=== PATIENT | female | born 1950 | race Caucasian/White ===

== ENCOUNTER 2019-10-22 07:23 | Outpatient (CLI) | payer MEDICARE, SELFPAY ==
--- NOTE | ~2019-10-22 | CT_ITS ---
EXAMINATION: CT brain wo con DATE: 10/22/2019 07:43 INDICATION: Memory loss. Frequent falls. TECHNIQUE: Computed tomography (CT) of the head was performed without intravenous contrast. The mA wa s adjusted according to patient size. Iterative reconstruction technique was employed. Exam dose: 60 5.33 mGy-cm total exam DLP. COMPARISON: None FINDINGS: No intracranial mass lesion or hemorrhage or cerebrovascular accident. No midline shift or mass effect. Normal ventricular size. No subdural or epidural hematoma. Bilateral internal carotid ar eduard calcifications. No subdural or epidural hematoma. No fracture or bone destruction of the cranial vault.. IMPRESSION: No acute intracranial finding or skull fracture Reviewed, dictated and finalized at [facility]. Reviewed, dictated and finalized at location A.
== END 2019-10-22 07:24 | disposition home or self-care (01) ==
LOC: ANHIMG 07:27
PROVIDERS: PCP Internal Medicine; Visit Provider Internal Medicine
DX: R41.3 Other amnesia (principal)
CPT/HCPCS: 70450

== ENCOUNTER 2019-11-04 07:48 | Outpatient (CLI) | payer MEDICARE, SELFPAY ==
--- NOTE | ~2019-11-04 | MM_ITS ---
EXAMINATION: MM screening denzel BI w norbert HISTORY: Screening mammogram TECHNIQUE: Craniocaudal and mediolateral oblique 3-D tomosynthesis images were obtained and synthetic 2-D images were generated. CAD analysis was submitted and interpreted. COMPARISON: 11/15/2016, 11/08/2014, 11/05/2013 bilateral digital screening mammogram examinations BREAST PARENCHYMAL COMPOSITION: There are scattered areas of fibroglandular density. FINDINGS: There is no evidence of suspicious mass, calcification, or architectural distortion to sugg est malignancy in either breast. There has been no suspicious interval change. IMPRESSION: 1. No mammographic evidence of malignancy. 2. Recommend routine screening mammography in one year. BI-RADS Category 1: Negative Reviewed, dictated and finalized at location A.
--- NOTE | ~2019-11-04 | DEXA_ITS ---
Bone Density Report Name: Winifred Rodriguez Age: 69 Sex: Female Ethnicity: White Date of : 1950 Indication: postmenopausal; parental hip fracture; height loss; prior fracture; asthma or emphysema; Referring Provider: Rodo, Eldon [place] Study: Bone densitometry was performed. Exam Date: November 04, 2019 Accession number: [id number] Bone Density: Region BMD T-score Z-score Classification AP Spine (L1, L2) 1.156 1.6 3.4 Normal Femoral Neck (Left) 0.751 -0.9 0.7 Normal Total Hip (Left) 0.939 0.0 1.3 Normal Total Hip Bilateral Avg 0.903 -0.3 1.0 Normal Femoral Neck (Right) 0.689 -1.4 0.2 Osteopenia Total Hip (Right) 0.865 -0.6 0.7 Normal World Health Organization criteria for BMD impression classify patients as: Normal (T-score at or above -1.0), Osteopenia (T-score between -1.0 and -2.5), or Osteoporosis (T-score at or below -2.5). 10-year Fracture Risk: FRAX not reported because: Prior hip or vertebral fracture Previous Exams: Region Exam Age BMD T-score BMD Change BMD Change Date g/cm2 vs Baseline vs Previous AP Spine(L1, L2) 11/04/2019 69 1.156 1.6 0.198(20.6%)# 0.198(20.6%)# 01/01/2012 61 0.959 -0.2 Total Hip(Left) 11/04/2019 69 0.939 0.0 -0.014(-1.4%)# -0.014(-1.4%)# 01/01/2012 61 0.952 0.1 Total Hip(Right) 11/04/2019 69 0.865 -0.6 -0.149(-14.7%) -0.149(-14.7%) 01/01/2012 61 1.014 0.6 *Denotes significance at 95% confidence level, LSC for AP Spine = 0.022 g/cm2, LSC for Total Hip = 0.027 g/cm2 Clinical Information Provided by Patient: Have had a previous hip or vertebral fracture Has had a low trauma fracture Parent has had a hip fracture Has used the following medications: Vitamin D, Calcium Has the following medical conditions: Asthma or Emphysema Patient maximum height was 67 Menopause Age: 52 Drinks caffeinated beverages Onset of menses at age 14 Number of children 0 Impression: The patient has low bone mass, based on the Right Femoral Neck T-score. The patient has risk factors, including: parental hip fracture, previous fracture. No significant bone loss was observed. Discussion: INCREASED RISK OF FRACTURE DUE TO HISTORY OF FRACTURE. The patient's previous fracture puts the patient at high risk of a future fracture. In untreated patients, the risk of osteoporotic fracture increases approximately two-fold for each 1.0 SD decrease in T-score. Low bone density is not the only risk factor for fracture; also co
== END 2019-11-04 07:49 | disposition home or self-care (01) ==
PROVIDERS: PCP Internal Medicine; Visit Provider Internal Medicine
DX: Z12.31 Encounter for screening mammogram for malignant neoplasm of breast (principal); Z78.0 Asymptomatic menopausal state; M85.851 Other specified disorders of bone density and structure, right thigh
CPT/HCPCS: 77063; 77067; 77080

== ENCOUNTER 2019-11-12 11:10 | Outpatient (CLI) | payer MEDICARE, SELFPAY ==
--- NOTE | ~2019-11-12 | MR_ITS ---
EXAMINATION: MR shoulder LT wo con DATE: 11/12/2019 12:01 INDICATION: Anterior left shoulder pain and limited range of motion. TECHNIQUE: Magnetic resonance imaging (MRI) of the left shoulder was performed without intravenous co ntrast. Sequences included axial PD-weighted FS FSE, coronal oblique PD-weighted FS FSE, coronal obli que T2-weighted FS FSE, sagittal PD-weighted FS FSE, and sagittal T1-weighted SE. COMPARISON: None. FINDINGS: Coracoacromial arch: The acromion undersurface is curved in morphology (type II). The coracoacromial ligament is normal. M oderate acromioclavicular osteoarthritis with subarticular cystic change at both sides of the joint s pace. There are also small inferiorly directed osteophytes at the lateral head of the right clavicle which indents the cephalad contour of the distal supraspinatus muscle. Rotator cuff: Moderate supraspinatus tendinopathy. There is attenuation of the tendon between 2 and 5 cm from the s uperior facet footplate with likely retracted medial tear margin identified approximately 2 cm medial to the level of the acromioclavicular joint consistent with a partial-thickness intrasubstance tear. There is a small amount of fluid and edema in the cephalad aspect of the supraspinatus muscle belly. Mild subscapularis and infraspinatus tendinopathy without discrete tear. The teres minor tendon is n ormal. No asymmetric rotator cuff muscle atrophy. Biceps tendon, glenoid labrum and glenohumeral cartilage: Long head of the biceps tendon is normal. Focal degenerative tearing at the 10:30-11:00 position of t he posterior superior glenoid labrum. Chondral ulceration without degenerative subarticular changes a t the apex of the right humeral head. Cartilage at the glenohumeral joint is otherwise unremarkable. Fluid: Physiologic amount of fluid in the glenohumeral joint and biceps tendon sheath. No loose osteochondra l bodies. Small amount of fluid in the subacromial/subdeltoid bursa consistent with mild bursitis. Bones: Normal marrow signal. No fracture or pathologic marrow replacing process. IMPRESSION: 1. 100 supraspinatus tendinopathy with partial-thickness intrasubstance tear occurring approximately 2 cm from the superior facet footplate. 2. Mild infraspinatus and subscapularis tendinopathy without discrete tear. 3. Mild glenohumeral osteoarthritis with regions of moderate grade chondral malacia at the apex of th e humeral head. 4. Degenerative tearing along a small region of the posterior superior glenoid labrum. 5. Moderate ac romioclavicular osteoarthritis. 6. Mild subacromial/subdeltoid bursitis. Reviewed, dictated and finalized at location A. IMPRESSION: 1. 100 supraspinatus tendinopathy with partial-thickness intrasubstance tear oc curring approximately 2 cm from the superior facet footplate. 2. Mild infraspinatus and subscapularis tendinopathy without discrete tear. 3. Mild glenohumeral osteoarthritis with regions of moderate grade chondral mal acia at the apex of the humeral head. 4. Degenerative tearing along a small region of the posterior superior glenoid labrum. 5. Moderate acromioclavicular osteoarthritis. 6. Mild subacromial/subdeltoid bursitis.
== END 2019-11-12 11:11 | disposition home or self-care (01) ==
PROVIDERS: PCP Internal Medicine; Visit Provider Nurse Practitioner Family
DX: M25.512 Pain in left shoulder (principal); S46.012A Strain of muscle(s) and tendon(s) of the rotator cuff of left shoulder, initial encounter; M65.812 Other synovitis and tenosynovitis, left shoulder; M19.012 Primary osteoarthritis, left shoulder; S43.432A Superior glenoid labrum lesion of left shoulder, initial encounter; M75.52 Bursitis of left shoulder
CPT/HCPCS: 73221

== ENCOUNTER → 2021-04-28 00:34 | Outpatient (CLI) | payer MEDICARE, SELFPAY ==
[2021-04-30 19:56] LABS: SARS-CoV-2 RNA PCR Negative
== END ==
PROVIDERS: PCP Internal Medicine
DX: J01.80 Other acute sinusitis (principal); Z20.822 Contact with and (suspected) exposure to COVID-19
CPT/HCPCS: C9803; U0003; U0005

== ENCOUNTER 2021-06-28 09:29 | Outpatient (CLI) | payer MEDICARE, SELFPAY ==
--- NOTE | ~2021-06-28 | XR_ITS ---
XR lumbar spine 6V w bending DATE: 06/28/2021 09:55 INDICATION: Sciatica TECHNIQUE: AP, lateral, coned lateral lumbosacral and bilateral oblique views. Flexion and extension lateral upright views. COMPARISON: None FINDINGS: Status post posterior surgical spinal fusion with pedicle screws and rods at L4-L5. There is osteopenia. There is severe degenerative disc disease at T12-L1 and moderately severe degenerative disc disease a t L1-2 and L2-3, mild degenerative disease at L4-5 and severe degenerative disc disease at L5-S1. There is grade 1 anterolisthesis at L4-5 and L5-S1. No significant instability on flexion or extensio n is evident. The sacroiliac joints are intact. Status post cholecystectomy. IMPRESSION: Status post posterior spinal fusion at L4-5 Multilevel prominent degenerative disc disease Grade 1 anterolisthesis at L4-5 and L5-S1 Osteopenia. Reviewed, dictated and finalized at location B. [employer]
== END 2021-06-28 09:30 | disposition home or self-care (01) ==
PROVIDERS: PCP Internal Medicine
DX: M53.86 Other specified dorsopathies, lumbar region (principal); M85.88 Other specified disorders of bone density and structure, other site; Z98.1 Arthrodesis status; M51.36 Other intervertebral disc degeneration, lumbar region
CPT/HCPCS: 72114

== ENCOUNTER 2022-03-10 16:57 | Emergency (ER) | payer MEDICARE, SELFPAY ==
[2022-03-10 17:07] VITALS: BP 145/100; PULSE 88; RESP 18; TEMP 37.3; O2SAT 100
--- NOTE | 2022-03-10 17:34 | ED.URI ---
HPI - URI/Sore Throat General Chief Complaint: Upper Respiratory Infection Stated Complaint: SOB, Wheezing, Cough Time Seen by Provider: 03/10/22 17:15 Source: patient Mode of arrival: ambulatory Limitations: no limitations History of Present Illness HPI Narrative: Ms. Rodriguez is a 71-year-old female patient presenting to the clinic today with complaints of shortness of breath, cough, wheezing x2 days. She reports that her symptoms started on Friday but she did not call her PCP as her symptoms got worse on Friday. States that every year she gets this then easily give her prednisone, albuterol, and a Z-Ollie. She denies any fever or chills currently. She does have a very wet congested cough MD elicited complaint: sore throat and nasal congestion Related Data Home Medications Medication Instructions Recorded Confirmed atorvastatin 20 mg tablet 05/27/19 05/08/21 duloxetine 60 mg capsule,delayed mg PO 05/27/19 05/08/21 release levothyroxine 150 mcg tablet 05/27/19 05/08/21 omeprazole 20 mg capsule,delayed 05/27/19 05/08/21 release pregabalin 50 mg capsule (Lyrica) 05/27/19 05/08/21 albuterol sulfate 90 mcg/actuation 1 puff inhalation Q4H PRN 10/08/19 05/08/21 aerosol inhaler (Ventolin HFA) ascorbate calcium (vitamin C) 500 500 mg PO BID 10/08/19 05/08/21 mg tablet mecobalamin (vitamin B12) 1,000 1,500 mcg PO DAILY 10/08/19 05/08/21 mcg chewable tablet celecoxib 200 mg capsule mg PO 11/05/19 05/08/21 cholecalciferol (vitamin D3) 25 20 mcg PO DAILY 11/05/19 05/08/21 mcg (1,000 unit) tablet diazepam 5 mg tablet (Valium) 10 mg PO ONCE PRN 11/05/19 05/08/21 multivitamin (Daily Multi-Vitamin 2 tablet PO DAILY 11/05/19 05/08/21 tablet) dulaglutide 0.75 mg/0.5 mL 0.75 mg subcut WEEKLY 05/08/21 05/08/21 [facility] ezetimibe 10 mg-rosuvastatin 10 mg 1 tablet PO DAILY 05/08/21 05/08/21 tablet Allergies Allergy/AdvReac Type Severity Reaction Status Date / Time clindamycin Allergy Unknown n/a Verified 03/10/22 17:28 codeine Allergy Unknown n/a Verified 03/10/22 17: Review of Systems Review of Systems: Pertinent positives per HPI. Patient denies any fever, chills, rash, headache, visual changes, dizziness, runny nose, sore throat, shortness of breath, chest pain, palpitations, nausea, vomiting, diarrhea, constipation, abdominal pain, or any urinary issues. [facility] Past Medical History Medical History Acute pain of both knees Acute pain of right shoulder Adhesive capsulitis of right shoulder Allergic rhinitis, unspecified Arthritis Body mass index (bmi) 36.0-36.9, adult (06/18/17) Body mass index (BMI) 45.0-49.9, adult (03/18/16) Complete tear of right rotator cuff Depression DJD of AC (acromioclavicular) joint Fibromyalgia muscle pain Gastroesophageal reflux disease Hypothyroidism MURIEL (obstructive sleep apnea) Osteoporosis Other chronic pain Pain in left knee Pes anserine bursitis Primary osteoarthritis of left knee Primary osteoarthritis of right knee Restless leg syndrome Rotator cuff tear Rotator cuff tendinitis Surgical History Surgical History History of cholecystectomy History of spinal fusion Presence of left artificial knee joint Presence of right artificial knee joint Family History Family History Mother Carcinoma of colon, Onset Age: 86 Father , COPD,Congestive heart failure COPD (chronic obstructive pulmonary disease) Congestive heart failure (CHF) Arthritis Other Cerebrovascular accident Family history of alcoholism Social History Social History Smoking status: Never smoker Second hand tobacco smoke exposure: Yes Alcohol intake: current Comments At the time o
== END 2022-03-10 17:40 | disposition home or self-care (01) ==
PROVIDERS: Emergency Provider Nurse Practitioner Family; PCP Internal Medicine
DX: J40 Bronchitis, not specified as acute or chronic (principal); M79.7 Fibromyalgia; K21.9 Gastro-esophageal reflux disease without esophagitis; E03.9 Hypothyroidism, unspecified; M17.0 Bilateral primary osteoarthritis of knee; G25.81 Restless legs syndrome; G47.33 Obstructive sleep apnea (adult) (pediatric); Z96.653 Presence of artificial knee joint, bilateral
CPT/HCPCS: 99213; G0463

== ENCOUNTER 2022-08-13 10:26 | Emergency (ER) | payer MEDICARE, SELFPAY ==
--- NOTE | 2022-08-13 10:29 | ED.URI ---
HPI - URI/Sore Throat General Chief Complaint: Ear Stated Complaint: ear pain Time Seen by Provider: 08/13/22 10:37 Source: patient, RN notes reviewed and old records reviewed Mode of arrival: ambulatory Limitations: no limitations History of Present Illness HPI Narrative: 72-year-old female presents to the [facility] with complaints of a right ear pain. Patient states that she was cleaning her ear out with a Q-tip on Friday, tripped and the Q-tip when in further. States she has been having pain and thick drainage from the right ear since. Onset (ago): day(s) (2) Related Data Home Medications Medication Instructions Recorded Confirmed atorvastatin 20 mg tablet 05/27/19 05/08/21 duloxetine 60 mg capsule,delayed mg PO 05/27/19 05/08/21 release levothyroxine 150 mcg tablet 05/27/19 05/08/21 omeprazole 20 mg capsule,delayed 05/27/19 05/08/21 release pregabalin 50 mg capsule (Lyrica) 05/27/19 05/08/21 albuterol sulfate 90 mcg/actuation 1 puff inhalation Q4H PRN 10/08/19 05/08/21 aerosol inhaler (Ventolin HFA) ascorbate calcium (vitamin C) 500 500 mg PO BID 10/08/19 05/08/21 mg tablet mecobalamin (vitamin B12) 1,000 1,500 mcg PO DAILY 10/08/19 05/08/21 mcg chewable tablet celecoxib 200 mg capsule mg PO 11/05/19 05/08/21 cholecalciferol (vitamin D3) 25 20 mcg PO DAILY 11/05/19 05/08/21 mcg (1,000 unit) tablet diazepam 5 mg tablet (Valium) 10 mg PO ONCE PRN 11/05/19 05/08/21 multivitamin (Daily Multi-Vitamin 2 tablet PO DAILY 11/05/19 05/08/21 tablet) ezetimibe 10 mg-rosuvastatin 10 mg 1 tablet PO DAILY 05/08/21 05/08/21 tablet Allergies Allergy/AdvReac Type Severity Reaction Status Date / Time clindamycin Allergy Unknown n/a Verified 03/10/22 17:28 codeine Allergy Unknown n/a Verified 03/10/22 17:28 nickel Allergy Unknown Verified 08/13/22 10:38 Review of Systems Review of Systems: All systems reviewed & are unremarkable except as noted in HPI and below Constitutional: Constitutional: Reports no additional constitutional complaints Eyes: Eyes: Reports no additional eye complaints ENT: Reports as per HPI and Reports otalgia (Right ear) Cardiovascular: Cardiovascular: Reports no additional cardiovascular complaints, Denies chest pain and Denies dyspnea Respiratory: Respiratory: Reports no additional respiratory complaints, Denies chest congestion, Denies cough and Denies dyspnea Gastrointestinal: Gastrointestinal: Reports no additional gastrointestinal complaints, Denies abdominal pain, Denies nausea and Denies vomiting Musculoskeletal: Musculoskeletal: Reports no additional musculoskeletal complaints Integumentary/Breasts: Skin/Breast: Reports system reviewed and no additional complaints, except as docu Neurologic: Reports system reviewed and no additional complaints, except as documented Psychiatric: Psychiatric: Reports no additional psychiatric complaints Allergic/Immunologic: Allergic/Immunologic: Reports no additional allergic/immunologic complaints PMFSH Past Medical History Medical History Acute pain of both knees Acute pain of right shoulder Adhesive capsulitis of right shoulder Allergic rhinitis, unspecified Arthritis Body mass index (bmi) 36.0-36.9, adult (06/18/17) Body mass index (BMI) 45.0-49.9, adult (03/18/16) Complete tear of right rotator cuff Depression DJD of AC (acromioclavicular) joint Fibromyalgia muscle pain Gastroesophageal reflux disease Hypothyroidism MURIEL (obstructive sleep apnea) Osteoporosis Other chronic pain Pain in left knee Pes anserine bursitis Primary osteoarthritis of left knee Primary osteoarthritis of right knee Restless leg syndrome Rotator cuff tear Rotator cuff tendinitis Surgical History Surgical History History of cholecystectomy History of spinal fusion Presence of left artificial knee joint Presence of right artificia
[2022-08-13 10:35] VITALS: BP 142/70; PULSE 80; RESP 16; TEMP 37; O2SAT 99
== END 2022-08-13 10:56 | disposition home or self-care (01) ==
PROVIDERS: Emergency Provider Nurse Practitioner; PCP Internal Medicine
DX: S09.21XA Traumatic rupture of right ear drum, initial encounter (principal); W22.8XXA Striking against or struck by other objects, initial encounter; H61.22 Impacted cerumen, left ear; M79.7 Fibromyalgia; K21.9 Gastro-esophageal reflux disease without esophagitis; E03.9 Hypothyroidism, unspecified; M81.0 Age-related osteoporosis without current pathological fracture; M17.0 Bilateral primary osteoarthritis of knee; G25.81 Restless legs syndrome; Z96.653 Presence of artificial knee joint, bilateral
CPT/HCPCS: 99213; G0463

== ENCOUNTER 2022-11-18 07:39 | Outpatient (CLI) | payer MEDICARE, SELFPAY ==
--- NOTE | ~2022-11-18 | MM_ITS ---
EXAMINATION: MM screening denzel BI w norbert HISTORY: Screening mammogram TECHNIQUE: Craniocaudal and mediolateral oblique 3-D tomosynthesis images were obtained and synthetic 2-D images were generated. CAD analysis was submitted and interpreted. COMPARISON: 11/04/2019, 11/15/2016, 11/08/2014 bilateral screening mammogram examinations BREAST PARENCHYMAL COMPOSITION: There are scattered areas of fibroglandular density. FINDINGS: Minimal calcification including arterial. There is no evidence of suspicious mass, calcific ation, or architectural distortion to suggest malignancy in either breast. There has been no suspicio us interval change. IMPRESSION: 1. No mammographic evidence of malignancy. 2. Recommend routine screening mammography in one year. BI-RADS Category 2: Benign finding(s). Reviewed, dictated and finalized at location C.
== END 2022-11-18 07:40 | disposition home or self-care (01) ==
LOC: ANHIMG 07:43
PROVIDERS: PCP Internal Medicine; Visit Provider Internal Medicine
DX: Z12.31 Encounter for screening mammogram for malignant neoplasm of breast (principal)
CPT/HCPCS: 77063; 77067

== ENCOUNTER 2024-02-11 08:21 | Emergency (ER) | payer MEDICARE, SELFPAY ==
[2024-02-11 08:31] VITALS: BP 96/81; PULSE 82; RESP 20; TEMP 36.5; O2SAT 98
--- NOTE | 2024-02-11 08:31 | ED.SKABFB ---
HPI - Skin/Abscess/Foreign Bdy General Chief complaint: Skin/Abscess/Foreign Body Stated complaint: Rash Time Seen by Provider: 02/11/24 08:32 Source: patient Mode of arrival: ambulatory Limitations: no limitations History of Present Illness HPI narrative: Patient is a 73-year-old female who presents with red raw rash under stomach fold on right side. Patient has been on Mounjaro and lost over 10 lb. Patient has used [id number] ointment with no relief. Reports it is very tender to touch. Related Data Home Medications Medication Instructions Recorded Confirmed atorvastatin 20 mg tablet 20 mg PO DAILY 05/27/19 02/11/24 duloxetine 60 mg capsule,delayed 60 mg PO DAILY 05/27/19 02/11/24 release levothyroxine 150 mcg tablet 150 mcg PO DAILY 05/27/19 02/11/24 omeprazole 20 mg capsule,delayed 20 mg PO DAILY 05/27/19 02/11/24 release pregabalin 50 mg capsule (Lyrica) 50 mg PO DAILY 05/27/19 02/11/24 ascorbate calcium (vitamin C) 500 500 mg PO BID 10/08/19 02/11/24 mg tablet mecobalamin (vitamin B12) 1,000 1,500 mcg PO DAILY 10/08/19 02/11/24 mcg chewable tablet celecoxib 200 mg capsule 200 mg PO DAILY 11/05/19 02/11/24 cholecalciferol (vitamin D3) 25 20 mcg PO DAILY 11/05/19 02/11/24 mcg (1,000 unit) tablet diazepam 5 mg tablet (Valium) 10 mg PO ONCE PRN Anxiety 11/05/19 02/11/24 multivitamin (Daily Multi-Vitamin 2 tablet PO DAILY 11/05/19 02/11/24 tablet) ezetimibe 10 mg-rosuvastatin 10 mg 1 tablet PO DAILY 05/08/21 02/11/24 tablet bupropion HCl 150 mg tablet,12 hr 150 mg PO BID 02/11/24 02/11/24 sustained-release metoprolol succinate 25 mg 25 mg PO DAILY 02/11/24 02/11/24 tablet,extended release 24 hr tirzepatide 2.5 mg/0.5 mL 2.5 mg subcut WEEKLY 02/11/24 02/11/24 subcutaneous pen injector (Mounjaro) Allergies Allergy/AdvReac Type Severity Reaction Status Date / Time clindamycin Allergy Unknown n/a Verified 02/11/24 08:24 codeine Allergy Unknown n/a Verified 02/11/24 08:24 nickel Allergy Unknown Verified 02/11/24 08:24 Review of Systems Review of Systems: All systems reviewed & are unremarkable except as noted in HPI and below Constitutional: Constitutional: Denies body ache(s), Denies chills, Denies fatigue, Denies fever(s), Denies headache(s), Denies malaise and Denies weakness Eyes: Eyes: Denies blurry vision, Denies irritation and Denies loss of vision ENT: Denies otalgia, Denies headache(s), Denies nasal discharge, Denies sinus pain and Denies sore throat Cardiovascular: Cardiovascular: Denies chest pain, Denies irregular heart rhythm and Denies dyspnea Respiratory: Respiratory: Denies dyspnea Gastrointestinal: Gastrointestinal: Denies abdominal pain, Denies melena, Denies hematochezia, Denies diarrhea, Denies nausea and Denies vomiting Musculoskeletal: Musculoskeletal: Denies back pain, Denies myalgias and Denies arthralgias Integumentary/Breasts: Skin/Breast: Denies pruritus, Reports erythema, Reports rash, Reports skin pain and Reports skin ulcer Neurologic: Denies headache(s), Denies loss of vision and Denies weakness Psychiatric: Psychiatric: Reports no additional psychiatric complaints Endocrine: Endocrine: Denies fatigue PMFSH Past Medical History Medical History Acute pain of both knees Acute pain of right shoulder Adhesive capsulitis of right shoulder Allergic rhinitis, unspecified Arthritis Body mass index (bmi) 36.0-36.9, adult (06/18/17) Body mass index (BMI) 45.0-49.9, adult (03/18/16) Complete tear of right rotator cuff Depression DJD of AC (acromioclavicular) joint Fibromyalgia muscle pain Gastroesophageal reflux disease Hypothyroidism MURIEL (obstructive sleep apnea) Osteoporosis Other chronic pain Pain in left knee Pes anserine bursitis Primary osteoarthritis of left knee Primary osteoarthritis of right knee Restless leg syndrome Rotator cuff tear Rotator cuff tendinitis Surgical Histor
== END 2024-02-11 08:55 | disposition home or self-care (01) ==
PROVIDERS: Emergency Provider Nurse Practitioner Family; PCP Internal Medicine
DX: B37.2 Candidiasis of skin and nail (principal); M79.7 Fibromyalgia; K21.9 Gastro-esophageal reflux disease without esophagitis; E03.9 Hypothyroidism, unspecified; M81.0 Age-related osteoporosis without current pathological fracture; M17.0 Bilateral primary osteoarthritis of knee
CPT/HCPCS: 99213; G0463

== ENCOUNTER 2024-05-15 09:50 | Emergency (ER) | payer MEDICARE, SELFPAY ==
--- NOTE | ~2024-05-15 | CT_ITS ---
EXAMINATION: CT brain wo con DATE: 05/15/2024 11:46 INDICATION: Closed head injury TECHNIQUE: Computed tomography (CT) of the head was performed without intravenous contrast. The mA wa s adjusted according to patient size. Iterative reconstruction technique was employed. Exam dose: 68 1.00 mGy-cm total exam DLP. COMPARISON: 10/22/2019 CT brain FINDINGS: No intracranial mass lesion or hemorrhage or cerebrovascular accident, midline shift or mas s effect. Bilateral carotid siphon internal carotid artery calcification. There is nonspecific diminished atten uation in the cerebral white matter, likely due to chronic small vessel ischemic changes. No subdural or epidural hematoma is detected. No fracture or apparent destruction of the cranial vault. The paranasal sinuses and mastoid air cells are normally developed and aerated IMPRESSION: Cerebral atherosclerosis and chronic small vessel ischemic changes or white matter No skull fracture or acute intracranial finding Reviewed, dictated and finalized at [facility]. Reviewed, dictated and finalized at [facility]. CONSULTANT
[2024-05-15 09:58] VITALS: BP 136/78; PULSE 86; RESP 20; TEMP 36.6; O2SAT 100
--- NOTE | 2024-05-15 11:29 | ED.HEATRA ---
HPI - Head Injury General Chief complaint: Head Injury Stated complaint: fall, head injury Time Seen by Provider: 05/15/24 11:24 History of Present Illness HPI Narrative: 73-year-old female presenting to the emergency room with a closed head injury. She slipped and fell on wet tile in her kitchen. She fell backwards on to the tile and sustained a laceration to her posterior occipital scalp. She does not lose consciousness, denies taking any blood thinner medications. Denies any headache or vision changes. No nausea, vomiting, altered mental status. She was otherwise in her normal state of health. She states it was a purely mechanical fall and she remember the events leading up to, during and after the fall. Patient is up-to-date on tetanus as far she knows, did have some bleeding on scene that is well controlled with direct pressure. Related Data Home Medications ?Medication ?Instructions ?Recorded ?Confirmed ?Last Taken ?Type atorvastatin 20 mg tablet 20 mg PO DAILY 05/27/19 02/11/24 Unknown History duloxetine 60 mg capsule,delayed 60 mg PO DAILY 05/27/19 02/11/24 Unknown History release levothyroxine 150 mcg tablet 150 mcg PO DAILY 05/27/19 02/11/24 Unknown History omeprazole 20 mg capsule,delayed 20 mg PO DAILY 05/27/19 02/11/24 Unknown History release pregabalin 50 mg capsule (Lyrica) 50 mg PO DAILY 05/27/19 02/11/24 Unknown History ascorbate calcium (vitamin C) 500 500 mg PO BID 10/08/19 02/11/24 Unknown History mg tablet mecobalamin (vitamin B12) 1,000 1,500 mcg PO DAILY 10/08/19 02/11/24 Unknown History mcg chewable tablet celecoxib 200 mg capsule 200 mg PO DAILY 11/05/19 02/11/24 Unknown History cholecalciferol (vitamin D3) 25 20 mcg PO DAILY 11/05/19 02/11/24 Unknown History mcg (1,000 unit) tablet diazepam 5 mg tablet (Valium) 10 mg PO ONCE PRN Anxiety 11/05/19 02/11/24 Unknown History multivitamin (Daily Multi-Vitamin 2 tablet PO DAILY 11/05/19 02/11/24 Unknown History tablet) ezetimibe 10 mg-rosuvastatin 10 mg 1 tablet PO DAILY 05/08/21 02/11/24 Unknown History tablet bupropion HCl 150 mg tablet,12 hr 150 mg PO BID 02/11/24 02/11/24 Unknown History sustained-release metoprolol succinate 25 mg 25 mg PO DAILY 02/11/24 02/11/24 Unknown History tablet,extended release 24 hr tirzepatide 2.5 mg/0.5 mL 2.5 mg subcut WEEKLY 02/11/24 02/11/24 Unknown History subcutaneous pen injector (Mounjaro) Allergies Allergy/AdvReac Type Severity Reaction Status Date / Time clindamycin Allergy Unknown n/a Verified 05/15/24 11:46 codeine Allergy Unknown n/a Verified 05/15/24 11:46 nickel Allergy Unknown Verified 05/15/24 11:46 Review of Systems Review of Systems: As reviewed above in [facility] Past Medical History Medical History Rotator cuff tendinitis Arthritis Osteoporosis Depression Hypothyroidism Rotator cuff tear Acute pain of both knees Acute pain of right shoulder Adhesive capsulitis of right shoulder Allergic rhinitis, unspecified Body mass index (bmi) 36.0-36.9, adult (06/18/17) Body mass index (BMI) 45.0-49.9, adult (03/18/16) Complete tear of right rotator cuff DJD of AC (acromioclavicular) joint Fibromyalgia muscle pain Gastroesophageal reflux disease MURIEL (obstructive sleep apnea) Other chronic pain Pain in left knee Pes anserine bursitis Primary osteoarthritis of left knee Primary osteoarthritis of right knee Restless leg syndrome Surgical History Surgical History History of spinal fusion History of cholecystectomy Presence of left artificial knee joint Presence of right artificial knee joint Family History Family History Mother Carcinoma of colon, Onset Age: 86 Father , COPD,Congestive heart failure COPD (chronic obstructive pulmonary disease) Congestive heart failure (CHF) Arthritis Other Cerebrovascular accident Family history of alcoholism Social History Social History Smoking status: Never smoker Second hand tobacco smoke exposure: Yes Alcohol intake: current Exam Narrative: GENERAL: [Well-appearing, well-nourished, and in no acute distress.] HEAD: Normocephalic, posterior occipital scalp does have a 2.5 cm linear laceration that goes to the skull, no active bleeding or depressed skull fracture, no significant tenderness with palpation. EYES: [PERRLA and EOMI.] ENT: Nares clear, no rhinorrhea or epistaxis. Mucous membranes moist. NECK: Supple. CHEST: [Clear to auscultation. No respiratory distress.] HEART: [Regular rate and rhythm]. No murmur heard. [Normal peripheral pulses.] ABDOMEN: [Soft, nondistended], [nontender], [No rigidity or guarding] EXTREMITIES: Normal range of motion. [No edema.] SKIN: Warm, dry, no rash. NEURO: [No focal deficits]. Alert and oriented [x3.] PSYCH: [Normal mood and affect.] Course Vital Signs Vital signs: Vital Signs Temperature 36.6 C 05/15/24 09:58 Pulse Rate 86 05/15/24 09:58 Respiratory Rate 20 05/15/24 09:58 Blood Pressure 136/78 05/15/24 09:58 Pulse Oximetry 100 05/15/24 09:58 Oxygen Delivery Room Air 05/15/24 09:58 Temperature 36.7 C 05/15/24 13:10 Pulse Rate 72 05/15/24 13:10 Respiratory Rate 17 05/15/24 13:10 Blood Pressure 136/87 05/15/24 13:10 Pulse Oximetry 98 05/15/24 13:10 Oxygen Delivery Room Air 05/15/24 09:58 Procedures Laceration Laceration 1: Date: 05/15/24 Time: 11:55 Site: scalp Size (cm): 2.5 Description: linear Depth: involves muscle layer Local Anesthetic: other anesthetic (Topical let gel) Amount of anesthesia used (mL): 3 Pre-repair: wound explored and irrigated extensively ====== Skin Level ====== Skin layer closed with: sophie Number of sutures: 9 ====== Subcutaneous Layer ====== ====== Muscle Layer ====== ====== Tendon Layer ====== Dressing: Pressure dressing MDM - Head Injury MDM Narrative Medical decision making narrative: 73-year-old female presenting for evaluation after closed head injury. She fell on slippery wet tile landing backwards onto her scalp. She has stated a 2.5 cm scalp laceration that requires repair with sophie. Scalp laceration goes go to the skull but there is no evidence of any depressed skull fracture any tenderness with palpation. No active bleeding. She did not lose consciousness, not any blood thinner medications. Given her age and elevated risk factors with the mechanism she does meet Alder head CT criteria at this time. CT head without contrast was ordered to assess for any kind intracranial process or skull fracture. Less likely given patient's well appearance and clinical exam. She has no focal deficits. Normal mentation normal vital signs. Let gel was applied to her posterior occipital scalp in her laceration was closed primarily with sophie prior to discharge home after negative imaging. Patient was provided return precautions and instructions on follow-up for staple removal and care. CT scan was independently reviewed and also interpreted by Radiology. No acute intracranial findings, no skull fracture. Chronic small-vessel disease. Patient's wound was repaired with hemostasis via sophie. She is stable and comfortable with discharge at this time. Given return precautions and instructions for follow-up for wound care. Differential Diagnosis Differential diagnosis: Likely concussion without loss of consciousness, epidural hematoma, closed head injury, subarachnoid hematoma, postconcussion syndrome, subdural hematoma and other Medical Records Attestation: I reviewed the patient's medical records. Imaging Data Attestation: I personally reviewed and interpreted this imaging study as follows: My impression: Impressions Head CT 05/15/24 11:48 IMPRESSION: Cerebral atherosclerosis and chronic small vessel ischemic changes or white matter No skull fracture or acute intracranial finding Discharge Plan Discharge Clinical Impression: CHI (closed head injury), Laceration of occipital region of scalp Patient Disposition: Home, Self-Care Condition: Stable Instructions: Head Injury (ED), Staple Care (ED), Head Laceration (ED) Additional Instructions: Follow-up in 10 days for suture removal. Return with any new or worsening concerns at any time. Apply direct pressure if there is any oozing or bleeding from the area, watch for any signs of infection. Follow-up with your regular primary care provider, return here, urgent care or your PCP for suture removal and wound check. Patient Language: Maltese Prescriptions: No Action atorvastatin 20 mg tablet 20 mg PO DAILY levothyroxine 150 mcg tablet 150 mcg PO DAILY omeprazole 20 mg capsule,delayed release(DR/EC) 20 mg PO DAILY duloxetine 60 mg capsule,delayed release(DR/EC) 60 mg PO DAILY pregabalin [Lyrica] 50 mg capsule 50 mg PO DAILY celecoxib 200 mg capsule 200 mg PO DAILY Patient Comments: Not taking as of provided medication list 11/04/19 Rx Instructions: Not taking as of provided medication list 11/04/19 bupropion HCl 150 mg tablet sustained-release 12 hr 150 mg PO BID metoprolol succinate 25 mg tablet extended release 24 hr 25 mg PO DAILY Mounjaro 2.5 mg/0.5 mL Pen Injector 2.5 mg SUBCUT WEEKLY Rx Instructions: for 4 weeks clotrimazole 1 % cream 1 applic topical BID 14 Days Qty: 30 0RF fluconazole 150 mg tablet 150 mg PO ONCE Qty: 2 0RF Rx Instructions: Take one today and one in a week mecobalamin (vitamin B12) 1,000 mcg tablet,chewable 1,500 mcg PO DAILY ascorbate calcium (vitamin C) 500 mg tablet 500 mg PO BID multivitamin [Daily Multi-Vitamin] Tablet 2 tablet PO DAILY cholecalciferol (vitamin D3) 25 mcg (1,000 unit) tablet 20 mcg PO DAILY ezetimibe-rosuvastatin 10-10 mg tablet 1 tablet PO DAILY diazepam [Valium] 5 mg tablet 10 mg PO ONCE PRN (Reason: Anxiety) Rx Instructions: Take 1 tab PO 1 hour before the procedure if no effect take the 2nd tab 30-45 mins after the first pill taken. ropinirole 2 mg tablet 2 mg PO QHS 90 Days Qty: 90 3RF Rx Instructions: Take 1 tablet by mouth with the 0.5mg tab 1-2 hours before bed. ropinirole 0.5 mg tablet See Rx Instructions .ROUTE .COMPLEX Qty: 90 3RF Dose Instruction: TAKE 1 TABLET BY MOUTH DAILY 1 TO 2 HOURS BEFORE BEDTIME WITH THE 2MG TABLET FOR A TOTAL DAILY DOSE OF 2.5MG Rx Instructions: TAKE 1 TABLET BY MOUTH DAILY 1 TO 2 HOURS BEFORE BEDTIME WITH THE 2MG TABLET FOR A TOTAL DAILY DOSE OF 2.5MG Follow-up/Referrals: Rodo,Eldon Canchola MD [Primary Care Provider] -
[2024-05-15] MEDS: LIDOCAINE, EPINEPHRINE, TETRACAINE VISCOUS SOLN 3 ML TOPICAL (11:51)
[2024-05-15 13:10] VITALS: BP 136/87; PULSE 72; RESP 17; TEMP 36.7; O2SAT 98
--- OUTSIDE RECORDS SUMMARY | 2024-05-22 16:58 | XMS_ITS | Encounter Summary ---
Author Organization [facility] Address [address] [place] [address] Care Team Providers Care Crm Coordinator Name Role Phone Eldon Koehler MD Primary Care Provider [phone] Encounter Details Date Type Department Care Team (Late st Contact Info) Description 11/18/2023 Orders Only [facility] Primary Care [place] [id number] [facility] [address] [place] [address] Provider, Abstract NO ADDRESS ON FILE Social History Tobacco Use Types Packs/Day Years Used Date Smoking Tobacco: Never Smokeless Tobacco: Never Alcohol Use Standard Drinks/Week Comments Never 0 (1 standard drink = 0.6 oz pur e alcohol) Social Connections Answer Date Recorded In a typical week, how many times do you talk on the phone with family, friends, or neighbors? More than three times a week 04/30/2019 How often do you get togethe r with friends or relatives? More than three times a week 04/30/2019 How often do you attend [facility] or amish services? More than 4 times per year 04/30/2019 Do you belong to any clubs o r organizations such as presybeterian groups, unions, fraternal or athletic groups, or school groups? No 04/30/2019 How often do you attend meet ings of the clubs or organizations you belong to? Never 04/30/2019 Are you , , di vorced, , never , or living with a partner? 04/30/2019 Financial Resource Strain Answer Date R ecorded How hard is it for you to pa y for the very basics like food, housing, medical care, and heating? Not hard at all 08/08/2021 Food Insecurity Answer Date Recorded In the past 12 months, have you worried that your food would run out before you had money to buy more? Never true 08/08/2021 In the past 12 months, did y ou run out of food and didn't have money to buy more? Never true 08/08/2021 Transportation Needs Answer Date Record ed In the past 12 months, has l ack of transportation kept you from medical appointments or from getting medications? No 08/08/2021 Lack of Transportation (Non-Medical) Not on file 08/08/2021 Sex and Gender Information Value Date Recorded Sex Assigned at Not on file Gender Identity Not on file Sexual Orientation Not on file documented as of this encounter Plan of Treatment Upcoming Encounters Date Type Department Care Team (Late st Contact Info) Description 07/27/2024 9:40 AM CDT Office Visit [facility] Primary Care [facility] [address] [place] [address] [address] [place] [address] Eldon Koehler MD [address] [facility] [address] [place] [address] documented as of this encounter Procedures Procedure Name Priority Date/Time Associated Diagnosis Comments EYE EXAM Routine 11/10/2023 3:13 PM CDT documented in this encounter Results * EYE EXAM (11/10/2023 3:13 PM CDT) Abstract Provider OPHTH OTHER [facility] INTERNAL MED [facility] CLIA# [id number] [address] [place] [address] [address] [place] [address] documented in this encounter Visit Diagnoses Not on filedocumented in this encounter Care Teams Crm Coordinator Relationship Specialty Start Date End Date Eldon Koehler MD PCP - General 10/06/07 documented as of this encounter
--- OUTSIDE RECORDS SUMMARY | 2024-05-22 16:58 | XMS_ITS | Encounter Summary ---
Author Organization [facility] Address [address] [place] [address] Care Team Providers Care Special Events Driver Name Role Phone Eldon Koehler MD Primary Care Provider [phone] Reason for Visit * Reason Onset Date Comments Medication Refill 12/24/2022 Encounter Details Date Type Department Care Team (Late st Contact Info) Description 12/24/2022 Refill [facility] Internal Medicine [address] [id number] Adriana Rubio, ANP [address] [facility] [address] [place] [id number] Fibromyalgia Social History Tobacco Use Types Packs/Day Years [...] week 04/30/2019 How often do you attend chur ch or anabaptist services? More than 4 times per year 04/30/2019 Do you belong to any clubs o r organizations such as yazidi groups, unions, fraternal or athletic groups, or [...] on file documented as of this encounter Miscellaneous Notes * Telephone Encounter - Stefanie Roca NP - 12/24/2022 3:17 PM CDT Requesting refill. pregabalin (LYRICA) 50 mg Capsule TAKE 1 CAPSULE BY MOUTH EVERY 12 HOURS Dispense: 180 Capsule, Refills: 3 ordered 02/07/2022 -- Eldon Koehler MD Last OV 07/09/2022 documented in this encounter Plan of Treatment Upcoming Encounters Date Type Department Care Team (Late st Contact Info) Description 07/27/2024 9:40 AM CDT Office Visit [facility] Primary Care [place] [place] [address] Eldon Koehler MD [address] [place] [address] [address] [place] [phone] documented as of this encounter Visit Diagnoses Diagnosis Fibromyalgia Mylagia and myositis, unspecified documented in this encounter Care Teams Special Events Driver Relationship Specialty Start Date End Date Eldon Koehler MD PCP - General 10/06/07 documented as of this encounter
--- OUTSIDE RECORDS SUMMARY | 2024-05-22 16:58 | XMS_ITS | Encounter Summary ---
Author Organization [facility] Address [address] [place] [address] Care Team Providers Care Warpman Name Role Phone Eldon Koehler MD Primary Care Provider [phone] Reason for Visit * Reason Comments Med Refill Encounter Details Date Type Department Care Team (Late st Contact Info) Description 12/04/2023 Refill [facility] Primary Care [facility] [address] [facility] [address] [place] [address] Stefanie Roca, JOSEPH [address] [place] [address] Other hyperlipidemia Social History Tobacco Use Types Packs/Day Years Used Date Smoking Tobacco: Never Passive Smoke Exposure: Never Smokeless Tobacco: Never Alcohol Use Standard [...] often do you attend chur ch or sikhism services? More than 4 times per year 04/30/2019 Do you belong to any clubs o r organizations such as judaism groups, unions, fraternal or athletic groups, or [...] Description 07/27/2024 9:40 AM CDT Office Visit [facility] Primary Care [address] [address] Eldon Koehler MD [address] [place] [address] documented as of this encounter Visit Diagnoses Diagnosis Other hyperlipidemia documented in this encounter Care Teams Warpman Relationship Specialty Start Date End Date Eldon Koehler MD PCP - General 10/06/07 documented as of this encounter
--- OUTSIDE RECORDS SUMMARY | 2024-05-22 16:58 | XMS_ITS | Encounter Summary ---
Author Organization [facility] Address [address] [place] [address] Care Team Providers Care Shipper Name Role Phone Eldon Koehler MD Primary Care Provider [phone] Encounter Details Date Type Department Care Team (Late st Contact Info) Description 01/30/2023 External Device Data STL ABSTRACTION Provider, Abstract NO ADDRESS ON FILE Social [...] 04/30/2019 How often do you attend chur or uatsdin services? More than 4 times per year 04/30/2019 Do you belong to any clubs o r organizations such as uatsdin groups, unions, fraternal or athletic groups, or [...] Description 07/27/2024 9:40 AM CDT Office Visit [facility] Primary Care [place] [place] [address] Eldon Koehler MD [address] [place] [address] [place] [address] documented as of this encounter Visit Diagnoses Not on filedocumented in this encounter Care Teams Shipper Relationship Specialty Start Date End Date Eldon Koehler MD PCP - General 10/06/07 documented as of this encounter
--- OUTSIDE RECORDS SUMMARY | 2024-05-22 16:58 | XMS_ITS | Encounter Summary ---
Author Organization [facility] Address [address] [place] [address] Care Team Providers Care Metal Melter Name Role Phone Eldon Koehler MD Primary Care Provider [phone] Encounter Details Date Type Department Care Team (Late st Contact Info) Description 01/07/2024 External Device Data STL ABSTRACTION Provider, Abstract [...] often do you attend chur ch or adventism services? More than 4 times per year 04/30/2019 Do you belong to any clubs o r organizations such as hindu groups, unions, fraternal or athletic groups, or [...] Description 07/27/2024 9:40 AM CDT Office Visit [facility] Care [place] [address] [place] [address] Eldon Koehler MD [address] [place] [address] [place] [address] documented as of this encounter Visit Diagnoses Not on filedocumented in this encounter Care Teams Metal Melter Relationship Specialty Start Date End Date Eldon Koehler MD PCP - General 10/06/07 documented as of this encounter
--- OUTSIDE RECORDS SUMMARY | 2024-05-22 16:58 | XMS_ITS | Encounter Summary ---
Author Organization [facility] Address [address] [place] [address] Care Team Providers Care Crown Buffer Name Role Phone Eldon Koehler MD Primary Care Provider [phone] Reason for Visit * Reason Comments Results Medication Review Encounter Details Date Type Department Care Team (Late st Contact Info) Description 01/01/2022 11:20 AM CDT Office Visit [facility] Primary Care [address] [place] [address] Eldon Koehler MD [address] [place] [address] [address] [place] [address] Need for influenza vaccination (Primary Dx); Type 2 diabetes mellitus without complication, 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 More than 4 times per year 04/30/2019 Do you belong to any clubs o r organizations such as yarsanism groups, unions, fraternal or athletic groups, or [...] on file Sexual Orientation Not on file COVID-19 Exposure Response Date Recorded In the last 10 days, have yo u been in contact with someone who was confirmed or suspected to have Coronavirus/COVID-19? No / Unsure 01/01/2022 11:08 AM CDT documented as of this encounter Last Filed Vital Signs Vital Sign Reading Time Taken Comments Blood Pressure 130/84 01/01/2022 11:30 AM CDT Pulse 82 01/01/2022 11:30 AM CDT Temperature - - Respiratory Rate - - Oxygen Saturation 97% 01/01/2022 11:30 AM CDT Inhaled Oxygen Concentration - - Weight 117.5 kg (259 lb) 01/01/2022 11:30 AM CDT Height 167.6 cm (5' 6 ) 01/01/2022 11:30 AM CDT Body Mass Index 41.8 01/01/2022 11:30 AM CDT documented in this encounter Progress Notes * Eldon Koehler MD - 01/01/2022 12:00 PM CDT Hpi Flare fibromyalgia djd pain Wt gain Not using cpap regularly Bp ok Chol ok Med reviewed Recent lab reviewed Patient Active Problem List Diagnosis Code Hyperlipemia E78.5 Recurrent major depressive disorder, in partial remission F33.41 Osteoarthritis M19.90 Hypothyroidism E03.9 Headache(784.0) R51 Backache, unspecified M54.9 Asthma J45.909 Sleep apnea G47.30 Impaired fasting glucose R73.01 Restless leg syndrome G25.81 GERD (gastroesophageal reflux disease) K21.9 Fibromyalgia M79.7 Hyperhidrosis R61 Meralgia paresthetica G57.10 Obesity (BMI 35.0-39.9 without comorbidity) E66.9 Prediabetes R73.03 exam BP 130/84 Pulse 82 Ht 5' 6 (1.676 m) Wt 117.5 kg (259 lb) SpO2 97% BMI 41.80 kg/m?? General appearance: over wt nad Head: Normocephalic, without obvious abnormality, atraumatic Eyes: conjunctivae/corneas clear. PERRLA, EOM's intact. Lids appear normal. Ears: normal TM's (shiny without retraction) and external ear canals AU. No apparent lesions or masses. Hearing grossly normal. Nose: mask Throat: mask Neck: supple, symmetrical, trachea midline, no lymphadenopathy, and thyroid: not enlarged, symmetric, no tenderness/mass/nodules. Lungs: breath sounds equal, clear to auscultation bilaterally, no retractions, no stridor, normal respiratory effort Heart: regular rate and rhythm Abdomen: soft, non-tender. Bowel sounds normal. No masses, no organomegaly. Active bowel sounds. Skin: Skin color, texture, turgor normal. Lymphatics: No focal or generalized lymphadenopathy. Neck Ext no edema Diabetic foot exam: Visual: no ulceration and no callous formation Sensory:normal monofilament testing Pulses: normal bilaterally Mood stable ASSESSMENT: Encounter Diagnoses Name Primary? Type 2 diabetes mellitus without complication, unspecified whether intermediate insulin use Vitamin B12 deficiency (non anemic) Other hyperlipidemia Recurrent major depressive disorder, in partial remission Mild intermittent asthma without complication Other specified hypothyroidism Need for influenza vaccination Yes Other sleep apnea Dm add carmelo for now sample given , cost issue Trulcity Depn cont med Sleep apnea cpap adviseed Add b12 daily Asthma flu vac Thyroid stable Fibro , djd, steroid x 1 Consider inc lyrica Gerd stable cont med PLAN: Orders Placed This Encounter Influenza Vaccine High Dose quadrivalent 65 yr up PF IM CBC WITHOUT DIFFERENTIAL (Favorites) COMPREHENSIVE METABOLIC PANEL (Favorites) LIPID PANEL (Favorites) TSH (Favorites) VITAMIN B12 LEVEL (Chemistry) MICROALBUMIN/CREATININE RATIO, RANDOM UR (Favorites) [place] ADMIN INFLUENZA VIRUS VAC DISCONTD: predniSONE (DELTASONE) 10 mg tablet predniSONE (DELTASONE) 10 mg tablet documented in this encounter Plan of Treatment Upcoming Encounters Date Type Department Care Team (Late st Contact Info) Description 07/27/2024 9:40 AM CDT Office Visit [facility] Care [address] [place] [address] Eldon Koehler MD [address] [place] [address] documented as of this encounter Procedures Procedure Name Priority Date/Time Associated Diagnosis Comments MICROALBUMIN/CREATINI NE RATIO, RANDOM UR Routine 07/02/2022 8:21 AM FIBER MACHINE TENDER CBC WITHOUT DIFFERENTIAL Routine 07/02/2022 8:21 AM FIBER MACHINE TENDER Vitamin B12 deficiency (non anemic) TSH Routine 07/02/2022 8:21 AM FIBER MACHINE TENDER Other hyperlipidemia VITAMIN B12 LEVEL Routine 07/02/2022 8:2 1 AM FIBER MACHINE TENDER Vitamin B12 deficiency (non anemic) LIPID PANEL Routine 07/02/2022 8:21 AM FIBER MACHINE TENDER Other hyperlipidemia COMPREHENSIVE METABOLIC PANEL Routine 07/02/2022 8:21 AM FIBER MACHINE TENDER Other hyperlipidemia documented in this encounter Results * MICROALBUMIN/CREATININE RATIO, RANDOM UR (07/02/2022 8:21 AM FIBER MACHINE TENDER) Creatinine, Urine 207 20 - 275 mg/dL [facility] MICROALBUMIN, URINE 1.3 See Note: mg/dL [facility] Comment: Reference Range: Reference Range Not established MICROALBUMIN/CREAT RATIO, UR 6 <30 mcg/mg creat [facility] Comment: The ADA defines abnormalities in albumin excretion as follows: Albuminuria Category ?Result (mcg/mg creatinine) Normal to Mildly increased ?? <30 Moderately increased ? 30-299 Severely increased ? > OR = 300 The ADA recommends that at least two of three specimens collected within a 3-6 month period be abnormal before considering a patient to be within a diagnostic category. FASTING:YES FASTING: YES Test Performed at: [facility] ??[phone] Marty Duckworth MD 07/02/2022 8:21 AM FIBER MACHINE TENDER 07/02/2022 8:21 AM FIBER MACHINE TENDER Eldon Koehler MD URINE ORDERABLES Performing Organization Address City/[facility]/ZIP Co de Phone Number [facility] [phone] [address] * (ABNORMAL) VITAMIN B12 LEVEL (07/02/2022 8:21 AM FIBER MACHINE TENDER) VITAMIN B12 1795(H) 200 - 1100 pg/mL [facility] Comment: FASTING:YES FASTING: YES Test Performed at: [facility] ??[phone] Marty Duckworth MD Blood 07/02/2022 8:21 AM FIBER MACHINE TENDER 07/02/2022 8:21 AM FIBER MACHINE TENDER Eldon Koehler MD CHEMISTRY ORDERABLES Performing Organization Address City/[facility]/ZIP Co de Phone Number [facility] [phone] [address] * TSH (07/02/2022 8:21 AM FIBER MACHINE TENDER) TSH 2.22 0.40 - 4.50 mIU/L [facility] Comment: FASTING:YES FASTING: YES Test Performed at: [facility] [address] [place] ??[address] Marty Duckworth MD Blood 07/02/2022 8:21 AM FIBER MACHINE TENDER 07/02/2022 8:21 AM FIBER MACHINE TENDER Eldon Koehler MD CHEMISTRY ORDERABLES [facility] [phone] [facility] [address] [place] [address] * LIPID PANEL (07/02/2022 8:21 AM FIBER MACHINE TENDER) CHOLESTEROL 157 <200 mg/dL [facility] HDL 56 > OR = 50 mg/dL [facility] TRIGLYCERIDE 110 <150 mg/dL [facility] LDL CALCULATED 80 mg/dL (calc) [facility] Comment: Reference range: <100 Desirable range <100 mg/dL for primary prevention; ?? <70 mg/dL for patients with CHD or diabetic patients with > or = 2 CHD risk factors. LDL-C is now calculated using the Christopher-Марина calculation, which is a validated novel method providing better accuracy than the Friedewald equation in the estimation of LDL-C. Christopher SS et al. ERLIN. 2013;310(19): 3993-1687 (http://education.Scoop.it.AMW Foundation/faq/UMF211) CHOL/HDL RATIO 2.8 <5.0 (calc) [facility] TOTAL NON-HDL CHOL(LDL+VLDL) 101 <130 mg/dL (calc) [facility] Comment: For patients with diabetes plus 1 major ASCVD risk factor, treating to a non-HDL-C goal of <100 mg/dL (LDL-C of <70 mg/dL) is considered a therapeutic option. FASTING:YES FASTING: YES Test Performed at: [facility] [address] [place] ??[address] Marty Duckworth MD Blood 07/02/2022 8:21 AM FIBER MACHINE TENDER 07/02/2022 8:21 AM FIBER MACHINE TENDER Eldon Koehler MD CHEMISTRY ORDERABLES [facility] [phone] [email or web address] [address] [place] [address] * COMPREHENSIVE METABOLIC PANEL (07/02/2022 8:21 AM FIBER MACHINE TENDER) GLUCOSE 95 65 - 99 mg/dL [facility] Comment: ? Fasting reference interval BUN 13 7 - 25 mg/dL [facility] CREATININE 0.83 0.50 - 1.05 mg/dL [facility] GFR 76 > OR = 60 mL/min/1. 73m2 [facility] Comment: The eGFR is based on the CKD-EPI 2020 equation. To calculate the new eGFR from a previous Creatinine or Cystatin C result, go to https://www.kidney.org/professionals/ kdoqi/gfr%5Fcalculator BUN/CREAT RATIO NOT APPLICABLE 6 - (calc) [facility] SODIUM 141 135 - 146 mmol/L [facility] POTASSIUM 4.3 3.5 - 5.3 mmol/L [facility] CHLORIDE 106 98 - 110 mmol/L [facility] CO2 30 20 - 32 mmol/L [facility] CALCIUM 9.0 8.6 - 10.4 mg/dL [facility] TOTAL PROTEIN 6.5 6.1 - 8.1 g/dL [facility] ALBUMIN 3.9 3.6 - 5.1 g/dL [facility] GLOBULIN 2.6 1.9 - 3.7 g/dL (calc) [facility] ALBUMIN/GLOBULI N RATIO 1.5 1.0 - 2.5 (calc) [facility] BILIRUBIN TOTAL 0.7 0.2 - 1.2 mg/dL [facility] ALKALINE PHOSPHATASE 135 37 - 153 U/L [facility] AST 20 10 - 35 U/L [facility] ALT 17 6 - 29 U/L [facility] Comment: FASTING:YES FASTING: YES Test Performed at: [facility] ??[phone] Marty Duckworth MD Blood 07/02/2022 8:21 AM FIBER MACHINE TENDER 07/02/2022 8:21 AM FIBER MACHINE TENDER Eldon Koehler MD CHEMISTRY ORDERABLES [facility] [phone] [facility] [address] * (ABNORMAL) CBC WITHOUT DIFFERENTIAL (07/02/2022 8:21 AM FIBER MACHINE TENDER) WBC 7.2 3.8 - 10.8 Thousand/u L [facility] RBC 4.41 3.80 - 5.10 Million/uL [facility] HEMOGLOBIN 12.1 11.7 - 15.5 g/dL [facility] HEMATOCRIT 38.9 35.0 - 45.0 % [facility] MCV 88.2 80.0 - 100.0 fL [facility] MCH 27.4 27.0 - 33.0 pg [facility] MCHC 31.1(L) 32.0 - 36.0 g/dL [facility] RDW 12.9 11.0 - 15.0 % [facility] PLATELETS 329 140 - 400 Thousand/u L [facility] MPV 10.6 7.5 - 12.5 fL [facility] Comment: FASTING:YES FASTING: YES Test Performed at: [facility] ??[phone] Marty Duckworth MD Blood 07/02/2022 8:21 AM FIBER MACHINE TENDER 07/02/2022 8:21 AM FIBER MACHINE TENDER Eldon Koehler MD HEMATOLOGY ORDERABLE S [facility] [phone] [facility] [address] [place] [address] documented in this encounter Visit Diagnoses Diagnosis Need for influenza vaccination- Primary Need for prophylactic vaccination and inoculation against influenza Type 2 diabetes mellitus without complication, 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 Vitamin B12 deficiency (non anemic) Other B-complex deficiencies Other hyperlipidemia Recurrent major depressive disorder, in partial remission Mild intermittent asthma without complication Unspecified asthma Other specified hypothyroidism Other sleep apnea Gastroesophageal reflux disease without esophagitis Esophageal reflux documented in this encounter Additional Health Concerns Assessment Noted Time PHQ-9 Depression Total Score: 2 08/09/19 22 10:17 AM CDT documented as of this encounter Care Teams Crown Buffer Relationship Specialty Start Date End Date Eldon Koehler MD PCP - General 10/06/07 documented as of this encounter
--- OUTSIDE RECORDS SUMMARY | 2024-05-22 16:58 | XMS_ITS | Encounter Summary ---
Author Organization [facility] Address [address] [place] [address] Care Team Providers Care Gear Lapper Name Role Phone Eldon Koehler MD Primary Care Provider [phone] Reason for Referral * Medication Prior Authorization - Authorized Specialty Diagnoses / Procedures Referred By Contac t Referred To Contact Eldon Koehler MD [address] [place] [address] Referral ID Status Reason Start Date Expiration Date V isits Requested Visits Authorized [id number] Authorized 03/08/2024 05/11/2024 1 1 Reason for Visit * Reason Comments Medication Refill Encounter Details Date Type Department Care Team (Late st Contact Info) Description 02/20/2024 Refill [facility] Primary Care [address] [place] [address] Eldon Koehler MD [address] [place] [address] [address] [place] [address] Social History Tobacco Use Types Packs/Day Years [...] How often do you attend chur or cheondoism services? More than 4 times per year 04/30/2019 Do you belong to any clubs o r organizations such as orthodoxy groups, unions, fraternal or athletic groups, or [...] encounter Miscellaneous Notes * Telephone Encounter - Maria E Prince - 02/20/2024 2:12 PM CDT Copied from [facility] #[id number]. Topic: Medication Request >> Feb 20, 2024 2:10 PM Maria E Dietrich wrote: Medication Refill Request from: Patient/Caregiver Did the patient/caregiver contact their pharmacy for refill prior to calling? Yes Medication (Ask patient/caregiver to spell if possible): DispRefillsStartEnd tirzepatide (Mounjaro) 2.5 mg/0.5 mL Pen Injector0.5 mL01- Sig: Lot: [id number] ex: 01/30/2025 qty: 1 Class: Sample Preferred Pharmacy: [id number] - [facility] [address] [facility] [address] Hours: Not open 24 hours Patient/Caregiver Callback Number: [phone] (mobile) Call Notes: refill, [facility] is currently out of prescription documented in this encounter Plan of Treatment Upcoming Encounters Date Type Department Care Team (Late st Contact Info) Description 07/27/2024 9:40 AM CDT Office Visit [facility] Primary Care [address] [place] [address] Eldon Koehler MD [address] [place] [address] documented as of this encounter Visit Diagnoses Not on filedocumented in this encounter Care Teams Gear Lapper Relationship Specialty Start Date End Date Eldon Koehler MD PCP - General 10/06/07 documented as of this encounter
--- OUTSIDE RECORDS SUMMARY | 2024-05-22 16:58 | XMS_ITS | Encounter Summary ---
Author Organization [facility] Address [address] [place] [address] Care Team Providers Care Shoe Caser Name Role Phone Eldon Koehler MD Primary Care Provider [phone] Encounter Details Date Type Department Care Team (Late st Contact Info) Description 01/06/2024 External Device Data STL ABSTRACTION Provider, Abstract [...] often do you attend chur ch or denominational services? More than 4 times per year 04/30/2019 Do you belong to any clubs o r organizations such as temple groups, unions, fraternal or athletic groups, or [...] Description 07/27/2024 9:40 AM CDT Office Visit [facility] Care [address] [place] [address] Eldon Koehler MD [address] [place] [address] [place] [address] documented as of this encounter Visit Diagnoses Not on filedocumented in this encounter Care Teams Shoe Caser Relationship Specialty Start Date End Date Eldon Koehler MD PCP - General 10/06/07 documented as of this encounter
--- OUTSIDE RECORDS SUMMARY | 2024-05-22 16:58 | XMS_ITS | Encounter Summary ---
Author Organization [facility] Address [address] [place] [address] Care Team Providers Care Merchandise Flow Associate Name Role Phone Eldon Koehler MD Primary Care Provider Encounter Details Date Type Department Care Team (Late st Contact Info) Description 08/12/2023 External Device Data STL ABSTRACTION Provider, Abstract [...] often do you attend chur ch or yarsanism services? More than 4 times per year 04/30/2019 Do you belong to any clubs o r organizations such as adventist groups, unions, fraternal or athletic groups, or [...] Description 07/27/2024 9:40 AM CDT Office Visit [facility] Primary Care [address] [place] [address] Eldon Koehler MD [address] [place] [address] [place] [address] documented as of this encounter Visit Diagnoses Not on filedocumented in this encounter Care Teams Merchandise Flow Associate Relationship Specialty Start Date End Date Eldon Koehler MD PCP - General 10/06/07 documented as of this encounter
--- OUTSIDE RECORDS SUMMARY | 2024-05-22 16:58 | XMS_ITS | Encounter Summary ---
Author Organization [facility] Address [address] [place] [address] Care Team Providers Care Physiotherapy Practice Manager Name Role Phone Eldon Koehler MD Primary Care Provider [phone] Encounter Details Date Type Department Care Team (Late st Contact Info) Description 06/07/2023 External Device Data STL ABSTRACTION Provider, Abstract [...] How often do you attend chur or anglican services? More than 4 times per year 04/30/2019 Do you belong to any clubs o r organizations such as zoroastrian groups, unions, fraternal or athletic groups, or [...] Description 07/27/2024 9:40 AM CDT Office Visit [facility] Primary Care [address] [place] [address] Eldon Koehler MD [address] [place] [address] [place] [address] documented as of this encounter Visit Diagnoses Not on filedocumented in this encounter Care Teams Physiotherapy Practice Manager Relationship Specialty Start Date End Date Eldon Koehler MD PCP - General 10/06/07 documented as of this encounter
--- OUTSIDE RECORDS SUMMARY | 2024-05-22 16:58 | XMS_ITS | Encounter Summary ---
Author Organization [facility] Address [address] [place] [address] Care Team Providers Care Hims Manager Name Role Phone Eldon Koehler MD Primary Care Provider [phone] Reason for Referral * Eval and Treat (Routine) - Open Specialty Diagnoses / Procedures Referred By Carmen villalobos Referred To Contact Dermatology Diagnoses Rash Procedures MA OFFICE/OUTPATIENT ESTABLISHED MOD MDM 30 MIN MA OFFICE/OUTPATIENT NEW MODERATE MDM 45 MINUTES Eldon Koehler MD [address] [place] [address] Referral ID Status Reason Start Date Expiration Date Visits Re quested Visits Authorized [id number] Open 03/01/2024 03/01/2025 1 1 Reason for Visit * Reason Comments Ed Follow-up Gave medication for yeast infection and spreading Encounter Details Date Type Department Care Team (Late st Contact Info) Description 03/01/2024 3:40 PM CDT Office Visit [facility] Primary Care [address] [place] [address] Eldon Koehler MD [address] [place] [address] [address] [place] [address] Screening mammogram, encounter for (Primary Dx); Rash; Type 2 diabetes mellitus without complication, without long-term current use of insulin; Recurrent major depressive disorder, in partial remission Social History Tobacco Use Types Packs/Day Years Used Date Smoking Tobacco: Never Passive Smoke Exposure: Never Smokeless Tobacco: Never Tobacco Cessation:Counseling Given: No Alcohol Use Standard Drinks/Week Comments Never 0 [...] often do you attend chur ch or uatsdin services? More than 4 times per year 04/30/2019 Do you belong to any clubs o r organizations such as yazidism groups, unions, fraternal or athletic groups, or [...] on file documented as of this encounter Last Filed Vital Signs Vital Sign Reading Time Taken Comments Blood Pressure 126/78 03/01/2024 3:29 PM CDT Pulse 94 03/01/2024 3:29 PM CDT Temperature - - Respiratory Rate - - Oxygen Saturation 95% 03/01/2024 3:29 PM CDT Inhaled Oxygen Concentration - - Weight 106.1 kg (233 lb 12.8 oz) 03/01/2024 3:29 PM CDT Height 170.2 cm (5' 7 ) 03/01/2024 3:29 PM CDT Body Mass Index 36.62 03/01/2024 3:29 PM CDT documented in this encounter Progress Notes * Eldon Koehler MD - 03/01/2024 4:01 PM CDT Hpi High stress Inc rash breasts Pannus Noted when lost wt Antifungal not helping Very itchy Patient Active Problem List Diagnosis Code Hyperlipemia E78.5 Recurrent major depressive disorder, in partial remission F33.41 Osteoarthritis M19.90 Hypothyroidism E03.9 Headache(784.0) R51 Backache, unspecified M54.9 Asthma J45.909 Sleep apnea G47.30 Impaired fasting glucose R73.01 Restless leg syndrome G25.81 GERD (gastroesophageal reflux disease) K21.9 Fibromyalgia M79.7 Hyperhidrosis R61 Meralgia paresthetica G57.10 Obesity (BMI 35.0-39.9 without comorbidity) E66.9 Prediabetes R73.03 Frail elderly R54 Type 2 diabetes mellitus without complication E11.9 Exam BP 126/78 Pulse 94 Ht 5' 7 (1.702 m) Wt 106.1 kg (233 lb 12.8 oz) SpO2 95% BMI 36.62 kg/m?? General appearance: lost wt, pt upset Head: Normocephalic, without obvious abnormality, atraumatic Lungs: breath sounds equal, clear to auscultation bilaterally, no retractions, no stridor, normal respiratory effort Heart: regular rate and rhythm Abdomen: soft, non-tender. Bowel sounds normal. Skin eczematous rash under breasts, pannus Lymphatics: No focal or generalized lymphadenopathy. Neck Ext no edema Mood stable ASSESSMENT: Encounter Diagnoses Name Primary? Screening mammogram, encounter for Yes Rash Type 2 diabetes mellitus without complication, without long-term current use of insulin Recurrent major depressive disorder, in partial remission Rash not responding to clotrimazole Hx eczema?? Medrol x 1 lotrisone Refer derm Dm stable Recheck lab Shanika reviewed Memory issues worse with inc stress Neuro consult pend Depression continue med reviewed Mammo pend rash PLAN: Orders Placed This Encounter Generic Referral to Dermatology methylPREDNISolone (MEDROL DOSPACK) 4 mg Tablets, Dose Pack clotrimazole-betamethasone (LOTRISONE) 1-0.05 % Cream ketoconazole (NIZORAL) 2 % Shampoo documented in this encounter Plan of Treatment Upcoming Encounters Date Type Department Care Team (Late st Contact Info) Description 07/27/2024 9:40 AM CDT Office Visit [facility] [address] [place] [address] Eldon Koehler MD [address] [place] [address] [address] [place] [address] Scheduled Referrals Name Type Priority Associated Diagnoses Order Schedule AMB REFERRAL TO DERMATOLOGY Outpatient Referral Routine Rash Ordered: 03/01/2024 documented as of this encounter Visit Diagnoses Diagnosis Screening mammogram, encounter for- Primary Rash Rash and other nonspecific skin eruption Type 2 diabetes mellitus without complication, without long-term current use of insulin Recurrent major depressive disorder, in partial remission documented in this encounter Care Teams Hims Manager Relationship Specialty Start Date End Date Eldon Koehler MD PCP - General 10/06/07 documented as of this encounter
--- OUTSIDE RECORDS SUMMARY | 2024-05-22 16:58 | XMS_ITS | Encounter Summary ---
Author Organization [facility] Address [address] [place] [address] Care Team Providers Care Web Analyst Name Role Phone Eldon Koehler MD Primary Care Provider [phone] Encounter Details Date Type Department Care Team (Late st Contact Info) Description 07/04/2023 Orders Only [facility] Primary Care [address] [place] [address] Eldon Koehler MD [address] [facility] [address] [place] [address] Other specified hypothyroidism (Primary Dx) Social History Tobacco Use Types Packs/Day Years [...] often do you attend chur ch or hindu services? More than 4 times per year 04/30/2019 Do you belong to any clubs o r organizations such as caodaism groups, unions, fraternal or athletic groups, or [...] on file documented as of this encounter Progress Notes * Eldon Koehler MD - 07/04/2023 7:04 AM CST Spoke with pt Restart thyroid med Recheck lab in 1 mo L ANALYST documented in this encounter Plan of Treatment Upcoming Encounters Date Type Department Care Team (Late st Contact Info) Description 07/27/2024 9:40 AM CDT Office Visit [facility] Primary Care [address] [place] [address] Eldon Koehler MD [address] [place] [address] [address] [place] [id number] documented as of this encounter Visit Diagnoses Diagnosis Other specified hypothyroidism- Primary documented in this encounter Care Teams Web Analyst Relationship Specialty Start Date End Date Eldon Koehler MD PCP - General 10/06/07 documented as of this encounter
--- OUTSIDE RECORDS SUMMARY | 2024-05-22 16:58 | XMS_ITS | Encounter Summary ---
Author Organization [facility] Address [address] [place] [address] Care Team Providers Care Research Associate Molecular Biology Name Role Phone Eldon Koehler MD Primary Care Provider Encounter Details Date Type Department Care Team (Late st Contact Info) Description 10/08/2022 Abstract [facility] Primary Care [address] [place] [address] Eldon Koehler MD [address] [facility] [address] [place] [address] Social History Tobacco Use Types [...] often do you attend chur ch or anglican services? More than 4 times per year 04/30/2019 Do you belong to any clubs o r organizations such as cheondoism groups, unions, fraternal or athletic groups, or [...] suspected to have Coronavirus/COVID-19? No / Unsure 09/09/2022 10:42 AM CDT documented as of this encounter Plan of Treatment Upcoming Encounters Date Type Department Care Team (Late st Contact Info) Description 07/27/2024 9:40 AM CDT Office Visit [facility] Primary Care [address] [place] [address] Eldon Koehler MD [address] [place] [address] [place] [address] documented as of this encounter Visit Diagnoses Not on filedocumented in this encounter Care Teams Research Associate Molecular Biology Relationship Specialty Start Date End Date Eldon Koehler MD PCP - General 10/06/07 documented as of this encounter
--- OUTSIDE RECORDS SUMMARY | 2024-05-22 16:58 | XMS_ITS | Encounter Summary ---
Author Organization [facility] Address [address] [place] [address] Care Team Providers Care Streetcar Operator Name Role Phone Eldon Koehler MD Primary Care Provider [phone] Reason for Visit * Reason Onset Date Comments red flag-dizziness/ear drum ruptured 08/13/2022 Encounter Details Date Type Department Care Team (Late st Contact Info) Description 08/13/2022 Telephone [facility] Primary Care [address] [place] [address] Eldon Koehler MD [address] [place] [address] [address] [place] [address] red flag-dizziness/ear drum ruptured Social History Tobacco Use Types Packs/Day Years [...] week 04/30/2019 How often do you attend [facility] or jehovah's witness services? More than 4 times per year 04/30/2019 Do you belong to any clubs o r organizations such as scientology groups, unions, fraternal or athletic groups, or [...] encounter Miscellaneous Notes * Telephone Encounter - Martha Plata - 08/13/2022 9:42 AM CDT Spoke to patient. Patient scheduled for an appt today. * Telephone Encounter - Susana Tang - 08/13/2022 9:34 AM CDT DIZZINESS How long has patient had symptoms? 08.11 Dizziness is best described as: Lightheaded: Yes {RED FLAG Follow RED FLAG protocol use The caller has been advised they will be transferred to a clinical coworker as they have presented information that may require further consultation or possible emergency action. Call back number: Telephone Information: OR The room spinning (aka vertigo): No OR Generalized off balance: Yes What caused the dizziness? not doing anything Any new medications since symptoms started (what)? No Appointment scheduled regarding this concern. 08/13/2022 Eldon Koehler MD Caller also advised to call back: in 48 hours if they have not received contact at any time if the condition worsens or they develop new symptoms they are concerned about. EAR PAIN OR CLOGGING Complains of ear pain and clogging: right When did symptoms develop? 04.02 Status of symptoms? worsened Ear drainage? Yes Fever? no fever Nasal drainage? No Color? N/A Recent swimming or hot tub? No Has the patient stuck anything in their ear or used Q-tips regularly? Yes-QTips Olax-iwe-Pldyl remedies tried: N/A Appointment scheduled regarding this concern. 08/13/2022 Eldon Koehler MD Patient says that on Friday she was walking and using a Q-tip at the same time when she had trippedand the Q-tip went in a bit too far and it ruptured her ear drum. She says that she has water drainage as well coming out her right ear. Caller also advised to call back: in 48 hours if they have not received contact at any time if the condition worsens or they develop new symptoms they are concerned about. Agent notified patient/caller of the call back advice. documented in this encounter Plan of Treatment Upcoming Encounters Date Type Department Care Team (Late st Contact Info) Description 07/27/2024 9:40 AM CDT Office Visit [facility] Primary Care [address] [address] Eldon Koehler MD [address] [place] [address] documented as of this encounter Visit Diagnoses Not on filedocumented in this encounter Care Teams Streetcar Operator Relationship Specialty Start Date End Date Eldon Koehler MD PCP - General 10/06/07 documented as of this encounter
--- OUTSIDE RECORDS SUMMARY | 2024-05-22 16:58 | XMS_ITS | Encounter Summary ---
Author Organization [facility] Address [address] [place] [address] Care Team Providers Care Flower Picker Name Role Phone Eldon Koehler MD Primary Care Provider [phone] Encounter Details Date Type Department Care Team (Late st Contact Info) Description 10/28/2023 External Device Data STL ABSTRACTION Provider, Abstract [...] How often do you attend chur or shinto services? More than 4 times per year 04/30/2019 Do you belong to any clubs o r organizations such as confucianist groups, unions, fraternal or athletic groups, or [...] Description 07/27/2024 9:40 AM CDT Office Visit [facility] Primary Care [address] [place] [address] Eldon Koehler MD [address] [place] [address] [place] [address] documented as of this encounter Visit Diagnoses Not on filedocumented in this encounter Care Teams Flower Picker Relationship Specialty Start Date End Date Eldon Koehler MD PCP - General 10/06/07 documented as of this encounter
--- OUTSIDE RECORDS SUMMARY | 2024-05-22 16:58 | XMS_ITS | Encounter Summary ---
Author Organization [facility] Address [address] [place] [address] Care Team Providers Care Medical Representative Name Role Phone Eldon Koehler MD Primary Care Provider [phone] Encounter Details Date Type Department Care Team (Late st Contact Info) Description 07/15/2023 External Device Data STL ABSTRACTION Provider, Abstract [...] often do you attend chur ch or hoahaoism services? More than 4 times per year [...] Description 07/27/2024 9:40 AM CDT Office Visit [facility] Primary Care [address] [place] [address] Eldon Koehler MD [address] [place] [address] [place] [address] documented as of this encounter Visit Diagnoses Not on filedocumented in this encounter Care Teams Medical Representative Relationship Specialty Start Date End Date Eldon Koehler MD PCP - General 10/06/07 documented as of this encounter
--- OUTSIDE RECORDS SUMMARY | 2024-05-22 16:58 | XMS_ITS | Encounter Summary ---
Author Organization [facility] [place] [facility] Address [address] [place] [address] Care Team Providers Care Dietetic Technician Registered Name Role Phone Eldon Koehler MD Primary Care Provider [phone] Encounter Details Date Type Department Care Team (Late st Contact Info) Description 03/26/2023 External Device Data STL ABSTRACTION Provider, Abstract [...] How often do you attend chur or religion services? More than 4 times per year 04/30/2019 Do you belong to any clubs o r organizations such as mandaen groups, unions, fraternal or athletic groups, or [...] Description 07/27/2024 9:40 AM CDT Office Visit [facility] Primary Care [address] [place] [address] Eldon Koehler MD [address] [place] [address] [place] [address] documented as of this encounter Visit Diagnoses Not on filedocumented in this encounter Care Teams Dietetic Technician Registered Relationship Specialty Start Date End Date Eldon Koehler MD PCP - General 10/06/07 documented as of this encounter
--- OUTSIDE RECORDS SUMMARY | 2024-05-22 16:58 | XMS_ITS | Encounter Summary ---
Author Organization [facility] Address [address] [place] [address] Care Team Providers Care Penology Teacher Name Role Phone Eldon Koehler MD Primary Care Provider [phone] Encounter Details Date Type Department Care Team (Late st Contact Info) Description 04/23/2023 External Device Data STL ABSTRACTION Provider, Abstract [...] How often do you attend chur or mandaeism services? More than 4 times per year [...] Description 07/27/2024 9:40 AM CDT Office Visit [facility] Primary Care [address] [place] [address] Eldon Koehler MD [address] [place] [address] [place] [address] documented as of this encounter Visit Diagnoses Not on filedocumented in this encounter Care Teams Penology Teacher Relationship Specialty Start Date End Date Eldon Koehler MD PCP - General 10/06/07 documented as of this encounter
--- OUTSIDE RECORDS SUMMARY | 2024-05-22 16:58 | XMS_ITS | Encounter Summary ---
Author Organization [facility] Address [address] [place] [address] Care Team Providers Care Last Greaser Name Role Phone Eldon Koehler MD Primary Care Provider Reason for Visit * Reason Comments Question Encounter Details Date Type Department Care Team (Late st Contact Info) Description 01/23/[address] [facility] Primary Care [address] [place] [address] Eldon Koehler MD [address] [facility] [address] [place] [address] Question Social History Tobacco Use Types Packs/Day Years [...] often do you attend chur ch or muslim services? More than 4 times per year 04/30/2019 Do you belong to any clubs o r organizations such as evangelical groups, unions, fraternal or athletic groups, or [...] encounter Miscellaneous Notes * Telephone Encounter - Nelia Flores - 01/23/2024 2:09 PM CDT Spoke with pt informed she did get the flu shot * Telephone Encounter - Marlyn Monterroso - 01/23/2024 12:42 PM CDT Copied from [facility] #[id number]. Topic: Patient or Caregiver Communication Request >> Jan 23, 2024 12:38 PM Marlyn Dietrich wrote: Patient or Caregiver requesting advice Caller: Winifred Rodriguez Patient/Caregiver Callback Number: Telephone Information: Call Notes: The patient says that she got an injection while in the office and she is wanting to know which ones she received. She said that her health maintenance is a bit confusing and she doesn't know which injections she got at the appointment and which ones she is still needing. Please call back and advise. documented in this encounter Plan of Treatment Upcoming Encounters Date Type Department Care Team (Late st Contact Info) Description 07/27/2024 9:40 AM CDT Office Visit [facility] Primary Care [address] [place] [address] Eldon Koehler MD [address] [place] [address] [address] [place] [address] documented as of this encounter Visit Diagnoses Not on filedocumented in this encounter Care Teams Last Greaser Relationship Specialty Start Date End Date Eldon Koehler MD PCP - General 10/06/07 documented as of this encounter
--- OUTSIDE RECORDS SUMMARY | 2024-05-22 16:58 | XMS_ITS | Encounter Summary ---
Author Organization [facility] Address [address] [place] [address] Care Team Providers Care Rehabilitation Manager Name Role Phone Eldon Koehler MD Primary Care Provider [phone] Reason for Visit * Reason Onset Date Comments Medication Refill 12/24/2022 Encounter Details Date Type Department Care Team (Late st Contact Info) Description 12/24/2022 Refill [facility] Internal Medicine [address] [address] Eldon Koehler MD [address] [place] [address] Fibromyalgia; Other hyperlipidemia Social History Tobacco Use Types [...] often do you attend chur ch or jew services? More than 4 times per year 04/30/2019 Do you belong to any clubs o r organizations such as worship groups, unions, fraternal or athletic groups, or [...] [facility] Primary Care [address] [address] Eldon Koehler MD [address] [place] [address] documented as of this encounter Visit Diagnoses Diagnosis Fibromyalgia Mylagia and myositis, unspecified Other hyperlipidemia documented in this encounter Care Teams Rehabilitation Manager Relationship Specialty Start Date End Date Eldon Koehler MD PCP - General 10/06/07 documented as of this encounter
--- OUTSIDE RECORDS SUMMARY | 2024-05-22 16:58 | XMS_ITS | Encounter Summary ---
Author Organization [facility] Address [address] [place] [address] Care Team Providers Care Operations Logistics Analyst Name Role Phone Eldon Koehler MD Primary Care Provider [phone] Encounter Details Date Type Department Care Team (Late st Contact Info) Description 09/30/2023 External Device Data STL ABSTRACTION Provider, Abstract [...] How often do you attend chur or hindu services? More than 4 times per year 04/30/2019 Do you belong to any clubs o r organizations such as hoahaoism groups, unions, fraternal or athletic groups, or [...] Description 07/27/2024 9:40 AM CDT Office Visit [facility] Primary Care [address] [place] [address] Eldon Koehler MD [address] [place] [address] [place] [address] documented as of this encounter Visit Diagnoses Not on filedocumented in this encounter Care Teams Operations Logistics Analyst Relationship Specialty Start Date End Date Eldon Koehler MD PCP - General 10/06/07 documented as of this encounter
--- OUTSIDE RECORDS SUMMARY | 2024-05-22 16:58 | XMS_ITS | Encounter Summary ---
Author Organization [facility] Address [address] [place]: [place] [address] Care Team Providers Care Central Supply Tech Name Role Phone Eldon Koehler MD Primary Care Provider [phone] Encounter Details Date Type Department Care Team (Late st Contact Info) Description 08/12/2022 External Device Data Initial Department [address] [place] [address] [address] [place]: [place] [address] [facility], Social History Tobacco Use Types Packs/Day Years [...] often do you attend chur ch or sikh services? More than 4 times per year 04/30/2019 Do you belong to any clubs o r organizations such as denominational groups, unions, fraternal or athletic groups, or [...] AM CDT Office Visit [facility] [address] [place] [address] Eldon Koehler MD [address] [place] [address] [address] [place] [address] documented as of this encounter Visit Diagnoses Not on filedocumented in this encounter Care Teams Central Supply Tech Relationship Specialty Start Date End Date Eldon Koehler MD PCP - General 10/06/07 documented as of this encounter
--- OUTSIDE RECORDS SUMMARY | 2024-05-22 16:58 | XMS_ITS | Encounter Summary ---
Author Organization [facility] Address [address] [place] [address] Care Team Providers Care Support Architect Name Role Phone Eldon Koehler MD Primary Care Provider [phone] Encounter Details Date Type Department Care Team (Late st Contact Info) Description 03/04/2023 External Device Data STL ABSTRACTION Provider, Abstract [...] How often do you attend chur or protestant services? More than 4 times per year [...] Visit [facility] Primary Care [address] [place] [address] Eldon Koehler MD [address] [place] [address] [place] [address] documented as of this encounter Visit Diagnoses Not on filedocumented in this encounter Care Teams Support Architect Relationship Specialty Start Date End Date Eldon Koehler MD PCP - General 10/06/07 documented as of this encounter
--- OUTSIDE RECORDS SUMMARY | 2024-05-22 16:58 | XMS_ITS | Encounter Summary ---
Author Organization [facility] Address [address] [place] [address] Care Team Providers Care Bulb Brander Name Role Phone Eldon Koehler MD Primary Care Provider Reason for Visit * Reason Onset Date Comments SAMPLES 02/02/2024 Encounter Details Date Type Department Care Team (Late st Contact Info) Description 02/02/2024 Refill [facility] Primary Care [address] [place] [address] Eldon Koehler MD [address] [place] [address] [address] [place] [address] Social History Tobacco Use Types [...] often do you attend chur ch or congregation services? More than 4 times per year 04/30/2019 Do you belong to any clubs o r organizations such as advent groups, unions, fraternal or athletic groups, or [...] Description 07/27/2024 9:40 AM CDT Office Visit [facility] Primary Care [address] [address] Eldon Koehler MD [address] [place] [address] documented as of this encounter Visit Diagnoses Not on filedocumented in this encounter Care Teams Bulb Brander Relationship Specialty Start Date End Date Eldon Koehler MD PCP - General 10/06/07 documented as of this encounter
--- OUTSIDE RECORDS SUMMARY | 2024-05-22 16:58 | XMS_ITS | Encounter Summary ---
Author Organization [facility] Address [address] [place] [address] Care Team Providers Care Account Manager B2B Name Role Phone Eldon Koehler MD Primary Care Provider [phone] Reason for Referral * Physical Therapy (Routine) - Closed Specialty Diagnoses / Procedures Referred By Contac t Referred To Contact Physical Therapy Diagnoses Lumbar radiculopathy Eldon Koehler MD [address] [place] [address] [address] [place] [address] [facility] Physical Therapy [address], [address] [address] Referral ID Status Reason Start Date Expiration Date Visits Re quested Visits Authorized [id number] Closed 01/14/2023 01/14/2024 6 6 Reason for Visit * Reason Comments Back Pain Encounter Details Date Type Department Care Team (Latest Contact Info) Description 01/14/2023 2:00 PM CDT Office Visit [facility] Primary [facility] [address] [place] [address] Eldon Koehler MD [address] [place] [address] [address] [place] [address] Lumbar radiculopathy (Primary Dx); Fibromyalgia; Prediabetes; Other hyperlipidemia; Other specified hypothyroidism; Recurrent major depressive disorder, in partial remission; Restless leg syndrome; Mild intermittent asthma without complication; Frail elderly Social History Tobacco Use Types Packs/Day Years Used Date Smoking Tobacco: Never Smokeless Tobacco: Never Tobacco Cessation:Counseling Given: [...] How often do you attend chur or muslim services? More than 4 times per year 04/30/2019 Do you belong to any clubs o r organizations such as voodoo groups, unions, fraternal or athletic groups, or [...] Sign Reading Time Taken Comments Blood Pressure 128/80 01/14/2023 2:32 PM CDT Pulse 84 01/14/2023 2:32 PM CDT Temperature 36.6 ??C (97.8 ??F) 01/14/2023 2:32 PM CD T Respiratory Rate 17 01/14/2023 2:32 PM CDT Oxygen Saturation 97% 01/14/2023 2:32 PM CDT Inhaled Oxygen Concentration - - Weight 121.9 kg (268 lb 12.8 oz) 01/14/2023 2:32 PM CDT Height 167.6 cm (5' 6 ) 01/14/2023 2:32 PM CDT Body Mass Index 43.39 01/14/2023 2:32 PM CDT documented in this encounter Progress Notes * Eldon Koehler MD - 01/14/2023 3:00 PM CDT Answers submitted by the patient for this visit: Back Pain Questionnaire (Submitted on 01/14/2023) Chief Complaint: Back pain Pain location: sacro-iliac, gluteal region Pain quality: aching, shooting, stabbing Radiates to: R thigh, R knee How bad is the pain?: severe Pain is: the same all the time Onset quality: sudden Episode duration: 10 Days Timing: constant Relieved by: being still, lying down Worsened by: coughing, movement, sneezing, bowel movement abdominal pain: No Abdominal swelling: No bladder incontinence: No bowel incontinence: No chest pain: No dysuria: No fever: No headaches: No leg pain: Yes numbness: No paresthesias: No pelvic pain: Yes perianal numbness: No tingling: Yes weakness: Yes weight loss: No Fibromyalgia same Inc back pain to right leg Mostly thigh but occ all way down leg Known lumbar radiculopathy Wt gain Stress eating Med reveiwed Lab pend Patient Active Problem List Diagnosis Code Hyperlipemia E78.5 Recurrent major depressive disorder, in partial remission F33.41 Osteoarthritis M19.90 Hypothyroidism E03.9 Headache(784.0) R51 Backache, unspecified M54.9 Asthma J45.909 Sleep apnea G47.30 Impaired fasting glucose R73.01 Restless leg syndrome G25.81 GERD (gastroesophageal reflux disease) K21.9 Fibromyalgia M79.7 Hyperhidrosis R61 Meralgia paresthetica G57.10 Obesity (BMI 35.0-39.9 without comorbidity) E66.9 Prediabetes R73.03 Frail elderly R54 BP 128/80 Pulse 84 Temp 97.8 ??F (36.6 ??C) (Temporal) Resp 17 Ht 5' 6 (1.676 m) Wt 121.9 kg (268 lb 12.8 oz) SpO2 97% BMI 43.39 kg/m?? General appearance: over wt nad Head: Normocephalic, without obvious abnormality, atraumatic Eyes: conjunctivae/corneas clear. PERRLA, EOM's intact. Lids appear normal. Ears: normal TM's (shiny without retraction) and external ear canals AU. No apparent lesions or masses. Hearing grossly normal. Neck: supple, symmetrical, trachea midline, no lymphadenopathy, and thyroid: not enlarged, symmetric, no tenderness/mass/nodules. Lungs: breath sounds equal, clear to auscultation bilaterally, no retractions, no stridor, normal respiratory effort Heart: regular rate and rhythm Abdomen: soft, non-tender. Bowel sounds chalino Skin: Skin color, texture, turgor normal. Lymphatics: No focal or generalized lymphadenopathy. Neck Ext no edema Ls tender Some weakness flex right leg at hip Gait slow Mood stable ASSESSMENT: Encounter Diagnoses Name Primary? Fibromyalgia Lumbar radiculopathy Yes Prediabetes Other hyperlipidemia Other specified hypothyroidism Recurrent major depressive disorder, in partial remission Restless leg syndrome Mild intermittent asthma without complication Frail elderly Fibromyalgia inc lyrica for back pain Lumbar radiculopathy PT Med May need mri surgical consult Predm recheck lab Rx Ozempic Chol recheck lab cont med Dpen cont med ongoing stress issues Rls cont med Asthma has inh Frailty reviewed inc pain Monitor PLAN: Orders Placed This Encounter Generic Referral to Physical Therapy pregabalin (LYRICA) 50 mg Capsule methylPREDNISolone (MEDROL DOSPACK) 4 mg Tablets, Dose Pack semaglutide (Ozempic) 0.25 mg or 0.5 mg (2 mg/3 mL) Pen Injector HYDROcodone-acetaminophen (NORCO) 5-325 mg tablet respiratory syncytial virus recombinant,adjuvanted vaccine (Arexvy, PF,) 120 mcg/0.5 mL Suspension for Reconstitution documented in this encounter Plan of Treatment Upcoming Encounters Date Type Department Care Team (Late st Contact Info) Description 07/27/2024 9:40 AM CDT Office Visit [facility] Primary [facility] [address] [place] [address] Eldon Koehler MD [address] [place] [address] [address] [place] [phone] Scheduled Referrals Name Type Priority Associated Diagnoses Orde r Schedule AMB REFERRAL TO PHYSICAL THERAPY Outpatient Referral Routine Lumbar radiculopathy Ordered: 01/14/2023 documented as of this encounter Visit Diagnoses Diagnosis Lumbar radiculopathy- Primary Thoracic or lumbosacral neuritis or radiculitis, unspecified Fibromyalgia Mylagia and myositis, unspecified Prediabetes Other abnormal glucose Other hyperlipidemia Other specified hypothyroidism Recurrent major depressive disorder, in partial remission Restless leg syndrome Restless legs syndrome (RLS) Mild intermittent asthma without complication Unspecified asthma Frail elderly Senility without mention of psychosis documented in this encounter Care Teams Account Manager B2B Relationship Specialty Start Date End Date Eldon Koehler MD PCP - General 10/06/07 documented as of this encounter
--- OUTSIDE RECORDS SUMMARY | 2024-05-22 16:58 | XMS_ITS | Encounter Summary ---
Author Organization [facility] Address [address] [place] [address] Care Team Providers Care Home Improvement Installer Name Role Phone Eldon Koehler MD Primary Care Provider [phone] Encounter Details Date Type Department Care Team (Late st Contact Info) Description 04/15/2023 External Device Data STL ABSTRACTION Provider, Abstract [...] How often do you attend chur or sabianist services? More than 4 times per year 04/30/2019 Do you belong to any clubs o r organizations such as islam groups, unions, fraternal or athletic groups, or [...] Description 07/27/2024 9:40 AM CDT Office Visit [facility] Primary [facility] [address] [place] [address] Eldon Koehler MD [address] [place] [address] [place] [address] documented as of this encounter Visit Diagnoses Not on filedocumented in this encounter Care Teams Home Improvement Installer Relationship Specialty Start Date End Date Eldon Koehler MD PCP - General 10/06/07 documented as of this encounter
--- OUTSIDE RECORDS SUMMARY | 2024-05-22 16:58 | XMS_ITS | Encounter Summary ---
Author Organization [facility] Address [address] [place] [address] Care Team Providers Care Ski Patrol Name Role Phone Eldon Koehler MD Primary Care Provider [phone] Encounter Details Date Type Department Care Team (Late st Contact Info) Description 09/26/2022 Abstract [facility] Primary Care [address] [place] [address] Eldon Koehler MD [address] [facility] [address] [place] [address] Social History Tobacco Use Types [...] often do you attend chur ch or synagogue services? More than 4 times per year 04/30/2019 Do you belong to any clubs o r organizations such as congregation groups, unions, fraternal or athletic groups, or [...] AM CDT Office Visit [facility] Primary [facility] [address] [place] [address] Eldon Koehler MD [address] [place] [address] [place] [phone] documented as of this encounter Visit Diagnoses Not on filedocumented in this encounter Care Teams Ski Patrol Relationship Specialty Start Date End Date Eldon Koehler MD PCP - General 10/06/07 documented as of this encounter
--- OUTSIDE RECORDS SUMMARY | 2024-05-22 16:58 | XMS_ITS | Encounter Summary ---
Author Organization [facility] Address [address] [place] [address] Care Team Providers Care Take Out Waitress Name Role Phone Eldon Koehler MD Primary Care Provider Reason for Referral * Medication Prior Authorization - Authorized Specialty Diagnoses / Procedures Referred By Contdorian t Referred To Contact Diagnoses Other sleep apnea Eldon Koehler MD [address] [place] [phone] Referral ID Status Reason Start Date Expiration Date V isits Requested Visits Authorized [id number] Authorized 07/21/2023 01/21/2024 1 1 H OPERATOR Reason for Visit * Reason Comments Follow Up 6MO Encounter Details Date Type Department Care Team (Latest Contact Info) Description 07/15/2023 11:20 AM BATCH OPERATOR Office Visit [facility] Primary Care [address] [place] [address] Eldon Koehler MD [address] [place] [address] [address] [place] [address] Other hyperlipidemia (Primary Dx); Other sleep apnea; Other specified hypothyroidism; Vitamin B12 deficiency (non anemic); Myalgia; Type 2 diabetes mellitus without complication, without long-term current use of insulin; Recurrent major depressive disorder, in partial remission; Gout, unspecified cause, unspecified chronicity, unspecified site; Restless leg syndrome Social History Tobacco Use Types Packs/Day Years [...] How often do you attend chur or denominational services? More than 4 times per year 04/30/2019 Do you belong to any clubs o r organizations such as mormon groups, unions, fraternal or athletic groups, or [...] Sign Reading Time Taken Comments Blood Pressure 128/78 07/15/2023 11:19 AM BATCH OPERATOR Pulse 77 07/15/2023 11:19 AM BATCH OPERATOR Temperature - - Respiratory Rate - - Oxygen Saturation 99% 07/15/2023 11:19 AM BATCH OPERATOR Inhaled Oxygen Concentration - - Weight - - Height 167.6 cm (5' 6 ) 07/15/2023 11:19 AM BATCH OPERATOR Body Mass Index - - documented in this encounter Progress Notes * Eldon Koehler MD - 07/15/2023 11:19 AM CST HPI Fatigue-did not fill provigil Was off thyroid Inc chol was off med Inc crp since covid Med reviewed Recent lab reviewed reviewed Bp -stress driving here better now Patient Active Problem List Diagnosis Code Hyperlipemia [...] Type 2 diabetes mellitus without complication E11.9 BP 128/78 Pulse 77 Ht 5' 6 (1.676 m) SpO2 99% BMI 43.39 kg/m?? General appearance: over wt [...] Mood stable ASSESSMENT: Encounter Diagnoses Name Primary? Other sleep apnea Other hyperlipidemia Yes Other specified hypothyroidism Vitamin B12 deficiency (non anemic) Myalgia Type 2 diabetes mellitus without complication, without long-term current use of insulin Recurrent major depressive disorder, in partial remission Gout, unspecified cause, unspecified chronicity, unspecified site Restless leg syndrome Sleep apnea, try provigil reassess Chol restart med check lab Thyroid recheck lab on med Continue b12 supplet Myalgia recheck crp may need rheum consult Rls refill med reviewed Gout stabl rechedk lab Depression cont med reviewed FALL RISK She has had two or more falls in the past year. Depression Screen Positive: PHQ-2 score >= 3 or PHQ-9 score >= 9 PHQ-2 Total: 0 (07/15/2023 11:19 AM) DEPRESSION PLAN OF CARE Her depression screen was positive. Her antidepressant medication was reviewed Health Maintenance Topic Date Due DIABETES ANNUAL RETINAL EXAM Never done DTAP/TDAP/TD VACCINES (2 - Td or Tdap) 03/13/2020 Traditional Medicare (ACO) Annual Wellness Visit 08/09/2022 INFLUENZA VACCINE (1) 12/10/2022 DIABETES ANNUAL FOOT EXAM 01/01/2023 COVID-19 Vaccine ( season) 2023 DIABETES MICROALBUMIN ANNUAL SCREEN 07/02/2023 BREAST CANCER SCREENING 11/19/2023 DIABETES HBA1C Q 6 MONTHS 01/01/2024 LDL CHOLESTEROL ANNUAL 07/03/2024 DIABETES: A1C (Auto Order) 07/03/2024 Colorectal Cancer Screening 08/08/2025 OSTEOPOROSIS SCREENING Completed PNEUMOCOCCAL VACCINE 65+ YEARS Completed ZOSTER VACCINE Completed Tdap Rsv vaccine PLAN: Orders Placed This Encounter CBC WITH DIFFERENTIAL COMPREHENSIVE METABOLIC PANEL LIPID PANEL TSH T4 FREE (Chemistry) VITAMIN B12 LEVEL (Chemistry) C-REACTIVE PROTEIN (Chemistry) URIC ACID (Chemistry) modafiniL (PROVIGIL) 100 mg Tablet rOPINIRole (REQUIP) 3 mg Tablet respiratory syncytial virus recombinant,adjuvanted vaccine (Arexvy, PF,) 120 mcg/0.5 mL Suspension for Reconstitution H OPERATOR documented in this encounter Plan of Treatment Upcoming Encounters Date Type Department Care Team (Late st Contact Info) Description 07/27/2024 9:40 AM CDT Office Visit [facility] Primary Care [address] [place] [address] Eldon Koehler MD [address] [place] [address] [address] [place] [address] Scheduled Orders Name Type Priority Associated Diagnoses Orde r Schedule C-REACTIVE PROTEIN Lab Routine Myalgia Expected: 10/06/2023 (Approximate), Expires: 07/14/2024 URIC ACID Lab Routine Gout, unspecified cause, unspecified chronicity, unspecified site Expected: 10/06/2023 (Approximate), Expires: 07/14/2024 documented as of this encounter Visit Diagnoses Diagnosis Other hyperlipidemia- Primary Other sleep apnea Other specified hypothyroidism Vitamin B12 deficiency (non anemic) Other B-complex deficiencies Myalgia Mylagia and myositis, unspecified Type 2 diabetes mellitus without complication, without long-term current use of insulin Recurrent major depressive disorder, in partial remission Gout, unspecified cause, unspecified chronicity, unspecified site Restless leg syndrome Restless legs syndrome (RLS) documented in this encounter Care Teams Take Out Waitress Relationship Specialty Start Date End Date Eldon Koehler MD PCP - General 10/06/07 documented as of this encounter
--- OUTSIDE RECORDS SUMMARY | 2024-05-22 16:58 | XMS_ITS | Encounter Summary ---
Author Organization [facility] Address [address] [place] [address] Care Team Providers Care Import Manager Name Role Phone Eldon Koehler MD Primary Care Provider [phone] Reason for Visit * Reason Comments Med Refill Encounter Details Date Type Department Care Team (Late st Contact Info) Description 12/23/2023 Refill [facility] Primary Care [facility] [address] [facility] [address] [place] [address] Stefanie Roca, JOSEPH [address] [place] [address] Other specified hypothyroidism; Recurrent major depressive disorder, in partial remission; Fibromyalgia Social History Tobacco Use Types Packs/Day [...] any clubs o r organizations such as pentecostal groups, unions, fraternal or athletic groups, or [...] Description 07/27/2024 9:40 AM CDT Office Visit [facility] Primary [facility] [address] [place] [address] Eldon Koehler MD [address] [place] [address] [address] [place] [id number] documented as of this encounter Visit Diagnoses Diagnosis Other specified hypothyroidism Recurrent major depressive disorder, in partial remission Fibromyalgia Mylagia and myositis, unspecified documented in this encounter Care Teams Import Manager Relationship Specialty Start Date End Date Eldon Koehler MD PCP - General 10/06/07 documented as of this encounter
--- OUTSIDE RECORDS SUMMARY | 2024-05-22 16:58 | XMS_ITS | Encounter Summary ---
Author Organization [facility] Address [address] [place] [address] Care Team Providers Care Membership Counselor Name Role Phone Eldon Koehler MD Primary Care Provider [phone] Reason for Visit * Reason Comments Diabetes Encounter Details Date Type Department Care Team (Latest Contact Info) Description 07/02/2023 12:00 PM LADLE WATCHER Video Visit [facility] [address] [place] [address] Eldon Koehler MD [address] [place] [address] [address] [place] [address] Other hyperlipidemia (Primary Dx); Vitamin B12 deficiency (non anemic); Myalgia; Other specified hypothyroidism; Gout, unspecified cause, unspecified chronicity, unspecified site; Other sleep apnea; Recurrent major depressive disorder, in partial remission; Morbid obesity with body mass index of 40.0-49.9; Type 2 diabetes mellitus without complication, 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 More than 4 times per year [...] Progress Notes * Eldon Koehler MD - 07/02/2023 12:07 PM CST Patient's identity confirmed yes Patient gave verbal consent to have these services billed to their insurance and expressed understanding that co-insurance and deductible may apply: yes This encounter was completed via two-way synchronous audio and video communication. Hpi Since covid inc fatigue Worsening fibromyalgia sx DM lab pend Sleep apnea on cpap Med reviewed Recent lab reviewed Patient Active [...] Type 2 diabetes mellitus without complication E11.9 .There were no vitals taken for this visit. General appearance: over wt nad Head: Normocephalic, without obvious abnormality Eyes: conjunctivae/corneas clear. Lids appear normal. Ears: Hearing grossly normal. Nose: Nares normal. Septum midline. Throat: Lipnormal. Neck: no visible nodules on video Lungs: does not appear short of breath Heart: no neck vein prominence noted no cyanosis noted Abdomen: NA Skin: Skin color, texture face ok Mood stable ASSESSMENT: Encounter Diagnoses Name Primary? Other hyperlipidemia Yes Vitamin B12 deficiency (non anemic) Myalgia Other specified hypothyroidism Gout, unspecified cause, unspecified chronicity, unspecified site Other sleep apnea Recurrent major depressive disorder, in partial remission Morbid obesity with body mass index of 40.0-49.9 Type 2 diabetes mellitus without complication, unspecified whether usp insulin use Myalgia inc since covid fibromyalgia vs other Check lab Chol cont med check lab Recheck b12 Vitd Gout check uric acid Depression has been stable cont med Obesity reassess end above Dm check lab Check urine Sleep apnea continue cpap add provigil Frailty no recent falls Check lab Monitor Health Maintenance Topic Date Due DIABETES ANNUAL RETINAL EXAM Never done DTAP/TDAP/TD VACCINES (2 - Td or Tdap) 03/13/2020 Traditional Medicare (ACO) Annual Wellness Visit 08/09/2022 INFLUENZA VACCINE (1) 12/10/2022 DIABETES ANNUAL FOOT EXAM 01/01/2023 DIABETES HBA1C Q 6 MONTHS 01/06/2023 COVID-19 Vaccine ( season) 2023 LDL CHOLESTEROL ANNUAL 07/02/2023 DIABETES MICROALBUMIN ANNUAL SCREEN 07/02/2023 DIABETES: A1C (Auto Order) 07/09/2023 BREAST CANCER SCREENING 11/19/2023 Colorectal Cancer Screening 08/08/2025 OSTEOPOROSIS SCREENING Completed PNEUMOCOCCAL VACCINE 65+ YEARS Completed ZOSTER VACCINE Completed PLAN: Orders Placed This Encounter CBC WITH DIFFERENTIAL COMPREHENSIVE METABOLIC PANEL LIPID PANEL TSH HEMOGLOBIN A1C VITAMIN B12 LEVEL VITAMIN D 25 HYDROXY URIC ACID (Chemistry) C-REACTIVE PROTEIN (Chemistry) MICROALBUMIN/CREATININE RATIO, RANDOM UR (Favorites) URINALYSIS WITH REFLEX CULTURE modafiniL (PROVIGIL) 100 mg Tablet E WATCHER documented in this encounter Plan of Treatment Upcoming Encounters Date Type Department Care Team (Late st Contact Info) Description 07/27/2024 9:40 AM CDT Office Visit [facility] [address] [place] [address] [address] [place] [address] Eldon Koehler MD [address] [facility] [address] [place] [address] Scheduled Orders Name Type Priority Associated Diagnoses Orde r Schedule MICROALBUMIN/CREATININE RATIO, RANDOM UR Lab Routine Type 2 diabetes mellitus without complication, 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 Expected: 07/02/2023, Expires: 07/01/2024 URINALYSIS WITH REFLEX CULTURE Lab Routine Myalgia Expected: 07/02/2023, Expires: 07/02/2024 documented as of this encounter Procedures Procedure Name Priority Date/Time Associated Diagnosis Comments CBC WITH DIFFERENTIAL Routine 07/03/2023 9:11 AM LADLE WATCHER Vitamin B12 deficiency (non anemic) VITAMIN D 25 HYDROXY Routine 07/03/2023 9:11 AM LADLE WATCHER Myalgia C-REACTIVE PROTEIN Routine 07/03/2023 9: 11 AM LADLE WATCHER Myalgia URIC ACID Routine 07/03/2023 9:11 AM LADLE WATCHER Gout, unspecified cause, unspecified chronicity, unspecified site TSH Routine 07/03/2023 9:11 AM LADLE WATCHER Other hyperlipidemia HEMOGLOBIN A1C Routine 07/03/2023 9:11 AM LADLE WATCHER Type 2 diabetes mellitus without complication, 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 VITAMIN B12 LEVEL Routine 07/03/2023 9:1 1 AM LADLE WATCHER Vitamin B12 deficiency (non anemic) LIPID PANEL Routine 07/03/2023 9:11 AM LADLE WATCHER Other hyperlipidemia COMPREHENSIVE METABOLIC PANEL Routine 07/03/2023 9:11 AM LADLE WATCHER Other hyperlipidemia documented in this encounter Results * (ABNORMAL) C-REACTIVE PROTEIN (07/03/2023 9:11 AM LADLE WATCHER) Pathologist [facility] CRP 25.0(H) <8.0 mg/L [facility] Comment: FASTING:YES FASTING: YES Test Performed at: [facility] ??[phone] Marty Duckworth MD Blood 07/03/2023 9:11 AM LADLE WATCHER 07/03/2023 9:12 AM LADLE WATCHER Eldon Koehler MD CHEMISTRY ORDERABLES Performing Organization Address City/[facility]/ZIP Co de Phone Number [facility] [phone] [facility] [address] * URIC ACID (07/03/2023 9:11 AM LADLE WATCHER) [facility] URIC ACID 6.2 2.5 - 7.0 mg/dL [facility] Comment: Therapeutic target for gout patients: <6.0 mg/dL ?? Test Performed at: [facility] ??[phone] Marty Duckworth MD Blood 07/03/2023 9:11 AM LADLE WATCHER 07/03/2023 9:12 AM LADLE WATCHER Eldon Koehler MD CHEMISTRY ORDERABLES Performing Organization Address City/[facility]/ZIP Co de Phone Number [facility] [phone] [facility] [address] * VITAMIN D 25 HYDROXY (07/03/2023 9:11 AM LADLE WATCHER) VITAMIN D, 25 OH, TOTAL 38 30 - 100 ng/mL [facility] Comment: Vitamin D Status ? 25-OH Vitamin D: Deficiency: ?<20 ng/mL Insufficiency: ? 20 - 29 ng/mL Optimal: ? > or = 30 ng/mL For 25-OH Vitamin D testing on patients on D2-supplementation and patients for whom quantitation of D2 and D3 fractions is required, the [facility]TM) 25-OH VIT D, (D2,D3), LC/MS/MS is recommended: order code [id number] (patients >2yrs). See Note 1 Note 1 For additional information, please refer to http://education.[employer]/faq/NXX597 (This link is being provided for informational/ educational purposes only.) FASTING:YES FASTING: YES Test Performed at: [facility] [address] [place] [address] ??[phone] Marty Duckworth MD Blood 07/03/2023 9:11 AM LADLE WATCHER 07/03/2023 9:12 AM LADLE WATCHER Eldon Koehler MD CHEMISTRY ORDERABLES [facility] [phone] [facility] [address] [place] [phone] * VITAMIN B12 LEVEL (07/03/2023 9:11 AM LADLE WATCHER) VITAMIN B12 611 200 - 1100 pg/mL [facility] Comment: FASTING:YES FASTING: YES Test Performed at: [facility] [address] [place], [place] ??[phone] Marty Duckworth MD Blood 07/03/2023 9:11 AM LADLE WATCHER 07/03/2023 9:12 AM LADLE WATCHER Eldon Koehler MD CHEMISTRY ORDERABLES Performing Organization Address City/[facility] de Phone Number [facility] [phone] [facility] [address] [place] [address] * (ABNORMAL) HEMOGLOBIN A1C (07/03/2023 9:11 AM LADLE WATCHER) HEMOGLOBIN A1C 5.7(H) <5.7 % of total Hgb [facility] Comment: For someone without known diabetes, a hemoglobin A1c value between 5.7% and 6.4% is consistent with prediabetes and should be confirmed with a follow-up test. For someone with known diabetes, a value <7% indicates that their diabetes is well controlled. A1c targets should be individualized based on duration of diabetes, age, comorbid conditions, and other considerations. This assay result is consistent with an increased risk of diabetes. Currently, no consensus exists regarding use of hemoglobin A1c for diagnosis of diabetes for children. ESTIMATED AVERAGE GLUCOSE (MG/DL) 117 mg/dL [facility] ESTIMATED AVERAGE GLUCOSE (MMOL/L) 6.5 mmol/L [facility] Comment: ?? This test was performed on the [employer] c8000 platform. Please be advised that [facility] will move hemoglobin A1c testing to the [employer]ad platform soon. In general, direct comparison of the results from different platforms is not recommended. FASTING:YES FASTING: YES Test Performed at: [facility] [address] [place] ??[phone] [facility] Blood 07/03/2023 9:11 AM LADLE WATCHER 07/03/2023 9:12 AM LADLE WATCHER Eldon Koehler MD CHEMISTRY ORDERABLES Performing Organization Address City/[facility]/ZIP Code Phone Number [facility] [phone] [place] [address] [place] [address] * (ABNORMAL) TSH (07/03/2023 9:11 AM LADLE WATCHER) Pathologist [facility] TSH 8.52(H) 0.40 - 4.50 mIU/L [facility] Comment: Test Performed at: [facility] [place] [id number] [place], [place] ??[phone] Marty Duckworth MD Blood 07/03/2023 9:11 AM LADLE WATCHER 07/03/2023 9:12 AM LADLE WATCHER Eldon Koehler MD CHEMISTRY ORDERABLES [facility] [phone] [address] * (ABNORMAL) LIPID PANEL (07/03/2023 9:11 AM LADLE WATCHER) CHOLESTEROL 212(H) <200 mg/dL [facility] HDL 48(L) > OR = 50 mg/dL [facility] TRIGLYCERIDE 160(H) <150 mg/dL [facility] LDL CALCULATED 134(H) mg/dL (calc) [facility] Comment: Reference range: <100 Desirable range <100 mg/dL for primary prevention; ?? <70 mg/dL for patients with CHD or diabetic patients with > or = 2 CHD risk factors. LDL-C is now calculated using the Christopher-Parish calculation, which is a validated novel method providing better accuracy than the Friedewald equation in the estimation of LDL-C. Christopher KAISER et al. ERLIN. 2013;310(19): 7825-5214 (http://education.iYogi.TuCloset.com/faq/QWU908) CHOL/HDL RATIO 4.4 <5.0 (calc) [facility] TOTAL NON-HDL CHOL(LDL+VLDL) 164(H) <130 mg/dL (calc) [facility] Comment: For patients with diabetes plus 1 major ASCVD risk factor, treating to a non-HDL-C goal of <100 mg/dL (LDL-C of <70 mg/dL) is considered a therapeutic option. Test Performed at: [facility] ??[phone] Marty Duckworth MD Blood 07/03/2023 9:11 AM LADLE WATCHER 07/03/2023 9:12 AM LADLE WATCHER Eldon Koehler MD CHEMISTRY ORDERABLES [facility] [phone] [facility] [address] [place] [address] * (ABNORMAL) COMPREHENSIVE METABOLIC PANEL (07/03/2023 9:11 AM LADLE WATCHER) GLUCOSE 101(H) 65 - 99 mg/dL [facility] Comment: ? Fasting reference interval For someone without known diabetes, a glucose value between 100 and 125 mg/dL is consistent with prediabetes and should be confirmed with a follow-up test. BUN 12 7 - 25 mg/dL [facility] CREATININE 1.01(H) 0.60 - 1.00 mg/dL [facility] GFR 60 > OR = 60 mL/min/1.7 3m2 [facility] BUN/CREAT RATIO 12 6 - 22 (calc) [facility] SODIUM 140 135 - 146 mmol/L [facility] POTASSIUM 4.3 3.5 - 5.3 mmol/L [facility] CHLORIDE 102 98 - 110 mmol/L [facility] CO2 29 20 - 32 mmol/L [facility] CALCIUM 9.1 8.6 - 10.4 mg/dL [facility] TOTAL PROTEIN 6.9 6.1 - 8.1 g/dL [facility] ALBUMIN 4.2 3.6 - 5.1 g/dL [facility] GLOBULIN 2.7 1.9 - 3.7 g/dL (calc) [facility] ALBUMIN/GLOBULIN RATIO 1.6 1.0 - 2.5 (calc) [facility] BILIRUBIN TOTAL 0.7 0.2 - 1.2 mg/dL [facility] ALKALINE PHOSPHATASE 126 37 - 153 U/L [facility] AST 18 10 - 35 U/L [facility] ALT 15 6 - 29 U/L [facility] Comment: FASTING:YES FASTING: YES Test Performed at: [facility] [address] [place], [place] ??[phone] Marty Duckworth MD Blood 07/03/2023 9:11 AM LADLE WATCHER 07/03/2023 9:12 AM LADLE WATCHER Eldon Koehler MD CHEMISTRY ORDERABLES [facility] [phone] [facility] [address] [place] [address] * (ABNORMAL) CBC WITH DIFFERENTIAL (07/03/2023 9:11 AM LADLE WATCHER) WBC 8.3 3.8 - 10.8 Thousand/u L [facility] RBC 4.82 3.80 - 5.10 Million/uL [facility] HEMOGLOBIN 13.3 11.7 - 15.5 g/dL [facility] HEMATOCRIT 42.7 35.0 - 45.0 % [facility] MCV 88.6 80.0 - 100.0 fL [facility] MCH 27.6 27.0 - 33.0 pg [facility] MCHC 31.1(L) 32.0 - 36.0 g/dL [facility] RDW 13.0 11.0 - 15.0 % [facility] PLATELETS 342 140 - 400 Thousand/u L [facility] MPV 11.6 7.5 - 12.5 fL [facility] NEUTROPHIL ABSOLUTE 5,727 1,500 - 7,800 cells/uL [facility] LYMPHOCYTE ABSOLUTE 1,710 850 - 3,900 cells/uL [facility] MONOCYTE ABSOLUTE 656 200 - 950 cells/uL [facility] EOSINOPHIL ABSOLUTE 141 15 - 500 cells/uL [facility] BASOPHILS ABSOLUTE 66 0 - 200 cells/uL [facility] NEUTROPHIL 69 % [facility] LYMPHOCYTES 20.6 % [facility] MONOCYTE 7.9 % [facility] EOSINOPHILS 1.7 % [facility] BASOPHILS 0.8 % [facility] Comment: FASTING:YES FASTING: YES Test Performed at: [facility] [address] [place], [place] ??[phone] Marty Duckworth MD Blood 07/03/2023 9:11 AM LADLE WATCHER 07/03/2023 9:12 AM LADLE WATCHER Eldon Koehler MD HEMATOLOGY ORDERABLE S [facility] [phone] [facility] [address] [place] [address] documented in this encounter Visit Diagnoses Diagnosis Other hyperlipidemia- Primary Vitamin B12 deficiency (non anemic) Other B-complex deficiencies Myalgia Mylagia and myositis, unspecified Other specified hypothyroidism Gout, unspecified cause, unspecified chronicity, unspecified site Other sleep apnea Recurrent major depressive disorder, in partial remission Morbid obesity with body mass index of 40.0-49.9 Type 2 diabetes mellitus without complication, unspecified whether usp insulin use Frail elderly Senility without mention of psychosis documented in this encounter Care Teams Membership Counselor Relationship Specialty Start Date End Date Eldon Koehler MD PCP - General 10/06/07 documented as of this encounter
--- OUTSIDE RECORDS SUMMARY | 2024-05-22 16:58 | XMS_ITS | Encounter Summary ---
Author Organization [facility] Address [address] [place] [address] Care Team Providers Care Protein Chemist Name Role Phone Eldon Koehler MD Primary Care Provider [phone] Reason for Visit * Reason Onset Date Comments Medication Refill 02/16/2024 Encounter Details Date Type Department Care Team (Late st Contact Info) Description 02/16/[address] [facility] Primary Care [address] [place] [address] Eldon Koehler MD [address] [place] [address] [address] [place] [address] Social History Tobacco Use Types [...] often do you attend chur ch or druze services? More than 4 times per year 04/30/2019 Do you belong to any clubs o r organizations such as congregational groups, unions, fraternal or athletic groups, or [...] as of this encounter Miscellaneous Notes * Addendum Note - Awa Ledesma - 02/17/2024 4:08 PM CDTAddended by: AWA LEDSEMA on: 02/17/2024 04:08 PM Modules accepted: Orders * Telephone Encounter - Adriana Max LPN - 02/16/2024 11:18 AM CDT Recent Visits Date Type Provider Dept 01/21/24 Office Visit Eldon Koehler MD [facility] 12/01/23 Office Visit Eldon Koehler MD [facility] 07/15/23 Office Visit Eldon Koehler MD [facility] 07/02/23 Video Visit Eldon Koehler MD [facility] 01/14/23 Office Visit Eldon Koehler MD [facility] Showing recent visits within past 540 days with a meds authorizing provider and meeting all other requirements Future Appointments No visits were found meeting these conditions. Showing future appointments within next 150 days with a meds authorizing provider and meeting all other requirements documented in this encounter Plan of Treatment Upcoming Encounters Date Type Department Care Team (Late st Contact Info) Description 07/27/2024 9:40 AM CDT Office Visit [facility] Primary Care [address] [place] [address] Eldon Koehler MD [address] [place] [address] [address] [place] [address] documented as of this encounter Visit Diagnoses Not on filedocumented in this encounter Care Teams Protein Chemist Relationship Specialty Start Date End Date Eldon Koehler MD PCP - General 10/06/07 documented as of this encounter
--- OUTSIDE RECORDS SUMMARY | 2024-05-22 16:58 | XMS_ITS | Encounter Summary ---
Author Organization [facility] Address [address] [place] [address] Care Team Providers Care Punch Press Feeder Name Role Phone Eldon Koehler MD Primary Care Provider [phone] Encounter Details Date Type Department Care Team (Late st Contact Info) Description 06/05/2023 External Device Data STL ABSTRACTION Provider, Abstract [...] any clubs o r organizations such as synagogue groups, unions, fraternal or athletic groups, or [...] Description 07/27/2024 9:40 AM CDT Office Visit [facility] Primary Care [place] [address] [place] [address] Eldon Koehler MD [address] [place] [address] [place] [address] documented as of this encounter Visit Diagnoses Not on filedocumented in this encounter Care Teams Punch Press Feeder Relationship Specialty Start Date End Date Eldon Koehler MD PCP - General 10/06/07 documented as of this encounter
--- OUTSIDE RECORDS SUMMARY | 2024-05-22 16:58 | XMS_ITS | Encounter Summary ---
Author Organization [facility] Address [address] [place] [address] Care Team Providers Care Electric Motor Winder Name Role Phone Eldon Koehler MD Primary Care Provider [phone] Reason for Visit * Reason Comments Thyroid Disorder (office visit) Encounter Details Date Type Department Care Team (Late st Contact Info) Description 07/09/2022 11:40 AM VAULT ATTENDANT Office Visit [facility] Primary Care [address] [place] [address] Eldon Koehler MD [address] [place] [address] [address] [place] [address] Screening mammogram, encounter for (Primary Dx); Recurrent major depressive disorder, in partial remission; Morbid obesity with body mass index of 40.0-49.9; Type 2 diabetes mellitus without complication, unspecified whether longitudinal float operator insulin use; Mild intermittent asthma without complication; Other specified hypothyroidism; Other sleep apnea; Other hyperlipidemia; Foot pain, left; Vitamin B12 deficiency (non anemic); Gastroesophageal reflux disease without esophagitis Social History Tobacco Use Types Packs/Day Years Used Date Smoking Tobacco: Never Smokeless Tobacco: Never Tobacco Cessation:Counseling Given: Not Answered Alcohol Use Standard Drinks/Week Comments Never 0 [...] How often do you attend chur or worship services? More than 4 times per year 04/30/2019 Do you belong to any clubs o r organizations such as jain groups, unions, fraternal or athletic groups, or [...] suspected to have Coronavirus/COVID-19? No / Unsure 07/09/2022 11:21 AM VAULT ATTENDANT documented as of this encounter Last Filed Vital Signs Vital Sign Reading Time Taken Comments Blood Pressure 118/80 07/09/2022 11:28 AM VAULT ATTENDANT Pulse 88 07/09/2022 11:28 AM VAULT ATTENDANT Temperature 36.5 ??C (97.7 ??F) 07/09/2022 11:[address] Respiratory Rate - - Oxygen Saturation 96% 07/09/2022 11:28 AM VAULT ATTENDANT Inhaled Oxygen Concentration - - Weight 118.4 kg (261 lb) 07/09/2022 11:28 AM VAULT ATTENDANT Height 167.6 cm (5' 6 ) 07/09/2022 11:28 AM VAULT ATTENDANT Body Mass Index 42.13 07/09/2022 11:28 AM VAULT ATTENDANT documented in this encounter Progress Notes * Eldon Koehler MD - 07/09/2022 11:33 AM CST Hpi Djd same Occ falls Dm stable Bp ok On chol med Trying with cpap Med reviewed Recent lab reviewed Patient [...] without comorbidity) E66.9 Prediabetes R73.03 exam BP 118/80 Pulse 88 Temp 97.7 ??F (36.5 ??C) Ht 5' 6 (1.676 m) Wt 118.4 kg (261 lb) SpO2 96% BMI 42.13 kg/m?? General appearance: over wt nad Head: [...] Name Primary? Screening mammogram, encounter for Yes Recurrent major depressive disorder, in partial remission Morbid obesity with body mass index of 40.0-49.9 Type 2 diabetes mellitus without complication, unspecified whether mcfp insulin use Mild intermittent asthma without complication Other specified hypothyroidism Other sleep apnea Other hyperlipidemia Foot pain, left Vitamin B12 deficiency (non anemic) Gastroesophageal reflux disease without esophagitis Dm continue med stable Depression stable cont med stress reviewed Obesity continue work diet and ex Asthma stable Thyroid stable contmed Sleep apnea continue cpap benefits fromuse Chol cont med Stable Foot pain --check uric acid some mtp tenderness Recheck b12 Gerd cont med stable Normal BMI Range: 18 & older: > or = 18.5 and < 25 Body mass index is 42.13 kg/m??. Abnormal high BMI: Patient counseled on lifestyle modifications including weight loss and daily exercise. FALL RISK She has had two or more falls in the past year. Positive: PHQ-2 score >= 3 or PHQ-9 score >= 9 PHQ-2 Total: 0 (07/09/2022 1:00 PM) PHQ-9 Total: 5 (08/08/2021 10:17 AM) DEPRESSION PLAN OF CARE Her depression screen was negative. Health Maintenance Topic Date Due DIABETES ANNUAL RETINAL EXAM Never done DTAP/TDAP/TD VACCINES (2 - Td or Tdap) 03/13/2020 BREAST CANCER SCREENING 11/03/2020 COVID-19 Vaccine (4 - Booster for Pfizer series) 06/01/2021 Annual Wellness Visit-Medicare 08/09/2022 DIABETES HBA1C Q 6 MONTHS 01/06/2023 LDL CHOLESTEROL ANNUAL 07/02/2023 DIABETES MICROALBUMIN ANNUAL SCREEN 07/02/2023 DIABETES ANNUAL FOOT EXAM 07/09/2023 DIABETES: A1C (Auto Order) 07/09/2023 Colorectal Cancer Screening 08/08/2025 OSTEOPOROSIS SCREENING Completed PNEUMOCOCCAL VACCINE 65+ YEARS Completed ZOSTER VACCINE Completed INFLUENZA VACCINE Completed Eye exam pend PLAN: Orders Placed This Encounter MAMMO SCRN BILAT 3D ARMANDO W OR WO CAD CBC WITH DIFFERENTIAL (Favorites) COMPREHENSIVE METABOLIC PANEL (Favorites) HEMOGLOBIN A1C (Favorites) LIPID PANEL (Favorites) TSH (Favorites) URIC ACID (Chemistry) VITAMIN B12 LEVEL (Chemistry) POC HEMOGLOBIN A1C T ATTENDANT documented in this encounter Plan of Treatment Upcoming Encounters Date Type Department Care Team (Late st Contact Info) Description 07/27/2024 9:40 AM CDT Office Visit [facility] [place] [address] [facility] [address] [place] [id number] Eldon Koehler MD [address] [place] [address] [address] [place] [id number] documented as of this encounter Procedures Procedure Name Priority Date/Time Associated Diagnosis Comments POC HEMOGLOBIN A1C Routine 07/09/2022 12 :06 PM VAULT ATTENDANT Type 2 diabetes mellitus without complication, unspecified whether mcfp insulin use documented in this encounter Results * (ABNORMAL) POC HEMOGLOBIN A1C (07/09/2022 12:06 PM VAULT ATTENDANT) HGB A1C POC 5.8(A) 4.0 - 5.6 % [facility] Blood, whole 07/09/2022 12:0 6 PM VAULT ATTENDANT Eldon Koehler MD POINT OF CARE TESTIN G [facility] CLIA# [id number] [address] [place], [place] [address] [place] [address] documented in this encounter Visit Diagnoses Diagnosis Screening mammogram, encounter for- Primary Recurrent major depressive disorder, in partial remission Morbid obesity with body mass index of 40.0-49.9 Type 2 diabetes mellitus without complication, unspecified whether longitudinal float operator insulin use Mild intermittent asthma without complication Unspecified asthma Other specified hypothyroidism Other sleep apnea Other hyperlipidemia Foot pain, left Pain in limb Vitamin B12 deficiency (non anemic) Other B-complex deficiencies Gastroesophageal reflux disease without esophagitis Esophageal reflux documented in this encounter Care Teams Electric Motor Winder Relationship Specialty Start Date End Date Eldon Koehler MD PCP - General 10/06/07 documented as of this encounter
--- OUTSIDE RECORDS SUMMARY | 2024-05-22 16:58 | XMS_ITS | Encounter Summary ---
Author Organization [facility] Address [address] [place] [address] Care Team Providers Care Track Repair Supervisor Name Role Phone Eldon Koehler MD Primary Care Provider [phone] Reason for Visit * Reason Comments Med Refill Encounter Details Date Type Department Care Team (Late st Contact Info) Description 07/12/2023 Refill [facility] Internal Medicine [address] [address] Eldon Koehler MD [address] [place] [address] Fibromyalgia Social History Tobacco Use Types Packs/Day [...] often do you attend chur ch or pentecostalism services? More than 4 times per year 04/30/2019 Do you belong to any clubs o r organizations such as lutheran groups, unions, fraternal or athletic groups, or [...] 07/27/2024 9:40 AM CDT Office Visit [facility] Primary Care [address] [address] Eldon Koehler MD [address] [place] [address] documented as of this encounter Visit Diagnoses Diagnosis Fibromyalgia Mylagia and myositis, unspecified documented in this encounter Care Teams Track Repair Supervisor Relationship Specialty Start Date End Date Eldon Koehler MD PCP - General 10/06/07 documented as of this encounter
--- OUTSIDE RECORDS SUMMARY | 2024-05-22 16:58 | XMS_ITS | Encounter Summary ---
Author Organization [facility] Address [address] [place] [address] Care Team Providers Care Ultrasound Technologist Name Role Phone Eldon Koehler MD Primary Care Provider [phone] Reason for Visit * Eval and Treat (Routine) - Closed Specialty Diagnoses / Procedures Referred By Carmen t Referred To Contact Audiology Diagnoses Ruptured eardrum audio + car packer/ ruptured eardrum Procedures AUDIOGRAM Metal Stamping Machine Operator, Wilfrid Farooq MD [address] [place] [address] [facility] Audiology Hearing Aid - Oniel Flores [address] [place] [address] Referral ID Status Reason Start Date Expiration Date Visits Re quested Visits Authorized [id number] Closed 09/09/2022 10/10/2023 12 12 Encounter Details Date Type Department Care Team (Latest Contact Info) Description 09/09/2022 3:30 PM CDT Procedure visit [facility] - Oniel Flores [facility] [address] [place] [address] Impacted cerumen of left ear (Primary Dx) Social History Tobacco Use Types [...] often do you attend chur ch or religion services? More than 4 times per year 04/30/2019 Do you belong to any clubs o r organizations such as mandaeism groups, unions, fraternal or athletic groups, or [...] AM CDT documented as of this encounter Progress Notes * Orlando Coates AU.Oseas - 09/09/2022 3:30 PM CDT Images from the original note were not included. Report of Audiologic Evaluation Patient Name: Winifred Rodriguez Date of : 1950 Test Date: 09/09/2022 Test Location: [facility] Audiology - Oniel Davidson [facility] Referring Physician: Wilfrid Maxwell M.D. History: The patient presented for an audiologic evaluation prior to a Dr. Maxwell appointment on 09/25/2022. The patient reported that she ruptured her eardrum two weeks ago as she tripped when using a q-tip. She stated that she was told her left ear canal is impacted. The patient mentioned that she has somedifficulty hearing and that she has had tinnitus in the right ear since the eardrum was ruptured. She denied any dizziness, history of noise exposure, and family history of hearing loss. Otoscopy: prior to being examined by Dr. Maxwell RIGHT: clear ear canal and apparently intact tympanic membrane (eardrum) LEFT: occluding cerumen (ear wax) which prevented complete visualization of the tympanic membrane (eardrum) Tympanogram: prior to being examined by Dr. Maxwell RIGHT: Hypomobile (low static admittance) otherwise within normal limits (normal ear canal volume and peak middle ear pressure) LEFT: Hypomobile (low static admittance) otherwise within normal limits (normal ear canal volume and peak middle ear pressure) Testing was discontinued and Dr. Maxwell agreed to examine the patient. The patient did not return for an audiologic evaluation after she was examined by Dr. Maxwell. Recommendations: -Follow-up with Dr. Maxwell as needed -Cerumen removal -Audiogram once ears are medically cleared -Hearing protection in noise Tierra Uriostegui, [facility]-A Clinical Donor Support Technician [facility] Department of Audiology Diagnosis: Impacted cerumen of the left ear H61.22 Procedure: Tympanometry (CPT 98286) documented in this encounter Plan of Treatment Upcoming Encounters Date Type Department Care Team (Late st Contact Info) Description 07/27/2024 9:40 AM CDT Office Visit [facility] Primary Care [address] [place] [address] Eldon Koehler MD [address] [place] [address] [address] [place] [address] documented as of this encounter Visit Diagnoses Diagnosis Impacted cerumen of left ear- Primary Impacted cerumen documented in this encounter Care Teams Ultrasound Technologist Relationship Specialty Start Date End Date Eldon Koehler MD PCP - General 10/06/07 documented as of this encounter
--- OUTSIDE RECORDS SUMMARY | 2024-05-22 16:58 | XMS_ITS | Encounter Summary ---
Author Organization [facility] Address [address] [place] [address] Care Team Providers Care Burrer Hand Name Role Phone Eldon Koehler MD Primary Care Provider [phone] Encounter Details Date Type Department Care Team (Late st Contact Info) Description 12/03/2022 Orders Only [facility] Primary Care [address] [place] [address] [place] [address] Eldon Koehler MD [address] [facility] [address] [place] [address] Visit for screening mammogram Social History Tobacco Use Types Packs/Day Years [...] any clubs o r organizations such as oriental orthodox groups, unions, fraternal or athletic groups, or [...] 9:40 AM CDT Office Visit [facility] [place] [address] Eldon Koehler MD [address] [place] [address] [address] documented as of this encounter Procedures Procedure Name Priority Date/Time Associated Diagnosis Comments MAMMO SCREEN BILAT W OR WO CAD Routine 11/18/2022 Visit for screening mammogram documented in this encounter Results * MAMMO SCREEN BILAT W OR WO CAD (11/18/2022) Anatomical Region Laterality Modality Breast Bilateral Other Eldon Koehler MD MAMMO ORDERABLES documented in this encounter Visit Diagnoses Diagnosis Visit for screening mammogram Other screening mammogram documented in this encounter Care Teams Burrer Hand Relationship Specialty Start Date End Date Eldon Koehler MD PCP - General 10/06/07 documented as of this encounter
--- OUTSIDE RECORDS SUMMARY | 2024-05-22 16:58 | XMS_ITS | Encounter Summary ---
Author Organization [facility] Address [address] [place]: Epic Prelude ADT [place] [address] Care Team Providers Care Material Checker Name Role Phone Eldon Koehler MD Primary Care Provider Encounter Details Date Type Department Care Team (Latest Contact Info) Description 01/01/2022 Travel Social History Tobacco Use Types Packs/Day Years [...] week 04/30/2019 How often do you attend [facility] or jehovah's witness services? More than 4 [...] AM CDT Office Visit [facility] Primary Care [place] [address] [place] [address] Eldon Koehler MD [address] [place] [address] [address] documented as of this encounter Visit Diagnoses Not on filedocumented in this encounter Additional Health Concerns Assessment Noted Time PHQ-9 Depression Total Score: 2 08/09/19 22 10:17 AM CDT documented as of this encounter Care Teams Material Checker Relationship Specialty Start Date End Date Eldon Koehler MD PCP - General 10/06/07 documented as of this encounter
--- OUTSIDE RECORDS SUMMARY | 2024-05-22 16:58 | XMS_ITS | Encounter Summary ---
Author Organization [facility] Address [address] [place] [address] Care Team Providers Care Intern Architect Name Role Phone Eldon Koehler MD Primary Care Provider [phone] Encounter Details Date Type Department Care Team (Late st Contact Info) Description 06/04/2023 External Device Data STL ABSTRACTION Provider, Abstract [...] How often do you attend chur or adventist services? More than 4 times per year 04/30/2019 Do you belong to any clubs o r organizations such as zoroastrianism groups, unions, fraternal or athletic groups, or [...] Description 07/27/2024 9:40 AM CDT Office Visit [facility] Primary Care [place] [address] [place] [address] Eldon Koehler MD [address] [place] [address] [place] [address] documented as of this encounter Visit Diagnoses Not on filedocumented in this encounter Care Teams Intern Architect Relationship Specialty Start Date End Date Eldon Koehler MD PCP - General 10/06/07 documented as of this encounter
--- OUTSIDE RECORDS SUMMARY | 2024-05-22 16:58 | XMS_ITS | Encounter Summary ---
Author Organization [facility] Address [address] [place] [address] Care Team Providers Care Fruit And Vegetable Parer Name Role Phone Eldon Koehler MD Primary Care Provider [phone] Reason for Visit * Reason Comments Med Refill Encounter Details Date Type Department Care Team (Late st Contact Info) Description 08/01/2022 Refill [facility] Internal Medicine [address] [phone] Adriana Rubio, ANP [address] [facility] [address] [place] [address] Social History Tobacco Use Types Packs/Day Years [...] any clubs o r organizations such as jew groups, unions, fraternal or athletic groups, or [...] Coronavirus/COVID-19? No / Unsure 07/09/2022 11:21 AM CARDIAC SURGEON documented as of this encounter Plan of Treatment Upcoming Encounters Date Type Department Care Team (Late st Contact Info) Description 07/27/2024 9:40 AM CDT Office Visit [facility] Primary Care [place] [address] [place] [address] Eldon Koehler MD [address] [place] [address] [address] [place] [address] documented as of this encounter Visit Diagnoses Not on filedocumented in this encounter Care Teams Fruit And Vegetable Parer Relationship Specialty Start Date End Date Eldon Koehler MD PCP - General 10/06/07 documented as of this encounter
--- OUTSIDE RECORDS SUMMARY | 2024-05-22 16:58 | XMS_ITS | Clinical Summary ---
Author Organization [facility] Address [address] [place] [address] Care Team Providers Care Clinical Radiologist Name Role Phone Eldon Koehler MD Primary Care Provider [phone] Allergies Active Allergy Reactions Criticality Noted Date Comments Clindamycin Rash,Itching Medium 09/03/2010 Codeine Nausea and Vomiting Low 08/29/2008 Nickel Hives High Nsaids (Non-Steroidal Anti-Inflammatory Drug) Other (See Comments) Low 02/05/2017 S/P SLEEVE GASTRECTOMY Medications Medication Sig Dispensed Refills Start Date End Date Status OTHER mvi gummies for women over 50 Calcium with D3 gummies B12 gummies 1500mcg Active rOPINIRole (REQUIP) 0.5 mg tablet Take 1 Tablet (0.5 mg) by mouth late in the day. 90 Tablet 3 03/29/2021 Active Additional Information Patient not taking.Reported on 01/21/2024 albuterol sulfate HFA 90 mcg/actuation aerosol inhaler Take 2 Puffs by inhalation 4 times daily as needed for Shortness of Breath. 8.5 Gram 2 08/02/2022 Active rOPINIRole (REQUIP) 2 mg Tablet Take 1 Tablet (2 mg) by mouth daily at bedtime. 90 Tablet 3 12/24/2022 Active Additional Information Patient not taking.Reported on 01/21/2024 busPIRone (BUSPAR) 10 mg tabletIndications:R ecurrent major depressive disorder, in partial remission Take 1 Tablet (10 mg) by mouth 3 times daily. 180 Tablet 3 12/24/2022 Active HYDROcodone-acetami nophen (NORCO) 5-325 mg tabletIndications:L umbar radiculopathy Take 1 Tablet by mouth every 4 hours as needed for Pain, Moderate. Max Daily Amount: 6 Tablets 42 Tablet 01/14/2023 Active LORazepam (ATIVAN) 0.5 mg tabletIndications:C laustrophobia Take 1 Tablet (0.5 mg) by mouth see administration instructions. 1 tab before mri take another if still anxious 1 Tablet 02/13/2023 Active benzonatate (TESSALON) 200 mg capsule Take 1 Capsule (200 mg) by mouth 3 times daily as needed for Cough. 30 Capsule 2 06/20/2023 Active Additional Information Patient not taking.Reported on 07/15/2023 methylPREDNISolone (MEDROL DOSPACK) 4 mg Tablets, Dose Pack As directed 21 Tablet 07/04/2023 Active Additional Information Patient not taking.Reported on 07/15/2023 pregabalin (LYRICA) 50 mg CapsuleIndications: Fibromyalgia take 1 capsule by mouth every 12 hours 180 Capsule 3 07/14/2023 Active modafiniL (PROVIGIL) 100 mg TabletIndications:O ther sleep apnea Take 1 Tablet (100 mg) by mouth daily. 30 Tablet 3 07/15/2023 Active rOPINIRole (REQUIP) 3 mg Tablet Take 1 Tablet (3 mg) by mouth daily at bedtime. 100 Tablet 3 09/04/2023 Active ezetimibe (ZETIA) 10 mg tabletIndications:O ther hyperlipidemia take 1 tablet by mouth daily 90 Tablet 3 12/05/2023 Active atorvastatin (LIPITOR) 20 mg tabletIndications:O ther hyperlipidemia TAKE 1 TABLET BY MOUTH LATE IN THE DAY 90 Tablet 3 12/23/2023 Active omeprazole (PriLOSEC) 20 mg Capsule, Delayed Release(E.C.)Indica tions:Gastroesophag eal reflux disease without esophagitis take 1 capsule by mouth daily 90 Capsule 3 12/23/2023 Active DULoxetine (CYMBALTA) 60 mg Capsule, Delayed Release(E.C.)Indica tions:Recurrent major depressive disorder, in partial remission take 1 capsule by mouth daily 90 Capsule 3 12/23/2023 Active metoprolol succinate (TOPROL XL) 25 mg Extended Release 24 hour tablet take 1 tablet by mouth daily 90 Tablet 3 12/23/2023 Active levothyroxine 150 mcg tabletIndications:O ther specified hypothyroidism take 1 tablet by mouth daily 90 Tablet 3 12/23/2023 Active buPROPion HCL (WELLBUTRIN SR) 150 mg Sustained Release 12 hour tabletIndications:R ecurrent major depressive disorder, in partial remission take 1 tablet by mouth daily 90 Tablet 3 12/23/2023 Active celecoxib (CeleBREX) 200 mg capsuleIndications: Fibromyalgia TAKE 1 CAPSULE BY MOUTH TWICE DAILY 180 Capsule 3 12/23/2023 Active clotrimazole (LOTRIMIN) 1 % Cream Apply to affected area 2 times daily. 85 Gram 3 02/16/2024 Active tirzepatide (Mounjaro) 2.5 mg/0.5 mL Pen Injector Lot: [id number] ex: 01/30/2025 qty: 1 0.5 mL 02/17/2024 Active tirzepatide (Mounjaro) 2.5 mg/0.5 mL Pen Injector Inject 2.5 mg by subcutaneous injection every 7 days. 6 mL 2 02/20/2024 Active methylPREDNISolone (MEDROL DOSPACK) 4 mg Tablets, Dose Pack As directed 21 Tablet 03/01/2024 Active clotrimazole-betame thasone (LOTRISONE) 1-0.05 % Cream Apply to affected area 2 times daily. 45 Gram 2 03/01/2024 Active ketoconazole (NIZORAL) 2 % Shampoo Use daily 120 mL 1 03/01/2024 Active Active Problems Patient Care Coordination No te Formatting of this note migh t be different from the original. Charisse- dermatology [id number] 01/21/24 Problem Noted Date Diagnosed Date Type 2 diabetes mellitus without complication Frail elderly 01/14/2023 Prediabetes 12/24/2019 Obesity (BMI 35.0-39.9 without comorbidity) 05/2017 Meralgia paresthetica 05/23/2015 Hyperhidrosis 05/31/2014 Overview (05/31/2014): Scalp- robinul injections per derm Fibromyalgia 04/19/2014 GERD (gastroesophageal reflux disease) 4 Restless leg syndrome 10/04/2007 Impaired fasting glucose 08/03/2007 Asthma 06/05/2007 Sleep apnea 06/05/2007 Backache, unspecified 03/02/2007 Headache(784.0) 12/17/2006 Hypothyroidism 04/19/2005 Osteoarthritis 10/19/2004 Recurrent major depressive disorder, in partial remission 06/08/2003 Hyperlipemia 06/07/2003 Resolved Problems Problem Noted Date Diagnosed Date Resolved Date Morbid obesity due to excess calories 01/21/2017 06/12/2017 Diarrhea 03/02/2007 10/04/2007 Breast screening, unspecified 10/03/2005 10/04/2007 Cervicalgia 08/26/2005 10/04/2007 Acute pharyngitis 07/20/2004 10/04/2007 Acute bronchitis 03/14/2004 10/04/2007 Encounters Date Type Department Care Team Description 03/01/2024 3:40 PM CDT Office Visit [address] [place] [address] Eldon Koehler MD Screening mammogram, encounter for (Primary Dx); Rash; Type 2 diabetes mellitus without complication, without long-term current use of insulin; Recurrent major depressive disorder, in partial remission 02/20/[address] [place] [id number] Eldon Koehler MD from Last 3 Months Immunizations Name Administration Dates Next Due (ADACEL/BOOSTRIX)(10 YR UP) TDAP VACCINE, 0.5ML, IM 03/13/2010 (PFIZER)(12 YR UP) COVID-19 VACCINE - EMERGENCY USE AUTHORIZATION, MRNA, [id number](PF) 30 MCG/0.3 ML IM SUSP 04/06/2021,07/29/2020,07/07/2020 (PNEUMOVAX 23)(50 YRS UP) PN EUMOCOCCAL POLYSACCHARIDE (PPV23) 0.5 ML, IM 08/08/2021 (PREVNAR 13)(6 WKS UP) PNEUM OCOCCAL CONJUGATE (PCV13) 0.5 ML, IM 04/13/2018,03/19/2017 (SHINGRIX)(50 YRS UP) ZOSTER VACCINE RECOMBINANT, 0.5 ML, IM 05/08/2018,10/24/2017 (SPIKEVAX) (12 YRS UP PRIMAR Y SERIES) COVID-19 VACCINE - [id number]-[id number](PF) 100 MCG/0.5 ML IM SUSP 02/15/2024 (TDVAX)(7 YRS UP) TETANUS AN D DIPHTHERIA TOXOIDS, ADSORBED (2 LF OF TETANUS TOXOID AND 2 LF OF DIPHTHERIA TOXOID), 0.5ML (PF), IM 10/30/1999 INFLUENZA VACCINE HIGH DOSE QUADRIVALENT 65 YR UP PF IM 01/21/2024,01/01/2022,04/10/2021,02/14 INFLUENZA VACCINE HIGH DOSE TRIVALENT SPLIT VIRUS, (65 YR UP), 0.5ML (PF), IM 01/21/2024 Influenza Seasonal Unspecifi ed Formulation IM 02/10/2020,03/01/2016,02/19/2014,03/24,02/15/2012,03/11/2011,03/07/2010 Influenza Vaccine High Dose 65+ Yrs IM 9 Influenza Vaccine Quad Split 18 Yrs+ Im 04/13/2018 Pneumococcal conjugate, unsp ecified formulation 05/12/2010 Family History Medical History Relation Name Comments Kidney Disease Brother 1 HIERO Healthy Brother 2 SHEREEN Healthy Brother 3 BEENA Stroke Father Stroke Maternal Grandfather Colon Cancer Mother Stroke Paternal Grandfather Relation Name Status Comments Brother 1 HIERO Alive Brother 2 SHEREEN Alive Brother 3 BEENA Alive Father Maternal Grandfather Maternal Grandmother Mother Paternal Grandfather Paternal Grandmother Social History Tobacco Use Types Packs/Day Years [...] How often do you attend chur or orthodoxy services? More than 4 times per year 04/30/2019 Do you belong to any clubs o r organizations such as jainism groups, unions, fraternal or athletic groups, or [...] on file Sexual Orientation Not on file Last Filed Vital Signs Vital Sign Reading Time Taken Comments Blood Pressure 126/78 03/01/2024 3:29 PM CDT Pulse 94 03/01/2024 3:29 PM CDT Temperature 36.6 ??C (97.8 ??F) 01/14/2023 2:32 PM CD T Respiratory Rate 17 01/14/2023 2:32 PM CDT Oxygen Saturation 95% 03/01/2024 3:29 PM CDT Inhaled Oxygen Concentration - - Weight 106.1 kg (233 lb 12.8 oz) 03/01/2024 3:29 PM CDT Height 170.2 cm (5' 7 ) 03/01/2024 3:29 PM CDT Body Mass Index 36.62 03/01/2024 3:29 PM CDT Plan of Treatment Upcoming Encounters Date Type Department Care Team (Late st Contact Info) Description 07/27/2024 9:40 AM CDT Office Visit [facility] [address] [place] [address] Eldon Koehler MD [address] [address] Health Maintenance Due Date Last Done Comments FIT-DNA Q 3 years 1997 FIT/FOBT Q 1 year 1997 Flex Sig/CT Colonography Q 5 years 1997 RSV VACCINE (60+ or ) (1 - Risk 60-74 years 1-dose series) 2012 DTAP/TDAP/TD VACCINES (2 - T d or Tdap) 03/13/2020 03/13/2010, 10/30/1999 DIABETES MICROALBUMIN ANNUAL SCREEN 07/02/2023 07/02/2022 BREAST CANCER SCREENING 11/19/2023 11/19/19, 11/04/2019, 11/15/2016, Additional history exists DIABETES HBA1C Q 6 MONTHS 01/01/20242023, 07/03/2023, 07/09/2022, Additional history exists COVID-19 Vaccine (2023- 5 season) 2024 02/15/2024, 04/06/2021, 07/29/2020, Additional history exists DIABETES: A1C (Auto Order) 07/03/202407/03, 07/03/2023, 07/09/2022, Additional history exists LDL CHOLESTEROL ANNUAL 07/03/2024 , 07/02/2022, 08/01/2021, Additional history exists DIABETES ANNUAL RETINAL EXAM 12/04/2024, 11/20/2023, 11/10/2023 (Previously completed) DIABETES ANNUAL FOOT EXAM 01/20/20252023, 01/01/2022, 12/05/2020 Traditional Medicare (ACO) A nnual Wellness Visit 01/21/2025 01/21/2024, 08/08/2021, 08/01/2020, Additional history exists COLORECTAL SCREENING 08/08/2025 08/08/2020, 08/08/2020, 03/15/2015, Additional history exists Colorectal Cancer Screening 08/08/2025 ZOSTER VACCINE Completed 05/08/2018, 10/24/2017 OSTEOPOROSIS SCREENING Completed 11/04/2019, 2019 PNEUMOCOCCAL VACCINE 65+ YEARS Completed 0 08/08/2021, 04/13/2018, 03/19/2017, Additional history exists INFLUENZA VACCINE Completed 01/21/2024, , 01/01/2022, Additional history exists Procedures Procedure Name Priority Date/Time Associated Diagnosis Comments LIPID PANEL Routine 07/03/2023 9:11 AM MICROSOFT ACCESS DEVELOPER Other hyperlipidemia HEMOGLOBIN A1C Routine 07/03/2023 9:11 AM MICROSOFT ACCESS DEVELOPER Type 2 diabetes mellitus without complication, unspecified whether vermin exterminator insulin use MAMMO SCREEN BILAT W OR WO CAD Routine 11/18/2022 Visit for screening mammogram MICROALBUMIN/CREATI NINE RATIO, RANDOM UR Routine 07/02/2022 8:21 AM MICROSOFT ACCESS DEVELOPER COLONOSCOPY REPORT 08/08/2020 12 :38 PM CDT XR DEXA BONE DENSITY 2 SITES Routine 11/04/2019 from Last 3 Months or Most Recently Relevant to Health Maintenance Results * (ABNORMAL) HEMOGLOBIN A1C (07/03/2023 9:11 AM MICROSOFT ACCESS DEVELOPER) HEMOGLOBIN A1C 5.7(H) <5.7 % of total Hgb [facility] Comment: For someone without known diabetes, [...] children. ESTIMATED AVERAGE GLUCOSE (MG/DL) 117 mg/dL Lana Bueno ESTIMATED AVERAGE GLUCOSE (MMOL/L) 6.5 mmol/L Lana Bueno Comment: ?? This test was performed on the [employer] c8000 platform. Please be advised that [employer] will move hemoglobin A1c testing to the Eyad platform soon. In general, direct comparison of the results from different platforms is not recommended. FASTING:YES FASTING: YES Test Performed at: [facility] [address] [place] ??[phone] Marty Duckworth Blood 07/03/2023 9:11 AM MICROSOFT ACCESS DEVELOPER 07/03/2023 9:12 AM MICROSOFT ACCESS DEVELOPER Eldon Koehler MD CHEMISTRY ORDERABLES [facility] [phone] [place] [address] [place] [address] * (ABNORMAL) LIPID PANEL (07/03/2023 9:11 AM MICROSOFT ACCESS DEVELOPER) CHOLESTEROL 212(H) <200 mg/dL [facility] HDL 48(L) > OR = 50 mg/dL [facility] TRIGLYCERIDE 160(H) <150 mg/dL [facility] LDL CALCULATED 134(H) mg/dL (calc) [facility] Comment: Reference range: <100 Desirable range <100 mg/dL for primary prevention; ?? <70 mg/dL for patients with CHD or diabetic patients with > or = 2 CHD risk factors. LDL-C is now calculated using the Christopher-Parish calculation, which is a validated novel method providing better accuracy than the Friedewald equation in the estimation of LDL-C. Christopher SS et al. ERLIN. 2013;310(19): 3089-6001 (http://education.Bookitit.AdNectar/faq/LZK205) CHOL/HDL RATIO 4.4 <5.0 (calc) [facility] TOTAL NON-HDL CHOL(LDL+VLDL) 164(H) <130 mg/dL (calc) [facility] Comment: For patients with diabetes plus 1 major ASCVD risk factor, treating to a non-HDL-C goal of <100 mg/dL (LDL-C of <70 mg/dL) is considered a therapeutic option. Test Performed at: [facility] [id number] ??[phone] Marty Duckworth MD Blood 07/03/2023 9:11 AM MICROSOFT ACCESS DEVELOPER 07/03/2023 9:12 AM MICROSOFT ACCESS DEVELOPER Eldon Koehler MD CHEMISTRY ORDERABLES [facility] [phone] [facility] [[email or web address]] [facility] [place] [address] [facility] [place] [address] * MAMMO SCREEN BILAT W OR WO CAD (11/18/2022) Anatomical Region Laterality Modality Breast Bilateral Other Eldon Koehler MD MAMMO ORDERABLES * MICROALBUMIN/CREATININE RATIO, RANDOM UR (07/02/2022 8:21 AM MICROSOFT ACCESS DEVELOPER) Creatinine, Urine 207 20 - 275 mg/dL [...] category. FASTING:YES FASTING: YES Test Performed at: [facility] [id number] [place] [address] ??[phone] Marty Duckworth MD 07/02/2022 8:21 AM MICROSOFT ACCESS DEVELOPER 07/02/2022 8:21 AM MICROSOFT ACCESS DEVELOPER Eldon Koehler MD URINE ORDERABLES Performing Organization Address City/[facility]/ZIP Co de Phone Number [facility] [phone] [facility] [address] [facility] [place] [address] * COLONOSCOPY REPORT (08/08/2020 12:38 PM CDT) Narrative Procedure Note Osei Sutton MD - 08/08/2020 12:38 PM CDT [facility] Endoscopy Patient Name: Winifred Rodriguez Procedure Date: 08/08/2020 Date of : 1950 Admit Type: Outpatient Attending MD: Osei Sutton MD Procedure: Colonoscopy Indications: Colon cancer screening in patient at increased risk: Colorectal cancer in mother, Surveillance: Personal history of adenomatous polyps on last colonoscopy 5 years ago Providers: Osei Sutton MD Referring MD: Eldon Koehler MD Medicines: General Anesthesia Complications: No immediate complications. Estimated blood loss: None. Procedure: Informed consent was obtained for the procedure, including moderate sedation after risks were discussed. Based on the pre-procedure assessment, including review of the patient's medical history, medications, allergies, and review of systems, the patient was deemed to be an appropriate candidate for sedation. A timeout was performed. Continuous ECG monitoring, pulse oximetry, blood pressure monitoring, and direct observation were performed. The Colonoscope was introduced through the anus and advanced to the terminal ileum. The colonoscopy was performed without difficulty. The patient tolerated the procedure well. The quality of the bowel preparation was good. Estimated Blood Loss: Estimated blood loss: none. Findings: Multiple small-mouthed diverticula were found in the sigmoid colon and descending colon. Internal hemorrhoids were found during retroflexion. The hemorrhoids were small. The exam was otherwise without abnormality. Impression: - Diverticulosis in the sigmoid colon and in the descending colon. - Internal hemorrhoids. - The examination was otherwise normal. - No specimens collected. Recommendation: - Repeat colonoscopy in 5 years for surveillance. Osei Sutton MD 08/08/2020 12:37:58 PM This report has been signed electronically. Number of Addenda: [address]; [place] [address] Osei Sutton MD GI PROCEDURE ORDERAB LES * XR DEXA BONE DENSITY 2 SITES (11/04/2019) Anatomical Region Laterality Modality Other Abstract Provider DIAGNOSTIC IMAGING O RDERABLES from Last 3 Months or Most Recently Relevant to Health Maintenance Advance Directives For more information, please contact: [phone] * Full Code (Latest Code Status on File) Date Activated Date Inactivated Comments 08/08/2020 11:40 AM 08/08/2020 3:10 PM * Full Code Date Activated Date Inactivated Comments 01/21/2017 12:09 PM 01/22/2017 6:40 PM * Full Code Date Activated Date Inactivated Comments 01/21/2017 8:55 AM 01/21/2017 12:09 PM * Full Code Date Activated Date Inactivated Comments 01/21/2017 6:58 AM 01/21/2017 8:55 AM * Full Code Date Activated Date Inactivated Comments 03/15/2015 10:22 AM 03/15/2015 4:14 PM Care Teams Clinical Radiologist Relationship Specialty Start Date End Date Eldon Koehler MD PCP - General 10/06/07
--- OUTSIDE RECORDS SUMMARY | 2024-05-22 16:58 | XMS_ITS | Encounter Summary ---
Author Organization [facility] Address [address] [place] [address] Care Team Providers Care Facilities Engineer Name Role Phone Eldon Koehler MD Primary Care Provider Reason for Visit * Reason Comments Consult Recent falls and mem ory loss * Eval and Treat (Routine) - Closed Specialty Diagnoses / Procedures Referred By Carmen villalobos Referred To Contact Neurology Diagnoses Leg weakness, bilateral Eldon Koehler MD [address] [place] [address] [place] [address] [facility] Neurology [facility] [id number] [place] [address] Referral ID Status Reason Start Date Expiration Date Visits Re quested Visits Authorized [id number] Closed 08/08/2021 08/08/2022 1 1 Encounter Details Date Type Department Care Team (Late st Contact Info) Description 01/11/2022 2:00 PM CDT Office Visit [facility] - [facility] [place] [id number] [facility] [address] [place] [address] Severiano Trejo MD [address] [facility] [address] [place] [address] Mild cognitive impairment (Primary Dx); History of falling; Fibromyalgia; MURIEL on CPAP; RLS (restless legs syndrome) Social History Tobacco Use Types Packs/Day Years [...] How often do you attend chur or buddhist services? More than 4 times per year 04/30/2019 Do you belong to any clubs o r organizations such as rastafari groups, unions, fraternal or athletic groups, or [...] suspected to have Coronavirus/COVID-19? No / Unsure 01/11/2022 1:47 PM CDT documented as of this encounter Last Filed Vital Signs Vital Sign Reading Time Taken Comments Blood Pressure 120/80 01/11/2022 1:52 PM CDT Pulse 79 01/11/2022 1:52 PM CDT Temperature - - Respiratory Rate 18 01/11/2022 1:52 PM CDT Oxygen Saturation 98% 01/11/2022 1:52 PM CDT Inhaled Oxygen Concentration - - Weight 117 kg (258 lb) 01/11/2022 1:52 PM CDT Height 167.6 cm (5' 6 ) 01/11/2022 1:52 PM CDT Body Mass Index 41.64 01/11/2022 1:52 PM CDT documented in this encounter Progress Notes * Severiano Trejo MD - 01/11/2022 2:25 PM CDT Images from the original note were not included. NEUROLOGY NOTE - INITIAL OFFICE VISIT travel counselor: Eldon Koehler MD CC: Chief Complaint Patient presents with Consult Recent falls and memory loss HISTORY OF PRESENT ILLNESS: Winifred Rodriguez is a 71 y.o. y.o. right handed female, who was referred to my office for consultation regarding Chief Complaint Patient presents with Consult Recent falls and memory loss She reports history of fibromyalgia. She was given steroid by Dr. Koehler. She will walk and will suddenly fall at times. She forgets everything she reports. She has a chaotic household. She adopted a daughter when she was 7 and now she is grown up with 3 children that live with them. 2 of the children have autism. Dr. Koehler has worried it is related to the stressors. She has to bead picker 4 year old and she forgot to go get her and pick her up. She sometimes might notrealize it is a Friday with an early dismissal and will be late. She can frequent dental appointments. She can have trouble with driving not knowing where she is at. She only drives where she is comfortable. Never gotten lost. She has navigation that helps her get home. She has trouble remembering theword navigation. She is not sleeping much at night. She can do stuff at night when it is quiet. She has really bad restless leg syndrome. Ropinirole helps with that. Ropinirole 2.5mg at bedtime. She has been on this for 10 years. Lyrica 50mg at bedtime. She does not feel rested in morning when she gets up. MURIEL on CPAP machine at night. Mood feels fine. She can have anxiety with the children. Buspirone is a new medication. She has not tried it yet. She is on wellbutrin 150mg daily. Duloxetine 60mg daily. B12 level was low. B12 will raise it up. She had bariatric surgery and lost 90lbs, but has gained a lot of it back. She has pain in the legs and they give out on her. She has had always some trouble with balance. No numbness in feet. She walks dogs 4 times a day for 20 minutes each. Neurology timeline: Previous history of present illness, review of systems, medications, labs, studies, notes, orders and consults have been reviewed today. PAST MEDICAL HISTORY: Past Medical History: Diagnosis Date Arthropathy, unspecified, site unspecified Asthma allergy induced Cataract Chronic fatigue syndrome Fibromyalgia GERD (gastroesophageal reflux disease) Hypothyroidism Injury of back Obstructive sleep apnea uses cpap Obstructive sleep apnea (adult) (pediatric) cpap at night Post-operative nausea and vomiting Psychiatric disorder depression Right rotator cuff tear Unspecified disorder of lipoid metabolism Unspecified essential hypertension PAST SURGICAL HISTORY: Past Surgical History: Procedure Laterality Date HX BACK SURGERY 1990, 2010 Spinal fusion L5-S1, Spinal fusion L4-L5 HX CATARACT REMOVAL Bilateral 08/2017 HX CHOLECYSTECTOMY 1997 HX COLONOSCOPY HX DIAGNOSTIC LAPAROSCOPY HX KNEE REPLACEMENT Bilateral 2014, 2015 HX ROTATOR CUFF REPAIR Right 06/12/2016 HX SKIN BIOPSY PA COLONOSCOPY FLX DX W/COLLJ SPEC WHEN PFRMD N/A 03/15/2015 COLONOSCOPY performed by Osei Sutton MD at [facility] PA COLONOSCOPY FLX DX W/COLLJ SPEC WHEN PFRMD N/A 08/08/2020 COLONOSCOPY performed by Osei Sutton MD at [facility] PA ESOPHAGOGASTRODUODENOSCOPY TRANSORAL DIAGNOSTIC N/A 01/21/2017 ESOPHAGOGASTRODUODENOSCOPY performed by Elizabeth Mcbride MD at [facility] OR PA LAP, ORLY RESTRICT PROC, LONGITUDINAL GASTRECTOMY N/A 01/21/2017 GASTRECTOMY LONGITUDINAL LAPAROSCOPIC performed by Elizabeth Mcbride MD at [facility] OR REVIEW OF SYSTEMS: A 12 system review consisted of constitutional, HENT, eyes, cardiovascular, respiratory, gastrointestinal, genitourinary, skin, hematological, musculoskeletal, neurological, and psychiatric. REVIEW OF SYSTEMS: General: [x] Fatigue [] Weight loss [x] Weight gain [] Fever [] Fainting/loss of consciousness [] History of head trauma HENT: [x] Neck pain [x] Neck stiffness [] Hearing loss [] Ringing in ears [] Sinus pressure [] Drooling [] Trouble swallowing [x] Change in sense of smell [] Change in sense of taste [] [place] pain/jaw pain Eyes: [] Eye pain [] Sensitivity to bright light [] Visual disturbances [] Blurred vision [] Double vision [] Dry eyes [] Loss of vision Cardiovascular: [] Chest pain [] Leg swelling [] Palpitations Respiratory: [] Cough [] Shortness of breath [] Hoarse voice [] Temporary cessation of breathing (apnea) Gastrointestinal: [] Constipation [] Diarrhea [] Nausea [] Vomiting Genitourinary: [] Frequent urinary tract infections [] Bladder does not empty [] Frequent urination [] Urinary urgency Skin: [] Color change/rash Hematology: [] Easy bruising Musculoskeletal: [x] Joint pain [x] Back pain [x] Muscle pain [x] Muscle cramps [x] Muscle weakness Neurological: [] Vertigo/spinning sensation [] Equilibrium problems [] Lightheadedness [] Numbness [] Tingling [] Seizures [] Difficulty speaking [] Tremors [] Involuntary movements [x] Falling [x] Loss of memory/forgetfulness [] Headaches Psychiatric: [x] Depression [] Anxiety [] Suicidal ideations [] Mood change [] Hallucinations [] Change in concentration [] Change in behavior [] Agitation [] Sleep disturbance ALLERGIES: Allergies Allergen Reactions Nickel Hives Clindamycin Rash and Itching Codeine Nausea and Vomiting Nsaids (Non-Steroidal Anti-Inflammatory Drug) Other (See Comments) S/P SLEEVE GASTRECTOMY MEDICATIONS: Current Outpatient Medications on File Prior to Visit Medication Sig Dispense Refill predniSONE (DELTASONE) 10 mg tablet 4 x 2 days, 3 x 2 days, 2 x 2 days, 1 x 2 days 20 Tablet 0 tirzepatide (Mounjaro) 2.5 mg/0.5 mL Pen Injector Lot: [id number] ex: 02/12/23 qty: 2 BOXES 0.5 mL 0 metoprolol succinate (TOPROL XL) 25 mg Extended Release 24 hour tablet Take 1 Tablet (25 mg) by mouth daily. 90 Tablet 3 buPROPion HCL (WELLBUTRIN SR) 150 mg Sustained Release 12 hour tablet Take 1 Tablet (150 mg) by mouth daily. 90 Tablet 3 pregabalin (LYRICA) 50 mg Capsule Take 1 Capsule (50 mg) by mouth every 12 hours. 180 Capsule 3 DULoxetine (Cymbalta) 60 mg Capsule, Delayed Release(E.C.) Take 1 Capsule (60 mg) by mouth daily. 90 Capsule 3 atorvastatin (LIPITOR) 20 mg tablet TAKE 1 TABLET BY MOUTH LATE IN THE DAY 90 Tablet 3 omeprazole (PriLOSEC) 20 mg Capsule, Delayed Release(E.C.) One daily 90 Capsule 3 levothyroxine 150 mcg tablet TAKE 1 TABLET BY MOUTH DAILY 90 Tablet 3 celecoxib (CeleBREX) 200 mg capsule TAKE 1 CAPSULE BY MOUTH TWO TIMES DAILY 180 Capsule 3 rOPINIRole (REQUIP) 0.5 mg tablet Take 1 Tablet (0.5 mg) by mouth late in the day. 90 Tablet 3 rOPINIRole (REQUIP) 2 mg Tablet Take 1 Tablet (2 mg) by mouth daily at bedtime. 90 Tablet 3 OTHER mvi gummies for women over 50 Calcium with D3 gummies B12 gummies 1500mcg No current facility-administered medications on file prior to visit. All medications were reviewed. PFSH: Reviewed and documented in appropriate sections of [facility] GENERAL EXAMINATION: Vitals: 01/11/22 1352 BP: 120/80 Pulse: 79 Resp: 18 SpO2: 98% BP Location: Left arm (01/11/22 1352) Patient Position (BP): Sitting (01/11/22 1352) BP Location: Left arm (01/11/22 1352) Patient Position (BP): Sitting (01/11/22 1352) Physical Exam Vitals reviewed. Constitutional: Appearance: Normal appearance. HENT: Head: Normocephalic. Mouth/Throat: Mouth: Mucous membranes are moist. Eyes: Extraocular Movements: Extraocular movements intact. Cardiovascular: Rate and Rhythm: Normal rate. Pulmonary: Effort: Pulmonary effort is normal. Abdominal: General: Abdomen is flat. Musculoskeletal: Cervical back: Normal range of motion. Neurological: Mental Status: She is alert and oriented to person, place, and time. Cranial Nerves: Cranial nerves 2-12 are intact. Motor: Motor strength is normal. Coordination: Bhkpjs-Ehxo-Eearpw Test, Heel to Sandoval Test and Romberg Test normal. Gait: Tandem walk abnormal. Psychiatric: Speech: Speech normal. NEUROLOGICAL EXAMINATION: Neurologic Exam Mental Status Oriented to person, place, and time. Speech: speech is normal Level of consciousness: alert Cranial Nerves Cranial nerves II through XII intact. Motor Exam Muscle bulk: normal Overall muscle tone: normal Right arm tone: normal Left arm tone: normal Right arm pronator drift: absent Left arm pronator drift: absent Right leg tone: normal Left leg tone: normal Strength Strength 5/5 throughout. Sensory Exam Light touch normal. Vibration normal. Gait, Coordination, and Reflexes Gait Gait: (slight step variability) Coordination Romberg: negative Finger to nose coordination: normal Heel to sandoval coordination: normal Tandem walking coordination: abnormal Tremor Resting tremor: absent Intention tremor: absent Action tremor: absent Reflexes Reflexes 2+ except as noted. MoCA 01/11/2022 PERTINENT LABORATORY FINDINGS AND STUDIES: (Primary & other provider notes reviewed - see above) I personally reviewed MRI and/or CT images. Results for orders placed in visit on 11/15/19 MRI SHOULDER WO CONTRAST BI Lab Results Component Value Date/Time [id number] 353 12/27/2021 08:04 AM Lab Results Component Value Date/Time ALT 17 12/27/2021 08:04 AM AST 20 12/27/2021 08:04 AM ALKPHOS 153 12/27/2021 08:04 AM Lab Results Component Value Date/Time HGBA1C 5.7 (H) 12/27/2021 08:04 AM ASSESSMENT AND MEDICAL DECISION MAKING: ICD-10-CM ICD-9-CM 1. Mild cognitive impairment G31.84 331.83 2. History of falling Z91.81 V15.88 3. Fibromyalgia M79.7 729.1 4. MURIEL on CPAP G47.33 327.23 Z99.89 V46.8 5. RLS (restless legs syndrome) G25.81 333.94 We discussed the diagnostic possibilities, and I recommended the following treatment plan: Assessment: Memory difficulties and falls have been slowly progressing. She has memory difficulties of forgetting to bead picker grand child or not feeling she knows where she is with driving at times. She has a lotof stress with her daughter and her 3 children living with her. Two of the children have autism andshe helps take care of them. She has to pick them up from things and does other things for them. She is not sleeping well at night and stays up late as that is her time to be quiet in the house. She has RLS controlled and MURIEL on CPAP that is doing alright, but still wakes up not feeling rested every day. Falls she reports of legs giving out on her. She has chronic pain in knees. She also has fibro myalgia. She worries about these symptoms being a sign of something more. Exam is normal besides some trouble tandem walking and MoCA slightly abnormal at 25/30. This is consistent with mild cognitive impairment. The memory difficulties could be related to her anxiety and sleep difficulties and would want to address them first before we could tell if there is a neurodegenerative process going on.If it is a neurodegenerative memory disorder it is very mild at this time and would not need any medication. The falls could be related to pain in the legs with them giving out. She does not have weakness, numbness or other clear cause for the falls on exam. Discussed strategies to help with anxiety and sleep. Plan: -Discussed working on improving sleep and anxiety as these can make someone appear to have more memory trouble then they have. -Discussed staying well organized can help with the stressors and memory. -Recommend a regular exercise regimen of starting off with at least 30 minutes of exercise 3 days aweek and build up to 5 days a week of 30 minutes of exercise. At least 10 of those 30 minutes should be moderately intense with increasing heart rate, rate of breathing, and sweating. Not one type ofexercise has been shown to be superior and would recommend a well rounded routine of activities youenjoy. Exercise has been shown to have disease modifying benefits in neurodegenerative conditions. -Encourage regular socialization with friends and family as this has been shown to be beneficial for memory and cognition. -Large calendar, frequent reminders, and placing objects in same location can all be helpful for memory difficulties. -Follow up in 6 months with communication in the interim via telephone or Applicasat message. TOBACCO COUNSELING She is not a tobacco user. Please refer to the AVS (after visit summary) provided to the patient under patient instructions for discharge instruction documentation. AVS printed, explained and given to patient or family. All ofpatient's or family's questions and answered. Verbalized understanding. On the day of the visit, I spent 60 (1 hr) minutes providing care to this patient including Preparing to see the patient, Obtaining and/or reviewing separately obtained history, Performing a medically appropriate examination and/or evaluation, Counseling and educating the patient/family/caregiver, and Documenting clinical information in the medical record. Thank you for allowing me to participate in care of this patient, and feel free to call my office should you have any further questions. Car Trjeo MD Neurology/Movement Disorder [facility] Neurology [address] [place] [address] documented in this encounter Miscellaneous Notes * Patient Instructions - Severiano Trejo MD - 01/11/2022 3:06 PM CDT -Discussed working on improving sleep and anxiety as these can make someone appear to have more memory trouble then they have. -Discussed staying well organized can help with the stressors and memory. -Recommend a regular exercise regimen of starting off with at least 30 minutes of exercise 3 days aweek and build up to 5 days a week of 30 minutes of exercise. At least 10 of those 30 minutes should be moderately intense with increasing heart rate, rate of breathing, and sweating. Not one type ofexercise has been shown to be superior and would recommend a well rounded routine of activities youenjoy. Exercise has been shown to have disease modifying benefits in neurodegenerative conditions. -Encourage regular socialization with friends and family as this has been shown to be beneficial for memory and cognition. -Large calendar, frequent reminders, and placing objects in same location can all be helpful for memory difficulties. documented in this encounter Plan of Treatment Upcoming Encounters Date Type Department Care Team (Late st Contact Info) Description 07/27/2024 9:40 AM CDT Office Visit [facility] Primary Care [address] [place] [address] Eldon Koehler MD [address] [place] [address] [address] [place] [address] Scheduled Referrals Name Type Priority Associated Diagnoses Orde r Schedule AMB REFERRAL TO NEUROLOGY Outpatient Referral Routine Leg weakness, bilateral Ordered: 08/08/2021 documented as of this encounter Visit Diagnoses Diagnosis Mild cognitive impairment- Primary Mild cognitive impairment, so stated History of falling Personal history of fall Fibromyalgia Mylagia and myositis, unspecified MURIEL on CPAP Obstructive sleep apnea (adult) (pediatric) RLS (restless legs syndrome) Restless legs syndrome (RLS) documented in this encounter Additional Health Concerns Assessment Noted Time PHQ-9 Depression Total Score: 2 08/09/19 22 10:17 AM CDT documented as of this encounter Care Teams Facilities Engineer Relationship Specialty Start Date End Date Eldon Koehler MD PCP - General 10/06/07 documented as of this encounter
--- OUTSIDE RECORDS SUMMARY | 2024-05-22 16:58 | XMS_ITS | Encounter Summary ---
Author Organization [facility] Address [address] [place] [address] Care Team Providers Care Tire Assembler Name Role Phone Eldon Koehler MD Primary Care Provider [phone] Encounter Details Date Type Department Care Team [...] How often do you attend chur or alevism services? More than 4 times per year [...] Description 07/27/2024 9:40 AM CDT Office Visit [facility] Primary Care [address] [place] [address] Eldon Koehler MD [address] [place] [address] [place] [address] documented as of this encounter Visit Diagnoses Not on filedocumented in this encounter Care Teams Tire Assembler Relationship Specialty Start Date End Date Eldon Koehler MD PCP - General 10/06/07 documented as of this encounter
--- OUTSIDE RECORDS SUMMARY | 2024-05-22 16:58 | XMS_ITS | Encounter Summary ---
Author Organization [facility] Address [address] [place] [address] Care Team Providers Care Industrial Safety And Health Technician Name Role Phone Eldon Koehler MD Primary Care Provider [phone] Encounter Details Date Type Department Care Team (Late st Contact Info) Description 11/11/2023 External Device Data STL ABSTRACTION Provider, Abstract [...] How often do you attend chur or jew services? More than 4 times [...] Description 07/27/2024 9:40 AM CDT Office Visit [facility] Primary Care [address] [place] [address] Eldon Koehler MD [address] [place] [address] [place] [address] documented as of this encounter Visit Diagnoses Not on filedocumented in this encounter Care Teams Industrial Safety And Health Technician Relationship Specialty Start Date End Date Eldon Koehler MD PCP - General 10/06/07 documented as of this encounter
--- OUTSIDE RECORDS SUMMARY | 2024-05-22 16:58 | XMS_ITS | Encounter Summary ---
Author Organization [facility] Address [address] [place] [address] Care Team Providers Care Fixed Income Director Name Role Phone Eldon Koehler MD Primary Care Provider [phone] Reason for Visit * Reason Comments Med Refill Encounter Details Date Type Department Care Team (Late st Contact Info) Description 12/22/2023 Refill [facility] Primary Care [facility] [address] [facility] [address] [place] [address] Stefanie Roca, JOSEPH [address] [place] [address] Other hyperlipidemia; Gastroesophageal reflux disease without esophagitis; Recurrent major depressive disorder, in partial remission [...] How often do you attend chur or restoration services? More than 4 times per year 04/30/2019 Do you belong to any clubs o r organizations such as latter day groups, unions, fraternal or athletic groups, or [...] [facility] Primary Care [address] [place] [address] Eldon Koehler MD [address] [place] [address] [place] [address] documented as of this encounter Visit Diagnoses Diagnosis Other hyperlipidemia Gastroesophageal reflux disease without esophagitis Esophageal reflux Recurrent major depressive disorder, in partial remission documented in this encounter Care Teams Fixed Income Director Relationship Specialty Start Date End Date Eldon Koehler MD PCP - General 10/06/07 documented as of this encounter
--- OUTSIDE RECORDS SUMMARY | 2024-05-22 16:58 | XMS_ITS | Encounter Summary ---
Author Organization [facility] Address [address] [place] [address] Care Team Providers Care Paper Sorter Name Role Phone Eldon Koehler MD Primary Care Provider [phone] Reason for Visit * Reason Onset Date Comments Chest Congestion 08/02/2022 Encounter Details Date Type Department Care Team (Late st Contact Info) Description 08/02/2022 Telephone [facility] Primary Care [address] [place] [address] Eldon Koehler MD [address] [place] [address] [address] [place] [address] Chest Congestion Social History Tobacco Use Types Packs/Day Years [...] often do you attend chur ch or christianity services? More than 4 times per year 04/30/2019 Do you belong to any clubs o r organizations such as gnosticism groups, unions, fraternal or athletic groups, or [...] Coronavirus/COVID-19? No / Unsure 07/09/2022 11:21 AM DIRECTOR OF EDUCATION documented as of this encounter Miscellaneous Notes * Telephone Encounter - Eldon Koehler MD - 08/02/2022 1:51 PM CDT Med sent make appt if not improved * Telephone Encounter - Frances Araujo - 08/02/2022 12:41 PM CDT Upper Respiratory Symptoms (Congestion / Cough) Any of the following symptoms: Difficulty breathing? No Shortness of breath? No Wheezing? Yes The caller has been advised they will be transferred to a clinical coworker as they have presented information that may require further consultation or possible emergency action. Call back number: [phone] (home) Fever? no fever Date of onset of symptoms? 07/29/2022 Status of symptoms? worsened Nasal drainage? Yes Color? white Coughing? Yes Do you produce phlegm / sputum? Yes Color? clear If fever, what was the value? No Sore throat? No Have you taken a COVID test? No Remedies or OTC medications tried? nothing Patient doesn't want to come into the office. She needs her inhaler and would like a Zpac. She states its Bronchitis. Please advise. Caller also advised to call back: in 48 hours if they have not received contact at any time if the condition worsens or they develop new symptoms they are concerned about. Agent notified patient/caller of the call back advice. Medication Request albuterol sulfate 90 mcg/Actuation inhaler Refill Preferred Pharmacy: [id number] [place] [id number] [facility] [address] Date of last encounter: 07/09/2022 Next Appointment: Visit date not found Patient Contact Information: Home Phone Work Phone documented in this encounter Plan of Treatment Upcoming Encounters Date Type Department Care Team (Late st Contact Info) Description 07/27/2024 9:40 AM CDT Office Visit [facility] Primary Care [address] [address] Eldon Koehler MD [address] [place] [address] documented as of this encounter Visit Diagnoses Not on filedocumented in this encounter Care Teams Paper Sorter Relationship Specialty Start Date End Date Eldon Koehler MD PCP - General 10/06/07 documented as of this encounter
--- OUTSIDE RECORDS SUMMARY | 2024-05-22 16:58 | XMS_ITS | Encounter Summary ---
Author Organization [facility] Address [address] [place]: Epic Prelude [place]T [place] [address] Care Team Providers Care Brazing Machine Operator Helper Name Role Phone Eldon Koehler MD Primary Care Provider [phone] Encounter Details Date Type Department Care Team (Latest Contact Info) Description 07/09/2022 Travel Social History Tobacco Use Types Packs/Day [...] week 04/30/2019 How often do you attend [facility] or yazidi services? More than 4 times per year 04/30/2019 Do you belong to any clubs o r organizations such as mormonism groups, unions, fraternal or athletic groups, or [...] Coronavirus/COVID-19? No / Unsure 07/09/2022 11:21 AM CUSTOMER SERVICE ASSISTANT documented as of this encounter Plan of Treatment Upcoming Encounters Date Type Department Care Team (Late st Contact Info) Description 07/27/2024 9:40 AM CDT Office Visit [facility] Primary Care [address] [place] [id number] Eldon Koehler MD [address] [place] [address] [address] [place] [address] documented as of this encounter Visit Diagnoses Not on filedocumented in this encounter Care Teams Brazing Machine Operator Helper Relationship Specialty Start Date End Date Eldon Koehler MD PCP - General 10/06/07 documented as of this encounter
--- OUTSIDE RECORDS SUMMARY | 2024-05-22 16:58 | XMS_ITS | Encounter Summary ---
Author Organization [facility] Address [address] [place] [address] Care Team Providers Care Tv Technician Name Role Phone Eldon Koehler MD Primary Care Provider [phone] Encounter Details Date Type Department Care Team (Late st Contact Info) Description 07/08/2023 External Device Data STL ABSTRACTION Provider, Abstract [...] any clubs o r organizations such as yarsani groups, unions, fraternal or athletic groups, or [...] Office Visit [facility] Primary Care [address] [place] [address] Eldon Koehler MD [address] [place] [address] [place] [address] documented as of this encounter Visit Diagnoses Not on filedocumented in this encounter Care Teams Tv Technician Relationship Specialty Start Date End Date Eldon Koehler MD PCP - General 10/06/07 documented as of this encounter
--- OUTSIDE RECORDS SUMMARY | 2024-05-22 16:58 | XMS_ITS | Encounter Summary ---
Author Organization [facility] Address [address] [place] [address] Care Team Providers Care Radioactivity Technician Name Role Phone Eldon Koehler MD Primary Care Provider [phone] Reason for Visit * Reason Onset Date Comments SAMPLES 07/08/2023 Encounter Details Date Type Department Care Team (Late st Contact Info) Description 07/08/2023 Refill [facility] Primary Care [address] [place] [address] Eldon oKehler MD [address] [place] [address] [address] [place] [address] Social History Tobacco Use Types [...] Description 07/27/2024 9:40 AM CDT Office Visit [facility] Primary Care [address] [place] [address] Eldon Koehler MD [address] [place] [address] documented as of this encounter Visit Diagnoses Not on filedocumented in this encounter Care Teams Radioactivity Technician Relationship Specialty Start Date End Date Eldon Koehler MD PCP - General 10/06/07 documented as of this encounter
--- OUTSIDE RECORDS SUMMARY | 2024-05-22 16:58 | XMS_ITS | Encounter Summary ---
Author Organization [facility] Address [address] [place] [address] Care Team Providers Care Hris Specialist Name Role Phone Eldon Koehler MD Primary Care Provider [phone] Reason for Visit * Reason Onset Date Comments Results 07/04/2023 Encounter Details Date Type Department Care Team (Late st Contact Info) Description 07/04/2023 Telephone [facility] Primary Care [address] [place] [address] Eldon Koehler MD [address] [place] [address] [address] [place] [address] Results Social History Tobacco Use Types Packs/Day Years [...] often do you attend chur ch or temple services? More than 4 times per year 04/30/2019 Do you belong to any clubs o r organizations such as druze groups, unions, fraternal or athletic groups, or [...] Telephone Encounter - Eldon Koehler MD - 07/04/2023 3:12 PM CST Reviewed with pt inc crp Try medrol see if helps--? PMR? Back on thyroid Trying to get provigil H FOOD MANAGER documented in this encounter Plan of Treatment Upcoming Encounters Date Type Department Care Team (Late st Contact Info) Description 07/27/2024 9:40 AM CDT Office Visit [facility] Primary Care [address] [place] [address] Eldon Koehler MD [address] [place] [address] [place] [address] [place] [id number] documented as of this encounter Visit Diagnoses Diagnosis Other sleep apnea documented in this encounter Care Teams Hris Specialist Relationship Specialty Start Date End Date Eldon Koehler MD PCP - General 10/06/07 documented as of this encounter
--- OUTSIDE RECORDS SUMMARY | 2024-05-22 16:58 | XMS_ITS | Encounter Summary ---
Author Organization [facility] Address [address] [place] [address] Care Team Providers Care Hired Worker Name Role Phone Eldon Koehler MD Primary Care Provider [phone] Encounter Details Date Type Department Care Team (Late st Contact Info) Description 07/04/2023 External Device Data STL ABSTRACTION Provider, Abstract [...] How often do you attend chur or nondenominational services? More than 4 times per year [...] [facility] Primary Care [address] [place] [address] Eldon Koehler MD [address] [place] [address] [place] [address] documented as of this encounter Visit Diagnoses Not on filedocumented in this encounter Care Teams Hired Worker Relationship Specialty Start Date End Date Eldon Koehler MD PCP - General 10/06/07 documented as of this encounter
--- OUTSIDE RECORDS SUMMARY | 2024-05-22 16:58 | XMS_ITS | Encounter Summary ---
Author Organization [facility] Address [address] [place] [address] Care Team Providers Care Television Anchor Name Role Phone Eldon Koehler MD Primary Care Provider [phone] Reason for Referral * Eval and Treat (Routine) - Open Specialty Diagnoses / Procedures Referred By Carmen t Referred To Contact Neurology Diagnoses Memory loss Procedures SC OFFICE/OUTPATIENT ESTABLISHED MOD MDM 30 MIN SC OFFICE/OUTPATIENT NEW MODERATE MDM 45 MINUTES Eldon Koehler MD [address] [place] [phone] Referral ID Status Reason Start Date Expiration Date Visits Re quested Visits Authorized [id number] Open 01/21/2024 01/20/2025 1 1 * Radiology Services (Routine) - Open Specialty Diagnoses / Procedures Referred By Contac t Referred To Contact Radiology Diagnoses Osteopenia of multiple sites Procedures XR DEXA BONE DENSITY AXIAL 1 OR MORE SITES Eldon Koehler MD [address] [place] [phone] Referral ID Status Reason Start Date Expiration Date Visits Re quested Visits Authorized [id number] Open 01/21/2024 02/20/2025 1 1 * Radiology Services (Routine) - Authorized Specialty Diagnoses / Procedures Referred By Carmen villalobos Referred To Contact Radiology Diagnoses Screening mammogram, encounter for Procedures MAMMO 3D ARMANDO SCREEN BILAT W OR WO CAD CHG SCREENING MAMMOGRAPHY BI 2-VIEW BREAST INC CAD CHG SCREENING DIGITAL BREAST TOMOSYNTHESIS BI Eldon Koehler MD [address] [place] [phone] Referral ID Status Reason Start Date Expiration Date V isits Requested Visits Authorized [id number] Authorized 01/21/2024 02/20/2025 1 1 Reason for Visit * Reason Comments Yearly Medicare Exam Encounter Details Date Type Department Care Team (Late st Contact Info) Description 01/21/2024 9:40 AM CDT Office Visit [facility] Primary Care [address] [address] Eldon Koehler MD [address] [place] [phone] Screening mammogram, encounter for (Primary Dx); Type 2 diabetes mellitus without complication, without long-term current use of insulin; Morbid obesity with body mass index of 40.0-49.9; Recurrent major depressive disorder, in partial remission; Other hyperlipidemia; Vitamin B12 deficiency (non anemic); Other specified hypothyroidism; Osteopenia of multiple sites; Memory loss; Other asthma Social History Tobacco Use Types Packs/Day Years [...] week 04/30/2019 How often do you attend up health system or congregational services? More than 4 times per year [...] Sign Reading Time Taken Comments Blood Pressure 118/84 01/21/2024 9:19 AM CDT Pulse 74 01/21/2024 9:19 AM CDT Temperature - - Respiratory Rate - - Oxygen Saturation 98% 01/21/2024 9:19 AM CDT Inhaled Oxygen Concentration - - Weight 113.9 kg (251 lb) 01/21/2024 9:19 AM CDT Height 170.2 cm (5' 7 ) 01/21/2024 9:19 AM CDT Body Mass Index 39.31 01/21/2024 9:19 AM CDT documented in this encounter Progress Notes * Eldon Koehler MD - 01/21/2024 9:30 AM CDT Hpi Back better Bp ok Wt issues Med reviewed Lab pend Hm reviewed Memory issues pt feels worse High stress In home Patient Active Problem List Diagnosis Code Hyperlipemia [...] diabetes mellitus without complication E11.9 Exam BP 118/84 Pulse 74 Ht 5' 7 (1.702 m) Wt 113.9 kg (251 lb) SpO2 98% BMI 39.31 kg/m?? General appearance: over wt nad Head: Normocephalic, without obvious abnormality, atraumatic Eyes: conjunctivae/corneas clear. PERRLA, EOM's intact. Lids appear normal. Ears: normal TM's (shiny without retraction) and external ear canals AU. No apparent lesions or masses. Hearing grossly normal. Nose: Nares normal. Septum midline. Mucosa normal. No drainage or sinus tenderness. Throat: Lips, mucosa, palate, oropharynx, and tongue normal. Teeth and gums normal. Oral mucosa unremarkable with non-inflamed posterior pharynx. Neck: supple, symmetrical, trachea midline, no lymphadenopathy, and thyroid: not enlarged, symmetric, no tenderness/mass/nodules. Lungs: breath sounds equal, clear to auscultation bilaterally, no retractions, no stridor, normal respiratory effort Heart: regular rate and rhythm Abdomen: soft, non-tender. Bowel sounds normal. Skin: Skin color, texture, turgor normal. No rashes or lesions noted on arms, chest, or abdomen. Lymphatics: No focal or generalized lymphadenopathy. Neck Ext no edema Diabetic foot exam: Visual: no ulceration and no callous formation Sensory:normal monofilament testing Pulses: normal bilaterally Mood stable ASSESSMENT: Encounter Diagnoses Name Primary? Screening mammogram, encounter for Yes Type 2 diabetes mellitus without complication, without long-term current use of insulin Morbid obesity with body mass index of 40.0-49.9 Recurrent major depressive disorder, in partial remission Other hyperlipidemia Vitamin B12 deficiency (non anemic) Other specified hypothyroidism Osteopenia of multiple sites Memory loss Other asthma Obesity Normal BMI Range: 18 & older: > or = 18.5 and < 25 Body mass index is 39.31 kg/m??. Abnormal high BMI: Patient counseled on lifestyle modifications including weight loss and daily exercise. Dm pt wants try Mounjaro sample given Depression cont med stable Memory issues refer neuro Thyroid check lab Asthma stable recent Has inh Flu vac Covid booster Health Maintenance Topic Date Due DTAP/TDAP/TD VACCINES (2 - Td or Tdap) 03/13/2020 DIABETES ANNUAL FOOT EXAM 01/01/2023 DIABETES MICROALBUMIN ANNUAL SCREEN 07/02/2023 BREAST CANCER SCREENING 11/19/2023 COVID-19 Vaccine (2022- season) 2024 DIABETES HBA1C Q 6 MONTHS 01/01/2024 LDL CHOLESTEROL ANNUAL 07/03/2024 DIABETES: A1C (Auto Order) 07/03/2024 DIABETES ANNUAL RETINAL EXAM 11/09/2024 Traditional Medicare (ACO) Annual Wellness Visit 01/21/2025 Colorectal Cancer Screening 08/08/2025 OSTEOPOROSIS SCREENING Completed PNEUMOCOCCAL VACCINE 65+ YEARS Completed ZOSTER VACCINE Completed INFLUENZA VACCINE Completed Cataract recent Mammo pend Bone dens PLAN: Orders Placed This Encounter MAMMO 3D ARMANDO SCREEN BILAT W OR WO CAD XR DEXA BONE DENSITY AXIAL 1 OR MORE SITES INFLUENZA VACCINE HIGH DOSE TRIVALENT SPLIT VIRUS, (65 YR UP), 0.5ML (PF), IM CBC WITH DIFFERENTIAL COMPREHENSIVE METABOLIC PANEL HEMOGLOBIN A1C LIPID PANEL TSH T4 FREE (Chemistry) VITAMIN B12 LEVEL (Chemistry) MICROALBUMIN/CREATININE RATIO, RANDOM UR (Favorites) Generic Referral to Neurology respiratory syncytial virus recombinant,adjuvanted vaccine (Arexvy, PF,) 120 mcg/0.5 mL Suspension for Reconstitution tirzepatide (Mounjaro) 2.5 mg/0.5 mL Pen Injector Winifred Piper is a 73 y.o. female here today for her Medicare Annual Wellness Visit. Also due for Chronic Conditions Coordination. MEDICARE WELLNESS VISIT HEALTH RISK ASSESSMENT Completed by and reviewed with patient/caregiver. See Annual Wellness Visit HRA Flowsheet In general, how would you rate your health?: Good (01/21/24899) Are you basically satisfied with your life? : Yes (01/21/24899) MEDICAL RECORD REVIEWED AND UPDATED, INCLUDING: Demographics Current providers and suppliers: Patient Care Team: Eldon Koehler MD as PCP - General Elizabeth Mcbride MD as Consulting Physician (Surgery) Past Medical and Surgical History Family History Social History Allergies CURRENT MEDICATIONS REVIEWED AND RECONCILED atorvastatin TAKE 1 TABLET BY MOUTH LATE IN THE DAY omeprazole take 1 capsule by mouth daily DULoxetine take 1 capsule by mouth daily metoprolol succinate take 1 tablet by mouth daily levothyroxine take 1 tablet by mouth daily buPROPion HCL take 1 tablet by mouth daily celecoxib TAKE 1 CAPSULE BY MOUTH TWICE DAILY ezetimibe take 1 tablet by mouth daily rOPINIRole Take 1 Tablet (3 mg) by mouth daily at bedtime. modafiniL Take 1 Tablet (100 mg) by mouth daily. pregabalin take 1 capsule by mouth every 12 hours LORazepam Take 1 Tablet (0.5 mg) by mouth see administration instructions. 1 tab before mri take another if still anxious HYDROcodone-acetaminophen Take 1 Tablet by mouth every 4 hours as needed for Pain, Moderate. Max Daily Amount: 6 Tablets busPIRone Take 1 Tablet (10 mg) by mouth 3 times daily. albuterol sulfate Take 2 Puffs by inhalation 4 times daily as needed for Shortness of Breath. OTHER mvi gummies for women over 50 Calcium with D3 gummies B12 gummies 1500mcg methylPREDNISolone As directed (Patient not taking: Reported on 07/15/2023) benzonatate Take 1 Capsule (200 mg) by mouth 3 times daily as needed for Cough. (Patient not taking: Reported on 07/15/2023) rOPINIRole Take 1 Tablet (2 mg) by mouth daily at bedtime. (Patient not taking: Reported on 01/21/2024) rOPINIRole Take 1 Tablet (0.5 mg) by mouth late in the day. (Patient not taking: Reported on 01/21/2024) In general, how often do you forget or decide not to take one or more of your medications?: Never (01/21/24899) EXAMINATION(MA may complete) BP 118/84 Pulse 74 Ht 5' 7 (1.702 m) Wt 113.9 kg (251 lb) SpO2 98% BMI 39.31 kg/m?? Visual Acuity: Hearing: Have you been told by others you turn up your TV volume too high or that you have problems hearing?: No (01/21/24899) FUNCTIONAL ABILITY, FRAILTY Have you fallen one or more times in the past year?: No (01/21/24899) (QM) Patient denies needing help with any ADL's. Do you currently use any medical equipment, such as a cane, walker, wheelchair, or oxygen tank?: Yes (01/21/24899) What medical referral coordinator do you use?: CPAP (01/21/24899) SAFETY AND PHYSICAL ACTIVITY Do you fasten your seat belt when you are in the car?: Yes (01/21/24899) Do you feel safe at home?: Yes (01/21/24899) How many days a week do you do at least 10 - 15 minutes of some type of exercise or physical activity?: 0 - 1 day - education automatically filed to AVS (01/21/24899) RISK ASSESSMENT (QM) Depression Screen Positive: PHQ-2 score >= 3 or PHQ-9 score >= 9 PHQ-2 Total: 0 (01/21/2024 9:00 AM) PHQ-9 Total: 0 (01/21/2024 9:00 AM) DEPRESSION PLAN OF CARE Her depression screen was negative. How often do you feel angry? : Never (01/21/24899) How often do you feel lonely?: Never (01/21/24899) Any changes or new problems with your mental or emotional health, such as stress or anxiety?: No (01/21/24899) TOBACCO COUNSELING (QM) reports that she has never smoked. She has never been exposed to tobacco smoke. She has never used smokeless tobacco. She is not a tobacco/nicotine user. Opioid Use Current Opioids:HYDROcodone-acetaminophen (NORCO) 5-325 mg tablet [[id number]] off med During the past 4 weeks, would you say you have had...: Moderate pain (01/21/24899) Current treatment plan is:partially effective Information regarding non-opioid treatment options provided. Cognitive Impairment Cognitive ability observed and assessed throughout the exam. Structured assessment: Mini-Mental Status Exam: TOTAL SCORE: 28 (01/21/24899) PREVENTIVE CARE GUIDELINES Written Screening Schedule for the next 5-10 years developed and provided to patient. Preventive Care Recommendations for AVERAGE Risk Adult Females > 65yo Measure USPSTF Recommendation Breast cancer screening (mammogram) Every 1 to 2 years for women >40 Osteoporosis Screening (bone density) Women >65 Colon Cancer Screening Colonoscopy every 10 yrs or Fecal Occult Blood testing yearly ages 45-75 Lung Cancer Screening Annual low-dose CT, adults 50 - 80* w/ >20 pack-year smoking hx who currently smoke or have quit w/in 15 yrs (*Medicare will not cover for >77 yo) Lipid Screening Identification of dyslipidemia and calculation of 10-year CVD event risk requires universal lipid screening in adults ages 40 - 75 Pre-diabetes/Diabetes Screening Adults 35-70 who are overweight or obese Hepatitis C Screening Adults 18-79 Immunizations Influenza: yearly Pneumococcal: PCV (+/- PPSV23 depending on PCV type) Tetanus: all adults every 10 yrs Zoster(Shingles):>50yo, series of 2 ADVANCE CARE PLANNING (optional) Do you have an Advance Directive (Living Will)?: Yes (01/21/24899) Primary Emergency Contact: MARIANNE PIPER, Relation: Spouse Secondary Emergency Contact: JOHNSON PIPER, Relation: Daughter Is the person(s) listed above who you would want to be your trusted decision maker? Yes RISK FACTORS AND CONDITIONS FOR WHICH INTERVENTIONS ARE RECOMMENDED AND/OR UNDERWAY Are you currently on any kind of special diet? : No (01/21/24899) Do you have problems with your teeth or dentures?: No (01/21/24899) During the past 4 weeks, would you say you have had...: Moderate pain (01/21/24899) Do you have any concerns about your sexual health?: No (01/21/24899) Physical inactivity/deconditioning EDUCATION/COUNSELING/REFERRAL(S) Exercise program , Nutrition counseling , and Weight management Orders Placed This Encounter MAMMO 3D ARMANDO SCREEN BILAT W OR WO CAD XR DEXA BONE DENSITY AXIAL 1 OR MORE SITES INFLUENZA VACCINE HIGH DOSE TRIVALENT SPLIT VIRUS, (65 YR UP), 0.5ML (PF), IM CBC WITH DIFFERENTIAL COMPREHENSIVE METABOLIC PANEL HEMOGLOBIN A1C LIPID PANEL TSH T4 FREE (Chemistry) VITAMIN B12 LEVEL (Chemistry) MICROALBUMIN/CREATININE RATIO, RANDOM UR (Favorites) Generic Referral to Neurology respiratory syncytial virus recombinant,adjuvanted vaccine (Arexvy, PF,) 120 mcg/0.5 mL Suspension for Reconstitution tirzepatide (Mounjaro) 2.5 mg/0.5 mL Pen Injector Ms. Piper voiced understanding and agreement with the treatment plan. All questions were answered. Rwlqw-Orlgb-Gdnwyyg provided to patient. ACUTE AND/OR CHRONIC ISSUES REQUIRING EVALUATION AND MANAGEMENT OUTSIDE THE WELLNESS VISIT (Provider only) As above documented in this encounter Plan of Treatment Upcoming Encounters Date Type Department Care Team (Late st Contact Info) Description 07/27/2024 9:40 AM CDT Office Visit [facility] Care [facility] [address] [place] [address] [address] [place] [address] Eldon Koehler MD [address] [facility] [address] [place] [address] Scheduled Orders Name Type Priority Associated Diagnoses Orde r Schedule MAMMO 3D ARMANDO SCREEN BILAT W OR WO CAD Imaging Routine Screening mammogram, encounter for 1 Occurrences starting 01/21/2024 until 07/20/2025 CBC WITH DIFFERENTIAL Lab Routine Vitamin B12 deficiency (non anemic) Expected: 01/21/2024 (Approximate), Expires: 01/20/2025 COMPREHENSIVE METABOLIC PANEL Lab Routine Other hyperlipidemia Expected: 01/21/2024 (Approximate), Expires: 01/20/2025 HEMOGLOBIN A1C Lab Routine Type 2 diabetes mellitus without complication, without long-term current use of insulin Expected: 01/21/2024 (Approximate), Expires: 01/20/2025 LIPID PANEL Lab Routine Other hyperlipidemia Expected: 01/21/2024 (Approximate), Expires: 01/20/2025 TSH Lab Routine Other hyperlipidemia Expected: 01/21/2024 (Approximate), Expires: 01/20/2025 T4 FREE Lab Routine Other specified hypothyroidism Expected: 01/21/2024 (Approximate), Expires: 01/20/2025 VITAMIN B12 LEVEL Lab Routine Vitamin B12 deficiency (non anemic) Expected: 01/21/2024 (Approximate), Expires: 01/20/2025 XR DEXA BONE DENSITY AXIAL 1 OR MORE SITES Imaging Routine Osteopenia of multiple sites Expected: 01/21/2024, Expires: 01/20/2025 MICROALBUMIN/CREATININE RATIO, RANDOM UR Lab Routine Type 2 diabetes mellitus without complication, without long-term current use of insulin Expected: 01/21/2024, Expires: 01/20/2025 Scheduled Referrals Name Type Priority Associated Diagnoses Orde r Schedule AMB REFERRAL TO NEUROLOGY Outpatient Referral Routine Memory loss Ordered: 01/21/2024 documented as of this encounter Visit Diagnoses Diagnosis Screening mammogram, encounter for- Primary Type 2 diabetes mellitus without complication, without long-term current use of insulin Morbid obesity with body mass index of 40.0-49.9 Recurrent major depressive disorder, in partial remission Other hyperlipidemia Vitamin B12 deficiency (non anemic) Other B-complex deficiencies Other specified hypothyroidism Osteopenia of multiple sites Memory loss Other asthma documented in this encounter Care Teams Television Anchor Relationship Specialty Start Date End Date Eldon Koehler MD PCP - General 10/06/07 documented as of this encounter
--- OUTSIDE RECORDS SUMMARY | 2024-05-22 16:58 | XMS_ITS | Encounter Summary ---
Author Organization [facility] Address [address] [place] [address] Care Team Providers Care It Technical Support Specialist Name Role Phone Eldon Koehler MD Primary Care Provider [phone] Encounter Details Date Type Department Care Team (Late st Contact Info) Description 06/06/2023 External Device Data STL ABSTRACTION Provider, Abstract [...] How often do you attend chur or mu-ism services? More than 4 times per year 04/30/2019 Do you belong to any clubs o r organizations such as taoist groups, unions, fraternal or athletic groups, or [...] [facility] Primary Care [id number] [place] [address] Eldon Koehler MD [address] [place] [address] [place] [address] documented as of this encounter Visit Diagnoses Not on filedocumented in this encounter Care Teams It Technical Support Specialist Relationship Specialty Start Date End Date Eldon Koehler MD PCP - General 10/06/07 documented as of this encounter
--- OUTSIDE RECORDS SUMMARY | 2024-05-22 16:58 | XMS_ITS | Encounter Summary ---
Author Organization [facility] Address [address] [place] [address] Care Team Providers Care Director Talent Management Name Role Phone Eldon Koehler MD Primary Care Provider [phone] Reason for Visit * Reason Comments Preop Exam Encounter Details Date Type Department Care Team (Latest Contact Info) Description 12/01/2023 10:20 AM CDT Office Visit [facility] Primary Care [address] [place] [address] Eldon Koehler MD [address] [place] [address] [address] [place] [address] Other hyperlipidemia (Primary Dx); Type 2 diabetes mellitus without complication, without long-term current use of insulin; Morbid obesity with body mass index of 40.0-49.9 Social History Tobacco Use Types Packs/Day Years [...] How often do you attend chur or judaism services? More than 4 times per year 04/30/2019 Do you belong to any clubs o r organizations such as buddhist groups, unions, fraternal or athletic groups, or [...] Reading Time Taken Comments Blood Pressure 130/84 12/01/2023 10:23 AM CDT Pulse 85 12/01/2023 10:23 AM CDT Temperature - - Respiratory Rate - - Oxygen Saturation 95% 12/01/2023 10:23 AM CDT Inhaled Oxygen Concentration - - Weight 115.7 kg (255 lb) 12/01/2023 10:23 AM CDT Height 167.6 cm (5' 6 ) 12/01/2023 10:23 AM CDT Body Mass Index 41.16 12/01/2023 10:23 AM CDT documented in this encounter Progress Notes * Eldon Koehler MD - 12/01/2023 1:19 PM CDT Hpi Bp stable No cardiac sx For eye surgery Med reviewed Last lab reviewed Patient Active Problem List Diagnosis [...] diabetes mellitus without complication E11.9 Exam BP 130/84 Pulse 85 Ht 5' 6 (1.676 m) Wt 115.7 kg (255 lb) SpO2 95% BMI 41.16 kg/m?? General appearance: over wt nad Head: Normocephalic, without obvious abnormality, atraumatic Lungs: breath sounds equal, clear to auscultation bilaterally, no retractions, no stridor, normal respiratory effort Heart: regular rate and rhythm Skin: Skin color, texture, turgor normal. Lymphatics: No focal or generalized lymphadenopathy. Neck Ext no edema Mood stable ASSESSMENT: Encounter Diagnoses Name Primary? Other hyperlipidemia Yes Type 2 diabetes mellitus without complication, without long-term current use of insulin Morbid obesity with body mass index of 40.0-49.9 EKG stable Repeat lab pend Obesity pt working on losing wt Dm recheck lab no sx current PLAN: Orders Placed This Encounter EKG 12-LEAD documented in this encounter Plan of Treatment Upcoming Encounters Date Type Department Care Team (Late st Contact Info) Description 07/27/2024 9:40 AM CDT Office Visit [facility] Primary Care [address] [phone] Eldon Koehler MD [address] [place] [address] [place] [phone] documented as of this encounter Procedures Procedure Name Priority Date/Time Associated Diagnosis Comments EKG 12-LEAD Routine 12/01/2023 1:22 PM CDT Other hyperlipidemia Type 2 diabetes mellitus without complication, without long-term current use of insulin documented in this encounter Results * EKG 12-LEAD (12/01/2023 1:22 PM CDT) Impressions [facility] - 12/01/2023 1:22 PM CDT Sr no ischemic changes Eldon Koehler MD ECG ORDERABLES [facility] CLIA# [id number] [address] [address] documented in this encounter Visit Diagnoses Diagnosis Other hyperlipidemia- Primary Type 2 diabetes mellitus without complication, without long-term current use of insulin Morbid obesity with body mass index of 40.0-49.9 documented in this encounter Care Teams Director Talent Management Relationship Specialty Start Date End Date Eldon Koehler MD PCP - General 10/06/07 documented as of this encounter
--- OUTSIDE RECORDS SUMMARY | 2024-05-22 16:58 | XMS_ITS | Encounter Summary ---
Author Organization [facility] Address [address] [place] [address] Care Team Providers Care Medical Detail Representative Name Role Phone Eldon Koehler MD Primary Care Provider [phone] Reason for Visit * Reason Comments Med Refill Encounter Details Date Type Department Care Team (Late st Contact Info) Description 02/06/2022 Refill [facility] Internal Medicine [address] [address] Eldon Koehler MD [address] [place] [address] Fibromyalgia Social History Tobacco Use Types [...] often do you attend chur ch or gnosticism services? More than 4 times per year 04/30/2019 Do you belong to any clubs o r organizations such as religious groups, unions, fraternal or athletic groups, or [...] PM CDT documented as of this encounter Plan of Treatment Upcoming Encounters Date Type Department Care Team (Late st Contact Info) Description 07/27/2024 9:40 AM CDT Office Visit [facility] Care [address] [place] [address] Eldon Koehler MD [address] [place] [address] [address] [place] [phone] documented as of this encounter Visit Diagnoses Diagnosis Fibromyalgia Mylagia and myositis, unspecified documented in this encounter Additional Health Concerns Assessment Noted Time PHQ-9 Depression Total Score: 2 08/09/19 22 10:17 AM CDT documented as of this encounter Care Teams Medical Detail Representative Relationship Specialty Start Date End Date Eldon Koehler MD PCP - General 10/06/07 documented as of this encounter
--- OUTSIDE RECORDS SUMMARY | 2024-05-22 16:58 | XMS_ITS | Encounter Summary ---
Author Organization [facility] Address [address] [place] [address] Care Team Providers Care Operations Administrative Assistant Name Role Phone Eldon Koehler MD Primary Care Provider [phone] Encounter Details Date Type Department Care Team [...] [facility] Care [address] [place] [address] Eldon Koehler MD [address] [place] [address] [place] [address] documented as of this encounter Visit Diagnoses Not on filedocumented in this encounter Care Teams Operations Administrative Assistant Relationship Specialty Start Date End Date Eldon Koehler MD PCP - General 10/06/07 documented as of this encounter
--- OUTSIDE RECORDS SUMMARY | 2024-05-22 16:58 | XMS_ITS | Encounter Summary ---
Author Organization [facility] Address [address] [place] [address] Care Team Providers Care Oracle Iam Consultant Name Role Phone Eldon Koehler MD Primary Care Provider Reason for Referral * MRI (Routine) - Closed Specialty Diagnoses / Procedures Referred By Contac t Referred To Contact Radiology Diagnoses Weakness of lower extremity, unspecified laterality Procedures MRI LUMBAR WO CONTRAST Eldon Koehler MD [address] [place] [address] [facility] [address] [address] [place] [address] Referral ID Status Reason Start Date Expiration Date Visits Re quested Visits Authorized [id number] Closed 01/30/2023 05/11/2023 1 1 Reason for Visit * MRI (Routine) - Closed Specialty Diagnoses / Procedures Referred By Contac t Referred To Contact Radiology Diagnoses Weakness of lower extremity, unspecified laterality Procedures MRI LUMBAR WO CONTRAST Eldon Koehler MD [address] [place] [address] [address] [place] [address] [facility] [address] [facility] [address] [place] [address] Referral ID Status Reason Start Date Expiration Date Visits Re quested Visits Authorized [id number] Closed 01/30/2023 05/11/2023 1 1 Encounter Details Date Type Department Care Team (Latest Contact Info) Description 02/17/2023 12:40 PM CDT - 02/17/2023 11:59 PM CDT Hospital Encounter [facility] [address] [facility] [address] [place] [address] Eldon Koehler MD [address] [facility] [address] [place] [address] Discharge Disposition: Home or Self Care Social History Tobacco Use Types Packs/Day Years [...] How often do you attend chur or voodoo services? More than 4 times per year 04/30/2019 Do you belong to any clubs o r organizations such as tenriism groups, unions, fraternal or athletic groups, or [...] on file documented as of this encounter Medications at Time of Discharge Medication Sig Dispensed Refills Start Date End Date LORazepam (ATIVAN) 0.5 mg tabletIndications:Cla ustrophobia Take 1 Tablet (0.5 mg) by mouth see administration instructions. 1 tab before mri take another if still anxious 1 Tablet 02/13/2023 HYDROcodone-acetamino phen (NORCO) 5-325 mg tabletIndications:Lum bar radiculopathy Take 1 Tablet by mouth every 4 hours as needed for Pain, Moderate. Max Daily Amount: 6 Tablets 42 Tablet 01/14/2023 rOPINIRole (REQUIP) 2 mg Tablet Take 1 Tablet (2 mg) by mouth daily at bedtime. 90 Tablet 3 12/24/2022 busPIRone (BUSPAR) 10 mg tabletIndications:Rec urrent major depressive disorder, in partial remission Take 1 Tablet (10 mg) by mouth 3 times daily. 180 Tablet 3 12/24/2022 albuterol sulfate HFA 90 mcg/actuation aerosol inhaler Take 2 Puffs by inhalation 4 times daily as needed for Shortness of Breath. 8.5 Gram 2 08/02/2022 rOPINIRole (REQUIP) 0.5 mg tablet Take 1 Tablet (0.5 mg) by mouth late in the day. 90 Tablet 3 03/29/2021 OTHER mvi gummies for women over 50 Calcium with D3 gummies B12 gummies 1500mcg semaglutide (Ozempic) 0.25 mg or 0.5 mg (2 mg/3 mL) Pen Injector Lot: [id number] ex: 07/06/2024 qty: 1 3 mL 01/14/2023 07/15/2023 pregabalin (LYRICA) 50 mg CapsuleIndications:Fi bromyalgia Take 1 Capsule (50 mg) by mouth every 8 hours. 270 Capsule 3 01/14/2023 07/14/2023 methylPREDNISolone (MEDROL DOSPACK) 4 mg Tablets, Dose Pack As directed 21 Tablet 01/14/2023 07/04/2023 semaglutide (Ozempic) 0.25 mg or 0.5 mg (2 mg/3 mL) Pen Injector Inject 0.25 mg by subcutaneous injection every 7 days. 3 mL 01/14/2023 07/15/2023 atorvastatin (LIPITOR) 20 mg tabletIndications:Oth er hyperlipidemia TAKE 1 TABLET BY MOUTH LATE IN THE DAY 90 Tablet 3 12/24/2022 12/23/2023 buPROPion HCL (WELLBUTRIN SR) 150 mg Sustained Release 12 hour tabletIndications:Rec urrent major depressive disorder, in partial remission Take 1 Tablet (150 mg) by mouth daily. 90 Tablet 3 12/24/2022 12/23/2023 celecoxib (CeleBREX) 200 mg capsuleIndications:Fi bromyalgia TAKE 1 CAPSULE BY MOUTH TWO TIMES DAILY 180 Capsule 3 12/24/2022 12/23/2023 DULoxetine (Cymbalta) 60 mg Capsule, Delayed Release(E.C.)Indicati ons:Recurrent major depressive disorder, in partial remission Take 1 Capsule (60 mg) by mouth daily. 90 Capsule 3 12/24/2022 12/23/2023 ezetimibe (Zetia) 10 mg tabletIndications:Oth er hyperlipidemia Take 1 Tablet (10 mg) by mouth daily. 90 Tablet 3 12/24/2022 12/05/2023 metoprolol succinate (TOPROL XL) 25 mg Extended Release 24 hour tablet Take 1 Tablet (25 mg) by mouth daily. 90 Tablet 3 12/24/2022 12/23/2023 levothyroxine 150 mcg tabletIndications:Oth er specified hypothyroidism TAKE 1 TABLET BY MOUTH DAILY 90 Tablet 3 12/24/2022 12/23/2023 omeprazole (PriLOSEC) 20 mg Capsule, Delayed Release(E.C.)Indicati ons:Gastroesophageal reflux disease without esophagitis One daily 90 Capsule 3 12/24/2022 12/23/2023 predniSONE (DELTASONE) 10 mg tablet 4 x 2 days, 3 x 2 days, 2 x 2 days, 1 x 2 days 20 Tablet 01/01/2022 07/04/2023 tirzepatide (Mounjaro) 2.5 mg/0.5 mL Pen Injector Lot: [id number] ex: 02/12/23 qty: 2 BOXES 0.5 mL 01/01/2022 07/15/2023 documented as of this encounter Plan of Treatment Upcoming Encounters Date Type Department Care Team (Late st Contact Info) Description 07/27/2024 9:40 AM CDT Office Visit [facility] Primary Care [address] [place] [address] Eldon Koehler MD [address] [facility] [address] [place] [address] documented as of this encounter Procedures Procedure Name Priority Date/Time Associated Diagnosis Comments MRI LUMBAR WO CONTRAST Routine 02/17/2023 1:36 PM CDT Weakness of lower extremity, unspecified laterality documented in this encounter Results * MRI LUMBAR WO CONTRAST (02/17/2023 1:36 PM CDT) Anatomical Region Laterality Modality Spine Magnetic Resonan ce 02/17/2023 1:40 PM CDT Impressions 02/17/2023 1:47 PM CDT IMPRESSION: 1. Postsurgical changes of L3-L4 posterior instrumented fusion with combined posterior decompression and interbody fusion. 2. Mild multilevel lumbar spondylosis without significant narrowing of the spinal canal. Multilevel neural foraminal stenosis as detailed above. DICTATION LOCATION: Location 1 - [facility] Narrative 02/17/2023 1:47 PM CDT EXAMINATION: MRI LUMBAR WO CONTRAST HISTORY: leg weakness. ?? Weakness of lower extremity, unspecified laterality ?? TECHNIQUE: MRI of the lumbar spine was performed without contrast according to standard protocol. FINDINGS: No prior study is available for comparison at the time of this dictation. There are postsurgical changes of L3-L4 posterior instrumented fusion with combined posterior decompression and interbody fusion. Grade 1 anterolisthesis of L5 on S1. There is minimal retrolisthesis of T12 on L1. Vertebral bodies are normal in height without evidence of compression fractures. Heterogeneous marrow signal without suspicious marrow replacing signal abnormality. The conus medullaris terminates at the level of T12-L1 and the distal spinal cord signal intensity is normal. There is no abdominal aortic aneurysm. There is disc height loss at multiple levels. No soft tissue abnormality is identified. L1-L2: There is mild disc bulge. There is no central canal stenosis. There is mild bilateral facet osteoarthritis. There is moderate bilateral neural foraminal stenosis. L2-L3: There is mild disc bulge. There is no central canal stenosis. The facets are obscured. There is moderate bilateral neural foraminal stenosis. L3-L4: A discectomy is present. There is no central canal stenosis. The facets are obscured. The neural foramina are obscured. L4-L5: There is no disc bulge. There is no central canal stenosis. There is moderate bilateral facet osteoarthritis. There is mild bilateral neural foraminal stenosis. L5-S1: There is diffuse disc bulge. There is no central canal stenosis. The facet joints are fused. There is mild bilateral neural foraminal stenosis. Procedure Note Salomón Stevens MD - 02/17/2023 EXAMINATION: MRI LUMBAR WO CONTRAST HISTORY: leg weakness. Weakness of lower extremity, unspecified laterality TECHNIQUE: MRI of the lumbar spine was performed without contrast according to standard protocol. FINDINGS: No prior study is available for comparison at the time of this dictation. There are postsurgical changes of L3-L4 posterior instrumented fusion with combined posterior decompression and interbody fusion. Grade 1 anterolisthesis of L5 on S1. There is minimal retrolisthesis of T12 on L1. Vertebral bodies are normal in height without evidence of compression fractures. Heterogeneous marrow signal without suspicious marrow replacing signal abnormality. The conus medullaris terminates at the level of T12-L1 and the distal spinal cord signal intensity is normal. There is no abdominal aortic aneurysm. There is disc height loss at multiple levels. No soft tissue abnormality is identified. L1-L2: There is mild disc bulge. There is no central canal stenosis. There is mild bilateral facet osteoarthritis. There is moderate bilateral neural foraminal stenosis. L2-L3: There is mild disc bulge. There is no central canal stenosis. The facets are obscured. There is moderate bilateral neural foraminal stenosis. L3-L4: A discectomy is present. There is no central canal stenosis. The facets are obscured. The neural foramina are obscured. L4-L5: There is no disc bulge. There is no central canal stenosis. There is moderate bilateral facet osteoarthritis. There is mild bilateral neural foraminal stenosis. L5-S1: There is diffuse disc bulge. There is no central canal stenosis. The facet joints are fused. There is mild bilateral neural foraminal stenosis. IMPRESSION: 1. Postsurgical changes of L3-L4 posterior instrumented fusion with combined posterior decompression and interbody fusion. 2. Mild multilevel lumbar spondylosis without significant narrowing of the spinal canal. Multilevel neural foraminal stenosis as detailed above. DICTATION LOCATION: Location 1 - [facility] Eldon Koehler MD MR ORDERABLES documented in this encounter Visit Diagnoses Diagnosis Weakness of lower extremity, unspecified laterality documented in this encounter Care Teams Oracle Iam Consultant Relationship Specialty Start Date End Date Eldon Koehler MD PCP - General 10/06/07 documented as of this encounter
--- OUTSIDE RECORDS SUMMARY | 2024-05-22 16:58 | XMS_ITS | Encounter Summary ---
Author Organization [facility] Address [address] [place] [address] Care Team Providers Care Air Carrier Operations Inspector Name Role Phone Eldon Koehler MD Primary Care Provider [phone] Reason for Visit * Reason Onset Date Comments Results 02/17/2023 Encounter Details Date Type Department Care Team (Late st Contact Info) Description 02/17/2023 Telephone [facility] Primary Care [address] [place] [address] Eldon Koehler MD [address] [place] [address] [address] [place] [address] Results Social History Tobacco Use [...] often do you attend chur ch or gnosticist services? More than 4 times per year [...] Telephone Encounter - Eldon Koehler MD - 02/17/2023 4:46 PM CDT Spoke with pt has appt with spine surgeon documented in this encounter Plan of Treatment Upcoming Encounters Date Type Department Care Team (Late st Contact Info) Description 07/27/2024 9:40 AM CDT Office Visit [facility] Primary Care [address] [place] [address] Eldon Koehler MD [address] [place] [address] [address] [place] [id number] documented as of this encounter Visit Diagnoses Not on filedocumented in this encounter Care Teams Air Carrier Operations Inspector Relationship Specialty Start Date End Date Eldon Koehler MD PCP - General 10/06/07 documented as of this encounter
--- OUTSIDE RECORDS SUMMARY | 2024-05-22 16:58 | XMS_ITS | Encounter Summary ---
Author Organization [facility] Address [address] [place] [address] Care Team Providers Care Aeronautical Products Sales Engineer Name Role Phone Eldon Koehler MD Primary Care Provider [phone] Reason for Visit * Reason Onset Date Comments SAMPLES 01/01/2022 Encounter Details Date Type Department Care Team (Late st Contact Info) Description 01/01/2022 Refill [facility] Primary Care [address] [place] [address] Eldon Koehler MD [address] [place] [address] [address] [place] [address] Social History Tobacco Use Types [...] often do you attend chur ch or orthodox services? More than 4 times per year [...] Visit [facility] Care [address] [place] [place] [address] Eldon Koehler MD [address] [place] [address] [address] documented as of this encounter Visit Diagnoses Not on filedocumented in this encounter Additional Health Concerns Assessment Noted Time PHQ-9 Depression Total Score: 2 08/09/19 22 10:17 AM CDT documented as of this encounter Care Teams Aeronautical Products Sales Engineer Relationship Specialty Start Date End Date Eldon Koehler MD PCP - General 10/06/07 documented as of this encounter
--- OUTSIDE RECORDS SUMMARY | 2024-05-22 16:58 | XMS_ITS | Encounter Summary ---
Author Organization [facility] Address [address] [place]: Epic Prelude [place] [address] Care Team Providers Care Dirt Bike Mechanic Name Role Phone Eldon Koehler MD Primary Care Provider [phone] Encounter Details Date Type Department Care Team (Latest Contact Info) Description 01/11/2022 Travel Social History Tobacco Use Types Packs/Day [...] 04/30/2019 How often do you attend [facility] or zoroastrianism services? More than 4 times per year 04/30/2019 Do you belong to any clubs o r organizations such as orthodox groups, unions, fraternal or athletic groups, [...] Description 07/27/2024 9:40 AM CDT Office Visit [facility] Primary Care [address] [place] [address] Eldon Koehler MD [address] [place] [address] [address] [place] [address] documented as of this encounter Visit Diagnoses Not on filedocumented in this encounter Additional Health Concerns Assessment Noted Time PHQ-9 Depression Total Score: 2 08/09/19 22 10:17 AM CDT documented as of this encounter Care Teams Dirt Bike Mechanic Relationship Specialty Start Date End Date Eldon Koehler MD PCP - General 10/06/07 documented as of this encounter
--- OUTSIDE RECORDS SUMMARY | 2024-05-22 16:58 | XMS_ITS | Encounter Summary ---
Author Organization [facility] Address [address] [place] [address] Care Team Providers Care Advertising Rep Name Role Phone Eldon Koehler MD Primary Care Provider [phone] Reason for Visit * Reason Comments Establish Care Ruptured TM Encounter Details Date Type Department Care Team (Latest Contact Info) Description 09/09/2022 3:45 PM CDT Office Visit [facility] EAR, NOSE AND THROAT [facility] [address] [facility] [address] [place] [address] Wilfrid Maxwell MD [address] [place] [address]. [facility] [address] [place] [address] Mixed conductive and sensorineural hearing loss of both ears (Primary Dx); Otitis media with effusion, right; Bilateral impacted cerumen Social History Tobacco Use Types Packs/Day Years [...] often do you attend chur ch or shinto services? More than 4 times [...] as of this encounter Progress Notes * Wilfrid Maxwell MD - 09/09/2022 3:58 PM CDT Subjective: Reason for Visit: Establish Care (Ruptured TM) HPI: Winifred Rodriguez is a 72 y.o. female presents with Establish Care (Ruptured TM) . Pt notes use of qtips and had pain when qtip apparently punctured TM on right. Pos right otalgia without drainage or pain or vertigo. Pos hearing loss on left. Cerumen noted on prior exams. Outside records reviewed: Eldon Koehler MD Review of Systems Review of Systems Constitutional: Negative for fever. HENT: Positive for ear pain, hearing loss and tinnitus. Negative for congestion, ear discharge, sinus pressure and sinus pain. Respiratory: Negative for cough. Neurological: Negative for dizziness and headaches. All other systems reviewed and are negative. Past Medical History: Diagnosis Date Arthritis 20 years ago Arthropathy, unspecified, site unspecified Asthma allergy induced Cataract Chronic fatigue syndrome Depression 30 years ago Fibromyalgia GERD (gastroesophageal reflux disease) Hypothyroidism Injury of back Obstructive sleep apnea uses cpap Obstructive sleep apnea (adult) (pediatric) cpap at night Post-operative nausea and vomiting Psychiatric disorder depression Right rotator cuff tear Unspecified disorder of lipoid metabolism Unspecified essential hypertension Current Outpatient Medications on File Prior to Visit Medication Sig Dispense Refill albuterol sulfate HFA 90 mcg/actuation aerosol inhaler Take 2 Puffs by inhalation 4 times daily as needed for Shortness of Breath. 8.5 Gram 2 buPROPion HCL (WELLBUTRIN SR) 150 mg Sustained Release 12 hour tablet TAKE 1 TABLET BY MOUTH DAILY 90 Tablet 3 DULoxetine (Cymbalta) 60 mg Capsule, Delayed Release(E.C.) Take 1 Capsule (60 mg) by mouth daily. 90 Capsule 3 atorvastatin (LIPITOR) 20 mg tablet TAKE 1 TABLET BY MOUTH LATE IN THE DAY 90 Tablet 3 omeprazole (PriLOSEC) 20 mg Capsule, Delayed Release(E.C.) One daily 90 Capsule 3 metoprolol succinate (TOPROL XL) 25 mg Extended Release 24 hour tablet Take 1 Tablet (25 mg) by mouth daily. 90 Tablet 3 celecoxib (CeleBREX) 200 mg capsule TAKE 1 CAPSULE BY MOUTH TWO TIMES DAILY 180 Capsule 3 ezetimibe (Zetia) 10 mg tablet Take 1 Tablet (10 mg) by mouth daily. 90 Tablet 3 levothyroxine 150 mcg tablet TAKE 1 TABLET BY MOUTH DAILY 90 Tablet 3 pregabalin (LYRICA) 50 mg Capsule TAKE 1 CAPSULE BY MOUTH EVERY 12 HOURS 180 Capsule 3 predniSONE (DELTASONE) 10 mg tablet 4 x 2 days, 3 x 2 days, 2 x 2 days, 1 x 2 days (Patient not taking: Reported on 07/09/2022) 20 Tablet 0 tirzepatide (Mounjaro) 2.5 mg/0.5 mL Pen Injector Lot: [id number] ex: 02/12/23 qty: 2 BOXES (Patient not taking: Reported on 07/09/2022) 0.5 mL 0 rOPINIRole (REQUIP) 0.5 mg tablet Take 1 Tablet (0.5 mg) by mouth late in the day. 90 Tablet 3 rOPINIRole (REQUIP) 2 mg Tablet Take 1 Tablet (2 mg) by mouth daily at bedtime. 90 Tablet 3 OTHER mvi gummies for women over 50 Calcium with D3 gummies B12 gummies 1500mcg No current facility-administered medications on file prior to visit. Allergies Allergen Reactions Nickel Hives Clindamycin Rash and Itching Codeine Nausea and Vomiting Nsaids (Non-Steroidal Anti-Inflammatory Drug) Other (See Comments) S/P SLEEVE GASTRECTOMY Social History Tobacco Use Smoking status: Never Smokeless tobacco: Never Vaping Use Vaping Use: Never used Substance Use Topics Alcohol use: Never Drug use: No TOBACCO COUNSELING She is not a tobacco user. Objective: There were no vitals taken for this visit. General: Alert and oriented; no apparent distress. Cranial Nerve Exam: CN III- XII grossly intact. HEENT: Eyes: PERRLA; EOMI. Ears: Right: EAC cerumen and erythema; TM normal and ME effusion, serous Left: EAC cerumen and erythema; TM normal and ME normal [place] Exam: [place]gu[place]: midline Rinne: BC greater than AC Nose: Mucosa swollen. Respiration: Unlabored breathing. Neck: Trachea midline. No masses. Imaging reviewed: N/A Labs reviewed: Lab Results Component Value Date/Time TSH 2.22 07/02/2022 08:21 AM Lab Results Component Value Date/Time CA 9.0 07/02/2022 08:21 AM Procedure: The patients bilateral ear showed obstructive cerumen and under under binocular microscopy. At high magnification, the impacted cerumen was removed from the aural cavity using curettes, picks aligator forceps and suction clearing the ear canal and offering adequate visualization of the tympanic membrane. The patient tolerated the procedure well. Assessment: ICD-10-CM ICD-9-CM 1. Mixed conductive and sensorineural hearing loss of both ears H90.6 389.22 2. Otitis media with effusion, right H65.91 381.4 3. Bilateral impacted cerumen H61.23 380.4 REMOVE IMPACTED EAR WAX Plan: Cortisporin drops bid for one week to both ears Postpone audiogram due to fluid on right No apparent TM rupture F/u 2 mo with audio Avoid FB in ears. Orders Placed This Encounter REMOVE IMPACTED EAR WAX documented in this encounter Procedure Notes * Wilfrid Maxwell MD - 09/09/2022 4:26 PM CDTAssociated Order(s): REMOVE IMPACTED EAR WAX Procedure(s): CT REMOVAL IMPACTED CERUMEN INSTRUMENTATION UNILAT Pre-Procedure Diagnose(s): Bilateral impacted cerumen The patients bilateral ear showed obstructive cerumen and under under binocular microscopy. At highmagnification, the impacted cerumen was removed from the aural cavity using curettes, picks aligator forceps and suction clearing the ear canal and offering adequate visualization of the tympanic membrane. The patient tolerated the procedure well. documented in this encounter Plan of Treatment Upcoming Encounters Date Type Department Care Team (Late st Contact Info) Description 07/27/2024 9:40 AM CDT Office Visit [facility] Primary Care [address] [place] [address] Eldon Koehler MD [address] [place] [address] [address] documented as of this encounter Procedures Procedure Name Priority Date/Time Associated Diagnosis Comments CT REMOVAL IMPACTED CERUMEN INSTRUMENTATION UNILAT Routine 09/09/2022 4:26 PM CDT Bilateral impacted cerumen documented in this encounter Results * CT REMOVAL IMPACTED CERUMEN INSTRUMENTATION UNILAT (09/09/2022 4:26 PM CDT) Narrative Wilfrid Maxwell MD - 09/09/2022 4:26 PM CDT Wilfrid Maxwell MD ? 09/09/2022 ??4:30 PM The patients bilateral ear showed obstructive cerumen and under under binocular microscopy. ??At high magnification, the impacted cerumen was removed from the aural cavity using curettes, picks aligator forceps and suction clearing the ear canal and offering adequate visualization of the tympanic membrane. ??The patient tolerated the procedure well. Wilfrid Maxwell MD PROCEDURE/MINOR SURG ICAL ORDERABLES documented in this encounter Visit Diagnoses Diagnosis Mixed conductive and sensorineural hearing loss of both ears- Primary Mixed hearing loss, bilateral Otitis media with effusion, right Bilateral impacted cerumen Impacted cerumen documented in this encounter Care Teams Advertising Rep Relationship Specialty Start Date End Date Eldon Koehler MD PCP - General 10/06/07 documented as of this encounter
--- OUTSIDE RECORDS SUMMARY | 2024-05-22 16:58 | XMS_ITS | Encounter Summary ---
Author Organization [facility] Address [address] [address] [place]: Epic Prelude [place] [address] Care Team Providers Care Choir Member Name Role Phone Eldon Koehler MD Primary Care Provider [phone] Encounter Details Date Type Department Care Team (Latest Contact Info) Description 09/09/2022 Travel Social History Tobacco Use Types Packs/Day [...] week 04/30/2019 How often do you attend [facility] or temple services? More than 4 times [...] Visit [facility] Primary Care [address] [place] [address] Eldon Koehler MD [address] [place] [address] [address] [place] [address] documented as of this encounter Visit Diagnoses Not on filedocumented in this encounter Care Teams Choir Member Relationship Specialty Start Date End Date Eldon Koehler MD PCP - General 10/06/07 documented as of this encounter
--- OUTSIDE RECORDS SUMMARY | 2024-05-22 16:59 | XMS_ITS | Encounter Summary ---
Author Organization [facility] Address [address] [place] [address] Care Team Providers Care Retirement Consultant Name Role Phone Eldon Koehler MD Primary Care Provider [phone] Reason for Visit * Reason Onset Date Comments Medication Refill 06/04/2021 Encounter Details Date Type Department Care Team (Late st Contact Info) Description 06/04/2021 Refill [facility] Internal Medicine [address] [address] Eldon Koehler MD [address] [place] [address] Social History Tobacco Use Types Packs/Day [...] often do you attend chur ch or confucianism services? More than 4 times per year 04/30/2019 Do you belong to any clubs o r organizations such as catholic groups, unions, fraternal or athletic groups, or [...] care, and heating? Not hard at all 07/31/2020 Food Insecurity Answer Date Recorded In the past 12 months, have you worried that your food would run out before you had money to buy more? Never true 07/31/2020 In the past 12 months, did y ou run out of food and didn't have money to buy more? Never true 07/31/2020 Transportation Needs Answer Date Record ed In the past 12 months, has l ack of transportation kept you from medical appointments or from getting medications? No 07/31/2020 Lack of Transportation (Non-Medical) Not on file 07/31/2020 Sex and Gender Information Value Date Recorded Sex Assigned at Not on file Gender Identity Not on file Sexual Orientation Not on file documented as of this encounter Plan of Treatment Upcoming Encounters Date Type Department Care Team (Late st Contact Info) Description 07/27/2024 9:40 AM CDT Office Visit [facility] Primary Care [place] [id number] Eldon Koehler MD [address] [place], [place] [id number] documented as of this encounter Visit Diagnoses Not on filedocumented in this encounter Additional Health Concerns Assessment Noted Time PHQ-9 Depression Total Score: 2 08/01/19 21 9:15 PM CDT documented as of this encounter Care Teams Retirement Consultant Relationship Specialty Start Date End Date Eldon Koehler MD PCP - General 10/06/07 documented as of this encounter
--- OUTSIDE RECORDS SUMMARY | 2024-05-22 16:59 | XMS_ITS | Encounter Summary ---
Author Organization [facility] Address [address] [place]: Epic Prelude [place] [address] Care Team Providers Care Reduction Furnace Operator Helper Name Role Phone Eldon Koehler MD Primary Care Provider [phone] Encounter Details Date Type Department Care Team (Latest Contact Info) Description 06/12/2021 Travel Social History Tobacco Use Types Packs/Day [...] How often do you attend chur or pentecostal services? More than 4 times per year 04/30/2019 Do you belong to any clubs o r organizations such as methodist groups, unions, fraternal or athletic groups, or [...] Exposure Response Date Recorded In the last month, have you been in contact with someone who was confirmed or suspected to have Coronavirus / COVID-19? No / Unsure 06/12/2021 1:57 PM CALENDER WIND UP HELPER documented as of this encounter Plan of Treatment Upcoming Encounters Date Type Department Care Team (Late st Contact Info) Description 07/27/2024 9:40 AM CDT Office Visit [facility] Primary Care [place] [address] [place] [address] Eldon Koehler MD [address] [place] [address] [address] documented as of this encounter Visit Diagnoses Not on filedocumented in this encounter Additional Health Concerns Assessment Noted Time PHQ-9 Depression Total Score: 2 08/01/19 21 9:15 PM CDT documented as of this encounter Care Teams Reduction Furnace Operator Helper Relationship Specialty Start Date End Date Eldon Koehler MD PCP - General 10/06/07 documented as of this encounter
--- OUTSIDE RECORDS SUMMARY | 2024-05-22 16:59 | XMS_ITS | Encounter Summary ---
Author Organization [facility] Address [address] [place] [address] Care Team Providers Care Music Historian Name Role Phone Eldon Koehler MD Primary Care Provider [phone] Reason for Visit * Reason Onset Date Comments Needs Orders Written 06/28/2021 Encounter Details Date Type Department Care Team (Late st Contact Info) Description 06/28/2021 Telephone [facility] Primary Care [address] [place] [address] Eldon Koehler MD [address] [place] [address] [address] [place] [address] Needs Orders Written Social History Tobacco Use Types Packs/Day Years [...] often do you attend chur ch or latter day services? More than 4 times per year [...] COVID-19? No / Unsure 06/12/2021 1:57 PM COMMERCIAL INSTRUCTOR SUPERVISOR documented as of this encounter Miscellaneous Notes * Telephone Encounter - Jacklyn Allison - 06/28/2021 9:49 AM CST Order faxed to [facility] ERCIAL INSTRUCTOR SUPERVISOR * Telephone Encounter - Jacklyn Allison - 06/28/2021 9:05 AM CST Pt requests that we fax the order for the xray over to [facility]. ERCIAL INSTRUCTOR SUPERVISOR documented in this encounter Plan of Treatment Upcoming Encounters Date Type Department Care Team (Late st Contact Info) Description 07/27/2024 9:40 AM CDT Office Visit [facility] Primary Care [place] [address] [place] [address] Eldon Koehler MD [address] [place] [phone] documented as of this encounter Visit Diagnoses Not on filedocumented in this encounter Additional Health Concerns Assessment Noted Time PHQ-9 Depression Total Score: 2 08/01/19 21 9:15 PM CDT documented as of this encounter Care Teams Music Historian Relationship Specialty Start Date End Date Eldon Koehler MD PCP - General 10/06/07 documented as of this encounter
--- OUTSIDE RECORDS SUMMARY | 2024-05-22 16:59 | XMS_ITS | Encounter Summary ---
Author Organization [facility] Address [address] [place] [address] Care Team Providers Care Fabric Separator Operator Name Role Phone Eldon Koehler MD Primary Care Provider [phone] Reason for Visit * Reason Comments Medication Refill Encounter Details Date Type Department Care Team (Late st Contact Info) Description 02/25/2021 Refill [facility] Internal Medicine [address] [address] Eldon Koehler MD [address] [place] [address] Social History Tobacco Use Types Packs/Day [...] often do you attend chur ch or adventist services? More than 4 times [...] have Coronavirus / COVID-19? No / Unsure 02/26/2021 11:52 AM CDT documented as of this encounter Miscellaneous Notes * Telephone Encounter - Pearl Black - 02/26/2021 3:17 PM CDT Pt already picked up medication * Telephone Encounter - Pearl Black - 02/26/2021 12:03 PM CDT Kendy 12/05/20 NOV 02/27/21 documented in this encounter Plan of Treatment Upcoming Encounters Date Type Department Care Team (Late st Contact Info) Description 07/27/2024 9:40 AM CDT Office Visit [facility] Primary Care [address] [place] [address] Eldon Koehler MD [address] [place] [address] [place] [address] [place] [address] documented as of this encounter Visit Diagnoses Not on filedocumented in this encounter Additional Health Concerns Assessment Noted Time PHQ-9 Depression Total Score: 2 08/01/19 21 9:15 PM CDT documented as of this encounter Care Teams Fabric Separator Operator Relationship Specialty Start Date End Date Eldon Koehler MD PCP - General 10/06/07 documented as of this encounter
--- OUTSIDE RECORDS SUMMARY | 2024-05-22 16:59 | XMS_ITS | Encounter Summary ---
Author Organization [facility] Address [address] [place]: Epic Prelude [place] [address] Care Team Providers Care Clinical Education Coordinator Name Role Phone Eldon Koehler MD Primary Care Provider [phone] Encounter Details Date Type Department Care Team (Latest Contact Info) Description 04/27/2021 Travel Social History Tobacco Use Types Packs/Day [...] do you attend [facility] or religion services? More than 4 times [...] have Coronavirus / COVID-19? No / Unsure 04/27/2021 10:43 AM SOUND RECORDING TECHNICIAN documented as of this encounter Plan of Treatment Upcoming Encounters Date Type Department Care Team (Late st Contact Info) Description 07/27/2024 9:40 AM CDT Office Visit [facility] Primary Care [place] [address] [place] [address] Eldon Koehler MD [address] [place] [address] [address] documented as of this encounter Visit Diagnoses Not on filedocumented in this encounter Additional Health Concerns Infection Onset Date Last Indicated Resolved Time R/O COVID-19 04/27/2021 05/02/2021 05/04/2021 1:16 AM SOUND RECORDING TECHNICIAN Assessment Noted Time PHQ-9 Depression Total Score: 2 08/01/19 9:15 PM CDT documented as of this encounter Care Teams Clinical Education Coordinator Relationship Specialty Start Date End Date Eldon Koehler MD PCP - General 10/06/07 documented as of this encounter
--- OUTSIDE RECORDS SUMMARY | 2024-05-22 16:59 | XMS_ITS | Encounter Summary ---
Author Organization [facility] Address [address] [place] [address] Care Team Providers Care Chemical Operations And Training Name Role Phone Eldon Koehler MD Primary Care Provider [phone] Reason for Visit * Reason Comments Knee Pain Encounter Details Date Type Department Care Team (Late st Contact Info) Description 09/13/2021 11:30 AM CDT Office Visit [facility] Primary Care [address] [place] [address] Eldon Koehler MD [address] [place] [address] [address] [place] [address] UTI symptoms (Primary Dx); Myalgia; Type 2 diabetes mellitus without complication, unspecified whether longterm insulin use; Vitamin B12 deficiency (non anemic); Leg weakness, bilateral; Lumbar radiculopathy; Mild intermittent asthma without complication Social History Tobacco Use Types Packs/Day Years [...] you attend [facility] or yarsani services? More than 4 times per year 04/30/2019 Do you belong to any clubs o r organizations such as scientologist groups, unions, fraternal or athletic groups, or [...] suspected to have Coronavirus/COVID-19? No / Unsure 09/13/2021 11:13 AM CDT documented as of this encounter Last Filed Vital Signs Vital Sign Reading Time Taken Comments Blood Pressure 110/62 09/13/2021 11:19 AM CDT Pulse 85 09/13/2021 11:19 AM CDT Temperature 36.5 ??C (97.7 ??F) 09/13/2021 11:19 AM C DT Respiratory Rate - - Oxygen Saturation 99% 09/13/2021 11:19 AM CDT Inhaled Oxygen Concentration - - Weight 113.4 kg (250 lb) 09/13/2021 11:19 AM CDT Height 167.6 cm (5' 6 ) 09/13/2021 11:19 AM CDT Body Mass Index 40.35 09/13/2021 11:19 AM CDT documented in this encounter Progress Notes * Eldon Koehler MD - 09/13/2021 4:06 PM CDT hpi Cold x 1 d, qu chills Then wokeup bilat knee pain, leg weakness With dental abscess recent No gu sx noted? abd pain No gi sx noted No resp sx noted Patient Active Problem List Diagnosis Code ??? Hyperlipemia E78.5 ??? Recurrent major depressive disorder, in partial remission F33.41 ??? Osteoarthritis M19.90 ??? Hypothyroidism E03.9 ??? Headache(784.0) R51 ??? Backache, unspecified M54.9 ??? Asthma J45.909 ??? Sleep apnea G47.30 ??? Impaired fasting glucose R73.01 ??? Restless leg syndrome G25.81 ??? GERD (gastroesophageal reflux disease) K21.9 ??? Fibromyalgia M79.7 ??? Hyperhidrosis R61 ??? Meralgia paresthetica G57.10 ??? Obesity (BMI 35.0-39.9 without comorbidity) E66.9 ??? Prediabetes R73.03 exam BP 110/62 Pulse 85 Temp 97.7 ??F (36.5 ??C) Ht 5' 6 (1.676 m) Wt 113.4 kg (250 lb) SpO2 99% BMI 40.35 kg/m?? General appearance: over wt nad Head: Normocephalic, without obvious abnormality, atraumatic Eyes: conjunctivae/corneas clear. PERRLA, EOM's intact. Lids appear normal. Ears: normal TM's (shiny without retraction) and external ear canals AU. No apparent lesions or masses. Hearing grossly normal. Nose: mask Throat:mask Neck: supple, symmetrical, trachea midline, no lymphadenopathy, and thyroid: not enlarged, symmetric, no tenderness/mass/nodules. Lungs: breath sounds equal, clear to auscultation bilaterally, no retractions, no stridor, normal respiratory effort Heart: regular rate and rhythm, S1, S2 normal, no murmur, click, rub, gallop, or abnormal sounds. Abdomen: soft, non-tender. Bowel sounds normal. No masses, no organomegaly. Active bowel sounds. Skin: Skin color, texture, turgor normal. No rashes or lesions noted on arms, chest, or abdomen. Lymphatics: No focal or generalized lymphadenopathy. Neck Ext no edema Knees--s/p bilat tkr slight swelling bilat diffic strength get out of chair Mood stable ASSESSMENT: Encounter Diagnoses Name Primary? UTI symptoms Yes ??? Myalgia ??? Type 2 diabetes mellitus without complication, unspecified whether longterm insulin use ??? Vitamin B12 deficiency (non anemic) ??? Leg weakness, bilateral ??? Lumbar radiculopathy ??? Mild intermittent asthma without complication Myalgia leg weakness With dental abscess--rx abx Reassess sx ? Uti, send for cx May need loot at djd spine issues May need see ortho s/p tkr Asthma has been stable montior for inc sx covid test , flu test neg in office Dm diet reviewed recheck lab PLAN: Orders Placed This Encounter ??? URINE CULTURE (Urine) ??? POC INFLUENZA A/B AND COVID-19 ANTIGENS ??? POC URINALYSIS DIPSTICK AUTOMATED (Point of Care) ??? amoxicillin-clavulanate (AUGMENTIN) 875-125 mg tablet documented in this encounter Plan of Treatment Upcoming Encounters Date Type Department Care Team (Late st Contact Info) Description 07/27/2024 9:40 AM CDT Office Visit [facility] Care [place] [address] [place] [address] Eldon Koehler MD [address] [place] [address] [address] [place] [address] documented as of this encounter Procedures Procedure Name Priority Date/Time Associated Diagnosis Comments POC URINALYSIS DIPSTICK AUTOMATED Routine 09/13/2021 12:44 PM CDT UTI symptoms Myalgia POC INFLUENZA A/B AND COVID-19 ANTIGENS Routine 09/13/2021 12:41 PM CDT Myalgia documented in this encounter Results * (ABNORMAL) POC URINALYSIS DIPSTICK AUTOMATED (09/13/2021 12:44 PM CDT) COLOR UA POC Brown(A) Pale to Dark Yellow [facility] CLARITY UA POC Clear Clear [facility] GLUCOSE UA POC Negative Negative, Normal [facility] BILIRUBIN UA POC 4+(A) Negative [facility] KETONES UA POC 3+(A) Negative [facility] SPECIFIC GRAVITY UA POC 1.005 1.000 - 1.030 [facility] BLOOD UA POC Negative Negative [facility] PH UA POC 6.0 5.0 - 8.0 [facility] PROTEIN UA POC Trace(A) Negative [facility] UROBILINOGEN UA POC Normal <2.0 mg/dL [facility] NITRITE UA POC Negative Negative [facility] LEUKOCYTE ESTERASE UA POC Negative Negative [facility] KIT LOT NUMBER POC [id number] [facility] KIT EXP DATE POC 03/11/2022 [facility] Urine 09/13/2021 12:4 4 PM CDT Eldon Koehler MD POINT OF CARE TESTNEGIN Thomas [facility] CLIA# [id number] [address] * POC INFLUENZA A/B AND COVID-19 ANTIGENS (09/13/2021 12:41 PM CDT) INFLUENZA A AG POC Not Detected Not Detected [facility] INFLUENZA B AG POC Not Detected Not Detected [facility] COVID-19 ANTIGEN POC Presumptively Negative Presumptively Negative [facility] Upper Respiratory 09/13/2021 12:41 PM CDT Eldon Koehler MD POINT OF CARE TESTNEGIN Thomas [facility] CLIA# [id number] [place] [address] documented in this encounter Visit Diagnoses Diagnosis UTI symptoms- Primary Myalgia Mylagia and myositis, unspecified Type 2 diabetes mellitus without complication, unspecified whether longterm insulin use Vitamin B12 deficiency (non anemic) Other B-complex deficiencies Leg weakness, bilateral Other musculoskeletal symptoms referable to limbs Lumbar radiculopathy Thoracic or lumbosacral neuritis or radiculitis, unspecified Mild intermittent asthma without complication Unspecified asthma documented in this encounter Additional Health Concerns Assessment Noted Time PHQ-9 Depression Total Score: 2 08/09/19 22 10:17 AM CDT documented as of this encounter Care Teams Chemical Operations And Training Relationship Specialty Start Date End Date Eldon Koehler MD PCP - General 10/06/07 documented as of this encounter
--- OUTSIDE RECORDS SUMMARY | 2024-05-22 16:59 | XMS_ITS | Encounter Summary ---
Author Organization [facility] Address [address] [place] [address] Care Team Providers Care Knife Finisher Name Role Phone Eldon Koehler MD Primary Care Provider [phone] Reason for Visit * Reason Onset Date Comments Cough 02/26/2021 Encounter Details Date Type Department Care Team (Late st Contact Info) Description 02/26/2021 Telephone [facility] Internal Medicine [address] [address] Eldon Koehler MD [address] [place] [address] Cough Social History Tobacco Use Types Packs/Day Years [...] often do you attend chur ch or taoism services? More than 4 times per year 04/30/2019 Do you belong to any clubs o r organizations such as jewish groups, unions, fraternal or athletic groups, or [...] Telephone Encounter - Eldon Koehler MD - 02/26/2021 12:30 PM CDT sent * Telephone Encounter - Vianey Nobles - 02/26/2021 11:55 AM CDT Patient called w/ sx's of Cough, productive of yellowish white phlegm which started Friday. Also has wheezing and SOB. Had fever yesterday, afebrile today. Loss of smell, but that is normal for her No H/A No Exposure to COVID, of which she is aware, in past 14 days No Travel in past month. No COVID testing in past 14 days. Pt is requesting a Z Pack (states Dr. Koehler Rx's that for her every year) Scheduled for a Video Visit w. SUBSTATION MECHANIC tomorrow 02/27/21 Advised UC today if sx's worsen. documented in this encounter Plan of Treatment Upcoming Encounters Date Type Department Care Team (Late st Contact Info) Description 07/27/2024 9:40 AM CDT Office Visit [facility] Primary Care [address] [place] [address] Eldon Koehler MD [address] [place] [address] [place] [address] [place] [address] documented as of this encounter Visit Diagnoses Not on filedocumented in this encounter Additional Health Concerns Assessment Noted Time PHQ-9 Depression Total Score: 2 08/01/19 21 9:15 PM CDT documented as of this encounter Care Teams Knife Finisher Relationship Specialty Start Date End Date Eldon Koehler MD PCP - General 10/06/07 documented as of this encounter
--- OUTSIDE RECORDS SUMMARY | 2024-05-22 16:59 | XMS_ITS | Encounter Summary ---
Author Organization [facility] Address [address] [place]: Epic Prelude [place] [address] Care Team Providers Care Financial Sales Representative Name Role Phone Eldon Koehler MD Primary Care Provider [phone] Encounter Details Date Type Department Care Team (Latest Contact Info) Description 09/13/2021 Travel Social History Tobacco Use Types Packs/Day [...] week 04/30/2019 How often do you attend [facility] or sabianist services? More than 4 times [...] Description 07/27/2024 9:40 AM CDT Office Visit [facility] Primary Care [place] [address] [place] [address] Eldon Koehler MD [address] [place] [address] [place] [address] [place] [address] documented as of this encounter Visit Diagnoses Not on filedocumented in this encounter Additional Health Concerns Assessment Noted Time PHQ-9 Depression Total Score: 2 08/09/19 22 10:17 AM CDT documented as of this encounter Care Teams Financial Sales Representative Relationship Specialty Start Date End Date Eldon Koehler MD PCP - General 10/06/07 documented as of this encounter
--- OUTSIDE RECORDS SUMMARY | 2024-05-22 16:59 | XMS_ITS | Encounter Summary ---
Author Organization [facility] Address [address] [place] [address] Care Team Providers Care Labeling Machine Operator Name Role Phone Eldon Koehler MD Primary Care Provider [phone] Reason for Visit * Reason Onset Date Comments Results 07/02/2021 Encounter Details Date Type Department Care Team (Late st Contact Info) Description 07/02/2021 Telephone [facility] Primary Care [address] [place] [address] Lacy Vasquez, ANP [address] [place] [address] [address] [place] [address] Results Social History Tobacco Use [...] * Telephone Encounter - Pearl Black - 07/02/2021 12:16 PM CST Spoke with pt. She said she read to sleep in recliner and no bending over and she said she has had no pain. She is scheduled for PT on and she will go 2 days a week. She said no to chiropractor R FIELD SERVICE TECHNICIAN * Telephone Encounter - Lacy Vasquez, KATIE - 07/02/2021 12:05 PM CST Xray shows stable post op changes, but significant degenerative disc disease of surrounding discs. How is she doing after the weekend? Would she want to try pt/chiropractor or look into an MRI if symptoms have worsened? R FIELD SERVICE TECHNICIAN documented in this encounter Plan of Treatment Upcoming Encounters Date Type Department Care Team (Late st Contact Info) Description 07/27/2024 9:40 AM CDT Office Visit [facility] Primary Care [facility] [address] [place] [address] [address] [place] [address] Eldon Koehler MD [address] [facility] [address] [place] [address] documented as of this encounter Visit Diagnoses Not on filedocumented in this encounter Additional Health Concerns Assessment Noted Time PHQ-9 Depression Total Score: 2 08/01/19 21 9:15 PM CDT documented as of this encounter Care Teams Labeling Machine Operator Relationship Specialty Start Date End Date Eldon Koehler MD PCP - General 10/06/07 documented as of this encounter
--- OUTSIDE RECORDS SUMMARY | 2024-05-22 16:59 | XMS_ITS | Encounter Summary ---
Author Organization [facility] Address [address] [place]: Epic Prelude [place] [address] Care Team Providers Care Insurance Checker Name Role Phone Eldon Koehler MD Primary Care Provider [phone] Encounter Details Date Type Department Care Team (Latest Contact Info) Description 08/08/2021 Travel Social History Tobacco Use Types Packs/Day [...] week 04/30/2019 How often do you attend [facility] or episcopal services? More than 4 times per year 04/30/2019 Do you belong to any clubs o r organizations such as sabianist groups, unions, fraternal or athletic groups, or [...] or suspected to have Coronavirus / COVID-19? Unable to assess 08/08/2021 8:07 AM CDT documented as of this encounter Plan of Treatment Upcoming Encounters Date Type Department Care Team (Late st Contact Info) Description 07/27/2024 9:40 AM CDT Office Visit [facility] Primary Care [address] [place] [address] Eldon Koehler MD [address] [place] [address] [address] [address] [place] [address] documented as of this encounter Visit Diagnoses Not on filedocumented in this encounter Additional Health Concerns Assessment Noted Time PHQ-9 Depression Total Score: 2 08/09/19 22 10:17 AM CDT documented as of this encounter Care Teams Insurance Checker Relationship Specialty Start Date End Date Eldon Koehler MD PCP - General 10/06/07 documented as of this encounter
--- OUTSIDE RECORDS SUMMARY | 2024-05-22 16:59 | XMS_ITS | Encounter Summary ---
Author Organization [facility] Address [address] [place] [address] Care Team Providers Care Supervisor [employer] Name Role Phone Eldon Koehler MD Primary Care Provider [phone] Reason for Visit * Reason Onset Date Comments SAMPLES 12/05/2020 Encounter Details Date Type Department Care Team (Late st Contact Info) Description 12/05/2020 Refill [facility] ([facility] Internal Medicine [address] [phone] Eldon Koehler MD [address] [place] [phone] Social History Tobacco Use Types Packs/Day [...] often do you attend chur ch or alevism services? More than 4 times [...] 07/27/2024 9:40 AM CDT Office Visit [facility] ([facility] Primary Care [address] [phone] Eldon Koehler MD [address] [place] [address] [place] [address] documented as of this encounter Visit Diagnoses Not on filedocumented in this encounter Additional Health Concerns Assessment Noted Time PHQ-9 Depression Total Score: 2 08/01/19 21 9:15 PM CDT documented as of this encounter Care Teams Supervisor [employer] Relationship Specialty Start Date End Date Eldon Koehler MD PCP - General 10/06/07 documented as of this encounter
--- OUTSIDE RECORDS SUMMARY | 2024-05-22 16:59 | XMS_ITS | Encounter Summary ---
Author Organization [facility] Address [address] [place] [address] Care Team Providers Care Collar Starcher Name Role Phone Eldon Koehler MD Primary Care Provider Encounter Details Date Type Department Care Team (Late st Contact Info) Description 05/02/2021 Orders Only [facility] Internal Medicine [address] [phone] Brianne Self Other acute sinusitis, recurrence not specified Social History Tobacco Use Types Packs/Day Years [...] often do you attend chur ch or mandaen services? More than 4 times per year 04/30/2019 Do you belong to any clubs o r organizations such as bahai groups, unions, fraternal or athletic groups, or [...] COVID-19? No / Unsure 04/27/2021 10:43 AM VENDING SERVICE TECHNICIAN documented as of this encounter Plan of Treatment Upcoming Encounters Date Type Department Care Team (Late st Contact Info) Description 07/27/2024 9:40 AM CDT Office Visit [facility] Primary Care [place] [phone] Eldon Koehler MD [address] [place], [place] [id number] documented as of this encounter Procedures Procedure Name Priority Date/Time Associated Diagnosis Comments 2019 NOVEL CORONAVIRUS (COVI D-19) PCR DETECTION Routine 04/28/2021 documented in this encounter Results * 2019 NOVEL CORONAVIRUS (COVID-19) PCR DETECTION (04/28/2021) Upper Respiratory Abstract Provider MICROBIOLOGY - GENER AL ORDERABLES EXTERNAL LAB documented in this encounter Visit Diagnoses Diagnosis Other acute sinusitis, recurrence not specified documented in this encounter Additional Health Concerns Infection Onset Date Last Indicated Resolved Time R/O COVID-19 04/27/2021 05/02/2021 05/04/2021 1:16 AM VENDING SERVICE TECHNICIAN Assessment Noted Time PHQ-9 Depression Total Score: 2 08/01/19 21 9:15 PM CDT documented as of this encounter Care Teams Collar Starcher Relationship Specialty Start Date End Date Eldon Koehler MD PCP - General 10/06/07 documented as of this encounter
--- OUTSIDE RECORDS SUMMARY | 2024-05-22 16:59 | XMS_ITS | Encounter Summary ---
Author Organization [facility] Address [address] [place] [address] Care Team Providers Care Experience Specialist Name Role Phone Eldon Koehler MD Primary Care Provider Reason for Referral * Radiology Services (Routine) - Closed Specialty Diagnoses / Procedures Referred By Carmen villalobos Referred To Contact Diagnoses Visit for screening mammogram Procedures MAMMO SCREEN BILAT W OR WO CAD Eldon Koehler MD [address] [facility] [address] [place] [address] Referral ID Status Reason Start Date Expiration Date Visits Re quested Visits Authorized [id number] Closed 08/08/2021 09/08/2022 1 1 * Eval and Treat (Routine) - Closed Specialty Diagnoses / Procedures Referred By Carmen villalobos Referred To Contact Neurology Diagnoses Leg weakness, bilateral Eldon Koehler MD [address] [facility] [address] [place] [address] [facility] [phone] [facility] [address] [place] [address] Referral ID Status Reason Start Date Expiration Date Visits Re quested Visits Authorized [id number] Closed 08/08/2021 08/08/2022 1 1 Reason for Visit * Reason Comments Annual Wellness Visit (Medicare) Thyroid Disorder (office visit) Encounter Details Date Type Department Care Team (Latest Contact Info) Description 08/08/2021 10:15 AM CDT Office Visit [facility] [address] [place] [address] Eldon Koehler MD [address] [facility] [address] [place] [address] Other hyperlipidemia (Primary Dx); Recurrent major depressive disorder, in partial remission; Other specified hypothyroidism; Mild intermittent asthma without complication; Leg weakness, bilateral; Lumbar radiculopathy; Type 2 diabetes mellitus without complication, unspecified whether long term care pharmacist insulin use; Vitamin B12 deficiency (non anemic); Myalgia; Visit for screening mammogram; Morbid obesity with body mass index of 40.0-49.9; Need for vaccination for Strep pneumoniae Social History Tobacco Use Types Packs/Day Years [...] How often do you attend chur or pentecostalism services? More than 4 times [...] Reading Time Taken Comments Blood Pressure 120/80 08/08/2021 10:08 AM CDT Pulse 112 08/08/2021 10:08 AM CDT Temperature 36.4 ??C (97.6 ??F) 08/08/2021 10:08 AM C DT Respiratory Rate - - Oxygen Saturation 97% 08/08/2021 10:08 AM CDT Inhaled Oxygen Concentration - - Weight 117.9 kg (260 lb) 08/08/2021 10:08 AM CDT Height 167.6 cm (5' 6 ) 08/08/2021 10:08 AM CDT Body Mass Index 41.97 08/08/2021 10:08 AM CDT documented in this encounter Progress Notes * Eldon Koehler MD - 08/08/2021 10:25 AM CDT Subjective: Winifred Piper is a 71 y.o. female. hpi Frequent falls Leg weakness djd issues reviewed No injury On cpap Anxiety , ok depn ok Wt up Chol on med Med reviewed Recent lab reviewed Patient Active Problem List Diagnosis Date Noted ??? Prediabetes 12/24/2019 ??? Obesity (BMI 35.0-39.9 without comorbidity) 06/12/2017 ??? Meralgia paresthetica 05/23/2015 ??? 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 Fibromyalgia 04/19/2014 ??? GERD (gastroesophageal reflux disease) 09/16/2013 ??? Restless leg syndrome 10/04/2007 ??? Impaired fasting glucose 08/03/2007 ??? Asthma 06/05/2007 ??? Sleep apnea 06/05/2007 ??? Backache, unspecified 03/02/2007 ??? Headache(784.0) 12/17/2006 ??? Hypothyroidism 04/19/2005 ??? Osteoarthritis 10/19/2004 ??? Recurrent major depressive disorder, in partial remission 06/08/2003 ??? Hyperlipemia 06/07/2003 Current Outpatient Medications on File Prior to Visit Medication Sig Dispense Refill ??? tiZANidine (ZANAFLEX) 2 mg Tablet Take 1 Tablet (2 mg) by mouth every 8 hours as needed for Spasm. 30 Tablet 1 ??? predniSONE (DELTASONE) 10 mg tablet 4 x 2 days, 3 x 2 days, 2 x 2 days, 1 x 2 days 20 Tablet 0 ??? dulaglutide (TRULICITY) 0.75 mg/0.5 mL injection Inject 0.5 mL (0.75 mg) by subcutaneous injection every 7 days. 6 mL 3 ??? rOPINIRole (REQUIP) 2 mg Tablet Take 1 Tablet (2 mg) by mouth see administration instructions. Takes 2.5 mg hs-has 0.5 mg tabs 90 Tablet 3 ??? ezetimibe (Zetia) 10 mg tablet Take 1 Tablet (10 mg) by mouth daily. 90 Tablet 3 ??? dulaglutide (Trulicity) 0.75 mg/0.5 mL injection Lot: [id number] Ex: 11/01 Qty: 2 2 Each 0 ??? metoprolol succinate (TOPROL XL) 25 mg Extended Release 24 hour tablet Take 1 Tablet (25 mg) bymouth daily. 90 Tablet 3 ??? buPROPion HCL (WELLBUTRIN SR) 150 mg Sustained Release 12 hour tablet Take 1 Tablet (150 mg) bymouth daily. 90 Tablet 3 ??? pregabalin (LYRICA) 50 mg Capsule Take 1 Capsule (50 mg) by mouth every 12 hours. 180 Capsule 3 ??? DULoxetine (Cymbalta) 60 mg Capsule, Delayed Release(E.C.) Take 1 Capsule (60 mg) by mouth daily. 90 Capsule 3 ??? atorvastatin (LIPITOR) 20 mg tablet TAKE 1 TABLET BY MOUTH LATE IN THE DAY 90 Tablet 3 ??? omeprazole (PriLOSEC) 20 mg Capsule, Delayed Release(E.C.) One daily 90 Capsule 3 ??? levothyroxine 150 mcg tablet TAKE 1 TABLET BY MOUTH DAILY 90 Tablet 3 ??? celecoxib (CeleBREX) 200 mg capsule TAKE 1 CAPSULE BY MOUTH TWO TIMES DAILY 180 Capsule 3 ??? rOPINIRole (REQUIP) 0.5 mg tablet Take 1 Tablet (0.5 mg) by mouth late in the day. 90 Tablet 3 ??? benzonatate (TESSALON) 200 mg capsule Take 1 Capsule (200 mg) by mouth 3 times daily as needed for Cough. 30 Capsule 0 ??? fluticasone furoate-vilanteroL (Breo Ellipta) 200-25 mcg/dose Disk with Device Take 1 Puff by inhalation daily. 1 Each 11 ??? albuterol sulfate 90 mcg/Actuation inhaler Take 2 Puffs by inhalation 4 times daily as needed for Shortness of Breath. 8.5 Gram 2 ??? rOPINIRole (REQUIP) 2 mg Tablet Take 1 Tablet (2 mg) by mouth daily at bedtime. 90 Tablet 3 ??? OTHER mvi gummies for women over 50 Calcium with D3 gummies B12 gummies 1500mcg ??? cyclobenzaprine (FLEXERIL) 10 mg tablet Take 1 Tablet (10 mg) by mouth daily at bedtime. 30 Tablet 1 No current facility-administered medications on file prior to visit. Allergies Allergen Reactions ??? Nickel Hives ??? Clindamycin Rash and Itching ??? Codeine Nausea and Vomiting ??? Nsaids (Non-Steroidal Anti-Inflammatory Drug) Other (See Comments) S/P SLEEVE GASTRECTOMY Past Medical History: Diagnosis Date ??? Arthropathy, unspecified, site unspecified ??? Asthma allergy induced ??? Cataract ??? Chronic fatigue syndrome ??? Fibromyalgia ??? GERD (gastroesophageal reflux disease) ??? Hypothyroidism ??? Injury of back ??? Obstructive sleep apnea uses cpap ??? Obstructive sleep apnea (adult) (pediatric) cpap at night ??? Post-operative nausea and vomiting ??? Psychiatric disorder depression ??? Right rotator cuff tear ??? Unspecified disorder of lipoid metabolism ??? Unspecified essential hypertension Past Surgical History: Procedure Laterality Date ??? HX BACK SURGERY 1990, 2010 Spinal fusion L5-S1, Spinal fusion L4-L5 ??? HX CATARACT REMOVAL Bilateral 08/2017 ??? HX CHOLECYSTECTOMY 1998 ??? HX COLONOSCOPY ??? HX DIAGNOSTIC LAPAROSCOPY ??? HX KNEE REPLACEMENT Bilateral 2014, 2015 ??? HX ROTATOR CUFF REPAIR Right 06/12/2016 ??? HX SKIN BIOPSY ??? DC COLONOSCOPY FLX DX W/COLLJ SPEC WHEN PFRMD N/A 03/15/2015 COLONOSCOPY performed by Osei Sutton MD at [facility] ??? DC COLONOSCOPY FLX DX W/COLLJ SPEC WHEN PFRMD N/A 08/08/2020 COLONOSCOPY performed by Osei Sutton MD at [facility] ??? DC ESOPHAGOGASTRODUODENOSCOPY TRANSORAL DIAGNOSTIC N/A 01/21/2017 ESOPHAGOGASTRODUODENOSCOPY performed by Elizabeth Mcbride MD at [facility] OR ??? DC LAP, ORLY RESTRICT PROC, LONGITUDINAL GASTRECTOMY N/A 01/21/2017 GASTRECTOMY LONGITUDINAL LAPAROSCOPIC performed by Elizabeth Mcbride MD at [facility] OR Family History Problem Relation Name Age of Onset ??? Colon Cancer Mother ??? Stroke Father ??? Stroke Maternal Grandfather ??? Stroke Paternal Grandfather ??? Kidney Disease Brother HIERO ??? Healthy Brother SHEREEN ??? Healthy Brother BEENA Social History Tobacco Use ??? Smoking status: Never Smoker ??? Smokeless tobacco: Never Used Substance Use Topics ??? Alcohol use: Never Exam/Objective: BP 120/80 Pulse (!) 112 Temp 97.6 ??F (36.4 ??C) (Temporal) Ht 5' 6 (1.676 m) Wt 117.9 kg (260 lb) SpO2 97% BMI 41.97 kg/m?? General appearance: over wt nad Head: [...] lymphadenopathy. Neck Ext no edema Mood stable Assessment and Plan: ASSESSMENT: ICD-10-CM ICD-9-CM 1. Other hyperlipidemia E78.49 272.4 COMPREHENSIVE METABOLIC PANEL TSH CK 2. Recurrent major depressive disorder, in partial remission F33.41 296.35 3. Other specified hypothyroidism E03.8 244.8 4. Mild intermittent asthma without complication J45.20 493.90 CBC WITH DIFFERENTIAL 5. Leg weakness, bilateral R29.898 729.89 AMB REFERRAL TO NEUROLOGY 6. Lumbar radiculopathy M54.16 724.4 7. Type 2 diabetes mellitus without complication, unspecified whether long term care pharmacist insulin use E11.9 250.00 HEMOGLOBIN A1C MICROALBUMIN/CREATININE RATIO, RANDOM UR 8. Vitamin B12 deficiency (non anemic) E53.8 266.2 VITAMIN B12 LEVEL 9. Myalgia M79.10 729.1 VITAMIN D 25 HYDROXY 10. Visit for screening mammogram Z12. V76.12 MAMMO SCREEN BILAT W OR WO CAD 11. Morbid obesity with body mass index of 40.0-49.9 E66.01 278.01 12. Need for vaccination for Strep pneumoniae Z23 V03.82 PNEUMOCOCCAL POLYSACCHARIDE VACC 23 VALENT Chol con tmed Depression contniue med Thyroid stable Asthma monitor for flare up Obesity wt loss reviewed Thyroid cont med Health Maintenance Topic Date Due ??? DIABETES ANNUAL RETINAL EXAM Never done ??? DIABETES MICROALBUMIN ANNUAL SCREEN Never done ??? PNEUMOCOCCAL VACCINE 65+ YEARS (1 of 1 - PPSV23) 04/13/2019 ??? BREAST CANCER SCREENING 11/03/2020 ??? DIABETES ANNUAL FOOT EXAM 12/05/2021 ??? DIABETES HBA1C Q 6 MONTHS 02/01/2022 ??? LDL CHOLESTEROL ANNUAL 08/01/2022 ??? Annual Wellness Visit-Medicare 08/09/2022 ??? Colorectal Cancer Screening 08/08/2025 ??? OSTEOPOROSIS SCREENING Completed ??? ZOSTER VACCINE Completed ??? INFLUENZA VACCINE Completed ??? COVID-19 Vaccine Completed Eye exma pend 4th covid vaccine disucssed PLAN: Orders Placed This Encounter ??? MAMMO SCREEN BILAT W OR WO CAD ??? PNEUMOCOCCAL 23 VALENT VACCINE (ADULT) ??? CBC WITH DIFFERENTIAL ??? COMPREHENSIVE METABOLIC PANEL ??? HEMOGLOBIN A1C ??? TSH ??? VITAMIN B12 LEVEL ??? VITAMIN D 25 HYDROXY ??? MICROALBUMIN/CREATININE RATIO, RANDOM UR ??? CK (Chemistry) ??? *[facility] - [facility] [address] Appropriate medications prescribed Appropriate patient instructions provided Follow-up as I have indicated. Medications and options explained to include common side effects. Understanding of medications, course, diagnosis, and expectations were expressed by patient/guardian. MEDICARE WELLNESS VISIT Winifred Piper is a 71 y.o. female here today for her Annual Wellness Visit (Medicare) and Thyroid Disorder (office visit) HEALTH RISK ASSESSMENT Completed by and reviewed with patient/caregiver. See Annual Wellness Visit HRA Flowsheet MEDICAL RECORD REVIEWED AND UPDATED, INCLUDING: Current providers and suppliers: Patient Care Team: Eldon Koehler MD as PCP - General Elizabeth Mcbride MD as Consulting Physician (Surgery) Past Medical and Surgical History Family History Current medications and allergies In general, how often do you forget or decide not to take one or more of your medications?: Sometimes (08/08/211016) Social History How hard is it for you to pay for the very basics like food, housing, medical care, and heating?: Not hard at all (08/08/211016) In the past 12 months, have you worried that your food would run out before you had money to buy more?: Never true (08/08/211016) In the past 12 months, did you run out of food and didn't have money to buy more?: Never true (08/08/211016) In the past 12 months, has lack of transportation kept you from medical appointments or from getting medications?: No (08/08/211016) EXAMINATION(MA may complete) BP 120/80 Pulse (!) 112 Temp 97.6 ??F (36.4 ??C) (Temporal) Ht 5' 6 (1.676 m) Wt 117.9 kg (260 lb) SpO2 97% BMI 41.97 kg/m?? Visual Acuity: Hearing: Have you been told by others you turn up your TV volume too high or that you have problems hearing?: No (08/08/211016) FUNCTIONAL ABILITY AND SAFETY (MA may complete) Have you fallen one or more times in the past year?: No (08/08/211016) Are you worried that you might fall due to balance problems? no Do you have leaking of urine?: No (08/08/211016) Does patient need help with (ADL's): Dressing: No (08/08/211016) Bathing: No (08/08/211016) Walking: No (08/08/211016) Shopping: No (08/08/211016) Housekeeping: Yes (08/08/211016) Managing your medication: No (08/08/211016) Managing my finances: No (08/08/211016) Do you currently use any medical equipment, such as a cane, walker, wheelchair, or oxygen tank?: No(08/08/211016) Do you fasten your seat belt when you are in the car?: Yes (08/08/211016) Do you have family and/or friends that provide you with support or care when needed?: Yes () Who gives you the most support?: Spouse (08/08/211016) Do you feel safe at home?: Yes (08/08/211016) RISK ASSESSMENT (MA or Provider can complete) (QM) Positive: PHQ-2 score >= 3 or PHQ-9 score >= 9 PHQ-2 Total: 2 (08/08/2021 10:17 AM) PHQ-9 Total: 5 (08/08/2021 10:17 AM) DEPRESSION PLAN OF CARE Her depression screen was negative. Do you feel stressed, tense, restless, nervous, anxious, or unable to sleep at night because your mind is troubled?: Not at all (08/08/211016) TOBACCO COUNSELING (QM) reports that she has never smoked. She has never used smokeless tobacco. She is not a tobacco user. In a typical week, how many days do you engage in moderate to strenuous exercise such as walking fast, running, jogging, dancing, swimming, biking, or other activities that cause a light or heavy sweat?: 0 days (08/08/21 1017) Patient encouraged to maintain their current level of physical activity. Opioid Use Current Opioids: none on current medication list Cognitive Impairment The patient does not report concerns regarding cognitive or behavioral issues. Cognitive ability observed and assessed throughout the exam. Structured assessment: Mini-Mental Status Exam: TOTAL SCORE: 30 (08/08/21 1000) PREVENTIVE CARE GUIDELINES (MA or Provider can complete) Written Screening Schedule for the next 5-10 years developed and provided to patient. Preventive Care Recommendations for AVERAGE Risk Adult Females Measure USPSTF Recommendation Breast cancer screening (mammogram) Every 1 to 2 years for women >40 Cervical cancer screening (pap test) Women who have not had a hysterectomy. Every 3 years for ages 21-29. Every 3-5 years for ages 30-65 Osteoporosis Screening (bone density) Women >65 Colon Cancer Screening Colonoscopy every 10 yrs or FIT yearly; ages 45-75 Lung Cancer Screening Annual low-dose CT, adults 50 - 80* w/ >20 pack-year smoking hx who currently smoke or have quit w/in 15 yrs (*Some insurances may not cover <55 yo, >77 yo or <30 pk yrs) Lipid Screening Identification of dyslipidemia and calculation of 10-year CVD event risk requires universal lipid screening in adults ages 40 - 75 Diabetic screening Adults 40-70 who are overweight or obese Hepatitis C Screening Adults 18-79 No results found for: HEPCAB Immunizations Influenza: yearly Pneumococcal: PPSV23 x 1 after age 65; +/- PCV13 Tetanus: all adults every 10 yrs Zoster(Shingles):>50yo, series of 2 ADVANCE DIRECTIVE/MEDICAL DECISION MAKER (MA or Provider) Do you have an Advance Directive (Living Will)?: Yes (08/08/21 1017) MEDICAL DECISION MAKER Primary Emergency Contact: MARIANNE PIPER, Relation: Spouse Secondary Emergency Contact: JOHNSON PIPER, Relation: Daughter Is the person(s) listed above who you would want to be your Medical Decision Maker? Yes Have you discussed your healthcare wishes with them? Yes. RISK FACTORS AND CONDITIONS FOR WHICH INTERVENTIONS ARE RECOMMENDED AND/OR UNDERWAY (Provider only) Are you currently on any kind of special diet? : No (08/08/21 1017) During the past 4 weeks, would you say you have had...: Moderate pain (08/08/21 1017) Fall risk EDUCATION/COUNSELING/REFERRAL(S) (Provider only) Exercise program and Fall prevention Orders Placed This Encounter ??? MAMMO SCREEN BILAT W OR WO CAD ??? PNEUMOCOCCAL 23 VALENT VACCINE (ADULT) ??? CBC WITH DIFFERENTIAL ??? COMPREHENSIVE METABOLIC PANEL ??? HEMOGLOBIN A1C ??? TSH ??? VITAMIN B12 LEVEL ??? VITAMIN D 25 HYDROXY ??? MICROALBUMIN/CREATININE RATIO, RANDOM UR ??? CK (Chemistry) ??? *[facility] - [facility] [address] Ms. Piper voiced understanding and agreement with the treatment plan. All questions were answered. Upnjo-Dnzfx-Jktjzju provided to patient. ACUTE AND/OR CHRONIC ISSUES REQUIRING EVALUATION AND MANAGEMENT OUTSIDE THE WELLNESS VISIT (Provider only) Yes: Per E&M documentation: documented in this encounter Plan of Treatment Upcoming Encounters Date Type Department Care Team (Late st Contact Info) Description 07/27/2024 9:40 AM CDT Office Visit [facility] [place] [address] Eldon Koehler MD [address] [place], [place] [id number] Scheduled Referrals Name Type Priority Associated Diagnoses Orde r Schedule AMB REFERRAL TO NEUROLOGY Outpatient Referral Routine Leg weakness, bilateral Ordered: 08/08/2021 documented as of this encounter Procedures Procedure Name Priority Date/Time Associated Diagnosis Comments CBC WITH DIFFERENTIAL Routine 12/27/2021 8:04 AM CDT Mild intermittent asthma without complication VITAMIN D 25 HYDROXY Routine 12/27/2021 8:04 AM CDT Myalgia TSH Routine 12/27/2021 8:04 AM CDT Other hyperlipidemia HEMOGLOBIN A1C Routine 12/27/2021 8:04 AM CDT Type 2 diabetes mellitus without complication, unspecified whether long term care pharmacist insulin use VITAMIN B12 LEVEL Routine 12/27/2021 8:0 4 AM CDT Vitamin B12 deficiency (non anemic) CK Routine 12/27/2021 8:04 AM CDT COMPREHENSIVE METABOLIC PANEL Routine 12/27/2021 8:04 AM CDT Other hyperlipidemia documented in this encounter Results * MAMMO SCREEN BILAT W OR WO CAD (11/18/2022) Anatomical Region Laterality Modality Breast Bilateral Other Eldon Koehler MD MAMMO ORDERABLES * CK (12/27/2021 8:04 AM CDT) CK 42 29 - 143 U/L [facility] Comment: [facility]formed [facility] [address] [place] [address] ??[phone] Brent Lieberman D.O., MPH 12/27/2021 8:04 AM CDT 12/27/2021 8:05 AM CDT Eldon Koehler MD CHEMISTRY ORDERABLES Performing Organization Address City/State/[facility] Co de Phone Number [facility] [phone] [facility] [address] [place] [phone] * VITAMIN D 25 HYDROXY (12/27/2021 8:04 AM CDT) VITAMIN D, 25 OH, TOTAL 44 30 - 100 ng/mL [facility] Comment: Vitamin D Status ? 25-OH Vitamin D: Deficiency: ?<20 ng/mL Insufficiency: ? 20 - 29 ng/mL Optimal: ? > or = 30 ng/mL For 25-OH Vitamin D testing on patients on D2-supplementation and patients for whom quantitation of D2 and D3 fractions is required, the QuestAssureD(TM) 25-OH VIT D, (D2,D3), LC/MS/MS is recommended: order code 19853 (patients >2yrs). See Note 1 Note 1 For additional information, please refer to http://education.Eveo/faq/VAY371 (This link is being provided for informational/ educational purposes only.) Test Performed at: [facility] ??[phone] Brent Lieberman D.O., MPH Blood 12/27/2021 8:04 AM CDT 12/27/2021 8:05 AM CDT Eldon Koehler MD CHEMISTRY ORDERABLES Performing Organization Address [facility] de Phone Number [facility] [phone] [facility] [employer] [address] * VITAMIN B12 LEVEL (12/27/2021 8:04 AM CDT) [facility] VITAMIN B12 353 200 - 1100 pg/mL [facility] Comment: Please Note: Although the reference range for vitamin B12 is 200-1100 pg/mL, it has been reported that between 5 and 10% of patients with values between 200 and 400 pg/mL may experience neuropsychiatric and hematologic abnormalities due to occult B12 deficiency; less than 1% of patients with values above 400 pg/mL will have symptoms. Test Performed at: [facility] [address] [place] [address] ??[phone] Brent Lieberman D.O., MPH Blood 12/27/2021 8:04 AM CDT 12/27/2021 8:05 AM CDT Eldon Koehler MD CHEMISTRY ORDERABLES [facility] [phone] [facility] [address] [place] [address] * TSH (12/27/2021 8:04 AM CDT) Pathologist [facility] TSH 2.44 0.40 - 4.50 mIU/L [facility] Comment: Test Performed at: [facility] ??[phone] Brent Lieberman D.O., MPH Blood 12/27/2021 8:04 AM CDT 12/27/2021 8:05 AM CDT Eldon Koehler MD CHEMISTRY ORDERABLES [facility] [phone] [address] * (ABNORMAL) HEMOGLOBIN A1C (12/27/2021 8:04 AM CDT) [facility] HEMOGLOBIN A1C 5.7(H) <5.7 % of total Hgb [facility] Comment: For someone without known diabetes, [...] [facility]eno ESTIMATED AVERAGE GLUCOSE (MMOL/L) 6.5 mmol/L [facility] Comment: FASTING:YES PATIENT UNABLE TO VOID; ADVISED TO RETURN FOR COLLECTION. FASTING: YES Test Performed at: [facility] [address] [place] ??[phone] Marty Moore Blood 12/27/2021 8:04 AM CDT 12/27/2021 8:05 AM CDT Eldon Koehler MD CHEMISTRY ORDERABLES [facility] [phone] [facility] [address] [place] [address] * COMPREHENSIVE METABOLIC PANEL (12/27/2021 8:04 AM CDT) GLUCOSE 97 65 - 99 mg/dL [facility] Comment: ? Fasting reference interval BUN 19 7 - 25 mg/dL [facility] CREATININE 0.97 0.50 - 1.05 mg/dL [facility] GFR 63 > OR = 60 mL/min/1. 73m2 [facility] Comment: The eGFR is based on the CKD-EPI 2020 equation. To calculate the new eGFR from a previous Creatinine or Cystatin C result, go to https://www.kidney.org/professionals/ kdoqi/gfr%5Fcalculator BUN/CREAT RATIO NOT APPLICABLE 6 - 22 (calc) [facility] SODIUM 143 135 - 146 mmol/L [facility] POTASSIUM 4.6 3.5 - 5.3 mmol/L [facility] CHLORIDE 105 98 - 110 mmol/L [facility] CO2 30 20 - 32 mmol/L [facility] CALCIUM 9.2 8.6 - 10.4 mg/dL [facility] TOTAL PROTEIN 6.8 6.1 - 8.1 g/dL [facility] ALBUMIN 4.2 3.6 - 5.1 g/dL [facility] GLOBULIN 2.6 1.9 - 3.7 g/dL (calc) [facility] ALBUMIN/GLOBULI N RATIO 1.6 1.0 - 2.5 (calc) [facility] BILIRUBIN TOTAL 0.9 0.2 - 1.2 mg/dL [facility] ALKALINE PHOSPHATASE 153 37 - 153 U/L [facility] AST 20 10 - 35 U/L [facility] ALT 17 6 - 29 U/L [facility] Comment: Test Performed at: [facility] [address] [place] ??[phone] Brent Lieberman D.O., MPH Blood 12/27/2021 8:04 AM CDT 12/27/2021 8:05 AM CDT Eldon Koehler MD CHEMISTRY ORDERABLES [facility] [phone] [facility] [address] [place] [address] * (ABNORMAL) CBC WITH DIFFERENTIAL (12/27/2021 8:04 AM CDT) WBC 8.1 3.8 - 10.8 Thousand/u L [facility] RBC 4.70 3.80 - 5.10 Million/uL [facility] HEMOGLOBIN 13.0 11.7 - 15.5 g/dL [facility] HEMATOCRIT 41.1 35.0 - 45.0 % [facility] MCV 87.4 80.0 - 100.0 fL [facility] MCH 27.7 27.0 - 33.0 pg [facility] MCHC 31.6(L) 32.0 - 36.0 g/dL [facility] RDW 13.3 11.0 - 15.0 % [facility] PLATELETS 309 140 - 400 Thousand/u L [facility] MPV 11.0 7.5 - 12.5 fL [facility] NEUTROPHIL ABSOLUTE 4,973 1,500 - 7,800 cells/uL [facility] LYMPHOCYTE ABSOLUTE 2,041 850 - 3,900 cells/uL [facility] MONOCYTE ABSOLUTE 672 200 - 950 cells/uL [facility] EOSINOPHIL ABSOLUTE 332 15 - 500 cells/uL [facility] BASOPHILS ABSOLUTE 81 0 - 200 cells/uL [facility] NEUTROPHIL 61.4 % [facility] LYMPHOCYTES 25.2 % [facility] MONOCYTE 8.3 % [facility] EOSINOPHILS 4.1 % [facility] BASOPHILS 1.0 % [facility] Comment: Test Performed at: [facility] [address] [place], [place] ??[address] Brent Lieberman D.O., MPH Blood 12/27/2021 8:04 AM CDT 12/27/2021 8:05 AM CDT Eldon Koehler MD HEMATOLOGY ORDERABLE S [facility] [phone] [facility] [address] [place] [address] documented in this encounter Visit Diagnoses Diagnosis Other hyperlipidemia- Primary Recurrent major depressive disorder, in partial remission Other specified hypothyroidism Mild intermittent asthma without complication Unspecified asthma Leg weakness, bilateral Other musculoskeletal symptoms referable to limbs Lumbar radiculopathy Thoracic or lumbosacral neuritis or radiculitis, unspecified Type 2 diabetes mellitus without complication, unspecified whether long-term insulin use Vitamin B12 deficiency (non anemic) Other B-complex deficiencies Myalgia Mylagia and myositis, unspecified Visit for screening mammogram Other screening mammogram Morbid obesity with body mass index of 40.0-49.9 Need for vaccination for Strep pneumoniae Need for prophylactic vaccination against streptococcus pneumoniae (pneumococcus) documented in this encounter Additional Health Concerns Assessment Noted Time PHQ-9 Depression Total Score: 2 08/09/19 22 10:17 AM CDT documented as of this encounter Care Teams Experience Specialist Relationship Specialty Start Date End Date Eldon Koehler MD PCP - General 10/06/07 documented as of this encounter
--- OUTSIDE RECORDS SUMMARY | 2024-05-22 16:59 | XMS_ITS | Encounter Summary ---
Author Organization [facility] [employer] Address [address] [place] [address] Care Team Providers Care Aerospace Products Sales Engineer Name Role Phone Eldon Koehler MD Primary Care Provider [phone] Reason for Visit * Reason Onset Date Comments Interventional Imaging 12/17/2021 Encounter Details Date Type Department Care Team (Late st Contact Info) Description 12/17/2021 Telephone [facility] [address] [place] [address] Summary-[facility]ul[facility] Barbosa [facility] Social History Tobacco Use Types Packs/Day Years [...] often do you attend chur ch or methodist services? More than 4 times per year [...] encounter Miscellaneous Notes * Telephone Encounter - Summary-Yulia Barbosa RN - 12/17/2021 11:10 AM CDT [facility] Interaction Note: Service Line: [facility] Chief Complaint: [facility]/ General Survey/ New Health Concerns Assessment: Attempted to contact patient. No answer. Message and return phone number left for patient if/when patient chooses to return call. Visit was completed by: Phone documented in this encounter Plan of Treatment Upcoming Encounters Date Type Department Care Team (Late st Contact Info) Description 07/27/2024 9:40 AM CDT Office Visit [facility] Primary Care [address] [place] [phone] Eldon Koehler MD [address] [place] [address] [place] [address] documented as of this encounter Visit Diagnoses Not on filedocumented in this encounter Additional Health Concerns Assessment Noted Time PHQ-9 Depression Total Score: 2 08/09/19 22 10:17 AM CDT documented as of this encounter Care Teams Aerospace Products Sales Engineer Relationship Specialty Start Date End Date Eldon Koehler MD PCP - General 10/06/07 documented as of this encounter
--- OUTSIDE RECORDS SUMMARY | 2024-05-22 16:59 | XMS_ITS | Encounter Summary ---
Author Organization [facility] Address [address] [place] [address] Care Team Providers Care Adjuster Piano Action Name Role Phone Eldon Koehler MD Primary Care Provider [phone] Encounter Details Date Type Department Care Team (Late st Contact Info) Description 02/20/2021 Abstract [facility] [place] [facility] Internal Medicine [address] [address] Eldon Koehler MD [address] [place] [address] Social History Tobacco Use Types Packs/Day [...] often do you attend chur ch or scientologist services? More than 4 times per year 04/30/2019 Do you belong to any clubs o r organizations such as muslim groups, unions, fraternal or athletic groups, or [...] Description 07/27/2024 9:40 AM CDT Office Visit [facility] [address] [place] [address] Eldon Koehler MD [address] [place] [address] [address] documented as of this encounter Visit Diagnoses Not on filedocumented in this encounter Additional Health Concerns Assessment Noted Time PHQ-9 Depression Total Score: 2 08/01/19 21 9:15 PM CDT documented as of this encounter Care Teams Adjuster Piano Action Relationship Specialty Start Date End Date Eldon Koehler MD PCP - General 10/06/07 documented as of this encounter
--- OUTSIDE RECORDS SUMMARY | 2024-05-22 16:59 | XMS_ITS | Encounter Summary ---
Author Organization [facility] Address [address] [place] [address] Care Team Providers Care Hand Embroiderer Name Role Phone Eldon Koehler MD Primary Care Provider [phone] Reason for Visit * Reason Comments Medication Refill Encounter Details Date Type Department Care Team (Late st Contact Info) Description 03/02/2021 Refill [facility] Internal Medicine [address] [address] Adriana Rubio, ANP [address] [address] Social History Tobacco Use Types Packs/Day [...] encounter Miscellaneous Notes * Telephone Encounter - Dinora Liang - 03/02/2021 10:06 AM CDT EMILY 02/27/21 NOV 04/10/21 documented in this encounter Plan of Treatment Upcoming Encounters Date Type Department Care Team (Late st Contact Info) Description 07/27/2024 9:40 AM CDT Office Visit [facility] Primary Care [address] [place] [address] Eldon Koehler MD [address] [place] [address] [address] [place] [address] documented as of this encounter Visit Diagnoses Not on filedocumented in this encounter Additional Health Concerns Assessment Noted Time PHQ-9 Depression Total Score: 2 08/01/19 21 9:15 PM CDT documented as of this encounter Care Teams Hand Embroiderer Relationship Specialty Start Date End Date Eldon Koehler MD PCP - General 10/06/07 documented as of this encounter
--- OUTSIDE RECORDS SUMMARY | 2024-05-22 16:59 | XMS_ITS | Encounter Summary ---
Author Organization [facility] Address [address] [place] [address] Care Team Providers Care Professor Of Psychology Name Role Phone Eldon Koehler MD Primary Care Provider [phone] Reason for Visit * Reason Onset Date Comments SAMPLES 04/10/2021 Encounter Details Date Type Department Care Team (Late st Contact Info) Description 04/10/2021 Refill [facility] Internal Medicine [address] [address] Eldon Koehler MD [address] [place] [address] Social History Tobacco Use Types Packs/Day [...] have Coronavirus / COVID-19? No / Unsure 04/10/2021 9:45 AM DIPPER AND DRIER documented as of this encounter Plan of Treatment Upcoming Encounters Date Type Department Care Team (Late st Contact Info) Description 07/27/2024 9:40 AM CDT Office Visit [facility] [address] [place] [address] Eldon Koehler MD [address] [place] [address] [address] documented as of this encounter Visit Diagnoses Not on filedocumented in this encounter Additional Health Concerns Assessment Noted Time PHQ-9 Depression Total Score: 2 08/01/19 21 9:15 PM CDT documented as of this encounter Care Teams Professor Of Psychology Relationship Specialty Start Date End Date Eldon Koehler MD PCP - General 10/06/07 documented as of this encounter
--- OUTSIDE RECORDS SUMMARY | 2024-05-22 16:59 | XMS_ITS | Encounter Summary ---
Author Organization [facility] [employer] Address [address] [place] [address] Care Team Providers Care General Accounting Manager Name Role Phone Eldon Koehler MD Primary Care Provider [phone] Reason for Visit * Reason Onset Date Comments [facility] 06/11/2021 Encounter Details Date Type Department Care Team (Late st Contact Info) Description 06/11/2021 Telephone [facility] [address] [place] [id number] Goldy Walker, RN [facility] Social History Tobacco Use Types Packs/Day Years [...] often do you attend chur ch or scientology services? More than 4 times per year [...] encounter Miscellaneous Notes * Telephone Encounter - Margarita Carr - 06/12/2021 1:03 PM CST APPT MADE CIATE DEAN * Telephone Encounter - Margarita Carr - 06/12/2021 11:07 AM CST She is wanting to know if she is needing a video appt or muscle relaxtant for her pain CIATE DEAN * Telephone Encounter - Goldy Walker RN - 06/11/2021 1:15 PM CST vAcute Interaction Note: Service Line: [employer] Called patient regarding Care[facility] survey response. Patient enrolled in General Medical program. Patient reported reported new health concern. Woke up Friday morning with sciatica . Patient reports change to baseline. 2 days ago woke up with Left buttocks pain that does not radiate. Reports pain is worse today. Difficulty sitting. Rates pain as 6/10. Reports last time she had any issues with sciatica was about 15 years ago. These symptoms are similar to her past episode. Reports a little bit of weakness in left leg and says she better be careful to make sure she doesn't fall. Left foot does not drag when she walks. Denies numbness in groin/rectal area. No change in toilet habits. Pain decreased when she is able to lay flat and not move. Putting weight more on left side makes itworse. Has been using heat (minimal relief) , Voltaren (no relief), has taken some Ibuprofen with minimal relief. Advised to call back for any new or worse symptoms. Visit was completed by: Phone Goldy Walker RN, 06/11/2021 1:28 PM CIATE DEAN documented in this encounter Plan of Treatment Upcoming Encounters Date Type Department Care Team (Late st Contact Info) Description 07/27/2024 9:40 AM CDT Office Visit [facility] [place] [address] Eldon Koehler MD [address] [place] [address] documented as of this encounter Visit Diagnoses Not on filedocumented in this encounter Additional Health Concerns Assessment Noted Time PHQ-9 Depression Total Score: 2 08/01/19 21 9:15 PM CDT documented as of this encounter Care Teams General Accounting Manager Relationship Specialty Start Date End Date Eldon Koehler MD PCP - General 10/06/07 documented as of this encounter
--- OUTSIDE RECORDS SUMMARY | 2024-05-22 16:59 | XMS_ITS | Encounter Summary ---
Author Organization [facility] Address [address] [place] [address] Care Team Providers Care Chute Builder Name Role Phone Eldon Koehler MD Primary Care Provider [phone] Reason for Visit * Reason Comments Upper Respiratory Symptoms Encounter Details Date Type Department Care Team (Late st Contact Info) Description 04/27/2021 10:45 AM RENEWABLE ENERGY PROJECT MANAGER Video Visit [facility] Internal Medicine [address] [address] Eldon Koehler MD [address] [place] [address] Other acute sinusitis, recurrence not specified (Primary Dx); Acute bronchitis, unspecified organism; Other asthma Social History Tobacco Use Types [...] How often do you attend chur or evangelical services? More than 4 times per year [...] COVID-19? No / Unsure 04/27/2021 10:43 AM RENEWABLE ENERGY PROJECT MANAGER documented as of this encounter Last Filed Vital Signs Vital Sign Reading Time Taken Comments Blood Pressure - - Pulse - - Temperature - - Respiratory Rate - - Oxygen Saturation - - Inhaled Oxygen Concentration - - Weight 123.8 kg (273 lb) 04/27/2021 10:45 AM RENEWABLE ENERGY PROJECT MANAGER Height 167.6 cm (5' 6 ) 04/27/2021 10:45 AM RENEWABLE ENERGY PROJECT MANAGER Body Mass Index 44.06 04/27/2021 10:45 AM RENEWABLE ENERGY PROJECT MANAGER documented in this encounter Progress Notes * Eldon Koehler MD - 04/27/2021 10:53 AM CST This encounter was completed via two-way synchronous audio and video communication. Patient expressed understanding that using technology outside of [facility] has higher potential tointroduce privacy risks: Not Applicable Patient's identity confirmed yes Patient gave verbal consent to have these services billed to their insurance and expressed understanding that co-insurance and deductible may apply: yes hpi 2d cough kendrick sinus 4 yr old with uri Med reviewed Has inh Patient Active Problem List Diagnosis Code ??? [...] 35.0-39.9 without comorbidity) E66.9 ??? Prediabetes R73.03 Ht 5' 6 (1.676 m) Wt 123.8 kg (273 lb) BMI 44.06 kg/m?? General appearance: over wt nad Head: Normocephalic, without obvious abnormality Eyes: conjunctivae/corneas clear. Lids appear normal. Ears: Hearing grossly normal. Nose: Nares normal. Septum midline. Throat: Lipsnormal. Neck: no visible nodules on video Lungs: does not appear short of breath Heart: no neck vein prominence noted no cyanosis noted Abdomen: NA Mood stable ASSESSMENT: Encounter Diagnoses Name Primary? Other acute sinusitis, recurrence not specified Yes ??? Acute bronchitis, unspecified organism ??? Other asthma Sinus bronchitis rx zpak Asthma has inh Advise covid testing today discussed consider antibody infusion if pos PLAN: Orders Placed This Encounter ??? azithromycin (Zithromax Z-Ollie) 250 mg tablet WABLE ENERGY PROJECT MANAGER documented in this encounter Plan of Treatment Upcoming Encounters Date Type Department Care Team (Late st Contact Info) Description 07/27/2024 9:40 AM CDT Office Visit [facility] Primary Care [address] [place] [address] Eldon Koehler MD [address] [phone] documented as of this encounter Visit Diagnoses Diagnosis Other acute sinusitis, recurrence not specified- Primary Acute bronchitis, unspecified organism Other asthma documented in this encounter Additional Health Concerns Assessment Noted Time PHQ-9 Depression Total Score: 2 08/01/19 21 9:15 PM CDT documented as of this encounter Care Teams Chute Builder Relationship Specialty Start Date End Date Eldon Koehler MD PCP - General 10/06/07 documented as of this encounter
--- OUTSIDE RECORDS SUMMARY | 2024-05-22 16:59 | XMS_ITS | Encounter Summary ---
Author Organization [facility] Address [address] [place] [address] Care Team Providers Care Senior Hydrogeologist Name Role Phone Eldon Koehler MD Primary Care Provider [phone] Reason for Visit * Reason Comments Back Pain Encounter Details Date Type Department Care Team (Late st Contact Info) Description 06/12/2021 2:00 PM LABORATORY SECRETARY Video Visit [facility] Internal Medicine [address] [address] Lacy Vasquez, ANP [address] [place] [address] Acute bilateral low back pain without sciatica (Primary Dx) Social History Tobacco Use Types [...] often do you attend chur ch or mormon services? More than 4 times per year [...] COVID-19? No / Unsure 06/12/2021 1:57 PM LABORATORY SECRETARY documented as of this encounter Last Filed Vital Signs Vital Sign Reading Time Taken Comments Blood Pressure - - Pulse - - Temperature - - Respiratory Rate - - Oxygen Saturation - - Inhaled Oxygen Concentration - - Weight 104.8 kg (231 lb) 06/12/2021 2:00 PM LABORATORY SECRETARY Height 167.6 cm (5' 6 ) 06/12/2021 2:00 PM LABORATORY SECRETARY Body Mass Index 37.28 06/12/2021 2:00 PM LABORATORY SECRETARY documented in this encounter Progress Notes * Lacy Vasquez, ANP - 06/12/2021 2:18 PM CST HISTORY OF PRESENT ILLNESS Winifred Rodriguez, a 70 y.o. female presents with a Chief Complaint of Back Pain Subjective HPI Chief Complaint Patient presents with ??? Back Pain This encounter was completed via two-way synchronous audio and video communication. Patient expressed understanding that using technology outside of [facility] has higher potential tointroduce privacy risks: Yes Patient's identity confirmed yes Patient gave verbal consent to have these services billed to their insurance and expressed understanding that co-insurance and deductible may apply: yes Acute flare of chronic back pain Started Saturday 06/10 after sleeping wrong on the couch Severe low back pain, midline No radiating symptoms Worse with standing and especially sitting Better with laying flat Failed Topical analgesic, old rx of gabapentin, heat/ice Her most recent labs were reviewed. Diet and exercise were reviewed as noted under Social History. Current medications and allergies were updated. 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 Hyperlipemia 06/07/2003 Family History Problem Relation Name Age of Onset ??? Colon Cancer Mother ??? Stroke Father ??? Stroke Maternal Grandfather ??? Stroke Paternal Grandfather ??? Kidney Disease Brother HIERO ??? Healthy Brother SHEREEN ??? Healthy Brother BEENA Social History Other Topics Concern ??? Service No ??? Blood Transfusions Yes Comment: OWN BLOOD ??? Caffeine Concern Yes Comment: NO CAFFIENE ??? Occupational Exposure No ??? Hobby Hazards No ??? Sleep Concern Yes Comment: PAIN CHRONIC ??? Stress Concern Yes Comment: FAMILY STRESS ??? Weight Concern No ??? Special Diet Yes Comment: BY PASS SX DIET ??? Back Care Yes Comment: CHRONIC ??? Exercise Yes Comment: DAILY ??? Bike Helmet No ??? Seat Belt Yes ??? Self-Exams Yes Social History Substance and Sexual Activity Alcohol Use Never Social History Tobacco Use Smoking Status Never Smoker Smokeless Tobacco Never Used Social History Social History Narrative ADULT ADOPTED DAUGHTER AND HER 3 CHILDREN LIVE WITH HER & . REVIEW OF SYSTEMS Review of Systems Constitutional: Negative for fatigue and fever. HENT: Negative. Eyes: Negative. Respiratory: Negative for cough, shortness of breath and wheezing. Cardiovascular: Negative. Negative for chest pain, palpitations and leg swelling. Gastrointestinal: Negative. Endocrine: Negative. Musculoskeletal: Positive for back pain. Negative for myalgias. Skin: Negative. Allergic/Immunologic: Negative. Neurological: Negative. Negative for dizziness and headaches. Hematological: Negative. Psychiatric/Behavioral: Negative. Negative for self-injury and suicidal ideas. Objective PHYSICAL EXAM Ht 5' 6 (1.676 m) Wt 104.8 kg (231 lb) BMI 37.28 kg/m?? Physical Exam Vitals reviewed. Constitutional: General: She is not in acute distress. Appearance: Normal appearance. She is not ill-appearing, toxic-appearing or diaphoretic. HENT: Head: Normocephalic and atraumatic. Eyes: Conjunctiva/sclera: Conjunctivae normal. Pulmonary: Effort: Pulmonary effort is normal. No respiratory distress. Breath sounds: No stridor. Musculoskeletal: Cervical back: Normal range of motion. Lumbar back: Decreased range of motion. Skin: Coloration: Skin is not jaundiced or pale. Neurological: General: No focal deficit present. Mental Status: She is alert and oriented to person, place, and time. Psychiatric: Mood and Affect: Mood normal. Behavior: Behavior normal. Thought Content: Thought content normal. Judgment: Judgment normal. Procedures Assessment ASSESSMENT and PLAN: ICD-10-CM ICD-9-CM 1. Acute bilateral low back pain without sciatica M54.50 724.2 338.19 pred taper zanaflex. Discussed red flags any pelvic anesthesia, bladder/ bowel incontinence, fever, weight loss, worsening pain, weakness, recommend immediate re evaluation in the ED. Activity restrictions discussed. Avoid lifting >15lbs for the next week. Pt given information on new medications including side effects and proper administration. Verbalized understanding. Informed to call with any concerns. Pt instructed to follow-up as needed and/or if symptoms fail to improve or worsen. The patient indicates understanding of these issues and agrees with the plan. Future Appointments Date Time Provider Department Center 08/08/2021 10:15 AM Eldon Koehler MD [facility] RATORY SECRETARY documented in this encounter Plan of Treatment Upcoming Encounters Date Type Department Care Team (Late st Contact Info) Description 07/27/2024 9:40 AM CDT Office Visit [facility] Primary Care [facility] [address] [place] [address] [address] [place] [address] Eldon Koehler MD [address] [place] [address] [address] [place] [address] documented as of this encounter Visit Diagnoses Diagnosis Acute bilateral low back pain without sciatica- Primary documented in this encounter Additional Health Concerns Assessment Noted Time PHQ-9 Depression Total Score: 2 08/01/19 21 9:15 PM CDT documented as of this encounter Care Teams Senior Hydrogeologist Relationship Specialty Start Date End Date Eldon Koehler MD PCP - General 10/06/07 documented as of this encounter
--- OUTSIDE RECORDS SUMMARY | 2024-05-22 16:59 | XMS_ITS | Encounter Summary ---
Author Organization [facility] Address [address] [place] [address] Care Team Providers Care Sizing Machine Tender Name Role Phone Eldon Koehler MD Primary Care Provider [phone] Reason for Visit * Reason Onset Date Comments Medication Refill 10/10/2020 Encounter Details Date Type Department Care Team (Late st Contact Info) Description 10/10/2020 Refill [facility] Internal Medicine [address] [address] Eldon Koehler MD [address] [place] [address] Social History Tobacco Use Types Packs/Day [...] often do you attend chur ch or protestant services? More than 4 times per year 04/30/2019 Do you belong to any clubs o r organizations such as yazdanism groups, unions, fraternal or athletic groups, or [...] encounter Miscellaneous Notes * Telephone Encounter - Dian Arreaga - 10/10/2020 2:41 PM CDT EMILY 08/01/2020 NOV 12/05/2020 documented in this encounter Plan of Treatment Upcoming Encounters Date Type Department Care Team (Late st Contact Info) Description 07/27/2024 9:40 AM CDT Office Visit [facility] Primary Care [address] [place] [address] Eldon Koehler MD [address] [place] [address] [address] [place] [address] documented as of this encounter Visit Diagnoses Not on filedocumented in this encounter Additional Health Concerns Assessment Noted Time PHQ-9 Depression Total Score: 2 08/01/19 9:15 PM CDT documented as of this encounter Care Teams Sizing Machine Tender Relationship Specialty Start Date End Date Eldon Koehler MD PCP - General 10/06/07 documented as of this encounter
--- OUTSIDE RECORDS SUMMARY | 2024-05-22 16:59 | XMS_ITS | Encounter Summary ---
Author Organization [facility] Address [address] [place] [address] Care Team Providers Care Weaving Teacher Name Role Phone Eldon Koehler MD Primary Care Provider [phone] Reason for Visit * Reason Comments Cough STARTED FRIDAY Wheezing Encounter Details Date Type Department Care Team (Late st Contact Info) Description 02/27/2021 9:40 AM CDT Video Visit [facility] Internal Medicine [address] [address] Lacy Vasquez, ANP [address] [place] [address] Wheezing (Primary Dx); COPD with exacerbation; Cough Social History Tobacco Use Types Packs/Day [...] any clubs o r organizations such as gnosticist groups, unions, fraternal or athletic groups, or [...] Sign Reading Time Taken Comments Blood Pressure 146/87 02/27/2021 9:22 AM CDT Pulse - - Temperature - - Respiratory Rate - - Oxygen Saturation - - Inhaled Oxygen Concentration - - Weight - - Height - - Body Mass Index - - documented in this encounter Progress Notes * Lacy Vasquez, ANP - 02/27/2021 9:55 AM CDT HISTORY OF PRESENT ILLNESS Winifred Fredy Rodriguez, a 70 y.o. female presents with a Chief Complaint of Cough (STARTED FRIDAY) and Wheezing Subjective HPI Chief Complaint Patient presents with ??? Cough STARTED FRIDAY ??? Wheezing This encounter was completed via two-way synchronous audio and video communication. Patient expressed understanding that using technology outside of [facility] has higher potential tointroduce privacy risks: Yes Patient's identity confirmed yes Patient gave verbal consent to have these services billed to their insurance and expressed understanding that co-insurance and deductible may apply: yes Cough started 4 days ago Significant production yellow- green/hooper Wheezing with chest tightness- worse than ever she states Out of albuterol and breo No fever/chills No otc treatments zpak sent yesterday by PCP- taken 1 dose No upper respiratory symptoms Daughter ill with similar symptoms Pt is pfizer vaccinated - no booster yet Her most recent labs were reviewed. Diet [...] REVIEW OF SYSTEMS Review of Systems Constitutional: Positive for fatigue. Negative for fever. HENT: Negative. Eyes: Negative. Respiratory: Positive for cough, chest tightness and wheezing. Negative for shortness of breath. Cardiovascular: Negative. Negative for chest pain, palpitations and leg swelling. Gastrointestinal: Negative. Endocrine: Negative. Musculoskeletal: Negative. Negative for back pain and myalgias. Skin: Negative. Allergic/Immunologic: Negative. Neurological: Negative. Negative for dizziness and headaches. Hematological: Negative. Psychiatric/Behavioral: Negative. Negative for self-injury and suicidal ideas. Objective PHYSICAL EXAM BP (!) 146/87 Physical Exam Vitals reviewed. Constitutional: General: She is not in acute distress. Appearance: Normal appearance. She is not ill-appearing, toxic-appearing or diaphoretic. HENT: Head: Normocephalic and atraumatic. Eyes: Conjunctiva/sclera: Conjunctivae normal. Pulmonary: Effort: Pulmonary effort is normal. No respiratory distress. Breath sounds: No stridor. Musculoskeletal: Cervical back: Normal range of motion. Skin: Coloration: Skin is not jaundiced or pale. Neurological: General: No focal deficit present. Mental Status: She is alert and oriented to person, place, and time. Psychiatric: Mood and Affect: Mood normal. Behavior: Behavior normal. Thought Content: Thought content normal. Judgment: Judgment normal. Procedures Assessment ASSESSMENT and PLAN: ICD-10-CM ICD-9-CM 1. Wheezing R06.2 786.07 2. COPD with exacerbation J44.1 491.21 3. Cough R05.9 786.2 Treat as asthma/copd exacebation PCP sent zpak yesterday- finish pred taper Tessalon tid prn Refill albuterol, breo CXR next week if not improving ED if worsens Discussed covid testing warranted, given Delta variant dominance and increasing positivity rate among fully vaccinated. Recommended PCR testing through [facility]/ or local urgent care. Pt given information on new medications including side effects and proper administration. Verbalized understanding. Informed to call with any concerns. Pt instructed to follow-up as needed and/or if symptoms fail to improve or worsen. The patient indicates understanding of these issues and agrees with the plan. Future Appointments Date Time Provider Department Center 04/10/2021 9:45 AM Eldon Koehler MD [facility] documented in this encounter Plan of Treatment Upcoming Encounters Date Type Department Care Team (Late st Contact Info) Description 07/27/2024 9:40 AM CDT Office Visit [facility] Care [address] [place] [address] Eldon Koehler MD [address] [place] [address] [address] [place] [address] documented as of this encounter Visit Diagnoses Diagnosis Wheezing- Primary COPD with exacerbation Obstructive chronic bronchitis with exacerbation Cough documented in this encounter Additional Health Concerns Assessment Noted Time PHQ-9 Depression Total Score: 2 08/01/19 21 9:15 PM CDT documented as of this encounter Care Teams Weaving Teacher Relationship Specialty Start Date End Date Eldon Koehler MD PCP - General 10/06/07 documented as of this encounter
--- OUTSIDE RECORDS SUMMARY | 2024-05-22 16:59 | XMS_ITS | Encounter Summary ---
Author Organization [facility] Address [address] [place] [address] Care Team Providers Care Roping Machine Tender Name Role Phone Eldon Koehler MD Primary Care Provider [phone] Encounter Details Date Type Department Care Team (Late st Contact Info) Description 01/22/2021 Abstract [facility] Internal Medicine [address] [address] Eldon Koehler MD [address] [place] [address] Social History Tobacco Use Types Packs/Day [...] often do you attend chur ch or oriental orthodox services? More than 4 times per [...] 07/27/2024 9:40 AM CDT Office Visit [facility] Care [address] [place] [address] Eldon Koehler MD [address] [place] [address] [address] documented as of this encounter Visit Diagnoses Not on filedocumented in this encounter Additional Health Concerns Assessment Noted Time PHQ-9 Depression Total Score: 2 08/01/19 21 9:15 PM CDT documented as of this encounter Care Teams Roping Machine Tender Relationship Specialty Start Date End Date Eldon Koehler MD PCP - General 10/06/07 documented as of this encounter
--- OUTSIDE RECORDS SUMMARY | 2024-05-22 16:59 | XMS_ITS | Encounter Summary ---
Author Organization [facility] Address [address] [place] [address] Care Team Providers Care Membership Director Name Role Phone Eldon Koehler MD Primary Care Provider [phone] Reason for Visit * Reason Onset Date Comments care connect 11/30/2020 Encounter Details Date Type Department Care Team (Late st Contact Info) Description 11/30/2020 Telephone [facility] [address] [place] [address] Payam Haider, RN care connect Social History Tobacco Use Types Packs/Day Years [...] encounter Miscellaneous Notes * Telephone Encounter - Payam Haider RN - 11/30/2020 11:04 PM CDT Called patient regarding CareConnect survey response. Patient enrolled in General Medical program. Patient reported feeling worse. Patient reports change to baseline Patient talks in clear and complete sentences NAD A/O x 3 Cough: Patient Has history of COPD or Asthma. Patient c/o cough which started 5 day(s) ago. Cough is productive. Sputum is yellow, green, thick. Complains of new/worsening SOB. Denies wheezing. Was wheezing yesterday,not today Denies fever. Denies recent weight gain, swelling, or other signs of overload. Denies known sick contacts. Patient has tried: has not tried any OTC medications to help with symptoms Has been using prescribed albuterol every 3 hours with little relief PLAN: Discussed with JOSEPH Arenas In basket message sent to [facility]ip[facility] GRAC[facility] FRONT OFF[facility] [[phone] Advised patient if she needs to be seen tonight to go to the emergency room- Advised to call PCP in am to talk with PCP Discussed red flags with patient Patient agrees with plan Verbal understanding stated by patient Payam Haider RN documented in this encounter Plan of Treatment Upcoming Encounters Date Type Department Care Team (Late st Contact Info) Description 07/27/2024 9:40 AM CDT Office Visit [facility] Primary Care [address] [place] [address] Eldon Koehler MD [address] [place] [address] [address] [place] [address] documented as of this encounter Visit Diagnoses Not on filedocumented in this encounter Additional Health Concerns Assessment Noted Time PHQ-9 Depression Total Score: 2 08/01/19 21 9:15 PM CDT documented as of this encounter Care Teams Membership Director Relationship Specialty Start Date End Date Eldon Koehler MD PCP - General 10/06/07 documented as of this encounter
--- OUTSIDE RECORDS SUMMARY | 2024-05-22 16:59 | XMS_ITS | Encounter Summary ---
Author Organization [facility] Address [address] [place] [address] Care Team Providers Care Salt Washer Harvesting Station Name Role Phone Eldon Koehler MD Primary Care Provider [phone] Reason for Visit * Reason Onset Date Comments Needs Orders Written 04/27/2021 Encounter Details Date Type Department Care Team (Late st Contact Info) Description 04/27/[address] [facility] Internal Medicine [address] [address] Eldon Koehler MD [address] [place] [address] Needs Orders Written Social History Tobacco [...] any clubs o r organizations such as adventism groups, unions, fraternal or athletic groups, or [...] COVID-19? No / Unsure 04/27/2021 10:43 AM MOLD DESIGN ENGINEER documented as of this encounter Miscellaneous Notes * Telephone Encounter - Margarita Carr - 04/27/2021 12:36 PM CST Need order faxed to get covid test done DESIGN ENGINEER documented in this encounter Plan of Treatment Upcoming Encounters Date Type Department Care Team (Late st Contact Info) Description 07/27/2024 9:40 AM CDT Office Visit [facility] Primary Care [address] [place] [address] Eldon Koehler MD [address] [facility] [address] [place] [address] Scheduled Orders Name Type Priority Associated Diagnoses Orde r Schedule 2019 NOVEL CORONAVIRUS (COVID-19) PCR DETECTION Lab Routine Other acute sinusitis, recurrence not specified Expected: 04/27/2021, Expires: 04/27/2022 documented as of this encounter Visit Diagnoses Diagnosis Other acute sinusitis, recurrence not specified- Primary documented in this encounter Additional Health Concerns Infection Onset Date Last Indicated Resolved Time R/O COVID-19 04/27/2021 05/02/2021 05/04/2021 1:16 AM MOLD DESIGN ENGINEER Assessment Noted Time PHQ-9 Depression Total Score: 2 08/01/19 21 9:15 PM CDT documented as of this encounter Care Teams Salt Washer Harvesting Station Relationship Specialty Start Date End Date Eldon Koehler MD PCP - General 10/06/07 documented as of this encounter
--- OUTSIDE RECORDS SUMMARY | 2024-05-22 16:59 | XMS_ITS | Encounter Summary ---
Author Organization [facility] Address [address] [place] [address] Care Team Providers Care Aircraft Air Conditioning Mechanic Name Role Phone Eldon Koehler MD Primary Care Provider [phone] Encounter Details Date Type Department Care Team (Late st Contact Info) Description 09/19/2020 Abstract [facility] Internal Medicine [address] [address] Eldon Koehler MD [address] [place] [address] Social History Tobacco Use Types Packs/Day [...] often do you attend chur ch or baptism services? More than 4 times per year [...] 9:40 AM CDT Office Visit [facility] [address] [place] [address] Eldon Koehler MD [address] [place] [address] [address] documented as of this encounter Visit Diagnoses Not on filedocumented in this encounter Additional Health Concerns Assessment Noted Time PHQ-9 Depression Total Score: 2 08/01/19 21 9:15 PM CDT documented as of this encounter Care Teams Aircraft Air Conditioning Mechanic Relationship Specialty Start Date End Date Eldon Koehler MD PCP - General 10/06/07 documented as of this encounter
--- OUTSIDE RECORDS SUMMARY | 2024-05-22 16:59 | XMS_ITS | Encounter Summary ---
Author Organization [facility] Address [address] [place] [address] Care Team Providers Care Rn Hedis Name Role Phone Eldon Koehler MD Primary Care Provider [phone] Encounter Details Date Type Department Care Team (Late st Contact Info) Description 06/28/2021 Orders Only [facility] Primary Care [address] [facility] [address] [place] [address] Brianne Self Sciatica associated with disorder of lumbar spine Social History Tobacco Use Types Packs/Day Years [...] often do you attend chur ch or moravian services? More than 4 times per year 04/30/2019 Do you belong to any clubs o r organizations such as mosque groups, unions, fraternal or athletic groups, or [...] COVID-19? No / Unsure 06/12/2021 1:57 PM VP ANCILLARY documented as of this encounter Plan of Treatment Upcoming Encounters Date Type Department Care Team (Late st Contact Info) Description 07/27/2024 9:40 AM CDT Office Visit [facility] Primary Care [address] [address] Eldon Koehler MD [address] [place] [address] documented as of this encounter Procedures Procedure Name Priority Date/Time Associated Diagnosis Comments XR LUMBAR SPINE W BENDING 6+VW Routine 06/28/2021 Sciatica associated with disorder of lumbar spine documented in this encounter Results * XR LUMBAR SPINE W BENDING 6+VW (06/28/2021) Anatomical Region Laterality Modality Spine Other Lacy Vasquez ANP DIAGNOSTIC IMAGING O RDERABLES documented in this encounter Visit Diagnoses Diagnosis Sciatica associated with disorder of lumbar spine documented in this encounter Additional Health Concerns Assessment Noted Time PHQ-9 Depression Total Score: 2 08/01/19 21 9:15 PM CDT documented as of this encounter Care Teams Rn Hedis Relationship Specialty Start Date End Date Eldon Koehler MD PCP - General 10/06/07 documented as of this encounter
--- OUTSIDE RECORDS SUMMARY | 2024-05-22 16:59 | XMS_ITS | Encounter Summary ---
Author Organization [facility] Address [address] [place] [address] Care Team Providers Care Career Development Specialist Name Role Phone Eldon Koehler MD Primary Care Provider [phone] Reason for Visit * Reason Onset Date Comments Medication Refill 03/29/2021 Encounter Details Date Type Department Care Team (Late st Contact Info) Description 03/29/2021 Refill [facility] Internal Medicine [address] [phone] Eldon Koehler MD [address] [place] [address] Fibromyalgia; Other hyperlipidemia Social History Tobacco [...] often do you attend chur ch or spiritism services? More than 4 times per year 04/30/2019 Do you belong to any clubs o r organizations such as protestant groups, unions, fraternal or athletic groups, or [...] encounter Miscellaneous Notes * Telephone Encounter - Melisa Cah - 03/29/2021 2:31 PM CST EMILY: 02/27/21 NOV: 04/10/21 SING SUPERVISOR documented in this encounter Plan of Treatment Upcoming Encounters Date Type Department Care Team (Late st Contact Info) Description 07/27/2024 9:40 AM CDT Office Visit [facility] Primary Care [address] [place] [address] Eldon Koehler MD [address] [place] [address] [address] [place] [address] documented as of this encounter Visit Diagnoses Diagnosis Fibromyalgia Mylagia and myositis, unspecified Other hyperlipidemia documented in this encounter Additional Health Concerns Assessment Noted Time PHQ-9 Depression Total Score: 2 08/01/19 9:15 PM CDT documented as of this encounter Care Teams Career Development Specialist Relationship Specialty Start Date End Date Eldon Koehler MD PCP - General 10/06/07 documented as of this encounter
--- OUTSIDE RECORDS SUMMARY | 2024-05-22 16:59 | XMS_ITS | Encounter Summary ---
Author Organization [facility] Address 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 More than 4 times per year 04/30/2019 Do you belong to any clubs o r organizations such as pentecostalism groups, unions, fraternal or athletic groups, or [...] COVID-19? 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 documented as of this encounter Last Filed Vital Signs Vital Sign Reading Time Taken Comments Blood Pressure 120/80 04/10/2021 10:01 AM CAR SALTER Pulse 98 04/10/2021 10:01 AM CAR SALTER Temperature 37.1 ??C (98.7 ??F) 04/10/2021 10:[address] Respiratory Rate - - Oxygen Saturation 97% 04/10/2021 10:01 AM CAR SALTER Inhaled Oxygen Concentration - - Weight 123.8 kg (273 lb) 04/10/2021 10:01 AM CAR SALTER Height 167.6 cm (5' 6 ) 04/10/2021 10:01 AM CAR SALTER Body Mass Index 44.06 04/10/2021 10:01 AM CAR SALTER documented in this encounter Progress Notes * Eldon Koehler MD - 04/10/2021 10:07 AM CST Subjective: Winifred Rodriguez is a 70 y.o. female. hpi Anxiety same On cpap Wt issues ongoing Chol on med Med reviewed Recent lab [...] to Visit Medication Sig Dispense Refill ??? metoprolol succinate (TOPROL XL) 25 mg [...] needed for Cough. 30 Capsule 0 ??? predniSONE (DELTASONE) 10 mg tablet 4 x 2 days, 3 x 2 days, 2 x 2 days, 1 x 2 days 20 Tablet 0 ??? fluticasone furoate-vilanteroL (Breo Ellipta) 200-25 mcg/dose Disk with Device Take 1 Puff by inhalation daily. 1 Each 11 ??? albuterol sulfate 90 mcg/Actuation inhaler Take 2 Puffs by inhalation 4 times daily as needed for Shortness of Breath. 8.5 Gram 2 ??? rOPINIRole (REQUIP) 2 mg Tablet Take 1 Tablet (2 mg) by mouth daily at bedtime. 90 Tablet 3 ??? [DISCONTINUED] rOPINIRole (REQUIP) 2 mg Tablet TAKE 1 TABLET BY MOUTH DAILY AT BEDTIME 90 Tablet 3 ??? OTHER mvi gummies [...] CATARACT REMOVAL Bilateral 08/2017 ??? HX CHOLECYSTECTOMY 1997 ??? HX COLONOSCOPY ??? HX DIAGNOSTIC LAPAROSCOPY ??? HX KNEE REPLACEMENT Bilateral 2014, 2016 ??? HX ROTATOR CUFF REPAIR Right 06/12/2016 ??? HX SKIN BIOPSY ??? MD COLONOSCOPY FLX DX W/COLLJ SPEC WHEN PFRMD N/A 03/15/2015 COLONOSCOPY performed by Osei Sutton MD at [facility] ??? MD COLONOSCOPY FLX DX W/COLLJ SPEC WHEN PFRMD N/A 08/08/2020 COLONOSCOPY performed by Osei Sutton MD at [facility] ??? MD ESOPHAGOGASTRODUODENOSCOPY TRANSORAL DIAGNOSTIC N/A 01/21/2017 ESOPHAGOGASTRODUODENOSCOPY performed by Elizabeth Mcbride MD at [facility] OR ??? MD LAP, ORLY RESTRICT PROC, LONGITUDINAL GASTRECTOMY N/A 01/21/2017 GASTRECTOMY LONGITUDINAL LAPAROSCOPIC performed by Elizabeth Mcbride MD at [facility] OR Family History Problem Relation Name Age of Onset ??? Colon Cancer Mother ??? Stroke Father ??? Stroke Maternal Grandfather ??? Stroke Paternal Grandfather ??? Kidney Disease Brother HIERO ??? Healthy Brother SHEREEN ??? Healthy Brother BEENA Social History Tobacco Use ??? Smoking status: Never Smoker ??? Smokeless tobacco: Never Used Substance Use Topics ??? Alcohol use: Never Exam/Objective: BP 120/80 Pulse 98 Temp 98.7 ??F (37.1 ??C) (Oral) Ht 5' 6 (1.676 m) Wt 123.8 kg (273 lb) SpO2 97% BMI 44.06 kg/m?? General appearance: over wt nad Head: Normocephalic, without obvious abnormality, atraumatic Eyes: conjunctivae/corneas clear. PERRLA, EOM's intact. Lids appear normal. Ears: normal TM's (shiny without retraction) and external ear canals AU. No apparent lesions or masses. Hearing grossly normal. Nose:mask. Throat: mask Neck: supple, symmetrical, trachea midline, no lymphadenopathy, and thyroid: not enlarged, symmetric, no tenderness/mass/nodules. Lungs: breath sounds equal, clear to auscultation bilaterally, no retractions, no stridor, normal respiratory effort Heart: regular rate and rhythm, S1, S2 normal Abdomen: soft, non-tender. Bowel sounds normal. No masses, no organomegaly. Active bowel sounds. Skin: Skin color, texture, turgor normal. Lymphatics: No focal or generalized lymphadenopathy. Neck Ext no edema Mood stable Assessment and Plan: ASSESSMENT: ICD-10-CM ICD-9-CM 1. Prediabetes R73.03 790.29 HEMOGLOBIN A1C 2. Recurrent major depressive disorder, in partial remission F33.41 296.35 3. Other specified hypothyroidism E03.8 244.8 4. Other specified anxiety disorders F41.8 300.09 5. Vitamin D deficiency E55.9 268.9 VITAMIN D 25 HYDROXY 6. Vitamin B12 deficiency (non anemic) E53.8 266.2 CBC WITH DIFFERENTIAL VITAMIN B12 LEVEL 7. Other hyperlipidemia E78.49 272.4 COMPREHENSIVE METABOLIC PANEL LIPID PANEL TSH 8. RLS (restless legs syndrome) G25.81 333.94 9. Osteoarthritis of lumbar spine, unspecified spinal osteoarthritis complication status M47.816 721.3 predm add Trulicity depn cont med Thyroid cont med Anxiety cont med rls cont med reviewed djd monitor Chol add zetia TOBACCO COUNSELING She is not a tobacco user. Health Maintenance Topic Date Due ??? BREAST CANCER SCREENING 11/03/2020 ??? PNEUMOCOCCAL VACCINE 65+ YEARS (1 of 1 - PPSV23) 04/13/2023 ??? Colorectal Cancer Screening 08/08/2025 ??? OSTEOPOROSIS SCREENING Completed ??? ZOSTER VACCINE Completed ??? INFLUENZA VACCINE Completed ??? COVID-19 Vaccine Completed Due mammo Flu vac PLAN: Orders Placed This Encounter ??? INFLUENZA VACCINE HIGH DOSE QUAD 65+ PF IM ??? CBC WITH DIFFERENTIAL ??? COMPREHENSIVE METABOLIC PANEL ??? HEMOGLOBIN A1C ??? LIPID PANEL ??? TSH ??? VITAMIN D 25 HYDROXY (Chemistry) ??? VITAMIN B12 LEVEL (Chemistry) ??? rOPINIRole (REQUIP) 2 mg Tablet ??? ezetimibe (Zetia) 10 mg tablet ??? dulaglutide (TRULICITY) 0.75 mg/0.5 mL injection Appropriate medications prescribed Appropriate patient instructions provided Follow-up as I have indicated. Medications and options explained to include common side effects. Understanding of medications, course, diagnosis, and expectations were expressed by patient/guardian. SALTER documented in this encounter Plan of Treatment Upcoming Encounters Date Type Department Care Team (Late st Contact Info) Description 07/27/2024 9:40 AM CDT Office Visit [facility] Primary Care [facility] [address] [place] [address] [address] [place] [address] Eldon Koehler MD [address] [facility] [address] [place] [address] documented as of this encounter Procedures Procedure Name Priority Date/Time Associated Diagnosis Comments CBC WITH DIFFERENTIAL Routine 08/01/2021 8:19 AM CDT Vitamin B12 deficiency (non anemic) VITAMIN D 25 HYDROXY Routine 08/01/2021 8:19 AM CDT Vitamin D deficiency TSH Routine 08/01/2021 8:19 AM CDT Other hyperlipidemia HEMOGLOBIN A1C Routine 08/01/2021 8:19 AM CDT Prediabetes VITAMIN B12 LEVEL Routine 08/01/2021 8:1 9 AM CDT Vitamin B12 deficiency (non anemic) LIPID PANEL Routine 08/01/2021 8:19 AM CDT Other hyperlipidemia COMPREHENSIVE METABOLIC PANEL Routine 08/01/2021 8:19 AM CDT Other hyperlipidemia documented in this encounter Results * VITAMIN B12 LEVEL (08/01/2021 8:19 AM CDT) VITAMIN B12 383 200 - 1100 pg/mL [facility] Comment: Please Note: Although the reference range for vitamin B12 is 200-1100 pg/mL, it has been reported that between 5 and 10% of patients with values between 200 and 400 pg/mL may experience neuropsychiatric and hematologic abnormalities due to occult B12 deficiency; less than 1% of patients with values above 400 pg/mL will have symptoms. Test Performed at: [facility] [address] [place], [place] ??[phone] Brent Lieberman D.O., MPH Blood 08/01/2021 8:19 AM CDT 08/01/2021 8:22 AM CDT Eldon Koehler MD CHEMISTRY ORDERABLES Performing Organization Address [facility] Co de Phone Number [facility] [address] [place] [address] * VITAMIN D 25 HYDROXY (08/01/2021 8:19 AM CDT) VITAMIN D, 25 OH, TOTAL 47 30 - 100 ng/mL [facility] Comment: Vitamin D Status ? 25-OH Vitamin D: Deficiency: ?<20 ng/mL Insufficiency: ? 20 - 29 ng/mL Optimal: ? > or = 30 ng/mL For 25-OH Vitamin D testing on patients on D2-supplementation and patients for whom quantitation of D2 and D3 fractions is required, the QuestAssureD(TM) 25-OH VIT D, (D2,D3), LC/MS/MS is recommended: order code 25456 (patients >2yrs). See Note 1 Note 1 For additional information, please refer to http://education.WorldStores.Join The Players/faq/KSO172 (This link is being provided for informational/ educational purposes only.) Test Performed at: [facility] [address] [place] ??[address] Brent Lieberman D.O., MPH Blood 08/01/2021 8:19 AM CDT 08/01/2021 8:22 AM CDT Eldon Koehler MD CHEMISTRY ORDERABLES Performing Organization Address City/State/[facility] Co de Phone Number [facility] [address] [place] [address] * TSH (08/01/2021 8:19 AM CDT) [facility] TSH 2.07 0.40 - 4.50 mIU/L [facility] Comment: Test Performed at: [facility] [address] [place], [place] ??[phone] Brent Lieberman D.O., MPH Blood 08/01/2021 8:19 AM CDT 08/01/2021 8:22 AM CDT Eldon Koehler MD CHEMISTRY ORDERABLES Performing Organization Address [facility] Co de Phone Number [facility] [address] [place] [address] * (ABNORMAL) LIPID PANEL (08/01/2021 8:19 AM CDT) [facility] CHOLESTEROL 133 <200 mg/dL [facility] HDL 48(L) > OR = 50 mg/dL [facility] TRIGLYCERIDE 111 <150 mg/dL [facility] LDL CALCULATED 66 mg/dL (calc) [facility] Comment: Reference range: <100 Desirable range <100 mg/dL for primary prevention; ?? <70 mg/dL for patients with CHD or diabetic patients with > or = 2 CHD risk factors. LDL-C is now calculated using the Christopher-Марина calculation, which is a validated novel method providing better accuracy than the Friedewald equation in the estimation of LDL-C. Christopher KAISER et al. ERLIN. 2013;310(19): 8109-4412 (http://education.WorldStores.Join The Players/faq/MOK661) CHOL/HDL RATIO 2.8 <5.0 (calc) [facility] TOTAL NON-HDL CHOL(LDL+VLDL) 85 <130 mg/dL (calc) [facility] Comment: For patients with diabetes plus 1 major ASCVD risk factor, treating to a non-HDL-C goal of <100 mg/dL (LDL-C of <70 mg/dL) is considered a therapeutic option. Test Performed at: [place] ??[address] Brent Lieberman D.O., MPH Blood 08/01/2021 8:19 AM CDT 08/01/2021 8:22 AM CDT Eldon Koehler MD CHEMISTRY ORDERABLES Performing Organization Address [facility] de Phone Number [facility] [address] [place] [address] * (ABNORMAL) HEMOGLOBIN A1C (08/01/2021 8:19 AM CDT) HEMOGLOBIN A1C 5.7(H) <5.7 % of total Hgb [facility] Comment: For someone without known diabetes, a [...] A1c for diagnosis of diabetes for children. FASTING:YES FASTING: YES Test Performed at: [facility] [address] [place] ??[phone] [facility] Blood 08/01/2021 8:19 AM CDT 08/01/2021 8:22 AM CDT Eldon Koehler MD CHEMISTRY ORDERABLES Performing Organization Address [facility] de Phone Number [facility] [address] [place] [address] * (ABNORMAL) COMPREHENSIVE METABOLIC PANEL (08/01/2021 8:19 AM CDT) GLUCOSE 102(H) 65 - 99 mg/dL [facility] Comment: ? Fasting reference interval For someone without known diabetes, a glucose value between 100 and 125 mg/dL is consistent with prediabetes and should be confirmed with a follow-up test. BUN 17 7 - 25 mg/dL [facility] CREATININE 1.07(H) 0.50 - 0.99 mg/dL [facility] Comment: For patients >49 years of age, the reference limit for Creatinine is approximately 13% higher for people identified as -[place]. GFR 53(L) > OR = 60 mL/min/1. 73m2 [facility] GFR, 61 > OR = 60 mL/min/1. 73m2 [facility] BUN/CREAT RATIO 16 6 - 22 (calc) [facility] SODIUM 141 135 - 146 mmol/L [facility] POTASSIUM 4.1 3.5 - 5.3 mmol/L [facility] CHLORIDE 104 98 - 110 mmol/L [facility] CO2 27 20 - 32 mmol/L [facility] CALCIUM 9.2 8.6 - 10.4 mg/dL [facility] TOTAL PROTEIN 6.7 6.1 - 8.1 g/dL [facility] ALBUMIN 4.1 3.6 - 5.1 g/dL [facility] GLOBULIN 2.6 1.9 - 3.7 g/dL (calc) [facility] ALBUMIN/GLOBULIN RATIO 1.6 1.0 - 2.5 (calc) [facility] BILIRUBIN TOTAL 0.7 0.2 - 1.2 mg/dL [facility] ALKALINE PHOSPHATASE 143 37 - 153 U/L [facility] AST 24 10 - 35 U/L [facility] ALT 26 6 - 29 U/L [facility] Comment: Test Performed at: [facility] ??[phone] Brent Lieberman D.O., MPH Blood 08/01/2021 8:19 AM CDT 08/01/2021 8:22 AM CDT Eldon Koehler MD CHEMISTRY ORDERABLES [facility] [address] [place] [address] * (ABNORMAL) CBC WITH DIFFERENTIAL (08/01/2021 8:19 AM CDT) WBC 9.5 3.8 - 10.8 Thousand/u L [facility] RBC 4.59 3.80 - 5.10 Million/uL [facility] HEMOGLOBIN 12.8 11.7 - 15.5 g/dL [facility] HEMATOCRIT 40.5 35.0 - 45.0 % [facility] MCV 88.2 80.0 - 100.0 fL [facility] MCH 27.9 27.0 - 33.0 pg [facility] MCHC 31.6(L) 32.0 - 36.0 g/dL [facility] RDW 13.1 11.0 - 15.0 % [facility] PLATELETS 332 140 - 400 Thousand/u L [facility] MPV 11.3 7.5 - 12.5 fL [facility] NEUTROPHIL ABSOLUTE 6,679 1,500 - 7,800 cells/uL [facility] LYMPHOCYTE ABSOLUTE 1,767 850 - 3,900 cells/uL [facility] MONOCYTE ABSOLUTE 732 200 - 950 cells/uL [facility] EOSINOPHIL ABSOLUTE 276 15 - 500 cells/uL [facility] BASOPHILS ABSOLUTE 48 0 - 200 cells/uL [facility] NEUTROPHIL 70.3 % [facility] LYMPHOCYTES 18.6 % [facility] MONOCYTE 7.7 % [facility] EOSINOPHILS 2.9 % [facility] BASOPHILS 0.5 % [facility] Comment: Test Performed at: [facility] ??[phone] Brent Lieberman D.O., MPH Blood 08/01/2021 8:19 AM CDT 08/01/2021 8:22 AM CDT Eldon Koehler MD HEMATOLOGY ORDERABLE S [facility] [address] [place] [address] documented in this encounter Visit Diagnoses Diagnosis Prediabetes- Primary Other abnormal glucose Recurrent major depressive disorder, in partial remission Other specified hypothyroidism Other specified anxiety disorders Vitamin D deficiency Unspecified vitamin D deficiency Vitamin B12 deficiency (non anemic) Other B-complex deficiencies Other hyperlipidemia RLS (restless legs syndrome) Restless legs syndrome (RLS) Osteoarthritis of lumbar spine, unspecified spinal osteoarthritis complication status documented in this encounter Additional Health Concerns Assessment Noted Time PHQ-9 Depression Total Score: 2 08/01/19 21 9:15 PM CDT documented as of this encounter Care Teams Rn Urgent Care Relationship Specialty Start Date End Date Eldon Koehler MD PCP - General 10/06/07 documented as of this encounter
--- OUTSIDE RECORDS SUMMARY | 2024-05-22 16:59 | XMS_ITS | Encounter Summary ---
Author Organization [facility] Address [address] [place] [address] Care Team Providers Care Cotton Picker Operator Name Role Phone Eldon Koehler MD Primary Care Provider [phone] Reason for Visit * Reason Comments Cough Encounter Details Date Type Department Care Team (Late st Contact Info) Description 12/05/2020 10:30 AM CDT Office Visit [facility] Internal Medicine [address] [address] Eldon Koehler MD [address] [place] [address] Mild intermittent asthma without complication (Primary Dx); Fibromyalgia; Other specified hypothyroidism; Recurrent major depressive disorder, in partial remission; Prediabetes; Other specified anxiety disorders; Other hyperlipidemia; Acute bronchitis due to other specified organisms Social History Tobacco Use Types Packs/Day Years [...] week 04/30/2019 How often do you attend [facility] or uatsdin services? More than 4 times per year 04/30/2019 Do you belong to any clubs o r organizations such as buddhism groups, unions, fraternal or athletic groups, or [...] Sign Reading Time Taken Comments Blood Pressure 132/78 12/05/2020 10:32 AM CDT Pulse - - Temperature 37.2 ??C (98.9 ??F) 12/05/2020 10:32 AM C DT Respiratory Rate - - Oxygen Saturation - - Inhaled Oxygen Concentration - - Weight 122.5 kg (270 lb) 12/05/2020 10:32 AM CDT Height 167.6 cm (5' 6 ) 12/05/2020 10:32 AM CDT Body Mass Index 43.58 12/05/2020 10:32 AM CDT documented in this encounter Progress Notes * Eldon Koehler MD - 12/05/2020 10:48 AM CDT Subjective: Winifred Rodriguez is a 70 y.o. female. hpi Cough x 1 week similar to previous Anxiety up and down Wt down slight On cpap Med reviewed Lab reviewed Ongoing stress Patient Active Problem List Diagnosis Date Noted [...] to Visit Medication Sig Dispense Refill ??? buPROPion HCL (WELLBUTRIN SR) 150 mg Sustained Release 12 hour tablet Take 1 Tablet (150 mg) bymouth daily. 90 Tablet 3 ??? OTHER mvi gummies for women over 50 Calcium with D3 gummies B12 gummies 1500mcg ??? rOPINIRole (REQUIP) 0.5 mg tablet Take 0.5 mg by mouth late in the day. ??? pregabalin (LYRICA) 50 mg Capsule Take 1 Capsule (50 mg) by mouth every 12 hours. 180 Capsule 2 ??? DULoxetine (Cymbalta) 60 mg Capsule, Delayed Release(E.C.) Take 1 Capsule (60 mg) by mouth daily. 90 Capsule 3 ??? cyclobenzaprine (FLEXERIL) 10 mg tablet Take 1 Tablet (10 mg) by mouth daily at bedtime. 30 Tablet 1 ??? metoprolol succinate (Toprol XL) 25 mg Extended Release 24 hour tablet Take 1 Tablet (25 mg) bymouth daily. 90 Tablet 3 ??? atorvastatin (LIPITOR) 20 mg tablet TAKE 1 TABLET BY MOUTH LATE IN THE DAY 90 Tablet 3 ??? omeprazole (PriLOSEC) 20 mg Capsule, Delayed Release(E.C.) TAKE 1 CAPSULE BY MOUTH DAILY 90 Capsule 3 ??? LEVOTHYROXINE 150 mcg tablet TAKE 1 TABLET BY MOUTH DAILY 90 Tablet 3 ??? rOPINIRole (REQUIP) 2 mg Tablet TAKE 1 TABLET BY MOUTH DAILY AT BEDTIME 90 Tablet 3 ??? celecoxib (CeleBREX) 200 mg capsule TAKE 1 CAPSULE BY MOUTH TWO TIMES DAILY 180 Capsule 3 ??? [DISCONTINUED] azithromycin (Zithromax Z-Ollie) 250 mg tablet Take 2 tablets by mouth the first day and 1 tablet days 2-5. 6 Tablet 0 ??? albuterol HFA 90 mcg inhaler Take 2 Puffs by inhalation 4 times daily as needed for Shortness of Breath. 8.5 Gram 2 No current facility-administered medications on file prior [...] Right 06/12/2016 ??? HX SKIN BIOPSY ??? FL COLONOSCOPY FLX DX W/COLLJ SPEC WHEN PFRMD N/A 03/15/2015 COLONOSCOPY performed by Osei Sutton MD at [facility] ??? FL COLONOSCOPY FLX DX W/COLLJ SPEC WHEN PFRMD N/A 08/08/2020 COLONOSCOPY performed by Osie Sutton MD at [facility] ??? FL ESOPHAGOGASTRODUODENOSCOPY TRANSORAL DIAGNOSTIC N/A 01/21/2017 ESOPHAGOGASTRODUODENOSCOPY performed by Elizabeth Mcbride MD at [facility] OR ??? FL LAP, ORLY RESTRICT PROC, LONGITUDINAL GASTRECTOMY N/A 01/21/2017 GASTRECTOMY LONGITUDINAL LAPAROSCOPIC performed by Elizabeth Mcbride MD at [facility] OR Family History Problem Relation Name Age of Onset ??? Colon Cancer Mother ??? Stroke Father ??? Stroke Maternal Grandfather ??? Stroke Paternal Grandfather ??? Kidney Disease Brother HIERO ??? Healthy Brother SHEREEN ??? Healthy Brother BEENA Social History Tobacco Use ??? Smoking status: Never Smoker ??? Smokeless tobacco: Never Used Substance Use Topics ??? Alcohol use: Never Exam/Objective: BP 132/78 Temp 98.9 ??F (37.2 ??C) (Oral) Ht 5' 6 (1.676 m) Wt 122.5 kg (270 lb) BMI 43.58kg/m?? General appearance: over wt nad Head: Normocephalic, without obvious abnormality, atraumatic Eyes: conjunctivae/corneas clear. PERRLA, EOM's intact. Lids appear normal. Ears: normal TM's (shiny without retraction) and external ear canals AU. No apparent lesions or masses. Hearing grossly normal. Nose: mask Throatmask Neck: supple, symmetrical, trachea midline, no lymphadenopathy, [...] or generalized lymphadenopathy. Neck Ext no edema ,Diabetic foot exam: Visual: no ulceration and no callous formation Sensory:slight dec sensation ends feet Pulses: normal bilaterally Mood stable Assessment and Plan: ASSESSMENT: ICD-10-CM ICD-9-CM 1. Mild intermittent asthma without complication J45.20 493.90 CBC WITH DIFFERENTIAL 2. Fibromyalgia M79.7 729.1 3. Other specified hypothyroidism E03.8 244.8 4. Recurrent major depressive disorder, in partial remission F33.41 296.35 5. Prediabetes R73.03 790.29 HEMOGLOBIN A1C 6. Other specified anxiety disorders F41.8 300.09 7. Other hyperlipidemia E78.49 272.4 COMPREHENSIVE METABOLIC PANEL LIPID PANEL TSH 8. Acute bronchitis due to other specified organisms J20.8 466.0 Asthma Has albuterol discussed add other rx bronchitis Advise covid test Fibro cont med Thyroid cont med dpen cont med, ongoing stress issues predm diet advised Anxiety reviewed Col cont med Fall Risk She has had two or more falls in the past year. Tobacco Intervention She is not a tobacco user. Depression Screen Positive: PHQ-2 score >= 3 or PHQ-9 score >= 9 PHQ-2 Total: 2 (07/31/2020 9:15 PM) PHQ-9 Total: 7 (07/31/2020 9:15 PM) DEPRESSION PLAN OF CARE Her antidepressant medication was reviewed Blood Pressure BP Readings from Last 3 Encounters: 12/05/20 132/78 08/08/20 102/74 08/01/20 138/80 Normal BMI Range: 18 & older: > or = 18.5 and < 25 Body mass index is 43.58 kg/m??. Abnormal high BMI: Patient counseled on lifestyle modifications including weight loss and daily exercise. . Health Maintenance Topic Date Due ??? PNEUMOCOCCAL VACCINE 65+ YEARS (1 of 2 - PPSV23) 06/08/2018 ??? BREAST CANCER SCREENING 11/03/2020 ??? INFLUENZA VACCINE (1) 12/10/2020 ??? Annual Wellness Visit-Medicare 08/02/2021 ??? Colorectal Cancer Screening 08/08/2025 ??? OSTEOPOROSIS SCREENING Completed ??? ZOSTER VACCINE Completed ??? COVID-19 Vaccine Completed Due mammo tdap advised PLAN: Orders Placed This Encounter ??? CBC WITH DIFFERENTIAL ??? COMPREHENSIVE METABOLIC PANEL ??? HEMOGLOBIN A1C ??? LIPID PANEL ??? TSH ??? azithromycin (Zithromax Z-Ollie) 250 mg tablet Appropriate medications prescribed Appropriate patient instructions provided Follow-up as I have indicated. Medications and options explained to include common side effects. Understanding of medications, course, diagnosis, and expectations were expressed by patient/guardian. documented in this encounter Plan of Treatment Upcoming Encounters Date Type Department Care Team (Late st Contact Info) Description 07/27/2024 9:40 AM CDT Office Visit [facility] Primary Care [facility] [address] [place] [address] [address] [place] [phone] Eldon Koehler MD [address] [facility] [address] [place] [address] documented as of this encounter Procedures Procedure Name Priority Date/Time Associated Diagnosis Comments CBC WITH DIFFERENTIAL Routine 04/03/2021 7:54 AM DIRECTOR OF CARDIOLOGY SERVICE LINE Mild intermittent asthma without complication TSH Routine 04/03/2021 7:54 AM DIRECTOR OF CARDIOLOGY SERVICE LINE Other hyperlipidemia HEMOGLOBIN A1C Routine 04/03/2021 7:54 AM DIRECTOR OF CARDIOLOGY SERVICE LINE Prediabetes LIPID PANEL Routine 04/03/2021 7:54 AM DIRECTOR OF CARDIOLOGY SERVICE LINE Other hyperlipidemia COMPREHENSIVE METABOLIC PANEL Routine 04/03/2021 7:54 AM DIRECTOR OF CARDIOLOGY SERVICE LINE Other hyperlipidemia documented in this encounter Results * TSH (04/03/2021 7:54 AM DIRECTOR OF CARDIOLOGY SERVICE LINE) Pathologist [facility] TSH 1.20 0.40 - 4.50 mIU/L [facility] Comment: Test Performed at: [facility] ??[phone] Brent Lieberman D.O., MPH Blood 04/03/2021 7:54 AM DIRECTOR OF CARDIOLOGY SERVICE LINE 04/03/2021 7:57 AM DIRECTOR OF CARDIOLOGY SERVICE LINE Eldon Koehler MD CHEMISTRY ORDERABLES [facility] [address] [place] [address] * (ABNORMAL) LIPID PANEL (04/03/2021 7:54 AM DIRECTOR OF CARDIOLOGY SERVICE LINE) Pathologist [facility] CHOLESTEROL 180 <200 mg/dL [facility] HDL 59 > OR = 50 mg/dL [facility] TRIGLYCERIDE 102 <150 mg/dL [facility] LDL CALCULATED 101(H) mg/dL (calc) [facility] Comment: Reference range: <100 Desirable range <100 mg/dL for primary prevention; ?? <70 mg/dL for patients with CHD or diabetic patients with > or = 2 CHD risk factors. LDL-C is now calculated using the Bruce calculation, which is a validated novel method providing better accuracy than the Friedewald equation in the estimation of LDL-C. Christopher SS et al. ERLIN. 2013;310(19): 9457-7185 (http://education.WORKING OUT WORKS/faq/LDV316) CHOL/HDL RATIO 3.1 <5.0 (calc) [facility] TOTAL NON-HDL CHOL(LDL+VLDL) 121 <130 mg/dL (calc) [facility] Comment: For patients with diabetes plus 1 major ASCVD risk factor, treating to a non-HDL-C goal of <100 mg/dL (LDL-C of <70 mg/dL) is considered a therapeutic option. Test Performed at: [facility] [address] [place] ??[phone] Brent Lieberman D.O., MPH Blood 04/03/2021 7:54 AM DIRECTOR OF CARDIOLOGY SERVICE LINE 04/03/2021 7:57 AM DIRECTOR OF CARDIOLOGY SERVICE LINE Eldon Koehler MD CHEMISTRY ORDERABLES [facility] [address] [place] [address] * (ABNORMAL) HEMOGLOBIN A1C (04/03/2021 7:54 AM DIRECTOR OF CARDIOLOGY SERVICE LINE) HEMOGLOBIN A1C 5.9(H) <5.7 % of total Hgb [facility] Comment: FASTING:YES FASTING: YES Test Performed at: [facility] [address] [place] ??[phone] Leidy-Sayra Thi Vo Blood 04/03/2021 7:54 AM DIRECTOR OF CARDIOLOGY SERVICE LINE 04/03/2021 7:57 AM DIRECTOR OF CARDIOLOGY SERVICE LINE Eldon Koehler MD CHEMISTRY ORDERABLES Performing Organization Address City/[facility]/ZIP Co de Phone Number [facility] [address] [place] [address] * COMPREHENSIVE METABOLIC PANEL (04/03/2021 7:54 AM DIRECTOR OF CARDIOLOGY SERVICE LINE) GLUCOSE 93 65 - 99 mg/dL [facility] Comment: ? Fasting reference interval BUN 15 7 - 25 mg/dL [facility] CREATININE 0.82 0.50 - 0.99 mg/dL [facility] Comment: For patients >49 years of age, the reference limit for Creatinine is approximately 13% higher for people identified as -Norwegian. GFR 74 > OR = 60 mL/min/1 .73m2 [facility] GFR, 85 > OR = 60 mL/min/1 .73m2 [facility] BUN/CREAT RATIO NOT APPLICABLE 6 - 22 (calc) [facility] SODIUM 142 135 - 146 mmol/L [facility] POTASSIUM 4.2 3.5 - 5.3 mmol/L [facility] CHLORIDE 105 98 - 110 mmol/L [facility] CO2 30 20 - 32 mmol/L [facility] CALCIUM 9.0 8.6 - 10.4 mg/dL [facility] TOTAL PROTEIN 6.4 6.1 - 8.1 g/dL [facility] ALBUMIN 3.8 3.6 - 5.1 g/dL [facility] GLOBULIN 2.6 1.9 - 3.7 g/dL (calc) [facility] ALBUMIN/GLOBULIN RATIO 1.5 1.0 - 2.5 (calc) [facility] BILIRUBIN TOTAL 0.6 0.2 - 1.2 mg/dL [facility] ALKALINE PHOSPHATASE 142 37 - 153 U/L [facility] AST 15 10 - 35 U/L [facility] ALT 14 6 - 29 U/L [facility] Comment: Test Performed at: [facility] [place] ??[phone] Brent Lieberman D.O., MPH Blood 04/03/2021 7:54 AM DIRECTOR OF CARDIOLOGY SERVICE LINE 04/03/2021 7:57 AM DIRECTOR OF CARDIOLOGY SERVICE LINE Eldon Koehler MD CHEMISTRY ORDERABLES Performing Organization Address [facility] Co de Phone Number [facility] [address] [place] [address] * (ABNORMAL) CBC WITH DIFFERENTIAL (04/03/2021 7:54 AM DIRECTOR OF CARDIOLOGY SERVICE LINE) WBC 7.6 3.8 - 10.8 Thousand/u L [facility] RBC 4.40 3.80 - 5.10 Million/uL [facility] HEMOGLOBIN 12.1 11.7 - 15.5 g/dL [facility] HEMATOCRIT 38.7 35.0 - 45.0 % [facility] MCV 88.0 80.0 - 100.0 fL [facility] MCH 27.5 27.0 - 33.0 pg [facility] MCHC 31.3(L) 32.0 - 36.0 g/dL [facility] RDW 13.4 11.0 - 15.0 % [facility] PLATELETS 336 140 - 400 Thousand/u L [facility] MPV 11.1 7.5 - 12.5 fL [facility] NEUTROPHIL ABSOLUTE 4,568 1,500 - 7,800 cells/uL [facility] LYMPHOCYTE ABSOLUTE 2,014 850 - 3,900 cells/uL [facility] MONOCYTE ABSOLUTE 661 200 - 950 cells/uL [facility] EOSINOPHIL ABSOLUTE 281 15 - 500 cells/uL [facility] BASOPHILS ABSOLUTE 76 0 - 200 cells/uL [facility] NEUTROPHIL 60.1 % [facility] LYMPHOCYTES 26.5 % [facility] MONOCYTE 8.7 % [facility] EOSINOPHILS 3.7 % [facility] BASOPHILS 1.0 % [facility] Comment: Test Performed at: [facility] ??[phone] Brent Lieberman D.O., MPH Blood 04/03/2021 7:54 AM DIRECTOR OF CARDIOLOGY SERVICE LINE 04/03/2021 7:57 AM DIRECTOR OF CARDIOLOGY SERVICE LINE Eldon Koehler MD HEMATOLOGY ORDERABLE S [facility] [address] [place] [address] documented in this encounter Visit Diagnoses Diagnosis Mild intermittent asthma without complication- Primary Unspecified asthma Fibromyalgia Mylagia and myositis, unspecified Other specified hypothyroidism Recurrent major depressive disorder, in partial remission Prediabetes Other abnormal glucose Other specified anxiety disorders Other hyperlipidemia Acute bronchitis due to other specified organisms documented in this encounter Additional Health Concerns Assessment Noted Time PHQ-9 Depression Total Score: 2 08/01/19 21 9:15 PM CDT documented as of this encounter Care Teams Cotton Picker Operator Relationship Specialty Start Date End Date Eldon Koehler MD PCP - General 10/06/07 documented as of this encounter
--- OUTSIDE RECORDS SUMMARY | 2024-05-22 16:59 | XMS_ITS | Encounter Summary ---
Author Organization [employer] Address [address] [place] [address] Care Team Providers Care Retail Marketing Specialist Name Role Phone Eldon Koehler MD Primary Care Provider [phone] Reason for Visit * Reason Onset Date Comments Care Connect 10/03/2020 Encounter Details Date Type Department Care Team (Late st Contact Info) Description 10/03/2020 [facility] [address] [address] Batsheva Chang, RN Care Connect Social History Tobacco Use Types Packs/Day Years [...] any clubs o r organizations such as shinto groups, unions, fraternal or athletic groups, or [...] encounter Miscellaneous Notes * Telephone Encounter - Batsheva Chang RN - 10/03/2020 9:17 AM CDT [employer] Interaction Note: Service Line: [employer] Called patient regarding CareConnect survey response. Patient enrolled in General Medical program. Patient reported reported new health concern. Patient denies change to baseline. Patient states she fell going up the steps. This occurred on Friday. She fell against the wall, hitting her head. She states she has an egg on the side of her head and broke her glasses. She felt out of it but denies a LOC. Denies feeling dizzy or light headed before falling. She states her PCPis aware of her falls, her PCP did a CT of her head last year. She takes a baby aspirin daily. No pain to arms, legs. No nausea or vomiting. She denies any visual changes, headache or unilateral weakness. She went to bed after the fall on Friday and has been fine since. Patient is speaking in clearand complete sentences. Breathing is even and unlabored. No distress noted. Alert and oriented. Last CP was 10/2119. Patient reports this was ordered due to falls that were occurring. She states she falls about once a month, she has had 2 falls this month. She also reports having tremors in her hands off an on for several months. Offered to make her a PCP appt, she declines and states she will call and discuss the tremors she is having and her recent falls. Discussed plan of care with WOOL BRUSHER: Leyla Offered a second time to make a PCP appt, patient politely declines and states she would rather call as she has to make appointments around her daughters schedule. Plan: Call your PCP's office today to schedule an appointment. Advised patient to call for new or worsening symptoms. Patient is agreeable and verbalizes an understanding. Will route this note to PCP. Visit was completed by: Phone documented in this encounter Plan of Treatment Upcoming Encounters Date Type Department Care Team (Late st Contact Info) Description 07/27/2024 9:40 AM CDT Office Visit [facility] Primary Care [place] [address] [place] [phone] Eldon Koehler MD [address] [place] [phone] documented as of this encounter Visit Diagnoses Not on filedocumented in this encounter Additional Health Concerns Assessment Noted Time PHQ-9 Depression Total Score: 2 08/01/19 21 9:15 PM CDT documented as of this encounter Care Teams Retail Marketing Specialist Relationship Specialty Start Date End Date Eldon Koehler MD PCP - General 10/06/07 documented as of this encounter
--- OUTSIDE RECORDS SUMMARY | 2024-05-22 16:59 | XMS_ITS | Encounter Summary ---
Author Organization [facility] Address [address] [place] [address] Care Team Providers Care Pattern Hand Name Role Phone Eldon Koehler MD Primary Care Provider [phone] Encounter Details Date Type Department Care Team (Late st Contact Info) Description 01/31/[address] [facility] Internal Medicine [address] [address] Eldon Koehler MD [address] [place] [address] Social History Tobacco Use Types Packs/Day [...] any clubs o r organizations such as rastafarian groups, unions, fraternal or athletic groups, or [...] 9:40 AM CDT Office Visit [facility] Care [place] [address] [place] [address] Eldon Koehler MD [address] [place] [address] [address] documented as of this encounter Visit Diagnoses Not on filedocumented in this encounter Additional Health Concerns Assessment Noted Time PHQ-9 Depression Total Score: 2 08/01/19 21 9:15 PM CDT documented as of this encounter Care Teams Pattern Hand Relationship Specialty Start Date End Date Eldon Koehler MD PCP - General 10/06/07 documented as of this encounter
--- OUTSIDE RECORDS SUMMARY | 2024-05-22 16:59 | XMS_ITS | Encounter Summary ---
Author Organization [facility] Address [address] [place] [address] Care Team Providers Care Product Tester Fiberglass Name Role Phone Eldon Koehler MD Primary Care Provider [phone] Reason for Visit * Reason Onset Date Comments Results 05/02/2021 Encounter Details Date Type Department Care Team (Late st Contact Info) Description 05/02/2021 Telephone [facility] Internal Medicine [address] [address] Adriana Rubio, ANP [address] [address] Results Social History Tobacco Use Types Packs/Day [...] often do you attend chur ch or zoroastrian services? More than 4 times per year [...] COVID-19? No / Unsure 04/27/2021 10:43 AM ROBOTICS ENGINEER documented as of this encounter Miscellaneous Notes * Telephone Encounter - Pearl Black - 05/02/2021 12:27 PM CST Pt informed TICS ENGINEER * Telephone Encounter - Adriana Rubio ANP - 05/02/2021 12:12 PM ROBOTICS ENGINEER covid test received- negative. Proceed with treatment per Dr. Koehler. F/u if not improving. TICS ENGINEER documented in this encounter Plan of Treatment Upcoming Encounters Date Type Department Care Team (Late st Contact Info) Description 07/27/2024 9:40 AM CDT Office Visit [facility] [address] [place] [address] Eldon Koehler MD [address] [place] [address] [place] [phone] documented as of this encounter Visit Diagnoses Not on filedocumented in this encounter Additional Health Concerns Infection Onset Date Last Indicated Resolved Time R/O COVID-19 04/27/2021 05/02/2021 05/04/2021 1:16 AM ROBOTICS ENGINEER Assessment Noted Time PHQ-9 Depression Total Score: 2 08/01/19 21 9:15 PM CDT documented as of this encounter Care Teams Product Tester Fiberglass Relationship Specialty Start Date End Date Eldon Koehler MD PCP - General 10/06/07 documented as of this encounter
--- OUTSIDE RECORDS SUMMARY | 2024-05-22 16:59 | XMS_ITS | Encounter Summary ---
Author Organization [facility] Address [address] [place]: Epic Prelude ADT [place] [address] Care Team Providers Care Coding Technician Name Role Phone Eldon Koehler MD Primary Care Provider [phone] Encounter Details Date Type Department Care Team (Latest Contact Info) Description 04/10/2021 Travel Social History Tobacco Use Types Packs/Day [...] week 04/30/2019 How often do you attend [facility] or moravian services? More than 4 times [...] COVID-19? No / Unsure 04/10/2021 9:45 AM PRACTICE PROFESSIONAL documented as of this encounter Plan of Treatment Upcoming Encounters Date Type Department Care Team (Late st Contact Info) Description 07/27/2024 9:40 AM CDT Office Visit [facility] Primary Care [address] [place] [address] Eldon Koehler MD [address] [place] [address] [address] documented as of this encounter Visit Diagnoses Not on filedocumented in this encounter Additional Health Concerns Assessment Noted Time PHQ-9 Depression Total Score: 2 08/01/19 21 9:15 PM CDT documented as of this encounter Care Teams Coding Technician Relationship Specialty Start Date End Date Eldon Koehler MD PCP - General 10/06/07 documented as of this encounter
--- OUTSIDE RECORDS SUMMARY | 2024-05-22 16:59 | XMS_ITS | Encounter Summary ---
Author Organization [facility] Address [address] [place]: Epic Prelude ADT [place] [address] Care Team Providers Care Gun Fertilizer Name Role Phone Eldon Koehler MD Primary Care Provider [phone] Encounter Details Date Type Department Care Team (Latest Contact Info) Description 02/26/2021 Travel Social History Tobacco Use Types Packs/Day [...] week 04/30/2019 How often do you attend [facility] or muslim services? More than 4 times [...] AM CDT Office Visit [facility]3] Primary Care [address] [place] [address] Eldon Koehler MD [address] [place] [address] [address] documented as of this encounter Visit Diagnoses Not on filedocumented in this encounter Additional Health Concerns Assessment Noted Time PHQ-9 Depression Total Score: 2 08/01/19 21 9:15 PM CDT documented as of this encounter Care Teams Gun Fertilizer Relationship Specialty Start Date End Date Eldon Koehler MD PCP - General 10/06/07 documented as of this encounter
--- OUTSIDE RECORDS SUMMARY | 2024-05-22 17:00 | XMS_ITS | Encounter Summary ---
Author Organization [facility] Address [address] [place]: Epic Prelude ADT [place] [address] Care Team Providers Care Civil Estimator Name Role Phone Eldon Koehler MD Primary Care Provider [phone] Encounter Details Date Type Department Care Team (Latest Contact Info) Description 08/04/2020 Travel Social History Tobacco Use Types Packs/Day [...] week 04/30/2019 How often do you attend [facility] or christian services? More than 4 times per year 04/30/2019 Do you belong to any clubs o r organizations such as episcopal groups, unions, fraternal or athletic groups, or [...] have Coronavirus / COVID-19? Unable to assess 08/04/2020 8:22 AM CDT documented as of this encounter Plan of Treatment Upcoming Encounters Date Type Department Care Team (Late st Contact Info) Description 07/27/2024 9:40 AM CDT Office Visit [facility] Primary Care [address] [place] [address] Eldon Koehler MD [address] [place] [address] [place] [address] [place] [address] documented as of this encounter Visit Diagnoses Not on filedocumented in this encounter Additional Health Concerns Assessment Noted Time PHQ-9 Depression Total Score: 2 08/01/19 21 9:15 PM CDT documented as of this encounter Care Teams Civil Estimator Relationship Specialty Start Date End Date Eldon Koehler MD PCP - General 10/06/07 documented as of this encounter
--- OUTSIDE RECORDS SUMMARY | 2024-05-22 17:00 | XMS_ITS | Encounter Summary ---
Author Organization [facility] Address [address] [place]: Epic Prelude [place]T [place] [address] Care Team Providers Care Materials Assistant Name Role Phone Eldon Koehler MD Primary Care Provider [phone] Encounter Details Date Type Department Care Team (Latest Contact Info) Description 07/31/2020 Travel Social History Tobacco Use Types Packs/Day [...] week 04/30/2019 How often do you attend [facility] or anabaptism services? More than 4 times per year 04/30/2019 Do you belong to any clubs o r organizations such as holiness groups, unions, fraternal or athletic groups, or [...] have Coronavirus / COVID-19? No / Unsure 07/31/2020 12:01 PM CDT documented as of this encounter Plan of Treatment Upcoming Encounters Date Type Department Care Team (Late st Contact Info) Description 07/27/2024 9:40 AM CDT Office Visit [facility] Primary Care [address] [place] [address] Eldon Koehler MD [address] [place] [address] [address] documented as of this encounter Visit Diagnoses Not on filedocumented in this encounter Additional Health Concerns Assessment Noted Time PHQ-9 Depression Total Score: 2 08/01/19 21 9:15 PM CDT documented as of this encounter Care Teams Materials Assistant Relationship Specialty Start Date End Date Eldon Koehler MD PCP - General 10/06/07 documented as of this encounter
--- OUTSIDE RECORDS SUMMARY | 2024-05-22 17:00 | XMS_ITS | Encounter Summary ---
Author Organization [facility] Address [address] [place] [address] Care Team Providers Care Environmental Services Tech Name Role Phone Eldon Koehlre MD Primary Care Provider Reason for Visit * Reason Comments Medication Refill Encounter Details Date Type Department Care Team (Late st Contact Info) Description 02/05/2019 Refill [facility] Internal Medicine [address] [address] Eldon Koehler MD [address] [place] [address] Social History Tobacco Use Types Packs/Day Years Used Date Smoking Tobacco: Never Smokeless Tobacco: Never Alcohol Use Standard Drinks/Week Comments Yes 0 (1 standard drink = 0.6 oz pur e alcohol) rare Sex and Gender Information Value Date Recorded Sex Assigned at Not on file Gender Identity Not on file Sexual Orientation Not on file documented as of this encounter Miscellaneous Notes * Telephone Encounter - Lilliam Huitron - 02/08/2019 7:54 AM CDT EMILY 05/15/18 NOV NONE documented in this encounter Plan of Treatment Upcoming Encounters Date Type Department Care Team (Late st Contact Info) Description 07/27/2024 9:40 AM CDT Office Visit [facility] Primary Care [address] [place] [address] Eldon Koehler MD [address] [facility] [address] [place] [address] documented as of this encounter Visit Diagnoses Not on filedocumented in this encounter Care Teams Environmental Services Tech Relationship Specialty Start Date End Date Eldon Koehler MD PCP - General 10/06/07 documented as of this encounter
--- OUTSIDE RECORDS SUMMARY | 2024-05-22 17:00 | XMS_ITS | Encounter Summary ---
Author Organization [facility] Address [address] [place]: Epic Prelude [place]T [place] [address] Care Team Providers Care Shingle Inspector Name Role Phone Eldon Koehler MD Primary Care Provider [phone] Encounter Details Date Type Department Care Team (Latest Contact Info) Description 04/03/2020 Travel Social History Tobacco Use Types Packs/Day [...] any clubs o r organizations such as confucianism groups, unions, fraternal or athletic groups, or [...] care, and heating? Not hard at all 04/30/2019 Food Insecurity Answer Date Recorded Within the past 12 months, y ou worried that your food would run out before you got the money to buy more. Never true 04/30/20 19 Ran Out of Food in the Last Year Not on file 04/30/2019 Transportation Needs Answer Date Record ed In the past 12 months, has l ack of transportation kept you from medical appointments or from getting medications? No 04/12 In the past 12 months, has l ack of transportation kept you from meetings, work, or from getting things needed for daily living? No 04/30/2019 Sex and Gender Information Value Date Recorded Sex Assigned at Not on file Gender Identity Not on file Sexual Orientation Not on file COVID-19 Exposure Response Date Recorded In the last month, have you been in contact with someone who was confirmed or suspected to have Coronavirus / COVID-19? No / Unsure 04/03/2020 3:08 PM PREP MANAGER documented as of this encounter Plan of Treatment Upcoming Encounters Date Type Department Care Team (Late st Contact Info) Description 07/27/2024 9:40 AM CDT Office Visit [facility] Primary Care [address] [place] [address] Eldon Koehler MD [address] [place] [address] [address] [place] [address] documented as of this encounter Visit Diagnoses Not on filedocumented in this encounter Care Teams Shingle Inspector Relationship Specialty Start Date End Date Eldon Koehler MD PCP - General 10/06/07 documented as of this encounter
--- OUTSIDE RECORDS SUMMARY | 2024-05-22 17:00 | XMS_ITS | Encounter Summary ---
Author Organization [facility] Address [address] [place] [address] Care Team Providers Care Wood Veneer Taper Name Role Phone Eldon Koehler MD Primary Care Provider [phone] Reason for Visit * Reason Comments Medication Refill Encounter Details Date Type Department Care Team (Late st Contact Info) Description 03/09/2020 Refill [facility] Internal Medicine [address] [address] Adriana Rubio, ANP [address] [address] Other hyperlipidemia Social History Tobacco Use Types [...] often do you attend [facility] or presybeterian services? More than 4 times per year [...] * Telephone Encounter - Pearl Black - 03/09/2020 7:37 AM CDT Kendy 12/24/19 NOV 03/29/20 documented in this encounter Plan of Treatment Upcoming Encounters Date Type Department Care Team (Late st Contact Info) Description 07/27/2024 9:40 AM CDT Office Visit [facility] Primary Care [address] [place] [address] [place] [address] Eldon Koehler MD [address] [place] [address] [place] [address] [place] [address] documented as of this encounter Visit Diagnoses Diagnosis Other hyperlipidemia documented in this encounter Care Teams Wood Veneer Taper Relationship Specialty Start Date End Date Eldon Koehler MD PCP - General 10/06/07 documented as of this encounter
--- OUTSIDE RECORDS SUMMARY | 2024-05-22 17:00 | XMS_ITS | Encounter Summary ---
Author Organization [facility] Address [address] [place] [address] Care Team Providers Care Wagon Driller Name Role Phone Eldon Koehler MD Primary Care Provider [phone] Reason for Visit * Reason Onset Date Comments Medication Refill 10/01/2019 Encounter Details Date Type Department Care Team (Late st Contact Info) Description 10/01/2019 Refill [facility] Internal Medicine [address] [address] Eldon Koehler MD [address] [place] [address] Social History Tobacco Use Types Packs/Day [...] * Telephone Encounter - Martha Plata - 10/01/2019 3:48 PM CDT Spoke to patient. Scheduled appt * Telephone Encounter - Eldon Koehler MD - 10/01/2019 3:20 PM CDT Med filled needs to sched video visit next week overdue fu * Telephone Encounter - Martha Plata - 10/01/2019 3:03 PM CDT Patient fell, bruised knee and ankle. Patient c/o muscle pain in back. Patient requesting refill of muscle relaxer. EMILY 04-30-2019 NOV none documented in this encounter Plan of Treatment Upcoming Encounters Date Type Department Care Team (Late st Contact Info) Description 07/27/2024 9:40 AM CDT Office Visit [facility] Primary Care [address] [place] [address] Eldon Koehler MD [address] [place] [address] [address] [place] [address] documented as of this encounter Visit Diagnoses Not on filedocumented in this encounter Care Teams Wagon Driller Relationship Specialty Start Date End Date Eldon Koehler MD PCP - General 10/06/07 documented as of this encounter
--- OUTSIDE RECORDS SUMMARY | 2024-05-22 17:00 | XMS_ITS | Encounter Summary ---
Author Organization [facility] Address [address] [place] [address] Care Team Providers Care Franchise Manager Name Role Phone Eldon Koehler MD Primary Care Provider [phone] Reason for Visit * Reason Comments Medication Refill Encounter Details Date Type Department Care Team (Late st Contact Info) Description 12/26/2019 Refill [facility] Internal Medicine [address] [address] Adriana Rubio, ANP [address] [address] Social History Tobacco Use Types [...] have Coronavirus / COVID-19? No / Unsure 12/24/2019 9:29 AM CDT documented as of this encounter Miscellaneous Notes * Telephone Encounter - Pearl Black - 12/27/2019 7:17 AM CDT EMILY 12/24/19 NOV 03/29/20 documented in this encounter Plan of Treatment Upcoming Encounters Date Type Department Care Team (Late st Contact Info) Description 07/27/2024 9:40 AM CDT Office Visit [facility] Primary Care [address] [place] [address] Eldon Koehler MD [address] [place] [address] [address] [place] [address] documented as of this encounter Visit Diagnoses Not on filedocumented in this encounter Care Teams Franchise Manager Relationship Specialty Start Date End Date Eldon Koehler MD PCP - General 10/06/07 documented as of this encounter
--- OUTSIDE RECORDS SUMMARY | 2024-05-22 17:00 | XMS_ITS | Encounter Summary ---
Author Organization [facility] Address [address] [place] [address] Care Team Providers Care Brew House Supervisor Name Role Phone Eldon Koehler MD Primary Care Provider [phone] Reason for Referral * Eval and Treat (Routine) - Closed Specialty Diagnoses / Procedures Referred By Carmen villalobos Referred To Contact Diagnoses Chronic right shoulder pain Eldon Koehler MD [address] [place] [phone] Referral ID Status Reason Start Date Expiration Date Visits Re quested Visits Authorized [id number] Closed 08/01/2020 08/01/2021 1 1 Reason for Visit * Reason Comments Annual Wellness Visit (Medicare) Encounter Details Date Type Department Care Team (Late st Contact Info) Description 08/01/2020 10:30 AM CDT Office Visit [facility] Internal Medicine [address] [phone] Eldon Koehler MD [address] [place] [phone] Mild intermittent asthma without complication (Primary Dx); Fibromyalgia; Other specified hypothyroidism; Recurrent major depressive disorder, in partial remission; Prediabetes; Other specified anxiety disorders; Chronic right shoulder pain; Other hyperlipidemia; Vitamin B12 deficiency (non anemic); Vitamin D deficiency; Morbid obesity with body mass index of [...] How often do you attend chur or confucianist services? More than 4 times per year [...] Sign Reading Time Taken Comments Blood Pressure 138/80 08/01/2020 10:28 AM CDT Pulse 91 08/01/2020 10:28 AM CDT Temperature 36.5 ??C (97.7 ??F) 08/01/2020 10:28 AM C DT Respiratory Rate - - Oxygen Saturation 97% 08/01/2020 10:28 AM CDT Inhaled Oxygen Concentration - - Weight 125.6 kg (277 lb) 08/01/2020 10:28 AM CDT Height 167.6 cm (5' 6 ) 08/01/2020 10:28 AM CDT Body Mass Index 44.71 08/01/2020 10:28 AM CDT documented in this encounter Progress Notes * Eldon Koehler MD - 08/01/2020 10:41 AM CDT Subjective: Winifred Rodriguez is a 70 y.o. female. hpi Ongoing stress buspar better Wt up On cpap Med reviewed Recent lab reviewed Sugar, chol ok Patient Active Problem List Diagnosis Date Noted [...] to Visit Medication Sig Dispense Refill ??? rOPINIRole (REQUIP) 0.5 mg tablet Take [...] TWO TIMES DAILY 180 Capsule 3 ??? OTHER mvi gummies for women over 50 Calcium with D3 gummies B12 gummies 1500mcg ??? rOPINIRole (REQUIP) 2 mg Tablet TAKE 1 TABLET BY MOUTH DAILY AT BEDTIME 90 Tablet 3 ??? albuterol HFA 90 mcg inhaler Take 2 Puffs by inhalation 4 times daily as needed for Shortness of Breath. 8.5 Gram 2 No current facility-administered medications on file prior to visit. Allergies Allergen Reactions ??? Clindamycin Rash and Itching ??? Nickel Hives ??? Codeine Nausea and Vomiting ??? Nsaids [...] ??? HX COLONOSCOPY ??? HX DIAGNOSTIC LAPAROSCOPY s ??? HX KNEE REPLACEMENT Bilateral 2014, 2015 ??? HX ROTATOR CUFF REPAIR Right 06/12/2016 ??? HX SKIN BIOPSY ??? AZ COLONOSCOPY FLX DX W/COLLJ SPEC WHEN PFRMD N/A 03/15/2015 COLONOSCOPY performed by Osei Sutton MD at [facility] ??? AZ ESOPHAGOGASTRODUODENOSCOPY TRANSORAL DIAGNOSTIC N/A 01/21/2017 ESOPHAGOGASTRODUODENOSCOPY performed by Elizabeth Mcbride MD at [facility] OR ??? AZ LAP, ORLY RESTRICT PROC, LONGITUDINAL GASTRECTOMY N/A 01/21/2017 GASTRECTOMY LONGITUDINAL LAPAROSCOPIC performed by Elizabeth Mcbride MD at [facility] OR Family History Problem Relation Name Age of Onset ??? Colon Cancer Mother ??? Stroke Father ??? Stroke Maternal Grandfather ??? Stroke Paternal Grandfather ??? Kidney Disease Brother HIERO ??? Healthy Brother SHEREEN ??? Healthy Brother BEENA Social History Tobacco Use ??? Smoking status: Never Smoker ??? Smokeless tobacco: Never Used Substance Use Topics ??? Alcohol use: Never Exam/Objective: BP 138/80 Pulse 91 Temp 97.7 ??F (36.5 ??C) (Oral) Ht 5' 6 (1.676 m) Wt 125.6 kg (277 lb) SpO2 97% BMI 44.71 kg/m?? General appearance: over wt nad Head: Normocephalic, without obvious abnormality, atraumatic Eyes: conjunctivae/corneas clear. PERRLA, EOM's intact. Lids appear normal. Ears: normal TM's (shiny without retraction) and external ear canals AU. No apparent lesions or masses. Hearing grossly normal. Nosemask. Throat:mask Neck: supple, symmetrical, trachea midline, no [...] or generalized lymphadenopathy. Neck Ext no edema Dec rom right shoulder Mood stable Assessment and Plan: ASSESSMENT: ICD-10-CM ICD-9-CM 1. Mild intermittent asthma without complication J45.20 493.90 CBC WITH DIFFERENTIAL CBC WITH DIFFERENTIAL 2. Fibromyalgia M79.7 729.1 3. Other specified hypothyroidism E03.8 244.8 TSH TSH 4. Recurrent major depressive disorder, in partial remission F33.41 296.35 5. Prediabetes R73.03 790.29 HEMOGLOBIN A1C HEMOGLOBIN A1C 6. Other specified anxiety disorders F41.8 300.09 7. Chronic right shoulder pain M25.511 719.41 AMB REFERRAL TO ORTHOPEDIC SURGERY G89.29 338.29 8. Other hyperlipidemia E78.49 272.4 CHOLESTEROL TOTAL COMPREHENSIVE METABOLIC PANEL CHOLESTEROL TOTAL COMPREHENSIVE METABOLIC PANEL 9. Vitamin B12 deficiency (non anemic) E53.8 266.2 CBC WITH DIFFERENTIAL VITAMIN B12 LEVEL CBC WITH DIFFERENTIAL VITAMIN B12 LEVEL 10. Vitamin D deficiency E55.9 268.9 VITAMIN D 25 HYDROXY VITAMIN D 25 HYDROXY Asthma monitor has inh Recheck vit d, b12 Anxiety cont med depn add wellbutrin Chol cont med better Gluc diet reviewed Thyroid cont med gerd stable Obesity add wellbutrin as above Shoulder Had surgery yrs ago refer Health Maintenance Topic Date Due ??? PNEUMOCOCCAL VACCINE 65+ YEARS (1 of 2 - PPSV23) 06/08/2018 ??? BREAST CANCER SCREENING 11/03/2020 ??? Annual Wellness Visit-Medicare 08/02/2021 ??? Colorectal Cancer Screening 03/15/2025 ??? OSTEOPOROSIS SCREENING Completed ??? ZOSTER VACCINE Completed ??? INFLUENZA VACCINE Completed ??? COVID-19 Vaccine Completed tdap advised PLAN: Orders Placed This Encounter ??? CBC WITH DIFFERENTIAL ??? CHOLESTEROL TOTAL ??? COMPREHENSIVE METABOLIC PANEL ??? HEMOGLOBIN A1C ??? TSH ??? VITAMIN B12 LEVEL ??? VITAMIN D 25 HYDROXY ??? Generic Referral to Orthopedic Surgery Appropriate medications prescribed Appropriate patient instructions provided Follow-up as I have indicated. Medications and options explained to include common side effects. Understanding of medications, course, diagnosis, and expectations were expressed by patient/guardian. MEDICARE WELLNESS VISIT Winifred Batistahayleybelinda is a 70 y.o. female here today for her Annual Wellness Visit (Medicare) HEALTH RISK ASSESSMENT Completed by and reviewed with patient/caregiver. See Annual Wellness Visit HRA Flowsheet In general, how would you rate your health?: Good (07/31/202114) MEDICAL RECORD REVIEWED AND UPDATED, INCLUDING: Current providers and suppliers: Patient Care Team: Eldon Koehler MD as PCP - General Elizabeth Mcbride MD as Consulting Physician (Surgery) Past Medical and Surgical History Family History Current medications and allergies In general, how often do you forget or decide not to take one or more of your medications?: Seldom (07/31/202114) Social History How hard is it for you to pay for the very basics like food, housing, medical care, and heating?: Not hard at all (07/31/202114) In the past 12 months, have you worried that your food would run out before you had money to buy more?: Never true (07/31/202114) In the past 12 months, did you run out of food and didn't have money to buy more?: Never true (07/31/202114) In the past 12 months, has lack of transportation kept you from medical appointments or from getting medications?: No (07/31/202114) EXAMINATION(MA may complete) BP 138/80 Pulse 91 Temp 97.7 ??F (36.5 ??C) (Oral) Ht 5' 6 (1.676 m) Wt 125.6 kg (277 lb) SpO2 97% BMI 44.71 kg/m?? Visual Acuity: Hearing: Have you been told by others you turn up your TV volume too high or that you have problems hearing?: No (07/31/202114) FUNCTIONAL ABILITY AND SAFETY (MA may complete) Have you fallen one or more times in the past year?: Yes (07/31/202114) Does patient need help with (ADL's): Dressing: No (07/31/202114) Bathing: No (07/31/202114) Walking: No (07/31/202114) Shopping: No (07/31/202114) Housekeeping: No (07/31/202114) Managing your medication: No (07/31/202114) Managing my finances: No (07/31/202114) Do you currently use any medical equipment, such as a cane, walker, wheelchair, or oxygen tank?: No(07/31/202114) Do you fasten your seat belt when you are in the car?: Yes (07/31/202114) Do you have family and/or friends that provide you with support or care when needed?: Yes () Who gives you the most support?: Spouse (07/31/202114) Do you feel safe at home?: Yes (07/31/202114) RISK ASSESSMENT (MA or Provider can complete) (QM) Positive: PHQ-2 score >= 3 or PHQ-9 score >= 9 PHQ-2 Total: 2 (07/31/2020 9:15 PM) PHQ-9 Total: 7 (07/31/2020 9:15 PM) DEPRESSION PLAN OF CARE Her antidepressant medication was reviewed TOBACCO COUNSELING (QM) reports that she has never smoked. She has never used smokeless tobacco. She is not a tobacco user. Opioid Use Current Opioids: none on current medication list Cognitive Impairment The patient does report concerns regarding cognitive or behavioral issues. Cognitive ability observed and assessed throughout the exam. Structured assessment: Mini-Mental Status Exam: TOTAL SCORE: 30 (08/01/20 1000) PREVENTIVE CARE GUIDELINES (MA or Provider [...] or Fecal Occult Blood testing yearly ages 50-75 Lung Cancer Screening Annual low-dose CT, adults 55 - 80* w/ >30 pack-year smoking hx who currently smoke or have quit w/in 15 yrs (*Medicare will not cover for >77 yo) Lipid Screening Identification of dyslipidemia and calculation of 10-year CVD event risk requires universal lipid screening in adults ages 40 - 75 Diabetic screening Adults 40-70 who are overweight or obese Hepatitis C Screening Adults 18-79 (updated July 2019) No results found for: HEPCAB Immunizations Influenza: yearly Pneumococcal: PPSV23 x 1 after age 65; +/- PCV13 Tetanus: all adults every 10 yrs Zoster(Shingles):>50yo, series of 2 ADVANCE CARE PLANNING (Provider only) Do you have an Advance Directive (Living Will)?: Yes (07/31/202114) She has an advanced directive, but a copy has not been provided. Asked to bring a copy for review and scanning into the medical record. RISK FACTORS AND CONDITIONS FOR WHICH INTERVENTIONS ARE RECOMMENDED AND/OR UNDERWAY (Provider only) Are you currently on any kind of special diet? : No (07/31/202114) In a typical week, how many days do you engage in moderate to strenuous exercise such as walking fast, running, jogging, dancing, swimming, biking, or other activities that cause a light or heavy sweat?: 0 days (07/31/202114) During the past 4 weeks, would you say you have had...: Moderate pain (07/31/202114) Uncontrolled pain EDUCATION/COUNSELING/REFERRAL(S) (Provider only) Exercise program and Nutrition counseling Orders Placed This Encounter ??? CBC WITH DIFFERENTIAL ??? CHOLESTEROL TOTAL ??? COMPREHENSIVE METABOLIC PANEL ??? HEMOGLOBIN A1C ??? TSH ??? VITAMIN B12 LEVEL ??? VITAMIN D 25 HYDROXY ??? Generic Referral to Orthopedic Surgery Ms. Rodriguez voiced understanding and agreement with the treatment plan. All questions were answered. [id number] provided to patient. ACUTE AND/OR CHRONIC ISSUES REQUIRING EVALUATION AND MANAGEMENT OUTSIDE THE WELLNESS VISIT (Provider only) Yes: Per E&M documentation: documented in this encounter Plan of Treatment Upcoming Encounters Date Type Department Care Team (Late st Contact Info) Description 07/27/2024 9:40 AM CDT Office Visit [facility] Primary Care [address] [place] [address] Eldon Koehler MD [address] [place] [address] [address] [place] [address] Scheduled Referrals Name Type Priority Associated Diagnoses Order Schedule AMB REFERRAL TO ORTHOPEDIC SURGERY Outpatient Referral Routine Chronic right shoulder pain Ordered: 08/01/2020 documented as of this encounter Procedures Procedure Name Priority Date/Time Associated Diagnosis Comments CBC WITH DIFFERENTIAL Routine 11/29/2020 8:23 AM CDT Mild intermittent asthma without complication Vitamin B12 deficiency (non anemic) VITAMIN D 25 HYDROXY Routine 11/29/2020 8:23 AM CDT Vitamin D deficiency TSH Routine 11/29/2020 8:23 AM CDT Other specified hypothyroidism HEMOGLOBIN A1C Routine 11/29/2020 8:23 AM CDT Prediabetes VITAMIN B12 LEVEL Routine 11/29/2020 8:2 3 AM CDT Vitamin B12 deficiency (non anemic) CHOLESTEROL TOTAL Routine 11/29/2020 8:2 3 AM CDT Other hyperlipidemia COMPREHENSIVE METABOLIC PANEL Routine 11/29/2020 8:23 AM CDT Other hyperlipidemia documented in this encounter Results * VITAMIN D 25 HYDROXY (11/29/2020 8:23 AM CDT) VITAMIN D, 25 OH, TOTAL 38 30 - 100 ng/mL [facility] Comment: Vitamin D Status ? 25-OH Vitamin D: Deficiency: ?<20 ng/mL Insufficiency: ? 20 - 29 ng/mL Optimal: ? > or = 30 ng/mL For 25-OH Vitamin D testing on patients on D2-supplementation and patients for whom quantitation of D2 and D3 fractions is required, the [facility]() 25-OH VIT D, (D2,D3), LC/MS/MS is recommended: order code 17935 (patients >2yrs). See Note 1 Note 1 For additional information, please refer to http://education.[employer]/faq/YQX605 (This link is being provided for informational/ educational purposes only.) Test Performed at: [facility] ??[phone] Brent Lieberman D.O., MPH Blood 11/29/2020 8:23 AM CDT 11/29/2020 8:25 AM CDT Eldon Koehler MD CHEMISTRY ORDERABLES Performing Organization Address City/[facility] Co de Phone Number [facility] [address] [place] [address] * VITAMIN B12 LEVEL (11/29/2020 8:23 AM CDT) Pathologist [facility] VITAMIN B12 678 200 - 1100 pg/mL [facility] Comment: FASTING:YES FASTING: YES Test Performed at: [facility] ??[phone] Brent Lieberman D.O., MPH Blood 11/29/2020 8:23 AM CDT 11/29/2020 8:25 AM CDT Eldon Koehler MD CHEMISTRY ORDERABLES Performing Organization Address [facility] de Phone Number [facility] [address] [place] [address] * TSH (11/29/2020 8:23 AM CDT) Pathologist [facility] TSH 0.48 0.40 - 4.50 mIU/L [facility] Comment: Test Performed at: [facility] ??[phone] Brent Lieberman D.O., MPH Blood 11/29/2020 8:23 AM CDT 11/29/2020 8:25 AM CDT Eldon Koehler MD CHEMISTRY ORDERABLES Performing Organization Address City/[facility] Co de Phone Number [facility] [address] [place] [address] * (ABNORMAL) HEMOGLOBIN A1C (11/29/2020 8:23 AM CDT) HEMOGLOBIN A1C 5.9(H) <5.7 % of total Hgb [facility] Comment: Test Performed at: [facility] [address] [place] ??[phone] Leidy-Sayra Thi Vo Blood 11/29/2020 8:23 AM CDT 11/29/2020 8:25 AM CDT Eldon Koehler MD CHEMISTRY ORDERABLES [facility] [address] [place] [address] * (ABNORMAL) COMPREHENSIVE METABOLIC PANEL (11/29/2020 8:23 AM CDT) GLUCOSE 103(H) 65 - 99 mg/dL [facility] Comment: ? Fasting reference interval For someone without known diabetes, a glucose value between 100 and 125 mg/dL is consistent with prediabetes and should be confirmed with a follow-up test. BUN 15 7 - 25 mg/dL [facility] CREATININE 0.85 0.50 - 0.99 mg/dL [facility] Comment: For patients >49 years of age, the reference limit for Creatinine is approximately 13% higher for people identified as -Icelandic. GFR 70 > OR = 60 mL/min/1 .73m2 [facility] GFR, 82 > OR = 60 mL/min/1 .73m2 [facility] BUN/CREAT RATIO NOT APPLICABLE 6 - 22 (calc) [facility] SODIUM 141 135 - 146 mmol/L [facility] POTASSIUM 4.3 3.5 - 5.3 mmol/L [facility] CHLORIDE 105 98 - 110 mmol/L [facility] CO2 29 20 - 32 mmol/L [facility] CALCIUM 9.0 8.6 - 10.4 mg/dL [facility] TOTAL PROTEIN 6.5 6.1 - 8.1 g/dL [facility] ALBUMIN 3.7 3.6 - 5.1 g/dL [facility] GLOBULIN 2.8 1.9 - 3.7 g/dL (calc) [facility] ALBUMIN/GLOBULIN RATIO 1.3 1.0 - 2.5 (calc) [facility] BILIRUBIN TOTAL 0.6 0.2 - 1.2 mg/dL [facility] ALKALINE PHOSPHATASE 173(H) 37 - 153 U/L [facility] AST 13 10 - 35 U/L [facility] ALT 13 6 - 29 U/L [facility] Comment: Test Performed at: [facility] [employer] ??[phone] Brent Lieberman D.O., MPH Blood 11/29/2020 8:23 AM CDT 11/29/2020 8:25 AM CDT Eldon Koehler MD CHEMISTRY ORDERABLES Performing Organization Address City/[facility]/ZIP Co de Phone Number [facility] [address] [place] [address] * CHOLESTEROL TOTAL (11/29/2020 8:23 AM CDT) CHOLESTEROL 166 <200 mg/dL [facility] Comment: Test Performed at: [address] ??[phone] Brent Lieberman D.O., MPH Blood 11/29/2020 8:23 AM CDT 11/29/2020 8:25 AM CDT Eldon Koehler MD CHEMISTRY ORDERABLES Performing Organization Address [facility]/ZIP Co de Phone Number [facility] [address] [place] [address] * (ABNORMAL) CBC WITH DIFFERENTIAL (11/29/2020 8:23 AM CDT) WBC 7.7 3.8 - 10.8 Thousand/u L [facility] RBC 4.23 3.80 - 5.10 Million/uL [facility] HEMOGLOBIN 11.5(L) 11.7 - 15.5 g/dL [facility] HEMATOCRIT 37.0 35.0 - 45.0 % [facility] MCV 87.5 80.0 - 100.0 fL [facility] MCH 27.2 27.0 - 33.0 pg [facility] MCHC 31.1(L) 32.0 - 36.0 g/dL [facility] RDW 13.3 11.0 - 15.0 % [facility] PLATELETS 355 140 - 400 Thousand/u L [facility] MPV 11.2 7.5 - 12.5 fL [facility] NEUTROPHIL ABSOLUTE 4,505 1,500 - 7,800 cells/uL [facility] LYMPHOCYTE ABSOLUTE 2,064 850 - 3,900 cells/uL [facility] MONOCYTE ABSOLUTE 616 200 - 950 cells/uL [facility] EOSINOPHIL ABSOLUTE 439 15 - 500 cells/uL [facility] BASOPHILS ABSOLUTE 77 0 - 200 cells/uL [facility] NEUTROPHIL 58.5 % [facility] LYMPHOCYTES 26.8 % [facility] MONOCYTE 8.0 % [facility] EOSINOPHILS 5.7 % [facility] BASOPHILS 1.0 % [facility] Comment: Test Performed at: [facility] ??[phone] Brent Lieberman D.O., MPH Blood 11/29/2020 8:23 AM CDT 11/29/2020 8:25 AM CDT Eldon Koehler MD HEMATOLOGY ORDERABLE S [facility] [address] [place] [address] documented in this encounter Visit Diagnoses Diagnosis Mild intermittent asthma without complication- Primary Unspecified asthma Fibromyalgia Mylagia and myositis, unspecified Other specified hypothyroidism Recurrent major depressive disorder, in partial remission Prediabetes Other abnormal glucose Other specified anxiety disorders Chronic right shoulder pain Pain in joint, shoulder region Other hyperlipidemia Vitamin B12 deficiency (non anemic) Other B-complex deficiencies Vitamin D deficiency Unspecified vitamin D deficiency Morbid obesity with body mass index of 40.0-49.9 documented in this encounter Additional Health Concerns Assessment Noted Time PHQ-9 Depression Total Score: 2 08/01/19 21 9:15 PM CDT documented as of this encounter Care Teams Brew House Supervisor Relationship Specialty Start Date End Date Eldon Koehler MD PCP - General 10/06/07 documented as of this encounter
--- OUTSIDE RECORDS SUMMARY | 2024-05-22 17:00 | XMS_ITS | Encounter Summary ---
Author Organization [facility] Address [address] [place] [address] Care Team Providers Care Lap Maker Name Role Phone Eldon Koehler MD Primary Care Provider [phone] Reason for Visit * Reason Onset Date Comments Medication Refill 08/27/2019 Encounter Details Date Type Department Care Team (Late st Contact Info) Description 08/27/2019 Refill [facility] Internal Medicine [address] [address] Delmis Akhtar, [facility] [address] [address] Social History Tobacco Use Types Packs/Day Years [...] often do you attend chur ch or mormonism services? More than 4 times per year 04/30/2019 Do you belong to any clubs o r organizations such as faith groups, unions, fraternal or athletic groups, or [...] [facility] Primary Care [address] [address] Eldon Koehler MD [address] [place] [address] [place] [address] documented as of this encounter Visit Diagnoses Not on filedocumented in this encounter Care Teams Lap Maker Relationship Specialty Start Date End Date Eldon Koehler MD PCP - General 10/06/07 documented as of this encounter
--- OUTSIDE RECORDS SUMMARY | 2024-05-22 17:00 | XMS_ITS | Encounter Summary ---
Author Organization [facility] Address [address] [place] [address] Care Team Providers Care Terminal Manager Name Role Phone Eldon Koehler MD Primary Care Provider [phone] Reason for Visit * Reason Comments Medication Refill Encounter Details Date Type Department Care Team (Late st Contact Info) Description 12/17/2018 Refill [facility] Internal Medicine [address] [phone] Radha Roca FNP NO ADDRESS ON FILE Other hyperlipidemia Social History Tobacco Use Types [...] * Telephone Encounter - Pearl Black - 12/18/2018 6:50 AM CDT EMILY 05/15/18 No future visit documented in this encounter Plan of Treatment Upcoming Encounters Date Type Department Care Team (Late st Contact Info) Description 07/27/2024 9:40 AM CDT Office Visit [facility] Primary Care [address] [place] [phone] Eldon Koehler MD [address] [place] [phone] documented as of this encounter Visit Diagnoses Diagnosis Other hyperlipidemia documented in this encounter Care Teams Terminal Manager Relationship Specialty Start Date End Date Eldon Koehler MD PCP - General 10/06/07 documented as of this encounter
--- OUTSIDE RECORDS SUMMARY | 2024-05-22 17:00 | XMS_ITS | Encounter Summary ---
Author Organization [facility] Address [address] [place] [address] Care Team Providers Care Body Liner Name Role Phone Eldon Koehler MD Primary Care Provider [phone] Encounter Details Date Type Department Care Team (Late st Contact Info) Description 10/22/2019 Orders Only [facility] Internal Medicine [address] [address] Eldon Koehler MD [address] [place] [address] Memory loss Social History Tobacco Use Types Packs/Day Years [...] often do you attend chur ch or rastafarian services? More than 4 times per year [...] have Coronavirus / COVID-19? No / Unsure 10/07/2019 8:51 AM CDT documented as of this encounter Plan of Treatment Upcoming Encounters Date Type Department Care Team (Late st Contact Info) Description 07/27/2024 9:40 AM CDT Office Visit [facility] Care [address] [place] [address] Eldon Koehler MD [address] [place] [address] [place] [address] documented as of this encounter Procedures Procedure Name Priority Date/Time Associated Diagnosis Comments CT HEAD WO CONTRAST Routine 10/22/2019 Memory loss documented in this encounter Results * CT HEAD WO CONTRAST (10/22/2019) Anatomical Region Laterality Modality Head Other Eldon Koehler MD CT ORDERABLES documented in this encounter Visit Diagnoses Diagnosis Memory loss documented in this encounter Care Teams Body Liner Relationship Specialty Start Date End Date Eldon Koehler MD PCP - General 10/06/07 documented as of this encounter
--- OUTSIDE RECORDS SUMMARY | 2024-05-22 17:00 | XMS_ITS | Encounter Summary ---
Author Organization [facility] Address [address] [place]: Epic Prelude [place] [address] Care Team Providers Care Senior Systems Engineer Name Role Phone Eldon Koehler MD Primary Care Provider [phone] Encounter Details Date Type Department Care Team (Latest Contact Info) Description 08/16/2020 Travel Social History Tobacco Use Types Packs/Day [...] 04/30/2019 How often do you attend [facility] or hoahaoism services? More than 4 times [...] have Coronavirus / COVID-19? No / Unsure 08/16/2020 8:33 AM CDT documented as of this encounter Plan of Treatment Upcoming Encounters Date Type Department Care Team (Late st Contact Info) Description 07/27/2024 9:40 AM CDT Office Visit [facility] Primary Care [address] [place] [address] Eldon Koehler MD [address] [place] [address] [address] [place] [address] documented as of this encounter Visit Diagnoses Not on filedocumented in this encounter Additional Health Concerns Assessment Noted Time PHQ-9 Depression Total Score: 2 08/01/19 21 9:15 PM CDT documented as of this encounter Care Teams Senior Systems Engineer Relationship Specialty Start Date End Date Eldon Koehler MD PCP - General 10/06/07 documented as of this encounter
--- OUTSIDE RECORDS SUMMARY | 2024-05-22 17:00 | XMS_ITS | Encounter Summary ---
Author Organization [facility] Address [address] [place]: [place] [address] Care Team Providers Care Interlocking Installer Name Role Phone Eldon Koehler MD Primary Care Provider [phone] Encounter Details Date Type Department Care Team (Late st Contact Info) Description 12/29/2019 External Device Data Initial Department [address] [place] [address] Dr [place]: [place] [address] [facility], Social History Tobacco Use Types Packs/Day [...] How often do you attend chur or episcopalian services? More than 4 times per year [...] 07/27/2024 9:40 AM CDT Office Visit [facility] Primary Care [address] [place] [address] Eldon Koehler MD [address] [place] [address] [address] [place] [address] documented as of this encounter Visit Diagnoses Not on filedocumented in this encounter Care Teams Interlocking Installer Relationship Specialty Start Date End Date Eldon Koehler MD PCP - General 10/06/07 documented as of this encounter
--- OUTSIDE RECORDS SUMMARY | 2024-05-22 17:00 | XMS_ITS | Encounter Summary ---
Author Organization [facility] Address [address] [place] [address] Care Team Providers Care Property Management Supervisor Name Role Phone Eldon Koehler MD Primary Care Provider [phone] Reason for Referral * Eval and Treat (Routine) - Closed Specialty Diagnoses / Procedures Referred By Contdorian t Referred To Contact Primary Care Diagnoses Obesity (BMI 35.0-39.9 without comorbidity) Elizabeth Mcbride MD [address] [facility] [address] [place] [address] [facility] [address] [address] Referral ID Status Reason Start Date Expiration Date Visits Requested Visits Authorized [id number] Closed Performing Department To Schedule (STL) 04/09/2018 04/09/2019 1 1 TY SITTER Reason for Visit * Reason Comments Obesity Patient s/p laparosc opic sleeve gastrectomy 01/21/2017. Last Rx of Phentermine prescribed 11/28/2017. Encounter Details Date Type Department Care Team (Latest Contact Info) Description 04/09/2018 10:45 AM SAFETY SITTER Office Visit [facility] [address] [place] [address] Elizabeth Mcbride MD [address] [place] [address] [place] [address] Obesity (BMI 35.0-39.9 without comorbidity) (Primary Dx); Impaired fasting glucose; Folic acid deficiency (non anemic); S/P bariatric surgery; Intestinal malabsorption following gastrectomy Social History Tobacco Use Types Packs/Day Years [...] Sign Reading Time Taken Comments Blood Pressure 120/70 04/09/2018 10:48 AM SAFETY SITTER Pulse 101 04/09/2018 10:59 AM SAFETY SITTER Temperature - - Respiratory Rate - - Oxygen Saturation 98% 04/09/2018 10:48 AM SAFETY SITTER Inhaled Oxygen Concentration - - Weight 99 kg (218 lb 3.2 oz) 04/09/2018 10:48 AM SAFETY SITTER Height 166.4 cm (5' 5.5 ) 04/09/2018 10:48 AM CS T Body Mass Index 35.76 04/09/2018 10:48 AM SAFETY SITTER documented in this encounter Progress Notes * Elizabeth Mcbride MD - 04/09/2018 11:00 AM CST Images from the original note were not included. Chief Complaint Patient presents with ??? Obesity Patient s/p laparoscopic sleeve gastrectomy 01/21/2017. Last Rx of Phentermine prescribed 11/28/2017. Winifred Rodriguez is a 67 y.o. female s/p laparoscopic sleeve gastrectomy 01/21/2017. Follow up on Phentermine prescribed 10/16/2017. Last Rx of Phentermine prescribed 11/28/2017. ?? Patient denies any nausea or vomiting. Denies GERD. Denies any difficulty swallowing. Bowel movements normal. Patient drinking at least 48 oz of fluid daily. Denies dizziness or lightheadedness. Denies dry mouth. Signs and symptoms of dehydration reviewed with patient. Patient to call office with any symptoms of dizziness, lightheadedness, dry mouth, fatigue, or concentrated urine. Unsure of daily caloric intake. Patient is occasionally drinking protein shakes daily. Patients activity regimen is going to the [facility] 3 days a week which she just started this week. 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 Review of Systems Constitutional: Positive for weight loss. Negative for fever. Cardiovascular: Negative for leg swelling. Gastrointestinal: Negative for abdominal pain, constipation, diarrhea, heartburn, nausea and vomiting. BP 120/70 Pulse (!) 101 Ht 5' 5.5 (1.664 m) Wt 99 kg (218 lb 3.2 oz) SpO2 98% BMI 35.76 kg/m?? Physical Exam Constitutional: She is oriented to person, place, and time. No distress. HENT: Head: Normocephalic and atraumatic. Eyes: Pupils are equal, round, and reactive to light. EOM are normal. Neck: Normal range of motion. Neck supple. Cardiovascular: tachy Pulmonary/Chest: No respiratory distress. Abdominal: Soft. She exhibits no distension. There is no tenderness. Incisions closed. No errythema Neurological: She is alert and oriented to person, place, and time. Skin: Skin is warm and dry. She is not diaphoretic. Psychiatric: She has a normal mood and affect. Her behavior is normal. ASSESSMENT: Encounter Diagnoses Name Primary? Impaired fasting glucose Yes ??? Obesity (BMI 35.0-39.9 without comorbidity) Still severe but improved. Discussed risks of phentermine which she would like to continue. discussed not taking with any steroids or new meds (she needs to dw any prescriber) Needs to see dietitian and keep a food log journal. Needs to exercise ??? Folic acid deficiency (non anemic) not taking replacement. Labs ordered but not done ??? Vitamin B1 deficiency not taking replacement. Labs ordered but not done ??? S/P bariatric surgery ?? Intestinal malabsorption following sleeve gastrectomy She is taking vitamins MVI, chewable. Not Calcium - she bout it yesterday ?? MURIEL She stopped bc she could no longer tolerate it ?? GERD-no sx ?? Hyperlipidemia- on lipitor ?? HTN- no meds ?? DM- denies a1c is below 5.4 ?? b12 def- not taking replacement. Labs ordered but not done Vit d def - not taking replacement. Labs ordered but not done ASSESSMENT: Encounter Diagnoses Name Primary? Obesity (BMI 35.0-39.9 without comorbidity) Yes ??? Impaired fasting glucose ??? Folic acid deficiency (non anemic) ??? S/P bariatric surgery ??? Intestinal malabsorption following gastrectomy \ PLAN: Orders Placed This Encounter ??? *[facility] Amor Campbell Patient counseled on behaviors necessary for weight loss., Discussed in detail the post operative diet progression, fluid requirements., Patient understands the postoperative vitamin requirements: multivitamins, calcium (1500mg daily), and any other vitamins levels found to be low in the periop period or previously., Discussed appropriate eating habits, fluid requirements and food choices, Reminded patient that surgery is not magic, it is hard work and behavior changes to be successful., advancing diet every 2 weeks until reaching stage 4., Discussed exercise and activity expectations, 51614 steps a day, exercise after 6 weeks post op is unrestricted, Goal is 150 minutes a week., Patient reminded that surgery is not a magic fix for weight loss, Patient should see the dietitian, Encouragedto attend support groups., See a counselor and PCP if mental health issues arise., take 1500 calcium citrate a day., Take MVI daily., take B1 100mg daily., take crushed pills or liquid medicationsuntil one month post op. After may resume regular formulations, Patient advised to see PCP about medication changes. and fup in 12 months. Will not continue phentermine- BP is elevated Patient to call with question or problems (including abdominal or back pain, nausea or vomiting, fever or chills during the post operative period, unexpected heartburn or regurgitation, inability to tolerate solid protein foods after fully advancing diet, or having food stuck or spitting up more than once a week. TY SITTER * Anabella Solorzano RN - 04/09/2018 10:47 AM CST Patient s/p laparoscopic sleeve gastrectomy 01/21/2017. Last Rx of Phentermine prescribed 11/28/2017. Patient denies any nausea or vomiting. Denies GERD. Denies any difficulty swallowing. Bowel movements normal. Patient drinking at least 48 oz of fluid daily. Denies dizziness or lightheadedness. Denies dry mouth. Signs and symptoms of dehydration reviewed with patient. Patient to call office with any symptoms of dizziness, lightheadedness, dry mouth, fatigue, or concentrated urine. Unsure of daily caloric intake. Patient is occasionally drinking protein shakes daily. Patients activity regimen is going to the [employer] 3 days a week which she just started this week. TY SITTER documented in this encounter Plan of Treatment Upcoming Encounters Date Type Department Care Team (Late st Contact Info) Description 07/27/2024 9:40 AM CDT Office Visit [facility] Primary Care [address] [place] [address] Eldon Koehler MD [address] [place] [address] [place] [address] Scheduled Referrals Name Type Priority Associated Diagnoses Order Schedule AMB REFERRAL TO WEIGHT MANAGEMENT PROGRAM Outpatient Referral Routine Obesity (BMI 35.0-39.9 without comorbidity) Ordered: 04/09/2018 documented as of this encounter Visit Diagnoses Diagnosis Obesity (BMI 35.0-39.9 without comorbidity)- Primary Obesity, unspecified Impaired fasting glucose Folic acid deficiency (non anemic) Other B-complex deficiencies S/P bariatric surgery Bariatric surgery status Intestinal malabsorption following gastrectomy documented in this encounter Care Teams Property Management Supervisor Relationship Specialty Start Date End Date Eldon Koehler MD PCP - General 10/06/07 documented as of this encounter
--- OUTSIDE RECORDS SUMMARY | 2024-05-22 17:00 | XMS_ITS | Encounter Summary ---
Author Organization [facility] Address [address] [place]: Epic Prelude [place]T [place] [address] Care Team Providers Care Underwriting Intern Name Role Phone Eldon Koehler MD Primary Care Provider [phone] Encounter Details Date Type Department Care Team (Latest Contact Info) Description 04/25/2020 Travel Social History Tobacco Use Types Packs/Day [...] How often do you attend chur or bahai services? More than 4 times per year [...] have Coronavirus / COVID-19? No / Unsure 04/25/2020 8:28 AM VIDEO ENGINEER documented as of this encounter Plan of Treatment Upcoming Encounters Date Type Department Care Team (Late st Contact Info) Description 07/27/2024 9:40 AM CDT Office Visit [facility] Primary [facility] [address] [place] [address] Eldon Koehler MD [address] [place] [address] [address] [place] [address] documented as of this encounter Visit Diagnoses Not on filedocumented in this encounter Additional Health Concerns Infection Onset Date Last Indicated Resolved Time R/O COVID-19 04/24/2020 04/25/2020 04/27/2020 7:01 AM VIDEO ENGINEER documented as of this encounter Care Teams Underwriting Intern Relationship Specialty Start Date End Date Eldon Koehler MD PCP - General 10/06/07 documented as of this encounter
--- OUTSIDE RECORDS SUMMARY | 2024-05-22 17:00 | XMS_ITS | Encounter Summary ---
Author Organization [facility] Address [address] [place] [address] Care Team Providers Care Chipping Machine Operator Name Role Phone Eldon Koehler MD Primary Care Provider [phone] Reason for Visit * Reason Comments Medication Refill Encounter Details Date Type Department Care Team (Late st Contact Info) Description 01/20/2020 Refill [facility] Internal Medicine [address] [address] Adriana Rubio, ANP [address] [address] Social History Tobacco Use Types [...] often do you attend chur ch or hinduism services? More than 4 times per year [...] * Telephone Encounter - Pearl Black - 01/21/2020 6:53 AM CDT EMILY 12/24/19 NOV 03/29/20 documented in this encounter Plan of Treatment Upcoming Encounters Date Type Department Care Team (Late st Contact Info) Description 07/27/2024 9:40 AM CDT Office Visit [facility] Primary Care [address] [place] [address] Eldon Koehler MD [address] [place] [address] [address] [place] [address] documented as of this encounter Visit Diagnoses Not on filedocumented in this encounter Care Teams Chipping Machine Operator Relationship Specialty Start Date End Date Eldon Koehler MD PCP - General 10/06/07 documented as of this encounter
--- OUTSIDE RECORDS SUMMARY | 2024-05-22 17:00 | XMS_ITS | Encounter Summary ---
Author Organization [facility] Address [address] [place] [address] Care Team Providers Care Log Deckman Name Role Phone Eldon Koehler MD Primary Care Provider [phone] Reason for Visit * Reason Onset Date Comments Cold exposure 05/08/2018 Encounter Details Date Type Department Care Team (Late st Contact Info) Description 05/08/[address] [facility] Internal Medicine [address] [address] Eldon Koehler MD [address] [place] [address] Cold exposure Social History Tobacco Use Types Packs/Day Years [...] * Telephone Encounter - Margarita Carr - 05/08/2018 2:05 PM CST I forgot to ask for the albuterol. OGRAPHIC PRINTING PRESS OPERATOR * Telephone Encounter - Eldon Koehler MD - 05/08/2018 1:17 PM CST sent OGRAPHIC PRINTING PRESS OPERATOR * Telephone Encounter - Lilly Margarita - 05/08/2018 11:29 AM CST Patient called with c/o having drainage, bad cough, wheezing and she was told to call if this happens. She is known for getting bronchitis she is needing a zpak OGRAPHIC PRINTING PRESS OPERATOR documented in this encounter Plan of Treatment Upcoming Encounters Date Type Department Care Team (Late st Contact Info) Description 07/27/2024 9:40 AM CDT Office Visit [facility] Primary Care [address] [place] [address] Eldon Koehler MD [address] [place] [address] [address] documented as of this encounter Visit Diagnoses Diagnosis RTI (respiratory tract infection) Other diseases of respiratory system, not elsewhere classified documented in this encounter Care Teams Log Deckman Relationship Specialty Start Date End Date Eldon Koehler MD PCP - General 10/06/07 documented as of this encounter
--- OUTSIDE RECORDS SUMMARY | 2024-05-22 17:00 | XMS_ITS | Encounter Summary ---
Author Organization [facility] Address [address] [place] [address] Care Team Providers Care Rn Clinical Research Name Role Phone Eldon Koehler MD Primary Care Provider [phone] Reason for Visit * Reason Comments Medication Refill Encounter Details Date Type Department Care Team (Late st Contact Info) Description 08/03/2018 Refill [facility] Internal Medicine [address] [address] Eldon Koehler MD [address] [place] [address] Social History Tobacco Use Types Packs/Day [...] * Telephone Encounter - Pearl Black - 08/04/2018 7:16 AM CDT EMILY 05/15/18 NOV 09/11/18 documented in this encounter Plan of Treatment Upcoming Encounters Date Type Department Care Team (Late st Contact Info) Description 07/27/2024 9:40 AM CDT Office Visit [facility] Primary Care [address] [place] [address] Eldon Koehler MD [address] [facility] [address] [place] [address] documented as of this encounter Visit Diagnoses Not on filedocumented in this encounter Care Teams Rn Clinical Research Relationship Specialty Start Date End Date Eldon Koehler MD PCP - General 10/06/07 documented as of this encounter
--- OUTSIDE RECORDS SUMMARY | 2024-05-22 17:00 | XMS_ITS | Encounter Summary ---
Author Organization [facility] Address [address] [place] [address] Care Team Providers Care Platform Material Handler Manager Name Role Phone Eldon Koehler MD Primary Care Provider [phone] Reason for Visit * Reason Comments Hypothyroid Hyperlipidemia Encounter Details Date Type Department Care Team (Latest Contact Info) Description 05/15/2018 10:30 AM FABRICATOR ASSEMBLER METAL PRODUCTS Office Visit [facility] Internal Medicine [address] [address] Eldon Koehler MD [address] [place] [phone] Other hyperlipidemia (Primary Dx); Other specified hypothyroidism; Recurrent major depressive disorder, in partial remission; Other osteoarthritis involving multiple joints; Fibromyalgia; S/P bariatric surgery Social History Tobacco Use Types Packs/Day Years [...] Sign Reading Time Taken Comments Blood Pressure 130/70 05/15/2018 10:31 AM FABRICATOR ASSEMBLER [employer]ODUCTS Pulse 84 05/15/2018 10:31 AM FABRICATOR ASSEMBLER [employer] Temperature 36.9 ??C (98.4 ??F) 05/15/2018 10:[address] Respiratory Rate - - Oxygen Saturation 97% 05/15/2018 10:31 AM FABRICATOR ASSEMBLER [employer]ODUCTS Inhaled Oxygen Concentration - - Weight 101.2 kg (223 lb) 05/15/2018 10:31 AM FABRICATOR ASSEMBLER [employer]ODU[employer] Height 166.4 cm (5' 5.5 ) 05/15/2018 10:31 AM CS T Body Mass Index 36.54 05/15/2018 10:31 AM FABRICATOR ASSEMBLER [employer]ODU[employer] documented in this encounter Progress Notes * Eldon Koehler MD - 05/15/2018 4:33 PM CST Subjective: Winifred Rodriguez is a 67 y.o. female. Wt plateau Stress eating Bronchitis issues Still coughing Had z robby On cpap Fibromyalgia , with leg pain Chol doing well with Med Med reviewed Recent lab reviewed Patient Active Problem List Diagnosis Date Noted ??? Obesity (BMI 35.0-39.9 without comorbidity) 06/12/2017 [...] remission 06/08/2003 ??? Hyperlipemia 06/07/2003 Current Outpatient Prescriptions on File Prior to Visit Medication Sig Dispense Refill ??? albuterol HFA 90 mcg inhaler Take 2 Puffs by inhalation 4 times daily as needed for Shortness of Breath. 8.5 Gram 2 ??? atorvastatin (LIPITOR) 20 mg tablet Take 1 Tablet (20 mg) by mouth late in the day. 90 Tablet 3 ??? rOPINIRole (REQUIP) 2 mg Tablet TAKE 1 TABLET BY MOUTH DAILY AT BEDTIME 90 Tablet 3 ??? omeprazole (PriLOSEC) 20 mg Capsule, Delayed Release(E.C.) Take 1 capsule by mouth daily. 90 Capsule 3 ??? LYRICA 50 mg Capsule TAKE 1 CAPSULE BY MOUTH TWICE DAILY 180 Capsule 2 ??? levothyroxine 150 mcg tablet Take 1 Tablet (150 mcg) by mouth daily. 90 Tablet 3 ??? DULoxetine (CYMBALTA) 60 mg Capsule, Delayed Release(E.C.) Take 1 Capsule (60 mg) by mouth daily. 90 Capsule 2 ??? celecoxib (CeleBREX) 200 mg capsule Take 1 Capsule (200 mg) by mouth 2 times daily. 180 Capsule3 ??? montelukast (SINGULAIR) 10 mg tablet Take 1 Tab by mouth daily. (Patient taking differently: Take 10 mg by mouth 1 time daily as needed . ) 90 Tab 3 No current facility-administered medications on file prior [...] Injury of back ??? Obstructive sleep apnea (adult) (pediatric) cpap [...] ??? HX COLONOSCOPY ??? HX DIAGNOSTIC LAPAROSCOPY 1979's ??? HX KNEE REPLACEMENT Bilateral 2014, 2016 ??? HX ROTATOR CUFF REPAIR Right 06/12/2016 ??? HX SKIN BIOPSY ??? GA COLONOSCOPY FLX DX W/COLLJ SPEC WHEN PFRMD N/A 03/15/2015 COLONOSCOPY performed by Osei Sutton MD at [facility] ??? GA ESOPHAGOGASTRODUODENOSCOPY TRANSORAL DIAGNOSTIC N/A 01/21/2017 ESOPHAGOGASTRODUODENOSCOPY performed by Elizabeth Mcbride MD at [facility] OR ??? GA LAP, ORLY RESTRICT PROC, LONGITUDINAL GASTRECTOMY N/A 01/21/2017 GASTRECTOMY LONGITUDINAL LAPAROSCOPIC performed by Elizabeth Mcbride MD at [facility] OR Family History Problem Relation Age of Onset ??? Colon Cancer Mother ??? Stroke Father ??? Stroke Maternal Grandfather ??? Stroke Paternal Grandfather ??? Kidney Disease Brother ??? Healthy Brother ??? Healthy Brother Social History Substance Use Topics ??? Smoking status: Never Smoker ??? Smokeless tobacco: Never Used ??? Alcohol use Yes Comment: rare Review of Systems: During the review of systems, the following significant history is obtained from the patient: Review of Systems - General ROS wt plateau recent Psychological ROS: positive for - anxiety--family stress ongoing Endocrine ROS: negative for polyuria/polydipsia Respiratory ROS: negative for cough, shortness of breath, or wheezing Cardiovascular ROS: negative for chest pain or dyspnea on exertion Gastrointestinal ROS: negative for reflux, abdominal pain, change in bowel habits, or black or bloody stools Musculoskeletal ROS: positive for - joint pain Neurological ROS: negative for TIA or stroke symptoms Dermatological ROS: negative for skin rashes Exam/Objective: BP 130/70 Pulse 84 Temp 98.4 ??F (36.9 ??C) (Oral) Ht 5' 5.5 (1.664 m) Wt 101.2 kg (223 lb) SpO2 97% ? No BMI 36.54 kg/m?? General appearance: over wt nad Head: Normocephalic, without obvious abnormality, atraumatic Eyes: conjunctivae/corneas clear. PERRLA, EOM's intact. Lids appear normal. Ears: af level tms. No apparent lesions or masses. Hearing grossly normal. Nose: Nares normal. Septum midline. Mucosa normal. No drainage s. Throat: Lips, mucosa, palate, oropharynx, and tongue normal. . Oral mucosa unremarkable with non-inflamed posterior pharynx. [...] or generalized lymphadenopathy. Neck Ext no edema Tender areas le Mood stable Assessment and Plan: ASSESSMENT: ICD-10-CM ICD-9-CM 1. Other hyperlipidemia E78.49 272.4 COMPREHENSIVE METABOLIC PANEL CK CHOLESTEROL TOTAL COMPREHENSIVE METABOLIC PANEL CK CHOLESTEROL TOTAL 2. Other specified hypothyroidism E03.8 244.8 TSH TSH 3. Recurrent major depressive disorder, in partial remission F33.41 296.35 4. Other osteoarthritis involving multiple joints M15.8 715.89 5. Fibromyalgia M79.7 729.1 CBC WITH DIFFERENTIAL CBC WITH DIFFERENTIAL 6. S/P bariatric surgery Z98.84 V45.86 VITAMIN D 25 HYDROXY VITAMIN B12 LEVEL VITAMIN B6 LEVEL VITAMIN D 25 HYDROXY VITAMIN B12 LEVEL VITAMIN B6 LEVEL Try massage rx Discussed Thyroid cont med Chol con tmed bronchitius add trelegy sample Cont vit b12, d sleepapnea cont cpap Cont rls med dpen add wellbutrin Normal BMI Range: 18 & older: > or = 18.5 and < 25 Body mass index is 36.54 kg/m??. Abnormal high BMI: Patient counseled on lifestyle modifications including weight loss and daily exercise. Due mammo , bone dens pt to arrange PLAN: Orders Placed This Encounter ??? CBC WITH DIFFERENTIAL (Favorites) ??? COMPREHENSIVE METABOLIC PANEL (Favorites) ??? TSH (Favorites) ??? VITAMIN D 25 HYDROXY ??? VITAMIN B12 LEVEL (Chemistry) ??? CK (Chemistry) ??? CHOLESTEROL TOTAL ??? VITAMIN B6 LEVEL (Chemistry) ??? buPROPion HCl (WELLBUTRIN SR) 150 mg Sustained Release 12 hour tablet ??? qtltdfouzrq-aviubodfceeh-qaxmndquqd (TRELEGY ELLIPTA) 100-62.5-25 mcg Disk with Device Appropriate medications prescribed Appropriate patient instructions provided Follow-up as I have indicated. Medications and options explained to include common side effects. Understanding of medications, course, diagnosis, and expectations were expressed by patient/guardian. ICATOR ASSEMBLER MET[employer]ODUCTS documented in this encounter Plan of Treatment Upcoming Encounters Date Type Department Care Team (Late st Contact Info) Description 07/27/2024 9:40 AM CDT Office Visit [facility] Primary Care [facility] [address] [place] [address] [address] [place] [address] Eldon Koehler MD [address] [facility] [address] [place] [phone] documented as of this encounter Procedures Procedure Name Priority Date/Time Associated Diagnosis Comments CBC WITH DIFFERENTIAL Routine 04/07/2019 3:17 AM FABRICATOR ASSEMBLER [employer] Fibromyalgia VITAMIN D 25 HYDROXY Routine 04/07/2019 3:17 AM FABRICATOR ASSEMBLER [employer] S/P bariatric surgery TSH Routine 04/07/2019 3:17 AM FABRICATOR ASSEMBLER [employer] Other specified hypothyroidism VITAMIN B6 LEVEL Routine 04/07/2019 3:17 AM FABRICATOR ASSEMBLER [employer] S/P bariatric surgery VITAMIN B12 LEVEL Routine 04/07/2019 3:1 7 AM FABRICATOR ASSEMBLER METAL PRODUCTS S/P bariatric surgery CK Routine 04/07/2019 3:17 AM FABRICATOR ASSEMBLER [employer]ODU[employer] Other hyperlipidemia CHOLESTEROL TOTAL Routine 04/07/2019 3:1 7 AM FABRICATOR ASSEMBLER [employer]ODU[employer] Other hyperlipidemia COMPREHENSIVE METABOLIC PANEL Routine 04/07/2019 3:17 AM FABRICATOR ASSEMBLER [employer]ODU[employer] Other hyperlipidemia documented in this encounter Results * VITAMIN B6 LEVEL (04/07/2019 3:17 AM FABRICATOR ASSEMBLER [employer]) VITAMIN B6 12.1 2.1 - 21.7 ng/mL [facility] Comment: Vitamin supplementation within 24 hours prior to blood draw may affect the accuracy of results. This test was developed and its analytical performance characteristics have been determined by [facility]. It has not been cleared or approved by the FDA. This assay has been validated pursuant to the CLIA regulations and is used for clinical purposes. Test Performed at: [facility] [address] [place], [place] ??[phone] Alistair Mae M.D., Ph.D Blood 04/07/2019 3:17 AM FABRICATOR ASSEMBLER [employer]ODU[employer] Eldon Koehler MD CHEMISTRY ORDERABLES Performing Organization Address [facility] Co de Phone Number [facility] [address] [place] [address] * CHOLESTEROL TOTAL (04/07/2019 3:17 AM FABRICATOR ASSEMBLER MET[employer]ODUCTS) CHOLESTEROL 186 <200 mg/dL [facility] [employer] [facility] Comment: Test Performed at: [facility] [address] [place] ??[phone] Brent Lieberman D.O., MPH Blood 04/07/2019 3:17 AM FABRICATOR ASSEMBLER [employer]ODUCTS Eldon Koehler MD CHEMISTRY ORDERABLES Performing Organization Address [facility] de Phone Number [facility] [address] [place] [address] * CK (04/07/2019 3:17 AM FABRICATOR ASSEMBLER MET[employer]ODUCTS) CK 43 29 - 143 U/L [facility] Comment: Test Performed at: [facility] ??[phone] Brent Lieberman D.O., MPH Blood 04/07/2019 3:17 AM FABRICATOR ASSEMBLER MET[employer] PRODUCTS Eldon Koehler MD CHEMISTRY ORDERABLES Performing Organization Address [facility] Co de Phone Number [facility] [address] [place] [address] * VITAMIN B12 LEVEL (04/07/2019 3:17 AM FABRICATOR ASSEMBLER [employer]ODU[employer]) VITAMIN B12 502 200 - 1100 pg/mL [facility] Comment: Test Performed at: [facility] [id number] [place] ??[phone] Brent Lieberman D.O., MPH Blood 04/07/2019 3:17 AM FABRICATOR ASSEMBLER METAL PRODUCTS Eldon Koehler MD CHEMISTRY ORDERABLES Performing Organization Address [facility] de Phone Number [facility] [address] [place] [address] * VITAMIN D 25 HYDROXY (04/07/2019 3:17 AM FABRICATOR ASSEMBLER MET[employer]ODUCTS) Pathologist [facility] VITAMIN D, 25 OH, TOTAL 37 30 - 100 ng/mL [facility] Comment: Vitamin D Status ? 25-OH Vitamin D: Deficiency: ?<20 ng/mL Insufficiency: ? 20 - 29 ng/mL Optimal: ? > or = 30 ng/mL For 25-OH Vitamin D testing on patients on D2-supplementation and patients for whom quantitation of D2 and D3 fractions is required, the QuestAssureD(TM) 25-OH VIT D, (D2,D3), LC/MS/MS is recommended: order code 45017 (patients >2yrs). For more information on this test, go to: http://education.Hycrete/faq/BUG580 (This link is being provided for informational/educational purposes only.) Test Performed at: [facility] [address] [place] ??[phone] Brent Lieberman D.O., MPH Blood 04/07/2019 3:17 AM FABRICATOR ASSEMBLER MET[employer] PRODUCTS Eldon Koehler MD CHEMISTRY ORDERABLES Performing Organization Address [facility] Co de Phone Number [facility] [address] [place] [address] * TSH (04/07/2019 3:17 AM FABRICATOR ASSEMBLER METAL PRODUCTS) [facility] TSH 1.06 0.40 - 4.50 mIU/L [facility] Comment: Test Performed at: [facility] [address] [place] ??[phone] Brent Lieberman D.O., MPH Blood 04/07/2019 3:17 AM FABRICATOR ASSEMBLER MET[employer] PRODUCTS Eldon Koehler MD CHEMISTRY ORDERABLES [facility] [address] [place] [address] * COMPREHENSIVE METABOLIC PANEL (04/07/2019 3:17 AM FABRICATOR ASSEMBLER MET[employer]ODUCTS) GLUCOSE 92 65 - 99 mg/dL [facility] [employer] [facility] Comment:Fasting reference in terval BUN 14 7 - 25 mg/dL [facility] [employer] . [facility] CREATININE 0.82 0.50 - 0.99 mg/dL [facility] Comment: For patients >49 years of age, the reference limit for Creatinine is approximately 13% higher for people identified as -Vincentian. GFR 75 > OR = 60 mL/min/1 .73m2 [facility] GFR, 86 > OR = 60 mL/min/1 .73m2 [facility] [employer] . [facility] BUN/CREAT RATIO NOT APPLICABLE 6 - 22 (calc) [facility] SODIUM 141 135 - 146 mmol/L [facility] . [facility] POTASSIUM 4.2 3.5 - 5.3 mmol/L [facility] CHLORIDE 106 98 - 110 mmol/L [facility] . [facility] CO2 31 20 - 32 mmol/L [facility] CALCIUM 9.0 8.6 - 10.4 mg/dL [facility] . [facility] TOTAL PROTEIN 6.7 6.1 - 8.1 g/dL [facility] . [facility] ALBUMIN 3.9 3.6 - 5.1 g/dL [facility] [employer] . [facility] GLOBULIN 2.8 1.9 - 3.7 g/dL (calc) [facility] . [facility] ALBUMIN/GLOBULIN RATIO 1.4 1.0 - 2.5 (calc) [facility] . [facility] BILIRUBIN TOTAL 0.7 0.2 - 1.2 mg/dL [facility] . [facility] ALKALINE PHOSPHATASE 128 33 - 130 U/L [facility] [employer] [facility] AST 18 10 - 35 U/L [facility] [employer] . [facility] ALT 17 6 - 29 U/L [facility] . [facility] Comment: Test Performed at: [facility] [address] [place] ??[phone] Brent Lieberman D.O., MPH Blood 04/07/2019 3:17 AM FABRICATOR ASSEMBLER [employer]ODUCTS Eldon Koehler MD CHEMISTRY ORDERABLES [facility] [address] [place] [address] * (ABNORMAL) CBC WITH DIFFERENTIAL (04/07/2019 3:17 AM FABRICATOR ASSEMBLER [employer]ODU[employer]) WBC 7.0 3.8 - 10.8 Thousand/ uL [facility] RBC 4.47 3.80 - 5.10 Million/u L [facility] HEMOGLOBIN 12.7 11.7 - 15.5 g/dL [facility] HEMATOCRIT 39.8 35.0 - 45.0 % [facility] MCV 89.0 80.0 - 100.[address] [facility] MCH 28.4 27.0 - 33.0 pg [facility] MCHC 31.9(L) 32.0 - 36.0 g/dL [facility] RDW 12.8 11.0 - 15.0 % [facility] PLATELETS 315 140 - 400 Thousand/ uL [facility] MPV 10.9 7.5 - 12.[address] [facility] NEUTROPHIL ABSOLUTE 4,186 1,500 - 7,800 cells/uL [facility] LYMPHOCYTE ABSOLUTE 1,918 850 - 3,900 cells/uL [facility] MONOCYTE ABSOLUTE 525 200 - 950 cells/uL [facility] EOSINOPHIL ABSOLUTE 294 15 - 500 cells/uL [facility] BASOPHILS ABSOLUTE 77 0 - 200 cells/uL [facility] NEUTROPHIL 59.8 % [facility] LYMPHOCYTES 27.4 % [facility] MONOCYTE 7.5 % [facility] EOSINOPHILS 4.2 % [facility] BASOPHILS 1.1 % [facility] Comment: Test Performed at: [facility] ??[phone] Brent Lieberman D.O., MPH Blood 04/07/2019 3:17 AM FABRICATOR ASSEM[employer] Eldon Koehler MD HEMATOLOGY ORDERABLE S [facility] [address] [address] documented in this encounter Visit Diagnoses Diagnosis Other hyperlipidemia- Primary Other specified hypothyroidism Recurrent major depressive disorder, in partial remission Other osteoarthritis involving multiple joints Fibromyalgia Mylagia and myositis, unspecified S/P bariatric surgery Bariatric surgery status documented in this encounter Care Teams Platform Material Handler Manager Relationship Specialty Start Date End Date Eldon Koehler MD PCP - General 10/06/07 documented as of this encounter
--- OUTSIDE RECORDS SUMMARY | 2024-05-22 17:00 | XMS_ITS | Encounter Summary ---
Author Organization [facility] Address [address] [place] [address] Care Team Providers Care Temperature Logging Operator Name Role Phone Eldon Koehler MD Primary Care Provider [phone] Reason for Visit * Reason Comments Medication Refill Encounter Details Date Type Department Care Team (Late st Contact Info) Description 01/13/2018 Refill [facility] Internal Medicine [address] [phone] Delmis Akhtar, [address] [address] Other hyperlipidemia Social History Tobacco Use Types [...] * Telephone Encounter - Pearl Black - 01/14/2018 9:23 AM CDT EMILY 01/13/18 NOV 05/15/18 documented in this encounter Plan of Treatment Upcoming Encounters Date Type Department Care Team (Late st Contact Info) Description 07/27/2024 9:40 AM CDT Office Visit [facility] Primary Care [address] [place] [address] [place] [address] Eldon Koehler MD [address] [facility] [address] [place] [address] documented as of this encounter Visit Diagnoses Diagnosis Other hyperlipidemia documented in this encounter Care Teams Temperature Logging Operator Relationship Specialty Start Date End Date Eldon Koehler MD PCP - General 10/06/07 documented as of this encounter
--- OUTSIDE RECORDS SUMMARY | 2024-05-22 17:00 | XMS_ITS | Encounter Summary ---
Author Organization [facility] Address [address] [place]: Epic Prelude ADT [place] [address] Care Team Providers Care Patient Care Associate Name Role Phone Eldon Koehler MD Primary Care Provider [phone] Encounter Details Date Type Department Care Team (Latest Contact Info) Description 08/08/2020 Travel Social History Tobacco Use Types Packs/Day [...] week 04/30/2019 [facility] More than 4 times [...] or suspected to have Coronavirus / COVID-19? Yes 08/08/2020 10:57 AM CDT documented as of this encounter Plan of Treatment Upcoming Encounters Date Type Department Care Team (Late st Contact Info) Description 07/27/2024 9:40 AM CDT Office Visit [facility] Primary Care [address] [place] [address] Eldon Koehler MD [address] [place] [address] [place] [address] [place] [address] documented as of this encounter Visit Diagnoses Not on filedocumented in this encounter Additional Health Concerns Assessment Noted Time PHQ-9 Depression Total Score: 2 08/01/19 21 9:15 PM CDT documented as of this encounter Care Teams Patient Care Associate Relationship Specialty Start Date End Date Eldon Koehler MD PCP - General 10/06/07 documented as of this encounter
--- OUTSIDE RECORDS SUMMARY | 2024-05-22 17:00 | XMS_ITS | Encounter Summary ---
Author Organization [facility] Address [address] [place] [address] Care Team Providers Care [employer] Lieutenant Name Role Phone Eldon Koehler MD Primary Care Provider [phone] Encounter Details Date Type Department Care Team (Late st Contact Info) Description 11/15/2019 Orders Only [facility] Internal Medicine [address] [phone] Provider, Abstract NO ADDRESS ON FILE Social [...] often do you attend chur ch or islam services? More than 4 times per year 04/30/2019 Do you belong to any clubs o r organizations such as episcopalian groups, unions, fraternal or athletic groups, or [...] CDT Office Visit [facility] Primary Care [address] [place] [address] Eldon Koehler MD [address] [place] [address] [address] [place] [address] documented as of this encounter Procedures Procedure Name Priority Date/Time Associated Diagnosis Comments MRI SHOULDER WO CONTRAST BI Routine 11/12/2019 documented in this encounter Results * MRI SHOULDER WO CONTRAST BI (11/12/2019) Anatomical Region Laterality Modality Upper Extremity Other Abstract Provider MR ORDERABLES documented in this encounter Visit Diagnoses Not on filedocumented in this encounter Care Teams [employer] Lieutenant Relationship Specialty Start Date End Date Eldon Koehelr MD PCP - General 10/06/07 documented as of this encounter
--- OUTSIDE RECORDS SUMMARY | 2024-05-22 17:00 | XMS_ITS | Encounter Summary ---
Author Organization [facility] Address [address] [place] [address] Care Team Providers Care Scaler Name Role Phone Eldon Koehler MD Primary Care Provider [phone] Reason for Visit * Reason Onset Date Comments Medication Refill 08/04/2018 Encounter Details Date Type Department Care Team (Late st Contact Info) Description 08/04/2018 Refill [facility] Internal Medicine [address] [phone] Eldon Koehler MD [address] [place] [address] Social History Tobacco Use Types Packs/Day [...] encounter Miscellaneous Notes * Telephone Encounter - Renea Ledesma - 08/04/2018 9:55 AM CDT EMILY: 05/15/18 NOV: 09/11/18 LAST REFILL: 07/27/18 documented in this encounter Plan of Treatment Upcoming Encounters Date Type Department Care Team (Late st Contact Info) Description 07/27/2024 9:40 AM CDT Office Visit [facility] Primary Care [address] [place] [address] Eldon Koehler MD [address] [place] [address] [address] [place] [address] documented as of this encounter Visit Diagnoses Not on filedocumented in this encounter Care Teams Scaler Relationship Specialty Start Date End Date Eldon Koehler MD PCP - General 10/06/07 documented as of this encounter
--- OUTSIDE RECORDS SUMMARY | 2024-05-22 17:00 | XMS_ITS | Encounter Summary ---
Author Organization [facility] Address [address] [place] [address] Care Team Providers Care Motorsports Technician Name Role Phone Eldon Koehler MD Primary Care Provider [phone] Reason for Visit * Auth/Cert Specialty Diagnoses / Procedures Referred By Carmen villalobos Referred To Contact Perioperative Diagnoses Screening for colon cancer Family history of colon cancer Hx of colonic polyp Procedures COLONOSCOPY [facility] [address] [place] [address] Referral ID Status Reason Start Date Expiration Date Visits Re quested Visits Authorized [id number] 1 1 Encounter Details Date Type Department Care Team (Late st Contact Info) Description 08/08/2020 12:00 PM CDT - 08/08/2020 12:30 PM CDT Surgery [facility] [address] [place] [address] Osei Sutton MD [address] [facility] [id number] [place] [address] COLONOSCOPY Surgery Details Date/Time Status Location OR Service Patient Class Case Class Case Type Trauma Case? 08/08/2020 12:00 PM Posted [facility] GI 04 Gastroenterology Outpatient Elective No Panel 1 Procedure LRB Anes Op Region Wound Class Comments COLONOSCOPY N/A General Anus Surgeon Surgeon Role Service Panel Osei Sutton MD Primary Gastroenterology 1 Case Notes COVID scheduled by 08/04/20 Annemarie Gonzalez documented in this encounter Social History Tobacco Use Types Packs/Day Years [...] Sign Reading Time Taken Comments Blood Pressure 146/68 08/08/2020 11:46 AM CDT Pulse 93 08/08/2020 11:46 AM CDT Temperature 36.4 ??C (97.6 ??F) 08/08/2020 1 1:37 AM CDT Respiratory Rate 18 08/08/2020 11:4 6 AM CDT Oxygen Saturation 98% 08/08/2020 11: 46 AM CDT Inhaled Oxygen Concentration - - Weight 121.8 kg (268 lb 9.6 oz) 021 11:37 AM CDT Height 167.6 cm (5' 6 ) 08/08/2020 11:3 7 AM CDT Body Mass Index 43.35 08/08/2020 11:37 AM CDT documented in this encounter Discharge Instructions * Discharge Instructions* Osei Sutton MD - 08/08/2020 12:38 PM CDT Instructions after Colonoscopy After a colonoscopy it is normal to experience some minor ???gas pains?? because of the air that was introduced to your colon during the procedure. Tylenol will help to relieve any discomfort. You may not have a bowel movement for 1-3 days because of the colonoscopy prep. This is normal. DO NOT drink alcohol until tomorrow. DO NOT drive, operate machinery, make critical decisions until tomorrow. Limit activities that require coordination or balance for 24 hours. Resume your previous diet unless otherwise instructed. Resume your previous medications unless otherwise instructed. Notify your physician if you develop any of the following: ??? Severe pain ??? Fever of 101 degrees F ??? Large amount of bleeding, passing large blood clots, or black tarry stools ??? Redness or soreness at the IV site If tissue samples were taken during the procedure, you will notified by phone or mail with the results. If you have not been notified within two weeks, please call the office. Office Phone: [facility] [phone] Exchange: documented in this encounter Medications at Time of Discharge Medication Sig Dispensed Refills Start Date End Date OTHER mvi gummies for women over 50 Calcium with D3 gummies B12 gummies 1500mcg buPROPion HCL (WELLBUTRIN SR) 150 mg Sustained Release 12 hour tablet Take 1 Tablet (150 mg) by mouth daily. 90 Tablet 3 08/01/2020 10/10/2020 rOPINIRole (REQUIP) 0.5 mg tablet Take 0.5 mg by mouth late in the day. 01/01/2021 pregabalin (LYRICA) 50 mg CapsuleIndications:Fibr omyalgia Take 1 Capsule (50 mg) by mouth every 12 hours. 180 Capsule 2 07/04/2020 03/29/2021 DULoxetine (Cymbalta) 60 mg Capsule, Delayed Release(E.C.) Take 1 Capsule (60 mg) by mouth daily. 90 Capsule 3 07/04/2020 03/29/2021 azithromycin (Zithromax Z-Ollie) 250 mg tablet Take 2 tablets by mouth the first day and 1 tablet days 2-5. 6 Tablet 04/24/2020 12/05/2020 metoprolol succinate (Toprol XL) 25 mg Extended Release 24 hour tablet Take 1 Tablet (25 mg) by mouth daily. 90 Tablet 3 03/10/2020 03/02/2021 atorvastatin (LIPITOR) 20 mg tabletIndications:Other hyperlipidemia TAKE 1 TABLET BY MOUTH LATE IN THE DAY 90 Tablet 3 03/09/2020 03/29/2021 omeprazole (PriLOSEC) 20 mg Capsule, Delayed Release(E.C.) TAKE 1 CAPSULE BY MOUTH DAILY 90 Capsule 3 01/21/2020 03/29/2021 LEVOTHYROXINE 150 mcg tablet TAKE 1 TABLET BY MOUTH DAILY 90 Tablet 3 01/21/2020 03/29/2021 rOPINIRole (REQUIP) 2 mg Tablet TAKE 1 TABLET BY MOUTH DAILY AT BEDTIME 90 Tablet 3 12/27/2019 01/01/2021 celecoxib (CeleBREX) 200 mg capsule TAKE 1 CAPSULE BY MOUTH TWO TIMES DAILY 180 Capsule 3 08/30/2019 03/29/2021 albuterol HFA 90 mcg inhaler Take 2 Puffs by inhalation 4 times daily as needed for Shortness of Breath. 8.5 Gram 2 05/08/2018 02/27/2021 documented as of this encounter H&P Notes * Osei Sutton MD - 08/08/2020 12:18 PM CDT GI H&P PRE PROCEDURE EVALUATION - Colonoscopy DATE: 08/08/2020 HPI: This is a 70 y.o. female patient scheduled for Colonoscopy for family history of colon cancer,personal history of adenomatous polyps. 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 Hyperlipemia 06/07/2003 Past Medical History: Diagnosis Date ??? Arthropathy, [...] 1979's ??? HX KNEE REPLACEMENT Bilateral 2014, 2015 ??? HX ROTATOR CUFF REPAIR Right 06/12/2016 ??? HX SKIN BIOPSY ??? NV COLONOSCOPY FLX DX W/COLLJ SPEC WHEN PFRMD N/A 03/15/2015 COLONOSCOPY performed by Osei Sutton MD at [facility] GI LAB ??? NV ESOPHAGOGASTRODUODENOSCOPY TRANSORAL DIAGNOSTIC N/A 01/21/2017 ESOPHAGOGASTRODUODENOSCOPY performed by Elizabeth Mcbride MD at [facility] OR ??? NV LAP, ORLY RESTRICT PROC, LONGITUDINAL GASTRECTOMY N/A 01/21/2017 GASTRECTOMY LONGITUDINAL LAPAROSCOPIC performed by Elizabeth Mcbride MD at [facility] OR Medications Prior to Admission Medication Sig Dispense Refill Last Dose ??? buPROPion HCL (WELLBUTRIN SR) 150 mg Sustained Release 12 hour tablet Take 1 Tablet (150 mg) bymouth daily. 90 Tablet 3 Past Week at Unknown time ??? OTHER mvi gummies for women over 50 Calcium with D3 gummies B12 gummies 1500mcg Past Week at Unknown time ??? rOPINIRole (REQUIP) 0.5 mg tablet Take 0.5 mg by mouth late in the day. Past Week at Unknown time ??? pregabalin (LYRICA) 50 mg Capsule Take 1 Capsule (50 mg) by mouth every 12 hours. 180 Capsule 2Past Week at Unknown time ??? DULoxetine (Cymbalta) 60 mg Capsule, Delayed Release(E.C.) Take 1 Capsule (60 mg) by mouth daily. 90 Capsule 3 Past Week at Unknown time ??? cyclobenzaprine (FLEXERIL) 10 mg tablet Take 1 Tablet (10 mg) by mouth daily at bedtime. 30 Tablet 1 Past Week at Unknown time ??? metoprolol succinate (Toprol XL) 25 mg Extended Release 24 hour tablet Take 1 Tablet (25 mg) bymouth daily. 90 Tablet 3 Past Week at Unknown time ??? atorvastatin (LIPITOR) 20 mg tablet TAKE 1 TABLET BY MOUTH LATE IN THE DAY 90 Tablet 3 Past Week at Unknown time ??? omeprazole (PriLOSEC) 20 mg Capsule, Delayed Release(E.C.) TAKE 1 CAPSULE BY MOUTH DAILY 90 Capsule 3 Past Week at Unknown time ??? LEVOTHYROXINE 150 mcg tablet TAKE 1 TABLET BY MOUTH DAILY 90 Tablet 3 Past Week at Unknown time ??? rOPINIRole (REQUIP) 2 mg Tablet TAKE 1 TABLET BY MOUTH DAILY AT BEDTIME 90 Tablet 3 Past Week at Unknown time ??? celecoxib (CeleBREX) 200 mg capsule TAKE 1 CAPSULE BY MOUTH TWO TIMES DAILY 180 Capsule 3 Past Week at Unknown time ??? albuterol HFA 90 mcg inhaler Take 2 Puffs by inhalation 4 times daily as needed for Shortness of Breath. 8.5 Gram 2 > Month at Unknown time Allergies Allergen Reactions ??? Nickel Hives ??? Clindamycin Rash and Itching ??? Codeine Nausea and Vomiting ??? Nsaids (Non-Steroidal Anti-Inflammatory Drug) Other (See Comments) S/P SLEEVE GASTRECTOMY Social History Tobacco Use ??? Smoking status: Never Smoker ??? Smokeless tobacco: Never Used Substance Use Topics ??? Alcohol use: Never Family History Problem Relation Name Age of Onset ??? Colon Cancer Mother ??? Stroke Father ??? Stroke Maternal Grandfather ??? Stroke Paternal Grandfather ??? Kidney Disease Brother HIERO ??? Healthy Brother SHEREEN ??? Healthy Brother BEENA Head: Normal Lungs: Clear to auscultation bilaterally Airway: No apparent abnormalities Heart: Regular rate and rhythm Abdomen: soft, nontender, nondistended, normal bowel sounds Neurologic: alert and oriented x 3 ASA Classification: per anesthesiologist Informed Consent: The patient was informed of the indications for the procedure, the risks/benefits and the alternatives, and agreed to proceed. In particular, the patient was informed of the risk of perforation/(1:1000), medication side effect, infection, a missed lesion, or incomplete examination. In the case of dilatation, the patient was informed of the risk of perforation (1 to 5%). There was nothing onhistory or physical examination precluding the procedure. IMPRESSION & PLAN: Indications for procedure as noted in HPI. Will proceed with the above mentioned procedure(s) as scheduled. Osei Sutton MD documented in this encounter Procedure Notes * Osei Sutton MD - 08/08/2020 12:38 PM CDTAssociated Order(s): COLONOSCOPY REPORT [facility] Patient Name: Winifred Rodriguez Procedure Date: [...] electronically. Number of Addenda: 0 [phone] [facility]; [place] [address] * Bridgett Cain RN - 2020 1:49 PM CDT [facility] Nurse Assessment Patient: Winifred Rodriguez : 1950 Endoscopist: Surgeon(s): Osei Sutton MD Upcoming Procedure: Procedure to be Performed: Procedure(s): COLONOSCOPY Procedure Date/Time: 08/08/2020 at 1200 Diagnosis/Indication for procedure: Pre-Op Diagnosis Codes: * Screening for colon cancer [Z12.11] * Family history of colon cancer [Z80.0] * Hx of colonic polyp [Z86.010] Location: [facility] Referring Physician: Kazdan,Eldon M Patient's BMI: Body mass index is 43.58 kg/m??. Is patient a candidate for offsite location? no Medications Type of prep given: CSP Anticoagulants: no none Relevant prior procedure/pathology: Procedure: colonoscopy Physician: Herman Date: 03/2015 Location: Last Pathology: FINAL DIAGNOSIS LARGE INTESTINE, ASCENDING COLON POLYP, BIOPSY: - TUBULAR ADENOMA. Past Surgical History: Past Surgical History: Procedure Laterality Date ??? HX BACK SURGERY 1990, 2010 Spinal fusion L5-S1, Spinal fusion L4-L5 ??? HX CATARACT REMOVAL Bilateral 08/2017 ??? HX CHOLECYSTECTOMY 1997 ??? HX COLONOSCOPY ??? HX DIAGNOSTIC LAPAROSCOPY ??? HX KNEE REPLACEMENT Bilateral 2014, 2015 ??? HX ROTATOR CUFF REPAIR Right 06/12/2016 ??? HX SKIN BIOPSY ??? NV COLONOSCOPY FLX DX W/COLLJ SPEC WHEN PFRMD N/A 03/15/2015 COLONOSCOPY performed by Osei Sutton MD at [facility] GI LAB ??? NV ESOPHAGOGASTRODUODENOSCOPY TRANSORAL DIAGNOSTIC N/A 01/21/2017 ESOPHAGOGASTRODUODENOSCOPY performed by Elizabeth Mcbride MD at [facility] OR ??? NV LAP, ORLY RESTRICT PROC, LONGITUDINAL GASTRECTOMY N/A 01/21/2017 GASTRECTOMY LONGITUDINAL LAPAROSCOPIC performed by Elizabeth Mcbride MD at [facility] OR Past Medical History: Past Medical History: Diagnosis Date ??? Arthropathy, [...] of lipoid metabolism ??? Unspecified essential hypertension No current facility-administered medications on file prior to encounter. Current Outpatient Medications on File Prior to Encounter Medication Sig Dispense Refill ??? OTHER mvi gummies for women over [...] TWO TIMES DAILY 180 Capsule 3 ??? albuterol HFA 90 mcg inhaler Take 2 Puffs by inhalation 4 times daily as needed for Shortness of Breath. 8.5 Gram 2 documented in this encounter OR Notes * Brenda-OP - Bridgett Cain RN - 2020 1:47 PM CDT ?Routine Pre-Anesthesia Protocol for GI Lab Procedures [facility] Approved by: [facility] - Medical Executive Committee Approval Date: 11/03/2019 ORDERS ARE ENTERED ???PER PROTOCOL?? Enter the protocol in the patient???s electronic health record using [employer]-V[employer]: .anestprotocolgilab NURSING ORDERS: Monitoring: o Obtain and record vital signs o Continuous vital signs (Non-invasive blood pressure, pulse oximetry and cardiac monitoring) for all inpatients and all patients currently taking beta-blockers o Place #20 gauge IV in non-dominant, non-operative or not otherwise excluded upper extremity o Contact responsible anesthesiologist if recommending use of a #22 gauge IV o See medication section for local Anesthetic to use to initiate IV LABORATORY ORDERS: Screening Protocol: o Urine bHCG (serum if necessary) Female of menses, or age > 12 y/o Point of Care Testing: FOR PATIENTS WITH A HISTORY OF DIABETES, RECEIVING INSULIN, OR EXHIBITING SIGNS AND SYMPTOMS OF HYPOGLYCEMIA. o POC glucose on initial assessment o POC glucose every 4 hours if NPO o POC glucose within 30 minutes of discharge or transfer to another unit (the time based intra-procedure POC check may be deferred during short procedures at the discretion of the provider) o POC for any patient exhibiting signs and symptoms of hypoglycemia o If POC Glucose results are critical, do not delay treatment. If appropriate, may confirm POC with: Nursing Only [id number] (this lab can be obtained at no cost to the patient when confirming a criticalhigh or critical low POC glucose MEDICATION ORDERS: o Local Anesthetic to use to initiate IV line: Lidocaine 2% 0.3mL intradermal ONE TIME to numb areaof IV catheter insertion PRN. IV Fluid - Adult patients (age 18 years or greater): o Lactated ringer???s solution to infuse at 125mL/hr, may discontinue upon discharge from procedurearea o Patient specific modification as indicated: ; If patient is found to have a serum creatinine >2 or history of renal failure, RN may change fluid to NS at 10ml/hr Contact provider to consider dextrose containing fluids for: o NPO patients who have received PO or injectable antihyperglycemic agents and glucose is less anbn343 mg/dl o NPO patients who have NOT received PO or injectable antiHYPERglycemic agents and POC glucose is less than 70 mg/dL. o When receiving report on an inpatient, confirm if patient is receiving dextrose containing fluidsto prevent hypoglycemia. Communicate with the anesthesiologist and request glucose containing fluids be continued or added to intraoperative Fluids. o Any time a patient???s enteral or parenteral nutrition is interrupted for longer than four hours and POC glucose or serum glucose is less than 100 mg/dL contact provider for dextrose containing fluids o Notify provider for any POC glucose or serum glucose less than 70 mg/dL. RESCUE MEDICATION ORDERS - entered by the Pharmacist political science professor RESCUE ORDERS - entered by the Pharmacist or the flaker tender Orders Patient has IV access and UNCONCIOUS, UNWILLING to swallow or NPO Glucose Level Treatment 40-69 mg/dL Dextrose 50% IV, give 12.5 grams (25 ml), IV push ONE TIME Less than 40 mg/dL Dextrose 50% IV, give 25 grams (50 ml), IV push ONE TIME Patient has no IV access, patient UNCONCIOUS, unable to swallow or NPO Glucose Level Treatment Less than 70 mg/dL Administer IM GLUCAGON 1 mg one time. After administration of glucagon is complete insert peripheral IV and notify physician. Patient is CONCIOUS and able to swallow and no longer NPO Glucose Level Treatment 40-69 mg/dL Give 15 gram food choice such as: Regular soda (6 oz), Apple juice (4 oz), or 1/2 cup regular jello Less Than 40 mg/dL Give 30 gram food choice such as: Regular soda (12 oz), Apple juice (8 oz), or 1cup regular jello Nursing Communication for Subsequent Care: ??? Check POC glucose 15 minutes after rescue. ??? Recheck and retreat every 15 minutes until blood glucose is greater than or equal to 70 mg/dL. ??? Once POC glucose result is 70 mg/dL or greater: o Check POC glucose every 30 minutes for 3 occurrences o Resume previous POC Glucose check orders. After Hypoglycemic Symptoms Subside, Give a Snack or Ask Provider for Dextrose Containing Fluids SNACK CHOICES: 1 carb and 1 fat servin saltine crackers and 2 teaspoons peanut butter; or 1 slice of bread and 2 teaspoons peanut butter; or 1 oz cheese and 6 saltine crackers; or 1 cup 2% milk and 6 saltine crackers. documented in this encounter Plan of Treatment Upcoming Encounters Date Type Department Care Team (Late st Contact Info) Description 07/27/2024 9:40 AM CDT Office Visit [facility] [id number] [place] [address] Eldon Koehler MD [address] [place] [address] [address] [place] [address] documented as of this encounter Procedures Procedure Name Priority Date/Time Associated Diagnosis Comments COLONOSCOPY REPORT 08/08/2020 12 :38 PM CDT COLONOSCOPY 08/08/2020 12:00 PM CDT Screening for colon cancer Family history of colon cancer Hx of colonic polyp Case Notes COVID scheduled by 08/04/20 Annemarie Gonzalez documented in this encounter Results * COLONOSCOPY REPORT (08/08/2020 12:38 PM CDT) Narrative Procedure Note Osei Sutton MD - 08/08/2020 12:38 PM CDT [facility] Patient Name: Winifred Rodriguez Procedure Date: [...] of Addenda: [address]; [place] [address] Osei Sutton MD GI PROCEDURE ORDERAB LES * 2019 NOVEL CORONAVIRUS (COVID-19) PCR DETECTION (08/04/2020 8:36 AM CDT) COVID-19 PCR NOT DETECTED Not Detected 08/06/19 12:10 PM CDT [facility] PERFORMING LAB [facility] 08/05/2020 12:10 PM CDT [facility] [employer] [facility] Upper Respiratory ENTIRE NASOPHARYNX / Unknown Collection / Unknown 08/04/2020 8:36 AM CDT 08/04/2020 11:01 AM CDT Narrative [facility] - 08/05/2020 12:10 PM CDT This test has been authorized by the FDA under an Emergency Use Authorization for use by authorized laboratories.?? This test has been validated in accordance with the FDA's guidance regarding Coronavirus Disease-2019 testing.?? Optimum specimen types and timing for peak viral levels during infection have not been determined.?? A negative RT-PCR result does not rule out infection with the 2019-Novel Coronavirus. Osei Sutton MD MICROBIOLOGY - [facility] AL ORDERABLES [facility]# [id number] [address] [place] [id number] documented in this encounter Visit Diagnoses Diagnosis Preop testing- Primary Preoperative examination, unspecified Screening for colon cancer Special screening for malignant neoplasms, colon Family history of colon cancer Family history of malignant neoplasm of gastrointestinal tract Hx of colonic polyp Personal history of colonic polyps documented in this encounter Administered Medications Inactive Administered Medications - up to 3 most recent administrations Medication Order MAR Action Action Date Dose Rate Site lactated ringers infusion IV, at 125 mL/hr, PRE-PROCEDURE CONTINUOUS, Starting on Fri08/08/20 at 1145, Until Fri08/08/20 at 1510, Routine, Pre-Procedure Restarted 08/08/2020 12:37 PM CDT New Bag 08/08/2020 11:51 AM CDT 125 mL/hr documented in this encounter Active and Recently Administered Medications Times are shown in CDT. Continuous Medication Order 08/06/2020 08/07/2020 08/08/2020 lactated ringers infusion IV, at 125 mL/hr, PRE-PROCEDURE CONTINUOUS, Starting on Fri08/08/20 at 1145, Until Fri08/08/20 at 1510, Routine, Pre-Procedure 1151 (New Bag - Prov ider: Eliza Menjivar RN)1236 (Paused - Provider: Faby Brock CRNA - Comment: Switch to gravity)1237 (Restarted - Provider: Faby Brock CRNA)1250 (Stopped - Provider: Uzma Coello RN) documented in this encounter Additional Health Concerns Assessment Noted Time PHQ-9 Depression Total Score: 2 08/01/19 21 9:15 PM CDT documented as of this encounter Care Teams Motorsports Technician Relationship Specialty Start Date End Date Eldon Koehler MD PCP - General 10/06/07 documented as of this encounter
--- OUTSIDE RECORDS SUMMARY | 2024-05-22 17:00 | XMS_ITS | Encounter Summary ---
Author Organization [facility] Address [address] [place] [address] Care Team Providers Care Shot Bagger Name Role Phone Eldon Koehler MD Primary Care Provider [phone] Reason for Visit * Reason Onset Date Comments other 06/08/2019 bariatric fu (yr 2) Encounter Details Date Type Department Care Team ([facility] st Contact Info) Description 06/08/2019 Telephone [facility] - [address] [place] [address] Elizabeth Mcbride MD [address] [place] [address] [address] [place] [address] other (bariatric fu (yr2)) Social History Tobacco Use Types Packs/Day Years [...] encounter Miscellaneous Notes * Telephone Encounter - [address] - 06/08/2019 12:29 PM CST LMOVM of patient preferred phone number requesting that the patient return my call. The patient is due for a 2 year follow up appointment with Dr. Gomez. Follow up letter was also mailed to the patient today. [address] Bariatric Clinical Reviewer R ASSEMBLER documented in this encounter Plan of Treatment Upcoming Encounters Date Type Department Care Team (Late st Contact Info) Description 07/27/2024 9:40 AM CDT Office Visit [facility] Primary Care [id number] [place] [address] Eldon Koehler MD [address] [place] [address] [address] [place] [address] documented as of this encounter Visit Diagnoses Not on filedocumented in this encounter Care Teams Shot Bagger Relationship Specialty Start Date End Date Eldon Koehler MD PCP - General 10/06/07 documented as of this encounter
--- OUTSIDE RECORDS SUMMARY | 2024-05-22 17:00 | XMS_ITS | Encounter Summary ---
Author Organization [facility] Address [address] [place] [address] Care Team Providers Care Supervisor Decorating Name Role Phone Eldon Koehler MD Primary Care Provider [phone] Reason for Visit * Reason Comments Cholesterol Problem Thyroid Disorder (office visit) Encounter Details Date Type Department Care Team (Latest Contact Info) Description 10/07/2019 9:15 AM CDT Video Visit [facility] Internal Medicine [address] [address] Eldon Koehler MD [address] [place] [phone] Fibromyalgia (Primary Dx); Recurrent major depressive disorder, in partial remission; Other specified hypothyroidism; Other hyperlipidemia; S/P bariatric surgery; Prediabetes; Memory loss; Other osteoarthritis involving multiple joints; Vitamin B12 deficiency (non anemic) Social History Tobacco Use Types Packs/Day Years [...] week 04/30/2019 How often do you attend [facility] or mandaen services? More than 4 times [...] Sign Reading Time Taken Comments Blood Pressure 128/79 10/07/2019 8:52 AM CDT Pulse 84 10/07/2019 8:52 AM CDT Temperature 36.6 ??C (97.9 ??F) 10/07/2019 8:52 AM CD T Respiratory Rate 16 10/07/2019 8:52 AM CDT Oxygen Saturation - - Inhaled Oxygen Concentration - - Weight 112.5 kg (248 lb) 10/07/2019 8:52 AM CDT Height 167.6 cm (5' 6 ) 10/07/2019 8:52 AM CDT Body Mass Index 40.03 10/07/2019 8:52 AM CDT documented in this encounter Progress Notes * Eldon Koehler MD - 10/07/2019 9:13 AM CDT This encounter was completed via two-way synchronous audio and video communication. Patient expressed understanding that using technology outside of [facility] has higher potential tointroduce privacy risks: Not Applicable Patient's identity confirmed yes Patient gave verbal consent to have these services billed to their insurance and expressed understanding that co-insurance and deductible may apply: yes Patient Active Problem List Diagnosis Code ??? [...] ??? Obesity (BMI 35.0-39.9 without comorbidity) E66.9 BP 128/79 Pulse 84 Temp 97.9 ??F (36.6 ??C) (Oral) Resp 16 Ht 5' 6 (1.676 m) Wt 112.5 kg(248 lb) BMI 40.03 kg/m?? General appearance: over wt nad Head: Normocephalic, without obvious abnormality Eyes: conjunctivae/corneas clear. Lids appear normal. Ears: Hearing grossly normal. Nose: Nares normal. Septum midline. Throat: Lips, normal. Neck: no visible nodules on video Lungs: does not appear short of breath Heart: no neck vein prominence noted no cyanosis noted Abdomen: NA Skin: Skin color, texture face Lymphatics: no adenopathy noted neck Mood stable ASSESSMENT: Encounter Diagnoses Name Primary? Recurrent major depressive disorder, in partial remission ??? Fibromyalgia Yes ??? Other specified hypothyroidism ??? Other hyperlipidemia ??? S/P bariatric surgery ??? Prediabetes ??? Memory loss ??? Other osteoarthritis involving multiple joints ??? Vitamin B12 deficiency (non anemic) memory issues ct head ordered occ falls reviewed depn ok with med continue predm stable Chol better Low b12 add otc, monitor Thyroid cont med .Normal BMI Range: 18 & older: > or = 18.5 and < 25 Body mass index is 40.03 kg/m??. Abnormal high BMI: Patient counseled on lifestyle modifications including weight loss and daily exercise. DEPRESSION PLAN OF CARE Her antidepressant medication was reviewed Health Maintenance Topic Date Due ??? OSTEOPOROSIS SCREENING 2017 ??? BREAST CANCER SCREENING 11/15/2017 ??? PNEUMOCOCCAL VACCINE 65+ YEARS (2 of 2 - PPSV23) 04/13/2019 ??? Colorectal Cancer Screening 03/15/2025 ??? INFLUENZA VACCINE Completed ??? ZOSTER VACCINE Completed mammo Bone dens ordered Social distancing reviewed PLAN: Orders Placed This Encounter ??? CBC WITH DIFFERENTIAL ??? COMPREHENSIVE METABOLIC PANEL ??? HEMOGLOBIN A1C ??? LIPID PANEL ??? TSH ??? VITAMIN B12 LEVEL documented in this encounter Plan of Treatment Upcoming Encounters Date Type Department Care Team (Late st Contact Info) Description 07/27/2024 9:40 AM CDT Office Visit [facility] Primary Care [address] [address] Eldon Koehler MD [address] [place] [phone] Scheduled Orders Name Type Priority Associated Diagnoses Orde r Schedule CBC WITH DIFFERENTIAL Lab Routine Fibromyalgia Expected: 02/07/2020, Expires: 10/06/2020 COMPREHENSIVE METABOLIC PANEL Lab Routine Other hyperlipidemia Expected: 02/07/2020, Expires: 10/06/2020 HEMOGLOBIN A1C Lab Routine Prediabetes Expected: 02/07/2020, Expires: 10/06/2020 LIPID PANEL Lab Routine Other hyperlipidemia Expected: 02/07/2020, Expires: 10/06/2020 TSH Lab Routine Other hyperlipidemia Expected: 02/07/2020, Expires: 10/06/2020 VITAMIN B12 LEVEL Lab Routine Vitamin B12 deficiency (non anemic) Expected: 02/07/2020, Expires: 10/06/2020 documented as of this encounter Procedures Procedure Name Priority Date/Time Associated Diagnosis Comments MAMMO SCREENING BILAT Routine 11/04/2019 XR DEXA BONE DENSITY 2 SITES Routine 11/04/2019 documented in this encounter Results * XR DEXA BONE DENSITY 2 SITES (11/04/2019) Anatomical Region Laterality Modality Other Abstract Provider DIAGNOSTIC IMAGING O RDERABLES * MAMMO SCREENING BILAT (11/04/2019) Anatomical Region Laterality Modality Breast Bilateral Other Abstract Provider MAMMO ORDERABLES documented in this encounter Visit Diagnoses Diagnosis Fibromyalgia- Primary Mylagia and myositis, unspecified Recurrent major depressive disorder, in partial remission Other specified hypothyroidism Other hyperlipidemia S/P bariatric surgery Bariatric surgery status Prediabetes Other abnormal glucose Memory loss Other osteoarthritis involving multiple joints Vitamin B12 deficiency (non anemic) Other B-complex deficiencies documented in this encounter Care Teams Supervisor Decorating Relationship Specialty Start Date End Date Eldon Koehler MD PCP - General 10/06/07 documented as of this encounter
--- OUTSIDE RECORDS SUMMARY | 2024-05-22 17:00 | XMS_ITS | Encounter Summary ---
Author Organization [facility] Address [address] [place] [address] Care Team Providers Care Retirement Plan Counselor Name Role Phone Eldon Koehler MD Primary Care Provider [phone] Reason for Visit * Reason Comments Elevated Blood Pressure Encounter Details Date Type Department Care Team (Latest Contact Info) Description 12/24/2019 9:45 AM CDT Office Visit [facility] Internal Medicine [address] [address] Eldon Koehler MD [address] [place] [phone] Other hyperlipidemia (Primary Dx); Prediabetes; Recurrent major depressive disorder, in partial remission; Fibromyalgia; S/P bariatric surgery; Vitamin B12 deficiency (non anemic); Vitamin D deficiency Social History Tobacco Use Types Packs/Day Years [...] often do you attend [facility] or episcopal services? More than 4 times [...] Sign Reading Time Taken Comments Blood Pressure 126/72 12/24/2019 9:37 AM CDT Pulse 90 12/24/2019 9:37 AM CDT Temperature 36.7 ??C (98 ??F) 12/24/2019 9:37 AM CDT Respiratory Rate - - Oxygen Saturation 96% 12/24/2019 9:37 AM CDT Inhaled Oxygen Concentration - - Weight 121.1 kg (267 lb) 12/24/2019 9:37 AM CDT Height 166.4 cm (5' 5.5 ) 12/24/2019 9:37 AM CDT Body Mass Index 43.76 12/24/2019 9:37 AM CDT documented in this encounter Progress Notes * Eldon Koehler MD - 12/24/2019 9:59 AM CDT Subjective: Winifred Rodriguez is a 69 y.o. female. hpi Stress issues home bp high at home Multiple readings Wt up Memory same Vertigo issues noted worse with anxiety Head ct ok revewed Rotator cuff tear shoulder seeing ortho On cpap Med reviewed Recent lab reviewed Patient [...] to Visit Medication Sig Dispense Refill ??? pregabalin (LYRICA) 50 mg Capsule Take 1 Capsule (50 mg) by mouth every 12 hours. 180 Capsule 2 ??? cyclobenzaprine (Flexeril) 10 mg tablet Take 1 Tablet (10 mg) by mouth daily at bedtime. 30 Tablet 1 ??? celecoxib (CeleBREX) 200 mg capsule TAKE 1 CAPSULE BY MOUTH TWO TIMES DAILY 180 Capsule 3 ??? DULoxetine (Cymbalta) 60 mg Capsule, Delayed Release(E.C.) Take 1 Capsule (60 mg) by mouth daily. 90 Capsule 3 ??? atorvastatin (LIPITOR) 20 mg tablet TAKE 1 TABLET BY MOUTH LATE IN THE DAY 90 Tablet 3 ??? omeprazole (PriLOSEC) 20 mg Capsule, Delayed Release(E.C.) TAKE 1 CAPSULE BY MOUTH DAILY 90 Capsule 3 ??? levothyroxine 150 mcg tablet Take 1 Tablet (150 mcg) by mouth daily. 90 Tablet 3 ??? eisolwvpcvf-tjozdwguuqzv-mozoroecme (TRELEGY ELLIPTA) 100-62.5-25 mcg Disk with Device Take 1 Puff by inhalation daily. 3 Each 3 ??? albuterol HFA 90 mcg inhaler Take 2 Puffs by inhalation 4 times daily as needed for Shortness of Breath. 8.5 Gram 2 ??? montelukast (SINGULAIR) 10 mg tablet Take 1 Tab by mouth daily. (Patient taking differently: Take 10 mg by mouth 1 time daily as needed . ) 90 Tab 3 ??? [DISCONTINUED] celecoxib (CeleBREX) 200 mg capsule Take 1 Capsule (200 mg) by mouth 2 times daily. 180 Capsule 3 ??? traZODone (DESYREL) 50 mg tablet Take 1 Tablet (50 mg) by mouth daily at bedtime. 30 Tablet 3 ??? rOPINIRole (REQUIP) 2 mg Tablet TAKE 1 TABLET BY MOUTH DAILY AT BEDTIME 90 Tablet 3 No current facility-administered medications on file [...] Right 06/12/2016 ??? HX SKIN BIOPSY ??? PA COLONOSCOPY FLX DX W/COLLJ SPEC WHEN PFRMD N/A 03/15/2015 COLONOSCOPY performed by Osei Sutton MD at [facility] ??? PA ESOPHAGOGASTRODUODENOSCOPY TRANSORAL DIAGNOSTIC N/A 01/21/2017 ESOPHAGOGASTRODUODENOSCOPY performed by Elizabeth Mcbride MD at [facility] ??? PA LAP, ORLY RESTRICT PROC, LONGITUDINAL GASTRECTOMY N/A 01/21/2017 GASTRECTOMY LONGITUDINAL LAPAROSCOPIC performed by Elizabeth Mcbride MD at [facility] Family History Problem Relation Name Age of Onset ??? Colon Cancer Mother ??? Stroke Father ??? Stroke Maternal Grandfather ??? Stroke Paternal Grandfather ??? Kidney Disease Brother HIERO ??? Healthy Brother SHEREEN ??? Healthy Brother BEENA Social History Tobacco Use ??? Smoking status: Never Smoker ??? Smokeless tobacco: Never Used Substance Use Topics ??? Alcohol use: Never Frequency: Never Binge frequency: Never Review of Systems: During the review of systems, the following significant history is obtained from the patient: Review of Systems - General ROS wt up Psychological ROS: positive for - anxiety--family stress [...] ROS: negative for skin rashes Exam/Objective: BP 126/72 Pulse 90 Temp 98 ??F (36.7 ??C) Ht 5' 5.5 (1.664 m) Wt 121.1 kg (267 lb) SpO2 96% BMI 43.76 kg/m?? General appearance: over wt nad Head: Normocephalic, without obvious abnormality, atraumatic Eyes: conjunctivae/corneas clear. PERRLA, EOM's intact. Lids appear normal. Ears: normal TM's (shiny without retraction) and external ear canals AU. No apparent lesions or masses. Hearing grossly normal. Nose: Nares normal. Septum midline. Mucosa normal. No drainage . Throat: Lips, mucosa, palate, oropharynx, and tongue normal.. Oral mucosa unremarkable with non-inflamed posterior pharynx. [...] ICD-10-CM ICD-9-CM 1. Other hyperlipidemia E78.49 272.4 LIPID PANEL TSH LIPID PANEL TSH 2. Prediabetes R73.03 790.29 COMPREHENSIVE METABOLIC PANEL HEMOGLOBIN A1C COMPREHENSIVE METABOLIC PANEL HEMOGLOBIN A1C 3. Recurrent major depressive disorder, in partial remission F33.41 296.35 4. Fibromyalgia M79.7 729.1 5. S/P bariatric surgery Z98.84 V45.86 6. Vitamin B12 deficiency (non anemic) E53.8 266.2 CBC WITH DIFFERENTIAL VITAMIN B12 LEVEL CBC WITH DIFFERENTIAL VITAMIN B12 LEVEL 7. Vitamin D deficiency E55.9 268.9 Vertigo monitor bp high at home add low dose toprol Anxiety add buspar reviewed Stress reviewed depn reviewed Fibromyalgia still with pain predm diet advised Chol con tmed Normal BMI Range: 18 & older: > or = 18.5 and < 25 Body mass index is 43.76 kg/m??. Abnormal high BMI: Patient counseled on lifestyle modifications including weight loss and daily exercise. Health Maintenance Topic Date Due ??? PNEUMOCOCCAL VACCINE 65+ YEARS (2 of 2 - PPSV23) 04/13/2019 ??? INFLUENZA VACCINE (1) 01/11/2020 ??? BREAST CANCER SCREENING 11/03/2020 ??? Colorectal Cancer Screening 03/15/2025 ??? OSTEOPOROSIS SCREENING Completed ??? ZOSTER VACCINE Completed Flu vac advised PLAN: Orders Placed This Encounter ??? CBC WITH DIFFERENTIAL ??? COMPREHENSIVE METABOLIC PANEL ??? HEMOGLOBIN A1C ??? LIPID PANEL ??? TSH ??? VITAMIN B12 LEVEL ??? metoprolol succinate (Toprol XL) 25 mg Extended Release 24 hour tablet ??? busPIRone (BUSPAR) 10 mg tablet Appropriate medications prescribed Appropriate patient [...] Office Visit [facility] Primary Care [facility] [address] [place] [address] [address] [place] [address] Eldon Keohler MD [address] [facility] [address] [place] [address] documented as of this encounter Procedures Procedure Name Priority Date/Time Associated Diagnosis Comments CBC WITH DIFFERENTIAL Routine 07/27/2020 7:59 AM CDT Vitamin B12 deficiency (non anemic) TSH Routine 07/27/2020 7:59 AM CDT Other hyperlipidemia HEMOGLOBIN A1C Routine 07/27/2020 7:59 AM CDT Prediabetes VITAMIN B12 LEVEL Routine 07/27/2020 7:5 9 AM CDT Vitamin B12 deficiency (non anemic) LIPID PANEL Routine 07/27/2020 7:59 AM CDT Other hyperlipidemia COMPREHENSIVE METABOLIC PANEL Routine 07/27/2020 7:59 AM CDT Prediabetes documented in this encounter Results * VITAMIN B12 LEVEL (07/27/2020 7:59 AM CDT) VITAMIN B12 662 200 - 1100 pg/mL [facility] Comment: FASTING:YES FASTING: YES Test Performed at: [facility] [address] [place] ??[address] Brent Lieberman D.O., MPH Blood 07/27/2020 7:59 AM CDT Eldon Koehler MD CHEMISTRY ORDERABLES Performing Organization Address City/[facility]/ZIP Co de Phone Number [facility] [address] [place] [address] * TSH (07/27/2020 7:59 AM CDT) Pathologist [facility] TSH 1.44 0.40 - 4.50 mIU/L [facility] Comment: Test Performed at: [facility] [address] [place] ??[address] Brent Lieberman D.O., MPH Blood 07/27/2020 7:59 AM CDT Eldon Koehler MD CHEMISTRY ORDERABLES Performing Organization Address [facility] Co de Phone Number [facility] [address] [place] [address] * LIPID PANEL (07/27/2020 7:59 AM CDT) Pathologist [facility] CHOLESTEROL 171 <200 mg/dL [facility] HDL 57 > OR = 50 mg/dL [facility] TRIGLYCERIDE 82 <150 mg/dL [facility] LDL CALCULATED 97 mg/dL (calc) [facility] Comment: Reference range: <100 Desirable range <100 mg/dL for primary prevention; ?? <70 mg/dL for patients with CHD or diabetic patients with > or = 2 CHD risk factors. LDL-C is now calculated using the Christopher-Марина calculation, which is a validated novel method providing better accuracy than the Friedewald equation in the estimation of LDL-C. Christopher KAISER et al. ERLIN. 2013;310(19): 2472-6846 (http://education.famPlus.[employer]/faq/CKS973) CHOL/HDL RATIO 3.0 <5.0 (calc) [facility] TOTAL NON-HDL CHOL(LDL+VLDL) 114 <130 mg/dL (calc) [facility] Comment: For patients with diabetes plus 1 major ASCVD risk factor, treating to a non-HDL-C goal of <100 mg/dL (LDL-C of <70 mg/dL) is considered a therapeutic option. Test Performed at: [facility] [address] [place] ??[phone] Brent Lieberman D.O., MPH Blood 07/27/2020 7:59 AM CDT Eldon Koehler MD CHEMISTRY ORDERABLES Performing Organization Address [facility] de Phone Number [facility] [address] [place] [address] * (ABNORMAL) HEMOGLOBIN A1C (07/27/2020 7:59 AM CDT) HEMOGLOBIN A1C 5.8(H) <5.7 % of total Hgb [facility] Comment: For someone without known diabetes, a [...] A1c for diagnosis of diabetes for children. Test Performed at: [facility] [address] [place] ??[phone] Brent Lieberman D.O., MPH Blood 07/27/2020 7:59 AM CDT Eldon Koehler MD CHEMISTRY ORDERABLES Performing Organization Address [facility] de Phone Number [facility] [address] [place] [address] * (ABNORMAL) COMPREHENSIVE METABOLIC PANEL (07/27/2020 7:59 AM CDT) GLUCOSE 117(H) 65 - 99 mg/dL [facility] Comment: ? Fasting reference interval For someone without known diabetes, a glucose value between 100 and 125 mg/dL is consistent with prediabetes and should be confirmed with a follow-up test. BUN 18 7 - 25 mg/dL [facility] CREATININE 0.82 0.50 - 0.99 mg/dL [facility] Comment: For patients >49 years of age, the reference limit for Creatinine is approximately 13% higher for people identified as -Angolan. GFR 74 > OR = 60 mL/min/1 .73m2 [facility] GFR, 85 > OR = 60 mL/min/1 .73m2 [facility] BUN/CREAT RATIO NOT APPLICABLE 6 - 22 (calc) [facility] SODIUM 140 135 - 146 mmol/L [facility] POTASSIUM 4.4 3.5 - 5.3 mmol/L [facility] CHLORIDE 104 98 - 110 mmol/L [facility] CO2 29 20 - 32 mmol/L [facility] CALCIUM 8.9 8.6 - 10.4 mg/dL [facility] TOTAL PROTEIN 6.7 6.1 - 8.1 g/dL [facility] ALBUMIN 4.0 3.6 - 5.1 g/dL [facility] GLOBULIN 2.7 1.9 - 3.7 g/dL (calc) [facility] ALBUMIN/GLOBULIN RATIO 1.5 1.0 - 2.5 (calc) [facility] BILIRUBIN TOTAL 0.6 0.2 - 1.2 mg/dL [facility] ALKALINE PHOSPHATASE 145 37 - 153 U/L [facility] AST 19 10 - 35 U/L [facility] ALT 15 6 - 29 U/L [facility] Comment: Test Performed at: [facility] ??[phone] Brent Lieberman D.O., MPH Blood 07/27/2020 7:59 AM CDT Eldon Koehler MD CHEMISTRY ORDERABLES [facility] [address] [place] [address] * CBC WITH DIFFERENTIAL (07/27/2020 7:59 AM CDT) WBC 8.1 3.8 - 10.8 Thousand/u L [facility] RBC 4.81 3.80 - 5.10 Million/uL [facility] HEMOGLOBIN 13.3 11.7 - 15.5 g/dL [facility] HEMATOCRIT 41.3 35.0 - 45.0 % [facility] MCV 85.9 80.0 - 100.0 fL [facility] MCH 27.7 27.0 - 33.0 pg [facility] MCHC 32.2 32.0 - 36.0 g/dL [facility] RDW 13.6 11.0 - 15.0 % [facility] PLATELETS 308 140 - 400 Thousand/u L [facility] MPV 11.3 7.5 - 12.5 fL [facility] NEUTROPHIL ABSOLUTE 4,763 1,500 - 7,800 cells/uL [facility] LYMPHOCYTE ABSOLUTE 2,106 850 - 3,900 cells/uL [facility] MONOCYTE ABSOLUTE 664 200 - 950 cells/uL [facility] EOSINOPHIL ABSOLUTE 478 15 - 500 cells/uL [facility] BASOPHILS ABSOLUTE 89 0 - 200 cells/uL [facility] NEUTROPHIL 58.8 % [facility] LYMPHOCYTES 26.0 % [facility] MONOCYTE 8.2 % [facility] EOSINOPHILS 5.9 % [facility] BASOPHILS 1.1 % [facility] Comment: Test Performed at: [facility] ??[address] Brent Lieberman D.O., MPH Blood 07/27/2020 7:59 AM CDT Eldon Koehler MD HEMATOLOGY ORDERABLE S [facility] [address] [place] [address] documented in this encounter Visit Diagnoses Diagnosis Other hyperlipidemia- Primary Prediabetes Other abnormal glucose Recurrent major depressive disorder, in partial remission Fibromyalgia Mylagia and myositis, unspecified S/P bariatric surgery Bariatric surgery status Vitamin B12 deficiency (non anemic) Other B-complex deficiencies Vitamin D deficiency Unspecified vitamin D deficiency documented in this encounter Care Teams Retirement Plan Counselor Relationship Specialty Start Date End Date Eldon Koehler MD PCP - General 10/06/07 documented as of this encounter
--- OUTSIDE RECORDS SUMMARY | 2024-05-22 17:00 | XMS_ITS | Encounter Summary ---
Author Organization [facility] Address [address] [place] [address] Care Team Providers Care Wic Site Coordinator Name Role Phone Eldon Koehler MD Primary Care Provider [phone] Reason for Visit * Reason Comments Medication Refill Encounter Details Date Type Department Care Team (Late st Contact Info) Description 12/17/2018 Refill [facility] Internal Medicine [address] [phone] Lacy Vasquez, [facility] [address] [place] [address] [address] [place] [address] Social History Tobacco Use Types [...] Description 07/27/2024 9:40 AM CDT Office Visit [facility] Primary [address] [place] [address] Eldon Koehler MD [address] [place] [address] [address] [place] [phone] documented as of this encounter Visit Diagnoses Not on filedocumented in this encounter Care Teams Wic Site Coordinator Relationship Specialty Start Date End Date Eldon Koehler MD PCP - General 10/06/07 documented as of this encounter
--- OUTSIDE RECORDS SUMMARY | 2024-05-22 17:00 | XMS_ITS | Encounter Summary ---
Author Organization [facility] Address [address] [place]: Epic Prelude [place]T [place] [address] Care Team Providers Care Gyn Name Role Phone Eldon Koehler MD Primary Care Provider [phone] Encounter Details Date Type Department Care Team (Latest Contact Info) Description 07/28/2020 Travel Social History Tobacco Use Types Packs/Day [...] How often do you attend [facility] or mandaeism services? More than 4 times [...] have Coronavirus / COVID-19? Unable to assess 07/28/2020 6:56 AM CDT documented as of this encounter Plan of Treatment Upcoming Encounters Date Type Department Care Team (Late st Contact Info) Description 07/27/2024 9:40 AM CDT Office Visit [facility] Primary Care [address] [place] [address] Eldon Koehler MD [address] [place] [address] [address] [place] [address] documented as of this encounter Visit Diagnoses Not on filedocumented in this encounter Care Teams Gyn Relationship Specialty Start Date End Date Eldon Koehler MD PCP - General 10/06/07 documented as of this encounter
--- OUTSIDE RECORDS SUMMARY | 2024-05-22 17:00 | XMS_ITS | Encounter Summary ---
Author Organization [facility] Address [address] [place] [address] Care Team Providers Care Personal Banking Assistant Name Role Phone Eldon Koehler MD Primary Care Provider [phone] Reason for Visit * Reason Comments Medication Refill Encounter Details Date Type Department Care Team (Late Contact Info) Description 09/15/2018 Refill [facility] Internal Medicine [address] [phone] Lacy Vasquez, [address] [place] [address] Social History Tobacco Use Types [...] * Telephone Encounter - Pearl Black - 09/15/2018 1:18 PM CDT EMILY 05/15/18 No future visit documented in this encounter Plan of Treatment Upcoming Encounters Date Type Department Care Team (Late Contact Info) Description 07/27/2024 9:40 AM CDT Office Visit [facility] Primary Care [address] [place] [phone] Eldon Koehler MD [address] [place] [address] [place] [phone] documented as of this encounter Visit Diagnoses Not on filedocumented in this encounter Care Teams Personal Banking Assistant Relationship Specialty Start Date End Date Eldon Koehler MD PCP - General 10/06/07 documented as of this encounter
--- OUTSIDE RECORDS SUMMARY | 2024-05-22 17:00 | XMS_ITS | Encounter Summary ---
Author Organization [facility] Address [address] [place] [address] Care Team Providers Care Sheeter Waxer Operator Name Role Phone Eldon Koehler MD Primary Care Provider [phone] Reason for Visit * Auth/Cert Specialty Diagnoses / Procedures Referred By Carmen villalobos Referred To Contact Perioperative Diagnoses Screening for colon cancer Family history of colon cancer Hx of colonic polyp Procedures COLONOSCOPY [facility] Gi Lab [address] [place] [address] Referral ID Status Reason Start Date Expiration Date Visits Re quested Visits Authorized [id number] 1 1 Encounter Details Date Type Department Care Team (Latest Contact Info) Description 08/08/2020 11:01 AM CDT - 08/08/2020 1:07 PM T Hospital Encounter [facility] GI Lab [address] [place] [address] Osei Sutton MD [address] [facility] [id number] [place] [address] Screening for colon cancer Discharge Disposition: Home or Self Care Social [...] How often do you attend chur or jewish services? More than 4 times per year [...] Sign Reading Time Taken Comments Blood Pressure 102/74 08/08/2020 12:52 PM CDT Pulse 95 08/08/2020 12:52 PM CDT Temperature 36.8 ??C (98.2 ??F) 08/08/2020 1 2:42 PM CDT Respiratory Rate 18 08/08/2020 12:5 2 PM CDT Oxygen Saturation 98% 08/08/2020 12: 52 PM CDT Inhaled Oxygen Concentration - - [...] weeks, please call the office. Office Phone: [facility] [phone] Exchange: documented in this encounter Medications at [...] Right 06/12/2016 ??? HX SKIN BIOPSY ??? AL COLONOSCOPY FLX DX W/COLLJ SPEC WHEN PFRMD N/A 03/15/2015 COLONOSCOPY performed by Osei Sutton MD at [facility] GI LAB ??? AL ESOPHAGOGASTRODUODENOSCOPY TRANSORAL DIAGNOSTIC N/A 01/21/2017 ESOPHAGOGASTRODUODENOSCOPY performed by Elizabeth Mcbride MD at [facility] OR ??? AL LAP, ORLY RESTRICT PROC, LONGITUDINAL GASTRECTOMY N/A 01/21/2017 GASTRECTOMY LONGITUDINAL LAPAROSCOPIC performed by Elizabeth Mcbride MD at [facility] OR Medications Prior to Admission Medication Sig [...] 08/08/2020 12:38 PM CDTAssociated Order(s): COLONOSCOPY REPORT [facility] Patient Name: Winifred Rodriguez Procedure Date: [...] signed electronically. Number of Addenda: 0 [address] [facility]; [place] [address] * rBidgett Cain RN - 2020 1:49 PM CDT Diane GI Nurse Assessment Patient: Winifred Rodriguez : 1950 Endoscopist: Surgeon(s): Osei Sutton MD Upcoming Procedure: Procedure to be Performed: Procedure(s): COLONOSCOPY Procedure Date/Time: 08/08/2020 at 1200 Diagnosis/Indication for procedure: Pre-Op Diagnosis Codes: * Screening for colon cancer [Z12.11] * Family history of colon cancer [Z80.0] * Hx of colonic polyp [Z86.010] Location: [facility] GI LAB Referring Physician: Eldon Koehler Patient's BMI: Body mass index is 43.58 [...] Right 06/12/2016 ??? HX SKIN BIOPSY ??? AL COLONOSCOPY FLX DX W/COLLJ SPEC WHEN PFRMD N/A 03/15/2015 COLONOSCOPY performed by Osei Sutton MD at [facility] GI LAB ??? AL ESOPHAGOGASTRODUODENOSCOPY TRANSORAL DIAGNOSTIC N/A 01/21/2017 ESOPHAGOGASTRODUODENOSCOPY performed by Elizabeth Mcbride MD at [facility] OR ??? AL LAP, ORLY RESTRICT PROC, LONGITUDINAL GASTRECTOMY N/A 01/21/2017 GASTRECTOMY LONGITUDINAL LAPAROSCOPIC performed by Elizabeth Mcbride MD at [facility] OR Past Medical History: Past Medical History: [...] ?Routine Pre-Anesthesia Protocol for GI Lab Procedures [facility] Approved by: [facility] - Medical Executive Committee Approval Date: 11/03/2019 ORDERS ARE ENTERED ???PER PROTOCOL?? Enter the protocol in the patient???s electronic health record using [employer]: .anestprotocolgilab NURSING ORDERS: Monitoring: o Obtain and [...] appropriate, may confirm POC with: Nursing Only [id number] (this lab can be obtained at no [...] injectable antihyperglycemic agents and glucose is less [id number] mg/dl o NPO patients who have NOT [...] MEDICATION ORDERS - entered by the Pharmacist mechanical inspector RESCUE ORDERS - entered by the Pharmacist or the dining host Orders Patient has IV access and UNCONCIOUS, [...] Description 07/27/2024 9:40 AM CDT Office Visit [facility] Primary Care [address] [address] Eldon Koehler MD [address] [place] [address] documented as of this encounter Procedures [...] Sutton MD - 08/08/2020 12:38 PM CDT [facility] Patient Name: Winifred Rodriguez Procedure Date: [...] of Addenda: [address]; [place] [address] Osei Sutton MD GI PROCEDURE ORDERAB LES * 2019 NOVEL CORONAVIRUS (COVID-19) PCR DETECTION (08/04/2020 8:36 AM CDT) COVID-19 PCR NOT DETECTED Not Detected 08/06/19 12:10 PM CDT [facility] PERFORMING LAB [facility] 08/05/2020 12:10 PM CDT [facility] Upper Respiratory ENTIRE NASOPHARYNX / Unknown Collection / Unknown 08/04/2020 8:36 AM CDT 08/04/2020 11:01 AM CDT [facility] - 08/05/2020 12:10 PM CDT This test [...] 2019-Novel Coronavirus. Osei Sutton MD MICROBIOLOGY - [facility] AL ORDERABLES [facility]# [id number] [address] [place], [place] [id number] documented in this encounter Visit Diagnoses Diagnosis Preop testing- Primary Preoperative examination, unspecified documented in this encounter Administered Medications Inactive [...] 1151 (New Bag - Prov ider: Eliza Menjivar, BENEDICT)1236 (Paused - Provider: Faby Brock CRNA - Comment: Switch to gravity)1237 (Restarted - Provider: Faby Brock CRNA)1250 (Stopped - Provider: Uzma Coello, BENEDICT) documented in this encounter Additional Health Concerns Assessment Noted Time PHQ-9 Depression Total Score: 2 08/01/19 21 9:15 PM CDT documented as of this encounter Care Teams Sheeter Waxer Operator Relationship Specialty Start Date End Date Eldon Koehler MD PCP - General 10/06/07 documented as of this encounter
--- OUTSIDE RECORDS SUMMARY | 2024-05-22 17:00 | XMS_ITS | Encounter Summary ---
Author Organization [facility] Address [address] [place]: Epic Prelude ADT [place] [address] Care Team Providers Care Snowboarding Instructor Name Role Phone Eldon Koehler MD Primary Care Provider [phone] Encounter Details Date Type Department Care Team (Latest Contact Info) Description 10/07/2019 Travel Social History Tobacco Use Types Packs/Day [...] How often do you attend chur or jain services? More than 4 times [...] 07/27/2024 9:40 AM CDT Office Visit [facility] Primary Care [address] [place] [address] Eldon Koehler MD [address] [place] [address] [address] [place] [address] documented as of this encounter Visit Diagnoses Not on filedocumented in this encounter Care Teams Snowboarding Instructor Relationship Specialty Start Date End Date Eldon Koehler MD PCP - General 10/06/07 documented as of this encounter
--- OUTSIDE RECORDS SUMMARY | 2024-05-22 17:00 | XMS_ITS | Encounter Summary ---
Author Organization [facility] Address [address] [place] [address] Care Team Providers Care Magazine Filler Name Role Phone Eldon Koehler MD Primary Care Provider [phone] Reason for Visit * Reason Comments Medication Refill Encounter Details Date Type Department Care Team (Late st Contact Info) Description 10/03/2019 Refill [facility] Internal Medicine [address] [address] Eldon Koehler MD [address] [place] [address] Fibromyalgia Social History Tobacco Use Types [...] often do you attend chur ch or christian services? More than 4 times [...] * Telephone Encounter - Pearl Black - 10/05/2019 9:04 AM CDT EMILY 04/30/19 NOV 10/07/19 Last fill 03/30/19 documented in this encounter Plan of Treatment Upcoming Encounters Date Type Department Care Team (Late st Contact Info) Description 07/27/2024 9:40 AM CDT Office Visit [facility] Primary Care [address] [place] [address] Eldon Koehler MD [address] [place] [address] documented as of this encounter Visit Diagnoses Diagnosis Fibromyalgia Mylagia and myositis, unspecified documented in this encounter Care Teams Magazine Filler Relationship Specialty Start Date End Date Eldon Koehler MD PCP - General 10/06/07 documented as of this encounter
--- OUTSIDE RECORDS SUMMARY | 2024-05-22 17:00 | XMS_ITS | Encounter Summary ---
Author Organization [facility] Address [address] [place]: Epic Prelude ADT [place] [address] Care Team Providers Care Collection Teller Name Role Phone Eldon Koehler MD Primary Care Provider [phone] Encounter Details Date Type Department Care Team (Latest Contact Info) Description 04/24/2020 Travel Social History Tobacco Use Types Packs/Day [...] have Coronavirus / COVID-19? No / Unsure 04/24/2020 10:29 AM DEPILATORY PAINTER documented as of this encounter Plan of Treatment Upcoming Encounters Date Type Department Care Team (Late st Contact Info) Description 07/27/2024 9:40 AM CDT Office Visit [facility] Primary Care [address] [place] [address] Eldon Koehler MD [address] [place] [address] [address] documented as of this encounter Visit Diagnoses Not on filedocumented in this encounter Additional Health Concerns Infection Onset Date Last Indicated Resolved Time R/O COVID-19 04/24/2020 04/25/2020 04/27/2020 7:01 AM DEPILATORY PAINTER documented as of this encounter Care Teams Collection Teller Relationship Specialty Start Date End Date Eldon Koehler MD PCP - General 10/06/07 documented as of this encounter
--- OUTSIDE RECORDS SUMMARY | 2024-05-22 17:00 | XMS_ITS | Encounter Summary ---
Author Organization [facility] Address [address] [place] [address] Care Team Providers Care Fence Post Driver Name Role Phone Eldon Koehler MD Primary Care Provider Reason for Referral * Eval and Treat (Routine) - Closed Specialty Diagnoses / Procedures Referred By Contdorian t Referred To Contact Diagnoses Asthma, unspecified asthma severity, unspecified whether complicated, unspecified whether persistent Bogdan Angulo MD [address] [place] [address] Referral ID Status Reason Start Date Expiration Date V isits Requested Visits Authorized [id number] Closed CRS To Schedule (STL) 08/19/2019 08/18/2020 1 1 Encounter Details Date Type Department Care Team (Late st Contact Info) Description 08/19/2019 Orders Only [facility] Nurse organizational development consultant [address] [place] [address] Bogdan Angulo MD [address] [place] [address] Asthma, unspecified asthma severity, unspecified whether complicated, unspecified whether persistent (Primary Dx) Social History Tobacco Use Types [...] often do you attend chur ch or latter-day services? More than 4 times per year [...] [facility] Primary Care [address] [place] [address] Eldon Koehler MD [address] [place] [address] [address] [place] [address] Scheduled Referrals Name Type Priority Associated Diagnoses Orde r Schedule AMB REFERRAL EPHARMIX REFERRAL Outpatient Referral Routine Asthma, unspecified asthma severity, unspecified whether complicated, unspecified whether persistent Ordered: 08/19/2019 documented as of this encounter Visit Diagnoses Diagnosis Asthma, unspecified asthma severity, unspecified whether complicated, unspecified whether persistent- Primary documented in this encounter Care Teams Fence Post Driver Relationship Specialty Start Date End Date Eldon Koehler MD PCP - General 10/06/07 documented as of this encounter
--- OUTSIDE RECORDS SUMMARY | 2024-05-22 17:00 | XMS_ITS | Encounter Summary ---
Author Organization [facility] Address [address] [place] [address] Care Team Providers Care Tinning Machine Set Up Operator Name Role Phone Eldon Koehler MD Primary Care Provider [phone] Reason for Visit * Reason Onset Date Comments Medication Refill 07/04/2020 Encounter Details Date Type Department Care Team (Late st Contact Info) Description 07/04/2020 Refill [facility] Internal Medicine [address] [address] Eldon Koehler MD [address] [place] [address] Fibromyalgia Social History Tobacco Use Types [...] [facility] Primary Care [address] [place] [address] [address] Eldon Koehler MD [address] [place] [address] documented as of this encounter Visit Diagnoses Diagnosis Fibromyalgia Mylagia and myositis, unspecified documented in this encounter Care Teams Tinning Machine Set Up Operator Relationship Specialty Start Date End Date Eldon Koehler MD PCP - General 10/06/07 documented as of this encounter
--- OUTSIDE RECORDS SUMMARY | 2024-05-22 17:00 | XMS_ITS | Encounter Summary ---
Author Organization [facility] Address [address] [place] [address] Care Team Providers Care Backwinder Name Role Phone Eldon Koehler MD Primary Care Provider [phone] Reason for Visit * Auth/Cert Specialty Diagnoses / Procedures Referred By Carmen t Referred To Contact Perioperative Diagnoses Screening for colon cancer Family history of colon cancer Hx of colonic polyp Procedures COLONOSCOPY [facility] Gi Lab [address] [place] [address] Referral ID Status Reason Start Date Expiration Date Visits Re quested Visits Authorized [id number] 1 1 Encounter Details Date Type Department Care Team (Late st Contact Info) Description 08/08/2020 12:15 PM CDT Anesthesia Event [facility] GI Lab S [facility] [address] [place] [address] Ivania Davis MD [address] [place] [address] Anesthesia Record Procedure Summary Procedure Name Responsible Anesthesiologist Anesthesia Start Time Anesthesia Stop Time COLONOSCOPY (Anus) Ivania Davis MD 08/08/20 12 15 08/08/20 1242 Events Date Time Event Comment 08/08/2020 1203 AN Equip Check Anesthesia eq uipment and materials checked in accordance with local policy. 1205 1215 An Start 1217 An Start Data 1217 Pre-Induction Immediate pre- induction anesthetic assessment performed. Vital signs as noted on graphic. 1217 In Room This event disp lays the In Room time documented in the Surgical Log. Deleting this event will not remove it from the log but will remove it from the Grid and Graph timeline. 1220 An Induction 1221 Anesthesia Ready 1222 Procedure Start This event d isplays the Procedure Start time documented in the Surgical Log. Deleting this event will not remove it from the log but will remove it from the Grid and Graph timeline. 1235 Procedure Stop This event di splays the Procedure Stop time documented in the Surgical Log. Deleting this event will not remove it from the log but will remove it from the Grid and Graph timeline. 1237 an stop data 1237 Out of Room This event disp lays the Out of Room time documented in the Surgical Log. Deleting this event will not remove it from the log but will remove it from the Grid and Graph timeline. 1242 An Stop 1242 Hand-off to Receiving Clinic stephany Post-Anesthetic transfer of care report elements to appropriate post-anesthesia recovery environment completed in accordance with procedure. 1242 Quick Note Transport from OR to recovery area or ICU, continuously present and monitoring ([id number]) Meds Name Total lidocaine (XYLOCAINE) 2% injection 60 mg propofol (DIPRIVAN) 10??mg/mL injection 350 mg lactated ringers infusion 400 mL * Agents Name O2 Inspired O2 N2O Inspired N2O * Blood No blood administrations on file. Lines, Drains, and Airways Type Details Placement Removal Peripheral IV Orientation: Anterio r, Right; Location: Hand; Gauge: 20 gauge; Needle Length: 1 in length; Insertion Attempts: 1 08/08/20 1150 by Eliza Menjivar RN 08/08/20 1250 by Uzma Coello, BENEDICT Supraglottic Airway Type: nasal cannula; Confirmation: end tidal CO2, satisfactory chest rise 08/08/20 1203 by Faby Brock, CYBER FORENSIC SPECIALIST 08/08/20 1250 by Uzma Coello RN documented in this encounter Social History Tobacco [...] How often do you attend chur or yarsani services? More than 4 times per year 04/30/2019 Do you belong to any clubs o r organizations such as nondenominational groups, unions, fraternal or athletic groups, or [...] AM CDT documented as of this encounter OR Notes * Anesthesia Postprocedure Evaluation - Faby Brock, [place] - 08/08/2020 12:50 PM CDT Post Anesthesia Evaluation Vitals: Vitals Value Taken Time BP 123/79 08/08/20 1247 Temp 36.8 ??C 08/08/20 1242 Resp 18 08/08/20 1247 SpO2 99 % 08/08/20 1247 Pulse 98 08/08/20 1247 Heart Rate Pain Rating: Pain Rating: Rest: 7 (08/08/20 1146) Anesthesia Post Evaluation Patient location during evaluation: PACU Patient participation: patient was able to participate in the post op evaluation Level of consciousness: 0 = alert, responsive, answers simple questions appropriately, able to perform simple tasks Pain management: adequate Airway patency: patent Nausea or Vomiting: none Anesthetic complications: no Cardiovascular status: regular rate and rhythm Respiratory status: no respiratory symptoms Hydration status: well hydrated Faby Brock CRNA * Anesthesia Handoff - Faby Brock CRNA - 08/08/2020 12:40 PM CDT Post-Anesthetic transfer of care report elements to appropriate post-anesthesia recovery environment completed in accordance with procedure. I completed my handoff to the receiving nurse during which we: 1. Identified the patient 2. Identified the responsible provider 3. Reviewed the pertinent medical history 4. Discussed the surgical course 5. Reviewed intra-op anesthesia management and issues during anesthesia 6. Set expectations for post-procedure period 7. Orders as necessary and appropriate for continuation of care are present in Epic. 8. Allowed opportunity for questions and acknowledgement of understanding. Vital Signs: See anesthesia flowsheet for VS 12:42 PM Faby Brock CRNA * Anesthesia Preprocedure Evaluation - Ivania Davis MD - 08/08/2020 11:38 AM CDT Anesthesia Evaluation Patient summary reviewed and Nursing notes reviewed Airway Dental - normal exam Pulmonary - normal exam breath sounds clear to auscultation (+) asthma (allergy-induced), sleep apnea on CPAP, Cardiovascular - normal exam Exercise tolerance: good (+) hypertension well controlled, ECG reviewed Rhythm: regular Rate: normal ROS comment: EKG: NSR LAD Possible LAE Cardiac Echo (2016): Left ventricle: The cavity size was normal. Wall thickness was increased in a pattern of mild LVH. Global systolic function was normal. Diastolic function assessment consistent with abnormal left ventricular relaxation (grade 1 diastolic dysfunction). Ejection fraction: 60% (MOD, 2- plane). Left atrium: The atrium was normal in size. Right ventricle: The cavity size was normal. Systolic function was normal. Neuro/Psych (+) headaches, psychiatric history (depression, Fibromyalgia, chronic fatigue syndrome) GI/Hepatic/Renal (+) GERD well controlled, bowel prep (NPO >2hrs for clear liquids, >8hrs for solids) Comments: S/p sleeve gastrectomy Endo/Other (+) diabetes mellitus (PreDM), hypothyroidism (on thyroid replacement), arthritis (shoulder pain) Abdominal (+) obese, Anesthesia History History of PONV. Anesthesia Plan ASA Final: 2 MAC (COVID negative 08/05/20) N/A induction Mask airway maintenance Anesthetic plan and risks discussed with Patient. Plan discussed with Nurse Machine Printer Hose and Anesthesiologist Road Service Locksmith. Smoking Compliance Patient did not smoke on day of surgery documented in this encounter Plan of Treatment Upcoming Encounters Date Type Department Care Team (Late st Contact Info) Description 07/27/2024 9:40 AM CDT Office Visit [facility] [address] [place] [phone] Eldon Koehler MD [address] [place] [address] [address] [place] [address] documented as of this encounter Visit Diagnoses Not on filedocumented in this encounter Administered Medications Inactive Administered Medications - up to 3 most recent administrations Medication Order MAR Action Action Date Dose Rate Site lactated ringers infusion IV, at 125 mL/hr, PRE-PROCEDURE CONTINUOUS, Starting on Fri08/08/20 at 1145, Until Fri08/08/20 at 1510, Routine, Pre-Procedure Restarted 08/08/2020 12:37 PM CDT New Bag 08/08/2020 11:51 AM CDT 125 mL/hr lidocaine 2 % (XYLOCAINE) injection IV, INTRA-PROCEDURE PRN, Starting on Fri08/08/20 at 1220, Until Fri08/08/20 at 1242, Routine, Anesthesia Intra-op Given 08/08/2020 12:20 PM CDT 60 mg propofoL (DIPRIVAN) injection IV, INTRA-PROCEDURE PRN, Starting on Fri08/08/20 at 1220, Until 08/08/20 at 1242, Anesthesia Intra-op Given 08/08/2020 12:33 PM CDT 50 mg Given 08/08/2020 12:32 PM CDT 50 mg Given 08/08/2020 12:28 PM CDT 50 mg documented in this encounter Additional Health Concerns Assessment Noted Time PHQ-9 Depression Total Score: 2 08/01/19 21 9:15 PM CDT documented as of this encounter Care Teams Backwinder Relationship Specialty Start Date End Date Eldon Koehler MD PCP - General 10/06/07 documented as of this encounter
--- OUTSIDE RECORDS SUMMARY | 2024-05-22 17:00 | XMS_ITS | Encounter Summary ---
Author Organization [facility] Address [address] [place] [address] Care Team Providers Care Health Safety Instructor Name Role Phone Eldon Koehler MD Primary Care Provider Reason for Referral * Eval and Treat (Routine) - Closed Specialty Diagnoses / Procedures Referred By Carmen villalobos Referred To Contact Gastroenterology Diagnoses Screening for colon cancer Family history of malignant neoplasm of digestive organs Personal history of colon polyps Procedures *COLON Eldon Koehler MD [address] [place] [phone] sOei Sutton MD [address] [facility] [place] [address] Referral ID Status Reason Start Date Expiration Date V isits Requested Visits Authorized [id number] Closed CRS to Schedule 04/03/2020 04/03/2021 4 4 CORE OPERATOR Reason for Visit * Reason Comments Cholesterol Problem Thyroid Disorder (office visit) Asthma Encounter Details Date Type Department Care Team (Late st Contact Info) Description 04/03/2020 3:15 PM SEED CORE OPERATOR Office Visit [facility] Internal Medicine [address] [address] Eldon Koehler MD [address] [place] [address] [address] [place] [address] Screening for colon cancer (Primary Dx); Gastroesophageal reflux disease without esophagitis; Mild intermittent asthma without complication; Fibromyalgia; Prediabetes; Recurrent major depressive disorder, in partial remission; Other specified hypothyroidism; Vertigo; Other specified anxiety disorders; Morbid obesity with body mass index of [...] COVID-19? No / Unsure 04/03/2020 3:08 PM SEED CORE OPERATOR documented as of this encounter Last Filed Vital Signs Vital Sign Reading Time Taken Comments Blood Pressure 130/80 04/03/2020 3:19 PM SEED CORE OPERATOR Pulse 86 04/03/2020 3:19 PM SEED CORE OPERATOR Temperature 36.9 ??C (98.4 ??F) 04/03/2020 3:19 PM CS T Respiratory Rate - - Oxygen Saturation 98% 04/03/2020 3:19 PM SEED CORE OPERATOR Inhaled Oxygen Concentration - - Weight 123.8 kg (273 lb) 04/03/2020 3:19 PM SEED CORE OPERATOR Height 167.6 cm (5' 6 ) 04/03/2020 3:19 PM SEED CORE OPERATOR Body Mass Index 44.06 04/03/2020 3:19 PM SEED CORE OPERATOR documented in this encounter Progress Notes * Eldon Koehler MD - 04/03/2020 3:25 PM CST Subjective: Winifred Rodriguez is a 69 y.o. female. hpi Ongoing stress at home Qu vertigo worse with buspar Lab pend Wt up Off diet due stress On cpap bp ok Med reviewed Patient Active Problem List Diagnosis Date [...] Medication Sig Dispense Refill ??? metoprolol succinate (Toprol XL) 25 mg [...] BY MOUTH DAILY 90 Tablet 3 ??? pregabalin (LYRICA) 50 mg Capsule Take 1 Capsule (50 mg) by mouth every 12 hours. 180 Capsule 2 ??? celecoxib (CeleBREX) 200 mg capsule TAKE 1 CAPSULE BY MOUTH TWO TIMES DAILY 180 Capsule 3 ??? DULoxetine (Cymbalta) 60 mg Capsule, Delayed Release(E.C.) Take 1 Capsule (60 mg) by mouth daily. 90 Capsule 3 ??? [DISCONTINUED] busPIRone (BUSPAR) 10 mg tablet Take 1 Tablet (10 mg) by mouth 3 times daily. 180 Tablet 3 ??? rOPINIRole (REQUIP) 2 mg Tablet TAKE 1 TABLET BY MOUTH DAILY AT BEDTIME 90 Tablet 3 ??? cyclobenzaprine (Flexeril) 10 mg tablet Take 1 Tablet (10 mg) by mouth daily at bedtime. 30 Tablet 1 ??? traZODone (DESYREL) 50 mg tablet Take 1 Tablet (50 mg) by mouth daily at bedtime. 30 Tablet 3 ??? fqxisdgtgek-eezismgvjwga-xpepzgbmzm (TRELEGY ELLIPTA) 100-62.5-25 mcg Disk with Device [...] Right 06/12/2016 ??? HX SKIN BIOPSY ??? [place] COLONOSCOPY FLX DX W/COLLJ SPEC WHEN PFRMD N/A 03/15/2015 COLONOSCOPY performed by Osei Sutton MD at [facility] ??? MN ESOPHAGOGASTRODUODENOSCOPY TRANSORAL DIAGNOSTIC N/A 01/21/2017 ESOPHAGOGASTRODUODENOSCOPY performed by Elizabeth Mcbride MD at [facility] OR ??? MN LAP, ORLY RESTRICT PROC, LONGITUDINAL GASTRECTOMY N/A 01/21/2017 GASTRECTOMY LONGITUDINAL LAPAROSCOPIC performed by Elizabeth Mcbride MD at [facility] OR Family History Problem Relation Name [...] ROS: positive for - joint pain Neurological ROS:vertigo present Dermatological ROS: sun damage, skin lesions Exam/Objective: BP 130/80 Pulse 86 Temp 98.4 ??F (36.9 ??C) (Oral) Ht 5' 6 (1.676 m) Wt 123.8 kg (273 lb) SpO2 98% BMI 44.06 kg/m?? General appearance: over wt [...] regular rate and rhythm, S1, S2 normal no jvd Abdomen: soft, non-tender. Bowel sounds normal. No masses, no organomegaly. Active bowel sounds. Skin: Skin color, texture, turgor normal.deepali k right arm Lymphatics: No focal or generalized lymphadenopathy. Neck Ext no edema Mood stable Assessment and Plan: ASSESSMENT: ICD-10-CM ICD-9-CM 1. Screening for colon cancer Z12.11 V76.51 AMB REFERRAL TO GASTROENTEROLOGY 2. Gastroesophageal reflux disease without esophagitis K21.9 530.81 3. Mild intermittent asthma without complication J45.20 493.90 4. Fibromyalgia M79.7 729.1 5. Prediabetes R73.03 790.29 6. Recurrent major depressive disorder, in partial remission F33.41 296.35 7. Other specified hypothyroidism E03.8 244.8 8. Vertigo R42 780.4 9. Other specified anxiety disorders F41.8 300.09 10. Morbid obesity with body mass index of 40.0-49.9 E66.01 278.01 Vertigo monitor-dc buspar reassess Anxiety monitor continue cymbalta Asthma had flu vac, pnvx covid precuations reviewed depnok Thyroid check lab gerd stable monitor Skin lesion benign monitor for other skin lesions changes Normal BMI Range: 18 & older: > or = 18.5 and < 25 Body mass index is 44.06 kg/m??. Abnormal high BMI: Patient counseled on lifestyle modifications including weight loss and daily exercise. Gaining wt back In counseling bp cont med djd spine monitor wt gain issues reviewed Health Maintenance Topic Date Due ??? PNEUMOCOCCAL VACCINE 65+ YEARS (2 of 2 - PPSV23) 04/13/2019 ??? Annual Wellness Visit-Medicare 05/01/2020 ??? BREAST CANCER SCREENING 11/03/2020 ??? Colorectal Cancer Screening 03/15/2025 ??? OSTEOPOROSIS SCREENING Completed ??? ZOSTER VACCINE Completed ??? INFLUENZA VACCINE Completed Due tdap PLAN: Orders Placed This Encounter ??? *[facility] [place] A Appropriate medications prescribed Appropriate patient instructions provided Follow-up as I have indicated. Medications and options explained to include common side effects. Understanding of medications, course, diagnosis, and expectations were expressed by patient/guardian. CORE OPERATOR documented in this encounter Plan of Treatment Upcoming Encounters Date Type Department Care Team (Late st Contact Info) Description 07/27/2024 9:40 AM CDT Office Visit [facility] Primary Care [address] [address] Eldon Koehler MD [address] [place] [address] Scheduled Referrals Name Type Priority Associated Diagnoses Order Schedule AMB REFERRAL TO GASTROENTEROLOGY Outpatient Referral Routine Screening for colon cancer Ordered: 04/03/2020 documented as of this encounter Visit Diagnoses Diagnosis Screening for colon cancer- Primary Special screening for malignant neoplasms, colon Gastroesophageal reflux disease without esophagitis Esophageal reflux Mild intermittent asthma without complication Unspecified asthma Fibromyalgia Mylagia and myositis, unspecified Prediabetes Other abnormal glucose Recurrent major depressive disorder, in partial remission Other specified hypothyroidism Vertigo Dizziness and giddiness Other specified anxiety disorders Morbid obesity with body mass index of 40.0-49.9 documented in this encounter Care Teams Health Safety Instructor Relationship Specialty Start Date End Date Eldon Koehler MD PCP - General 10/06/07 documented as of this encounter
--- OUTSIDE RECORDS SUMMARY | 2024-05-22 17:00 | XMS_ITS | Encounter Summary ---
Author Organization [facility] Address [address] [place] [address] Care Team Providers Care Hardwood Floor Refinisher Name Role Phone Eldon Koehler MD Primary Care Provider [phone] Reason for Visit * Reason Onset Date Comments Medication Refill 06/30/2018 Encounter Details Date Type Department Care Team (Late st Contact Info) Description 06/30/2018 Refill [facility] Internal Medicine [address] [phone] Eldon Koehler MD [address] [place] [address] Fibromyalgia Social History Tobacco Use Types [...] encounter Miscellaneous Notes * Telephone Encounter - Lindsay Christian - 06/30/2018 1:44 PM CST Barbara- 05/15/18 Nov- 09/11/18 LDF- 10/15/17 please add diagnosis code to sig EOPTIC PROJECTION TOPOGRAPHER documented in this encounter Plan of Treatment Upcoming Encounters Date Type Department Care Team (Late st Contact Info) Description 07/27/2024 9:40 AM CDT Office Visit [facility] Primary Care [address] [place] [address] Eldon Koehler MD [address] [place] [address] [address] [place] [address] documented as of this encounter Visit Diagnoses Diagnosis Fibromyalgia Mylagia and myositis, unspecified documented in this encounter Care Teams Hardwood Floor Refinisher Relationship Specialty Start Date End Date Eldon Koehler MD PCP - General 10/06/07 documented as of this encounter
--- OUTSIDE RECORDS SUMMARY | 2024-05-22 17:00 | XMS_ITS | Encounter Summary ---
Author Organization [facility] Address [address] [place]: Epic Prelude [place] [address] Care Team Providers Care Union Laborer Name Role Phone Eldon Koehler MD Primary Care Provider [phone] Encounter Details Date Type Department Care Team (Latest Contact Info) Description 12/14/2019 Travel Social History Tobacco Use Types Packs/Day [...] How often do you attend chur or restorationist services? More than 4 times per year [...] have Coronavirus / COVID-19? No / Unsure 12/14/2019 3:12 PM CDT documented as of this encounter Plan of Treatment Upcoming Encounters Date Type Department Care Team (Late st Contact Info) Description 07/27/2024 9:40 AM CDT Office Visit [facility] Primary Care [address] [place] [address] Eldon Koehler MD [address] [place] [address] [address] [place] [address] documented as of this encounter Visit Diagnoses Not on filedocumented in this encounter Care Teams Union Laborer Relationship Specialty Start Date End Date Eldon Koehler MD PCP - General 10/06/07 documented as of this encounter
--- OUTSIDE RECORDS SUMMARY | 2024-05-22 17:00 | XMS_ITS | Encounter Summary ---
Author Organization [facility] Address [address] [place]: [place] [address] Care Team Providers Care Softwood Faller Name Role Phone Eldon Koehler MD Primary Care Provider [phone] Encounter Details Date Type Department Care Team (Late st Contact Info) Description 12/27/2019 External Device Data Initial Department [address] [place] [address] Dr [place]: [place] [address] [facility], Social History Tobacco Use Types Packs/Day [...] How often do you attend chur or tenriism services? More than 4 times per year [...] Description 07/27/2024 9:40 AM CDT Office Visit [facility] Primary Care [address] [place] [address] Eldon Koehler MD [address] [place] [address] [address] [place] [address] documented as of this encounter Visit Diagnoses Not on filedocumented in this encounter Care Teams Softwood Faller Relationship Specialty Start Date End Date Eldon Koehler MD PCP - General 10/06/07 documented as of this encounter
--- OUTSIDE RECORDS SUMMARY | 2024-05-22 17:00 | XMS_ITS | Encounter Summary ---
Author Organization [facility] Address [address] [place] [address] Care Team Providers Care Harnessmaker Apprentice Name Role Phone Eldon Koehler MD Primary Care Provider [phone] Reason for Visit * Reason Comments Medication Refill Encounter Details Date Type Department Care Team (Late st Contact Info) Description 08/27/2019 Refill [facility] Internal Medicine [address] [phone] Delmis Akhtar, [facility] [address] [address] Social History Tobacco Use Types [...] * Telephone Encounter - Pearl Black - 08/30/2019 8:49 AM CDT EMILY 04/30/19 NOV 09/03/19 documented in this encounter Plan of Treatment Upcoming Encounters Date Type Department Care Team (Late st Contact Info) Description 07/27/2024 9:40 AM CDT Office Visit [facility] Primary Care [address] [place] [address] Eldon Koehler MD [address] [place] [address] [address] [place] [phone] documented as of this encounter Visit Diagnoses Not on filedocumented in this encounter Care Teams Harnessmaker Apprentice Relationship Specialty Start Date End Date Eldon Koehler MD PCP - General 10/06/07 documented as of this encounter
--- OUTSIDE RECORDS SUMMARY | 2024-05-22 17:00 | XMS_ITS | Encounter Summary ---
Author Organization [facility] Address [address] [place] [address] Care Team Providers Care C Software Developer Name Role Phone Eldon Koehler MD Primary Care Provider [phone] Reason for Visit * Reason Comments BRONCHITIS Encounter Details Date Type Department Care Team (Late st Contact Info) Description 04/24/2020 3:30 PM MILL OPERATOR HEAD Video Visit [facility] Internal Medicine [address] [address] Eldon Koehler MD [address] [place] [phone] Acute bronchitis due to other specified organisms (Primary Dx); Mild intermittent asthma without complication Social History [...] 04/30/2019 How often do you attend [facility] or taoist services? More than 4 times per year 04/30/2019 Do you belong to any clubs o r organizations such as anabaptism groups, unions, fraternal or athletic groups, or [...] COVID-19? No / Unsure 04/24/2020 10:29 AM MILL OPERATOR HEAD documented as of this encounter Last Filed Vital Signs Vital Sign Reading Time Taken Comments Blood Pressure - - Pulse - - Temperature - - Respiratory Rate - - Oxygen Saturation - - Inhaled Oxygen Concentration - - Weight 123.8 kg (273 lb) 04/24/2020 3:06 PM MILL OPERATOR HEAD Height 167.6 cm (5' 6 ) 04/24/2020 3:06 PM MILL OPERATOR HEAD Body Mass Index 44.06 04/24/2020 3:06 PM MILL OPERATOR HEAD documented in this encounter Progress Notes * Eldon Koehler MD - 04/24/2020 3:16 PM CST This encounter was completed via two-way synchronous audio and video communication. Patient expressed understanding that using technology outside of [facility] has higher potential tointroduce privacy risks: Not Applicable Patient's identity confirmed yes Patient gave verbal consent to have these services billed to their insurance and expressed understanding that co-insurance and deductible may apply: yes Pt with cough , chest congestion x 1 d Gland swelling Fatigue Patient Active Problem List Diagnosis Code ??? [...] normal. Nose: Nares normal. Septum midline. Throat: Lips normal. Neck: no visible nodules on video Lungs: does not appear short of breath Heart: no neck vein prominence noted no cyanosis noted Abdomen: NA Skin: Skin color, texture face only Lymphatics: no adenopathy noted neck Ext no edema Mood stable ASSESSMENT: Encounter Diagnoses Name Primary? Acute bronchitis due to other specified organisms Yes ??? Mild intermittent asthma without complication Start z ollie Quarantine pend results covid test Asthma has inh, monitor for inc sx, may need steroid discussed PLAN: Orders Placed This Encounter ??? 2019 NOVEL CORONAVIRUS (COVID-19) PCR DETECTION ??? azithromycin (Zithromax Z-Ollie) 250 mg tablet OPERATOR HEAD documented in this encounter Plan of Treatment Upcoming Encounters Date Type Department Care Team (Late st Contact Info) Description 07/27/2024 9:40 AM CDT Office Visit [facility] Primary Care [address] [place] [address] Eldon Koehler MD [address] [place] [phone] documented as of this encounter Results * 2019 NOVEL CORONAVIRUS (COVID-19) PCR DETECTION (04/25/2020 9:04 AM MILL OPERATOR HEAD) COVID-19 PCR NOT DETECTED NOT DETECTED 04/27/2020 6:46 AM MILL OPERATOR HEAD [facility] Comment: A Not Detected (negative) test result for this test means that SARS- CoV-2 RNA was not present in the specimen above the limit of detection. A negative result does not rule out the possibility of COVID-19 and should not be used as the sole basis for treatment or patient management decisions. ??If COVID-19 is still suspected, based on exposure history together with other clinical findings, re-testing should be considered in consultation with public health authorities. Laboratory test results should always be considered in the context of clinical observations and epidemiological data in making a final diagnosis and patient management decisions. Please review the Fact Sheets and FDA authorized labeling available for health care providers and patients using the following websites: https://www.[employer].LEPOW/home/Covid-19/HCP/NAAT/fact-sheet2 https://www.[employer].LEPOW/home/Covid-19/Patients/NAAT/ fact-sheet2 This test has been authorized by the FDA under an Emergency Use Authorization (EUA) for use by authorized laboratories. Due to the current public health emergency, [facility] is receiving a high volume of samples from a wide variety of swabs and media for COVID-19 testing. In order to serve patients during this public health crisis, samples from appropriate clinical sources are being tested. Negative test results derived from specimens received in non-commercially manufactured viral collection and transport media, or in media and sample collection kits not yet authorized by FDA for COVID-19 testing should be cautiously evaluated and the patient potentially subjected to extra precautions such as additional clinical monitoring, including collection of an additional specimen. Methodology: ??Nucleic Acid Amplification Test (NAAT) includes RT-PCR or TMA ?? Additional information about COVID-19 can be found at the [employer] [facility] [employer] website: www.[employer].LEPOW/Covid19. Upper Respiratory (Other, specify) Collection / Unknown 04/25/2020 9:04 AM MILL OPERATOR HEAD 04/25/2020 10:59 AM MILL OPERATOR HEAD Narrative [facility] - 04/27/2020 6:46 AM MILL OPERATOR HEAD Performing Organization Information: ?Site ID: [id number] ?Name: [facility] ?Address: [address] [place], [place] [address] [address] ?Director: Brent Lieberman D.O., MPH Eldon Koehler MD MICROBIOLOGY - GENER AL ORDERABLES [facility] [phone] documented in this encounter Visit Diagnoses Diagnosis Acute bronchitis due to other specified organisms- Primary Mild intermittent asthma without complication Unspecified asthma documented in this encounter Additional Health Concerns Infection Onset Date Last Indicated Resolved Time R/O COVID-19 04/24/2020 04/25/2020 04/27/2020 7:01 AM MILL OPERATOR HEAD documented as of this encounter Care Teams C Software Developer Relationship Specialty Start Date End Date Eldon Koehler MD PCP - General 10/06/07 documented as of this encounter
--- OUTSIDE RECORDS SUMMARY | 2024-05-22 17:00 | XMS_ITS | Encounter Summary ---
Author Organization [facility] Address [address] [place] [address] Care Team Providers Care Fisheries Technical Officer Name Role Phone Eldon Koehler MD Primary Care Provider [phone] Reason for Visit * Reason Onset Date Comments Medication Refill 03/10/2020 Encounter Details Date Type Department Care Team (Late st Contact Info) Description 03/10/2020 Refill [facility] Internal Medicine [address] [address] Eldon Koehler MD [address] [place] [address] Social History Tobacco Use Types Packs/Day [...] often do you attend chur ch or judaism services? More than 4 times [...] * Telephone Encounter - Dian Arreaga - 03/10/2020 9:57 AM CDT EMILY 12/24/2019 NOV 03/29/2020 documented in this encounter Plan of Treatment Upcoming Encounters Date Type Department Care Team (Late st Contact Info) Description 07/27/2024 9:40 AM CDT Office Visit [facility] Primary Care [address] [place] [address] Eldon Koehler MD [address] [facility] [address] [place] [address] documented as of this encounter Visit Diagnoses Not on filedocumented in this encounter Care Teams Fisheries Technical Officer Relationship Specialty Start Date End Date Eldon Koehler MD PCP - General 10/06/07 documented as of this encounter
--- OUTSIDE RECORDS SUMMARY | 2024-05-22 17:00 | XMS_ITS | Encounter Summary ---
Author Organization [facility] Address [address] [place]: Epic Prelude [place] [address] Care Team Providers Care Engineering Geologist Name Role Phone Eldon Koehler MD Primary Care Provider [phone] Encounter Details Date Type Department Care Team (Latest Contact Info) Description 12/24/2019 Travel Social History Tobacco Use Types Packs/Day [...] Office Visit [facility] Primary Care [address] [place] [address] Eldon Koehler MD [address] [place] [address] [address] [place] [address] documented as of this encounter Visit Diagnoses Not on filedocumented in this encounter Care Teams Engineering Geologist Relationship Specialty Start Date End Date Eldon Koehler MD PCP - General 10/06/07 documented as of this encounter
--- OUTSIDE RECORDS SUMMARY | 2024-05-22 17:00 | XMS_ITS | Encounter Summary ---
Author Organization [facility] Address [address] [address] [place]: Epic Prelude ADT [place] [address] Care Team Providers Care Early Intervention School Psychologist Name Role Phone Eldon Koehler MD Primary Care Provider [phone] Encounter Details Date Type Department Care Team (Latest Contact Info) Description 2020 Travel Social History Tobacco Use Types Packs/Day [...] have Coronavirus / COVID-19? No / Unsure 2020 1:35 PM CDT documented as of this encounter Plan of Treatment Upcoming Encounters Date Type Department Care Team (Late st Contact Info) Description 07/27/2024 9:40 AM CDT Office Visit [facility] Primary Care [address] [place] [address] Eldon Koehler MD [address] [place] [address] [address] [place] [address] documented as of this encounter Visit Diagnoses Not on filedocumented in this encounter Care Teams Early Intervention School Psychologist Relationship Specialty Start Date End Date Eldon Koehler MD PCP - General 10/06/07 documented as of this encounter
--- OUTSIDE RECORDS SUMMARY | 2024-05-22 17:00 | XMS_ITS | Encounter Summary ---
Author Organization [facility] Address [address] [place] [address] Care Team Providers Care Bulk System Operator Name Role Phone Eldon Koehler MD Primary Care Provider [phone] Reason for Visit * Reason Onset Date Comments FLU EXPOSURE 04/05/2019 Encounter Details Date Type Department Care Team (Late st Contact Info) Description 04/05/2019 Telephone [facility] Internal Medicine [address] [address] Eldon Koehler MD [address] [place] [phone] FLU EXPOSURE Social History Tobacco Use Types Packs/Day Years [...] * Telephone Encounter - Margarita Carr - 04/06/2019 8:26 AM CST Patient informed YSTEMS ENGINEER * Telephone Encounter - Eldon Koehler MD - 04/05/2019 3:58 PM CST Ok, tamiflu Do not wait for us to get flu vaccine YSTEMS ENGINEER * Telephone Encounter - CarrDarina - 04/05/2019 3:29 PM CST Patient called about grand kids having the FLU B. She is wanting to know if you can prescribe maybesome Tamaflu for her. She also has an appt on 04/30 for her annual visit and will get the FLU VACCINE then. YSTEMS ENGINEER documented in this encounter Plan of Treatment Upcoming Encounters Date Type Department Care Team (Late st Contact Info) Description 07/27/2024 9:40 AM CDT Office Visit [facility] Primary Care [address] [phone] Eldon Koehler MD [address] [place] [phone] documented as of this encounter Visit Diagnoses Not on filedocumented in this encounter Care Teams Bulk System Operator Relationship Specialty Start Date End Date Eldon Koehler MD PCP - General 10/06/07 documented as of this encounter
--- OUTSIDE RECORDS SUMMARY | 2024-05-22 17:00 | XMS_ITS | Encounter Summary ---
Author Organization [facility] Address [address] [place] [address] Care Team Providers Care Hospital Chief Financial Officer Name Role Phone Eldon Koehler MD Primary Care Provider [phone] Reason for Visit * Reason Comments Medication Refill Encounter Details Date Type Department Care Team (Late st Contact Info) Description 12/17/2018 Refill [facility] Internal Medicine [address] [phone] Eldon Koehler MD [address] [place] [phone] Social History Tobacco Use Types Packs/Day [...] Telephone Encounter - Pearl Black - 12/18/2018 6:49 AM CDT Kendy 05/15/18 No future visit documented in this encounter Plan of Treatment Upcoming Encounters Date Type Department Care Team (Late st Contact Info) Description 07/27/2024 9:40 AM CDT Office Visit [facility] Primary Care [address] [place] [address] Eldon Koehler MD [address] [place] [address] [address] [place] [address] documented as of this encounter Visit Diagnoses Not on filedocumented in this encounter Care Teams Hospital Chief Financial Officer Relationship Specialty Start Date End Date Eldon Koehler MD PCP - General 10/06/07 documented as of this encounter
--- OUTSIDE RECORDS SUMMARY | 2024-05-22 17:00 | XMS_ITS | Encounter Summary ---
Author Organization [facility] Address [address] [place] [address] Care Team Providers Care Executive Cyber Leader Name Role Phone Eldon Koehler MD Primary Care Provider [phone] Reason for Visit * Reason Comments Medication Refill Encounter Details Date Type Department Care Team (Late st Contact Info) Description 03/29/2019 Refill [facility] Internal Medicine [address] [address] Eldon Koehler MD [address] [place] [phone] Fibromyalgia Social History Tobacco Use Types [...] * Telephone Encounter - Pearl Black - 03/30/2019 9:00 AM CST Left message that medication was sent to pharmacy and to call back and schedule an appt GER COMPLIANCE * Telephone Encounter - Eldon Koehler MD - 03/30/2019 6:52 AM CST Notify pt not seen since last May, appt GER COMPLIANCE * Telephone Encounter - WaynePearl goode - 03/30/2019 6:47 AM CST EMILY 05/15/18 No future visit Last fill 06/30/18 GER COMPLIANCE documented in this encounter Plan of Treatment Upcoming Encounters Date Type Department Care Team (Late st Contact Info) Description 07/27/2024 9:40 AM CDT Office Visit [facility] Primary Care [address] [address] Eldon Koehler MD [address] [place] [phone] documented as of this encounter Visit Diagnoses Diagnosis Fibromyalgia Mylagia and myositis, unspecified documented in this encounter Care Teams Executive Cyber Leader Relationship Specialty Start Date End Date Eldon Koehler MD PCP - General 10/06/07 documented as of this encounter
--- OUTSIDE RECORDS SUMMARY | 2024-05-22 17:00 | XMS_ITS | Encounter Summary ---
Author Organization [facility] Address [address] [place] [address] Care Team Providers Care Quick Service Technician Name Role Phone Eldon Koehler MD Primary Care Provider [phone] Reason for Visit * Reason Comments Medication Refill Encounter Details Date Type Department Care Team (Late st Contact Info) Description 01/20/2020 Refill [facility] Internal Medicine [address] [phone] Delmis Akhtar, [facility] [address] [place] [phone] Social History Tobacco Use Types Packs/Day [...] often do you attend chur ch or mosque services? More than 4 times per year [...] Description 07/27/2024 9:40 AM CDT Office Visit [facility] Primary Care [id number] [place] [address] Eldon Koehler MD [address] [place] [address] [place] [address] [place] [address] documented as of this encounter Visit Diagnoses Not on filedocumented in this encounter Care Teams Quick Service Technician Relationship Specialty Start Date End Date Eldon Koehler MD PCP - General 10/06/07 documented as of this encounter
--- OUTSIDE RECORDS SUMMARY | 2024-05-22 17:00 | XMS_ITS | Encounter Summary ---
Author Organization [facility] Address [address] [place] [address] Care Team Providers Care Material Loader Name Role Phone Eldon Koehler MD Primary Care Provider [phone] Reason for Visit * Reason Onset Date Comments Medication Refill 05/15/2018 Encounter Details Date Type Department Care Team (Late st Contact Info) Description 05/15/2018 Refill [facility] Internal Medicine [address] [phone] Eldon Koehler MD [address] [place] [address] [address] [place] [phone] Social History Tobacco Use Types [...] Description 07/27/2024 9:40 AM CDT Office Visit [facility] Primary Care [address] [place] [address] Eldon Koehler MD [address] [place] [address] [address] [place] [phone] documented as of this encounter Visit Diagnoses Not on filedocumented in this encounter Care Teams Material Loader Relationship Specialty Start Date End Date Eldon Koehler MD PCP - General 10/06/07 documented as of this encounter
--- OUTSIDE RECORDS SUMMARY | 2024-05-22 17:00 | XMS_ITS | Encounter Summary ---
Author Organization [facility] Address [address] [place] [address] Care Team Providers Care Autoglazier Name Role Phone Eldon Koehler MD Primary Care Provider Reason for Referral * CT Scan (Routine) - Closed Specialty Diagnoses / Procedures Referred By Contdorian t Referred To Contact Diagnoses Memory loss Procedures CT HEAD WO CONTRAST Eldon Koehler MD [address] [facility] [address] [place] [address] [place] [phone] Referral ID Status Reason Start Date Expiration Date V isits Requested Visits Authorized [id number] Closed STL CTS 10/18/2019 11/16/2019 1 1 TRICAL SIGN WIRER HELPER Reason for Visit * Reason Comments Annual Wellness Visit (Medicare) Cholesterol Problem Thyroid Disorder (office visit) Encounter Details Date Type Department Care Team (Late st Contact Info) Description 04/30/2019 2:00 PM ELECTRICAL SIGN WIRER HELPER Office Visit [facility] Internal Medicine [address] [address] Eldon Koehler MD [address] [facility] [address] [place] [address] Memory loss (Primary Dx); Fibromyalgia; Other specified hypothyroidism; S/P bariatric surgery; Prediabetes; Other hyperlipidemia; Visit for screening mammogram; Medicare annual wellness visit, subsequent Social History Tobacco Use Types Packs/Day Years [...] Reading Time Taken Comments Blood Pressure 130/70 04/30/2019 2:01 PM ELECTRICAL SIGN WIRER HELPER Pulse - - Temperature - - Respiratory Rate - - Oxygen Saturation - - Inhaled Oxygen Concentration - - Weight 109.3 kg (241 lb) 04/30/2019 2:01 PM ELECTRICAL SIGN WIRER HELPER Height 166.4 cm (5' 5.5 ) 04/30/2019 2:01 PM ELECTRICAL SIGN WIRER HELPER Body Mass Index 39.49 04/30/2019 2:01 PM ELECTRICAL SIGN WIRER HELPER documented in this encounter Progress Notes * Rowan Epps, RN - 04/30/2019 2:59 PM CST MEDICARE WELLNESS VISIT Winifred Rodriguez is a 68 y.o. female here today for her Annual Wellness Visit (Medicare); Cholesterol Problem; and Thyroid Disorder (office visit) . PATIENT VOICED CONCERNS REGARDING STRESS IN HER LIFE DEALING WITH 3 GRANDCHILDREN AND ADULT DAUGHTER.VOIVED DURING WELLNESS VISIT WITH RN. HEALTH RISK ASSESSMENT She has completed her Health Risk Assessment. I have reviewed this with the patient. See scanned copy in chart. Areas of self-identified risk are addressed below. In general, the patient feels they are in fair physical health. MEDICAL RECORD UPDATE Past Medical History: Diagnosis Date ??? Arthropathy, [...] COLONOSCOPY performed by Osei Sutton MD at [facility] ??? [place] ESOPHAGOGASTRODUODENOSCOPY TRANSORAL DIAGNOSTIC N/A 01/21/2017 ESOPHAGOGASTRODUODENOSCOPY performed by Elizabeth Mcbride MD at [facility] OR ??? [place] LAP, ORLY RESTRICT PROC, LONGITUDINAL GASTRECTOMY N/A 01/21/2017 GASTRECTOMY LONGITUDINAL LAPAROSCOPIC performed by Elizabeth Mcbride MD at [facility] OR Family History Problem Relation Name Age of Onset ??? Colon Cancer Mother ??? Stroke Father ??? Stroke Maternal Grandfather ??? Stroke Paternal Grandfather ??? Kidney Disease Brother HIERO ??? Healthy Brother SHEREEN ??? Healthy Brother BEENA Current medications and allergies were reviewed and updated in computerized patient record. [facility] - [place], [place] - [address] [place] [address] [facility] #[id number] - [facility] [address] [facility] [address] [facility] - [place], [place] - [address] Care Providers: Patient Care Team: Eldon Koehler MD as PCP - General Elizabeth Mcbride MD as Consulting Physician (Surgery) [facility] dermatology [id number] 01/29/16 ANNUAL MEDICARE GLOBAL ACCOUNT DIRECTOR 04/30/2019 DEMENTIA SCREENING The patient does not report concerns regarding cognitive or behavioral issues. Cognitive ability was also observed and assessed throughout the exam and a MMS was completed. Mini-Mental Status Exam TOTAL SCORE: 30 (04/30/191499) DEPRESSION SCREENING (QM) PHQ-2 & PHQ-9 Little interest or pleasure in doing things:: Not at all (04/30/191499) Feeling down, depressed, or hopeless:: Not at all (04/30/191499) PHQ-2 Total: 0 (04/30/191499) Trouble falling or staying asleep, or sleeping too much:: Nearly every day (04/30/191499) Feeling tired or having little energy:: More than half the days (04/30/191499) Poor appetite or overeating:: Not at all (04/30/191499) Feeling bad about yourself-or that you are a failure or have let yourself or your family down:: Notat all (04/30/191499) Trouble concentrating on things, such as reading the newspaper or watching television:: Nearly every day (04/30/191499) Moving or speaking so slowly that other people could have noticed. Or the opposite-being so fidgetyor restless that you have been moving around a lot more than usual:: Not at all (04/30/19 1500) Thoughts that you would be better off , or of hurting yourself in some way:: Not at all (04/30/191499) PHQ-9 Total: 8 (04/30/191499) If you checked off any problems, how difficult have these problems made it for you to do your work,take care of things at home, or get along with other people?: Somewhat difficult (04/30/191499) Positive: PHQ-2 score >= 3 or PHQ-9 score >= 9 PHQ-2 Total: 0 (04/30/2019 3:00 PM) PHQ-9 Total: 8 (04/30/2019 3:00 PM) DEPRESSION PLAN OF CARE Her antidepressant medication was reviewed Denies harm to self. EXAMINATION BP 130/70 Ht 5' 5.5 (1.664 m) Wt 109.3 kg (241 lb) BMI 39.49 kg/m?? Blood Pressure BP Readings from Last 3 Encounters: 04/30/19 130/70 05/15/18 130/70 04/09/18 120/70 BMI POC Body mass index is 39.49 kg/m??. Normal BMI range: 18 & older: > or = 18.5 and < 25 Abnormal high BMI: Patient counseled on lifestyle modifications including weight loss and daily exercise. Visual Acuity report no vision problesm Nursing Visual Acuity Documentation: glasses Hearing screen Degree of hearing loss: no hearing problems FUNCTIONAL ABILITY AND SAFETY Pain Assessment Are you having pain right now? Yes Rate your pain on a scale of 1 - 10: 5, 8 Location of pain: fibromyalgia Frequency of pain? intermittent Character of pain? aching, burning, dull, sharp, stabbing, throbbing and rx, hot bath, ex Abuse screen/ and home safety evaluation Negative Fall Risk(QM) She has had only one fall without injury in the past year. Social Support/[place]: Patient resides with spouse in independent living. Activities of Daily Living: Requires assistance with no ADLs Adult Nutritional Screen Overweight/obesity and gain 20 lbs. States she had gastric by pass surgery 18 months ago. Has gain 20 lbs. Continues to continue her dietarily restrictions & takes vitamins. Tobacco Use(QM) reports that she has never smoked. She has never used smokeless tobacco. She is not a tobacco user. Alcohol Use reports no history of alcohol use. Opioid Use Current Opioids: none on current medication list Exercise/Other Exercise: intermittently Walking END OF LIFE PLANNING Patient's End of life planning was discussed and questions answered. She has an advanced directive, but a copy has not been provided. Asked to bring a copy for review and scanning into the medical record. Preventative Care Guidelines Written Screening Schedule for the next 5-10 years developed and provided to patient. Preventive Care Recommendations for AVERAGE Risk Adult Females Recommended Measure Frequency Strength Annual Exam / Wellness Yearly Mammography All females age 50 to 74 every 2 years B Cervical Cancer Screening All females (who have not had a hysterectomy) every 3 years age 21-65 A Osteoporosis Screening First time screening at age 65, follow-up intervals are not clearly established at this time B Lipid Screening All females >35 with additional cardiovascular risk factors / frequency suggested as every 5 years A Colon Cancer Screening Colonoscopy every 10 years or Fecal Occult Blood testing yearly A Immunizations Influenza yearly Pneumococcal once after 65 Zostavax once after age 60 Diabetic screening Screening recommended for adults with BP 135/80 Frequently is indeterminate B Blood Pressure screening Yearly A Health Maintenance Due Topic Date Due ??? OSTEOPOROSIS SCREENING 2017 ??? BREAST CANCER SCREENING 11/15/2017 ??? PNEUMOCOCCAL VACCINE 65+ YEARS (2 of 2 - PPSV23) 04/13/2019 Orders / Referrals / Counseling and follow-up Based upon these findings and review of any previous Wellness Visit recommendations the following treatment plan was recommended and discussed with the patient. Patient encouraged to schedule a follow up visit regarding ct scan results, lina, lab results, med effects. stress f/u. Orders Placed This Encounter ??? CT HEAD WO CONTRAST ??? MAMMO SCREEN BILAT W OR WO CAD ??? INFLUENZA VACCINE HIGH DOSE 65+ YRS IM (ADULT) ??? CBC WITH DIFFERENTIAL (Favorites) ??? COMPREHENSIVE METABOLIC PANEL (Favorites) ??? HEMOGLOBIN A1C (Favorites) ??? LIPID PANEL (Favorites) ??? TSH (Favorites) ??? VITAMIN B12 LEVEL ??? [place] PPPS, SUBSEQ VISIT ??? [place] PPPS, SUBSEQ VISIT ??? traZODone (DESYREL) 50 mg tablet ??? azithromycin (Zithromax Z-Miri) 250 mg tablet Education and counseling provided: Age appropriate based on today's review and evaluation End-of-Life planning (with patient's consent) Pneumococcal vaccine Influenza vaccine Screening mammography Cardiovascular screening blood test Bone mass measurement (DEXA) Screening for glaucoma Diabetes screening test shingles vaccine discussed Ms. Rodriguez voiced understanding and agreement with the treatment plan. She understands the importance of taking her medications and keeping follow-up appointments. All questions were answered. Nxjvp-Afsxa-Ibnytgp will be provided to patient upon check-out. Eldon Koehler MD, the patient's primary care physician, has reviewed and approved the Depression and BMI follow-up plan(s) of care. TRICAL SIGN WIRER HELPER * Eldon Koehler MD - 04/30/2019 2:05 PM CST Subjective: Winifred Rodriguez is a 68 y.o. female. hpi Overdue fu Wt up [place] wellbutrin made worse--off of it Sleep issues Stress issues reviewed home situation Ongoing memory issues Mild uri sx Fibromyalgia same Chol up Med reviewed Recent lab reviewed Still on cpap Patient Active Problem List Diagnosis Date Noted [...] by mouth every 12 hours. 180 Capsule 0 ??? rOPINIRole (REQUIP) 2 mg Tablet TAKE 1 TABLET BY MOUTH DAILY AT BEDTIME 90 Tablet 3 ??? atorvastatin (LIPITOR) 20 mg tablet TAKE 1 TABLET BY MOUTH LATE IN THE DAY 90 Tablet 3 ??? omeprazole (PriLOSEC) 20 mg Capsule, Delayed Release(E.C.) TAKE 1 CAPSULE BY MOUTH DAILY 90 Capsule 3 ??? levothyroxine 150 mcg tablet Take 1 Tablet (150 mcg) by mouth daily. 90 Tablet 3 ??? celecoxib (CeleBREX) 200 mg capsule Take 1 Capsule (200 mg) by mouth 2 times daily. 180 Capsule3 ??? [DISCONTINUED] oseltamivir (TAMIFLU) 75 mg capsule Take 1 Capsule (75 mg) by mouth 2 times daily. 10 Capsule 0 ??? [DISCONTINUED] buPROPion HCl (WELLBUTRIN SR) 150 mg Sustained Release 12 hour tablet TAKE 1 TABLET(150 MG) BY MOUTH DAILY 90 Tablet 1 ??? [DISCONTINUED] DULoxetine (CYMBALTA) 60 mg Capsule, Delayed Release(E.C.) Take 1 Capsule (60 mg) by mouth daily. 90 Capsule 2 ??? dewkbscktmz-wzahsqyzehjj-yttlwghrlk (TRELEGY ELLIPTA) 100-62.5-25 mcg Disk with Device Take 1 Puff by inhalation daily. 3 Each 3 ??? albuterol HFA 90 mcg inhaler Take 2 Puffs by inhalation 4 times daily as needed for Shortness of Breath. 8.5 Gram 2 ??? [DISCONTINUED] azithromycin (ZITHROMAX Z-MIRI) 250 mg tablet Take 2 tablets by mouth the first day and 1 tablet days 2-5.. 1 Package 0 ??? montelukast (SINGULAIR) 10 mg tablet Take [...] COLONOSCOPY performed by Osei Sutton MD at [facility] ??? [place] ESOPHAGOGASTRODUODENOSCOPY TRANSORAL DIAGNOSTIC N/A 01/21/2017 ESOPHAGOGASTRODUODENOSCOPY performed by Elizabeth Mcbride MD at [facility] OR ??? [place] LAP, ORLY RESTRICT PROC, LONGITUDINAL GASTRECTOMY N/A 01/21/2017 GASTRECTOMY LONGITUDINAL LAPAROSCOPIC performed by Elizabeth Mcbride MD at [facility] OR Family History Problem Relation Name Age of Onset ??? Colon Cancer Mother ??? Stroke Father ??? Stroke Maternal Grandfather ??? Stroke Paternal Grandfather ??? Kidney Disease Brother HIERO ??? Healthy Brother SHEREEN ??? Healthy Brother BEENA Social History Tobacco Use ??? Smoking status: Never Smoker ??? Smokeless tobacco: Never Used Substance Use Topics ??? Alcohol use: Yes Comment: rare Review of Systems: During [...] negative for skin rashes Exam/Objective: BP 130/70 Ht 5' 5.5 (1.664 m) Wt 109.3 kg (241 lb) BMI 39.49 kg/m?? General appearance: over wt nad Head: [...] Assessment and Plan: ASSESSMENT: ICD-10-CM ICD-9-CM 1. Memory loss R41.[address] HEAD WO CONTRAST 2. Fibromyalgia M79.7 729.1 CBC WITH DIFFERENTIAL CBC WITH DIFFERENTIAL 3. Other specified hypothyroidism E03.8 244.8 4. S/P bariatric surgery Z98.84 V45.86 VITAMIN B12 LEVEL VITAMIN B12 LEVEL 5. Prediabetes R73.03 790.29 HEMOGLOBIN A1C HEMOGLOBIN A1C 6. Other hyperlipidemia E78.49 272.4 COMPREHENSIVE METABOLIC PANEL LIPID PANEL TSH COMPREHENSIVE METABOLIC PANEL LIPID PANEL TSH 7. Visit for screening mammogram Z12.31 V76.12 MAMMO SCREEN BILAT W OR WO CAD Sinus hold abx if worsens rx Chol cont med diet advised Normal BMI Range: 18 & older: > or = 18.5 and < 25 Body mass index is 39.49 kg/m??. Abnormal high BMI: Patient counseled on lifestyle modifications including weight loss and daily exercise. Due mammo Memory reviewed check head ct--could not do mri Insomnia--add trazadone Anxiety cont med Fibro cont cymbalta Thyroid cont med Bone dens pend PLAN: Orders Placed This Encounter ??? CT HEAD WO CONTRAST ??? MAMMO SCREEN BILAT W OR WO CAD ??? CBC WITH DIFFERENTIAL (Favorites) ??? COMPREHENSIVE METABOLIC PANEL (Favorites) ??? HEMOGLOBIN A1C (Favorites) ??? LIPID PANEL (Favorites) ??? TSH (Favorites) ??? VITAMIN B12 LEVEL ??? traZODone (DESYREL) 50 mg tablet ??? azithromycin (Zithromax Z-Miri) 250 mg tablet Appropriate medications prescribed Appropriate patient instructions provided Follow-up as I have indicated. Medications and options explained to include common side effects. Understanding of medications, course, diagnosis, and expectations were expressed by patient/guardian. TRICAL SIGN WIRER HELPER documented in this encounter Plan of Treatment Upcoming Encounters Date Type Department Care Team (Late st Contact Info) Description 07/27/2024 9:40 AM CDT Office Visit [facility] Primary [facility] [id number] [place] [address] Eldon Koehler MD [address] [place] [phone] documented as of this encounter Procedures Procedure Name Priority Date/Time Associated Diagnosis Comments CBC WITH DIFFERENTIAL Routine 10/05/2019 2:27 AM CDT Fibromyalgia TSH Routine 10/05/2019 2:27 AM CDT Other hyperlipidemia HEMOGLOBIN A1C Routine 10/05/2019 2:27 AM CDT Prediabetes VITAMIN B12 LEVEL Routine 10/05/2019 2:2 7 AM CDT S/P bariatric surgery LIPID PANEL Routine 10/05/2019 2:27 AM CDT Other hyperlipidemia COMPREHENSIVE METABOLIC PANEL Routine 10/05/2019 2:27 AM CDT Other hyperlipidemia documented in this encounter Results * CT HEAD WO CONTRAST (10/22/2019) Anatomical Region Laterality Modality Head Other Eldon Koehler MD CT ORDERABLES * VITAMIN B12 LEVEL (10/05/2019 2:27 AM CDT) Pathologist [facility] VITAMIN B12 396 200 - 1100 pg/mL [facility] Comment: Please Note: Although the reference range for vitamin B12 is 200-1100 pg/mL, it has been reported that between 5 and 10% of patients with values between 200 and 400 pg/mL may experience neuropsychiatric and hematologic abnormalities due to occult B12 deficiency; less than 1% of patients with values above 400 pg/mL will have symptoms. FASTING:YES FASTING: YES Test Performed at: [facility] ??[phone] Brent Lieberman D.O., MPH Blood 10/05/2019 2:27 AM CDT Eldon Koehler MD CHEMISTRY ORDERABLES Performing Organization Address [facility] Co de Phone Number [facility] [address] [place] [address] * TSH (10/05/2019 2:27 AM CDT) [facility] TSH 0.78 0.40 - 4.50 mIU/L [facility] Comment: Test Performed at: [facility] ??[phone] Brent Lieberman D.O., MPH Blood 10/05/2019 2:27 AM CDT Eldon Koehler MD CHEMISTRY ORDERABLES Performing Organization Address [facility]/ZIP Co de Phone Number [facility] [address] [place] [address] * (ABNORMAL) LIPID PANEL (10/05/2019 2:27 AM CDT) [facility] CHOLESTEROL 178 <200 mg/dL [facility] HDL 59 > OR = 50 mg/dL [facility] TRIGLYCERIDE 91 <150 mg/dL [facility] LDL CALCULATED 100(H) mg/dL (calc) [facility] Comment: Reference range: <100 Desirable range <100 mg/dL for primary prevention; ?? <70 mg/dL for patients with CHD or diabetic patients with > or = 2 CHD risk factors. LDL-C is now calculated using the Bruce calculation, which is a validated novel method providing better accuracy than the Friedewald equation in the estimation of LDL-C. Christopher KAISER et al. ERLIN. 2013;310(19): 7894-1208 (http://education.[employer]/faq/FKT287) CHOL/HDL RATIO 3.0 <5.0 (calc) [facility] TOTAL NON-HDL CHOL(LDL+VLDL) 119 <130 mg/dL (calc) [facility] Comment: For patients with diabetes plus 1 major ASCVD risk factor, treating to a non-HDL-C goal of <100 mg/dL (LDL-C of <70 mg/dL) is considered a therapeutic option. Test Performed at: [facility] [id number] [place] [address] ??[phone] Brent Lieberman D.O., MPH Blood 10/05/2019 2:27 AM CDT Eldon Koehler MD CHEMISTRY ORDERABLES [facility] [address] [place] [address] * (ABNORMAL) HEMOGLOBIN A1C (10/05/2019 2:27 AM CDT) HEMOGLOBIN A1C 5.7(H) <5.7 % of total Hgb [facility] Comment: For someone without known diabetes, [...] of diabetes for children. Test Performed at: [facility] [address] [place] ??[phone] Brent Lieberman D.O., MPH Blood 10/05/2019 2:27 AM CDT Eldon Koehler MD CHEMISTRY ORDERABLES [facility] [address] [place] [address] * (ABNORMAL) COMPREHENSIVE METABOLIC PANEL (10/05/2019 2:27 AM CDT) GLUCOSE 104(H) 65 - 99 mg/dL [facility] Comment: ? Fasting reference interval For someone without known diabetes, a glucose value between 100 and 125 mg/dL is consistent with prediabetes and should be confirmed with a follow-up test. BUN 19 7 - 25 mg/dL [facility] CREATININE 0.78 0.50 - 0.99 mg/dL [facility] Comment: For patients >49 years of age, the reference limit for Creatinine is approximately 13% higher for people identified as -Nigerian. GFR 79 > OR = 60 mL/min/[address] [facility] GFR, 91 > OR = 60 mL/min/1 .73m2 [facility] BUN/CREAT RATIO NOT APPLICABLE 6 - 22 (calc) [facility] SODIUM 139 135 - 146 mmol/L [facility] . [facility] POTASSIUM 4.3 3.5 - 5.3 mmol/L [facility] . [facility] CHLORIDE 103 98 - 110 mmol/L [facility] . [facility] CO2 28 20 - 32 mmol/L [facility] . [facility] CALCIUM 9.0 8.6 - 10.4 mg/dL [facility] . [facility] TOTAL PROTEIN 6.7 6.1 - 8.1 g/dL [facility] . [facility] ALBUMIN 3.9 3.6 - 5.1 g/dL [facility] . [facility] GLOBULIN 2.8 1.9 - 3.7 g/dL (calc) [facility] ALBUMIN/GLOBULIN RATIO 1.4 1.0 - 2.5 (calc) [facility] BILIRUBIN TOTAL 0.6 0.2 - 1.2 mg/dL [facility] ALKALINE PHOSPHATASE 141 37 - 153 U/L [facility] AST 17 10 - 35 U/L [facility] ALT 13 6 - 29 U/L [facility] Comment: Test Performed at: [facility] [address] [place], [place] ??[phone] Brent Lieberman D.O., MPH Blood 10/05/2019 2:27 AM CDT Eldon Koehler MD CHEMISTRY ORDERABLES [facility] [address] [place] [address] * CBC WITH DIFFERENTIAL (10/05/2019 2:27 AM CDT) WBC 7.7 3.8 - 10.8 Thousand/u L [facility] [place] RBC 4.50 3.80 - 5.10 Million/uL [facility] [place] HEMOGLOBIN 12.9 11.7 - 15.5 g/dL [facility] [place] HEMATOCRIT 39.9 35.0 - 45.0 % [facility] [place] MCV 88.7 80.0 - 100.0 fL [facility] [place] MCH 28.7 27.0 - 33.0 pg [facility] [place] MCHC 32.3 32.0 - 36.0 g/dL [facility] [place] RDW 13.1 11.0 - 15.0 % [facility] [place] PLATELETS 310 140 - 400 Thousand/u L [facility] [place] MPV 11.0 7.5 - 12.5 fL [facility] [place] NEUTROPHIL ABSOLUTE 4,543 1,500 - 7,800 cells/uL [facility] [place] LYMPHOCYTE ABSOLUTE 2,272 850 - 3,900 cells/uL [facility] MONOCYTE ABSOLUTE 562 200 - 950 cells/uL [facility] [place] EOSINOPHIL ABSOLUTE 262 15 - 500 cells/uL [facility] [place] BASOPHILS ABSOLUTE 62 0 - 200 cells/uL [facility] [place] NEUTROPHIL 59 % [facility] LYMPHOCYTES 29.5 % [facility] MONOCYTE 7.3 % [facility] EOSINOPHILS 3.4 % [facility] BASOPHILS 0.8 % [facility] Comment: Test Performed at: [facility] ??[phone] Brent Lieberman D.O., MPH Blood 10/05/2019 2:27 AM CDT Eldon Koehler MD HEMATOLOGY ORDERABLE S [facility] [address] [place] [phone] documented in this encounter Visit Diagnoses Diagnosis Memory loss- Primary Fibromyalgia Mylagia and myositis, unspecified Other specified hypothyroidism S/P bariatric surgery Bariatric surgery status Prediabetes Other abnormal glucose Other hyperlipidemia Visit for screening mammogram Other screening mammogram Medicare annual wellness visit, subsequent Routine general medical examination at a health care facility documented in this encounter Care Teams Autoglazier Relationship Specialty Start Date End Date Eldon Koehler MD PCP - General 10/06/07 documented as of this encounter
--- OUTSIDE RECORDS SUMMARY | 2024-05-22 17:00 | XMS_ITS | Encounter Summary ---
Author Organization [facility] Address [address] [place] [address] Care Team Providers Care Nurse Informaticist Name Role Phone Eldon Koehler MD Primary Care Provider [phone] Reason for Visit * Reason Onset Date Comments Medication Refill 07/04/2020 Encounter Details Date Type Department Care Team (Late st Contact Info) Description 07/04/2020 Refill [facility] Internal Medicine [address] [address] Lacy Vasquez, [address] [address] Social History Tobacco Use Types Packs/Day [...] * Telephone Encounter - Pearl Black - 07/04/2020 2:35 PM CST EMILY 04/14/20 NOV 08/01/20 OL SERGEANT documented in this encounter Plan of Treatment Upcoming Encounters Date Type Department Care Team (Late st Contact Info) Description 07/27/2024 9:40 AM CDT Office Visit [facility] Primary Care [address] [place] [address] Eldon Koehler MD 7 [facility] [address] [place] [address] documented as of this encounter Visit Diagnoses Not on filedocumented in this encounter Care Teams Nurse Informaticist Relationship Specialty Start Date End Date Eldon Koehler MD PCP - General 10/06/07 documented as of this encounter
--- OUTSIDE RECORDS SUMMARY | 2024-05-22 17:00 | XMS_ITS | Encounter Summary ---
Author Organization [facility] Address [address] [place] [address] Care Team Providers Care Worksite Wellness Practitioner Name Role Phone Eldon Koehler MD Primary Care Provider Encounter Details Date Type Department Care Team (Latest Contact Info) Description 01/13/2018 2:36 PM CDT - 01/13/2018 11:59 PM CDT Hospital Encounter [facility] [address] [place] [address] Eldon Koehler MD [address] [place] [address] Discharge Disposition: Home or Self Care [...] Sig Dispensed Refills Start Date End Date atorvastatin (LIPITOR) 20 mg tabletIndications:Other hyperlipidemia Take 1 Tablet (20 mg) by mouth late in the day. 90 Tablet 3 01/14/2018 12/17/2018 rOPINIRole (REQUIP) 2 mg Tablet TAKE 1 TABLET BY MOUTH DAILY AT BEDTIME 90 Tablet 3 12/03/2017 12/17/2018 omeprazole (PriLOSEC) 20 mg Capsule, Delayed Release(E.C.) Take 1 capsule by mouth daily. 90 Capsule 3 10/28/2017 12/17/2018 LYRICA 50 mg CapsuleIndications:Fibr omyalgia TAKE 1 CAPSULE BY MOUTH TWICE DAILY 180 Capsule 2 10/15/2017 06/30/2018 levothyroxine 150 mcg tablet Take 1 Tablet (150 mcg) by mouth daily. 90 Tablet 3 10/15/2017 09/15/2018 DULoxetine (CYMBALTA) 60 mg Capsule, Delayed Release(E.C.) Take 1 Capsule (60 mg) by mouth daily. 90 Capsule 2 08/04/2017 08/04/2018 celecoxib (CeleBREX) 200 mg capsule Take 1 Capsule (200 mg) by mouth 2 times daily. 180 Capsule 3 06/13/2017 06/30/2018 albuterol HFA 90 mcg inhalerIndications:RTI (respiratory tract infection) Take 2 Puffs by inhalation 4 times daily as needed for Shortness of Breath. 8.5 Gram 5 04/11/2015 05/08/2018 documented as of this encounter Plan of Treatment Upcoming Encounters Date Type Department Care Team (Late st Contact Info) Description 07/27/2024 9:40 AM CDT Office Visit [facility] Primary Care [address] [place] [address] Eldon Koehler MD [address] [place] [address] documented as of this encounter Procedures Procedure Name Priority Date/Time Associated Diagnosis Comments EYE CULTURE WITH GRAM STAIN Routine 01/13/2018 11:40 AM CDT Acute bacterial conjunctivitis of left eye documented in this encounter Results * EYE CULTURE WITH GRAM STAIN (01/13/2018 11:40 AM CDT) CULTURE 1+ or few Normal skin miller 01/15/2018 12:23 PM T [facility] GRAM STAIN No organisms observed 01/15/2018 12:23 PM CDT [facility] GRAM STAIN 1+ (Rare or Occasional) WBC 01/15/2018 12:23 PM T [facility] Eye (Conjunctiva, left) Collection / Unknown 01/13/2018 11:40 AM CDT 01/13/2018 3:53 PM CDT Eldon Koehler MD MICROBIOLOGY - GENER AL ORDERABLES [facility]# [id number] [address] [place] [address] documented in this encounter Visit Diagnoses Diagnosis Acute bacterial conjunctivitis of left eye documented in this encounter Care Teams Worksite Wellness Practitioner Relationship Specialty Start Date End Date Eldon Koehler MD PCP - General 10/06/07 documented as of this encounter
--- OUTSIDE RECORDS SUMMARY | 2024-05-22 17:00 | XMS_ITS | Encounter Summary ---
Author Organization [facility] Address [address] [place]: [place] [address] Care Team Providers Care Loan Specialist Name Role Phone Eldon Koehler MD Primary Care Provider [phone] Encounter Details Date Type Department Care Team (Late st Contact Info) Description 08/16/2020 External Device Data Initial Department [address] [place] [address] Dr [address]: [place] [address] [facility], Social History Tobacco Use Types Packs/Day [...] often do you attend chur ch or evangelical services? More than 4 times [...] Description 07/27/2024 9:40 AM CDT Office Visit [facility] Primary Care [address] [place] [address] Eldon Koehler MD [address] [place] [address] [address] [place] [address] documented as of this encounter Visit Diagnoses Not on filedocumented in this encounter Additional Health Concerns Assessment Noted Time PHQ-9 Depression Total Score: 2 08/01/19 21 9:15 PM CDT documented as of this encounter Care Teams Loan Specialist Relationship Specialty Start Date End Date Eldon Koehler MD PCP - General 10/06/07 documented as of this encounter
--- OUTSIDE RECORDS SUMMARY | 2024-05-22 17:00 | XMS_ITS | Encounter Summary ---
Author Organization [facility] Address [address] [place]: Epic Prelude [place] [address] Care Team Providers Care Javascript Web Developer Name Role Phone Eldon Koehler MD Primary Care Provider [phone] Encounter Details Date Type Department Care Team (Latest Contact Info) Description 03/27/2020 Travel Social History Tobacco Use Types Packs/Day [...] How often do you attend chur or scientologist services? More than 4 times [...] have Coronavirus / COVID-19? 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 documented as of this encounter Plan of Treatment Upcoming Encounters Date Type Department Care Team (Late st Contact Info) Description 07/27/2024 9:40 AM CDT Office Visit [facility] Primary Care [address] [place] [address] Eldon Koehler MD [address] [place] [address] [address] [place] [address] documented as of this encounter Visit Diagnoses Not on filedocumented in this encounter Care Teams Javascript Web Developer Relationship Specialty Start Date End Date Eldon Koehler MD PCP - General 10/06/07 documented as of this encounter
--- OUTSIDE RECORDS SUMMARY | 2024-05-22 17:01 | XMS_ITS | Encounter Summary ---
Author Organization [facility] Address [address] [place] [address] Care Team Providers Care Rivet Sorter Name Role Phone Eldon Koehler MD Primary Care Provider [phone] Reason for Referral * Outpatient Services (Routine) - Closed Specialty Diagnoses / Procedures Referred By Contac t Referred To Contact Physical Therapy Diagnoses Morbid obesity due to excess calories Body mass index 40.0-44.9, adult Diastolic dysfunction Other hyperlipidemia Impaired fasting glucose Gastroesophageal reflux disease without esophagitis Chronic low back pain with sciatica, sciatica laterality unspecified, unspecified back pain laterality Fibromyalgia Acquired hypothyroidism Recurrent major depression in partial remission Restless legs Procedures PT EVAL AND TREAT Elizabeth Mcbride MD [address] [facility] [address] [place] [address] [address] Referral ID Status Reason Start Date Expiration Date V isits Requested Visits Authorized [id number] Closed STL CTS 09/02/2016 05/11/2017 2 2 Reason for Visit * Outpatient Services (Routine) - Closed Specialty Diagnoses / Procedures Referred By Contac t Referred To Contact Physical Therapy Diagnoses Morbid obesity due to excess calories Body mass index 40.0-44.9, adult Diastolic dysfunction Other hyperlipidemia Impaired fasting glucose Gastroesophageal reflux disease without esophagitis Chronic low back pain with sciatica, sciatica laterality unspecified, unspecified back pain laterality Fibromyalgia Acquired hypothyroidism Recurrent major depression in partial remission Restless legs Procedures PT EVAL AND TREAT Elizabeth Mcbride MD [address] [facility] [address] [place] [address] [facility] [place] [address] [address] Referral ID Status Reason Start Date Expiration Date V isits Requested Visits Authorized [id number] Closed STL CTS 09/02/2016 05/11/2017 2 2 Encounter Details Date Type Department Care Team (Late st Contact Info) Description 09/20/2016 10:30 AM CDT - 09/20/2016 11:59 PM CDT Hospital Encounter [facility] [place] [address] [address] Elizabeth Mcbride MD [address] [address] Freda Wolfe, Physical Therapist Discharge Disposition: Home or Self Care Social [...] Sig Dispensed Refills Start Date End Date levothyroxine 150 mcg tablet Take 1 Tablet (150 mcg) by mouth daily. 90 Tablet 3 08/15/2016 10/15/2017 atorvastatin (LIPITOR) 20 mg tablet Take 1 tablet by mouth daily late in the day 90 Tablet 1 06/27/2016 09/24/2016 omeprazole (PriLOSEC) 20 mg Capsule, Delayed Release(E.C.) Take 1 capsule by mouth daily 90 Capsule 1 06/27/2016 09/24/2016 rOPINIRole (REQUIP) 2 mg Tablet Take 1 tablet by mouth daily at bedtime 90 Tablet 1 06/27/2016 11/15/2016 celecoxib (CeleBREX) 200 mg capsule Take 1 capsule by mouth two times daily 180 Capsule 1 06/27/2016 11/15/2016 pregabalin (LYRICA) 50 mg CapsuleIndications:Fi bromyalgia Take 1 Capsule (50 mg) by mouth 2 times daily. 180 Capsule 0 03/15/2016 09/24/2016 DULoxetine (CYMBALTA) 60 mg Capsule, Delayed Release(E.C.) Take 1 Capsule (60 mg) by mouth daily. 90 Capsule 1 11/16/2015 09/24/2016 albuterol HFA 90 mcg inhalerIndications:RT I (respiratory tract infection) Take 2 Puffs by inhalation 4 times daily as needed for Shortness of Breath. 8.5 Gram 5 04/11/2015 05/08/2018 azithromycin (ZITHROMAX) 250 mg tabletIndications:RTI (respiratory tract infection) Take 2 tabs the first day and 1 tab days 2-5 1 Package 0 01/21/2014 03/07/2017 documented as of this encounter Miscellaneous Notes * Therapy Evaluation - Freda Wolfe, Physical Therapist - 09/20/2016 8:58 AM CDT Images from the original note were not included. Bariatric Surgery Preoperative Exercise Consult Patient: Winifred Rodriguez Date: 09/20/2016 Date of : 1950 Referring Provider: Elizabeth Mcbride, * Diagnosis: Morbid obesity Reason for Therapy: Morbid obesity Precautions: None per prescription Fall Risk: no Next MD Appointment: TBD Script Visits: 05/12 Time In: 10:31 Time Out: 11:30 Total Timed Treatment: 29 minutes Total Treatment Time: 59 minutes SUBJECTIVE Patient is a 66 y.o. right hand dominant female. Pt reports she has not started a routine but states she is trying to be more active (takes her grandchildren to the park 2x/week). States she is goingto join the [employer], plans to use the pool. Pt has a h/o R RTC tear/repair, h/o OA, h/o TKR, h/o spinal fusion. She is planning on the gastric sleeve procedure. Patient Weight Goal Post Surgery: 180 lbs Fall Risk History: Has the patient experienced two or more falls in the past year or any fall with injury in the past year? no Does the patient feel unsteady walking in the home or community? no Barriers to Communication: no Physical Limitations: h/o R RTC tear/repair, h/o OA, h/o TKR, h/o spinal fusion Current Exercise: plans on joining the [facility] Medical History: Medical history documented in EMR was reviewed with patient and patient reported it is accurate as follows: Past Medical History: Diagnosis Date ??? Arthropathy, unspecified, site unspecified ??? Asthma allergy induced ??? Chronic fatigue syndrome ??? Fibromyalgia ??? GERD (gastroesophageal reflux disease) ??? Hypothyroidism ??? Injury of back ??? Obstructive sleep apnea (adult) (pediatric) cpap at night ??? Psychiatric disorder depression ??? Unspecified disorder of lipoid metabolism ??? Unspecified essential hypertension Surgical History: Surgical history documented in EMR was reviewed with patient and patient reported it is accurate asfollows: Past Surgical History: Procedure Laterality Date ??? HX BACK SURGERY 1990, 2010 Spinal fusion L5-S1, Spinal fusion L4-L5 ??? HX CHOLECYSTECTOMY 1998 ??? HX COLONOSCOPY ??? HX DIAGNOSTIC LAPAROSCOPY ??? HX KNEE REPLACEMENT Bilateral 2014, 2016 ??? HX ROTATOR CUFF REPAIR Right 2017 ??? HX SKIN BIOPSY ??? UT COLONOSCOPY FLX DX W/COLLJ SPEC WHEN PFRMD N/A 03/15/2015 COLONOSCOPY performed by Osei Sutton MD at [facility] Allergy: Allergies documented in EMR were reviewed with patient and patient reported it is accurate as follows: Allergies Allergen Reactions ??? Clindamycin Rash and Itching ??? Codeine Nausea and Vomiting Medications: Current medications documented in EMR were reviewed with patient and patient reported it is accurate as follows: Current Outpatient Prescriptions on File Prior to Encounter Medication Sig Dispense Refill ??? levothyroxine 150 mcg tablet Take 1 Tablet (150 mcg) by mouth daily. 90 Tablet 3 ??? atorvastatin (LIPITOR) 20 mg tablet Take 1 tablet by mouth daily late in the day 90 Tablet 1 ??? omeprazole (PriLOSEC) 20 mg Capsule, Delayed Release(E.C.) Take 1 capsule by mouth daily 90 Capsule 1 ??? rOPINIRole (REQUIP) 2 mg Tablet Take 1 tablet by mouth daily at bedtime 90 Tablet 1 ??? celecoxib (CeleBREX) 200 mg capsule Take 1 capsule by mouth two times daily 180 Capsule 1 ??? pregabalin (LYRICA) 50 mg Capsule Take 1 Capsule (50 mg) by mouth 2 times daily. (Patient taking differently: Take 50 mg by mouth daily . ) 180 Capsule 0 ??? DULoxetine (CYMBALTA) 60 mg Capsule, Delayed Release(E.C.) Take 1 Capsule (60 mg) by mouth daily. 90 Capsule 1 ??? albuterol HFA 90 mcg inhaler Take 2 Puffs by inhalation 4 times daily as needed for Shortness of Breath. 8.5 Gram 5 ??? montelukast (SINGULAIR) 10 mg tablet Take 1 Tab by mouth daily. (Patient taking differently: Take 10 mg by mouth 1 time daily as needed . ) 90 Tab 3 ??? cyanocobalamin (VITAMIN B-12) 1,000 mcg Oral Tab Take 1,000 mcg by mouth daily. ??? Cholecalciferol, Vitamin D3, (VITAMIN D) 1,000 unit Oral Tab Take 2,000 Units by mouth daily . No current facility-administered medications on file prior to encounter. Pain Level: 3-8/10 knees & R shoulder OBJECTIVE Resting Heart Rate: 86 bpm Resting Blood Pressure: 130/90 mmHG Resting SpO2: 96% Initial weight: 300 lbs. Initial BMI: 49.29 kg/m2 Posture: WNL Gait: WFL Manual Muscle Testing: did not test R UE due to she has a possible RTC & is currently being treated for this. L UE & B LE WNL Range of Motion: Did not test R UE. L UE & B LE WFL Six Minute Walk: Minutes SpO2 % Heart Rate Dyspnea Scale * O2 liters/min Comments 1 minute 95 40 1 2 minute 98 86 2 3 minute 97 72 2 4 minute 96 52 2 5 minute 97 71 2 6 minute 98 71 2 Post 5 min. break 96 88 0 Summary - Total distance walked: 0.11 miles; Pace: 1.5 mph; Number of Rest Breaks: 0 * Modified Mindy Dyspnea Scale 0 Nothing at all 5 Severe 0.5 Very, very slight (just noticeable) 6 1 Very slight 7 Very Severe 2 Slight 8 3 Moderate 9 Very, Very Severe 4 Somewhat Severe 10 Maximal ASSESSMENT Pt vickie the therapy consult well. Pt presents with morbid obesity, decreased exercise/activite tolerance, & decreased exercise/activity endurance. Pt was educated on exercise, the benefits, equipment, cardio vs strength training, how to begin/advance/maintain a routine, & how exercise helps with the surgery & weight loss. Pt acknowledged her understanding of the education. Pt appears mo tivated. PT feels the pt is ready for the surgery if cleared by all other disciplines. Clinical Presentation: Stable and/or uncomplicated Evaluation Complexity: Low Complexity Based on patient's self reporting, therapist's objective findings and professional determinations Therapy plan of care will address the following: Current Impairment: 14.5% based on the clinical findings from [place]. G-codes and severity modifiers: ?? G8978 - Mobility current status: Mobility: Walking and moving around functional limitation, current status, at therapy outset and at reporting intervals CI: At least 1% but less than 20% impaired,limited or restricted ?? G8979 - Mobility goal status: Mobility: Walking and moving around functional limitation, projected goal status, at therapy outset and at reporting intervals, and at discharge or to end reporting CI: At least 1% but less than 20% impaired, limited or restricted ?? G8980 - Mobility discharge status: Mobility: Walking and moving around functional limitation, discharge status, at discharge from therapy or to end reporting CI: At least 1% but less than 20% impaired, limited or restricted Exercise Goals: 1. Pt to acknowledge their understanding of the education. Met PLAN Pt has met their therapy consult goal & is considered discharged at this time. Thank you for this referral. RENE Fatima License #: [id number] [facility] [address] [place] [address], [place] [place] [address] documented in this encounter Plan of Treatment Upcoming Encounters Date Type Department Care Team (Late st Contact Info) Description 07/27/2024 9:40 AM CDT Office Visit [facility] Care [address] [place] [address] Eldon Koehler MD [address] [place] [address] [address] [place] [address] Scheduled Orders Name Type Priority Associated Diagnoses Orde r Schedule PT EVAL AND TREAT PT Routine Morbid obesity due to excess calories Body mass index 40.0-44.9, adult Diastolic dysfunction Other hyperlipidemia Impaired fasting glucose Gastroesophageal reflux disease without esophagitis Chronic low back pain with sciatica, sciatica laterality unspecified, unspecified back pain laterality Fibromyalgia Acquired hypothyroidism Recurrent major depression in partial remission Restless legs Added to HDF configuration to grandchildren will have ORD item [id number] populate with time. for 1 Occurrences starting 09/20/2016 until 09/20/2016 documented as of this encounter Visit Diagnoses Diagnosis Morbid obesity due to excess calories Body mass index 40.0-44.9, adult Body Mass Index 40.0-44.9, adult Diastolic dysfunction Heart disease, unspecified Other hyperlipidemia Impaired fasting glucose Gastroesophageal reflux disease without esophagitis Esophageal reflux Chronic low back pain with sciatica, sciatica laterality unspecified, unspecified back pain laterality Fibromyalgia Mylagia and myositis, unspecified Acquired hypothyroidism Unspecified hypothyroidism Recurrent major depression in partial remission Major depressive disorder, recurrent episode, in partial or unspecified remission Restless legs Restless legs syndrome (RLS) documented in this encounter Care Teams Rivet Sorter Relationship Specialty Start Date End Date lEdon Koehler MD PCP - General 10/06/07 documented as of this encounter
--- OUTSIDE RECORDS SUMMARY | 2024-05-22 17:01 | XMS_ITS | Encounter Summary ---
Author Organization [facility] Address [address] [place] [address] Care Team Providers Care Psych Coordinator Name Role Phone Eldon Koehler MD Primary Care Provider [phone] Reason for Referral * Eval and Treat (Routine) - Closed Specialty Diagnoses / Procedures Referred By Contac t Referred To Contact Cardiovascular Disease / Cardiology Diagnoses Morbid obesity, unspecified obesity type Elizabeth Mcbride MD [address] [facility] [address] [place] [address] Rupert Nguyen MD NO ADDRESS ON FILE Referral ID Status Reason Start Date Expiration Date V isits Requested Visits Authorized [id number] Closed CRS To Schedule (STL) 11/25/2016 11/25/2017 1 1 Encounter Details Date Type Department Care Team (Late st Contact Info) Description 11/25/2016 Orders Only [facility] - [place] [id number] [facility] [address] [place] [address] Eveline Orellana, RN Morbid obesity, unspecified obesity type (Primary Dx) Social History Tobacco Use Types [...] Visit [facility] Primary Care [facility] [address] [place] [address] [address] [place] [address] Eldon Koehler MD [address] [facility] [address] [place] [address] Scheduled Referrals Name Type Priority Associated Diagnoses Orde r Schedule AMB REFERRAL TO CARDIOLOGY Outpatient Referral Routine Morbid obesity, unspecified obesity type Ordered: 11/25/2016 documented as of this encounter Results * VITAMIN B1 LEVEL (12/26/2016 12:24 PM CDT) Pathologist [facility] VITAMIN B1 118 70 - 180 nmol/L 12/28/2016 2:30 PM CDT [facility] Comment: ADDITIONAL INFORMATION This test was developed and its performance characteristics determined by [facility] in a manner consistent with CLIA requirements. This test has not been cleared or approved by the U.S. Food and Drug Administration. Test Performed by: [address] [address] Blood Venipuncture / Unknown 12/26/2016 12:24 PM CDT 12/26/2016 12:36 PM CDT Elizabeth Gomez MD CHEMISTRY [place] [facility] * FOLATE, SERUM (12/26/2016 12:24 PM CDT) Pathologist [facility] FOLATE, SERUM 19.2 >4.5 ng/mL 12/26/2016 1:55 PM CDT [facility] Blood Venipuncture / Unknown 12/26/2016 12:24 PM CDT 12/26/2016 12:36 PM CDT Elizabeth Gomez MD CHEMISTRY [place] Performing Organization Address [facility] Co de Phone Number [facility]# [id number] [address] [place] [address] documented in this encounter Visit Diagnoses Diagnosis Morbid obesity, unspecified obesity type- Primary documented in this encounter Care Teams Psych Coordinator Relationship Specialty Start Date End Date Eldon Koehler MD PCP - General 10/06/07 documented as of this encounter
--- OUTSIDE RECORDS SUMMARY | 2024-05-22 17:01 | XMS_ITS | Encounter Summary ---
Author Organization [facility] Address [address] [place] [address] Care Team Providers Care Scanner Operator Name Role Phone Eldon Koehler MD Primary Care Provider [phone] Reason for Visit * Auth/Cert Specialty Diagnoses / Procedures Referred By Carmen villalobos Referred To Contact General Surgery Diagnoses Adult BMI 45.0-49.9 kg/sq m Adult BMI 45.0-49.9 kg/sq m [Z68.42] Procedures MN LAP, ORLY RESTRICT PROC, LONGITUDINAL GASTRECTOMY GASTRECTOMY LONGITUDINAL LAPAROSCOPIC Wash Operating Room [address] [place] [id number] Referral ID Status Reason Start Date Expiration Date Visits Re quested Visits Authorized [id number] 1 1 Encounter Details Date Type Department Care Team (Latest Contact Info) Description 01/21/2017 6:47 AM CDT - 01/22/2017 4:17 PM CDT Hospital Encounter [facility] [address] [place] [id number] Elizabeth Mcbride MD [address] [place] [address] [place] [phone] Morbid obesity due to excess calories Discharge Disposition: Home or Self Care Social [...] Sign Reading Time Taken Comments Blood Pressure 127/85 01/22/2017 3:41 PM CDT Pulse 81 01/22/2017 3:41 PM CDT Temperature 37.1 ??C (98.7 ??F) 01/22/2017 12:41 PM C DT Respiratory Rate 18 01/22/2017 12:41 PM CDT Oxygen Saturation 96% 01/22/2017 12:41 PM CDT Inhaled Oxygen Concentration - - Weight 133.8 kg (295 lb) 01/21/2017 7:08 AM CDT Height 167.6 cm (5' 6 ) 01/21/2017 7:08 AM CDT Body Mass Index 47.61 01/21/2017 7:08 AM CDT documented in this encounter Discharge Summaries * Elizabeth Mcbride MD - 01/22/2017 6:03 AM CDT Images from the original note were not included. [place], [place] Discharge Summary Patient: Winifred Piper / 66 y.o. / female : 1950 CSN: [id number] Admission date: 01/21/2017 Discharge date: Principal Diagnosis: Morbid obesity Secondary Diagnosis: Active Hospital Problems Diagnosis ??? Morbid obesity due to excess calories ??? Hyperhidrosis ??? Fibromyalgia ??? GERD (gastroesophageal reflux disease) ??? Restless leg syndrome ??? Impaired fasting glucose ??? Asthma ??? Sleep apnea ??? Hypothyroidism ??? Osteoarthritis ??? Recurrent major depressive disorder, in partial remission ??? Hyperlipemia Resolved Hospital Problems Diagnosis Date Resolved No resolved problems to display. Past Medical History: Diagnosis Date ??? Arthropathy, [...] of lipoid metabolism ??? Unspecified essential hypertension Procedures Performed while in the Hospital: laparoscopic sleeve gastrectomy with EGD Attending Physician: Elizabeth Mcbride MD Consultations: none Presenting History: Please see H&P for details. Winifred Piper is a 66 y.o. female who presented with morbid obesity and underwent a sleeve gastrectomy. Hospital Course: Please see daily progress notes for details. The patient was admitted to the hospital and taken to the OR. The patient was felt to be stable for discharge and will be discharged once she tolerating adiet and was ambulating Disposition: The patient will be discharged to Home. The patient will return for a follow-up visit in the officein 2 weeks. Medications at Discharge: Medication List CONTINUE taking these medications albuterol sulfate 90 mcg/Actuation inhaler Take 2 Puffs by inhalation 4 times daily as needed for Shortness of Breath. Signed by: Delmis Vazquez Quantity: 8.5 Gram Refills: 5 atorvastatin 20 mg tablet Commonly known as: LIPITOR Take 1 tablet by mouth daily late in the day. Signed by: Delmis Vazquez Quantity: 90 Tablet Refills: 3 celecoxib 200 mg capsule Commonly known as: CeleBREX Take 1 Capsule (200 mg) by mouth 2 times daily. Signed by: Eldon Koehler Quantity: 180 Capsule Refills: 3 DULoxetine 60 mg Capsule, Delayed Release(E.C.) Commonly known as: CYMBALTA Take 1 Capsule (60 mg) by mouth daily. Signed by: Eldon Koehler Quantity: 90 Capsule Refills: 3 famotidine 40 mg/5 mL suspension Commonly known as: PEPCID Take 5 mL (40 mg) by mouth daily. Signed by: Elizabeth Mcbride Quantity: 150 mL Refills: 0 * HYDROcodone-acetaminophen 5-325 mg tablet Commonly known as: NORCO Take 1 Tablet by mouth every 4 hours as needed for Pain, Moderate. Signed by: Eldon Koehler Quantity: 90 Tablet Refills: 0 * HYDROcodone-acetaminophen 7.5-325 mg/15 mL Solution Commonly known as: HYCET Take 15 mL by mouth every 6 hours as needed for Pain. Max Daily Amount: 60 mL Signed by: Elizabeth Mcbride Quantity: 300 mL Refills: 0 levothyroxine 150 mcg tablet Commonly known as: SYNTHROID Take 1 Tablet (150 mcg) by mouth daily. Signed by: Delmis Vazquez Quantity: 90 Tablet Refills: 3 montelukast 10 mg tablet Commonly known as: SINGULAIR Take 1 Tab by mouth daily. Signed by: Eldon Koehler Quantity: 90 Tab Refills: 3 omeprazole 20 mg Capsule, Delayed Release(E.C.) Commonly known as: PriLOSEC Take 1 capsule by mouth daily. Signed by: Eldon Koehler Quantity: 90 Capsule Refills: 3 ondansetron 4 mg Tablet, Rapid Dissolve Commonly known as: ZOFRAN ODT Place 1 Tablet (4 mg) under tongue every 8 hours as needed for Nausea/Emesis. Signed by: Elizabeth Mcbride Quantity: 10 Tablet Refills: 0 pregabalin 50 mg Capsule Commonly known as: LYRICA Take 1 Capsule (50 mg) by mouth 2 times daily. Signed by: Eldon Koehler Quantity: 180 Capsule Refills: 1 rOPINIRole 2 mg Tablet Commonly known as: REQUIP Take 1 Tablet (2 mg) by mouth daily at bedtime. Signed by: Eldon Koehler Quantity: 90 Tablet Refills: 3 scopolamine 1.5 mg (1 mg over 3 days) patch Commonly known as: TRANSDERM-SCOP Apply 1.5 mg to skin as directed Q72H. Refills: 0 VITAMIN B-12 1,000 mcg Tablet Take 1,000 mcg by mouth daily. Refills: 0 Generic drug: cyanocobalamin VITAMIN D3 1,000 unit Take 2,000 Units by mouth daily . Refills: 0 Generic drug: cholecalciferol (vitamin D3) * Notice: !!Potential duplicate medications found. Review medication list carefully. See patient dc instructions documented in this encounter Discharge Instructions * Discharge Instructions* Breanna Goodwin RN - 01/22/2017 3:04 PM CDT [place], [place] Bariatric Surgery- Discharge Instructions Follow ALL of these instructions. Failure to follow these instructions will lead to problems! In the two weeks before surgery, you should do the followin. Get your preop labs drawn at least two weeks before surgery 2. Call Pre-Admission for screening [phone] 3. Please discuss with your PCP or pharmacist about crushing or liquid forms of all your pills for at least the first month. Dr. Hicks will likely savanna continue all medications on your discharge instructions. It is also your responsibility to contact your PCP or prescribing physician about which medications need to be changed / stopped / or dosages decreased. Likely you will need less blood pressure and diabetes medications as soon as you start the preop liquid diet and almost always after surgery. 4. If you are on diabetes or high blood pressure medications, please schedule an appointment with your primary care doctor in next 1-2 weeks. Watch your blood pressures and blood sugars closely, as you may need to see your primary doctor sooner. Often times, you will need to decrease your medications even before you have surgery. If you are on Metformin (glucophage), you need to stop it two days before surgery. 5. If you are on any hormone treatment (such as testosterone, control or hormone replacement therapy), you should not take it the month before or after surgery as it increases your risk of blood clots. 6. We typically order these medications at your preop visit: Scopolamine patch (place it behind your ear the day before surgery to help with nausea. It can cause your eyes to dilate so wash your hands. If it falls off, please just report it to the anesthesiologist and they may replace it in the preop are) The following medications will be sent to the [facility] unless you inform the office on the day your surgery is booked that you would prefer another pharmacy. Please call [phone] set up payment for post op meds to be delivered to you before you are discharged from the hospital: A. pepcid in liquid form (you need to take this DAILY for 30 days after surgery. If you are alreadyon an antacid, please ask which you should take): B. Zofran that you will place under your tongue for nausea after surgery (if you need it): C. Hydrocodone/ acetaminophen elixer for pain. Narcotics can be addictive. As you are probably aware, diversion (or using them by someone else or for something else than the intended purpose) is a major contributor to drug addiction. This medication was prescribed for YOU to be taken by only YOU for only THIS SITUATION (for your postoperative pain.) . Once your pain from this episode is done, It is your responsibility to dispose of these medications. You can call your local police department orpharmacy for suggestions on how to dispose safely of these medications. 7. If you take fish oil or other herbs/ minerals, STOP the week before surgery. If you are supposedto be on aspirin, please limit it to a baby aspirin. If you take NSAIDS (motrin, ibuprofen, etc), STOP atleast 9 days before surgery. This CANNOT be restarted after surgery as they often cause ulcers. 8. If you have been diagnosed with sleep apnea, bring your CPAP to the hospital for surgery. 9. If your health status changes in any way prior to surgery, please call the office to report it. For example, if you were to get a cold or urinary tract infection, please call. 10. If you do not gave a bowel movement in 1-2 days after your surgery, take Milk of Magnesia per directions on box/ bottle. It may take several hours to work. If the constipation continues, you may use a Fleets enema, which can also be purchased at a drug store. 11. If you need a lesser pain medicine than the hydrocodone elixer, you may take childrens chewabletylenol (acetominophen) or elixer (an extra strength Tylenol is 650mg, so take the equivalent amount) 12. Please call the office to make an appointment 2 weeks after surgery. [phone] The goal of the 2-week pre-surgery liquid diet is to decrease the size of the liver before surgery.This is also the same diet that you will need to do when you go home from the hospital. This makes it easier to do the operation because the liver can block access to the stomach. If the liver is toolarge the surgery may be postponed and the full liquid diet attempted again. Your compliance with this diet is important to make your surgery as safe and successful as possible! All meals are liquidsonly. Calorie intake is approximately 700-800 calories. Daily Goals: -60-80 grams of protein, or as instructed by your dietitian -48-64 ounces (6-8 cups) or more of water Examples of liquids you may have: -Protein shakes -Sugar-free gelatin -Sugar-free pudding -Skim milk -Broth or bouillon -Strained cream soups -Sugar-free popsicles - Low fat, sugar free yogurt (artificially sweetened) If you have questions- please call the dietitian who you saw during your consultation. Hospital Course When you arrive to the hospital or get in the OR, if there are indications that you did not follow the 2 week diet, surgery may be cancelled. It may require that you see the dietitian and have another mental health evaluation to determine why you cannot follow instructions. As soon as possible after surgery, you should be up walking around. Please plan to walk within fivehours of your operating room time. Your point of contact while in the hospital is the floor nurse. Please direct questions to him or her. They will contact Dr. Hicks as necessary. If you are having a sleeve , you will be hospitalized for atleast one night. If a gastric bypass, typically two nights. The night of surgery, you will likely be started on a liquid diet, being NPO (nothing by mouth) after midnight On the first morning after surgery, if all your labs look okay and you are doing well, you will be restarted on a liquid diet. If you tolerate that well, you will be discharged the next morning. If you have diabetes, while in the hospital, you will be given insulin if your sugars are high. Other medications (such as blood pressure meds or mental health meds), will often NOT be restarted during your hospitalization. If you have a lap band, you will likely go home from the recovery area once you drink some liquids and walk. After surgery instructions- ACTIVITY: No strenuous activity such as sports or athletic working out for six (6) weeks. But start walking right away! Do not lift more than fifteen (15) pounds for 6 weeks. Avoid excessive stooping, bending, or pulling for two (2) weeks after surgery. You may resume sexual content once you feel up for it Climbing stairs is allowed. Walking is encouraged and necessary to prevent blood clots. Ambulate daily, this will help decrease the postoperative discomfort from the intra-abdominal gas. Begin personalized exercise program; increase frequency and duration. No driving for 48 hours or while on any pain medications. No smoking! No NSAIDs! No steroids (for example prednisone by mouth / by inhalation / or injection) for 4 weeks before and4 weeks after surgery. No MRIs for atleast 6 weeks after surgery May take a shower or sponge bath, no soaking in a tub, pool or hot tub. WOUND CARE: May wash incision daily with soap water using a fresh washcloth each time. Showering is allowed 2 days postoperatively. Report ANY redness, drainage, or warmth at the incision site to the surgeon???s office. Report any fever greater than 101 degrees F. DIET: Follow diet as instructed in manual. Bariatric full liquid diet (stage 1) until seen back in office, at which time we will advance your diet. The longer you do a liquid type diet, the more weight youwill likely lose! Goals: 64 ounces of water; 70 grams of protein daily. Do not use straws. No carbonated beverages. MEDICATIONS: Please discuss with your PCP or pharmacist about crushing or liquid forms of all your pills for at least the first month. If you are on diabetes or high blood pressure medications, please schedule anappointment with your primary care doctor in the next 1-2 weeks. Watch your blood pressures and blood sugars closely, as you may need to see your primary doctor sooner. Do not drive while taking pain medication. You may use Milk of Mag for constipation. Please purchase some at the drug store. WHEN TO CALL DR. HICKS - If fever > 101.5 F OR shaking chills. - If your incisions become more reddened, separates, or begins to drain brown or green. It is common for the incision where the drain was to leak a small amount for a few days. - Persistent nausea & vomiting that last more than 2-3 hours and unable to keep liquids down. - Bleeding around incision. ( a small amount of thin blood tinged fluid is to be expected). - Urine color becomes dark as tea colored (should be clear to light yellow). - Shortness of breath, leg(s) painful when walking or standing, leg(s) swelling or discolored. - Severe constipation. - New onset of pain or pain not relieved by medications. DO NOT SMOKE AND AVOID SECOND-HAND SMOKE. Tobacco smoke can delay the healing process by decreasingthe oxygen supply to your wound, & may increase your risk of infection. Smoking irritates the breathing passages and increases the risk of pneumonia, bronchitis, asthma and risk of blood clots. Remember you have agreed to not smoke before or EVER after surgery. FOLLOW-UP: - Dr Hicks in approximately 2 weeks after surgery. Call [phone] to schedule day and time of the appointment. - If you have any questions or think anything is wrong, please do not hesitate to call our office. Elizabeth Hicks MD, FACS [facility], [facility] [place], [place] [phone] * Attachments The following attachments cannot be sent through Care Everywhere. * ACETAMINOPHEN AND HYDROCODONE (NAURUAN) * ONDANSETRON (ORAL) (NAURUAN) * SLEEVE GASTRECTOMY: POST-OP (NAURUAN) * FAMOTIDINE (NAURUAN) documented in this encounter Medications at Time of Discharge Medication Sig Dispensed Refills Start Date End Date famotidine (PEPCID) 40 mg/5 mL suspension Take 5 mL (40 mg) by mouth daily. 150 mL 12/26/2016 02/21/2017 HYDROcodone-acetaminoph en (HYCET) 7.5-325 mg/15 mL Solution Take 15 mL by mouth every 6 hours as needed for Pain. Max Daily Amount: 60 mL 300 mL 12/26/2016 01/27/2017 atorvastatin (LIPITOR) 20 mg tabletIndications:Other hyperlipidemia Take 1 tablet by mouth daily late in the day. 90 Tablet 3 12/19/2016 01/13/2018 rOPINIRole (REQUIP) 2 mg Tablet Take 1 Tablet (2 mg) by mouth daily at bedtime. 90 Tablet 3 11/15/2016 12/03/2017 pregabalin (LYRICA) 50 mg CapsuleIndications:Fibr omyalgia Take 1 Capsule (50 mg) by mouth 2 times daily. 180 Capsule 1 09/25/2016 10/15/2017 DULoxetine (CYMBALTA) 60 mg Capsule, Delayed Release(E.C.) Take 1 Capsule (60 mg) by mouth daily. 90 Capsule 3 09/24/2016 08/04/2017 levothyroxine 150 mcg tablet Take 1 Tablet (150 mcg) by mouth daily. 90 Tablet 3 08/15/2016 10/15/2017 albuterol HFA 90 mcg inhalerIndications:RTI (respiratory tract infection) Take 2 Puffs by inhalation 4 times daily as needed for Shortness of Breath. 8.5 Gram 5 04/11/2015 05/08/2018 azithromycin (ZITHROMAX) 250 mg tabletIndications:RTI (respiratory tract infection) Take 2 tabs the first day and 1 tab days 2-5 1 Package 0 01/21/2014 03/07/2017 documented as of this encounter Progress Notes * Nenita Mittalksenia Voss, RT - 01/22/2017 8:49 AM CDT IMAGING SERVICES - RADIOLOGY MEDICATION PROTOCOL [facility] ORDERS ARE ENTERED ???PER PROTOCOL?? Enter there protocol in the patient's electronic health record using BioSET: PlayDo Communication Orders: o For ordered imaging procedures requiring intravenous access : ??? Initiate a peripheral IV, if not already in place, and discontinue IV prior to discharge (if outpatient). ??? Enter order if needed: Insert Peripheral IV o If required to complete procedure, information technology technician or nurse may place indwelling julien catheter. Medication Orders: o Sodium chloride 0.9% (normal saline) flush 10 ml every PRN for saline lock or medication administration DIAGNOSTIC RADIOLOGY CONTRAST PROTOCOLS ADULTS: PROCEDURE DOSAGE ARTHROGRAMS (shoulder, wrist, hip, knee, TMJ) ISOVUE 300 (30mL) and Multihance (0.15mL),Radiologistto administer up to 30mL, intraarticularly, one time. Multihance ONLY used if MRI ordered. BARIUM ENEMA AIR CONTRAST Liquid Polibar Plus, radiologist to administer up to 1900mL rectally, onetime BARIUM ENEMA Liquid Polibar Plus, Radiologist to administer 500ml Polibar + 1500ml water, rectally,one time BARIUM ENEMA WATER SOLUABLE ISOVUE 250, 800mL + CYSTOGRAPHIN 30%, 900mL, radiologist to administer up to 1700 mL of combined fluids, rectally, one time. Radiologist may repeat if needed to complete procedure. CYSTOGRAM CYSTOGRAFIN 30%, Radiologist to administer up to 300mL, instill into the bladder, one time. ESOPHAGUS BARIUM SWALLOW Radiologist to request one or more of the following products: E-Z-HD Barium Sulfate for Suspension 340g, orally, one time. E-Z-PAQUE Barium Sulfate for Suspension 176g, orally, one time. EZ Gas crystals, one packet, orally, one time only. ESOPHAGUS BARIUM SWALLOW WATER SOLUABLE OMNIPAQUE 350, radiologist to administer up to 200mL, orally, one time MODIFIED BARIUM SWALLOW May use one or more of the following products, administered by Speech Language Pathologist: Barium tablet 13mm, up to one tablet, orally, one time. Varibar thin 40% up 180ml to orally, one time. May mix with food or liquid to achieve desired viscosity. Barium Sulfate 60% (E-Z-PASTE), up to 60mL, orally, one time. May mix with food or liquid to achieve desired viscosity. HYSTEROSALPINGOGRAM ISOVUE 300, provider to administer up to 30ml, vaginal, one time only INTRAVENOUS PYELOGRAM ISOVUE 370, administer up [id number], intravenous, one time only. Volume of contrast injected determined by radiologist. MYELOGRAMS: CERVICAL ISOVUE-M 300, radiologist to administer up to 15mL, intrathecal, one time only THORACIC ISOVUE-M 200, radiologist to administer up to 20mL, intrathecal, one time only LUMBAR ISOVUE-M 200, radiologist to administer up to 20mL, intrathecal, one time only SMALL BOWEL SERIES E-Z-PAQUE Barium Sulfate for Suspension, 176g, up to 480ml orally, one time only SMALL BOWEL SERIES WATER SOLUABLE OMNIPAQUE 350, 200ml, orally, one time only RETROGRADE URETHROGRAM Cystografin 30%, up to 300ml, instill into the bladder, one time only UPPER GI Radiologist to request one or more of the following products: E-Z-HD Barium Sulfate for Suspension 340g, orally, one time only. E-Z-PAQUE Barium Sulfate for Suspension 176g, orally, one time only. UPPER GI WATER SOLUABLE OMNIPAQUE 350, up to 200mL, orally, one time only UPPER GI AIR CONTRAST Radiologist to request one or more of the following products: E-Z-HD Barium Sulfate for Suspension 340g, orally, one time only. E-Z-PAQUE Barium Sulfate for Suspension 176g, orally, one time. EZ Gas crystals, one packet, orally, one time only. URETHROCYSTOGRAM VOIDING Cystografin 30%, up to 300ml, instill into the bladder, one time only PORT CONTRAST INJECTION WITH FLUORO Isovue 300, radiologist to administer up to 50ml, intravenous, one time only PEDIATRICS: For all procedures with an oral route, preferred route is oral; nasoenteric route may also be used.If needed,radiologist may place a nasoenteric tube to facilitate contrast administration. PROCEDURE DOSAGE UPPER GI- Under Age 5 Liquid E-Z-Paque (Thin Barium), up to 240mL orally, one time only. UPPER GI- Above Age 5 Radiologist to request one or more of the following products: EZ HD (Thick Barium), up to 340mL orally, one time only Liquid E-Z Paque (Thin Barium), up to 240mL orally, one time only EZ Gas Packet, 4g (one packet) orally,one time only. SMALL BOWEL SERIES- Under Age 5 Liquid E-Z Paque (Thin Barium), up to 240mL orally, one time only SMALL BOWEL SERIES- Above Age 5 Radiologist to request one or more of the following products: Liquid E-Z Paque (Thin Barium), up to 480mL orally, one time only. Omnipaque 350, up to 200mL orally, one time only ESOPHAGUS BARIUM SWALLOW- Under Age 5 Liquid E-Z Paque (Thin Barium), up to 240mL orally, one time only ESOPHAGUS BARIUM SWALLOW- Above Age 5 Radiologist to request one or more of the following products: EZ HD (Thick Barium), up to 340mL orally, one time only Liquid E-Z Paque (Thin Barium), up to 240mL orally, one time only. EZ Gas Packet, 4g (1 packet) orally, one time only INTRAVENOUS PYELOGRAM ISOVUE 370, administer up to 85mL, intravenous, one time only. Volume of contrast injected determined by radiologist. URETHROCYSTOGRAM VOIDING CystoConray II, up to 250mL, instill into the bladder, one time only BARIUM ENEMA Liquid Polibar, radiologist to administer up to 1900mL rectally, one time only. BARIUM ENEMA WATER SOLUABLE ISOVUE 250, 800mL + CYSTOGRAPHIN 30%, 900mL, radiologist to administer up to 1700 mL of combined fluids, rectally, one time. Radiologist may repeat if needed to complete procedure. BARIUM ENEMA AIR CONTRAST Liquid Polibar, radiologist to administer up to 1900mL rectally, one time Initiating Department(s): Imaging Services Reviewed:02/2015, 02/2016, 08/2016 Revised: 08/2016 Approved by: Medical Executive Committee and Pharmacy [employer]__Date: _04/22/14, 03/03/15, 03/08/16, 09/2016 * Elizabeth Mcbride MD - 01/22/2017 6:02 AM CDT 01/22/2017 Progress Note, [place], [place] Subjective: Post Op Day #1 from lap sleeve gastrectomy. Patient with some nauesa yesterday but now resolved and has ambulated Physical Exam: BP 104/52 (BP Location: Left arm, Patient Position (BP): Supine) Pulse 96 Temp 99.2 ??F (37.3 ??C) (Oral) Resp 16 Ht 5' 6 (1.676 m) Wt 133.8 kg (295 lb) SpO2 94% BMI 47.61 kg/m2 General appearance: alert, in no distress Lungs: clear to auscultation bilaterally, normal respiratory effort Heart: normal rate and regular rhythm Abdomen: Soft, non-tender. Bowel sounds normal. No masses, no organomegaly. Extremities: extremities normal, atraumatic, no cyanosis or edema, moves all extremities equally, no edema, redness or tenderness in the calves or thighs, normal strength, normal tone Neurologic: Grossly normal Lab Results Component Value Date/Time WBC 12.3 (H) 01/22/2017 04:06 AM HEMOGLOBIN 11.8 01/22/2017 04:06 AM HEMATOCRIT 36.8 01/22/2017 04:06 AM PLATELETS 244 01/22/2017 04:06 AM MCV 86.4 01/22/2017 04:06 AM Lab Results Component Value Date/Time SODIUM 138 01/22/2017 04:06 AM POTASSIUM 4.3 01/22/2017 04:06 AM CHLORIDE 101 01/22/2017 04:06 AM CO2 25 01/22/2017 04:06 AM CALCIUM 8.6 01/22/2017 04:06 AM BUN 11 01/22/2017 04:06 AM CREATININE 0.71 01/22/2017 04:06 AM GLUCOSE 157 (H) 01/22/2017 04:06 AM ANION GAP 12 01/22/2017 04:06 AM BUN/CREAT RATIO NOT APPLICABLE 11/05/2016 03:05 AM Drain amylase- normal lab and serosangenous output . Impression: 1. Sp sleeve gastrectomy Active Hospital Problems Diagnosis ??? Morbid obesity due to excess calories ??? Hyperhidrosis ??? Fibromyalgia ??? GERD (gastroesophageal reflux disease) ??? Restless leg syndrome ??? Impaired fasting glucose ??? Asthma ??? Sleep apnea ??? Hypothyroidism ??? Osteoarthritis ??? Recurrent major depressive disorder, in partial remission ??? Hyperlipemia Resolved Hospital Problems Diagnosis Date Resolved No resolved problems to display. Plan: 1. Doing well 2. Advance diet to stage 1 once upper GI is okay 3. Probably home later today or tomorrow Elizabeth Hicks MD FACS documented in this encounter H&P Notes * Elizabeth Mcbride MD - 01/21/2017 7:53 AM CDT Images from the original note were not included. Patient seen and examined today. I have reviewed the last H&P and examined the patient and there are no changes. Reviewed procedure and risks with patient and family / friends in room. Answered all questions. She wishes to proceed with surgery. Progress Notes Encounter Date: 12/26/2016 Elizabeth Mcbride MD Surgery Expand All Collapse All []Hide copied text CHIEF COMPLAINT: I would like to schedule surgery. Chief Complaint Patient presents with ??? Obesity ? Here for pre op for laparoscopic sleeve gastrectomy. ? HISTORY OF PRESENT ILLNESS for each visit Winifred Piper is a 66 y.o. female who has completed the preoperative bariatric surgery process. ? Here for pre op for laparoscopic sleeve gastrectomy. ? Pre/post op meds discussed with patient. ??Patient advised to filler picker Transderm Patch and apply 24 hours before surgery and remove 72 hours after surgery. ??Explained post op meds Hydrocodone Elixer and Zofran ODT to use on PRN basis. ??Liquid Famotidine (Pepcid) must be taken??daily for 30 days. ??Patient encouraged to contact PCP to check on routine daily medications since meds will need to be crushed or in liquid form for 4 weeks after surgery. Patient aware to avoid any steroid medications 1 month before surgery and 1 month after surgery. ?Also discussed with patient no NSAIDS after surgery ever. ??No out of town travel for 4-6 weeks after surgery. ?Discussed in length the importance of hydration after surgery. ??Patient encouraged to sip on fluids throughout the day. ??Signs and symptoms of dehydration reviewed with patient. ??Patient to call office with any symptoms of dizziness, lightheadedness, dry mouth, fatigue, or concentrated urine. ??Patient verbally understood all pre/post op meds. ? obesity -Quality- Obesity is intrusive to life activities. Improved. She has lost 13 pounds since last visit. She tore her rotator cuff. She is trying to be more active with her grandkids. Diet: Yogurt, granola, fruit lunch. Cheese. Dinner Veggies and fruits ? From last visit: ?? Here to discuss surgical weight loss options. Patient states that she has battled her weight her entire life. States that even as a child she was always the big kid . States that as she has matured she continued to gain weight. Has two adopted children (adopted as older children) that have caused her a lot of stress. She states that with this high stress lifestyle she has been eating more as sheis a stress eater. States that she has a lot of difficulty with exercising due to her previous backinjuries. Patient is on disability for fibromyalgia.. Support people include: spouse, 29yo daughterand her 2 young kids (4 and 22 months) son w schizoaffective disorder but he has tried to kill them- has been in shelter 3- he is not in the picture . 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 Pt sees a therapist - daughter has PTSD/ bipolar/ abused as child- they adopted when she was 9 years old.spouse is here with patient today. He is a product marketing programs manager for [employer]. Pt thinks support people will be supportive of decision to have bariatric surgery. The severity of the obesity makes it difficult to ambulate and exercise. The obesity is considered morbid in severity. Patient first recalls being obese at an early age, and has continued since then. It is associated with the other health problems listed below. Weight gain is being identified as due to: Poor choices, Large quantities, Eating larger meals daily when she feels that cannot really control the intake. The patient has attempted to modify it by activity including no regular exercise, walk the dog- 2-3 times but a very short period. Previous diet medications include: She does not think she ever took phenfen Previous attempts at diet include: Weight watchers, Slim Fast, Cabbage soup diet and [place]. She lost the most weight on weigh down workshop 50 lbs, but then regained it. She does not have a history of eating disorders. These previous attempts are also listed on page 9 and 10 of packet. ? Pulmonary and PreviousSleep evaluation: The patient has a diagnosis of sleep apnea., She has been tested. and on a CPAP, setting 12 The patient has not had a DVT or PE in the past and knows of no family history of such. After knee surgery, she was checked for a DVT Impressions No evidence of deep or superficial vein thrombosis involving the left lower extremity 2016 ?? Blood Pressure and previous Cardiac Evaluation: The patient Does not have a diagnosis of hypertension, Does have elevated blood pressure but is not on medications. BP: 110/60 (12/26/16 1109) BP is > or = 120/80 either value, with no h/o HTN. Pt has been inst. to f/u with primary care provider for BP recheck. Previous EKG results, if available: Results for orders placed or performed in visit on 11/28/16 EKG 12-LEAD ?? Narrative ?? Rupert Nguyen MD 11/28/2016 3:47 PM NSR LAD Possible LAE ? The patient Does have a diagnosis of hyperlipidemia and takes lipitor ? Lab Results Component Value Date/Time ?? CHOLTOT 158 11/05/2016 03:05 AM ?? HDL 47 05/23/2015 12:01 PM ?? LDLCALC 100 (H) 05/23/2015 12:01 PM ?? TRIGLYCERIDE 190 (H) 05/23/2015 12:01 PM ? Does not have a diagnosis of Diabetes Lab Results Component Value Date/Time ?? HGBA1C 5.9 (H) 11/05/2016 03:05 AM ?? Lab Results Component Value Date/Time ?? GLUCOSE 107 (H) 11/05/2016 03:05 AM ? GI issues: Does have a diagnosis of GERD and takes omeprazole ?? Other medical issues found on chart review: : ?? Steroid use once a year for asthma ?? hypothyroid ?? b12 def- takes replacement ?? Vit d def - take replacement ?? preop chart review by bariatric nurse coordinator- Eveline Rebollar RN Also reviewed by myself [facility] Winifred Piper is a 66 y.o. female who is coming in for pre op visit for bariatric surgery and has completed program requirements. Initial consultation visit weight: Vitals Weight Height BMI 09/02/2016 300 lbs 13 oz 66 in 49.28 ?? Last documented weight: Vitals Weight Height BMI 11/28/2016 286 lbs 65 in 47.59 ? Surgery: Laparoscopic Vertical Sleeve Gastrectomy (CPT 91360), EGD (CPT 18077) Insurance: Medicare A&B/AARP Approved: N/A Requirements Completed: Psych Consult/Cleared Yes-09/25/16 Dr. Adam Dietary Consult Yes-09/26/16 Iliana Melo Physical Therapy Consult Yes-09/20/16 Freda Wolfe 2nd Dietary Visit Yes-11/28/16 Iliana Melo Referral Yes-Dr. Koehler PCP Clearance Yes-11/26/16 Dr. Koehler-Pt seen recently she is medically stable for bariatric surgery Labs ?? Results for WINIFRED PIPER ( ) as of 12/23/2016 07:26 ?? Ref. Range 11/05/2016 03:05 WBC Latest Ref Range: 3.8 - 10.8 Thousand/uL 8.3 RBC Latest Ref Range: 3.80 - 5.10 Million/uL 4.86 HEMOGLOBIN Latest Ref Range: 11.7 - 15.5 g/dL 13.3 HEMATOCRIT Latest Ref Range: 35.0 - 45.0 % 41.7 MCV Latest Ref Range: 80.0 - 100.0 fL 85.8 MCH Latest Ref Range: 27.0 - 33.0 pg 27.4 MCHC Latest Ref Range: 32.0 - 36.0 g/dL 31.9 (L) PLATELETS Latest Ref Range: 140 - 400 Thousand/uL 320 MPV Latest Ref Range: 7.5 - 12.5 fL 11.0 RDW Latest Ref Range: 11.0 - 15.0 % 13.6 NEUTROPHIL Latest Units: % 66.2 LYMPHOCYTES Latest Units: % 21.9 MONOCYTE Latest Units: % 7.0 EOSINOPHILS Latest Units: % 3.9 BASOPHILS Latest Units: % 1.0 NEUTROPHIL ABSOLUTE Latest Ref Range: 1500 - 7800 cells/uL 5495 LYMPHOCYTE ABSOLUTE Latest Ref Range: 850 - 3900 cells/uL 1818 MONOCYTE ABSOLUTE Latest Ref Range: 200 - 950 cells/uL 581 EOSINOPHIL ABSOLUTE Latest Ref Range: 15 - 500 cells/uL 324 BASOPHILS ABSOLUTE Latest Ref Range: 0 - 200 cells/uL 83 SODIUM Latest Ref Range: 135 - 146 mmol/L 142 POTASSIUM Latest Ref Range: 3.5 - 5.3 mmol/L 4.5 CHLORIDE Latest Ref Range: 98 - 110 mmol/L 106 CO2 Latest Ref Range: 20 - 31 mmol/L 29 CALCIUM Latest Ref Range: 8.6 - 10.4 mg/dL 9.1 BUN Latest Ref Range: 7 - 25 mg/dL 14 CREATININE Latest Ref Range: 0.50 - 0.99 mg/dL 0.70 BUN/CREAT RATIO Latest Ref Range: 6 - 22 (calc) NOT APPLICABLE GFR Latest Ref Range: > OR = 60 mL/min/1.73m2 92 GFR, Latest Ref Range: > OR = 60 mL/min/1.73m2 106 GLUCOSE Latest Ref Range: 65 - 99 mg/dL 107 (H) TOTAL PROTEIN Latest Ref Range: 6.1 - 8.1 g/dL 6.6 ALBUMIN Latest Ref Range: 3.6 - 5.1 g/dL 4.0 BILIRUBIN TOTAL Latest Ref Range: 0.2 - 1.2 mg/dL 0.6 ALKALINE PHOSPHATASE Latest Ref Range: 33 - 130 U/L 166 (H) AST Latest Ref Range: 10 - 35 U/L 14 ALT Latest Ref Range: 6 - 29 U/L 15 GLOBULIN Latest Ref Range: 1.9 - 3.7 g/dL (calc) 2.6 ALBUMIN/GLOBULIN RATIO Latest Ref Range: 1.0 - 2.5 (calc) 1.5 ?? Results for WINIFRED PIPER ( ) as of 12/23/2016 07:26 ?? Ref. Range 05/23/2015 12:01 VITAMIN B12 Latest Ref Range: 211 - 946 pg/mL >1800 (H) CHOLESTEROL Latest Ref Range: <200 mg/dL 185 HDL Latest Ref Range: 40 - 59 mg/dL 47 LDL CALCULATED Latest Ref Range: <100 mg/dL 100 (H) NON-HDL CHOLESTEROL Latest Ref Range: <130 mg/dL 138 (H) TRIGLYCERIDE Latest Ref Range: <150 mg/dL 190 (H) VITAMIN D TOTAL (25OH) Latest Units: ng/ml 40 Results for WINIFRED PIPER ( ) as of 12/23/2016 07:26 ?? Ref. Range 11/05/2016 03:05 TSH Latest Ref Range: 0.40 - 4.50 mIU/L 0.74 Results for WINIFRED PIPER ( ) as of 12/23/2016 07:26 ?? Ref. Range 12/09/2016 09:29 IRON Latest Ref Range: 45 - 160 mcg/dL 63 FOLATE, SERUM Latest Units: ng/mL 18.5 VITAMIN B1 Latest Ref Range: 8 - 30 nmol/L 23 ?? A1C Lab Results Component Value Date/Time ?? HGBA1C 5.9 (H) 11/05/2016 03:05 AM EKG Results for orders placed or performed in visit on 11/28/16 EKG 12-LEAD ?? Narrative ?? Rupert Nguyen MD 11/28/2016 3:47 PM NSR LAD Possible LAE ?? Sleep Study 2009 CPAP/Settings 12 Cardiac Clearance Yes-11/28/16 Dr. Rupert Nguyen- 1. Preop cardiovascular exam Z01.810 V72.81 EKG 12-LEAD ??There is no evidence of significant cardiac disease that would preclude this operation or put herin high cardiac risk category. May proceed with surgery if so desired. Echo 08/16/2015-SUMMARY: ? - Left ventricle: The cavity size was normal. Wall thickness ?was increased in a pattern of mild LVH. Global systolic ?function was normal. Diastolic function assessment ?consistent with abnormal left ventricular relaxation ?(grade 1 diastolic dysfunction). Ejection fraction: 60% ?(MOD, 2-plane). - Left atrium: The atrium was normal in size. - Right ventricle: The cavity size was normal. Systolic ?function was normal. Other Clearance Yes-Scarlet Mcgovern REHANGER, scanned Consents Sent to Patient Spouse Consent: Need Pre Op labs Need ODILIA Procedure Education Done Other Required testing ?? Comments ? Past Medical Hx: Past??Medical??History Past Medical History: Diagnosis Date ??? Arthropathy, unspecified, site unspecified ? Asthma ? allergy induced ??? Chronic fatigue syndrome ? Fibromyalgia ? GERD (gastroesophageal reflux disease) ? Hypothyroidism ? Injury of back ? Obstructive sleep apnea (adult) (pediatric) ? cpap at night ??? Psychiatric disorder ? depression ??? Right rotator cuff tear ? Unspecified disorder of lipoid metabolism ? Unspecified essential hypertension ? Past Surgical Hx: Past??Surgical??History Past Surgical History: Procedure Laterality Date ??? HX BACK SURGERY ?? 1990, 2010 ?? Spinal fusion L5-S1, Spinal fusion L4-L5 ??? HX CHOLECYSTECTOMY ?? 1998 ??? HX COLONOSCOPY ? HX DIAGNOSTIC LAPAROSCOPY ?? 1979's ??? HX KNEE REPLACEMENT Bilateral 2014, 2016 ??? HX ROTATOR CUFF REPAIR Right 06/12/2016 ??? HX SKIN BIOPSY ? [place] COLONOSCOPY FLX DX W/COLLJ SPEC WHEN PFRMD N/A 03/15/2015 ?? COLONOSCOPY performed by Osei Sutton MD at [facility] ?? Medications: Current Outpatient Prescriptions on File Prior to Visit Medication Sig Dispense Refill ??? atorvastatin (LIPITOR) 20 mg tablet Take 1 tablet by mouth daily late in the day. 90 Tablet 3 ??? celecoxib (CeleBREX) 200 mg capsule Take 1 Capsule (200 mg) by mouth 2 times daily. 180 Capsule3 ??? rOPINIRole (REQUIP) 2 mg Tablet Take 1 Tablet (2 mg) by mouth daily at bedtime. 90 Tablet 3 ??? HYDROcodone-acetaminophen (NORCO) 5-325 mg tablet Take 1 Tablet by mouth every 4 hours as needed for Pain, Moderate. 90 Tablet 0 ??? pregabalin (LYRICA) 50 mg Capsule Take 1 Capsule (50 mg) by mouth 2 times daily. 180 Capsule 1 ??? DULoxetine (CYMBALTA) 60 mg Capsule, Delayed Release(E.C.) Take 1 Capsule (60 mg) by mouth daily. 90 Capsule 3 ??? omeprazole (PriLOSEC) 20 mg Capsule, Delayed Release(E.C.) Take 1 capsule by mouth daily. 90 Capsule 3 ??? levothyroxine 150 mcg tablet Take 1 Tablet (150 mcg) by mouth daily. 90 Tablet 3 ??? albuterol HFA 90 [...] Tab Take 1,000 mcg by mouth daily. ? Cholecalciferol, Vitamin D3, (VITAMIN D) 1,000 unit Oral Tab Take 2,000 Units by mouth daily . ? No current facility-administered medications on file prior to visit. ?? Allergies: Allergies Allergen Reactions ??? Clindamycin Rash and Itching ??? Codeine Nausea and Vomiting ?? Family Hx: Family??History Family History Problem Relation Age of Onset ??? Colon Cancer Mother ? Stroke Father ? Stroke Maternal Grandfather ? Stroke Paternal Grandfather ? Kidney Disease Brother ? Healthy Brother ? Healthy Brother ? Social Hx: Social??History Social History ?? Social History ??? Marital status: ? Spouse name: N/A ??? Number of children: N/A ??? Years of education: N/A ?? Occupational History ??? Not on file. ?? Social History Main Topics ??? Smoking status: Never Smoker ??? Smokeless tobacco: Never Used ??? Alcohol use Yes ? Comment: rare ??? Drug use: No ??? Sexual activity: Not on file ?? Other Topics Concern ??? Not on file ?? Social History Narrative ?? Review of Systems Constitutional: Positive for malaise/fatigue. Negative for chills, diaphoresis, fever and weight loss. HENT: Negative. Negative for congestion, ear discharge, ear pain, hearing loss, nosebleeds, sore throat and tinnitus. Eyes: Negative. Negative for blurred vision, double vision, photophobia, pain, discharge and redness. Respiratory: Negative for cough, hemoptysis, sputum production, shortness of breath, wheezing and stridor. Asthma Cardiovascular: Negative. Negative for chest pain, palpitations, orthopnea, claudication, leg swelling and PND. Gastrointestinal: Positive for heartburn. Negative for abdominal pain, blood in stool, constipation, diarrhea, melena, nausea and vomiting. Genitourinary: Negative. Negative for dysuria, flank pain, frequency, hematuria and urgency. Musculoskeletal: Positive for back pain, joint pain and myalgias. Negative for falls and neck pain. Fibromyalgia Skin: Negative. Negative for itching and rash. Neurological: Negative for dizziness, tingling, tremors, sensory change, speech change, focal weakness, seizures, loss of consciousness, weakness and headaches. Endo/Heme/Allergies: Negative. Negative for environmental allergies and polydipsia. Does not bruise/bleed easily. Psychiatric/Behavioral: Negative for depression, hallucinations, memory loss, substance abuse and suicidal ideas. The patient is not nervous/anxious and does not have insomnia. All other systems reviewed and are negative. ?? BP 110/60 Pulse 96 Ht 5' 5.5 (1.664 m) Wt 130.4 kg (287 lb 6.4 oz) SpO2 97% BMI 47.1 kg/m2 Physical Exam Constitutional: She is oriented to person, place, and time. She appears well- developed and well-nourished. obese HENT: Head: Normocephalic. Eyes: EOM are normal. Pupils are equal, round, and reactive to light. Neck: Normal range of motion. Neck supple. Cardiovascular: Normal rate and regular rhythm. Pulmonary/Chest: Effort normal and breath sounds normal. Abdominal: Soft. There is no tenderness. Musculoskeletal: Normal range of motion. Neurological: She is alert and oriented to person, place, and time. Skin: Skin is warm and dry. Psychiatric: She has a normal mood and affect. Her behavior is normal. Judgment and thought contentnormal. Nursing note and vitals reviewed. ?? ASSESSMENT: Encounter Diagnoses Name Primary? Morbid obesity due to excess calories Yes ??? BMI 45.0-49.9, adult ? Gastroesophageal reflux disease, esophagitis presence not specified ? Other hyperlipidemia ? Impaired fasting glucose ? PLAN: Orders Placed This Encounter ??? COMPREHENSIVE METABOLIC PANEL ??? CBC WITH DIFFERENTIAL ??? scopolamine (TRANSDERM-SCOP) 1.5 mg (1 mg over 3 days) patch ??? ondansetron (ZOFRAN ODT) 4 mg Tablet, Rapid Dissolve ??? famotidine (PEPCID) 40 mg/5 mL suspension ??? HYDROcodone-acetaminophen (HYCET) 7.5-325 mg/15 mL Solution ?? sleeve gastrectomy is scheduled ?? Consents (pt and spouse) given to patient, must be returned signed prior to surgery. Risks, benefits and expected outcomes were addressed. Questions answered. Drawings of the procedure were made. Elevated risks in this patient particularly were discussed. Pt has MURIEL, this increases the risks of surgery and also the need for ICU admission.. ?? preop labs and antibiotics ordered ?? I reviewed preop workup including testing and consultations, as listed above. ?? Education given on 2 week diet with final / 2nd dietitian visit if not completed ?? Pt to notify me if there are any changes in health or ability to comply with behavior modification in the meantime ?? No steroids by any method for 4 weeks before and atleast 4 weeks after surgery. ?? No MRIs for 6 weeks after surgery ?? pt is to bring the CPAP / Bipap to hospital with them for use, if prescribed. Also discussed is the necessity of ambulating the evening after surgery and often post op to help prevent blood clots. ?? Management of medications include: Scopolamine patch ordered, postop antacids and narcotics script sent to [facility] pharmacy for delivery when patient is leaving the hospital. She will use the prilosec and hold famotidine ?? Pt needs to contact PCP or prescribing physician about medication changes both before and after surgery. Also pt needs to confirm which meds can be crushed and which need to be replaced. - ?? No NSAIDs lifelong- she will be calling her PCP about the Celebrex ?? vitamin replacement discussed. Postoperative multivitamins and calcium advised to start one weekafter surgery. ?? She has lost weight since initial consultation. We discussed that weight loss after surgery is dependent on how dedicated she is to the behavior modifications. Bariatric surgery is not magic . ?? Support group times and locations were shared with the patient- encouraged to attend ?? Postoperative weight loss expectations were discussed with the patient. She should feel comfortable with these expected weight losses before having surgery. These numbers are also very much affected by the patient following diet and exercise as well as her motivation. No guarantees can be made for weight loss or that one would not have complications from the surgery. It takes 1-5 years to losethe maximal amount of weight. consultation weight/ BMI 09/02/2016 Estimated body mass index is 49.29 kg/(m^2) as calculated from the following: Height as of this encounter: 5' 5.5 (1.664 m). Weight as of this encounter: 136.4 kg (300 lb 12.8 oz). preop visit weight/ BMI Estimated body mass index is 47.1 kg/(m^2) as calculated from the following: Height as of this encounter: 5' 5.5 (1.664 m). Weight as of this encounter: 130.4 kg (287 lb 6.4 oz). procedure which patient has decided on sleeve gastrectomy. ?? Crane body weight (IBW) 130 Excess Body Weight (EBW) 170 Reasonable post op weight goal -85= 215 ? Using the Obesity Surgery Mortality Score (Ceci et al in 2007 in Annals of Surgery) and the patients other known health issues, This patient's risk of mortality is increased because: being overage 45, BMI of 50 or greater and Has Hypertension. Certainly ANY surgery in an obese individual (and the health problems known and unknown), carries higher than average risks. ?? Her mortality risks are calculated as 1.5%. These risks were discussed with the patient. She hasalso been advised to discuss this extensively with family so they can make an informed decision. ? Pt needs to make sure this is a good time and that she has care set up for her daughter and 2 grandkids- she confirms that she has set up care Steroids- has not been on for a year ?? Bariatric lab and test review - I have personally reviewed these results cbc Lab Results Component Value Date/Time ?? WBC 8.3 11/05/2016 03:05 AM ?? HGB 13.3 11/05/2016 03:05 AM ?? HCT 41.7 11/05/2016 03:05 AM ?? PLT 320 11/05/2016 03:05 AM ?? MCV 85.8 11/05/2016 03:05 AM ?? bmp Lab Results Component Value Date/Time ?? NA 142 11/05/2016 03:05 AM ?? K 4.5 11/05/2016 03:05 AM ?? CL 106 11/05/2016 03:05 AM ?? CO2 29 11/05/2016 03:05 AM ?? CA 9.1 11/05/2016 03:05 AM ?? BUN 14 11/05/2016 03:05 AM ?? CREAT 0.70 11/05/2016 03:05 AM ?? GLUCOSE 107 (H) 11/05/2016 03:05 AM ?? ANIONGAP 12 08/14/2015 03:10 PM ?? BCRATIO NOT APPLICABLE 11/05/2016 03:05 AM ?? lfts Lab Results Component Value Date/Time ?? ALT 15 11/05/2016 03:05 AM ?? AST 14 11/05/2016 03:05 AM ?? ALKPHOS 166 (H) 11/05/2016 03:05 AM Lab Results Component Value Date/Time ?? BILITOTAL 0.6 11/05/2016 03:05 AM HgbA1c Lab Results Component Value Date/Time ?? HGBA1C 5.9 (H) 11/05/2016 03:05 AM ?? Iron studies Lab Results Component Value Date/Time ?? IRON 63 12/09/2016 09:29 AM ?? FERRITIN 159 06/30/2008 08:00 AM lipids Lab Results Component Value Date/Time ?? CHOLTOT 158 11/05/2016 03:05 AM ?? HDL 47 05/23/2015 12:01 PM ?? LDLCALC 100 (H) 05/23/2015 12:01 PM ?? TRIGLYCERIDE 190 (H) 05/23/2015 12:01 PM ?? tsh Lab Results Component Value Date/Time ?? TSH 0.74 11/05/2016 03:05 AM Vit b1 Lab Results Component Value Date/Time ?? VITAMINB1 23 12/09/2016 09:29 AM Vit b12 Lab Results Component Value Date/Time ?? [id number] 1445 (H) 05/22/2016 07:45 AM Vit d Lab Results Component Value Date/Time ?? [id number] <4 07/12/2011 07:48 AM ?? [id number] 51 07/12/2011 07:48 AM ?? [id number] 37 05/22/2016 07:45 AM ?? VITAMINDTO 40 05/23/2015 12:01 PM ?? Surgical Risk discussion done at every visit The patient asked questions and these were answered. I also judy a picture of the procedures for the patient. risks of each of the weight loss procedure were discussed (which include but are not limited to thefollowing): infection, bleeding, scarring, pain, need for further procedures, stricture and stenosis, anastamotic or staple leak (can be up to 4% for both gastric bypass and sleeve gastrectomy), gastric perforation, heart (Heart Attack) and lung problems (prolonged intubation and ventilation), problems with anesthesia, blood clots, malabsorption (every postoperative patient will need to take vitamins life long), not losing or gaining back weight or losing too much, nausea, vomiting, diarrhea, constipation, dumping syndrome, dehydration, injury to other organs and spleen, Band erosion and migration (slippage), (risks depend on the patients compounding problems). Bleeding, Renal Failure, Prolonged Hospital Stay, Bowel Obstruction, Deep Vein Thrombosis (DVT)/Pulmonary Embolism, Allergic reactions, headaches, itching, medication side-effects, heartburn/reflux, bruising, gout, injury to the other organs or vessels, gas bloating, minor wound drainage, wound opening, scar formation, str reji, urinary tract infection, urinary retention, pressure sores, injury to spleen or surrounding structures, and pneumonia. Ulcer, Fatigue, Osteoporosis, Iron Deficiency Anemia, Vitamin Deficiencies,Bowel Habits (constipation, diarrhea, excessive flatus, Food intolerances), should be avoided for atleast 18 months, Gallbladder Problems, Psychiatric Complications, Temporary Hair Loss, Autonomic Dysfunction (causing dizziness when standing), hypoglycemia . Additionally the option of medical management or even prescription drugs were discussed. If a conversion to an open procedure is required, more likely are wound infection, which may cause significant scarring and healing problems, prolonged wound care, and discomfort. Incisional hernias occur in approximately one-third of patients after an open Weight loss surgery. Hernias will often require an operation to repair. There is a higher chance of certain complications including lung infections, pressure ulcers and blood clots after an open operation. There would also likely be more discomfort and a longer hospital stay. Overall mortality rate 0.2-3 for any procedure. This is dependent on the patients risks factors prior to surgery. If found to have sleep apnea, She is to bring the CPAP / Bipap to hospital with them for use, Also discussed is the necessity of ambulating the evening after surgery and often post op to help prevent blood clots. Also stressed is the importance of the preoperative and post operative diet. If there are any health changes in the meantime, she is to notify me. Additionally, patient should not gain weight prior to surgery. ?? >40 minutes with 50% of the visit spent counseling and/or coordinating the patient care- billed by time ? Time was spent reviewing EMR, assessing and interpretating data, examining the patient, developing and implementing a care plan and discussing the evaluation and treatment of The primary encounter diagnosis was Morbid obesity due to excess calories. Diagnoses of BMI 45.0-49.9, adult, Gastroesophageal reflux disease, esophagitis presence not specified, Other hyperlipidemia, and Impaired fasting glucose were also pertinent to this visit. and related issues with the patient. The patient received after visit instructions. ?? Signed: ?? Elizabeth Hicks M.D., FACS, SULTANA, Diplomat of the Board of Obesity General Surgeon, [facility] Computing Architect of Bariatric Surgery, [address], [address], [place] [address], [address] [address] [address] Office: [phone] 12/26/2016, 11:27 AM documented in this encounter Consult Notes * Beth Weller, KAREEN - 01/22/2017 11:08 AM CDTAssociated Order(s): IP CONSULT TO NUTRITION SERVICES Winifred Daniel Hanyastrid is a 66 y.o. female s/p lap sleeve gastrectomy Diet prior to admission: 2 week pre-op full liquid Current diet order: NPO Swallowing/Chewing Problems: none Food allergies: none Pertinent Past Medical History: Morbid Obesity, depression, GERD, Hypothyroidism, MURIEL, osteoporosis Pertinent Surgical History: cholecystectomy Pertinent Medications: levothyroxine, cyanocobalamin, cholecalciferol (vitamin d3), ondansetron, famotidine Facility-Administered Medications: potassium cl 20 meq in dextrose 5% - nacl 0.45% 1000 ml, ondansetron, famotidine pf, Pertinent Labs: Recent Labs 01/22/17 0406 GLUCOSE 157* BUN 11 CREAT 0.71 NA 138 K 4.3 CL 101 CO2 25 Recent Labs 01/22/17 0406 ALBUMIN 3.5 Recent Labs 01/22/17 0406 ALKPHOS 110* ALT 28 AST 25 AMYLASE 36 Lab Results Component Value Date/Time HEMOGLOBIN A1C 5.9 (H) 11/05/2016 03:05 AM Lab Results Component Value Date/Time CHOLTOT 158 11/05/2016 03:05 AM HDL 47 05/23/2015 12:01 PM LDLCALC 100 (H) 05/23/2015 12:01 PM TRIGLYCERIDE 190 (H) 05/23/2015 12:01 PM Abdomen: Last Bowel Movement (mm/dd/yyyy): 01/20/17 (01/21/17 07) Skin: No skin breakdown per chart review Height: 5' 6 (167.6 cm) (01/21/17 0708) Weight: 133.8 kg (295 lb) (01/21/17 0708) IBW: 130 lb (59 kg) %IBW: 227 EBW: 165 lb Reasonable Post-op Goal Weight: 205 lb (50% EBW lost) Wt Readings from Last 6 Encounters: 01/21/17 133.8 kg (295 lb) 12/26/16 130.4 kg (287 lb 6.4 oz) 11/28/16 129.7 kg (286 lb) 11/28/16 130.8 kg (288 lb 6 oz) 11/13/16 133.4 kg (294 lb) 09/26/16 134 kg (295 lb 6 oz) Body mass index is 47.61 kg/(m^2). Fluid Balance: + 3 L net Assessment: Chart reviewed secondary to consult for nutrition assessment. Pt POD #1 lap sleeve gastrectomy. Reviewed phases of the diet post op. Discussed foods allowed, food to avoid and portion sizes at each phase. Stressed the importance of adhering to guidelines post-op and potential risks if nonadherent. Pt understands they do not advanced to puree stage (Phase 2) until surgeon approval at 2-week post-op follow up visit. Importance of fluid intake discussed with patient. Needs to get 48-64 oz fluids a day, will need to sip all day, do not drink past level of fullness. Symptoms of dehydration discussed. Reviewed daily protein requirements. Pt has selected and purchased a stock of Premier protein providing 30 grams/serving. Pt has also purchased supply of chewable MVI and Ca+D and understands importance of daily supplementation. Answered all questions accordingly. Provided portionedplate, high protein/low carb full liquid recipes and sample menus. Encouraged pt to follow up with RD post-op with any dietary questions. Contact info provided. Pt also understands to call office for any post op medical concerns. Patient aware meds need to be crushed, liquid and has addressed this, encouraged to see PCP within two weeks to evaluate meds. 's card with office number provided. Intervention/Plans: Advance diet as appropriate Wt loss 60-80 grams protein/day 48-64 oz fluid/day Daily MVI BM WNL Nutrition goal: Weight loss 2/2 decreased intake, adequate protein and fluid intake, labs WNL, BM WNL RD will follow to assist in nutrition interventions. Steff Weller RD,LD documented in this encounter OR Notes * Brenda-OP - Steff Mas RN - 01/21/2017 11:15 AM CDT Waiting to give report * Brenda-OP - Steff Mas RN - 01/21/2017 11:12 AM CDT Reacting well, care plan goals met, transfer to 6th floor with permission of anesthesia. * Brenda-OP - Steff Mas RN - 01/21/2017 10:50 AM CDT Pt c/o feels like a tight band across my chest , notified anesthesia, anesthesia at bedside, received no orders. * Brenda-OP - Steff Mas RN - 01/21/2017 10:45 AM CDT Pt required extended PACU stay due to nausea and pain. * Brenda-OP - Steff Mas RN - 01/21/2017 10:45 AM CDT 1. POTENTIAL FOR PAIN RELATED TO SURGICAL/PROCEDURAL INTERVENTION Interventions: Assess level of pain/comfort utilizing verbal/non-verbal pain scales; assess cultural or synagogue indicators attached to pain; administer pain medications as prescribed; utilize non-pharmacologic pain control and comfort measures. Expected Outcome: Patient demonstrates and reports adequate pain control. Outcome Met: Yes 2. POTENTIAL FOR ALTERATION IN THERMOREGULATORY, CIRCULATORY, RESPIRATORY, FLUID & ELECTROLYTE STATUS Interventions: Perform on-going physical assessment; maintenance of airway or mechanical ventilation; monitor level of consciousness; initiate safety measures; observe patient's respiratory status and oxygen saturation; obtain measurements of ongoing hemodynamic parameters, cardiac rhythm, and temperature; monitor intake and output; inspect wound dressings and/or drain output; perform prescribed therapeutic regimens, treatments, and tests; document and/or communicate care given. Expected Outcome: Patient will maintain functional status compatible with preoperative status. Outcome Met: Yes * Operative Report - Elizabeth Mcbride MD - 01/21/2017 10:00 AM CDT Operative Report : [place], [place] Patient: Winifred Piper / 66 y.o. / female : 1950 Date: 01/21/2017 CSN: [id number] Preoperative Diagnosis: obesity Postoperative Diagnosis: Same Procedure Performed: 1. Laparoscopic sleeve gastrectomy 2. esophagogastroduodenoscopy Surgeon: Elizabeth Hicks MD FACS Assisting Surgeon: Mark Jane MD, FACS Surgical Staff: [employer] Football Coach: Adri Roman RN Scrub: Aruna Blanton Assistant: Kirsty Salvador RN Anesthesia: General Estimated Blood Loss: nil Complications: None Findings: none unexpected Description of Technique: The patient signed an extensive consent and was brought to the operating room where she was laid supine on the operating room table and placed under general endotracheal anesthesia by Anesthesiology.She was identified as a correct patient, preoperative heparin was given, SCDs were placed, and preoperative antibiotics were given. An EGD scope was passed to the pylorus and then placed along the lesser curvature. The scope was retroflexed. No obvious abnormalities were seen to the pylorus. The abdomen was prepped and draped in normal sterile fashion. The umbilical stalk was uplifted 15 cm belowthe epigastrium. I placed a 5-mm Optiview trocar under direct visualization and once we are in the abdomen, insufflation commenced. A camera was placed in this trocar and then we looked to the left of the abdomen where we placed two additional 5-mm trocars at the left and right mid clavicular line,and then a 15-mm trocar versaport at the midclavicular line on the right. We began by inspecting the abdomen. Visual inspection showed there was no obvious injury upon entering the abdomen. We first looked at the angle of Hiss. There did not seem to be a hiatal hernia. We then marked a spot about 6cm along the greater curve at the level of the incisura and started taking down the vascular supply with the ultrasonic scapel. This was done to the level of the spleen. The posterior attachments were taken down as well so the fundus was mobile. We fired a 45 howell MAURICIO starting at the incisura savanna to start dividing the stomach. We followed the line of the EGD with a little space. Any areas of minute bleeding were controlled with cautery and medium - large 10mm clips.Several more fires were taken to just distal of the angle of hiss and the stomach was completely free. It was removed. The staple line was inspected again from bleeding and clips were placed along it. There was hemostasis. A leak test was performed with the EGD. A 10 fluted SHARONDA drain was placed under the staple line. All the trocars were removed under direct visualization. All the incisions were closed with 4-0 Biosyn suture. Local anesthetic was injected. The patient tolerated the procedure well. She was awoken and taken to the recovery room in good condition. The assistance of a highly qualified data control assistant is a necessary part of the gastric sleeve procedure. A laparoscopic sleeve gastrectomy is an advanced laparoscopic procedure which requires two surgeons. The assistant professor of radiology surgeon assists in holding tissue for optimum visualization, they are also needed to perform a leak test with the EGD scope in addition to many other roles as necessary during the procedure. Without a board certified orthotist, the procedure would take longer and wouldrequire the patient to undergo additional, unnecessary time under anesthesia which could present additional health risks to the patient. * Brenda-OP - Steff Mas RN - 01/21/2017 9:37 AM CDT Pt admitted to recovery following laparoscopic sleeve gastrectomy with general anesthesia, dressing/incision dry and intact, drain in place with small amount of drainage, VSS, pt resting quietly, will continue to monitor. * Brenda-OP - Zofia Turcios RN - 01/21/2017 6:58 AM CDT 1. POTENTIAL FOR ANXIETY RELATED TO SURGICAL INTERVENTION: Interventions: Convey caring/supportive attitude; offer emotional support as needed; provide comfort measures (warm blanket, pillow, quiet environment); allow patient opportunity to verbalize concerns/fears/questions; explore coping behaviors; allow age-specific/special needs family support Expected Outcome: Patient will demonstrate decreased anxiety or adaptive coping strategies Outcome Met: Yes 2. KNOWLEDGE DEFICIT RELATED TO PROCEDURE/ENVIRONMENT: Interventions: Assess learning needs and willingness to learn; give clear, concise explanations of the environment and sequence of events surrounding the periop experience; address patient/family questions and concerns; provide teaching as indicaitated , provide teaching related to postoperative pain assessment utilizing pain scales. Expected Outcome: Patient verbalizes or demonstrates awareness/understanding of surgery and perioperative experience. Outcome Met: Yes 3. Chronic Disease State: Dyspnea Assessment: Patient exhibits dyspnea at rest or with moderate exertion? No documented in this encounter Miscellaneous Notes * Care Plan - Breanna Goodwin RN - 01/22/2017 4:17 PM CDT Discharge teaching complete. Patient and verbalized understanding. SHARONDA and IV removed. Patient wheeled to front door via wheel chair with prescriptions in hand. * Care Plan - Kaylee Spain RN - 01/22/2017 10:00 AM CDT DM Education Problem: Nutrition / Endocrine Goal: Prevent/manage hypo/hyperglycemia with suggested BG goal of 70-180. Outcome: Progressing See glucose/endocrine accordion for details. Aware of admission through daily DM medication and BG/A1c reports. Chart reviewed for glycemic control and patient discussed in multidisciplinary rounds. Winifred Piper is a 66 y.o. female patient of Eldon Koehler MD who was admitted on 01/21/2017 6:47 AM withMorbid obesity due to excess calories. Patient has No history of DM that is typically treated w/ nothing at home per HELP AID medication list and verified by patient. Most recent A1c: Lab Results Component Value Date/Time HGBA1C 5.9 (H) 11/05/2016 03:05 AM HGBA1C 6.0 05/23/2015 12:01 PM HGBA1C 6.5 (H) 01/24/2015 07:59 AM LDLCALC 100 (H) 05/23/2015 12:01 PM CREAT 0.71 01/22/2017 04:06 AM IP glycemic plan of care: ?? POC glucose fingersticks: q6h ?? Humalog per low dose correction scale for POC glucose >140 on q6h accuchecks ?? Diet: DIET BARIATRIC Clear Liquid ?? Hypoglycemia protocol in place: no ?? Steroids: yes, Dexamethasone at 0829 on 01/21/17 BG/treatment review (see Glucose Accordion for details): ?? Random initial POC glucose on admission 01/21/2017: 91 at 0730 ?? Subsequent glucose checks on date of admission: 117, 154, 182, & 156. ?? Total Insulin dose administered on date of admission: 3 units of Humalog ?? Today's current total amount of insulin administered: 0 ?? 01/22/17 BG's: 157 (serum) & 139 Suggestions: Continue current plan of care at this time IP glycemic plan of care: Explained IP glycemic plan of care; voices understanding and agrees to plan. Diabetes nurse available to follow as needed. * Care Plan - Iliana Jaffe LCSW - 01/22/2017 6:42 AM CDT INTERDIS PW: BARIATRIC SURGERY - POST-OP Pathway Day of Surgery ??? Discharge Planning: Discharge needs identified and patient verbalizes understanding of medications and follow-up. Met Discharge Planning ??? Identify discharge needs upon admission and through discharge Progressing Clinical documentation reviewed. Comprehensive Discharge Planning Risk Assessment was completed. Total Score of 9 or below does not identify immediate needs for discharge. Age Score: 4 Disability Score: 0 Prior Living Status Score: 0 Mobility Limitation Score: 0 TOTAL SCORE: [address] consult if needs for discharge are identified. Care Management will continue to follow for discharge planning. * Care Plan - Ghada Baird RN - 01/22/2017 1:39 AM CDT INTERDIS PW: BARIATRIC SURGERY - POST-OP Pathway Day of Surgery ??? Fluid Management: (Maintain Hydration) Patient verbalizes understanding of the importance of hydration. Urine output equal to or greater than 30 mL/Hour. Met ??? Activity/Rehab: Patient will be able to perform ADLs and ambulate day of surgery with minimal assistance. Encourage ambulation within two hours after recovery from anesthesia. Met ??? Hemodynamics: Patient able to maintain SBP greater than 90 and less than 150 mmHg, HR greater than 50 and less than 100/min, Respirations greater than 10/min and less than 29/min, O2 sat greater than or equal to 92%. Met ??? Pain Management: Patient verbalizes pain reduction and determines acceptable level/goal (0-10) that will allow for maximal function with ADLs. Met ??? Surgical Site: (Impaired Skin Integrity) Patient is free of signs of infection, (fever, redness, swelling, drainage) Wound and drain assessment (target </= 30 mL/day). Met ??? Nutrition: Patient verbalizes understanding of dietary restriction and modification. Patient verbalizes none or decreased nausea and vomiting. Met ??? Respiratory: Patient verbalizes understanding of and compliance with O2 devices. Met ??? Neurovascular: (DVT/VTE Prevention) Free of signs and symptoms of DVT/ VTE. Ambulation day of surgery. Encourage ambulation within two hours after recovery from anesthesia. Met ??? Discharge Planning: Discharge needs identified and patient verbalizes understanding of medications and follow-up. Met INTERDIS PW: SKIN/PRESSURE INJURY PREVENTION Pathway Day 1 ??? Skin Integrity/Integumentary: Interventions initiated to maintain intact skin. Patient maintains intact skin with Aquilino Score maintained or improved. Met ??? Nutrition Management: Patient/health care delegate understands importance of adequate protein and fluid intake. Met ? ? Bladder & Bowel Movement: Moisture management for incontinence initiated and maintained or patient is continent of urine/stool. Met ??? Activity/Rehab: Patient/health care delegate understands repositioning/offloading techniques orpatient moves independently. Met [place] Pathway: Adult and Obstetrics Day 1 ??? Patient, family, or healthcare designee is participating in individual care plan process Met ??? Patient, family, or healthcare designee understands side effects of medications Met Discharge Planning ??? Identify discharge needs upon admission and through discharge Progressing Gastrointestinal ??? Achieve optimal gastrointestinal function by discharge or maintain baseline function Progressing Infection Risk/Actual ??? Infection Risk/Actual: Infection prevention, control, or resolution by discharge Progressing Pain, Potential/Actual ??? Verbalizes/displays acceptable comfort level or baseline comfort level Progressing Safety/Fall ??? Safety/Fall: Absence of fall, injury, harm during hospitalization Progressing Skin ??? Maintain skin integrity and/or promote wound healing by discharge Progressing documented in this encounter Plan of Treatment Upcoming Encounters Date Type Department Care Team (Late st Contact Info) Description 07/27/2024 9:40 AM CDT Office Visit [facility] [address] [place] [address] [address] [place] [address] Eldon Koehler MD [address] [facility] [address] [place] [address] documented as of this encounter Procedures Procedure Name Priority Date/Time Associated Diagnosis Comments POC GLUCOSE Routine 01/22/2017 11:38 AM CDT XR UPR GI WATER MADI CONTRAST Routine 8:59 AM CDT POC GLUCOSE Routine 01/22/2017 5:37 AM CDT CBC WITH DIFFERENTIAL Routine 01/22/2017 4:06 AM CDT AMYLASE Routine 01/22/2017 4:06 AM CDT COMPREHENSIVE METABOLIC PANEL Routine 4:06 AM CDT AMYLASE, BODY FLUID Routine 01/22/2017 4:01 AM CDT POC GLUCOSE Routine 01/21/2017 11:42 PM CDT POC GLUCOSE Routine 01/21/2017 4:13 PM CDT POC GLUCOSE Routine 01/21/2017 1:51 PM CDT POC GLUCOSE Routine 01/21/2017 9:48 AM CDT PATHOLOGY Pathology 01/21/2017 9:08 AM CDT Adult BMI 45.0-49.9 kg/sq m ESOPHAGOGASTRODUODENOSCOPY 01/21 7:40 AM CDT Adult BMI 45.0-49.9 kg/sq m Case Notes [id number] MEDICARE A & B, AARP SUPPLEMENT GASTRECTOMY LONGITUDINAL LAPAROSCOPIC 01/21/2017 7:40 AM CDT Adult BMI 45.0-49.9 kg/sq m Case Notes [id number] MEDICARE A & B, AARP SUPPLEMENT POC GLUCOSE Routine 01/21/2017 7:30 AM CDT documented in this encounter Results * (ABNORMAL) POC GLUCOSE (01/22/2017 11:38 AM CDT) GLUCOSE POC 153(H) 79 - 99 mg/dL 01/22/2017 12:[address] [facility] [employer] [facility] PIT INSPECTOR NAME POC Lilliam Nuñez 01/22/2017 12:[address] [facility] [employer] [facility] Whole blood specimen (specimen) 01/22/2017 11:38 AM CDT 01/22/2017 12:00 PM CDT Elizabeth Hicks MD POINT OF CARE TE [facility]ING [facility] [employer] [facility] CLIA# [id number] [address] [place] [address] * XR UPR GI WATER MADI CONTRAST (01/22/2017 8:59 AM CDT) Anatomical Region Laterality Modality Abdomen Computed Radiogr aphy 01/22/2017 8:59 AM CDT Impressions 01/23/2017 8:02 AM CDT IMPRESSION: 1. ??Postoperative gastric sleeve procedure. No peritoneal contrast extravasation. 2. ??Gastroesophageal reflux. DICTATION LOCATION: Location 2 - [facility] Narrative 01/23/2017 8:02 AM CDT XR UPR GI WATER MADI CONTRAST DATE: 01/22/2017 8:59 AM HISTORY: ??Adult BMI 45.0-49.9 kg/sq m. COMPARISON: None. FINDINGS: Single-contrast water-soluble upper GI examination was performed. The patient is status post gastric sleeve procedure. Preliminary abdominal radiograph shows postsurgical changes in the upper abdomen related to gastric sleeve and cholecystectomy. There is stabilization of the lower lumbar spine. The single-contrast water-soluble upper GI examination shows postsurgical changes related to gastric sleeve. There is no peritoneal contrast extravasation. There is evidence of gastroesophageal reflux. FLUOROSCOPY TIME: 0.5 minutes Procedure Note Oniel Kumari MD - 01/23/2017 XR UPR GI WATER MADI CONTRAST DATE: 01/22/2017 8:59 AM HISTORY: Adult BMI 45.0-49.9 kg/sq m. COMPARISON: None. FINDINGS: Single-contrast water-soluble upper GI examination was performed. The patient is status post gastric sleeve procedure. Preliminary abdominal radiograph shows postsurgical changes in the upper abdomen related to gastric sleeve and cholecystectomy. There is stabilization of the lower lumbar spine. The single-contrast water-soluble upper GI examination shows postsurgical changes related to gastric sleeve. There is no peritoneal contrast extravasation. There is evidence of gastroesophageal reflux. FLUOROSCOPY TIME: 0.5 minutes IMPRESSION IMPRESSION: 1. Postoperative gastric sleeve procedure. No peritoneal contrast extravasation. 2. Gastroesophageal reflux. DICTATION LOCATION: Location 2 - [facility] Elizabeth Hicks MD DIAGNOSTIC IMAGI NG ORDERABLES * (ABNORMAL) POC GLUCOSE (01/22/2017 5:37 AM CDT) [facility] GLUCOSE POC 139(H) 79 - 99 mg/dL 01/22/2017 5:[address] [facility] [employer] [facility] PIT INSPECTOR NAME POC Janet Morocho 01/22/2017 5:[address] [facility] [employer] [facility] Whole blood specimen (specimen) 01/22/2017 5:37 AM CDT 01/22/2017 5:40 AM CDT Elizabeth Hicks MD POINT OF CARE TE [facility] [employer] [facility] CLIA# [id number] [address] [place] [address] * (ABNORMAL) COMPREHENSIVE METABOLIC PANEL (01/22/2017 4:06 AM CDT) [facility] SODIUM 138 136 - 145 mmol/L 01/22/2017 4:[address] [facility] [employer] [facility] POTASSIUM 4.3 3.5 - 4.9 mmol/L 01/22/2017 4:[address] [facility] [employer] [facility] CHLORIDE 101 96 - 108 mmol/L 01/22/2017 4:34 AM [facility] [employer] [facility] CO2 25 22 - 30 mmol/L 01/22/2017 4:34 AM [facility] [employer] [facility] CALCIUM 8.6 8.6 - 10.2 mg/dL 01/22/2017 4:34 AM [facility] [employer] [facility] BUN 11 6 - 20 mg/dL 01/22/2017 4:34 AM [facility] [employer] [facility] CREATININE 0.71 0.51 - 0.95 mg/dL 01/22/2017 4:34 AM [facility] [employer] [facility] GLUCOSE 157(H) 79 - 99 mg/dL 01/22/2017 4:34 AM [facility] [employer] [facility] TOTAL PROTEIN 6.3 6.0 - 8.3 g/dL 01/22/2017 4:34 AM [facility] [employer] [facility] ALBUMIN 3.5 3.4 - 4.8 g/dL 01/22/2017 4:34 AM [facility] [employer] [facility] BILIRUBIN TOTAL 0.5 0.2 - 1.0 mg/dL 01/22/2017 4:34 AM [facility] [employer] [facility] ALKALINE PHOSPHATASE 110(H) 35 - 104 U/L 01/22/2017 4:34 AM [facility] [employer] [facility] AST 25 12 - 32 U/L 01/22/2017 4:34 AM [facility] [employer] [facility] ALT 28 <31 U/L 01/22/2017 4:34 AM [facility] [employer] [facility] GFR >60 >=60 mL/min/1.7 3 sq meter 01/22/2017 4:34 AM [employer] Comment: eGFR has not been validated for use in the elderly (> 70 years of age), women, patients with serious co-morbid conditions, or persons with extremes of body size or muscle mass and should also be interpreted with caution in patients with acute kidney failure, dialysis dependent patients, patients reporting exceptional dietary intake (e.g. vegetarian diet, high protein diets, creatine supplementation), and patients with severe liver disease. Based on National Kidney Disease Education Program If patient is , please refer to the GFR result. GFR, >60 >=60 mL/min/1.7 3 sq meter 01/22/2017 4:34 AM CDT [facility] [place] ANION GAP 12 8 - 16 mmol/L 01/22/2017 4:34 AM CDT [facility] [place] Blood Venipuncture / Unknown 01/22/2017 4:06 AM CDT 01/22/2017 4:10 AM CDT Elizabeth Hicks MD CHEMISTRY ORDERA BLES [employer] [facility] CLIA# [id number] [address] [place] [address] * (ABNORMAL) CBC WITH DIFFERENTIAL (01/22/2017 4:06 AM CDT) WBC 12.3(H) 4.0 - 9.8 K/uL 01/22/2017 4:18 AM CDT [facility] [employer] [facility] RBC 4.26 3.90 - 4.90 M/uL 01/22/2017 4:18 AM CDT [facility] [place] HEMOGLOBIN 11.8 11.8 - 14.8 g/dL 01/22/2017 4:18 AM CDT [facility] [place] HEMATOCRIT 36.8 35.5 - 44.0 % 01/22/2017 4:18 AM CDT [facility] [place] MCV 86.4 82.0 - 99.0 fL 01/22/2017 4:18 AM CDT [facility] [place] MCH 27.7 27.2 - 32.6 pg 01/22/2017 4:18 AM CDT [facility] [place] MCHC 32.1 31.5 - 35.5 g/dL 01/22/2017 4:18 AM CDT [facility] [place] RDW 15.1(H) 11.5 - 14.5 % 01/22/2017 4:18 AM CDT [facility] [place] RDW-STDEV 47.8 37.1 - 48.7 fL 01/22/2017 4:18 AM CDT [facility] [place] PLATELETS 244 140 - 350 K/uL 01/22/2017 4:18 AM CDT [facility] [place] MPV 11.0 9.3 - 12.4 fL 01/22/2017 4:18 AM CDT [facility] NEUTROPHILS 76 % 01/22/2017 4:[address] [facility] [employer] [facility] LYMPHOCYTES 15 % 01/22/2017 4:[address] [facility] [employer] [facility] MONOCYTES 9 % 01/22/2017 4:[address] [facility] [employer] [facility] EOSINOPHILS 0 % 01/22/2017 4:[address] [facility] [employer] [facility] BASOPHILS 0 % 01/22/2017 4:[address] [facility] [employer] [facility] IMMATURE GRANULOCYTES 0 % 01/22/2017 4:[address] [facility] [employer] [facility] NEUTROPHIL ABSOLUTE 9.30(H) 1.90 - 7.00 K/uL 01/22/2017 4:[address] [facility] [employer] [facility] LYMPHOCYTE ABSOLUTE 1.80 0.70 - 4.50 K/uL 01/22/2017 4:[address] [facility] [employer] [facility] MONOCYTE ABSOLUTE 1.12 0.10 - 1.30 K/uL 01/22/2017 4:[address] [facility] [employer] [facility] EOSINOPHIL ABSOLUTE 0.00 0.00 - 0.70 K/uL 01/22/2017 4:[address] [facility] [employer] [facility] BASOPHILS ABSOLUTE 0.02 0.00 - 0.20 K/uL 01/22/2017 4:[address] [facility] [employer] [facility] IMMATURE GRANULOCYTES ABSOLUTE 0.04(H) 0.00 - 0.03 K/uL 01/22/2017 4:[address] [facility] [employer] [facility] Blood Venipuncture / Unknown 01/22/2017 4:06 AM CDT 01/22/2017 4:[address] [facility] [employer] [facility] [place] - 01/22/2017 4:18 AM CDT Please Note: effective 10/31/16 some reference ranges have been revised. Elizabeth Hicks MD HEMATOLOGY ORDER [facility] [employer] [facility] CLIA# [id number] [address] [place] [address] * AMYLASE (01/22/2017 4:06 AM CDT) AMYLASE 36 28 - 100 U/L 01/22/2017 4:34 AM CDT [facility] Blood Venipuncture / Unknown 01/22/2017 4:06 AM CDT 01/22/2017 4:10 AM CDT Elizabeth Hicks MD CHEMISTRY ORDERA BLES Performing Organization Address [facility]/ZIP Co de Phone Number [facility] CLIA# [id number] [address] [place] [address] * AMYLASE, BODY FLUID (01/22/2017 4:01 AM CDT) AMYLASE, FLD 30 U/L 01/22/2017 4:38 AM CDT [facility] Comment:Amylase Fluid:Normal : < = Serum Amylase Body fluid (Other, specify) Collection / Unknown 01/22/2017 4:01 AM CDT 01/22/2017 4:10 AM CDT Elizabeth Hicks MD BODY FLUIDS AND STOOLS Performing Organization Address [facility] Co de Phone Number [facility] CLIA# [id number] [address] [place] [address] * (ABNORMAL) POC GLUCOSE (01/21/2017 11:42 PM CDT) GLUCOSE POC 156(H) 79 - 99 mg/dL 01/21/2017 11:50 PM CDT [facility] PIT INSPECTOR NAME POC Ghada Baird 01/21/2017 11:50 PM CDT [facility] Whole blood specimen (specimen) 01/21/2017 11:42 PM CDT 01/21/2017 11:50 PM CDT Elizabeth Hicks MD POINT OF CARE TE STING Performing Organization Address [facility]/ZIP Co de Phone Number [facility] CLIA# [id number] [address] [place] [address] * (ABNORMAL) POC GLUCOSE (01/21/2017 4:13 PM CDT) GLUCOSE POC 182(H) 79 - 99 mg/dL 01/21/2017 4:[address] [facility] [employer] [facility] PIT INSPECTOR NAME POC Aniya Miguel 01/21/2017 4:40 PM [facility]T [facility] Whole blood specimen (specimen) 01/21/2017 4:13 PM CDT 01/21/2017 4:40 PM CDT Elizabeth Hicks MD POINT OF CARE TE STING Performing Organization Address City/[facility]/ZIP Co de Phone Number [facility] CLIA# [id number] [address] [place] [address] * (ABNORMAL) POC GLUCOSE (01/21/2017 1:51 PM CDT) GLUCOSE POC 154(H) 79 - 99 mg/dL 01/21/2017 2:[address] [facility] [employer] [facility] PIT INSPECTOR NAME POC Aniya Miguel 01/21/2017 2:[address] [facility] [employer] [facility] Whole blood specimen (specimen) 01/21/2017 1:51 PM CDT 01/21/2017 2:01 PM CDT Elizabeth Hicks MD POINT OF CARE TE STING Performing Organization Address [facility]/ZIP Co de Phone Number [facility] [employer] [facility] CLIA# [id number] [address] [place] [address] * (ABNORMAL) POC GLUCOSE (01/21/2017 9:48 AM CDT) GLUCOSE POC 117(H) 79 - 99 mg/dL 01/21/2017 9:50 AM CDT [facility] PIT INSPECTOR NAME POC ChaceSteff 01/21/2017 9:50 AM CDT [facility] Whole blood specimen (specimen) 01/21/2017 9:48 AM CDT 01/21/2017 9:50 AM CDT Elizabeth Hicks MD POINT OF CARE TE STING [facility] CLIA# [id number] [address] [place] [address] * PATHOLOGY (01/21/2017 9:08 AM CDT) CASE REPORT Surgical Pathology Report ? Case: [id number] ? Authorizing Provider: ??Elizabeth Mcbride MD ??Collected: ? 01/21/2017 09:08 AM ? Ordering Location: ? [facility] ??Received: ?01/21/2017 11:58 AM ? Operating Room ? Pathologist: ? Sarkis Lemons MD ? Specimen: ?Stomach, portion of stomach, miesba ? 01/22/2017 3:52 PM CDT [facility] FINAL DIAGNOSIS Stomach, sleeve gastrectomy: - Fundic gland polyps. - Hyperplastic polyp. - Clinical history of obesity. 01/22/2017 3:52 PM CDT [facility] ATIVE PROCEDURE Laparoscopic sleeve gastrectomy, possible open, EGD. 01/22/2017 3:52 PM [facility] CLINICAL DIAGNOSIS Adult body mass index 45.0-49.9 (Z68.42). 01/22/2017 3:52 PM [facility] GROSS DESCRIPTION Received in one container labeled Miguel Angel Piper, portion of stomach is a 23.0 x 4.0 x 2.5-cm wedge of stomach with minimal attached adipose tissue. A 23.0-cm long, linear staple line is present along one edge. The serosa is red-howell and smooth. The lumen contains minimal dark red-brown, mucoid fluid. The mucosa is red-howell. It demonstrates normal rugal folds. At least nine red-howell, polypoid areas are identified and range from 0.1 x 0.2 cm to 0.7 x 0.4 cm. These come to within 1.3 cm from the stapled margin. [employer] sections are submitted as follows: A1-tangential section from stapled margin; A2-polypoid areas on mucosal surface (nine); A3-additional sections of mucosa and stomach wall. BRENNAN/odell 01/22/2017 3:52 PM [facility] MICROSCOPIC DESCRIPTION Sections show multiple fundic gland polyps and a hyperplastic polyp. There is relatively scant inflammation. Helicobacter organisms are not identified. There is no goblet cell metaplasia or evidence of malignancy. 01/22/2017 3:52 PM [facility] COMMENT Special stain and/or immunohistochemical results are interpreted with controls that demonstrate appropriate staining reactions. Note on use of immunocytochemistry reagents: This test was developed and its performance characteristic determined by [facility], Department of Laboratory Medicine. It has not been cleared or approved by the U.S. Food and Drug Administration. The FDA has determined that such clearance or approval is not necessary. The test is used for clinical purpose. It should not be regarded as investigational or for research. This laboratory is certified to perform high complexity testing. Case types starting with WS, WF, WB and WH are performed by [address], [address]. All other case types are performed by [address] [facility], [address]. 01/22/2017 3:52 PM CDT [email or web address] [facility] Tissue ENTIRE STOMACH / Unknown 01/21/2017 9:08 AM CDT 01/21/2017 11:58 AM CDT Elizabeth Hicks MD PATHOLOGY/CYTOLO GY ORDERABLES [facility] [employer] [facility] CLIA# [id number] [address] [place] [address] * POC GLUCOSE (01/21/2017 7:30 AM CDT) GLUCOSE POC 91 79 - 99 mg/dL 01/21/2017 7:41 AM CDT [email or web address] [facility] PIT INSPECTOR NAME POC SHANNA ROSS 01/21/2017 7:41 AM CDT [email or web address] [facility] Whole blood specimen (specimen) 01/21/2017 7:30 AM CDT 01/21/2017 7:41 AM CDT Elizabeth Hicks MD POINT OF CARE TE STING [facility] [employer] [facility] CLIA# [id number] [address] [place] [address] documented in this encounter Visit Diagnoses Diagnosis Morbid obesity due to excess calories- Primary Adult BMI 45.0-49.9 kg/sq m Body Mass Index 45.0-49.9, adult Hyperlipemia Other and unspecified hyperlipidemia Recurrent major depressive disorder, in partial remission Osteoarthritis Osteoarthrosis, unspecified whether generalized or localized, unspecified site Hypothyroidism Unspecified hypothyroidism Asthma Unspecified asthma Sleep apnea Unspecified sleep apnea Impaired fasting glucose Restless leg syndrome Restless legs syndrome (RLS) GERD (gastroesophageal reflux disease) Esophageal reflux Fibromyalgia Mylagia and myositis, unspecified Hyperhidrosis Primary focal hyperhidrosis documented in this encounter Administered Medications Inactive Administered Medications - up to 3 most recent administrations Medication Order MAR Action Action Date Dose Rate Site cefOXitin (MEFOXIN) infusion 2,000 mg 2,000 mg, IV, PRE-PROCEDURE ONCE, 1 dose, Starting on Fri01/21/17 at 0658, Until Fri01/21/17 at 0835, Routine, Pre-op, Antibiotic Indication: Surgical prophylaxis New Bag 01/21/2017 8:05 AM CDT 2,000 mg enoxaparin (LOVENOX) injection 40 mg 40 mg, subCUT, TWO TIMES DAILY, First dose on Fri01/21/17 at 2200, Until Discontinued, Routine, Post-op - Floor Given 01/22/2017 7:48 AM CDT 40 mg Abdomen, Left Lower Quadrant Given 01/21/2017 10:08 PM CDT 40 mg A bdomen, Left Lower Quadrant famotidine PF (PEPCID) 20 mg/2 mL injection 20 mg 20 mg, IV, TWO TIMES DAILY, First dose on Fri01/21/17 at 1215, Until Discontinued, Routine, Post-op - Floor Given 01/22/2017 7:44 AM CDT 20 mg Given 01/21/2017 7:55 PM CDT 20 mg Given 01/21/2017 12:58 PM CDT 20 mg heparin injection 5,000 Units 5,000 Units, subCUT, INTRA-PROCEDURE ONCE, 1 dose, Starting on Fri01/21/17 at 0703, Until Fri01/21/17 at 0831, Routine, Pre-op Given 01/21/2017 8:31 AM CDT 5,000 Units Abdomen, Left Lower Quadrant HYDROcodone-acetaminophe n (HYCET) 7.5-325 mg/15 mL oral solution 15 mL 15 mL (7.5 mg), Oral, EVERY 4 HOURS PRN, Starting on Fri01/21/17 at 1209, Until Fri01/22/17 at 1835, Pain (See admin instructions), Routine, Post-op - Floor Given 01/22/2017 11:48 AM CDT 7.5 mL HYDROmorphone (DILAUDID) 1 mg/mL injection 0.3 mg 0.3 mg, IV, POST-PROCEDURE Q 5 MINUTES PRN, Starting on Fri01/21/17 at 0855, Until Fri01/21/17 at 1159, Pain, Mild, For pain scale 1-3, Routine, PACU Given 01/21/2017 10:41 AM CDT 0.3 mg Given 01/21/2017 10:31 AM CDT 0.3 mg Given 01/21/2017 10:20 AM CDT 0.3 mg HYDROmorphone (DILAUDID) 1 mg/mL injection 0.3 mg 0.3 mg, IV, EVERY 4 HOURS PRN, Starting on Fri01/21/17 at 1209, Until Fri01/22/17 at 1835, Pain (See admin instructions), Routine, Post-op - Floor Given 01/21/2017 4:37 PM CDT 0.3 mg insulin lispro (HumaLOG) 100 units/mL variable dose injection subCUT, EVERY 6 HOURS, First dose on Fri01/21/17 at 1800, Until Discontinued, Routine Given 01/22/2017 11:44 AM CDT 1 Units Abdomen, Left Lower Quadrant Given 01/21/2017 11:44 PM CDT 1 Units A rm, Left Upper Given 01/21/2017 4:17 PM CDT 2 Units Ar m, Right iohexol (OMNIPAQUE) 350 mg/mL oral solution 50 mL 50 mL, Oral, PRE-PROCEDURE ONCE, 1 dose, Starting on Fri01/22/17 at 0844, Until Fri01/22/17 at 0850, Routine Given 01/22/2017 8:50 AM CDT 50 mL Lactated Ringers bolus solution 1,000 mL 1,000 mL, IV, ONE TIME ONLY, 1 dose, On Fri01/21/17 at 0715, at 2,000 mL/hr, Administer over 30 Minutes, Routine New Bag 01/21/2017 7:34 AM CDT 1,000 mL 2000 mL/hr lidocaine PF 1 % (XYLOCAINE MPF) injection 0.1 mL 0.1 mL, Infiltration, PRE-PROCEDURE ONCE PRN, 1 dose, Starting on Fri01/21/17 at 0658, Until Fri01/21/17 at 0734, Other (See Comment), with IV start, Routine, Pre-op Given 01/21/2017 7:34 AM CDT 0.1 mL meclizine (BONINE) chewable tablet 25 mg 25 mg, Oral, PRE-PROCEDURE ONCE, 1 dose, Starting on Fri01/21/17 at 0802, Until Fri01/21/17 at 0806, Routine Given 01/21/2017 8:06 AM CDT 25 mg metoclopramide HCl (REGLAN) oral solution 10 mg 10 mg, Oral, EVERY 6 HOURS PRN, Starting on Fri01/21/17 at 1219, Until Fri01/22/17 at 1835, Nausea/Emesis, Routine Given 01/21/2017 8:10 PM CDT 10 mg ondansetron (ZOFRAN) 4 mg/2 mL injection 4 mg 4 mg, IV, POST-PROCEDURE ONCE PRN, 1 dose, Starting on Fri01/21/17 at 0855, Until Fri01/21/17 at 1019, Nausea/Emesis, Routine, PACU Given 01/21/2017 10:19 AM CDT 4 mg ondansetron (ZOFRAN) 4 mg/2 mL injection 4 mg 4 mg, IV, EVERY 6 HOURS PRN, Starting on Fri01/21/17 at 1209, Until Fri01/22/17 at 1835, Nausea/Emesis, Routine, Post-op - Floor Given 01/22/2017 9:00 AM CDT 4 mg Given 01/22/2017 3:00 AM CDT 4 mg Given 01/21/2017 10:12 PM CDT 4 mg potassium Cl 20 mEq in dextrose 5% - NaCl 0.45% 1000 mL infusion IV, at 125 mL/hr, CONTINUOUS, Starting on Fri01/21/17 at 1215, Until Fri01/22/17 at 1835, Routine, Post-op - Floor New Bag 01/22/2017 4:45 AM CDT 125 mL/hr New Bag 01/21/2017 10:08 PM CDT 125 mL/hr New Bag 01/21/2017 12:58 PM CDT 125 mL/hr prochlorperazine (COMPAZINE) injection 5 mg 5 mg, IV, POST-PROCEDURE ONCE, 1 dose, Starting on Fri01/21/17 at 1053, Until Fri01/21/17 at 1102, Routine, PACU Given 01/21/2017 11:02 AM CDT 5 mg rOPINIRole (REQUIP) tablet 2 mg 2 mg, Oral, DAILY AT BEDTIME, First dose on Fri01/21/17 at 2015, Until Discontinued, Routine Given 01/21/2017 8:09 PM CDT 2 mg sodium chloride 0.9 % flush injection 5 mL 5 mL, IV, SEE ADMIN INSTRUCTIONS, Starting on Fri01/21/17 at 1218, Until Fri01/22/17 at 1835, Routine Given 01/21/2017 7:56 PM CDT 5 mL SODIUM CHLORIDE 0.9 % INTRAVENOUS SOLUTION (CABINET OVERRIDE) 1 dose, Starting on Fri01/21/17 at 0718, Until Fri01/21/17 at 0730, Cody MCNALLY: cabinet override Started by Another Clinician 01/21/2017 7:30 AM CDT sodium chloride 0.9% vial - DILUENT 10 mL, See Admin Instructions, SEE ADMIN INSTRUCTIONS, Starting on Fri01/21/17 at 1218, Until Fri01/22/17 at 1835, Routine documented in this encounter Active and Recently Administered Medications Times are shown in CDT. Scheduled Medication Order 01/20/2017 01/21/2017 01/22/2017 cefOXitin (MEFOXIN) infusion 2,000 mg (COMPLETED) 2,000 mg, IV, PRE-PROCEDURE ONCE, 1 dose, Starting on Fri01/21/17 at 0658, Until Fri01/21/17 at 0835, Routine, Pre-op, Antibiotic Indication: Surgical prophylaxis 0805 (New Bag - Provider: Adri Roman RN)0835 (Stopped - Provider: Amairani Tejeda, BENEDICT) enoxaparin (LOVENOX) injection 40 mg 40 mg, subCUT, TWO TIMES DAILY, First dose on Fri01/21/17 at 2200, Until Discontinued, Routine, Post-op - Floor 2208 (Given - Provider: Ghada Baird RN) 0748 (Given - Provider: Breanna Goodwin, BENEDICT)0900 (Canceled Entry - Provider: Breanna Goodwin RN) famotidine PF (PEPCID) 20 mg/2 mL injection 20 mg 20 mg, IV, TWO TIMES DAILY, First dose on Fri01/21/17 at 1215, Until Discontinued, Routine, Post-op - Floor 1258 (Given - Provider: Mansi Vieira RN)1955 (Given - Provider: Ghada Baird, BENEDICT)2100 (Canceled Entry - Provider: Ghada Baird, BENEDICT) 0744 (Given - Provider: Breanna Goodwin, BENEDICT)0900 (Canceled Entry - Provider: Breanna Goodwin RN) heparin injection 5,000 Units (COMPLETED) 5,000 Units, subCUT, INTRA-PROCEDURE ONCE, 1 dose, Starting on Fri01/21/17 at 0703, Until Fri01/21/17 at 0831, Routine, Pre-op 0831 (Given - Provider: Adri Roman, BENEDICT) insulin lispro (HumaLOG) 100 units/mL variable dose injection subCUT, EVERY 6 HOURS, First dose on Fri01/21/17 at 1800, Until Discontinued, Routine 1617 (Given - Provider: Aniya Miguel RN - Comment: bs was 182)1800 (Canceled Entry - Provider: Mansi Vieira, BENEDICT)2344 (Given - Provider: Ghada Baird, BENEDICT) 0600 (Not Given - Provider: Ghada Baird RN - Reason: Patient condition)1144 (Given - Provider: Tonya Hood RN - Comment: BG 153) iohexol (OMNIPAQUE) 350 mg/mL oral solution 50 mL (COMPLETED) 50 mL, Oral, PRE-PROCEDURE ONCE, 1 dose, Starting on Fri01/22/17 at 0844, Until Fri01/22/17 at 0850, Routine 0850 (Given - Provid er: Maile Mittal, RT) Lactated Ringers bolus solution 1,000 mL (COMPLETED) 1,000 mL, IV, ONE TIME ONLY, 1 dose, On Fri01/21/17 at 0715, at 2,000 mL/hr, Administer over 30 Minutes, Routine 0734 (New Bag - Provider: Shanna Ross, BENEDICT)0804 (Stopped - Provider: Mansi Vieira, BENEDICT) meclizine (BONINE) chewable tablet 25 mg (COMPLETED) 25 mg, Oral, PRE-PROCEDURE ONCE, 1 dose, Starting on Fri01/21/17 at 0802, Until Fri01/21/17 at 0806, Routine 0806 (Given - Provider: Shanna Ross, BENEDICT) naloxone (NARCAN) 0.4 mg/mL injection 0.1 mg 0.1 mg, IV, SEE ADMIN INSTRUCTIONS, Starting on Fri01/21/17 at 1209, Until Fri01/22/17 at 1835, Routine, Post-op - Floor prochlorperazine (COMPAZINE) injection 5 mg (COMPLETED) 5 mg, IV, POST-PROCEDURE ONCE, 1 dose, Starting on Fri01/21/17 at 1053, Until Fri01/21/17 at 1102, Routine, PACU 1102 (Given - Provider: Steff Mas RN) rOPINIRole (REQUIP) tablet 2 mg 2 mg, Oral, DAILY AT BEDTIME, First dose on Fri01/21/17 at 2015, Until Discontinued, Routine 2008 (Given - Provider: Ghada Baird RN) sodium chloride 0.9 % flush injection 5 mL 5 mL, IV, SEE ADMIN INSTRUCTIONS, Starting on Fri01/21/17 at 1218, Until Fri01/22/17 at 1835, Routine 195 (Given - Provider: Ghada Baird RN) sodium chloride 0.9% vial - DILUENT 10 mL, See Admin Instructions, SEE ADMIN INSTRUCTIONS, Starting on Fri01/21/17 at 1218, Until Fri01/22/17 at 1835, Routine Continuous Medication Order 01/20/2017 01/21/2017 01/22/2017 lactated Ringers solution (CANCELED) IV, at 125 mL/hr, PRE-PROCEDURE CONTINUOUS, Starting on Fri01/21/17 at 0700, Until Fri01/21/17 at 1159, Routine, Give on liter bolus of LR on arrival to preop, Pre-op 0813 (New Bag - Provider: Melisa Chen CRNA - Comment: LR initiated by ASC)0814 (Fluid Volume - Provider: Melisa Chen CRNA)0924 (Fluid Volume - Provider: Melisa Chen CRNA)0925 (New Bag - Provider: Melisa Chen CRNA)1252 (Stopped - Provider: Mansi Vieira RN) potassium Cl 20 mEq in dextrose 5% - NaCl 0.45% 1000 mL infusion IV, at 125 mL/hr, CONTINUOUS, Starting on Fri01/21/17 at 1215, Until Fri01/22/17 at 1835, Routine, Post-op - Floor 1258 (New Bag - Provider: Mansi Vieira, BENEDICT)2208 (New Bag - Provider: Ghada Baird RN) 0445 (New Bag - Provider: Ghada Baird RN)1405 (Stopped - Provider: Breanna Goodwin RN) PRN Medication Order 01/20/2017 01/21/2017 01/22/2017 bupivacaine-EPINEPHrine (PF) (SENSORCAINE MPF WITH EPI) 0.5 %-1:200,000 injection (CANCELED) INTRA-PROCEDURE PRN, Starting on Fri01/21/17 at 0907, Until Fri01/21/17 at 0936, Routine, Intra-op 0907 (Given - Provider: Elizabeth Hicks MD) diphenhydrAMINE (BENADRYL) 12.5 mg/5 mL elixir 25 mg 25 mg, Oral, EVERY 6 HOURS PRN, Starting on Fri01/21/17 at 1209, Until Fri01/22/17 at 1835, Itching, Routine, Post-op - Floor HYDROcodone-acetaminophen (HYCET) 7.5-325 mg/15 mL oral solution 15 mL 15 mL (7.5 mg), Oral, EVERY 4 HOURS PRN, Starting on Fri01/21/17 at 1209, Until Fri01/22/17 at 1835, Pain (See admin instructions), Routine, Post-op - Floor 1148 (Given - Provid er: Tonya Hood RN) HYDROcodone-acetaminophen (HYCET) 7.5-325 mg/15 mL oral solution 15 mL 15 mL (7.5 mg), Oral, EVERY 4 HOURS PRN, Starting on Fri01/21/17 at 1209, Until Fri01/22/17 at 1835, Pain (See admin instructions), Routine, Post-op - Floor HYDROmorphone (DILAUDID) 1 mg/mL injection 0.3 mg (CANCELED) 0.3 mg, IV, POST-PROCEDURE Q 5 MINUTES PRN, Starting on Fri01/21/17 at 0855, Until Fri01/21/17 at 1159, Pain, Mild, For pain scale 1-3, Routine, PACU 1020 (Given - Provider: Steff Mas RN)1031 (Given - Provider: Steff Mas RN)1041 (Given - Provider: Steff Mas RN) HYDROmorphone (DILAUDID) 1 mg/mL injection 0.3 mg 0.3 mg, IV, EVERY 4 HOURS PRN, Starting on Fri01/21/17 at 1209, Until Fri01/22/17 at 1835, Pain (See admin instructions), Routine, Post-op - Floor 1637 (Given - Provider: Mansi Vieira, BENEDICT) HYDROmorphone (DILAUDID) 1 mg/mL injection 0.3 mg 0.3 mg, IV, EVERY 4 HOURS PRN, Starting on Fri01/21/17 at 1209, Until Fri01/22/17 at 1835, Pain (See admin instructions), Routine, Post-op - Floor HYDROmorphone (DILAUDID) 1 mg/mL injection 0.6 mg 0.6 mg, IV, EVERY 30 MINUTES PRN, Starting on Fri01/21/17 at 1209, Until Fri01/22/17 at 1835, Pain (See admin instructions), Routine, Post-op - Floor lidocaine PF 1 % (XYLOCAINE MPF) injection 0.1 mL (COMPLETED) 0.1 mL, Infiltration, PRE-PROCEDURE ONCE PRN, 1 dose, Starting on Fri01/21/17 at 0658, Until Fri01/21/17 at 0734, Other (See Comment), with IV start, Routine, Pre-op 0734 (Given - Provider: Shanna Ross RN) metoclopramide HCl (REGLAN) oral solution 10 mg 10 mg, Oral, EVERY 6 HOURS PRN, Starting on Fri01/21/17 at 1219, Until Fri01/22/17 at 1835, Nausea/Emesis, Routine 2009 (Given - Provider: Ghada Baird, BENEDICT) ondansetron (ZOFRAN ODT) tablet 4 mg 4 mg, Oral, EVERY 6 HOURS PRN, Starting on Fri01/21/17 at 1209, Until Fri01/22/17 at 1835, Nausea/Emesis, Routine, Post-op - Floor ondansetron (ZOFRAN) 4 mg/2 mL injection 4 mg (COMPLETED) 4 mg, IV, POST-PROCEDURE ONCE PRN, 1 dose, Starting on Fri01/21/17 at 0855, Until Fri01/21/17 at 1019, Nausea/Emesis, Routine, PACU 1019 (Given - Provider: Steff Mas, BENEDICT) ondansetron (ZOFRAN) 4 mg/2 mL injection 4 mg 4 mg, IV, EVERY 6 HOURS PRN, Starting on Fri01/21/17 at 1209, Until Fri01/22/17 at 1835, Nausea/Emesis, Routine, Post-op - Floor 1636 (Given - Provider: Mansi Vieira, BNEEDICT)2212 (Given - Provider: Ghada Baird, BENEDICT) 0300 (Given - Provider: Ghada Baird RN)0900 (Given - Provider: Breanna Goodwin RN) sodium chloride 0.9 % irrigation solution (CANCELED) INTRA-PROCEDURE PRN, Starting on Fri01/21/17 at 0907, Until Fri01/21/17 at 0936, Routine, Intra-op 0907 (Given - Provider: Elizabeth Hicks MD - Comment: avail for irrigation) No Frequency Medication Order 01/20/2017 01/21/2017 01/22/2017 SODIUM CHLORIDE 0.9 % INTRAVENOUS SOLUTION (CABINET OVERRIDE) (COMPLETED) 1 dose, Starting on Fri01/21/17 at 0718, Until Fri01/21/17 at 0730, Cody BLACKICELL: cabinet override 0730 (Started by Another Clinician - Provider: Mansi Vieira RN) documented in this encounter Care Teams Scanner Operator Relationship Specialty Start Date End Date Eldon Koehler MD PCP - General 10/06/07 documented as of this encounter
--- OUTSIDE RECORDS SUMMARY | 2024-05-22 17:01 | XMS_ITS | Encounter Summary ---
Author Organization [facility] Address [address] [place] [address] Care Team Providers Care Welding Equipment Sales Representative Name Role Phone Eldon Koehler MD Primary Care Provider [phone] Encounter Details Date Type Department Care Team (Late st Contact Info) Description 12/23/2016 Chart Note [facility] - [address] [address] Eveline Orellana, RN Social History Tobacco Use Types Packs/Day Years Used Date Smoking Tobacco: Never Smokeless Tobacco: Never Alcohol Use Standard Drinks/Week Comments Yes 0 (1 standard drink = 0.6 oz pur e alcohol) rare Sex and Gender Information Value Date Recorded Sex Assigned at Not on file Gender Identity Not on file Sexual Orientation Not on file documented as of this encounter Progress Notes * Eveline Rebollar RN - 12/23/2016 7:21 AM CDT [facility] Winifred Piper is a 66 y.o. female who is coming in for pre op visit for bariatric surgery and has completed program requirements. Initial consultation visit weight: Vitals Weight Height BMI 09/02/2016 300 lbs 13 oz 66 in 49.28 Last documented weight: Vitals Weight Height BMI 11/28/2016 286 lbs 65 in 47.59 Surgery: Laparoscopic Vertical Sleeve Gastrectomy (CPT 07172), EGD (CPT 74074) Insurance: Medicare A&B/AARP Approved: N/A Requirements Completed: Psych Consult/Cleared Yes-09/25/16 Dr. Adam Dietary Consult Yes-09/26/16 Iliana Melo Physical Therapy Consult Yes-09/20/16 Freda Wolfe 2nd Dietary Visit Yes-11/28/16 Iliana Melo Referral Yes-Dr. Koehler PCP Clearance Yes-11/26/16 Dr. Koehler-Pt seen recently she is medically stable for bariatric surgery Labs Results for WINIFRED PIPER ( ) as of 12/23/2016 07:26 Ref. Range 11/05/2016 03:05 WBC Latest Ref [...] Ref Range: 1.0 - 2.5 (calc) 1.5 Results for WINIFRED PIPER ( ) as of 12/23/2016 07:26 Ref. Range 05/23/2015 12:01 VITAMIN B12 Latest [...] PIPER ( ) as of 12/23/2016 07:26 Ref. Range 11/05/2016 03:05 TSH Latest Ref Range: 0.40 - 4.50 mIU/L 0.74 Results for WINIFRED PIPER ( ) as of 12/23/2016 07:26 Ref. Range 12/09/2016 09:29 IRON Latest Ref Range: 45 - 160 mcg/dL 63 FOLATE, SERUM Latest Units: ng/mL 18.5 VITAMIN B1 Latest Ref Range: 8 - 30 nmol/L 23 A1C Lab Results Component Value Date/Time HGBA1C 5.9 (H) 11/05/2016 03:05 AM EKG Results for orders placed or performed in visit on 11/28/16 EKG 12-LEAD Narrative Rupert Nguyen MD 11/28/2016 3:47 PM NSR LAD Possible LAE Sleep Study 2009 CPAP/Settings 12 Cardiac Clearance Yes-11/28/16 Dr. Rupert Nguyen- 1. Preop cardiovascular exam Z01.810 V72.81 EKG 12-LEAD There is no evidence of significant cardiac disease that would preclude this operation or put her in high cardiac risk category. May proceed with surgery if so desired. Echo 08/16/2015-SUMMARY: ?? - Left ventricle: The cavity size was normal. Wall thickness was increased in a pattern of mild LVH. Global systolic function was normal. Diastolic function assessment consistent with abnormal left ventricular relaxation (grade 1 diastolic dysfunction). Ejection fraction: 60% (MOD, 2-plane). - Left atrium: The atrium was normal in size. - Right ventricle: The cavity size was normal. Systolic function was normal. Other Clearance Yes-Leilani Shaniqua WRAPPER SORTER, scanned Consents Sent to Patient Spouse Consent: Need Pre Op labs Need ODILIA Procedure Education Done Other Required testing Comments documented in this encounter Plan of Treatment Upcoming Encounters Date Type Department Care Team (Late st Contact Info) Description 07/27/2024 9:40 AM CDT Office Visit [facility] [address] [place] [address] Eldon Koehler MD [address] [place] [address] [address] [place] [phone] documented as of this encounter Visit Diagnoses Not on filedocumented in this encounter Care Teams Welding Equipment Sales Representative Relationship Specialty Start Date End Date Eldon Koehler MD PCP - General 10/06/07 documented as of this encounter
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
--- OUTSIDE RECORDS SUMMARY | 2024-05-22 17:01 | XMS_ITS | Encounter Summary ---
Author Organization [facility] Address [address] [place] [address] Care Team Providers Care Ecmo Specialist Name Role Phone Eldon Koehler MD Primary Care Provider Encounter Details Date Type Department Care Team (Late st Contact Info) Description 11/15/[address] [facility] Internal Medicine [address] [address] Eldon Koehler MD [address] [place] [address] [address] [place] [address] Social History Tobacco Use Types [...] Progress Notes * Eldon Koehler MD - 11/15/2016 4:46 PM CDT Spoke with pt Wait on shingles vaccine until baby 3 yr documented in this encounter Plan of Treatment Upcoming Encounters Date Type Department Care Team (Late st Contact Info) Description 07/27/2024 9:40 AM CDT Office Visit [facility] Primary [address] [place] [address] Eldon Koehler MD [address] [place] [address] [address] [place] [id number] documented as of this encounter Visit Diagnoses Not on filedocumented in this encounter Care Teams Ecmo Specialist Relationship Specialty Start Date End Date Eldon Koehler MD PCP - General 10/06/07 documented as of this encounter
--- OUTSIDE RECORDS SUMMARY | 2024-05-22 17:01 | XMS_ITS | Encounter Summary ---
Author Organization [facility] Address [address] [place] [address] Care Team Providers Care Hr Leader Name Role Phone Eldon Koehler MD Primary Care Provider [phone] Reason for Visit * Reason Comments [place] [facility] Sore Throat not feeling well x4d ays, coughing a little bit of phlegm Encounter Details Date Type Department Care Team (Latest Contact Info) Description 11/20/2017 3:00 PM CDT Office Visit [facility] ([facility]) Internal Medicine [address] [phone] Lacy Vasquez, ANP [address] [place] [id number] Acute bacterial conjunctivitis of left eye (Primary Dx); Upper respiratory tract infection, unspecified type; Sensation of swollen throat Social History Tobacco Use Types Packs/Day Years [...] Sign Reading Time Taken Comments Blood Pressure 124/80 11/20/2017 3:05 PM CDT Pulse 92 11/20/2017 3:05 PM CDT Temperature 37 ??C (98.6 ??F) 11/20/2017 3:05 PM CDT Respiratory Rate - - Oxygen Saturation - - Inhaled Oxygen Concentration - - Weight 99.8 kg (220 lb) 11/20/2017 3:05 PM CDT Height 166.4 cm (5' 5.5 ) 11/20/2017 3:05 PM CDT Body Mass Index 36.05 11/20/2017 3:05 PM CDT documented in this encounter Progress Notes * Lacy Vasquez, ANP - 11/20/2017 4:49 PM CDT HISTORY OF PRESENT ILLNESS Winifred Rordiguez, a 67 y.o. female presents with a Chief Complaint of [place] [facility] and Sore Throat (notfeeling well x4days, coughing a little bit of phlegm) Subjective HPI Chief Complaint Patient presents with ??? [place] [facility] ??? Sore Throat not feeling well x4days, coughing a little bit of phlegm symptoms x 4-5 days [place] left eye- watery discharge Cough, severe sore throat and feels like she cannot swallow at times No fever/chills No sick contacts Ears feel full Her most recent labs were reviewed. Diet [...] ??? Hyperlipemia 06/07/2003 Family History Problem Relation Age of Onset ??? Colon Cancer Mother ??? Stroke Father ??? Stroke Maternal Grandfather ??? Stroke Paternal Grandfather ??? Kidney Disease Brother ??? Healthy Brother ??? Healthy Brother Social History Other Topics Concern ??? Not on file History Alcohol Use ??? Yes Comment: rare History Smoking Status ??? Never Smoker Smokeless Tobacco ??? Never Used Social History Narrative None on file REVIEW OF SYSTEMS Review of Systems Constitutional: Positive for fatigue. Negative for fever. HENT: Positive for congestion, ear pain, sore throat and trouble swallowing. Eyes: Positive for discharge, redness and itching. Negative for pain and visual disturbance. Respiratory: Positive for cough. Negative for shortness of breath and wheezing. Cardiovascular: Negative. Negative for chest pain, palpitations and leg swelling. Gastrointestinal: Negative. Endocrine: Negative. Musculoskeletal: Negative. Negative for back pain and myalgias. Skin: Negative. Allergic/Immunologic: Negative. Neurological: Negative. Negative for dizziness and headaches. Hematological: Negative. Psychiatric/Behavioral: Negative. Objective PHYSICAL EXAM BP 124/80 Pulse 92 Temp 98.6 ??F (37 ??C) Ht 5' 5.5 (1.664 m) Wt 99.8 kg (220 lb) BMI 36.05 kg/m?? Physical Exam Constitutional: She is oriented to person, place, and time. She appears well- developed and well-nourished. No distress. HENT: Head: Normocephalic and atraumatic. Right Ear: Tympanic membrane is erythematous and retracted. Left Ear: Tympanic membrane is bulging. Nose: Right sinus exhibits maxillary sinus tenderness. Left sinus exhibits maxillary sinus tenderness. Mouth/Throat: Uvula is midline. Mucous membranes are dry. No uvula swelling. Posterior oropharyngeal edema and posterior oropharyngeal erythema present. Tonsils are 2+ on the right. Tonsils are 3+ onthe left. No tonsillar exudate. Eyes: Right eye exhibits no discharge. Left eye exhibits no discharge. Left conjunctiva is injected. Left conjunctiva has no hemorrhage. Neck: Normal range of motion. Neck supple. Cardiovascular: Normal rate, regular rhythm and normal heart sounds. Pulmonary/Chest: Effort normal and breath sounds normal. Neurological: She is alert and oriented to person, place, and time. Skin: Skin is warm and dry. Capillary refill takes less than 2 seconds. She is not diaphoretic. Psychiatric: She has a normal mood and affect. Vitals reviewed. Procedures Assessment ASSESSMENT and PLAN: ASSESSMENT: Encounter Diagnoses Name Primary? Acute bacterial conjunctivitis of left eye Yes ??? Upper respiratory tract infection, unspecified type ??? Sensation of swollen throat PLAN: omnicef x 10days ( pt prefers liquid) Medrol dose pack for cough/swelling- take w/food, hold celebrex Gentamicin gtts, warm compresses tid Rest/fluids Pt given information on new medications including side effects and proper administration. Verbalized understanding. Informed to call with any concerns. Pt instructed to follow-up as needed and/or if symptoms fail to improve or worsen. The patient indicates understanding of these issues and agrees with the plan. Future Appointments Date Time Provider Department Center 11/28/2017 7:45 AM Elizabeth Mcbride MD [facility] MOB Orders Placed This Encounter ??? cefdinir (OMNICEF) 250 mg/5 mL suspension ??? methylPREDNISolone (MEDROL DOSPACK) 4 mg Tablets, Dose Pack ??? gentamicin (GARAMYCIN) 0.3 % solution documented in this encounter Plan of Treatment Upcoming Encounters Date Type Department Care Team (Late st Contact Info) Description 07/27/2024 9:40 AM CDT Office Visit [facility] ([facility] Primary Care [id number] [place] [address] Eldon Koehler MD [address] [place] [phone] documented as of this encounter Visit Diagnoses Diagnosis Acute bacterial conjunctivitis of left eye- Primary Upper respiratory tract infection, unspecified type Sensation of swollen throat Other symptoms involving head and neck documented in this encounter Care Teams Hr Leader Relationship Specialty Start Date End Date Eldon Koehler MD PCP - General 10/06/07 documented as of this encounter
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
--- OUTSIDE RECORDS SUMMARY | 2024-05-22 17:01 | XMS_ITS | Encounter Summary ---
Author Organization [facility] Address [address] [place] [address] Care Team Providers Care Production Control Specialist Name Role Phone Eldon Koehler MD Primary Care Provider [phone] Reason for Visit * Reason Comments Follow Up Patient s/p laparosc opic sleeve gastrectomy 01/21/2017. Encounter Details Date Type Department Care Team (Late st Contact Info) Description 03/13/2017 9:45 AM CDT Office Visit [facility] [address] [place] [address] Elizabeth Mcbride MD [address] [place] [address] Surgery follow-up (Primary Dx) Social History Tobacco Use Types [...] Reading Time Taken Comments Blood Pressure 130/80 03/13/2017 9:41 AM CDT Pulse 87 03/13/2017 9:41 AM CDT Temperature - - Respiratory Rate - - Oxygen Saturation 97% 03/13/2017 9:41 AM CDT Inhaled Oxygen Concentration - - Weight 110.3 kg (243 lb 3.2 oz) 03/13/2017 9:41 AM CDT Height 166.4 cm (5' 5.5 ) 03/13/2017 9:41 AM CDT Body Mass Index 39.86 03/13/2017 9:41 AM CDT documented in this encounter Progress Notes * Elizabeth Mcbride MD - 03/13/2017 10:23 AM CDT Images from the original note were not included. Chief Complaint Patient presents with ??? Follow Up Patient s/p laparoscopic sleeve gastrectomy 01/21/2017. Winifred Rodriguez is a 66 y.o. female s/p laparoscopic sleeve gastrectomy 01/21/2017. ?? Patient has had mild nausea, no vomiting. Denies GERD. Denies any difficulty swallowing. Bowel movements every 3 days-hard stools at times. Patient drinking at least 32 oz of fluid daily. Patient trying to increase fluids. Originally had an intolerance to plain water . Denies dizziness or lightheadedness. Denies dry mouth. Signs and symptoms of dehydration reviewed with patient. Patient to call office with any symptoms of dizziness, lightheadedness, dry mouth, fatigue, or concentrated urine. Daily caloric intake is about 600 calories. Patient is not drinking protein shakes daily. Patient states she is getting about 60 grams of protein daily. Patients activity regimen is walking, but has had increased back pain. she only took zofran 2x She did have an episode where she did not want even water but this has resolved. She forgets to eat and drink . She has been having some constipation ?? Patient has recently finished medication for respiratory infection and pink eye. ?? Patient had lab work completed yesterday by PCP. Patient stopped Vitamin D and Vitamin B12 about 1 month ago. Sp bariatric surgery [place] body weight (IBW) 130 Excess Body Weight (EBW) 170 Reasonable post op weight goal -85= 215 date Weight weight lost % EBW Highest preop weight 300 preop visit 287 Date of Surgery 01.21.2017 laparoscopic sleeve gastrectomy 02/05/2017 First post op visit 116.9 kg (257 lb 12.8 oz) (02/05/17 0841) 03/13/2017 243 57 ?? Intestinal malabsorption following sleeve gastrectomy She is taking vitamins MVI, chewable. Not Calcium - she bout it yesterday ?? MURIEL still using cpap ?? GERD-no sx ?? Hyperlipidemia- on lipitor ?? HTN- no meds ?? DM- denies But her a1c is below 5.4 ?? b12 def- takes replacement Lab yesterday improved ?? Vit d def - take replacement Lab yesterday improved Review of Systems Constitutional: Positive for weight loss. Negative for fever. Cardiovascular: Negative for leg swelling. Gastrointestinal: Negative for abdominal pain, constipation, diarrhea, heartburn, nausea and vomiting. BP 130/80 Pulse 87 Ht 5' 5.5 (1.664 m) Wt 110.3 kg (243 lb 3.2 oz) SpO2 97% BMI 39.86 kg/m?? Physical Exam Constitutional: No distress. Pulmonary/Chest: No respiratory distress. Abdominal: She exhibits no distension. There is no tenderness. Incisions closed. No errythema Skin: She is not diaphoretic. Psychiatric: She has a normal mood and affect. Her behavior is normal. ASSESSMENT: Encounter Diagnosis Name Primary? Surgery follow-up Yes PLAN: No orders of the defined types were placed in this encounter. Patient counseled on behaviors necessary for weight [...] stage 4., Discussed exercise and activity expectations, 63917 steps a day, exercise after 6 weeks post op is unrestricted, Goal is 150 minutes a week., Patient reminded that surgery is not a magic fix for weight loss, Patient should see the dietitian at about 6 weeks post op, Encouraged to attend support groups., See a counselor and dw PCP if mental health issues arise., take 1500 calcium citrate a day., Take MVI daily., take crushed pills or liquid medicatio ns until one month post op. After may resume regular formulations, Patient advised to see PCP aboutmedication changes., First 9 months after surgery is the best time to make headway on weight loss. and fup in 8 weeks. Patient to call with question or problems (including abdominal or back pain, nausea or vomiting, fever or chills during the post operative period, unexpected heartburn or regurgitation, inability to tolerate solid protein foods after fully advancing diet, or having food stuck or spitting up more than once a week. * Anabella Solorzano - 03/13/2017 9:41 AM CDT Patient s/p laparoscopic sleeve gastrectomy 01/21/2017. Patient has had mild nausea, no vomiting. Denies GERD. Denies any difficulty swallowing. Bowel movements every 3 days-hard stools at times. Patient drinking at least 32 oz of fluid daily. Patient trying to increase fluids. Originally had an intolerance to plain water . Denies dizziness or lightheadedness. Denies dry mouth. Signs and symptoms of dehydration reviewed with patient. Patient to call office with any symptoms of dizziness, lightheadedness, dry mouth, fatigue, or concentrated urine. Daily caloric intake is about 600 calories. Patient is not drinking protein shakes daily. Patient states she is getting about 60 grams of protein daily. Patients activity regimen is walking, but has had increased back pain. Patient has recently finished medication for respiratory infection and pink eye. Patient had lab work completed yesterday by PCP. Patient stopped Vitamin D and Vitamin B12 about 1 month ago. documented in this encounter Plan of Treatment Upcoming Encounters Date Type Department Care Team (Late st Contact Info) Description 07/27/2024 9:40 AM CDT Office Visit [facility] [id number] [place] [address] Eldon Koehler MD [address] [place] [address] [place] [id number] documented as of this encounter Visit Diagnoses Diagnosis Surgery follow-up- Primary Follow-up examination, following unspecified surgery documented in this encounter Care Teams Production Control Specialist Relationship Specialty Start Date End Date Eldon Koehler MD PCP - General 10/06/07 documented as of this encounter
--- OUTSIDE RECORDS SUMMARY | 2024-05-22 17:01 | XMS_ITS | Encounter Summary ---
Author Organization [facility] Address [address] [place] [address] Care Team Providers Care Contract Officer Name Role Phone Eldon Koehler MD Primary Care Provider [phone] Reason for Visit * Reason Comments [facility] eye Encounter Details Date Type Department Care Team (Latest Contact Info) Description 01/13/2018 11:15 AM CDT Office Visit [facility] Internal Medicine [address] [address] Eldon Koehler MD [address] [place] [phone] Other specified hypothyroidism (Primary Dx); Osteoarthritis of multiple joints, unspecified osteoarthritis type; Impaired fasting glucose; Fibromyalgia; Recurrent major depressive disorder, in partial remission; S/P bariatric surgery; Other hyperlipidemia; Acute bacterial conjunctivitis of left eye; Restless leg syndrome Social History Tobacco Use [...] Reading Time Taken Comments Blood Pressure 120/80 01/13/2018 11:24 AM CDT Pulse - - Temperature 36.7 ??C (98.1 ??F) 01/13/2018 11:24 AM C DT Respiratory Rate - - Oxygen Saturation - - Inhaled Oxygen Concentration - - Weight 98 kg (216 lb) 01/13/2018 11:24 AM CDT Height 166.4 cm (5' 5.5 ) 01/13/2018 11:24 AM CD T Body Mass Index 35.4 01/13/2018 11:24 AM CDT documented in this encounter Progress Notes * Eldon Koehler MD - 01/13/2018 11:40 AM CDT Subjective: Winifred Rodriguez is a 67 y.o. female. Daughter with pink eye Now she has itching red left eye With some crusting am Lost 90 lb Still has sleep apnea--seeing sleep dr lft lab pend Fibromyalgia tolerable djd reviewed, better with wt loss Med reviewed High stress home life reviewed Patient Active Problem List Diagnosis Date [...] Medication Sig Dispense Refill ??? rOPINIRole (REQUIP) 2 mg Tablet TAKE [...] mouth 2 times daily. 180 Capsule3 ??? omeprazole (PriLOSEC) 20 mg Capsule, Delayed Release(E.C.) Take 20 mg by mouth daily . ??? atorvastatin (LIPITOR) 20 mg tablet Take 1 tablet by mouth daily late in the day. 90 Tablet 3 ??? HYDROcodone-acetaminophen (NORCO) 5-325 mg tablet Take 1 Tablet by mouth every 4 hours as needed for Pain, Moderate. 90 Tablet 0 ??? albuterol HFA 90 mcg [...] Right 06/12/2016 ??? HX SKIN BIOPSY ??? IA COLONOSCOPY FLX DX W/COLLJ SPEC WHEN PFRMD N/A 03/15/2015 COLONOSCOPY performed by Osei Sutton MD at [facility] GI LAB ??? IA ESOPHAGOGASTRODUODENOSCOPY TRANSORAL DIAGNOSTIC N/A 01/21/2017 ESOPHAGOGASTRODUODENOSCOPY performed by Elizabeth Mcbride MD at [facility] OR ??? IA LAP, ORLY RESTRICT PROC, LONGITUDINAL GASTRECTOMY N/A 01/21/2017 GASTRECTOMY LONGITUDINAL LAPAROSCOPIC performed by Elizabeth Mcbride MD at [facility] OR Family History Problem Relation Age of [...] Psychological ROS: positive for - anxiety--family stress Endocrine ROS: negative for polyuria/polydipsia Respiratory ROS: [...] negative for skin rashes or unusual skin lesions--with hair loss Exam/Objective: BP 120/80 Temp 98.1 ??F (36.7 ??C) (Oral) Ht 5' 5.5 (1.664 m) Wt 98 kg (216 lb) BMI 35.40 kg/m?? General appearance: over wt nad Head: Normocephalic, without obvious abnormality, atraumatic Eyes: left conj redness present, swab for cx taken. Lid ok Ears: normal TM's (shiny without retraction) and external ear canals AU. No apparent lesions or masses. Hearing grossly normal. Nose: Nares normal. Septum midline. Mucosa normal. Throat: Lips, mucosa, palate, oropharynx, and tongue [...] and Plan: ASSESSMENT: ICD-10-CM ICD-9-CM 1. Other specified hypothyroidism E03.8 244.8 2. Osteoarthritis of multiple joints, unspecified osteoarthritis type M15.9 715.89 3. Impaired fasting glucose R73.01 790.21 HEMOGLOBIN A1C HEMOGLOBIN A1C 4. Fibromyalgia M79.7 729.1 CBC WITH DIFFERENTIAL CBC WITH DIFFERENTIAL 5. Recurrent major depressive disorder, in partial remission F33.41 296.35 6. S/P bariatric surgery Z98.84 V45.86 VITAMIN B1 LEVEL VITAMIN B12 LEVEL VITAMIN D 25 HYDROXY VITAMIN B12 LEVEL VITAMIN D 25 HYDROXY 7. Other hyperlipidemia E78.4 272.4 COMPREHENSIVE METABOLIC PANEL LIPID PANEL TSH COMPREHENSIVE METABOLIC PANEL LIPID PANEL TSH 8. Acute bacterial conjunctivitis of left eye H10.32 372.03 EYE CULTURE WITH GRAM STAIN 9. Restless leg syndrome G25.81 333.94 Check lab rx eye await cx Thyroid check lab Chol cont med check lab Vitamin def ccheck lab Sleep apnea reviewed, being fitted for new Cpap beneftis from use depn cont med, inc stress reviewed rls cont med shingrix second immun pend Health Maintenance Topic Date Due ??? OSTEOPOROSIS SCREENING 2017 ??? BREAST CANCER SCREENING 11/15/2017 ??? INFLUENZA VACCINE 01/10/2018 ??? PNEUMOCOCCAL VACCINE 65+ LOW/MEDIUM RISK (2 of 2 - PPSV23) 03/19/2018 ??? COLORECTAL SCREENING 03/15/2025 Due mammo PLAN: Orders Placed This Encounter ??? EYE CULTURE WITH GRAM STAIN ??? VITAMIN B1 LEVEL ??? CBC WITH DIFFERENTIAL (Favorites) ??? COMPREHENSIVE METABOLIC PANEL (Favorites) ??? HEMOGLOBIN A1C (Favorites) ??? LIPID PANEL (Favorites) ??? TSH (Favorites) ??? VITAMIN B12 LEVEL (Chemistry) ??? VITAMIN D 25 HYDROXY (Chemistry) ??? tobramycin (TOBREX) 0.3 % solution Appropriate medications prescribed Appropriate patient instructions provided Follow-up as I have indicated. Medications and options explained to include common side effects. Understanding of medications, course, diagnosis, and expectations were expressed by patient/guardian. documented in this encounter Plan of Treatment Upcoming Encounters Date Type Department Care Team (Late st Contact Info) Description 07/27/2024 9:40 AM CDT Office Visit [facility] Primary Care [address] [place] [address] Eldon Koehler MD [address] [place] [address] [address] [place] [address] documented as of this encounter Procedures Procedure Name Priority Date/Time Associated Diagnosis Comments CBC WITH DIFFERENTIAL Routine 05/13/2018 3:10 AM DIRECTOR OF RESEARCH Fibromyalgia VITAMIN D 25 HYDROXY Routine 05/13/2018 3:10 AM DIRECTOR OF RESEARCH S/P bariatric surgery TSH Routine 05/13/2018 3:10 AM DIRECTOR OF RESEARCH Other hyperlipidemia VITAMIN B1 LEVEL Routine 05/13/2018 3:10 AM DIRECTOR OF RESEARCH S/P bariatric surgery HEMOGLOBIN A1C Routine 05/13/2018 3:10 AM DIRECTOR OF RESEARCH Impaired fasting glucose VITAMIN B12 LEVEL Routine 05/13/2018 3:1 0 AM DIRECTOR OF RESEARCH S/P bariatric surgery LIPID PANEL Routine 05/13/2018 3:10 AM DIRECTOR OF RESEARCH Other hyperlipidemia COMPREHENSIVE METABOLIC PANEL Routine 05/13/2018 3:10 AM DIRECTOR OF RESEARCH Other hyperlipidemia documented in this encounter Results * VITAMIN D 25 HYDROXY (05/13/2018 3:10 AM DIRECTOR OF RESEARCH) VITAMIN D, 25 OH, TOTAL 41 30 - 100 ng/mL [facility] [employer] [employer] [facility] Comment: Vitamin D Status ? 25-OH Vitamin D: Deficiency: ?<20 ng/mL Insufficiency: ? 20 - 29 ng/mL Optimal: ? > or = 30 ng/mL For 25-OH Vitamin D testing on patients on D2-supplementation and patients for whom quantitation of D2 and D3 fractions is required, the QuestAssureD(TM) 25-OH VIT D, (D2,D3), LC/MS/MS is recommended: order code 50401 (patients >2yrs). For more information on this test, go to: http://education.riskmethods/faq/SIB621 (This link is being provided for informational/educational purposes only.) Test Performed at: [facility] [address] [place], [place] ??[address] Brent Lieberman D.O., MPH Blood 05/13/2018 3:10 AM DIRECTOR OF RESEARCH Eldon Koehler MD CHEMISTRY ORDERABLES Performing Organization Address [facility] Co de Phone Number [facility] [address] [place] [address] * VITAMIN B12 LEVEL (05/13/2018 3:10 AM DIRECTOR OF RESEARCH) VITAMIN B12 615 200 - 1100 pg/mL [facility] Comment: Test Performed at: [facility] [address] [place], [place] ??[phone] Brent Lieberman D.O., MPH Blood 05/13/2018 3:10 AM DIRECTOR OF RESEARCH Eldon Koehler MD CHEMISTRY ORDERABLES Performing Organization Address [facility] Co de Phone Number [facility] [address] [place] [address] * TSH (05/13/2018 3:10 AM DIRECTOR OF RESEARCH) Pathologist [facility] TSH 0.60 0.40 - 4.50 mIU/L [facility] Comment: Test Performed at: [address] ??[phone] Brent Lieberman D.O., MPH Blood 05/13/2018 3:10 AM DIRECTOR OF RESEARCH Eldon Koehler MD CHEMISTRY ORDERABLES [facility] [address] [place] [address] * LIPID PANEL (05/13/2018 3:10 AM DIRECTOR OF RESEARCH) [facility] CHOLESTEROL 164 <200 mg/dL [facility] HDL 53 >50 mg/dL [facility] TRIGLYCERIDE 77 <150 mg/dL [facility] LDL CALCULATED 94 mg/dL (calc) [facility] Comment: Reference range: <100 Desirable range <100 mg/dL for primary prevention; ?? <70 mg/dL for patients with CHD or diabetic patients with > or = 2 CHD risk factors. LDL-C is now calculated using the Christopher-Parish calculation, which is a validated novel method providing better accuracy than the Friedewald equation in the estimation of LDL-C. Christopher SS et al. ERLIN. 2013;310(19): 1124-0702 (http://education.WiFast.Nativeflow/faq/OUD850) CHOL/HDL RATIO 3.1 <5.0 (calc) [facility] TOTAL NON-HDL CHOL(LDL+VLDL) 111 <130 mg/dL (calc) [facility] Comment: For patients with diabetes plus 1 major ASCVD risk factor, treating to a non-HDL-C goal of <100 mg/dL (LDL-C of <70 mg/dL) is considered a therapeutic option. Test Performed at: [facility] ??[phone] Brent Lieberman D.O., MPH Blood 05/13/2018 3:10 AM DIRECTOR OF RESEARCH Eldon Koehler MD CHEMISTRY ORDERABLES Performing Organization Address [facility] de Phone Number [facility] [address] [place] [address] * HEMOGLOBIN A1C (05/13/2018 3:10 AM DIRECTOR OF RESEARCH) Pathologist [facility] HEMOGLOBIN A1C 5.6 <5.7 % of total Hgb [facility] Comment: For the purpose of screening for the presence of diabetes: <5.7% ? Consistent with the absence of diabetes 5.7-6.4% ?Consistent with increased risk for diabetes ?(prediabetes) > or =6.5% ??Consistent with diabetes This assay result is consistent with a decreased risk of diabetes. Currently, no consensus exists regarding use of hemoglobin A1c for diagnosis of diabetes in children. According to [place] Diabetes Association (ADA) guidelines, hemoglobin A1c <7.0% represents optimal control in non- diabetic patients. Different metrics may apply to specific patient populations. Standards of Medical Care in Diabetes(ADA). Test Performed at: [facility] [address] [place] ??[phone] Brent Lieberman D.O., MPH Blood 05/13/2018 3:10 AM DIRECTOR OF RESEARCH Eldon Koehler MD CHEMISTRY ORDERABLES Performing Organization Address [facility] de Phone Number [facility] [address] [place] [address] * COMPREHENSIVE METABOLIC PANEL (05/13/2018 3:10 AM DIRECTOR OF RESEARCH) Pathologist [facility] GLUCOSE 86 65 - 99 mg/dL [facility] Comment:Fasting reference in terval BUN 13 7 - 25 mg/dL [facility] CREATININE 0.74 0.50 - 0.99 mg/dL [facility] Comment: For patients >49 years of age, the reference limit for Creatinine is approximately 13% higher for people identified as -[place]. GFR 85 > OR = 60 mL/min/1 .73m2 [facility] GFR, 99 > OR = 60 mL/min/1 .73m2 [facility] BUN/CREAT RATIO NOT APPLICABLE 6 - 22 (calc) [facility] . [facility] SODIUM 142 135 - 146 mmol/L [facility] . [facility] POTASSIUM 4.3 3.5 - 5.3 mmol/L [facility] . [facility] CHLORIDE 104 98 - 110 mmol/L [facility] . [facility] CO2 31 20 - 32 mmol/L [facility] . [facility] CALCIUM 8.9 8.6 - 10.4 mg/dL [facility] . [facility] TOTAL PROTEIN 6.3 6.1 - 8.1 g/dL [facility] . [facility] ALBUMIN 3.7 3.6 - 5.1 g/dL [facility] . [facility] GLOBULIN 2.6 1.9 - 3.7 g/dL (calc) [facility] . [facility] ALBUMIN/GLOBULIN RATIO 1.4 1.0 - 2.5 (calc) [facility] BILIRUBIN TOTAL 0.5 0.2 - 1.2 mg/dL [facility] ALKALINE PHOSPHATASE 126 33 - 130 U/L [facility] AST 21 10 - 35 U/L [facility] . [facility] ALT 15 6 - 29 U/L [facility] Comment: Test Performed at: [facility] [address] [place] [address] ??[phone] Brent Lieberman D.O., MPH Blood 05/13/2018 3:10 AM DIRECTOR OF RESEARCH Eldon Koehler MD CHEMISTRY ORDERABLES [facility] [address] [place] [address] * CBC WITH DIFFERENTIAL (05/13/2018 3:10 AM DIRECTOR OF RESEARCH) WBC 6.1 3.8 - 10.8 Thousand/u L [facility] RBC 4.43 3.80 - 5.10 Million/uL [facility] . [facility] HEMOGLOBIN 12.6 11.7 - 15.5 g/dL [facility] . [facility] HEMATOCRIT 38.9 35.0 - 45.0 % [facility] . [facility] MCV 87.8 80.0 - 100.0 fL [facility] . [facility] MCH 28.4 27.0 - 33.0 pg [facility] . [facility] MCHC 32.4 32.0 - 36.0 g/dL [facility] . [facility] RDW 12.5 11.0 - 15.0 % [facility] . [facility] PLATELETS 291 140 - 400 Thousand/u L [facility] . [facility] MPV 11.1 7.5 - 12.5 fL [facility] NEUTROPHIL ABSOLUTE 3,312 1,500 - 7,800 cells/uL [facility] . [facility] LYMPHOCYTE ABSOLUTE 1,964 850 - 3,900 cells/uL [facility] . [facility] MONOCYTE ABSOLUTE 470 200 - 950 cells/uL [facility] . [facility] EOSINOPHIL ABSOLUTE 287 15 - 500 cells/uL [facility] . [facility] BASOPHILS ABSOLUTE 67 0 - 200 cells/uL [facility] . [facility] NEUTROPHIL 54.3 % [facility] . [facility] LYMPHOCYTES 32.2 % [facility] . [facility] MONOCYTE 7.7 % [facility] . [facility] EOSINOPHILS 4.7 % [facility] . [facility] BASOPHILS 1.1 % [facility] Comment: Test Performed at: [facility] [address] [place] ??[phone] Brent Lieberman D.O., MPH Blood 05/13/2018 3:10 AM DIRECTOR OF RESEARCH Eldon Koehler MD HEMATOLOGY ORDERABLE S [facility] [address] [place] [address] * VITAMIN B1 LEVEL (05/13/2018 3:10 AM DIRECTOR OF RESEARCH) VITAMIN B1 11 8 - 30 nmol/L [facility] Comment: Vitamin supplementation within 24 hours prior to blood draw may affect the accuracy of results. This test was developed and its analytical performance characteristics have been determined by [facility]. It has not been cleared or approved by FDA. This assay has been validated pursuant to the CLIA regulations and is used for clinical purposes. FASTING:YES FASTING: YES Test Performed at: [facility] [address] [place], [place] ??[phone] Alistair Mae M.D., Ph.D Blood 05/13/2018 3:10 AM DIRECTOR OF RESEARCH Eldon Koehler MD CHEMISTRY ORDERABLES [facility] [address] [place] [address] * EYE CULTURE WITH GRAM STAIN (01/13/2018 11:40 AM CDT) CULTURE 1+ or few Normal skin miller 01/15/2018 12:23 PM CDT [facility] GRAM STAIN No organisms observed 01/15/2018 12:23 PM CDT [facility] GRAM STAIN 1+ (Rare or Occasional) WBC 01/15/2018 12:23 PM CDT [facility] Eye (Conjunctiva, left) Collection / Unknown 01/13/2018 11:40 AM CDT 01/13/2018 3:53 PM CDT Eldon Koehler MD MICROBIOLOGY - GENER AL ORDERABLES [facility] [facility]# [id number] [address] [place], [place] [address] [address] documented in this encounter Visit Diagnoses Diagnosis Other specified hypothyroidism- Primary Osteoarthritis of multiple joints, unspecified osteoarthritis type Impaired fasting glucose Fibromyalgia Mylagia and myositis, unspecified Recurrent major depressive disorder, in partial remission S/P bariatric surgery Bariatric surgery status Other hyperlipidemia Acute bacterial conjunctivitis of left eye Restless leg syndrome Restless legs syndrome (RLS) documented in this encounter Care Teams Contract Officer Relationship Specialty Start Date End Date Eldon Koehler MD PCP - General 10/06/07 documented as of this encounter
--- OUTSIDE RECORDS SUMMARY | 2024-05-22 17:01 | XMS_ITS | Encounter Summary ---
Author Organization [facility] Address [address] [place] [address] Care Team Providers Care Mountain Bike Guide Name Role Phone Eldon Koehler MD Primary Care Provider Encounter Details Date Type Department Care Team (Late st Contact Info) Description 10/09/2016 Abstract [facility] Surgical Specialists - [address] [phone] Elizabeth Mcbride MD [address] [place] [phone] Social History Tobacco Use Types Packs/Day Years [...] Description 07/27/2024 9:40 AM CDT Office Visit [facility] Primary Care [address] [place] [address] Eldon Koehler MD 7 [facility] [address] [place] [address] documented as of this encounter Visit Diagnoses Not on filedocumented in this encounter Care Teams Mountain Bike Guide Relationship Specialty Start Date End Date Eldon Koehler MD PCP - General 10/06/07 documented as of this encounter
--- OUTSIDE RECORDS SUMMARY | 2024-05-22 17:01 | XMS_ITS | Encounter Summary ---
Author Organization [facility] Address [address] [place] [address] Care Team Providers Care Bander And Cellophaner Helper Machine Name Role Phone Eldon Koehler MD Primary Care Provider [phone] Reason for Visit * Reason Onset Date Comments Medication Refill 09/24/2016 Encounter Details Date Type Department Care Team (Late st Contact Info) Description 09/24/2016 Refill [facility] Internal Medicine [address] [address] Eldon Koehler MD [address] [place] [address] Fibromyalgia Social History Tobacco Use Types [...] encounter Miscellaneous Notes * Telephone Encounter - Mitra Ward - 09/26/2016 1:50 PM CDT Script faxed to [facility] * Telephone Encounter - Mitra Ward - 09/25/2016 1:43 PM CDT Could not find script for Scott to reprint. * Telephone Encounter - Mitra Ward - 09/24/2016 4:44 PM CDT Lf 03/15/16 Next ov 11/14/16 Lyrica script will need to be manually faxed. documented in this encounter Plan of Treatment Upcoming Encounters Date Type Department Care Team (Late st Contact Info) Description 07/27/2024 9:40 AM CDT Office Visit [facility] Primary Care [address] [phone] Eldon Koehler MD [address] [place] [phone] documented as of this encounter Visit Diagnoses Diagnosis Fibromyalgia Mylagia and myositis, unspecified documented in this encounter Care Teams Bander And Cellophaner Helper Machine Relationship Specialty Start Date End Date Eldon Koehler MD PCP - General 10/06/07 documented as of this encounter
--- OUTSIDE RECORDS SUMMARY | 2024-05-22 17:01 | XMS_ITS | Encounter Summary ---
Author Organization [facility] Address [address] [place] [address] Care Team Providers Care Food Technology Teacher Name Role Phone Eldon Koehler MD Primary Care Provider [phone] Encounter Details Date Type Department Care Team (Late Contact Info) Description 10/09/2016 Orders Only [facility] Surgical Specialists - [address] [phone] Stefanie Mccrary RN Morbid obesity, unspecified obesity type (Primary [...] Description 07/27/2024 9:40 AM CDT Office Visit [facility] Primary Care [address] [place] [address] Eldon Koehler MD [address] [place] [address] [address] [place] [address] documented as of this encounter Procedures Procedure Name Priority Date/Time Associated Diagnosis Comments EDUCATION SLEEVE GASTRECTOMY- ODILIA Routine 10/09/2016 9:46 AM CDT Morbid obesity, unspecified obesity type documented in this encounter Results * EDUCATION SLEEVE GASTRECTOMY- ODILIA (10/09/2016 9:46 AM CDT) Education Name SLEEVE GASTRECTOMY ODILIA EDUCATION INTERFACE Education URL [email or web address] ODILIA EDUCATION INTERFACE EDUCATION ACCESS CODE [id number] [facility] EDUCATION INTERFACE EDUCATION ISSUE DATE October 09, 2016 ODILIA EDUCATION INTERFACE EDUCATION START DATE Oct 10, 2016 [facility]ILIA EDUCATION INTERFACE EDUCATION COMPLETED DATE Dec 26, 2016 [facility]ILIA EDUCATION INTERFACE EDUCATION EXPIRATION DATE Nov 08, 2016 ODILIA EDUCATION INTERFACE EDUCATION MESSAGE EVENT Completed ODILIA EDUCATION INTERFACE 10/09/2016 9:46 AM CDT Elizabeth Gomez MD EXTERNAL EDUCATI ON ORDERABLES ODILIA EDUCATION INTERFACE documented in this encounter Visit Diagnoses Diagnosis Morbid obesity, unspecified obesity type- Primary documented in this encounter Care Teams Food Technology Teacher Relationship Specialty Start Date End Date Eldon Koehler MD PCP - General 10/06/07 documented as of this encounter
--- OUTSIDE RECORDS SUMMARY | 2024-05-22 17:01 | XMS_ITS | Encounter Summary ---
Author Organization [facility] Address [address] [place] [address] Care Team Providers Care Spray Machine Tender Name Role Phone Eldon Koehler MD Primary Care Provider [phone] Encounter Details Date Type Department Care Team (Latest Contact Info) Description 11/28/2016 10:00 AM CDT - 11/28/2016 11:59 PM T Hospital Encounter [facility] Services Amor [place] [address] [address] [phone] Elizabeth Mcbride MD [address] [place] [address] Iliana Melo, RD Discharge Disposition: Home or Self Care Social [...] - Inhaled Oxygen Concentration - - Weight 130.8 kg (288 lb 6 oz) 11/28/2016 11:00 A M CDT Height 166.4 cm (5' 5.5 ) 11/28/2016 11:00 AM CD T Body Mass Index 47.26 11/28/2016 11:00 AM CDT documented in this encounter Medications at Time of Discharge Medication Sig Dispensed Refills Start Date End Date celecoxib (CeleBREX) 200 mg capsule Take 1 Capsule (200 mg) by mouth 2 times daily. 180 Capsule 3 11/15/2016 01/22/2017 rOPINIRole (REQUIP) 2 mg Tablet Take 1 Tablet (2 mg) by mouth daily at bedtime. 90 Tablet 3 11/15/2016 12/03/2017 pregabalin (LYRICA) 50 mg CapsuleIndications:Fi bromyalgia Take 1 Capsule (50 mg) by mouth 2 times daily. 180 Capsule 1 09/25/2016 10/15/2017 DULoxetine (CYMBALTA) 60 mg Capsule, Delayed Release(E.C.) Take 1 Capsule (60 mg) by mouth daily. 90 Capsule 3 09/24/2016 08/04/2017 atorvastatin (LIPITOR) 20 mg tablet Take 1 tablet by mouth daily late in the day. 90 Tablet 3 09/24/2016 12/19/2016 omeprazole (PriLOSEC) 20 mg Capsule, Delayed Release(E.C.) Take 1 capsule by mouth daily. 90 Capsule 3 09/24/2016 01/22/2017 levothyroxine 150 mcg tablet Take 1 Tablet (150 mcg) by mouth daily. 90 Tablet 3 08/15/2016 10/15/2017 albuterol HFA 90 mcg inhalerIndications:RT I (respiratory tract infection) Take 2 Puffs by inhalation 4 times daily as needed for Shortness of Breath. 8.5 Gram 5 04/11/2015 05/08/2018 azithromycin (ZITHROMAX) 250 mg tabletIndications:RTI (respiratory tract infection) Take 2 tabs the first day and 1 tab days 2-5 1 Package 0 01/21/2014 03/07/2017 documented as of this encounter Progress Notes * Iliana Melo, RD - 11/28/2016 11:01 AM CDT NUTRITION CONSULTATION (FOLLOW-UP) [facility] Winifred Rodriguez is a 66 y.o. female who is seeking bariatric surgery/procedures at this time. Thisis her 2nd meeting of two. She has lost 9 lbs since our last visit. Diagnosis: E66.01, V85.41, E78.4, R73.01 Height: 5' 5.5 (166.4 cm) (11/28/16 1100) Weight: 130.8 kg (288 lb 6 oz) (11/28/16 1100) Body mass index is 47.26 kg/(m^2). Past weights: 295 lb 6 oz (09/26/2016) Lab Results Component Value Date/Time NA 142 11/05/2016 03:05 AM K 4.5 11/05/2016 03:05 AM CL 106 11/05/2016 03:05 AM CO2 29 11/05/2016 03:05 AM CA 9.1 11/05/2016 03:05 AM BUN 14 11/05/2016 03:05 AM CREAT 0.70 11/05/2016 03:05 AM GLUCOSE 107 (H) 11/05/2016 03:05 AM ANIONGAP 12 08/14/2015 03:10 PM BCRATIO NOT APPLICABLE 11/05/2016 03:05 AM Lab Results Component Value Date/Time CHOLTOT 158 11/05/2016 03:05 AM HDL 47 05/23/2015 12:01 PM LDLCALC 100 (H) 05/23/2015 12:01 PM TRIGLYCERIDE 190 (H) 05/23/2015 12:01 PM Lab Results Component Value Date/Time HGBA1C 5.9 (H) 11/05/2016 03:05 AM Diet: Usually eats 3 meals and 2 snacks a day. Back on diet plan for the past 2 weeks. Has been keeping food log and maintaining calorie limit of 1200 and meeting protein goal of 60-80 gm per day. Has increased intake of fruit and vegetables. Using smaller plate and working on chewing foods well. States she has slowed down time it takes to eat a meal. She has found a chewable vitamin to use after surgery. Exercise and Activity Types and frequency: swims/exercise in pool 3-4 x week, stationary bike 30 min on days she does notswim Cannot use her fit bit due to allergic reaction to band. Knees feel better when she spends time in pool. Shoulder tear limits strokes she can do in pool. Assessment/Plan Winifred is doing will with making changes she will need to follow after surgery. Discussed nutritionalexpectations post bariatric surgery. Stressed the importance of healthy diet and benefits of physical activity. Encouraged healthy lifestyle and eating behaviors. Discussed patient's present dietary habits and set goals to aid in pre and post surgery weight loss. -Verbalizes understanding of dietary changes post procedure: yes -Verbalizes understanding of dietary changes: yes -Verbalizes willingness to participate in physical activity: yes -Motivation for change: high -RD's prediction for client success and compliance: very good Reviewed nutrition Expectations from Complete Nutrition Guide for Bariatric Surgery 1=no progress, 2=started working on goal, 3=making good progress, 4=met goal Exercise 1) exercise = 4 Food 1) eat a healthy breakfast = 4 2) eat all foods groups: fruits, vegetables, whole grains, lean protien, and low-fat dairy = 4 3) limit or eliminate simple sugars and high fat foods = 3 4) eat 3-4 meals a day = 4 5) drink 48-64oz of sugar-free, alcohol free, decaffeinated, and carbonated fluids = 4 6) eliminate caffeine = 3 7) practice taking very small bites/sips of foods and beverages = 3 8) chew food thoroughly = 3 9) take at least 20-30 minutes to eat a meal = 3 10) stop eating when satisfied = 3 11) always eat protein first = 3 12) do not drink 10-15 mins before or 30-60 mins after eating = 3 13) read food labels = 4 Food log 1) keep food log = 4 Other 1) try protein powders and/or supplements = 4 2) use support system = 4 Pt Specific Goals 1) keep food log to track calorie and protein intake 2) Exercise daily - swim or use stationary bike 3)Eat protein food first 4) use small plate 5) follow full liquid diet 2 weeks prior to surgery Time spent with pt: 35 min Follow up appointment: pt will make appt. 6-8 weeks after surgery Thank you for allowing me to participate in care of this patient! documented in this encounter Plan of Treatment Upcoming Encounters Date Type Department Care Team (Late st Contact Info) Description 07/27/2024 9:40 AM CDT Office Visit [facility] Primary Care [address] [place] [address] Eldon Koehler MD [address] [place] [address] [address] [place] [address] documented as of this encounter Visit Diagnoses Not on filedocumented in this encounter Care Teams Spray Machine Tender Relationship Specialty Start Date End Date Eldon Koehler MD PCP - General 10/06/07 documented as of this encounter
--- OUTSIDE RECORDS SUMMARY | 2024-05-22 17:01 | XMS_ITS | Encounter Summary ---
Author Organization [facility] Address [address] [place] [address] Care Team Providers Care Multimedia Educational Specialist Name Role Phone Eldon Koehler MD Primary Care Provider Reason for Visit * Reason Onset Date Comments Erroneous encounter-disregard 01/13/2018 Encounter Details Date Type Department Care Team (Late st Contact Info) Description 01/13/2018 Telephone [facility] Internal Medicine [address] [address] Eldon Koehler MD [address] [place] [address] [address] [place] [address] Erroneous encounter-disregard Social History Tobacco Use Types Packs/Day Years [...] CDT Office Visit [facility] Primary Care [address] [place] [address] Eldon Koehler MD [address] [place] [address] [address] [place] [address] documented as of this encounter Visit Diagnoses Not on filedocumented in this encounter Care Teams Multimedia Educational Specialist Relationship Specialty Start Date End Date Eldon Koehler MD PCP - General 10/06/07 documented as of this encounter
--- OUTSIDE RECORDS SUMMARY | 2024-05-22 17:01 | XMS_ITS | Encounter Summary ---
Author Organization [facility] Address [address] [place] [address] Care Team Providers Care Medical Radiation Therapist Name Role Phone Eldon Koehler MD Primary Care Provider [phone] Reason for Visit * Reason Onset Date Comments Medication Review 10/25/2016 Encounter Details Date Type Department Care Team (Late st Contact Info) Description 10/25/2016 Telephone [facility] Internal Medicine [address] [address] Eldon Koehler MD [address] [place] [phone] Medication Review Social History Tobacco Use Types Packs/Day Years [...] encounter Miscellaneous Notes * Telephone Encounter - Glendy Ross - 10/25/2016 12:38 PM CDT Phoned in * Telephone Encounter - Eldon Koehler MD - 10/25/2016 12:22 PM CDT Make sure lorazepam called to pharmacy See email documented in this encounter Plan of Treatment Upcoming Encounters Date Type Department Care Team (Late st Contact Info) Description 07/27/2024 9:40 AM CDT Office Visit [facility] [address] [place] [address] Eldon Koehler MD [address] [place] [address] [address] [place] [address] documented as of this encounter Visit Diagnoses Not on filedocumented in this encounter Care Teams Medical Radiation Therapist Relationship Specialty Start Date End Date Eldon Koehler MD PCP - General 10/06/07 documented as of this encounter
--- OUTSIDE RECORDS SUMMARY | 2024-05-22 17:01 | XMS_ITS | Encounter Summary ---
Author Organization [facility] Address [address] [place] [address] Care Team Providers Care Sponge Diver Name Role Phone Eldon Koehler MD Primary Care Provider [phone] Reason for Visit * Reason Onset Date Comments Reschedule appointment 02/04/2017 Encounter Details Date Type Department Care Team ([facility] st Contact Info) Description 02/04/2017 Telephone [facility] Surgical Specialists - [address] [phone] Elizabeth Mcbride MD [address] [place] [address] Reschedule appointment Social History Tobacco Use Types Packs/Day Years [...] encounter Miscellaneous Notes * Telephone Encounter - Anabella Solorzano - 02/04/2017 11:29 AM CDT Spoke to patient. Advised patient to start slowly with Stage 2 diet. Patient to call plush weaver withany questions regarding pureed foods. Patient agreed. Also, patient states her is doing well so far and she plans on keeping her follow up appointment with Dr. Gomez tomorrow. * Telephone Encounter - Elizabeth Mcbride MD - 02/04/2017 11:17 AM CDT Yes, she can advance to stage 2. 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 Patient was scheduled for follow up appointment today. Patient contacted the office stating she cannot keep her appointment today because of a family emergency. They are taking her to the ER for a possible TIA. Reassured patient that she needs to be with her right now and we will reschedule her for tomorrow morning. Patient isto call the office if unable to keep that appointment. Upon questioning, patient states she is doing well. States she has had issues with nausea when consuming anything with artificial sweetener . Patient states she is concerned that she is not consuming enough calories. States she is getting fluids in without difficulty. Urine concentrated at times. Patient wanting to know if she can try scrambled eggs today to get more protein. Explained to the patient that Dr. Gomez will be in the office this afternoon and I will call her back. Patient verbally understood. documented in this encounter Plan of Treatment Upcoming Encounters Date Type Department Care Team (Late st Contact Info) Description 07/27/2024 9:40 AM CDT Office Visit [facility] Primary Care [address] [place] [address] Eldon Koehler MD [address] [place] [address] [address] [place] [address] documented as of this encounter Visit Diagnoses Not on filedocumented in this encounter Care Teams Sponge Diver Relationship Specialty Start Date End Date Eldon Koehler MD PCP - General 10/06/07 documented as of this encounter
--- OUTSIDE RECORDS SUMMARY | 2024-05-22 17:01 | XMS_ITS | Encounter Summary ---
Author Organization [facility] Address [address] [place] [address] Care Team Providers Care Certified Phlebotomy Technician Name Role Phone Eldon Koehler MD Primary Care Provider [phone] Reason for Visit * Reason Onset Date Comments Holding on Bariatric Surgery 10/15/2016 Encounter Details Date Type Department Care Team (Late st Contact Info) Description 10/15/2016 Telephone [facility] - [place] [address] [facility] [address] [place] [address] tSefanie Mccrary, BENEDICT Holding on Bariatric Surgery Social History Tobacco Use Types Packs/Day Years [...] Miscellaneous Notes * Telephone Encounter - Stefanie Mccrary RN - 10/15/2016 8:26 AM CDT Received email from patient: Fern: I have decided to forego the bariatric sleeve surgery for a year. There are too many things up in the air and I could not do justice to the program at this time. Thank all of you so much for explaining everything to my and I and the great videos. I will be in touch after my latest grandbaby is born. Thanks again, Winifred Rodriguez I replied and wished her the best. She has completed the program. She will let us know when she wishes to restart. Remaining orders cancelled. documented in this encounter Plan of Treatment Upcoming Encounters Date Type Department Care Team (Late st Contact Info) Description 07/27/2024 9:40 AM CDT Office Visit [facility] Primary Care [address] [place] [address] Eldon Koehler MD [address] [place] [phone] documented as of this encounter Visit Diagnoses Not on filedocumented in this encounter Care Teams Certified Phlebotomy Technician Relationship Specialty Start Date End Date Eldon Koehler MD PCP - General 10/06/07 documented as of this encounter
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
--- OUTSIDE RECORDS SUMMARY | 2024-05-22 17:01 | XMS_ITS | Encounter Summary ---
Author Organization [facility] Address [address] [place] [address] Care Team Providers Care Application Programmer Analyst Name Role Phone Eldon Koehler MD Primary Care Provider [phone] Reason for Referral * Eval and Treat (Routine) - Closed Specialty Diagnoses / Procedures Referred By Contac t Referred To Contact Nutrition Diagnoses Impaired fasting glucose Obesity (BMI 35.0-39.9 without comorbidity) Elizabeth Mcbride MD [address] [place] [address] [address] [place] [address] Beth Weller, RD [address] [place] [address] [address] [place] [address] Referral ID Status Reason Start Date Expiration Date Visits Requested Visits Authorized [id number] Closed Performing Department To Schedule (STL) 11/28/2017 11/29/2018 2 2 Reason for Visit * Reason Comments Obesity Patient s/p laparosc opic sleeve gastrectomy 01/21/2017. Follow up on Phentermine prescribed 10/16/2017. Encounter Details Date Type Department Care Team (Late st Contact Info) Description 11/28/2017 7:45 AM CDT Office Visit [facility] - [place] [address] [facility] [address] [place] [address] Elizabeth Mcbride MD [address] [place] [address] Impaired fasting glucose (Primary Dx); Obesity (BMI 35.0-39.9 without comorbidity); Folic acid deficiency (non anemic); Vitamin B1 deficiency; S/P bariatric surgery Social History Tobacco Use [...] Sign Reading Time Taken Comments Blood Pressure 115/81 11/28/2017 8:22 AM CDT Pulse 85 11/28/2017 8:22 AM CDT Temperature - - Respiratory Rate - - Oxygen Saturation 97% 11/28/2017 8:22 AM CDT Inhaled Oxygen Concentration - - Weight 98.6 kg (217 lb 6.4 oz) 11/28/2017 8:22 A M CDT Height 166.4 cm (5' 5.5 ) 11/28/2017 8:22 AM CDT Body Mass Index 35.63 11/28/2017 8:22 AM CDT documented in this encounter Progress Notes * Anabella Solorzano - 11/28/2017 8:21 AM CDT Patient s/p laparoscopic sleeve gastrectomy 01/21/2017. Follow up on Phentermine prescribed 10/16/2017. Controlling appetite: YES Tachycardia/Chest Pain/Shortness of Breath: NO Constipation: NO Dry Mouth: YES Patient drinking 48oz fluids daily. Urine clear and yellow: YES Dizziness/Lightheadedness: NO Patient was diagnosed with conjunctivitis and URI on 11/20/2017. Patient was placed on Omnicef and Medrol Dose pack. Patient states the first 2 days of taking the Medrol Dose pack, she developed nausea and vomiting. Patient also had manic symptoms and insomnia. Patient was taking Medrol Dose Pack in addition to Phentermine. Patient states she has taken Prednisone before without any side effects. Patient states all symptoms resolved after completing the Medrol Dose Pack. * Elizabeth Mcbride MD - 11/26/2017 5:02 PM CDT Images from the original note were not included. Chief Complaint Patient presents with ??? Obesity Patient s/p laparoscopic sleeve gastrectomy 01/21/2017. Follow up on Phentermine prescribed 10/16/2017. iWnifred Rodriguez is a 67 y.o. female s/p laparoscopic sleeve gastrectomy 01/21/2017. Follow up on Phentermine prescribed 10/16/2017. ?? Controlling appetite: YES Tachycardia/Chest Pain/Shortness of Breath: NO Constipation: NO Dry Mouth: YES Patient drinking 48oz fluids daily. Urine clear and yellow: YES Dizziness/Lightheadedness: NO ?? Patient was diagnosed with conjunctivitis and URI on 11/20/2017. Patient was placed on Omnicef and Medrol Dose pack. Patient states the first 2 days of taking the Medrol Dose pack, she developed nausea and vomiting. Patient also had manic symptoms and insomnia. Patient was taking Medrol Dose Pack in addition to Phentermine. Patient states she has taken Prednisone before without any side effects.Patient states all symptoms resolved after completing the Medrol Dose Pack. Sp bariatric surgery [place] body weight (IBW) 130 Excess Body Weight (EBW) 170 Reasonable post op weight goal -85= 215 date Weight weight lost % EBW Highest preop weight 300 preop visit 287 Date of Surgery 01.21.2017 laparoscopic sleeve gastrectomy 02/05/2017 First post op visit 116.9 kg (257 lb 12.8 oz) (02/05/17 0841) 03/13/2017 243 57 05/15/2017 227 73 10/16/2017 224 76 Started phentermine 11/28/2017 217 83 ?? Intestinal malabsorption following sleeve gastrectomy She is taking vitamins MVI, chewable. Not Calcium - she bout it yesterday ?? MURIEL She stopped bc she could no longer tolerate it ?? GERD-no sx ?? Hyperlipidemia- on lipitor ?? HTN- no meds ?? DM- denies a1c is below 5.4 ?? b12 def- not taking replacement. Labs ordered but not done ?? Vit d def - not taking replacement. Labs ordered but not done Review of Systems Constitutional: Positive for weight loss. Negative for fever. Cardiovascular: Negative for leg swelling. Gastrointestinal: Negative for abdominal pain, constipation, diarrhea, heartburn, nausea and vomiting. BP 115/81 Pulse 85 Ht 5' 5.5 (1.664 m) Wt 98.6 kg (217 lb 6.4 oz) SpO2 97% BMI 35.63 kg/m?? Physical Exam Constitutional: No distress. Pulmonary/Chest: [...] but not done ??? S/P bariatric surgery PLAN: Orders Placed This Encounter ??? AMB REFERRAL TO [employer] [facility] ??? phentermine (ADIPEX P) 37.5 mg tablet Patient counseled on behaviors necessary for weight [...] stage 4., Discussed exercise and activity expectations, 75650 steps a day, exercise after 6 weeks post op is unrestricted, Goal is 150 minutes a week., Patient reminded that surgery is not a magic fix for weight loss, Patient should see the dietitian, Encouragedto attend support groups., See a counselor and dw PCP if mental health issues arise., take 1500 calcium citrate a day., Take MVI daily., take crushed pills or liquid medications until one month post op. After may resume regular formulations, Patient advised to see PCP about medication changes., First 9 months after surgery is the best time to make headway on weight loss. and fup in 4 months. Discussed risks and benefits of continued phentermine. Will give 2 more months but pt is to watcherher bp at home. This is a complex medication which require monitoring Patient to call with question or problems (including abdominal or back pain, nausea or vomiting, fever or chills during the post operative period, unexpected heartburn or regurgitation, inability to tolerate solid protein foods after fully advancing diet, or having food stuck or spitting up more than once a week. documented in this encounter Plan of Treatment Upcoming Encounters Date Type Department Care Team (Late st Contact Info) Description 07/27/2024 9:40 AM CDT Office Visit [facility] [place] [address] Eldon Koehler MD [address] [place], [place] [id number] Scheduled Referrals Name Type Priority Associated Diagnoses Orde r Schedule AMB REFERRAL TO [employer] [facility] Outpatient Referral Routine Impaired fasting glucose Obesity (BMI 35.0-39.9 without comorbidity) Ordered: 11/28/2017 documented as of this encounter Visit Diagnoses Diagnosis Impaired fasting glucose- Primary Obesity (BMI 35.0-39.9 without comorbidity) Obesity, unspecified Folic acid deficiency (non anemic) Other B-complex deficiencies Vitamin B1 deficiency Other and unspecified manifestations of thiamine deficiency S/P bariatric surgery Bariatric surgery status documented in this encounter Care Teams Application Programmer Analyst Relationship Specialty Start Date End Date Eldon Koehler MD PCP - General 10/06/07 documented as of this encounter
--- OUTSIDE RECORDS SUMMARY | 2024-05-22 17:01 | XMS_ITS | Encounter Summary ---
Author Organization [facility] Address [address] [place] [address] Care Team Providers Care Supervisor Pleating Name Role Phone Eldon Koehler MD Primary Care Provider [phone] Reason for Visit * Reason Onset Date Comments No Show 08/15/2017 pt did not show for appt Encounter Details Date Type Department Care Team ([facility] st Contact Info) Description 08/15/2017 Telephone [facility] Surgical Specialists - [address] [address] Elizabeth Mcbride MD [address] [place] [address] No Show (pt did not show for appt) Social History Tobacco Use Types Packs/Day Years [...] encounter Miscellaneous Notes * Telephone Encounter - Chi Roca - 08/15/2017 9:34 AM CDT Patient had not shown for appointment this morning. Called patient who stated she did not realize she had an appointment today. Patient states she will call back to reschedule. documented in this encounter Plan of Treatment Upcoming Encounters Date Type Department Care Team (Late st Contact Info) Description 07/27/2024 9:40 AM CDT Office Visit [facility] Primary Care [address] [place] [address] Eldon Koehler MD [address] [place] [address] [address] [place] [address] documented as of this encounter Visit Diagnoses Not on filedocumented in this encounter Care Teams Supervisor Pleating Relationship Specialty Start Date End Date Eldon Koehler MD PCP - General 10/06/07 documented as of this encounter
--- OUTSIDE RECORDS SUMMARY | 2024-05-22 17:01 | XMS_ITS | Encounter Summary ---
Author Organization [facility] Address [address] [place] [address] Care Team Providers Care Residential Program Manager Name Role Phone Eldon Koehler MD Primary Care Provider [phone] Reason for Visit * Reason Onset Date Comments Hospital Follow Up 01/23/2017 Encounter Details Date Type Department Care Team ([facility] st Contact Info) Description 01/23/2017 Patient Outreach [facility] Surgical Specialists - [address] [phone] Elizabeth Mcbride MD [address] [place] [address] Hospital Follow Up Social History Tobacco Use Types Packs/Day Years [...] * Telephone Encounter - Anabella Solorzano - 01/23/2017 3:58 PM CDT Patient s/p laparoscopic sleeve gastrectomy on 01/21/2017. Patient contacted to check on post op status. Incision sites healing: YES Fever: NO Taking Hycet: YES-LAST NIGHT Nausea: NO. Taking Zofran: NO Shortness of breath/chest pain/tachycardia: NO Tolerating fluids: YES. Will work up to 48-64oz daily. Dry Mouth: NO Urine clear and yellow: SLIGHTLY CONCENTRATED-ADVISED TO KEEP WITH THINNER LIQUIDS. Dizziness/Lightheadedness: NO Signs and symptoms of dehydration reviewed with patient. Patient to call office with any symptoms of dizziness, lightheadedness, dry mouth, fatigue, or concentrated urine. Protein shakes: NO-WILL TRY THIS WEEKEND. Will work up to 60-80 grams daily. Bowel movement: NO. If no bowel movement in 3 days, take Milk of Mag. Taking Famotidine: NO-WILL START TONIGHT. Take daily for 30 days. Call with any symptoms of GERD. Follow up appointment scheduled for 02/04/2017. Reminded patient to stay on FULL liquid diet until seen by Dr. Gomez. Continue crushing medications for 4 weeks post op. documented in this encounter Plan of Treatment Upcoming Encounters Date Type Department Care Team (Late st Contact Info) Description 07/27/2024 9:40 AM CDT Office Visit [facility] [place] [address] [place] [address] Eldon Koehler MD [address] [place] [address] documented as of this encounter Visit Diagnoses Not on filedocumented in this encounter Care Teams Residential Program Manager Relationship Specialty Start Date End Date Eldon Koehler MD PCP - General 10/06/07 documented as of this encounter
--- OUTSIDE RECORDS SUMMARY | 2024-05-22 17:01 | XMS_ITS | Encounter Summary ---
Author Organization [facility] Address [address] [place] [address] Care Team Providers Care Chemistry Physics Teacher Name Role Phone Eldon Koehler MD Primary Care Provider [phone] Reason for Visit * Reason Onset Date Comments Medication Refill 12/18/2016 Encounter Details Date Type Department Care Team (Late st Contact Info) Description 12/19/2016 Refill [facility] Internal Medicine [address] [address] Delmis Akhtar, HOG SCALDER[address] [address] Other hyperlipidemia (Primary Dx) Social History Tobacco Use Types [...] encounter Miscellaneous Notes * Telephone Encounter - Delmis Vazquez FNP - 12/19/2016 7:59 AM CDTFrom: Winifred Rodriguez To: Eldon Koehler MD Sent: 12/18/2016 6:58 PM CDT Subject: Medication Renewal Request Original authorizing provider: MD Winifred Wilkes would like a refill of the following medications: atorvastatin (LIPITOR) 20 mg tablet [Eldon Koehler MD] Preferred pharmacy: [facility] - [address] Delivery method: Pickup Preferred pick-up date and time: 12/25/2016 12:30 PM Comment: documented in this encounter Plan of Treatment Upcoming Encounters Date Type Department Care Team (Late st Contact Info) Description 07/27/2024 9:40 AM CDT Office Visit [facility] Primary Care [place] [address] [place] [address] Eldon Koehler MD [address] [place] [address] [address] [place] [address] documented as of this encounter Visit Diagnoses Diagnosis Other hyperlipidemia- Primary documented in this encounter Care Teams Chemistry Physics Teacher Relationship Specialty Start Date End Date Eldon Koehler MD PCP - General 10/06/07 documented as of this encounter
--- OUTSIDE RECORDS SUMMARY | 2024-05-22 17:01 | XMS_ITS | Encounter Summary ---
Author Organization [facility] Address [address] [place] [address] Care Team Providers Care Fire Prevention Bureau Captain Name Role Phone Eldon Koehler MD Primary Care Provider Encounter Details Date Type Department Care Team (Late st Contact Info) Description 09/27/2016 Abstract [facility] Surgical Specialists - [address] [phone] Stefanie Mccrary RN Social History Tobacco Use Types Packs/Day [...] Visit [facility] Primary Care [place] [address] [place] [address] Eldon Koehler MD [address] [place] [address] [address] [place] [address] documented as of this encounter Visit Diagnoses Not on filedocumented in this encounter Care Teams Fire Prevention Bureau Captain Relationship Specialty Start Date End Date Eldon Koehler MD PCP - General 10/06/07 documented as of this encounter
--- OUTSIDE RECORDS SUMMARY | 2024-05-22 17:01 | XMS_ITS | Encounter Summary ---
Author Organization [facility] Address [address] [place] [address] Care Team Providers Care Conditioning Coach Name Role Phone Eldon Koehler MD Primary Care Provider Reason for Visit * Reason Comments Medication Refill Encounter Details Date Type Department Care Team (Late st Contact Info) Description 12/03/2017 Refill [facility] Internal Medicine [address] [phone] Eldno Koehler MD [address] [place] [phone] Social History Tobacco Use Types Packs/Day [...] * Telephone Encounter - Pearl Black - 12/03/2017 7:36 AM CDT EMILY 11/20/17 No future visit documented in this encounter Plan of Treatment Upcoming Encounters Date Type Department Care Team (Late st Contact Info) Description 07/27/2024 9:40 AM CDT Office Visit [facility] Primary Care [address] [place] [address] Eldon Koehler MD [address] [place] [address] [address] [place] [address] documented as of this encounter Visit Diagnoses Not on filedocumented in this encounter Care Teams Conditioning Coach Relationship Specialty Start Date End Date Eldon Koehler MD PCP - General 10/06/07 documented as of this encounter
--- OUTSIDE RECORDS SUMMARY | 2024-05-22 17:01 | XMS_ITS | Encounter Summary ---
Author Organization [facility] Address [address] [place] [address] Care Team Providers Care It Applications Manager Name Role Phone Eldon Koehler MD Primary Care Provider [phone] Reason for Visit * Reason Onset Date Comments Wants Appointment 11/20/2017 Encounter Details Date Type Department Care Team (Late st Contact Info) Description 11/20/2017 Telephone [facility] Internal Medicine [address] [address] Eldon Koehler MD [address] [place] [address] Wants Appointment Social History Tobacco Use Types Packs/Day Years [...] * Telephone Encounter - Mitra Ward - 11/20/2017 11:39 AM CDT Pt called back and was told she can come in at 3p to see Lacy. * Telephone Encounter - Lacy Vasquez ANP - 11/20/2017 10:45 AM CDT I can work in this afternoon if she wishes. * Telephone Encounter - Martha Plata - 11/20/2017 10:13 AM CDT Patient c/o waking up with pink eye, sore throat, and slight cough. 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 Can you work her in at that time or call something in? documented in this encounter Plan of Treatment Upcoming Encounters Date Type Department Care Team (Late st Contact Info) Description 07/27/2024 9:40 AM CDT Office Visit [facility] Care [place] [address] [place] [address] Eldon Koehler MD [address] [place] [address] documented as of this encounter Visit Diagnoses Not on filedocumented in this encounter Care Teams It Applications Manager Relationship Specialty Start Date End Date Eldon Koehler MD PCP - General 10/06/07 documented as of this encounter
--- OUTSIDE RECORDS SUMMARY | 2024-05-22 17:01 | XMS_ITS | Encounter Summary ---
Author Organization [facility] Address [address] [place] [address] Care Team Providers Care Microsoft Exchange Administrator Name Role Phone Eldon Koehler MD Primary Care Provider Reason for Visit * Reason Comments Medication Refill Encounter Details Date Type Department Care Team (Late st Contact Info) Description 10/28/2017 Refill [facility] Internal Medicine [address] [phone] Eldon Koehler MD [address] [place] [address] Social History Tobacco Use Types Packs/Day [...] * Telephone Encounter - Pearl Black - 10/28/2017 6:47 AM CDT EMILY 06/12/17 No future visit documented in this encounter Plan of Treatment Upcoming Encounters Date Type Department Care Team (Late st Contact Info) Description 07/27/2024 9:40 AM CDT Office Visit [facility] Primary Care [address] [place] [address] Eldon Koehler MD [address] [place] [address] [address] [place] [address] documented as of this encounter Visit Diagnoses Not on filedocumented in this encounter Care Teams Microsoft Exchange Administrator Relationship Specialty Start Date End Date Eldon Koehler MD PCP - General 10/06/07 documented as of this encounter
--- OUTSIDE RECORDS SUMMARY | 2024-05-22 17:01 | XMS_ITS | Encounter Summary ---
Author Organization [facility] Address [address] [place] [address] Care Team Providers Care Flagger Name Role Phone Eldon Koehler MD Primary Care Provider [phone] Encounter Details Date Type Department Care Team (Late st Contact Info) Description 01/08/2017 Orders Only [facility] Internal Medicine [address] [address] Eldon Koehler MD [address] [place] [address] [address] [place] [address] Social History Tobacco Use Types [...] Progress Notes * Eldon Koehler MD - 01/08/2017 5:41 PM CDT email documented in this encounter Plan of Treatment Upcoming Encounters Date Type Department Care Team (Late st Contact Info) Description 07/27/2024 9:40 AM CDT Office Visit [facility] Primary Care [address] [place] [address] Eldon Koehler MD [address] [place] [address] [place] [address] documented as of this encounter Visit Diagnoses Not on filedocumented in this encounter Care Teams Flagger Relationship Specialty Start Date End Date Eldon Koehler MD PCP - General 10/06/07 documented as of this encounter
--- OUTSIDE RECORDS SUMMARY | 2024-05-22 17:01 | XMS_ITS | Encounter Summary ---
Author Organization [facility] Address [address] [place] [address] Care Team Providers Care Academic Manager Name Role Phone Eldon Koehler MD Primary Care Provider [phone] Reason for Visit * Reason Onset Date Comments other 11/22/2016 Encounter Details Date Type Department Care Team (Late Contact Info) Description 11/22/2016 Telephone [facility] Surgical Specialists - [place] [address] [place] [address] Eveline Orellana RN other Social History Tobacco Use Types Packs/Day Years [...] encounter Miscellaneous Notes * Telephone Encounter - Eveline Rebollar RN - 11/22/2016 3:25 PM CDT LMOVM for patient. She is wanting to restart the bariatric surgery process. I will wait to hear from her and go over with her the remaning steps to complete and place the needed orders for her. Eveline Rebollar RN Metal Miner documented in this encounter Plan of Treatment Upcoming Encounters Date Type Department Care Team (Late Contact Info) Description 07/27/2024 9:40 AM CDT Office Visit [facility] Primary Care [address] [place] [address] Eldon Koehler MD [address] [place] [address] [address] [place] [address] documented as of this encounter Visit Diagnoses Not on filedocumented in this encounter Care Teams Academic Manager Relationship Specialty Start Date End Date Eldon Koehler MD PCP - General 10/06/07 documented as of this encounter
--- OUTSIDE RECORDS SUMMARY | 2024-05-22 17:01 | XMS_ITS | Encounter Summary ---
Author Organization [facility] Address [address] [place] [address] Care Team Providers Care Supervisor Lead Refinery Name Role Phone Eldon Koehler MD Primary Care Provider [phone] Reason for Referral * Eval and Treat (Routine) - Closed Specialty Diagnoses / Procedures Referred By Contac t Referred To Contact Diagnoses Impaired fasting glucose Other hyperlipidemia Postoperative follow-up Elizabeth Mcbride MD [address] [place] [address] [address] [place] [address] Referral ID Status Reason Start Date Expiration Date V isits Requested Visits Authorized [id number] Closed CRS To Schedule (STL) 05/15/2017 05/16/2018 3 3 COORDINATOR Reason for Visit * Reason Comments Obesity S/P laparoscopic sle emily gastrectomy on 01/21/2017. Encounter Details Date Type Department Care Team (Late st Contact Info) Description 05/15/2017 9:00 AM COPY COORDINATOR Office Visit [facility] - [address] [place] [address] Elizabeth Mcbride MD [address] [place] [address] [address] [place] [address] Impaired fasting glucose (Primary Dx); Other hyperlipidemia; Postoperative follow-up Social History Tobacco Use Types Packs/Day Years [...] Reading Time Taken Comments Blood Pressure 124/80 05/15/2017 9:11 AM COPY COORDINATOR Pulse - - Temperature - - Respiratory Rate - - Oxygen Saturation - - Inhaled Oxygen Concentration - - Weight 103 kg (227 lb) 05/15/2017 9:00 AM COPY COORDINATOR Height 166.4 cm (5' 5.5 ) 05/15/2017 9:00 AM COPY COORDINATOR Body Mass Index 37.2 05/15/2017 9:00 AM COPY COORDINATOR documented in this encounter Progress Notes * Elizabeth Mcbride MD - 05/15/2017 9:33 AM CST Images from the original note were not included. Chief Complaint Patient presents with ??? Obesity S/P laparoscopic sleeve gastrectomy on 01/21/2017. Winifred Rodriguez is a 66 y.o. female s/p laparoscopic sleeve gastrectomy 01/21/2017. ?? S/P laparoscopic sleeve gastrectomy on 01/21/2017. Patient denies any nausea or vomiting. Denies GERD. Denies any difficulty swallowing. Bowel movements every three days since surgery. Patient realizes that this is her new normal . Patient drinking at least 24 oz of fluid daily encouraged to increase to 64 ounces. Denies dizziness or lightheadedness. Denies dry mouth. Signs and symptoms of dehydration reviewed with patient. Patient to call office with any symptoms of dizziness, lightheadedness,dry mouth, fatigue, or concentrated urine. Daily caloric intake is about 1000 calories. Patient is drinking 0 protein shakes daily, states that she just cant tolerate the taste anymore. Patients activity regimen is occasionally swimming, walks occasionally. Exercises 3 x weekly. Patient is very pleased with her progress this far. I have so much more energy Patient had lab work completed yesterday by PCP. Patient stopped Vitamin D and Vitamin B12 about 1 month ago. Sp bariatric surgery Kendall body weight (IBW) 130 Excess Body Weight (EBW) 170 Reasonable post op weight goal -85= 215 date Weight weight lost % EBW Highest preop weight 300 preop visit 287 Date of Surgery 01.21.2017 laparoscopic sleeve gastrectomy 02/05/2017 First post op visit 116.9 kg (257 lb 12.8 oz) (02/05/17 0841) 03/13/2017 243 57 05/15/2017 227 73 ?? Intestinal malabsorption following sleeve gastrectomy She is taking vitamins MVI, chewable. Not Calcium - she bout it yesterday ?? MURIEL still using cpap She says she still snores. She discussed w sleep doc ?? GERD-no sx ?? Hyperlipidemia- on lipitor [...] constipation, diarrhea, heartburn, nausea and vomiting. BP 124/80 Ht 5' 5.5 (1.664 m) Wt 103 kg (227 lb) BMI 37.20 kg/m?? Physical Exam Constitutional: No distress. Pulmonary/Chest: No respiratory distress. Abdominal: She exhibits no distension. There is no tenderness. Incisions closed. No errythema Skin: She is not diaphoretic. Psychiatric: She has a normal mood and affect. Her behavior is normal. ASSESSMENT: Encounter Diagnoses Name Primary? Impaired fasting glucose Yes ??? Other hyperlipidemia ??? Postoperative follow-up PLAN: Orders Placed This Encounter ??? AMB REFERRAL TO SUPERVISOR MONE[facility] ROOM Patient counseled on behaviors necessary for weight [...] stage 4., Discussed exercise and activity expectations, 60908 steps a day, exercise after 6 weeks [...] headway on weight loss. and fup in 3 months. Patient to call with question or problems (including abdominal or back pain, nausea or vomiting, fever or chills during the post operative period, unexpected heartburn or regurgitation, inability to tolerate solid protein foods after fully advancing diet, or having food stuck or spitting up more than once a week. COORDINATOR * Yulia Conrad RN - 05/15/2017 9:00 AM CST S/P laparoscopic sleeve gastrectomy on 01/21/2017. Patient denies any nausea or vomiting. Denies GERD. Denies any difficulty swallowing. Bowel movements every three days since surgery. Patient realizes that this is her new normal . Patient drinking at least 24 oz of fluid daily encouraged to increase to 64 ounces. Denies dizziness or lightheadedness. Denies dry mouth. Signs and symptoms of dehydration reviewed with patient. Patient to call office with any symptoms of dizziness, lightheadedness,dry mouth, fatigue, or concentrated urine. Daily caloric intake is about 1000 calories. Patient is drinking 0 protein shakes daily, states that she just cant tolerate the taste anymore. Patients activity regimen is occasionally swimming, walks occasionally. Exercises 3 x weekly. Patient is very pleased with her progress this far. COORDINATOR documented in this encounter Plan of Treatment Upcoming Encounters Date Type Department Care Team (Late st Contact Info) Description 07/27/2024 9:40 AM CDT Office Visit [facility] Primary Care [address] [address] Elodn Koehler MD [address] [place] [address] [place] [phone] Scheduled Referrals Name Type Priority Associated Diagnoses Orde r Schedule AMB REFERRAL TO [facility]PER[facility]OR [facility] RO[facility] Outpatient Referral Routine Impaired fasting glucose Other hyperlipidemia Postoperative follow-up Ordered: 05/15/2017 documented as of this encounter Visit Diagnoses Diagnosis Impaired fasting glucose- Primary Other hyperlipidemia Postoperative follow-up Follow-up examination, following unspecified surgery documented in this encounter Care Teams Supervisor Lead Refinery Relationship Specialty Start Date End Date Eldon Koehler MD PCP - General 10/06/07 documented as of this encounter
--- OUTSIDE RECORDS SUMMARY | 2024-05-22 17:01 | XMS_ITS | Encounter Summary ---
Author Organization [facility] Address [address] [place] [address] Care Team Providers Care Sap Bods Developer Name Role Phone Eldon Koehler MD Primary Care Provider [phone] Reason for Visit * Reason Onset Date Comments other 11/29/2016 Encounter Details Date Type Department Care Team (Late st Contact Info) Description 11/29/2016 Telephone [facility] - [place] [id number] [place] [address] Eveline Orellana, RN other Social History Tobacco Use Types [...] Telephone Encounter - Eveline Rebollar RN - 11/29/2016 8:43 AM CDT Spoke with Winifred regarding establishing with a counselor before bariatric surgery. She has a lot going on in her life and it is high stress. She agrees with that and tells me that she is actually already established with Scarlet ALCARAZ and sees her about every other week, for 4 years. I asked her to have Scarlet Delgado fax me her notes when she sees her again so I can put them in her chart. She will do that, and keep me updated. She tells me she is doing very well and is getting all of her appointments completed. She will call with any questions or concerns. Eveline Rebollar exhibits curatorAccess Service Representative documented in this encounter Plan of Treatment Upcoming Encounters Date Type Department Care Team (Late st Contact Info) Description 07/27/2024 9:40 AM CDT Office Visit [facility] Primary Care [address] [place] [address] Eldon Koehler MD [address] [place] [address] [address] [place] [address] documented as of this encounter Visit Diagnoses Not on filedocumented in this encounter Care Teams Sap Bods Developer Relationship Specialty Start Date End Date Eldon Koehler MD PCP - General 10/06/07 documented as of this encounter
--- OUTSIDE RECORDS SUMMARY | 2024-05-22 17:01 | XMS_ITS | Encounter Summary ---
Author Organization [facility] Address [address] [place] [address] Care Team Providers Care Sprinkler Tender Name Role Phone Eldon Koehler MD Primary Care Provider [phone] Reason for Visit * Reason Comments Surgical Clearance Cataract 06/19/17 Encounter Details Date Type Department Care Team (Late st Contact Info) Description 06/12/2017 11:00 AM SEED CLEANER Office Visit [facility] Internal Medicine [address] [address] Eldon Koehler MD [address] [place] [address] Recurrent major depressive disorder, in partial remission (Primary Dx); Other specified hypothyroidism; Chronic pain of right knee; Hair loss; Other sleep apnea; Fibromyalgia; Obesity (BMI 35.0-39.9 without comorbidity) Social History Tobacco Use Types Packs/Day Years [...] Reading Time Taken Comments Blood Pressure 120/80 06/12/2017 11:12 AM SEED CLEANER Pulse - - Temperature - - Respiratory Rate - - Oxygen Saturation - - Inhaled Oxygen Concentration - - Weight 101.2 kg (223 lb) 06/12/2017 11:12 AM SEED CLEANER Height 166.4 cm (5' 5.5 ) 06/12/2017 11:12 AM CS T Body Mass Index 36.54 06/12/2017 11:12 AM SEED CLEANER documented in this encounter Progress Notes * Eldon Koehler MD - 06/12/2017 11:42 AM CST Subjective: Winifred Rodriguez is a 66 y.o. female. Lost 77 lb Sleep apnea-- off cpap Stress ongoing lft lab pend Fibromyalgia--worse Stress ongoing Knee swells S.p tkr Med reviewed No cardiac sx, for cataract surgery Patient Active Problem List Diagnosis Date Noted ??? Meralgia paresthetica 05/23/2015 ??? Hyperhidrosis 05/31/2014 [...] to Visit Medication Sig Dispense Refill ??? omeprazole (PriLOSEC) 20 mg Capsule, Delayed Release(E.C.) daily. ??? atorvastatin (LIPITOR) 20 mg tablet Take [...] by mouth daily . ) 180 Capsule 1 ??? DULoxetine (CYMBALTA) 60 [...] Right 06/12/2016 ??? HX SKIN BIOPSY ??? [place] COLONOSCOPY FLX DX W/COLLJ SPEC WHEN PFRMD N/A 03/15/2015 COLONOSCOPY performed by Osei Sutton MD at [facility] ??? NH ESOPHAGOGASTRODUODENOSCOPY TRANSORAL DIAGNOSTIC N/A 01/21/2017 ESOPHAGOGASTRODUODENOSCOPY performed by Elizabeth Mcbride MD at [facility] OR ??? [place] LAP, ORLY RESTRICT PROC, LONGITUDINAL GASTRECTOMY N/A 01/21/2017 GASTRECTOMY LONGITUDINAL LAPAROSCOPIC performed by Elizabeth Mcbride MD at [facility] OR Family History Problem Relation Age [...] the patient: Review of Systems - General ROS: LARGE WT LOSS from surgery Psychological ROS: positive for - anxiety--family stress [...] skin lesions--with hair loss Exam/Objective: BP 120/80 Ht 5' 5.5 (1.664 m) Wt 101.2 kg (223 lb) BMI 36.54 kg/m?? General appearance: over wt [...] or generalized lymphadenopathy. Neck Ext no edema Right knee pain rom Mood stable Assessment and Plan: ASSESSMENT: ICD-10-CM ICD-9-CM 1. Recurrent major depressive disorder, in partial remission F33.41 296.35 2. Other specified hypothyroidism E03.8 244.8 3. Chronic pain of right knee M25.561 719.46 URIC ACID G89.29 338.29 URIC ACID 4. Hair loss L65.9 704.00 5. Other sleep apnea G47.39 327.29 6. Fibromyalgia M79.7 729.1 Knee pian fu ortho lilibeth, check uric acid Cont diet Thyroid adjust med Hair loss ok, bioitin rogaine BMI PLAN OF CARE Normal BMI ranges: 18-64 yrs: > or = 18.5 and < 25 65 yrs and older: > or = 23 and < 30 Body mass index is 36.54 kg/m??. Abnormal high BMI: patient counseled on lifestyle modifications including weight loss and daily exercise. Weight management options discussed. Gluc stable recheck lab rls still feels need med cholcont med await lab lft better, await lab Cont b12, vit d reviewed lab Ok cataract Obesity cont wt loss PLAN: Orders Placed This Encounter ??? URIC ACID (Chemistry) Appropriate medications prescribed Appropriate patient instructions provided Follow-up as I have indicated. Medications and options explained to include common side effects. Understanding of medications, course, diagnosis, and expectations were expressed by patient/guardian. CLEANER documented in this encounter Plan of Treatment Upcoming Encounters Date Type Department Care Team (Late st Contact Info) Description 07/27/2024 9:40 AM CDT Office Visit [facility] Primary Care [place] [address] [place] [address] Eldon Koehler MD [address] [place] [address] [address] [place] [phone] Scheduled Orders Name Type Priority Associated Diagnoses Orde r Schedule URIC ACID Lab Routine Chronic pain of right knee Expected: 06/12/2017, Expires: 06/12/2018 documented as of this encounter Visit Diagnoses Diagnosis Recurrent major depressive disorder, in partial remission- Primary Other specified hypothyroidism Chronic pain of right knee Hair loss Alopecia, unspecified Other sleep apnea Fibromyalgia Mylagia and myositis, unspecified Obesity (BMI 35.0-39.9 without comorbidity) Obesity, unspecified documented in this encounter Care Teams Sprinkler Tender Relationship Specialty Start Date End Date Eldon Koehler MD PCP - General 10/06/07 documented as of this encounter
--- OUTSIDE RECORDS SUMMARY | 2024-05-22 17:01 | XMS_ITS | Encounter Summary ---
Author Organization [facility] Address [address] [place] [address] Care Team Providers Care Group Exercise Class Instructor Name Role Phone Eldon Koehler MD Primary Care Provider Reason for Visit * Reason Onset Date Comments diet questions 01/28/2017 Encounter Details Date Type Department Care Team (Late st Contact Info) Description 01/28/2017 Telephone [facility] [address] [address] Beth Weller, RD [address] [place] [phone] diet questions Social History Tobacco Use Types Packs/Day Years [...] encounter Miscellaneous Notes * Telephone Encounter - Beth Weller, RD - 01/28/2017 9:31 AM CDT Pt 1 week s/p lap sleeve gastrectomy. Called to discuss her current intake. States she becomes ill when she consumes artificial sweeteners and afraid she is not consuming enough nutrition. Upon discussion, pt denies vomiting, nausea or pain with sweeteners and more so describes gagging on foodsthat contain the artifical sweeteners (puddings, popsicies, zero-calorie beverages). Per recall, ptstates she is consuming around 4 oz of water every other hour and at least 2 protein shakes/day. She is also consuming very thin cream of wheat and fortifying soups with unflavored protein powder. Assured pt she is likely meeting her fluid and protein needs at this point. Encouraged her to focusingon consuming at least 48-64 oz fluid and 60-80 grams protein each day. Reminded her to not advance until she sees Dr. Gomez for follow up. Pt expressed gratitude at the end of phone call. documented in this encounter Plan of Treatment Upcoming Encounters Date Type Department Care Team (Late st Contact Info) Description 07/27/2024 9:40 AM CDT Office Visit [facility] Primary Care [place] [address] [place] [phone] Eldon Koehler MD [address] [place] [address] documented as of this encounter Visit Diagnoses Not on filedocumented in this encounter Care Teams Group Exercise Class Instructor Relationship Specialty Start Date End Date Eldon Koehler MD PCP - General 10/06/07 documented as of this encounter
--- OUTSIDE RECORDS SUMMARY | 2024-05-22 17:01 | XMS_ITS | Encounter Summary ---
Author Organization [facility] Address [address] [place] [address] Care Team Providers Care Online Communications Specialist Name Role Phone Eldon Koehler MD Primary Care Provider [phone] Reason for Visit * Reason Comments Medication Refill Encounter Details Date Type Department Care Team (Late Contact Info) Description 10/15/2017 Refill [facility] Internal Medicine [address] [phone] Delmis Akhtar, [address] [address] Social History Tobacco Use Types [...] * Telephone Encounter - Pearl Black - 10/15/2017 9:34 AM CDT EMILY 06/12/17 No future visit documented in this encounter Plan of Treatment Upcoming Encounters Date Type Department Care Team (Late st Contact Info) Description 07/27/2024 9:40 AM CDT Office Visit [facility] Primary Care [address] [place] [phone] Eldon Koehler MD [address] [place] [address] [address] [place] [phone] documented as of this encounter Visit Diagnoses Not on filedocumented in this encounter Care Teams Online Communications Specialist Relationship Specialty Start Date End Date Eldon Koehler MD PCP - General 10/06/07 documented as of this encounter
--- OUTSIDE RECORDS SUMMARY | 2024-05-22 17:01 | XMS_ITS | Encounter Summary ---
Author Organization [facility] Address [address] [place] [address] Care Team Providers Care Warehouse Driver Name Role Phone Eldon Koehler MD Primary Care Provider Encounter Details Date Type Department Care Team (Late st Contact Info) Description 10/20/2017 Abstract [facility] Internal Medicine [address] [phone] Eldon Koehler MD [address] [place] [address] [address] [place] [address] Social History Tobacco Use Types [...] Office Visit [facility] Primary Care [address] [place] [address] Eldon Koehler MD [address] [place] [address] [address] [place] [address] documented as of this encounter Visit Diagnoses Not on filedocumented in this encounter Care Teams Warehouse Driver Relationship Specialty Start Date End Date Eldon Koehler MD PCP - General 10/06/07 documented as of this encounter
--- OUTSIDE RECORDS SUMMARY | 2024-05-22 17:01 | XMS_ITS | Encounter Summary ---
Author Organization [facility] Address [address] [place] [address] Care Team Providers Care Communications Technologist Name Role Phone Eldon Koehler MD Primary Care Provider [phone] Reason for Visit * Auth/Cert Specialty Diagnoses / Procedures Referred By Carmen t Referred To Contact General Surgery Diagnoses Adult BMI 45.0-49.9 kg/sq m Adult BMI 45.0-49.9 kg/sq m [Z68.42] Procedures MA LAP, ORLY RESTRICT PROC, LONGITUDINAL GASTRECTOMY GASTRECTOMY LONGITUDINAL LAPAROSCOPIC [facility] Operating Room [address] [place] [address] Referral ID Status Reason Start Date Expiration Date Visits Re quested Visits Authorized [id number] 1 1 Encounter Details Date Type Department Care Team (Late st Contact Info) Description 01/21/2017 8:15 AM CDT Anesthesia Event [facility] Operating Room [address] [place] [address] Daniel Villela MD NO ADDRESS ON FILE Melisa Chen CRNA NO ADDRESS ON FILE Anesthesia Record Procedure Summary Procedure Name Responsible Anesthesiologist Anesthesia Start Time Anesthesia Stop Time GASTRECTOMY LONGITUDINAL LAPAROSCOPIC (Abdomen) Daniel Villela MD 01/21/17 0815 01/21/17 0944 Events Date Time Event Comment 01/21/2017 0755 0815 AN Equip Check Anesthesia eq uipment and materials checked in accordance with local policy. 0815 An Start 0815 An Start Data 0823 Pre-Induction Immediate pre- induction anesthetic assessment performed. Vital signs as noted on graphic. 0824 An Induction 0826 An Intubation 0840 Anesthesia Ready 0932 An Extubation Emergence unev entful Awake, spontaneous respirations. Adequate muscle strength demonstrated Adequate tidal volume. Orapharynx suctioned. Extubated with positive pressure ventilation. 0933 an stop data 0944 An Stop Meds Name Total fentaNYL (SUBLIMAZE) PF 50??mcg/mL injec tion 150 mcg lidocaine PF (XYLOCAINE MPF) 2% injectio n 5 mL propofol (DIPRIVAN) 10??mg/mL injection 200 mg rocuronium (ZEMURON) 10mg/mL injection 6 0 mg dexamethasone (DECADRON) 4 mg/mL injecti on 8 mg ondansetron (ZOFRAN) 4??mg/2 mL injectio n 4 mg glycopyrrolate (ROBINUL) 0.2 mg/mL injec tion 0.8 mg neostigmine (BLOXIVERZ) 1 mg/mL injectio n 4 mg HYDROmorphone (DILAUDID) 1 mg/mL injecti on 0.5 mg lactated Ringers solution 1,000 mL * Agents Name Air Sevoflurane % Sevoflurane O2 Inspired O2 N2O Inspired N2O O2 * Blood No blood administrations on file. Lines, Drains, and Airways Type Details Placement Removal Peripheral IV Pre-Hospital Start: No; Orientation: Right; Location: Wrist; Device: Angiocath; Gauge: 20 gauge; Insertion Attempts: 1; Patient Tolerance: tolerated well; Pain Prevention: intradermal injection 01/21/17 0733 by Lyla Ross RN 08/08/20 1150 by Eliza Menjivar, BENEDICT Endotracheal Airway Type: ETT; Cuff Pres sure: cuff inflated, minimal occluding volume; Size: 7; Site: mouth; Attempts: 2; FOV: III (+posterior aryepiglottic folds); cm: 21; Device: Curved Blade, Bougie; Blade: 3; Secured: secured with tape; Cricoid: Yes; Verification: Auscultated bilateral breath sounds, Equal chest movement, Continuous waveform capnography 01/21/17 0826 by Melisa Chen CRNA 01/21/17 0932 by Melisa Chen CRNA Adult Incision 01/21/17; 0844; surg ical incision; abdomen; 01/23/17; 0430 01/21/17 0844 by Adri Roman RN 01/23/17 0430 by PROVIDER, DISCHARGE PATIENT Drain Present on Admission : No; Tube Number: #1; Orientation: Right:; Location: abdomen; Type: [place] 01/21/17 0923 by Adri Roman RN 08/08/20 1150 by Eliza Menjivar RN documented in this encounter Social History [...] on file documented as of this encounter OR Notes * Anesthesia Postprocedure Evaluation - Daniel Villela MD - 01/21/2017 1:26 PM CDT Post Anesthesia Evaluation Vitals: BP (!) 152/74 Pulse (!) 101 Temp 36.4 ??C (Axillary) Resp 12 Ht 5' 6 (1.676 m) Wt 133.8 kg (295 lb) SpO2 92% BMI 47.61 kg/m2 Pain Rating: Pain Rating: Rest: 4 (01/21/17 1114) Pain Rating: Activity: 6 (01/21/17 1041) Nausea/Vomiting: no nausea and no vomiting Post-Op hydration: well hydrated Respiratory function: no respiratory symptoms Airway patency: normal Cardiovascular function: Normal - Regular rate and rhythm Mental status, LOC: 0=alert; keenly responsive Patient participated in evaluation: yes Unanticipated Events: no Daniel Villela MD * Anesthesia Handoff - Melisa Chen CRNA - 01/21/2017 9:43 AM CDT Post-Anesthetic transfer of care report elements [...] 6. Set expectations for post-procedure period 7. Allowed opportunity for questions and acknowledgement of understanding. Vital Signs: BP: 164/68 (01/21/2017 9:40 AM) Pulse: 108 (01/21/2017 9:40 AM) Temp: 36.1 ??C (01/21/2017 9:40 AM) Resp: 14 (01/21/2017 9:40 AM) SpO2: 100 % (01/21/2017 9:40 AM) 9:44 AM Melisa Chen CRNA * Anesthesia Preprocedure Evaluation - Daniel Villela MD - 01/21/2017 7:52 AM CDT Anesthesia Evaluation Patient summary reviewed and Nursing notes reviewed Airway Mallampati: II TM distance: >3 FB Neck ROM: full Dental - normal exam Pulmonary - normal exam (+) asthma, sleep apnea on CPAP, Cardiovascular - normal exam (+) hypertension well controlled, ECG reviewed ROS comment: EKG: NSR LAD Possible LAE [...] normal. Systolic function was normal. Neuro/Psych (+) neuromuscular disease (meralgia parathetica), headaches, psychiatric history (depression) GI/Hepatic/Renal (+) GERD well controlled, Endo/Other (+) hypothyroidism, arthritis (shoulder pain) Abdominal (+) obese, Anesthesia History History of PONV. Anesthesia Plan ASA 2 General Intravenous induction Oral ETT airway maintenance NPO status > 8 hours Anesthetic plan and risks discussed with Patient and Spouse. Use of blood products: consented to blood products. Plan discussed with Nurse Mobile Ui Developer and Surgeon. Post-op Pain Control Plan to use IV or IM medication and Per surgeon for post-op pain control. Plan for postoperative opioid use documented in this encounter Plan of Treatment Upcoming Encounters Date Type Department Care Team (Late st Contact Info) Description 07/27/2024 9:40 AM CDT Office Visit [facility] Care [facility] [address] [facility] [address] [place] [address] Eldon Koehler MD [address] [facility] [address] [place] [address] documented as of this encounter Visit Diagnoses Not on filedocumented in this encounter Administered Medications Inactive Administered Medications - up to 3 most recent administrations Medication Order MAR Action Action Date Dose Rate Site dexamethasone (DECADRON) injection INTRA-PROCEDURE PRN, Starting on Fri01/21/17 at 0829, Until Fri01/21/17 at 0944, Routine, Anesthesia Intra-op Given 01/21/2017 8:29 AM CDT 8 mg fentaNYL PF (SUBLIMAZE) 50 mcg/mL injection INTRA-PROCEDURE PRN, Starting on Fri01/21/17 at 0817, Until Fri01/21/17 at 0944, Pain (See admin instructions), Routine, Anesthesia Intra-op Given 01/21/2017 8:43 AM CDT 50 mcg Given 01/21/2017 8:17 AM CDT 100 mcg glycopyrrolate (ROBINUL) injection INTRA-PROCEDURE PRN, Starting on Fri01/21/17 at 0922, Until Fri01/21/17 at 0944, Routine, Anesthesia Intra-op Given 01/21/2017 9:22 AM CDT 0.8 mg HYDROmorphone (DILAUDID) injection INTRA-PROCEDURE PRN, Starting on Fri01/21/17 at 0856, Until Fri01/21/17 at 0944, Routine, Anesthesia Intra-op Given 01/21/2017 8:56 AM CDT 0.5 mg lactated Ringers solution IV, at 125 mL/hr, PRE-PROCEDURE CONTINUOUS, Starting on Fri01/21/17 at 0700, Until Fri01/21/17 at 1159, Routine, Give on liter bolus of LR on arrival to preop, Pre-op New Bag 01/21/2017 9:25 AM CDT New Bag 01/21/2017 8:13 AM CDT lidocaine PF 2 % (XYLOCAINE MPF) injection INTRA-PROCEDURE PRN, Starting on Fri01/21/17 at 0824, Until Fri01/21/17 at 0944, Other (See Comment), Routine, Anesthesia Intra-op Given 01/21/2017 8:24 AM CDT 5 mL neostigmine (BLOXIVERZ) 1 mg/mL injection INTRA-PROCEDURE PRN, Starting on Fri01/21/17 at 0922, Until Fri01/21/17 at 0944, Routine, Anesthesia Intra-op Given 01/21/2017 9:22 AM CDT 4 mg ondansetron (ZOFRAN) 4 mg/2 mL injection INTRA-PROCEDURE PRN, Starting on Fri01/21/17 at 0922, Until Fri01/21/17 at 0944, Nausea/Emesis, Routine, Anesthesia Intra-op Given 01/21/2017 9:22 AM CDT 4 mg propofol (DIPRIVAN) injection INTRA-PROCEDURE PRN, Starting on Fri01/21/17 at 0824, Until Fri01/21/17 at 0944, Anesthesia Intra-op Given 01/21/2017 8:24 AM CDT 200 mg rocuronium (ZEMURON) injection INTRA-PROCEDURE PRN, Starting on Fri01/21/17 at 0824, Until Fri01/21/17 at 0944, Routine, Anesthesia Intra-op Given 01/21/2017 8:50 AM CDT 10 mg Given 01/21/2017 8:24 AM CDT 50 mg documented in this encounter Care Teams Communications Technologist Relationship Specialty Start Date End Date Eldon Koehler MD PCP - General 10/06/07 documented as of this encounter
--- OUTSIDE RECORDS SUMMARY | 2024-05-22 17:01 | XMS_ITS | Encounter Summary ---
Author Organization [facility] Address [address] [place] [address] Care Team Providers Care Chief Marketing Officer Name Role Phone Eldon Koehler MD Primary Care Provider [phone] Reason for Visit * Reason Onset Date Comments Canceled Order 11/13/2017 cancel appt Encounter Details Date Type Department Care Team (Late st Contact Info) Description 11/13/2017 Telephone [facility] Surgical Specialists - [address] [facility] [address] [place] [address] Elizabeth Mcbride MD [address] [place] [address] [address] [place] [address] Canceled Order (cancel appt) Social History Tobacco Use Types Packs/Day [...] * Telephone Encounter - Chi Roca - 11/13/2017 9:13 AM CDT Patient had chosen option to cancel appointment today via televox system. Called patient to offer to reschedule. No answer. Left message for patient to call office. documented in this encounter Plan of Treatment Upcoming Encounters Date Type Department Care Team (Late st Contact Info) Description 07/27/2024 9:40 AM CDT Office Visit [facility] Primary Care [address] [place] [address] Eldon Koehler MD [address] [place] [address] [address] [place] [address] documented as of this encounter Visit Diagnoses Not on filedocumented in this encounter Care Teams Chief Marketing Officer Relationship Specialty Start Date End Date Eldon Koehler MD PCP - General 10/06/07 documented as of this encounter
--- OUTSIDE RECORDS SUMMARY | 2024-05-22 17:01 | XMS_ITS | Encounter Summary ---
Author Organization [facility] Address [address] [place] [address] Care Team Providers Care Construction Trades Contractor Name Role Phone Eldon Koehler MD Primary Care Provider [phone] Encounter Details Date Type Department Care Team (Late st Contact Info) Description 05/07/2017 Orders Only [facility] Internal Medicine [address] [address] Provider, Abstract NO ADDRESS ON FILE Social [...] Visit [facility] Primary Care [address] [place] [address] Eldon Koehler MD [address] [place] [address] [address] [place] [address] documented as of this encounter Procedures Procedure Name Priority Date/Time Associated Diagnosis Comments EYE EXAM Routine 05/02/2017 documented in this encounter Results * (ABNORMAL) EYE EXAM (05/02/2017) Abstract Provider OPHTH OTHER EXTERNAL LAB documented in this encounter Visit Diagnoses Not on filedocumented in this encounter Care Teams Construction Trades Contractor Relationship Specialty Start Date End Date Eldon Koehler MD PCP - General 10/06/07 documented as of this encounter
--- OUTSIDE RECORDS SUMMARY | 2024-05-22 17:01 | XMS_ITS | Encounter Summary ---
Author Organization [email or web address] Address [address] [place] [address] Care Team Providers Care Heel Padder Name Role Phone Eldon Koehler MD Primary Care Provider [phone] Reason for Visit * Eval and Treat (Routine) - Closed Specialty Diagnoses / Procedures Referred By Contac t Referred To Contact Diagnoses Morbid obesity due to excess calories Body mass index 40.0-44.9, adult Diastolic dysfunction Other hyperlipidemia Impaired fasting glucose Gastroesophageal reflux disease without esophagitis Chronic low back pain with sciatica, sciatica laterality unspecified, unspecified back pain laterality Fibromyalgia Acquired hypothyroidism Recurrent major depression in partial remission Restless legs Elizabeth Mcbride MD [address] [address] Iliana Melo, RD [address] [place] [address] Referral ID Status Reason Start Date Expiration Date V isits Requested Visits Authorized [id number] Closed CRS To Schedule (STL) 09/02/2016 09/03/2017 2 2 Encounter Details Date Type Department Care Team (Latest Contact Info) Description 09/26/2016 9:30 AM CDT - 09/26/2016 11:59 PM CDT Hospital Encounter [facility] [place] [address] [facility] [address] [place] [address] Elizabeth Mcbride MD [address] [place] [address] Discharge Disposition: Home or Self Care [...] - Inhaled Oxygen Concentration - - Weight 134 kg (295 lb 6 oz) 09/26/2016 2:43 PM C DT Height 166.4 cm (5' 5.5 ) 09/26/2016 2:43 PM CDT Body Mass Index 48.41 09/26/2016 2:43 PM CDT documented in this encounter Medications at Time of Discharge Medication Sig Dispensed Refills Start Date End Date pregabalin (LYRICA) 50 mg CapsuleIndications:Fi bromyalgia Take [...] mouth daily. 90 Tablet 3 08/15/2016 10/15/2017 rOPINIRole (REQUIP) 2 mg Tablet Take 1 tablet by mouth daily at bedtime 90 Tablet 1 06/27/2016 11/15/2016 celecoxib (CeleBREX) 200 mg capsule Take 1 capsule by mouth two times daily 180 Capsule 1 06/27/2016 11/15/2016 albuterol HFA 90 mcg inhalerIndications:RT I (respiratory [...] Progress Notes * Iliana Melo, RD - 09/26/2016 2:43 PM CDT NUTRITION CONSULTATION (INITIAL) [facility] Winifred Rodriguez is a 66 y.o. female who met with me after a referral from the bariatric surgeon. Pt is seeking sleeve bariatric surgery/procedure at this time. This is the first of 2 visits Height: 5' 5.5 (166.4 cm) (09/26/16 1443) Weight: 134 kg (295 lb 6 oz) (09/26/16 1443) Body mass index is 48.41 kg/(m^2). Lowest adult weight/age: 135 lb/25 yo Highest weight/age: 316 lb/ 54 yo Post procedure weight goals: 180 lb Diagnosis: E66.01, V85.41, E78.4, R73.01 Past Medical History: Diagnosis Date ??? Arthropathy, [...] Right 2017 ??? HX SKIN BIOPSY ??? [place] COLONOSCOPY FLX DX W/COLLJ SPEC WHEN PFRMD N/A 03/15/2015 COLONOSCOPY performed by Osei Sutton MD at [facility] GI LAB Pertinent Medications: has a current medication list which includes the following prescription(s): pregabalin, duloxetine, atorvastatin, omeprazole, levothyroxine, ropinirole, celecoxib, albuterol sulfate, montelukast, cyanocobalamin, and cholecalciferol (vitamin d3). Lab Results Component Value Date/Time NA 143 05/22/2016 07:45 AM K 4.2 05/22/2016 07:45 AM CL 104 05/22/2016 07:45 AM CO2 32 (H) 05/22/2016 07:45 AM CA 9.5 05/22/2016 07:45 AM BUN 11 05/22/2016 07:45 AM CREAT 0.74 05/22/2016 07:45 AM GLUCOSE 97 05/22/2016 07:45 AM ANIONGAP 12 08/14/2015 03:10 PM BCRATIO NOT APPLICABLE 05/22/2016 07:45 AM Lab Results Component Value Date/Time CHOLTOT 185 05/23/2015 12:01 PM HDL 47 05/23/2015 12:01 PM LDLCALC 100 (H) 05/23/2015 12:01 PM TRIGLYCERIDE 190 (H) 05/23/2015 12:01 PM Lab Results Component Value Date/Time HGBA1C 6.0 05/23/2015 12:01 PM Diet: Usually eats 3 meals and 2 snacks a day. She states she has tried weight watchers and would loose weight but would burn out and stop. She lives with , daughter, and 2 grandchildren. She statesshe will eat chocolate as comfort food. She also states she is a picky eater and is limited on vegetables she will eat. She does like Premier protein shakes and KIND bars. In the past she lost 49 lb by eating 1/2 of her normal portions. She moved and stress of move disrupted her eating habits and she gained it back. She feels she will be able to stay on track after surgery by working through process of changing eating habits prior to surgery. Intake: Fruits and vegetables low Dairy products low Protein moderate Carbohydrate high Fat and calories high Portions sizes moderate Sweetened beverages -type/amount no -0oz/day gave up in July Dining out -restaurants 2 times/week at [employer], [employer], sub type - [employer] 24-hour recall Breakfast: yogurt/granola Snack: protein shake Lunch: cheese and crackers, apple Snack: popcorn or protein shake or protein bar Dinner: meat, starch, salad, water Snack: none Binge or Other Disordered Eating Disordered eating: no Mental health issues: no Frequent cravings: no Emotional eating: no Environmental Issues Affecting Weight Occupation-related eating issues: no Travel: no Household issues (familly/obligations/schedule):stress - daughter in college, grandchildren don't listen to direction Shopping/cooking/etc: no Meals eaten away from home (frequency/location): due to grandchildren, rarely eat away from home - bring in food 2 x week - pizza night on Fridays Exercise and Activity Types and frequency: limited - did get fitbit to track steps and is up to 6000 from 3000 Lifestyle activity: sedentary Limitations to activity: knees - have been replaced but still cause problems; torn rotator cuff - had surgery, fell and will need more surgery Support Structure (support persons and where they can assist) and daughter - they are both willing to make changes to help her with food choices Assessment\Plan -Has realistic expectations for weight loss: yes -Verbalizes understanding of dietary changes post procedure: yes -Verbalizes understanding of dietary changes: yes -Verbalizes willingness to participate in physical activity: yes as much as she can physically -Motivation for change: high -RD's prediction for client success and compliance: good if she continues to be able to focus of what she needs - needs to keep food log Winifred has many things going on a home that can cause a distraction. She is motivated to stay focus in order to have a better lifestyle. Stressed the importance of food log to help her see what she is doing, what 1200 calories looks like, and to meet protein needs of 60-80 gm per day. She drinks HINTwater - at least 3-4 16 oz bottles per day. Discussed nutritional expectations pre and post bariatric surgery. Stressed the importance of healthy diet and benefits of physical activity. Encouraged healthy lifestyle and eating behaviors. Discussed patient's present dietary habits and set goals to aid in pre and post surgery weight loss. Reviewed nutrition Expectations from Complete Nutrition Guide for Bariatric Surgery Exercise 1) exercise Food 1) eat a healthy breakfast 2) eat all foods groups: fruits, vegetables, whole grains, lean protien, and low-fat dairy 3) limit or eliminate simple sugars and high fat foods 4) eat 3-4 meals a day 5) drink 48-64oz of sugar-free, alcohol free, decaffeinated, and carbonated fluids. 6) eliminate caffeine - drinks 1 c. Coffee 2 x week 7) practice taking very small bites/sips of foods and beverages 8) chew food thoroughly 9) take at least 20-30 minutes to eat a meal 10) stop eating when satisfied 11) always eat protein first 12) do not drink 10-15 mins before or 30-60 mins after eating 13) read food labels Food log 1) keep food log Other 1) try protein powders and/or supplements - has completed and has ones she likes 2) use support system Pt Specific Goals 1) Keep food log 2) Practice sipping drinks and chewing foods to applesauce texture 3) Use smaller plate 4) practice not drinking with meals 5) increase fruit and vegetable intake 6) get chewable multivitamin 7) avoid carbonated drinks 8)Exercise - count steps and use stationary bike Materials given: Reviewed Complete Nutrition Guide for Bariatric Surgery, readiness checklist Time spent with pt: 60 min Follow up appointment: October 24 Thank you for allowing me to participate in care of this patient! documented in this encounter Plan of Treatment Upcoming Encounters Date Type Department Care Team (Late st Contact Info) Description 07/27/2024 9:40 AM CDT Office Visit [facility] Primary Care [address] Eldon Koehler MD [address] [place], [place] [phone] Scheduled Referrals Name Type Priority Associated Diagnoses Orde r Schedule AMB REFERRAL TO NUTRITION Outpatient Referral Routine Morbid obesity due to excess calories Body mass index 40.0-44.9, adult Diastolic dysfunction Other hyperlipidemia Impaired fasting glucose Gastroesophageal reflux disease without esophagitis Chronic low back pain with sciatica, sciatica laterality unspecified, unspecified back pain laterality Fibromyalgia Acquired hypothyroidism Recurrent major depression in partial remission Restless legs Ordered: 09/02/2016 documented as of this encounter Visit Diagnoses Not on filedocumented in this encounter Care Teams Heel Padder Relationship Specialty Start Date End Date Eldon Koehler MD PCP - General 10/06/07 documented as of this encounter
--- OUTSIDE RECORDS SUMMARY | 2024-05-22 17:01 | XMS_ITS | Encounter Summary ---
Author Organization [facility] Address [address] [place] [address] Care Team Providers Care Vp Integrity Name Role Phone Eldon Koehler MD Primary Care Provider [phone] Reason for Visit * Reason Onset Date Comments Prior Authorization needed for Famotidine Suspen nancie 01/20/2017 Encounter Details Date Type Department Care Team (Late st Contact Info) Description 01/20/2017 Telephone [facility] Surgical Specialists - [address] [address] Elizabeth Mcbride MD [address] [place] [address] Prior Authorization needed for Famotidine Suspension Social History Tobacco Use Types Packs/Day Years [...] * Telephone Encounter - Anabella Solorzano - 01/22/2017 8:51 AM CDT Received fax stating Famotidine approved. Pharmacy notified. * Telephone Encounter - Anabella Solorzano - 01/21/2017 2:56 PM CDT Contacted [facility] to check on status of prior authorization. Spoke with Marivel. Additional clinical information given. Per Marivel, will send again for review. * Telephone Encounter - Anabella Solorzano - 01/21/2017 8:58 AM CDT Received a fax form requesting more clinical information. Form completed and faxed. * Telephone Encounter - Anabella Solorzano - 01/20/2017 11:08 AM CDT Patient scheduled for laparoscopic sleeve gastrectomy 01/21/2017. Received fax from [facility] stating Famotidine requires prior authorization. Contacted Rx [facility] . . Spoke with Jeny. Clinical information given over the phone. Per Jeny, will go to clinical review with reference number of [id number]. States the office will receive a fax with decision. documented in this encounter Plan of Treatment Upcoming Encounters Date Type Department Care Team (Late st Contact Info) Description 07/27/2024 9:40 AM CDT Office Visit [facility] Primary Care [address] [place] [address] Eldon Koehler MD [address] [place] [address] [address] [address] [place] [address] documented as of this encounter Visit Diagnoses Not on filedocumented in this encounter Care Teams Vp Integrity Relationship Specialty Start Date End Date Eldon Koehler MD PCP - General 10/06/07 documented as of this encounter
--- OUTSIDE RECORDS SUMMARY | 2024-05-22 17:01 | XMS_ITS | Encounter Summary ---
Author Organization [facility] Address [address] [place] [address] Care Team Providers Care Weblogic Developer Name Role Phone Eldon Koehler MD Primary Care Provider [phone] Reason for Visit * Reason Comments Upper Respiratory Symptoms [place] Eye Sore Throat Encounter Details Date Type Department Care Team (Late st Contact Info) Description 03/07/2017 1:30 PM CDT Office Visit [facility] Internal Medicine [address] [address] Eldon Koehler MD [address] [place] [address] Other acute recurrent sinusitis (Primary Dx); Other conjunctivitis, unspecified laterality Social History Tobacco Use Types Packs/Day Years [...] Reading Time Taken Comments Blood Pressure 130/80 03/07/2017 1:22 PM CDT Pulse - - Temperature 36.8 ??C (98.2 ??F) 03/07/2017 1:22 PM CD T Respiratory Rate - - Oxygen Saturation - - Inhaled Oxygen Concentration - - Weight 111.1 kg (245 lb) 03/07/2017 1:22 PM CDT Height 166.4 cm (5' 5.5 ) 03/07/2017 1:22 PM CDT Body Mass Index 40.15 03/07/2017 1:22 PM CDT documented in this encounter Progress Notes * Eldon Koehler MD - 03/07/2017 1:31 PM CDT [place] eye Sinus kendrick cough prod this week No fever Med reviewed Still losing wt BP 130/80 Temp 98.2 ??F (36.8 ??C) (Oral) Ht 5' 5.5 (1.664 m) Wt 111.1 kg (245 lb) BMI 40.15 kg/m?? General appearance: over wt nad Head: Normocephalic, without obvious abnormality, atraumatic Eyes: conjunctivae/corneas clear Af level tms. Throat: Lips, mucosa, palate, oropharynx with erythema no exudate Neck: supple, symmetrical, trachea midline, no lymphadenopathy, [...] ASSESSMENT: Encounter Diagnoses Name Primary? Other acute recurrent sinusitis Yes ??? Other conjunctivitis, unspecified laterality Restart inhaler PLAN: Orders Placed This Encounter ??? azithromycin (ZITHROMAX) 250 mg tablet documented in this encounter Plan of Treatment Upcoming Encounters Date Type Department Care Team (Late st Contact Info) Description 07/27/2024 9:40 AM CDT Office Visit [facility] [address] [place] [address] Eldon Koehler MD [address] [place] [address] documented as of this encounter Visit Diagnoses Diagnosis Other acute recurrent sinusitis- Primary Other conjunctivitis, unspecified laterality documented in this encounter Care Teams Weblogic Developer Relationship Specialty Start Date End Date Eldon Koehler MD PCP - General 10/06/07 documented as of this encounter
--- OUTSIDE RECORDS SUMMARY | 2024-05-22 17:01 | XMS_ITS | Encounter Summary ---
Author Organization [facility] Address [address] [place] [address] Care Team Providers Care Principal Network Architect Name Role Phone Eldon Koehler MD Primary Care Provider [phone] Encounter Details Date Type Department Care Team (Late st Contact Info) Description 05/01/2017 Orders Only [facility] Internal Medicine [address] [address] Provider, Abstract NO ADDRESS ON [...] [facility] [address] [place] [address] Eldon Koehler MD [address] [place] [address] [address] [place] [address] documented as of this encounter Procedures Procedure Name Priority Date/Time Associated Diagnosis Comments US ABDOMEN LIMITED Routine 05/01/2017 documented in this encounter Results * US ABDOMEN LIMITED (05/01/2017) Anatomical Region Laterality Modality Abdomen Other Abstract Provider US ORDERABLES documented in this encounter Visit Diagnoses Not on filedocumented in this encounter Care Teams Principal Network Architect Relationship Specialty Start Date End Date Eldon Koehler MD PCP - General 10/06/07 documented as of this encounter
--- OUTSIDE RECORDS SUMMARY | 2024-05-22 17:01 | XMS_ITS | Encounter Summary ---
Author Organization [facility] Address [address] [place] [address] Care Team Providers Care Supply Specialist Name Role Phone Eldon Koehler MD Primary Care Provider [phone] Reason for Visit * Reason Onset Date Comments post-op diet coaching 12/03/2017 Encounter Details Date Type Department Care Team (Late st Contact Info) Description 12/03/[address] [address] Beth Weller, RD [address] [place] [phone] post-op diet coaching Social History Tobacco Use Types Packs/Day Years [...] Telephone Encounter - Beth Weller, RD - 12/03/2017 9:37 AM CDT Called pt to check in. Pt s/p sleeve gastrectomy 01/21/17. Per discussion, sounds as if patient has had a very successful wt loss journey thus far. She has lost 80 lb, is more active and seems to be adhering to nutrition guideline quite well. She reports she was started on phentermine 2 months ago which helped her break a wt stall and has continued to lose wt. She has not been keep a food record because of time. She is caring her her 3 grand children (holding the 6 month old while on the phone) Mon- while her daughter attends nursing school. States she is over whelmed with life but seems to still make her health a priority. Praised pt for this. States she continues to see her therapist as well. Reviewed bariatric diet guidelines and encouraged pt to keep a food journal to help stay on track. Suggested various mobile apps for convenience as pt uses her phone and tablet throughout the day. Currently, the pt does not have much time to exercise. She does have a plan when the 2 oldest kids go back to school. Plans to walk in the morning while pushing youngest in the stroller. Praised pt for plan and highly encouraged to implement into lifestyle. Discussed importance of exercise and it's role in wt loss and wt loss maintenance. Overall, pt is very happy with her progress and expressed sheis grateful she can now care for her grand kids as she wouldn't have been able to do this a year ago. Goals: 1) Document intake using mobile bao, aim for 1408-0211 calories/day 2) Continue to eat protien-rich foods aiming for goal of 70-80 grams/day 3) Incorporate exercise (walking) into daily routine 4) Continue to take all necessary vit/min rec post-WLS Encouraged pt to call with dietary questions without hesitation. ----- Message from Elizabeth Gomez MD sent at 11/28/2017 8:42 AM CDT ----- Regarding: needs a phone call She would like a phone call for diet guidance Thanks! documented in this encounter Plan of Treatment Upcoming Encounters Date Type Department Care Team (Late st Contact Info) Description 07/27/2024 9:40 AM CDT Office Visit [facility] Primary Care [address] [place] [address] Eldon Koehler MD [address] [place] [address] [place] [address] [place] [address] documented as of this encounter Visit Diagnoses Not on filedocumented in this encounter Care Teams Supply Specialist Relationship Specialty Start Date End Date Eldon Koehler MD PCP - General 10/06/07 documented as of this encounter
--- OUTSIDE RECORDS SUMMARY | 2024-05-22 17:01 | XMS_ITS | Encounter Summary ---
Author Organization [facility] Address [address] [place] [address] Care Team Providers Care Precision Assembly Inspector Name Role Phone Eldon Koehler MD Primary Care Provider Reason for Visit * Reason Onset Date Comments other 12/02/2016 Encounter Details Date Type Department Care Team (Late st Contact Info) Description 12/02/2016 Telephone [facility] - [place] [address] [facility] [address] [place] [address] Eveline Orellana RN other Social History [...] Telephone Encounter - Eveline Rebollar RN - 12/02/2016 12:16 PM CDT Returned phone call to patient. She is requesting that her lab orders be faxed to [facility] in [place], [place]. I have done this for her. She spoke to her therapist and she is currently composing a clearance letter for her and will be faxing it to me, Winifred has provided her with our fax number. She will get her lab work done. She will call with any other questions or concerns. Eveline Rebollar RN Media Librarian documented in this encounter Plan of Treatment Upcoming Encounters Date Type Department Care Team (Late st Contact Info) Description 07/27/2024 9:40 AM CDT Office Visit [facility] Primary Care [address] [place] [address] Eldon Koehler MD [address] [place] [address] [address] [place] [address] documented as of this encounter Visit Diagnoses Not on filedocumented in this encounter Care Teams Precision Assembly Inspector Relationship Specialty Start Date End Date Eldon Koehler MD PCP - General 10/06/07 documented as of this encounter
--- OUTSIDE RECORDS SUMMARY | 2024-05-22 17:01 | XMS_ITS | Encounter Summary ---
Author Organization [facility] Address [address] [place] [address] Care Team Providers Care Signalling And Communications Engineer Name Role Phone Eldon Koehler MD Primary Care Provider [phone] Reason for Visit * Reason Onset Date Comments pre-op call 01/16/2017 Encounter Details Date Type Department Care Team (Late st Contact Info) Description 01/16/[address] [address] Beth Weller, RD [address] [place] [address] pre-op call Social History Tobacco Use Types Packs/Day Years [...] Notes * Telephone Encounter - Beth Weller, KAREEN - 01/16/2017 2:39 PM CDT Called pt to provide encouragement and review nutrition expectations pre-and post-surgery. Sleeve gastrectomy scheduled on 01/21/17. Pt currently consumin Premier shakes, light kenyan yogurt, SF pudding, water, and cream soups daily . Reviewed fluid and protein recommendations. She states she is getting about 48 oz daily but notices her skin stand up when she pinches it on the back of her hand. Discussed she may need to increase fluid intake to at least 64 oz daily. Reviewed phases of the diet post-op and discussed foods allowed/not allowed at each stage. Pt understands to not advance from full-liquid stage until Dr. Gomez's approval. Stressed the importance of adhering to nutrition guidelines and discussed potential risks if pt is non-adherent. Answered all questions accordingly. Ptseems very motivated at this time. Encouraged pt to call without hesitation. documented in this encounter Plan of Treatment Upcoming Encounters Date Type Department Care Team (Late st Contact Info) Description 07/27/2024 9:40 AM CDT Office Visit [facility] [place] [address] Eldon Koehler MD [address] [place], [place] [phone] documented as of this encounter Visit Diagnoses Not on filedocumented in this encounter Care Teams Signalling And Communications Engineer Relationship Specialty Start Date End Date Eldon Koehler MD PCP - General 10/06/07 documented as of this encounter
--- OUTSIDE RECORDS SUMMARY | 2024-05-22 17:01 | XMS_ITS | Encounter Summary ---
Author Organization [facility] Address [address] [place] [address] Care Team Providers Care Marketing Content Manager Name Role Phone Eldon Koehler MD Primary Care Provider [phone] Reason for Visit * Reason Comments Follow Up surgical clearence * Eval and Treat (Routine) - Closed Specialty Diagnoses / Procedures Referred By Carmen t Referred To Contact Cardiovascular Disease / Cardiology Diagnoses Morbid obesity, unspecified obesity type Elizabeth Mcbride MD [address] [facility] [address] [place] [address] Rupert Nguyen MD NO ADDRESS ON FILE Referral ID Status Reason Start Date Expiration Date V isits Requested Visits Authorized [id number] Closed CRS To Schedule (STL) 11/25/2016 11/25/2017 1 1 Encounter Details Date Type Department Care Team (Latest Contact Info) Description 11/28/2016 2:00 PM CDT Office Visit [facility] [address] [facility] [address] [place] [address] Rupert Nguyen MD NO ADDRESS ON FILE Preop cardiovascular exam (Primary Dx) Social History Tobacco Use Types [...] Sign Reading Time Taken Comments Blood Pressure 126/66 11/28/2016 2:07 PM CDT Pulse 99 11/28/2016 2:07 PM CDT Temperature - - Respiratory Rate - - Oxygen Saturation 96% 11/28/2016 2:07 PM CDT Inhaled Oxygen Concentration - - Weight 129.7 kg (286 lb) 11/28/2016 2:07 PM CDT Height 165.1 cm (5' 5 ) 11/28/2016 2:07 PM CDT Body Mass Index 47.59 11/28/2016 2:07 PM CDT documented in this encounter Progress Notes * Rupert Nguyen MD - 11/28/2016 2:24 PM CDT HISTORY OF PRESENT ILLNESS Winifred Daniel Hanyastrid, a 66 y.o. female presents with a Chief Complaint of Follow Up (surgical clearence) Subjective HPI She is going to have a bariatric sleeve surgery. Dr Gomez estimated a potential risk of mortality of 1.5 % She has no chest pain, dyspnea, pedal edema, pnd, orthopnea. She can walk up 2 flights of stairs without stopping. She had a screening of her carotid last July and was told she was clean No one in her family has had heart problems. Patient Active Problem List Diagnosis Date Noted ??? Meralgia paresthetica 05/23/2015 Priority: Low ??? 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 Fibromyalgia 04/19/2014 Priority: Low ??? GERD (gastroesophageal reflux disease) 09/16/2013 Priority: Low ??? Restless leg syndrome 10/04/2007 Priority: Low ??? Impaired fasting glucose 08/03/2007 Priority: Low ??? Unspecified asthma 06/05/2007 Priority: Low ??? Unspecified sleep apnea 06/05/2007 Priority: Low ??? Backache, unspecified 03/02/2007 Priority: Low ??? Headache 12/17/2006 Priority: Low ??? Hypothyroidism 04/19/2005 Priority: Low ??? Osteoarthritis 10/19/2004 Priority: Low ??? Recurrent major depressive disorder, in partial remission 06/08/2003 Priority: Low ??? Hyperlipemia 06/07/2003 Priority: Low Current Outpatient Prescriptions on File Prior to Visit Medication Sig Dispense Refill ??? celecoxib (CeleBREX) 200 mg capsule Take [...] s ??? HX KNEE REPLACEMENT Bilateral 2014, 2016 ??? HX ROTATOR CUFF REPAIR Right 2017 ??? HX SKIN BIOPSY ??? TN COLONOSCOPY FLX DX W/COLLJ SPEC WHEN PFRMD N/A 03/15/2015 COLONOSCOPY performed by Osei Sutton MD at [facility] Family History Problem Relation Age of Onset ??? Colon Cancer Mother ??? Stroke Father ??? Stroke Maternal Grandfather ??? Stroke Paternal Grandfather ??? Kidney Disease Brother ??? Healthy Brother ??? Healthy Brother Social History Substance Use Topics ??? Smoking status: Never Smoker ??? Smokeless tobacco: Never Used ??? Alcohol use Yes Comment: rare REVIEW OF SYSTEMS Review of Systems Constitutional: Negative for unexpected weight change. HENT: Negative for tinnitus. Eyes: Positive for visual disturbance. Respiratory: Positive for shortness of breath. Negative for chest tightness. Cardiovascular: Negative for chest pain, palpitations and leg swelling. Gastrointestinal: Negative for diarrhea, nausea and vomiting. Endocrine: Negative for polydipsia, polyphagia and polyuria. Genitourinary: Negative for dysuria and hematuria. Musculoskeletal: Positive for back pain. Skin: Negative for rash and wound. Allergic/Immunologic: Negative for immunocompromised state. Neurological: Negative for dizziness and syncope. Hematological: Does not bruise/bleed easily. Objective PHYSICAL EXAM BP 126/66 Pulse 99 Ht 5' 5 (1.651 m) Wt 129.7 kg (286 lb) SpO2 96% BMI 47.59 kg/m2 Physical Exam Constitutional: She appears well-developed and well-nourished. Eyes: No scleral icterus. Neck: Trachea normal. Neck supple. No hepatojugular reflux and no JVD present. Carotid bruit is notpresent. Cardiovascular: Normal rate, regular rhythm, S1 normal, S2 normal and normal heart sounds. Exam reveals no S3, no S4 and no friction rub. No murmur heard. Pulses: Carotid pulses are 3+ on the right side, and 3+ on the left side. Dorsalis pedis pulses are 3+ on the right side, and 3+ on the left side. Pulmonary/Chest: Effort normal and breath sounds normal. Abdominal: Soft. Normal appearance and bowel sounds are normal. She exhibits no abdominal bruit. There is no splenomegaly or hepatomegaly. There is no tenderness. Musculoskeletal: Right lower leg: She exhibits no edema. Left lower leg: She exhibits no edema. Neurological: She is alert. Psychiatric: She has a normal mood and affect. EKG NSR LAD Possible LAE Assessment ASSESSMENT and PLAN: ICD-10-CM ICD-9-CM 1. Preop cardiovascular exam Z01.810 V72.81 EKG 12-LEAD There is no evidence of significant cardiac disease that would preclude this operation or put her in high cardiac risk category. May proceed with surgery if so desired. * Adri Roca - 11/28/2016 2:09 PM CDT New pt Surgical clearance documented in this encounter Procedure Notes * Rupert Nguyen MD - 11/28/2016 3:46 PM CDTAssociated Order(s): EKG 12-LEAD Procedure(s): TN ECG ROUTINE ECG W/LEAST 12 LDS W/I&R Pre-Procedure Diagnose(s): Preop cardiovascular exam NSR LAD Possible LAE documented in this encounter Plan of Treatment Upcoming Encounters Date Type Department Care Team (Late st Contact Info) Description 07/27/2024 9:40 AM CDT Office Visit [facility] Care [place] [address] [place] [address] Eldon Koehler MD [address] [place] [address] [address] [place] [address] documented as of this encounter Procedures Procedure Name Priority Date/Time Associated Diagnosis Comments TN ECG ROUTINE ECG W/LEAST 12 LDS W/I&R Routine 11/28/2016 3:47 PM CDT Preop cardiovascular exam documented in this encounter Results * TN ECG ROUTINE ECG W/LEAST 12 LDS W/I&R (11/28/2016 3:47 PM CDT) Narrative [facility] - 11/28/2016 3:47 PM CDT Rupert Nguyen MD ? 11/28/2016 ??3:47 PM NSR LAD Possible LAE Rupert Nguyen MD ECG ORDERABLES [facility] CLIA #[id number] [address] [address] documented in this encounter Visit Diagnoses Diagnosis Preop cardiovascular exam- Primary Pre-operative cardiovascular examination documented in this encounter Care Teams Marketing Content Manager Relationship Specialty Start Date End Date Eldon Koehler MD PCP - General 10/06/07 documented as of this encounter
--- OUTSIDE RECORDS SUMMARY | 2024-05-22 17:01 | XMS_ITS | Encounter Summary ---
Author Organization [facility] Address [address] [place] [address] Care Team Providers Care Button Tufter Name Role Phone Eldon Koehler MD Primary Care Provider [phone] Reason for Visit * Reason Onset Date Comments other 11/25/2016 Encounter Details Date Type Department Care Team (Late st Contact Info) Description 11/25/2016 Telephone [facility] - [place] [address] [facility] [address] [place] [address] Eveline Orellana, RN other Social History [...] encounter Miscellaneous Notes * Addendum Note - Elizabeth Mcbride MD - 11/26/2016 1:10 PM CDTAddended by: ELIZABETH HICKS on: 11/26/2016 01:10 PM Modules accepted: Orders * Telephone Encounter - Elizabeth Mcbride MD - 11/26/2016 1:08 PM CDT Iron ordered. Since timing may have been off (thus her previously withdrawing from the program), I do think the patient should establish w a counselor to give necessary support with the necessary changes * Telephone Encounter - Eveline Rebollar, RN - 11/25/2016 3:14 PM CDT Spoke with patient. She tells me that she wishes to continue with the Bariatric surgery process. I will place the orders that had previously been cancelled. She will need to see Cardiology for evaluation, EKG, Medical clearance from Dr. Koehler, one more appointment with Iliana Melo RD, and labwork. I placed the orders still needed and she will let me know if she needs anything or has questions. Eveline Rebollar RN Placement Specialist documented in this encounter Plan of Treatment Upcoming Encounters Date Type Department Care Team (Late st Contact Info) Description 07/27/2024 9:40 AM CDT Office Visit [facility] Primary Care [address] [place] [address] Eldon Koehler MD [address] [place] [address] [address] [place] [address] documented as of this encounter Results * IRON LEVEL (12/26/2016 12:24 PM CDT) IRON 62 37 - 145 ug/dL 12/26/2016 2:14 PM CDT [facility] Blood Venipuncture / Unknown 12/26/2016 12:24 PM CDT 12/26/2016 12:36 PM CDT Elizabeth Hicks MD CHEMISTRY ORDERA BLES [facility] CLIA# [id number] [address] [place] [address] documented in this encounter Visit Diagnoses Diagnosis Increased BMI- Primary Other symptoms concerning nutrition, metabolism, and development documented in this encounter Care Teams Button Tufter Relationship Specialty Start Date End Date Eldon Koehler MD PCP - General 10/06/07 documented as of this encounter
--- OUTSIDE RECORDS SUMMARY | 2024-05-22 17:01 | XMS_ITS | Encounter Summary ---
Author Organization [facility] Address [address] [place] [address] Care Team Providers Care Casting Associate Name Role Phone Eldon Koehler MD Primary Care Provider [phone] Reason for Visit * Reason Onset Date Comments bariatric surgical ins requirements 09/04/2016 Encounter Details Date Type Department Care Team (Late Contact Info) Description 09/04/2016 Telephone [facility] - [address] [address] Stefanie Mccrary RN bariatric surgical ins requirements Social History Tobacco Use Types Packs/Day Years [...] Telephone Encounter - Stefanie Mccrary RN - 09/04/2016 2:33 PM CDT Called patient to inform what guidelines for [employer] insurance for bariatric surgery. Her insurance follows [facility] medical policy and a 6 month supervised diet is required. Patient understands. documented in this encounter Plan of Treatment Upcoming Encounters Date Type Department Care Team (Late Contact Info) Description 07/27/2024 9:40 AM CDT Office Visit [facility] Primary [facility] [address] [place] [phone] Eldon Koehler MD [address] [place] [address] [place] [phone] documented as of this encounter Visit Diagnoses Not on filedocumented in this encounter Care Teams Casting Associate Relationship Specialty Start Date End Date Eldon Koehler MD PCP - General 10/06/07 documented as of this encounter
--- OUTSIDE RECORDS SUMMARY | 2024-05-22 17:01 | XMS_ITS | Encounter Summary ---
Author Organization [facility] Address [address] [place] [address] Care Team Providers Care Home Care Giver Name Role Phone Eldon Koehler MD Primary Care Provider [phone] Reason for Visit * Reason Onset Date Comments Results 12/12/2016 Encounter Details Date Type Department Care Team (Late Contact Info) Description 12/12/2016 Patient Outreach [facility] - [address] [facility] [address] [place] [address] Elizabeth Mcbride MD [address] [place] [address] [address] [place] [address] Results Social History Tobacco Use Types Packs/Day [...] * Telephone Encounter - Anabella Solorzano - 12/12/2016 1:22 PM CDT Results reviewed per Bariatric Protocol via Dr. Gomez. Lab results normal. Patient notified via [employer]. documented in this encounter Plan of Treatment Upcoming Encounters Date Type Department Care Team (Late st Contact Info) Description 07/27/2024 9:40 AM CDT Office Visit [facility] Primary Care [address] [place] [address] Eldon Koehler MD [address] [place] [address] [address] [place] [address] documented as of this encounter Visit Diagnoses Not on filedocumented in this encounter Care Teams Home Care Giver Relationship Specialty Start Date End Date Eldon Koehler MD PCP - General 10/06/07 documented as of this encounter
--- OUTSIDE RECORDS SUMMARY | 2024-05-22 17:01 | XMS_ITS | Encounter Summary ---
Author Organization [facility] Address [address] [place] [address] Care Team Providers Care Vibratory Pile Driver Name Role Phone Eldon Koehler MD Primary Care Provider [phone] Reason for Visit * Reason Comments Thyroid Disorder (office visit) Osteoarthritis Medication Refill no refill Encounter Details Date Type Department Care Team (Late st Contact Info) Description 03/19/2017 9:30 AM CONTROLLER OPERATIONS AND HR MANAGER Office Visit [facility] Internal Medicine [address] [phone] Eldon Koehler MD [address] [place] [id number] Recurrent major depressive disorder, in partial remission (Primary Dx); Morbid obesity due to excess calories; Other specified hypothyroidism; Fibromyalgia; Abnormal LFTs (liver function tests); Vitamin D deficiency; Vitamin B12 deficiency (non anemic); Other hyperlipidemia; Need for vaccination for Strep pneumoniae Social [...] Reading Time Taken Comments Blood Pressure 130/80 03/19/2017 9:18 AM CONTROLLER OPERATIONS AND HR MANAGER Pulse - - Temperature - - Respiratory Rate - - Oxygen Saturation - - Inhaled Oxygen Concentration - - Weight 110.7 kg (244 lb) 03/19/2017 9:18 AM CONTROLLER OPERATIONS AND HR MANAGER Height 166.4 cm (5' 5.5 ) 03/19/2017 9:18 AM CONTROLLER OPERATIONS AND HR MANAGER Body Mass Index 39.99 03/19/2017 9:18 AM CONTROLLER OPERATIONS AND HR MANAGER documented in this encounter Progress Notes * Eldon Koehler MD - 03/19/2017 9:51 AM CST Subjective: Winifred Rodriguez is a 66 y.o. female. Stress ongoing Inc lft--cause? Left groin pain --strained Fibromyalgia reviewed Gluc stable Chol stable On cpap Med reviewed Recent lab reviewed Patient Active Problem List Diagnosis Date Noted ??? Morbid obesity due to excess calories 01/21/2017 ??? Meralgia paresthetica 05/23/2015 ??? Hyperhidrosis 05/31/2014 [...] by mouth daily. 90 Tablet 3 ??? montelukast (SINGULAIR) 10 mg tablet Take 1 Tab by mouth daily. (Patient taking differently: Take 10 mg by mouth 1 time daily as needed . ) 90 Tab 3 ??? ondansetron (ZOFRAN ODT) 4 mg Tablet, Rapid Dissolve Place 1 Tablet (4 mg) under tongue every 8hours as needed for Nausea/Emesis. 10 Tablet 0 ??? albuterol HFA 90 mcg inhaler Take 2 Puffs by inhalation 4 times daily as needed for Shortness of Breath. 8.5 Gram 5 No current facility-administered medications on file prior [...] Right 06/12/2016 ??? HX SKIN BIOPSY ??? RI COLONOSCOPY FLX DX W/COLLJ SPEC WHEN PFRMD N/A 03/15/2015 COLONOSCOPY performed by Osei Sutton MD at [facility] GI [facility] ??? RI ESOPHAGOGASTRODUODENOSCOPY TRANSORAL DIAGNOSTIC N/A 01/21/2017 ESOPHAGOGASTRODUODENOSCOPY performed by Elizabeth Mcbride MD at [facility] OR ??? RI LAP, ORLY RESTRICT PROC, LONGITUDINAL GASTRECTOMY N/A 01/21/2017 GASTRECTOMY LONGITUDINAL LAPAROSCOPIC performed by Elizabeth Mcbride MD at [facility] OR Family History Problem Relation Age of [...] patient: Review of Systems - General ROS:wt slow loss post surgery Psychological ROS: positive for - anxiety Endocrine [...] rashes or unusual skin lesions Exam/Objective: BP 130/80 Ht 5' 5.5 (1.664 m) Wt 110.7 kg (244 lb) BMI 39.99 kg/m?? General appearance: over wt nad Head: [...] rub, gallop, or abnormal sounds. Abdomen: soft, left groin tender, no hernia. Bowel sounds normal. No masses, no organomegaly. Active bowel sounds. Skin: Skin color, texture, turgor normal. No rashes or lesions noted on arms, chest, or abdomen. Lymphatics: No focal or generalized lymphadenopathy. Neck Ext no edema Mood stable Assessment and Plan: ASSESSMENT: ICD-10-CM ICD-9-CM 1. Recurrent major depressive disorder, in partial remission F33.41 296.35 2. Morbid obesity due to excess calories E66.01 278.01 3. Other specified hypothyroidism E03.8 244.8 4. Fibromyalgia M79.7 729.1 5. Abnormal LFTs (liver function tests) R79.89 790.6 US LIVER 6. Vitamin D deficiency E55.9 268.9 VITAMIN D 25 HYDROXY VITAMIN D 25 HYDROXY 7. Vitamin B12 deficiency (non anemic) E53.8 266.2 CBC WITHOUT DIFFERENTIAL VITAMIN B12 LEVEL CBC WITHOUT DIFFERENTIAL VITAMIN B12 LEVEL 8. Other hyperlipidemia E78.4 272.4 COMPREHENSIVE METABOLIC PANEL TSH LIPID PANEL COMPREHENSIVE METABOLIC PANEL TSH LIPID PANEL 9. Need for vaccination for Strep pneumoniae Z23 V03.82 PNEUMOCOCCAL 13-VALENT CONJUGATE VACCINE Ok celebrex--discussed PT BMI PLAN OF CARE Normal BMI ranges: 18-64 yrs: > or = 18.5 and < 25 65 yrs and older: > or = 23 and < 30 Body mass index is 39.99 kg/m??. Abnormal high BMI: patient counseled on lifestyle modifications including weight loss and daily exercise. Weight management options discussed. Gluc stable recheck lab rls stable Chol cont med Inc lft--cause? Check us Cont b12, vitd 2 x per week Cont cpap rls cont med PLAN: Orders Placed This Encounter ??? US LIVER ??? PNEUMOCOCCAL 13-VALENT (ADULT) ??? CBC WITHOUT DIFFERENTIAL (Favorites) ??? COMPREHENSIVE METABOLIC PANEL (Favorites) ??? TSH (Favorites) ??? LIPID PANEL (Favorites) ??? VITAMIN D 25 HYDROXY (Chemistry) ??? VITAMIN B12 LEVEL (Chemistry) Appropriate medications prescribed Appropriate patient instructions provided Follow-up as I have indicated. Medications and options explained to include common side effects. Understanding of medications, course, diagnosis, and expectations were expressed by patient/guardian. ROLLER OPERATIONS AND HR MANAGER documented in this encounter Plan of Treatment Upcoming Encounters Date Type Department Care Team (Late st Contact Info) Description 07/27/2024 9:40 AM CDT Office Visit [facility] Primary Care [facility] [address] [place] [address] [address] [place] [phone] Eldon Koehler MD [address] [facility] [address] [place] [address] Scheduled Orders Name Type Priority Associated Diagnoses Orde r Schedule CBC WITHOUT DIFFERENTIAL Lab Routine Vitamin B12 deficiency (non anemic) Expected: 06/19/2017, Expires: 03/19/2018 documented as of this encounter Procedures Procedure Name Priority Date/Time Associated Diagnosis Comments TEST AUTHORIZATION Routine 06/12/2017 2: 18 AM CONTROLLER OPERATIONS AND HR MANAGER CBC WITH DIFFERENTIAL Routine 06/12/2017 2:18 AM CONTROLLER OPERATIONS AND HR MANAGER VITAMIN D 25 HYDROXY Routine 06/12/2017 2:18 AM CONTROLLER OPERATIONS AND HR MANAGER Vitamin D deficiency URIC ACID Routine 06/12/2017 2:18 AM CONTROLLER OPERATIONS AND HR MANAGER TSH Routine 06/12/2017 2:18 AM CONTROLLER OPERATIONS AND HR MANAGER Other hyperlipidemia VITAMIN B12 LEVEL Routine 06/12/2017 2:1 8 AM CONTROLLER OPERATIONS AND HR MANAGER Vitamin B12 deficiency (non anemic) LIPID PANEL Routine 06/12/2017 2:18 AM CONTROLLER OPERATIONS AND HR MANAGER Other hyperlipidemia COMPREHENSIVE METABOLIC PANEL Routine 06/12/2017 2:18 AM CONTROLLER OPERATIONS AND HR MANAGER Other hyperlipidemia documented in this encounter Results * TEST AUTHORIZATION (06/12/2017 2:18 AM CONTROLLER OPERATIONS AND HR MANAGER) TEST INFORMATION URIC ACID [facility] TEST INFORMATION TC[address] [facility] CLIENT CONTACT DEVANTE Etienne/STU [facility] Comment: The laboratory testing on this patient was verbally requested or confirmed by the ordering physician or his or her authorized plastic products sales representative after contact with an employee of [employer] [facility]. Federal regulations require that we maintain on file written authorization for all laboratory testing. ??Accordingly we are asking that the ordering physician or his or her authorized plastic products sales representative sign a copy of this report and promptly return it to the client services vice president. Signature: SEE NOTE [facility] Comment: Fax number: [phone] FASTING:YES FASTING: YES Test Performed at: [facility] ??[phone] Brent Lieberman D.O., MPH 06/12/2017 2:18 AM CONTROLLER OPERATIONS AND HR MANAGER Eldon Koehler MD CHEMISTRY ORDERABLES Performing Organization Address City/[facility]/ZIP Co de Phone Number [employer] [facility] [address] [place] [address] * URIC ACID (06/12/2017 2:18 AM CONTROLLER OPERATIONS AND HR MANAGER) Pathologist [facility] URIC ACID 4.9 2.5 - 7.0 mg/dL [facility] Comment: Therapeutic target for gout patients: <6.0 mg/dL Test Performed at: [facility] ??[phone] Brent Lieberman D.O., MPH 06/12/2017 2:18 AM CONTROLLER OPERATIONS AND HR MANAGER Eldon Koehler MD CHEMISTRY ORDERABLES Performing Organization Address [facility]/ZIP Co de Phone Number [facility] [address] [place] [address] * CBC WITH DIFFERENTIAL (06/12/2017 2:18 AM CONTROLLER OPERATIONS AND HR MANAGER) WBC 8.3 3.8 - 10.8 Thousand/u L [facility] RBC 4.70 3.80 - 5.10 Million/uL [facility] SportID [facility] HEMOGLOBIN 13.5 11.7 - 15.5 g/dL [facility] HEMATOCRIT 41.3 35.0 - 45.0 % [facility] MCV 87.9 80.0 - 100.0 fL [facility] MCH 28.7 27.0 - 33.0 pg [facility] MCHC 32.7 32.0 - 36.0 g/dL [facility] RDW 12.9 11.0 - 15.0 % [facility] PLATELETS 282 140 - 400 Thousand/u L [facility] MPV 12.0 7.5 - 12.5 fL [facility] Comment: Test Performed at: [facility] ??[phone] Brent Lieberman D.O., MPH 06/12/2017 2:18 AM CONTROLLER OPERATIONS AND HR MANAGER Eldon Koehler MD HEMATOLOGY ORDERABLE S Performing Organization Address [facility] Co de Phone Number [facility] [address] [place] [address] * VITAMIN B12 LEVEL (06/12/2017 2:18 AM CONTROLLER OPERATIONS AND HR MANAGER) VITAMIN B12 623 200 - 1100 pg/mL [facility] Comment: Test Performed at: [facility] ??[phone] Brent Lieberman D.O., MPH Blood 06/12/2017 2:18 AM CONTROLLER OPERATIONS AND HR MANAGER Eldon Koehler MD CHEMISTRY ORDERABLES Performing Organization Address [facility] Co de Phone Number [facility] [address] [place] [address] * VITAMIN D 25 HYDROXY (06/12/2017 2:18 AM CONTROLLER OPERATIONS AND HR MANAGER) VITAMIN D, 25 OH, TOTAL 54 30 - 100 ng/mL [facility] Comment: Vitamin D Status ? 25-OH Vitamin D: Deficiency: ?<20 ng/mL Insufficiency: ? 20 - 29 ng/mL Optimal: ? > or = 30 ng/mL For 25-OH Vitamin D testing on patients on D2-supplementation and patients for whom quantitation of D2 and D3 fractions is required, the QuestAssureD(TM) 25-OH VIT D, (D2,D3), LC/MS/MS is recommended: order code 91002 (patients >2yrs). For more information on this test, go to: http://education.[employer]/faq/UHO510 (This link is being provided for informational/educational purposes only.) Test Performed at: [facility] [address] [place], [place] ??[phone] Brent Lieberman D.O., MPH Blood 06/12/2017 2:18 AM CONTROLLER OPERATIONS AND HR MANAGER Eldon Koehler MD CHEMISTRY ORDERABLES [facility] [address] [place] [address] * (ABNORMAL) LIPID PANEL (06/12/2017 2:18 AM CONTROLLER OPERATIONS AND HR MANAGER) CHOLESTEROL 171 <200 mg/dL [facility] HDL 46(L) >50 mg/dL [facility] TRIGLYCERIDE 132 <150 mg/dL [facility] LDL CALCULATED 102(H) mg/dL (calc) [facility] Comment: Reference range: <100 Desirable range <100 mg/dL for patients with CHD or diabetes and <70 mg/dL for diabetic patients with known heart disease. LDL-C is now calculated using the Christopher-Марина calculation, which is a validated novel method providing better accuracy than the Friedewald equation in the estimation of LDL-C. Christopher SS et al. ERLIN. 2013;310(19): 4005-6784 (http://education.[employer]/faq/BSI229) CHOL/HDL RATIO 3.7 <5.0 (calc) [facility] TOTAL NON-HDL CHOL(LDL+VLDL) 125 <130 mg/dL (calc) [facility] Comment: For patients with diabetes plus 1 major ASCVD risk factor, treating to a non-HDL-C goal of <100 mg/dL (LDL-C of <70 mg/dL) is considered a therapeutic option. Test Performed at: [facility] [address] [place] [address] ??[phone] Brent Lieberman D.O., MPH Blood 06/12/2017 2:18 AM CONTROLLER OPERATIONS AND HR MANAGER Eldon Koehler MD CHEMISTRY ORDERABLES Performing Organization Address [facility] Co de Phone Number [employer] [facility] [address] [place] [address] * (ABNORMAL) TSH (06/12/2017 2:18 AM CONTROLLER OPERATIONS AND HR MANAGER) TSH 0.39(L) 0.40 - 4.50 mIU/L [facility] SportID [facility] Comment: Test Performed at: [employer] [address] [place] [address] ??[phone] Brent Lieberman D.O., MPH Blood 06/12/2017 2:18 AM CONTROLLER OPERATIONS AND HR MANAGER Eldon Koehler MD CHEMISTRY ORDERABLES Performing Organization Address [facility] Co de Phone Number [employer] [facility] [address] [place] [address] * (ABNORMAL) COMPREHENSIVE METABOLIC PANEL (06/12/2017 2:18 AM CONTROLLER OPERATIONS AND HR MANAGER) GLUCOSE 91 65 - 99 mg/dL [employer] [facility] Comment:Fasting reference in terval BUN 15 7 - 25 mg/dL [employer] [facility] CREATININE 0.67 0.50 - 0.99 mg/dL [employer] [facility] Comment: For patients >49 years of age, the reference limit for Creatinine is approximately 13% higher for people identified as -Somali. GFR 93 > OR = 60 mL/min/1 .73m2 [employer] [facility] GFR, 108 > OR = 60 mL/min/1 .73m2 [employer] . [facility] BUN/CREAT RATIO NOT APPLICABLE 6 - 22 (calc) [employer] . [facility] SODIUM 142 135 - 146 mmol/L [employer] . [facility] POTASSIUM 4.3 3.5 - 5.3 mmol/L [facility] . [facility] CHLORIDE 105 98 - 110 mmol/L [facility] . [facility] CO2 30 20 - 31 mmol/L [facility] . [facility] CALCIUM 9.6 8.6 - 10.4 mg/dL [facility] TOTAL PROTEIN 7.0 6.1 - 8.1 g/dL [facility] . [facility] ALBUMIN 4.2 3.6 - 5.1 g/dL [facility] . [facility] GLOBULIN 2.8 1.9 - 3.7 g/dL (calc) [facility] ALBUMIN/GLOBULIN RATIO 1.5 1.0 - 2.5 (calc) [facility] . [facility] BILIRUBIN TOTAL 0.7 0.2 - 1.2 mg/dL [facility] . [facility] ALKALINE PHOSPHATASE 140(H) 33 - 130 U/L [facility] AST 19 10 - 35 U/L [facility] ALT 17 6 - 29 U/L [employer] . [facility] Comment: Test Performed at: [facility] ??[phone] Brent Lieberman D.O., MPH Blood 06/12/2017 2:18 AM CONTROLLER OPERATIONS AND HR MANAGER Eldon Koehler MD CHEMISTRY ORDERABLES [employer] [facility] [address] [place] [address] documented in this encounter Visit Diagnoses Diagnosis Recurrent major depressive disorder, in partial remission- Primary Morbid obesity due to excess calories Other specified hypothyroidism Fibromyalgia Mylagia and myositis, unspecified Abnormal LFTs (liver function tests) Other abnormal blood chemistry Vitamin D deficiency Unspecified vitamin D deficiency Vitamin B12 deficiency (non anemic) Other B-complex deficiencies Other hyperlipidemia Need for vaccination for Strep pneumoniae Need for prophylactic vaccination against streptococcus pneumoniae (pneumococcus) documented in this encounter Care Teams Vibratory Pile Driver Relationship Specialty Start Date End Date Eldon Koehler MD PCP - General 10/06/07 documented as of this encounter
--- OUTSIDE RECORDS SUMMARY | 2024-05-22 17:01 | XMS_ITS | Encounter Summary ---
Author Organization Address [address] [place] [address] Care Team Providers Care Sales Mgr Name Role Phone Eldon Koehler MD Primary Care Provider [phone] Reason for Visit * Reason Comments Obesity Patient s/p laparosc opic sleeve gastrectomy 01/21/2017. Encounter Details Date Type Department Care Team (Latest Contact Info) Description 10/16/2017 10:45 AM CDT Office Visit [facility] - [address] [place] [address] Elizabeth Mcbride MD [address] [place] [address] [place] [address] Intestinal malabsorption following gastrectomy (Primary Dx); Severe obesity (BMI 35.0-39.9) with comorbidity; Other sleep apnea; S/P bariatric surgery Social History Tobacco Use [...] Reading Time Taken Comments Blood Pressure 130/80 10/16/2017 10:52 AM CDT Pulse 92 10/16/2017 10:52 AM CDT Temperature - - Respiratory Rate - - Oxygen Saturation 97% 10/16/2017 10:52 AM CDT Inhaled Oxygen Concentration - - Weight 102 kg (224 lb 12.8 oz) 10/16/2017 10:52 AM CDT Height 166.4 cm (5' 5.5 ) 10/16/2017 10:52 AM CD T Body Mass Index 36.84 10/16/2017 10:52 AM CDT documented in this encounter Progress Notes * Elizabeth Mcbride MD - 10/16/2017 11:13 AM CDT Images from the original note were not included. Chief Complaint Patient presents with ??? Obesity Patient s/p laparoscopic sleeve gastrectomy 01/21/2017. Winifred Rodriguez is a 67 y.o. female s/p laparoscopic sleeve gastrectomy 01/21/2017. ?? Patient denies any recent nausea or vomiting. Patient had 2 episodes of vomiting after eating steak. Denies GERD-Takes Prilosec. Denies any difficulty swallowing. Bowel movements normal. Patient drinking at least 36-42 oz of fluid daily. Denies dizziness or lightheadedness. Patient has occasional dry mouth, but states it always has been that way. Signs and symptoms of dehydration reviewed with patient. Patient to call office with any symptoms of dizziness, lightheadedness, dry mouth, fatigue, or concentrated urine. Unsure of daily caloric intake.. Patient is drinking occasional protein shakesdaily. Patients activity regimen is taking care of grandchildren at this time. Any exercise causes body to swell. Fibromyalgia is acting up. She is no longer taking hydrocodone Steak caused her to vomit x 2 Sp bariatric surgery [place] body weight (IBW) 130 Excess Body Weight (EBW) 170 Reasonable post op weight goal -85= 215 date Weight weight lost % EBW Highest preop weight 300 preop visit 287 Date of Surgery 01.21.2017 laparoscopic sleeve gastrectomy 02/05/2017 First post op visit 116.9 kg (257 lb 12.8 oz) (02/05/17 0841) 03/13/2017 243 57 05/15/2017 227 73 10/16/2017 224 76 ?? Intestinal malabsorption following sleeve gastrectomy She [...] heartburn, nausea and vomiting. BP 130/80 Pulse 92 Ht 5' 5.5 (1.664 m) Wt 102 kg (224 lb 12.8 oz) SpO2 97% BMI 36.84 kg/m?? Physical Exam Constitutional: No distress. Pulmonary/Chest: No respiratory distress. Abdominal: She exhibits no distension. There is no tenderness. Incisions closed. No errythema Skin: She is not diaphoretic. Psychiatric: She has a normal mood and affect. Her behavior is normal. ASSESSMENT: Encounter Diagnoses Name Primary? Intestinal malabsorption following gastrectomy Unknown Could be severe. some recent labs reviewed. Repeat labs ordered ??? Severe obesity (BMI 35.0-39.9) with comorbidity Improved but still severe. Start phentermine which is a medication which requires monitoring Discussed risks of interreactions. Patient plans to do the 2 day reset diet (we discussed the protein shakes for 2 days with an evening meal on the 2nd day of shredded chicken, Phentermine was prescribed today. An extensive consent was reviewed with the patient and signed. Phentermine is not without risk. In particular, risks of cardiac issues. She understands that She is to take her blood pressure weekly and if elevated, patient needs to notify me and stop the medication. Pt to also take pulse weekly and notify me of increased levels , She understands that She is to take a test monthly or anytime she may feel that she is , she stop the medication., The medication may not be covered by insurance, so patientmay have to pay out of pocket., Phentermine is typically only for a short course while the patient is actively demonstrating weight loss as well as demonstrating diet and exercise behavior changes. It is a reset medication. It is not magic and results are not guaranteed, At any time the patient demonstrates any of the adverse effects of the medication, she is to stop it immediately and notify me., we discussed that there can be a cross reactivity with some medications, causing serotonin syndrome. This could be seizures and heart issues.Concurrent use of amphetamines with agents that affect serotonin may increase the risk of serotonin syndrome. We discussed the symptoms of serotonin syndrome which may include tremor, agitation, diaphoresis, hyperreflexia, clonus, tachycardia, hyperthermia, and muscle rigidity. The patient feels that the benefit of the medication is higher than the riskof taking it. If she notices any symptoms, stop immediately., A one month prescription was given with the instruction that she will need to return monthly for refills, for the first 3 months., fup in1 month. If you decide to not take the medication, please cancel appt by calling and reschedule in 3 months for a fup, patient is planning to stop the medications that can have a cross reactivity. Donot start phentermine for 2 weeks after those have stopped. If those other meds are not stopped, donot start phentermine., Increase exercise and start using a diet journal. and Complex decision making for a medication requiring intensive monitoring for toxicity ??? Other sleep apnea Staple. Needs fup He self stopped ??? S/P bariatric surgery PLAN: Orders Placed This Encounter ??? VITAMIN B1 LEVEL ??? FOLATE, SERUM ??? phentermine (ADIPEX P) 37.5 mg tablet [...] stage 4., Discussed exercise and activity expectations, 91705 steps a day, exercise after 6 weeks [...] spitting up more than once a week. Discussed with patient. She is agreable to accept this risk Drug-Drug: phentermine and DULoxetine Concurrent use of amphetamines with agents that affect serotonin may increase the risk of serotoninsyndrome. Symptoms of serotonin syndrome may include tremor, agitation, diaphoresis, hyperreflexia,clonus, tachycardia, hyperthermia, and muscle rigidity.(8) Concurrent use of amphetamines or phentermine and a SNRI may increase the risk for high blood pressure or make hypertension more difficult to control. SSRIs and SNRIs linked to this monograph are: citalopram, desvenlafaxine, duloxetine, escitalopram, fluoxetine, fluvoxamine, levomilnacipran, milnacipran, paroxetine, sertraline, venlafaxine, vilazodone and vortioxetine. * Anabella Solorzano - 10/16/2017 10:51 AM CDT Patient s/p laparoscopic sleeve gastrectomy 01/21/2017. Patient denies any recent nausea or vomiting. Patient had 2 episodes of vomiting after eating steak. Denies GERD-Takes Prilosec. Denies any difficulty swallowing. Bowel movements normal. Patient drinking at least 36-42 oz of fluid daily. Denies dizziness or lightheadedness. Patient has occasional dry mouth, but states it always has been that way. Signs and symptoms of dehydration reviewed with patient. Patient to call office with any symptoms of dizziness, lightheadedness, dry mouth, fatigue, or concentrated urine. Unsure of daily caloric intake.. Patient is drinking occasional protein shakesdaily. Patients activity regimen is taking care of grandchildren at this time. documented in this encounter Plan of Treatment Upcoming Encounters Date Type Department Care Team (Late st Contact Info) Description 07/27/2024 9:40 AM CDT Office Visit [facility] [address] [place] [address] Eldon Koehler MD [address] [place] [address] [address] [place] [address] documented as of this encounter Visit Diagnoses Diagnosis Intestinal malabsorption following gastrectomy- Primary Severe obesity (BMI 35.0-39.9) with comorbidity Other sleep apnea S/P bariatric surgery Bariatric surgery status documented in this encounter Care Teams Sales Mgr Relationship Specialty Start Date End Date Eldon Koehler MD PCP - General 10/06/07 documented as of this encounter
--- OUTSIDE RECORDS SUMMARY | 2024-05-22 17:01 | XMS_ITS | Encounter Summary ---
Author Organization [facility] Address [address] [place] [address] Care Team Providers Care Technical Project Manager Name Role Phone Eldon Koehler MD Primary Care Provider Encounter Details Date Type Department Care Team (Latest Contact Info) Description 12/26/2016 12:19 PM CDT - 12/26/2016 11:59 PM T Hospital Encounter [facility] [address] [facility], [place] [address] Elizabeth Mcbride MD [address] [place] [address] Discharge Disposition: Home or Self Care Social [...] the day. 90 Tablet 3 12/19/2016 01/13/2018 celecoxib (CeleBREX) 200 mg capsule Take 1 [...] mouth daily. 90 Capsule 3 09/24/2016 08/04/2017 omeprazole (PriLOSEC) 20 mg Capsule, Delayed Release(E.C.) [...] 01/21/2014 03/07/2017 documented as of this encounter Plan of Treatment Upcoming Encounters Date Type Department Care Team (Late st Contact Info) Description 07/27/2024 9:40 AM CDT Office Visit [facility] Primary Care [address] [place] [address] Eldon Koehler MD [address] [place] [address] [address] [place] [address] documented as of this encounter Procedures Procedure Name Priority Date/Time Associated Diagnosis Comments DIFFERENTIAL, MANUAL Routine 12/26/2016 12:24 PM CDT Morbid obesity due to excess calories FOLATE, SERUM Routine 12/26/2016 12:24 PM CDT Morbid obesity, unspecified obesity type CBC WITH DIFFERENTIAL Routine 12/26/2016 12:24 PM CDT Morbid obesity due to excess calories BMI 45.0-49.9, adult VITAMIN B1 LEVEL Routine 12/26/2016 12:2 4 PM CDT Morbid obesity, unspecified obesity type IRON LEVEL Routine 12/26/2016 12:24 PM CDT Increased BMI COMPREHENSIVE METABOLIC PANEL Routine 12/26/2016 12:24 PM CDT Morbid obesity due to excess calories BMI 45.0-49.9, adult documented in this encounter Results * (ABNORMAL) MANUAL DIFFERENTIAL (12/26/2016 12:24 PM CDT) SEGMENTED NEUTROPHILS 52 % 12/26/2016 2:33 PM CDT [facility] LYMPHOCYTES RELATIVE 32 % 12/26/2016 2:33 PM CDT [facility] ATYPICAL LYMPHOCYTES RELATIVE 7(H) 0 - 5 % 12/26/2016 2:33 PM CDT [facility] - . [facility] MONOCYTES RELATIVE 6 % 12/26/2016 2:33 PM CDT [facility] BASOPHILS RELATIVE 3 % 12/26/2016 2:33 PM CDT [facility] NEUTROPHILS ABSOLUTE COUNT 3.74 1.90 - 7.00 K/uL 12/26/2016 2:33 PM CDT [facility] LYMPHOCYTES ABSOLUTE 2.30 0.70 - 4.50 K/uL 12/26/2016 2:33 PM CDT [facility] ATYPICAL LYMPHS ABSOLUTE 0.50 K/uL 12/26/2016 2:33 PM CDT [facility] MONOCYTES ABSOLUTE 0.43 0.10 - 1.30 K/uL 12/26/2016 2:33 PM CDT [facility] BASOPHILS ABSOLUTE 0.22(H) 0.00 - 0.20 K/uL 12/26/2016 2:33 PM CDT [facility] TOTAL CELLS COUNTED IN DIFF 100 12/26/2016 2:33 PM CDT [facility] PLATELET EST. Consistent with Count 12/26/2016 2:33 PM CDT [facility] ANISOCYTOSIS 1+ /hpf 12/26/2016 2:33 PM CDT [facility] POIKILOCYTES 1+ /hpf 12/26/2016 2:33 PM CDT [facility] POLYCHROMASIA 1+ /hpf 12/26/2016 2:33 PM CDT [facility] HYPOCHROMIA 1+ /hpf 12/26/2016 2:33 PM CDT [facility] OVALOCYTES 1+ /hpf 12/26/2016 2:33 PM CDT [facility] SMUDGE CELLS Present /100 12/26/2016 2:33 PM CDT [facility] Blood Venipuncture / Unknown 12/26/2016 12:24 PM CDT 12/26/2016 12:36 PM CDT Narrative [facility] - 12/26/2016 2:33 PM CDT Manual differential performed on albumin slide. External Provider [facility] HEMATOLOGY ORDER JONATHON COM [facility] CLIA# [id number] [address] [place], [place] [address] [place] [address] * (ABNORMAL) CBC WITH DIFFERENTIAL (12/26/2016 12:24 PM CDT) WBC 7.2 4.0 - 9.8 K/uL 12/26/2016 12:53 PM CDT [facility] RBC 4.83 3.90 - 4.90 M/uL 12/26/2016 12:53 PM CDT [facility] HEMOGLOBIN 13.0 11.8 - 14.8 g/dL 12/26/2016 12:53 PM CDT [facility] HEMATOCRIT 41.7 35.5 - 44.0 % 12/26/2016 12:53 PM CDT [facility] MCV 86.3 82.0 - 99.0 fL 12/26/2016 12:53 PM CDT [facility] MCH 26.9(L) 27.2 - 32.6 pg 12/26/2016 12:53 PM CDT [facility] MCHC 31.2(L) 31.5 - 35.5 g/dL 12/26/2016 12:53 PM CDT [facility] RDW 15.0(H) 11.5 - 14.5 % 12/26/2016 12:53 PM CDT [facility] RDW-STDEV 47.8 37.1 - 48.7 fL 12/26/2016 12:53 PM CDT [facility] PLATELETS 229 140 - 350 K/uL 12/26/2016 12:53 PM CDT [facility] MPV 11.3 9.3 - 12.4 fL 12/26/2016 12:53 PM CDT [facility] Blood Venipuncture / Unknown 12/26/2016 12:24 PM CDT 12/26/2016 12:36 PM CDT Elizabeth Gomez MD HEMATOLOGY ORDER JONATHON [facility] CLIA# [id number] [address] [facility] [address] * (ABNORMAL) COMPREHENSIVE METABOLIC PANEL (12/26/2016 12:24 PM CDT) SODIUM 141 136 - 145 mmol/L 12/26/2016 2:14 PM CDT [facility] POTASSIUM 4.0 3.5 - 5.0 mmol/L 12/26/2016 2:14 PM CDT [facility] CHLORIDE 101 98 - 107 mmol/L 12/26/2016 2:14 PM CDT [facility] CO2 23 22 - 29 mmol/L 12/26/2016 2:14 PM [facility] CALCIUM 9.2 8.6 - 10.2 mg/dL 12/26/2016 2:14 PM [facility] BUN 11 8 - 23 mg/dL 12/26/2016 2:14 PM [facility] CREATININE 0.86 0.51 - 0.95 mg/dL 12/26/2016 2:14 PM [facility] GLUCOSE 98 74 - 99 mg/dL 12/26/2016 2:14 PM [facility] TOTAL PROTEIN 7.4 6.7 - 8.6 g/dL 12/26/2016 2:14 PM [facility] ALBUMIN 4.1 3.5 - 5.2 g/dL 12/26/2016 2:14 PM [facility] BILIRUBIN TOTAL 0.7 0.2 - 1.1 mg/dL 12/26/2016 2:14 PM [facility] ALKALINE PHOSPHATASE 197(H) 35 - 104 U/L 12/26/2016 2:14 PM [facility] AST 48(H) <33 U/L 12/26/2016 2:14 PM [facility] ALT 74(H) <34 U/L 12/26/2016 2:14 PM [facility] GFR >60 >=60 mL/min/1.7 3 sq meter 12/26/2016 2:14 PM [facility] Comment: eGFR has not been validated for [...] mL/min/1.7 3 sq meter 12/26/2016 2:14 PM CDT [facility] ANION GAP 17(H) 8 - 16 mmol/L 12/26/2016 2:14 PM CDT [facility] Blood Venipuncture / Unknown 12/26/2016 12:24 PM CDT 12/26/2016 12:36 PM CDT Narrative [facility] - 12/26/2016 2:14 PM CDT Samples containing indocyanine green cause interferences on Total and/or Direct Bilirubin and must not be measured. Elizabeth Gomez MD CHEMISTRY ORDERA BLES Performing Organization Address City[facility]/ZIP Co de Phone Number [facility] CLIA# [id number] [address] [place] [address] * IRON LEVEL (12/26/2016 12:24 PM CDT) IRON 62 37 - 145 ug/dL 12/26/2016 2:14 PM CDT [facility] Blood Venipuncture / Unknown 12/26/2016 12:24 PM CDT 12/26/2016 12:36 PM CDT Elizabeth Gomez MD CHEMISTRY ORDERA BLEZulema Performing Organization Address [facility]/ZIP Co de Phone Number [facility] CLIA# [id number] [address] [place] [address] * VITAMIN B1 LEVEL (12/26/2016 12:24 PM CDT) VITAMIN B1 118 70 - 180 nmol/L 12/28/2016 2:30 PM CDT [facility] Comment: ADDITIONAL INFORMATION This test was developed and its performance characteristics determined by [facility] in a manner consistent with CLIA requirements. This test has not been cleared or approved by the U.S. Food and Drug Administration. Test Performed by: [facility] - [address] [address] Blood Venipuncture / Unknown 12/26/2016 12:24 PM CDT 12/26/2016 12:36 PM CDT Elizabeth Gomez MD CHEMISTRY ORDERA BLES [facility] * FOLATE, SERUM (12/26/2016 12:24 PM CDT) [facility] FOLATE, SERUM 19.2 >4.5 ng/mL 12/26/2016 1:55 PM CDT [facility] Blood Venipuncture / Unknown 12/26/2016 12:24 PM CDT 12/26/2016 12:36 PM CDT Elizabeth Gomez MD CHEMISTRY ORDERA BLES [facility] CLIA# [id number] [address] [place] [address] documented in this encounter Visit Diagnoses Diagnosis Morbid obesity, unspecified obesity type Increased BMI Other symptoms concerning nutrition, metabolism, and development Morbid obesity due to excess calories BMI 45.0-49.9, adult Body Mass Index 45.0-49.9, adult documented in this encounter Care Teams Technical Project Manager Relationship Specialty Start Date End Date Eldon Koehler MD PCP - General 10/06/07 documented as of this encounter
--- OUTSIDE RECORDS SUMMARY | 2024-05-22 17:01 | XMS_ITS | Encounter Summary ---
Author Organization [facility] Address [address] [place] [address] Care Team Providers Care Joiner Name Role Phone Eldon Koehler MD Primary Care Provider [phone] Reason for Visit * Reason Comments Medication Refill Encounter Details Date Type Department Care Team (Late st Contact Info) Description 10/15/2017 Refill [facility] Internal Medicine [address] [address] Eldon Koehler MD [address] [place] [address] Fibromyalgia Social History Tobacco Use Types [...] encounter Miscellaneous Notes * Telephone Encounter - Deena Carey RN - 10/15/2017 9:18 AM CDT EMILY: 06/12/17 NOV: none Last fill: 09/25/17 documented in this encounter Plan of Treatment Upcoming Encounters Date Type Department Care Team (Late st Contact Info) Description 07/27/2024 9:40 AM CDT Office Visit [facility] Primary [facility] [address] [place] [address] Eldon Koehler MD [address] [place] [address] [address] [place] [address] documented as of this encounter Visit Diagnoses Diagnosis Fibromyalgia Mylagia and myositis, unspecified documented in this encounter Care Teams Joiner Relationship Specialty Start Date End Date Eldon Koehler MD PCP - General 10/06/07 documented as of this encounter
--- OUTSIDE RECORDS SUMMARY | 2024-05-22 17:01 | XMS_ITS | Encounter Summary ---
Author Organization [facility] Address [address] [place] [address] Care Team Providers Care Help Desk Support Name Role Phone Eldon Koehler MD Primary Care Provider [phone] Encounter Details Date Type Department Care Team (Late st Contact Info) Description 12/26/2016 Abstract [facility] - [address] [place] [address] Elizabeth Mcbride MD [address] [place] [address] [address] [place] [address] Social History Tobacco Use Types Packs/Day [...] [facility] [address] [facility] [facility] [address] [place] [address] Eldon Koehler MD [address] [facility] [address] [place] [address] documented as of this encounter Visit Diagnoses Not on filedocumented in this encounter Care Teams Help Desk Support Relationship Specialty Start Date End Date Eldon Koehler MD PCP - General 10/06/07 documented as of this encounter
--- OUTSIDE RECORDS SUMMARY | 2024-05-22 17:01 | XMS_ITS | Encounter Summary ---
Author Organization [facility] Address [address] [place] [address] Care Team Providers Care Websphere Architect Name Role Phone Eldon Koehler MD Primary Care Provider [phone] Reason for Visit * Reason Comments Medication Refill Encounter Details Date Type Department Care Team (Late st Contact Info) Description 08/04/2017 Refill [facility] Internal Medicine [address] [address] Eldon Koehler MD [address] [place] [address] Social History Tobacco Use Types Packs/Day [...] * Telephone Encounter - Pearl Black - 08/04/2017 2:50 PM CDT EMILY 06/12/17 NOV 10/10/17 documented in this encounter Plan of Treatment Upcoming Encounters Date Type Department Care Team (Late st Contact Info) Description 07/27/2024 9:40 AM CDT Office Visit [facility] Primary Care [address] [place] [address] Eldon Koehler MD [address] [facility] [address] [place] [address] documented as of this encounter Visit Diagnoses Not on filedocumented in this encounter Care Teams Websphere Architect Relationship Specialty Start Date End Date Eldon Koehler MD PCP - General 10/06/07 documented as of this encounter
--- OUTSIDE RECORDS SUMMARY | 2024-05-22 17:01 | XMS_ITS | Encounter Summary ---
Author Organization [facility] Address [address] [place] [address] Care Team Providers Care Soil Conservation Teacher Name Role Phone Eldon Koehler MD Primary Care Provider [phone] Reason for Visit * Reason Comments Follow Up Patient s/p lapaorsc opic sleeve gastrectomy 01/21/2017. Encounter Details Date Type Department Care Team ([facility] st Contact Info) Description 02/05/2017 8:45 AM CDT Office Visit [facility] - [address] [phone] Elizabeth Mcbride MD [address] [place] [phone] Surgery follow-up (Primary Dx) Social History [...] Sign Reading Time Taken Comments Blood Pressure 137/82 02/05/2017 8:41 AM CDT Pulse 82 02/05/2017 8:41 AM CDT Temperature - - Respiratory Rate - - Oxygen Saturation 97% 02/05/2017 8:41 AM CDT Inhaled Oxygen Concentration - - Weight 116.9 kg (257 lb 12.8 oz) 02/05/2017 8:41 AM CDT Height 166.4 cm (5' 5.5 ) 02/05/2017 8:41 AM CDT Body Mass Index 42.25 02/05/2017 8:41 AM CDT documented in this encounter Progress Notes * Elizabeth Mcbride MD - 02/05/2017 9:03 AM CDT Images from the original note were not included. Chief Complaint Patient presents with ??? Follow Up Patient s/p lapaorscopic sleeve gastrectomy 01/21/2017. Winifred Rodriguez is a 66 y.o. female who underwent a sleeve gastrectrectomy. Patient s/p lapaorscopic sleeve gastrectomy 01/21/2017. ?? Incision sites healing well. Patient had occasional nausea after eating artificial sweetener. TakesZofran PRN. States this has improved since starting pureed diet yesterday. Denies any difficulty swallowing. Denies GERD. Last bowel movement was about 1 week ago. Tried Milk of Mag. Patient is passing gas REMINDED PATIENT TO FINISH FAMOTIDINE TO COMPLETE 30 DAY POST OP TREATMENT. Patient currentlyon pureed diet. Patient drinking at least 24-32oz fluid daily. Mild dizziness/lightheadedness. Denies dry mouth. Urine clear and yellow. Signs and symptoms of dehydration reviewed with patient. Patient to call office with any symptoms of dizziness, lightheadedness, dry mouth, fatigue, or concentrated urine. Patient is drinking 1 protein shake daily. REMINDED PATIENT TO CONTINUE CRUSHING MEDICATIONS UNTIL PATIENT IS 4 WEEKS POST OP. REMINDED PATIENT NSAIDS ARE TO BE AVOIDED/ADDED TO ALLERGY LIST. Sp bariatric surgery [place] body weight (IBW) 130 Excess Body Weight (EBW) 170 Reasonable post op weight goal -85= 215 date Weight weight lost % EBW Highest preop weight 300 preop visit 287 Date of Surgery 01.21.2017 laparoscopic sleeve gastrectomy 02/05/2017 First post op visit 116.9 kg (257 lb 12.8 oz) (02/05/17 0841) ?? Intestinal malabsorption following sleeve gastrectomy She is taking vitamins MVI, chewable ?? MURIEL still using cpap ?? GERD-no sx ?? Hyperlipidemia- on lipitor ?? HTN- no meds ?? DM- denies ?? b12 def- takes replacement ?? Vit d def - take replacement Review of Systems Constitutional: Positive for weight loss. Negative for fever. Cardiovascular: Negative for leg swelling. Gastrointestinal: Negative for abdominal pain, constipation, diarrhea, heartburn, nausea and vomiting. BP 137/82 Pulse 82 Ht 5' 5.5 (1.664 m) Wt 116.9 kg (257 lb 12.8 oz) SpO2 97% BMI 42.25 kg/m2 Physical Exam Constitutional: No distress. Pulmonary/Chest: No respiratory distress. Abdominal: She exhibits no distension. There is no tenderness. Incisions closed. No errythema Skin: She is not diaphoretic. Psychiatric: She has a normal mood and affect. Her behavior is normal. Results for orders placed or performed during the hospital encounter of 01/21/17 PATHOLOGY Result Value Ref Range CASE REPORT Surgical Pathology Report Case: [id number] Authorizing Provider: Elizabeth Mcbride MD Collected: 01/21/2017 09:08 AM Ordering Location: [facility] Received: 01/21/2017 11:58 AM Operating Room Pathologist: Sarkis Lemons MD Specimen: Stomach, portion of stomach, wyes FINAL DIAGNOSIS Stomach, sleeve gastrectomy: - Fundic gland polyps. - Hyperplastic polyp. - Clinical history of obesity. OPERATIVE PROCEDURE Laparoscopic sleeve gastrectomy, possible open, EGD. CLINICAL DIAGNOSIS Adult body mass index 45.0-49.9 (Z68.42). GROSS DESCRIPTION Received in one container labeled Miguel Angel Rodriguez, portion of stomach is a 23.0 x 4.0 x 2.5-cm wedge of stomach with minimal attached adipose tissue. A 23.0-cm long, linear staple line is present along one edge. The serosa is red- howell and smooth. The lumen contains minimal dark red-brown, mucoid fluid. The mucosa is red-howell. It demonstrates normal rugal folds. At least nine red-howell, polypoid areas are identified and range from 0.1 x 0.2 cm to 0.7 x 0.4 cm. These come to within 1.3 cm from thestapled margin. Program Coordinator [employer] sections are submitted as follows: A1-tangential section from stapled margin; A2-polypoid areas on mucosal surface (nine); A3-additional sections of mucosa and stomach w all. MC/cgk MICROSCOPIC DESCRIPTION Sections show multiple fundic gland polyps and a hyperplastic polyp. There is relatively scant inflammation. Helicobacter organisms are not identified. There is no goblet cell metaplasia or evidence of malignancy. COMMENT Special stain and/or immunohistochemical results are interpreted with controls that demonstrate appropriate staining reactions. Note on use of immunocytochemistry reagents: This test was developed and its performance characteristic determined by [facility], Department of Laboratory Medicine. It has not been cleared or approved by the U.S. Food and Drug Administration. The FDA has determined that such clearance or approval is not necessary. The test is used for clinical purpose. Itshould not be regarded as investigational or for research. This laboratory is certified to perform high complexity testing. Case types starting with WS, WF, WB and WH are performed by [address], [address]. All other case types are performed by [address] [facility], [address]. ASSESSMENT: Encounter Diagnosis Name Primary? Surgery follow-up [...] stage 4., Discussed exercise and activity expectations, 85033 steps a day, exercise after 6 weeks [...] on weight loss. and fup in 4 weeks. Patient to call with question or problems (including abdominal or back pain, nausea or vomiting, fever or chills during the post operative period, unexpected heartburn or regurgitation, inability to tolerate solid protein foods after fully advancing diet, or having food stuck or spitting up more than once a week. * Anabella Solorzano - 02/05/2017 8:41 AM CDT Patient s/p lapaorscopic sleeve gastrectomy 01/21/2017. Incision sites healing well. Patient had occasional nausea after eating artificial sweetener. TakesZofran PRN. States this has improved since starting pureed diet yesterday. Denies any difficulty swallowing. Denies GERD. Last bowel movement was about 1 week ago. Tried Milk of Mag. Patient is passing gas REMINDED PATIENT TO FINISH FAMOTIDINE TO COMPLETE 30 DAY POST OP TREATMENT. Patient currentlyon pureed diet. Patient drinking at least 24-32oz fluid daily. Mild dizziness/lightheadedness. Denies dry mouth. Urine clear and yellow. Signs and symptoms of dehydration reviewed with patient. Patient to call office with any symptoms of dizziness, lightheadedness, dry mouth, fatigue, or concentrated urine. Patient is drinking 1 protein shake daily. REMINDED PATIENT TO CONTINUE CRUSHING MEDICATIONS UNTIL PATIENT IS 4 WEEKS POST OP. REMINDED PATIENT NSAIDS ARE TO BE AVOIDED/ADDED TO ALLERGY LIST. documented in this encounter Plan of Treatment Upcoming Encounters Date Type Department Care Team (Late st Contact Info) Description 07/27/2024 9:40 AM CDT Office Visit [facility] [address] [phone] Eldon Koehler MD [address] [place] [phone] documented as of this encounter Visit Diagnoses Diagnosis Surgery follow-up- Primary Follow-up examination, following unspecified surgery documented in this encounter Care Teams Soil Conservation Teacher Relationship Specialty Start Date End Date Eldon Koehler MD PCP - General 10/06/07 documented as of this encounter
--- OUTSIDE RECORDS SUMMARY | 2024-05-22 17:01 | XMS_ITS | Encounter Summary ---
Author Organization [facility] Address [address] [place] [address] Care Team Providers Care Certified Medical Technician Name Role Phone Eldon Koehler MD Primary Care Provider Encounter Details Date Type Department Care Team (Late st Contact Info) Description 12/26/2016 Orders Only [facility] Admitting [address] [place] [address] Hossein Singh MD [address] [place] [address] Social History Tobacco Use Types Packs/Day Years [...] Visit [facility] [id number] [place] [address] Eldon Koehler MD [address] [facility] [address] [place] [address] documented as of this encounter Visit Diagnoses Not on filedocumented in this encounter Care Teams Certified Medical Technician Relationship Specialty Start Date End Date Eldon Koehler MD PCP - General 10/06/07 documented as of this encounter
--- OUTSIDE RECORDS SUMMARY | 2024-05-22 17:02 | XMS_ITS | Encounter Summary ---
Author Organization [facility] Address [address] [place] [address] Care Team Providers Care Chronic Manager Name Role Phone Eldon Koehler MD Primary Care Provider [phone] Reason for Referral * Eval and Treat (Routine) - Closed Specialty Diagnoses / Procedures Referred By Contac t Referred To Contact Diagnoses Diastolic dysfunction Morbid obesity due to excess calories Body mass index 40.0-44.9, adult Other hyperlipidemia Impaired fasting glucose Gastroesophageal reflux disease without esophagitis Chronic low back pain with sciatica, sciatica laterality unspecified, unspecified back pain laterality Fibromyalgia Acquired hypothyroidism Recurrent major depression in partial remission Restless legs Elizabeth Mcbride MD [address] [address] Bunny Snyder MD [address] [address] Referral ID Status Reason Start Date Expiration Date V isits Requested Visits Authorized [id number] Closed CRS To Schedule (STL) 09/02/2016 09/02/2017 1 1 * Outpatient Services (Routine) - Closed Specialty [...] AND TREAT Elizabeth Mcbride MD [address] [address] [facility] [address] [place] [address] Referral ID Status Reason Start Date Expiration Date V isits Requested Visits Authorized [id number] Closed STL CTS 09/02/2016 05/11/2017 2 2 * Eval and Treat (Routine) - Closed [...] Restless legs Elizabeth Mcbride MD [address] [address] Iliana Melo, RD [address] [place] [address] Referral ID Status Reason Start Date Expiration Date V isits Requested Visits Authorized [id number] Closed CRS To Schedule (STL) 09/02/2016 09/03/2017 2 2 * Eval and Treat (Routine) - Closed [...] Restless legs Elizabeth Mcbride MD [address] [facility] [address] [place] [address] Not Found, Stl NO ADDRESS ON FILE Referral ID Status Reason Start Date Expiration Date Visits Requested Visits Authorized [id number] Closed Ordering Department To Schedule 09/02/2016 09/03/2017 1 1 Reason for Visit * Reason Comments Obesity Here to discuss surg ical weight loss options. * Eval and Treat (Routine) - Closed Specialty Diagnoses / Procedures Referred By Contac t Referred To Contact Surgery / General Surgery Diagnoses Morbid obesity, unspecified obesity type Eldon Koehler MD [address] [place] [address] Elizabeth Mcbride MD [address] [place] [phone] Referral ID Status Reason Start Date Expiration Date Visits Requested Visits Authorized [id number] Closed Performing Department To Schedule (STL) 06/10/2016 06/11/2017 6 6 Encounter Details Date Type Department Care Team (Late st Contact Info) Description 09/02/2016 1:30 PM CDT Office Visit [facility] - [address] [address] Elizabeth Mcbride MD [address] [place] [address] Morbid obesity due to excess calories (Primary Dx); Body mass index 40.0-44.9, adult; Obstructive sleep apnea of adult; Diastolic dysfunction; Osteoarthrosis multiple sites, not specified as generalized; Other hyperlipidemia; Impaired fasting glucose; Gastroesophageal reflux disease without esophagitis; Chronic low back pain with sciatica, sciatica laterality unspecified, unspecified back pain laterality; Fibromyalgia; Acquired hypothyroidism; Recurrent major depression in partial remission; Restless legs; Other symptoms and signs concerning food and fluid intake Social History Tobacco Use Types Packs/Day Years [...] Sign Reading Time Taken Comments Blood Pressure 133/94 09/02/2016 1:47 PM CDT Pulse 107 09/02/2016 1:39 PM CDT Temperature - - Respiratory Rate - - Oxygen Saturation 98% 09/02/2016 1:39 PM CDT Inhaled Oxygen Concentration - - Weight 136.4 kg (300 lb 12.8 oz) 09/02/2016 1:39 PM CDT Height 166.4 cm (5' 5.5 ) 09/02/2016 1:39 PM CDT Body Mass Index 49.29 09/02/2016 1:39 PM CDT documented in this encounter Progress Notes * Elizabeth Mcbride MD - 09/02/2016 2:17 PM CDT CHIEF COMPLAINT: I would like to learn about weight loss surgery Chief Complaint Patient presents with ??? Obesity Here to discuss surgical weight loss options. HISTORY OF PRESENT ILLNESS for each visit Winifred Rodriguez is a 66 y.o. female who is interested in learning about possible surgical options to help with her obesity including gastric bypass, sleeve gastrectomy, and gastric banding. Here to discuss surgical weight loss options. Patient states that she is most interested in the formal Mendy-en-Y bypass. Patient states that she has battled her [...] lifestyle she has been eating more as she is a stress eater. States that she has a lot of difficulty with exercising due to her previous back injuries. ?? obesity -Quality- Obesity is intrusive to life activities. Patient is on disability for fibromyalgia.. Support people include: spouse, 29yo daughter and her 2 young kids (4 and 22 months) son w schizoaffective disorder but he has tried to kill them- has been in [facility]- he is not in the picture . Pt is primary direct care provider for all of these. Pt sees a therapist - daughter has PTSD/ bipolar/ abused as child- they adopted when she was 9 years old. spouse is here with patient today. He is a production roustabout for insurance company. Pt thinks support people [...] larger meals daily when she feels that cannotreally control the intake. The patient has attempted to modify it by activity including no regular exercise, walk the dog- 2-3 times but a very short period. Previous diet medications include: She does not think she ever took phenfen Previous attempts at diet include: Weight watchers, Slim Fast, Cabbage soup diet and [place]. She lost the most weight on weigh down workshop 50 lbs, but then regained it. She does not have a history of eating disorders. These previous attempts are also listed on page 9 and 10 of packet. An overview review (not exhaustive) of the available medical record was done ?? Pulmonary and PreviousSleep evaluation: The patient [...] pressure but is not on medications. BP: (!) 133/94 (09/02/16 1347) BP is > or = 120/80 either value, with no h/o HTN. Pt has been inst. to f/u with primary care provider for BP recheck. Previous EKG results, if available: Results for orders placed or performed in visit on 10/25/14 EKG 12-LEAD Narrative Eldon Koehler MD 10/25/2014 12:56 PM EKG SR no ischemic changes ?? The patient Does have a diagnosis of hyperlipidemia and takes lipitor Lab Results Component Value Date/Time CHOLTOT 185 05/23/2015 12:01 PM HDL 47 05/23/2015 12:01 PM LDLCALC 100 (H) 05/23/2015 12:01 PM TRIGLYCERIDE 190 (H) 05/23/2015 12:01 PM ?? Does not have a diagnosis of Diabetes Lab Results Component Value Date/Time HGBA1C 6.0 05/23/2015 12:01 PM Lab Results Component Value Date/Time GLUCOSE 97 05/22/2016 07:45 AM ?? GI issues: Does have a diagnosis of GERD and takes omeprazole ?? Other medical issues found on chart review: : ?? Steroid use once a year for asthma ?? hypothyroid ?? b12 def- takes replacement ?? Vit d def - take replacement Past Medical Hx: Past Medical History: Diagnosis [...] 1979' ??? HX KNEE REPLACEMENT Bilateral 2014, 2015 ??? HX ROTATOR CUFF REPAIR Right 2017 ??? HX SKIN BIOPSY ??? SD COLONOSCOPY FLX DX W/COLLJ SPEC WHEN PFRMD N/A 03/15/2015 COLONOSCOPY performed by Osei Sutton MD at [facility] Medications: Current Outpatient Prescriptions on File Prior to Visit Medication Sig Dispense Refill ??? levothyroxine 150 [...] vision, photophobia, pain, discharge and redness. Respiratory: Positive for cough. Negative for hemoptysis, sputum production, shortness of breath, wheezing and stridor. Asthma Cardiovascular: Negative. Negative for chest pain, palpitations, orthopnea, claudication, leg swelling and PND. Gastrointestinal: Positive for heartburn. Negative for abdominal pain, blood in stool, constipation, diarrhea, melena, nausea and vomiting. Genitourinary: Negative. Negative for dysuria, flank pain, frequency, hematuria and urgency. Musculoskeletal: Positive for back pain, joint pain, myalgias and neck pain. Negative for falls. Fibromyalgia Skin: Negative. Negative for itching and rash. Neurological: Positive for weakness. Negative for dizziness, tingling, tremors, sensory change, speech change, focal weakness, seizures, loss of consciousness and headaches. Endo/Heme/Allergies: Negative. Negative for environmental allergies and polydipsia. Does not bruise/bleed easily. Psychiatric/Behavioral: Positive for depression. Negative for hallucinations, memory loss, substance abuse and suicidal ideas. The patient is not nervous/anxious and does not have insomnia. All other systems reviewed and are negative. BP (!) 133/94 Pulse (!) 107 Ht 5' 5.5 (1.664 m) Wt (!) 136.4 kg (300 lb 12.8 oz) SpO2 98% BMI 49.29 kg/m2 Physical Exam Constitutional: She is oriented [...] obesity due to excess calories Yes ??? Body mass index 40.0-44.9, adult ??? Obstructive sleep apnea of adult ??? Diastolic dysfunction ??? Osteoarthrosis multiple sites, not specified as generalized ??? Other hyperlipidemia ??? Impaired fasting glucose ??? Gastroesophageal reflux disease without esophagitis ??? Chronic low back pain with sciatica, sciatica laterality unspecified, unspecified back pain laterality ??? Fibromyalgia ??? Acquired hypothyroidism ??? Recurrent major depression in partial remission ??? Restless legs ??? Other symptoms and signs concerning food and fluid intake PLAN: Orders Placed This Encounter ??? FOLATE, SERUM ??? VITAMIN B1 LEVEL ??? IRON LEVEL ??? AMB REFERRAL TO BEHAVIORAL HEALTH ??? AMB REFERRAL TO NUTRITION ??? Generic Referral to Cardiology ??? PT EVAL AND TREAT ??? EKG ?? Exercise- Start slowly- if desired, work with the physical therapist to set up an exercise plan.Start with10 minutes a day of exercise three days a week. The goal by the time of surgery, is to work towards 30 minutes a day, 5 days a week. ?? Diet plan- Work with dietitian. Patient has been advised that keeping a diet journal is really important both before and after surgery to maximize weight loss. A notebook journal ([place] [employer] Exercise Journal) was offered to the patient with instructions to log food choices, caloriesand exerciseand bring to every appointment. [facility] Nutrition Guide for Bariatric Surgery was also provided ?? Behavioral modification- A mental health evaluation will be requested. The patient should consider counseling to assist with these lifestyle changes. Patient should demonstrate that they are in the process of making the necessary changes ?? Further preoperative tasks that need to be accomplished by the patient:Labs, evaluations are ordered. Consultations with dietitian, physical therapy (if not currently active) ?? Surgical options were discussed, risks of this particular patient were addressed. All questions were answered. Pt encouraged to bring support person throughout this process, especially spouse, if . ?? The patient did attend a seminar or watched seminar/ [employer] online. The patient received a copy ofhandouts ([facility] publications: Your Weight Matters magazine; Understanding Obesity; Understanding Excess Weight and its Role in Type 2 Diabetes; Understanding Your Weight Loss Options, as well as, Welcome to [facility], Frequently Asked Questions About Weight Loss Surgery, Getting Started with [facility] were provided). Questions were answered. Patient will meet with bariatric nurse coordinator today. ?? New Patient Packet Completed and I reviewed it- it will be scanned into Home-Account ?? Insurance verification- patient has been informed of the specifics of her insurance by the bariatric nurse coordinator. It is stressed that our program have no control over any of the insurance policies, plans or approvals. Pamphlet [facility] working with your insurance provider was provided. ?? Support group times and locations were [...] lb 12.8 oz). preop visit weight/ BMI procedure which patient has decided on probably sleeve gastrectomy. [place] body weight (IBW) 130 Excess Body Weight [...] so they can make an informed decision. Patient will need cardiac optimization., only patient and family can know if weight loss surgery renetta reasonable option., NSAIDS will need to be stopped prior to bariatric surgery and ideally not started again after due to risks of ulcers. and we will request an okay to proceed from the patient's current mental health provider Pt needs to make sure this is a good time and that she has care set up for her daughter and 2 grandkids Steroids- please refrain for month before surgery and 2 months after Patient is to stay in contact with our program manager nurses. We will schedule a further evaluation appointment when patient has completed the process, and then workup will be reviewed to decideif patient is truly a candidate for bariatric surgery. Bariatric lab and test review - I have personally reviewed these results cbc Lab Results Component Value Date/Time WBC 9.6 05/22/2016 07:45 AM HGB 12.6 05/22/2016 07:45 AM HCT 39.0 05/22/2016 07:45 AM PLT 344 05/22/2016 07:45 AM MCV 85.1 05/22/2016 07:45 AM bmp Lab Results Component Value Date/Time NA 143 05/22/2016 07:45 AM K 4.2 05/22/2016 07:45 AM CL 104 05/22/2016 07:45 AM CO2 32 (H) 05/22/2016 07:45 AM CA 9.5 05/22/2016 07:45 AM BUN 11 05/22/2016 07:45 AM CREAT 0.74 05/22/2016 07:45 AM GLUCOSE 97 05/22/2016 07:45 AM ANIONGAP 12 08/14/2015 03:10 PM BCRATIO NOT APPLICABLE 05/22/2016 07:45 AM lfts Lab Results Component Value Date/Time ALT 16 05/22/2016 07:45 AM AST 14 05/22/2016 07:45 AM ALKPHOS 157 (H) 05/22/2016 07:45 AM Lab Results Component Value Date/Time BILITOTAL 0.6 05/22/2016 07:45 AM HgbA1c Lab Results Component Value Date/Time HGBA1C 6.0 05/23/2015 12:01 PM Iron studies Lab Results Component Value Date/Time FERRITIN 159 06/30/2008 08:00 AM lipids Lab Results Component Value Date/Time CHOLTOT 185 05/23/2015 12:01 PM HDL 47 05/23/2015 12:01 PM LDLCALC 100 (H) 05/23/2015 12:01 PM TRIGLYCERIDE 190 (H) 05/23/2015 12:01 PM tsh Lab Results Component Value Date/Time TSH 2.00 05/22/2016 07:45 AM Vit b1 No results found for: VITAMINB1 Vit b12 Lab Results Component Value Date/Time WZQRJEON00 1445 (H) 05/22/2016 07:45 AM Vit d Lab Results Component Value Date/Time BPWC20WWD6 <4 07/12/2011 07:48 AM LPRW90GEY7 51 07/12/2011 07:48 AM AAXV07ZECY 37 05/22/2016 07:45 AM VITAMINDTO 40 05/23/2015 [...] should not gain weight prior to surgery. Signed: Elizabeth Gomez M.D., FACS, [facility], Diplomat of the Board of Obesity General Surgeon, [facility] [employer] Economist of Bariatric Surgery, [address], [address], [place] [address], [address] [address] [address], [facility] Office: [phone] 09/02/2016, 2:17 PM * Yulia Conrad, BENEDICT - 09/02/2016 1:29 PM CDT Here to discuss surgical weight loss options. Patient states that she is most interested in the formal Mendy-en-Y bypass. Patient states that she has battled her [...] lifestyle she has been eating more as she is a stress eater. States that she has a lot of difficulty with exercising due to her previous back injuries. documented in this encounter Miscellaneous Notes * Patient Instructions - Stefanie Mccrary RN - 09/02/2016 1:56 PM CDT Patient viewed [employer] Education Bariatric Surgery Informed Decision Making on line. Patient handout getting there from here discussed and given to patient. Discussed the patients insurance requirements and that of our program. The multidisciplinary team contact numbers and address given to patient.Program Dietary Guide book and food journal given to patient. Time given for patient questions. Patient needs to do: ?? 1 Psych evaluation/clearance ?? 1 PT exercise evaluation ?? 2 Dietary visits 1 consult and 1 pre op visit ?? Labs ?? EKG ?? Medical Clearance from PCP ?? Cardiac clearance ?? Pre op visit with Dr. Gomez once approved by insurance ?? [id number] calorie diet/70-80 grams protein per day ?? 30 minute exercise 3 times a week documented in this encounter Plan of Treatment Upcoming Encounters Date Type Department Care Team (Late st Contact Info) Description 07/27/2024 9:40 AM CDT Office Visit [facility] [address] [place] [address] Eldon Koehler MD [address] [place] [address] [address] [place] [address] Scheduled Orders Name Type Priority [...] major depression in partial remission Restless legs 1 Occurrences starting 09/02/2016 until 09/02/2017 Scheduled Referrals Name Type Priority Associated Diagnoses Orde r Schedule AMB REFERRAL TO BEHAVIORAL HEALTH Outpatient Referral Routine Morbid obesity due to excess calories Body mass index 40.0-44.9, adult Diastolic dysfunction Other hyperlipidemia Impaired fasting glucose Gastroesophageal reflux disease without esophagitis Chronic low back pain with sciatica, sciatica laterality unspecified, unspecified back pain laterality Fibromyalgia Acquired hypothyroidism Recurrent major depression in partial remission Restless legs Ordered: 09/02/2016 AMB REFERRAL TO NUTRITION Outpatient Referral Routine Morbid obesity due to excess calories Body mass index 40.0-44.9, adult Diastolic dysfunction Other hyperlipidemia Impaired fasting glucose Gastroesophageal reflux disease without esophagitis Chronic low back pain with sciatica, sciatica laterality unspecified, unspecified back pain laterality Fibromyalgia Acquired hypothyroidism Recurrent major depression in partial remission Restless legs Ordered: 09/02/2016 AMB REFERRAL TO CARDIOLOGY Outpatient Referral Routine Diastolic dysfunction Morbid obesity due to excess calories Body mass index 40.0-44.9, adult Other hyperlipidemia Impaired fasting glucose Gastroesophageal reflux disease without esophagitis Chronic low back pain with sciatica, sciatica laterality unspecified, unspecified back pain laterality Fibromyalgia Acquired hypothyroidism Recurrent major depression in partial remission Restless legs Ordered: 09/02/2016 documented as of this encounter Visit Diagnoses Diagnosis Morbid obesity due to excess calories- Primary Body mass index 40.0-44.9, adult Body Mass Index 40.0-44.9, adult Obstructive sleep apnea of adult Obstructive sleep apnea (adult) (pediatric) Diastolic dysfunction Heart disease, unspecified Osteoarthrosis multiple sites, not specified as generalized Osteoarthrosis involving, or with mention of more than one site, but not specified as generalized, site unspecified Other hyperlipidemia Impaired fasting glucose Gastroesophageal reflux disease without esophagitis Esophageal reflux Chronic low back pain with sciatica, sciatica laterality unspecified, unspecified back pain laterality Fibromyalgia Mylagia and myositis, unspecified Acquired hypothyroidism Unspecified hypothyroidism Recurrent major depression in partial remission Major depressive disorder, recurrent episode, in partial or unspecified remission Restless legs Restless legs syndrome (RLS) Other symptoms and signs concerning food and fluid intake documented in this encounter Care Teams Chronic Manager Relationship Specialty Start Date End Date Eldon Koehler MD PCP - General 10/06/07 documented as of this encounter
--- OUTSIDE RECORDS SUMMARY | 2024-05-22 17:02 | XMS_ITS | Encounter Summary ---
Author Organization [facility] Address [address] [place] [address] Care Team Providers Care Reconnaissance Man Name Role Phone Eldon Koehler MD Primary Care Provider [phone] Reason for Visit * Reason Onset Date Comments Medication Refill 07/06/2015 Encounter Details Date Type Department Care Team (Late st Contact Info) Description 07/06/2015 Refill [facility] Internal Medicine [address] [address] Eldon Koehler MD [address] [place] [address] Chronic back pain (Primary Dx) Social History Tobacco Use Types Packs/Day Years Used Date Smoking Tobacco: Never Smokeless Tobacco: Never Alcohol Use Standard Drinks/Week Comments No 0 (1 standard drink = 0.6 oz pur e alcohol) Sex and Gender Information Value Date Recorded Sex Assigned at Not on file Gender Identity Not on file Sexual Orientation Not on file documented as of this encounter Miscellaneous Notes * Telephone Encounter - Glendy Ross - 07/06/2015 9:54 AM CST Spoke with pt aware rx ready in drawer ER APPRENTICE ARC * Telephone Encounter - Glendy Ross - 07/06/2015 9:00 AM CST EMILY 05/23/2015, NOV 08/29/2015 ER APPRENTICE ARC * Telephone Encounter - Glendy Ross - 07/06/2015 9:00 AM CSTFrom: Winifred Rodriguez To: Eldon Koehler MD Sent: 07/06/2015 7:14 AM WELDER APPRENTICE ARC Subject: Medication Renewal Request Original authorizing provider: MD Winifred Wilkes would like a refill of the following medications: HYDROcodone-acetaminophen (NORCO) 5-325 mg tablet [Eldon Koehler MD] Preferred pharmacy: Other - Can pickling drum operator around 11 am today () Comment: ER APPRENTICE ARC documented in this encounter Plan of Treatment Upcoming Encounters Date Type Department Care Team (Late st Contact Info) Description 07/27/2024 9:40 AM CDT Office Visit [facility] Primary Care [address] [place] [address] Eldon Koehler MD [address] [place] [address] [address] [place] [address] documented as of this encounter Visit Diagnoses Diagnosis Chronic back pain- Primary Backache, unspecified documented in this encounter Care Teams Reconnaissance Man Relationship Specialty Start Date End Date Eldon Koehler MD PCP - General 10/06/07 documented as of this encounter
--- OUTSIDE RECORDS SUMMARY | 2024-05-22 17:02 | XMS_ITS | Encounter Summary ---
Author Organization [facility] Address [address] [place] [address] Care Team Providers Care Sound Engineering Technician Name Role Phone Eldon Koehler MD Primary Care Provider [phone] Reason for Visit * Reason Onset Date Comments Medication Refill 03/15/2016 Encounter Details Date Type Department Care Team (Late st Contact Info) Description 03/15/2016 Refill [facility] Internal Medicine [address] [address] Eldon Koehler MD [address] [place] [address] Other specified hypothyroidism (Primary Dx) Social [...] * Telephone Encounter - Mitra Ward - 03/15/2016 1:48 PM CDT Next ov 04/01/16 documented in this encounter Plan of Treatment Upcoming Encounters Date Type Department Care Team (Late st Contact Info) Description 07/27/2024 9:40 AM CDT Office Visit [facility] Primary Care [address] [place] [address] Eldon Koehler MD [address] [place] [address] [address] [place] [address] documented as of this encounter Visit Diagnoses Diagnosis Other specified hypothyroidism- Primary documented in this encounter Care Teams Sound Engineering Technician Relationship Specialty Start Date End Date Eldon Koehler MD PCP - General 10/06/07 documented as of this encounter
--- OUTSIDE RECORDS SUMMARY | 2024-05-22 17:02 | XMS_ITS | Encounter Summary ---
Author Organization [facility] Address [address] [place] [address] Care Team Providers Care Approver Name Role Phone Eldon Koehler MD Primary Care Provider Reason for Referral * Outpatient Services (Routine) - Closed Specialty Diagnoses / Procedures Referred By Contac t Referred To Contact Radiology Diagnoses Generalized edema Procedures ECHO Eldon Caballero MD [address] [place] [phone] [facility] [address] [phone] Referral ID Status Reason Start Date Expiration Date V isits Requested Visits Authorized [id number] Closed [facility] 08/14/2015 09/13/2016 1 1 Reason for Visit * Outpatient Services (Routine) - Closed Specialty Diagnoses / Procedures Referred By Contac t Referred To Contact Radiology Diagnoses Generalized edema Procedures ECHO Eldon Caballero MD [address] [place] [phone] [facility] [address] [place] [address] [place] [phone] Referral ID Status Reason Start Date Expiration Date V isits Requested Visits Authorized [id number] Closed [facility] CTS 08/14/2015 09/13/2016 1 1 Encounter Details Date Type Department Care Team (Latest Contact Info) Description 08/16/2015 8:00 AM CDT - 08/16/2015 11:59 PM CDT Hospital Encounter [facility] Diagnostic Cardiology Services [facility] [address] [facility] [address] [place] [address] Eldon Koehler MD [address] [facility] [address] [place] [address] Discharge Disposition: Home or Self [...] Sig Dispensed Refills Start Date End Date HYDROcodone-acetaminoph en (NORCO) 5-325 mg tabletIndications:Chron ic back pain Take 1 Tablet by mouth every 4 hours as needed for Pain, Moderate. 90 Tablet 0 08/16/2015 11/16/2015 levothyroxine 150 mcg tabletIndications:Other specified hypothyroidism Take 1 Tablet (150 mcg) by mouth daily. 90 Tablet 1 08/16/2015 03/15/2016 tobramycin (TOBREX) 0.3 % solution Administer 1 Drop in both eyes every 4 hours. 5 mL 0 07/14/2015 04/03/2016 DULoxetine (CYMBALTA) 60 mg Capsule, Delayed Release(E.C.) Take 1 Capsule (60 mg) by mouth daily. 90 Capsule 2 06/12/2015 11/16/2015 capsaicin (ZOSTRIX HP) 0.075 % Cream Apply to affected area 4 times daily. 56.6 Gram 3 05/23/2015 04/03/2016 HYDROcodone-acetaminoph en (NORCO) 5-325 mg tablet Take 1 Tablet by mouth every 4 hours as needed for Pain, Moderate. Max Daily Amount: 6 Tablet 90 Tablet 0 05/16/2015 04/03/2016 albuterol HFA 90 mcg inhalerIndications:RTI (respiratory tract infection) Take 2 Puffs by inhalation 4 times daily as needed for Shortness of Breath. 8.5 Gram 5 04/11/2015 05/08/2018 albuterol HFA 90 mcg inhalerIndications:RTI (respiratory tract infection) Take 2 Puffs by inhalation 4 times daily as needed for Shortness of Breath. 8.5 Gram 4 04/11/2015 04/03/2016 celecoxib (CELEBREX) 200 mg capsule Take 1 Capsule (200 mg) by mouth 2 times daily. 180 Capsule 3 02/17/2015 11/16/2015 omeprazole (PRILOSEC) 20 mg Capsule, Delayed Release(E.C.)Indication s:Gastroesophageal reflux disease without esophagitis Take 1 Capsule (20 mg) by mouth daily. 90 Capsule 3 02/07/2015 11/16/2015 atorvastatin (LIPITOR) 20 mg tabletIndications:Other and unspecified hyperlipidemia Take 1 Tablet (20 mg) by mouth Daily LATE. 90 Tablet 3 12/30/2014 11/16/2015 pregabalin (LYRICA) 50 mg CapsuleIndications:Depr essive disorder, not elsewhere classified Take 1 Capsule (50 mg) by mouth 2 times daily. 180 Capsule 3 12/30/2014 11/16/2015 rOPINIRole (REQUIP) 2 mg Tablet Take 1 Tab (2 mg) by mouth daily at bedtime. 90 Tab 3 10/25/2014 08/26/2015 azithromycin (ZITHROMAX) 250 mg tabletIndications:RTI (respiratory tract infection) Take 2 tabs the first day and 1 tab days 2-5 1 Package 0 01/21/2014 03/07/2017 documented as of this encounter Plan of Treatment Upcoming Encounters Date Type Department Care Team (Late st Contact Info) Description 07/27/2024 9:40 AM CDT Office Visit [facility] Care [address] [place] [address] Eldon Koehler MD [address] [place] [address] [address] [place] [address] documented as of this encounter Procedures Procedure Name Priority Date/Time Associated Diagnosis Comments ECHO COMPLETE Routine 08/16/2015 8:46 AM CDT Generalized edema documented in this encounter Results * ECHO COMPLETE (08/16/2015 8:46 AM CDT) EJECTION FRACTION INTERFACE SYSTEM 08/16/2015 8:19 AM CDT Narrative INTERFACE SYSTEM - 08/16/2015 5:41 [place] [address] [email or web address] Transthoracic Echocardiography Patient: ? Winifred Rodriguez MRN: ? [id number] Study ID: ?[id number] Gender: ?F : ? 1950 Age: ? 65 Race: ?CAU Height ? 167.6cm Study Date: ?08/16/2015 Weight: ?139.3kg Access. #: ? [id number] BP: ?120 / 70 *Referring Physician:* Eldon Koehler *Ordering Physician:* ??Eldon Koehler Rn Lpn Lvn: ? LETICIA Indications: Edema. STUDY CONCLUSIONS: SUMMARY: - Left ventricle: The cavity size was normal. Wall thickness ??was increased in a pattern of mild LVH. Global systolic ??function was normal. Diastolic function assessment ??consistent with abnormal left ventricular relaxation ??(grade 1 diastolic dysfunction). Ejection fraction: 60% ??(MOD, 2-plane). - Left atrium: The atrium was normal in size. - Right ventricle: The cavity size was normal. Systolic ??function was normal. Cardiac Anatomy: LEFT VENTRICLE: ??The cavity size was normal. Wall thickness was increased in a pattern of mild LVH. Global systolic function was normal. Diastolic function assessment consistent with abnormal left ventricular relaxation (grade 1 diastolic dysfunction). AORTIC VALVE: ?? Structurally normal valve. Trileaflet. Doppler: ?? No significant regurgitation. ?VTI ratio of LVOT to aortic valve: 0.85. Valve area: 2.68cm\S\2(VTI). Indexed valve area: 1.02cm\S\2/m\S\2 (VTI). ?Mean gradient: 5mm Hg (S). Peak gradient: 11mm Hg (S). AORTA: ??Aortic root: The aortic root was normal in size. MITRAL VALVE: ?? Structurally normal valve. ?Doppler: ?? No significant regurgitation. ?Mean gradient: 2mm Hg (D). Peak gradient: 3mm Hg (D). LEFT ATRIUM: ??The atrium was normal in size. RIGHT VENTRICLE: ??The cavity size was normal. Systolic function was normal. PULMONIC VALVE: ?? Structurally normal valve. ?Doppler: No significant regurgitation. TRICUSPID VALVE: ?? Structurally normal valve. ?Doppler: No significant regurgitation. PULMONARY ARTERY: ?? Systolic pressure could not be estimated. RIGHT ATRIUM: ??The atrium was normal in size. PERICARDIUM: ??There was no pericardial effusion. 2D measurements ?Normal Left ventricle LV internal dimension, ED, chordal ? 47.2 mm ? 43-52 level, PLAX LV internal dimension, ES, chordal ? 31.6 mm ? 23-38 level, PLAX Fractional shortening, chordal level, ?33 % ?>29 PLAX LV posterior wall thickness, ED ?12.4 mm ? ------- IVS/LVPW ratio, ED ? 1.02 ?<1.3 Volume, ED, MOD, 2-plane ? 80 ml ? 55-101 Volume, ES, MOD, 2-plane ? 32 ml ? ------- Ejection fraction, MOD, 2-plane ?60 % ?------- Volume index, ED, MOD, 2-plane ? 30 ml/m\S\2 ?? ------- Volume index, ES, MOD, 2-plane ? 12 ml/m\S\2 ?? ------- Ventricular septum Septal thickness, ED ? 12.6 mm ? ------- LVOT Anterior-posterior diameter ? 2 mm ? ------- Area ? 3.14 cm\S\2 ? ------- Aorta Root diameter, ED ?31 mm ? ------- Left atrium Anterior-posterior dimension ? 34 mm ? ------- Anterior-posterior dimension index ? 1.29 cm/m\S\2 ?? <2.2 Doppler measurements ? Normal LVOT VTI, S ? 22.3 cm ? ------- Aortic valve Peak velocity, S ?164 cm/s ? ------- VTI, S ? 26.1 cm ? ------- Mean gradient, S ?5 mm Hg ?------- Peak gradient, S ? 11 mm Hg ?------- VTI ratio, LVOT/AV ? 0.85 ?------- Valve area, VTI ?2.68 cm\S\2 ? ------- Valve area index, VTI ?1.02 cm\S\2/m\S\2 ------- Mitral valve Peak E-wave velocity ? 87.9 cm/s ? ------- Peak A-wave velocity ? 93.8 cm/s ? ------- Deceleration time ? 203 ms ? 150-230 Mean gradient, D ?2 mm Hg ?------- Peak gradient, D ?3 mm Hg ?------- Peak E/A ratio ? 0.94 ?------- Pulmonic valve Peak velocity, S ?127 cm/s ? ------- Legend: Mean values are shown as u=mean value. Asterisk (*) toussaint values outside specified normal range. Procedure data: Procedure information: ??Transthoracic echocardiography. Scanning was performed from the parasternal, apical, and subcostal acoustic windows. ?Transthoracic echocardiography. ??Complete 2D, complete spectral Doppler, and color Doppler. ??Birthdate: ??Patient birthdate: 1950. ??Age: ??Patient is 65yr old. ??Sex: ??Gender: female. Height: ??Height: 167.6cm. Height: 66in. ??Weight: ??Weight: 139.3kg. Weight: 306.4lb. ??Body mass index: ??BMI: 49.6kg/m\S\2. ??Body surface area: ?BSA: 2.63m\S\2. ??Blood pressure: ? 120/70. ??Study date: ??Study date: August 16, 2015. ?Prepared and Electronically Authenticated Daniel Morrison MD [id number] Procedure Note Daniel Morrison MD - 08/16/[address] [place] [address] [email or web address] Transthoracic Echocardiography Patient: Winifred Rodriguez Study ID: [id number] Gender: F : 1950 Age: 65 Race: CAU Height 167.6cm Study Date: 08/16/2015 Weight: 139.3kg Access. #: [id number] BP: 120 / 70 *Referring Physician:* Eldon Koehler *Ordering Physician:* Eldon Koehler Rn Lpn Lvn: LETICIA Indications: Edema. STUDY CONCLUSIONS: SUMMARY: - Left ventricle: The cavity size was normal. Wall thickness was increased in a pattern of mild LVH. Global systolic function was normal. Diastolic function assessment consistent with abnormal left ventricular relaxation (grade 1 diastolic dysfunction). Ejection fraction: 60% (MOD, 2-plane). - Left atrium: The atrium was normal in size. - Right ventricle: The cavity size was normal. Systolic function was normal. Cardiac Anatomy: LEFT VENTRICLE: The cavity size was normal. Wall thickness was increased in a pattern of mild LVH. Global systolic function was normal. Diastolic function assessment consistent with abnormal left ventricular relaxation (grade 1 diastolic dysfunction). AORTIC VALVE: Structurally normal valve. Trileaflet. Doppler: No significant regurgitation. VTI ratio of LVOT to aortic valve: 0.85. Valve area: 2.68cm\S\2(VTI). Indexed valve area: 1.02cm\S\2/m\S\2 (VTI). Mean gradient: 5mm Hg (S). Peak gradient: 11mm Hg (S). AORTA: Aortic root: The aortic root was normal in size. MITRAL VALVE: Structurally normal valve. Doppler: No significant regurgitation. Mean gradient: 2mm Hg (D). Peak gradient: 3mm Hg (D). LEFT ATRIUM: The atrium was normal in size. RIGHT VENTRICLE: The cavity size was normal. Systolic function was normal. PULMONIC VALVE: Structurally normal valve. Doppler: No significant regurgitation. TRICUSPID VALVE: Structurally normal valve. Doppler: No significant regurgitation. PULMONARY ARTERY: Systolic pressure could not be estimated. RIGHT ATRIUM: The atrium was normal in size. PERICARDIUM: There was no pericardial effusion. 2D measurements Normal Left ventricle LV internal dimension, ED, chordal 47.2 mm 43-52 level, PLAX LV internal dimension, ES, chordal 31.6 mm 23-38 level, PLAX Fractional shortening, chordal level, 33 % >29 PLAX LV posterior wall thickness, ED 12.4 mm ------- IVS/LVPW ratio, ED 1.02 <1.3 Volume, ED, MOD, 2-plane 80 ml 55-101 Volume, ES, MOD, 2-plane 32 ml ------- Ejection fraction, MOD, 2-plane 60 % ------- Volume index, ED, MOD, 2-plane 30 ml/m\S\2 ------- Volume index, ES, MOD, 2-plane 12 ml/m\S\2 ------- Ventricular septum Septal thickness, ED 12.6 mm ------- LVOT Anterior-posterior diameter 2 mm ------- Area 3.14 cm\S\2 ------- Aorta Root diameter, ED 31 mm ------- Left atrium Anterior-posterior dimension 34 mm ------- Anterior-posterior dimension index 1.29 cm/m\S\2 <2.2 Doppler measurements Normal LVOT VTI, S 22.3 cm ------- Aortic valve Peak velocity, S 164 cm/s ------- VTI, S 26.1 cm ------- Mean gradient, S 5 mm Hg ------- Peak gradient, S 11 mm Hg ------- VTI ratio, LVOT/AV 0.85 ------- Valve area, VTI 2.68 cm\S\2 ------- Valve area index, VTI 1.02 cm\S\2/m\S\2 ------- Mitral valve Peak E-wave velocity 87.9 cm/s ------- Peak A-wave velocity 93.8 cm/s ------- Deceleration time 203 ms 150-230 Mean gradient, D 2 mm Hg ------- Peak gradient, D 3 mm Hg ------- Peak E/A ratio 0.94 ------- Pulmonic valve Peak velocity, S 127 cm/s ------- Legend: Mean values are shown as u=mean value. Asterisk (*) toussaint values outside specified normal range. Procedure data: Procedure information: Transthoracic echocardiography. Scanning was performed from the parasternal, apical, and subcostal acoustic windows. Transthoracic echocardiography. Complete 2D, complete spectral Doppler, and color Doppler. Birthdate: Patient birthdate: 1950. Age: Patient is 65yr old. Sex: Gender: female. Height: Height: 167.6cm. Height: 66in. Weight: Weight: 139.3kg. Weight: 306.4lb. Body mass index: BMI: 49.6kg/m\S\2. Body surface area: BSA: 2.63m\S\2. Blood pressure: 120/70. Study date: Study date: August 16, 2015. Prepared and Electronically Authenticated Daniel Morrison MD [id number] Eldon Koehler MD US ORDERABLES INTERFACE SYSTEM Refer to clinic/hospital department documented in this encounter Visit Diagnoses Diagnosis Generalized edema Edema documented in this encounter Care Teams Approver Relationship Specialty Start Date End Date Eldon Koehler MD PCP - General 5/27/08 documented as of this encounter
--- OUTSIDE RECORDS SUMMARY | 2024-05-22 17:02 | XMS_ITS | Encounter Summary ---
Author Organization [facility] Address [address] [place] [address] Care Team Providers Care Compounder Name Role Phone Eldon Koehler MD Primary Care Provider [phone] Reason for Visit * Reason Onset Date Comments Results 08/15/2015 Encounter Details Date Type Department Care Team (Late st Contact Info) Description 08/15/2015 Telephone [facility] Internal Medicine [address] [address] Eldon Koehler MD [address] [place] [address] Results Social History Tobacco Use Types [...] encounter Miscellaneous Notes * Telephone Encounter - Kailey Thapa - 08/15/2015 4:54 PM CDT Spoke with pt about results. * Telephone Encounter - Eldon Koehler MD - 08/15/2015 4:47 PM CDT Leg ultrasound, negative for clot, good news documented in this encounter Plan of Treatment Upcoming Encounters Date Type Department Care Team (Late st Contact Info) Description 07/27/2024 9:40 AM CDT Office Visit [facility] Care [address] [place] [address] Eldon Koehler MD [address] [place] [address] [address] [place] [address] documented as of this encounter Visit Diagnoses Not on filedocumented in this encounter Care Teams Compounder Relationship Specialty Start Date End Date Eldon Koehler MD PCP - General 10/06/07 documented as of this encounter
--- OUTSIDE RECORDS SUMMARY | 2024-05-22 17:02 | XMS_ITS | Encounter Summary ---
Author Organization [facility] Address [address] [place] [address] Care Team Providers Care Petroleum Inspector Name Role Phone Eldon Koehler MD Primary Care Provider [phone] Reason for Visit * Reason Onset Date Comments Medication Refill 11/16/2015 Encounter Details Date Type Department Care Team (Late st Contact Info) Description 11/16/2015 Refill [facility] Internal Medicine [address] [address] Eldon Koehler MD [address] [place] [address] Chronic back pain, unspecified back pain laterality, unspecified location (Primary Dx); Fibromyalgia Social History Tobacco Use Types Packs/Day [...] * Telephone Encounter - Mitra Ward - 11/16/2015 12:18 PM CDT Scripts in drawer. Spoke to pt. * Telephone Encounter - Glendy oRss - 11/16/2015 10:38 AM CDT NO FOV-EMILY 08/14/2015 documented in this encounter Plan of Treatment Upcoming Encounters Date Type Department Care Team (Late st Contact Info) Description 07/27/2024 9:40 AM CDT Office Visit [facility] Primary Care [address] [place] [address] Eldon Koehler MD [address] [place] [address] [address] [place] [address] documented as of this encounter Visit Diagnoses Diagnosis Chronic back pain, unspecified back pain laterality, unspecified location- Primary Fibromyalgia Mylagia and myositis, unspecified documented in this encounter Care Teams Petroleum Inspector Relationship Specialty Start Date End Date Eldon Koehler MD PCP - General 10/06/07 documented as of this encounter
--- OUTSIDE RECORDS SUMMARY | 2024-05-22 17:02 | XMS_ITS | Encounter Summary ---
Author Organization [facility] Address [address] [place] [address] Care Team Providers Care Funeral Driver Name Role Phone Eldon Koehler MD Primary Care Provider [phone] Encounter Details Date Type Department Care Team (Latest Contact Info) Description 08/14/2015 3:10 PM CDT - 08/14/2015 11:59 PM T Hospital Encounter [facility] Laboratory Services [address] [address] Eldon Koehler MD [address] [place] [phone] Discharge Disposition: Home or Self Care [...] Sig Dispensed Refills Start Date End Date doxycycline hyclate (VIBRAMYCIN) 100 mg tablet Take 1 Tablet (100 mg) by mouth 2 times daily. 20 Tablet 0 08/14/2015 08/16/2015 tobramycin (TOBREX) 0.3 % solution Administer 1 Drop in both eyes every 4 hours. 5 mL 0 07/14/2015 04/03/2016 HYDROcodone-acetaminoph en (NORCO) 5-325 mg tabletIndications:Chron ic back pain Take 1 Tablet by mouth every 4 hours as needed for Pain, Moderate. 90 Tablet 0 07/06/2015 08/16/2015 levothyroxine 150 mcg tabletIndications:Other specified hypothyroidism Take 1 Tablet (150 mcg) by mouth daily. 90 Tablet 0 06/16/2015 08/16/2015 DULoxetine (CYMBALTA) 60 mg Capsule, Delayed Release(E.C.) [...] Office Visit [facility] Primary Care [facility] [address] [facility] [address] [place] [address] Eldon Koehler MD [address] [facility] [address] [place] [address] documented as of this encounter Procedures Procedure Name Priority Date/Time Associated Diagnosis Comments CBC WITH DIFFERENTIAL Routine 08/14/2015 3:10 PM CDT Generalized edema Hidradenitis TSH Routine 08/14/2015 3:10 PM CDT Generalized edema COMPREHENSIVE METABOLIC PANEL Routine 08/14/2015 3:10 PM CDT Generalized edema documented in this encounter Results * TSH (08/14/2015 3:10 PM CDT) TSH 3.06 0.27 - 4.20 uIU/mL 08/14/2015 9:57 PM CDT [facility] Blood Venipuncture - L ab Collect / Unknown 08/14/2015 3:10 PM CDT 08/14/2015 3:10 PM CDT Eldon Koehler MD CHEMISTRY ORDERABLES [facility] CLIA# [id number] [address] [place] [address] * (ABNORMAL) COMPREHENSIVE METABOLIC PANEL (08/14/2015 3:10 PM CDT) SODIUM 139 136 - 145 mmol/L 08/14/2015 9:56 PM [facility] [employer] LABORATORY SERVICES [facility] POTASSIUM 4.3 3.5 - 5.0 mmol/L 08/14/2015 9:56 PM [facility] [employer] [facility] - [facility] CHLORIDE 99 98 - 107 mmol/L 08/14/2015 9:56 PM [facility] [employer] [facility] CO2 28 22 - 29 mmol/L 08/14/2015 9:56 PM [facility] [employer] [facility] CALCIUM 9.4 8.6 - 10.2 mg/dL 08/14/2015 9:56 PM [facility] [employer] [facility] BUN 10 8 - 23 mg/dL 08/14/2015 9:56 PM [facility] [employer] [facility] CREATININE 0.78 0.51 - 0.95 mg/dL 08/14/2015 9:56 PM [facility] [employer] [facility] GLUCOSE 176(H) 79 - 99 mg/dL 08/14/2015 9:56 PM [facility] [employer] [facility] TOTAL PROTEIN 7.5 6.7 - 8.6 g/dL 08/14/2015 9:56 PM [facility] [employer] [facility] ALBUMIN 4.1 3.5 - 5.2 g/dL 08/14/2015 9:56 PM [facility] [employer] [facility] BILIRUBIN TOTAL 0.3 0.2 - 1.1 mg/dL 08/14/2015 9:56 PM [facility] [employer] [facility] ALKALINE PHOSPHATASE 180(H) 35 - 104 U/L 08/14/2015 9:56 PM [facility] [employer] [facility] [place] AST 18 <33 U/L 08/14/2015 9:56 PM [employer] [facility]ORY [facility] - [facility] Comment:Grossly lipemic. ALT 22 <34 U/L 08/14/2015 9:56 PM [facility] [employer] LABORATORY SERVICES [facility] Comment:Grossly lipemic. GFR >60 >=60 mL/min/1.7 3 sq meter 08/14/2015 9:56 PM [facility] [employer] LABORATORY SERVICES [facility] Comment: eGFR has not been validated for [...] GFR, >60 >=60 mL/min/1.7 3 sq meter 08/14/2015 9:56 PM CDT [employer] LABORATORY SERVICES - [facility] ANION GAP 12 8 - 16 mmol/L 08/14/2015 9:56 PM CDT [employer] [facility]ATORY SERVICES - [facility] Blood Venipuncture - L ab Collect / Unknown 08/14/2015 3:10 PM CDT 08/14/2015 3:10 PM CDT Eldon Koehler MD CHEMISTRY ORDERABLES [facility]ORATORY SERVICES - [facility]# [id number] [address] [place] [id number] * (ABNORMAL) CBC WITH DIFFERENTIAL (08/14/2015 3:10 PM CDT) WBC 10.7(H) 4.0 - 9.8 K/uL 08/14/2015 9:49 PM CDT [employer] [facility]AT[facility] - [facility] RBC 4.76 3.90 - 4.90 M/uL 08/14/2015 9:49 PM CDT [employer] [facility] - [facility] HEMOGLOBIN 12.8 11.8 - 14.8 g/dL 08/14/2015 9:49 PM CDT [facility] LABORATORY SERVICES - [facility] HEMATOCRIT 42.0 35.5 - 44.0 % 08/14/2015 9:49 PM CDT [employer] [facility]ATORY SERVICES - [facility] MCV 88.2 82.0 - 99.0 fL 08/14/2015 9:49 PM CDT [facility]ORATORY SERVICES - [facility] MCH 26.9(L) 27.2 - 32.6 pg 08/14/2015 9:49 PM CDT [employer] [facility]ATORY SERVICES - [facility] MCHC 30.5(L) 31.5 - 35.5 g/dL 08/14/2015 9:49 PM CDT [employer] [facility] RDW 14.9(H) 11.5 - 14.5 % 08/14/2015 9:49 PM CDT [employer] [facility] - [facility] RDW-STDEV 49.7(H) 37.1 - 48.7 fL 08/14/2015 9:49 PM CDT [employer] [facility] - [facility] PLATELETS 347 140 - 350 K/uL 08/14/2015 9:49 PM CDT [employer] [facility] MPV 11.9 9.3 - 12.4 fL 08/14/2015 9:49 PM CDT [employer] [facility] NEUTROPHILS 65 45 - 70 % 08/14/2015 9:49 PM CDT [employer] [facility] LYMPHOCYTES 24 16 - 45 % 08/14/2015 9:49 PM CDT [employer] [facility] MONOCYTES 6 3 - 13 % 08/14/2015 9:49 PM CDT [employer] [facility] EOSINOPHILS 4 <=7 % 08/14/2015 9:49 PM CDT [employer] [facility] BASOPHILS 1 <=3 % 08/14/2015 9:49 PM CDT [employer] [facility] NEUTROPHIL ABSOLUTE 7.03(H) 1.90 - 7.00 K/uL 08/14/2015 9:49 PM CDT [employer] [facility] LYMPHOCYTE ABSOLUTE 2.53 0.70 - 4.50 K/uL 08/14/2015 9:49 PM CDT [employer] [facility] MONOCYTE ABSOLUTE 0.69 0.10 - 1.30 K/uL 08/14/2015 9:49 PM CDT [employer] [facility] EOSINOPHIL ABSOLUTE 0.38 <0.70 K/uL 08/14/2015 9:49 PM CDT [employer] [facility] BASOPHILS ABSOLUTE 0.07 <=0.20 K/uL 08/14/2015 9:49 PM CDT [employer] [facility] IMMATURE GRANULOCYTES 0 <=0 % 08/14/2015 9:49 PM CDT [employer] [facility] SERVICES - . [facility] IMMATURE GRANULOCYTES ABSOLUTE 0.04(H) 0.00 - 0.03 K/uL 08/14/2015 9:49 PM CDT [facility] Blood Venipuncture - L ab Collect / Unknown 08/14/2015 3:10 PM CDT 08/14/2015 3:10 PM CDT Eldon Koehler MD HEMATOLOGY ORDERABLE S [facility]ATORY [facility] CLIA# [id number] [address] [facility] [place] [address] documented in this encounter Visit Diagnoses Diagnosis Generalized edema Edema Hidradenitis documented in this encounter Care Teams Funeral Driver Relationship Specialty Start Date End Date Eldon Koehler MD PCP - General 10/06/07 documented as of this encounter
--- OUTSIDE RECORDS SUMMARY | 2024-05-22 17:02 | XMS_ITS | Encounter Summary ---
Author Organization [facility] Address [address] [place] [address] Care Team Providers Care Genetic Counselor Name Role Phone Eldon Koehler MD Primary Care Provider [phone] Reason for Referral * Outpatient Services (Urgent) - Closed Specialty Diagnoses / Procedures Referred By Contac t Referred To Contact Radiology Diagnoses Generalized edema Calf pain, left Procedures US VENOUS DOPPLER LEG LEFT Eldon Koehler MD [address] [place] [phone] [facility] Di[facility] Vasc [facility] [address] Referral ID Status Reason Start Date Expiration Date V isits Requested Visits Authorized [id number] Closed STL CTS 08/14/2015 09/13/2016 1 1 * Outpatient Services (Routine) - Closed Specialty Diagnoses / Procedures Referred By Contac t Referred To Contact Radiology Diagnoses Generalized edema Procedures ECHO COMPLETE Eldon Koehler MD [address] [place] [address] [address] [place] [address] [address] [place] [address] Referral ID Status Reason Start Date Expiration Date V isits Requested Visits Authorized [id number] Closed STL CTS 08/14/2015 09/13/2016 1 1 Reason for Visit * Reason Comments Other lump under rt armpit Thyroid Disorder (office visit) Medication Refill Encounter Details Date Type Department Care Team (Latest Contact Info) Description 08/14/2015 2:30 PM CDT Office Visit [facility] Internal Medicine [address] [address] Eldon Koehler MD [address] [place] [phone] Generalized edema (Primary Dx); Calf pain, left; Hypothyroidism, unspecified hypothyroidism type; Hidradenitis Social History Tobacco Use Types Packs/Day Years [...] Reading Time Taken Comments Blood Pressure 130/80 08/14/2015 2:38 PM CDT Pulse - - Temperature 36.8 ??C (98.3 ??F) 08/14/2015 2:38 PM CD T Respiratory Rate - - Oxygen Saturation - - Inhaled Oxygen Concentration - - Weight 139.3 kg (307 lb) 08/14/2015 2:38 PM CDT Height 167.6 cm (5' 6 ) 08/14/2015 2:38 PM CDT Body Mass Index 49.55 08/14/2015 2:38 PM CDT documented in this encounter Progress Notes * Eldon Koehler MD - 08/14/2015 5:49 PM CDT Winifred Batistahayleybelinda, a 65 y.o. female. Had tkr Ongoing lle swelling Some on right as well Retaining fluid Lump right axilla past few days Med reviewed Lab reviewd Pain issues reviewed Patient Active Problem List Diagnosis Code ??? Hyperlipemia E78.5 ??? DEPRESSIVE DISORDER NEC F32.9 ??? OSTEOARTHROS NOS-UNSPEC M19.90 ??? Hypothyroidism E03.9 ??? Headache R51 ??? Unspecified Backache M54.9 ??? Unspecified Asthma J45.909 ??? Unspecified Sleep Apnea G47.30 ??? Impaired Fasting Glucose R73.01 ??? Restless Leg Syndrome G25.81 ??? GERD (gastroesophageal reflux disease) K21.9 ??? Fibromyalgia M79.7 ??? 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 Meralgia paresthetica G57.10 History Social History ??? Marital Status: Spouse Name: N/A ??? Number of Children: N/A ??? Years of Education: N/A Occupational History ??? Not on file. Social History Main Topics ??? Smoking status: Never Smoker ??? Smokeless tobacco: Never Used ??? Alcohol Use: No ??? Drug Use: No ??? Sexual Activity: Not on file Other Topics Concern ??? Not on file Social History Narrative REVIEW OF SYSTEMS Review of Systems Constitutional: fatigue ok HENT: Negative for congestion and sore throat. Respiratory: Negative for cough, sputum production, shortness of breath and wheezing. Cardiovascular: Negative for chest pain, palpitations, orthopnea and leg swelling. Gastrointestinal: Negative for abdominal pain, diarrhea, constipation and blood in stool. Genitourinary: Negative for dysuria. Normal Exam for Routine Visits: \Blood pressure 130/80, temperature 98.3 ??F (36.8 ??C), temperature source Oral, height 5' 6 (1.676 m), weight 139.254 kg (307 lb). General appearanceobese nadHead: Normocephalic, without obvious abnormality, atraumatic Eyes: conjunctivae/corneas clear. PERRLA, EOM's intact. Fundi benign. Lids appear normal. Ears: normal TM's (shiny [...] sounds. Skin: Skin color, texture, turgor normal. Right axillae hidradenitis, no ln Lymphatics: No focal or generalized lymphadenopathy. neck Ext 1+ edema right 2+ left Mood stable Encounter Diagnoses Name Primary? Generalized edema Yes ??? Calf pain, left ??? Hypothyroidism, unspecified hypothyroidism type ??? Hidradenitis Check thyroid Check doppler Lasix prn rx hidradenitis Risk of side effects of antibiotics reviewed, call if diarrhea rash, facial swelling or other. Out of sun on med advised Med reviewed bmi reviewed, wt loss advised PLAN: Orders Placed This Encounter ??? US VENOUS DOPPLER LEG LEFT ??? CBC WITH DIFFERENTIAL (Favorites) ??? COMPREHENSIVE METABOLIC PANEL (Favorites) ??? TSH (Favorites) ??? ECHO COMPLETE: Cardiac Study Only; Chest Pain, Dyspnea, Palpitations, CVA, Syncope, Murmur, Pericardial effusion ??? doxycycline hyclate (VIBRAMYCIN) 100 mg tablet ??? furosemide (LASIX) 20 mg tablet documented in this encounter Plan of Treatment Upcoming Encounters Date Type Department Care Team (Late st Contact Info) Description 07/27/2024 9:40 AM CDT Office Visit [facility] Primary Care [address] [place] [address] Eldon Koehler MD [address] [place] [address] [place] [address] documented as of this encounter Results * ECHO COMPLETE (08/16/2015 8:46 AM CDT) EJECTION FRACTION INTERFACE SYSTEM 08/16/2015 8:19 AM CDT Narrative INTERFACE SYSTEM - 08/16/2015 5:41 PM CDT [address] [address] [email or web address] Echocardiography Patient: ? Winifred Rodriguez MRN: ? [id number] Study ID: ?[id number] Gender: ?F : ? 1950 Age: ? 65 Race: ?CAU Height ? 167.6cm Study Date: ?08/16/2015 Weight: ?139.3kg Access. #: ? [id number] BP: ?120 / 70 *Referring Physician:* Eldon Koehler *Ordering Physician:* ??Eldon Koehler Dough Cutter: ? LETICIA Indications: Edema. STUDY CONCLUSIONS: SUMMARY: [...] ?Prepared and Electronically Authenticated Daniel Morrison MD [id number] Procedure Note Daniel Morirson MD - 08/16/2015 [place] [address] [email or web address] Transthoracic Echocardiography Patient: Winifred Rodriguez Study ID: [id number] Gender: F : 1950 Age: 65 Race: CAU Height 167.6cm Study Date: 08/16/2015 Weight: 139.3kg Access. #: [id number] BP: 120 / 70 *Referring Physician:* Eldon Koehler *Ordering Physician:* Eldon Koehler Dough Cutter: LETICIA Indications: Edema. STUDY CONCLUSIONS: SUMMARY: - [...] Prepared and Electronically Authenticated Daniel Morrison MD [id number] Eldon Koehler MD US ORDERABLES INTERFACE SYSTEM Refer to clinic/hospital department * US VENOUS DOPPLER LEG LEFT (08/15/2015 8:02 AM CDT) Anatomical Region Laterality Modality Lower Extremity Ultrasound 08/15/2015 7:53 AM CDT Narrative 08/15/2015 2:31 PM CDT [address] [address] [email or web address] Venous Exam Limited Lower Extremity Duplex Patient: ? Winifred Rodirguez MRN: ? [id number] Study ID: ?[id number] Gender: ?F : ? 1950 Age: ? 65 Race: ?[facility] Height Study Date: ?08/15/2015 Weight: Access. #: ? [id number] *Referring Physician:* Eldon Koehler *Ordering Physician:* ??Eldon Koehler *Dough Cutter:* History: ?? Left lower extremity pain. ??Swelling of the left lower extremity. No previous DVT. ??PMH: ??No prior study is available for comparison. ??Risk factors: ??Obese. Study data: ?? Study status: ??Routine. ?Left lower extremity venous duplex evaluation. ? Doppler flow study including spectral analysis, color and hooper scale imaging. Birthdate: ??Patient birthdate: 1950. ??Age: ??Patient is 65yr old. ??Sex: ??Gender: female. ??Study date: ??Study date: 15-Aug-2015. ??Location: ??Vascular laboratory. ??Patient status: ??Outpatient. Impressions No evidence of deep or superficial vein thrombosis involving the left lower extremity Tables: Venous flow: - Left common femoral - Patent Phasic; spontaneous; normal ??augmentation; compressible; no reflux - Left femoral - Patent Phasic; spontaneous; normal ??augmentation; compressible; no reflux - Left profunda femoral - Patent Phasic; spontaneous; normal ??augmentation; compressible - Left popliteal - Patent Phasic; spontaneous; normal ??augmentation; compressible; no reflux - Left posterior tibial - Patent Compressible - Left peroneal - Patent Compressible - Right common femoral - Patent Phasic; spontaneous; normal ??augmentation; compressible; no reflux Prepared and Electronically Authenticated Joaquin Lucio [id number] Procedure Note Joaquin Lucio MD - 08/15/[address] [address] [email or web address]/[email or web address] Venous Exam Limited Lower Extremity Duplex Patient: Winifred Rodriguez Study ID: [id number] Gender: F : 1950 Age: 65 Race: CAU Height Study Date: 08/15/2015 Weight: Access. #: [id number] *Referring Physician:Eldon WallaceOrdering Physician:Eldon WallaceDough Cutter:* History: Left lower extremity pain. Swelling of the left lower extremity. No previous DVT. PMH: No prior study is available for comparison. Risk factors: Obese. Study data: Study status: Routine. Left lower extremity venous duplex evaluation. Doppler flow study including spectral analysis, color and hooper scale imaging. Birthdate: Patient birthdate: 1950. Age: Patient is 65yr old. Sex: Gender: female. Study date: Study date: 15-Aug-2015. Location: Vascular laboratory. Patient status: Outpatient. Impressions No evidence of deep or superficial vein thrombosis involving the left lower extremity Tables: Venous flow: - Left common femoral - Patent Phasic; spontaneous; normal augmentation; compressible; no reflux - Left femoral - Patent Phasic; spontaneous; normal augmentation; compressible; no reflux - Left profunda femoral - Patent Phasic; spontaneous; normal augmentation; compressible - Left popliteal - Patent Phasic; spontaneous; normal augmentation; compressible; no reflux - Left posterior tibial - Patent Compressible - Left peroneal - Patent Compressible - Right common femoral - Patent Phasic; spontaneous; normal augmentation; compressible; no reflux Prepared and Electronically Authenticated Joaquin Lucio [id number] Eldon Koehler MD US ORDERABLES * TSH (08/14/2015 3:10 PM CDT) TSH 3.06 0.27 - 4.20 uIU/mL 08/14/2015 9:57 PM CDT [facility] Blood Venipuncture - L ab Collect / Unknown 08/14/2015 3:10 PM CDT 08/14/2015 3:10 PM CDT Eldon Koehler MD CHEMISTRY ORDERABLES [facility]# [id number] [address] [place] [address] [place], [place] [id number] * (ABNORMAL) COMPREHENSIVE METABOLIC PANEL (08/14/2015 3:10 PM CDT) SODIUM 139 136 - 145 mmol/L 08/14/2015 9:56 PM CDT [facility] POTASSIUM 4.3 3.5 - 5.0 mmol/L 08/14/2015 9:[address] CHLORIDE 99 98 - 107 mmol/L 08/14/2015 9:56 PM [facility] CO2 28 22 - 29 mmol/L 08/14/2015 9:56 PM [facility] CALCIUM 9.4 8.6 - 10.2 mg/dL 08/14/2015 9:56 PM [facility] BUN 10 8 - 23 mg/dL 08/14/2015 9:56 PM [facility] CREATININE 0.78 0.51 - 0.95 mg/dL 08/14/2015 9:56 PM [facility] GLUCOSE 176(H) 79 - 99 mg/dL 08/14/2015 9:56 PM [facility] TOTAL PROTEIN 7.5 6.7 - 8.6 g/dL 08/14/2015 9:56 PM [facility] ALBUMIN 4.1 3.5 - 5.2 g/dL 08/14/2015 9:56 PM [facility] BILIRUBIN TOTAL 0.3 0.2 - 1.1 mg/dL 08/14/2015 9:56 PM [facility] ALKALINE PHOSPHATASE 180(H) 35 - 104 U/L 08/14/2015 9:56 PM [facility] - . [facility] AST 18 <33 U/L 08/14/2015 9:56 PM [facility] Comment:Grossly lipemic. ALT 22 <34 U/L 08/14/2015 9:56 PM [facility] Comment:Grossly lipemic. GFR >60 >=60 mL/min/1.7 3 sq meter 08/14/2015 9:56 PM [facility] Comment: eGFR has not been validated [...] 3 sq meter 08/14/2015 9:56 PM CDT [facility] ANION GAP 12 8 - 16 mmol/L 08/14/2015 9:56 PM CDT [facility] Blood Venipuncture - L ab Collect / Unknown 08/14/2015 3:10 PM CDT 08/14/2015 3:10 PM CDT Eldon Koehler MD CHEMISTRY ORDERABLES [facility] CLIA# [id number] [facility] [place] [address] * (ABNORMAL) CBC WITH DIFFERENTIAL (08/14/2015 3:10 PM CDT) WBC 10.7(H) 4.0 - 9.8 K/uL 08/14/2015 9:49 PM CDT [facility] RBC 4.76 3.90 - 4.90 M/uL 08/14/2015 9:49 PM CDT [facility] HEMOGLOBIN 12.8 11.8 - 14.8 g/dL 08/14/2015 9:49 PM CDT [facility] HEMATOCRIT 42.0 35.5 - 44.0 % 08/14/2015 9:49 PM CDT [facility] MCV 88.2 82.0 - 99.0 fL 08/14/2015 9:49 PM CDT [facility] MCH 26.9(L) 27.2 - 32.6 pg 08/14/2015 9:49 PM CDT [facility] MCHC 30.5(L) 31.5 - 35.5 g/dL 08/14/2015 9:49 PM CDT [facility] RDW 14.9(H) 11.5 - 14.5 % 08/14/2015 9:49 PM CDT [facility] RDW-STDEV 49.7(H) 37.1 - 48.7 fL 08/14/2015 9:49 PM CDT [facility] PLATELETS 347 140 - 350 K/uL 08/14/2015 9:49 PM CDT [facility] MPV 11.9 9.3 - 12.4 fL 08/14/2015 9:49 PM CDT [facility] NEUTROPHILS 65 45 - 70 % 08/14/2015 9:49 PM CDT [facility] LYMPHOCYTES 24 16 - 45 % 08/14/2015 9:49 PM CDT [facility] MONOCYTES 6 3 - 13 % 08/14/2015 9:49 PM CDT [facility] EOSINOPHILS 4 <=7 % 08/14/2015 9:49 PM CDT [facility] BASOPHILS 1 <=3 % 08/14/2015 9:49 PM CDT [facility] [place] NEUTROPHIL ABSOLUTE 7.03(H) 1.90 - 7.00 K/uL 08/14/2015 9:49 PM CDT [facility] [place] LYMPHOCYTE ABSOLUTE 2.53 0.70 - 4.50 K/uL 08/14/2015 9:49 PM CDT [facility] MONOCYTE ABSOLUTE 0.69 0.10 - 1.30 K/uL 08/14/2015 9:49 PM CDT [facility] EOSINOPHIL ABSOLUTE 0.38 <0.70 K/uL 08/14/2015 9:49 PM CDT [facility] [place] BASOPHILS ABSOLUTE 0.07 <=0.20 K/uL 08/14/2015 9:49 PM CDT [facility] IMMATURE GRANULOCYTES 0 <=0 % 08/14/2015 9:49 PM CDT [facility] - . [facility] IMMATURE GRANULOCYTES ABSOLUTE 0.04(H) 0.00 - 0.03 K/uL 08/14/2015 9:49 PM CDT [facility] Blood Venipuncture - L ab Collect / Unknown 08/14/2015 3:10 PM CDT 08/14/2015 3:10 PM CDT Eldon Koehler MD HEMATOLOGY ORDERABLE S Performing Organization Address City/[facility] Co de Phone Number [facility]# [id number] [address] [place] [address] documented in this encounter Visit Diagnoses Diagnosis Generalized edema- Primary Edema Calf pain, left Hypothyroidism, unspecified hypothyroidism type Hidradenitis Generalized edema Edema Calf pain, left Generalized edema Edema documented in this encounter Care Teams Genetic Counselor Relationship Specialty Start Date End Date Eldon Koehler MD PCP - General 10/06/07 documented as of this encounter
--- OUTSIDE RECORDS SUMMARY | 2024-05-22 17:02 | XMS_ITS | Encounter Summary ---
Author Organization [facility] Address [address] [place] [address] Care Team Providers Care Community Music Therapist Name Role Phone Eldon Koehler MD Primary Care Provider Encounter Details Date Type Department Care Team (Late st Contact Info) Description 02/27/2016 Abstract [facility] Internal Medicine [address] [phone] Eldon Koehler MD [address] [place] [address] [address] [place] [address] Social History Tobacco Use Types [...] Office Visit [facility] Primary Care [address] [place] [address] Eldon Koehler MD [address] [place] [address] [address] [place] [address] documented as of this encounter Visit Diagnoses Not on filedocumented in this encounter Care Teams Community Music Therapist Relationship Specialty Start Date End Date Eldon Koehler MD PCP - General 10/06/07 documented as of this encounter
--- OUTSIDE RECORDS SUMMARY | 2024-05-22 17:02 | XMS_ITS | Encounter Summary ---
Author Organization [facility] Address [address] [place] [address] Care Team Providers Care Plate Worker Name Role Phone Eldon Koehler MD Primary Care Provider Reason for Referral * Eval and Treat (Routine) - Closed Specialty Diagnoses / Procedures Referred By Carmen t Referred To Contact Nutrition Diagnoses Morbid obesity, unspecified obesity type Eldon Koehler MD [address] [place] [address] [facility] Nutrition Services [address] [place] [address] Referral ID Status Reason Start Date Expiration Date V isits Requested Visits Authorized [id number] Closed CRS To Schedule (STL) 08/12/2016 08/13/2017 1 1 * Eval and Treat (Routine) - Closed Specialty Diagnoses / Procedures Referred By Contdorian t Referred To Contact Bariatrics / General Surgery Diagnoses Morbid obesity, unspecified obesity type Eldon Koehler MD [address] [address] [facility] Surgical Spec [place] [address] [facility] [address] [place] [address] Referral ID Status Reason Start Date Expiration Date V isits Requested Visits Authorized [id number] Closed CRS To Schedule (STL) 08/12/2016 08/12/2017 1 1 Reason for Visit * Reason Comments Question about wt lose surger y Encounter Details Date Type Department Care Team (Latest Contact Info) Description 08/12/2016 11:30 AM CDT Office Visit [facility] Internal Medicine [address] [address] Eldon Koehler MD [address] [place] [address] Morbid obesity, unspecified obesity type (Primary Dx); Impaired fasting glucose; Fibromyalgia; Other osteoarthritis involving multiple joints; Other specified hypothyroidism; Restless leg syndrome; Other hyperlipidemia Social History Tobacco Use Types [...] Reading Time Taken Comments Blood Pressure 138/80 08/12/2016 11:41 AM CDT Pulse - - Temperature - - Respiratory Rate - - Oxygen Saturation - - Inhaled Oxygen Concentration - - Weight 135.6 kg (299 lb) 08/12/2016 11:41 AM CDT Height 167.6 cm (5' 6 ) 08/12/2016 11:41 AM CDT Body Mass Index 48.26 08/12/2016 11:41 AM CDT documented in this encounter Progress Notes * Eldon Koehler MD - 08/12/2016 11:57 AM CDT Subjective: Winifred Rodriguez is a 66 y.o. female. Pt wt issues reviewed Gained again Sleep apnea , benefits from cpap but driving her a bit nuts to wear it Pain issues ongoing Knee pain Gluc issues reviwed Chol on med depn on med Med reviewed Last lab reviewed Recent dental issues, dry socket Patient Active Problem List Diagnosis Date Noted [...] two times daily 180 Capsule 1 ??? levothyroxine 150 mcg tablet Take 1 Tablet (150 mcg) by mouth daily. 90 Tablet 1 ??? pregabalin (LYRICA) 50 mg Capsule Take 1 Capsule (50 mg) by mouth 2 times daily. 180 Capsule 0 ??? DULoxetine (CYMBALTA) 60 mg Capsule, Delayed Release(E.C.) Take 1 Capsule (60 mg) by mouth daily. 90 Capsule 1 ??? albuterol HFA 90 mcg inhaler Take 2 Puffs by inhalation 4 times daily as needed for Shortness of Breath. 8.5 Gram 5 ??? montelukast (SINGULAIR) 10 mg tablet Take 1 Tab by mouth daily. 90 Tab 3 ??? cyanocobalamin (VITAMIN B-12) 1,000 mcg Oral Tab Take 1,000 mcg by mouth daily. ??? Cholecalciferol, Vitamin D3, (VITAMIN D) 1,000 unit Oral Tab Take by mouth daily. ??? [DISCONTINUED] HYDROcodone-acetaminophen (NORCO) 5-325 mg tablet Take 1 Tablet by mouth every 4hours as needed for Pain, Moderate. 90 Tablet 0 ??? LORazepam (ATIVAN) 0.5 mg tablet Take 1 Tablet (0.5 mg) by mouth see administration instructions 1 tab before mri take another if still anxious. 2 Tablet 0 ??? furosemide (LASIX) 20 mg tablet Take 1 Tablet (20 mg) by mouth daily. 30 Tablet 3 No current facility-administered medications on file prior to visit. Allergies Allergen Reactions ??? Clindamycin Rash and Itching ??? Codeine Nausea and Vomiting Past Medical History: Diagnosis Date ??? Arthropathy, unspecified, site unspecified ??? Asthma ??? GERD (gastroesophageal reflux disease) ??? Hypothyroidism ??? Injury of back ??? Obstructive sleep apnea (adult) (pediatric) cpap at night ??? Unspecified disorder of lipoid metabolism ??? Unspecified essential hypertension Past Surgical History: Procedure Laterality Date ??? HX BACK SURGERY ??? HX CHOLECYSTECTOMY ??? HX COLONOSCOPY ??? HX SKIN BIOPSY ??? OK COLONOSCOPY FLX DX W/COLLJ SPEC WHEN PFRMD N/A 03/15/2015 COLONOSCOPY performed by Osei Sutton MD at [facility] GI LAB Family History Problem Relation Age of Onset ??? Colon Cancer Mother Social History Substance Use Topics ??? Smoking status: Never Smoker ??? Smokeless tobacco: Never Used ??? Alcohol use No Review of Systems: During the review of systems, the following significant history is obtained from the patient: Review of Systems - General ROS: positive for - weight gain Psychological ROS: positive for - anxiety Endocrine [...] skin rashes or unusual skin lesions Exam/Objective: Visit Vitals ??? BP 138/80 (BP Location: Right arm, Patient Position (BP): Sitting, BP Cuff Size: Large Adult) ??? Ht 5' 6 (1.676 m) ??? Wt 135.6 kg (299 lb) ??? BMI 48.26 kg/m2 General appearance: over wt nad Head: [...] Assessment and Plan: ASSESSMENT: ICD-10-CM ICD-9-CM 1. Morbid obesity, unspecified obesity type E66.01 278.01 AMB REFERRAL TO BARIATRIC SURGERY AMB REFERRAL TO CLINICAL NURSING MANAGER CANCELED: AMB REFERRAL TO CLINICAL NURSING MANAGER 2. Impaired fasting glucose R73.01 790.21 HEMOGLOBIN A1C HEMOGLOBIN A1C 3. Fibromyalgia M79.7 729.1 CBC WITH DIFFERENTIAL CBC WITH DIFFERENTIAL 4. Other osteoarthritis involving multiple joints M15.8 715.89 5. Other specified hypothyroidism E03.8 244.8 6. Restless leg syndrome G25.81 333.94 7. Other hyperlipidemia E78.4 272.4 COMPREHENSIVE METABOLIC PANEL TSH CHOLESTEROL TOTAL COMPREHENSIVE METABOLIC PANEL TSH CHOLESTEROL TOTAL BMI PLAN OF CARE Normal BMI ranges: 18-64 yrs: > or = 18.5 and < 25 65 yrs and older: > or = 23 and < 30 Body mass index is 48.26 kg/(m^2). Abnormal high BMI: patient counseled on lifestyle modifications including weight loss and daily exercise. Weight management options discussed. Discussed surgery again Gluc rechekc lab rls cont med Chronic pain --pt off med Pain med issues reviewed Cont statin no effect on myalgias Recheck lab Gluc issues reviewed Myalgia advise fu rheum has referral sleepapnea cont cpap PLAN: Orders Placed This Encounter ??? CBC WITH DIFFERENTIAL (Favorites) ??? COMPREHENSIVE METABOLIC PANEL (Favorites) ??? HEMOGLOBIN A1C (Favorites) ??? TSH (Favorites) ??? CHOLESTEROL TOTAL ??? Generic Referral to Bariatric Surgery ??? Generic Referral to Tool Die Maker Appropriate medications prescribed Appropriate patient instructions provided Follow-up as I have indicated. Medications and options explained to include common side effects. Understanding of medications, course, diagnosis, and expectations were expressed by patient/guardian. documented in this encounter Plan of Treatment Upcoming Encounters Date Type Department Care Team (Late st Contact Info) Description 07/27/2024 9:40 AM CDT Office Visit [facility] Primary Care [address] [place] [address] Eldon Koehler MD [address] [place] [address] [address] [place] [address] Scheduled Referrals Name Type Priority Associated Diagnoses Orde r Schedule AMB REFERRAL TO BARIATRIC SURGERY Outpatient Referral Routine Morbid obesity, unspecified obesity type Ordered: 08/12/2016 AMB REFERRAL TO CLINICAL NURSING MANAGER Outpatient Referral Routine Morbid obesity, unspecified obesity type Ordered: 08/12/2016 documented as of this encounter Procedures Procedure Name Priority Date/Time Associated Diagnosis Comments CBC WITH DIFFERENTIAL Routine 11/05/2016 3:05 AM CDT Fibromyalgia TSH Routine 11/05/2016 3:05 AM CDT Other hyperlipidemia HEMOGLOBIN A1C Routine 11/05/2016 3:05 AM CDT Impaired fasting glucose CHOLESTEROL TOTAL Routine 11/05/2016 3:0 5 AM CDT Other hyperlipidemia COMPREHENSIVE METABOLIC PANEL Routine 11/05/2016 3:05 AM CDT Other hyperlipidemia documented in this encounter Results * CHOLESTEROL TOTAL (11/05/2016 3:05 AM CDT) Pathologist [facility] CHOLESTEROL 158 125 - 200 mg/dL [facility] [employer] [facility] Comment: Test Performed at: [employer] [facility] ??[address] MARY ANN JACOBO DO,MPH Blood 11/05/2016 3:05 AM CDT Eldon Koehler MD CHEMISTRY ORDERABLES Performing Organization Address City/[facility] Co de Phone Number [facility] [address] [place] [address] * TSH (11/05/2016 3:05 AM CDT) Pathologist [facility] TSH 0.74 0.40 - 4.50 mIU/L [facility] [employer] [facility] Comment: Test Performed at: [employer] [facility] ??[phone] MARY ANN JACOBO DO,MPH Blood 11/05/2016 3:05 AM CDT Eldon Koehler MD CHEMISTRY ORDERABLES Performing Organization Address [facility] Co de Phone Number [employer] [facility] [address] [place] [address] * (ABNORMAL) HEMOGLOBIN A1C (11/05/2016 3:05 AM CDT) [facility] HEMOGLOBIN A1C 5.9(H) <5.7 % of total Hgb [facility] Comment: For someone without known diabetes, [...] of diabetes for children. Test Performed at: [employer] [address] [place], [place] ??[address] MARY ANN JACOBO DO,MPH Blood 11/05/2016 3:05 AM CDT Eldon Koehler MD CHEMISTRY ORDERABLES [employer] [facility] [address] [place] [address] * (ABNORMAL) COMPREHENSIVE METABOLIC PANEL (11/05/2016 3:05 AM CDT) GLUCOSE 107(H) 65 - 99 mg/dL [facility] [employer] [facility] Comment: ? Fasting reference interval For someone without known diabetes, a glucose value between 100 and 125 mg/dL is consistent with prediabetes and should be confirmed with a follow-up test. BUN 14 7 - 25 mg/dL [facility] [employer] [facility] CREATININE 0.70 0.50 - 0.99 mg/dL [facility] [employer] [facility] Comment: For patients >49 years of age, the reference limit for Creatinine is approximately 13% higher for people identified as -[place]. GFR 92 > OR = 60 mL/min/1 .73m2 [facility] [employer] [facility] GFR, 106 > OR = 60 mL/min/1 .73m2 [facility] [employer] . [facility] BUN/CREAT RATIO NOT APPLICABLE 6 - 22 (calc) [facility] [employer] . [facility] SODIUM 142 135 - 146 mmol/L [facility] [employer] . [facility] POTASSIUM 4.5 3.5 - 5.3 mmol/L [facility] [employer] . [facility] CHLORIDE 106 98 - 110 mmol/L [facility] [employer] . [facility] CO2 29 20 - 31 mmol/L [facility] [employer] . [facility] CALCIUM 9.1 8.6 - 10.4 mg/dL [facility] [employer] [facility] TOTAL PROTEIN 6.6 6.1 - 8.1 g/dL [facility] [employer] . [facility] ALBUMIN 4.0 3.6 - 5.1 g/dL [facility] [employer] . [facility] GLOBULIN 2.6 1.9 - 3.7 g/dL (calc) [facility] DIAGNOSTICS . [facility] ALBUMIN/GLOBULIN RATIO 1.5 1.0 - 2.5 (calc) [facility] [employer] . [facility] BILIRUBIN TOTAL 0.6 0.2 - 1.2 mg/dL [facility] DIAGNOSTICS [facility] ALKALINE PHOSPHATASE 166(H) 33 - 130 U/L [facility] AST 14 10 - 35 U/L [facility] ALT 15 6 - 29 U/L [facility] Comment: Test Performed at: [employer] [address] [place], [place] ??[address] MARY ANN JACOBO DO,MPH Blood 11/05/2016 3:05 AM CDT Eldon Koehler MD CHEMISTRY ORDERABLES [facility] [address] [place] [address] * (ABNORMAL) CBC WITH DIFFERENTIAL (11/05/2016 3:05 AM CDT) WBC 8.3 3.8 - 10.8 Thousand/ uL [facility] RBC 4.86 3.80 - 5.10 Million/u L [facility] HEMOGLOBIN 13.3 11.7 - 15.5 g/dL [facility] HEMATOCRIT 41.7 35.0 - 45.0 % [facility] MCV 85.8 80.0 - 100.[address] [facility] MCH 27.4 27.0 - 33.[address] [facility] MCHC 31.9(L) 32.0 - 36.0 g/dL [facility] RDW 13.6 11.0 - 15.0 % [facility] PLATELETS 320 140 - 400 Thousand/ uL [facility] MPV 11.0 7.5 - 12.[address] [facility] NEUTROPHIL ABSOLUTE 5,495 1,500 - 7,800 cells/uL [facility] LYMPHOCYTE ABSOLUTE 1,818 850 - 3,900 cells/uL [facility] MONOCYTE ABSOLUTE 581 200 - 950 cells/uL [facility] EOSINOPHIL ABSOLUTE 324 15 - 500 cells/uL [facility] BASOPHILS ABSOLUTE 83 0 - 200 cells/uL [facility] NEUTROPHIL 66.2 % [facility] LYMPHOCYTES 21.9 % [facility] MONOCYTE 7.0 % [facility] EOSINOPHILS 3.9 % [facility] BASOPHILS 1.0 % [facility] Comment: Test Performed at: [employer] [id number] [place], [place] ??[address] MARY ANN JACOBO DO,MPH Blood 11/05/2016 3:05 AM CDT Eldon Koehler MD HEMATOLOGY ORDERABLE S [employer] [address] [address] documented in this encounter Visit Diagnoses Diagnosis Morbid obesity, unspecified obesity type- Primary Impaired fasting glucose Fibromyalgia Mylagia and myositis, unspecified Other osteoarthritis involving multiple joints Other specified hypothyroidism Restless leg syndrome Restless legs syndrome (RLS) Other hyperlipidemia documented in this encounter Care Teams Plate Worker Relationship Specialty Start Date End Date Eldon Koehler MD PCP - General 10/06/07 documented as of this encounter
--- OUTSIDE RECORDS SUMMARY | 2024-05-22 17:02 | XMS_ITS | Encounter Summary ---
Author Organization [facility] Address [address] [place] [address] Care Team Providers Care Cytology Technologist Name Role Phone Eldon Koehler MD Primary Care Provider [phone] Encounter Details Date Type Department Care Team (Late st Contact Info) Description 04/26/2016 Orders Only [facility] Internal Medicine [address] [address] Eldon Koehler MD [address] [place] [address] [address] [place] [address] Disorder of right rotator cuff Social History Tobacco Use Types Packs/Day Years [...] Office Visit [facility] Primary Care [address] [place] [address] Eldon Koehler MD [address] [place] [address] [address] [place] [address] documented as of this encounter Procedures Procedure Name Priority Date/Time Associated Diagnosis Comments MRI SHOULDER WO CONTRAST RIGHT Routine 04/23/2016 Disorder of right rotator cuff documented in this encounter Results * MRI SHOULDER WO CONTRAST RIGHT (04/23/2016) Anatomical Region Laterality Modality Upper Extremity Other Eldon Koehler MD MR ORDERABLES documented in this encounter Visit Diagnoses Diagnosis Disorder of right rotator cuff Disorders of bursae and tendons in shoulder region, unspecified documented in this encounter Care Teams Cytology Technologist Relationship Specialty Start Date End Date Eldon Koehler MD PCP - General 10/06/07 documented as of this encounter
--- OUTSIDE RECORDS SUMMARY | 2024-05-22 17:02 | XMS_ITS | Encounter Summary ---
Author Organization [facility] Address [address] [place] [address] Care Team Providers Care Real Property Evaluator Name Role Phone Eldon Koehler MD Primary Care Provider [phone] Reason for Referral * Outpatient Services (Routine) - Closed Specialty Diagnoses / Procedures Referred By Carmen t Referred To Contact Diagnoses Disorder of right rotator cuff Procedures MRI SHOULDER WO CONTRAST RIGHT Eldon Koehler MD [address] [place] [address] [address] [place] [address] [address] Referral ID Status Reason Start Date Expiration Date V isits Requested Visits Authorized [id number] Closed STL CTS 12/27/2015 01/26/2017 1 1 Reason for Visit * Reason Comments Shoulder Pain rt Encounter Details Date Type Department Care Team (Late st Contact Info) Description 12/27/2015 3:45 PM CDT Office Visit [facility] Internal Medicine [address] [address] Eldon Koehler MD [address] [place] [address] [address] [place] [address] Disorder of right rotator cuff (Primary Dx); Other hyperlipidemia; Fibromyalgia; Abnormal glucose; Chronic back pain, unspecified back pain laterality, unspecified location Social History Tobacco Use Types Packs/Day Years [...] Reading Time Taken Comments Blood Pressure 130/80 12/27/2015 3:59 PM CDT Pulse - - Temperature - - Respiratory Rate - - Oxygen Saturation - - Inhaled Oxygen Concentration - - Weight 135.6 kg (299 lb) 12/27/2015 3:59 PM CDT Height 167.6 cm (5' 6 ) 12/27/2015 3:59 PM CDT Body Mass Index 48.26 12/27/2015 3:59 PM CDT documented in this encounter Progress Notes * Eldon Koehler MD - 12/27/2015 5:37 PM CDT pickedup grocery tear in right shoulder 10/10 pain cannot move arm Previous us with tear seen at [facility] u revied Med reviewed The patient appears alert, well appearing, and in no distress.- ENT exam normal, no neck nodes or sinus tenderness., Chest:clear to auscultation, no wheezes, rales or rhonchi, symmetric air entry. Heart sounds are rrr Abdomen soft, nontender, no masses or organomegaly. Shoulder cannot move severe pain ASSESSMENT: Encounter Diagnoses Name Primary? Disorder of right rotator cuff Yes ??? Other hyperlipidemia ??? Fibromyalgia ??? Abnormal glucose ??? Chronic back pain, unspecified back pain laterality, unspecified location Recheck lab reviewed Mri Fu ortho suspect full tear Caution pain med reviewed Short fu PLAN: Orders Placed This Encounter ??? MRI SHOULDER WO CONTRAST RIGHT ??? CBC WITH DIFFERENTIAL (Favorites) ??? COMPREHENSIVE METABOLIC PANEL (Favorites) ??? HEMOGLOBIN A1C (Favorites) ??? LIPID PANEL (Favorites) ??? TSH (Favorites) ??? VITAMIN B12 LEVEL (Chemistry) ??? VITAMIN D 25 HYDROXY (Chemistry) ??? LORazepam (ATIVAN) 0.5 mg tablet ??? HYDROcodone-acetaminophen (NORCO) 5-325 mg tablet documented in this encounter Plan of Treatment Upcoming Encounters Date Type Department Care Team (Late st Contact Info) Description 07/27/2024 9:40 AM CDT Office Visit [facility] Primary Care [address] [place] [address] Eldon Koehler MD [address] [place] [address] [place] [address] [place] [address] Scheduled Orders Name Type Priority Associated Diagnoses Orde r Schedule CBC WITH DIFFERENTIAL Lab Routine Fibromyalgia Expected: 12/27/2015, Expires: 12/26/2016 COMPREHENSIVE METABOLIC PANEL Lab Routine Other hyperlipidemia Expected: 12/27/2015, Expires: 12/26/2016 HEMOGLOBIN A1C Lab Routine Abnormal glucose Expected: 12/27/2015, Expires: 12/26/2016 LIPID PANEL Lab Routine Other hyperlipidemia Expected: 12/27/2015, Expires: 12/26/2016 TSH Lab Routine Other hyperlipidemia Expected: 12/27/2015, Expires: 12/26/2016 VITAMIN B12 LEVEL Lab Routine Fibromyalgia Expected: 12/27/2015, Expires: 12/26/2016 VITAMIN D 25 HYDROXY Lab Routine Fibromyalgia Expected: 12/27/2015, Expires: 12/26/2016 documented as of this encounter Results * MRI SHOULDER WO CONTRAST RIGHT (04/23/2016) Anatomical Region Laterality Modality Upper Extremity Other Eldon Koehler MD MR ORDERABLES documented in this encounter Visit Diagnoses Diagnosis Disorder of right rotator cuff- Primary Disorders of bursae and tendons in shoulder region, unspecified Other hyperlipidemia Fibromyalgia Mylagia and myositis, unspecified Abnormal glucose Other abnormal glucose Chronic back pain, unspecified back pain laterality, unspecified location documented in this encounter Care Teams Real Property Evaluator Relationship Specialty Start Date End Date Eldon Koehler MD PCP - General 10/06/07 documented as of this encounter
--- OUTSIDE RECORDS SUMMARY | 2024-05-22 17:02 | XMS_ITS | Encounter Summary ---
Author Organization [facility] Address [address] [place] [address] Care Team Providers Care Aoc Director Intelligence Officer Name Role Phone Eldon Koehler MD Primary Care Provider [phone] Reason for Visit * Reason Comments Cholesterol Problem Thyroid Disorder (office visit) Depression Annual Wellness Visit (Medicare) Upper Respiratory Symptoms coughing Encounter Details Date Type Department Care Team (Latest Contact Info) Description 01/29/2016 10:15 AM CDT Office Visit [facility] Internal Medicine [address] [address] Eldon Koehler MD [address] [place] [address] Impaired fasting glucose (Primary Dx); Fibromyalgia; Primary osteoarthritis of knee, unspecified laterality; Visit for screening mammogram; Menopause; Other hyperlipidemia Social History Tobacco Use Types [...] Reading Time Taken Comments Blood Pressure 130/80 01/29/2016 10:24 AM CDT Pulse - - Temperature 36.8 ??C (98.2 ??F) 01/29/2016 10:24 AM C DT Respiratory Rate - - Oxygen Saturation - - Inhaled Oxygen Concentration - - Weight 133.4 kg (294 lb) 01/29/2016 10:24 AM CDT Height 167.6 cm (5' 6 ) 01/29/2016 10:24 AM CDT Body Mass Index 47.45 01/29/2016 10:24 AM CDT documented in this encounter Progress Notes * Eldon Koehler MD - 01/29/2016 10:35 AM CDT Winifred Rodriguez, a 65 y.o. female. Chest congestion , wheeze , cough Had previous n, v, diarrhea ? Aspiration Over a week ago [facility] chest kendrick since Reviewed knees, had left tkr Needs right tkr Normal Exam for Routine Visits: \Blood pressure 130/80, temperature 98.2 ??F (36.8 ??C), temperature source Oral, height 5' 6 (1.676 m), weight 133.358 kg (294 lb). General appearanceobese nadHead: Normocephalic, without obvious [...] Lymphatics: No focal or generalized lymphadenopathy. neck Mood stable Encounter Diagnoses Name Primary? Impaired fasting glucose Yes ??? Fibromyalgia ??? Primary osteoarthritis of knee, unspecified laterality ??? Visit for screening mammogram ??? Menopause ??? Other hyperlipidemia Check thyroid Risk of side effects of antibiotics reviewed, call if diarrhea rash, facial swelling or other. stiloto given q estuardo 40 given Med reviewed PLAN: Orders Placed This Encounter ??? MAMMO DIGITAL SCREEN BILAT ??? XR DEXA BONE DENSITY AXIAL 1 OR MORE SITES ??? CBC WITH DIFFERENTIAL (Favorites) ??? COMPREHENSIVE METABOLIC PANEL (Favorites) ??? LIPID PANEL (Favorites) ??? TSH (Favorites) ??? VITAMIN D 25 HYDROXY (Chemistry) ??? VITAMIN B12 LEVEL (Chemistry) ??? HEMOGLOBIN A1C (Favorites) ??? amoxicillin-clavulanate (AUGMENTIN) 875-125 mg tablet ??? oseltamivir (TAMIFLU) 75 mg capsule MEDICARE WELLNESS VISIT Winifred Rodriguez is a 65 y.o. female here today for her Cholesterol Problem; Thyroid Disorder (office visit); Depression; Annual Wellness Visit (Medicare); and Upper Respiratory Symptoms . HEALTH RISK ASSESSMENT She has completed her Health Risk Assessment. I have reviewed this with the patient. See scanned copy in chart. Areas of self-identified risk are addressed below. In general, the patient feels they are in fair physical health. MEDICAL RECORD UPDATE Past Medical History Diagnosis Date ??? Arthropathy, unspecified, site unspecified ??? Unspecified disorder of lipoid metabolism ??? Unspecified essential hypertension ??? Asthma ??? Injury of back ??? GERD (gastroesophageal reflux disease) ??? Hypothyroidism ??? Obstructive sleep apnea (adult) (pediatric) cpap at night Past Surgical History Procedure Laterality Date ??? Hx cholecystectomy ??? Hx back surgery ??? Hx skin biopsy ??? Hx colonoscopy ??? Pr colonoscopy flx dx w/collj spec when pfrmd N/A 03/15/2015 COLONOSCOPY performed by Osei Sutton MD at [facility] Family History Problem Relation Age of Onset ??? Colon Cancer Mother Current medications and allergies were reviewed and updated in computerized patient record. [facility] [address] - [place] - [address] AT [address] [facility] - [facility] [place] - [address] [place] [address] [facility] - [place], [place] - [address] [facility] Providers: Patient Care Team: Eldon Koehler MD as PCP - [facility]- dermatology Prev 10/25/14 DEMENTIA SCREENING The patient does not report concerns regarding cognitive or behavioral issues. Cognitive ability was also observed and assessed throughout the exam and a MMS was felt to be indicated. Mini-Mental Status Exam TOTAL SCORE: 30 (01/29/16 1000) DEPRESSION SCREENING (QM) PHQ2: Positive: PHQ-2 score > 2 or PHQ-9 score > 9 PHQ-2 Total: 0 (01/29/16 1000) PHQ-9 Total: 6 (01/29/16 1000) Her antidepressant medication was reviewed. EXAMINATION BP 130/80 mmHg Temp(Src) 98.2 ??F (36.8 ??C) (Oral) Ht 5' 6 (1.676 m) Wt 133.358 kg (294 lb) BMI 47.48 kg/m2 Blood Pressure POC BP Readings from Last 3 Encounters: 01/29/16 130/80 12/27/15 130/80 08/14/15 130/80 Pre-hypertensive BP reading systolic between 120 to 139 or diastolic between 80 to 89 and no diagnosis of hypertension. Patient instructed to recheck blood pressure within one year; discussed lifestyle changes including weight loss, reducing sodium intake, and increasing physical activity for bloodpressure control. BMI POC Body mass index is 47.48 kg/(m^2). Normal BMI ranges: 18-64 yrs: 18.5 to 25 65 yrs and older: 23 to 30 Abnormal high BMI: patient counseled on lifestyle modifications including weight loss and daily exercise. Weight management options discussed. Visual Acuity Sees eye md Hearing screen Degree of hearing loss: normal FUNCTIONAL ABILITY AND SAFETY Pain Assessment Are you having pain right now? Yes Abuse screen/ and home safety evaluation Negative Fall Risk(QM) She has had no falls in the past year. Social Support/[place]: Patient resides with relative in independent living. Activities of Daily Living: Requires assistance with no ADLs Adult Nutritional Screen Overweight/obesity Tobacco Use(QM) reports that she has never smoked. She has never used smokeless tobacco. She is not a tobacco user. Alcohol Use reports that she does not drink alcohol. Drug Use reports that she does not use illicit drugs. Exercise/Other Exercise: rarely END OF LIFE PLANNING Patient's End of life planning was discussed and questions answered. She has an advanced directive, but a copy has not been provided. Asked to bring a copy for review and scanning into the medical record. Current documents reviewed / provided as applicable. I have no objection to the patient's stated End of Life planning. PREVENTIVE CARE GUIDELINES Written Screening Schedule for [...] Health Maintenance Due Topic Date Due ??? CERVICAL CANCER SCREENING 10/19/2015 ??? BREAST CANCER SCREENING 11/09/2015 ??? INFLUENZA VACCINE 11/10/2015 ORDERS / REFERALS / COUNSELING AND FOLLOW-UP Based upon these findings and review of any previous Wellness Visit recommendations the following treatment plan was recommended and discussed with the patient. Orders Placed This Encounter ??? MAMMO DIGITAL SCREEN BILAT ??? XR DEXA BONE DENSITY AXIAL 1 OR MORE SITES ??? CBC WITH DIFFERENTIAL (Favorites) ??? COMPREHENSIVE METABOLIC PANEL (Favorites) ??? LIPID PANEL (Favorites) ??? TSH (Favorites) ??? VITAMIN D 25 HYDROXY (Chemistry) ??? VITAMIN B12 LEVEL (Chemistry) ??? HEMOGLOBIN A1C (Favorites) ??? amoxicillin-clavulanate (AUGMENTIN) 875-125 mg tablet ??? oseltamivir (TAMIFLU) 75 mg capsule Education and counseling provided: Age appropriate based on today's review and evaluation Pneumococcal vaccine Influenza vaccine Screening mammography Colorectal cancer screening tests Screening for glaucoma Medical nutrition therapy for individuals with diabetes or renal disease zostavax advised Ms. Rodriguez voiced understanding and agreement with the treatment plan. She understands the importance of taking her medications and keeping follow-up appointments. All questions were answered. Viawj-Xnqgp-Wzbgdve will be provided to patient upon check-out. ACUTE AND/OR CHRONIC ISSUES REQUIRING EVALUATION AND MANAGEMENT OUTSIDE THE WELLNESS VISIT Yes: Per E&M documentation: documented in this encounter Plan of Treatment Upcoming Encounters Date Type Department Care Team (Late st Contact Info) Description 07/27/2024 9:40 AM CDT Office Visit [facility] Primary Care [facility] [address] [place] [address] [address] [place] [address] Eldon Koehler MD [address] [facility] [address] [place] [address] Scheduled Orders Name Type Priority Associated Diagnoses Orde r Schedule CBC WITH DIFFERENTIAL Lab Routine Fibromyalgia Expected: 01/29/2016, Expires: 01/28/2017 COMPREHENSIVE METABOLIC PANEL Lab Routine Other hyperlipidemia Expected: 01/29/2016, Expires: 01/28/2017 LIPID PANEL Lab Routine Other hyperlipidemia Expected: 01/29/2016, Expires: 01/28/2017 TSH Lab Routine Other hyperlipidemia Expected: 01/29/2016, Expires: 01/28/2017 VITAMIN D 25 HYDROXY Lab Routine Fibromyalgia Expected: 01/29/2016, Expires: 01/28/2017 VITAMIN B12 LEVEL Lab Routine Fibromyalgia Expected: 01/29/2016, Expires: 01/28/2017 HEMOGLOBIN A1C Lab Routine Impaired fasting glucose Expected: 01/29/2016, Expires: 01/28/2017 documented as of this encounter Visit Diagnoses Diagnosis Impaired fasting glucose- Primary Fibromyalgia Mylagia and myositis, unspecified Primary osteoarthritis of knee, unspecified laterality Visit for screening mammogram Other screening mammogram Menopause Symptomatic menopausal or female climacteric states Other hyperlipidemia documented in this encounter Care Teams Aoc Director Intelligence Officer Relationship Specialty Start Date End Date Eldon Koehler MD PCP - General 10/06/07 documented as of this encounter
--- OUTSIDE RECORDS SUMMARY | 2024-05-22 17:02 | XMS_ITS | Encounter Summary ---
Author Organization [facility] Address [address] [place] [address] Care Team Providers Care Ice Cream Freezer Helper Name Role Phone Eldon Keohler MD Primary Care Provider [phone] Reason for Visit * Reason Onset Date Comments Medication Refill 11/16/2015 Encounter Details Date Type Department Care Team (Late st Contact Info) Description 11/16/2015 Refill [facility] Internal Medicine [address] [address] Eldon Koehler MD [address] [place] [address] Gastroesophageal reflux disease without esophagitis (Primary Dx); Hyperlipidemia, unspecified hyperlipidemia type Social History Tobacco Use Types Packs/Day Years [...] * Telephone Encounter - Glendy Ross - 11/16/2015 10:41 AM CDT NO FUTURE EMILY 08/16/2015 documented in this encounter Plan of Treatment Upcoming Encounters Date Type Department Care Team (Late st Contact Info) Description 07/27/2024 9:40 AM CDT Office Visit [facility] Primary Care [address] [place] [address] Eldon Koehler MD [address] [place] [address] [address] [place] [address] documented as of this encounter Visit Diagnoses Diagnosis Gastroesophageal reflux disease without esophagitis- Primary Esophageal reflux Hyperlipidemia, unspecified hyperlipidemia type documented in this encounter Care Teams Ice Cream Freezer Helper Relationship Specialty Start Date End Date Eldon Koehler MD PCP - General 10/06/07 documented as of this encounter
--- OUTSIDE RECORDS SUMMARY | 2024-05-22 17:02 | XMS_ITS | Encounter Summary ---
Author Organization [facility] Address [address] [place] [address] Care Team Providers Care Mine Motor Operator Name Role Phone Eldon Koehler MD Primary Care Provider [phone] Reason for Visit * Reason Onset Date Comments Results 08/16/2015 Encounter Details Date Type Department Care Team (Late st Contact Info) Description 08/16/2015 Telephone [facility] Internal Medicine [address] [address] Eldon Koehler MD [address] [place] [address] Results Social History Tobacco Use Types [...] encounter Miscellaneous Notes * Telephone Encounter - Jerica Lay - 08/17/2015 8:38 AM CDT Spoke with pt about test results. * Telephone Encounter - Eldon Koehler MD - 08/16/2015 5:43 PM CDT Heart ultrasound is ok There are some changes from weight etc but overall ok documented in this encounter Plan of Treatment Upcoming Encounters Date Type Department Care Team (Late st Contact Info) Description 07/27/2024 9:40 AM CDT Office Visit [facility] Care [address] [place] [address] Eldon Koehler MD [address] [place] [address] [address] [place] [address] documented as of this encounter Visit Diagnoses Not on filedocumented in this encounter Care Teams Mine Motor Operator Relationship Specialty Start Date End Date Eldon Koehler MD PCP - General 10/06/07 documented as of this encounter
--- OUTSIDE RECORDS SUMMARY | 2024-05-22 17:02 | XMS_ITS | Encounter Summary ---
Author Organization [facility] Address [address] [place] [address] Care Team Providers Care Preventive Medicine Physician Name Role Phone Eldon Koehler MD Primary Care Provider [phone] Reason for Visit * Reason Onset Date Comments Results 04/26/2016 Encounter Details Date Type Department Care Team (Late st Contact Info) Description 04/26/2016 Telephone [facility] Internal Medicine [address] [address] Eldon Koehler MD [address] [place] [address] Results Social History Tobacco Use Types [...] Telephone Encounter - Eldon Koehler MD - 04/26/2016 3:39 PM CST Mri reviewed She is sseeing ortho STIGATION MANAGER documented in this encounter Plan of Treatment Upcoming Encounters Date Type Department Care Team (Late st Contact Info) Description 07/27/2024 9:40 AM CDT Office Visit [facility] Primary Care [address] [place] [address] Eldon Koehler MD [address] [place] [address] [address] [place] [address] documented as of this encounter Visit Diagnoses Not on filedocumented in this encounter Care Teams Preventive Medicine Physician Relationship Specialty Start Date End Date Eldon Koehler MD PCP - General 10/06/07 documented as of this encounter
--- OUTSIDE RECORDS SUMMARY | 2024-05-22 17:02 | XMS_ITS | Encounter Summary ---
Author Organization [facility] Address [address] [place] [address] Care Team Providers Care Maintenance Custodian Name Role Phone Eldon Koehler MD Primary Care Provider [phone] Reason for Visit * Reason Onset Date Comments Medication Refill 03/15/2016 Encounter Details Date Type Department Care Team (Late st Contact Info) Description 03/15/2016 Refill [facility] Internal Medicine [address] [address] Eldon Koehler MD [address] [place] [address] Fibromyalgia (Primary Dx) Social History Tobacco Use Types [...] * Telephone Encounter - Mitra Ward - 03/19/2016 2:06 PM CST Faxed script to [facility] ORM ROOM ATTENDANT * Telephone Encounter - Mitra Ward - 03/15/2016 1:56 PM CDT Lf 11/16/15 Next ov 04/01/16 Will need to manually fax to Mail order pharmacy. documented in this encounter Plan of Treatment Upcoming Encounters Date Type Department Care Team (Late st Contact Info) Description 07/27/2024 9:40 AM CDT Office Visit [facility] Primary Care [address] [place] [address] Eldon Koehler MD [address] [place] [address] [address] [place] [address] documented as of this encounter Visit Diagnoses Diagnosis Fibromyalgia- Primary Mylagia and myositis, unspecified documented in this encounter Care Teams Maintenance Custodian Relationship Specialty Start Date End Date Eldon Koehler MD PCP - General 10/06/07 documented as of this encounter
--- OUTSIDE RECORDS SUMMARY | 2024-05-22 17:02 | XMS_ITS | Encounter Summary ---
Author Organization [facility] Address [address] [place] [address] Care Team Providers Care Cribber Name Role Phone Eldon Koehler MD Primary Care Provider Reason for Referral * Outpatient Services (Urgent) - Closed Specialty Diagnoses / Procedures Referred By Contac t Referred To Contact Radiology Diagnoses Generalized edema Calf pain, left Procedures US VENOUS DOPPLER LEG LEFT Eldon Koehler MD [address] [place] [address] [address] [place] [address] [address] [facility] [address] [place] [address] Referral ID Status Reason Start Date Expiration Date V isits Requested Visits Authorized [id number] Closed [facility] CTS 08/14/2015 09/13/2016 1 1 Reason for Visit * Outpatient Services (Urgent) - Closed Specialty Diagnoses / Procedures Referred By Contac t Referred To Contact Radiology Diagnoses Generalized edema Calf pain, left Procedures US VENOUS DOPPLER LEG LEFT Eldon Koehler MD [address] [facility] [address] [place] [address] [address] [place] [address] Referral ID Status Reason Start Date Expiration Date V isits Requested Visits Authorized [id number] Closed [facility] CTS 08/14/2015 09/13/2016 1 1 Encounter Details Date Type Department Care Team (Latest Contact Info) Description 08/15/2015 7:39 AM CDT - 08/15/2015 11:59 PM CDT Hospital Encounter [facility] [address] [facility] [address] [place] [address] Eldon Koehler MD [address] [facility] [address] [place] [address] Discharge Disposition: Home or Self [...] Visit [facility] Primary Care [address] [place] [phone] Eldon oKehler MD [address] [place] [address] [address] [place] [phone] documented as of this encounter Procedures Procedure Name Priority Date/Time Associated Diagnosis Comments US VENOUS DOPPLER LEG LEFT Stat 08/15/2015 8:02 AM CDT Generalized edema Calf pain, left documented in this encounter Results * US VENOUS DOPPLER LEG LEFT (08/15/2015 8:02 AM CDT) Anatomical Region Laterality Modality Lower Extremity Ultrasound 08/15/2015 7:53 AM CDT Narrative 08/15/2015 2:31 PM CDT [address] [address] [email or web address] ([email or web address] Venous Exam Limited Lower Extremity Duplex Patient: ? Winifred Rodriguez MRN: ? [id number] Study ID: ?[id number] Gender: ?F : ? 1950 Age: ? 65 Race: ?CAU Height Study Date: ?08/15/2015 Weight: Access. #: ? [id number] *Referring Physician:* Eldon Koehler *Ordering Physician:* ??Eldon Koehler *Editor Producer:* History: ?? Left lower extremity pain. ??Swelling [...] reflux Prepared and Electronically Authenticated Joaquin Lucio [id number] Procedure Note Joaquin Lucio MD - 08/15/2015 [place] [address] [email or web address] ([email or web address] Venous Exam Limited Lower Extremity Duplex Patient: Winifred Rodriguez Study ID: [id number] Gender: F : 1950 Age: 65 Race: [facility] Height Study Date: 08/15/2015 Weight: Access. #: [id number] *Referring Physician:* Eldon Koehler *Ordering Physician:* Eldon Koehler *Editor Producer:* History: Left lower extremity pain. Swelling of [...] compressible; no reflux Prepared and Electronically Authenticated LucioJoaquin muñiz [id number] Eldon Koehler MD ORDERABLES documented in this encounter Visit Diagnoses Diagnosis Generalized edema Edema Calf pain, left documented in this encounter Care Teams Cribber Relationship Specialty Start Date End Date Eldon Koehler MD PCP - General 10/06/07 documented as of this encounter
--- OUTSIDE RECORDS SUMMARY | 2024-05-22 17:02 | XMS_ITS | Encounter Summary ---
Author Organization [facility] Address [address] [place] [address] Care Team Providers Care Assistant Spa Director Name Role Phone Eldon Koehler MD Primary Care Provider Encounter Details Date Type Department Care Team (Late st Contact Info) Description 08/28/2016 Abstract [facility] - [address] [phone] Stefanie Mccrary RN Social History Tobacco Use [...] Visit [facility] Primary Care [address] [place] [address] Eldon Koehler MD [address] [place] [address] [address] [place] [address] documented as of this encounter Visit Diagnoses Not on filedocumented in this encounter Care Teams Assistant Spa Director Relationship Specialty Start Date End Date Eldon Koehler MD PCP - General 10/06/07 documented as of this encounter
--- OUTSIDE RECORDS SUMMARY | 2024-05-22 17:02 | XMS_ITS | Encounter Summary ---
Author Organization [facility] Address [address] [place] [address] Care Team Providers Care Obgyn Nurse Name Role Phone Eldon Koehler MD Primary Care Provider [phone] Reason for Visit * Reason Comments Medication Refill Encounter Details Date Type Department Care Team (Late st Contact Info) Description 08/26/2015 Refill [facility] Internal Medicine [address] [phone] Eldon Koehler MD [address] [place] [address] Social History Tobacco Use Types Packs/Day [...] encounter Miscellaneous Notes * Telephone Encounter - Jacqueline Akhtar - 08/26/2015 12:35 PM CDT Next ov 08/29/15 documented in this encounter Plan of Treatment Upcoming Encounters Date Type Department Care Team (Late st Contact Info) Description 07/27/2024 9:40 AM CDT Office Visit [facility] Primary Care [address] [place] [address] Eldon Koehler MD [address] [place] [address] [address] [place] [address] documented as of this encounter Visit Diagnoses Not on filedocumented in this encounter Care Teams Obgyn Nurse Relationship Specialty Start Date End Date Eldon Koehler MD PCP - General 10/06/07 documented as of this encounter
--- OUTSIDE RECORDS SUMMARY | 2024-05-22 17:02 | XMS_ITS | Encounter Summary ---
Author Organization [facility] Address [address] [place] [address] Care Team Providers Care Pan Reclaim Processor Name Role Phone Eldon Koehler MD Primary Care Provider [phone] Reason for Visit * Reason Comments Medication Refill Encounter Details Date Type Department Care Team (Late st Contact Info) Description 06/26/2016 Refill [facility] Internal Medicine [address] [phone] Delmis Akhtar, [address] [address] Social History Tobacco Use Types [...] * Telephone Encounter - Glendy Ross - 06/27/2016 9:36 AM CST NOV 10/10/2016, EMILY 06/10/2016 LE HOME INSTALLER documented in this encounter Plan of Treatment Upcoming Encounters Date Type Department Care Team (Late st Contact Info) Description 07/27/2024 9:40 AM CDT Office Visit [facility] Primary Care [address] [place] [phone] Eldon Koehler MD [address] [place] [address] [address] [place] [address] documented as of this encounter Visit Diagnoses Not on filedocumented in this encounter Care Teams Pan Reclaim Processor Relationship Specialty Start Date End Date Eldon Koehler MD PCP - General 10/06/07 documented as of this encounter
--- OUTSIDE RECORDS SUMMARY | 2024-05-22 17:02 | XMS_ITS | Encounter Summary ---
Author Organization [facility] Address [address] [place] [address] Care Team Providers Care Hoop Riveting Machine Operator Helper Name Role Phone Eldon Koehler MD Primary Care Provider [phone] Reason for Visit * Reason Onset Date Comments [facility] 01/18/2016 Encounter Details Date Type Department Care Team (Late st Contact Info) Description 01/18/2016 Telephone [facility] Internal Medicine [address] [address] Eldon Koehler MD [address] [place] [address] [facility] Social History Tobacco Use Types Packs/Day Years [...] * Telephone Encounter - Jacqueline Akhtar - 01/18/2016 1:04 PM CDT Spoke with spouse * Telephone Encounter - Eldon Koehler MD - 01/18/2016 12:50 PM CDT Med sent see if not improved * Telephone Encounter - GiovanaVijiia - 01/18/2016 9:33 AM CDT Pt c/o pink eye in her left eye Red Crusted over Sx for 24 hrs Would like abx sent to the pharmacy documented in this encounter Plan of Treatment Upcoming Encounters Date Type Department Care Team (Late st Contact Info) Description 07/27/2024 9:40 AM CDT Office Visit [facility] Primary Care [address] [place] [address] Eldon Koehler MD [address] [place] [address] [address] [place] [phone] documented as of this encounter Visit Diagnoses Not on filedocumented in this encounter Care Teams Hoop Riveting Machine Operator Helper Relationship Specialty Start Date End Date Eldon Koehler MD PCP - General 10/06/07 documented as of this encounter
--- OUTSIDE RECORDS SUMMARY | 2024-05-22 17:02 | XMS_ITS | Encounter Summary ---
Author Organization [facility] Address [address] [place] [address] Care Team Providers Care Precision Instrument And Tool Maker Name Role Phone Eldon Koehler MD Primary Care Provider Encounter Details Date Type Department Care Team (Late st Contact Info) Description 03/04/2016 Orders Only [facility] Internal Medicine [address] [address] Provider, Abstract NO ADDRESS ON [...] Office Visit [facility] Primary Care [address] [place] [address] Eldon Koehler MD [address] [place] [address] [address] [place] [address] documented as of this encounter Procedures Procedure Name Priority Date/Time Associated Diagnosis Comments XR KNEE 1 OR 2 VW RIGHT Routine 02/28/2016 documented in this encounter Results * XR KNEE 1 OR 2 VW RIGHT (02/28/2016) Anatomical Region Laterality Modality Lower Extremity Other Abstract Provider DIAGNOSTIC IMAGING O RDERABLES documented in this encounter Visit Diagnoses Not on filedocumented in this encounter Care Teams Precision Instrument And Tool Maker Relationship Specialty Start Date End Date Eldon Koehler MD PCP - General 10/06/07 documented as of this encounter
--- OUTSIDE RECORDS SUMMARY | 2024-05-22 17:02 | XMS_ITS | Encounter Summary ---
Author Organization [facility] Address [address] [place] [address] Care Team Providers Care Folder Seamer Name Role Phone Eldon Koehler MD Primary Care Provider [phone] Reason for Visit * Reason Onset Date Comments Sore Throat 07/14/2015 Encounter Details Date Type Department Care Team (Late st Contact Info) Description 07/14/2015 Telephone [facility] Internal Medicine [address] [address] Eldon Koehler MD [address] [place] [address] Sore Throat Social History Tobacco Use Types Packs/Day Years [...] * Telephone Encounter - Mitra Ward - 07/14/2015 12:40 PM CST Eyes itchy & a little red around her eyes. Grandkids have pink eye, as well as her daughter & . Requesting medication for pink eye. YTICAL CONSULTANT * Telephone Encounter - Eldon Koehler MD - 07/14/2015 12:27 PM CST Med sent , appt if not improved YTICAL CONSULTANT * Telephone Encounter - Mitra Ward - 07/14/2015 11:37 AM CST Pt said they just found out that 4 members of family have strep throat & ? 3 have pink eye. She has had a sore throat x 2 days. Eyes hurt, but don't look red. I recommended an appt. Said she's at the [employer] right now & could leave & be here in about 20 min or so. 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 Do you want to send in med or have her come in now & just put her on schedule around 12 or so? YTICAL CONSULTANT documented in this encounter Plan of Treatment Upcoming Encounters Date Type Department Care Team (Late st Contact Info) Description 07/27/2024 9:40 AM CDT Office Visit [facility]3] Primary Care [address] [place] [address] Eldon Koehler MD [address] [place] [address] [address] [place] [phone] documented as of this encounter Visit Diagnoses Not on filedocumented in this encounter Care Teams Folder Seamer Relationship Specialty Start Date End Date Eldon Koehler MD PCP - General 10/06/07 documented as of this encounter
--- OUTSIDE RECORDS SUMMARY | 2024-05-22 17:02 | XMS_ITS | Encounter Summary ---
Author Organization [facility] Address [address] [place] [address] Care Team Providers Care Isolation Washer Name Role Phone Eldon Koehler MD Primary Care Provider [phone] Reason for Visit * Reason Comments Medication Refill Encounter Details Date Type Department Care Team (Late st Contact Info) Description 11/28/2015 Refill [facility] Internal Medicine [address] [phone] Rad Prado MD [address] [place] [phone] Social History Tobacco Use Types Packs/Day Years [...] * Telephone Encounter - Glendy Ross - 11/28/2015 6:07 PM CDT EMILY 08/14/15,NO FUTURE documented in this encounter Plan of Treatment Upcoming Encounters Date Type Department Care Team (Late st Contact Info) Description 07/27/2024 9:40 AM CDT Office Visit [facility] Primary Care [address] [place] [address] Eldon Koehler MD [address] [place] [address] [address] [place] [address] documented as of this encounter Visit Diagnoses Not on filedocumented in this encounter Care Teams Isolation Washer Relationship Specialty Start Date End Date Eldon Koehler MD PCP - General 10/06/07 documented as of this encounter
--- OUTSIDE RECORDS SUMMARY | 2024-05-22 17:02 | XMS_ITS | Encounter Summary ---
Author Organization [facility] Address [address] [place] [address] Care Team Providers Care Senior Front End Web Developer Name Role Phone Eldon Koehler MD Primary Care Provider [phone] Encounter Details Date Type Department Care Team (Late Contact Info) Description 08/19/2016 Orders Only [facility] - [address] [phone] Stefanie Mccrary RN Morbid obesity, unspecified obesity [...] 07/27/2024 9:40 AM CDT Office Visit [facility] Primary Care [address] [place] [address] Eldon Koehler MD [address] [place] [address] [address] [place] [address] documented as of this encounter Procedures Procedure Name Priority Date/Time Associated Diagnosis Comments EDUCATION BARIATRIC INFORMED DECISION MAKING Routine 08/19/2016 12:18 PM CDT Morbid obesity, unspecified obesity type documented in this encounter Results * EDUCATION BARIATRIC INFORMED DECISION MAKING - ODILIA (08/19/2016 12:18 PM CDT) Education Name BARIATRIC INFORMED DECISION MAKING ODILIA EDUCATION INTERFACE Education URL [email or web address] ODILIA EDUCATION INTERFACE EDUCATION ACCESS CODE [id number] ODILIA EDUCATION INTERFACE EDUCATION ISSUE DATE Aug 19, 2016 ODILIA EDUCATION INTERFACE EDUCATION START DATE Aug 19, 2016 ODILIA EDUCATION INTERFACE EDUCATION COMPLETED DATE Aug 19, 2016 ODILIA EDUCATION INTERFACE EDUCATION EXPIRATION DATE September 18, 2016 ODILIA EDUCATION INTERFACE EDUCATION MESSAGE EVENT Completed ODILIA EDUCATION INTERFACE 08/19/2016 12:1 8 PM CDT Elizabeth Gomez MD EXTERNAL EDUCATI ON ORDERABLES ODILIA EDUCATION INTERFACE documented in this encounter Visit Diagnoses Diagnosis Morbid obesity, unspecified obesity type- Primary documented in this encounter Care Teams Senior Front End Web Developer Relationship Specialty Start Date End Date Eldon Koehler MD PCP - General 10/06/07 documented as of this encounter
--- OUTSIDE RECORDS SUMMARY | 2024-05-22 17:02 | XMS_ITS | Encounter Summary ---
Author Organization [facility] Address [address] [place] [address] Care Team Providers Care Engineering Project Manager Name Role Phone Eldon Koehler MD Primary Care Provider [phone] Encounter Details Date Type Department Care Team (Late st Contact Info) Description 03/22/2016 Orders Only [facility] Internal Medicine [address] [address] Provider, Abstract NO ADDRESS ON [...] 9:40 AM CDT Office Visit [facility] Primary Care [address] [place] [address] Eldon Koehler MD [address] [place] [address] [address] [place] [address] documented as of this encounter Procedures Procedure Name Priority Date/Time Associated Diagnosis Comments XR KNEE 4+ VW RIGHT Routine 03/16/2016 documented in this encounter Results * XR KNEE 4+ VW RIGHT (03/16/2016) Anatomical Region Laterality Modality Lower Extremity Other Abstract Provider DIAGNOSTIC IMAGING O RDERABLES documented in this encounter Visit Diagnoses Not on filedocumented in this encounter Care Teams Engineering Project Manager Relationship Specialty Start Date End Date Eldon Koehler MD PCP - General 10/06/07 documented as of this encounter
--- OUTSIDE RECORDS SUMMARY | 2024-05-22 17:02 | XMS_ITS | Encounter Summary ---
Author Organization [facility] Address [address] [place] [address] Care Team Providers Care Corporate Director Of Human Resources Name Role Phone Eldon Koehler MD Primary Care Provider [phone] Reason for Visit * Reason Comments Medication Refill Encounter Details Date Type Department Care Team (Late st Contact Info) Description 08/14/2016 Refill [facility] Internal Medicine [address] [phone] Delmis Akhtar, [facility] [address] [address] Social History Tobacco Use Types [...] * Telephone Encounter - Jacqueline Akhtar - 08/15/2016 7:58 AM CDT Next ov 11/14/16 documented in this encounter Plan of Treatment Upcoming Encounters Date Type Department Care Team (Late st Contact Info) Description 07/27/2024 9:40 AM CDT Office Visit [facility] Primary Care [address] [place] [address] Eldon Koehler MD [address] [place] [address] [address] [place] [phone] documented as of this encounter Visit Diagnoses Not on filedocumented in this encounter Care Teams Corporate Director Of Human Resources Relationship Specialty Start Date End Date Eldon Koehler MD PCP - General 10/06/07 documented as of this encounter
--- OUTSIDE RECORDS SUMMARY | 2024-05-22 17:02 | XMS_ITS | Encounter Summary ---
Author Organization [facility] Address [address] [place] [address] Care Team Providers Care Valve Repairer Name Role Phone Eldon Koehler MD Primary Care Provider Reason for Referral * Eval and Treat (Routine) - Closed Specialty Diagnoses / Procedures Referred By Carmen villalobos Referred To Contact Surgery / General Surgery Diagnoses Morbid obesity, unspecified obesity type Eldon Koehler MD [address] [place] [phone] Elizabeth Mcbride MD [address] [place] [address] Referral ID Status Reason Start Date Expiration Date Visits Requested Visits Authorized [id number] Closed Performing Department To Schedule (STL) 06/10/2016 06/11/2017 6 6 TRONIC INSTALLER * Eval and Treat (Routine) - Closed Specialty Diagnoses / Procedures Referred By Contdorian t Referred To Contact Rheumatology Diagnoses Fibromyalgia Eldon Koehler MD [address] [place] [address] [facility] [address] [place] [address] Referral ID Status Reason Start Date Expiration Date V isits Requested Visits Authorized [id number] Closed CRS To Schedule (STL) 06/10/2016 06/10/2017 1 1 TRONIC INSTALLER Reason for Visit * Reason Comments Cholesterol Problem Thyroid Disorder (office visit) Encounter Details Date Type Department Care Team (Latest Contact Info) Description 06/10/2016 3:00 PM ELECTRONIC INSTALLER Office Visit [facility] Internal Medicine [address] [address] Eldon Koehler MD [address] [place] [address] Other hyperlipidemia (Primary Dx); Recurrent major depressive disorder, in partial remission; Fibromyalgia; Morbid obesity, unspecified obesity type; Impaired fasting glucose Social History Tobacco Use [...] Reading Time Taken Comments Blood Pressure 128/80 06/10/2016 3:01 PM ELECTRONIC INSTALLER Pulse - - Temperature - - Respiratory Rate - - Oxygen Saturation - - Inhaled Oxygen Concentration - - Weight 134.3 kg (296 lb) 06/10/2016 3:01 PM ELECTRONIC INSTALLER Height 167.6 cm (5' 6 ) 06/10/2016 3:01 PM ELECTRONIC INSTALLER Body Mass Index 47.78 06/10/2016 3:01 PM ELECTRONIC INSTALLER documented in this encounter Progress Notes * Eldon Koehler MD - 06/10/2016 3:19 PM CST Subjective: Winifred Rodriguez is a 65 y.o. female. Still with pain Swelling better Myalgias le Med reviewed Obesity reviewed, diffic losing wt Gluc issues reviewed Med reviewed depn ok on med Patient Active Problem List Diagnosis Date Noted ??? Meralgia paresthetica 05/23/2015 ??? 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 Fibromyalgia 04/19/2014 ??? GERD (gastroesophageal reflux disease) 09/16/2013 ??? Restless leg syndrome 10/04/2007 ??? Impaired fasting glucose 08/03/2007 ??? Unspecified asthma(493.90) 06/05/2007 ??? Unspecified sleep apnea 06/05/2007 ??? Backache, unspecified 03/02/2007 ??? Headache(784.0) 12/17/2006 ??? Hypothyroidism 04/19/2005 ??? Osteoarthritis 10/19/2004 ??? Recurrent major depressive disorder, in partial remission 06/08/2003 ??? Hyperlipemia 06/07/2003 Current Outpatient Prescriptions on File Prior to Visit Medication Sig Dispense Refill ??? LORazepam (ATIVAN) 0.5 mg tablet Take 1 Tablet (0.5 mg) by mouth see administration instructions 1 tab before mri take another if still anxious. 2 Tablet 0 ??? levothyroxine 150 mcg tablet Take 1 Tablet (150 mcg) by mouth daily. 90 Tablet 1 ??? pregabalin (LYRICA) 50 mg Capsule Take 1 Capsule (50 mg) by mouth 2 times daily. 180 Capsule 0 ??? omeprazole (PRILOSEC) 20 mg Capsule, Delayed Release(E.C.) Take 1 Capsule (20 mg) by mouth daily. 90 Capsule 1 ??? atorvastatin (LIPITOR) 20 mg tablet Take 1 Tablet (20 mg) by mouth Daily LATE. 90 Tablet 1 ??? celecoxib (CELEBREX) 200 mg capsule Take 1 Capsule (200 mg) by mouth 2 times daily. 180 Capsule1 ??? DULoxetine (CYMBALTA) 60 mg Capsule, Delayed Release(E.C.) Take 1 Capsule (60 mg) by mouth daily. 90 Capsule 1 ??? rOPINIRole (REQUIP) 2 mg Tablet Take 1 Tablet (2 mg) by mouth daily at bedtime. 90 Tablet 1 ??? furosemide (LASIX) 20 mg tablet Take 1 Tablet (20 mg) by mouth daily. 30 Tablet 3 ??? albuterol HFA 90 mcg [...] unit Oral Tab Take by mouth daily. No current facility-administered medications on file prior to visit. Allergies Allergen Reactions ??? Clindamycin Rash and Itching ??? Codeine Nausea and Vomiting Past Medical History Diagnosis Date ??? Arthropathy, unspecified, site unspecified ??? Asthma ??? GERD (gastroesophageal reflux disease) ??? Hypothyroidism ??? Injury of back ??? Obstructive sleep apnea (adult) (pediatric) cpap at night ??? Unspecified disorder of lipoid metabolism ??? Unspecified essential hypertension Past Surgical History Procedure Laterality Date ??? Hx cholecystectomy ??? Hx back surgery ??? Hx skin biopsy ??? Hx colonoscopy ??? Pr colonoscopy flx dx w/collj spec when pfrmd N/A 03/15/2015 COLONOSCOPY performed by Osei Sutton MD at [facility] Family History Problem Relation Age of Onset ??? Colon Cancer Mother Social History Substance Use Topics ??? Smoking status: Never Smoker ??? Smokeless tobacco: Never Used ??? Alcohol use No Review of Systems: During the review of systems, the following significant history is obtained from the patient: Review of Systems - General ROS: negative for weight changes, fever positive for - fatigue Psychological ROS: positive for - anxiety Endocrine ROS: negative for polyuria/polydipsia or new changes in weight Cardiovascular ROS: negative for chest pain or dyspnea on exertion Gastrointestinal ROS: negative for reflux, abdominal pain, change in bowel habits, or black or bloody stools Musculoskeletal ROS: positive for - joint pain, joint stiffness, joint swelling and muscle pain Neurological ROS: negative for TIA or stroke symptoms Dermatological ROS: negative for skin rashes or unusual skin lesions Exam/Objective: Visit Vitals ??? BP 128/80 (BP Location: Left arm, Patient Position (BP): Sitting, BP Cuff Size: Large Adult) ??? Ht 5' 6 (1.676 m) ??? Wt 134.3 kg (296 lb) ??? BMI 47.78 kg/m2 General appearance: over wt nad Head: [...] generalized lymphadenopathy. Neck Ext no edema Tender pts ue and le Mood stable Assessment and Plan: ASSESSMENT: ICD-10-CM ICD-9-CM 1. Other hyperlipidemia E78.4 272.4 COMPREHENSIVE METABOLIC PANEL TSH CHOLESTEROL TOTAL COMPREHENSIVE METABOLIC PANEL TSH CHOLESTEROL TOTAL 2. Recurrent major depressive disorder, in partial remission F33.41 296.35 3. Fibromyalgia M79.7 729.1 AMB REFERRAL TO RHEUMATOLOGY CBC WITH DIFFERENTIAL CBC WITH DIFFERENTIAL 4. Morbid obesity, unspecified obesity type E66.01 278.01 AMB REFERRAL TO BARIATRIC SURGERY 5. Impaired fasting glucose R73.01 790.21 HEMOGLOBIN A1C HEMOGLOBIN A1C Pain med issues reviewed Cont statin no effect on myalgias Recheck lab Gluc issues reviewed BMI PLAN OF CARE Normal BMI ranges: 18-64 yrs: > or = 18.5 and < 25 65 yrs and older: > or = 23 and < 30 Body mass index is 47.78 kg/(m^2). Abnormal high BMI: patient counseled on lifestyle modifications including weight loss and daily exercise. Weight management options discussed. Refer surgical consult Myalgia , inc crp refer rheum PLAN: Orders Placed This Encounter ??? CBC WITH DIFFERENTIAL (Favorites) ??? COMPREHENSIVE METABOLIC PANEL (Favorites) ??? HEMOGLOBIN A1C (Favorites) ??? TSH (Favorites) ??? CHOLESTEROL TOTAL ??? [facility] ??? *Elizabeth Gomez MD (Bariatric Surgery) ??? HYDROcodone-acetaminophen (NORCO) 5-325 mg tablet Appropriate medications prescribed Appropriate patient instructions provided Follow-up as I have indicated. Medications and options explained to include common side effects. Understanding of medications, course, diagnosis, and expectations were expressed by patient/guardian. TRONIC INSTALLER documented in this encounter Plan of Treatment Upcoming Encounters Date Type Department Care Team (Late st Contact Info) Description 07/27/2024 9:40 AM CDT Office Visit [facility] Primary Care [address] [place] [address] Eldon Koehler MD [address] [place] [address] [address] [place] [address] Scheduled Orders Name Type Priority Associated Diagnoses Orde r Schedule CBC WITH DIFFERENTIAL Lab Routine Fibromyalgia Expected: 10/06/2016, Expires: 06/10/2017 COMPREHENSIVE METABOLIC PANEL Lab Routine Other hyperlipidemia Expected: 10/06/2016, Expires: 06/10/2017 HEMOGLOBIN A1C Lab Routine Impaired fasting glucose Expected: 10/06/2016, Expires: 06/10/2017 TSH Lab Routine Other hyperlipidemia Expected: 10/06/2016, Expires: 06/10/2017 CHOLESTEROL TOTAL Lab Routine Other hyperlipidemia Expected: 10/06/2016, Expires: 06/10/2017 Scheduled Referrals Name Type Priority Associated Diagnoses Orde r Schedule AMB REFERRAL TO RHEUMATOLOGY Outpatient Referral Routine Fibromyalgia Ordered: 06/10/2016 AMB REFERRAL TO BARIATRIC SURGERY Outpatient Referral Routine Morbid obesity, unspecified obesity type Ordered: 06/10/2016 documented as of this encounter Visit Diagnoses Diagnosis Other hyperlipidemia- Primary Recurrent major depressive disorder, in partial remission Fibromyalgia Mylagia and myositis, unspecified Morbid obesity, unspecified obesity type Impaired fasting glucose documented in this encounter Care Teams Valve Repairer Relationship Specialty Start Date End Date Eldon Koehler MD PCP - General 10/06/07 documented as of this encounter
--- OUTSIDE RECORDS SUMMARY | 2024-05-22 17:02 | XMS_ITS | Encounter Summary ---
Author Organization [facility] Address [address] [place] [address] Care Team Providers Care Outbound Sales Professional Name Role Phone Eldon Koehler MD Primary Care Provider [phone] Encounter Details Date Type Department Care Team (Late st Contact Info) Description 08/21/2016 Abstract [facility] - [address] [phone] Elizabeth Mcbride MD [address] [place] [address] [address] [place] [address] Social History Tobacco Use Types [...] Visit [facility] Primary Care [facility] [address] [place] [address] [address] [place] [address] Eldon Koehler MD [address] [facility] [address] [place] [address] documented as of this encounter Visit Diagnoses Not on filedocumented in this encounter Care Teams Outbound Sales Professional Relationship Specialty Start Date End Date Eldon Koehler MD PCP - General 10/06/07 documented as of this encounter
--- OUTSIDE RECORDS SUMMARY | 2024-05-22 17:02 | XMS_ITS | Encounter Summary ---
Author Organization [facility] Address [address] [place] [address] Care Team Providers Care Vehicle Painter Name Role Phone Eldon Koehler MD Primary Care Provider Encounter Details Date Type Department Care Team (Late st Contact Info) Description 04/10/2016 Abstract [facility] Internal Medicine [address] [phone] Eldon Koehler MD [address] [place] [address] [address] [place] [address] Social History Tobacco Use Types [...] Description 07/27/2024 9:40 AM CDT Office Visit [facility] Primary Care [address] [place] [address] Eldon Koehler MD [address] [place] [address] [address] [place] [address] documented as of this encounter Visit Diagnoses Not on filedocumented in this encounter Care Teams Vehicle Painter Relationship Specialty Start Date End Date Eldon Koehler MD PCP - General 10/06/07 documented as of this encounter
--- OUTSIDE RECORDS SUMMARY | 2024-05-22 17:02 | XMS_ITS | Encounter Summary ---
Author Organization [facility] Address [address] [place] [address] Care Team Providers Care Computer Terminal Operator Name Role Phone Eldon Koehler MD Primary Care Provider [phone] Reason for Visit * Reason Comments Thyroid Disorder (office visit) 2 month f/u Cholesterol Problem Encounter Details Date Type Department Care Team (Latest Contact Info) Description 04/03/2016 12:15 PM TANK REFINISHER Office Visit [facility] Internal Medicine [address] [address] Eldon Koehler MD [address] [place] [address] Other hyperlipidemia (Primary Dx); Fibromyalgia; Vitamin D deficiency; Osteoarthritis of multiple joints, unspecified osteoarthritis type Social History Tobacco Use Types Packs/Day [...] Sign Reading Time Taken Comments Blood Pressure 122/74 04/03/2016 12:02 PM TANK REFINISHER Pulse - - Temperature - - Respiratory Rate - - Oxygen Saturation - - Inhaled Oxygen Concentration - - Weight 134.3 kg (296 lb) 04/03/2016 12:02 PM TANK REFINISHER Height 167.6 cm (5' 6 ) 04/03/2016 12:02 PM TANK REFINISHER Body Mass Index 47.78 04/03/2016 12:02 PM TANK REFINISHER documented in this encounter Progress Notes * Eldon Koehler MD - 04/03/2016 12:15 PM CST Subjective: Winifred Rodriguez is a 65 y.o. female. tkr reviewed Swelling le Had v doppler neg, in lymphedema rx now sevee myalgias thighs post op On percocet On lyrica, cymbalta, celebrex Pain severe Has had in past Gluc slight high post op Asthma ok gerd ok depn ok Med reviewed Recent lab reviewed Patient [...] ??? Hypothyroidism 04/19/2005 ??? Osteoarthritis 10/19/2004 ??? Depressive disorder, not elsewhere classified 06/08/2003 ??? Hyperlipemia 06/07/2003 Current Outpatient Prescriptions [...] daily at bedtime. 90 Tablet 1 ??? scopolamine (TRANSDERM-SCOP) 1.5 mg (1 mg over 3 days) patch Apply 1 Patch (1.5 mg) to skin as directed see administration instructions Every 72 hrs. 2 Patch 1 ??? albuterol HFA 90 mcg inhaler [...] Oral Tab Take by mouth daily. ??? furosemide (LASIX) 20 mg tablet Take 1 Tablet (20 mg) by mouth daily. 30 Tablet 3 ??? [DISCONTINUED] HYDROcodone-acetaminophen (NORCO) 5-325 mg tablet Take 1 Tablet by mouth every 4hours as needed for Pain, Moderate. Max Daily Amount: 6 Tablet 90 Tablet 0 No current facility-administered medications on file prior [...] COL[facility] Family History Problem Relation Age of Onset ??? Colon Cancer Mother Social History Substance Use Topics ??? Smoking status: Never Smoker ??? Smokeless tobacco: Never Used ??? Alcohol use No Review of Systems: During the review of systems, the following significant history is obtained from the patient: Constitutional: denies fevers, chills, sweats, fatigue, malaise, anorexia, weight loss Eye: denies visual disturbance, discharge, pain Ear, Nose, Mouth, Throat: denies hearing loss, ear issues, nasal congestion, neck mass, oral issues, hoarse voice Respiratory: denies cough, dyspnea, stridor, wheeze Cardiovascular: denies chest pain, exertional chest pressure/discomfort, fatigue, nausea, syncope, shortness of breath Gastrointestinal: denies abdominal pain, change in bowel habits, constipation, diarrhea, dsyphagia,reflux symptoms, vomiting Genitourinary: denies dysuria, frequency, incontinence, urgency Exam/Objective: exam: \Blood pressure 122/74, height 5' 6 (1.676 m), weight 134.3 kg (296 lb). General appearance: obest nad Head: Normocephalic, without obvious abnormality, atraumatic [...] or abdomen. Lymphatics: No focal or generalized lymphadenopathy.neck Ext edema rle Tenderness upper thighs bilat Pulses ok Gait ok, slow out of chair Mood stable Assessment and Plan: ASSESSMENT: ICD-10-CM ICD-9-CM 1. Other hyperlipidemia E78.4 272.4 COMPREHENSIVE METABOLIC PANEL COMPREHENSIVE METABOLIC PANEL 2. Fibromyalgia M79.7 729.1 CBC WITH DIFFERENTIAL SEDIMENTATION RATE C-REACTIVE PROTEIN TSH SARIKA SCREEN W/REFLEX CYCLIC CITRULLINATED PEPTIDE AB IGG VITAMIN B12 LEVEL CBC WITH DIFFERENTIAL SEDIMENTATION RATE C-REACTIVE PROTEIN TSH SARIKA SCREEN W/REFLEX CYCLIC CITRULLINATED PEPTIDE AB IGG VITAMIN B12 LEVEL 3. Vitamin D deficiency E55.9 268.9 VITAMIN D 25 HYDROXY VITAMIN D 25 HYDROXY 4. Osteoarthritis of multiple joints, unspecified osteoarthritis type M15.9 715.89 diffic issues dangers opioids reviewed Hold statin x 2 weeks reassess Check vit levels R/o pmr or other may need see rheum Dm --diet advised Obesity-BMI PLAN OF CARE Normal BMI ranges: 18-64 yrs: > or = 18.5 and < 25 65 yrs and older: > or = 23 and < 30 Body mass index is 47.78 kg/(m^2). Abnormal high BMI: patient counseled on lifestyle modifications including weight loss and daily exercise. Weight management options discussed. rls cont med Check vit d chtck thyroid may contribute to above PLAN: Orders Placed This Encounter ??? CBC WITH DIFFERENTIAL (Favorites) ??? COMPREHENSIVE METABOLIC PANEL (Favorites) ??? VITAMIN D 25 HYDROXY ??? SEDIMENTATION RATE (Heme/coag/blood bank) ??? C-REACTIVE PROTEIN (Chemistry) ??? TSH (Favorites) ??? SARIKA SCREEN W/REFLEX (Immunology/serology) ??? CYCLIC CITRULLINATED PEPTIDE AB IGG (Immunology/serology) ??? VITAMIN B12 LEVEL (Chemistry) Appropriate medications prescribed Appropriate patient instructions provided Follow-up as I have indicated. Medications and options explained to include common side effects. Understanding of medications, course, diagnosis, and expectations were expressed by patient/guardian. REFINISHER documented in this encounter Plan of Treatment Upcoming Encounters Date Type Department Care Team (Late st Contact Info) Description 07/27/2024 9:40 AM CDT Office Visit [facility] Primary Care [address] [place] [phone] Eldon Koehler MD [address] [place] [address] [address] [place] [address] documented as of this encounter Procedures Procedure Name Priority Date/Time Associated Diagnosis Comments CYCLIC CITRULLINATED PEPTIDE AB IGG Routine 05/22/2016 7:45 AM TANK REFINISHER Fibromyalgia CBC WITH DIFFERENTIAL Routine 05/22/2016 7:45 AM TANK REFINISHER Fibromyalgia VITAMIN D 25 HYDROXY Routine 05/22/2016 7:45 AM TANK REFINISHER Vitamin D deficiency SEDIMENTATION RATE Routine 05/22/2016 7: 45 AM TANK REFINISHER Fibromyalgia C-REACTIVE PROTEIN Routine 05/22/2016 7: 45 AM TANK REFINISHER Fibromyalgia SARIKA SCREEN W/REFLEX Routine 05/22/2016 7 :45 AM TANK REFINISHER Fibromyalgia TSH Routine 05/22/2016 7:45 AM TANK REFINISHER Fibromyalgia VITAMIN B12 LEVEL Routine 05/22/2016 7:4 5 AM TANK REFINISHER Fibromyalgia COMPREHENSIVE METABOLIC PANEL Routine 05/22/2016 7:45 AM TANK REFINISHER Other hyperlipidemia documented in this encounter Results * (ABNORMAL) VITAMIN B12 LEVEL (05/22/2016 7:45 AM TANK REFINISHER) Pathologist [facility] VITAMIN B12 1445(H) 200 - 1100 pg/mL [facility] Comment: Test Performed at: [facility] [address] ??[address] MARY ANN JACOBO DO,MPH Blood 05/22/2016 7:45 AM TANK REFINISHER Eldon Koehler MD CHEMISTRY ORDERABLES [facility] [address] [address] * CYCLIC CITRULLINATED PEPTIDE AB IGG (05/22/2016 7:45 AM TANK REFINISHER) Pathologist [facility] CYCLIC CITRULLINATED PEPTIDE AB IGG <16 UNITS [facility] Comment: Reference Range Negative: ?<20 Weak Positive: ? 20-39 Moderate Positive: ?? 40-59 Strong Positive: ? >59 Test Performed at: [facility] [address] [place] ??[address] MARY ANN JACOBO DO,MPH Blood 05/22/2016 7:45 AM TANK REFINISHER Eldon Koehler MD CHEMISTRY ORDERABLES Performing Organization Address [facility] de Phone Number [facility] [address] [place] [address] * SARIKA SCREEN W/REFLEX (05/22/2016 7:45 AM TANK REFINISHER) Pathologist [facility] SARIKA SCREEN NEGATIVE NEGATIVE [facility] Comment: SARIKA IFA is a first line screen for detecting the presence of up to approximately 150 autoantibodies in various autoimmune diseases. A negative SARIKA IFA result suggests SARIKA-associated autoimmune diseases are not present at this time. Visit Physician FAQs for interpretation of all antibodies in the [place], prevalence, and association with diseases at http://education.Extend Labs/ faq/NXT346 Test Performed at: [facility] [address] [place], [place] ??[address] MARY ANN JACOBO DO,MPH Blood 05/22/2016 7:45 AM TANK REFINISHER Eldon Koehler MD CHEMISTRY ORDERABLES Performing Organization Address [facility] de Phone Number [facility] [address] [place] [address] * TSH (05/22/2016 7:45 AM TANK REFINISHER) Pathologist [facility] TSH 2.00 0.40 - 4.50 mIU/L [facility] Comment: Test Performed at: [facility] [address] [place] ??[phone] MARY ANN JACOBO DO,MPH Blood 05/22/2016 7:45 AM TANK REFINISHER Eldon Koehler MD CHEMISTRY ORDERABLES Performing Organization Address [facility] de Phone Number [facility] [address] [place] [address] * (ABNORMAL) C-REACTIVE PROTEIN (05/22/2016 7:45 AM TANK REFINISHER) [facility] CRP 1.34(H) <0.80 mg/dL [facility] Comment: Please be advised that patients taking Carboxypenicillins may exhibit falsely decreased C-Reactive Protein levels due to an analytical interference in this assay. Test Performed at: [facility] [address] ??[phone] MARY ANN JACOBO DO,MPH Blood 05/22/2016 7:45 AM TANK REFINISHER Eldon Koehler MD CHEMISTRY ORDERABLES Performing Organization Address [facility] de Phone Number [facility] [address] [place] [address] * SEDIMENTATION RATE (05/22/2016 7:45 AM TANK REFINISHER) [facility] ESR (SEDIMENTATION RATE) 24 < OR = 30 mm/h [facility] Comment: Test Performed at: [facility] [id number] [place] [address] ??[phone] TITO RYAN MD Blood 05/22/2016 7:45 AM TANK REFINISHER Eldon Koehler MD HEMATOLOGY ORDERABLE S Performing Organization Address [facility] de Phone Number [facility] [address] [place] [address] * VITAMIN D 25 HYDROXY (05/22/2016 7:45 AM TANK REFINISHER) [facility] VITAMIN D, 25 OH, TOTAL 37 30 - 100 ng/mL [facility] Comment: Vitamin D Status ? 25-OH Vitamin D: Deficiency: ?<20 ng/mL Insufficiency: ? 20 - 29 ng/mL Optimal: ? > or = 30 ng/mL For 25-OH Vitamin D testing on patients on D2-supplementation and patients for whom quantitation of D2 and D3 fractions is required, the QuestAssureD(TM) 25-OH VIT D, (D2,D3), LC/MS/MS is recommended: order code 75947 (patients >2yrs). For more information on this test, go to: http://education.Hojoki/faq/FUB081 (This link is being provided for informational/educational purposes only.) REPORT COMMENT: FASTING:YES Test Performed at: [facility] [address] [place], [place] ??[address] MARY ANN JACOBO DO,MPH Blood 05/22/2016 7:45 AM TANK REFINISHER Eldon Koehler MD CHEMISTRY ORDERABLES [facility] [address] [place] [address] * (ABNORMAL) COMPREHENSIVE METABOLIC PANEL (05/22/2016 7:45 AM TANK REFINISHER) GLUCOSE 97 65 - 99 mg/dL [facility] Comment:Fasting reference in terval BUN 11 7 - 25 mg/dL [facility] CREATININE 0.74 0.50 - 0.99 mg/dL [facility] Comment: For patients >49 years of age, the reference limit for Creatinine is approximately 13% higher for people identified as -Citizen Of [place]. GFR 86 > OR = 60 mL/min/1 .73m2 [facility] GFR, 100 > OR = 60 mL/min/1 .73m2 [facility] [place] BUN/CREAT RATIO NOT APPLICABLE 6 - 22 (calc) [facility] SODIUM 143 135 - 146 mmol/L [facility] POTASSIUM 4.2 3.5 - 5.3 mmol/L [facility] CHLORIDE 104 98 - 110 mmol/L [facility] CO2 32(H) 20 - 31 mmol/L [facility] CALCIUM 9.5 8.6 - 10.4 mg/dL [facility] [place] TOTAL PROTEIN 6.7 6.1 - 8.1 g/dL [facility] ALBUMIN 4.0 3.6 - 5.1 g/dL [facility] GLOBULIN 2.7 1.9 - 3.7 g/dL (calc) [facility] ALBUMIN/GLOBULIN RATIO 1.5 1.0 - 2.5 (calc) [facility] BILIRUBIN TOTAL 0.6 0.2 - 1.2 mg/dL [facility] ALKALINE PHOSPHATASE 157(H) 33 - 130 U/L [facility] AST 14 10 - 35 U/L [facility] ALT 16 6 - 29 U/L [facility] Comment: Test Performed at: [facility] [address] [place], [place] ??[phone] MARY ANN JACOBO DO,MPH Blood 05/22/2016 7:45 AM TANK REFINISHER Eldon Koehler MD CHEMISTRY ORDERABLES [facility] [address] [place] [address] * (ABNORMAL) CBC WITH DIFFERENTIAL (05/22/2016 7:45 AM TANK REFINISHER) WBC 9.6 3.8 - 10.8 Thousand/ uL [facility] . [place] RBC 4.58 3.80 - 5.10 Million/u L [facility] [place] HEMOGLOBIN 12.6 11.7 - 15.5 g/dL [facility] . [place] HEMATOCRIT 39.0 35.0 - 45.0 % [facility] . [place] MCV 85.1 80.0 - 100.0 fL [facility] . [place] MCH 27.6 27.0 - 33.[address] [facility] MCHC 32.4 32.0 - 36.0 g/dL [facility] . [place] RDW 15.8(H) 11.0 - 15.0 % [facility] PLATELETS 344 140 - 400 Thousand/ uL [facility] . [place] MPV 9.4 7.5 - 11.5 fL [facility] . [place] NEUTROPHIL ABSOLUTE 6,576 1,500 - 7,800 cells/uL [facility] LYMPHOCYTE ABSOLUTE 2,074 850 - 3,900 cells/uL [facility] MONOCYTE ABSOLUTE 528 200 - 950 cells/uL [facility] EOSINOPHIL ABSOLUTE 355 15 - 500 cells/uL [facility] BASOPHILS ABSOLUTE 67 0 - 200 cells/uL [facility] NEUTROPHIL 68.5 % [facility] LYMPHOCYTES 21.6 % [facility] MONOCYTE 5.5 % [facility] EOSINOPHILS 3.7 % [facility] BASOPHILS 0.7 % [facility] Comment: Test Performed at: [facility] [address] [place], [place] ??[phone] TITO RYAN MD Blood 05/22/2016 7:45 AM TANK REFINISHER Eldon Koehler MD HEMATOLOGY ORDERABLE S [facility] [place] [address] documented in this encounter Visit Diagnoses Diagnosis Other hyperlipidemia- Primary Fibromyalgia Mylagia and myositis, unspecified Vitamin D deficiency Unspecified vitamin D deficiency Osteoarthritis of multiple joints, unspecified osteoarthritis type documented in this encounter Care Teams Computer Terminal Operator Relationship Specialty Start Date End Date Eldon Koehler MD PCP - General 10/06/07 documented as of this encounter
--- OUTSIDE RECORDS SUMMARY | 2024-05-22 17:02 | XMS_ITS | Encounter Summary ---
Author Organization [facility] Address [address] [place] [address] Care Team Providers Care Dry End Operator Name Role Phone Eldon Koehler MD Primary Care Provider [phone] Encounter Details Date Type Department Care Team (Late st Contact Info) Description 01/19/2016 Abstract [facility] Internal Medicine [address] [phone] Eldon Koehler MD [address] [place] [address] [address] [place] [address] Social History Tobacco Use Types [...] Office Visit [facility] Primary Care [address] [place] [address] Eldon Koehler MD [address] [place] [address] [address] [place] [address] documented as of this encounter Visit Diagnoses Not on filedocumented in this encounter Care Teams Dry End Operator Relationship Specialty Start Date End Date Eldon Koehler MD PCP - General 10/06/07 documented as of this encounter
--- OUTSIDE RECORDS SUMMARY | 2024-05-22 17:03 | XMS_ITS | Encounter Summary ---
Author Organization [facility] Address [address] [place] [address] Care Team Providers Care Learning And Development Intern Name Role Phone Eldon Koehler MD Primary Care Provider [phone] Reason for Visit * Reason Onset Date Comments Medication Refill 07/26/2013 Encounter Details Date Type Department Care Team (Late st Contact Info) Description 07/26/2013 Refill [facility] Internal Medicine [address] [address] Eldon Koehler MD [address] [place] [address] HYPERLIPIDEMIA NEC/NOS (Primary Dx); Restless leg syndrome Social History Tobacco Use [...] Miscellaneous Notes * Telephone Encounter - Jacqueline Andrade - 07/26/2013 2:46 PM CDT NEXT OV 08/18/13 documented in this encounter Plan of Treatment Upcoming Encounters Date Type Department Care Team (Late st Contact Info) Description 07/27/2024 9:40 AM CDT Office Visit [facility] Primary Care [address] [place] [address] Eldon Koehler MD [address] [place] [address] [address] [place] [address] documented as of this encounter Visit Diagnoses Diagnosis HYPERLIPIDEMIA NEC/NOS- Primary Other and unspecified hyperlipidemia Restless leg syndrome Restless legs syndrome (RLS) documented in this encounter Care Teams Learning And Development Intern Relationship Specialty Start Date End Date Eldon Koehler MD PCP - General 10/06/07 documented as of this encounter
--- OUTSIDE RECORDS SUMMARY | 2024-05-22 17:03 | XMS_ITS | Encounter Summary ---
Author Organization [facility] Address [address] [place] [address] Care Team Providers Care Supplier Development Manager Name Role Phone Eldon Koehler MD Primary Care Provider Reason for Visit * Reason Comments Cough wheezing, fever, sta rted Friday. Granddaughter and daughter have RSV Encounter Details Date Type Department Care Team (Late st Contact Info) Description 07/06/2014 2:00 PM GLUING MACHINE FEEDER Office Visit [facility] Internal Medicine [address] [address] Eldon Koehler MD [address] [place] [phone] OM (otitis media), bilateral (Primary Dx); Acute bronchitis Social History Tobacco Use Types Packs/Day Years [...] Sign Reading Time Taken Comments Blood Pressure 116/80 07/06/2014 1:45 PM GLUING MACHINE FEEDER Pulse 106 07/06/2014 1:45 PM GLUING MACHINE FEEDER Temperature - - Respiratory Rate - - Oxygen Saturation 97% 07/06/2014 1:45 PM GLUING MACHINE FEEDER Inhaled Oxygen Concentration - - Weight 137 kg (302 lb) 07/06/2014 1:45 PM GLUING MACHINE FEEDER Height 167.6 cm (5' 6 ) 07/06/2014 1:45 PM GLUING MACHINE FEEDER Body Mass Index 48.74 07/06/2014 1:45 PM GLUING MACHINE FEEDER documented in this encounter Progress Notes * Eldon Koehler MD - 07/06/2014 5:53 PM CST Cough kendrick wheeze Sinus ear pain No fever Sx worse x several days The patient appears alert, well appearing, and in no distress.- bilateral TM fluid noted and pharynx erythematous without exudate., Chest:wheezing noted bilat. Heart sounds are rrr No edema. Abdomen soft, nontender, no masses or organomegaly. ASSESSMENT: Encounter Diagnoses Name Primary? OM (otitis media), bilateral Yes ??? Acute bronchitis Anoro given Risk of levaquin including tendon rupture or severe skin reaction, stop medicine and call if diarrhea, rash, facial swelling or other. PLAN: Orders Placed This Encounter ??? levofloxacin (LEVAQUIN) 500 mg tablet ??? methylPREDNISolone (MEDROL DOSPACK) 4 mg Tablets, Dose Pack NG MACHINE FEEDER documented in this encounter Plan of Treatment Upcoming Encounters Date Type Department Care Team (Late st Contact Info) Description 07/27/2024 9:40 AM CDT Office Visit [facility] [address] [place] [address] Eldon Koehler MD [address] [place] [address] [address] [place] [phone] documented as of this encounter Visit Diagnoses Diagnosis OM (otitis media), bilateral- Primary Acute bronchitis documented in this encounter Care Teams Supplier Development Manager Relationship Specialty Start Date End Date Eldon Koehler MD PCP - General 10/06/07 documented as of this encounter
--- OUTSIDE RECORDS SUMMARY | 2024-05-22 17:03 | XMS_ITS | Encounter Summary ---
Author Organization [facility] Address [address] [place] [address] Care Team Providers Care Medical Terminologist Name Role Phone Eldon Koehler MD Primary Care Provider [phone] Reason for Visit * Reason Comments Hyperlipidemia Encounter Details Date Type Department Care Team (Latest Contact Info) Description 10/13/2013 2:00 PM CDT Office Visit [facility] Internal Medicine [address] [address] Eldon Koehler MD [address] [place] [address] HYPOTHYROIDISM NOS (Primary Dx); HYPERLIPIDEMIA NEC/NOS; DEPRESSIVE DISORDER NEC; GERD (gastroesophageal reflux disease); Otitis externa, bilateral; B12 deficiency; Abnormal glucose; Other screening mammogram; Routine general medical examination at a health care facility; Restless leg syndrome Social History Tobacco Use [...] Reading Time Taken Comments Blood Pressure 120/80 10/13/2013 1:56 PM CDT Pulse - - Temperature - - Respiratory Rate - - Oxygen Saturation - - Inhaled Oxygen Concentration - - Weight 132.5 kg (292 lb) 10/13/2013 1:56 PM CDT Height 167.6 cm (5' 6 ) 10/13/2013 1:56 PM CDT Body Mass Index 47.13 10/13/2013 1:56 PM CDT documented in this encounter Progress Notes * Eldon Koehler MD - 10/13/2013 2:14 PM CDT HISTORY OF PRESENT ILLNESS Winifred Rodriguez, a 63 y.o. female. HPI Lab pend Mental status doing better vickie meds Ears better Lost wt On wt watchers depn ok Patient Active Problem List Diagnosis Code ??? HYPERLIPIDEMIA NEC/NOS 272.4 ??? DEPRESSIVE DISORDER NEC 311 ??? OSTEOARTHROS NOS-UNSPEC 715.90 ??? HYPOTHYROIDISM NOS 244.9 ??? Headache 784.0 ??? Unspecified Backache 724.5 ??? Unspecified Asthma 493.90 ??? Unspecified Sleep Apnea 780.57 ??? Impaired Fasting Glucose 790.21 ??? Restless Leg Syndrome 333.94 ??? GERD (gastroesophageal reflux disease) 530.81 History Social History ??? Marital Status: Spouse Name: N/A Number of Children: N/A ??? Years of Education: N/A Occupational History ??? Not on file. Social History Main Topics ??? Smoking status: Never Smoker ??? Smokeless tobacco: Never Used ??? Alcohol Use: No ??? Drug Use: No ??? Sexually Active: Not on file Other Topics Concern ??? Not on file Social History Narrative ??? No narrative on file REVIEW OF SYSTEMS Review of Systems Constitutional: severe fatigue HENT: Negative for congestion and sore throat. Respiratory: Negative for cough, sputum production, shortness of breath and wheezing. Cardiovascular: Negative for chest pain, palpitations, orthopnea and leg swelling. Gastrointestinal: Negative for abdominal pain, diarrhea, constipation and blood in stool. Genitourinary: Negative for dysuria. Normal Exam for Routine Visits: \Blood pressure 120/80, height 5' 6 (1.676 m), weight 292 lb (132.45 kg). General appearanceobese nadHead: Normocephalic, without obvious abnormality, [...] sounds. Skin: Skin color, texture, turgor normal. Shingles right outer thigh Lymphatics: No focal or generalized lymphadenopathy. neck Mood stable Encounter Diagnoses Name Primary? HYPOTHYROIDISM NOS Yes ??? HYPERLIPIDEMIA NEC/NOS ??? DEPRESSIVE DISORDER NEC ??? GERD (gastroesophageal reflux disease) ??? Otitis externa, bilateral ??? B12 deficiency ??? Abnormal glucose ??? Other screening mammogram ??? Routine general medical examination at a health care facility ??? Restless leg syndrome The nature of cardiac risk has been fully discussed with this patient. I have made her aware of herLDL target goal given her cardiovascular risk analysis. I have discussed the appropriate diet. The need for lifelong compliance in order to reduce risk is stressed. A regular exercise program is recommended to help achieve and maintain normal body weight, fitness and improve lipid balance. A written copy of a low fat, low cholesterol diet has been given to the patient. Med reviewed bmi reviewed, wt loss advised Health Maintenance Topic Date Due ??? Cervical Cancer Screening 09/10/2007 ??? Breast Cancer Screening 10/30/2010 ??? Influenza Vaccine 01/10/2014 ??? Colorectal Screening 12/29/2019 . PLAN: Orders Placed This Encounter ??? MAMMO DIGITAL SCREEN BILAT: Routine annual mammogram, should not be ordered if patient had mastectomy (order unilateral by side) ??? CBC WITH DIFFERENTIAL ??? COMPREHENSIVE METABOLIC PANEL ??? HEMOGLOBIN A1C ??? LIPID PANEL ??? TSH ??? VITAMIN B12 LEVEL ??? CK ??? montelukast (SINGULAIR) 10 mg tablet ??? rOPINIRole (REQUIP) 0.5 mg tablet ??? atorvastatin (LIPITOR) 20 mg tablet ??? levothyroxine (SYNTHROID) 137 mcg Oral tablet ??? pregabalin (LYRICA) 50 mg Capsule ??? celecoxib (CELEBREX) 200 mg capsule ??? DULoxetine (CYMBALTA) 60 mg Capsule, Delayed Release(E.C.) ??? HYDROcodone-acetaminophen (NORCO) 5-325 mg tablet documented in this encounter Plan of Treatment Upcoming Encounters Date Type Department Care Team (Late st Contact Info) Description 07/27/2024 9:40 AM CDT Office Visit [facility] Primary Care [address] [place] [address] Eldon Koehler MD [address] [place] [address] [address] [place] [address] documented as of this encounter Procedures Procedure Name Priority Date/Time Associated Diagnosis Comments CBC WITH DIFFERENTIAL Routine 11/11/2013 7:40 AM CDT TSH Routine 11/11/2013 7:40 AM CDT HEMOGLOBIN A1C Routine 11/11/2013 7:40 AM CDT VITAMIN B12 LEVEL Routine 11/11/2013 7:4 0 AM CDT CK Routine 11/11/2013 7:40 AM CDT LIPID PANEL Routine 11/11/2013 7:40 AM CDT COMPREHENSIVE METABOLIC PANEL Routine 11/11/2013 7:40 AM CDT documented in this encounter Results * (ABNORMAL) VITAMIN B12 LEVEL (11/11/2013 7:40 AM CDT) VITAMIN B12 1,316(H) 211 - 946 pg/mL [facility] 11/11/2013 7:40 AM CDT 11/11/2013 2:45 PM CDT Narrative [facility] - 11/12/2013 7:22 AM CDT Performed at: ??01 - [address] ??[id number] Last Cleaner: Minh Solis MD, Phone: ??[phone] Eldon Koehler MD CHEMISTRY ORDERABLES Performing Organization Address [facility] Co de Phone Number [facility] * CK (11/11/2013 7:40 AM CDT) Pathologist [facility] CK 51 24 - 173 U/L [facility] 11/11/2013 7:40 AM CDT 11/11/2013 2:45 PM CDT Narrative [facility] - 11/12/2013 7:22 AM CDT Performed at: ??01 - [address] ??[id number] Last Cleaner: Minh Solis MD, Phone: ??[phone] Eldon Koehler MD CHEMISTRY ORDERABLES [facility] * (ABNORMAL) HEMOGLOBIN A1C (11/11/2013 7:40 AM CDT) HEMOGLOBIN A1C 6.1(H) 4.8 - 5.6 % [facility] Comment: ? Increased risk for diabetes: 5.7 - 6.4 ? Diabetes: >6.4 ? Glycemic control for adults with diabetes: <7.0 11/11/2013 7:40 AM CDT 11/11/2013 2:45 PM CDT Narrative [facility] - 11/12/2013 7:22 AM CDT Performed at: ??01 - [facility] ??[id number] Last Cleaner: Minh Solis MD, Phone: ??[phone] Eldon Koehler MD CHEMISTRY ORDERABLES Performing Organization Address [facility] Co de Phone Number [facility] * TSH (11/11/2013 7:40 AM CDT) Pathologist [facility] TSH 1.490 0.450 - 4.500 uIU/mL [facility] 11/11/2013 7:40 AM CDT 11/11/2013 2:45 PM CDT Narrative [facility] - 11/12/2013 7:22 AM CDT Performed at: ??01 - [facility] ??[id number] Last Cleaner: Minh Solis MD, Phone: ??[phone] Eldon Koehler MD CHEMISTRY ORDERABLES Performing Organization Address [facility]/ZIP Co de Phone Number [facility] * CBC WITH DIFFERENTIAL (11/11/2013 7:40 AM CDT) Pathologist [facility] WBC 8.6 3.4 - 10.8 x10E3/uL [facility] RBC 4.69 3.77 - 5.28 x10E6/uL [facility] HEMOGLOBIN 13.2 11.1 - 15.9 g/dL [facility] HEMATOCRIT 41.0 34.0 - 46.6 % [facility] MCV 87 79 - 97 fL [facility] MCH 28.1 26.6 - 33.0 pg [facility] MCHC 32.2 31.5 - 35.7 g/dL [facility] RDW 14.8 12.3 - 15.4 % [facility] PLATELETS 304 150 - 379 x10E3/uL [facility] NEUTROPHIL 70 40 - 74 % [facility] LYMPHOCYTES 21 14 - 46 % [facility] MONOCYTE 5 4 - 12 % [facility] EOSINOPHILS 4 0 - 5 % [facility] BASOPHILS 0 0 - 3 % [facility] NEUTROPHIL ABSOLUTE 6.1 1.4 - 7.0 x10E3/uL [facility] LYMPHOCYTE ABSOLUTE 1.8 0.7 - 3.1 x10E3/uL [facility] MONOCYTE ABSOLUTE 0.4 0.1 - 0.9 x10E3/uL [facility] EOSINOPHIL ABSOLUTE 0.3 0.0 - 0.4 x10E3/uL [facility] BASOPHILS ABSOLUTE 0.0 0.0 - 0.2 x10E3/uL [facility] IMMATURE GRANULOCYTES 0 0 - 2 % [facility] IMMATURE GRANULOCYTES ABSOLUTE 0.0 0.0 - 0.1 x10E3/uL [facility] Comment: A hand-written panel/profile was received from your office. In accordance with the [facility] Ambiguous Test Code Policy dated November 2002, we have assigned CBC with Differential/Platelet, Test Code #[id number] to this request. If this is not the testing you wished to receive on this specimen, please contact the [facility] Client Inquiry/ Technical Services Department to clarify the test order. We appreciate your business. 11/11/2013 7:40 AM CDT 11/11/2013 2:45 PM CDT Narrative [facility] - 11/12/2013 7:22 AM CDT Performed at: ??01 - [address] ??[id number] Last Cleaner: Minh Solis MD, Phone: ??[phone] Eldon Koehler MD HEMATOLOGY ORDERABLE S [facility] * LIPID PANEL (11/11/2013 7:40 AM CDT) CHOLESTEROL 157 100 - 199 mg/dL [facility] TRIGLYCERIDE 130 0 - 149 mg/dL [facility] HDL 46 >39 mg/dL [facility] Comment: According to ATP-III Guidelines, HDL-C >59 mg/dL is considered a negative risk factor for CHD. VLDL CHOLESTEROL, CALCULATED 26 5 - 40 mg/dL [facility] LDL CALCULATED 85 0 - 99 mg/dL [facility] 11/11/2013 7:40 AM CDT 11/11/2013 2:45 PM CDT Narrative [facility] - 11/12/2013 7:22 AM CDT Performed at: ??01 - [facility] ??[id number] Last Cleaner: Minh Solis MD, Phone: ??[phone] Eldon Koehler MD CHEMISTRY ORDERABLES [facility] * (ABNORMAL) COMPREHENSIVE METABOLIC PANEL (11/11/2013 7:40 AM CDT) GLUCOSE 106(H) 65 - 99 mg/dL [facility] BUN 13 8 - 27 mg/dL [facility] CREATININE 0.87 0.57 - 1.00 mg/dL [facility] GFR 72 >59 mL/min/1.7 3 [facility] GFR, 83 >59 mL/min/1.7 3 [facility] BUN/CREAT RATIO 15 11 - 26 [facility] SODIUM 142 134 - 144 mmol/L [facility] POTASSIUM 4.3 3.5 - 5.2 mmol/L [facility] CHLORIDE 102 97 - 108 mmol/L [facility] CO2 27 18 - 29 mmol/L [facility] CALCIUM 9.2 8.6 - 10.2 mg/dL [facility] TOTAL PROTEIN 6.5 6.0 - 8.5 g/dL [facility] ALBUMIN 4.2 3.6 - 4.8 g/dL [facility] GLOBULIN 2.3 1.5 - 4.5 g/dL [facility] ALBUMIN/GLOBULIN RATIO 1.8 1.1 - 2.5 [facility] BILIRUBIN TOTAL 0.6 0.0 - 1.2 mg/dL [facility] ALKALINE PHOSPHATASE 160(H) 39 - 117 IU/L [facility] AST 17 0 - 40 IU/L [facility] ALT 21 0 - 32 IU/L [facility] 11/11/2013 7:40 AM CDT 11/11/2013 2:45 PM CDT Narrative [facility] - 11/12/2013 7:22 AM CDT Performed at: ??01 - [facility] [address] ??[id number] Last Cleaner: Minh Solis MD, Phone: ??[phone] Eldon Koehler MD CHEMISTRY ORDERABLES [facility] documented in this encounter Visit Diagnoses Diagnosis HYPOTHYROIDISM NOS- Primary Unspecified hypothyroidism HYPERLIPIDEMIA NEC/NOS Other and unspecified hyperlipidemia DEPRESSIVE DISORDER NEC Depressive disorder, not elsewhere classified GERD (gastroesophageal reflux disease) Esophageal reflux Otitis externa, bilateral B12 deficiency Other B-complex deficiencies Abnormal glucose Other abnormal glucose Other screening mammogram Routine general medical examination at a health care facility Restless leg syndrome Restless legs syndrome (RLS) documented in this encounter Care Teams Medical Terminologist Relationship Specialty Start Date End Date Eldon Koehler MD PCP - General 10/06/07 documented as of this encounter
--- OUTSIDE RECORDS SUMMARY | 2024-05-22 17:03 | XMS_ITS | Encounter Summary ---
Author Organization [facility] Address [address] [place] [address] Care Team Providers Care Postal Service Sectional Center Manager Name Role Phone Eldon Koehler MD Primary Care Provider [phone] Reason for Visit * Reason Comments Follow Up 3 mo f/u hyperhidros is Encounter Details Date Type Department Care Team (Latest Contact Info) Description 06/28/2014 10:00 AM CAKE WASHER Office Visit [facility] DERMATOLOGY [address] [place] [address] Oniel Mcqueen, IZZY [address] [place] [address] Hyperhidrosis (Primary Dx) Social History Tobacco Use Types [...] Sign Reading Time Taken Comments Blood Pressure 144/88 06/28/2014 10:05 AM CAKE WASHER Pulse - - Temperature - - Respiratory Rate - - Oxygen Saturation - - Inhaled Oxygen Concentration - - Weight 136.1 kg (300 lb) 06/28/2014 10:05 AM CAKE WASHER Height 167.6 cm (5' 6 ) 06/28/2014 10:05 AM CAKE WASHER Body Mass Index 48.42 06/28/2014 10:05 AM CAKE WASHER documented in this encounter Progress Notes * Oniel Mcqueen PA - 06/28/2014 10:07 AM CST Dermatology Outpatient Followup Note Oniel Mcqueen PA-C 06/28/2014 10:07 AM Patient Name: Winifred Rodriguez 1950 Primary Care Physician: Eldon Koehler MD Date of Service: 06/28/2014 Chief Complaint Patient presents with ??? Follow Up 3 mo f/u hyperhidrosis HPI: Patient is 63 y.o. female who presents for followup hyperhidrosis of scalp. Pt states since taking Robinul 1 mg qd, her sweating has significantly improved. She still has perspiration of scalp, but no longer drips down face. Pt now able to occ wear make-up. Pt denies any side effects from the Robinul. Data: Allergies Allergen Reactions ??? Clindamycin Rash and Itching ??? Codeine Nausea and Vomiting Current Medications: Current Outpatient Prescriptions Medication Sig Dispense Refill ??? glycopyrrolate (ROBINUL) 1 mg tablet Take 1 Tab by mouth daily. 30 Tab 2 ??? montelukast (SINGULAIR) 10 mg tablet Take 1 Tab by mouth daily. 90 Tab 3 ??? DULoxetine (CYMBALTA) 60 mg Capsule, Delayed Release(E.C.) Take 1 Cap by mouth daily. 90 Cap 3 ??? pregabalin (LYRICA) 50 mg Capsule Take 1 Cap by mouth 2 times daily. 180 Cap 3 ??? levothyroxine (SYNTHROID) 150 mcg Oral tablet Take 1 Tab by mouth daily cook morning. 90 Tab 3 ??? HYDROcodone-acetaminophen (NORCO) 5-325 mg tablet Take 1 Tab by mouth every 4 hours as needed for Pain, Moderate. 90 Tab 0 ??? rOPINIRole (REQUIP) 1 mg tablet Take 1.5 Tabs by mouth daily at bedtime. 90 Tab 3 ??? albuterol 90 mcg/Actuation HFA inhaler Take 2 Puffs by inhalation 4 times daily as needed for Shortness of Breath. 8.5 Gram 5 ??? atorvastatin (LIPITOR) 20 mg tablet Take 1 Tab by mouth Daily LATE. 90 Tab 3 ??? celecoxib (CELEBREX) 200 mg capsule Take 1 Cap by mouth 2 times daily. 180 Cap 3 ??? omeprazole (PRILOSEC) 20 mg Capsule, Delayed Release(E.C.) Take 1 Cap by mouth daily. 90 Cap 3 ??? cyanocobalamin (VITAMIN B-12) 1,000 mcg Oral Tab Take 1,000 mcg by mouth daily. ??? Cholecalciferol, Vitamin D3, (VITAMIN D) 1,000 unit Oral Tab Take by mouth daily. No current facility-administered medications for this visit. Review of Systems: General ROS: negative for weight changes, fever Dermatological ROS: negative for skin rashes or unusual skin lesions Psychological ROS: negative for anxiety or depressive symptoms Problem List Patient Active Problem List Diagnosis Date Noted ??? 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 Fibromyalgia 04/19/2014 ??? GERD (gastroesophageal reflux disease) 09/16/2013 ??? Restless Leg Syndrome 10/04/2007 ??? Impaired Fasting Glucose 08/03/2007 ??? Unspecified Asthma 06/05/2007 ??? Unspecified Sleep Apnea 06/05/2007 ??? Unspecified Backache 03/02/2007 ??? Headache 12/17/2006 ??? HYPOTHYROIDISM NOS 04/19/2005 ??? OSTEOARTHROS NOS-UNSPEC 10/19/2004 ??? DEPRESSIVE DISORDER NEC 06/08/2003 ??? HYPERLIPIDEMIA NEC/NOS 06/07/2003 Physical Examination: BP 144/88 Ht 5' 6 (1.676 m) Wt 300 lb (136.079 kg) BMI 48.44 kg/m2 General Appearance: Loya skin type II, Well-appearing, not in apparent distress Mood Pleasant, alert and oriented Scalp: Within normal limits Face: Within normal limits Neck: Within normal limits Assessment and Plan: 1. Hyperhidrosis: Improved but pt still symptomatic Will increase Robinul to 2 mg qd RTC 1month Oniel Meyer PA-C Dermatology [facility] (tel) (fax) WASHER documented in this encounter Plan of Treatment Upcoming Encounters Date Type Department Care Team (Late st Contact Info) Description 07/27/2024 9:40 AM CDT Office Visit [facility] Primary Care [address] [place] [address] Eldon Koehler MD [address] [place] [address] [address] [place] [address] documented as of this encounter Visit Diagnoses Diagnosis Hyperhidrosis- Primary Primary focal hyperhidrosis documented in this encounter Care Teams Postal Service Sectional Center Manager Relationship Specialty Start Date End Date Eldon Koehler MD PCP - General 10/06/07 documented as of this encounter
--- OUTSIDE RECORDS SUMMARY | 2024-05-22 17:03 | XMS_ITS | Encounter Summary ---
Author Organization [facility] Address [address] [place] [address] Care Team Providers Care Estate Planning Counselor Name Role Phone Eldon Koehler MD Primary Care Provider [phone] Reason for Visit * Reason Comments Hyperlipidemia Encounter Details Date Type Department Care Team (Late st Contact Info) Description 03/24/2013 1:00 PM ELECTRICAL LINE MECHANIC Office Visit [facility] Internal Medicine [address] [address] Eldon Koehler MD [address] [place] [address] Impaired fasting glucose (Primary Dx); Restless leg syndrome; Unspecified asthma; HYPOTHYROIDISM NOS; Fibromyalgia; Hyperlipidemia Social History Tobacco Use Types Packs/Day Years [...] Sign Reading Time Taken Comments Blood Pressure 120/90 03/24/2013 12:44 PM ELECTRICAL LINE MECHANIC Pulse - - Temperature - - Respiratory Rate - - Oxygen Saturation - - Inhaled Oxygen Concentration - - Weight 137.9 kg (304 lb) 03/24/2013 12:44 PM ELECTRICAL LINE MECHANIC Height 167.6 cm (5' 6 ) 03/24/2013 12:44 PM ELECTRICAL LINE MECHANIC Body Mass Index 49.07 03/24/2013 12:44 PM ELECTRICAL LINE MECHANIC documented in this encounter Progress Notes * Eldon Koehler MD - 03/24/2013 5:28 PM CST HISTORY OF PRESENT ILLNESS Winifred Rodriguez, a 62 y.o. female. HPI vickie thyroid lab Reviewed Inc chol Ache same Anxiety worse, quit job Stress with daughter at home Patient Active Problem List Diagnosis Code ??? HYPERLIPIDEMIA NEC/NOS 272.4 ??? DEPRESSIVE DISORDER NEC 311 ??? OSTEOARTHROS NOS-UNSPEC 715.90 ??? HYPOTHYROIDISM NOS 244.9 ??? Headache 784.0 ??? Unspecified Backache 724.5 ??? Unspecified Asthma 493.90 ??? Unspecified Sleep Apnea 780.57 ??? Impaired Fasting Glucose 790.21 ??? Restless Leg Syndrome 333.94 History Social History ??? Marital Status: Spouse [...] SYSTEMS Review of Systems Constitutional: Negative for fever, chills and weight loss. HENT: Negative for congestion and sore throat. Respiratory: Negative for cough, sputum production, shortness of breath and wheezing. Cardiovascular: Negative for chest pain, palpitations, orthopnea and leg swelling. Gastrointestinal: Negative for abdominal pain, diarrhea, constipation and blood in stool. Genitourinary: Negative for dysuria. Musculoskeletal: Still with leg pain. Skin: Negative for rash and itching. Neurological: Negative for dizziness, focal weakness, seizures and headaches. Psychiatric/Behavioral: Negative for depression. The patient with stress issues work and home Normal Exam for Routine Visits: \Blood pressure 120/90, height 5' 6 (1.676 m), weight 304 lb (137.893 kg). General appearance: healthy appearing, active, alert, cooperative, no distress, social, normally nourished, and in no acute distress Head: Normocephalic, without obvious abnormality, atraumatic Eyes: [...] Lymphatics: No focal or generalized lymphadenopathy. neck Neurological exam reveals alert, oriented, normal speech, no focal findings or movement disorder noted, neck supple without rigidity, cranial nerves II through XII intact, , motor and sensory grosslynormal Encounter Diagnoses Name Primary? Impaired fasting glucose Yes ??? Restless leg syndrome ??? Unspecified asthma ??? HYPOTHYROIDISM NOS ??? Fibromyalgia ??? Hyperlipidemia The nature of cardiac risk has been [...] diet has been given to the patient. klonopin only if needed Flu vac today Med reviewed bmi reviewed, wt loss advised . PLAN: Orders Placed This Encounter ??? CBC WITH DIFFERENTIAL ??? CK ??? COMPREHENSIVE METABOLIC PANEL ??? LIPID PANEL ??? TSH ??? VITAMIN D 25 HYDROXY ??? VITAMIN B12 LEVEL ??? HEMOGLOBIN A1C ??? rOPINIRole (REQUIP) 0.5 mg tablet ??? DISCONTD: clonazePAM (KLONOPIN) 0.5 mg Tablet ??? clonazePAM (KLONOPIN) 0.5 mg Tablet TRICAL LINE MECHANIC documented in this encounter Plan of Treatment Upcoming Encounters Date Type Department Care Team (Late st Contact Info) Description 07/27/2024 9:40 AM CDT Office Visit [facility] Primary Care [facility] [address] [place] [address] [address] [place] [address] Eldon Koehler MD [address] [facility] [address] [place] [address] documented as of this encounter Visit Diagnoses Diagnosis Impaired fasting glucose- Primary Restless leg syndrome Restless legs syndrome (RLS) Unspecified asthma(493.90) Unspecified asthma HYPOTHYROIDISM NOS Unspecified hypothyroidism Fibromyalgia Mylagia and myositis, unspecified Hyperlipidemia Other and unspecified hyperlipidemia documented in this encounter Care Teams Estate Planning Counselor Relationship Specialty Start Date End Date Eldon Koehler MD PCP - General 10/06/07 documented as of this encounter
--- OUTSIDE RECORDS SUMMARY | 2024-05-22 17:03 | XMS_ITS | Encounter Summary ---
Author Organization [facility] Address [address] [place] [address] Care Team Providers Care Travel Writer Name Role Phone Eldon Koehler MD Primary Care Provider Encounter Details Date Type Department Care Team (Late st Contact Info) Description 12/31/2012 Orders Only [facility] Internal Medicine [address] [address] Eldon Koehler MD [address] [place] [address] [address] [place] [address] Hyperlipidemia Social History Tobacco Use Types Packs/Day [...] Office Visit [facility] Primary [facility] [address] [place] [address] [address] [place] [address] Eldon Koehler MD [address] [place] [address] [address] [place] [address] documented as of this encounter Procedures Procedure Name Priority Date/Time Associated Diagnosis Comments TSH Routine 12/16/2012 2:53 PM CDT Hyperlipidemia documented in this encounter Results * TSH (12/16/2012 2:53 PM CDT) TSH 4.01 0.45 - 4.50 uIU/mL EXTERNAL LAB Blood specimen (specimen) 12/16/2012 2:53 PM CDT Eldon Koehler MD CHEMISTRY ORDERABLES EXTERNAL LAB documented in this encounter Visit Diagnoses Diagnosis Hyperlipidemia Other and unspecified hyperlipidemia documented in this encounter Care Teams Travel Writer Relationship Specialty Start Date End Date Eldon Koehler MD PCP - General 10/06/07 documented as of this encounter
--- OUTSIDE RECORDS SUMMARY | 2024-05-22 17:03 | XMS_ITS | Encounter Summary ---
Author Organization [facility] Address [address] [place] [address] Care Team Providers Care Hydro Electric Station Operator Name Role Phone Eldon Koehler MD Primary Care Provider [phone] Reason for Visit * Reason Onset Date Comments Case Management 04/17/2015 IP [facility] [place] Encounter Details Date Type Department Care Team (Late Contact Info) Description 04/17/2015 Telephone [facility] Care Management - [address], [place] [address] Lindsey Benitez RNtactical/mobile watch officer ([facility] [place] ) Social History Tobacco Use Types Packs/Day Years [...] encounter Miscellaneous Notes * Telephone Encounter - Lindsey Benitez RN - 04/17/2015 11:39 AM CST Patient is s/p left total knee replacement. She was hospitalized at [facility]. Home health is currently present. Stated this pain is worse than the spinal fusion I had but I will be fine. Explained purpose of call. Agreed to follow up contact in one week. Lindsey Benitez RN, BSN, [facility] Castings Trimmer/[facility] Care Management Tele no: [phone] CLOSURE [place] documented in this encounter Plan of Treatment Upcoming Encounters Date Type Department Care Team (Late st Contact Info) Description 07/27/2024 9:40 AM CDT Office Visit [facility] Primary Care [address] [place] [address] Eldon Koehler MD [address] [place] [address] [address] [place] [address] documented as of this encounter Visit Diagnoses Not on filedocumented in this encounter Care Teams Hydro Electric Station Operator Relationship Specialty Start Date End Date Eldon Koehler MD PCP - General 10/06/07 documented as of this encounter
--- OUTSIDE RECORDS SUMMARY | 2024-05-22 17:03 | XMS_ITS | Encounter Summary ---
Author Organization [facility] Address [address] [place] [address] Care Team Providers Care Wool Supplier Name Role Phone Eldon Koehler MD Primary Care Provider [phone] Reason for Referral * Eval and Treat (2-4 Days) - Closed Specialty Diagnoses / Procedures Referred By Carmen t Referred To Contact Otolaryngology Diagnoses Ear pain, bilateral Eldon Koehler MD [address] [place] [phone] Daniel Vidales MD NO ADDRESS ON FILE Referral ID Status Reason Start Date Expiration Date V isits Requested Visits Authorized [id number] Closed CRS To Schedule (STL) 09/29/2013 04/01/2014 1 1 Reason for Visit * Reason Onset Date Comments Referral 09/22/2013 Encounter Details Date Type Department Care Team (Late st Contact Info) Description 09/22/[address] [facility] Internal Medicine [address] [address] Eldon Koehler MD [address] [place] [address] Referral Social History Tobacco Use Types Packs/Day Years [...] encounter Miscellaneous Notes * Telephone Encounter - Sofi Raman - 09/23/2013 10:08 AM CDT SENT TO CRS * Telephone Encounter - Blancalenny Sofi - 09/22/2013 4:41 PM CDT Pt is requesting the name of ENT that you would recommend for dx: ear pain documented in this encounter Plan of Treatment Upcoming Encounters Date Type Department Care Team (Late st Contact Info) Description 07/27/2024 9:40 AM CDT Office Visit [facility] Primary Care [address] [place] [address] Eldon Koehler MD [address] [place] [address] [address] Scheduled Referrals Name Type Priority Associated Diagnoses Orde r Schedule AMB REFERRAL TO ENT Outpatient Referral Routine Ear pain, bilateral Ordered: 09/22/2013 documented as of this encounter Visit Diagnoses Diagnosis Ear pain, bilateral- Primary documented in this encounter Care Teams Wool Supplier Relationship Specialty Start Date End Date Eldon Koehler MD PCP - General 10/06/07 documented as of this encounter
--- OUTSIDE RECORDS SUMMARY | 2024-05-22 17:03 | XMS_ITS | Encounter Summary ---
Author Organization [facility] Address [address] [place] [address] Care Team Providers Care Spinning And Winding Supervisor Name Role Phone Eldon Koehler MD Primary Care Provider [phone] Reason for Visit * Reason Onset Date Comments Medication Refill 02/26/2013 Encounter Details Date Type Department Care Team (Late st Contact Info) Description 02/26/2013 Refill [facility] Internal Medicine [address] [phone] Eldon Koehler MD [address] [place] [address] Social History Tobacco Use Types Packs/Day [...] encounter Miscellaneous Notes * Telephone Encounter - David Pope - 02/26/2013 3:17 PM CDT Next appt 03/24/13. documented in this encounter Plan of Treatment Upcoming Encounters Date Type Department Care Team (Late st Contact Info) Description 07/27/2024 9:40 AM CDT Office Visit [facility] Primary Care [address] [place] [address] Eldon Koehler MD [address] [place] [address] [address] [place] [address] documented as of this encounter Visit Diagnoses Not on filedocumented in this encounter Care Teams Spinning And Winding Supervisor Relationship Specialty Start Date End Date Eldon Koehler MD PCP - General 10/06/07 documented as of this encounter
--- OUTSIDE RECORDS SUMMARY | 2024-05-22 17:03 | XMS_ITS | Encounter Summary ---
Author Organization [facility] Address [address] [place] [address] Dr. Castorena: [place] [address] Care Team Providers Care Hemming And Tacking Machine Operator Name Role Phone Eldon Koehler MD Primary Care Provider [phone] Encounter Details Date Type Department Care Team (Late st Contact Info) Description 10/19/2014 Office Visit Initial Department [address] [place] [address] Dr WILKINSONN: [place] [address] Provider, Historical Social History Tobacco Use Types Packs/Day Years [...] [facility] Primary Care [address] [address] Eldon Koehler MD [address] [place] [address] [place] [address] documented as of this encounter Procedures Procedure Name Priority Date/Time Associated Diagnosis Comments CBC WITH DIFFERENTIAL Routine 10/19/2014 8:07 AM CDT VITAMIN D 25 HYDROXY Routine 10/19/2014 8:07 AM CDT SEDIMENTATION RATE Routine 10/19/2014 8: 07 AM CDT TSH Routine 10/19/2014 8:07 AM CDT HEMOGLOBIN A1C Routine 10/19/2014 8:07 AM CDT CK Routine 10/19/2014 8:07 AM CDT LIPID PANEL Routine 10/19/2014 8:07 AM CDT COMPREHENSIVE METABOLIC PANEL Routine 10/19/2014 8:07 AM CDT documented in this encounter Results * (ABNORMAL) HEMOGLOBIN A1C (10/19/2014 8:07 AM CDT) HEMOGLOBIN A1C 6.5(H) <5.7 % of total Hgb [facility] Comment: According to ADA guidelines, hemoglobin A1c <7.0% represents optimal control in non- diabetic patients. Different metrics may apply to specific patient populations. Standards of Medical Care in Diabetes-2013. Diabetes Care. 2013;36:s11-s66 For the purpose of screening for the presence of diabetes <5.7% ? Consistent with the absence of diabetes 5.7-6.4% ?Consistent with increased risk for diabetes ?(prediabetes) >or=6.5% ?Consistent with diabetes This assay result is consistent with diabetes mellitus. Currently, no consensus exists for use of hemoglobin A1c for diagnosis of diabetes for children. REPORT COMMENT: FASTING:YES Test Performed at: [facility] [address] [place], [place] ??[address] MARY ANN JACOBO DO,MPH 10/19/2014 8:07 AM CDT Eldon Koehler MD CHEMISTRY ORDERABLES [facility] [address] [place] [address] * VITAMIN D 25 HYDROXY (10/19/2014 8:07 AM CDT) VITAMIN D, 25 OH, TOTAL 36 30 - 100 ng/mL [facility] Comment: Vitamin D Status ? 25-OH Vitamin D: Deficiency: ?<20 ng/mL Insufficiency: ? 20 - 29 ng/mL Optimal: ? > or = 30 ng/mL For 25-OH Vitamin D testing on patients on D2-supplementation and patients for whom quantitation of D2 and D3 fractions is required, the QuestAssureD(TM) 25-OH VIT D, (D2,D3), LC/MS/MS is recommended: order code 44048 (patients >2yrs). For more information on this test, go to: http://education.[employer]/faq/ZRZ693 Test Performed at: [facility] [address] [place] [address] ??[phone] MARY ANN JACOBO DO,MPH 10/19/2014 8:07 AM CDT Eldon Koehler MD CHEMISTRY ORDERABLES Performing Organization Address [facility] Co de Phone Number [facility] [address] [place] [address] * CK (10/19/2014 8:07 AM CDT) Pathologist [facility] CK 40 29 - 143 U/L [employer] [facility] Comment: REPORT COMMENT: FASTING:YES Test Performed at: [facility] [address] [place], [place] ??[address] MARY ANN JACOBO DO,MPH 10/19/2014 8:07 AM CDT Eldon Koehler MD CHEMISTRY ORDERABLES Performing Organization Address [facility] Co de Phone Number [facility] [address] [place] [address] * (ABNORMAL) COMPREHENSIVE METABOLIC PANEL (10/19/2014 8:07 AM CDT) GLUCOSE 113(H) 65 - 99 mg/dL [facility] Comment:Fasting reference in terval BUN 14 7 - 25 mg/dL [facility] CREATININE 0.87 0.50 - 0.99 mg/dL [facility] Comment: For patients >49 years of age, the reference limit for Creatinine is approximately 13% higher for people identified as -Cuban. GFR 71 > OR = 60 mL/min/1 .73m2 [facility] GFR, 83 > OR = 60 mL/min/1 .73m2 [facility] BUN/CREAT RATIO NOT APPLICABLE 6 - 22 (calc) [facility] SODIUM 140 135 - 146 mmol/L [facility] . [facility] POTASSIUM 4.5 3.5 - 5.3 mmol/L [facility] . [facility] CHLORIDE 104 98 - 110 mmol/L [facility] . [facility] CO2 26 19 - 30 mmol/L [facility] [employer] [facility] . [facility] CALCIUM 9.3 8.6 - 10.4 mg/dL [facility] TOTAL PROTEIN 6.7 6.1 - 8.1 g/dL [facility] ALBUMIN 4.0 3.6 - 5.1 g/dL [facility] GLOBULIN 2.7 1.9 - 3.7 g/dL (calc) [facility] . [facility] ALBUMIN/GLOBULIN RATIO 1.5 1.0 - 2.5 (calc) [facility] BILIRUBIN TOTAL 0.6 0.2 - 1.2 mg/dL [facility] ALKALINE PHOSPHATASE 149(H) 33 - 130 U/L [facility] AST 21 10 - 35 U/L [facility] . [facility] ALT 32(H) 6 - 29 U/L [facility] Comment: Test Performed at: [facility] [place] [id number] [place] [address] ??[phone] MARY ANN JACOBO DO,MPH 10/19/2014 8:07 AM CDT Eldon Koehler MD CHEMISTRY ORDERABLES [facility] [address] [place] [address] * LIPID PANEL (10/19/2014 8:07 AM CDT) Pathologist [facility] CHOLESTEROL 187 125 - 200 mg/dL [facility] Comment: Test Performed at: [facility] [address] [place], [place] ??[phone] MARY ANN JACOBO DO,MPH HDL 52 > OR = 46 mg/dL [facility] TRIGLYCERIDE 123 <150 mg/dL [facility] LDL CALCULATED 110 <130 mg/dL (calc) [facility] Comment: Desirable range <100 mg/dL for patients with CHD or diabetes and <70 mg/dL for diabetic patients with known heart disease. CHOL/HDL RATIO 3.6 < OR = 5.0 (calc) [facility] TOTAL NON-HDL CHOL(LDL+VLDL) 135 mg/dL (calc) [facility] Comment: Target for non-HDL cholesterol is 30 mg/dL higher than LDL cholesterol target. 10/19/2014 8:07 AM CDT Eldon Koehler MD CHEMISTRY ORDERABLES Performing Organization Address City/[facility]/ZIP Co de Phone Number [facility] [address] [place] [address] * TSH (10/19/2014 8:07 AM CDT) [facility] TSH 1.30 0.40 - 4.50 mIU/L [facility] Comment: REPORT COMMENT: FASTING:YES Test Performed at: [facility] [address] [place], [place] ??[phone] MARY ANN JACOBO DO,MPH 10/19/2014 8:07 AM CDT Eldon Koehler MD CHEMISTRY ORDERABLES Performing Organization Address [facility] Co de Phone Number [facility] [address] [place] [address] * SEDIMENTATION RATE (10/19/2014 8:07 AM CDT) [facility] ESR (SEDIMENTATION RATE) 29 < OR = 30 mm/h [facility] Comment: REPORT COMMENT: FASTING:YES Test Performed at: [facility] [address] ??[phone] TITO RYAN MD 10/19/2014 8:07 AM CDT Eldon Koehler MD HEMATOLOGY ORDERABLE S [facility] [address] [place] [address] * (ABNORMAL) CBC WITH DIFFERENTIAL (10/19/2014 8:07 AM CDT) WBC 9.5 3.8 - 10.8 Thousand/ uL [facility] RBC 4.53 3.80 - 5.10 Million/u L [facility] HEMOGLOBIN 12.9 11.7 - 15.5 g/dL [facility] HEMATOCRIT 40.5 35.0 - 45.0 % [facility] MCV 89.4 80.0 - 100.[address] [facility] MCH 28.4 27.0 - 33.[address] [facility] MCHC 31.7(L) 32.0 - 36.0 g/dL [facility] RDW 15.1(H) 11.0 - 15.0 % [facility] PLATELETS 295 140 - 400 Thousand/ uL [facility] MPV 9.8 7.5 - 11.[address] [facility] NEUTROPHIL ABSOLUTE 6,489 1,500 - 7,800 cells/uL [facility] LYMPHOCYTE ABSOLUTE 2,024 850 - 3,900 cells/uL [facility] MONOCYTE ABSOLUTE 665 200 - 950 cells/uL [facility] EOSINOPHIL ABSOLUTE 276 15 - 500 cells/uL [facility] BASOPHILS ABSOLUTE 48 0 - 200 cells/uL [facility] NEUTROPHIL 68.3 % [facility] LYMPHOCYTES 21.3 % [facility] MONOCYTE 7.0 % [facility] EOSINOPHILS 2.9 % [facility] BASOPHILS 0.5 % [facility] Comment: REPORT COMMENT: FASTING:YES Test Performed at: [facility] [address] ??[phone] TITO RYAN MD 10/19/2014 8:07 AM CDT Eldon Koehler MD HEMATOLOGY ORDERABLE S [facility] [address] [place] [address] documented in this encounter Visit Diagnoses Not on filedocumented in this encounter Care Teams Hemming And Tacking Machine Operator Relationship Specialty Start Date End Date Eldon Koehler MD PCP - General 10/06/07 documented as of this encounter
--- OUTSIDE RECORDS SUMMARY | 2024-05-22 17:03 | XMS_ITS | Encounter Summary ---
Author Organization [facility] Address [address] [place] [address] Care Team Providers Care Electrical Products Engineer Name Role Phone Edlon Koehler MD Primary Care Provider [phone] Reason for Visit * Auth/Cert - Closed Specialty Diagnoses / Procedures Referred By Carmen villalobos Referred To Contact Gastroenterology Diagnoses Colon cancer screening [Z12.11] Family hx colonic polyps [Z83.71] Procedures COLONOSCOPY [facility] Gi Lab [address] [place] [address] Referral ID Status Reason Start Date Expiration Date Visits Re quested Visits Authorized [id number] Closed 1 1 Encounter Details Date Type Department Care Team (Latest Contact Info) Description 03/15/2015 9:51 AM COMMERCIAL PROPERTY ADMINISTRATOR - 03/15/2015 11:45 AM [facility] Hospital Encounter [facility] GI Lab [address] [place] [place] [address] Osei Sutton MD [address] [facility] [place] [address] Discharge Disposition: Home or Self Care Social [...] Sign Reading Time Taken Comments Blood Pressure 113/62 03/15/2015 11:33 AM COMMERCIAL PROPERTY ADMINISTRATOR Pulse 95 03/15/2015 11:33 AM COMMERCIAL PROPERTY ADMINISTRATOR Temperature 36.5 ??C (97.7 ??F) 03/15/2015 1 1:20 AM COMMERCIAL PROPERTY ADMINISTRATOR Respiratory Rate 18 03/15/2015 11:3 3 AM COMMERCIAL PROPERTY ADMINISTRATOR Oxygen Saturation 96% 03/15/2015 11: 33 AM COMMERCIAL PROPERTY ADMINISTRATOR Inhaled Oxygen Concentration - - Weight 137.5 kg (303 lb 3.2 oz) 015 10:24 AM COMMERCIAL PROPERTY ADMINISTRATOR Height 167.6 cm (5' 6 ) 03/15/2015 10:2 4 AM COMMERCIAL PROPERTY ADMINISTRATOR Body Mass Index 48.94 03/15/2015 10:24 AM COMMERCIAL PROPERTY ADMINISTRATOR documented in this encounter Discharge Instructions * Discharge Instructions* Osei Sutton MD - 03/15/2015 10:56 AM COMMERCIAL PROPERTY ADMINISTRATOR Instructions after Colonoscopy After a colonoscopy it [...] weeks, please call the office. Office Phone: [facility] [phone] Exchange: ERCIAL PROPERTY ADMINISTRATOR documented in this encounter Medications at Time of Discharge Medication Sig Dispensed Refills Start Date End Date celecoxib (CELEBREX) 200 mg capsule Take 1 Capsule (200 mg) by mouth 2 times daily. 180 Capsule 3 02/17/2015 11/16/2015 HYDROcodone-acetaminoph en (NORCO) 5-325 mg tablet Take 1 Tablet by mouth every 4 hours as needed for Pain, Moderate. Max Daily Amount: 6 Tablet 90 Tablet 0 02/17/2015 05/16/2015 omeprazole (PRILOSEC) 20 mg Capsule, Delayed Release(E.C.)Indication [...] at bedtime. 90 Tab 3 10/25/2014 08/26/2015 HYDROcodone-acetaminoph en (NORCO) 5-325 mg tabletIndications:Osteo arthrosis, unspecified whether generalized or localized, unspecified site Take 1 Tab by mouth every 4 hours as needed for Pain, Moderate. 90 Tab 0 11/08/2014 07/06/2015 DULoxetine (CYMBALTA) 60 mg Capsule, Delayed Release(E.C.)Indication s:Depressive disorder, not elsewhere classified Take 1 Cap (60 mg) by mouth daily. 90 Cap 3 08/22/2014 06/11/2015 levothyroxine (SYNTHROID) 150 mcg Oral tablet Take 1 Tab by mouth daily director property. 90 Tab 3 05/20/2014 06/14/2015 albuterol 90 mcg/Actuation HFA inhalerIndications:RTI (respiratory tract infection) Take 2 Puffs by inhalation 4 times daily as needed for Shortness of Breath. 8.5 Gram 5 01/21/2014 04/11/2015 azithromycin (ZITHROMAX) 250 mg tabletIndications:RTI (respiratory tract infection) Take 2 tabs the first day and 1 tab days 2-5 1 Package 0 01/21/2014 03/07/2017 documented as of this encounter H&P Notes * Osei Sutton MD - 03/15/2015 10:55 AM CST GI H&P PRE PROCEDURE EVALUATION - Colonoscopy DATE: 03/15/2015 HPI: This is a 64 y.o. female patient scheduled for Colonoscopy for family history of colon cancer. Patient Active Problem List Diagnosis Date Noted [...] DISORDER NEC 06/08/2003 ??? HYPERLIPIDEMIA NEC/NOS 06/07/2003 Past Medical History Diagnosis Date ??? Arthropathy, unspecified, site unspecified ??? Unspecified disorder of lipoid metabolism ??? Unspecified essential hypertension ??? Asthma ??? Injury of back ??? GERD (gastroesophageal reflux disease) ??? Hypothyroidism ??? Obstructive sleep apnea (adult) (pediatric) cpap at night Past Surgical History Procedure Laterality Date ??? Hx cholecystectomy ??? Hx back surgery ??? Hx skin biopsy ??? Hx colonoscopy Prescriptions prior to admission Medication Sig Dispense Refill Last Dose ??? celecoxib (CELEBREX) 200 mg capsule Take 1 Capsule (200 mg) by mouth 2 times daily. 180 Capsule3 03/14/2015 at Unknown time ??? HYDROcodone-acetaminophen (NORCO) 5-325 mg tablet Take 1 Tablet by mouth every 4 hours as needed for Pain, Moderate. Max Daily Amount: 6 Tablet 90 Tablet 0 Past Week at Unknown time ??? omeprazole (PRILOSEC) 20 mg Capsule, Delayed Release(E.C.) Take 1 Capsule (20 mg) by mouth daily. 90 Capsule 3 03/14/2015 at Unknown time ??? atorvastatin (LIPITOR) 20 mg tablet Take 1 Tablet (20 mg) by mouth Daily LATE. 90 Tablet 3 03/14/2015 at Unknown time ??? pregabalin (LYRICA) 50 mg Capsule Take 1 Capsule (50 mg) by mouth 2 times daily. 180 Capsule 3 03/14/2015 at Unknown time ??? rOPINIRole (REQUIP) 2 mg Tablet Take 1 Tab (2 mg) by mouth daily at bedtime. 90 Tab 3 03/14/2015t Unknown time ??? HYDROcodone-acetaminophen (NORCO) 5-325 mg tablet Take 1 Tab by mouth every 4 hours as needed for Pain, Moderate. 90 Tab 0 Past Week at Unknown time ??? DULoxetine (CYMBALTA) 60 mg Capsule, Delayed Release(E.C.) Take 1 Cap (60 mg) by mouth daily. 90 Cap 3 03/14/2015 at Unknown time ??? levothyroxine (SYNTHROID) 150 mcg Oral tablet Take 1 Tab by mouth daily director property. 90 Tab at Unknown time ??? albuterol 90 mcg/Actuation HFA inhaler Take 2 Puffs by inhalation 4 times daily as needed for Shortness of Breath. 8.5 Gram 5 Past Month at Unknown time ??? cyanocobalamin (VITAMIN B-12) 1,000 mcg Oral Tab Take 1,000 mcg by mouth daily. 03/14/2015 at Unknown time ??? Cholecalciferol, Vitamin D3, (VITAMIN D) 1,000 unit Oral Tab Take by mouth daily. 03/14/2015 at Unknown time ??? methylPREDNISolone (MEDROL DOSPACK) 4 mg Tablets, Dose Pack As directed. 1 Package 0 ? ? montelukast (SINGULAIR) 10 mg tablet Take 1 Tab by mouth daily. 90 Tab 3 > Month at Unknown time Allergies Allergen Reactions ??? Clindamycin Rash and Itching ??? Codeine Nausea and Vomiting History Substance Use Topics ??? Smoking status: Never Smoker ??? Smokeless tobacco: Never Used ??? Alcohol Use: No Family History Problem Relation Age of Onset ??? Colon Cancer Mother Head: Normal Lungs: Clear to auscultation bilaterally [...] mentioned procedure(s) as scheduled. Osei Sutton MD ERCIAL PROPERTY ADMINISTRATOR documented in this encounter Procedure Notes * Osei Sutton MD - 03/15/2015 11:16 AM CSTAssociated Order(s): GI REPORT [facility] Endoscopy Patient Name: Winifred Rodriguez Procedure Date No Time: 03/15/2015 Date of : 1950 Admit Type: Outpatient Attending MD: Osei Sutton MD Procedure: Colonoscopy Indications: Colon cancer screening in patient at increased risk: Colorectal cancer in mother Providers: Osei Sutton MD Referring MD: Eldon Koehler MD Medicines: General Anesthesia Complications: No immediate complications. Estimated blood loss: Minimal. Procedure: Informed consent was obtained for the procedure, including moderate sedation after risks were discussed. Based on the pre-procedure assessment, including review of the patient?s medical history, medications, allergies, and review of [...] was good. Estimated Blood Loss: Estimated blood loss was minimal. Findings: A sessile polyp was found in the ascending colon. The polyp was 2 mm in size. The polyp was removed with a cold biopsy forceps. Resection and retrieval were complete. A few small-mouthed diverticula were found in the sigmoid colon. Internal hemorrhoids were found during retroflexion and were small. The exam was otherwise without abnormality. Impression: - One 2 mm polyp in the ascending colon. Resected and retrieved. - Diverticulosis in the sigmoid colon. - Internal hemorrhoids. - The examination was otherwise normal. Recommendation: - Await pathology results. - Repeat colonoscopy in 5 years for surveillance. Osei Sutton MD 03/15/2015 11:15 AM This report has been signed electronically. Number of Addenda: [address]; [place] [address] ERCIAL PROPERTY ADMINISTRATOR documented in this encounter OR Notes * Anesthesia Handoff - Yulia Bonner CRNA - 03/15/2015 11:22 AM CST Post-Anesthetic transfer of care report elements to appropriate post-anesthesia recovery environment completed in accordance with procedure. Vital Signs: BP: 122/64 mmHg (03/15/2015 11:20 AM) Pulse: 98 (03/15/2015 11:20 AM) Temp: 36.5 ??C (03/15/2015 11:20 AM) Resp: 18 (03/15/2015 11:20 AM) SpO2: 93 % (03/15/2015 11:20 AM) 11:22 AM Yulia Bonner CRNA ERCIAL PROPERTY ADMINISTRATOR * Brenda-OP - Kandi Woodruff RN - 03/15/2015 10:27 AM CST Routine Pre-Anesthesia Protocol for GI Lab Procedures [facility] ORDERS ARE ENTERED ???PER PROTOCOL?? Nursing Communication Orders: o Obtain and record vital signs. o Continuous vital signs (Non-invasive blood pressure, pulse oximetry and ECG) for all inpatients and all patients currently taking beta-blockers. o Place #20 gauge IV in non-dominant, non-operative or otherwise excluded upper extremity o Contact responsible anesthesiologist if recommending use of a #22 gauge IV o See medication section for local Anesthetic for use to initiate IV Laboratory Orders: Screening Protocol o Urine bHCG (serum if necessary) for females of menses, or age greater than 12 years. ?? Point of Care Testing: FOR PATIENTS WITH A HISTORY OF DIABETES, RECEIVING INSULIN, OR EXHIBITINGSIGNS AND SYMPTOMS OF HYPOGLYCEMIA. o POC glucose [...] appropriate, may confirm POC with: Nursing Only [id number] (this lab can be obtained at no cost to the patient when confirming a criticalhigh or critical low POC glucose Medication Orders o Local Anesthetic for use to initiate IV line Lidocaine 2% 0.3ml intradermal ONE TIME to numb are IV catheter insertion PRN IV Fluid: Adult patients (age 18 years or greater) o Lactated Ringers solution to infuse at 125 mL/hour, may discontinue upon discharge from procedurearea. o Patient specific modification as indicated: - If patient is found to have serum creatinine > 2 or history of renal failure, RN may change fluid to NS at 10ml/hr Contact provider to consider dextrose containing fluids for: o NPO patients who have received PO or injectable antihyperglycemic agents and glucose is less [id number] mg/dl o NPO patients who have NOT received PO or injectable antiHYPERglycemic agents and POC glucose is less than 70 mg/dL. o When receiving report on an inpatient, confirm if patient is receiving dextrose containing fluidsto prevent hypoglycemia. Communicate with the anesthesiologist and request glucose containing fluids be continued or added to intraoperative fluids. o Any time a patient???s enteral or parenteral nutrition is interrupted for longer than four hours and POC glucose or serum glucose is less than 100 mg/dL contact provider for dextrose containing fluids o Notify provider for any POC glucose or serum glucose less than 70 mg/dL RESCUE MEDICATION ORDERS - entered by the Pharmacist technical support manager o Meter Glucose less than 70, patient CONSCIOUS, able to swallow and allowed oral intake: ??? Give carbohydrates orally, choose one: - Give 15 gram food choice such as: Regular soda (6 oz), Apple juice (4 oz), Sugar, 1 tablespoon (4packets or 5 cubes), or 1 container regular Jello. - Reminder: avoid mixing sugar into a drink such as soda or juice, as this will constitute 30 gramsof carbs with the sugar and drink. ??? Recheck POC Glucose: - Recheck POC Glucose every 15 minutes and re-treat with 15 grams of carbohydrates until blood glucose is 70 mg/dL or greater. Once POC glucose result is 70 mg/dL or greater after hypoglycemic episode, POC glucose to be checked every 30 minutes for 3 consecutive occurrences with results of 70 mg/dL or greater, then resume previous POC Glucose check orders. o Meter Glucose less than 70, IV Access, patient UNCONSCIOUS, unable to swallow and/or NPO ??? Give dextrose IV: - Dextrose 50%, give 12.5grams IV push ONE TIME ??? Recheck POC Glucose: - Recheck POC Glucose and re-treat every 15 minutes with 12.5 g of Dextrose 50%. Once POC Glucose 70 mg/dL or greater after hypoglycemic episode, POC glucose to be checked every 30 minutes for 3 occurrences, then resume previous POC Glucose check orders o Meter Glucose less than 70, NO IV Accessible, patient UNCONSCIOUS, unable to swallow and/or NPO ??? Give glucagon IM - Glucagon (GLUCAGEN) 1 mg IM ONE TIME - Recheck POC Glucose: o Recheck blood glucose 15 minutes after administration of glucagon and re-treat accordingly. Afteradministration of glucagon is complete insert peripheral IV and notify physician. o Once POC Glucose result is 70 mg/dL or greater after hypoglycemic episode, POC glucose to be checked every 30 minutes for 3 consecutive occurrences with results 70 mg/dL or greater, then resume previous POC orders After Hypoglycemic Symptoms Subside and NOT NPO, Give a Snack o SNACK CHOICES: Should include 1 carb and 1 fat servin saltine crackers and 2 teaspoons peanutbutter; or 1 slice of bread and 2 teaspoons peanut butter; or 1 oz cheese and 6 saltine crackers; or 1 cup 2% milk and 6 saltine crackers. Initiating Department(s): 02/2009 OR; Anesthesia; Nursing; GI Lab Reviewed: 04/11/2012, 11/2014 Revised: 04/11/2012, 12/2014 Approved by: Medical Executive Committee, Nursing and Pharmacy and Therapeutics Date: 01/26/2015 ERCIAL PROPERTY ADMINISTRATOR documented in this encounter Plan of Treatment Upcoming Encounters Date Type Department Care Team (Late st Contact Info) Description 07/27/2024 9:40 AM CDT Office Visit [address] [place] [id number] Eldon Koehler MD [address] [place] [address] [address] [place] [address] documented as of this encounter Procedures Procedure Name Priority Date/Time Associated Diagnosis Comments GI REPORT 03/15/2015 11:17 AM COMMERCIAL PROPERTY ADMINISTRATOR PATHOLOGY Routine 03/15/2015 11:08 AM COMMERCIAL PROPERTY ADMINISTRATOR COLONOSCOPY 03/15/2015 10:53 AM COMMERCIAL PROPERTY ADMINISTRATOR Colon cancer screening Family hx colonic polyps Case Notes NPR documented in this encounter Results * GI REPORT (03/15/2015 11:17 AM COMMERCIAL PROPERTY ADMINISTRATOR) Narrative Transcriptions Osei Sutton MD - 03/15/2015 11:16 AM CST [facility] Endoscopy Patient Name: Winifred Rodriguez Procedure Date No Time: 03/15/2015 Date of : 1950 Admit Type: Outpatient Attending MD: Osei Sutton MD Procedure: Colonoscopy Indications: Colon cancer screening in patient at increased risk: Colorectal cancer in mother Providers: Osei Sutton MD Referring MD: Eldon Koehler MD Medicines: General Anesthesia Complications: No immediate complications. Estimated blood loss: Minimal. Procedure: Informed consent was obtained for the procedure, including moderate sedation after risks were discussed. Based on the pre-procedure assessment, including review of the patient?s medical history, medications, allergies, and review of [...] was good. Estimated Blood Loss: Estimated blood loss was minimal. Findings: A sessile polyp was found in the ascending colon. The polyp was 2 mm in size. The polyp was removed with a cold biopsy forceps. Resection and retrieval were complete. A few small-mouthed diverticula were found in the sigmoid colon. Internal hemorrhoids were found during retroflexion and were small. The exam was otherwise without abnormality. Impression: - One 2 mm polyp in the ascending colon. Resected and retrieved. - Diverticulosis in the sigmoid colon. - Internal hemorrhoids. - The examination was otherwise normal. Recommendation: - Await pathology results. - Repeat colonoscopy in 5 years for surveillance. Osei Sutton MD 03/15/2015 11:15 AM This report has been signed electronically. Number of Addenda: [address]; [place] [address] Osei Sutton MD GI PROCEDURE ORDERAB LES * PATHOLOGY (03/15/2015 11:08 AM COMMERCIAL PROPERTY ADMINISTRATOR) CASE REPORT Surgical Pathology Report ? Case: [id number] ? Authorizing Provider: ??Osei Sutton MD ? Collected: ? 03/15/2015 11:08 AM ? Ordering Location: ? [facility] [address] ??Received: ?03/15/2015 01:44 PM ? Pathologist: ? Kirsty Crowe MD ? Specimen: ?Colon, ascending, polyp ? 03/16/2015 11:13 AM [facility] FINAL DIAGNOSIS LARGE INTESTINE, ASCENDING COLON POLYP, BIOPSY: - TUBULAR ADENOMA. 03/16/2015 11:13 AM [facility] IMEN DESCRIPTION Ascending colon polyp. 03/16/2015 11:13 AM [facility] OPERATIVE PROCEDURE Colonoscopy. 03/16/2015 11:13 AM [facility] CLINICAL INFORMATION Colon cancer screening, ICD code Z12.11, family history of colonic polyps, Z83.71. Colon polyp(s). Adenomatous vs. hyperplastic vs. other. 03/16/2015 11:13 AM [facility] GROSS DESCRIPTION The specimen is received in a container labeled Winifred Rodriguez, ascending colon polyp. It consists of a single piece of howell tissue measuring 0.2 x 0.2 x 0.2 cm. The specimen is submitted entirely labeled A1. NATIVIDAD/gabriela 03/16/2015 11:13 AM [facility] MICROSCOPIC DESCRIPTION The slides are labeled [id number], Winifred Rodriguez. Sections of the ascending colon polyp show a tubular adenoma. There is no evidence of high-grade dysplasia or cancer. 03/16/2015 11:13 AM [facility] COMMENT Special stain and/or immunohistochemical results are interpreted with controls that demonstrate appropriate staining reactions. Note on use of immunocytochemistry reagents: This test was developed and its performance characteristic determined by [facility], Department of Laboratory Medicine. It has not been cleared or approved by the U.S. Food and Drug Administration. The FDA has determined that such clearance or approval is not necessary. The test is used for clinical purpose. It should not be regarded as investigational or for research. This laboratory is certified to perform high complexity testing. Case types starting with WS, WF and WH are performed by [address], [address]. All other case types are performed by [address] [facility], [address]. 03/16/2015 11:13 AM [facility] EMBEDDED IMAGE 03/16/2015 11:13 AM [facility] Tissue ASCENDING COLON STRUCTURE / Unknown 03/15/2015 11:08 AM COMMERCIAL PROPERTY ADMINISTRATOR 03/15/2015 1:44 PM COMMERCIAL PROPERTY ADMINISTRATOR Comment:Colon Polyp(s). Rivera omatous vs hyperplastic vs other. Osei Sutton MD PATHOLOGY/CYTOLOGY O [facility] CLIA# [id number] [address] [address] documented in this encounter Visit Diagnoses Not on filedocumented in this encounter Administered Medications Inactive Administered Medications - up to 3 most recent administrations Medication Order MAR Action Action Date Dose Rate Site lactated ringers solution IV, at 125 mL/hr, PRE-PROCEDURE CONTINUOUS, Starting on Fri03/15/15 at 1030, Until Fri03/15/15 at 1614, Routine, Pre-Procedure New Bag 03/15/2015 10:39 AM COMMERCIAL PROPERTY ADMINISTRATOR 1 25 mL/hr documented in this encounter Active and Recently Administered Medications Times are shown in COMMERCIAL PROPERTY ADMINISTRATOR. Continuous Medication Order 03/13/2015 03/14/2015 03/15/2015 lactated ringers solution (CANCELED) IV, at 125 mL/hr, PRE-PROCEDURE CONTINUOUS, Starting on Fri03/15/15 at 1030, Until Fri03/15/15 at 1614, Routine, Pre-Procedure 1039 (New Bag - Prov ider: Kandi Woodruff RN)1116 (Fluid Volume - Provider: Yulia Bonner CRNA) documented in this encounter Care Teams Electrical Products Engineer Relationship Specialty Start Date End Date Eldon Koehler MD PCP - General 10/06/07 documented as of this encounter
--- OUTSIDE RECORDS SUMMARY | 2024-05-22 17:03 | XMS_ITS | Encounter Summary ---
Author Organization [facility] Address [address] [place] [address] Care Team Providers Care Plumber Pipe Fitting Name Role Phone Eldon Koehler MD Primary Care Provider [phone] Reason for Referral * Eval and Treat (Routine) - Closed Specialty Diagnoses / Procedures Referred By Carmen t Referred To Contact Sleep Center Diagnoses Sleep apnea Eldon Koehler MD [address] [place] [phone] [address] Referral ID Status Reason Start Date Expiration Date V isits Requested Visits Authorized [id number] Closed CRS To Schedule (STL) 07/14/2013 07/15/2014 1 1 RONMENTAL RESEARCH SCIENTIST Reason for Visit * Reason Comments Hyperlipidemia Encounter Details Date Type Department Care Team (Late st Contact Info) Description 07/14/2013 3:00 PM ENVIRONMENTAL RESEARCH SCIENTIST Office Visit [facility] Internal Medicine [address] [address] Eldon Koehler MD [address] [place] [phone] DEPRESSIVE DISORDER NEC (Primary Dx); HYPERLIPIDEMIA NEC/NOS; HYPOTHYROIDISM NOS; Malaise and fatigue; Sleep apnea Social History Tobacco Use Types Packs/Day Years [...] Reading Time Taken Comments Blood Pressure 120/80 07/14/2013 2:56 PM ENVIRONMENTAL RESEARCH SCIENTIST Pulse - - Temperature - - Respiratory Rate - - Oxygen Saturation - - Inhaled Oxygen Concentration - - Weight 137.9 kg (304 lb) 07/14/2013 2:56 PM ENVIRONMENTAL RESEARCH SCIENTIST Height 167.6 cm (5' 6 ) 07/14/2013 2:56 PM ENVIRONMENTAL RESEARCH SCIENTIST Body Mass Index 49.07 07/14/2013 2:56 PM ENVIRONMENTAL RESEARCH SCIENTIST documented in this encounter Progress Notes * Eldon Koehler MD - 07/14/2013 5:43 PM CST HISTORY OF PRESENT ILLNESS Winifred Rodriguez, a 62 y.o. female. HPI vickie thyroid lab slight inc tsh Pt foggy memoryissues On cpap diffic wt loss Inc chol Ache same depn ok Patient Active Problem List Diagnosis [...] 120/80, height 5' 6 (1.676 m), weight 304 lb (137.893 kg). General appearanceobese nadHead: Normocephalic, without obvious [...] and sensory grosslynormal Encounter Diagnoses Name Primary? DEPRESSIVE DISORDER NEC Yes ??? HYPERLIPIDEMIA NEC/NOS ??? HYPOTHYROIDISM NOS ??? Malaise and fatigue ??? Sleep apnea The nature of cardiac risk has been [...] to the patient. klonopin only if needed Med reviewed bmi reviewed, wt loss advised Discussed nuvigil Dc requip Sarika to hs only Inc thyorid slight Short fu . PLAN: Orders Placed This Encounter ??? Generic Referral to Sleep Studies ??? levothyroxine (SYNTHROID) 137 mcg Oral tablet RONMENTAL RESEARCH SCIENTIST documented in this encounter Miscellaneous Notes * Patient Instructions - Eldon Koehler MD - 07/14/2013 3:29 PM CST Cut am [employer] Inc thyroid dose 137 Try and stop Requip Consider Nuvigil Schedule sleep study RONMENTAL RESEARCH SCIENTIST documented in this encounter Plan of Treatment Upcoming Encounters Date Type Department Care Team (Late st Contact Info) Description 07/27/2024 9:40 AM CDT Office Visit [facility] Primary Care [address] Eldon Koehler MD [address] [place], [place] [id number] Scheduled Referrals Name Type Priority Associated Diagnoses Orde r Schedule AMB REFERRAL TO SLEEP STUDIES Outpatient Referral Routine Sleep apnea Ordered: 07/14/2013 documented as of this encounter Visit Diagnoses Diagnosis DEPRESSIVE DISORDER NEC- Primary Depressive disorder, not elsewhere classified HYPERLIPIDEMIA NEC/NOS Other and unspecified hyperlipidemia HYPOTHYROIDISM NOS Unspecified hypothyroidism Malaise and fatigue Other malaise and fatigue Sleep apnea Unspecified sleep apnea documented in this encounter Care Teams Plumber Pipe Fitting Relationship Specialty Start Date End Date Eldon Koehler MD PCP - General 10/06/07 documented as of this encounter
--- OUTSIDE RECORDS SUMMARY | 2024-05-22 17:03 | XMS_ITS | Encounter Summary ---
Author Organization [facility] Address [address] [place] [address] Care Team Providers Care Public Safety Officer Name Role Phone Eldon Koehler MD Primary Care Provider [phone] Reason for Referral * Eval and Treat (Routine) - Closed Specialty Diagnoses / Procedures Referred By Contac t Referred To Contact Pain Management Diagnoses Iliotibial band syndrome, right Eldon Koehler MD [address] [place] [phone] Referral ID Status Reason Start Date Expiration Date V isits Requested Visits Authorized [id number] Closed CRS To Schedule (STL) 05/20/2014 05/21/2015 1 1 NSTITCH PANTS OUTSEAMER * Eval and Treat (Routine) - Closed Specialty Diagnoses / Procedures Referred By Contac t Referred To Contact Orthopedic Surgery Diagnoses Shoulder pain, right Eldon Koehler MD [address] [place] [address] Igor Loera MD [address] [place] [phone] Referral ID Status Reason Start Date Expiration Date V isits Requested Visits Authorized [id number] Closed CRS To Schedule (STL) 05/20/2014 05/21/2015 1 1 NSTITCH PANTS OUTSEAMER Reason for Visit * Reason Comments Shoulder Pain rt one Knee Pain lt one Ear Pain both Cyst knots on rt leg whic h are very pain Encounter Details Date Type Department Care Team (Late st Contact Info) Description 05/20/2014 9:30 AM CHAINSTITCH PANTS OUTSEAMER Office Visit [facility] Internal Medicine [address] [address] Eldon Koehler MD [address] [place] [address] Fibromyalgia (Primary Dx); Restless leg syndrome; HYPOTHYROIDISM NOS; HYPERLIPIDEMIA NEC/NOS; Hyperhydrosis disorder; Shoulder pain, right; Impaired fasting glucose; Iliotibial band syndrome, right; DEPRESSIVE DISORDER NEC Social History Tobacco Use Types Packs/Day Years [...] Sign Reading Time Taken Comments Blood Pressure 138/86 05/20/2014 9:31 AM CHAINSTITCH PANTS OUTSEAMER Pulse - - Temperature 36.9 ??C (98.4 ??F) 05/20/2014 9:31 AM CS T Respiratory Rate - - Oxygen Saturation - - Inhaled Oxygen Concentration - - Weight 136.1 kg (300 lb) 05/20/2014 9:31 AM CHAINSTITCH PANTS OUTSEAMER Height 167.6 cm (5' 6 ) 05/20/2014 9:31 AM CHAINSTITCH PANTS OUTSEAMER Body Mass Index 48.42 05/20/2014 9:31 AM CHAINSTITCH PANTS OUTSEAMER documented in this encounter Progress Notes * Eldon Koehler MD - 05/20/2014 9:43 AM CST Winifred Daniel Michael, a 63 y.o. female. Right shoulder pain Right multiple trigger points Mood ok In counseling Daughter again Chol reviewed last lab ok thyorid reviwed on med Still occ headaches Obesity reviewed, no wt loss Patient Active Problem List Diagnosis Code ??? HYPERLIPIDEMIA NEC/NOS 272.4 ??? DEPRESSIVE DISORDER NEC 311 ??? OSTEOARTHROS NOS-UNSPEC 715.90 ??? HYPOTHYROIDISM NOS 244.9 ??? Headache 784.0 ??? Unspecified Backache 724.5 ??? Unspecified Asthma 493.90 ??? Unspecified Sleep Apnea 780.57 ??? Impaired Fasting Glucose 790.21 ??? Restless Leg Syndrome 333.94 ??? GERD (gastroesophageal reflux disease) 530.81 ??? Fibromyalgia 729.1 History Social History ??? Marital Status: Spouse [...] Normal Exam for Routine Visits: \Blood pressure 138/86, temperature 98.4 ??F (36.9 ??C), temperature source Oral, height 5' 6 (1.676 m), weight 300 lb (136.079 kg). General appearanceobese nadHead: Normocephalic, without obvious [...] sounds. Skin: Skin color, texture, turgor normal. pain lat iliotibial band, trigger pts Shoulder cannot abd right shouoder Lymphatics: No focal or generalized lymphadenopathy. neck Mood stable Encounter Diagnoses Name Primary? Fibromyalgia Yes ??? Restless leg syndrome ??? HYPOTHYROIDISM NOS ??? HYPERLIPIDEMIA NEC/NOS ??? Hyperhydrosis disorder ??? Shoulder pain, right ??? Impaired fasting glucose ??? Iliotibial band syndrome, right ??? DEPRESSIVE DISORDER NEC The nature of cardiac risk has been [...] Med reviewed bmi reviewed, wt loss advised Caution con lundy reviewed PLAN: Orders Placed This Encounter ??? CBC WITH DIFFERENTIAL ??? CK ??? COMPREHENSIVE METABOLIC PANEL ??? LIPID PANEL ??? TSH ??? VITAMIN D 25 HYDROXY ??? SEDIMENTATION RATE ??? HEMOGLOBIN A1C ??? Generic Referral to Orthopedic Surgery ??? Generic Referral to Pain Management ??? rOPINIRole (REQUIP) 1 mg tablet ??? montelukast (SINGULAIR) 10 mg tablet ??? DULoxetine (CYMBALTA) 60 mg Capsule, Delayed Release(E.C.) ??? pregabalin (LYRICA) 50 mg Capsule ??? levothyroxine (SYNTHROID) 150 mcg Oral tablet NSTITCH PANTS OUTSEAMER documented in this encounter Plan of Treatment Upcoming Encounters Date Type Department Care Team (Late st Contact Info) Description 07/27/2024 9:40 AM CDT Office Visit [facility] Care [address] [place] [address] Eldon Koehler MD [address] [place] [address] [address] [place] [address] Scheduled Referrals Name Type Priority Associated Diagnoses Order Schedule AMB REFERRAL TO ORTHOPEDIC SURGERY Outpatient Referral Routine Shoulder pain, right Ordered: 05/20/2014 AMB REFERRAL TO PAIN CLINIC Outpatient Referral Routine Iliotibial band syndrome, right Ordered: 05/20/2014 documented as of this encounter Visit Diagnoses Diagnosis Fibromyalgia- Primary Mylagia and myositis, unspecified Restless leg syndrome Restless legs syndrome (RLS) HYPOTHYROIDISM NOS Unspecified hypothyroidism HYPERLIPIDEMIA NEC/NOS Other and unspecified hyperlipidemia Hyperhydrosis disorder Primary focal hyperhidrosis Shoulder pain, right Pain in joint, shoulder region Impaired fasting glucose Iliotibial band syndrome, right DEPRESSIVE DISORDER NEC Depressive disorder, not elsewhere classified documented in this encounter Care Teams Public Safety Officer Relationship Specialty Start Date End Date Eldon Koehler MD PCP - General 10/06/07 documented as of this encounter
--- OUTSIDE RECORDS SUMMARY | 2024-05-22 17:03 | XMS_ITS | Encounter Summary ---
Author Organization [facility] Address [address] [place] [address] Care Team Providers Care Systems Architect Name Role Phone Eldon Koehler MD Primary Care Provider [phone] Reason for Visit * Reason Onset Date Comments Other 01/31/2015 Encounter Details Date Type Department Care Team (Late st Contact Info) Description 01/31/2015 Telephone [facility] Internal Medicine [address] [address] Eldon Koehler MD [address] [place] [phone] Other Social History Tobacco Use Types Packs/Day Years [...] * Telephone Encounter - Jerica Lay - 01/31/2015 1:14 PM CDT Left message on voicemail with instructions per pt auth. * Telephone Encounter - Eldon Koehler MD - 01/31/2015 12:44 PM CDT Notify pt she is due colonsocopy She may want to do that before knee replacements documented in this encounter Plan of Treatment Upcoming Encounters Date Type Department Care Team (Late st Contact Info) Description 07/27/2024 9:40 AM CDT Office Visit [facility] Primary Care [address] [place] [address] Eldon Koehler MD [address] [place] [address] [address] [place] [address] documented as of this encounter Visit Diagnoses Not on filedocumented in this encounter Care Teams Systems Architect Relationship Specialty Start Date End Date Eldon Koehler MD PCP - General 10/06/07 documented as of this encounter
--- OUTSIDE RECORDS SUMMARY | 2024-05-22 17:03 | XMS_ITS | Encounter Summary ---
Author Organization [facility] Address [address] [place] [address] Care Team Providers Care Reed Dipper Name Role Phone Eldon Koehler MD Primary Care Provider Reason for Visit * Reason Onset Date Comments Medication Refill 06/24/2013 Encounter Details Date Type Department Care Team (Late st Contact Info) Description 06/24/2013 Refill [facility] Internal Medicine [address] [phone] Eldon Koehler MD [address] [place] [phone] HYPOTHYROIDISM NOS (Primary Dx) Social History Tobacco Use Types [...] * Telephone Encounter - Glendy Ross - 06/24/2013 5:24 PM CST NEXT OV 06/30/13 IAC REHAB NURSE documented in this encounter Plan of Treatment Upcoming Encounters Date Type Department Care Team (Late st Contact Info) Description 07/27/2024 9:40 AM CDT Office Visit [facility] Primary Care [address] [place] [address] Eldon Koehler MD [address] [place] [address] [address] [place] [address] documented as of this encounter Visit Diagnoses Diagnosis HYPOTHYROIDISM NOS- Primary Unspecified hypothyroidism documented in this encounter Care Teams Reed Dipper Relationship Specialty Start Date End Date Eldon Koehler MD PCP - General 10/06/07 documented as of this encounter
--- OUTSIDE RECORDS SUMMARY | 2024-05-22 17:03 | XMS_ITS | Encounter Summary ---
Author Organization [facility] Address [address] [place] [address] Care Team Providers Care Hand Roller Name Role Phone Eldon Koehler MD Primary Care Provider Reason for Visit * Reason Onset Date Comments Erroneous encounter-disregard 09/27/2013 Encounter Details Date Type Department Care Team (Late st Contact Info) Description 09/27/2013 Telephone [facility] Internal Medicine [address] [address] Eldon Koehler MD [address] [place] [address] [address] [place] [address] Erroneous encounter-disregard Social History Tobacco [...] Office Visit [facility] Primary Care [address] [place] [address] Eldon Koehler MD [address] [place] [address] [address] [place] [address] documented as of this encounter Visit Diagnoses Not on filedocumented in this encounter Care Teams Hand Roller Relationship Specialty Start Date End Date Eldon Koehler MD PCP - General 10/06/07 documented as of this encounter
--- OUTSIDE RECORDS SUMMARY | 2024-05-22 17:03 | XMS_ITS | Encounter Summary ---
Author Organization [facility] Address [address] [place] [address] Care Team Providers Care Occupational Ther Name Role Phone Eldon Koehler MD Primary Care Provider [phone] Encounter Details Date Type Department Care Team (Late st Contact Info) Description 12/07/2013 Orders Only [facility] Internal Medicine [address] [address] Provider, Abstract NO ADDRESS ON [...] Description 07/27/2024 9:40 AM CDT Office Visit [facility] Primary Care [address] [place] [address] Eldon Koehler MD [address] [place] [address] [address] [place] [address] documented as of this encounter Procedures Procedure Name Priority Date/Time Associated Diagnosis Comments MAMMOGRAM REPORT Routine 11/05/2013 documented in this encounter Results * MAMMOGRAM REPORT (11/05/2013) Anatomical Region Laterality Modality Other Abstract Provider MAMMO ORDERABLES documented in this encounter Visit Diagnoses Not on filedocumented in this encounter Care Teams Occupational Ther Relationship Specialty Start Date End Date Eldon Koehler MD PCP - General 10/06/07 documented as of this encounter
--- OUTSIDE RECORDS SUMMARY | 2024-05-22 17:03 | XMS_ITS | Encounter Summary ---
Author Organization [facility] Address [address] [place] [address] Care Team Providers Care Petroleum Sampler Name Role Phone Eldon Koehler MD Primary Care Provider Reason for Visit * Reason Comments Medication Refill Encounter Details Date Type Department Care Team (Late st Contact Info) Description 02/04/2013 Refill [facility] Internal Medicine [address] [phone] Eldon Koehler MD [address] [place] [address] [address] [place] [address] Social History Tobacco Use Types [...] * Telephone Encounter - Jacqueline Andrade - 02/04/2013 3:46 PM CDT NEXT OV 03/24/13 documented in this encounter Plan of Treatment Upcoming Encounters Date Type Department Care Team (Late st Contact Info) Description 07/27/2024 9:40 AM CDT Office Visit [facility] Primary Care [address] [place] [phone] Eldon Koehler MD [address] [place] [address] [address] [place] [address] documented as of this encounter Visit Diagnoses Not on filedocumented in this encounter Care Teams Petroleum Sampler Relationship Specialty Start Date End Date Eldon Koehler MD PCP - General 10/06/07 documented as of this encounter
--- OUTSIDE RECORDS SUMMARY | 2024-05-22 17:03 | XMS_ITS | Encounter Summary ---
Author Organization [facility] Address [address] [place] [address] Care Team Providers Care Art Glass Setter Name Role Phone Eldon Koehler MD Primary Care Provider [phone] Reason for Visit * Auth/Cert - Closed Specialty Diagnoses / Procedures Referred By Carmen villalobos Referred To Contact Gastroenterology Diagnoses Colon cancer screening [Z12.11] Family hx colonic polyps [Z83.71] Procedures COLONOSCOPY [facility] [address] [place] [address] Referral ID Status Reason Start Date Expiration Date Visits Re quested Visits Authorized [id number] Closed 1 1 Encounter Details Date Type Department Care Team (Late st Contact Info) Description 03/15/2015 10:45 AM DIRECTOR FACILITIES MAINTENANCE - 03/15/2015 11:15 AM DIRECTOR FACILITIES MAINTENANCE Surgery [facility] [place] [address] [place] [address] Osei Sutton MD [address] [facility] [email or web address] [place] [address] COLONOSCOPY Surgery Details Date/Time Status Location OR Service Patient Class Case Class Case Type Trauma Case? 03/15/2015 10:45 AM Posted [facility] GI 06 Gastroenterology Outpatient Elective No Panel 1 Procedure LRB Anes Op Region Wound Class Comments COLONOSCOPY N/A General Anus Clean Contaminated -II Surgeon Surgeon Role Service Panel Osei Sutton MD Primary Gastroenterology 1 Case Notes NPR documented in this encounter Social History Tobacco [...] Sign Reading Time Taken Comments Blood Pressure 154/78 03/15/2015 10:24 AM DIRECTOR FACILITIES MAINTENANCE Pulse 91 03/15/2015 10:24 AM DIRECTOR FACILITIES MAINTENANCE Temperature 36.7 ??C (98 ??F) 03/15/2015 10: 24 AM DIRECTOR FACILITIES MAINTENANCE Respiratory Rate 18 03/15/2015 10:2 4 AM DIRECTOR FACILITIES MAINTENANCE Oxygen Saturation 98% 03/15/2015 10: 24 AM DIRECTOR FACILITIES MAINTENANCE Inhaled Oxygen Concentration - - Weight 137.5 kg (303 lb 3.2 oz) 015 10:24 AM DIRECTOR FACILITIES MAINTENANCE Height 167.6 cm (5' 6 ) 03/15/2015 10:2 4 AM DIRECTOR FACILITIES MAINTENANCE Body Mass Index 48.94 03/15/2015 10:24 AM DIRECTOR FACILITIES MAINTENANCE documented in this encounter Discharge Instructions * Discharge Instructions* Osei Sutton MD - 03/15/2015 10:56 AM DIRECTOR FACILITIES MAINTENANCE Instructions after Colonoscopy After a colonoscopy it [...] weeks, please call the office. Office Phone: [facility] [phone] Exchange: CTOR FACILITIES MAINTENANCE documented in this encounter Medications at Time [...] tablet Take 1 Tab by mouth daily pipe inspector. 90 Tab 3 05/20/2014 06/14/2015 albuterol 90 [...] tablet Take 1 Tab by mouth daily pipe inspector. 90 Tab at Unknown time ??? albuterol [...] mentioned procedure(s) as scheduled. Osei Sutton MD CTOR FACILITIES MAINTENANCE documented in this encounter Procedure Notes * Osei Sutton MD - 03/15/2015 11:16 AM CSTAssociated Order(s): GI REPORT [facility] Endoscopy Patient Name: Winifred Rodriguez Procedure [...] electronically. Number of Addenda: [phone] [facility]; [place] [address] CTOR FACILITIES MAINTENANCE documented in this encounter OR Notes * [...] 11:20 AM) 11:22 AM Yulia Bonner CRNA CTOR FACILITIES MAINTENANCE * Brenda-OP - Kandi Woodruff RN - 03/15/2015 10:27 AM CST Routine Pre-Anesthesia Protocol for GI Lab Procedures [facility] ORDERS ARE ENTERED ???PER PROTOCOL?? Nursing Communication [...] appropriate, may confirm POC with: Nursing Only [id number] (this lab can be obtained at no [...] injectable antihyperglycemic agents and glucose is less [id number] mg/dl o NPO patients who have NOT [...] MEDICATION ORDERS - entered by the Pharmacist water softener service supervisor o Meter Glucose less than 70, patient [...] Nursing and Pharmacy and Therapeutics Date: 01/26/2015 CTOR FACILITIES MAINTENANCE documented in this encounter Plan of Treatment Upcoming Encounters Date Type Department Care Team (Late st Contact Info) Description 07/27/2024 9:40 AM CDT Office Visit [facility] Primary Care [address] [place] [address] Eldon Koehler MD [address] [place] [address] [place] [address] [place] [address] documented as of this encounter Procedures Procedure Name Priority Date/Time Associated Diagnosis Comments GI REPORT 03/15/2015 11:17 AM DIRECTOR FACILITIES MAINTENANCE PATHOLOGY Routine 03/15/2015 11:08 AM DIRECTOR FACILITIES MAINTENANCE COLONOSCOPY 03/15/2015 10:53 AM DIRECTOR FACILITIES MAINTENANCE Colon cancer screening Family hx colonic polyps Case Notes NPR documented in this encounter Results * GI REPORT (03/15/2015 11:17 AM DIRECTOR FACILITIES MAINTENANCE) Narrative Transcriptions Osei Sutton MD - 03/15/2015 11:16 AM CST [facility] Endoscopy Patient Name: Winifred Rodriguez Procedure [...] electronically. Number of Addenda: [phone] ; [place] [address] Osei Sutton MD GI PROCEDURE ORDERAB LES * PATHOLOGY (03/15/2015 11:08 AM DIRECTOR FACILITIES MAINTENANCE) CASE REPORT Surgical Pathology Report ? Case: [id number] ? Authorizing Provider: ??Osei Sutton MD ? Collected: ? 03/15/2015 11:08 AM ? Ordering Location: ? [facility] [place] ??Received: ?03/15/2015 01:44 PM ? Pathologist: ? Kirsty Crowe MD ? Specimen: ?Colon, ascending, polyp ? 03/16/2015 11:13 AM [facility] FINAL DIAGNOSIS LARGE INTESTINE, ASCENDING COLON POLYP, BIOPSY: - TUBULAR ADENOMA. 03/16/2015 11:13 AM [facility] IMEN DESCRIPTION Ascending colon polyp. 03/16/2015 11:13 AM [facility] OPERATIVE PROCEDURE Colonoscopy. 03/16/2015 11:13 AM [facility] CLINICAL INFORMATION Colon cancer screening, ICD code Z12.11, family history of colonic polyps, Z83.71. Colon polyp(s). Adenomatous vs. hyperplastic vs. other. 03/16/2015 11:13 AM [facility] GROSS DESCRIPTION The specimen is received in a container labeled Winifred Daniel. Michael, ascending colon polyp. It consists of a single piece of howell tissue measuring 0.2 x 0.2 x 0.2 cm. The specimen is submitted entirely labeled A1. KLA/gabriela 03/16/2015 11:13 AM [facility] MICROSCOPIC DESCRIPTION The slides are labeled [id number], Winifred Rodriguez. Sections of the ascending colon polyp show a tubular adenoma. There is no evidence of high-grade dysplasia or cancer. 03/16/2015 11:13 AM [facility] COMMENT Special stain and/or immunohistochemical results are interpreted with controls that demonstrate appropriate staining reactions. Note on use of immunocytochemistry reagents: This test was developed and its performance characteristic determined by [facility], Department of Laboratory Medicine. It has [...] WS, WF and WH are performed by [address], [place], [address]. All other case types are performed by [facility] [address] [place], [address]. 03/16/2015 11:13 AM DIRECTOR FACILITIES MAINTENANCE [facility] EMBEDDED IMAGE 03/16/2015 11:13 AM DIRECTOR FACILITIES MAINTENANCE [facility] Tissue ASCENDING COLON STRUCTURE / Unknown 03/15/2015 11:08 AM DIRECTOR FACILITIES MAINTENANCE 03/15/2015 1:44 PM DIRECTOR FACILITIES MAINTENANCE Comment:Colon Polyp(s). Rivera omatous vs hyperplastic vs other. Osei Sutton MD PATHOLOGY/CYTOLOGY O RDERATIM [facility] CLIA# [id number] [address] [place] [address] documented in this encounter Visit Diagnoses Diagnosis Colon cancer screening Special screening for malignant neoplasms, colon Family hx colonic polyps Family history of colonic polyps documented in this encounter Administered Medications Inactive Administered Medications - up to 3 most recent administrations Medication Order MAR Action Action Date Dose Rate Site lactated ringers solution IV, at 125 mL/hr, PRE-PROCEDURE CONTINUOUS, Starting on Fri03/15/15 at 1030, Until Fri03/15/15 at 1614, Routine, Pre-Procedure New Bag 03/15/2015 10:39 AM DIRECTOR FACILITIES MAINTENANCE 1 25 mL/hr documented in this encounter Active and Recently Administered Medications Times are shown in DIRECTOR FACILITIES MAINTENANCE. Continuous Medication Order 03/13/2015 03/14/2015 03/15/2015 lactated ringers solution (CANCELED) IV, at 125 mL/hr, PRE-PROCEDURE CONTINUOUS, Starting on Fri03/15/15 at 1030, Until Fri03/15/15 at 1614, Routine, Pre-Procedure 1039 (New Bag - Prov ider: Kandi Woodruff RN)1116 (Fluid Volume - Provider: Yulia Bonner CRNA) documented in this encounter Care Teams Art Glass Setter Relationship Specialty Start Date End Date Eldon Koehler MD PCP - General 10/06/07 documented as of this encounter
--- OUTSIDE RECORDS SUMMARY | 2024-05-22 17:03 | XMS_ITS | Encounter Summary ---
Author Organization [facility] Address [address] [place] [address] Care Team Providers Care Equipment Mechanic Specialist Name Role Phone Eldon Koehler MD Primary Care Provider [phone] Reason for Visit * Reason Onset Date Comments Ear Pain 06/21/2013 Encounter Details Date Type Department Care Team (Late st Contact Info) Description 06/21/2013 Telephone [facility] Internal Medicine [address] [address] Eldon Koehler MD [address] [place] [address] Ear Pain Social History Tobacco Use Types Packs/Day Years [...] * Telephone Encounter - Mitra Ward - 06/21/2013 2:31 PM CST Spoke to pt. TRUCTION SALES REPRESENTATIVE * Telephone Encounter - Eldon Koehler MD - 06/21/2013 2:09 PM CST Can try alt gtts but if not better may need to look at them again TRUCTION SALES REPRESENTATIVE * Telephone Encounter - Mitra Ward - 06/21/2013 2:03 PM CST She hasn't used the Ciprodex drops since Friday because they made her ear feel worse. TRUCTION SALES REPRESENTATIVE * Telephone Encounter - Eldon Koehler MD - 06/21/2013 1:39 PM CST Would stop drops and see what happens TRUCTION SALES REPRESENTATIVE * Telephone Encounter - Mitra Ward - 06/21/2013 1:29 PM CST Pt seen in office on 06/04/13 & was given gen Ciprodex for itching of her ears. Was using prn. Now her lt ear feels clogged & just started hurting. Pt req different ear drops. Also, said to tell you she didn't get a cough after her cold, like she usually always does. TRUCTION SALES REPRESENTATIVE documented in this encounter Plan of Treatment Upcoming Encounters Date Type Department Care Team (Late st Contact Info) Description 07/27/2024 9:40 AM CDT Office Visit [facility] Primary Care [address] [place] [address] Eldon Koehler MD [address] [place] [address] [place] [address] [place] [phone] documented as of this encounter Visit Diagnoses Not on filedocumented in this encounter Care Teams Equipment Mechanic Specialist Relationship Specialty Start Date End Date Eldon Koehler MD PCP - General 10/06/07 documented as of this encounter
--- OUTSIDE RECORDS SUMMARY | 2024-05-22 17:03 | XMS_ITS | Encounter Summary ---
Author Organization [facility] Address [address] [place] [address] Care Team Providers Care Passenger Service Agent Name Role Phone Eldon Koehler MD Primary Care Provider [phone] Reason for Visit * Auth/Cert - Closed Specialty Diagnoses / Procedures Referred By Carmen t Referred To Contact Gastroenterology Diagnoses Colon cancer screening [Z12.11] Family hx colonic polyps [Z83.71] Procedures COLONOSCOPY [facility] [address] [place] [address] Referral ID Status Reason Start Date Expiration Date Visits Re quested Visits Authorized [id number] Closed 1 1 Encounter Details Date Type Department Care Team (Late st Contact Info) Description 03/15/2015 10:54 AM DISH TECHNICIAN Anesthesia Event [facility] [place] [address] [place] [address] Hima Reed MD Formerly [facility] [address] [place] [address] Anesthesia Record Procedure Summary Procedure Name Responsible Anesthesiologist Anesthesia Start Time Anesthesia Stop Time COLONOSCOPY (Anus) Hima Reed MD 03/15/15 1054 03/15/15 1122 Events Date Time Event Comment 03/15/2015 1032 1054 AN Equip Check Anesthesia eq uipment and materials checked in accordance with local policy. 1054 An Start 1054 An Start Data 1057 Pre-Induction Immediate pre- induction anesthetic assessment performed. Vital signs as noted on graphic. 1058 An Induction 1100 Anesthesia Ready 1116 an stop data 1122 An Stop Meds Name Total lidocaine (XYLOCAINE) 2% injection 100 m g propofol (DIPRIVAN) 10??mg/mL injection 100 mg lactated ringers solution 200 mL * Agents Name O2 Inspired O2 N2O Inspired N2O O2 * Blood No blood administrations on file. Lines, Drains, and Airways Type Details Placement Removal Peripheral IV Pre-Hospital Start: No; Orientation: Right; Location: Hand; Device: Angiocath; Gauge: 20 gauge; Insertion Attempts: 2; Patient Tolerance: tolerated well; Power Injectable Compatible: No 03/15/15 1039 by Kandi Woodruff RN 03/15/15 1127 by Kirsty Andrade RN Supraglottic Airway Type: nasal cannula; Confirmation: end tidal CO2, satisfactory chest rise 03/15/15 1054 by Yulia Bonner CRNA 03/15/15 1127 by Kirsty Andrade RN documented in this encounter Social History [...] OR Notes * Anesthesia Postprocedure Evaluation - Yulia Bonner CRNA - 03/15/2015 12:25 PM CST Phase II Postanesthesia Evaluation Including [facility] Modified [place] Score Patient seen and evaluated: [facility] Modified [place]one Score: Score: 20 (03/15/151120) COMMENTS: No apparent Anesthesia related complications RESPIRATORY FUNCTION: Respiration: able to breath and cough freely (03/15/151120) [2=able to breathe and cough freely, 1=dyspnea, limited breathing or tachypnea, 0=apnea or mechanicventilator] O2 Saturation: able to maintain O2 saturation greater than 92% on room air (03/15/151120) [2=able to maintain O2 saturation greater than 92% on room air, 1=needs O2 inhalation to maintain O2 saturation greater than 90%, 0=O2 saturation less than 90% even with O2 supplement] Resp: 18 (03/15/151132)SpO2: 96 % (03/15/151132) CARDIOVASCULAR FUNCTION: BP: 113/62 mmHg (03/15/151132) Circulation: BP within 20% of preanesthetic level (03/15/151120) [2=BP within 20% of preanesthetic level, 1=BP within 20-49% of preanesthetic level, 0=BP within 50%of preanesthetic level] MENTAL STATUS, NEURO, ACTIVITY: PATIENT PARTICIPATION IN EVALUATIONyes Consciousness: fully awake (03/15/151120) [2=fully awake, 1=arousable on calling, 0=not responding] Activity: able to move 4 extremities voluntarily or on command (03/15/151120) [2=able to move 4 extremities voluntarily or on command, 1=able to move 2 extremities voluntarily or on command, 0=unable to move extremities voluntarily or on command] Ambulation: able to stand up and walk straight, on ordered bedrest, or performing at patient's prior level of function (03/15/151120) [2=able to stand up and walk straight, on ordered bedrest, or performing at patient's prior level of function, 1=vertigo when erect, 0=dizziness when supine] TEMPERATURE: Temp: 36.5 ??C (03/15/151119) PAIN: Presence of Pain: denies pain/discomfort (03/15/151124) Pain: pain free (03/15/151120) [2=pain free, 1=pain handled by oral medication, 0=pain requiring parenteral medication] NAUSEA AND VOMITING: no nausea and no vomiting Fasting/Feeding: able to drink fluids, ice chips or NPO (03/15/151120) [2=able to drink fluids, ice chips or NPO, 1=nauseated, 0=nausea and vomiting] POSTOPERATIVE HYDRATION: well hydrated Intake/Output Summary (Last 24 hours) at 03/15/15 1225 Last data filed at 03/15/15 1127 Gross per 24 hour Intake 320 ml Output 0 ml Net 320 ml Urine Output: has voided, adequate urine output per device, or not applicable (03/15/151120) [2=has voided, adequate urine output per device, or not applicable, 1=unable to void but comfortable, 0=unable to void and uncomfortable] WOUND: Dressing: dry and clean or not applicable (03/15/15 1121) [2=dry and clean or not applicable, 1=wet, marked and not increasing, 0=growing area of wetness] Yulia Bonner CRNA 03/15/2015 12:25 PM Post Anesthesia Evaluation Vitals: BP 113/62 mmHg Pulse 95 Temp(Src) 36.5 ??C (Temporal) Resp 18 Ht 5' 6 (1.676 m) Wt 303 lb 3.2 oz (137.531 kg) BMI 48.96 kg/m2 SpO2 96% Pain Rating: Nausea/Vomiting: no nausea and no vomiting Post-Op hydration: well hydrated Respiratory function: no respiratory symptoms Airway patency: normal Cardiovascular function: Normal - Regular rate and rhythm Mental status, LOC: 0=alert; keenly responsive Patient participated in evaluation: yes Anesthetic complications: no Yulia Bonner CRNA TECHNICIAN * Anesthesia Preprocedure Evaluation - Hima Reed MD - 03/15/2015 10:32 AM CST Anesthesia Evaluation Patient summary reviewed Airway TM distance: >3 FB Neck ROM: full Dental Pulmonary - negative ROS and normal exam breath sounds clear to auscultation (+) asthma, Cardiovascular - negative ROS and normal exam (+) hypertension, Rhythm: regular Rate: normal Neuro/Psych - negative ROS (+) headaches, psychiatric history GI/Hepatic/Renal - negative ROS Endo/Other - negative ROS (+) hypothyroidism, arthritis Abdominal Anesthesia History Anesthesia Plan ASA 2 General Intravenous induction Anesthetic plan and risks discussed with Patient. Post-op Pain Control Plan to use IV or IM medication for post-op pain control. TECHNICIAN documented in this encounter Plan of Treatment Upcoming Encounters Date Type Department Care Team (Late st Contact Info) Description 07/27/2024 9:40 AM CDT Office Visit [address] [place] [address] Eldon Koehler MD [address] [place] [address] documented as of this encounter Visit Diagnoses Not on filedocumented in this encounter Administered Medications Inactive Administered Medications - up to 3 most recent administrations Medication Order MAR Action Action Date Dose Rate Site lidocaine 2 % (XYLOCAINE) injection INTRA-PROCEDURE PRN, Starting on Fri03/15/15 at 1058, Until Fri03/15/15 at 1122, Other (See Comment), Routine, Anesthesia Intra-op Given 03/15/2015 10:58 AM DISH TECHNICIAN 100 mg propofol (DIPRIVAN) injection INTRA-PROCEDURE PRN, Starting on Fri03/15/15 at 1058, Until Fri03/15/15 at 1122, Anesthesia Intra-op Given 03/15/2015 10:58 AM DISH TECHNICIAN 100 mg documented in this encounter Care Teams Passenger Service Agent Relationship Specialty Start Date End Date Eldon Koehler MD PCP - General 10/06/07 documented as of this encounter
--- OUTSIDE RECORDS SUMMARY | 2024-05-22 17:03 | XMS_ITS | Encounter Summary ---
Author Organization [facility] Address [address] [place] [address] Care Team Providers Care Campground Manager Name Role Phone Eldon Koehler MD Primary Care Provider Encounter Details Date Type Department Care Team (Late st Contact Info) Description 06/16/2014 Orders Only [facility] Internal Medicine [address] [address] Provider, Abstract NO ADDRESS ON [...] [facility] Primary Care [address] [place] [address] Eldon Koehler MD [address] [place] [address] [address] [place] [address] documented as of this encounter Procedures Procedure Name Priority Date/Time Associated Diagnosis Comments XR KNEE 3 VW LEFT Routine 06/15/2014 documented in this encounter Results * XR KNEE 3 VW LEFT (06/15/2014) Anatomical Region Laterality Modality Lower Extremity Other Abstract Provider DIAGNOSTIC IMAGING O RDERABLES documented in this encounter Visit Diagnoses Not on filedocumented in this encounter Care Teams Campground Manager Relationship Specialty Start Date End Date Eldon Koehler MD PCP - General 10/06/07 documented as of this encounter
--- OUTSIDE RECORDS SUMMARY | 2024-05-22 17:03 | XMS_ITS | Encounter Summary ---
Author Organization [facility] Address [address] [place] [address] Care Team Providers Care Pad Extraction Tender Name Role Phone Eldon Koehler MD Primary Care Provider [phone] Reason for Visit * Reason Comments Establish Care Pt c/o excessive swe ating on scalp - 2 to 3 yrs * Eval and Treat (Routine) - Closed Specialty Diagnoses / Procedures Referred By Contdorian t Referred To Contact Dermatology Diagnoses [place] [address] [facility] [address] [place] [address] Referral ID Status Reason Start Date Expiration Date V isits Requested Visits Authorized [id number] Closed CRS To Schedule (STL) 04/19/2014 05/14/2014 1 1 Encounter Details Date Type Department Care Team (Latest Contact Info) Description 05/31/2014 10:00 AM HAND PAINTER Office Visit [facility] DERMAT[facility]Y [address] [place] [address] Oniel Mcqueen PA [address] [place] [address] Hyperhidrosis (Primary Dx) Social History [...] Sign Reading Time Taken Comments Blood Pressure 134/80 05/31/2014 10:04 AM HAND PAINTER Pulse - - Temperature - - Respiratory Rate - - Oxygen Saturation - - Inhaled Oxygen Concentration - - Weight 136.1 kg (300 lb) 05/31/2014 10:04 AM HAND PAINTER Height 167.6 cm (5' 6 ) 05/31/2014 10:04 AM HAND PAINTER Body Mass Index 48.42 05/31/2014 10:04 AM HAND PAINTER documented in this encounter Progress Notes * Oniel Mcqueen PA - 05/31/2014 10:11 AM CST Dermatology Outpatient History and Physical Oniel Mcqueen PA-C 05/31/2014 10:11 AM Patient Name: iWnifred Rodriguez 1950 Primary Care Physician: Eldon Koehler MD Date of Service: 05/31/2014 Chief Complaint Patient presents with ??? Establish Care Pt c/o excessive sweating on scalp - 2 to 3 yrs HPI: Patient is 63 y.o. 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 Hair gets soaking wet. Exercise and heat exacerbate sweating. Pt states she would rather dress lightly in cold weather rather than bundle up since too much clothes causes perspiration. She has not received any tx for it. Can occur multiple times per day. Past Medical History Diagnosis Date ??? Arthropathy, unspecified, site unspecified ??? Unspecified disorder of lipoid metabolism ??? Unspecified essential hypertension Past Surgical History Procedure Laterality Date ??? Hx cholecystectomy ??? Hx back surgery ??? Hx skin biopsy Current Medications: Current Outpatient Prescriptions Medication Sig Dispense Refill ??? montelukast (SINGULAIR) 10 mg tablet Take 1 Tab by mouth daily. 90 Tab 3 ??? DULoxetine (CYMBALTA) 60 mg Capsule, Delayed Release(E.C.) Take 1 Cap by mouth daily. 90 Cap 3 ??? pregabalin (LYRICA) 50 mg Capsule Take 1 Cap by mouth 2 times daily. 180 Cap 3 ??? 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 90 Tab 3 ??? HYDROcodone-acetaminophen (NORCO) 5-325 [...] No current facility-administered medications for this visit. Medication Allergies: Allergies Allergen Reactions ??? Clindamycin Rash and Itching ??? Codeine Nausea and Vomiting Family History Problem Relation Age of Onset ??? Colon Cancer Mother History Substance Use Topics ??? Smoking status: Never Smoker ??? Smokeless tobacco: Never Used ??? Alcohol Use: No Problem List Patient Active Problem List Diagnosis Date Noted ??? Fibromyalgia 04/19/2014 ??? GERD (gastroesophageal reflux disease) 09/16/2013 ??? Restless Leg Syndrome 10/04/2007 ??? Impaired Fasting Glucose 08/03/2007 ??? Unspecified Asthma 06/05/2007 ??? Unspecified Sleep Apnea 06/05/2007 ??? Unspecified Backache 03/02/2007 ??? Headache 12/17/2006 ??? HYPOTHYROIDISM NOS 04/19/2005 ??? OSTEOARTHROS NOS-UNSPEC 10/19/2004 ??? DEPRESSIVE DISORDER NEC 06/08/2003 ??? HYPERLIPIDEMIA NEC/NOS 06/07/2003 Review of Systems: General ROS: negative for weight changes, fever Dermatological ROS: negative for skin rashes or unusual skin lesions Psychological ROS: positive for - depression Physical Examination: BP 134/80 Ht 5' 6 (1.676 m) Wt 300 lb (136.079 kg) BMI 48.44 kg/m2 General Appearance: Loya skin type II, Well-appearing, not in apparent distress Mood Pleasant, alert and oriented Scalp: Within normal limits Face: Within normal limits Neck: Within normal limits Assessment and Plan: 1. Hyperhidrosis. On scalp Discussed this skin disease which can cause disrupting normal daily activities, cause social anxiety or embarrassment. Discussed treatments, including Drysol solution, iontophoresis, Botox injection, Robinul Specifically discussed side effect of each treatment, especially Robinul, which can cause dry mouth, blurred vision and bladder problems. Pt elected Robinul 1 mg qd today RTC 1 month Thank you for allowing me to participate in the evaluation and care of your patient and the family.I appreciate your thoughtful referrals. Please do not hesitate to contact me if there are any questions or concerns. Oniel Mcqueen PA-C Dermatology [facility] (tel) (fax) PAINTER documented in this encounter Plan of Treatment Upcoming Encounters Date Type Department Care Team (Late st Contact Info) Description 07/27/2024 9:40 AM CDT Office Visit [facility] Primary Care [address] [address] Eldon Koehler MD [address] [place] [address] documented as of this encounter Visit Diagnoses Diagnosis Hyperhidrosis- Primary Primary focal hyperhidrosis documented in this encounter Care Teams Pad Extraction Tender Relationship Specialty Start Date End Date Eldon Koehler MD PCP - General 10/06/07 documented as of this encounter
--- OUTSIDE RECORDS SUMMARY | 2024-05-22 17:03 | XMS_ITS | Encounter Summary ---
Author Organization [facility] Address [address] [place] [address] Care Team Providers Care Clinic Business Manager Name Role Phone Eldon Koehler MD Primary Care Provider [phone] Reason for Visit * Reason Onset Date Comments Medication Refill 11/16/2013 Encounter Details Date Type Department Care Team (Late st Contact Info) Description 11/16/2013 Refill [facility] Internal Medicine [address] [address] Eldon Koehler MD [address] [place] [address] DEPRESSIVE DISORDER NEC (Primary Dx) Social History Tobacco Use Types [...] * Telephone Encounter - Mitra Ward - 11/17/2013 12:08 PM CDT Script faxed to pharmacy. * Telephone Encounter - Mitra Ward - 11/16/2013 2:57 PM CDT [facility] was req a refill on Lyrica. We just gave pt a script for #180 on 10/26/13. Lm to find out if pt mailed to [facility] or got a 90 day supply at a local pharmacy. Called [facility] & she just got a 30 day fill, #60 on 10/29/13. Will need to fax a script to [facility] for the 90 day supply. Next ov 02/16/14. documented in this encounter Plan of Treatment Upcoming Encounters Date Type Department Care Team (Late st Contact Info) Description 07/27/2024 9:40 AM CDT Office Visit [facility] [place] [address] Eldon Koehler MD [address] [place] [address] documented as of this encounter Visit Diagnoses Diagnosis DEPRESSIVE DISORDER NEC- Primary Depressive disorder, not elsewhere classified documented in this encounter Care Teams Clinic Business Manager Relationship Specialty Start Date End Date Eldon Koehler MD PCP - General 10/06/07 documented as of this encounter
--- OUTSIDE RECORDS SUMMARY | 2024-05-22 17:03 | XMS_ITS | Encounter Summary ---
Author Organization [facility] Address [address] [place] [address] Care Team Providers Care Welding Instructor Name Role Phone Eldon Koehler MD Primary Care Provider [phone] Reason for Visit * Reason Onset Date Comments Medication Refill 04/11/2015 Encounter Details Date Type Department Care Team (Late st Contact Info) Description 04/11/2015 Refill [facility] Internal Medicine [address] [id number] Eldon Koehler MD [address] [place] [address] RTI (respiratory tract infection) (Primary Dx) Social History Tobacco Use Types [...] * Telephone Encounter - Jacqueline Akhtar - 04/11/2015 11:49 AM CST Next ov 06/01/15 P PROCESSOR documented in this encounter Plan of Treatment Upcoming Encounters Date Type Department Care Team (Late st Contact Info) Description 07/27/2024 9:40 AM CDT Office Visit [facility] Primary Care [address] [place] [address] Eldon Koehler MD [address] [place] [address] [address] [place] [address] documented as of this encounter Visit Diagnoses Diagnosis RTI (respiratory tract infection)- Primary Other diseases of respiratory system, not elsewhere classified documented in this encounter Care Teams Welding Instructor Relationship Specialty Start Date End Date Eldon Koehler MD PCP - General 10/06/07 documented as of this encounter
--- OUTSIDE RECORDS SUMMARY | 2024-05-22 17:03 | XMS_ITS | Encounter Summary ---
Author Organization [facility] Address [address] [place] [address] Care Team Providers Care Evp And Chief Operating Officer Name Role Phone Eldon Koehler MD Primary Care Provider [phone] Reason for Visit * Reason Onset Date Comments Medication Refill 04/06/2013 Encounter Details Date Type Department Care Team (Late st Contact Info) Description 04/06/2013 Refill [facility] Internal Medicine [address] [address] Eldon Koehler MD [address] [place] [phone] Asthma (Primary Dx) Social History Tobacco Use Types [...] * Telephone Encounter - Jacqueline Andrade - 04/06/2013 12:01 PM CST NEXT OV 06/30/13 TRY VETERINARIAN * Telephone Encounter - Jacqueline Andrade - 04/06/2013 12:01 PM CSTFrom: Winifred Rodriguez To: Eldon Koehler MD Sent: 04/06/2013 8:13 AM POULTRY VETERINARIAN Subject: Medication Renewal Request Original authorizing provider: MD Winifred Wilkes would like a refill of the following medications: montelukast (SINGULAIR) 10 mg Oral tablet [Eldon Koehler MD] Preferred pharmacy: [facility] [address] Comment: I have always used [facility] for this refill. I now need to use our mail order one which is [facility] TRY VETERINARIAN documented in this encounter Plan of Treatment Upcoming Encounters Date Type Department Care Team (Late st Contact Info) Description 07/27/2024 9:40 AM CDT Office Visit [facility] Primary Care [address] [place] [address] Eldon Koehler MD [address] [place] [phone] documented as of this encounter Visit Diagnoses Diagnosis Asthma- Primary Unspecified asthma documented in this encounter Care Teams Evp And Chief Operating Officer Relationship Specialty Start Date End Date Eldon Koehler MD PCP - General 10/06/07 documented as of this encounter
--- OUTSIDE RECORDS SUMMARY | 2024-05-22 17:03 | XMS_ITS | Encounter Summary ---
Author Organization [facility] Address [address] [place] [address] Care Team Providers Care Accounts Payable Associate Name Role Phone Eldon Koehler MD Primary Care Provider [phone] Reason for Visit * Reason Comments Cough started this am, dry cough, started as sore throat yesterday, zoey ear pain Encounter Details Date Type Department Care Team (Late st Contact Info) Description 12/13/2013 9:40 AM CDT Office Visit [facility] Internal Medicine [address] [address] Lacy Vasquez, ANP [address] [place] [address] OM (otitis media), bilateral (Primary Dx); Otitis externa, bilateral; RTI (respiratory tract infection) Social History Tobacco Use Types Packs/Day Years [...] Reading Time Taken Comments Blood Pressure 130/84 12/13/2013 9:43 AM CDT Pulse - - Temperature - - Respiratory Rate - - Oxygen Saturation - - Inhaled Oxygen Concentration - - Weight 129.7 kg (286 lb) 12/13/2013 9:43 AM CDT Height 167.6 cm (5' 6 ) 12/13/2013 9:43 AM CDT Body Mass Index 46.16 12/13/2013 9:43 AM CDT documented in this encounter Progress Notes * Lacy Vasquez, ANP - 12/13/2013 9:49 AM CDT HISTORY OF PRESENT ILLNESS Winifred Rodriguez, a 63 y.o. female. HPI Chief Complaint Patient presents with ??? Cough started this am, dry cough, started as sore throat yesterday, zoey ear pain pt presents with B ear pain and itching x 3 days Started yesterday with cough, sinus congestion Has been swimming a lot lately Denies fever chills NS Occ wheezing, SOB Hx of recurrent fungal ear infections Her most recent labs were reviewed. Diet and exercise were reviewed as noted under Social History. Current medications and allergies were updated. Patient Active Problem List Diagnosis Date Noted ??? GERD (gastroesophageal reflux disease) 09/16/2013 ??? Restless Leg Syndrome 10/04/2007 ??? Impaired Fasting Glucose 08/03/2007 ??? Unspecified Asthma 06/05/2007 ??? Unspecified Sleep Apnea 06/05/2007 ??? Unspecified Backache 03/02/2007 ??? Headache 12/17/2006 ??? HYPOTHYROIDISM NOS 04/19/2005 ??? OSTEOARTHROS NOS-UNSPEC 10/19/2004 ??? DEPRESSIVE DISORDER NEC 06/08/2003 ??? HYPERLIPIDEMIA NEC/NOS 06/07/2003 Family History Problem Relation Age of Onset ??? Colon Cancer Mother Social History Other Topics Concern ??? Not on file History Alcohol Use No History Smoking status ??? Never Smoker Smokeless tobacco ??? Never Used Social History Narrative None on file REVIEW OF SYSTEMS Review of Systems Constitutional: Positive for fatigue. Negative for fever, chills and diaphoresis. HENT: Positive for ear pain, congestion, sore throat, rhinorrhea and sinus pressure. Eyes: Negative. Respiratory: Positive for cough and wheezing. Negative for shortness of breath. Cardiovascular: Negative for chest pain and palpitations. Gastrointestinal: Negative. Endocrine: Negative. Musculoskeletal: Negative. Skin: Negative. Negative for rash. Allergic/Immunologic: Negative. Neurological: Positive for headaches. Negative for weakness. Hematological: Negative. Psychiatric/Behavioral: Negative. PHYSICAL EXAM BP 130/84 Ht 5' 6 (1.676 m) Wt 286 lb (129.729 kg) BMI 46.18 kg/m2 Physical Exam Constitutional: She is oriented to person, place, and time. She appears well- developed and well-nourished. No distress. HENT: Head: Normocephalic and atraumatic. Right Ear: There is swelling (canal red/swollen) and tenderness. Tympanic membrane is erythematous (LMs present). Left Ear: There is swelling and tenderness. Tympanic membrane is erythematous (deep mo fluid, landmarks not visible). White flakes to B canals, Scant White/yellow exudate to R TM Eyes: Conjunctivae are normal. Pupils are equal, round, and reactive to light. Neck: Normal range of motion. Neck supple. Cardiovascular: Normal rate, regular rhythm, normal heart sounds and intact distal pulses. No murmur heard. Pulmonary/Chest: Effort normal. No respiratory distress. She has wheezes (faint insipratory ZULY posterior). Bronchospastic cough induced with deep breathing Musculoskeletal: Normal range of motion. Neurological: She is alert and oriented to person, place, and time. Skin: Skin is warm and dry. She is not diaphoretic. Psychiatric: She has a normal mood and affect. ASSESSMENT and PLAN: ASSESSMENT: Encounter Diagnoses Name Primary? OM (otitis media), bilateral Yes ??? Otitis externa, bilateral ??? RTI (respiratory tract infection) PLAN: Fungal/bacterial OE to bilateral ears- treat with ciprodex/lotrimin OM/URI- levaquin x 7 days Albuterol inhaler prn for wheezing/SOB ENT if not improving. Orders Placed This Encounter ??? clotrimazole (LOTRIMIN) 1 % Solution ??? levofloxacin (LEVAQUIN) 500 mg tablet ??? ciprofloxacin-dexamethasone (CIPRODEX) 0.3-0.1 % Drops, Suspension ??? albuterol 90 mcg/Actuation HFA inhaler Pt given information on new medications including side effects and proper administration. Verbalized understanding. Informed to call with any concerns. Pt instructed to follow-up as needed and/or if symptoms fail to improve or worsen. Future Appointments Date Time Provider Department Center 02/16/2014 2:30 PM Eldon Koehler MD [facility] documented in this encounter Plan of Treatment Upcoming Encounters Date Type Department Care Team (Late st Contact Info) Description 07/27/2024 9:40 AM CDT Office Visit [facility] Care [address] [place] [address] Eldon Koehler MD [address] [place] [address] [address] [place] [address] documented as of this encounter Visit Diagnoses Diagnosis OM (otitis media), bilateral- Primary Otitis externa, bilateral RTI (respiratory tract infection) Other diseases of respiratory system, not elsewhere classified documented in this encounter Care Teams Accounts Payable Associate Relationship Specialty Start Date End Date Eldon Koehler MD PCP - General 10/06/07 documented as of this encounter
--- OUTSIDE RECORDS SUMMARY | 2024-05-22 17:03 | XMS_ITS | Encounter Summary ---
Author Organization [facility] Address [address] [place] [address] Care Team Providers Care Documentation Designer Name Role Phone Eldon Koehler MD Primary Care Provider [phone] Reason for Visit * Reason Comments Medication Refill Encounter Details Date Type Department Care Team (Late st Contact Info) Description 06/14/2015 Refill [facility] Internal Medicine [address] [address] Eldon Koehler MD [address] [place] [phone] Other specified hypothyroidism (Primary Dx) Social [...] * Telephone Encounter - Glendy Ross - 06/15/2015 4:33 PM CST EMILY 05/23/2015,NOV 08/29/15 RTMENT TRAFFIC FREIGHT ROUTER documented in this encounter Plan of Treatment Upcoming Encounters Date Type Department Care Team (Late st Contact Info) Description 07/27/2024 9:40 AM CDT Office Visit [facility] Primary Care [address] [place] [address] Eldon Koehler MD [address] [place] [address] [address] [place] [address] documented as of this encounter Visit Diagnoses Diagnosis Other specified hypothyroidism- Primary documented in this encounter Care Teams Documentation Designer Relationship Specialty Start Date End Date Eldon Koehler MD PCP - General 10/06/07 documented as of this encounter
--- OUTSIDE RECORDS SUMMARY | 2024-05-22 17:03 | XMS_ITS | Encounter Summary ---
Author Organization [facility] Address [address] [place] [address] Care Team Providers Care Mobile Web Application Developer Name Role Phone Eldon Koehler MD Primary Care Provider [phone] Reason for Visit * Reason Onset Date Comments Urinary Frequency 04/18/2015 Needs Orders Written 04/18/2015 Encounter Details Date Type Department Care Team (Late st Contact Info) Description 04/18/2015 Telephone [facility] Internal Medicine [address] [address] Eldon Koehler MD [address] [place] [phone] Urinary Frequency; Needs Orders Written Social History Tobacco Use [...] * Telephone Encounter - Glendy Ross - 04/18/2015 4:52 PM CST Spoke with nurse case management director verbal order given MACHINE OPERATOR * Telephone Encounter - Eldon Koehler MD - 04/18/2015 2:36 PM CST Ok sent UA and cx MACHINE OPERATOR * Telephone Encounter - Glendy Ross - 04/18/2015 2:31 PM CST [facility] clinical nurse called stating pt has possible UTI, burning, frequency, some blood on tissue after voiding, Sx started 2 days ago. Home care nurse is asking if you want HC nurse to collect UA with reflex? Please advise Verbal ok MACHINE OPERATOR documented in this encounter Plan of Treatment Upcoming Encounters Date Type Department Care Team (Late st Contact Info) Description 07/27/2024 9:40 AM CDT Office Visit [facility] Primary Care [address] [place] [address] Eldon Koehler MD [address] [place] [phone] documented as of this encounter Visit Diagnoses Not on filedocumented in this encounter Care Teams Mobile Web Application Developer Relationship Specialty Start Date End Date Eldon Koehler MD PCP - General 10/06/07 documented as of this encounter
--- OUTSIDE RECORDS SUMMARY | 2024-05-22 17:03 | XMS_ITS | Encounter Summary ---
Author Organization [facility] Address [address] [place] [address] Care Team Providers Care Home Health Speech Therapist Name Role Phone Eldon Koehler MD Primary Care Provider [phone] Reason for Visit * Reason Onset Date Comments Medication Refill 05/16/2015 Encounter Details Date Type Department Care Team (Late st Contact Info) Description 05/16/2015 Refill [facility] Internal Medicine [address] [address] Eldon Koehler MD [address] [place] [phone] Social History Tobacco Use Types Packs/Day [...] * Telephone Encounter - Glendy Ross - 05/16/2015 3:24 PM CST lvm rx ready in drawer OR SHAREPOINT ARCHITECT * Telephone Encounter - Glendy Ross - 05/16/2015 11:39 AM CST EMILY 01/31/15, NOV 06/01/15 OR SHAREPOINT ARCHITECT * Telephone Encounter - Glendy Ross - 05/16/2015 11:39 AM CSTFrom: Winifred Rodriguez To: Eldon Koehler MD Sent: 05/16/2015 10:37 AM SENIOR SHAREPOINT ARCHITECT Subject: Medication Renewal Request Original authorizing provider: MD Winifred Wilkes would like a refill of the following medications: HYDROcodone-acetaminophen (NORCO) 5-325 mg tablet [Eldon Koehler MD] Preferred pharmacy: Other - Need to forklift picker Comment: I am down to 4. If you could please write it and give it to my , Moreno Rodriguez tomorrow (05/17/15). I would greatly appreciate it as I am still not released to drive. Thanks! OR SHAREPOINT ARCHITECT documented in this encounter Plan of Treatment Upcoming Encounters Date Type Department Care Team (Late st Contact Info) Description 07/27/2024 9:40 AM CDT Office Visit [facility] Primary Care [address] [place] [address] Eldon Koehler MD [address] [place] [phone] documented as of this encounter Visit Diagnoses Not on filedocumented in this encounter Care Teams Home Health Speech Therapist Relationship Specialty Start Date End Date Eldon Koehler MD PCP - General 10/06/07 documented as of this encounter
--- OUTSIDE RECORDS SUMMARY | 2024-05-22 17:03 | XMS_ITS | Encounter Summary ---
Author Organization [facility] Address [address] [place] [address] Care Team Providers Care Carpenter'S Helper Name Role Phone Eldon Koehler MD Primary Care Provider [phone] Reason for Visit * Reason Onset Date Comments Procedure 02/24/2015 Colonoscopy Encounter Details Date Type Department Care Team (Late st Contact Info) Description 02/24/2015 Telephone [facility] Gastroenterology [facility] [address] [address] Provider, Abstract NO ADDRESS ON FILE Procedure (Colonoscopy) Social History Tobacco Use Types Packs/Day Years [...] encounter Miscellaneous Notes * Telephone Encounter - Jose Ghada - 02/24/2015 12:16 PM CDT Winifred Rodriguez is a 64 y.o. female 1950 Procedure: colonoscopy Diagnosis: Screening,fam hx colon ca-mom Provider: DEXTER Date and Time: 03/15/2015 10:45 am Location: [facility] Prep Given: Miralax Pre-cert Required? no Patient Transport: family (Friend/Family Member/Transport Service/Undecided) Anesthesia Consult Requested? no PCP: Eldon Koehler MD (General) Referring Provider: (If different than PCP) Do any of the following factors below apply to this patient? ELABORATE POSITIVE ANSWERS WITH DETAIL (who, what, when, where) Has patient previously been seen by a [facility] drum drier operator in an inpatient or outpatientsetting? (If yes please note MD) no Previous Endoscopy (Colon, EGD, ERCP EUS): (IF YES TO COLON PLEASE USE .OP30 SMARTPHRASE) yes - PROCEDURE: Colonoscopy Date: (Mo-Day-Yr) 12-28-09 Location: [place], [place] Physician: - Recommended to follow up in: 5-10 years Were Polyps Removed? (If yes please document polyp pathology) no History of issues following above procedures bleeding etc? no History of esophagectomy, gastrectomy, or bariatric surgery? no History of head/neck cancer, surgery or radiation? no History of gastric outlet obstruction? no Do you have sleep apnea? Yes Diagnosed approximately 2011 and does use CPAP Do you have COPD? no Are you on Oxygen at home? no Personal or family history of difficulty with sedation or anesthesia? Yes Nausea in the past Do you have a pacemaker, Defibrillator, Stent, Bypass or heart valve replacement? (AICD) no Have you been diagnosed with CHF (Congestive Heart Failure), CAD Coronary Artery Disease or Unstable Angina? no History of Heart Attack? no Any heart condition or history of heart surgeries not previously listed? no History of a stroke or seizure disorder? no Current history of neurological conditions? yes, fibromyalgia History of Kidney Dialysis or renal failure no History of Cirrhosis or Esophageal Varices? no History of MRSA or VRE? no Sickle Cell Disease (not just trait)? no Is patient ? no Is patient able to perform routine daily activities without assistance? yes Is patient mentally competent to provide informed consent? yes (If no, document who will be able toconsent for patient and their title I.E. POA) Is patient taking a blood thinner? (If yes, elaborate why patient is on this medication) no (Follow medication protocol) Patients BMI (36 and above need review, NO patients with BMI >50 or <16 Height: 5'6 Weight: 304 BMI: 49.1 History Substance Use Topics ??? Smoking status: Never Smoker ??? Smokeless tobacco: Never Used ??? Alcohol Use: No Allergies Allergen Reactions ??? Clindamycin Rash and Itching ??? Codeine Nausea and Vomiting Held Medications: None Current Outpatient Prescriptions Medication Sig Dispense Refill ??? celecoxib (CELEBREX) 200 mg capsule Take 1 Capsule (200 mg) by mouth 2 times daily. 180 Capsule3 ??? HYDROcodone-acetaminophen (NORCO) 5-325 mg tablet Take 1 Tablet by mouth every 4 hours as needed for Pain, Moderate. Max Daily Amount: 6 Tablet 90 Tablet 0 ??? omeprazole (PRILOSEC) 20 mg Capsule, Delayed Release(E.C.) Take 1 Capsule (20 mg) by mouth daily. 90 Capsule 3 ??? atorvastatin (LIPITOR) 20 mg tablet Take 1 Tablet (20 mg) by mouth Daily LATE. 90 Tablet 3 ??? pregabalin (LYRICA) 50 mg Capsule Take 1 Capsule (50 mg) by mouth 2 times daily. 180 Capsule 3 ??? rOPINIRole (REQUIP) 2 mg Tablet Take 1 Tab (2 mg) by mouth daily at bedtime. 90 Tab 3 ??? HYDROcodone-acetaminophen (NORCO) 5-325 mg tablet Take 1 Tab by mouth every 4 hours as needed for Pain, Moderate. 90 Tab 0 ??? methylPREDNISolone (MEDROL DOSPACK) 4 mg Tablets, Dose Pack As directed. 1 Package 0 ??? DULoxetine (CYMBALTA) 60 mg Capsule, Delayed Release(E.C.) Take 1 Cap (60 mg) by mouth daily. 90 Cap 3 ??? montelukast (SINGULAIR) 10 mg tablet Take 1 Tab by mouth daily. 90 Tab 3 ??? levothyroxine (SYNTHROID) 150 mcg Oral tablet Take 1 Tab by mouth daily ux lead. 90 Tab 3 ??? albuterol 90 mcg/Actuation HFA inhaler Take 2 Puffs by inhalation 4 times daily as needed for Shortness of Breath. 8.5 Gram 5 ??? cyanocobalamin (VITAMIN B-12) 1,000 mcg Oral Tab Take 1,000 mcg by mouth daily. ??? Cholecalciferol, Vitamin D3, (VITAMIN D) 1,000 unit Oral Tab Take by mouth daily. No current facility-administered medications for this visit. documented in this encounter Plan of Treatment Upcoming Encounters Date Type Department Care Team (Late st Contact Info) Description 07/27/2024 9:40 AM CDT Office Visit [facility] Care [address] [place] [address] Eldon Koehler MD [address] [place] [address] [address] [place] [address] documented as of this encounter Visit Diagnoses Not on filedocumented in this encounter Care Teams Carpenter'S Helper Relationship Specialty Start Date End Date Eldon Koehler MD PCP - General 10/06/07 documented as of this encounter
--- OUTSIDE RECORDS SUMMARY | 2024-05-22 17:03 | XMS_ITS | Encounter Summary ---
Author Organization [facility] Address [address] [place] [address] Care Team Providers Care Pricing Manager Name Role Phone Eldon Koehler MD Primary Care Provider [phone] Reason for Visit * Reason Comments Hypothyroid 3 mos w/labs Hyperlipidemia Encounter Details Date Type Department Care Team (Late st Contact Info) Description 01/31/2015 12:15 PM CDT Office Visit [facility] Internal Medicine [address] [address] Eldon Koehler MD [address] [place] [address] Impaired fasting glucose (Primary Dx); HYPOTHYROIDISM NOS; DEPRESSIVE DISORDER NEC; HYPERLIPIDEMIA NEC/NOS Social History Tobacco Use Types Packs/Day Years [...] Reading Time Taken Comments Blood Pressure 130/80 01/31/2015 12:12 PM CDT Pulse - - Temperature - - Respiratory Rate - - Oxygen Saturation - - Inhaled Oxygen Concentration - - Weight 140.6 kg (310 lb) 01/31/2015 12:12 PM CDT Height 167.6 cm (5' 6 ) 01/31/2015 12:12 PM CDT Body Mass Index 50.04 01/31/2015 12:12 PM CDT documented in this encounter Progress Notes * Eldon Koehler MD - 01/31/2015 12:42 PM CDT Winifred Rodriguez, a 64 y.o. female. For tkr x 2 Was delayed due to dental issues Wt same Inc gluc Chol ok No cp No dyspnea Can climb 2 flights stairs Back issues ongoing rls same Stress same depn ok, Recent lab reviewed Med reviwed Patient Active Problem List Diagnosis Code ??? HYPERLIPIDEMIA NEC/NOS 272.4 ??? DEPRESSIVE DISORDER NEC 311 ??? OSTEOARTHROS NOS-UNSPEC 715.90 ??? HYPOTHYROIDISM NOS 244.9 ??? Headache 784.0 ??? Unspecified Backache 724.5 ??? Unspecified Asthma 493.90 ??? Unspecified Sleep Apnea 780.57 ??? Impaired Fasting Glucose 790.21 ??? Restless Leg Syndrome 333.94 ??? GERD (gastroesophageal reflux disease) 530.81 ??? Fibromyalgia 729.1 ??? 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 Marital Status: Spouse [...] Exam for Routine Visits: \Blood pressure 130/80, height 5' 6 (1.676 m), weight 310 lb (140.615 kg). General appearanceobese nadHead: Normocephalic, without obvious [...] normal. Lymphatics: No focal or generalized lymphadenopathy. neck Mood stable Encounter Diagnoses Name Primary? Impaired fasting glucose Yes ??? HYPOTHYROIDISM NOS ??? DEPRESSIVE DISORDER NEC ??? HYPERLIPIDEMIA NEC/NOS The nature of cardiac risk has been [...] Med reviewed bmi reviewed, wt loss advised Gluc issues reviewed, diet compliance reviewed again, discussed metformin pt wants to wait Plan colonoscopy when pt able Advise flu vac lilibeth PLAN: Orders Placed This Encounter ??? CBC WITH DIFFERENTIAL ??? COMPREHENSIVE METABOLIC PANEL ??? HEMOGLOBIN A1C ??? LIPID PANEL ??? TSH documented in this encounter Plan of Treatment Upcoming Encounters Date Type Department Care Team (Late st Contact Info) Description 07/27/2024 9:40 AM CDT Office Visit [facility] Primary Care [address] [place] [address] Eldon Koehler MD [address] [place] [phone] Scheduled Orders Name Type Priority Associated Diagnoses Orde r Schedule CBC WITH DIFFERENTIAL Lab Routine DEPRESSIVE DISORDER NEC 1 Occurrences starting 01/31/2015 until 01/31/2016 COMPREHENSIVE METABOLIC PANEL Lab Routine HYPERLIPIDEMIA NEC/NOS 1 Occurrences starting 01/31/2015 until 01/31/2016 HEMOGLOBIN A1C Lab Routine Impaired fasting glucose 1 Occurrences starting 01/31/2015 until 01/31/2016 LIPID PANEL Lab Routine HYPERLIPIDEMIA NEC/NOS 1 Occurrences starting 01/31/2015 until 01/31/2016 TSH Lab Routine HYPOTHYROIDISM NOS 1 Occurrences starting 01/31/2015 until 01/31/2016 documented as of this encounter Visit Diagnoses Diagnosis Impaired fasting glucose- Primary HYPOTHYROIDISM NOS Unspecified hypothyroidism DEPRESSIVE DISORDER NEC Depressive disorder, not elsewhere classified HYPERLIPIDEMIA NEC/NOS Other and unspecified hyperlipidemia documented in this encounter Care Teams Pricing Manager Relationship Specialty Start Date End Date Eldon Koehler MD PCP - General 10/06/07 documented as of this encounter
--- OUTSIDE RECORDS SUMMARY | 2024-05-22 17:03 | XMS_ITS | Encounter Summary ---
Author Organization [facility] Address [address] [place] [address] Care Team Providers Care Farm Tractor Operator Name Role Phone Eldon Koehler MD Primary Care Provider Encounter Details Date Type Department Care Team (Late st Contact Info) Description 02/07/2015 Orders Only [facility] Internal Medicine [address] [address] Eldon Koehler MD [address] [place] [address] [address] [place] [address] Gastroesophageal reflux disease without esophagitis (Primary Dx) Social History Tobacco Use Types [...] Visit [facility] Primary Care [address] [place] [address] Eldon Koehler MD [address] [place] [address] [address] [place] [address] documented as of this encounter Visit Diagnoses Diagnosis Gastroesophageal reflux disease without esophagitis- Primary Esophageal reflux documented in this encounter Care Teams Farm Tractor Operator Relationship Specialty Start Date End Date Eldon Koehler MD PCP - General 10/06/07 documented as of this encounter
--- OUTSIDE RECORDS SUMMARY | 2024-05-22 17:03 | XMS_ITS | Encounter Summary ---
Author Organization [facility] Address [address] [place] [address] Care Team Providers Care Cue Selector Name Role Phone Eldon Koehler MD Primary Care Provider [phone] Reason for Visit * Reason Comments Cholesterol Problem Encounter Details Date Type Department Care Team (Latest Contact Info) Description 12/16/2012 1:00 PM CDT Office Visit [facility] Internal Medicine [address] [id number] Eldon Koehler MD [address] [place] [id number] HYPOTHYROIDISM NOS (Primary Dx); HYPERLIPIDEMIA NEC/NOS; Impaired fasting glucose; Fibromyalgia; Restless leg syndrome Social History Tobacco Use [...] Reading Time Taken Comments Blood Pressure 120/80 12/16/2012 12:51 PM CDT Pulse - - Temperature - - Respiratory Rate - - Oxygen Saturation - - Inhaled Oxygen Concentration - - Weight 136.1 kg (300 lb) 12/16/2012 12:51 PM CDT Height 167.6 cm (5' 6 ) 12/16/2012 12:51 PM CDT Body Mass Index 48.42 12/16/2012 12:51 PM CDT documented in this encounter Progress Notes * Eldon Koehler MD - 12/16/2012 2:31 PM CDT HISTORY OF PRESENT ILLNESS Winifred Rodriguez, a 62 y.o. female. HPI vickie thyroid lab pend Ache worse Anxiety wrose Insomnia , rls worse not slept in 5 d Stress with daughter at home Patient Active [...] 120/80, height 5' 6 (1.676 m), weight 300 lb (136.079 kg). General appearance: healthy appearing, active, alert, [...] and sensory grosslynormal Encounter Diagnoses Name Primary? HYPOTHYROIDISM NOS Yes ??? HYPERLIPIDEMIA NEC/NOS ??? Impaired fasting glucose ??? Fibromyalgia ??? Restless leg syndrome The nature of [...] diet has been given to the patient. [facility] for anxiety klonopin only if needed . PLAN: Orders Placed This Encounter ??? TSH ??? CBC WITH DIFFERENTIAL ??? COMPREHENSIVE METABOLIC PANEL ??? LIPID PANEL ??? TSH ??? VITAMIN B12 LEVEL ??? VITAMIN D 25 HYDROXY ??? clonazePAM (KLONOPIN) 0.5 mg Oral Tab ??? DULoxetine (CYMBALTA) 60 mg Oral CpDR ??? DULoxetine (CYMBALTA) 60 mg Oral CpDR documented in this encounter Plan of Treatment Upcoming Encounters Date Type Department Care Team (Late st Contact Info) Description 07/27/2024 9:40 AM CDT Office Visit [facility] Primary Care [facility] [address] [place] [address] [address] [place] [address] Eldon Koehler MD [address] [facility] [address] [place] [address] documented as of this encounter Results * VITAMIN D 25 HYDROXY (07/09/2013 8:34 AM INDUSTRIAL RELATIONS DIRECTOR) VITAMIN D, 25 OH, TOTAL 40.5 30.0 - 100.0 EXTERNAL LAB VITAMIN D, 25 OH, D2 EXTERNAL LAB VITAMIN D, 25 OH, D3 EXTERNAL LAB Blood specimen (specimen) 07/09/2013 8:34 AM INDUSTRIAL RELATIONS DIRECTOR Eldon Koehler MD CHEMISTRY ORDERABLES Performing Organization Address [facility] de Phone Number EXTERNAL LAB * (ABNORMAL) VITAMIN B12 LEVEL (07/09/2013 8:34 AM INDUSTRIAL RELATIONS DIRECTOR) VITAMIN B12 1,216(A) 211 - 946 pg/mL EXTERNAL LAB Blood specimen (specimen) 07/09/2013 8:34 AM INDUSTRIAL RELATIONS DIRECTOR Eldon Koehler MD CHEMISTRY ORDERABLES Performing Organization Address City/[facility]/ZIP Co de Phone Number EXTERNAL LAB * (ABNORMAL) LIPID PANEL (07/09/2013 8:34 AM INDUSTRIAL RELATIONS DIRECTOR) ABSTRACTED CHOLESTEROL EXTERNAL LAB ABSTRACTED TRIGLYCERIDE EXTERNAL LAB ABSTRACTED HDL EXTERNAL LAB ABSTRACTED LDL CALCULATED EXTERNAL LAB CHOLESTEROL 196 100 - 199 mg/dL EXTERNAL LAB CHOLESTEROL EXTERNAL LAB TRIGLYCERIDE 117 0 - 149 mg/dL EXTERNAL LAB TRIGLYCERIDE EXTERNAL LAB HDL 53 >39 mg/dL EXTERNAL LAB HDL EXTERNAL LAB LDL CALCULATED 120(A) 0 - 99 mg/dL EXTERNAL LAB LDL CALCULATED EXTERNAL LAB CALCULATED LDL CHOLESTEROL mg/dL EXTERNAL LAB CALCULATED TOTAL CHOLESTEROL TO HDL RATIO EXTERNAL LAB CHOL/HDL RATIO EXTERNAL LAB VLDL-3 (REMNANT LIPO) mg/dL EXTERNAL LAB LIPID PANEL COMMENT EXTERNAL LAB RISK FACTOR EXTERNAL LAB RESULT COMMENT, CHEMISTRY EXTERNAL LAB Blood specimen (specimen) 07/09/2013 8:34 AM INDUSTRIAL RELATIONS DIRECTOR Eldon Koehler MD CHEMISTRY ORDERABLES EXTERNAL LAB * (ABNORMAL) COMPREHENSIVE METABOLIC PANEL (07/09/2013 8:34 AM INDUSTRIAL RELATIONS DIRECTOR) SODIUM 140 134 - 144 mmol/L EXTERNAL LAB SODIUM EXTERNAL LAB POTASSIUM 4.7 3.5 - 5.2 mmol/L EXTERNAL LAB POTASSIUM EXTERNAL LAB CHLORIDE 96 - 108 mmol/L EXTERNAL LAB CHLORIDE EXTERNAL LAB CO2 22 - 30 mmol/L EXTERNAL LAB CO2 EXTERNAL LAB CALCIUM 9.4 8.6 - 10.2 mg/dL EXTERNAL LAB CALCIUM EXTERNAL LAB BUN 6 - 20 mg/dL EXTERNAL LAB BUN EXTERNAL LAB CREATININE 0.76 0.57 - 1.00 mg/dL EXTERNAL LAB CREATININE EXTERNAL LAB GLUCOSE 114(A) 65 - 99 mg/dL EXTERNAL LAB GLUCOSE EXTERNAL LAB TOTAL PROTEIN 6.3 - 8.6 g/dL EXTERNAL LAB TOTAL PROTEIN EXTERNAL LAB ALBUMIN 3.4 - 4.8 g/dL EXTERNAL LAB ALBUMIN EXTERNAL LAB BILIRUBIN TOTAL mg/dL EXTERNAL LAB BILIRUBIN TOTAL EXTERNAL LAB ALKALINE PHOSPHATASE 35 - 104 U/L EXTERNAL LAB ALKALINE PHOSPHATASE EXTERNAL LAB AST 23 0 - 40 U/L EXTERNAL LAB AST EXTERNAL LAB ALT 26 0 - 32 U/L EXTERNAL LAB ALT EXTERNAL LAB GFR, 60 mL/min/1.7 3 sq meter EXTERNAL LAB GFR, EXTERNAL LAB GFR 86 60 mL/min/1.7 3 sq meter EXTERNAL LAB GFR EXTERNAL LAB ANION GAP EXTERNAL LAB OSMOLALITY, CALCULATED EXTERNAL LAB BUN/CREAT RATIO EXTERNAL LAB ALBUMIN/GLOBULIN RATIO EXTERNAL LAB GLOBULIN (CALC) EXTERNAL LAB GLOBULIN EXTERNAL LAB RESULT COMMENT, CHEMISTRY EXTERNAL LAB Blood specimen (specimen) 07/09/2013 8:34 AM INDUSTRIAL RELATIONS DIRECTOR Eldon Koehler MD CHEMISTRY ORDERABLES EXTERNAL LAB * (ABNORMAL) CBC WITH DIFFERENTIAL (07/09/2013 8:34 AM INDUSTRIAL RELATIONS DIRECTOR) WBC 8.2 3.4 - 10.8 K/uL EXTERNAL LAB WBC EXTERNAL LAB MANUAL WBC K/uL EXTERNAL LAB WBC, CORRECTED K/uL EXTERNAL LAB NRBC /100 WBC EXTERNAL LAB NRBCS 0 % EXTERNAL LAB NRBCS EXTERNAL LAB RBC 4.74 3.77 - 5.28 M/uL EXTERNAL LAB RBC EXTERNAL LAB HEMOGLOBIN 13.0 11.1 - 15.9 g/dL EXTERNAL LAB HEMOGLOBIN EXTERNAL LAB HEMATOCRIT 42.1 34.0 - 46.6 % EXTERNAL LAB HEMATOCRIT EXTERNAL LAB MCV 82.2 - 96.4 fL EXTERNAL LAB MCV EXTERNAL LAB MCH 27.2 - 32.6 pg EXTERNAL LAB MCH EXTERNAL LAB MCHC 30.9(A) 31.5 - 35.7 g/dL EXTERNAL LAB MCHC EXTERNAL LAB PLATELETS 296 155 - 379 K/uL EXTERNAL LAB PLATELETS EXTERNAL LAB MPV 9.3 - 12.4 fL EXTERNAL LAB MPV EXTERNAL LAB PLATELET, MANUAL EXTERNAL LAB PLT COMMENT EXTERNAL LAB RDW 14.7 12.3 - 15.4 % EXTERNAL LAB RDW EXTERNAL LAB RDW-STDEV 37.0 - 54.0 fL EXTERNAL LAB RDW-STDEV EXTERNAL LAB RDW CV EXTERNAL LAB RESULT COMMENT HEMATOLOGY EXTERNAL LAB NEUTROPHILS % EXTERNAL LAB NEUTROPHILS EXTERNAL LAB LYMPHOCYTES % EXTERNAL LAB LYMPHOCYTES EXTERNAL LAB MIXED CELLS, COUNT RELATIVE EXTERNAL LAB MONOCYTES % EXTERNAL LAB MONOCYTES EXTERNAL LAB EOSINOPHILS % EXTERNAL LAB EOSINOPHILS EXTERNAL LAB BASOPHILS % EXTERNAL LAB BASOPHILS EXTERNAL LAB MANUAL DIFFERENTIAL EXTERNAL LAB ADJUSTED WBC K/uL EXTERNAL LAB ADJUSTED WBC K/uL EXTERNAL LAB NRBC EXTERNAL LAB NRBC 0 /100 WBC EXTERNAL LAB NEUTROPHIL EXTERNAL LAB NEUTROPHILS, SEG % EXTERNAL LAB SEGMENTED NEUTROPHILS % EXTERNAL LAB BANDS % EXTERNAL LAB BANDS RELATIVE % EXTERNAL LAB IMMATURE GRANULOCYTES % EXTERNAL LAB LYMPHOCYTES EXTERNAL LAB LYMPHOCYTES RELATIVE % EXTERNAL LA B REACTIVE LYMPHOCYTES EXTERNAL LA B ATYPICAL LYMPHOCYTE % EXTERNAL LAB ATYPICAL LYMPHOCYTES RELATIVE 0 % EXTERNAL LAB MONOCYTE EXTERNAL LAB MONOCYTES RELATIVE % EXTERNAL LAB EOSINOPHILS EXTERNAL LAB EOSINOPHILS RELATIVE % EXTERNAL LA B BASOPHILS EXTERNAL LAB BASOPHILS RELATIVE % EXTERNAL LAB METAMYELOCYTE % EXTERNAL LAB METAMYELOCYTES RELATIVE 0 % EXTERNAL LAB MYELOCYTES % EXTERNAL LAB MYELOCYTES EXTERNAL LAB MYELOCYTES - REL (DIFF) 0 % EXTERNAL LAB PROMYELOCYTE % EXTERNAL LAB PROMYELOCYTES RELATIVE 0 % EXTERNAL LAB MYELOBLASTS /100 EXTERNAL LAB BLAST % EXTERNAL LAB BLAST EXTERNAL LAB BLASTS RELATIVE 0 % EXTERNAL LAB PROLYMPHOCYTE EXTERNAL LAB PLASMACYTE EXTERNAL LAB PROMONOCYTE EXTERNAL LAB ERYTHROBLASTS /100 EXTERNAL LAB OTHER CELL EXTERNAL LAB WBC ESTIMATE EXTERNAL LAB PLATELET EST. EXTERNAL LAB PLATELET EST. EXTERNAL LAB INSTRUMENT ABSOLUTE COUNTS EXTERNAL LAB NEUTROPHIL ABSOLUTE K/uL EXTERNAL LAB NEUTROPHIL ABSOLUTE EXTERNAL LAB NEUTROPHILS ABSOLUTE K/uL EXTERNAL LA B BANDS ABSOLUTE /uL EXTERNAL LAB BANDS ABSOLUTE K/??L EXTERNAL LAB LYMPHOCYTE ABSOLUTE K/uL EXTERNAL LAB LYMPHOCYTE ABSOLUTE EXTERNAL LAB LYMPHOCYTES ABSOLUTE K/uL EXTERNAL LA B MIXED CELLS, COUNT ABSOLUTE EXTERNAL LAB MONOCYTE ABSOLUTE K/uL EXTERNAL LAB MONOCYTE ABSOLUTE EXTERNAL LAB MONOCYTES ABSOLUTE K/uL EXTERNAL LAB EOSINOPHIL ABSOLUTE K/uL EXTERNAL LAB EOSINOPHIL ABSOLUTE K/uL EXTERNAL LAB EOSINOPHILS ABSOLUTE K/uL EXTERNAL LA B BASOPHILS ABSOLUTE K/uL EXTERNAL LAB BASOPHILS ABSOLUTE EXTERNAL LAB BASOPHILS ABSOLUTE K/uL EXTERNAL LAB METAMYELOCYTE ABSOLUTE /uL EXTERNAL LAB METAMYELOCYTES ABSOLUTE 0.00 K/uL EXTERNAL LAB MYELOCYTE ABSOLUTE /uL EXTERNAL LAB MYELOCYTES - ABS (DIFF) 0.00 K/uL EXTERNAL LAB PROMYELOCYTE ABSOLUTE /uL EXTERNAL LAB PROMYELOCYTES ABSOLUTE 0.00 K/uL EXTERNAL LAB BLASTS ABSOLUTE /uL EXTERNAL LAB BLASTS ABSOLUTE 0.00 K/uL EXTERNAL LAB ATYPICAL LYMPHOCYTE ABSOLUTE K/uL EXTERNAL LAB ATYPICAL LYMPHS ABSOLUTE 0.00 K/uL EXTERNAL LAB IMMATURE GRANULOCYTES ABSOLUTE K/uL EXTERNAL LAB RBC MORPHOLOGY EXTERNAL LAB RBC MORPHOLOGY EXTERNAL LAB WBC MORPHOLOGY EXTERNAL LAB PLATELET MORPHOLOGY EXTERNAL LAB ANISOCYTOSIS /hpf EXTERNAL LAB ANISOCYTOSIS EXTERNAL LAB POIKILOCYTES /hpf EXTERNAL LAB POIKILOCYTES EXTERNAL LAB MICROCYTES /hpf EXTERNAL LAB MICROCYTES EXTERNAL LAB MACROCYTES /hpf EXTERNAL LAB MACROCYTES EXTERNAL LAB POLYCHROMASIA /hpf EXTERNAL LAB POLYCHROMASIA EXTERNAL LAB BASOPHILIC STIPPLING /hpf EXTERNAL LA B BASOPHILIC STIPPLING EXTERNAL LA B HYPOCHROMIA /hpf EXTERNAL LAB HYPOCHROMIA EXTERNAL LAB TARGET CELLS /hpf EXTERNAL LAB TARGET CELLS EXTERNAL LAB OVALOCYTES /hpf EXTERNAL LAB OVALOCYTES EXTERNAL LAB SCHISTOCYTES /hpf EXTERNAL LAB SCHISTOCYTES EXTERNAL LAB STOMATOCYTES /hpf EXTERNAL LAB SPHEROCYTES /hpf EXTERNAL LAB SPHEROCYTES EXTERNAL LAB SIDEROCYTES /hpf EXTERNAL LAB SICKLE CELLS /hpf EXTERNAL LAB SICKLE CELLS EXTERNAL LAB ACANTHOCYTES /hpf EXTERNAL LAB ACANTHOCYTES EXTERNAL LAB KEEGAN CELLS /hpf EXTERNAL LAB KEEGAN CELLS EXTERNAL LAB TEAR DROP CELLS /hpf EXTERNAL LAB TEAR DROP CELLS EXTERNAL LAB CRENATED RBCS EXTERNAL LAB CRENATED RBCS EXTERNAL LAB ROULEAUX /hpf EXTERNAL LAB ROULEAUX EXTERNAL LAB MICROSPHEROCYTES EXTERNAL LAB KRIS BODIES EXTERNAL LAB PAPPENHEIMER BODIES EXTERNAL LAB PAPPENHEIMER BODIES EXTERNAL LAB PATIÑO-JOLLY BODIES /hpf EXTERNAL LAB PATIÑO-JOLLY BODIES EXTERNAL LAB TOXIC GRANULATION EXTERNAL LAB TOXIC GRANULATION EXTERNAL LAB DOHLE BODIES /hpf EXTERNAL LAB DOHLE BODIES EXTERNAL LAB HYPERSEGMENTED NEUTROPHILS /hpf EXTERNAL LAB HYPERSEGMENTED NEUTROPHILS EXTERNAL LAB VACUOLATED NEUTROPHILS /hpf EXTERNAL LAB VACUOLATED NEUTROPHILS EXTERNAL LAB AGRANULAR NEUTROPHILS EXTERNAL LAB AGRANULAR NEUTROPHILS EXTERNAL LAB SMUDGE CELLS /100 EXTERNAL LAB SMUDGE CELLS EXTERNAL LAB MEEK RODS /hpf EXTERNAL LAB CLUMPED PLATELETS EXTERNAL LAB CLUMPED PLATELETS EXTERNAL LAB GIANT PLATELETS EXTERNAL LAB GIANT PLATELETS EXTERNAL LAB CIRCULATING MEGAKARYOCYTE EXTERNAL LAB OBSERVED 1 DIFF EXTERNAL LAB OBSERVED 1 EXTERNAL LAB OBSERVED 2 DIFF EXTERNAL LAB OBSERVED 2 DIFF EXTERNAL LAB COMMENT, DIFFERENTIAL EXTERNAL LAB COMMENT 2, DIFFERENTIAL EXTERNAL LAB REVIEWED ON SMEAR EXTERNAL LAB TOTAL CELLS COUNTED IN DIFF EXTERNAL LAB TOTAL CELLS COUNTED IN DIFF EXTERNAL LAB IMMATURE GRANULOCYTES % EXTERNAL LAB Blood specimen (specimen) 07/09/2013 8:34 AM INDUSTRIAL RELATIONS DIRECTOR Eldon Koehler MD HEMATOLOGY ORDERABLE S EXTERNAL LAB documented in this encounter Visit Diagnoses Diagnosis HYPOTHYROIDISM NOS- Primary Unspecified hypothyroidism HYPERLIPIDEMIA NEC/NOS Other and unspecified hyperlipidemia Impaired fasting glucose Fibromyalgia Mylagia and myositis, unspecified Restless leg syndrome Restless legs syndrome (RLS) documented in this encounter Care Teams Cue Selector Relationship Specialty Start Date End Date Eldon Koehler MD PCP - General 10/06/07 documented as of this encounter
--- OUTSIDE RECORDS SUMMARY | 2024-05-22 17:03 | XMS_ITS | Encounter Summary ---
Author Organization [facility] Address [address] [place] [address] Care Team Providers Care Council On Aging Director Name Role Phone Eldon Koehler MD Primary Care Provider [phone] Reason for Visit * Reason Comments Fibromyalgia Numbness lt leg tingling by t he knee on both side Encounter Details Date Type Department Care Team (Late st Contact Info) Description 05/23/2015 11:15 AM SLOT TAG INSERTER Office Visit [facility] Internal Medicine [address] [address] Eldon Koehler MD [address] [place] [address] Impaired fasting glucose (Primary Dx); Other hyperlipidemia; Other specified hypothyroidism; Restless leg syndrome; Fibromyalgia; Vitamin B12 deficiency (non anemic); Vitamin D deficiency; Meralgia paresthetica, unspecified laterality Social History Tobacco Use Types [...] Reading Time Taken Comments Blood Pressure 130/80 05/23/2015 11:23 AM SLOT TAG INSERTER Pulse - - Temperature - - Respiratory Rate - - Oxygen Saturation - - Inhaled Oxygen Concentration - - Weight 136.1 kg (300 lb) 05/23/2015 11:23 AM SLOT TAG INSERTER Height 167.6 cm (5' 6 ) 05/23/2015 11:23 AM SLOT TAG INSERTER Body Mass Index 48.42 05/23/2015 11:23 AM SLOT TAG INSERTER documented in this encounter Progress Notes * Eldon Koehler MD - 05/23/2015 1:02 PM CST Winifred Rodriguez, a 64 y.o. female. Pt feels flare fibromyalgia since surgery Still swelling knee Paresthesias lat upper thighs Chronic pain issues Med reviwed Lab pend Back issues ongoing rls same Patient Active Problem List Diagnosis Code ??? [...] blood in stool. Genitourinary: Negative for dysuria. exa,m: \Blood pressure 130/80, height 5' 6 (1.676 m), weight 300 [...] Lymphatics: No focal or generalized lymphadenopathy. neck Skin sens thighs Mood stable Encounter Diagnoses Name Primary? Impaired fasting glucose Yes ??? Other hyperlipidemia ??? Other specified hypothyroidism ??? Restless leg syndrome ??? Fibromyalgia ??? Vitamin B12 deficiency (non anemic) ??? Vitamin D deficiency ??? Meralgia paresthetica, unspecified laterality The nature of cardiac risk has been [...] patient. Med reviewed bmi reviewed, wt loss advised--pt tryng Gluc issues reviewed, diet compliance reviewed again, to see dietian PLAN: Orders Placed This Encounter ??? CBC WITH DIFFERENTIAL ??? CK ??? COMPREHENSIVE METABOLIC PANEL ??? LIPID PANEL ??? TSH ??? HEMOGLOBIN A1C ??? VITAMIN B12 LEVEL ??? VITAMIN D 25 HYDROXY ??? capsaicin (ZOSTRIX HP) 0.075 % Cream TAG INSERTER documented in this encounter Plan of Treatment Upcoming Encounters Date Type Department Care Team (Late st Contact Info) Description 07/27/2024 9:40 AM CDT Office Visit [facility] Primary Care [facility] [address] [facility] [address] [place] [address] Eldon Koehler MD [address] [facility] [address] [place] [address] documented as of this encounter Results * VITAMIN D 25 HYDROXY (05/23/2015 12:01 PM SLOT TAG INSERTER) VITAMIN D TOTAL (25OH) 40 ng/ml 05/23/2015 3:41 PM SLOT TAG INSERTER [facility] Comment: Therapy is based on measurement of Total 25-OHD, with levels <20 ng/mL indicative of Vitamin D deficiency in both adults and children. Levels between 20 - 30 ng/mL suggest insufficiency. Optimal levels are > or = 30 ng/mL. If ??adult levels of total 25-OHD exceeds 150 ng/ml, ??this is potentially toxic. Calcium testing is recommended to evaluate the possibility of hypercalcemia. ??For children, toxic vitamin D levels are more weight-dependent. Blood Venipuncture - L ab Collect / Unknown 05/23/2015 12:01 PM SLOT TAG INSERTER 05/23/2015 12:01 PM SLOT TAG INSERTER Eldon Koehler MD CHEMISTRY ORDERABLES [facility] CLIA# [id number] [address] [place] [address] * (ABNORMAL) VITAMIN B12 LEVEL (05/23/2015 12:01 PM SLOT TAG INSERTER) VITAMIN B12 >1,800(H) 211 - 946 pg/mL 05/23/2015 3:42 PM SLOT TAG INSERTER [facility] Comment: It has been reported that between 5 to 10% of patients with values between 200 and 400 pg/mL may experience neuropsychiatric and hematologic abnormalities due to occult B12 deficiency. ??Less than 1% of patients with values above 400 pg/mL will have symptoms. Blood Venipuncture - L ab Collect / Unknown 05/23/2015 12:01 PM SLOT TAG INSERTER 05/23/2015 12:01 PM SLOT TAG INSERTER Eldon Koehler MD CHEMISTRY ORDERABLES Performing Organization Address City/[facility] Co de Phone Number [facility] [employer] [facility]# [id number] [address] [place] [address] * HEMOGLOBIN A1C (05/23/2015 12:01 PM SLOT TAG INSERTER) HEMOGLOBIN A1C 6.0 4.1 - 6.1 % 05/23/2015 7:46 PM SLOT TAG INSERTER [facility] EST. AVG GLUCOSE, A1C 126 mg/dL 05/23/2015 7:46 PM SLOT TAG INSERTER [facility] Blood Venipuncture - L ab Collect / Unknown 05/23/2015 12:01 PM SLOT TAG INSERTER 05/23/2015 12:01 PM SLOT TAG INSERTER Narrative [facility] - 05/23/2015 7:46 PM SLOT TAG INSERTER Based on the ADAG study equation. Eldon Koehler MD CHEMISTRY ORDERABLES Performing Organization Address [facility] Co de Phone Number [facility] [employer] [facility]# [id number] [address] [place] [address] * TSH (05/23/2015 12:01 PM SLOT TAG INSERTER) TSH 1.66 0.27 - 4.20 uIU/mL 05/23/2015 2:36 PM SLOT TAG INSERTER [facility] Blood Venipuncture - L ab Collect / Unknown 05/23/2015 12:01 PM SLOT TAG INSERTER 05/23/2015 12:01 PM SLOT TAG INSERTER Eldon Koehler MD CHEMISTRY ORDERABLES [employer] SERVICES - [facility] CLIA# [id number] [address] [place] [place] [address] * (ABNORMAL) LIPID PANEL (05/23/2015 12:01 PM SLOT TAG INSERTER) CHOLESTEROL 185 <200 mg/dL 05/23/2015 2:32 PM [facility] [employer] [facility] TRIGLYCERIDE 190(H) <150 mg/dL 05/23/2015 2:32 PM [facility] HDL 47 40 - 59 mg/dL 05/23/2015 2:32 PM [facility] LDL CALCULATED 100(H) <100 mg/dL 05/23/2015 2:32 PM [facility] NON-HDL CHOLESTEROL 138(H) <130 mg/dL 05/23/2015 2:32 PM [facility] Blood Venipuncture - L ab Collect / Unknown 05/23/2015 12:01 PM SLOT TAG INSERTER 05/23/2015 12:01 PM SLOT TAG INSERTER Narrative [employer] [facility] - 05/23/2015 2:32 PM [facility] TOTAL CHOLESTEROL mg/dL ??Desirable ? <200 ??Borderline high ?200-239 ??High ?>=240 TRIGLYCERIDES mg/dL ??Normal ?<150 ??Borderline high ?150-199 ??High ? 200-499 ??Very high ? >=500 HDL CHOLESTEROL mg/dL ??Low ?<40 ??Normal ?40-59 ??Desirable ? >=60 LDL CHOLESTEROL mg/dL ??Optimal ? <100 ??Low risk ? 100-129 ??Borderline high ?130-159 ??High ? 160-189 ??Very high ? >=190 NON HDL CHOLESTEROL mg/dL ??Optimal ? <130 ??Near Optimal ? 130-159 ??Borderline High ?160-189 ??High ? 190-219 ??Very high ? >=220 Based on AHA/NCEP Guidelines Eldon Koehler MD CHEMISTRY ORDERABLES [facility] CLIA# [id number] [address] [place] [address] * (ABNORMAL) COMPREHENSIVE METABOLIC PANEL (05/23/2015 12:01 PM SLOT TAG INSERTER) SODIUM 140 136 - 145 mmol/L 05/23/2015 2:32 PM SLOT TAG INSERTER [employer] [facility] - [facility] POTASSIUM 4.7 3.5 - 5.0 mmol/L 05/23/2015 2:32 PM SLOT TAG INSERTER [employer] [facility] - [facility] CHLORIDE 98 98 - 107 mmol/L 05/23/2015 2:32 PM SLOT TAG INSERTER [facility] LABORATORY SERVICES - . [facility] CO2 27 22 - 29 mmol/L 05/23/2015 2:32 PM SLOT TAG INSERTER [facility] - . [facility] CALCIUM 9.8 8.6 - 10.2 mg/dL 05/23/2015 2:32 PM SLOT TAG INSERTER [facility] - . [facility] BUN 14 8 - 23 mg/dL 05/23/2015 2:32 PM SLOT TAG INSERTER modulR LABORATORY SERVICES - . [facility] CREATININE 0.77 0.51 - 0.95 mg/dL 05/23/2015 2:32 PM SLOT TAG INSERTER modulR [facility] - [facility] GLUCOSE 105(H) 79 - 99 mg/dL 05/23/2015 2:32 PM [facility] TOTAL PROTEIN 8.1 6.7 - 8.6 g/dL 05/23/2015 2:32 PM [facility] ALBUMIN 4.0 3.5 - 5.2 g/dL 05/23/2015 2:32 PM [facility] - . [facility] BILIRUBIN TOTAL 0.5 0.2 - 1.1 mg/dL 05/23/2015 2:32 PM [facility] ALKALINE PHOSPHATASE 182(H) 35 - 104 U/L 05/23/2015 2:32 PM [facility] AST 17 <33 U/L 05/23/2015 2:32 PM [facility] - . [facility] ALT 17 <34 U/L 05/23/2015 2:32 PM [facility] GFR >60 >=60 mL/min/1.7 3 sq meter 05/23/2015 2:32 PM [facility] Comment: eGFR has not been validated [...] GFR, >60 >=60 mL/min/1.7 3 sq meter 05/23/2015 2:32 PM [facility] [employer] [facility] ANION GAP 15 8 - 16 mmol/L 05/23/2015 2:32 PM [facility] Blood Venipuncture - L ab Collect / Unknown 05/23/2015 12:01 PM SLOT TAG INSERTER 05/23/2015 12:01 PM SLOT TAG INSERTER Eldon Koehler MD CHEMISTRY ORDERABLES [facility] [facility] CLIA# [id number] [address] [place] [address] * CK (05/23/2015 12:01 PM SLOT TAG INSERTER) CK 49 20 - 180 U/L 05/23/2015 2:32 PM [facility] [employer] [facility] Blood Venipuncture - L ab Collect / Unknown 05/23/2015 12:01 PM SLOT TAG INSERTER 05/23/2015 12:01 PM SLOT TAG INSERTER Eldon Koehler MD CHEMISTRY ORDERABLES [employer] SERVICES [facility] CLIA# [id number] [address] [place] [address] * (ABNORMAL) CBC WITH DIFFERENTIAL (05/23/2015 12:01 PM SLOT TAG INSERTER) WBC 9.5 4.0 - 9.8 K/uL 05/23/2015 2:34 PM [facility] LAB[facility] SERVICES - [facility] RBC 4.41 3.90 - 4.90 M/uL 05/23/2015 2:34 PM [facility] LAB[facility]ORY SERVICES - [facility] HEMOGLOBIN 12.5 11.8 - 14.8 g/dL 05/23/2015 2:34 PM [facility] LAB[facility]ORY [facility] - [facility] HEMATOCRIT 40.3 35.5 - 44.0 % 05/23/2015 2:34 PM [facility] - [facility] MCV 91.4 82.0 - 99.0 fL 05/23/2015 2:34 PM [facility] - [facility] MCH 28.3 27.2 - 32.6 pg 05/23/2015 2:34 PM SLOT TAG INSERTER [employer] [facility] - [facility] MCHC 31.0 30.0 - 36.0 g/dL 05/23/2015 2:34 PM SLOT TAG INSERTER [employer] - [facility] RDW 15.2(H) 11.5 - 14.5 % 05/23/2015 2:34 PM [facility] LAB[facility]ORY [facility] - [facility] RDW-STDEV 50.9(H) 37.1 - 48.7 fL 05/23/2015 2:34 PM [employer] PLATELETS 414(H) 140 - 350 K/uL 05/23/2015 2:34 PM [facility] MPV 11.4 9.3 - 12.4 fL 05/23/2015 2:34 PM [facility] NEUTROPHILS 65 45 - 70 % 05/23/2015 2:34 PM [facility] LYMPHOCYTES 24 16 - 45 % 05/23/2015 2:34 PM [facility] MONOCYTES 7 3 - 13 % 05/23/2015 2:34 PM [facility] EOSINOPHILS 4 <7 % 05/23/2015 2:34 PM [facility] BASOPHILS 0 <3 % 05/23/2015 2:34 PM [facility] NEUTROPHIL ABSOLUTE 6.14 1.90 - 7.00 K/uL 05/23/2015 2:34 PM [facility] LYMPHOCYTE ABSOLUTE 2.26 0.70 - 4.50 K/uL 05/23/2015 2:34 PM [facility] MONOCYTE ABSOLUTE 0.66 0.10 - 1.30 K/uL 05/23/2015 2:34 PM [facility] EOSINOPHIL ABSOLUTE 0.39 <0.70 K/uL 05/23/2015 2:34 PM [facility] BASOPHILS ABSOLUTE 0.04 <0.30 K/uL 05/23/2015 2:34 PM [facility] Blood Venipuncture - L ab Collect / Unknown 05/23/2015 12:01 PM SLOT TAG INSERTER 05/23/2015 12:01 PM SLOT TAG INSERTER Eldon Koehler MD HEMATOLOGY ORDERABLE [facility] SERVICES - [facility]# [id number] [address] [address] documented in this encounter Visit Diagnoses Diagnosis Impaired fasting glucose- Primary Other hyperlipidemia Other specified hypothyroidism Restless leg syndrome Restless legs syndrome (RLS) Fibromyalgia Mylagia and myositis, unspecified Vitamin B12 deficiency (non anemic) Other B-complex deficiencies Vitamin D deficiency Unspecified vitamin D deficiency Meralgia paresthetica, unspecified laterality documented in this encounter Care Teams Council On Aging Director Relationship Specialty Start Date End Date Eldon Koehler MD PCP - General 10/06/07 documented as of this encounter
--- OUTSIDE RECORDS SUMMARY | 2024-05-22 17:03 | XMS_ITS | Encounter Summary ---
Author Organization [facility] Address [address] [place] [address] Care Team Providers Care Chipping Machine Operator Name Role Phone Eldon Koehler MD Primary Care Provider [phone] Reason for Visit * Reason Comments Upper Respiratory Symptoms coughing /bro nchitis stated by pt Wheezing Encounter Details Date Type Department Care Team (Latest Contact Info) Description 09/06/2014 10:15 AM CDT Procedure visit [facility] Internal Medicine [address] [address] Eldon Koehler MD [address] [place] [address] OM (otitis media), bilateral (Primary Dx); Acute bronchitis, unspecified organism; Subacute frontal sinusitis Social History Tobacco Use Types Packs/Day Years [...] Reading Time Taken Comments Blood Pressure 118/80 09/06/2014 10:28 AM CDT Pulse - - Temperature 36.8 ??C (98.2 ??F) 09/06/2014 10:28 AM C DT Respiratory Rate - - Oxygen Saturation - - Inhaled Oxygen Concentration - - Weight 138.3 kg (305 lb) 09/06/2014 10:28 AM CDT Height 167.6 cm (5' 6 ) 09/06/2014 10:28 AM CDT Body Mass Index 49.23 09/06/2014 10:28 AM CDT documented in this encounter Progress Notes * Eldon Koehler MD - 09/06/2014 12:59 PM CDT Flare coug kendrick sinus Wheeze 2 weeks Eyes swollen Allergy issues and viral exposure No fever The patient appears alert, well appearing, and in no distress.- bilateral TM fluid noted., op clearChest:course bs, symmetric air entry. Heart sounds are rrr no edema Abdomen soft, nontender, no masses or organomegaly. ASSESSMENT: Encounter Diagnoses Name Primary? OM (otitis media), bilateral Yes ??? Acute bronchitis, unspecified organism ??? Subacute frontal sinusitis Risk of side effects of antibiotics reviewed, call if diarrhea rash, facial swelling or other. pumicort 180 give anoro given Add otc tho Short fu PLAN: Orders Placed This Encounter ??? methylPREDNISolone (MEDROL DOSPACK) 4 mg Tablets, Dose Pack ??? amoxicillin-clavulanate (AUGMENTIN) 875-125 mg tablet documented in this encounter Plan of Treatment Upcoming Encounters Date Type Department Care Team (Late st Contact Info) Description 07/27/2024 9:40 AM CDT Office Visit [facility] Primary Care [address] [place] [address] Eldon Koehler MD [address] [place] [address] [address] [place] [address] documented as of this encounter Visit Diagnoses Diagnosis OM (otitis media), bilateral- Primary Acute bronchitis, unspecified organism Subacute frontal sinusitis Acute frontal sinusitis documented in this encounter Care Teams Chipping Machine Operator Relationship Specialty Start Date End Date Eldon Koehler MD PCP - General 10/06/07 documented as of this encounter
--- OUTSIDE RECORDS SUMMARY | 2024-05-22 17:03 | XMS_ITS | Encounter Summary ---
Author Organization [facility] Address [address] [place] [address] Care Team Providers Care Press Reader Name Role Phone Eldon Koehler MD Primary Care Provider [phone] Reason for Visit * Reason Onset Date Comments Other 05/31/2013 Encounter Details Date Type Department Care Team (Late Contact Info) Description 05/31/2013 Telephone [facility] Internal Medicine [address] [address] Eldon Koehler MD [address] [place] [address] [address] [place] [address] Other Social History Tobacco Use Types [...] Visit [facility] Primary Care [address] [place] [address] Eldon Koehler MD [address] [place] [address] [address] [place] [address] documented as of this encounter Visit Diagnoses Diagnosis DEPRESSIVE DISORDER NEC- Primary Depressive disorder, not elsewhere classified documented in this encounter Care Teams Press Reader Relationship Specialty Start Date End Date Eldon Koehler MD PCP - General 10/06/07 documented as of this encounter
--- OUTSIDE RECORDS SUMMARY | 2024-05-22 17:03 | XMS_ITS | Encounter Summary ---
Author Organization [facility] Address [address] [place] [address] Care Team Providers Care Profile Shaper Operator Name Role Phone Eldon Koehler MD Primary Care Provider [phone] Reason for Visit * Reason Comments Medication Refill Encounter Details Date Type Department Care Team (Late st Contact Info) Description 09/13/2013 Refill [facility] Internal Medicine [address] [address] Eldon Koehler MD [address] [place] [address] GERD (gastroesophageal reflux disease) (Primary Dx) Social History Tobacco Use Types [...] * Telephone Encounter - Glendy Ross - 09/15/2013 4:45 PM CDT NOV 09/30/2013, EMILY 09/09/2013 documented in this encounter Plan of Treatment Upcoming Encounters Date Type Department Care Team (Late st Contact Info) Description 07/27/2024 9:40 AM CDT Office Visit [facility] Primary Care [facility] [address] [place] [address] [address] [place] [address] Eldon Koehler MD [address] [place] [address] [address] [place] [address] documented as of this encounter Visit Diagnoses Diagnosis GERD (gastroesophageal reflux disease)- Primary Esophageal reflux documented in this encounter Care Teams Profile Shaper Operator Relationship Specialty Start Date End Date Eldon Koehler MD PCP - General 10/06/07 documented as of this encounter
--- OUTSIDE RECORDS SUMMARY | 2024-05-22 17:03 | XMS_ITS | Encounter Summary ---
Author Organization [facility] Address [address] [place] [address] Care Team Providers Care Applique Sewer Name Role Phone Eldon Koehler MD Primary Care Provider [phone] Reason for Visit * Reason Onset Date Comments Needs Orders Written 01/21/2014 Encounter Details Date Type Department Care Team (Late st Contact Info) Description 01/21/2014 Telephone [facility] Internal Medicine [address] [address] Eldon Koehler MD [address] [place] [address] Needs Orders Written Social History Tobacco [...] * Telephone Encounter - Martha Plata - 01/21/2014 3:28 PM CDT Tisha mailed lab orders to patient * Telephone Encounter - Martha Plata - 01/21/2014 2:36 PM CDT Patient has an appt scheduled 10-08-14. Do you want to order blood work for this visit? If yes, mail lab req to patient documented in this encounter Plan of Treatment Upcoming Encounters Date Type Department Care Team (Late st Contact Info) Description 07/27/2024 9:40 AM CDT Office Visit [facility] Primary Care [address] [place] [address] Eldon Koehler MD [address] [place] [address] [address] [place] [address] documented as of this encounter Visit Diagnoses Diagnosis HYPERLIPIDEMIA NEC/NOS- Primary Other and unspecified hyperlipidemia Abnormal glucose Other abnormal glucose Impaired fasting glucose Restless leg syndrome Restless legs syndrome (RLS) documented in this encounter Care Teams Applique Sewer Relationship Specialty Start Date End Date Eldon Koehler MD PCP - General 10/06/07 documented as of this encounter
--- OUTSIDE RECORDS SUMMARY | 2024-05-22 17:03 | XMS_ITS | Encounter Summary ---
Author Organization [facility] Address [address] [place] [address] Care Team Providers Care Ferryboat Deckhand Name Role Phone Eldon Koehler MD Primary Care Provider [phone] Reason for Visit * Reason Onset Date Comments Other 07/19/2013 Encounter Details Date Type Department Care Team (Late st Contact Info) Description 07/19/2013 Telephone [facility] Internal Medicine [address] [address] Eldon Koehler MD [address] [place] [address] Other Social History Tobacco Use Types [...] * Telephone Encounter - Mitra Ward - 07/19/2013 9:24 AM [facility] when ins is run through. * Telephone Encounter - Eldon Koehler MD - 07/19/2013 9:01 AM CDT Cancel flexeril to optum rx documented in this encounter Plan of Treatment Upcoming Encounters Date Type Department Care Team (Late st Contact Info) Description 07/27/2024 9:40 AM CDT Office Visit [facility] Care [address] [place] [address] Eldon Koehler MD [address] [place] [address] [address] [place] [address] documented as of this encounter Visit Diagnoses Not on filedocumented in this encounter Care Teams Ferryboat Deckhand Relationship Specialty Start Date End Date Eldon Koehler MD PCP - General 10/06/07 documented as of this encounter
--- OUTSIDE RECORDS SUMMARY | 2024-05-22 17:03 | XMS_ITS | Encounter Summary ---
Author Organization [facility] Address [address] [place] [address] Care Team Providers Care Track Mechanic Name Role Phone Eldon Koehler MD Primary Care Provider [phone] Encounter Details Date Type Department Care Team (Late st Contact Info) Description 04/26/2015 Abstract [facility] Internal Medicine [address] [address] Provider, Abstract NO ADDRESS ON [...] Visit [facility] Primary Care [address] [place] [address] Eldon Koehler MD [address] [place] [address] [address] [place] [address] documented as of this encounter Visit Diagnoses Not on filedocumented in this encounter Care Teams Track Mechanic Relationship Specialty Start Date End Date Eldon Koehler MD PCP - General 10/06/07 documented as of this encounter
--- OUTSIDE RECORDS SUMMARY | 2024-05-22 17:03 | XMS_ITS | Encounter Summary ---
Author Organization [facility] Address [address] [place] [address] Care Team Providers Care Battery Container Finishing Hand Name Role Phone Eldon Koehler MD Primary Care Provider [phone] Encounter Details Date Type Department Care Team (Late st Contact Info) Description 07/13/2013 Orders Only [facility] Internal Medicine [address] [address] Eldon Koehler MD [address] [place] [address] [address] [place] [address] HYPOTHYROIDISM NOS; Fibromyalgia; HYPERLIPIDEMIA NEC/NOS Social History Tobacco Use Types [...] [facility] Primary Care [address] [place] [address] Eldon Koehler MD [address] [place] [address] [address] [place] [address] documented as of this encounter Procedures Procedure Name Priority Date/Time Associated Diagnosis Comments CBC WITH DIFFERENTIAL Routine 07/09/2013 8:34 AM CAN REPAIRER Fibromyalgia VITAMIN D 25 HYDROXY Routine 07/09/2013 8:34 AM CAN REPAIRER Fibromyalgia TSH Routine 07/09/2013 8:34 AM CAN REPAIRER HYPOTHYROIDISM NOS VITAMIN B12 LEVEL Routine 07/09/2013 8:3 4 AM CAN REPAIRER Fibromyalgia LIPID PANEL Routine 07/09/2013 8:34 AM CAN REPAIRER HYPERLIPIDEMIA NEC/NOS COMPREHENSIVE METABOLIC PANEL Routine 07/09/2013 8:34 AM CAN REPAIRER HYPERLIPIDEMIA NEC/NOS documented in this encounter Results * VITAMIN D 25 HYDROXY (07/09/2013 8:34 AM CAN REPAIRER) VITAMIN D, 25 OH, TOTAL 40.5 30.0 - 100.0 EXTERNAL LAB VITAMIN D, 25 OH, D2 EXTERNAL LAB VITAMIN D, 25 OH, D3 EXTERNAL LAB Blood specimen (specimen) 07/09/2013 8:34 AM CAN REPAIRER Eldon Koehler MD CHEMISTRY ORDERABLES Performing Organization Address [facility] Co de Phone Number EXTERNAL LAB * (ABNORMAL) VITAMIN B12 LEVEL (07/09/2013 8:34 AM CAN REPAIRER) VITAMIN B12 1,216(A) 211 - 946 pg/mL EXTERNAL LAB Blood specimen (specimen) 07/09/2013 8:34 AM CAN REPAIRER Eldon Koehler MD CHEMISTRY ORDERABLES Performing Organization Address City/[facility]/ZIP Co de Phone Number EXTERNAL LAB * (ABNORMAL) LIPID PANEL (07/09/2013 8:34 AM CAN REPAIRER) ABSTRACTED CHOLESTEROL EXTERNAL LAB ABSTRACTED TRIGLYCERIDE EXTERNAL [...] LAB Blood specimen (specimen) 07/09/2013 8:34 AM CAN REPAIRER Eldon Koehler MD CHEMISTRY ORDERABLES EXTERNAL LAB * (ABNORMAL) COMPREHENSIVE METABOLIC PANEL (07/09/2013 8:34 AM CAN REPAIRER) SODIUM 140 134 - 144 mmol/L EXTERNAL [...] LAB Blood specimen (specimen) 07/09/2013 8:34 AM CAN REPAIRER Eldon Koehler MD CHEMISTRY ORDERABLES EXTERNAL LAB * (ABNORMAL) CBC WITH DIFFERENTIAL (07/09/2013 8:34 AM CAN REPAIRER) WBC 8.2 3.4 - 10.8 K/uL EXTERNAL [...] LAB Blood specimen (specimen) 07/09/2013 8:34 AM CAN REPAIRER Eldon Koehler MD HEMATOLOGY ORDERABLE S Performing Organization Address City/State/[facility] Co de Phone Number EXTERNAL LAB * TSH (07/09/2013 8:34 AM CAN REPAIRER) TSH 2.36 0.45 - 4.50 uIU/mL EXTERNAL LAB Comment:2.360 Blood specimen (specimen) 07/09/2013 8:34 AM CAN REPAIRER Eldon Koehler MD CHEMISTRY ORDERABLES EXTERNAL LAB documented in this encounter Visit Diagnoses Diagnosis HYPOTHYROIDISM NOS Unspecified hypothyroidism Fibromyalgia Mylagia and myositis, unspecified HYPERLIPIDEMIA NEC/NOS Other and unspecified hyperlipidemia documented in this encounter Care Teams Battery Container Finishing Hand Relationship Specialty Start Date End Date Eldon Koehler MD PCP - General 10/06/07 documented as of this encounter
--- OUTSIDE RECORDS SUMMARY | 2024-05-22 17:03 | XMS_ITS | Encounter Summary ---
Author Organization [facility] Address [address] [place] [address] Care Team Providers Care Nurse Practitioner Per Diem Name Role Phone Eldon Koehler MD Primary Care Provider Reason for Referral * Eval and Treat (Routine) - Closed Specialty Diagnoses / Procedures Referred By Carmen t Referred To Contact Gastroenterology Diagnoses Screening for colon cancer Procedures ENDOSCOPY, COLON, SCREENING Eldon Koehler MD [address] [place] [address] Osei Sutton MD [address] [place] [phone] Referral ID Status Reason Start Date Expiration Date V isits Requested Visits Authorized [id number] Closed CRS To Schedule (STL) 02/01/2015 02/01/2016 1 1 Reason for Visit * Reason Onset Date Comments Referral 02/01/2015 Encounter Details Date Type Department Care Team (Late st Contact Info) Description 02/01/2015 Telephone [facility] Internal Medicine [address] [address] Eldon Koehler MD [address] [facility] [address] [place] [address] Referral Social History Tobacco Use Types [...] [facility] Primary Care [address] [place] [address] Eldon Koehler MD [address] [place] [address] [address] [place] [address] Scheduled Referrals Name Type Priority Associated Diagnoses Order Schedule AMB REFERRAL TO GASTROENTEROLOGY Outpatient Referral Routine Screening for colon cancer Ordered: 02/01/2015 documented as of this encounter Visit Diagnoses Diagnosis Screening for colon cancer- Primary Special screening for malignant neoplasms, colon documented in this encounter Care Teams Nurse Practitioner Per Diem Relationship Specialty Start Date End Date Eldon Koehler MD PCP - General 10/06/07 documented as of this encounter
--- OUTSIDE RECORDS SUMMARY | 2024-05-22 17:03 | XMS_ITS | Encounter Summary ---
Author Organization [facility] Address [address] [place] [address] Care Team Providers Care Hitcher Name Role Phone Eldon Koehler MD Primary Care Provider [phone] Encounter Details Date Type Department Care Team (Latest Contact Info) Description 05/23/2015 12:00 PM FLOOR RENOVATOR - 05/23/2015 11:59 PM [facility] Hospital Encounter [facility] Laboratory Services [address] [address] Eldon Koehler MD [address] [place] [address] Discharge Disposition: Home or Self Care [...] Sig Dispensed Refills Start Date End Date capsaicin (ZOSTRIX HP) 0.075 % Cream Apply [...] tablet Take 1 Tab by mouth daily systems architecture analyst. 90 Tab 3 05/20/2014 06/14/2015 azithromycin (ZITHROMAX) 250 mg tabletIndications:RTI (respiratory tract infection) Take 2 tabs the first day and 1 tab days 2-5 1 Package 0 01/21/2014 03/07/2017 documented as of this encounter Plan of Treatment Upcoming Encounters Date Type Department Care Team (Late st Contact Info) Description 07/27/2024 9:40 AM CDT Office Visit [facility] Primary Care [address] [place] [address] Eldon Koehler MD 637 [facility] [address] [place] [address] documented as of this encounter Procedures Procedure Name Priority Date/Time Associated Diagnosis Comments CBC WITH DIFFERENTIAL Routine 05/23/2015 12:01 PM FLOOR RENOVATOR Fibromyalgia VITAMIN D 25 HYDROXY Routine 05/23/2015 12:01 PM FLOOR RENOVATOR Vitamin B12 deficiency (non anemic) TSH Routine 05/23/2015 12:01 PM FLOOR RENOVATOR Other hyperlipidemia HEMOGLOBIN A1C Routine 05/23/2015 12:01 PM FLOOR RENOVATOR Impaired fasting glucose VITAMIN B12 LEVEL Routine 05/23/2015 12: 01 PM FLOOR RENOVATOR Vitamin B12 deficiency (non anemic) CK Routine 05/23/2015 12:01 PM FLOOR RENOVATOR Other hyperlipidemia LIPID PANEL Routine 05/23/2015 12:01 PM FLOOR RENOVATOR Other hyperlipidemia COMPREHENSIVE METABOLIC PANEL Routine 05/23/2015 12:01 PM FLOOR RENOVATOR Other hyperlipidemia documented in this encounter Results * VITAMIN D 25 HYDROXY (05/23/2015 12:01 PM FLOOR RENOVATOR) VITAMIN D TOTAL (25OH) 40 ng/ml 05/23/2015 3:41 PM FLOOR RENOVATOR [facility] Comment: Therapy is based on measurement of [...] ab Collect / Unknown 05/23/2015 12:01 PM FLOOR RENOVATOR 05/23/2015 12:01 PM FLOOR RENOVATOR Eldon Koehler MD CHEMISTRY ORDERABLES Performing Organization Address [facility] Phone Number [facility] [employer] [facility]# [id number] [address] [place] [address] * (ABNORMAL) VITAMIN B12 LEVEL (05/23/2015 12:01 PM FLOOR RENOVATOR) VITAMIN B12 >1,800(H) 211 - 946 pg/mL 05/23/2015 3:42 PM [facility] [employer] [facility] Comment: It has been reported that between 5 to 10% of patients with values between 200 and 400 pg/mL may experience neuropsychiatric and hematologic abnormalities due to occult B12 deficiency. ??Less than 1% of patients with values above 400 pg/mL will have symptoms. Blood Venipuncture - L ab Collect / Unknown 05/23/2015 12:01 PM FLOOR RENOVATOR 05/23/2015 12:01 PM FLOOR RENOVATOR Eldon Koehler MD CHEMISTRY ORDERABLES Performing Organization Address [facility] Phone Number [facility] [employer] [facility]# [id number] [address] [place] [address] * HEMOGLOBIN A1C (05/23/2015 12:01 PM FLOOR RENOVATOR) HEMOGLOBIN A1C 6.0 4.1 - 6.1 % 05/23/2015 7:46 PM FLOOR RENOVATOR [facility] EST. AVG GLUCOSE, A1C 126 mg/dL 05/23/2015 7:46 PM [facility] Blood Venipuncture - L ab Collect / Unknown 05/23/2015 12:01 PM FLOOR RENOVATOR 05/23/2015 12:01 PM FLOOR RENOVATOR Narrative [employer] [facility] - 05/23/2015 7:46 PM FLOOR RENOVATOR Based on the ADAG study equation. Eldon Koehler MD CHEMISTRY ORDERABLES Performing Organization Address [facility]/ZIP Co de Phone Number [facility]# [id number] [address] [place] [address] * TSH (05/23/2015 12:01 PM FLOOR RENOVATOR) Pathologist [facility] TSH 1.66 0.27 - 4.20 uIU/mL 05/23/2015 2:36 PM [facility] [employer] [facility] Blood Venipuncture - L ab Collect / Unknown 05/23/2015 12:01 PM FLOOR RENOVATOR 05/23/2015 12:01 PM FLOOR RENOVATOR Eldon Koehler MD CHEMISTRY ORDERABLES Performing Organization Address [facility] Co de Phone Number [facility] [employer] [facility]# [id number] [address] [place] [address] * (ABNORMAL) LIPID PANEL (05/23/2015 12:01 PM FLOOR RENOVATOR) CHOLESTEROL 185 <200 mg/dL 05/23/2015 2:32 PM [facility] [employer] [facility] TRIGLYCERIDE 190(H) <150 mg/dL 05/23/2015 2:32 PM [facility] HDL 47 40 - 59 mg/dL 05/23/2015 2:32 PM [facility] [employer] [facility] LDL CALCULATED 100(H) <100 mg/dL 05/23/2015 2:32 PM [facility] [employer] [facility] NON-HDL CHOLESTEROL 138(H) <130 mg/dL 05/23/2015 2:32 PM [facility] [employer] [facility] Blood Venipuncture - L ab Collect / Unknown 05/23/2015 12:01 PM FLOOR RENOVATOR 05/23/2015 12:01 PM FLOOR RENOVATOR Narrative [employer] [facility] - 05/23/2015 2:32 PM FLOOR RENOVATOR TOTAL CHOLESTEROL mg/dL ??Desirable ? <200 ??Borderline [...] AHA/NCEP Guidelines Eldon Koehler MD CHEMISTRY ORDERABLES Performing Organization Address [facility]/State/ZIP Co de Phone Number [facility]# [id number] [address] [place] [address] * (ABNORMAL) COMPREHENSIVE METABOLIC PANEL (05/23/2015 12:01 PM FLOOR RENOVATOR) SODIUM 140 136 - 145 mmol/L 05/23/2015 2:32 PM FLOOR RENOVATOR [facility] POTASSIUM 4.7 3.5 - 5.0 mmol/L 05/23/2015 2:32 PM FLOOR RENOVATOR [facility] CHLORIDE 98 98 - 107 mmol/L 05/23/2015 2:32 PM [facility] CO2 27 22 - 29 mmol/L 05/23/2015 2:32 PM [facility] CALCIUM 9.8 8.6 - 10.2 mg/dL 05/23/2015 2:32 PM [facility] BUN 14 8 - 23 mg/dL 05/23/2015 2:32 PM [facility] CREATININE 0.77 0.51 - 0.95 mg/dL 05/23/2015 2:32 PM [facility] GLUCOSE 105(H) 79 - 99 mg/dL 05/23/2015 2:32 PM [facility] TOTAL PROTEIN 8.1 6.7 - 8.6 g/dL 05/23/2015 2:32 PM [facility] ALBUMIN 4.0 3.5 - 5.2 g/dL 05/23/2015 2:32 PM [facility] BILIRUBIN TOTAL 0.5 0.2 - 1.1 mg/dL 05/23/2015 2:32 PM [facility] ALKALINE PHOSPHATASE 182(H) 35 - 104 U/L 05/23/2015 2:32 PM [facility] AST 17 <33 U/L 05/23/2015 2:32 PM [facility] ALT 17 <34 U/L 05/23/2015 2:32 PM [facility] GFR >60 >=60 mL/min/1.7 3 sq meter 05/23/2015 2:32 PM [facility] Comment: eGFR has not been validated [...] mL/min/1.7 3 sq meter 05/23/2015 2:32 PM FLOOR RENOVATOR [facility] ANION GAP 15 8 - 16 mmol/L 05/23/2015 2:32 PM FLOOR RENOVATOR [facility] Blood Venipuncture - L ab Collect / Unknown 05/23/2015 12:01 PM FLOOR RENOVATOR 05/23/2015 12:01 PM FLOOR RENOVATOR Eldon Koehler MD CHEMISTRY ORDERABLES Performing Organization Address City/[facility]/ZIP Co de Phone Number [facility]# [id number] [address] [place] [address] * CK (05/23/2015 12:01 PM FLOOR RENOVATOR) CK 49 20 - 180 U/L 05/23/2015 2:32 PM FLOOR RENOVATOR [facility] Blood Venipuncture - L ab Collect / Unknown 05/23/2015 12:01 PM FLOOR RENOVATOR 05/23/2015 12:01 PM FLOOR RENOVATOR Eldon Koehler MD CHEMISTRY ORDERABLES [facility]# [id number] [address] [place] [address] * (ABNORMAL) CBC WITH DIFFERENTIAL (05/23/2015 12:01 PM FLOOR RENOVATOR) WBC 9.5 4.0 - 9.8 K/uL 05/23/2015 2:34 PM FLOOR RENOVATOR [facility] RBC 4.41 3.90 - 4.90 M/uL 05/23/2015 2:34 PM FLOOR RENOVATOR [facility] HEMOGLOBIN 12.5 11.8 - 14.8 g/dL 05/23/2015 2:34 PM FLOOR RENOVATOR [facility] HEMATOCRIT 40.3 35.5 - 44.0 % 05/23/2015 2:34 PM FLOOR RENOVATOR [facility] MCV 91.4 82.0 - 99.0 fL 05/23/2015 2:34 PM FLOOR RENOVATOR [facility] MCH 28.3 27.2 - 32.6 pg 05/23/2015 2:34 PM FLOOR RENOVATOR [facility] MCHC 31.0 30.0 - 36.0 g/dL 05/23/2015 2:34 PM FLOOR RENOVATOR [facility] RDW 15.2(H) 11.5 - 14.5 % 05/23/2015 2:34 PM FLOOR RENOVATOR [facility] RDW-STDEV 50.9(H) 37.1 - 48.7 fL 05/23/2015 2:34 PM [facility] PLATELETS 414(H) 140 - 350 K/uL 05/23/2015 2:34 PM [facility] MPV 11.4 9.3 - 12.4 fL 05/23/2015 2:34 PM FLOOR RENOVATOR [facility] NEUTROPHILS 65 45 - 70 % 05/23/2015 2:34 PM FLOOR RENOVATOR [facility] LYMPHOCYTES 24 16 - 45 % 05/23/2015 2:34 PM FLOOR RENOVATOR [facility] MONOCYTES 7 3 - 13 % 05/23/2015 2:34 PM FLOOR RENOVATOR [facility] EOSINOPHILS 4 <7 % 05/23/2015 2:34 PM FLOOR RENOVATOR [facility] BASOPHILS 0 <3 % 05/23/2015 2:34 PM FLOOR RENOVATOR [facility] NEUTROPHIL ABSOLUTE 6.14 1.90 - 7.00 K/uL 05/23/2015 2:34 PM FLOOR RENOVATOR [facility] LYMPHOCYTE ABSOLUTE 2.26 0.70 - 4.50 K/uL 05/23/2015 2:34 PM FLOOR RENOVATOR [facility] MONOCYTE ABSOLUTE 0.66 0.10 - 1.30 K/uL 05/23/2015 2:34 PM FLOOR RENOVATOR [facility] EOSINOPHIL ABSOLUTE 0.39 <0.70 K/uL 05/23/2015 2:34 PM FLOOR RENOVATOR [facility] BASOPHILS ABSOLUTE 0.04 <0.30 K/uL 05/23/2015 2:34 PM FLOOR RENOVATOR [facility] Blood Venipuncture - L ab Collect / Unknown 05/23/2015 12:01 PM FLOOR RENOVATOR 05/23/2015 12:01 PM FLOOR RENOVATOR Eldon Koehler MD HEMATOLOGY ORDERABLE S [facility]# [id number] [address] [place] [address] documented in this encounter Visit Diagnoses Diagnosis Fibromyalgia Mylagia and myositis, unspecified Other hyperlipidemia Impaired fasting glucose Vitamin B12 deficiency (non anemic) Other B-complex deficiencies documented in this encounter Care Teams Hitcher Relationship Specialty Start Date End Date Eldon Koehler MD PCP - General 10/06/07 documented as of this encounter
--- OUTSIDE RECORDS SUMMARY | 2024-05-22 17:03 | XMS_ITS | Encounter Summary ---
Author Organization [facility] Address [address] [place] [address] Care Team Providers Care Stitch Bonding Machine Tender Name Role Phone Eldon Koehler MD Primary Care Provider Encounter Details Date Type Department Care Team (Late st Contact Info) Description 11/29/2014 Orders Only [facility] Internal Medicine [address] [address] Eldon Koehler MD [address] [place] [address] [address] [place] [address] Other screening mammogram Social History Tobacco Use Types [...] Visit [facility] Primary Care [address] [place] [address] Eldon Koehler MD [address] [place] [address] [address] [place] [address] documented as of this encounter Procedures Procedure Name Priority Date/Time Associated Diagnosis Comments MAMMO SCREEN BILAT W OR WO CAD Routine 11/08/2014 Other screening mammogram documented in this encounter Results * MAMMO DIGITAL SCREEN BILAT (11/08/2014) Anatomical Region Laterality Modality Breast Bilateral Other Eldon Koehler MD MAMMO ORDERABLES documented in this encounter Visit Diagnoses Diagnosis Other screening mammogram documented in this encounter Care Teams Stitch Bonding Machine Tender Relationship Specialty Start Date End Date Eldon Koehler MD PCP - General 10/06/07 documented as of this encounter
--- OUTSIDE RECORDS SUMMARY | 2024-05-22 17:03 | XMS_ITS | Encounter Summary ---
Author Organization [facility] Address [address] [place] [address] Care Team Providers Care Thermal Cutter Hand Name Role Phone Eldon Koehler MD Primary Care Provider Reason for Referral * Eval and Treat (Routine) - Closed Specialty Diagnoses / Procedures Referred By Carmen villalobos Referred To Contact Dermatology Diagnoses Hyperhydrosis disorder Wilfrid Odonnell [place] [id number] [place] [address] Referral ID Status Reason Start Date Expiration Date V isits Requested Visits Authorized [id number] Closed CRS To Schedule (STL) 04/19/2014 05/14/2014 1 1 R COATING HAND Reason for Visit * Reason Comments Ear Pain OD FU Encounter Details Date Type Department Care Team (Late st Contact Info) Description 04/19/2014 11:20 AM SUGAR COATING HAND Office Visit [facility] Internal Medicine [address] [address] Lacy Vasquez, ANP [address] [place] [address] Otitis externa, bilateral (Primary Dx); OM (otitis media), bilateral; DEPRESSIVE DISORDER NEC; HYPOTHYROIDISM NOS; HYPERLIPIDEMIA NEC/NOS; Hyperhydrosis disorder; Restless leg syndrome; GERD (gastroesophageal reflux disease); Unspecified Asthma; Impaired fasting glucose; Morbid obesity; Fibromyalgia Social History Tobacco Use Types Packs/Day [...] Sign Reading Time Taken Comments Blood Pressure 136/72 04/19/2014 11:29 AM SUGAR COATING HAND Pulse - - Temperature 36.7 ??C (98.1 ??F) 04/19/2014 11:[address] Respiratory Rate - - Oxygen Saturation - - Inhaled Oxygen Concentration - - Weight 134.3 kg (296 lb) 04/19/2014 11:29 AM SUGAR COATING HAND Height 167.6 cm (5' 6 ) 04/19/2014 11:29 AM SUGAR COATING HAND Body Mass Index 47.78 04/19/2014 11:29 AM SUGAR COATING HAND documented in this encounter Progress Notes * Lacy Vasquez, ANP - 04/19/2014 11:31 AM CST HISTORY OF PRESENT ILLNESS Winifred Rodriguez, a 63 y.o. female. HPI Chief Complaint Patient presents with ??? Ear Pain OD FU Pt presents for f/u - labs pending SBP borderline. Weight up 4lbs. Very stressed- daughter on bedrest w/, patient now taking care of granddaughter more. RLS symptoms worse- wants to increase requip- she is up to 1mg now. R ear pain x 5 days, unbearable now. Some sinus drainage/congestion. Granddaughter ill frequently -shares her germs Has been using lotrimin gtts w/o benefit. She also is concerned about excessive sweating for 2 years. States it does not feel like hot flashes, I'm past that . She is afraid to wear makeup 2/2 facial sweating. Very embarrassed to be in public lately d/t sweating spells. Lab Results Component Value Date/Time TSH 1.490 11/11/2013 7:40 AM Her most recent labs were reviewed. Diet [...] Review of Systems Constitutional: Positive for fatigue. HENT: Positive for congestion, ear pain and rhinorrhea. Eyes: Negative for visual disturbance. Respiratory: Negative for cough, shortness of breath and wheezing. Cardiovascular: Negative for chest pain, palpitations and leg swelling. Gastrointestinal: Negative. Genitourinary: Negative. Musculoskeletal: Positive for myalgias. Neurological: Negative. Negative for dizziness and headaches. Hematological: Negative. Psychiatric/Behavioral: Negative for dysphoric mood. Stressed PHYSICAL EXAM BP 136/72 Temp(Src) 98.1 ??F (36.7 ??C) Ht 5' 6 (1.676 m) Wt 296 lb (134.265 kg) BMI 47.8 kg/m2 Physical Exam Vitals reviewed. Constitutional: She is oriented to person, place, and time. She appears well- developed and well-nourished. No distress. HENT: Head: Normocephalic and atraumatic. Right Ear: No lacerations. There is swelling and tenderness. No drainage. No foreign bodies. Tympanic membrane is erythematous. Left Ear: Tympanic membrane is bulging (deep mo fluid, LM not visible, scarring noted. poor light reflex). Nose: Rhinorrhea present. Mouth/Throat: Uvula is midline and oropharynx is clear and moist. No posterior oropharyngeal edema or posterior oropharyngeal erythema. Eyes: Conjunctivae are normal. Neck: Normal range of motion. Neck supple. No thyromegaly present. Cardiovascular: Normal rate, regular rhythm, normal heart sounds and intact distal pulses. Exam reveals no gallop and no friction rub. No murmur heard. Pulmonary/Chest: Effort normal and breath sounds normal. Abdominal: Soft. There is tenderness. Obese Musculoskeletal: Normal range of motion. She exhibits edema (trace BLE). Lymphadenopathy: She has no cervical adenopathy. Neurological: She is alert and oriented to person, place, and time. Skin: Skin is warm and dry. No rash noted. She is not diaphoretic. Psychiatric: She has a normal mood and affect. ASSESSMENT and PLAN: ASSESSMENT: Encounter Diagnoses Name Primary? Otitis externa, bilateral Yes Ciprodex gtts Ibuprofen pain prn ??? OM (otitis media), bilateral Augmentin x 10days nasocort otc ??? DEPRESSIVE DISORDER NEC The current medical regimen is effective; continue present plan and medications. Advised psychotherapy as release with recent living arrangements/exercise as well. ??? HYPOTHYROIDISM NOS Monitor lab.The current medical regimen is effective; continue present plan and medications. ??? HYPERLIPIDEMIA NEC/NOS Review lab. The current medical regimen is effective; continue present plan and medications. ??? Hyperhydrosis disorder Will check thyroid. Advised derm evaluation. Consider brisdelle as option- pt hesistent ??? Restless leg syndrome Continue requip, can increase to 1.5mg, temporarily. Likely increase in symptoms 2/2 stress. ??? GERD (gastroesophageal reflux disease) The current medical regimen is effective; continue present plan and medications. Advised pt to refrain from eating 2-3 hours before bedtime. Minimize triggers such as high fat foods spices, caffeine, and stress. Remain upright 30-60 mins after meals. ??? Unspecified Asthma Stable. Will continue to monitor. ??? Impaired fasting glucose Will review lab. Lifestyle modifications stressed. ??? Morbid obesity Pt advised begin progressive daily aerobic exercise program, follow a low fat, low cholesterol diet, attempt to lose weight, decrease or avoid alcohol intake, improve dietary compliance, Fibromyalgia- The current medical regimen is effective; continue present plan and medications. PLAN: F/u 4 months, prn ENT if ears not improving Orders Placed This Encounter ??? TSH REFLEXIVE ??? COMPREHENSIVE METABOLIC PANEL ??? CBC WITH DIFFERENTIAL ??? LIPID PANEL ??? CK ??? AMB REFERRAL TO DERMATOLOGY ??? ciprofloxacin-dexamethasone (CIPRODEX) 0.3-0.1 % Drops, Suspension ??? DULoxetine (CYMBALTA) 60 mg Capsule, Delayed Release(E.C.) ??? amoxicillin-clavulanate (AUGMENTIN) 875-125 mg tablet ??? rOPINIRole (REQUIP) 1 mg tablet Pt given information on new medications including side effects and proper administration. Verbalized understanding. Informed to call with any concerns. Pt instructed to follow-up as needed and/or if symptoms fail to improve or worsen. Future Appointments Date Time Provider Department Center 08/23/2014 10:15 AM Eldon Koehler MD [facility] R COATING HAND documented in this encounter Plan of Treatment Upcoming Encounters Date Type Department Care Team (Late st Contact Info) Description 07/27/2024 9:40 AM CDT Office Visit [facility] [place] [address] Eldon Koehler MD [address] [place] [address] [address] Scheduled Referrals Name Type Priority Associated Diagnoses Order Schedule AMB REFERRAL TO DERMATOLOGY Outpatient Referral Routine Hyperhydrosis disorder Ordered: 04/19/2014 documented as of this encounter Visit Diagnoses Diagnosis Otitis externa, bilateral- Primary OM (otitis media), bilateral DEPRESSIVE DISORDER NEC Depressive disorder, not elsewhere classified HYPOTHYROIDISM NOS Unspecified hypothyroidism HYPERLIPIDEMIA NEC/NOS Other and unspecified hyperlipidemia Hyperhydrosis disorder Primary focal hyperhidrosis Restless leg syndrome Restless legs syndrome (RLS) GERD (gastroesophageal reflux disease) Esophageal reflux Unspecified Asthma Unspecified asthma Impaired fasting glucose Morbid obesity Fibromyalgia Mylagia and myositis, unspecified documented in this encounter Care Teams Thermal Cutter Hand Relationship Specialty Start Date End Date Eldon Koehler MD PCP - General 10/06/07 documented as of this encounter
--- OUTSIDE RECORDS SUMMARY | 2024-05-22 17:03 | XMS_ITS | Encounter Summary ---
Author Organization [facility] Address [address] [place] [address] Care Team Providers Care Tool Specialist Name Role Phone Eldon Koehler MD Primary Care Provider [phone] Reason for Visit * Reason Onset Date Comments Medication Refill 05/11/2014 Encounter Details Date Type Department Care Team (Late st Contact Info) Description 05/11/2014 Refill [facility] Internal Medicine [address] [address] Eldon Koehler MD [address] [place] [address] OSTEOARTHROS NOS-UNSPEC (Primary Dx) Social History Tobacco Use Types [...] * Telephone Encounter - Glendy Ross - 05/11/2014 1:22 PM CST lvm for pt, rx in drawer SEARCHER * Telephone Encounter - Dae Valente - 05/11/2014 11:08 AM CST Next ov 08/23/14 SEARCHER documented in this encounter Plan of Treatment Upcoming Encounters Date Type Department Care Team (Late st Contact Info) Description 07/27/2024 9:40 AM CDT Office Visit [facility] Primary Care [id number] [place] [address] Eldon Koehler MD [address] [place] [address] [address] [place] [address] documented as of this encounter Visit Diagnoses Diagnosis OSTEOARTHROS NOS-UNSPEC- Primary Osteoarthrosis, unspecified whether generalized or localized, unspecified site documented in this encounter Care Teams Tool Specialist Relationship Specialty Start Date End Date Eldon Koehler MD PCP - General 10/06/07 documented as of this encounter
--- OUTSIDE RECORDS SUMMARY | 2024-05-22 17:03 | XMS_ITS | Encounter Summary ---
Author Organization [facility] Address [address] [place] [address] Care Team Providers Care Bricklayer Paving Brick Name Role Phone Eldon Koehler MD Primary Care Provider [phone] Reason for Visit * Reason Comments Ear Pain rt one Encounter Details Date Type Department Care Team (Late st Contact Info) Description 09/09/2013 3:45 PM CDT Office Visit [facility] Internal Medicine [address] [address] Eldon Koehler MD [address] [place] [address] OE (otitis externa), bilateral (Primary Dx); OM (otitis media), acute, right Social History Tobacco Use Types Packs/Day Years [...] Sign Reading Time Taken Comments Blood Pressure 124/86 09/09/2013 3:48 PM CDT Pulse - - Temperature 37.2 ??C (98.9 ??F) 09/09/2013 3:48 PM CD T Respiratory Rate - - Oxygen Saturation - - Inhaled Oxygen Concentration - - Weight 137.9 kg (304 lb) 09/09/2013 3:48 PM CDT Height 167.6 cm (5' 6 ) 09/09/2013 3:48 PM CDT Body Mass Index 49.07 09/09/2013 3:48 PM CDT documented in this encounter Progress Notes * Eldon Koehler MD - 09/09/2013 5:32 PM CDT Ear pain right Now on left Canal Sinus present No fever Severe pain , hydrocodone not helping The patient appears alert, well appearing, and in no distress.- ENT exam Canals inflamed worse on right, inflammation right tm as well., Chest:clear to auscultation, no wheezes, rales or rhonchi, symmetric air entry. Heart sounds arerrrAbdomen soft, nontender ASSESSMENT: Encounter Diagnoses Name Primary? OE (otitis externa), bilateral Yes ??? OM (otitis media), acute, right Risk of levaquin including tendon rupture or severe skin reaction, stop medicine and call if diarrhea, rash, facial swelling or other. PLAN: Orders Placed This Encounter ??? clotrimazole (LOTRIMIN) 1 % Solution ??? levofloxacin (LEVAQUIN) 500 mg tablet ??? ciprofloxacin-dexamethasone (CIPRODEX) 0.3-0.1 % Drops, Suspension ??? antipyrine-benzocaine (AURODEX) 5.4-1.4 % Drops ??? montelukast (SINGULAIR) 10 mg tablet documented in this encounter Plan of Treatment Upcoming Encounters Date Type Department Care Team (Late st Contact Info) Description 07/27/2024 9:40 AM CDT Office Visit [facility] Primary Care [address] [place] [address] Eldon Koehler MD [address] [place] [address] [address] [place] [address] documented as of this encounter Visit Diagnoses Diagnosis OE (otitis externa), bilateral- Primary OM (otitis media), acute, right documented in this encounter Care Teams Bricklayer Paving Brick Relationship Specialty Start Date End Date Eldon Koehler MD PCP - General 10/06/07 documented as of this encounter
--- OUTSIDE RECORDS SUMMARY | 2024-05-22 17:03 | XMS_ITS | Encounter Summary ---
Author Organization [facility] Address [address] [place] [address] Care Team Providers Care Grease Refiner Operator Name Role Phone Eldon Koehler MD Primary Care Provider [phone] Encounter Details Date Type Department Care Team (Late st Contact Info) Description 04/29/2015 Abstract [facility] Internal Medicine [address] [address] Provider, Abstract NO ADDRESS ON [...] [facility] Primary Care [address] [place] [address] Eldon Koehler MD [address] [place] [address] [address] [place] [address] documented as of this encounter Procedures Procedure Name Priority Date/Time Associated Diagnosis Comments URINALYSIS W/REFLEX MICROSCOPIC Routine 04/19/2015 documented in this encounter Results * (ABNORMAL) URINALYSIS (04/19/2015) MACRO COMMENT EXTERNAL LAB COLOR UA EXTERNAL LAB COLOR UA [place](A) Pale to Dark Yellow EXTERNAL LAB CLARITY UA EXTERNAL LAB CLARITY UA Cloudy(A) Clear EXTERNAL LAB SPECIFIC GRAVITY UA EXTERNAL LAB SPECIFIC GRAVITY UA 1.029 1.003 - 1.035 EXTERNAL LAB PH UA 6.0 5.0 - 8.0 EXTERNAL LAB PH UA EXTERNAL LAB LEUKOCYTE ESTERASE UA EXTERNAL LAB LEUKOCYTE ESTERASE UA 1+(A) Negative EXTERNAL LAB NITRITE UA Negative Negative EXTERNAL LAB NITRITE UA EXTERNAL LAB PROTEIN UA 1+(A) Negative EXTERNAL LAB PROTEIN UA EXTERNAL LAB GLUCOSE UA Negative Negative EXTERNAL LAB GLUCOSE UA EXTERNAL LAB KETONES UA Trace(A) Negative EXTERNAL LAB KETONES UA EXTERNAL LAB UROBILINOGEN UA 4.0(A) <2.0 mg/dL EXTERNAL LAB UROBILINOGEN UA EXTERNAL LAB BILIRUBIN UA 1+(A) Negative EXTERNAL LAB BILIRUBIN UA EXTERNAL LAB BLOOD UA Negative Negative EXTERNAL LAB BLOOD UA EXTERNAL LAB MICRO EXAM EXTERNAL LAB WBC URINE negative EXTERNAL LAB WBC UA 0 - 2 /hpf EXTERNAL LAB WBC CLUMPS EXTERNAL LAB WBC CLUMPS Absent EXTERNAL LAB RBC UA 0 - 2 /hpf EXTERNAL LAB RBC, URINE EXTERNAL LAB RBC MORPHOLOGY URINE EXTERNAL LAB BACTERIA UA Negative /hpf EXTERNAL LAB BACTERIA UA EXTERNAL LAB EPITHELIAL CELLS, URINE 0 - 5 /hpf EXTERNAL LAB EPITHELIAL CELLS, URINE EXTERNAL LAB TRANSITIONAL EPI EXTERNAL LAB TRANSITIONAL EPI 0 - 2 /hpf EXTERNAL LAB RENAL EPITHELIAL EXTERNAL LAB RENAL EPITHELIAL None Seen /hpf EXTERNAL LAB YEAST EXTERNAL LAB YEAST Absent EXTERNAL LAB TRICHOMONAS EXTERNAL LAB TRICHOMONAS Absent EXTERNAL LAB CLUE CELLS EXTERNAL LAB CRYSTALS, URINE None Seen EXTERNAL LAB CRYSTAL IDENTIFICATION EXTERNAL LAB CA OXALATE CRYSTAL EXTERNAL LAB AMORPHOUS URATES, URINE EXTERNAL LAB AMORPHOUS PHOSPHATES, URINE EXTERNAL LAB AMORPHOUS CRYSTAL EXTERNAL LAB AMORPHOUS CRYSTAL Absent EXTERNAL LAB URIC ACID CRYSTAL Absent EXTERNAL LAB URIC ACID CRYSTAL Absent EXTERNAL LAB URIC ACID CRYSTAL EXTERNAL LAB TRIPLE PHOS Absent EXTERNAL LAB TRIPLE PHOS EXTERNAL LAB LEUCINE CRYSTAL EXTERNAL LAB LEUCINE CRYSTAL Absent EXTERNAL LAB TYROSINE CRYSTAL EXTERNAL LAB TYROSINE CRYSTAL Absent EXTERNAL LAB CYSTEINE CRYSTAL EXTERNAL LAB CYSTEINE CRYSTAL Absent EXTERNAL LAB CA CARBONATE CRYSTAL EXTERNAL LAB CA CARBONATE CRYSTAL Absent EXTERNAL LAB CA PHOSPATE CRYSTAL EXTERNAL LAB CRYSTAL IDENTIFICATION EXTERNAL LAB HYALINE CAST None Seen, 0-2 /lpf EXTERNAL LAB HYALINE CAST EXTERNAL LAB BROAD CAST. EXTERNAL LAB BROAD CAST. None Seen /lpf EXTERNAL LAB WBC CAST None Seen /lpf EXTERNAL LAB WBC CAST EXTERNAL LAB RBC CAST None Seen /lpf EXTERNAL LAB RBC CAST EXTERNAL LAB CELLULAR CAST. EXTERNAL LAB MIXED CELL CAST. EXTERNAL LAB MIXED CELL CAST. None Seen /lpf EXTERNAL LAB EPITH. CELL CAST. EXTERNAL LAB EPITH. CELL CAST. None Seen /lpf EXTERNAL LAB GRANULAR CAST None Seen /lpf EXTERNAL LAB FINE GRAN. CAST. EXTERNAL LAB FINE GRAN. CAST. EXTERNAL LAB COARSE GRANULAR CASTS, URINE EXTERNAL LAB GRANULAR CAST EXTERNAL LAB WAXY CAST None Seen /lpf EXTERNAL LAB WAXY CAST EXTERNAL LAB FATTY CAST None Seen /lpf EXTERNAL LAB FATTY CAST EXTERNAL LAB CASTS, URINE EXTERNAL LAB OVAL FAT BODY EXTERNAL LAB OVAL FAT BODY Absent EXTERNAL LAB SPERMATOZOA Absent EXTERNAL LAB MUCOUS, URINE EXTERNAL LAB MICRO COMMENT EXTERNAL LAB MICRO COMMENT 2 EXTERNAL LAB URINE CULTURE ORDER EXTERNAL LAB Urine, clean catch URINE SPECIMEN OBTAINED BY CLEAN CATCH PROCEDURE / Unknown 04/19/2015 Abstract Provider URINE ORDERABLES EXTERNAL LAB documented in this encounter Visit Diagnoses Not on filedocumented in this encounter Care Teams Grease Refiner Operator Relationship Specialty Start Date End Date Eldon Koehler MD PCP - General 10/06/07 documented as of this encounter
--- OUTSIDE RECORDS SUMMARY | 2024-05-22 17:03 | XMS_ITS | Encounter Summary ---
Author Organization [facility] Address [address] [place] [address] Care Team Providers Care Child Psychiatrist Name Role Phone Eldon Koehler MD Primary Care Provider [phone] Reason for Visit * Reason Comments Upper Respiratory Symptoms coughing Encounter Details Date Type Department Care Team (Late st Contact Info) Description 01/21/2014 11:40 AM CDT Office Visit [facility] Internal Medicine [address] [address] Lacy Vasquez, [address] [address] RTI (respiratory tract infection) (Primary Dx); Wheeze; Unspecified Asthma Social History Tobacco Use Types Packs/Day Years [...] Reading Time Taken Comments Blood Pressure 120/80 01/21/2014 11:47 AM CDT Pulse - - Temperature 37.2 ??C (99 ??F) 01/21/2014 11:47 AM CDT Respiratory Rate - - Oxygen Saturation - - Inhaled Oxygen Concentration - - Weight 132.5 kg (292 lb) 01/21/2014 11:47 AM CDT Height 167.6 cm (5' 6 ) 01/21/2014 11:47 AM CDT Body Mass Index 47.13 01/21/2014 11:47 AM CDT documented in this encounter Progress Notes * Lacy Vasquez, ANP - 01/21/2014 12:07 PM CDT HISTORY OF PRESENT ILLNESS Winifred Rodriguez, a 63 y.o. female. HPI Chief Complaint Patient presents with ??? Upper Respiratory Symptoms coughing Pt presents with cough and wheezing x 4 days Associated with fatigue, insomnia and fever. Using albuterol 4-6x day and not Granddaughter started preschool and now everyone is sick in her home. Tried nyquil w/o benefit Her most recent labs were reviewed. Diet [...] SYSTEMS Review of Systems Constitutional: Positive for fever and fatigue. Negative for chills and diaphoresis. HENT: Positive for congestion, rhinorrhea and sinus pressure. Eyes: Negative. Respiratory: Positive for cough, shortness of breath and wheezing. Cardiovascular: Negative for chest pain and palpitations. Gastrointestinal: Negative. Endocrine: Negative. Musculoskeletal: Negative. Skin: Negative. Negative for rash. Allergic/Immunologic: Negative. Neurological: Positive for headaches. Negative for weakness. Hematological: Negative. Psychiatric/Behavioral: Negative. PHYSICAL EXAM BP 120/80 Temp(Src) 99 ??F (37.2 ??C) (Oral) Ht 5' 6 (1.676 m) Wt 292 lb (132.45 kg) BMI 47.15 kg/m2 Physical Exam Vitals reviewed. Constitutional: She is oriented to person, place, and time. She appears well- developed and well-nourished. No distress. HENT: Head: Normocephalic and atraumatic. Right Ear: Tympanic membrane is bulging (clear fluid level present). Left Ear: Tympanic membrane is bulging (clear fluid level present). Nose: Mucosal edema and rhinorrhea present. Mouth/Throat: Posterior oropharyngeal erythema present. Neck: Normal range of motion. Neck supple. Cardiovascular: Normal rate, regular rhythm and normal heart sounds. Pulmonary/Chest: Effort normal. She has wheezes (inspiratory/expiratory BUL anterior/regulatory compliance coordinator). She has no rales. Musculoskeletal: Normal range of motion. Lymphadenopathy: Head (right side): Tonsillar adenopathy present. Head (left side): Tonsillar adenopathy present. She has no cervical adenopathy. Neurological: She is alert and oriented to person, place, and time. Skin: Skin is warm and dry. No rash noted. Psychiatric: She has a normal mood and affect. ASSESSMENT and PLAN: ASSESSMENT: Encounter Diagnoses Name Primary? RTI (respiratory tract infection) Yes Zpak, tessalon, steroid taper Encourage supportive therapy with rest, increasing fluids. ??? Wheeze Medrol dose pack ??? Unspecified Asthma Discussed stepwise approach to ashtma with pt and ICS. Pt has tried advair in the past. Breo samples given to try, but pt hesitant to start maintainance inhaler. PLAN: Orders Placed This Encounter ??? albuterol 90 mcg/Actuation HFA inhaler ??? methylPREDNISolone (MEDROL DOSPACK) 4 mg Tablets, Dose Pack ??? azithromycin (ZITHROMAX) 250 mg tablet ??? benzonatate (TESSALON) 100 mg capsule ??? fluticasone-vilanterol (BREO ELLIPTA) 100-25 mcg/dose Disk with Device Pt given information on new medications including side effects and proper administration. Verbalized understanding. Informed to call with any concerns. Pt instructed to follow-up as needed and/or if symptoms fail to improve or worsen. Future Appointments Date Time Provider Department Center 02/16/2014 2:30 PM Eldon Koehler MD [facility] documented in this encounter Plan of Treatment Upcoming Encounters Date Type Department Care Team (Late st Contact Info) Description 07/27/2024 9:40 AM CDT Office Visit [facility] Care [address] [address] [place] [address] Eldon Koehler MD [address] [place] [address] [address] [address] [place] [address] documented as of this encounter Visit Diagnoses Diagnosis RTI (respiratory tract infection)- Primary Other diseases of respiratory system, not elsewhere classified Wheeze Wheezing Unspecified Asthma Unspecified asthma documented in this encounter Care Teams Child Psychiatrist Relationship Specialty Start Date End Date Eldon Koehler MD PCP - General 10/06/07 documented as of this encounter
--- OUTSIDE RECORDS SUMMARY | 2024-05-22 17:03 | XMS_ITS | Encounter Summary ---
Author Organization [facility] Address [address] [place] [address] Care Team Providers Care Cable Assembler Name Role Phone Eldon Koehler MD Primary Care Provider Reason for Visit * Reason Onset Date Comments Medication Refill 12/30/2014 Encounter Details Date Type Department Care Team (Late st Contact Info) Description 12/30/2014 Refill [facility] Internal Medicine [address] [address] Eldon Koehler MD [address] [place] [address] HYPERLIPIDEMIA NEC/NOS (Primary Dx); DEPRESSIVE DISORDER NEC Social History Tobacco Use [...] encounter Miscellaneous Notes * Telephone Encounter - Dae Valente - 01/02/2015 9:49 AM CDT Faxed script * Telephone Encounter - Dae Valente - 12/30/2014 10:14 AM CDT Pt changed to mail Order pharmacy script for Lyrica needs to be printed and faxed documented in this encounter Plan of Treatment Upcoming Encounters Date Type Department Care Team (Late st Contact Info) Description 07/27/2024 9:40 AM CDT Office Visit [facility] Primary Care [facility] [address] [place] [address] [address] [place] [address] Eldon Koehler MD [address] [place] [address] [address] [place] [address] documented as of this encounter Procedures Procedure Name Priority Date/Time Associated Diagnosis Comments CBC WITH DIFFERENTIAL Routine 01/24/2015 7:59 AM CDT TSH Routine 01/24/2015 7:59 AM CDT HEMOGLOBIN A1C Routine 01/24/2015 7:59 AM CDT LIPID PANEL Routine 01/24/2015 7:59 AM CDT COMPREHENSIVE METABOLIC PANEL Routine 01/24/2015 7:59 AM CDT documented in this encounter Results * (ABNORMAL) HEMOGLOBIN A1C (01/24/2015 7:59 AM CDT) HEMOGLOBIN A1C 6.5(H) <5.7 % of total Hgb [facility] Comment: According to ADA guidelines, hemoglobin [...] children. REPORT COMMENT: FASTING:YES Test Performed at: [facility] [address] [place] ??[phone] MARY ANN JACOBO DO,MPH 01/24/2015 7:59 AM CDT Eldon Koehler MD CHEMISTRY ORDERABLES Performing Organization Address City/[facility] Co de Phone Number [facility] [address] [place] [address] * TSH (01/24/2015 7:59 AM CDT) TSH 0.41 0.40 - 4.50 mIU/L [facility] Comment: REPORT COMMENT: FASTING:YES Test Performed at: [facility] [address] [place] ??[phone] MARY ANN JACOBO DO,MPH 01/24/2015 7:59 AM CDT Eldon Koehler MD CHEMISTRY ORDERABLES Performing Organization Address [facility] Co de Phone Number [facility] [address] [place] [address] * (ABNORMAL) COMPREHENSIVE METABOLIC PANEL (01/24/2015 7:59 AM CDT) GLUCOSE 105(H) 65 - 99 mg/dL [facility] Comment:Fasting reference in terval BUN 12 7 - 25 mg/dL [facility] CREATININE 0.75 0.50 - 0.99 mg/dL [facility] Comment: For patients >49 years of age, the reference limit for Creatinine is approximately 13% higher for people identified as -Ivorian. GFR 85 > OR = 60 mL/min/1 .73m2 [facility] GFR, 99 > OR = 60 mL/min/1 .73m2 [facility] . [facility] BUN/CREAT RATIO NOT APPLICABLE 6 - 22 (calc) [facility] SODIUM 138 135 - 146 mmol/L [facility] . [facility] POTASSIUM 4.5 3.5 - 5.3 mmol/L [facility] CHLORIDE 100 98 - 110 mmol/L [employer] [facility] CO2 29 19 - 30 mmol/L [facility]. [facility] CALCIUM 9.5 8.6 - 10.4 mg/dL [facility] . [facility] TOTAL PROTEIN 6.8 6.1 - 8.1 g/dL [facility]. [facility] ALBUMIN 4.1 3.6 - 5.1 g/dL [facility]. [facility] GLOBULIN 2.7 1.9 - 3.7 g/dL (calc) [facility]. [facility] ALBUMIN/GLOBULIN RATIO 1.5 1.0 - 2.5 (calc) [facility] BILIRUBIN TOTAL 0.7 0.2 - 1.2 mg/dL [facility] ALKALINE PHOSPHATASE 146(H) 33 - 130 U/L [facility] AST 17 10 - 35 U/L [facility] ALT 23 6 - 29 U/L [facility] [employer] [facility] Comment: Test Performed at: [facility] [address] [place] ??[phone] MARY ANN JACOBO DO,MPH 01/24/2015 7:59 AM CDT Eldon Koehler MD CHEMISTRY ORDERABLES [facility] [address] [place] [address] * LIPID PANEL (01/24/2015 7:59 AM CDT) CHOLESTEROL 184 125 - 200 mg/dL [facility] Comment: Test Performed at: [employer] [address] [place] ??[phone] MARY ANN JACOBO DO,MPH HDL 57 > OR = 46 mg/dL [facility] TRIGLYCERIDE 133 <150 mg/dL [facility] LDL CALCULATED 100 <130 mg/dL (calc) [facility] Comment: Desirable range <100 mg/dL for patients with CHD or diabetes and <70 mg/dL for diabetic patients with known heart disease. CHOL/HDL RATIO 3.2 < OR = 5.0 (calc) [employer] [facility] TOTAL NON-HDL CHOL(LDL+VLDL) 127 mg/dL (calc) [facility] Comment: Target for non-HDL cholesterol is 30 mg/dL higher than LDL cholesterol target. 01/24/2015 7:59 AM CDT Eldon Koehler MD CHEMISTRY ORDERABLES [facility] [address] [place] [address] * (ABNORMAL) CBC WITH DIFFERENTIAL (01/24/2015 7:59 AM CDT) WBC 8.6 3.8 - 10.8 Thousand/ uL [facility] RBC 4.78 3.80 - 5.10 Million/u L [facility] HEMOGLOBIN 13.3 11.7 - 15.5 g/dL [facility] HEMATOCRIT 41.9 35.0 - 45.0 % [facility] MCV 87.6 80.0 - 100.[address] [facility] MCH 27.7 27.0 - 33.0 pg [facility] MCHC 31.7(L) 32.0 - 36.0 g/dL [facility] RDW 15.5(H) 11.0 - 15.0 % [facility] PLATELETS 293 140 - 400 Thousand/ uL [facility] MPV 9.8 7.5 - 11.[address] [facility] NEUTROPHIL ABSOLUTE 5,839 1,500 - 7,800 cells/uL [facility] LYMPHOCYTE ABSOLUTE 1,883 850 - 3,900 cells/uL [facility] MONOCYTE ABSOLUTE 576 200 - 950 cells/uL [facility] EOSINOPHIL ABSOLUTE 275 15 - 500 cells/uL [facility] BASOPHILS ABSOLUTE 26 0 - 200 cells/uL [facility] NEUTROPHIL 67.9 % [facility] LYMPHOCYTES 21.9 % [facility] MONOCYTE 6.7 % [facility] EOSINOPHILS 3.2 % [facility] BASOPHILS 0.3 % [facility] Comment: REPORT COMMENT: FASTING:YES Test Performed at: [facility] [address] ??[phone] MARY ANN JACOBO DO,MPH 01/24/2015 7:59 AM CDT Eldon Koehler MD HEMATOLOGY ORDERABLE S [facility] [address] [place] [address] documented in this encounter Visit Diagnoses Diagnosis HYPERLIPIDEMIA NEC/NOS- Primary Other and unspecified hyperlipidemia DEPRESSIVE DISORDER NEC Depressive disorder, not elsewhere classified documented in this encounter Care Teams Cable Assembler Relationship Specialty Start Date End Date Eldon Koehler MD PCP - General 10/06/07 documented as of this encounter
--- OUTSIDE RECORDS SUMMARY | 2024-05-22 17:03 | XMS_ITS | Encounter Summary ---
Author Organization [facility] Address [address] [place] [address] Care Team Providers Care Pressure Sealer And Tester Name Role Phone Eldon Koehler MD Primary Care Provider [phone] Reason for Visit * Reason Onset Date Comments Medication Refill 08/22/2014 Encounter Details Date Type Department Care Team (Late st Contact Info) Description 08/22/2014 Refill [facility] Internal Medicine [address] [address] Eldon Koehler MD [address] [place] [address] DEPRESSIVE DISORDER NEC (Primary Dx) Social [...] * Telephone Encounter - Glendy Ross - 08/22/2014 4:52 PM CDT NOV 09/19/14,EMILY 07/06/14 documented in this encounter Plan of Treatment Upcoming Encounters Date Type Department Care Team (Late st Contact Info) Description 07/27/2024 9:40 AM CDT Office Visit [facility] Primary Care [address] [place] [address] Eldon Koehler MD [address] [place] [address] [address] [place] [address] documented as of this encounter Visit Diagnoses Diagnosis DEPRESSIVE DISORDER NEC- Primary Depressive disorder, not elsewhere classified documented in this encounter Care Teams Pressure Sealer And Tester Relationship Specialty Start Date End Date Eldon Koehler MD PCP - General 10/06/07 documented as of this encounter
--- OUTSIDE RECORDS SUMMARY | 2024-05-22 17:03 | XMS_ITS | Encounter Summary ---
Author Organization [facility] Address [address] [place] [address] Care Team Providers Care Pump Servicer Supervisor Name Role Phone Eldon Koehler MD Primary Care Provider [phone] Encounter Details Date Type Department Care Team (Late st Contact Info) Description 04/25/2015 Orders Only [facility] Internal Medicine [address] [address] Provider, Abstract NO ADDRESS ON [...] [facility] Primary Care [address] [place] [address] Eldon Koehler MD [address] [place] [address] [address] [place] [address] documented as of this encounter Procedures Procedure Name Priority Date/Time Associated Diagnosis Comments XR KNEE 4+ VW LEFT Routine 04/19/2015 documented in this encounter Results * XR KNEE 4+ VW LEFT (04/19/2015) Anatomical Region Laterality Modality Lower Extremity Other Abstract Provider DIAGNOSTIC IMAGING O RDERABLES documented in this encounter Visit Diagnoses Not on filedocumented in this encounter Care Teams Pump Servicer Supervisor Relationship Specialty Start Date End Date Eldon Koehelr MD PCP - General 10/06/07 documented as of this encounter
--- OUTSIDE RECORDS SUMMARY | 2024-05-22 17:03 | XMS_ITS | Encounter Summary ---
Author Organization [facility] Address [address] [place] [address] Care Team Providers Care Environmental Lead Name Role Phone Eldon Koehler MD Primary Care Provider [phone] Encounter Details Date Type Department Care Team (Late st Contact Info) Description 04/17/2015 Orders Only [facility] Internal Medicine [address] [address] Provider, Abstract NO ADDRESS ON [...] [facility] Primary Care [address] [place] [address] Eldon Koehler MD [address] [place] [address] [address] [place] [address] documented as of this encounter Procedures Procedure Name Priority Date/Time Associated Diagnosis Comments XR KNEE 1 OR 2 VW LEFT Routine 04/12/2015 documented in this encounter Results * XR KNEE 1 OR 2 VW LEFT (04/12/2015) Anatomical Region Laterality Modality Lower Extremity Other Abstract Provider DIAGNOSTIC IMAGING O RDERABLES documented in this encounter Visit Diagnoses Not on filedocumented in this encounter Care Teams Environmental Lead Relationship Specialty Start Date End Date Eldon Koehler MD PCP - General 10/06/07 documented as of this encounter
--- OUTSIDE RECORDS SUMMARY | 2024-05-22 17:03 | XMS_ITS | Encounter Summary ---
Author Organization [facility] Address [address] [place] [address] Care Team Providers Care Slide Maker Name Role Phone Eldon Koehler MD Primary Care Provider [phone] Reason for Visit * Reason Comments Medication Refill Encounter Details Date Type Department Care Team (Late st Contact Info) Description 06/11/2015 Refill [facility] Internal Medicine [address] [phone] Lacy Vasquez, [address] [place] [address] Social History Tobacco Use Types [...] * Telephone Encounter - Jacqueline Akhtar - 06/12/2015 3:58 PM CST NEXT OV 08/29/15 GE DOOR TECHNICIAN documented in this encounter Plan of Treatment Upcoming Encounters Date Type Department Care Team (Late st Contact Info) Description 07/27/2024 9:40 AM CDT Office Visit [facility] Primary Care [address] [place] [address] Eldon Koehler MD [address] [place] [address] [address] [place] [address] documented as of this encounter Visit Diagnoses Not on filedocumented in this encounter Care Teams Slide Maker Relationship Specialty Start Date End Date Eldon Koehler MD PCP - General 10/06/07 documented as of this encounter
--- OUTSIDE RECORDS SUMMARY | 2024-05-22 17:03 | XMS_ITS | Encounter Summary ---
Author Organization [facility] Address [address] [place] [address] Care Team Providers Care Automobile Mechanic Helper Name Role Phone Eldon Koehler MD Primary Care Provider [phone] Reason for Visit * Reason Comments Upper Respiratory Symptoms Sore Throat Encounter Details Date Type Department Care Team (Late st Contact Info) Description 06/04/2013 1:00 PM SLAGGER Office Visit [facility] Internal Medicine [address] [address] Eldon Koehler MD [address] [place] [address] Acute pharyngitis (Primary Dx); OM (otitis media); OE (otitis externa) Social History Tobacco Use Types Packs/Day Years [...] Reading Time Taken Comments Blood Pressure 130/80 06/04/2013 1:07 PM SLAGGER Pulse - - Temperature 36.9 ??C (98.4 ??F) 06/04/2013 1:07 PM CS T Respiratory Rate - - Oxygen Saturation - - Inhaled Oxygen Concentration - - Weight 136.1 kg (300 lb) 06/04/2013 1:07 PM SLAGGER Height 167.6 cm (5' 6 ) 06/04/2013 1:07 PM SLAGGER Body Mass Index 48.42 06/04/2013 1:07 PM SLAGGER documented in this encounter Progress Notes * Eldon Koehler MD - 06/04/2013 1:24 PM CST 2-3 d cough kendrick sore throat Sinus ears full Itch canal Had flu vac Daugther, GD with strep The patient appears alert, well appearing, and in no distress.- ENT exam af level tms , canals someinflammation, op clearnormal, no neck nodes or sinus tenderness., Chest:clear to auscultation, no wheezes, rales or rhonchi, symmetric air entry. Heart sounds are normal. Abdomen soft, nontender, no masses or organomegaly. ASSESSMENT: Encounter Diagnoses Name Primary? Acute pharyngitis Yes ??? OM (otitis media) ??? OE (otitis externa) PLAN: Orders Placed This Encounter ??? ciprofloxacin-dexamethasone (CIPRODEX) 0.3-0.1 % Drops, Suspension GER documented in this encounter Plan of Treatment Upcoming Encounters Date Type Department Care Team (Late st Contact Info) Description 07/27/2024 9:40 AM CDT Office Visit [facility] Primary Care [address] [place] [address] Eldon Koehler MD [address] [place] [address] [address] [place] [address] documented as of this encounter Visit Diagnoses Diagnosis Acute pharyngitis- Primary OM (otitis media) Unspecified otitis media OE (otitis externa) Infective otitis externa, unspecified documented in this encounter Care Teams Automobile Mechanic Helper Relationship Specialty Start Date End Date Eldon Koehler MD PCP - General 10/06/07 documented as of this encounter
--- OUTSIDE RECORDS SUMMARY | 2024-05-22 17:03 | XMS_ITS | Encounter Summary ---
Author Organization [facility] Address [address] [place] [address] Care Team Providers Care Stitchdown Thread Laster Name Role Phone Eldon Koehler MD Primary Care Provider [phone] Encounter Details Date Type Department Care Team (Late Contact Info) Description 12/12/2014 Abstract [facility] Internal Medicine [address] [address] Provider, Abstract NO ADDRESS ON [...] Visit [facility] Primary Care [address] [place] [address] Eldon Koehler MD [address] [place] [address] [address] [place] [address] documented as of this encounter Visit Diagnoses Not on filedocumented in this encounter Care Teams Stitchdown Thread Laster Relationship Specialty Start Date End Date Eldon Koehler MD PCP - General 10/06/07 documented as of this encounter
--- OUTSIDE RECORDS SUMMARY | 2024-05-22 17:03 | XMS_ITS | Encounter Summary ---
Author Organization [facility] Address [address] [place] [address] Care Team Providers Care Chain Puller Name Role Phone Eldon Koehler MD Primary Care Provider Encounter Details Date Type Department Care Team (Late st Contact Info) Description 04/19/2014 Office Visit [facility] Internal Medicine [address] [address] Eldon Koehler MD [address] [place] [address] [address] [place] [address] Social History Tobacco Use Types [...] [facility] Primary Care [address] [place] [address] [place] [address] Eldon Koehler MD [address] [place] [address] [address] [place] [address] documented as of this encounter Procedures Procedure Name Priority Date/Time Associated Diagnosis Comments CBC WITH DIFFERENTIAL Routine 04/19/2014 8:51 AM BOX CLOSING MACHINE OPERATOR TSH Routine 04/19/2014 8:51 AM BOX CLOSING MACHINE OPERATOR HEMOGLOBIN A1C Routine 04/19/2014 8:51 AM BOX CLOSING MACHINE OPERATOR LIPID PANEL Routine 04/19/2014 8:51 AM BOX CLOSING MACHINE OPERATOR COMPREHENSIVE METABOLIC PANEL Routine 04/19/2014 8:51 AM BOX CLOSING MACHINE OPERATOR documented in this encounter Results * (ABNORMAL) TSH (04/19/2014 8:51 AM BOX CLOSING MACHINE OPERATOR) TSH 4.530(H) 0.450 - 4.500 uIU/mL [facility] 04/19/2014 8:51 AM BOX CLOSING MACHINE OPERATOR 04/19/2014 1:28 PM BOX CLOSING MACHINE OPERATOR Narrative [facility] - 04/20/2014 7:18 AM BOX CLOSING MACHINE OPERATOR Performed at: ??01 - [facility] ??[id number] Scoreboard Operator: Car Santyoo PhD, Phone: ??[phone] Eldon Koehler MD CHEMISTRY ORDERABLES [facility] * (ABNORMAL) HEMOGLOBIN A1C (04/19/2014 8:51 AM BOX CLOSING MACHINE OPERATOR) HEMOGLOBIN A1C 6.2(H) 4.8 - 5.6 % [facility] Comment: ? Increased risk for diabetes: 5.7 - 6.4 ? Diabetes: >6.4 ? Glycemic control for adults with diabetes: <7.0 04/19/2014 8:51 AM BOX CLOSING MACHINE OPERATOR 04/19/2014 1:28 PM BOX CLOSING MACHINE OPERATOR Narrative [facility] - 04/20/2014 7:18 AM BOX CLOSING MACHINE OPERATOR Performed at: ??01 - [facility] ??[id number] Scoreboard Operator: Car Santoyo PhD, Phone: ??[phone] Eldon Koehler MD CHEMISTRY ORDERABLES Performing Organization Address [facility] de Phone Number [facility] * LIPID PANEL (04/19/2014 8:51 AM BOX CLOSING MACHINE OPERATOR) Pathologist [facility] RESULT Comment [facility] Comment: Component Name: Jaqueline Singh LP Default A hand-written panel/profile was received from your office. In accordance with the [facility] Ambiguous Test Code Policy dated November 2002, we have completed your order by using the closest currently or formerly recognized AMA panel. ??We have assigned Lipid Panel, Test Code #167012 to this request. If this is not the testing you wished to receive on this specimen, please contact the [employer] Client Inquiry/Technical Services Department to clarify the test order. ??We appreciate your business. 04/19/2014 8:51 AM BOX CLOSING MACHINE OPERATOR 04/19/2014 1:28 PM BOX CLOSING MACHINE OPERATOR Narrative [facility] - 04/20/2014 7:18 AM BOX CLOSING MACHINE OPERATOR Performed at: ??01 - [address] ??[id number] Scoreboard Operator: Car Santoyo PhD, Phone: ??[phone] Eldon Koehler MD CHEMISTRY ORDERABLES Performing Organization Address [facility] de Phone Number [facility] * COMPREHENSIVE METABOLIC PANEL (04/19/2014 8:51 AM BOX CLOSING MACHINE OPERATOR) COMMENT Comment [facility] Comment: A hand-written panel/profile was received from your office. In accordance with the [facility] Ambiguous Test Code Policy dated November 2002, we have completed your order by using the closest currently or formerly recognized AMA panel. ??We have assigned Comprehensive Metabolic Panel (14), Test Code #686214 to this request. ??If this is not the testing you wished to receive on this specimen, please contact the [facility] Client Inquiry/Technical Services Department to clarify the test order. ??We appreciate your business. 04/19/2014 8:51 AM BOX CLOSING MACHINE OPERATOR 04/19/2014 1:28 PM BOX CLOSING MACHINE OPERATOR Narrative [facility] - 04/20/2014 7:18 AM BOX CLOSING MACHINE OPERATOR Performed at: ??01 - [address] ??[id number] Scoreboard Operator: Car Santoyo PhD, Phone: ??[phone] Eldon Koehler MD CHEMISTRY ORDERABLES [facility] * CBC WITH DIFFERENTIAL (04/19/2014 8:51 AM BOX CLOSING MACHINE OPERATOR) WBC 9.9 3.4 - 10.8 x10E3/uL [facility] RBC 4.68 3.77 - 5.28 x10E6/uL [facility] HEMOGLOBIN 13.3 11.1 - 15.9 g/dL [facility] HEMATOCRIT 40.6 34.0 - 46.6 % [facility] MCV 87 79 - 97 fL [facility] MCH 28.4 26.6 - 33.0 pg [facility] MCHC 32.8 31.5 - 35.7 g/dL [facility] RDW 14.8 12.3 - 15.4 % [facility] PLATELETS 321 150 - 379 x10E3/uL [facility] NEUTROPHIL 70 % [facility] LYMPHOCYTES 19 % [facility] MONOCYTE 7 % [facility] EOSINOPHILS 3 % [facility] BASOPHILS 1 % [facility] NEUTROPHIL ABSOLUTE 7.0 1.4 - 7.0 x10E3/uL [facility] LYMPHOCYTE ABSOLUTE 1.9 0.7 - 3.1 x10E3/uL [facility] MONOCYTE ABSOLUTE 0.7 0.1 - 0.9 x10E3/uL [facility] EOSINOPHIL ABSOLUTE 0.3 0.0 - 0.4 x10E3/uL [facility] BASOPHILS ABSOLUTE 0.1 0.0 - 0.2 x10E3/uL [facility] IMMATURE GRANULOCYTES 0 % [facility] IMMATURE GRANULOCYTES ABSOLUTE 0.0 0.0 - 0.1 x10E3/uL [facility] Comment: A hand-written panel/profile was received from your office. In accordance with the [facility] Ambiguous Test Code Policy dated November 2002, we have assigned CBC with Differential/Platelet, Test Code #[id number] to this request. If this is not the testing you wished to receive on this specimen, please contact the [facility] Client Inquiry/ Technical Services Department to clarify the test order. We appreciate your business. 04/19/2014 8:51 AM BOX CLOSING MACHINE OPERATOR 04/19/2014 1:28 PM BOX CLOSING MACHINE OPERATOR Narrative [facility] - 04/20/2014 7:18 AM BOX CLOSING MACHINE OPERATOR Performed at: ??01 - [facility] ??[id number] Scoreboard Operator: Car Santoyo PhD, Phone: ??[phone] Eldon Koehler MD HEMATOLOGY ORDERABLE S [facility] documented in this encounter Visit Diagnoses Not on filedocumented in this encounter Care Teams Chain Puller Relationship Specialty Start Date End Date Eldon Koehler MD PCP - General 10/06/07 documented as of this encounter
--- OUTSIDE RECORDS SUMMARY | 2024-05-22 17:03 | XMS_ITS | Encounter Summary ---
Author Organization [facility] Address [address] [place] [address] Care Team Providers Care Eligibility Analyst Name Role Phone Eldon Koehler MD Primary Care Provider [phone] Reason for Referral * Outpatient Services (Routine) - Closed Specialty Diagnoses / Procedures Referred By Carmen villalobos Referred To Contact Diagnoses Other screening mammogram Procedures MAMMO DIGITAL SCREEN BILAT Eldon Koehler MD [address] [place] [address] Referral ID Status Reason Start Date Expiration Date V isits Requested Visits Authorized [id number] Closed [facility] CTS 10/25/2014 11/25/2015 1 1 Reason for Visit * Reason Comments Surgical Clearance rt knee [facility] in [place] Encounter Details Date Type Department Care Team (Late st Contact Info) Description 10/25/2014 11:30 AM CDT Office Visit [facility] Internal Medicine [address] [address] Eldon Koehler MD [address] [place] [address] [address] [place] [address] Restless leg syndrome (Primary Dx); OSTEOARTHROS NOS-UNSPEC; Abnormal glucose; HYPOTHYROIDISM NOS; Fibromyalgia; Hyperlipemia; Other screening mammogram Social History Tobacco Use [...] Reading Time Taken Comments Blood Pressure 120/80 10/25/2014 11:41 AM CDT lt arm 120/80 rt arm 134/80 Pulse - - Temperature - - Respiratory Rate - - Oxygen Saturation - - Inhaled Oxygen Concentration - - Weight 140.6 kg (310 lb) 10/25/2014 11: 41 AM CDT Height 167.6 cm (5' 6 ) 10/25/2014 11:4 1 AM CDT Body Mass Index 50.04 10/25/2014 11:41 AM CDT documented in this encounter Progress Notes * Eldon Koehler MD - 10/25/2014 12:05 PM CDT Winifred Fredy Rodriguez, a 64 y.o. female. For tkr x 2 No cp No dyspnea Can climb 2 flights stairs Back issues ongoing Wt up, poor diet rls worse--does better on 2mg med depn ok, stress with daughter about to have baby Pain med reviewed Lab reviewed, inc glucose poor diet Recent lab reviewed Med reviwed Patient Active [...] 120/80, height 5' 6 (1.676 m), weight 310 [...] neck Mood stable Encounter Diagnoses Name Primary? Restless leg syndrome Yes ??? OSTEOARTHROS NOS-UNSPEC ??? Abnormal glucose ??? HYPOTHYROIDISM NOS ??? Fibromyalgia ??? Hyperlipemia ??? Other screening mammogram The nature of cardiac risk has been [...] advised Gluc issues reviewed, diet compliance reviewed Health Maintenance Topic Date Due ??? BREAST CANCER SCREENING 11/05/2014 ??? INFLUENZA VACCINE 11/09/2014 ??? CERVICAL CANCER SCREENING 10/19/2015 ??? COLORECTAL SCREENING 12/29/2019 Due colonoscopy, discussed, fhx colon ca Ok tkr Discussed importance lower gluc periop to help wound healing dec risk infection etc . PLAN: Orders Placed This Encounter ??? MAMMO DIGITAL SCREEN BILAT: Routine annual mammogram, should not be ordered if patient had mastectomy (order unilateral by side) ??? CBC WITH DIFFERENTIAL ??? COMPREHENSIVE METABOLIC PANEL ??? HEMOGLOBIN A1C ??? LIPID PANEL ??? TSH ??? EKG 12-LEAD ??? rOPINIRole (REQUIP) 2 mg Tablet ??? HYDROcodone-acetaminophen (NORCO) 5-325 mg tablet documented in this encounter Procedure Notes * Eldon Koehler MD - 10/25/2014 12:55 PM CDTAssociated Order(s): EKG 12-LEAD Procedure(s): [place] ECG ROUTINE ECG W/LEAST 12 LDS W/I&R Pre-Procedure Diagnose(s): Hyperlipemia EKG SR no ischemic changes documented in this encounter Plan of Treatment Upcoming Encounters Date Type Department Care Team (Late st Contact Info) Description 07/27/2024 9:40 AM CDT Office Visit [facility] Primary Care [address] [place] [address] Eldon Koehler MD [address] [place] [address] [place] [address] [place] [address] Scheduled Orders Name Type Priority Associated Diagnoses Orde r Schedule CBC WITH DIFFERENTIAL Lab Routine Restless leg syndrome 1 Occurrences starting 10/25/2014 until 10/25/2015 COMPREHENSIVE METABOLIC PANEL Lab Routine Hyperlipemia 1 Occurrences starting 10/25/2014 until 10/25/2015 LIPID PANEL Lab Routine Abnormal glucose 1 Occurrences starting 10/25/2014 until 10/25/2015 TSH Lab Routine Abnormal glucose HYPOTHYROIDISM NOS 1 Occurrences starting 10/25/2014 until 10/25/2015 documented as of this encounter Procedures Procedure Name Priority Date/Time Associated Diagnosis Comments [place] ECG ROUTINE ECG W/LEAST 12 LDS W/I&R Routine 10/25/2014 12:56 PM CDT Hyperlipemia documented in this encounter Results * MAMMO DIGITAL SCREEN BILAT (11/08/2014) Anatomical Region Laterality Modality Breast Bilateral Other Eldon Koehler MD MAMMO ORDERABLES * [place] ECG ROUTINE ECG W/LEAST 12 LDS W/I&R (10/25/2014 12:56 PM CDT) Narrative [facility] - 10/25/2014 12:56 PM CDT Eldon Koehler MD ? 10/25/2014 12:56 PM EKG SR no ischemic changes Eldon Koehler MD ECG ORDERABLES [facility] documented in this encounter Visit Diagnoses Diagnosis Restless leg syndrome- Primary Restless legs syndrome (RLS) OSTEOARTHROS NOS-UNSPEC Osteoarthrosis, unspecified whether generalized or localized, unspecified site Abnormal glucose Other abnormal glucose HYPOTHYROIDISM NOS Unspecified hypothyroidism Fibromyalgia Mylagia and myositis, unspecified Hyperlipemia Other and unspecified hyperlipidemia Other screening mammogram documented in this encounter Care Teams Eligibility Analyst Relationship Specialty Start Date End Date Eldon Koehler MD PCP - General 10/06/07 documented as of this encounter
--- OUTSIDE RECORDS SUMMARY | 2024-05-22 17:04 | XMS_ITS | Encounter Summary ---
Author Organization [facility] Address [address] [place] [address] Care Team Providers Care Glassine Machine Tender Name Role Phone Eldon Koehler MD Primary Care Provider [phone] Reason for Visit * Reason Onset Date Comments Medication Refill 11/08/2010 Encounter Details Date Type Department Care Team (Late st Contact Info) Description 11/08/2010 Refill [facility] Internal Medicine [address] [address] Eldon Koehler MD [address] [place] [address] [address] [place] [address] Social History Tobacco Use Types [...] [facility] Primary Care [address] [place] [address] Eldon Koehler MD [address] [place] [address] [address] [place] [address] documented as of this encounter Visit Diagnoses Not on filedocumented in this encounter Care Teams Glassine Machine Tender Relationship Specialty Start Date End Date Eldon Koehler MD PCP - General 10/06/07 documented as of this encounter
--- OUTSIDE RECORDS SUMMARY | 2024-05-22 17:04 | XMS_ITS | Encounter Summary ---
Author Organization [facility] Address [address] [place] [address] Care Team Providers Care Fourdrinier Machine Tender Name Role Phone Eldon Koehler MD Primary Care Provider [phone] Encounter Details Date Type Department Care Team (Late st Contact Info) Description 09/18/2010 Orders Only [facility] Internal Medicine [address] [address] Rad Berger, Social History Tobacco Use Types Packs/Day Years [...] Office Visit [facility] Primary Care [address] [place] [address] Eldon Koehler MD [address] [place] [address] [address] [place] [address] documented as of this encounter Procedures Procedure Name Priority Date/Time Associated Diagnosis Comments PATHOLOGY REPORT Routine 09/11/2010 XR CHEST PA AND LATERAL 2 VW Routine 09/03/2010 documented in this encounter Results * PATHOLOGY REPORT (09/11/2010) Rad Berger DO PATHOLOGY/CYTOLOGY O RDERABLES [facility] CLIA# [id number] [address] [place] [place] [address] * XR CHEST PA AND LATERAL (09/03/2010) Anatomical Region Laterality Modality Chest Other Rad Ab DO DIAGNOSTIC IMAGING O RDERABLES documented in this encounter Visit Diagnoses Not on filedocumented in this encounter Care Teams Fourdrinier Machine Tender Relationship Specialty Start Date End Date Eldon Koehler MD PCP - General 10/06/07 documented as of this encounter
--- OUTSIDE RECORDS SUMMARY | 2024-05-22 17:04 | XMS_ITS | Encounter Summary ---
Author Organization [facility] Address [address] [place] [address] Care Team Providers Care Tank Storage Supervisor Name Role Phone Eldon Koehler MD Primary Care Provider [phone] Reason for Visit * Reason Comments Insect Bite Under right ear, swe lling,painful, moving down right shoulder and up neck into head Fatigue Encounter Details Date Type Department Care Team (Late st Contact Info) Description 11/05/2011 11:30 AM CDT Office Visit [facility] Internal Medicine [address] [address] Eldon Koehler MD [address] [place] [address] Cellulitis; Insect bite Social History Tobacco Use Types Packs/Day Years [...] Sign Reading Time Taken Comments Blood Pressure 128/90 11/05/2011 11:34 AM CDT Pulse - - Temperature 36.8 ??C (98.2 ??F) 11/05/2011 11:34 AM C DT Respiratory Rate - - Oxygen Saturation - - Inhaled Oxygen Concentration - - Weight 129.3 kg (285 lb) 11/05/2011 11:34 AM CDT Height 167.6 cm (5' 6 ) 11/05/2011 11:34 AM CDT Body Mass Index 46 11/05/2011 11:34 AM CDT documented in this encounter Progress Notes * Eldon Koehler MD - 11/05/2011 1:23 PM CDT Bite last 24 hrs behind right ear swelling in to face with neck pain No fever Unclear what bit her Up date tdap The patient appears alert, well appearing, and in no distress.- ENT exam normal, no neck nodes mildright facial swelling bite savanna behind ear tender Chest:clear to auscultation, no wheezes, rales orrhonchi, symmetric air entry. Heart sounds are normal. Abdomen soft, nontender, no masses or organomegaly. ASSESSMENT: Encounter Diagnoses Name Primary? Cellulitis ??? Insect bite Risk of side effects of antibiotics reviewed, call if diarrhea rash, facial swelling or other. Out of sun on med advised Call or ER if skin ulcerates or other PLAN: Orders Placed This Encounter ??? methylPREDNISolone (MEDROL DOSPACK) 4 mg Oral DsPk ??? doxycycline hyclate (VIBRAMYCIN) 100 mg Oral tablet documented in this encounter Plan of Treatment Upcoming Encounters Date Type Department Care Team (Late st Contact Info) Description 07/27/2024 9:40 AM CDT Office Visit [facility] Primary Care [address] [place] [address] Eldon Koehler MD [address] [place] [address] [address] [place] [address] documented as of this encounter Procedures Procedure Name Priority Date/Time Associated Diagnosis Comments CBC WITH DIFFERENTIAL Routine 11/25/2011 8:09 AM CDT TSH Routine 11/25/2011 8:09 AM CDT HEMOGLOBIN A1C Routine 11/25/2011 8:09 AM CDT CK Routine 11/25/2011 8:09 AM CDT LIPID PANEL Routine 11/25/2011 8:09 AM CDT COMPREHENSIVE METABOLIC PANEL Routine 11/25/2011 8:09 AM CDT documented in this encounter Results * TSH (11/25/2011 8:09 AM CDT) Pathologist [facility] TSH 2.35 0.40 - 4.50 mIU/L [facility] [employer] [facility] Comment: REPORT COMMENT: FASTING Test Performed at: [employer] [facility] [address] [place] ??[address] MARY ANN JACOBO DO,MPH 11/25/2011 8:09 AM CDT Eldon Koehler MD CHEMISTRY ORDERABLES Performing Organization Address City/State/RUST Co de Phone Number INTERFACE SYSTEM Refer to clinic/hospital department [facility] [address] [place] [address] * (ABNORMAL) HEMOGLOBIN A1C (11/25/2011 8:09 AM CDT) Pathologist [facility] HEMOGLOBIN A1C 6.2(H) <5.7 % of total Hgb [facility] Comment: ?Higher risk of diabetes ? <5.7 ? Decreased risk of diabetes ? 5.7-6.0 ?Increased risk of diabetes ? 6.1-6.4 ?Higher risk of diabetes ? > or = 6.5 Consistent with diabetes ?Standards of Medical Care in Diabetes-2010. ?Diabetes Care, 33(Supp 1): S1-S61,2010. REPORT COMMENT: FASTING Test Performed at: [employer] [address] [place] ??[address] MARY ANN JACOBO DO,MPH 11/25/2011 8:09 AM CDT Eldon Koehler MD CHEMISTRY ORDERABLES Performing Organization Address City/[facility] Phone Number INTERFACE SYSTEM Refer to clinic/hospital department [facility] [address] [place] [address] * CK (11/25/2011 8:09 AM CDT) Pathologist [facility] CK 47 29 - 143 U/L [facility] Comment: REPORT COMMENT: FASTING Test Performed at: [facility] [address] [place], [place] ??[address] MARY ANN JACOBO DO 11/25/2011 8:09 AM CDT Eldon Koehler MD CHEMISTRY ORDERABLES Performing Organization Address [facility] Phone Number INTERFACE SYSTEM Refer to clinic/hospital department [facility] [address] [place] [address] * (ABNORMAL) COMPREHENSIVE METABOLIC PANEL (11/25/2011 8:09 AM CDT) Pathologist [facility] GLUCOSE 104(H) 65 - 99 mg/dL [facility] Comment:Fasting reference in terval BUN 12 7 - 25 mg/dL [facility] CREATININE 0.75 0.50 - 1.05 mg/dL [facility] [employer] [facility] Comment: For patients >49 years of age, the reference limit for Creatinine is approximately 13% higher for people identified as -Dominican. GFR 87 > OR = 60 mL/min/1 .73m2 [facility] GFR, 101 > OR = 60 mL/min/1 .73m2 [employer] . [facility] BUN/CREAT RATIO NOT APPLICABLE 6 - 22 (calc) [facility] SODIUM 140 135 - 146 mmol/L [employer] . [facility] POTASSIUM 4.4 3.5 - 5.3 mmol/L [facility] . [facility] CHLORIDE 105 98 - 110 mmol/L [employer] [facility] CO2 28 21 - 33 mmol/L [facility] CALCIUM 9.0 8.6 - 10.4 mg/dL [facility] TOTAL PROTEIN 6.4 6.2 - 8.3 g/dL [facility]. [facility] ALBUMIN 4.0 3.6 - 5.1 g/dL [facility] . [facility] GLOBULIN 2.4 2.2 - 3.9 g/dL (calc) [facility] ALBUMIN/GLOBULIN RATIO 1.7 1.0 - 2.1 (calc) [facility]ST[facility] . [facility] BILIRUBIN TOTAL 0.7 0.2 - 1.2 mg/dL [facility] ALKALINE PHOSPHATASE 135(H) 33 - 130 U/L [facility] AST 16 10 - 35 U/L [facility] ALT 20 6 - 40 U/L [facility] Comment: Test Performed at: [facility] [address] [place], [place] ??[address] MARY ANN JACOBO DO 11/25/2011 8:09 AM CDT Eldon Koehler MD CHEMISTRY ORDERABLES Performing Organization Address City/State/RUST Co de Phone Number INTERFACE SYSTEM Refer to clinic/hospital department [facility] [address] [place] [address] * LIPID PANEL (11/25/2011 8:09 AM CDT) CHOLESTEROL 176 125 - 200 mg/dL [facility] Comment: Test Performed at: [facility] [address] [place], [place] ??[phone] MARY ANN JACOBO DO HDL 48 > OR = 46 mg/dL [facility] TRIGLYCERIDE 126 <150 mg/dL [facility] LDL CALCULATED 103 <130 mg/dL (calc) [facility] Comment: Desirable range <100 mg/dL for patients with CHD or diabetes and <70 mg/dL for diabetic patients with known heart disease. CHOL/HDL RATIO 3.7 < OR = 5.0 (calc) [facility] DIAGNOSTICS [facility] RESULT 128 mg/dL (calc) [employer] [facility] Comment: Component Name: ??NON-HDL CHOLESTEROL Target for non-HDL cholesterol is 30 mg/dL higher than LDL cholesterol target. 11/25/2011 8:09 AM CDT Eldon Koehler MD CHEMISTRY ORDERABLES INTERFACE SYSTEM Refer to clinic/hospital department [facility] [address] [place] [address] * (ABNORMAL) CBC WITH DIFFERENTIAL (11/25/2011 8:09 AM CDT) WBC 8.3 3.8 - 10.8 Thousand/ uL [facility] RBC 4.37 3.80 - 5.10 Million/u L [facility] HEMOGLOBIN 12.8 11.7 - 15.5 g/dL [facility] HEMATOCRIT 38.1 35.0 - 45.0 % [facility] MCV 87.2 80.0 - 100.0 fL [facility] MCH 29.4 27.0 - 33.0 pg [facility] MCHC 33.7 32.0 - 36.0 g/dL [facility] RDW 15.4(H) 11.0 - 15.0 % [facility] PLATELETS 248 140 - 400 Thousand/ uL [facility]. [facility] NEUTROPHIL ABSOLUTE 5,735 1,500 - 7,800 cells/uL [facility]. [facility] LYMPHOCYTE ABSOLUTE 1,627 850 - 3,900 cells/uL [facility]. [facility] MONOCYTE ABSOLUTE 581 200 - 950 cells/uL [facility]. [facility] EOSINOPHIL ABSOLUTE 274 15 - 500 cells/uL [facility]. [facility] BASOPHILS ABSOLUTE 83 0 - 200 cells/uL [facility] NEUTROPHIL 69.1 % [facility] LYMPHOCYTES 19.6 % [facility] MONOCYTE 7.0 % [facility] EOSINOPHILS 3.3 % [facility] BASOPHILS 1.0 % [facility] Comment: REPORT COMMENT: FASTING Test Performed at: [facility] [address] [place], [place] ??[phone] MARY ANN JACOBO DO 11/25/2011 8:09 AM CDT Eldon Koehler MD HEMATOLOGY ORDERABLE S INTERFACE SYSTEM Refer to clinic/hospital department [facility] [address] [place] [address] documented in this encounter Visit Diagnoses Diagnosis Cellulitis Cellulitis and abscess of unspecified site Insect bite Other, multiple, and unspecified sites, insect bite, nonvenomous, without mention of infection documented in this encounter Care Teams Tank Storage Supervisor Relationship Specialty Start Date End Date Eldon Koehler MD PCP - General 10/06/07 documented as of this encounter
--- OUTSIDE RECORDS SUMMARY | 2024-05-22 17:04 | XMS_ITS | Encounter Summary ---
Author Organization [facility] Address [address] [place] [address] Care Team Providers Care Bus Driver Name Role Phone Eldon Koehler MD Primary Care Provider [phone] Reason for Visit * Reason Onset Date Comments Other 06/15/2010 Encounter Details Date Type Department Care Team (Late st Contact Info) Description 06/15/2010 Telephone [facility] Internal Medicine [address] [address] Eldon Koehler MD [address] [place] [address] Other Social History Tobacco Use Types [...] Telephone Encounter - Eldon Koehler MD - 06/15/2010 3:03 PM CST ok AL SERVICES DIRECTOR * Telephone Encounter - Sofi Raman - 06/15/2010 2:52 PM CST Patient called our office today requesting her notes from todays office visit to be faxed to emergency management specialist - Dr. Chi Rivera f-- [phone] AL SERVICES DIRECTOR documented in this encounter Plan of Treatment Upcoming Encounters Date Type Department Care Team (Late st Contact Info) Description 07/27/2024 9:40 AM CDT Office Visit [facility] Primary Care [address] [place] [address] Eldon Koehler MD [address] [place] [address] [address] [place] [address] documented as of this encounter Visit Diagnoses Not on filedocumented in this encounter Care Teams Bus Driver Relationship Specialty Start Date End Date Eldon Koehler MD PCP - General 10/06/07 documented as of this encounter
--- OUTSIDE RECORDS SUMMARY | 2024-05-22 17:04 | XMS_ITS | Encounter Summary ---
Author Organization [facility] Address [address] [place] [address] Care Team Providers Care Delinquent Tax Collector Assistant Name Role Phone Eldon Koehler MD Primary Care Provider Encounter Details Date Type Department Care Team (Late st Contact Info) Description 12/11/2012 Orders Only [facility] Internal Medicine [address] [address] Eldon Koehler MD [address] [place] [address] [address] [place] [address] Unspecified asthma; Hyperlipidemia Social History Tobacco Use Types Packs/Day [...] [facility] Primary Care [address] [place] [address] Eldon Koehler MD [address] [place] [address] [address] [place] [address] documented as of this encounter Procedures Procedure Name Priority Date/Time Associated Diagnosis Comments CBC WITH DIFFERENTIAL Routine 12/10/2012 8:06 AM CDT Unspecified asthma CK Routine 12/10/2012 8:06 AM CDT Hyperlipidemia LIPID PANEL Routine 12/10/2012 8:06 AM CDT Hyperlipidemia COMPREHENSIVE METABOLIC PANEL Routine 12/10/2012 8:06 AM CDT Hyperlipidemia documented in this encounter Results * CK (12/10/2012 8:06 AM CDT) CK 60 24 - 173 U/L EXTERNAL LAB Blood specimen (specimen) 12/10/2012 8:06 AM CDT Eldon Koehler MD CHEMISTRY ORDERABLES Performing Organization Address City/[facility]/ZIP Co de Phone Number EXTERNAL LAB * LIPID PANEL (12/10/2012 8:06 AM CDT) ABSTRACTED CHOLESTEROL EXTERNAL LAB ABSTRACTED TRIGLYCERIDE EXTERNAL LAB ABSTRACTED HDL EXTERNAL LAB ABSTRACTED LDL CALCULATED EXTERNAL LAB CHOLESTEROL 171 mg/dL EXTERNAL LAB CHOLESTEROL EXTERNAL LAB TRIGLYCERIDE 117 mg/dL EXTERNAL LAB TRIGLYCERIDE EXTERNAL LAB HDL 49 mg/dL EXTERNAL LAB HDL EXTERNAL LAB LDL CALCULATED 99 mg/dL EXTERNAL LAB LDL CALCULATED EXTERNAL LAB CALCULATED LDL CHOLESTEROL mg/dL EXTERNAL LAB CALCULATED TOTAL CHOLESTEROL TO HDL RATIO EXTERNAL LAB CHOL/HDL RATIO EXTERNAL LAB VLDL-3 (REMNANT LIPO) mg/dL EXTERNAL LAB LIPID PANEL COMMENT EXTERNAL LAB RISK FACTOR EXTERNAL LAB RESULT COMMENT, CHEMISTRY EXTERNAL LAB Blood specimen (specimen) 12/10/2012 8:06 AM CDT Eldon Koehler MD CHEMISTRY ORDERABLES EXTERNAL LAB * (ABNORMAL) COMPREHENSIVE METABOLIC PANEL (12/10/2012 8:06 AM CDT) SODIUM 141 135 - 145 mmol/L EXTERNAL LAB SODIUM EXTERNAL LAB POTASSIUM 4.7 3.5 - 4.9 mmol/L EXTERNAL LAB POTASSIUM EXTERNAL LAB CHLORIDE 96 - 108 mmol/L EXTERNAL LAB CHLORIDE EXTERNAL LAB CO2 22 - 30 mmol/L EXTERNAL LAB CO2 EXTERNAL LAB CALCIUM 9.2 8.6 - 10.2 mg/dL EXTERNAL LAB CALCIUM EXTERNAL LAB BUN 6 - 20 mg/dL EXTERNAL LAB BUN EXTERNAL LAB CREATININE 0.81 0.51 - 0.95 mg/dL EXTERNAL LAB CREATININE EXTERNAL LAB GLUCOSE 105(A) 65 - 99 mg/dL EXTERNAL LAB GLUCOSE EXTERNAL LAB TOTAL PROTEIN 6.3 - 8.6 g/dL EXTERNAL LAB TOTAL PROTEIN EXTERNAL LAB ALBUMIN 3.4 - 4.8 g/dL EXTERNAL LAB ALBUMIN EXTERNAL LAB BILIRUBIN TOTAL mg/dL EXTERNAL LAB BILIRUBIN TOTAL EXTERNAL LAB ALKALINE PHOSPHATASE 35 - 104 U/L EXTERNAL LAB ALKALINE PHOSPHATASE EXTERNAL LAB AST 23 U/L EXTERNAL LAB AST EXTERNAL LAB ALT 32(A) 0 - 31 U/L EXTERNAL LAB ALT EXTERNAL LAB GFR, 60 mL/min/1.7 3 sq meter EXTERNAL LAB GFR, EXTERNAL LAB GFR 79 60 mL/min/1.7 3 sq meter EXTERNAL LAB GFR EXTERNAL LAB ANION GAP EXTERNAL LAB OSMOLALITY, CALCULATED EXTERNAL LAB BUN/CREAT RATIO EXTERNAL LAB ALBUMIN/GLOBULIN RATIO EXTERNAL LAB GLOBULIN (CALC) EXTERNAL LAB GLOBULIN EXTERNAL LAB RESULT COMMENT, CHEMISTRY EXTERNAL LAB Blood specimen (specimen) 12/10/2012 8:06 AM CDT Eldon Koehler MD CHEMISTRY ORDERABLES EXTERNAL LAB * CBC WITH DIFFERENTIAL (12/10/2012 8:06 AM CDT) WBC 9.4 4.0 - 9.8 K/uL EXTERNAL LAB WBC EXTERNAL LAB MANUAL WBC K/uL EXTERNAL LAB WBC, CORRECTED K/uL EXTERNAL LAB NRBC /100 WBC EXTERNAL LAB NRBCS 0 % EXTERNAL LAB NRBCS EXTERNAL LAB RBC 3.90 - 4.90 M/uL EXTERNAL LAB RBC EXTERNAL LAB HEMOGLOBIN 12.7 11.8 - 14.8 g/dL EXTERNAL LAB HEMOGLOBIN EXTERNAL LAB HEMATOCRIT 35.5 - 44.0 % EXTERNAL LAB HEMATOCRIT EXTERNAL LAB MCV 82.2 - 96.4 fL EXTERNAL LAB MCV EXTERNAL LAB MCH 27.2 - 32.6 pg EXTERNAL LAB MCH EXTERNAL LAB MCHC 31.5 - 35.5 g/dL EXTERNAL LAB MCHC EXTERNAL LAB PLATELETS 345 140 - 350 K/uL EXTERNAL LAB PLATELETS EXTERNAL LAB MPV 9.3 - 12.4 fL EXTERNAL LAB MPV EXTERNAL LAB PLATELET, MANUAL EXTERNAL LAB PLT COMMENT EXTERNAL LAB RDW 11.5 - 14.5 % EXTERNAL LAB RDW EXTERNAL LAB RDW-STDEV fL EXTERNAL LAB RDW-STDEV EXTERNAL LAB RDW [...] BANDS RELATIVE % EXTERNAL LAB IMMATURE GRANULOCYTES 2 % EXTERNAL LAB LYMPHOCYTES EXTERNAL LAB LYMPHOCYTES RELATIVE % EXTERNAL LA B REACTIVE LYMPHOCYTES EXTERNAL LA B ATYPICAL LYMPHOCYTE % EXTERNAL LAB ATYPICAL LYMPHOCYTES RELATIVE 0 % EXTERNAL LAB MONOCYTE EXTERNAL LAB MONOCYTES RELATIVE % EXTERNAL LAB EOSINOPHILS EXTERNAL LAB EOSINOPHILS RELATIVE % EXTERNAL LA B BASOPHILS EXTERNAL LAB BASOPHILS RELATIVE % EXTERNAL LAB METAMYELOCYTE % EXTERNAL LAB METAMYELOCYTES RELATIVE % EXTERNAL LAB MYELOCYTES % EXTERNAL LAB [...] 0.00 K/uL EXTERNAL LAB IMMATURE GRANULOCYTES ABSOLUTE 8.00 K/uL EXTERNAL LAB RBC MORPHOLOGY EXTERNAL LAB [...] TOTAL CELLS COUNTED IN DIFF EXTERNAL LAB Blood specimen (specimen) 12/10/2012 8:06 AM CDT Eldon Koehler MD HEMATOLOGY ORDERABLE S EXTERNAL LAB documented in this encounter Visit Diagnoses Diagnosis Unspecified asthma(493.90) Unspecified asthma Hyperlipidemia Other and unspecified hyperlipidemia documented in this encounter Care Teams Delinquent Tax Collector Assistant Relationship Specialty Start Date End Date Eldon Koehler MD PCP - General 10/06/07 documented as of this encounter
--- OUTSIDE RECORDS SUMMARY | 2024-05-22 17:04 | XMS_ITS | Encounter Summary ---
Author Organization [facility] Address [address] [place] [address] Care Team Providers Care Sheet Metal Former Name Role Phone Eldon Koehler MD Primary Care Provider [phone] Reason for Visit * Reason Comments Medication Refill Encounter Details Date Type Department Care Team (Late st Contact Info) Description 07/14/2012 Refill [facility] Internal Medicine [address] [address] Eldon Koehler MD [address] [place] [address] [address] [place] [address] Social History Tobacco Use Types [...] Visit [facility] Primary Care [address] [place] [address] Eldon Koehler MD [address] [place] [address] [address] [place] [address] documented as of this encounter Visit Diagnoses Not on filedocumented in this encounter Care Teams Sheet Metal Former Relationship Specialty Start Date End Date Eldon Koehler MD PCP - General 10/06/07 documented as of this encounter
--- OUTSIDE RECORDS SUMMARY | 2024-05-22 17:04 | XMS_ITS | Encounter Summary ---
Author Organization [facility] Address [address] [place] [address] Care Team Providers Care Finding Fastener Name Role Phone Eldon Koehler MD Primary Care Provider [phone] Reason for Visit * Outpatient Services (Routine) - Closed Specialty Diagnoses / Procedures Referred By Carmen villalobos Referred To Contact Radiology Diagnoses xr Procedures XR CHEST Eldon Koehler MD [address] [place] [phone] [facility] Radiology [address] [place] [address] Referral ID Status Reason Start Date Expiration Date Visits Re quested Visits Authorized [id number] Closed 03/11/2012 03/11/2013 1 1 Encounter Details Date Type Department Care Team (Latest Contact Info) Description 03/11/2012 1:57 PM CDT - 03/11/2012 11:59 PM CDT Hospital Encounter [facility] [address] [place] [address] Eldon Koehler MD [address] [place] [address] [address] [place] [address] Discharge Disposition: Home or Self [...] Sig Dispensed Refills Start Date End Date azithromycin (ZITHROMAX) 250 mg Oral tablet Take 2 tabs the first day and 1 tab days 2-5 1 Package 1 03/11/2012 03/15/2012 benzonatate (TESSALON) 200 mg Oral capsule Take 1 Cap by mouth 3 times daily. 30 Cap 1 03/11/2012 05/01/2012 montelukast (SINGULAIR) 10 mg Oral tablet Take 1 Tab by mouth daily at bedtime. 30 Tab 3 03/11/2012 05/01/2012 DULoxetine (CYMBALTA) 30 mg Oral CpDR Take 1 Cap by mouth daily. 30 Cap 3 03/11/2012 05/01/2012 budesonide-formoterol (SYMBICORT) 160-4.5 mcg/actuation Inhalation HFAA Take 2 Puffs by inhalation 2 times daily. 6 Gram 0 03/11/2012 10/13/2013 levofloxacin (LEVAQUIN) 500 mg Oral tablet Take 1 Tab by mouth daily. 10 Tab 0 02/21/2012 05/01/2012 albuterol 90 mcg/Actuation Inhalation HFAA inhaler Take 2 Puffs by inhalation every 6 hours as needed for Shortness of Breath. 6.7 Gram 3 02/21/2012 04/19/2014 ropinirole (REQUIP) 0.5 mg Oral tablet Take 1 Tab by mouth daily. 90 Tab 3 10/02/2011 04/21/2012 atorvastatin (LIPITOR) 20 mg Oral tablet Take 1 Tab by mouth Daily LATE. 90 Tab 3 10/02/2011 04/21/2012 celecoxib (CELEBREX) 200 mg Oral capsule Take 1 Cap by mouth 2 times daily. 180 Cap 3 10/02/2011 03/20/2012 levothyroxine (SYNTHROID) 112 mcg Oral tablet Take 1 Tab by mouth daily chemistry quality control technician. 90 Tab 3 10/02/2011 05/01/2012 ALPRAZolam (XANAX) 0.25 mg Oral tablet Take 1 Tab by mouth 2 times daily as needed for Anxiety. 10 Tab 0 06/13/2011 05/01/2012 valacyclovir (VALTREX) 1 g Oral tablet Take 1 Tab by mouth 3 times daily. 21 Tab 0 06/10/2011 05/01/2012 silver sulfADIAZINE (SILVADENE) 1 % Topical Crea Apply to affected area 2 times daily. 100 Gram 2 06/10/2011 05/01/2012 HYDROcodone-acetaminoph en (LORTAB) 5-500 mg Oral tablet Take 1 Tab by mouth every 4 hours as needed for Pain. 90 Tab 4 04/16/2011 10/02/2012 gabapentin (NEURONTIN) 300 mg Oral capsule Take 1 Cap by mouth 2 times daily. 60 Cap 3 11/08/2010 05/01/2012 Omeprazole 20 mg Oral TbEC Take 20 mg by mouth daily. 30 Tab 4 09/28/2008 05/01/2012 documented as of this encounter Plan of Treatment Upcoming Encounters Date Type Department Care Team (Late st Contact Info) Description 07/27/2024 9:40 AM CDT Office Visit [facility] Care [id number] [place] [address] Eldon Koehler MD [address] [place] [address] documented as of this encounter Procedures Procedure Name Priority Date/Time Associated Diagnosis Comments XR CHEST PA AND LATERAL 2 VW Routine 03/11/2012 2:05 PM CDT Acute bronchitis documented in this encounter Results * XR CHEST PA AND LATERAL (03/11/2012 2:05 PM CDT) Anatomical Region Laterality Modality Chest Computed Radiogr aphy 03/11/2012 2:02 PM CDT Impressions 03/13/2012 8:20 AM CDT IMPRESSION: No active pulmonary disease. ? Narrative 03/13/2012 8:20 AM CDT CHEST PA AND LATERAL, 03/11/2012 CLINICAL HISTORY: Cough. FINDINGS: There is no pulmonary infiltrate, pleural effusion, pneumothorax or nodule. The cardiac and mediastinal silhouettes, aroldo and bony thorax are within normal limits. Procedure Note Kelly Garcia MD - 03/13/2012 CHEST PA AND LATERAL, 03/11/2012 CLINICAL HISTORY: Cough. FINDINGS: There is no pulmonary infiltrate, pleural effusion, pneumothorax or nodule. The cardiac and mediastinal silhouettes, aroldo and bony thorax are within normal limits. IMPRESSION IMPRESSION: No active pulmonary disease. Eldon Koehler MD DIAGNOSTIC IMAGING O RDERABLES documented in this encounter Visit Diagnoses Diagnosis Acute bronchitis documented in this encounter Care Teams Finding Fastener Relationship Specialty Start Date End Date Eldon Koehler MD PCP - General 10/06/07 documented as of this encounter
--- OUTSIDE RECORDS SUMMARY | 2024-05-22 17:04 | XMS_ITS | Encounter Summary ---
Author Organization [facility] Address [address] [place] [address] Care Team Providers Care Coverstitch Binder Name Role Phone Eldon Koehler MD Primary Care Provider [phone] Reason for Visit * Reason Comments Cholesterol Problem Encounter Details Date Type Department Care Team (Late st Contact Info) Description 09/04/2012 2:30 PM CDT Office Visit [facility] Internal Medicine [address] [address] Eldon Koehler MD [address] [place] [address] Impaired fasting glucose (Primary Dx); Unspecified asthma; HYPOTHYROIDISM NOS; DEPRESSIVE DISORDER NEC; Hyperlipidemia Social History Tobacco Use Types Packs/Day [...] Reading Time Taken Comments Blood Pressure 120/70 09/04/2012 2:16 PM CDT Pulse - - Temperature - - Respiratory Rate - - Oxygen Saturation - - Inhaled Oxygen Concentration - - Weight 131.1 kg (289 lb) 09/04/2012 2:16 PM CDT Height 167.6 cm (5' 6 ) 09/04/2012 2:16 PM CDT Body Mass Index 46.65 09/04/2012 2:16 PM CDT documented in this encounter Progress Notes * Eldon Koehler MD - 09/04/2012 3:58 PM CDT HISTORY OF PRESENT ILLNESS Winifred Rodriguez, a 62 y.o. female. HPI Thyroid low Inc ache Some morning stiffness Chol ok vickie meds Patient Active Problem List Diagnoses Code ??? HYPERLIPIDEMIA NEC/NOS 272.4 ??? DEPRESSIVE [...] Normal Exam for Routine Visits: \Blood pressure 120/70, height 5' 6 (1.676 m), weight 289 lb (131.09 kg). General appearance: healthy appearing, active, alert, [...] Name Primary? Impaired fasting glucose Yes ??? Unspecified asthma ??? HYPOTHYROIDISM NOS ??? DEPRESSIVE DISORDER NEC ??? Hyperlipidemia . Inc thyroid Monitor sx Sight inc alk phos reviewed, cont vit d, recheck--slight elevated x yrs Cont rls rx reviwed PLAN: Orders Placed This Encounter ??? CBC WITH DIFFERENTIAL ??? COMPREHENSIVE METABOLIC PANEL ??? LIPID PANEL ??? TSH ??? CK ??? levothyroxine (LEVOTHROID) 125 mcg Oral tablet documented in this encounter Plan of Treatment Upcoming Encounters Date Type Department Care Team (Late st Contact Info) Description 07/27/2024 9:40 AM CDT Office Visit [facility] Primary Care [address] [place] [address] Eldon Koehler MD [address] [address] documented as of this encounter Results * TSH (12/16/2012 2:53 PM CDT) TSH 4.01 0.45 - 4.50 uIU/mL EXTERNAL LAB Blood specimen (specimen) 12/16/2012 2:53 PM CDT Eldon Koehler MD CHEMISTRY ORDERABLES Performing Organization Address City/[facility]/ZIP Co de Phone Number EXTERNAL LAB * CK (12/10/2012 8:06 AM CDT) CK 60 24 - 173 U/L EXTERNAL LAB Blood specimen (specimen) 12/10/2012 8:06 AM CDT Eldon Koehler MD CHEMISTRY ORDERABLES Performing Organization Address City/[facility] Co de Phone Number EXTERNAL LAB * [...] Visit Diagnoses Diagnosis Impaired fasting glucose- Primary Unspecified asthma(493.90) Unspecified asthma HYPOTHYROIDISM NOS Unspecified hypothyroidism DEPRESSIVE DISORDER NEC Depressive disorder, not elsewhere classified Hyperlipidemia Other and unspecified hyperlipidemia documented in this encounter Care Teams Coverstitch Binder Relationship Specialty Start Date End Date Eldon Koehler MD PCP - General 10/06/07 documented as of this encounter
--- OUTSIDE RECORDS SUMMARY | 2024-05-22 17:04 | XMS_ITS | Encounter Summary ---
Author Organization [facility] Address [address] [place] [address] Care Team Providers Care Bakeshop Cleaner Name Role Phone Eldon Koehler MD Primary Care Provider Encounter Details Date Type Department Care Team (Late st Contact Info) Description 09/03/2012 Orders Only [facility] Internal Medicine [address] [address] Eldon Koehler MD [address] [place] [address] [address] [place] [address] HYPERLIPIDEMIA NEC/NOS; HYPOTHYROIDISM NOS; DEPRESSIVE DISORDER NEC; Abnormal glucose Social History Tobacco Use Types Packs/Day [...] Office Visit [facility] Primary Care [address] [place] [address] Eldon Koehler MD [address] [place] [address] [address] [place] [address] documented as of this encounter Procedures Procedure Name Priority Date/Time Associated Diagnosis Comments VITAMIN D 25 HYDROXY Routine 09/03/2012 DEPRESSIVE DISORDER NEC TSH Routine 09/03/2012 HYPOTHYROIDISM NOS HEMOGLOBIN A1C Routine 09/03/2012 Abnormal glucose LIPID PANEL Routine 09/03/2012 HYPERLIPIDEMIA NEC/NOS COMPREHENSIVE METABOLIC PANEL Routine 09/03/2012 HYPERLIPIDEMIA NEC/NOS CBC WITH DIFFERENTIAL Routine 09/02/2012 DEPRESSIVE DISORDER NEC documented in this encounter Results * (ABNORMAL) HEMOGLOBIN A1C (09/03/2012) SHELL RECORD 708 EXTERNAL LAB HEMOGLOBIN A1C 6.2 4.7 - 6.4 % EXTERNAL LAB HEMOGLOBIN A1C EXTERNAL LAB GLUCOSE, MEAN BLOOD EXTERNAL LAB Blood specimen (specimen) Eldon Koehler MD CHEMISTRY ORDERABLES Performing Organization Address [facility] Co de Phone Number EXTERNAL LAB * VITAMIN D 25 HYDROXY (09/03/2012) VITAMIN D, 25 OH, TOTAL 49.7 30.0 - 100.0 EXTERNAL LAB VITAMIN D, 25 OH, D2 EXTERNAL LAB VITAMIN D, 25 OH, D3 EXTERNAL LAB Blood specimen (specimen) Eldon Koehler MD CHEMISTRY ORDERABLES EXTERNAL LAB * (ABNORMAL) TSH (09/03/2012) TSH 6.84(A) 0.45 - 4.50 uIU/mL EXTERNAL LAB Blood specimen (specimen) Eldon Koehler MD CHEMISTRY ORDERABLES EXTERNAL LAB * LIPID PANEL (09/03/2012) ABSTRACTED CHOLESTEROL EXTERNAL LAB ABSTRACTED TRIGLYCERIDE EXTERNAL LAB ABSTRACTED HDL EXTERNAL LAB ABSTRACTED LDL CALCULATED EXTERNAL LAB CHOLESTEROL 163 100 - 199 mg/dL EXTERNAL LAB CHOLESTEROL EXTERNAL LAB TRIGLYCERIDE 120 0 - 149 mg/dL EXTERNAL LAB TRIGLYCERIDE EXTERNAL LAB HDL 45 39 mg/dL EXTERNAL LAB HDL EXTERNAL LAB LDL CALCULATED 94 0 - 99 mg/dL EXTERNAL LAB LDL CALCULATED EXTERNAL LAB CALCULATED LDL CHOLESTEROL mg/dL EXTERNAL LAB CALCULATED TOTAL CHOLESTEROL TO HDL RATIO EXTERNAL LAB CHOL/HDL RATIO EXTERNAL LAB VLDL-3 (REMNANT LIPO) mg/dL EXTERNAL LAB LIPID PANEL COMMENT EXTERNAL LAB RISK FACTOR EXTERNAL LAB RESULT COMMENT, CHEMISTRY EXTERNAL LAB Blood specimen (specimen) Eldon Koehler MD CHEMISTRY ORDERABLES Performing Organization Address [facility]/ZIP Co de Phone Number EXTERNAL LAB * (ABNORMAL) COMPREHENSIVE METABOLIC PANEL (09/03/2012) SODIUM 141 135 - 145 mmol/L EXTERNAL LAB SODIUM EXTERNAL LAB POTASSIUM 4.6 3.5 - 4.9 mmol/L EXTERNAL LAB POTASSIUM EXTERNAL LAB CHLORIDE 96 - 108 mmol/L EXTERNAL LAB CHLORIDE EXTERNAL LAB CO2 22 - 30 mmol/L EXTERNAL LAB CO2 EXTERNAL LAB CALCIUM 9.0 8.6 - 10.2 mg/dL EXTERNAL LAB CALCIUM EXTERNAL LAB BUN 6 - 20 mg/dL EXTERNAL LAB BUN EXTERNAL LAB CREATININE 0.90 0.51 - 0.95 mg/dL EXTERNAL LAB CREATININE EXTERNAL LAB GLUCOSE 107(A) 65 - 99 mg/dL EXTERNAL LAB GLUCOSE EXTERNAL LAB TOTAL PROTEIN 6.3 - 8.6 g/dL EXTERNAL LAB TOTAL PROTEIN EXTERNAL LAB ALBUMIN 3.4 - 4.8 g/dL EXTERNAL LAB ALBUMIN EXTERNAL LAB BILIRUBIN TOTAL mg/dL EXTERNAL LAB BILIRUBIN TOTAL EXTERNAL LAB ALKALINE PHOSPHATASE 173(A) 35 - 104 U/L EXTERNAL LAB ALKALINE PHOSPHATASE EXTERNAL LAB AST 16 0 - 40 U/L EXTERNAL LAB AST EXTERNAL LAB ALT 18 0 - 31 U/L EXTERNAL LAB ALT EXTERNAL LAB GFR, 60 mL/min/1.7 3 sq meter EXTERNAL LAB GFR, EXTERNAL LAB GFR 70 60 mL/min/1.7 3 sq meter EXTERNAL LAB GFR EXTERNAL LAB ANION GAP EXTERNAL LAB OSMOLALITY, CALCULATED EXTERNAL LAB BUN/CREAT RATIO EXTERNAL LAB ALBUMIN/GLOBULIN RATIO EXTERNAL LAB GLOBULIN (CALC) EXTERNAL LAB GLOBULIN EXTERNAL LAB RESULT COMMENT, CHEMISTRY EXTERNAL LAB Blood specimen (specimen) Eldon Koehler MD CHEMISTRY ORDERABLES EXTERNAL LAB * (ABNORMAL) CBC WITH DIFFERENTIAL (09/02/2012) WBC 8.4 4.0 - 9.8 K/uL EXTERNAL LAB WBC [...] g/dL EXTERNAL LAB [facility] EXTERNAL LAB PLATELETS 310 140 - 350 K/uL EXTERNAL LAB PLATELETS [...] NEUTROPHILS EXTERNAL LAB LYMPHOCYTES % EXTERNAL LAB MIXED CELLS, COUNT RELATIVE EXTERNAL LAB MONOCYTES % EXTERNAL LAB EOSINOPHILS % EXTERNAL LAB BASOPHILS % EXTERNAL LAB MANUAL DIFFERENTIAL EXTERNAL LAB ADJUSTED [...] IN DIFF EXTERNAL LAB Blood specimen (specimen) Eldon Koehler MD HEMATOLOGY ORDERABLE S EXTERNAL LAB documented in this encounter Visit Diagnoses Diagnosis HYPERLIPIDEMIA NEC/NOS Other and unspecified hyperlipidemia HYPOTHYROIDISM NOS Unspecified hypothyroidism DEPRESSIVE DISORDER NEC Depressive disorder, not elsewhere classified Abnormal glucose Other abnormal glucose documented in this encounter Care Teams Bakeshop Cleaner Relationship Specialty Start Date End Date Eldon Koehler MD PCP - General 10/06/07 documented as of this encounter
--- OUTSIDE RECORDS SUMMARY | 2024-05-22 17:04 | XMS_ITS | Encounter Summary ---
Author Organization [facility] Address [address] [place] [address] Care Team Providers Care Detail Manager Name Role Phone Eldon Koehler MD Primary Care Provider [phone] Reason for Visit * Reason Comments Cholesterol Problem Encounter Details Date Type Department Care Team (Latest Contact Info) Description 05/01/2012 2:45 PM AUDIOVISUAL AIDS TECHNICIAN Office Visit [facility] Internal Medicine [address] [address] Eldon Koehler MD [address] [place] [address] HYPERLIPIDEMIA NEC/NOS; DEPRESSIVE DISORDER NEC; OSTEOARTHROS NOS-UNSPEC; HYPOTHYROIDISM NOS; Impaired fasting glucose; Restless leg syndrome; Abnormal glucose Social History Tobacco Use Types [...] Reading Time Taken Comments Blood Pressure 130/80 05/01/2012 2:46 PM AUDIOVISUAL AIDS TECHNICIAN Pulse - - Temperature - - Respiratory Rate - - Oxygen Saturation - - Inhaled Oxygen Concentration - - Weight 132.9 kg (293 lb) 05/01/2012 2:46 PM AUDIOVISUAL AIDS TECHNICIAN Height 167.6 cm (5' 6 ) 05/01/2012 2:46 PM AUDIOVISUAL AIDS TECHNICIAN Body Mass Index 47.29 05/01/2012 2:46 PM AUDIOVISUAL AIDS TECHNICIAN documented in this encounter Progress Notes * Eldon Koehler MD - 05/01/2012 3:29 PM CST HISTORY OF PRESENT ILLNESS Winifred Rodriguez, a 61 y.o. female. HPI stess doing ok, but feels needs xanax with new baby in house Lab reviewed Stable rls reviewed, stable with med Trying to do better on diet Patient Active Problem List Diagnoses Code ??? [...] 130/80, height 5' 6 (1.676 m), weight 293 lb (132.904 kg). General appearance: healthy appearing, active, alert, [...] neck Mood stable Encounter Diagnoses Name Primary? HYPERLIPIDEMIA NEC/NOS ??? DEPRESSIVE DISORDER NEC ??? OSTEOARTHROS NOS-UNSPEC ??? HYPOTHYROIDISM NOS ??? Impaired fasting glucose ??? Restless leg syndrome ??? Abnormal glucose . Stress reviewed, Icont med The nature of cardiac risk has been [...] diet has been given to the patient. Diet reviewed Gluc issues, reviewed Cont thyroid Caution with xanax reviewed PLAN: Orders Placed This Encounter ??? CBC WITH DIFFERENTIAL ??? COMPREHENSIVE METABOLIC PANEL ??? LIPID PANEL ??? TSH ??? VITAMIN D 25 HYDROXY ??? HEMOGLOBIN A1C ??? atorvastatin (LIPITOR) 20 mg Oral tablet ??? rOPINIRole (REQUIP) 0.5 mg Oral tablet ??? DULoxetine (CYMBALTA) 30 mg Oral CpDR ??? levothyroxine (SYNTHROID) 112 mcg Oral tablet ??? ALPRAZolam (XANAX) 0.25 mg Oral tablet ??? omeprazole (PRILOSEC) 20 mg Oral TbEC OVISUAL AIDS TECHNICIAN documented in this encounter Plan of Treatment Upcoming Encounters Date Type Department Care Team (Late st Contact Info) Description 07/27/2024 9:40 AM CDT Office Visit [facility] Care [facility] [address] [place] [address] [address] [place] [address] Eldon Koehler MD [address] [facility] [address] [place] [address] documented as of this encounter Results * (ABNORMAL) HEMOGLOBIN A1C (09/03/2012) SHELL RECORD 708 EXTERNAL LAB HEMOGLOBIN A1C 6.2 4.7 - 6.4 % EXTERNAL LAB HEMOGLOBIN A1C EXTERNAL LAB GLUCOSE, MEAN BLOOD EXTERNAL LAB Blood specimen (specimen) Eldon Koehler MD CHEMISTRY ORDERABLES Performing Organization Address [facility] Co de Phone Number EXTERNAL LAB * VITAMIN D 25 HYDROXY (09/03/2012) VITAMIN D, 25 OH, TOTAL 49.7 30.0 - 100.0 EXTERNAL LAB VITAMIN D, 25 OH, D2 EXTERNAL LAB VITAMIN D, 25 OH, D3 EXTERNAL LAB Blood specimen (specimen) Eldon Keohler MD CHEMISTRY ORDERABLES EXTERNAL LAB * (ABNORMAL) TSH (09/03/2012) TSH 6.84(A) 0.45 - 4.50 uIU/mL EXTERNAL LAB Blood specimen (specimen) Eldon Koehler MD CHEMISTRY ORDERABLES Performing Organization Address City/[facility]/ZIP Co de Phone Number EXTERNAL LAB * LIPID PANEL (09/03/2012) ABSTRACTED [...] Koehler MD CHEMISTRY ORDERABLES Performing Organization Address [facility] Co de Phone Number EXTERNAL [...] Diagnosis HYPERLIPIDEMIA NEC/NOS Other and unspecified hyperlipidemia DEPRESSIVE DISORDER NEC Depressive disorder, not elsewhere classified OSTEOARTHROS NOS-UNSPEC Osteoarthrosis, unspecified whether generalized or localized, unspecified site HYPOTHYROIDISM NOS Unspecified hypothyroidism Impaired fasting glucose Restless leg syndrome Restless legs syndrome (RLS) Abnormal glucose Other abnormal glucose HYPERLIPIDEMIA NEC/NOS Other and unspecified hyperlipidemia HYPOTHYROIDISM NOS Unspecified hypothyroidism DEPRESSIVE DISORDER NEC Depressive disorder, not elsewhere classified Abnormal glucose Other abnormal glucose documented in this encounter Care Teams Detail Manager Relationship Specialty Start Date End Date Eldon Koehler MD PCP - General 10/06/07 documented as of this encounter
--- OUTSIDE RECORDS SUMMARY | 2024-05-22 17:04 | XMS_ITS | Encounter Summary ---
Author Organization [facility] Address [address] [place] [address] Care Team Providers Care High School Tutor Name Role Phone Eldon Koehler MD Primary Care Provider [phone] Reason for Visit * Reason Onset Date Comments Medication Refill 03/20/2012 Encounter Details Date Type Department Care Team (Late st Contact Info) Description 03/20/2012 Refill [facility] Internal Medicine [address] [phone] Eldon Koehler MD [address] [place] [address] [address] [place] [address] Social History Tobacco Use Types [...] Office Visit [facility] Primary Care [address] [place] [address] Eldon Koehler MD [address] [place] [address] [address] [place] [address] documented as of this encounter Visit Diagnoses Not on filedocumented in this encounter Care Teams High School Tutor Relationship Specialty Start Date End Date Eldon Koehler MD PCP - General 10/06/07 documented as of this encounter
--- OUTSIDE RECORDS SUMMARY | 2024-05-22 17:04 | XMS_ITS | Encounter Summary ---
Author Organization [facility] Address [address] [place] [address] Care Team Providers Care Alteration Inspector Name Role Phone Eldon Koehler MD Primary Care Provider [phone] Reason for Visit * Reason Onset Date Comments Medication Refill 06/07/2011 Encounter Details Date Type Department Care Team (Late st Contact Info) Description 06/07/2011 Refill [facility] Internal Medicine [address] [address] Eldon Koehler MD [address] [place] [address] [address] [place] [address] Social History Tobacco Use Types [...] Visit [facility] Primary Care [address] [place] [address] Eldon Koehler MD [address] [place] [address] [address] [place] [address] documented as of this encounter Visit Diagnoses Not on filedocumented in this encounter Care Teams Alteration Inspector Relationship Specialty Start Date End Date Eldon Koehler MD PCP - General 10/06/07 documented as of this encounter
--- OUTSIDE RECORDS SUMMARY | 2024-05-22 17:04 | XMS_ITS | Encounter Summary ---
Author Organization [facility] Address [address] [place] [address] Care Team Providers Care First Aid Director Name Role Phone Eldon Koehler MD Primary Care Provider Encounter Details Date Type Department Care Team (Late st Contact Info) Description 05/30/2010 Orders Only [facility] Internal Medicine [address] [address] Eldon Koehler MD [address] [place] [address] [address] [place] [address] Hemoptysis Social History Tobacco Use Types Packs/Day Years [...] [facility] Primary Care [address] [place] [address] Eldon Koehler MD [address] [place] [address] [address] [place] [address] documented as of this encounter Visit Diagnoses Diagnosis Hemoptysis Hemoptysis, unspecified documented in this encounter Care Teams First Aid Director Relationship Specialty Start Date End Date Eldon Koehler MD PCP - General 10/06/07 documented as of this encounter
--- OUTSIDE RECORDS SUMMARY | 2024-05-22 17:04 | XMS_ITS | Encounter Summary ---
Author Organization [facility] Address [address] [place] [address] Care Team Providers Care Animal Control Specialist Name Role Phone Eldon Koehler MD Primary Care Provider [phone] Reason for Visit * Reason Onset Date Comments Upper Respiratory Symptoms 02/21/2012 Encounter Details Date Type Department Care Team (Late st Contact Info) Description 02/21/2012 Telephone [facility] Internal Medicine [address] [address] Eldon Koehler MD [address] [place] [address] Upper Respiratory Symptoms Social History Tobacco Use Types Packs/Day Years [...] * Telephone Encounter - Dae Valente - 02/21/2012 2:26 PM CDT Pt called said she is on her way * Telephone Encounter - Dae Valente - 02/21/2012 1:09 PM CDT Called pt no answer lm * Telephone Encounter - Eldon Koehler MD - 02/21/2012 12:35 PM CDT If she is wheezing should be seen workin this afternoon * Telephone Encounter - Dae Valente - 02/21/2012 10:17 AM CDT Pt called said every year she gets bronchitis and the z-pac helps her get over it fast she is coughing up white mucus& wheezing Sx started yesterday Pt is asking for z-pac to be sent to pharmacy documented in this encounter Plan of Treatment Upcoming Encounters Date Type Department Care Team (Late st Contact Info) Description 07/27/2024 9:40 AM CDT Office Visit [facility] Primary Care [address] [place] [address] Eldon Koehler MD [address] [place] [address] [address] documented as of this encounter Visit Diagnoses Not on filedocumented in this encounter Care Teams Animal Control Specialist Relationship Specialty Start Date End Date Edlon Koehler MD PCP - General 10/06/07 documented as of this encounter
--- OUTSIDE RECORDS SUMMARY | 2024-05-22 17:04 | XMS_ITS | Encounter Summary ---
Author Organization [facility] Address [address] [place] [address] Care Team Providers Care Clinical Reviewer Name Role Phone Eldon Koehler MD Primary Care Provider [phone] Reason for Visit * Reason Comments Hypothyroid Encounter Details Date Type Department Care Team (Latest Contact Info) Description 01/08/2011 11:15 AM CDT Office Visit [facility] Internal Medicine [address] [address] Eldon Koehler MD [address] [place] [address] Other and unspecified hyperlipidemia (Primary Dx); Depressive disorder, not elsewhere classified; Osteoarth NOS-unspec; Unspecified hypothyroidism; Myalgia and myositis; B12 deficiency Social History Tobacco Use Types Packs/Day [...] Reading Time Taken Comments Blood Pressure 120/80 01/08/2011 11:07 AM CDT Pulse - - Temperature - - Respiratory Rate - - Oxygen Saturation - - Inhaled Oxygen Concentration - - Weight 125.2 kg (276 lb) 01/08/2011 11:07 AM CDT Height 167.6 cm (5' 6 ) 01/08/2011 11:07 AM CDT Body Mass Index 44.55 01/08/2011 11:07 AM CDT documented in this encounter Progress Notes * Eldon Koehler MD - 01/08/2011 1:14 PM CDT HISTORY OF PRESENT ILLNESS WINIFRED PIPER, a 60 y.o. female. HPI Recent lab reviewed inc chol, off med Had back surgery Dec memory past few weeks No focal complaints Recent lab reviewed, borderline thyroid, missed doses Low b12 Stress issues present back to work Patient Active Problem List Diagnoses Code ??? Other and Unspecified Hyperlipidemia 272.4 ??? Depressive Disorder, not Elsewhere Classified 311 ??? Osteoarth NOS-Unspec 715.90 ??? Unspecified Hypothyroidism 244.9 ??? Headache 784.0 ??? Unspecified Backache 724.5 ??? Unspecified Asthma 493.90 ??? Unspecified Sleep Apnea 780.57 ??? Impaired Fasting Glucose 790.21 ??? Restless Leg Syndrome 333.94J History Social History ??? Marital Status: Spouse [...] 120/80, height 5' 6 (1.676 m), weight 276 lb (125.193 kg). General appearance: healthy appearing, active, alert, [...] abdomen. Lymphatics: No focal or generalized lymphadenopathy. Neurological exam reveals alert, oriented, normal speech, no focal findings or movement disorder noted, neck supple without rigidity, cranial nerves II through XII intact, , motor and sensory grosslynormal bilaterally, normal muscle tone, no tremors, strength 5/5.slight dec sens Lat lright thigh Encounter Diagnoses Name Primary? Other and unspecified hyperlipidemia Yes ??? Depressive disorder, not elsewhere classified ??? Osteoarth NOS-unspec ??? Unspecified hypothyroidism ??? Myalgia and myositis ??? B12 deficiency . The nature of cardiac risk has been [...] diet has been given to the patient. Restart chol med otc b12 compliance with thyroid reviewed Discussed cannot r/o small cva or other, pt wants to wait on MRI head until fu, discussed Cont depn med Cont requip for now reassess Advised flu vac PLAN: Orders Placed This Encounter ??? Cbc with differential ??? Comprehensive metabolic panel ??? Ck ??? Lipid panel ??? Tsh ??? Vitamin d 25 hydroxy ??? Vitamin b12 level ??? Duloxetine (cymbalta) 30 mg oral cpdr documented in this encounter Plan of Treatment Upcoming Encounters Date Type Department Care Team (Late st Contact Info) Description 07/27/2024 9:40 AM CDT Office Visit [facility] Primary Care [address] [place] [address] Eldon Koehler MD [address] [place] [address] [address] [place] [address] Scheduled Orders Name Type Priority Associated Diagnoses Orde r Schedule VITAMIN D 25 HYDROXY Lab Routine Myalgia and myositis Ordered: 01/08/2011 documented as of this encounter Procedures Procedure Name Priority Date/Time Associated Diagnosis Comments TSH Routine 04/03/2011 8:27 AM CORPORATE LAW ASSISTANT VITAMIN B12 LEVEL Routine 04/03/2011 8:2 7 AM CORPORATE LAW ASSISTANT CK Routine 04/03/2011 8:27 AM CORPORATE LAW ASSISTANT LIPID PANEL Routine 04/03/2011 8:27 AM CORPORATE LAW ASSISTANT COMPREHENSIVE METABOLIC PANEL Routine 04/03/2011 8:27 AM CORPORATE LAW ASSISTANT documented in this encounter Results * VITAMIN B12 LEVEL (04/03/2011 8:27 AM CORPORATE LAW ASSISTANT) VITAMIN B12 932 200 - 1100 pg/mL [facility] Comment: REPORT COMMENT: FASTING AN UPDATE OR CORRECTION HAS BEEN MADE TO NAME Test Performed at: [facility] [address] [place] ??[phone] MARY ANN JACOBO DO,MPH 04/03/2011 8:27 AM CORPORATE LAW ASSISTANT Eldon Koehler MD CHEMISTRY ORDERABLES Performing Organization Address City/[facility] Co de Phone Number INTERFACE SYSTEM Refer to clinic/hospital department [facility] [address] [place] [address] * CK (04/03/2011 8:27 AM CORPORATE LAW ASSISTANT) CK 37 29 - 143 U/L [facility] [facility] Comment: REPORT COMMENT: FASTING AN UPDATE OR CORRECTION HAS BEEN MADE TO NAME Test Performed at: [facility] [id number] [place] [address] ??[phone] MARY ANN JACOBO DO,MPH 04/03/2011 8:27 AM CORPORATE LAW ASSISTANT Eldon Koehler MD CHEMISTRY ORDERABLES Performing Organization Address [facility] de Phone Number INTERFACE SYSTEM Refer to clinic/hospital department [facility] [address] [place] [address] * (ABNORMAL) COMPREHENSIVE METABOLIC PANEL (04/03/2011 8:27 AM CORPORATE LAW ASSISTANT) Pathologist [facility] GLUCOSE 103(H) 65 - 99 mg/dL [facility] [employer] [facility] Comment:Fasting reference in terval BUN 11 7 - 25 mg/dL [facility] . [facility] CREATININE 0.72 0.60 - 1.10 mg/dL [facility] . [facility] GFR 92 > OR = 60 mL/min/1 .73m2 [facility] GFR, 107 > OR = 60 mL/min/1 .73m2 [facility] . [facility] BUN/CREAT RATIO NOT APPLICABLE 6 - 22 (calc) [facility] SODIUM 141 135 - 146 mmol/L [facility] . [facility] POTASSIUM 4.7 3.5 - 5.3 mmol/L [facility] . [facility] CHLORIDE 104 98 - 110 mmol/L [facility] . [facility] CO2 26 21 - 33 mmol/L [facility] . [facility] CALCIUM 9.3 8.6 - 10.2 mg/dL [facility] . [facility] TOTAL PROTEIN 6.8 6.2 - 8.3 g/dL [facility] . [facility] ALBUMIN 3.9 3.6 - 5.1 g/dL [facility] . [facility] GLOBULIN 2.9 2.2 - 3.9 g/dL (calc) [facility] . [facility] ALBUMIN/GLOBULI N RATIO 1.3 1.0 - 2.1 (calc) [facility] . [facility] BILIRUBIN TOTAL 0.4 0.2 - 1.2 mg/dL [facility] ALKALINE PHOSPHATASE 153(H) 33 - 130 U/L [facility] . [facility] AST 14 10 - 35 U/L [facility] . [facility] ALT 18 6 - 40 U/L [facility] Comment: Test Performed at: [facility] ??[phone] MARY ANN JACOBO DO,MPH 04/03/2011 8:27 AM CORPORATE LAW ASSISTANT Eldon Koehler MD CHEMISTRY ORDERABLES Performing Organization Address [facility] Phone Number INTERFACE SYSTEM Refer to clinic/hospital department [facility] [address] [place] [id number] * LIPID PANEL (04/03/2011 8:27 AM CORPORATE LAW ASSISTANT) CHOLESTEROL 188 125 - 200 mg/dL [facility] Comment: Test Performed at: [employer] ??[phone] MARY ANN JACOBO DO,MPH HDL 56 > OR = 46 mg/dL [facility] TRIGLYCERIDE 110 <150 mg/dL [facility] LDL CALCULATED 110 <130 mg/dL (calc) [facility] Comment: Desirable range <100 mg/dL for patients with CHD or diabetes and <70 mg/dL for diabetic patients with known heart disease. CHOL/HDL RATIO 3.4 < OR = 5.0 (calc) [facility] [employer] [facility] 04/03/2011 8:27 AM CORPORATE LAW ASSISTANT Eldon Koehler MD CHEMISTRY ORDERABLES Performing Organization Address [facility] de Phone Number INTERFACE SYSTEM Refer to clinic/hospital department [facility] [address] [place] [phone] * TSH (04/03/2011 8:27 AM CORPORATE LAW ASSISTANT) TSH 1.52 0.40 - 4.50 mIU/L [facility] . [facility] Comment: REPORT COMMENT: FASTING AN UPDATE OR CORRECTION HAS BEEN MADE TO NAME Test Performed at: [facility] [address] [place], [place] ??[phone] MARY ANN JACOBO DO,MPH 04/03/2011 8:27 AM CORPORATE LAW ASSISTANT Eldon Koehler MD CHEMISTRY ORDERABLES INTERFACE SYSTEM Refer to clinic/hospital department [facility] [address] [address] documented in this encounter Visit Diagnoses Diagnosis Other and unspecified hyperlipidemia- Primary Depressive disorder, not elsewhere classified Osteoarthrosis, unspecified whether generalized or localized, unspecified site Unspecified hypothyroidism Myalgia and myositis Mylagia and myositis, unspecified B12 deficiency Other B-complex deficiencies documented in this encounter Care Teams Clinical Reviewer Relationship Specialty Start Date End Date Eldon Koehler MD PCP - General 10/06/07 documented as of this encounter
--- OUTSIDE RECORDS SUMMARY | 2024-05-22 17:04 | XMS_ITS | Encounter Summary ---
Author Organization [facility] Address [address] [place] [address] Care Team Providers Care Bureau Chief Name Role Phone Eldon Koehler MD Primary Care Provider [phone] Reason for Visit * Reason Onset Date Comments Other 06/13/2011 Encounter Details Date Type Department Care Team (Late st Contact Info) Description 06/13/2011 Telephone [facility] Internal Medicine [address] [address] Eldon Koehler MD [address] [place] [address] Other Social History Tobacco Use Types [...] * Telephone Encounter - Dae Valente - 06/14/2011 1:13 PM CST Spoke with pt ENGINEER * Telephone Encounter - Jacqueline Andrade - 06/14/2011 12:10 PM CST Lm for pt lm on pharm auto line ENGINEER * Telephone Encounter - Jacqueline Andrade - 06/13/2011 1:09 PM CST Pt called is getting a MRI wants something to relax her she is nervous ENGINEER documented in this encounter Plan of Treatment Upcoming Encounters Date Type Department Care Team (Late st Contact Info) Description 07/27/2024 9:40 AM CDT Office Visit [facility] Primary Care [facility] [address] [place] [address] [address] [place] [address] Eldon Koehler MD [address] [place] [address] [address] [place] [address] documented as of this encounter Procedures Procedure Name Priority Date/Time Associated Diagnosis Comments CBC WITH DIFFERENTIAL Routine 07/12/2011 7:48 AM RAIL ENGINEER VITAMIN D 25 HYDROXY Routine 07/12/2011 7:48 AM RAIL ENGINEER TSH Routine 07/12/2011 7:48 AM RAIL ENGINEER HEMOGLOBIN A1C Routine 07/12/2011 7:48 AM RAIL ENGINEER VITAMIN B12 LEVEL Routine 07/12/2011 7:4 8 AM RAIL ENGINEER CK Routine 07/12/2011 7:48 AM RAIL ENGINEER LIPID PANEL Routine 07/12/2011 7:48 AM RAIL ENGINEER COMPREHENSIVE METABOLIC PANEL Routine 07/12/2011 7:48 AM RAIL ENGINEER documented in this encounter Results * (ABNORMAL) VITAMIN B12 LEVEL (07/12/2011 7:48 AM RAIL ENGINEER) VITAMIN B12 1244(H) 200 - 1100 pg/mL [facility] Comment: REPORT COMMENT: FASTING Test Performed at: [facility] [place] [address] [place] ??[address] MARY ANN JACOBO DO,MPH 07/12/2011 7:48 AM RAIL ENGINEER Eldon Koehler MD CHEMISTRY ORDERABLES Performing Organization Address [facility] Phone Number INTERFACE SYSTEM Refer to clinic/hospital department [facility] [address] [place] [address] * (ABNORMAL) HEMOGLOBIN A1C (07/12/2011 7:48 AM RAIL ENGINEER) HEMOGLOBIN A1C 6.1(H) <5.7 % of total Hgb [facility] Comment: ?Higher risk of diabetes ? <5.7 ? Decreased risk of diabetes ? 5.7-6.0 ?Increased risk of diabetes ? 6.1-6.4 ?Higher risk of diabetes ? > or = 6.5 Consistent with diabetes ?Standards of Medical Care in Diabetes-2010. ?Diabetes Care, 33(Supp 1): S1-S61,2010. REPORT COMMENT: FASTING Test Performed at: [facility] [place] [address] [place], [place] ??[address] MARY ANN JACOBO DO,MPH 07/12/2011 7:48 AM RAIL ENGINEER Eldon Koehler MD CHEMISTRY ORDERABLES Performing Organization Address [facility] de Phone Number INTERFACE SYSTEM Refer to clinic/hospital department [facility] [address] [place] [address] * TSH (07/12/2011 7:48 AM RAIL ENGINEER) Pathologist [facility] TSH 2.53 0.40 - 4.50 mIU/L [facility] Comment: REPORT COMMENT: FASTING Test Performed at: [facility] [place] [address] [place], [place] ??[address] MARY ANN JACOBO DO,MPH 07/12/2011 7:48 AM RAIL ENGINEER Eldon Koehler MD CHEMISTRY ORDERABLES Performing Organization Address [facility] de Phone Number INTERFACE SYSTEM Refer to clinic/hospital department [facility] [address] [place] [address] * VITAMIN D 25 HYDROXY (07/12/2011 7:48 AM RAIL ENGINEER) VITAMIN D, 25 OH, TOTAL 51 30 - 100 ng/mL [facility] VITAMIN D, 25 OH, D2 <4 ng/mL [facility] VITAMIN D, 25 OH, D3 51 ng/mL [facility] Comment: 25-OHD3 indicates both endogenous production and supplementation. 25-OHD2 is an indicator of exogenous sources such as diet or supplementation. Therapy is based on measurement of Total 25-OHD, with levels <20 ng/mL indicative of Vitamin D deficiency while levels between 20 ng/mL and 30 ng/mL suggest insufficiency. Optimal levels are >/=30 ng/mL. REPORT COMMENT: FASTING Test Performed at: [facility] [address] ??[phone] DOMINIQUE AQUINO MD ?? 07/12/2011 7:48 AM RAIL ENGINEER Eldon Koehler MD CHEMISTRY ORDERABLES Performing Organization Address [facility] de Phone Number INTERFACE SYSTEM Refer to clinic/hospital department [facility] [address] [place] [address] * CK (07/12/2011 7:48 AM RAIL ENGINEER) CK 47 29 - 143 U/L [facility] Comment: REPORT COMMENT: FASTING Test Performed at: [facility] [address] [place], [place] ??[address] MARY ANN JACOBO DO 07/12/2011 7:48 AM RAIL ENGINEER Eldon Koehler MD CHEMISTRY ORDERABLES INTERFACE SYSTEM Refer to clinic/hospital department [facility] [address] [place] [address] * (ABNORMAL) COMPREHENSIVE METABOLIC PANEL (07/12/2011 7:48 AM RAIL ENGINEER) GLUCOSE 96 65 - 99 mg/dL [facility] Comment:Fasting reference in terval BUN 11 7 - 25 mg/dL [facility] CREATININE 0.77 0.50 - 1.05 mg/dL [facility] Comment: For patients >49 years of age, the reference limit for Creatinine is approximately 13% higher for people identified as -Qatari. GFR 85 > OR = 60 mL/min/1 .73m2 [facility] GFR, 99 > OR = 60 mL/min/1 .73m2 [facility] BUN/CREAT RATIO NOT APPLICABLE 6 - 22 (calc) [facility] SODIUM 139 135 - 146 mmol/L [facility] POTASSIUM 4.5 3.5 - 5.3 mmol/L [facility] CHLORIDE 103 98 - 110 mmol/L [facility] CO2 28 21 - 33 mmol/L [facility] CALCIUM 9.2 8.6 - 10.4 mg/dL [facility] TOTAL PROTEIN 6.5 6.2 - 8.3 g/dL [facility] ALBUMIN 4.0 3.6 - 5.1 g/dL [facility] GLOBULIN 2.5 2.2 - 3.9 g/dL (calc) [facility] ALBUMIN/GLOBULIN RATIO 1.6 1.0 - 2.1 (calc) [facility] BILIRUBIN TOTAL 0.6 0.2 - 1.2 mg/dL [facility] ALKALINE PHOSPHATASE 147(H) 33 - 130 U/L [facility] AST 17 10 - 35 U/L [facility] ALT 22 6 - 40 U/L [facility] Comment: Test Performed at: [facility] [address] [place], [place] ??[phone] MARY ANN JACOBO DO 07/12/2011 7:48 AM RAIL ENGINEER Eldon Koehler MD CHEMISTRY ORDERABLES Performing Organization Address [facility] de Phone Number INTERFACE SYSTEM Refer to clinic/hospital department [facility] [address] [place] [address] * LIPID PANEL (07/12/2011 7:48 AM RAIL ENGINEER) Pathologist [facility] CHOLESTEROL 171 125 - 200 mg/dL [facility] Comment: Test Performed at: [facility] [address] [place], [place] ??[address] MARY ANN JACOBO HDL 47 > OR = 46 mg/dL [facility] TRIGLYCERIDE 143 <150 mg/dL [facility] LDL CALCULATED 95 <130 mg/dL (calc) [facility] Comment: Desirable range <100 mg/dL for patients with CHD or diabetes and <70 mg/dL for diabetic patients with known heart disease. CHOL/HDL RATIO 3.6 < OR = 5.0 (calc) [facility] 07/12/2011 7:48 AM RAIL ENGINEER Eldon Koehler MD CHEMISTRY ORDERABLES Performing Organization Address [facility] de Phone Number INTERFACE SYSTEM Refer to clinic/hospital department [facility] [address] [place] [address] * (ABNORMAL) CBC WITH DIFFERENTIAL (07/12/2011 7:48 AM RAIL ENGINEER) Pathologist [facility] WBC 9.1 3.8 - 10.8 Thousand/ uL [facility] RBC 4.24 3.80 - 5.10 Million/u L [facility] HEMOGLOBIN 12.4 11.7 - 15.5 g/dL [facility] HEMATOCRIT 37.3 35.0 - 45.0 % [facility] MCV 87.9 80.0 - 100.[address] [facility] MCH 29.2 27.0 - 33.[address] [facility] MCHC 33.3 32.0 - 36.0 g/dL [facility] RDW 16.2(H) 11.0 - 15.0 % [facility] PLATELETS 299 140 - 400 Thousand/ uL [facility] NEUTROPHIL ABSOLUTE 6,661 1,500 - 7,800 cells/uL [facility] LYMPHOCYTE ABSOLUTE 1,538 850 - 3,900 cells/uL [facility] MONOCYTE ABSOLUTE 546 200 - 950 cells/uL [facility] EOSINOPHIL ABSOLUTE 319 15 - 500 cells/uL [facility] BASOPHILS ABSOLUTE 36 0 - 200 cells/uL [facility] NEUTROPHIL 73.2 % [facility] LYMPHOCYTES 16.9 % [facility] MONOCYTE 6.0 % [facility] EOSINOPHILS 3.5 % [facility] BASOPHILS 0.4 % [facility] Comment: REPORT COMMENT: FASTING Test Performed at: [facility] [address] [place], [place] ??[address] MARY ANN JACOBO DO 07/12/2011 7:48 AM RAIL ENGINEER Eldon Koehler MD HEMATOLOGY ORDERABLE S INTERFACE SYSTEM Refer to clinic/hospital department [facility] [address] [place] [address] documented in this encounter Visit Diagnoses Not on filedocumented in this encounter Care Teams Bureau Chief Relationship Specialty Start Date End Date Eldon Koehler MD PCP - General 10/06/07 documented as of this encounter
--- OUTSIDE RECORDS SUMMARY | 2024-05-22 17:04 | XMS_ITS | Encounter Summary ---
Author Organization [facility] Address [address] [place] [address] Care Team Providers Care Regroover Name Role Phone Eldon Koehler MD Primary Care Provider [phone] Reason for Visit * Reason Onset Date Comments Other 07/11/2010 Encounter Details Date Type Department Care Team (Late st Contact Info) Description 07/11/2010 Telephone [facility] Internal Medicine [address] [address] Eldon Koehler MD [address] [place] [address] Other Social History Tobacco Use Types [...] * Telephone Encounter - Jacqueline Andrade - 07/11/2010 2:05 PM CST Spoke with pt PRESSURE FIRER * Telephone Encounter - Eldon Koehler MD - 07/11/2010 10:41 AM CST The dose of gabapentin can be increased She take take 1 in am and 2 in pm PRESSURE FIRER * Telephone Encounter - Jacqueline Andrade - 07/11/2010 10:23 AM CST Pt called stating the neurotin worked really good the 1st day 2nd day had burning , 3rd day med wore of quick and had burning again. She is not bad as she was when she first saw you but she is still having problems her CT is scheduled for tues PRESSURE FIRER documented in this encounter Plan of Treatment Upcoming Encounters Date Type Department Care Team (Late st Contact Info) Description 07/27/2024 9:40 AM CDT Office Visit [facility] Primary Care [address] [place] [address] Eldon Koehler MD [address] [place] [address] documented as of this encounter Visit Diagnoses Not on filedocumented in this encounter Care Teams Regroover Relationship Specialty Start Date End Date Eldon Koehler MD PCP - General 10/06/07 documented as of this encounter
--- OUTSIDE RECORDS SUMMARY | 2024-05-22 17:04 | XMS_ITS | Encounter Summary ---
Author Organization [facility] Address [address] [place] [address] Care Team Providers Care Coordinator Mining Products Name Role Phone Eldon Koehler MD Primary Care Provider [phone] Reason for Visit * Reason Onset Date Comments Upper Respiratory Symptoms 05/23/2011 Encounter Details Date Type Department Care Team (Late st Contact Info) Description 05/23/2011 Telephone [facility] Internal Medicine [address] [address] Eldon Koehler MD [address] [place] [address] Upper Respiratory Symptoms Social History Tobacco [...] encounter Miscellaneous Notes * Telephone Encounter - IwonaambermamiShahrzadra Vásquez - 05/23/2011 10:18 AM CST Symptoms started 3-4 days ago. Had diarrhea, nausea & vomiting which has subsided. Fever has broke. Slight dry cough. Doesn't feel good. Very sore throat & can feel white bumps in back of throat. Can't come in because she has no car. Pt requesting a Z-robby. YER MACHINE documented in this encounter Plan of Treatment Upcoming Encounters Date Type Department Care Team (Late st Contact Info) Description 07/27/2024 9:40 AM CDT Office Visit [facility] Primary Care [address] [place] [address] Eldon Koehler MD [address] [place] [address] [place] [address] documented as of this encounter Visit Diagnoses Not on filedocumented in this encounter Care Teams Coordinator Mining Products Relationship Specialty Start Date End Date Eldon Koehler MD PCP - General 10/06/07 documented as of this encounter
--- OUTSIDE RECORDS SUMMARY | 2024-05-22 17:04 | XMS_ITS | Encounter Summary ---
Author Organization [facility] Address [address] [place] [address] Care Team Providers Care Cattle And Wheat Farmer Name Role Phone Eldon Koehler MD Primary Care Provider [phone] Reason for Visit * Reason Comments Back Pain Encounter Details Date Type Department Care Team (Late st Contact Info) Description 05/21/2012 1:30 PM STRUCTURAL WELDER Office Visit [facility] Internal Medicine [address] [address] Eldon Koehler MD [address] [place] [phone] Lumbar back pain (Primary Dx); OSTEOARTHROS NOS-UNSPEC Social History Tobacco Use Types Packs/Day Years [...] Reading Time Taken Comments Blood Pressure 130/80 05/21/2012 1:50 PM STRUCTURAL WELDER Pulse - - Temperature - - Respiratory Rate - - Oxygen Saturation - - Inhaled Oxygen Concentration - - Weight 131.1 kg (289 lb) 05/21/2012 1:50 PM STRUCTURAL WELDER Height 167.6 cm (5' 6 ) 05/21/2012 1:50 PM STRUCTURAL WELDER Body Mass Index 46.65 05/21/2012 1:50 PM STRUCTURAL WELDER documented in this encounter Progress Notes * Eldon Koehler MD - 05/21/2012 6:03 PM CST Bent down yesterday Severe right back pain rad to hip Pain med not working Different than prev back pain The patient appears alert, well appearing, and in no distress.- ENT exam normal, no neck nodes ., Chest:clear to auscultation, no wheezes, rales or rhonchi, symmetric air entry. Heart sounds are normal. Abdomen soft, nontender, no masses or organomegaly. ls tender Right parsp m tender Le normal ASSESSMENT: Encounter Diagnoses Name Primary? Lumbar back pain Yes ??? OSTEOARTHROS NOS-UNSPEC Try conservative Has pain med Cont celebrex Try PT if not improving Had back surgery 1 yr ago May need CT if not improved PLAN: Orders Placed This Encounter ??? cyclobenzaprine (FLEXERIL) 10 mg Oral tablet CTURAL WELDER documented in this encounter Plan of Treatment Upcoming Encounters Date Type Department Care Team (Late st Contact Info) Description 07/27/2024 9:40 AM CDT Office Visit [facility] Primary Care [address] [address] Eldon Koehler MD [address] [place] [address] documented as of this encounter Visit Diagnoses Diagnosis Lumbar back pain- Primary Lumbago OSTEOARTHROS NOS-UNSPEC Osteoarthrosis, unspecified whether generalized or localized, unspecified site documented in this encounter Care Teams Cattle And Wheat Farmer Relationship Specialty Start Date End Date Eldon Koehler MD PCP - General 10/06/07 documented as of this encounter
--- OUTSIDE RECORDS SUMMARY | 2024-05-22 17:04 | XMS_ITS | Encounter Summary ---
Author Organization [facility] Address [address] [place] [address] Care Team Providers Care Lead Generator Name Role Phone Eldon Koehler MD Primary Care Provider [phone] Reason for Visit * Reason Onset Date Comments Knee Pain 06/15/2010 Encounter Details Date Type Department Care Team (Late st Contact Info) Description 06/15/2010 Telephone [facility] Internal Medicine [address] [address] Eldon Koehler MD [address] [place] [phone] Knee Pain Social History Tobacco Use Types Packs/Day [...] encounter Miscellaneous Notes * Telephone Encounter - Iliana Mike - 06/15/2010 12:05 PM CST Called pt and made an appt RT PACKER * Telephone Encounter - Eldon Koehler MD - 06/15/2010 11:58 AM CST Not likely helpful See now RT PACKER * Telephone Encounter - Iliana Mike - 06/15/2010 11:44 AM CST Pt L-knee is very painful when she bends it Cant put any wait on it she would like to have an x-ray RT PACKER documented in this encounter Plan of Treatment Upcoming Encounters Date Type Department Care Team (Late st Contact Info) Description 07/27/2024 9:40 AM CDT Office Visit [facility] Primary Care [address] [place] [address] Eldon Koehler MD [address] [place] [address] [address] [place] [address] documented as of this encounter Visit Diagnoses Not on filedocumented in this encounter Care Teams Lead Generator Relationship Specialty Start Date End Date Eldon Koehler MD PCP - General 10/06/07 documented as of this encounter
--- OUTSIDE RECORDS SUMMARY | 2024-05-22 17:04 | XMS_ITS | Encounter Summary ---
Author Organization [facility] Address [address] [place] [address] Care Team Providers Care Fit Model Name Role Phone Eldon Koehler MD Primary Care Provider [phone] Encounter Details Date Type Department Care Team (Late st Contact Info) Description 08/07/2010 Orders Only [facility] Internal Medicine [address] [address] Provider, Abstract NO ADDRESS ON [...] Office Visit [facility] Primary Care [address] [place] [address] Eldon Koehler MD [address] [place] [address] [address] [place] [address] documented as of this encounter Procedures Procedure Name Priority Date/Time Associated Diagnosis Comments HEMOGLOBIN AND HEMATOCRIT Routine 08/06/2010 EKG 12-LEAD Routine 08/06/2010 documented in this encounter Results * HEMOGLOBIN AND HEMATOCRIT (08/06/2010) Blood specimen (specimen) Abstract Provider HEMATOLOGY ORDERABLE [facility] CLIA# [id number] [address] [place] [place] [address] * EKG 12-LEAD (08/06/2010) Abstract Provider ECG ORDERABLES Performing Organization Address City/State/[facility] Co de Phone Number [facility] documented in this encounter Visit Diagnoses Not on filedocumented in this encounter Care Teams Fit Model Relationship Specialty Start Date End Date Eldon Koehler MD PCP - General 10/06/07 documented as of this encounter
--- OUTSIDE RECORDS SUMMARY | 2024-05-22 17:04 | XMS_ITS | Encounter Summary ---
Author Organization [facility] Address [address] [place] [address] Care Team Providers Care Compliance Reviewer Name Role Phone Edlon Koehler MD Primary Care Provider [phone] Reason for Visit * Reason Comments Hypothyroid problems Sleep Problem Joint Pain Encounter Details Date Type Department Care Team (Late st Contact Info) Description 10/02/2012 9:45 AM CDT Office Visit [facility] Internal Medicine [address] [address] Eldon Koehler MD [address] [place] [address] Fibromyalgia (Primary Dx); Restless leg syndrome; HYPOTHYROIDISM NOS; Unspecified sleep apnea Social History Tobacco Use Types Packs/Day [...] Reading Time Taken Comments Blood Pressure 120/80 10/02/2012 9:51 AM CDT Pulse - - Temperature - - Respiratory Rate - - Oxygen Saturation - - Inhaled Oxygen Concentration - - Weight 134.7 kg (297 lb) 10/02/2012 9:51 AM CDT Height 167.6 cm (5' 6 ) 10/02/2012 9:51 AM CDT Body Mass Index 47.94 10/02/2012 9:51 AM CDT documented in this encounter Progress Notes * lEdon Koehler MD - 10/02/2012 4:53 PM CDT HISTORY OF PRESENT ILLNESS Winifred Rodriguez, a 62 y.o. female. HPI vickie thyroid Still with ache Insomnia x 1mo rls med does not help some morning stiffness Chol ok vickie meds Patient Active Problem List Diagnosis Code ??? [...] 120/80, height 5' 6 (1.676 m), weight 297 lb (134.718 kg). General appearance: healthy appearing, active, alert, [...] and sensory grosslynormal Encounter Diagnoses Name Primary? Fibromyalgia Yes ??? Restless leg syndrome ??? HYPOTHYROIDISM NOS ??? Unspecified sleep apnea check lab Try rozerem sample ambien if above does not work On [employer] cymbalta to 60 Cont rls med . PLAN: Orders Placed This Encounter ??? TSH ??? pregabalin (LYRICA) 75 mg Oral Cap ??? rOPINIRole (REQUIP) 0.5 mg Oral tablet ??? HYDROcodone-acetaminophen (LORTAB) 5-500 mg Oral tablet ??? atorvastatin (LIPITOR) 20 mg Oral tablet ??? omeprazole (PRILOSEC) 20 mg Oral TbEC documented in this encounter Plan of Treatment Upcoming Encounters Date Type Department Care Team (Late st Contact Info) Description 07/27/2024 9:40 AM CDT Office Visit [facility] Primary Care [address] [place] [address] Eldon Koehler MD [address] [place] [address] [address] [place] [address] documented as of this encounter Results * TSH (07/09/2013 8:34 AM CLAY GRINDER) TSH 2.36 0.45 - 4.50 uIU/mL EXTERNAL LAB Comment:2.360 Blood specimen (specimen) 07/09/2013 8:34 AM CLAY GRINDER Eldon Koehler MD CHEMISTRY ORDERABLES EXTERNAL LAB documented in this encounter Visit Diagnoses Diagnosis Fibromyalgia- Primary Mylagia and myositis, unspecified Restless leg syndrome Restless legs syndrome (RLS) HYPOTHYROIDISM NOS Unspecified hypothyroidism Unspecified sleep apnea documented in this encounter Care Teams Compliance Reviewer Relationship Specialty Start Date End Date Eldon Koehler MD PCP - General 10/06/07 documented as of this encounter
--- OUTSIDE RECORDS SUMMARY | 2024-05-22 17:04 | XMS_ITS | Encounter Summary ---
Author Organization [facility] Address [address] [place] [address] Care Team Providers Care House Nurse Name Role Phone Eldon Koehler MD Primary Care Provider [phone] Reason for Visit * Reason Comments ER Follow Up allergic reaction to clindamycin, rash itching Encounter Details Date Type Department Care Team (Late st Contact Info) Description 09/03/2010 1:45 PM CDT Office Visit [facility] Internal Medicine [address] [address] Eldon Koehler MD [address] [place] [address] Other and unspecified hyperlipidemia; Depressive disorder, not elsewhere classified; Unspecified hypothyroidism; Restless leg syndrome; Vitamin D deficiency Social History Tobacco Use [...] Reading Time Taken Comments Blood Pressure 120/90 09/03/2010 1:59 PM CDT Pulse - - Temperature 37.2 ??C (98.9 ??F) 09/03/2010 1:59 PM CD T Respiratory Rate - - Oxygen Saturation - - Inhaled Oxygen Concentration - - Weight 121.6 kg (268 lb) 09/03/2010 1:59 PM CDT Height 167.6 cm (5' 6 ) 09/03/2010 1:59 PM CDT Body Mass Index 43.26 09/03/2010 1:59 PM CDT documented in this encounter Progress Notes * Eldon Koehler MD - 09/03/2010 6:01 PM CDT HISTORY OF PRESENT ILLNESS WINIFRED PIPER, a 60 y.o. female. HPI Recent lab pend Leg worse pain numb on right--surgery pend Having dental issues Patient Active Problem List Diagnoses Code ??? [...] in stool. Genitourinary: Negative for dysuria. Musculoskeletal: Right leg pain . Skin: Negative for rash and itching. Neurological: Negative for dizziness, focal weakness, seizures and headaches. Psychiatric/Behavioral: Negative for depression. The patient is not nervous/anxious. PHYSICAL EXAM BP 120/90 Temp 98.9 ??F (37.2 ??C) Ht 5' 6 (1.676 m) Wt 268 lb (121.564 kg) BMI 43.26 kg/m2 Physical Exam Vitals reviewed. Constitutional: She is oriented to person, place, and time. She appears well- developed and well-nourished. No distress. Eyes: Pupils are equal, round, and reactive to light. Right eye exhibits no discharge. Neck: No JVD present. No tracheal deviation present. No thyromegaly present. Cardiovascular: Normal rate, regular rhythm, normal heart sounds and intact distal pulses. No murmur heard. Pulmonary/Chest: Breath sounds normal. No respiratory distress. She has no wheezes. She has no rales. Abdominal: Soft. Bowel sounds are normal. She exhibits no distension. No tenderness. She has no rebound and no guarding. Musculoskeletal: She exhibits no edema Lymphadenopathy: She has no cervical adenopathy. Neurological: She is alert and oriented to person, place, and time. Skin: Skin is warm and dry. She is not diaphoretic. Mood stable Back ls tender Dec pin prick right lat thigh djd left knee ASSESSMENT: Encounter Diagnoses Name Primary? Other and unspecified hyperlipidemia ??? Depressive disorder, not elsewhere classified ??? Unspecified hypothyroidism ??? Restless leg syndrome ??? Vitamin D deficiency . The nature of cardiac risk [...] diet has been given to the patient. PLAN: Orders Placed This Encounter ??? Cbc with differential ??? Comprehensive metabolic panel ??? Lipid panel ??? Tsh ??? Vitamin d 25 hydroxy ??? Duloxetine (cymbalta) 30 mg oral cpdr documented in this encounter Plan of Treatment Upcoming Encounters Date Type Department Care Team (Late st Contact Info) Description 07/27/2024 9:40 AM CDT Office Visit [facility] Primary Care [address] [place] [address] Eldon Koehler MD [address] [place] [phone] Scheduled Orders Name Type Priority Associated Diagnoses Orde r Schedule VITAMIN D 25 HYDROXY Lab Routine Vitamin D deficiency Ordered: 09/03/2010 documented as of this encounter Visit Diagnoses Diagnosis Other and unspecified hyperlipidemia Depressive disorder, not elsewhere classified Unspecified hypothyroidism Restless leg syndrome Restless legs syndrome (RLS) Vitamin D deficiency Unspecified vitamin D deficiency documented in this encounter Care Teams House Nurse Relationship Specialty Start Date End Date Eldon Koehler MD PCP - General 10/06/07 documented as of this encounter
--- OUTSIDE RECORDS SUMMARY | 2024-05-22 17:04 | XMS_ITS | Encounter Summary ---
Author Organization [facility] Address [address] [place] [address] Care Team Providers Care Step Finisher Name Role Phone Eldon Koehler MD Primary Care Provider Encounter Details Date Type Department Care Team (Late st Contact Info) Description 07/17/2010 Orders Only [facility] Internal Medicine [address] [address] Eldon Koehler MD [address] [place] [address] [address] [place] [address] Spinal stenosis Social History Tobacco Use Types Packs/Day Years [...] CDT Office Visit [facility] [address] [place] [address] Eldon Koehler MD [address] [place] [address] [address] [place] [address] documented as of this encounter Visit Diagnoses Diagnosis Spinal stenosis Spinal stenosis, unspecified region other than cervical documented in this encounter Care Teams Step Finisher Relationship Specialty Start Date End Date Eldon Koehler MD PCP - General 10/06/07 documented as of this encounter
--- OUTSIDE RECORDS SUMMARY | 2024-05-22 17:04 | XMS_ITS | Encounter Summary ---
Author Organization [facility] Address [address] [place] [address] Care Team Providers Care Audit Specialist Name Role Phone Eldon Koehler MD Primary Care Provider [phone] Encounter Details Date Type Department Care Team (Late st Contact Info) Description 07/05/2010 Orders Only [facility] Laboratory Services Medical [facility] A [address] [facility], [place] [address] Eldon Koehler MD [address] [place] [address] Social History Tobacco Use Types Packs/Day Years [...] [facility] Primary Care [facility] [address] [place] [address] [address] [place] [address] Eldon Koehler MD [address] [place] [address] [address] [place] [phone] documented as of this encounter Visit Diagnoses Not on filedocumented in this encounter Care Teams Audit Specialist Relationship Specialty Start Date End Date Eldon Koehler MD PCP - General 10/06/07 documented as of this encounter
--- OUTSIDE RECORDS SUMMARY | 2024-05-22 17:04 | XMS_ITS | Encounter Summary ---
Author Organization [facility] Address [address] [place] [address] Care Team Providers Care Painter Plate Name Role Phone Eldon Koehler MD Primary Care Provider [phone] Reason for Visit * Reason Onset Date Comments Medication Review 08/17/2012 Encounter Details Date Type Department Care Team (Late st Contact Info) Description 08/17/2012 Telephone [facility] Internal Medicine [address] [address] Eldon Koehler MD [address] [place] [phone] Medication Review Social History Tobacco Use [...] * Telephone Encounter - Jacqueline Andrade - 08/17/2012 3:27 PM CDT Pt called stating PA is needed ON CYMBALTA called [phone] insurance co said pt does not need aPA They need to speak with the pt regarding her medications documented in this encounter Plan of Treatment Upcoming Encounters Date Type Department Care Team (Late st Contact Info) Description 07/27/2024 9:40 AM CDT Office Visit [facility] Primary Care [address] [place] [address] Eldon Koehler MD [address] [place] [address] [address] [place] [address] documented as of this encounter Visit Diagnoses Not on filedocumented in this encounter Care Teams Painter Plate Relationship Specialty Start Date End Date Eldon Koehler MD PCP - General 10/06/07 documented as of this encounter
--- OUTSIDE RECORDS SUMMARY | 2024-05-22 17:04 | XMS_ITS | Encounter Summary ---
Author Organization [facility] Address [address] [place] [address] Care Team Providers Care Dobby Looms Pegger Name Role Phone Eldon Koehler MD Primary Care Provider [phone] Reason for Referral * Consultation (Routine) - Closed Specialty Diagnoses / Procedures Referred By Carmen villalobos Referred To Contact Orthopedic Surgery Diagnoses Backache Eldon Koehler MD [address] [place] [phone] Referral ID Status Reason Start Date Expiration Date V isits Requested Visits Authorized [id number] Closed Ordering Dept To Review (STL) 07/17/2010 07/17/2011 1 1 [facility] Reason for Visit * Reason Onset Date Comments Referral 07/17/2010 Encounter Details Date Type Department Care Team (Late st Contact Info) Description 07/17/2010 Telephone [facility] Internal Medicine [address] [address] Eldon Koehler MD [address] [place] [phone] Referral Social History Tobacco Use Types [...] 07/27/2024 9:40 AM CDT Office Visit [facility] Care [address] [place] [address] Eldon Koehler MD [address] [place] [address] [address] [place] [address] Scheduled Referrals Name Type Priority Associated Diagnoses Order Schedule AMB REFERRAL TO ORTHOPEDIC SURGERY Outpatient Referral Routine Backache Ordered: 07/17/2010 documented as of this encounter Visit Diagnoses Diagnosis Backache- Primary Backache, unspecified documented in this encounter Care Teams Dobby Looms Pegger Relationship Specialty Start Date End Date Eldon Koehler MD PCP - General 10/06/07 documented as of this encounter
--- OUTSIDE RECORDS SUMMARY | 2024-05-22 17:04 | XMS_ITS | Encounter Summary ---
Author Organization [facility] Address [address] [place] [address] Care Team Providers Care Postal Transportation Clerk Name Role Phone Eldon Koehler MD Primary Care Provider [phone] Reason for Visit * Reason Onset Date Comments Question 02/25/2012 Encounter Details Date Type Department Care Team (Late st Contact Info) Description 02/25/2012 Telephone [facility] Internal Medicine [address] [address] Eldon Koehler MD [address] [place] [phone] Question Social History Tobacco Use Types [...] * Telephone Encounter - Dae Valente - 02/25/2012 2:10 PM CDT Spoke with pt gave info * Telephone Encounter - Eldon Koehler MD - 02/25/2012 1:05 PM CDT It is more likely from the steroid-medrol than the antibiotic Stop the medrol Call back 24 hrs if not improving will change abx if persists * Telephone Encounter - Dae Valente - 02/25/2012 10:30 AM CDT Pt called said she still not feeling well her breathing is bad she is having side effects to antibiotic she can't sleep at night, she has random weird thoughts when she uses her C-Pap machine that's the only time she is relaxed and feels like she's getting enough air What's next step? documented in this encounter Plan of Treatment Upcoming Encounters Date Type Department Care Team (Late st Contact Info) Description 07/27/2024 9:40 AM CDT Office Visit [facility] Primary Care [address] [place] [address] Eldon Koehler MD [address] [place] [address] [address] [place] [address] documented as of this encounter Visit Diagnoses Not on filedocumented in this encounter Care Teams Postal Transportation Clerk Relationship Specialty Start Date End Date Eldon Koehler MD PCP - General 10/06/07 documented as of this encounter
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
--- OUTSIDE RECORDS SUMMARY | 2024-05-22 17:04 | XMS_ITS | Encounter Summary ---
Author Organization [facility] Address [address] [place] [address] Care Team Providers Care Software Intern Name Role Phone Eldon Koehler MD Primary Care Provider [phone] Reason for Referral * Outpatient Services (Routine) - Closed Specialty Diagnoses / Procedures Referred By Contac t Referred To Contact CT Scan Diagnoses Spinal stenosis Procedures CT LUMBAR SPINE WO CONTRAST Eldon Koehler MD [address] [place] [phone] Referral ID Status Reason Start Date Expiration Date Visits Re quested Visits Authorized [id number] Closed 07/05/2010 01/01/2011 1 1 ITECTURE DEPARTMENT CHAIR Reason for Visit * Reason Comments Knee Pain left knee Tingling Numbness and tinglin g and burning pain in thighs, happens more in prone position Encounter Details Date Type Department Care Team (Late st Contact Info) Description 07/05/2010 1:00 PM ARCHITECTURE DEPARTMENT CHAIR Office Visit [facility] Internal Medicine [address] [address] Eldon Koehler MD [address] [place] [address] [address] [place] [address] Other and unspecified hyperlipidemia; Depressive disorder, not elsewhere classified; Osteoarth NOS-unspec; Unspecified hypothyroidism; Impaired fasting glucose; Restless leg syndrome; Myalgia and myositis; Spinal stenosis Social History Tobacco Use Types [...] Sign Reading Time Taken Comments Blood Pressure 122/80 07/05/2010 1:34 PM ARCHITECTURE DEPARTMENT CHAIR Pulse - - Temperature - - Respiratory Rate - - Oxygen Saturation - - Inhaled Oxygen Concentration - - Weight 124.7 kg (275 lb) 07/05/2010 1:34 PM ARCHITECTURE DEPARTMENT CHAIR Height - - Body Mass Index 44.72 06/15/2010 1:06 PM ARCHITECTURE DEPARTMENT CHAIR documented in this encounter Progress Notes * Eldon Koehler MD - 07/05/2010 6:08 PM CST HISTORY OF PRESENT ILLNESS WINIFRED MANEKANWALALFREDO, a 59 y.o. female. HPI Recent lab pend Leg worse pain numb on right On requip for rls doing better Patient Active Problem List Diagnoses Code ??? [...] patient is not nervous/anxious. PHYSICAL EXAM BP 122/80 Wt 275 lb (124.739 kg) Physical Exam Vitals reviewed. Constitutional: She is [...] ??? Osteoarth NOS-unspec ??? Unspecified hypothyroidism ??? Impaired fasting glucose ??? Restless leg syndrome ??? Myalgia and myositis ??? Spinal stenosis . The nature of cardiac risk has [...] patient. PLAN: Orders Placed This Encounter ??? Ct lumbar spine wo contrast ??? Cbc with differential ??? Ck ??? Comprehensive metabolic panel ??? Lipid panel ??? Tsh ??? Vitamin d 25 hydroxy ??? Vitamin b12 level ??? Hemoglobin a1c ??? Hydrocodone-acetaminophen (lortab) 5-500 mg oral tablet ??? Gabapentin (neurontin) 300 mg oral capsule cymbalta 30 try 1 week if wean citalopram ITECTURE DEPARTMENT CHAIR documented in this encounter Plan of Treatment Upcoming Encounters Date Type Department Care Team (Late st Contact Info) Description 07/27/2024 9:40 AM CDT Office Visit [facility] Primary Care [facility] [address] [place] [address] [address] [place] [address] Eldon Koehler MD [address] [facility] [address] [place] [address] Scheduled Orders Name Type Priority Associated Diagnoses Orde r Schedule CT LUMBAR SPINE WO CONTRAST Imaging Routine Spinal stenosis 1 Occurrences starting 07/05/2010 until 07/05/2011 documented as of this encounter Results * HEMOGLOBIN A1C (07/05/2010 2:12 PM ARCHITECTURE DEPARTMENT CHAIR) HEMOGLOBIN A1C 6.0 4.1 - 6.1 % of Hgb [facility] EST. AVG GLUCOSE, A1C 125 mg/dL [facility] Comment: Effective 01/31/09, the reported estimated average glucose (eAG)/mean blood glucose based on the HbA1c determination will be calculated using the recently derived ADAG study equation. ??The eAG from the new ADAG study equation are lower than those calculated from the previously used DCCT study formula. ??For more information, go to the websites: www.ngsp.org and www.diabetes.org. Blood specimen (specimen) 07/05/2010 2:12 PM ARCHITECTURE DEPARTMENT CHAIR 07/05/2010 5:02 PM ARCHITECTURE DEPARTMENT CHAIR Eldon Koehler MD CHEMISTRY ORDERABLES [facility] CLIA# [id number] [address] [place] [address] * VITAMIN B12 LEVEL (07/05/2010 2:12 PM ARCHITECTURE DEPARTMENT CHAIR) VITAMIN B12 475 211 - 946 pg/mL [facility] Comment: It has been reported that between 5 to 10% of patients with values between 200 and 400 pg/mL may experience neuropsychiatric and hematologic abnormalities due to occult B12 deficiency. ??Less than 1% of patients with values above 400 pg/mL will have symptoms. Blood specimen (specimen) 07/05/2010 2:12 PM ARCHITECTURE DEPARTMENT CHAIR 07/05/2010 4:44 PM ARCHITECTURE DEPARTMENT CHAIR Eldon Koehler MD CHEMISTRY ORDERABLES Performing Organization Address [facility] Co de Phone Number [facility] CLIA# [id number] [address] [place] [address] * (ABNORMAL) VITAMIN D 25 HYDROXY (07/05/2010 2:12 PM ARCHITECTURE DEPARTMENT CHAIR) VITAMIN D, 25 OH, D3 19 ng/mL [facility] Comment: 25-OHD3 indicates both endogenous production and supplementation. 25-OHD2 is an indicator of exogenous sources such as diet or supplementation. Therapy is based on measurement of Total 25-OHD, with levels <20 ng/mL indicative of Vitamin D deficiency while levels between 20 ng/mL and 30 ng/mL suggest insufficiency. Optimal levels are >/=30 ng/mL. ? Lab test performed by: [place] [address] [place] [address] PETE SCHMIDT MD,FCAP VITAMIN D, 25 OH, D2 <4 ng/mL [facility] VITAMIN D, 25 OH, TOTAL 19(L) 30 - 100 ng/mL [facility] Blood specimen (specimen) 07/05/2010 2:12 PM ARCHITECTURE DEPARTMENT CHAIR 07/05/2010 4:44 PM ARCHITECTURE DEPARTMENT CHAIR Eldon Koehler MD CHEMISTRY ORDERABLES Performing Organization Address City/[facility] Co de Phone Number [facility] CLIA# [id number] [address] [place] [address] * TSH (07/05/2010 2:12 PM ARCHITECTURE DEPARTMENT CHAIR) Pathologist [facility] TSH 2.74 0.27 - 4.20 uU/mL [facility] Blood specimen (specimen) 07/05/2010 2:12 PM ARCHITECTURE DEPARTMENT CHAIR 07/05/2010 4:44 PM ARCHITECTURE DEPARTMENT CHAIR Eldon Koehler MD CHEMISTRY ORDERABLES Performing Organization Address [facility] Co de Phone Number [facility] CLIA# [id number] [address] [place], [place] [address] * LIPID PANEL (07/05/2010 2:12 PM ARCHITECTURE DEPARTMENT CHAIR) [facility] CHOLESTEROL 176 100 - 199 mg/dL [facility] TRIGLYCERIDE 130 10 - 149 mg/dL [facility] HDL 52 40 - 59 mg/dL [facility] CHOL/HDL RATIO 3.4 2.0 - 5.0 [facility] LDL CALCULATED 98 <=99 mg/dL [facility] LIPID PANEL COMMENT See Below [facility] Comment: The adult ATP and pediatric NCEP classifications for lipids are available on the [facility] Intranet at: [email or web address] Select: Lab General Manual Select: Lipid Panel Interpretation Blood specimen (specimen) 07/05/2010 2:12 PM ARCHITECTURE DEPARTMENT CHAIR 07/05/2010 4:44 PM ARCHITECTURE DEPARTMENT CHAIR Eldon oKehler MD CHEMISTRY ORDERABLES Performing Organization Address City/[facility]/ZIP Co de Phone Number [facility] CLIA# [id number] [address] [place] [address] * (ABNORMAL) COMPREHENSIVE METABOLIC PANEL (07/05/2010 2:12 PM ARCHITECTURE DEPARTMENT CHAIR) SODIUM 141 135 - 145 mmol/L [facility] POTASSIUM 4.2 3.5 - 4.9 mmol/L [facility] CHLORIDE 102 96 - 108 mmol/L [facility] CO2 28 22 - 30 mmol/L [facility] CALCIUM 9.3 8.6 - 10.2 mg/dL [facility] BUN 14 6 - 20 mg/dL [facility] CREATININE 0.78 0.51 - 0.95 mg/dL [facility] GLUCOSE 89 65 - 99 mg/dL [facility] TOTAL PROTEIN 7.2 6.3 - 8.6 g/dL [facility] ALBUMIN 4.2 3.4 - 4.8 g/dL [facility] BILIRUBIN TOTAL 0.3 0.2 - 1.0 mg/dL [facility] ALKALINE PHOSPHATASE 125(H) 35 - 104 U/L [facility] AST 19 12 - 32 U/L [facility] ALT 31 0 - 31 U/L [facility] GFR, >60 >=60 mL/min/1. 7 sq meter [facility] GFR >60 >=60 mL/min/1. 7 sq meter [facility] Comment: Modification of Diet in Renal Disease (MDRD) study formula. Estimated GFR rate interpretative information for both Americans and non- Americans is available on the [facility] Intranet at: [email or web address] Select: Lab Policies and Procedures Select: Reference Ranges - GFR Blood specimen (specimen) 07/05/2010 2:12 PM ARCHITECTURE DEPARTMENT CHAIR 07/05/2010 4:44 PM ARCHITECTURE DEPARTMENT CHAIR Eldon Koehler MD CHEMISTRY ORDERABLES Performing Organization Address City/[facility]/ZIP Co de Phone Number [facility] CLIA# [id number] [address] [place] [address] * CK (07/05/2010 2:12 PM ARCHITECTURE DEPARTMENT CHAIR) Pathologist [facility] CK 42 10 - 145 U/L [facility] Blood specimen (specimen) 07/05/2010 2:12 PM ARCHITECTURE DEPARTMENT CHAIR 07/05/2010 4:44 PM ARCHITECTURE DEPARTMENT CHAIR Eldon Koehler MD CHEMISTRY ORDERABLES Performing Organization Address [facility] Co de Phone Number [facility] CLIA# [id number] [address] [place] [address] * (ABNORMAL) CBC WITH DIFFERENTIAL (07/05/2010 2:12 PM ARCHITECTURE DEPARTMENT CHAIR) [facility] WBC 8.7 4.0 - 9.8 K/uL [facility] RBC 4.67 3.90 - 4.90 M/uL [facility] HEMOGLOBIN 13.5 11.8 - 14.8 g/dL [facility] HEMATOCRIT 43.1 35.5 - 44.0 % [facility] MCV 92.3 82.0 - 99.0 fL [facility] MCH 28.9 27.2 - 32.6 pg [facility] MCHC 31.3(L) 31.5 - 35.5 % [facility] PLATELETS 286 140 - 350 K/uL [facility] MPV 12.1 9.3 - 12.4 fL [facility] RDW 14.5 11.5 - 14.5 % [facility] RDW-STDEV 48.6 37.1 - 48.7 fL [facility] NEUTROPHILS 57 45 - 70 % [facility] LYMPHOCYTES 32 16 - 45 % [facility] MONOCYTES 8 3 - 13 % [facility] EOSINOPHILS 3 0 - 7 % [facility] BASOPHILS 1 0 - 2 % [facility] NEUTROPHIL ABSOLUTE 4.94 1.90 - 7.00 K/uL [facility] LYMPHOCYTE ABSOLUTE 2.73 0.70 - 4.50 K/uL [facility] MONOCYTE ABSOLUTE 0.70 0.10 - 1.30 K/uL [facility] EOSINOPHIL ABSOLUTE 0.26 0.00 - 0.70 K/uL [facility] BASOPHILS ABSOLUTE 0.05 0.00 - 0.20 K/uL [facility] Blood specimen (specimen) 07/05/2010 2:12 PM ARCHITECTURE DEPARTMENT CHAIR 07/05/2010 5:02 PM ARCHITECTURE DEPARTMENT CHAIR Eldon Koehler MD HEMATOLOGY ORDERABLE S [facility] CLIA# [id number] [address] [facility] [place] [address] documented in this encounter Visit Diagnoses Diagnosis Other and unspecified hyperlipidemia Depressive disorder, not elsewhere classified Osteoarthrosis, unspecified whether generalized or localized, unspecified site Unspecified hypothyroidism Impaired fasting glucose Restless leg syndrome Restless legs syndrome (RLS) Myalgia and myositis Mylagia and myositis, unspecified Spinal stenosis Spinal stenosis, unspecified region other than cervical Myalgia and myositis Mylagia and myositis, unspecified Other and unspecified hyperlipidemia Unspecified hypothyroidism Impaired fasting glucose documented in this encounter Care Teams Software Intern Relationship Specialty Start Date End Date Eldon Koehler MD PCP - General 10/06/07 documented as of this encounter
--- OUTSIDE RECORDS SUMMARY | 2024-05-22 17:04 | XMS_ITS | Encounter Summary ---
Author Organization [facility] Address [address] [place] [address] Care Team Providers Care Rigging Loft Mechanic Name Role Phone Eldon Koehler MD Primary Care Provider [phone] Reason for Visit * Reason Comments Cholesterol Problem Encounter Details Date Type Department Care Team (Latest Contact Info) Description 2011 4:30 PM CDT Office Visit [facility] Internal Medicine [address] [address] Eldon Koehler MD [address] [place] [address] HYPERLIPIDEMIA NEC/NOS; DEPRESSIVE DISORDER NEC; HYPOTHYROIDISM NOS; Unspecified asthma; Impaired fasting glucose; Menopause Social History Tobacco Use Types Packs/Day Years [...] Reading Time Taken Comments Blood Pressure 120/90 2011 4:52 PM CDT Pulse - - Temperature - - Respiratory Rate - - Oxygen Saturation - - Inhaled Oxygen Concentration - - Weight 129.7 kg (286 lb) 2011 4:52 PM CDT Height 167.6 cm (5' 6 ) 2011 4:52 PM CDT Body Mass Index 46.16 2011 4:52 PM CDT documented in this encounter Progress Notes * Eldon Koehler MD - 2011 5:54 PM CDT HISTORY OF PRESENT ILLNESS Winifred Rodriguez, a 60 y.o. female. HPI Headaches better Did not vickie mri Better with improving stress Recent lab recviwed Inc chol Borderline alk phos tsh borderline Patient Active Problem List Diagnoses Code ??? [...] 120/90, height 5' 6 (1.676 m), weight 286 lb (129.729 kg). General appearance: healthy appearing, active, alert, [...] rigidity, cranial nerves II through XII intact, Mood better Encounter Diagnoses Name Primary? HYPERLIPIDEMIA NEC/NOS ??? DEPRESSIVE DISORDER NEC ??? HYPOTHYROIDISM NOS ??? Unspecified asthma ??? Impaired fasting glucose ??? Menopause . Stress reviewed, cont med The nature of cardiac risk has [...] the patient. Diet reviewed Gluc issues, reviewed Inc thyroid dose PLAN: Orders Placed This Encounter ??? XR DEXA BONE DENSITY AXIAL 1 OR MORE SITES ??? CK ??? CBC WITH DIFFERENTIAL ??? COMPREHENSIVE METABOLIC PANEL ??? LIPID PANEL ??? TSH ??? HEMOGLOBIN A1C ??? levothyroxine (SYNTHROID) 112 mcg Oral tablet documented in this encounter Plan of Treatment Upcoming Encounters Date Type Department Care Team (Late st Contact Info) Description 07/27/2024 9:40 AM CDT Office Visit [facility] [address] [place] [address] Eldon Koehler MD [address] [place] [address] [address] [place] [address] documented as of this encounter Visit Diagnoses Diagnosis HYPERLIPIDEMIA NEC/NOS Other and unspecified hyperlipidemia DEPRESSIVE DISORDER NEC Depressive disorder, not elsewhere classified HYPOTHYROIDISM NOS Unspecified hypothyroidism Unspecified asthma(493.90) Unspecified asthma Impaired fasting glucose Menopause Symptomatic menopausal or female climacteric states documented in this encounter Care Teams Rigging Loft Mechanic Relationship Specialty Start Date End Date Eldon Koehler MD PCP - General 10/06/07 documented as of this encounter
--- OUTSIDE RECORDS SUMMARY | 2024-05-22 17:04 | XMS_ITS | Encounter Summary ---
Author Organization [facility] Address [address] [place] [address] Care Team Providers Care Conversion Man Name Role Phone Eldon Koehler MD Primary Care Provider [phone] Reason for Referral * Consultation (2-4 Days) - Closed Specialty Diagnoses / Procedures Referred By Contdorian t Referred To Contact Orthopedic Surgery Diagnoses Osteoarthrosis, unspecified whether generalized or localized, unspecified site Eldon Koehler MD [address] [place] [phone] Referral ID Status Reason Start Date Expiration Date V isits Requested Visits Authorized [id number] Closed Ordering Dept To Review (STL) 06/15/2010 06/15/2011 1 1 NTAMINATOR Reason for Visit * Reason Comments Knee Pain Left knee Encounter Details Date Type Department Care Team (Late st Contact Info) Description 06/15/2010 1:00 PM DECONTAMINATOR Office Visit [facility] Internal Medicine [address] [address] Eldon Koehler MD [address] [place] [address] [address] [place] [address] Osteoarth NOS-unspec; Unspecified asthma Social History Tobacco Use Types Packs/Day [...] Sign Reading Time Taken Comments Blood Pressure 142/78 06/15/2010 1:06 PM DECONTAMINATOR Pulse - - Temperature - - Respiratory Rate - - Oxygen Saturation - - Inhaled Oxygen Concentration - - Weight 125.2 kg (276 lb) 06/15/2010 1:06 PM DECONTAMINATOR Height 167 cm (5' 5.75 ) 06/15/2010 1:06 PM DECONTAMINATOR Body Mass Index 44.89 06/15/2010 1:06 PM DECONTAMINATOR documented in this encounter Progress Notes * Eldon Koehler MD - 06/15/2010 4:55 PM CST Knee pain severe diffic walking Hurts to bend Injury with walking more recent? No edema On celebrex and vicodin The patient appears alert, well appearing, and in no distress.- ENT exam normal, no neck nodes or sinus tenderness., Chest:few exp wheeze ,symmetric air entry. Heart sounds are normal. Abdomen soft, nontender, no masses or organomegaly. ASSESSMENT: Encounter Diagnoses Name Primary? Osteoarth NOS-unspec ??? Unspecified asthma PLAN: Orders Placed This Encounter ??? Amb referral to orthopedic surgery advair 250 given NTAMINATOR documented in this encounter Plan of Treatment Upcoming Encounters Date Type Department Care Team (Late st Contact Info) Description 07/27/2024 9:40 AM CDT Office Visit [facility] Primary Care [address] [place] [address] Eldon Koehler MD [address] [place] [address] [address] [place] [address] Scheduled Referrals Name Type Priority Associated Diagnoses Order Schedule AMB REFERRAL TO ORTHOPEDIC SURGERY Outpatient Referral Routine Osteoarth NOS-unspec Ordered: 06/15/2010 documented as of this encounter Visit Diagnoses Diagnosis Osteoarthrosis, unspecified whether generalized or localized, unspecified site Unspecified asthma(493.90) Unspecified asthma documented in this encounter Care Teams Conversion Man Relationship Specialty Start Date End Date Eldon Koehler MD PCP - General 10/06/07 documented as of this encounter
--- OUTSIDE RECORDS SUMMARY | 2024-05-22 17:04 | XMS_ITS | Encounter Summary ---
Author Organization [facility] Address [address] [place] [address] Care Team Providers Care Tag Clerk Name Role Phone Eldon Koehler MD Primary Care Provider Reason for Visit * Reason Onset Date Comments Results 07/17/2010 Encounter Details Date Type Department Care Team (Late st Contact Info) Description 07/17/2010 Telephone [facility] Internal Medicine [address] [address] Eldon Koehler MD [address] [place] [address] Results Social History Tobacco Use Types [...] * Telephone Encounter - David Pope - 07/17/2010 4:04 PM CST Pt called requesting lab from todays ct scan. i faxed it to her RETE FINISHING MACHINE OPERATOR documented in this encounter Plan of Treatment Upcoming Encounters Date Type Department Care Team (Late st Contact Info) Description 07/27/2024 9:40 AM CDT Office Visit [facility] Primary Care [facility] [address] [place] [address] [address] [place] [address] Eldon Koehler MD [address] [place] [address] [address] [place] [address] documented as of this encounter Visit Diagnoses Not on filedocumented in this encounter Care Teams Tag Clerk Relationship Specialty Start Date End Date Eldon Koehler MD PCP - General 10/06/07 documented as of this encounter
--- OUTSIDE RECORDS SUMMARY | 2024-05-22 17:04 | XMS_ITS | Encounter Summary ---
Author Organization [facility] Address [address] [place] [address] Care Team Providers Care Scheduling Analyst Name Role Phone Eldon Koehler MD Primary Care Provider [phone] Encounter Details Date Type Department Care Team (Latest Contact Info) Description 11/30/2010 Abstract [facility] ABSTRACTION Eldon Koehler MD [address] [place] [address] [address] [place] [address] Social History Tobacco Use Types [...] Visit [facility] Primary Care [address] [place] [address] Eldon Koehler MD [address] [place] [address] [address] [place] [address] documented as of this encounter Visit Diagnoses Not on filedocumented in this encounter Care Teams Scheduling Analyst Relationship Specialty Start Date End Date Eldon Koehler MD PCP - General 10/06/07 documented as of this encounter
--- OUTSIDE RECORDS SUMMARY | 2024-05-22 17:04 | XMS_ITS | Encounter Summary ---
Author Organization [facility] Address [address] [place] [address] Care Team Providers Care Truck Driver Supervisor Name Role Phone Eldon Koehler MD Primary Care Provider [phone] Reason for Visit * Reason Onset Date Comments Medication Refill 04/16/2011 Encounter Details Date Type Department Care Team (Late st Contact Info) Description 04/16/2011 Refill [facility] Internal Medicine [address] [phone] Eldon Koehler MD [address] [place] [address] Social History Tobacco Use Types Packs/Day [...] * Telephone Encounter - Mitra Ward - 04/16/2011 4:29 PM CST Called pharm auto line. SFER STATION ATTENDANT documented in this encounter Plan of Treatment Upcoming Encounters Date Type Department Care Team (Late st Contact Info) Description 07/27/2024 9:40 AM CDT Office Visit [facility] Primary Care [address] [place] [address] Eldon Koehler MD [address] [place] [address] [address] [place] [address] documented as of this encounter Visit Diagnoses Not on filedocumented in this encounter Care Teams Truck Driver Supervisor Relationship Specialty Start Date End Date Eldon Koehler MD PCP - General 10/06/07 documented as of this encounter
--- OUTSIDE RECORDS SUMMARY | 2024-05-22 17:04 | XMS_ITS | Encounter Summary ---
Author Organization [facility] Address [address] [place] [address] Care Team Providers Care Block Cleaner Name Role Phone Eldon Koehler MD Primary Care Provider [phone] Reason for Visit * Reason Comments Medication Refill Encounter Details Date Type Department Care Team (Late st Contact Info) Description 07/15/2012 Refill [facility] Internal Medicine [address] [address] Eldon Koehler MD [address] [place] [address] [address] [place] [address] Social History Tobacco Use Types [...] [facility] Primary Care [address] [place] [address] Eldon Koehler MD [address] [place] [address] [address] [place] [address] documented as of this encounter Visit Diagnoses Not on filedocumented in this encounter Care Teams Block Cleaner Relationship Specialty Start Date End Date Eldon Koehler MD PCP - General 10/06/07 documented as of this encounter
--- OUTSIDE RECORDS SUMMARY | 2024-05-22 17:04 | XMS_ITS | Encounter Summary ---
Author Organization [facility] Address [address] [place] [address] Care Team Providers Care Retail Operations Specialist Name Role Phone Eldon Koehler MD Primary Care Provider [phone] Reason for Visit * Reason Onset Date Comments Medication Refill 10/02/2011 Encounter Details Date Type Department Care Team (Late st Contact Info) Description 10/02/2011 Refill [facility] [address] [address] Eldon Koehler MD [address] [place] [address] [address] [place] [address] Social History Tobacco Use Types [...] CDT Office Visit [facility] [address] [place] [address] Eldon Koehler MD [address] [place] [address] [address] [place] [address] documented as of this encounter Visit Diagnoses Not on filedocumented in this encounter Care Teams Retail Operations Specialist Relationship Specialty Start Date End Date Eldon Koehler MD PCP - General 10/06/07 documented as of this encounter
--- OUTSIDE RECORDS SUMMARY | 2024-05-22 17:04 | XMS_ITS | Encounter Summary ---
Author Organization [facility] Address [address] [place] [address] Care Team Providers Care Steam Setter Name Role Phone Eldon Koehler MD Primary Care Provider [phone] Reason for Visit * Reason Onset Date Comments Medication Review 04/02/2011 Encounter Details Date Type Department Care Team (Late st Contact Info) Description 04/02/2011 Telephone [facility] Internal Medicine [address] [address] Eldon Koehler MD [address] [place] [address] Medication Review Social History Tobacco Use [...] * Telephone Encounter - Jacqueline Andrade - 04/02/2011 12:43 PM CST Pt states she is on the 20 mg she was getting the 80 mg for insurance purposes DESK ANALYST * Telephone Encounter - Eldon Koehler MD - 04/02/2011 11:44 AM CST Ask pt DESK ANALYST * Telephone Encounter - Jacqueline Andrade - 04/02/2011 11:33 AM CST Pharmacy requesting Lipitor 80 mg 1/2 tab daily, med list states she's on 20 mg daily DESK ANALYST documented in this encounter Plan of Treatment Upcoming Encounters Date Type Department Care Team (Late st Contact Info) Description 07/27/2024 9:40 AM CDT Office Visit [facility] Primary Care [address] [place] [address] Eldon Koehler MD [address] [place] [address] documented as of this encounter Visit Diagnoses Not on filedocumented in this encounter Care Teams Steam Setter Relationship Specialty Start Date End Date Eldon Koehler MD PCP - General 10/06/07 documented as of this encounter
--- OUTSIDE RECORDS SUMMARY | 2024-05-22 17:04 | XMS_ITS | Encounter Summary ---
Author Organization [facility] Address [address] [place] [address] Care Team Providers Care Commercial Green Building Designer Name Role Phone Eldon Koehler MD Primary Care Provider [phone] Reason for Visit * Reason Comments Upper Respiratory Symptoms Encounter Details Date Type Department Care Team (Late st Contact Info) Description 03/11/2012 1:30 PM CDT Office Visit [facility] Internal Medicine [address] [address] Eldon Koehler MD [address] [place] [address] Acute bronchitis; Cough; Asthma Social History Tobacco Use Types Packs/Day [...] Sign Reading Time Taken Comments Blood Pressure 160/80 03/11/2012 1:26 PM CDT Pulse - - Temperature 36.8 ??C (98.3 ??F) 03/11/2012 1:26 PM CD T Respiratory Rate - - Oxygen Saturation - - Inhaled Oxygen Concentration - - Weight 131.1 kg (289 lb) 03/11/2012 1:26 PM CDT Height - - Body Mass Index 46.65 02/21/2012 3:20 PM CDT documented in this encounter Progress Notes * Eldon Koehler MD - 03/11/2012 5:59 PM CDT No improvement cough kendrick, did not vickie steroids Wheezing on and off No fever noted The patient appears alert, well appearing, and in no distress.- ENT exam af level tms, op with erythemaorma Chest fCTA, no ralesy. Heart sounds are normal. Abdomen soft, nontender, no masses or organomegaly. ASSESSMENT: Encounter Diagnoses Name Primary? Acute bronchitis ??? Cough ??? Asthma Risk of side effects of antibiotics reviewed, call if diarrhea rash, facial swelling or other. PLAN: Orders Placed This Encounter ??? XR CHEST PA AND LATERAL ??? benzonatate (TESSALON) 200 mg Oral capsule ??? montelukast (SINGULAIR) 10 mg Oral tablet ??? DULoxetine (CYMBALTA) 30 mg Oral CpDR ??? azithromycin (ZITHROMAX) 250 mg Oral tablet documented in this encounter Plan of Treatment Upcoming Encounters Date Type Department Care Team (Late st Contact Info) Description 07/27/2024 9:40 AM CDT Office Visit [facility] [address] [place] [address] Eldon Koehler MD [address] [place] [address] [address] [place] [address] documented as of this encounter Results * XR CHEST PA [...] this encounter Visit Diagnoses Diagnosis Acute bronchitis Cough Asthma Unspecified asthma Acute bronchitis documented in this encounter Care Teams Commercial Green Building Designer Relationship Specialty Start Date End Date Eldon Koehler MD PCP - General 10/06/07 documented as of this encounter
--- OUTSIDE RECORDS SUMMARY | 2024-05-22 17:04 | XMS_ITS | Encounter Summary ---
Author Organization [facility] Address [address] [place] [address] Care Team Providers Care Rehabilitation Nurse Name Role Phone Eldon Koehler MD Primary Care Provider [phone] Encounter Details Date Type Department Care Team (Latest Contact Info) Description 08/20/2010 Abstract [facility] ABSTRACTION Eldon Koehler MD [address] [place] [address] [address] [place] [address] Social History Tobacco Use Types [...] [facility] Primary Care [address] [place] [address] Eldon Koehler MD [address] [place] [address] [address] [place] [address] documented as of this encounter Visit Diagnoses Not on filedocumented in this encounter Care Teams Rehabilitation Nurse Relationship Specialty Start Date End Date Eldon Koehler MD PCP - General 10/06/07 documented as of this encounter
--- OUTSIDE RECORDS SUMMARY | 2024-05-22 17:04 | XMS_ITS | Encounter Summary ---
Author Organization [facility] Address [address] [place] [address] Care Team Providers Care Principal Product Manager Name Role Phone Eldon Koehler MD Primary Care Provider [phone] Reason for Visit * Reason Comments Rash Encounter Details Date Type Department Care Team (Late st Contact Info) Description 06/10/2011 3:00 PM SURVIVAL SPECIALIST Office Visit [facility] Internal Medicine [address] [address] Eldon Koehler MD [address] [place] [address] Headache; Shingles; Adjustment reaction; Abnormal glucose; Memory change; RLS (restless legs syndrome); Hyperlipidemia Social History Tobacco Use Types Packs/Day [...] Reading Time Taken Comments Blood Pressure 120/90 06/10/2011 3:10 PM SURVIVAL SPECIALIST Pulse - - Temperature - - Respiratory Rate - - Oxygen Saturation - - Inhaled Oxygen Concentration - - Weight 130.2 kg (287 lb) 06/10/2011 3:10 PM SURVIVAL SPECIALIST Height 167.6 cm (5' 6 ) 06/10/2011 3:10 PM SURVIVAL SPECIALIST Body Mass Index 46.32 06/10/2011 3:10 PM SURVIVAL SPECIALIST documented in this encounter Progress Notes * Eldon Koehler MD - 06/10/2011 5:26 PM CST HISTORY OF PRESENT ILLNESS Winifred Rodriguez, a 60 y.o. female. HPI Severe headaches 2 weeks Unusual for her Memory worse This am with rash pain right outer thigh Inc stress with work load at work Patient Active Problem List Diagnoses Code [...] thigh Lymphatics: No focal or generalized lymphadenopathy. Neurological exam reveals alert, oriented, normal speech, no focal findings or movement disorder noted, neck supple without rigidity, cranial nerves II through XII intact, , motor and sensory grosslynormal bilaterally, normal muscle tone, no tremors, strength 5/5.slight dec sens Encounter Diagnoses Name Primary? Headache ??? Shingles ??? Adjustment reaction ??? Abnormal glucose ??? Memory change ??? RLS (restless legs syndrome) ??? Hyperlipidemia . Stress reviewed, cont med Check mri headaches concerning rx shingles Short fu PLAN: Orders Placed This Encounter ??? MRI BRAIN WO CONTRAST ??? CBC WITH DIFFERENTIAL ??? CK ??? COMPREHENSIVE METABOLIC PANEL ??? HEMOGLOBIN A1C ??? LIPID PANEL ??? VITAMIN B12 LEVEL ??? VITAMIN D 25 HYDROXY ??? TSH ??? valacyclovir (VALTREX) 1 g Oral tablet ??? silver sulfADIAZINE (SILVADENE) 1 % Topical Crea ??? levothyroxine (SYNTHROID) 100 mcg Oral tablet IVAL SPECIALIST documented in this encounter Plan of Treatment Upcoming Encounters Date Type Department Care Team (Late st Contact Info) Description 07/27/2024 9:40 AM CDT Office Visit [facility] Primary Care [address] [place] [address] Eldon Koehler MD [address] [place] [address] [address] [place] [address] documented as of this encounter Visit Diagnoses Diagnosis Headache(784.0) Headache Shingles Herpes zoster without mention of complication Adjustment reaction Unspecified adjustment reaction Abnormal glucose Other abnormal glucose Memory change Memory loss RLS (restless legs syndrome) Restless legs syndrome (RLS) Hyperlipidemia Other and unspecified hyperlipidemia documented in this encounter Care Teams Principal Product Manager Relationship Specialty Start Date End Date Eldon Koehler MD PCP - General 10/06/07 documented as of this encounter
--- OUTSIDE RECORDS SUMMARY | 2024-05-22 17:04 | XMS_ITS | Encounter Summary ---
Author Organization [facility] Address [address] [place] [address] Care Team Providers Care Investment Accounting Clerk Name Role Phone Eldon Koehler MD Primary Care Provider [phone] Reason for Visit * Reason Onset Date Comments Medication Review 04/09/2011 prior auth Encounter Details Date Type Department Care Team (Late st Contact Info) Description 04/09/2011 Telephone [facility] Internal Medicine [address] [address] Eldon Koehler MD [address] [place] [address] Medication Review (prior auth ) Social History Tobacco Use Types Packs/Day [...] * Telephone Encounter - Iliana Mike - 04/17/2011 4:05 PM CST Insurance sent form Lipitor is approved for as along she keeps same insurance ING INSPECTOR * Telephone Encounter - Jacqueline Andrade - 04/17/2011 10:08 AM CST Faxed form to ins ING INSPECTOR * Telephone Encounter - Jacqueline Andrade - 04/16/2011 2:44 PM CST Called ins faxing form ING INSPECTOR * Telephone Encounter - Martha Plata - 04/09/2011 2:33 PM CST Lipitor requires prior auth Ph ING INSPECTOR documented in this encounter Plan of Treatment Upcoming Encounters Date Type Department Care Team (Late st Contact Info) Description 07/27/2024 9:40 AM CDT Office Visit [facility] Primary Care [address] [phone] Eldon Koehler MD [address] [place] [phone] documented as of this encounter Visit Diagnoses Not on filedocumented in this encounter Care Teams Investment Accounting Clerk Relationship Specialty Start Date End Date Eldon Koehler MD PCP - General 10/06/07 documented as of this encounter
--- OUTSIDE RECORDS SUMMARY | 2024-05-22 17:04 | XMS_ITS | Encounter Summary ---
Author Organization [facility] Address [address] [place] [address] Care Team Providers Care Channel Partners Name Role Phone Eldon Koehler MD Primary Care Provider [phone] Reason for Visit * Reason Onset Date Comments Other 12/15/2012 Encounter Details Date Type Department Care Team (Late Contact Info) Description 12/15/2012 Telephone [facility] Internal Medicine [address] [address] Eldon Koehler MD [address] [place] [address] Other Social History Tobacco Use Types [...] * Telephone Encounter - Mitra Ward - 12/15/2012 9:42 AM CDT Pt called & lm on voice mail yesterday. Called back today & lm. documented in this encounter Plan of Treatment Upcoming Encounters Date Type Department Care Team (Late st Contact Info) Description 07/27/2024 9:40 AM CDT Office Visit [facility] Primary Care [address] [place] [address] Eldon Koehler MD [address] [place] [address] [address] [place] [address] documented as of this encounter Visit Diagnoses Not on filedocumented in this encounter Care Teams Channel Partners Relationship Specialty Start Date End Date Eldon Koehler MD PCP - General 10/06/07 documented as of this encounter
--- OUTSIDE RECORDS SUMMARY | 2024-05-22 17:04 | XMS_ITS | Encounter Summary ---
Author Organization [facility] Address [address] [place] [address] Care Team Providers Care Special Delivery Worker Name Role Phone Eldon Koehler MD Primary Care Provider [phone] Reason for Visit * Reason Comments Cholesterol Problem Hypothyroid Encounter Details Date Type Department Care Team (Latest Contact Info) Description 04/09/2011 12:00 PM STATION INSTALLATION SUPERVISOR Office Visit [facility] Internal Medicine [address] [address] Eldon Koehler MD [address] [place] [address] HYPERLIPIDEMIA NEC/NOS (Primary Dx); DEPRESSIVE DISORDER NEC; OSTEOARTHROS NOS-UNSPEC; HYPOTHYROIDISM NOS; Impaired fasting glucose; Restless leg syndrome; Vitamin D deficiency; Other screening mammogram Social History Tobacco Use [...] Reading Time Taken Comments Blood Pressure 120/90 04/09/2011 12:17 PM STATION INSTALLATION SUPERVISOR Pulse - - Temperature - - Respiratory Rate - - Oxygen Saturation - - Inhaled Oxygen Concentration - - Weight 128.4 kg (283 lb) 04/09/2011 12:16 PM STATION INSTALLATION SUPERVISOR Height 167.6 cm (5' 6 ) 04/09/2011 12:17 PM STATION INSTALLATION SUPERVISOR Body Mass Index 45.68 04/09/2011 12:16 PM STATION INSTALLATION SUPERVISOR documented in this encounter Progress Notes * Eldon Koehler MD - 04/09/2011 12:34 PM CST HISTORY OF PRESENT ILLNESS Winifred Rodriguez, a 60 y.o. female. HPI Recent lab reviewedchol better Back still doing ok Pt feels memory ok No focal complaints Recent lab reviewed,s Patient Active Problem List Diagnoses ??? HYPERLIPIDEMIA NEC/NOS ??? DEPRESSIVE DISORDER NEC ??? OSTEOARTHROS NOS-UNSPEC ??? HYPOTHYROIDISM NOS ??? Headache ??? Unspecified Backache ??? Unspecified Asthma ??? Unspecified Sleep Apnea ??? Impaired Fasting Glucose ??? Restless Leg Syndrome History Social History ??? Marital Status: Spouse [...] 120/90, height 5' 6 (1.676 m), weight 283 lb (128.368 kg). General appearance: healthy appearing, active, alert, [...] Lat lright thigh Encounter Diagnoses Name Primary? HYPERLIPIDEMIA NEC/NOS Yes ??? DEPRESSIVE DISORDER NEC ??? OSTEOARTHROS NOS-UNSPEC ??? HYPOTHYROIDISM NOS ??? Impaired fasting glucose ??? Restless leg syndrome ??? Vitamin D deficiency ??? Other screening mammogram . The nature of cardiac risk has [...] diet has been given to the patient. compliance with thyroid reviewed Discussed cannot r/o small cva or other, pt wants to wait on MRI head until fu, discussed Cont depn med Cont requip for now inc if needed reassess c PLAN: Orders Placed This Encounter ??? MAMMO DIGITAL SCREEN BILAT ??? CBC WITH DIFFERENTIAL ??? CK ??? LIPID PANEL ??? TSH ??? COMPREHENSIVE METABOLIC PANEL ??? VITAMIN B12 ??? VITAMIN D 25 HYDROXY ION INSTALLATION SUPERVISOR documented in this encounter Plan of Treatment Upcoming Encounters Date Type Department Care Team (Late st Contact Info) Description 07/27/2024 9:40 AM CDT Office Visit [facility] [address] [place] [address] [address] [place] [phone] Eldon Koehler MD [address] [facility] [place] [address] [place] [phone] documented as of this encounter Visit Diagnoses Diagnosis HYPERLIPIDEMIA NEC/NOS- Primary Other and unspecified hyperlipidemia DEPRESSIVE DISORDER NEC Depressive disorder, not elsewhere classified OSTEOARTHROS NOS-UNSPEC Osteoarthrosis, unspecified whether generalized or localized, unspecified site HYPOTHYROIDISM NOS Unspecified hypothyroidism Impaired fasting glucose Restless leg syndrome Restless legs syndrome (RLS) Vitamin D deficiency Unspecified vitamin D deficiency Other screening mammogram documented in this encounter Care Teams Special Delivery Worker Relationship Specialty Start Date End Date Eldon Koehler MD PCP - General 10/06/07 documented as of this encounter
--- OUTSIDE RECORDS SUMMARY | 2024-05-22 17:04 | XMS_ITS | Encounter Summary ---
Author Organization [facility] Address [address] [place] [address] Care Team Providers Care Academic Affairs Assistant Name Role Phone Eldon Koehler MD Primary Care Provider [phone] Reason for Visit * Reason Onset Date Comments Medication Refill 06/10/2011 Encounter Details Date Type Department Care Team (Late st Contact Info) Description 06/10/2011 Refill [facility] Internal Medicine [address] [address] Eldon Koehler MD [address] [place] [address] [address] [place] [address] Social History Tobacco Use Types [...] Visit [facility] Primary Care [address] [place] [address] Eldon Koehler MD [address] [place] [address] [address] [place] [address] documented as of this encounter Visit Diagnoses Not on filedocumented in this encounter Care Teams Academic Affairs Assistant Relationship Specialty Start Date End Date Eldon Koehler MD PCP - General 10/06/07 documented as of this encounter
--- OUTSIDE RECORDS SUMMARY | 2024-05-22 17:04 | XMS_ITS | Encounter Summary ---
Author Organization [facility] Address [address] [place] [address] Care Team Providers Care Advertising Account Executive Name Role Phone Eldon Koehler MD Primary Care Provider Reason for Visit * Reason Onset Date Comments Erroneous encounter-disregard 07/15/2012 Encounter Details Date Type Department Care Team (Late st Contact Info) Description 07/15/2012 Refill [facility] Internal Medicine [address] [address] Eldon Koehler MD [address] [place] [address] [address] [place] [address] Social History Tobacco Use Types [...] Visit [facility] Primary Care [address] [place] [address] Eldon Koehler MD [address] [place] [address] [address] [place] [address] documented as of this encounter Visit Diagnoses Not on filedocumented in this encounter Care Teams Advertising Account Executive Relationship Specialty Start Date End Date Eldon Koehler MD PCP - General 10/06/07 documented as of this encounter
--- OUTSIDE RECORDS SUMMARY | 2024-05-22 17:04 | XMS_ITS | Encounter Summary ---
Author Organization [facility] Address [address] [place] [address] Care Team Providers Care Line Manager Name Role Phone Eldon Koehler MD Primary Care Provider [phone] Reason for Visit * Reason Onset Date Comments Medication Question 10/08/2012 Encounter Details Date Type Department Care Team (Late st Contact Info) Description 10/08/2012 Telephone [facility] Internal Medicine [address] [address] Eldon Koehler MD [address] [place] [address] Medication Question Social History Tobacco Use Types Packs/Day [...] * Telephone Encounter - David Pope - 10/08/2012 4:55 PM CDT Spoke with pharm, med filled and sent to pt. * Telephone Encounter - Eldon Koehler MD - 10/08/2012 4:38 PM CDT Ok john * Telephone Encounter - David Pope - 10/08/2012 1:27 PM CDT Same directions/dose, # 90 4 refills. * Telephone Encounter - David Pope - 10/08/2012 1:26 PM CDT Pharm sent fax requesting Omeprazole caps instead of the tabs. Ins won't pay for the tabs since it is OTC. documented in this encounter Plan of Treatment Upcoming Encounters Date Type Department Care Team (Late st Contact Info) Description 07/27/2024 9:40 AM CDT Office Visit [facility] Primary Care [address] [place] [address] Eldon Koehler MD [address] [place] [address] [address] [place] [phone] documented as of this encounter Visit Diagnoses Not on filedocumented in this encounter Care Teams Line Manager Relationship Specialty Start Date End Date Eldon Koehler MD PCP - General 10/06/07 documented as of this encounter
--- OUTSIDE RECORDS SUMMARY | 2024-05-22 17:04 | XMS_ITS | Encounter Summary ---
Author Organization [facility] Address [address] [place] [address] Care Team Providers Care Clerical Coordinator Name Role Phone Eldon Koehler MD Primary Care Provider [phone] Reason for Visit * Reason Onset Date Comments Medication Refill 03/11/2011 Encounter Details Date Type Department Care Team (Late st Contact Info) Description 03/11/2011 Refill [facility] Internal Medicine [address] [phone] Eldon Koehler MD [address] [place] [address] [address] [place] [address] Social History Tobacco Use Types [...] [facility] Primary Care [address] [place] [address] Eldon Koehler MD [address] [place] [address] [address] [place] [address] documented as of this encounter Visit Diagnoses Not on filedocumented in this encounter Care Teams Clerical Coordinator Relationship Specialty Start Date End Date Eldon Koehler MD PCP - General 10/06/07 documented as of this encounter
--- OUTSIDE RECORDS SUMMARY | 2024-05-22 17:04 | XMS_ITS | Encounter Summary ---
Author Organization [facility] Address [address] [place] [address] Care Team Providers Care User Experience Designer Name Role Phone Eldon Koehler MD Primary Care Provider [phone] Reason for Visit * Reason Comments Cough wheezing, started ye sterday am with a sore throat Encounter Details Date Type Department Care Team (Late st Contact Info) Description 02/21/2012 2:30 PM CDT Office Visit [facility] Internal Medicine [address] [address] Eldon Koehler MD [address] [place] [address] Acute bronchitis; Acute sinusitis Social History Tobacco Use Types Packs/Day [...] Sign Reading Time Taken Comments Blood Pressure 120/72 02/21/2012 3:20 PM CDT Pulse - - Temperature 37.1 ??C (98.7 ??F) 02/21/2012 3:20 PM CD T Respiratory Rate - - Oxygen Saturation - - Inhaled Oxygen Concentration - - Weight 131.5 kg (290 lb) 02/21/2012 3:20 PM CDT Height 167.6 cm (5' 6 ) 02/21/2012 3:20 PM CDT Body Mass Index 46.81 02/21/2012 3:20 PM CDT documented in this encounter Progress Notes * Eldon Koehler MD - 02/21/2012 4:18 PM CDT 2d sinus kendrick cough kendrick now with wheeze No fever noted The patient appears alert, well appearing, and in no distress.- ENT exam af level tms, op with erythemaorma Chest few exp wheeze, no ralesy. Heart sounds are normal. Abdomen soft, nontender, no masses or organomegaly. ASSESSMENT: Encounter Diagnoses Name Primary? Acute bronchitis ??? Acute sinusitis Risk of levaquin including tendon rupture or severe skin reaction, stop medicine and call if diarrhea, rash, facial swelling or other. PLAN: Orders Placed This Encounter ??? levofloxacin (LEVAQUIN) 500 mg Oral tablet ??? methylPREDNISolone (MEDROL DOSPACK) 4 mg Oral DsPk ??? albuterol 90 mcg/Actuation Inhalation HFAA inhaler documented in this encounter Plan of Treatment Upcoming Encounters Date Type Department Care Team (Late st Contact Info) Description 07/27/2024 9:40 AM CDT Office Visit [facility] Primary Care [address] [place] [phone] Eldon Koehler MD [address] [place] [address] [address] [place] [phone] documented as of this encounter Visit Diagnoses Diagnosis Acute bronchitis Acute sinusitis Acute sinusitis, unspecified documented in this encounter Care Teams User Experience Designer Relationship Specialty Start Date End Date Eldon Koehler MD PCP - General 10/06/07 documented as of this encounter
--- OUTSIDE RECORDS SUMMARY | 2024-05-22 17:04 | XMS_ITS | Encounter Summary ---
Author Organization [facility] Address [address] [place] [address] Care Team Providers Care Steel Engraver Name Role Phone Eldon Koehler MD Primary Care Provider [phone] Reason for Visit * Reason Onset Date Comments Medication Refill 04/21/2012 Encounter Details Date Type Department Care Team (Late st Contact Info) Description 04/21/2012 Refill [facility] Internal Medicine [address] [phone] Eldon Koehler MD [address] [place] [address] [address] [place] [address] Social History Tobacco Use Types [...] 07/27/2024 9:40 AM CDT Office Visit [facility] Primary Care [address] [place] [address] Eldon Koehler MD [address] [place] [address] [address] [place] [address] documented as of this encounter Procedures Procedure Name Priority Date/Time Associated Diagnosis Comments CBC WITH DIFFERENTIAL Routine 04/27/2012 7:51 AM SAP BUSINESS INTELLIGENCE CONSULTANT TSH Routine 04/27/2012 7:51 AM SAP BUSINESS INTELLIGENCE CONSULTANT HEMOGLOBIN A1C Routine 04/27/2012 7:51 AM SAP BUSINESS INTELLIGENCE CONSULTANT LIPID PANEL Routine 04/27/2012 7:51 AM SAP BUSINESS INTELLIGENCE CONSULTANT COMPREHENSIVE METABOLIC PANEL Routine 04/27/2012 7:51 AM SAP BUSINESS INTELLIGENCE CONSULTANT documented in this encounter Results * (ABNORMAL) COMPREHENSIVE METABOLIC PANEL (04/27/2012 7:51 AM SAP BUSINESS INTELLIGENCE CONSULTANT) GLUCOSE 106(H) 65 - 99 mg/dL [facility] Comment:Fasting reference in terval BUN 14 7 - 25 mg/dL [facility] CREATININE 0.87 0.50 - 1.05 mg/dL [facility] Comment: For patients >49 years of age, the reference limit for Creatinine is approximately 13% higher for people identified as -[place]amo[place]. GFR 73 > OR = 60 mL/min/1 .73m2 [facility] GFR, 85 > OR = 60 mL/min/1 .73m2 [facility] BUN/CREAT RATIO NOT APPLICABLE 6 - 22 (calc) [facility] SODIUM 141 135 - 146 mmol/L [facility] POTASSIUM 5.0 3.5 - 5.3 mmol/L [facility] CHLORIDE 102 98 - 110 mmol/L [facility] . [facility] CO2 30 21 - 33 mmol/L [facility] CALCIUM 8.9 8.6 - 10.4 mg/dL [facility] TOTAL PROTEIN 6.4 6.1 - 8.1 g/dL [facility] ALBUMIN 4.2 3.6 - 5.1 g/dL [facility] GLOBULIN 2.2 1.9 - 3.7 g/dL (calc) [facility] ALBUMIN/GLOBULIN RATIO 1.9 1.0 - 2.5 (calc) [facility] BILIRUBIN TOTAL 0.7 0.2 - 1.2 mg/dL [facility] ALKALINE PHOSPHATASE 155(H) 33 - 130 U/L [facility] AST 21 10 - 35 U/L [facility]. [facility] ALT 20 6 - 40 U/L [facility] [facility] Comment: REPORT COMMENT: FASTING Test Performed at: [facility] [address] ??[id number] MARY ANN JACOBO DO,MPH 04/27/2012 7:51 AM SAP BUSINESS INTELLIGENCE CONSULTANT Eldon Koehler MD CHEMISTRY ORDERABLES Performing Organization Address [facility] Phone Number INTERFACE SYSTEM Refer to clinic/hospital department [facility] [address] [place] [address] * LIPID PANEL (04/27/2012 7:51 AM SAP BUSINESS INTELLIGENCE CONSULTANT) CHOLESTEROL 157 125 - 200 mg/dL [facility] Comment: Test Performed at: [facility] ??[phone] MARY ANN JACOBO DO,MPH HDL 46 > OR = 46 mg/dL [facility] TRIGLYCERIDE 116 <150 mg/dL [facility] LDL CALCULATED 88 <130 mg/dL (calc) [facility] Comment: Desirable range <100 mg/dL for patients with CHD or diabetes and <70 mg/dL for diabetic patients with known heart disease. CHOL/HDL RATIO 3.4 < OR = 5.0 (calc) [facility] TOTAL NON-HDL CHOL(LDL+VLDL) 111 mg/dL (calc) [facility] Comment: Target for non-HDL cholesterol is 30 mg/dL higher than LDL cholesterol target. 04/27/2012 7:51 AM SAP BUSINESS INTELLIGENCE CONSULTANT Eldon Koehler MD CHEMISTRY ORDERABLES Performing Organization Address [facility] de Phone Number INTERFACE SYSTEM Refer to clinic/hospital department [facility] [address] [place] [address] * (ABNORMAL) CBC WITH DIFFERENTIAL (04/27/2012 7:51 AM SAP BUSINESS INTELLIGENCE CONSULTANT) WBC 8.2 3.8 - 10.8 Thousand/ uL [facility] RBC 4.38 3.80 - 5.10 Million/u L [facility] HEMOGLOBIN 12.6 11.7 - 15.5 g/dL [facility] HEMATOCRIT 38.9 35.0 - 45.0 % [facility] MCV 88.8 80.0 - 100.0 fL [facility] MCH 28.9 27.0 - 33.[address] [facility]. [facility] MCHC 32.5 32.0 - 36.0 g/dL [facility] RDW 15.7(H) 11.0 - 15.0 % [facility] PLATELETS 287 140 - 400 Thousand/ uL [facility] NEUTROPHIL ABSOLUTE 5,469 1,500 - 7,800 cells/uL [facility] LYMPHOCYTE ABSOLUTE 1,771 850 - 3,900 cells/uL [facility] MONOCYTE ABSOLUTE 599 200 - 950 cells/uL [facility] EOSINOPHIL ABSOLUTE 295 15 - 500 cells/uL [facility]. [facility] BASOPHILS ABSOLUTE 66 0 - 200 cells/uL [facility] NEUTROPHIL 66.7 % [facility] LYMPHOCYTES 21.6 % [facility] MONOCYTE 7.3 % [facility] EOSINOPHILS 3.6 % [facility] BASOPHILS 0.8 % [facility] Comment: REPORT COMMENT: FASTING Test Performed at: [facility] [address] ??[phone] MARY ANN JACOBO DO,MPH 04/27/2012 7:51 AM SAP BUSINESS INTELLIGENCE CONSULTANT Eldon Koehler MD HEMATOLOGY ORDERABLE S INTERFACE SYSTEM Refer to clinic/hospital department [facility] [address] [place] [address] * (ABNORMAL) HEMOGLOBIN A1C (04/27/2012 7:51 AM SAP BUSINESS INTELLIGENCE CONSULTANT) HEMOGLOBIN A1C 6.1(H) <5.7 % of total Hgb [facility] Comment: ?Higher risk of diabetes ? <5.7 ? Decreased risk of diabetes ? 5.7-6.0 ?Increased risk of diabetes ? 6.1-6.4 ?Higher risk of diabetes ? > or = 6.5 Consistent with diabetes ?Standards of Medical Care in Diabetes-2010. ?Diabetes Care, 33(Supp 1): S1-S61,2010. REPORT COMMENT: FASTING Test Performed at: [facility] [address] ??[phone] MARY ANN JACOBO DO,MPH 04/27/2012 7:51 AM SAP BUSINESS INTELLIGENCE CONSULTANT Eldon Koehler MD CHEMISTRY ORDERABLES Performing Organization Address [facility] de Phone Number INTERFACE SYSTEM Refer to clinic/hospital department [facility] [address] [place] [address] * TSH (04/27/2012 7:51 AM SAP BUSINESS INTELLIGENCE CONSULTANT) TSH 2.06 0.40 - 4.50 mIU/L [facility] Comment: REPORT COMMENT: FASTING Test Performed at: [facility] [address] ??[phone] MARY ANN JACOBO DO,MPH 04/27/2012 7:51 AM SAP BUSINESS INTELLIGENCE CONSULTANT Eldon Koehler MD CHEMISTRY ORDERABLES Performing Organization Address [facility] de Phone Number INTERFACE SYSTEM Refer to clinic/hospital department [facility] [address] [place] [address] documented in this encounter Visit Diagnoses Not on filedocumented in this encounter Care Teams Steel Engraver Relationship Specialty Start Date End Date Eldon Koehler MD PCP - General 10/06/07 documented as of this encounter
--- OUTSIDE RECORDS SUMMARY | 2024-05-22 17:04 | XMS_ITS | Encounter Summary ---
Author Organization [facility] Address [address] [place] [address] Care Team Providers Care Painter Spring Name Role Phone Eldon Koehler MD Primary Care Provider Reason for Visit * Reason Onset Date Comments Medication Review 07/16/2012 Encounter Details Date Type Department Care Team (Late st Contact Info) Description 07/16/2012 Telephone [facility] Internal Medicine [address] [address] Eldon Koehler MD [address] [place] [address] Medication Review Social History Tobacco Use [...] * Telephone Encounter - Jacqueline Andrade - 07/16/2012 8:10 AM CST Pharmacy requesting a refill on singulair not on med list please advise LINER documented in this encounter Plan of Treatment Upcoming Encounters Date Type Department Care Team (Late st Contact Info) Description 07/27/2024 9:40 AM CDT Office Visit [facility] Primary Care [address] [place] [address] Eldon Koehler MD [address] [place] [address] [address] [place] [phone] documented as of this encounter Visit Diagnoses Not on filedocumented in this encounter Care Teams Painter Spring Relationship Specialty Start Date End Date Eldon Koehler MD PCP - General 10/06/07 documented as of this encounter
--- OUTSIDE RECORDS SUMMARY | 2024-05-22 17:05 | XMS_ITS | Encounter Summary ---
Author Organization [facility] Address [address] [place] [address] Care Team Providers Care History Department Chair Name Role Phone Eldon Koehler MD Primary Care Provider [phone] Reason for Referral * Consult, Test & Treat (Routine) - Closed Specialty Diagnoses / Procedures Referred By Carmen villalobos Referred To Contact Gastroenterology Diagnoses Screen for colon cancer Eldon Koehler MD [address] [place] [phone] Referral ID Status Reason Start Date Expiration Date V isits Requested Visits Authorized [id number] Closed Ordering Dept To Review (STL) 01/25/2009 01/25/2010 1 1 Reason for Visit * Reason Comments Hypothyroid Cholesterol Problem Encounter Details Date Type Department Care Team (Late st Contact Info) Description 01/25/2009 10:45 AM CDT Office Visit [facility] Internal Medicine [address] [address] Eldon Koehler MD [address] [place] [address] [address] [place] [address] Impaired Fasting Glucose; Restless Leg Syndrome; Unspecified Hypothyroidism; Depressive Disorder, not Elsewhere Classified; Other and Unspecified Hyperlipidemia; Screen for Colon Cancer Social History Tobacco Use Types Packs/Day Years Used Date Smoking Tobacco: Never Alcohol Use Standard Drinks/Week Comments No 0 (1 standard drink = 0.6 oz pur e alcohol) Sex and Gender Information Value Date Recorded Sex Assigned at Not on file Gender Identity Not on file Sexual Orientation Not on file documented as of this encounter Last Filed Vital Signs Vital Sign Reading Time Taken Comments Blood Pressure 112/70 01/25/2009 11:05 AM CDT Pulse - - Temperature - - Respiratory Rate - - Oxygen Saturation - - Inhaled Oxygen Concentration - - Weight 118.4 kg (261 lb) 01/25/2009 11:05 AM CDT Height - - Body Mass Index 40.88 10/06/2007 12:13 PM CDT documented in this encounter Progress Notes * Eldon Koehler MD - 01/25/2009 1:06 PM CDT Subjective: WINIFRED PIPER is a 58 y.o. female. Fatigue better Lab reviewed, chol stable lft stable Pt with intermittent diffuse arthtitis all jts, better with celebrex comes and goes No m ache now Left knee pain--known djd in knee Patient Active Problem List Diagnoses Date Noted Restless Leg Syndrome [333.94J] 10/04/2007 Impaired Fasting Glucose [790.21] 08/03/2007 Unspecified Asthma [493.90] 06/05/2007 Unspecified Sleep Apnea [780.57] 06/05/2007 Unspecified Backache [724.5] 03/02/2007 Headache [784.0] 12/17/2006 Unspecified Hypothyroidism [244.9] 04/19/2005 Osteoarth NOS-Unspec [715.90] 10/19/2004 Depressive Disorder, not Elsewhere Classified [311] 06/08/2003 Other and Unspecified Hyperlipidemia [272.4] 06/07/2003 Past Medical History Diagnosis Date ??? Unspecified Arthropathy, Site Unspecified ??? Unspecified Disorder of Lipoid Metabolism ??? Unspecified Essential Hypertension History Substance Use Topics ??? Tobacco Use: Never ??? Alcohol Use: No Review of Systems: During the review of systems, the following significant history is obtained from the patient: Constitutional: denies feversEar, Nose, Mouth, Throat: denies hearing loss,Respiratory: denies cough, dyspnea, stridor, wheeze Cardiovascular: denies chest pain, exertional chest pressure/discomfort, fatigue, nausea, syncope, shortness of breath Gastrointestinal: denies abdominal pain, change in bowel habits, constipation, diarrhea, dsyphagia,reflux symptoms, vomiting Genitourinary: denies dysuria, frequency, incontinence, urgency Integementary, Breast: denies skin lesion(s), color change, lumps, masses, discharge, tenderness Behavior, Psychologic: denies aggressive or problematic behavior, anxiety, mood issues, substance use, learning difficulty, unusual fears Exam/Objective: Normal Exam for Routine Visits: \Blood pressure 112/70, weight 261 lb (118.389 kg). General appearance: healthy appearing, active, alert, cooperative, no distress, social, normally nourished, and in no acute distress Head: Normocephalic, without obvious abnormality, atraumatic Eyes: conjunctivae/corneas clear. PERRLA, EOM's intact. Fundi benign. Lids appear normal. Ears:af level tm's. Hearing grossly normal. Nose: Nares normal. Septum [...] abdomen. Lymphatics: No focal or generalized lymphadenopathy. mskel--no jt deformith, no m tenderness, left knee, no effusion, full rom Assessment and Plan: ASSESSMENT: Encounter Diagnoses Code Name Primary? Qualifier ??? 790.21 Impaired Fasting Glucose ??? 333.94J Restless Leg Syndrome ??? 244.9 Unspecified Hypothyroidism ??? 311 Depressive Disorder, not Elsewhere Classified ??? 272.4 Other and Unspecified Hyperlipidemia Plan: COMPREHENSIVE METABOLIC PANEL, CK, LIPID PANEL ??? V76.51D Screen for Colon Cancer Plan: AMB REFERRAL TO GASTROENTEROLOGY The nature of cardiac risk has been fully discussed with this patient. I have made her aware of herLDL target goal given her cardiovascular risk analysis. I have discussed the appropriate diet. The need for lifelong compliance in order to reduce risk is stressed. A regular exercise program is recommended to help achieve and maintain normal body weight, fitness and improve lipid balance. Hold lipitor x 2 weeks see if effects sx Risk of celebrex reviewed, pt feels she needs to have it Consider rheumatology consult if jt issues persists, discussed PLAN: Orders Placed This Encounter ??? Comprehensive metabolic panel ??? Ck ??? Lipid panel ??? Amb referral to gastroenterology ??? Celecoxib 200 mg cap Appropriate medications prescribed (see detailed AVS). Appropriate patient instructions provided (see detailed AVS). Follow-up as I have indicated. Medications and options explained to include common side effects. Understanding of medications, course, diagnosis, and expectations were expressed by patient/guardian. documented in this encounter Plan of Treatment Upcoming Encounters Date Type Department Care Team (Late st Contact Info) Description 07/27/2024 9:40 AM CDT Office Visit [facility] [place] [address] Eldon Koehler MD [address] [place] [address] Scheduled Referrals Name Type Priority Associated Diagnoses Order Schedule AMB REFERRAL TO GASTROENTEROLOGY Outpatient Referral Routine Screen for Colon Cancer Ordered: 01/25/2009 documented as of this encounter Visit Diagnoses Diagnosis Impaired fasting glucose Restless leg syndrome Restless legs syndrome (RLS) Unspecified hypothyroidism Depressive disorder, not elsewhere classified Other and unspecified hyperlipidemia Screen for colon cancer Special screening for malignant neoplasms, colon documented in this encounter Care Teams History Department Chair Relationship Specialty Start Date End Date Eldon Koehler MD PCP - General 10/06/07 documented as of this encounter
--- OUTSIDE RECORDS SUMMARY | 2024-05-22 17:05 | XMS_ITS | Encounter Summary ---
Author Organization [facility] Address [address] [place] [address] Care Team Providers Care Catering Driver Name Role Phone Eldon Koehler MD Primary Care Provider [phone] Encounter Details Date Type Department Care Team (Late st Contact Info) Description 01/04/2010 Orders Only [facility] Internal Medicine [address] [address] Eldon Koehler MD [address] [place] [address] [address] [place] [address] Social History Tobacco Use Types [...] [facility] Primary Care [address] [place] [address] Eldon Koehler MD [address] [place] [address] [address] [place] [address] documented as of this encounter Procedures Procedure Name Priority Date/Time Associated Diagnosis Comments ENDOSCOPY, COLON, SCREENING Routine 12/28/2009 documented in this encounter Results * ENDOSCOPY, COLON, SCREENING (12/28/2009) Eldon Koehler MD GI PROCEDURE [facility] documented in this encounter Visit Diagnoses Not on filedocumented in this encounter Care Teams Catering Driver Relationship Specialty Start Date End Date Eldon Koehler MD PCP - General 10/06/07 documented as of this encounter
--- OUTSIDE RECORDS SUMMARY | 2024-05-22 17:05 | XMS_ITS | Encounter Summary ---
Author Organization [facility] Address [address] [place] [address] Dr. Wilkinsonn: [place] [address] Care Team Providers Care Bridge Attacher Name Role Phone Eldon Koehler MD Primary Care Provider [phone] Encounter Details Date Type Department Care Team (Late st Contact Info) Description 04/17/2008 Outpatient Historical Initial Department [address] [place] [address] Dr WILKINSONN: [place] [address] Social History Tobacco Use Types Packs/Day Years [...] CDT Office Visit [facility] [address] [place] [address] Eldon Koehler MD [address] [place] [address] [address] [place] [address] documented as of this encounter Procedures Procedure Name Priority Date/Time Associated Diagnosis Comments TSH Routine 04/17/2008 11:00 AM MEDICAL SCHEDULER HEMOGLOBIN A1C Routine 04/17/2008 11:00 AM MEDICAL SCHEDULER LIPID PANEL Routine 04/17/2008 11:00 AM MEDICAL SCHEDULER COMPREHENSIVE METABOLIC PANEL Routine 04/17/2008 11:00 AM MEDICAL SCHEDULER documented in this encounter Results * TSH (04/17/2008 11:00 AM MEDICAL SCHEDULER) Pathologist [facility] TSH 3.15 mIU/L [facility] Comment: REFERENCE RANGE: > OR = 20 YEARS: 0.40-4.50 ? RANGES FIRST TRIMESTER ?0.20-4.70 SECOND TRIMESTER ?? 0.30-4.10 THIRD TRIMESTER ?0.40-2.70 Test Performed at: [employer] [facility] ??[phone] MARY ANN DILLON MD Eldon Koehler MD CHEMISTRY ORDERABLES Performing Organization Address [facility] Phone Number INTERFACE SYSTEM Refer to clinic/hospital department [address] [address] * HEMOGLOBIN A1C (04/17/2008 11:00 AM MEDICAL SCHEDULER) [facility] HEMOGLOBIN A1C 5.9 % of total Hgb [facility] [employer] [facility] Comment: NON-DIABETIC: <6.0% Test Performed at: [employer] [facility] ??[phone] MARY ANN DILLON MD Eldon Koehler MD CHEMISTRY ORDERABLES Performing Organization Address [facility] Phone Number INTERFACE SYSTEM Refer to clinic/hospital department [address] [address] * (ABNORMAL) COMPREHENSIVE METABOLIC PANEL (04/17/2008 11:00 AM MEDICAL SCHEDULER) Pathologist [facility] GLUCOSE 98 65 - 99 mg/dL [facility] [employer] [facility] Comment:FASTING REFERENCE IN TERVAL BUN 17 7 - 25 mg/dL [facility] [employer] [facility] CREATININE 0.90 0.50 - 1.20 mg/dL [employer] [facility] GFR >60 > OR = 60 mL/min/1 .73m2 [facility] GFR, >60 > OR = 60 mL/min/1 .73m2 [facility] BUN/CREAT RATIO NOT APPLICABLE 6 - 22 (calc) [facility] Comment: BUN/CREATININE RATIO IS NOT REPORTED WHEN THE BUN AND CREATININE VALUES ARE WITHIN NORMAL LIMITS. SODIUM 139 135 - 146 mmol/L [facility] POTASSIUM 4.5 3.5 - 5.3 mmol/L [facility] CHLORIDE 105 98 - 110 mmol/L [facility] CO2 20(L) 21 - 33 mmol/L [facility] CALCIUM 8.9 8.6 - 10.2 mg/dL [facility] TOTAL PROTEIN 6.7 6.2 - 8.3 g/dL [facility] ALBUMIN 4.2 3.6 - 5.1 g/dL [facility] GLOBULIN 2.5 2.2 - 3.9 g/dL (calc) [facility] ALBUMIN/GLOBULI N RATIO 1.7 1.0 - 2.1 (calc) [facility] BILIRUBIN TOTAL 0.6 0.2 - 1.2 mg/dL [facility] ALKALINE PHOSPHATASE 151(H) 33 - 130 U/L [facility] AST 23 10 - 35 U/L [facility] ALT 33 6 - 40 U/L [facility] Comment: Test Performed at: [employer] [facility] [address] [place] [address] ??[phone] MARY ANN DILLON MD Eldon Koehler MD CHEMISTRY ORDERABLES INTERFACE SYSTEM Refer to clinic/hospital department [facility] [address] [place] [address] * (ABNORMAL) LIPID PANEL (04/17/2008 11:00 AM MEDICAL SCHEDULER) TRIGLYCERIDE 126 <150 mg/dL [facility] Comment: Test Performed at: [employer] [facility] ??[phone] MARY ANN DILLON MD CHOLESTEROL 135 125 - 200 mg/dL [facility] [employer] [facility] HDL 45(L) > OR = 46 mg/dL [employer] [facility] LDL CALCULATED 65 <130 mg/dL (calc) [employer] [facility] Comment: DESIRABLE RANGE <100 MG/DL FOR PATIENTS WITH CHD OR DIABETES AND <70 MG/DL FOR DIABETIC PATIENTS WITH KNOWN HEART DISEASE. CHOL/HDL RATIO 3.0 < OR = 5.0 (calc) [facility] Eldon Koehler MD CHEMISTRY ORDERABLES INTERFACE SYSTEM Refer to clinic/hospital department [facility] [address] [place] [address] documented in this encounter Visit Diagnoses Not on filedocumented in this encounter Care Teams Bridge Attacher Relationship Specialty Start Date End Date Eldon Koehler MD PCP - General 10/06/07 documented as of this encounter
--- OUTSIDE RECORDS SUMMARY | 2024-05-22 17:05 | XMS_ITS | Encounter Summary ---
Author Organization [facility] Address [address] [place] [address] Care Team Providers Care Neurology Manager Name Role Phone Eldon Koehler MD Primary Care Provider Encounter Details Date Type Department Care Team (Late st Contact Info) Description 10/24/2007 Orders Only [facility] Internal Medicine [address] [address] Eldon Koehler MD [address] [place] [address] [address] [place] [address] Pain in Soft Tissues of Limb (Primary Dx) Social History Tobacco Use Types [...] [facility] Primary Care [address] [place] [address] Eldon Koehler MD [address] [place] [address] [address] [place] [address] documented as of this encounter Procedures Procedure Name Priority Date/Time Associated Diagnosis Comments XR HAND 3+ VW BILAT Routine 10/20/2007 Pain in Soft Tissues of Limb documented in this encounter Results * XR HAND 3+ VW BILAT (10/20/2007) Anatomical Region Laterality Modality Wrist / Hand Other Eldon Koehler MD DIAGNOSTIC IMAGING O RDERABLES documented in this encounter Visit Diagnoses Diagnosis Pain in limb- Primary documented in this encounter Care Teams Neurology Manager Relationship Specialty Start Date End Date Eldon Koehler MD PCP - General 10/06/07 documented as of this encounter
--- OUTSIDE RECORDS SUMMARY | 2024-05-22 17:05 | XMS_ITS | Encounter Summary ---
Author Organization [facility] Address [address] [place] [address] Care Team Providers Care Methods Time Analyst Name Role Phone Eldon Koehler MD Primary Care Provider [phone] Reason for Visit * Reason Onset Date Comments Medication Refill 10/11/2008 Encounter Details Date Type Department Care Team (Late st Contact Info) Description 10/11/2008 Refill [facility] Internal Medicine [address] [phone] Eldon Koehler MD [address] [place] [address] Social History Tobacco Use Types Packs/Day [...] * Telephone Encounter - Iliana Mike - 10/11/2008 11:21 AM CDT They only gave Pt #15 documented in this encounter Plan of Treatment Upcoming Encounters Date Type Department Care Team (Late st Contact Info) Description 07/27/2024 9:40 AM CDT Office Visit [facility] Primary Care [address] [place] [phone] Eldon Koehler MD [address] [place] [address] [address] [place] [address] documented as of this encounter Visit Diagnoses Not on filedocumented in this encounter Care Teams Methods Time Analyst Relationship Specialty Start Date End Date Eldon Koehler MD PCP - General 10/06/07 documented as of this encounter
--- OUTSIDE RECORDS SUMMARY | 2024-05-22 17:05 | XMS_ITS | Encounter Summary ---
Author Organization [facility] Address [address] [place] [address] Care Team Providers Care Software Tools Engineer Name Role Phone Eldon Koehler MD Primary Care Provider Encounter Details Date Type Department Care Team (Late st Contact Info) Description 02/24/2009 Orders Only [facility] Internal Medicine [address] [address] Eldon Koehler MD [address] [place] [address] [address] [place] [address] Hip Pain; Back Pain Social History Tobacco Use Types Packs/Day [...] [facility] Primary Care [facility] [address] [place] [address] [address] [place] [address] Eldon Koehler MD [address] [place] [address] [address] [address] [place] [address] documented as of this encounter Procedures Procedure Name Priority Date/Time Associated Diagnosis Comments CT LUMBAR SPINE WO CONTRAST Routine 02/21/2009 Back Pain XR HIP 2 OR 3 VIEWS LT Routine 02/15/2009 Hip Pain documented in this encounter Results * CT LUMBAR SPINE WO CONTRAST (02/21/2009) Anatomical Region Laterality Modality Spine Other Eldon Koehler MD CT ORDERABLES * XR HIP 2+ VW LEFT (02/15/2009) Anatomical Region Laterality Modality Lower Extremity Left Other Eldon Koehler MD DIAGNOSTIC IMAGING O RDERABLES documented in this encounter Visit Diagnoses Diagnosis Hip pain Pain in joint, pelvic region and thigh Back pain Backache, unspecified documented in this encounter Care Teams Software Tools Engineer Relationship Specialty Start Date End Date Eldon Koehler MD PCP - General 10/06/07 documented as of this encounter
--- OUTSIDE RECORDS SUMMARY | 2024-05-22 17:05 | XMS_ITS | Encounter Summary ---
Author Organization [facility] Address [address] [place] [address] Care Team Providers Care Graphics Manager Name Role Phone Eldon Koehler MD Primary Care Provider [phone] Reason for Visit * Reason Comments Sore Throat Ear Pain Cough Encounter Details Date Type Department Care Team (Late st Contact Info) Description 08/29/2008 2:30 PM CDT Office Visit [facility] Internal Medicine [address] [address] Eldon Koehler MD [address] [place] [address] Acute Sinusitis; Acute Bronchitis Social History Tobacco Use Types Packs/Day Years [...] Reading Time Taken Comments Blood Pressure 112/70 08/29/2008 2:35 PM CDT Pulse - - Temperature 36.8 ??C (98.2 ??F) 08/29/2008 2:35 PM CD T Respiratory Rate - - Oxygen Saturation - - Inhaled Oxygen Concentration - - Weight 114.8 kg (253 lb) 08/29/2008 2:35 PM CDT Height - - Body Mass Index 39.63 10/06/2007 12:13 PM CDT documented in this encounter Progress Notes * Eldon Koehler MD - 08/29/2008 6:10 PM CDT inc sore throat--no fever, now with sinus, severe coughingThe patient denies cough, chest pain, dyspnea, wheezing or hemoptysis. Now sore throat worse glands in neck The patient appears alert, well appearing, and in no distress.- bilateral TM fluid noted and pharynx erythematous without exudate.,small tender nodes neck Chest:clear to auscultation, no wheezes, rales or rhonchi, symmetric air entry. Heart sounds are normal. Abdomen soft, nontender, no masses or organomegaly. ASSESSMENT: Encounter Diagnoses Name Primary? Acute Sinusitis ??? Acute Bronchitis PLAN: Orders Placed This Encounter ??? Azithromycin 250 mg tab ??? Methylprednisolone 4 mg tabs in a dose pack Discussed pertussis-pt declined swab dtap at documented in this encounter Plan of Treatment Upcoming Encounters Date Type Department Care Team (Late st Contact Info) Description 07/27/2024 9:40 AM CDT Office Visit [facility] Primary Care [address] [place] [address] Eldon Koehler MD [address] [place] [address] [address] [place] [phone] documented as of this encounter Visit Diagnoses Diagnosis Acute sinusitis Acute sinusitis, unspecified Acute bronchitis documented in this encounter Care Teams Graphics Manager Relationship Specialty Start Date End Date Eldon Koehler MD PCP - General 10/06/07 documented as of this encounter
--- OUTSIDE RECORDS SUMMARY | 2024-05-22 17:05 | XMS_ITS | Encounter Summary ---
Author Organization [facility] Address [address] [place] [address] Care Team Providers Care Internet Designer Name Role Phone Eldon Koehler MD Primary Care Provider [phone] Reason for Visit * Reason Onset Date Comments Medication Refill 12/28/2007 Encounter Details Date Type Department Care Team (Late st Contact Info) Description 12/28/2007 Refill [facility] Internal Medicine [address] [address] Eldon Koehler MD [address] [place] [address] Social History Tobacco Use Types Packs/Day [...] * Telephone Encounter - Mitra Ward - 12/28/2007 5:20 PM CDT FAXED SCRIPT TO PHARM * Telephone Encounter - Mitra Ward - 12/28/2007 2:07 PM CDT PT HAS BEEN TAKING 2 OF THE .25 MG OF REQUIP. WILL NEED A NEW SCRIPT FOR THE .5 MG. REQUIP SENT TO LOCAL PHARMACY. FOR A 30 DAY SUPPLY. documented in this encounter Plan of Treatment Upcoming Encounters Date Type Department Care Team (Late st Contact Info) Description 07/27/2024 9:40 AM CDT Office Visit [facility] Primary Care [address] [place] [address] Eldon Koehler MD [address] [place] [address] [address] [place] [address] documented as of this encounter Visit Diagnoses Not on filedocumented in this encounter Care Teams Internet Designer Relationship Specialty Start Date End Date Eldon Koehler MD PCP - General 10/06/07 documented as of this encounter
--- OUTSIDE RECORDS SUMMARY | 2024-05-22 17:05 | XMS_ITS | Encounter Summary ---
Author Organization [facility] Address [address] [place] [address] Care Team Providers Care After School Driver Name Role Phone Eldon Koehler MD Primary Care Provider [phone] Reason for Visit * Reason Comments Cough sore throat, joint p ain, fever Encounter Details Date Type Department Care Team (Late st Contact Info) Description 05/16/2010 10:30 AM POOL INSTALLER Office Visit [facility] Internal Medicine [address] [address] Rossana Mcduffie NP [address] [place] [phone] Acute sinusitis (Primary Dx); Acute bronchitis Social History Tobacco [...] Reading Time Taken Comments Blood Pressure 110/80 05/16/2010 10:38 AM POOL INSTALLER Pulse - - Temperature 36.8 ??C (98.3 ??F) 05/16/2010 10:[address] Respiratory Rate - - Oxygen Saturation 95% 05/16/2010 10:38 AM POOL INSTALLER Inhaled Oxygen Concentration - - Weight 123.4 kg (272 lb) 05/16/2010 10:38 AM POOL INSTALLER Height - - Body Mass Index 42.6 10/06/2007 12:13 PM CDT documented in this encounter Progress Notes * Rossana Mcduffie NP - 05/16/2010 11:11 AM CST HISTORY OF PRESENT ILLNESS WINIFRED PIPER, a 59 y.o. female. HPI presents with URI-cough and wheezing that has been going on for one week. She wears CPAP at hs and has a problem wearing due to coughing. Started out in chest and moved to sinus. REVIEW OF SYSTEMS Review of Systems Constitutional: Positive for malaise/fatigue. Negative for fever and chills. HENT: Positive for congestion and sore throat. Negative for ear pain. Eyes: Negative. Respiratory: Positive for cough, sputum production and wheezing. Negative for hemoptysis and shortness of breath. Cardiovascular: Negative. Gastrointestinal: Negative. Neurological: Negative for headaches. PHYSICAL EXAM BP 110/80 Temp 98.3 ??F (36.8 ??C) Wt 272 lb (123.378 kg) SpO2 95% Physical Exam Constitutional: She is oriented to person, place, and time. She appears well- developed and well-nourished. HENT: Head: Normocephalic and atraumatic. Mouth/Throat: No oropharyngeal exudate. Turbinates inflamed bilaterally. Right TM with serous otitis. Neck glands swollen. Neck: Normal range of motion. Neck supple. Cardiovascular: Normal rate, regular rhythm and normal heart sounds. Exam reveals no gallop and no friction rub. No murmur heard. Pulmonary/Chest: Effort normal and breath sounds normal. No respiratory distress. She has no wheezes. She has no rales. She exhibits no tenderness. Harsh cough-occasional wheeze right mid lobe to base-scattered. Lymphadenopathy: She has cervical adenopathy. Neurological: She is alert and oriented to person, place, and time. ASSESSMENT and PLAN: 1. Acute sinusitis (461.9J) methylPREDNISolone (MEDROL DOSPACK) 4 mg Oral DsPk- take with food, azithromycin (ZITHROMAX) 250 mg Oral tablet- z pack fluticasone- salmeterol (ADVAIR DISKUS) 500-50 mcg/dose Inhalation DsDv ( one sample given) flonase nasal spray two sprays ea nostril x 3 days then prn. 2. Acute bronchitis (466.0) fluticasone-salmeterol (ADVAIR DISKUS) 500-50 mcg/dose Inhalation DsDv-albuterol 90 mcg one-two puffs every 6 hrs only prn. INSTALLER documented in this encounter Plan of Treatment Upcoming Encounters Date Type Department Care Team (Late st Contact Info) Description 07/27/2024 9:40 AM CDT Office Visit [facility] Primary Care [address] [place] [address] Eldon Koehler MD [address] [place] [address] [address] [place] [address] documented as of this encounter Visit Diagnoses Diagnosis Acute sinusitis- Primary Acute sinusitis, unspecified Acute bronchitis documented in this encounter Care Teams After School Driver Relationship Specialty Start Date End Date Eldon Koehler MD PCP - General 10/06/07 documented as of this encounter
--- OUTSIDE RECORDS SUMMARY | 2024-05-22 17:05 | XMS_ITS | Encounter Summary ---
Author Organization [facility] Address [address] [place] [address] Care Team Providers Care Molder Closed Molds Name Role Phone Eldon Koehler MD Primary Care Provider [phone] Reason for Visit * Reason Onset Date Comments Erroneous encounter-disregard 05/16/2010 Encounter Details Date Type Department Care Team (Late st Contact Info) Description 05/16/[address] [facility] Internal Medicine [address] [address] Eldon Koehler MD [address] [place] [address] [address] [place] [address] Erroneous encounter-disregard Social History Tobacco [...] Visit [facility] Primary Care [address] [place] [address] Eldon Koehler MD [address] [place] [address] [address] [place] [address] documented as of this encounter Visit Diagnoses Not on filedocumented in this encounter Care Teams Molder Closed Molds Relationship Specialty Start Date End Date Eldon Koehler MD PCP - General 10/06/07 documented as of this encounter
--- OUTSIDE RECORDS SUMMARY | 2024-05-22 17:05 | XMS_ITS | Encounter Summary ---
Author Organization [facility] Address [address] [place] [address] Care Team Providers Care Body And Fender Mechanic Apprentice Name Role Phone Eldon Koehler MD Primary Care Provider [phone] Reason for Visit * Reason Comments Cholesterol Problem Encounter Details Date Type Department Care Team (Late st Contact Info) Description 03/13/2010 4:30 PM CDT Office Visit [facility] Internal Medicine [address] [address] Eldon Koehler MD [address] [place] [address] Other and unspecified hyperlipidemia; Depressive disorder, not elsewhere classified; Unspecified hypothyroidism; Osteoarth NOS-unspec; RLS (restless legs syndrome); Sleep apnea Social History Tobacco Use Types [...] Reading Time Taken Comments Blood Pressure 120/80 03/13/2010 4:39 PM CDT Pulse - - Temperature - - Respiratory Rate - - Oxygen Saturation - - Inhaled Oxygen Concentration - - Weight 122.5 kg (270 lb) 03/13/2010 4:39 PM CDT Height - - Body Mass Index 42.29 10/06/2007 12:13 PM CDT documented in this encounter Progress Notes * Eldon Koehler MD - 03/13/2010 5:18 PM CDT HISTORY OF PRESENT ILLNESS WINIFRED PIPER, a 59 y.o. female. HPI Recent lab chol better vickie lipitor Leg better Had mammo ok Had colonscopy ok On requipfor rls doing better Recent testing for sleep apnea, cpap pend Patient Active Problem List Diagnoses Code ??? [...] on file. Social History Main Topics ??? Tobacco Use: Never ??? Alcohol Use: No ??? Drug Use: [...] Negative for dysuria. Musculoskeletal: Right leg pain on boston, behind knee. Skin: Negative for rash and itching. Neurological: Negative for dizziness, focal weakness, seizures and headaches. Psychiatric/Behavioral: Negative for depression. The patient is not nervous/anxious. PHYSICAL EXAM BP 120/80 Wt 270 lb (122.471 kg) Physical Exam Vitals reviewed. Constitutional: She [...] dry. She is not diaphoretic. Mood stable ASSESSMENT: Encounter Diagnoses Name Primary? Other and unspecified hyperlipidemia ??? Depressive disorder, not elsewhere classified ??? Unspecified hypothyroidism ??? Osteoarth NOS-unspec ??? RLS (restless legs syndrome) ??? Sleep apnea . The nature of cardiac risk has [...] diet has been given to the patient. I've explained to her that drugs of the SSRI class can have side effects such as weight gain, sexual dysfunction, insomnia, headache, nausea. These medications are generally effective at alleviating symptoms of anxiety and/or depression. Let me know if significant side effects do occur. PLAN: Orders Placed This Encounter ? ? Tdap vaccine >7 yo im (adult) ??? Cbc with differential ??? Comprehensive metabolic panel ??? Lipid panel ??? Tsh ??? Vitamin b12 level ??? Vitamin d 25 hydroxy ??? Atorvastatin (lipitor) 20 mg oral tablet documented in this encounter Plan of Treatment Upcoming Encounters Date Type Department Care Team (Late st Contact Info) Description 07/27/2024 9:40 AM CDT Office Visit [facility] Primary Care [address] [place] [address] Eldon Koehler MD [address] [place] [address] Scheduled Orders Name Type Priority Associated Diagnoses Orde r Schedule VITAMIN D 25 HYDROXY Lab Routine Depressive disorder, not elsewhere classified Ordered: 03/13/2010 documented as of this encounter Procedures Procedure Name Priority Date/Time Associated Diagnosis Comments CBC WITH DIFFERENTIAL Routine 01/04/2011 7:43 AM CDT TSH Routine 01/04/2011 7:43 AM CDT VITAMIN B12 LEVEL Routine 01/04/2011 7:4 3 AM CDT LIPID PANEL Routine 01/04/2011 7:43 AM CDT COMPREHENSIVE METABOLIC PANEL Routine 01/04/2011 7:43 AM CDT documented in this encounter Results * VITAMIN B12 LEVEL (01/04/2011 7:43 AM CDT) Pathologist [facility] VITAMIN B12 314 200 - 1100 pg/mL [facility] Comment: Please Note: Although the reference range for vitamin B12 is 200-1100 pg/mL, it has been reported that between 5 and 10% of patients with values between 200 and 400 pg/mL may experience neuropsychiatric and hematologic abnormalities due to occult B12 deficiency; less than 1% of patients with values above 400 pg/mL will have symptoms. REPORT COMMENT: 10-12HR FAST Test Performed at: [facility] [address] ??[id number] MARY ANN JACOBO DO,MPH 01/04/2011 7:43 AM CDT Eldon Koehler MD CHEMISTRY ORDERABLES INTERFACE SYSTEM Refer to clinic/hospital department [facility] [address] [place] [address] * TSH (01/04/2011 7:43 AM CDT) Pathologist [facility] TSH 3.77 0.40 - 4.50 mIU/L [facility] Comment: REPORT COMMENT: 10-12HR FAST Test Performed at: [facility] [place] [address] [place], [place] ??[phone] MARY ANN JACOBO DO,MPH 01/04/2011 7:43 AM CDT Eldon Koehler MD CHEMISTRY ORDERABLES INTERFACE SYSTEM Refer to clinic/hospital department [facility] [address] [place] [address] * (ABNORMAL) COMPREHENSIVE METABOLIC PANEL (01/04/2011 7:43 AM CDT) Pathologist [facility] GLUCOSE 94 65 - 99 mg/dL [facility] Comment:Fasting reference in terval BUN 12 7 - 25 mg/dL [facility] CREATININE 0.89 0.60 - 1.10 mg/dL [facility] GFR 71 > OR = 60 mL/min/1 .73m2 [facility] GFR, 83 > OR = 60 mL/min/1 .73m2 [facility] BUN/CREAT RATIO NOT APPLICABLE 6 - 22 (calc) [facility] SODIUM 141 135 - 146 mmol/L [facility] POTASSIUM 4.9 3.5 - 5.3 mmol/L [facility] CHLORIDE 102 98 - 110 mmol/L [facility] CO2 30 21 - 33 mmol/L [facility] CALCIUM 9.3 8.6 - 10.2 mg/dL [facility] TOTAL PROTEIN 6.7 6.2 - 8.3 g/dL [facility] ALBUMIN 3.9 3.6 - 5.1 g/dL [facility] GLOBULIN 2.8 2.2 - 3.9 g/dL (calc) [facility] ALBUMIN/GLOBULI N RATIO 1.4 1.0 - 2.1 (calc) [facility] BILIRUBIN TOTAL 0.5 0.2 - 1.2 mg/dL [facility] ALKALINE PHOSPHATASE 158(H) 33 - 130 U/L [facility] AST 17 10 - 35 U/L [facility] ALT 27 6 - 40 U/L [facility] Comment: REPORT COMMENT: 10-12HR FAST Test Performed at: [facility] [place], [place] ??[address] MARY ANN JACOBO DO,MPH 01/04/2011 7:43 AM CDT Eldon Koehler MD CHEMISTRY ORDERABLES Performing Organization Address [facility] Phone Number INTERFACE SYSTEM Refer to clinic/hospital department [facility] [address] [place] [address] * (ABNORMAL) LIPID PANEL (01/04/2011 7:43 AM CDT) CHOLESTEROL 291(H) 125 - 200 mg/dL [facility] Comment: Test Performed at: [facility] ??[phone] MARY ANN JACOBO DO,MPH HDL 60 > OR = 46 mg/dL [facility] TRIGLYCERIDE 128 <150 mg/dL [facility] LDL CALCULATED 205(H) <130 mg/dL (calc) [facility] Comment: Desirable range <100 mg/dL for patients with CHD or diabetes and <70 mg/dL for diabetic patients with known heart disease. CHOL/HDL RATIO 4.9 < OR = 5.0 (calc) [facility] 01/04/2011 7:43 AM CDT Eldon Koehler MD CHEMISTRY ORDERABLES Performing Organization Address [facility] Phone Number INTERFACE SYSTEM Refer to clinic/hospital department [facility] [address] [place] [address] * (ABNORMAL) CBC WITH DIFFERENTIAL (01/04/2011 7:43 AM CDT) WBC 9.9 3.8 - 10.8 Thousand/ uL [facility] RBC 4.40 3.80 - 5.10 Million/u L [facility] HEMOGLOBIN 12.6 11.7 - 15.5 g/dL [facility] HEMATOCRIT 39.0 35.0 - 45.0 % [facility] MCV 88.6 80.0 - 100.[address] [facility] MCH 28.5 27.0 - 33.[address] [facility] MCHC 32.2 32.0 - 36.0 g/dL [facility] RDW 17.0(H) 11.0 - 15.0 % [facility] PLATELETS 345 140 - 400 Thousand/ uL [facility] NEUTROPHIL ABSOLUTE 7,128 1,500 - 7,800 cells/uL [facility] LYMPHOCYTE ABSOLUTE 1,911 850 - 3,900 cells/uL [facility] MONOCYTE ABSOLUTE 584 200 - 950 cells/uL [facility] EOSINOPHIL ABSOLUTE 238 15 - 500 cells/uL [facility] BASOPHILS ABSOLUTE 40 0 - 200 cells/uL [facility] NEUTROPHIL 72.0 % [facility] LYMPHOCYTES 19.3 % [facility] MONOCYTE 5.9 % [facility] EOSINOPHILS 2.4 % [facility] BASOPHILS 0.4 % [facility] Comment: REPORT COMMENT: 10-12HR FAST Test Performed at: [facility] [address] ??[phone] MARY ANN JACOBO DO,MPH 01/04/2011 7:43 AM CDT Eldon Koehler MD HEMATOLOGY ORDERABLE S INTERFACE SYSTEM Refer to clinic/hospital department [facility] [address] [place] [address] documented in this encounter Visit Diagnoses Diagnosis Other and unspecified hyperlipidemia Depressive disorder, not elsewhere classified Unspecified hypothyroidism Osteoarthrosis, unspecified whether generalized or localized, unspecified site RLS (restless legs syndrome) Restless legs syndrome (RLS) Sleep apnea Unspecified sleep apnea documented in this encounter Care Teams Body And Fender Mechanic Apprentice Relationship Specialty Start Date End Date Eldon Koehler MD PCP - General 10/06/07 documented as of this encounter
--- OUTSIDE RECORDS SUMMARY | 2024-05-22 17:05 | XMS_ITS | Encounter Summary ---
Author Organization [facility] Address [address] [place] [address] Care Team Providers Care Generation Manager Name Role Phone Eldon Koehler MD Primary Care Provider [phone] Reason for Visit * Reason Onset Date Comments Referral 02/01/2009 Encounter Details Date Type Department Care Team (Late st Contact Info) Description 02/01/2009 Telephone [facility] Internal Medicine [address] [address] Eldon Koehler MD [address] [place] [address] Referral Social History Tobacco Use Types [...] Telephone Encounter - Eldon Koehler MD - 02/01/2009 11:20 AM CDT ok * Telephone Encounter - Sofi Raman - 02/01/2009 11:11 AM CDT Crs called patient- no contact made- letter sent by crs- please advise if ok to close referral request to Gastroenterology documented in this encounter Plan of Treatment Upcoming Encounters Date Type Department Care Team (Late st Contact Info) Description 07/27/2024 9:40 AM CDT Office Visit [facility] [address] [place] [address] Eldon Koehler MD [address] [place] [address] [address] [place] [address] documented as of this encounter Visit Diagnoses Not on filedocumented in this encounter Care Teams Generation Manager Relationship Specialty Start Date End Date Eldon Koehler MD PCP - General 10/06/07 documented as of this encounter
--- OUTSIDE RECORDS SUMMARY | 2024-05-22 17:05 | XMS_ITS | Encounter Summary ---
Author Organization [facility] Address [address] [place] [address] Care Team Providers Care Sales Support Technician Name Role Phone Eldon Koehler MD Primary Care Provider [phone] Reason for Referral * Consult, Test & Treat (Routine) - Closed Specialty Diagnoses / Procedures Referred By Contact Referred To Contact Physical Medicine and Rehabilitation Diagnoses Back pain Eldon Koehler MD [address] [place] [phone] Desean Koenig DO [address] [place] [id number] Referral ID Status Reason Start Date Expiration Date V isits Requested Visits Authorized [id number] Closed CRS To Schedule (STL) 02/15/2009 02/15/2010 3 3 * Outpatient Services (Routine) - Closed Specialty Diagnoses / Procedures Referred By Contac t Referred To Contact CT Scan Diagnoses Back pain Procedures CT LUMBAR SPINE WO CONTRAST Eldon Koehler MD [address] [place] [phone] Referral ID Status Reason Start Date Expiration Date Visits Re quested Visits Authorized [id number] Closed 02/15/2009 08/14/2009 1 1 Reason for Visit * Reason Comments Leg Pain states started in le ft hip a few days ago Back Pain low back pain woke h er up last night. Encounter Details Date Type Department Care Team (Late st Contact Info) Description 02/15/2009 1:00 PM CDT Office Visit [facility]3] Internal Medicine [address] [phone] Eldon Koehler MD [address] [place] [phone] Back Pain; Hip Pain Social History Tobacco Use Types Packs/Day [...] Reading Time Taken Comments Blood Pressure 110/60 02/15/2009 1:04 PM CDT Pulse - - Temperature - - Respiratory Rate - - Oxygen Saturation - - Inhaled Oxygen Concentration - - Weight 119.3 kg (263 lb) 02/15/2009 1:04 PM CDT Height - - Body Mass Index 41.19 10/06/2007 12:13 PM CDT documented in this encounter Progress Notes * Eldon Koehler MD - 02/15/2009 5:26 PM CDT Acute back pain 2-3 days diffic walking Fusion in early has battery robby in back Pain severe No gi or gu pain The patient appears alert, well appearing, and in no distress.-, Chest:clear to auscultation, no wheezes, rales or rhonchi, symmetric air entry. Heart sounds are normal. Abdomen soft, nontender, no masses or organomegaly. ls tender Pain with straight leg raise on left sens intackt dtr intact Hip normal rom ASSESSMENT: Encounter Diagnoses Name Primary? Back Pain ??? Hip Pain PLAN: Orders Placed This Encounter ??? Ct lumbar spine wo contrast ??? Xr hip 2+ vw left ??? Amb referral to physicial medicine rehab ??? Methylprednisolone 4 mg tabs in a dose pack ??? Hydrocodone-acetaminophen 5 mg-500 mg tab ??? Cyclobenzaprine 10 mg tab documented in this encounter Plan of Treatment Upcoming Encounters Date Type Department Care Team (Late st Contact Info) Description 07/27/2024 9:40 AM CDT Office Visit [facility]3] Primary Care [facility] [address] [facility] [address] [place] [address] Eldon Koehler MD [address] [facility] [address] [place] [address] Scheduled Referrals Name Type Priority Associated Diagnoses Orde r Schedule AMB REFERRAL TO PHYSICIAL MEDICINE REHAB Outpatient Referral Routine Back Pain Ordered: 02/15/2009 documented as of this encounter Results * CT LUMBAR SPINE WO CONTRAST (02/21/2009) Anatomical Region Laterality Modality Spine Other Eldon Koehler MD CT ORDERABLES * XR HIP 2+ VW LEFT (02/15/2009) Anatomical Region Laterality Modality Lower Extremity Left Other Eldon Koehler MD DIAGNOSTIC IMAGING O RDERABLES documented in this encounter Visit Diagnoses Diagnosis Back pain Backache, unspecified Hip pain Pain in joint, pelvic region and thigh documented in this encounter Care Teams Sales Support Technician Relationship Specialty Start Date End Date Eldon Koehler MD PCP - General 10/06/07 documented as of this encounter
--- OUTSIDE RECORDS SUMMARY | 2024-05-22 17:05 | XMS_ITS | Encounter Summary ---
Author Organization [facility] Address [address] [place] [address] Care Team Providers Care Freezer Unloader Name Role Phone Eldon Koehler MD Primary Care Provider [phone] Reason for Visit * Reason Onset Date Comments Referral 02/17/2009 Prior auth Encounter Details Date Type Department Care Team (Late st Contact Info) Description 02/17/2009 Telephone [facility] Internal Medicine [address] [address] Eldon Koehler MD [address] [place] [address] Referral (Prior auth) Social History Tobacco Use Types Packs/Day Years [...] * Telephone Encounter - Martha Plata - 02/17/2009 1:51 PM CDT Called [employer]. Approval given for CT Scan of back at [facility] on 02-21-09 Auth# [id number] Left info on Alan's voice mail at [facility] [phone] documented in this encounter Plan of Treatment Upcoming Encounters Date Type Department Care Team (Late st Contact Info) Description 07/27/2024 9:40 AM CDT Office Visit [facility] Primary Care [address] [place] [address] Eldon Koehler MD [address] [place] [address] [address] [place] [address] documented as of this encounter Visit Diagnoses Not on filedocumented in this encounter Care Teams Freezer Unloader Relationship Specialty Start Date End Date Eldon Koehler MD PCP - General 10/06/07 documented as of this encounter
--- OUTSIDE RECORDS SUMMARY | 2024-05-22 17:05 | XMS_ITS | Encounter Summary ---
Author Organization [facility] Address [address] [place] [address] Care Team Providers Care Auto Apprentice Mechanic Name Role Phone Eldon Koehler MD Primary Care Provider [phone] Reason for Visit * Reason Comments Cholesterol Problem Hypothyroid Encounter Details Date Type Department Care Team (Late st Contact Info) Description 10/20/2009 2:30 PM CDT Office Visit [facility] Internal Medicine [address] [address] Eldon Koheler MD [address] [place] [address] Other and Unspecified Hyperlipidemia; Depressive Disorder, not Elsewhere Classified; Unspecified Hypothyroidism; Osteoarth NOS-Unspec Social History Tobacco Use Types Packs/Day Years [...] Reading Time Taken Comments Blood Pressure 120/70 10/20/2009 2:36 PM CDT Pulse - - Temperature - - Respiratory Rate - - Oxygen Saturation - - Inhaled Oxygen Concentration - - Weight 121.1 kg (267 lb) 10/20/2009 2:36 PM CDT Height - - Body Mass Index 41.82 10/06/2007 12:13 PM CDT documented in this encounter Progress Notes * Eldon Koehler MD - 10/20/2009 2:51 PM CDT HISTORY OF PRESENT ILLNESS WINIFRED PIPER, a 59 y.o. female. HPI Right leg hurting since moving 2 months ago--stood a lot during move. Can't lay with it flat anymore. Feels like tibia is on fire, and real tender on back of knee. No swelling. Walking hurts. Worse with standing, walking, but never completely goes away. Thinks its sandoval splints. Eating worse during/since move. No real exercise because leg hurts. Soon will swim in pool. Doesn't sleep well, wakes up tired. Thinks it's because she doesn't sleep well because of pain. Recent labs reviewed. LDL up. Takes lipitor 40 mg every other day. Patient Active Problem List Diagnoses Code ??? [...] for dysuria. Musculoskeletal: Right leg pain on sandoval, behind knee. Skin: Negative for rash and itching. Neurological: Negative for dizziness, focal weakness, seizures and headaches. Psychiatric/Behavioral: Negative for depression. The patient is not nervous/anxious. PHYSICAL EXAM BP 120/70 Wt 267 lb (121.11 kg) Physical Exam Vitals reviewed. Constitutional: She [...] rebound and no guarding. Musculoskeletal: She exhibits edema. Trace bilateral LE. Lymphadenopathy: She has no cervical adenopathy. Neurological: She is alert and oriented to person, place, and time. Skin: Skin is warm and dry. She is not diaphoretic. ASSESSMENT and PLAN: Encounter Diagnoses 1. Other and Unspecified Hyperlipidemia (272.4) COMPREHENSIVE METABOLIC PANEL, LIPID PANEL 2. Depressive Disorder, not Elsewhere Classified (311) 3. Unspecified Hypothyroidism (244.9) TSH 4. Osteoarth NOS-Unspec (715.90) Sandoval splints: Explained to her that it may take weeks to fully resolve. The nature of cardiac risk has been [...] know if significant side effects do occur. documented in this encounter Plan of Treatment Upcoming Encounters Date Type Department Care Team (Late st Contact Info) Description 07/27/2024 9:40 AM CDT Office Visit [facility] Primary Care [address] [place] [address] Eldon Koehler MD [address] [place] [address] [address] [place] [address] documented as of this encounter Visit Diagnoses Diagnosis Other and unspecified hyperlipidemia Depressive disorder, not elsewhere classified Unspecified hypothyroidism Osteoarthrosis, unspecified whether generalized or localized, unspecified site documented in this encounter Care Teams Auto Apprentice Mechanic Relationship Specialty Start Date End Date Eldon Koehler MD PCP - General 10/06/07 documented as of this encounter
--- OUTSIDE RECORDS SUMMARY | 2024-05-22 17:05 | XMS_ITS | Encounter Summary ---
Author Organization [facility] Address [address] [place] [address] Care Team Providers Care Dimmer Board Operator Name Role Phone Eldon Koehler MD Primary Care Provider [phone] Encounter Details Date Type Department Care Team (Late st Contact Info) Description 03/14/2010 Abstract [facility] Internal Medicine [address] [address] Eldon Koehler MD [address] [place] [address] [address] [place] [address] Social History Tobacco Use Types [...] Visit [facility] Primary Care [facility] [address] [place] [address] [address] [place] [address] Eldon Koehler MD [address] [place] [address] [address] [place] [address] documented as of this encounter Visit Diagnoses Not on filedocumented in this encounter Care Teams Dimmer Board Operator Relationship Specialty Start Date End Date Eldon Koehler MD PCP - General 10/06/07 documented as of this encounter
--- OUTSIDE RECORDS SUMMARY | 2024-05-22 17:05 | XMS_ITS | Encounter Summary ---
Author Organization [facility] Address [address] [place] [address] Care Team Providers Care Lobster Catcher Name Role Phone Eldon Koehler MD Primary Care Provider [phone] Reason for Visit * Reason Onset Date Comments Cough 09/09/2008 Encounter Details Date Type Department Care Team (Late st Contact Info) Description 09/09/2008 Telephone [facility] Internal Medicine [address] [address] Eldon Koehler MD [address] [place] [address] Cough Social History Tobacco Use Types [...] * Telephone Encounter - Jacqueline Akhtar - 09/09/2008 2:16 PM CDT Pt states you were suppose to give her a refill on her zpak she went to the pharm to pick it up andthere was no refills also wanted to know if you want her to take more sterroids she still has a deep cough documented in this encounter Plan of Treatment Upcoming Encounters Date Type Department Care Team (Late st Contact Info) Description 07/27/2024 9:40 AM CDT Office Visit [facility] Primary Care [address] [place] [address] Eldon Koehler MD [address] [place] [address] [address] [place] [address] documented as of this encounter Visit Diagnoses Not on filedocumented in this encounter Care Teams Lobster Catcher Relationship Specialty Start Date End Date Eldon Koehler MD PCP - General 10/06/07 documented as of this encounter
--- OUTSIDE RECORDS SUMMARY | 2024-05-22 17:05 | XMS_ITS | Encounter Summary ---
Author Organization [facility] Address [address] [place] [address] Care Team Providers Care Inspector Penetrant Name Role Phone Eldon Koehler MD Primary Care Provider Encounter Details Date Type Department Care Team (Late st Contact Info) Description 11/03/2009 Orders Only [facility] Internal Medicine [address] [address] Eldon Koehler MD [address] [place] [address] [address] [place] [address] Screening Mammogram Social History Tobacco Use Types Packs/Day Years [...] Office Visit [facility] Primary Care [address] [place] [address] [place] [phone] Eldon Koehler MD [address] [place] [address] [address] [place] [address] documented as of this encounter Procedures Procedure Name Priority Date/Time Associated Diagnosis Comments MAMMO SCREEN BILAT W OR WO CAD Routine 10/30/2009 Screening Mammogram documented in this encounter Results * MAMMO DIGITAL SCREEN BILAT (10/30/2009) Anatomical Region Laterality Modality Breast Bilateral Other Eldon Koehler MD MAMMO ORDERABLES documented in this encounter Visit Diagnoses Diagnosis Screening mammogram Other screening mammogram documented in this encounter Care Teams Inspector Penetrant Relationship Specialty Start Date End Date Eldon Koehler MD PCP - General 10/06/07 documented as of this encounter
--- OUTSIDE RECORDS SUMMARY | 2024-05-22 17:05 | XMS_ITS | Encounter Summary ---
Author Organization [facility] Address [address] [place] [address] Dr. Brucen: [place] [address] Care Team Providers Care Structural Metal Fabricator Apprentice Name Role Phone Eldon Koehler MD Primary Care Provider [phone] Encounter Details Date Type Department Care Team (Late st Contact Info) Description 06/30/2008 Outpatient Historical Initial Department [address] [place] [address] ATTN: [place] [address] Social History Tobacco Use Types Packs/Day Years [...] [facility] Primary Care [place] [id number] [place] [phone] Eldon Koehler MD [address] [place] [address] [address] [place] [address] documented as of this encounter Procedures Procedure Name Priority Date/Time Associated Diagnosis Comments FERRITIN Routine 06/30/2008 8:00 AM LEAD APPLICATION ARCHITECT documented in this encounter Results * FERRITIN (06/30/2008 8:00 AM LEAD APPLICATION ARCHITECT) FERRITIN 159 10 - 232 ng/mL [facility] Comment: Test Performed at: [facility] [address] [facility] [place] ??[id number] MARY ANN DILLON MD Eldon Koehler MD CHEMISTRY ORDERABLES INTERFACE SYSTEM Refer to clinic/hospital department [employer] [facility] [address] [place] [address] documented in this encounter Visit Diagnoses Not on filedocumented in this encounter Care Teams Structural Metal Fabricator Apprentice Relationship Specialty Start Date End Date Eldon Koehler MD PCP - General 10/06/07 documented as of this encounter
--- OUTSIDE RECORDS SUMMARY | 2024-05-22 17:05 | XMS_ITS | Encounter Summary ---
Author Organization [facility] Address [address] [place] [address] Care Team Providers Care Bench Inspector Name Role Phone Eldon Koehler MD Primary Care Provider Reason for Visit * Reason Onset Date Comments Medication Refill 05/02/2010 Encounter Details Date Type Department Care Team (Late st Contact Info) Description 05/02/2010 Refill [facility] Internal Medicine [address] [phone] Eldon Koehler MD [address] [place] [address] [address] [place] [address] Social History Tobacco Use Types [...] Description 07/27/2024 9:40 AM CDT Office Visit [facility] Primary Care [address] [place] [address] Eldon Koehler MD [address] [place] [address] [address] [place] [address] documented as of this encounter Visit Diagnoses Not on filedocumented in this encounter Care Teams Bench Inspector Relationship Specialty Start Date End Date Eldon Koehler MD PCP - General 10/06/07 documented as of this encounter
--- OUTSIDE RECORDS SUMMARY | 2024-05-22 17:05 | XMS_ITS | Encounter Summary ---
Author Organization [facility] Address [address] [place] [address] Care Team Providers Care Nutritionist Public Health Name Role Phone Eldon Koehler MD Primary Care Provider Reason for Visit * Reason Onset Date Comments Cough 05/17/2010 Encounter Details Date Type Department Care Team (Late st Contact Info) Description 05/17/2010 Telephone [facility] Internal Medicine [address] [address] Eldon Koehler MD [address] [place] [address] Cough Social History Tobacco Use Types [...] * Telephone Encounter - Jacqueline Andrade - 05/17/2010 2:17 PM CST Pt states she is doing lots of coughing, she coughs so much she is vomiting she states she forgot to ask you about it, her cough is very deep in the chest Would like a rx for tessalon pearls sent to the pharmacy ICAL PHARMACIST documented in this encounter Plan of Treatment Upcoming Encounters Date Type Department Care Team (Late st Contact Info) Description 07/27/2024 9:40 AM CDT Office Visit [facility] Primary Care [address] [place] [address] Eldon Koehler MD [address] [place] [address] [address] [place] [address] documented as of this encounter Visit Diagnoses Not on filedocumented in this encounter Care Teams Nutritionist Public Health Relationship Specialty Start Date End Date Eldon Koehler MD PCP - General 10/06/07 documented as of this encounter
--- OUTSIDE RECORDS SUMMARY | 2024-05-22 17:05 | XMS_ITS | Encounter Summary ---
Author Organization [facility] Address [address] [place] [address] Care Team Providers Care Rail Detector Car Operator Name Role Phone Eldon Koehler MD Primary Care Provider [phone] Reason for Visit * Reason Onset Date Comments Other 01/22/2008 Encounter Details Date Type Department Care Team (Late Contact Info) Description 01/22/2008 Telephone [facility] Internal Medicine [address] [phone] Eldon Koehler MD [address] [place] [address] [address] [place] [address] Other Social History Tobacco Use [...] encounter Miscellaneous Notes * Telephone Encounter - 01/22/2008 10:42 AM CDT THEY NEED PRIOR AUTH FOR CELEBREX the patient WILL CALL INSURANCE AND GET PHONE NUMBERS documented in this encounter Plan of Treatment Upcoming Encounters Date Type Department Care Team (Late Contact Info) Description 07/27/2024 9:40 AM CDT Office Visit [facility] Primary Care [address] [place] [address] Eldon Koehler MD [address] [place] [address] documented as of this encounter Visit Diagnoses Not on filedocumented in this encounter Care Teams Rail Detector Car Operator Relationship Specialty Start Date End Date Eldon Koehler MD PCP - General 10/06/07 documented as of this encounter
--- OUTSIDE RECORDS SUMMARY | 2024-05-22 17:05 | XMS_ITS | Encounter Summary ---
Author Organization [facility] Address [address] [place] [address] Care Team Providers Care Outbound Telemarketing Representative Name Role Phone Eldon Koehler MD Primary Care Provider [phone] Reason for Visit * Reason Onset Date Comments Cough 08/17/2008 Encounter Details Date Type Department Care Team (Late st Contact Info) Description 08/17/2008 Telephone [facility] Internal Medicine [address] [address] Eldon Koehler MD [address] [place] [address] Cough Social History Tobacco Use Types [...] * Telephone Encounter - Jacqueline Akhtar - 08/17/2008 2:07 PM CDT SPOKE WITH PATIENT GAVE ABOVE INFORMATION * Telephone Encounter - Eldon Koehler MD - 08/17/2008 11:49 AM CDT Would add inhaler as well * Telephone Encounter - Jacqueline Akhtar - 08/17/2008 10:24 AM CDT Pt states she is coughing all night long going into her chest she's not able to sleep Would like a rx sent to her pharmacy for TESSALON PEARLS documented in this encounter Plan of Treatment Upcoming Encounters Date Type Department Care Team (Late st Contact Info) Description 07/27/2024 9:40 AM CDT Office Visit [facility] Primary Care [address] [place] [address] Eldon Koehler MD [address] [place] [address] [address] [place] [address] documented as of this encounter Visit Diagnoses Not on filedocumented in this encounter Care Teams Outbound Telemarketing Representative Relationship Specialty Start Date End Date Eldon Koehler MD PCP - General 10/06/07 documented as of this encounter
--- OUTSIDE RECORDS SUMMARY | 2024-05-22 17:05 | XMS_ITS | Encounter Summary ---
Author Organization [facility] Address [address] [place] [address] Care Team Providers Care Button Maker And Installer Name Role Phone Eldon Koehler MD Primary Care Provider [phone] Reason for Visit * Reason Onset Date Comments Referral 10/17/2008 Encounter Details Date Type Department Care Team (Late st Contact Info) Description 10/17/2008 Telephone [facility] Internal Medicine [address] [address] Eldon Koehler MD [address] [place] [address] Referral Social History Tobacco Use Types [...] Telephone Encounter - Eldon Koehler MD - 10/17/2008 10:53 AM CDT ok * Telephone Encounter - Sofi Raman - 10/17/2008 10:22 AM CDT CRS called patient and patient stated she would call back - no contact made- letter sent by crs - please advise if ok to close referral request to sleep center. documented in this encounter Plan of Treatment Upcoming Encounters Date Type Department Care Team (Late st Contact Info) Description 07/27/2024 9:40 AM CDT Office Visit [facility] Primary Care [address] [place] [address] Eldon Koehler MD [address] [place] [address] [address] [place] [address] documented as of this encounter Visit Diagnoses Not on filedocumented in this encounter Care Teams Button Maker And Installer Relationship Specialty Start Date End Date Eldon Koehler MD PCP - General 10/06/07 documented as of this encounter
--- OUTSIDE RECORDS SUMMARY | 2024-05-22 17:05 | XMS_ITS | Encounter Summary ---
Author Organization [facility] Address [address] [place] [address] Care Team Providers Care Driver Engineer Name Role Phone Eldon Koehler MD Primary Care Provider Reason for Visit * Reason Onset Date Comments Medication Refill 06/08/2008 Encounter Details Date Type Department Care Team (Late st Contact Info) Description 06/08/[address] [facility] Internal Medicine [address] [phone] Eldon Koehler MD [address] [place] [address] [address] [place] [address] Social History Tobacco Use Types [...] Visit [facility] Primary Care [address] [place] [address] Eldon Koehler MD [address] [place] [address] [address] [place] [address] documented as of this encounter Visit Diagnoses Not on filedocumented in this encounter Care Teams Driver Engineer Relationship Specialty Start Date End Date Eldon Koehler MD PCP - General 10/06/07 documented as of this encounter
--- OUTSIDE RECORDS SUMMARY | 2024-05-22 17:05 | XMS_ITS | Encounter Summary ---
Author Organization [facility] Address [address] [place] [address] Care Team Providers Care Small Products I Assembler Name Role Phone Eldon Koehler MD Primary Care Provider [phone] Reason for Visit * Reason Onset Date Comments Results 05/30/2010 Encounter Details Date Type Department Care Team (Late st Contact Info) Description 05/30/2010 Telephone [facility] Internal Medicine [address] [address] Eldon Koehler MD [address] [place] [phone] Results Social History Tobacco Use Types [...] * Telephone Encounter - Martha Plata - 05/30/2010 4:26 PM CST Spoke to patient H ATTENDANT * Telephone Encounter - Eldon Koehler MD - 05/30/2010 11:52 AM CST Chest x ray ok H ATTENDANT documented in this encounter Plan of Treatment Upcoming Encounters Date Type Department Care Team (Late st Contact Info) Description 07/27/2024 9:40 AM CDT Office Visit [facility] Primary Care [address] [place] [address] Eldon Koehler MD [address] [place] [address] [address] [place] [address] documented as of this encounter Visit Diagnoses Not on filedocumented in this encounter Care Teams Small Products I Assembler Relationship Specialty Start Date End Date Eldon Koehler MD PCP - General 10/06/07 documented as of this encounter
--- OUTSIDE RECORDS SUMMARY | 2024-05-22 17:05 | XMS_ITS | Encounter Summary ---
Author Organization [facility] Address [address] [place] [address] Care Team Providers Care Hotel Guest Service Agent Name Role Phone Eldon Koehler MD Primary Care Provider [phone] Reason for Visit * Reason Onset Date Comments Medication Refill 06/14/2009 Encounter Details Date Type Department Care Team (Late st Contact Info) Description 06/14/2009 Refill [facility] Internal Medicine [address] [address] Eldon Koehler MD [address] [place] [address] Social History Tobacco Use Types Packs/Day [...] * Telephone Encounter - Mitra Ward - 06/14/2009 4:17 PM CST Pt missed her Marquise ov. Called pt & she r/s for next 06/23/09. ERCIAL INTERN documented in this encounter Plan of Treatment Upcoming Encounters Date Type Department Care Team (Late st Contact Info) Description 07/27/2024 9:40 AM CDT Office Visit [facility] Primary Care [address] [place] [address] Eldon Koehler MD [address] [place] [address] [address] [place] [address] documented as of this encounter Visit Diagnoses Not on filedocumented in this encounter Care Teams Hotel Guest Service Agent Relationship Specialty Start Date End Date Eldon Koehler MD PCP - General 10/06/07 documented as of this encounter
--- OUTSIDE RECORDS SUMMARY | 2024-05-22 17:05 | XMS_ITS | Encounter Summary ---
Author Organization [facility] Address [address] [place] [address] Care Team Providers Care Cleaning And Washing Equipment Operator Name Role Phone Eldon Koehler MD Primary Care Provider Reason for Visit * Reason Onset Date Comments Medication Refill 02/13/2009 Encounter Details Date Type Department Care Team (Late st Contact Info) Description 02/13/2009 Refill [facility] Internal Medicine [address] [phone] Eldon Koehler MD [address] [place] [address] [address] [place] [address] Social History Tobacco Use Types [...] [facility] Primary Care [address] [place] [address] Eldon Koehler MD [address] [place] [address] [address] [place] [address] documented as of this encounter Visit Diagnoses Not on filedocumented in this encounter Care Teams Cleaning And Washing Equipment Operator Relationship Specialty Start Date End Date Eldon Koehler MD PCP - General 10/06/07 documented as of this encounter
--- OUTSIDE RECORDS SUMMARY | 2024-05-22 17:05 | XMS_ITS | Encounter Summary ---
Author Organization [facility] Address [address] [place] [address] Care Team Providers Care Corner Block Cutter Name Role Phone Eldon Koehler MD Primary Care Provider Reason for Referral * Consult, Test & Treat (Routine) - Closed Specialty Diagnoses / Procedures Referred By Carmen t Referred To Contact Sleep Center Diagnoses Unspecified sleep apnea Eldon Koehler MD [address] [place] [id number] Referral ID Status Reason Start Date Expiration Date V isits Requested Visits Authorized [id number] Closed Ordering Dept To Review (STL) 09/28/2008 09/28/2009 3 3 Reason for Visit * Reason Comments Sore Throat glands swollen, exha usted Encounter Details Date Type Department Care Team (Latest Contact Info) Description 09/28/2008 10:30 AM CDT Office Visit [facility] Internal Medicine [address] [address] Eldon Koehler MD [address] [place] [address] [address] [place] [address] Unspecified Asthma; Unspecified Sleep Apnea; Impaired Fasting Glucose; Unspecified Hypothyroidism; Malaise and Fatigue; Other and Unspecified Hyperlipidemia Social History Tobacco Use Types Packs/Day [...] Reading Time Taken Comments Blood Pressure 110/80 09/28/2008 10:32 AM CDT Pulse - - Temperature - - Respiratory Rate - - Oxygen Saturation - - Inhaled Oxygen Concentration - - Weight 118.4 kg (261 lb) 09/28/2008 10:32 AM CDT Height - - Body Mass Index 40.88 10/06/2007 12:13 PM CDT documented in this encounter Progress Notes * Eldon Koehler MD - 09/28/2008 12:35 PM CDT Subjective: WINIFRED PIPER is a 58 y.o. female. Excessive fatigue similar to when had cfs yrs ago rec sore throat gland swellingcomes and goes Snoring fatigue present No definite gerd sx Lab pend stil with chronic cough, but slow improvement inh helping Little improvement with abx Patient Active Problem List Diagnoses Date Noted [...] Normal Exam for Routine Visits: \Blood pressure 110/80, weight 261 lb (118.389 kg). General appearance: [...] abdomen. Lymphatics: No focal or generalized lymphadenopathy. Assessment and Plan: ASSESSMENT: Encounter Diagnoses Code Name Primary? Qualifier ??? 493.90 Unspecified Asthma Plan: XR CHEST PA AND LATERAL ??? 780.57 Unspecified Sleep Apnea Plan: AMB REFERRAL TO SLEEP STUDIES ??? 790.21 Impaired Fasting Glucose ??? 244.9 Unspecified Hypothyroidism Plan: TSH ??? 780.79Z Malaise and Fatigue Plan: CBC WITH DIFFERENTIAL, VITAMIN B12, SEDIMENTATION RATE ??? 272.4 Other and Unspecified Hyperlipidemia Plan: COMPREHENSIVE METABOLIC PANEL, LIPID PANEL, CK The nature of cardiac risk has been fully discussed with this patient. I have made her aware of herLDL target goal given her cardiovascular risk analysis. I have discussed the appropriate diet. The need for lifelong compliance in order to reduce risk is stressed. A regular exercise program is recommended to help achieve and maintain normal body weight, fitness and improve lipid balance. rx possible gerd Check xr Try provigil if not improving 1 week sample given Cont inh Review lab pend PLAN: Orders Placed This Encounter ??? Xr chest pa and lateral ??? Cbc with differential ??? Comprehensive metabolic panel ??? Lipid panel ??? Tsh ??? Vitamin b12 ??? Sedimentation rate ??? Ck ??? Amb referral to sleep studies ??? Omeprazole 20 mg tab, delayed release ??? Montelukast 10 mg tab ??? Modafinil 100 mg tab ??? Fluticasone-salmeterol 250 mcg-50 mcg/dose disk device for inhalation Appropriate medications prescribed (see detailed AVS). Appropriate [...] [facility] Primary Care [address] [place] [address] Eldon Koehler MD [address] [place] [address] [place] [address] [place] [address] Scheduled Referrals Name Type Priority Associated Diagnoses Orde r Schedule AMB REFERRAL TO SLEEP STUDIES Outpatient Referral Routine Unspecified Sleep Apnea Ordered: 09/28/2008 documented as of this encounter Procedures Procedure Name Priority Date/Time Associated Diagnosis Comments SEDIMENTATION RATE Routine 10/08/2008 12 :00 PM CDT TSH Routine 10/08/2008 12:00 PM CDT VITAMIN B12 LEVEL Routine 10/08/2008 12: 00 PM CDT CK Routine 10/08/2008 9:00 AM CDT LIPID PANEL Routine 10/08/2008 9:00 AM CDT COMPREHENSIVE METABOLIC PANEL Routine 10/08/2008 9:00 AM CDT CBC WITH DIFFERENTIAL Routine 10/08/2008 8:00 AM CDT documented in this encounter Results * SEDIMENTATION RATE (10/08/2008 12:00 PM CDT) [facility] ESR (SEDIMENTATION RATE) 11 < OR = 30 mm/h [facility] Comment: Test Performed at: [email or web address] ??[address] SYLWIA EUGENE MD Eldon Koehler MD HEMATOLOGY ORDERABLE S Performing Organization Address [facility] Phone Number INTERFACE SYSTEM Refer to clinic/[place] [address] * VITAMIN B12 (10/08/2008 12:00 PM CDT) [facility] VITAMIN B12 414 200 - 1100 pg/mL [facility] Comment: Test Performed at: [email or web address] ??[address] SYLWIA EUGENE MD Eldon Koehler MD CHEMISTRY ORDERABLES Performing Organization Address [facility] Phone Number INTERFACE SYSTEM Refer to clinic/[place] [address] * TSH (10/08/2008 12:00 PM CDT) [facility] TSH 1.53 0.40 - 4.50 mIU/L [facility] Comment: Test Performed at: [facility] [place] [address] [place], [place] ??[address] SYLWIA EUGENE MD Eldon Koehler MD CHEMISTRY ORDERABLES Performing Organization Address City/[facility] Co de Phone Number INTERFACE SYSTEM Refer to clinic/hospital department [address] [address] * CK (10/08/2008 9:00 AM CDT) CK 55 29 - 143 U/L [facility] Comment: Test Performed at: [email or web address] ??[phone] SYLWIA EUGENE MD Eldon Koehler MD CHEMISTRY ORDERABLES Performing Organization Address [facility] Phone Number INTERFACE SYSTEM Refer to clinic/[place] [address] * (ABNORMAL) COMPREHENSIVE METABOLIC PANEL (10/08/2008 9:00 AM CDT) GLUCOSE 93 65 - 99 mg/dL [facility] Comment:FASTING REFERENCE IN TERVAL BUN 16 7 - 25 mg/dL [facility] . [facility] CREATININE 0.92 0.60 - 1.10 mg/dL [facility] . [facility] GFR >60 > OR = 60 mL/min/1 .73m2 [facility] GFR, >60 > OR = 60 mL/min/1 .73m2 [facility] . [facility] BUN/CREAT RATIO NOT APPLICABLE 6 - 22 (calc) [facility] [employer] Comment: BUN/CREATININE RATIO IS NOT REPORTED WHEN THE BUN AND CREATININE VALUES ARE WITHIN NORMAL LIMITS. SODIUM 141 135 - 146 mmol/L [facility] . [facility] POTASSIUM 4.6 3.5 - 5.3 mmol/L [facility] . [place] CHLORIDE 104 98 - 110 mmol/L [facility] . [facility] CO2 28 21 - 33 mmol/L [facility] . [facility] CALCIUM 9.2 8.6 - 10.2 mg/dL [facility] . [facility] TOTAL PROTEIN 6.6 6.2 - 8.3 g/dL [facility] ALBUMIN 4.0 3.6 - 5.1 g/dL [facility] . [place] GLOBULIN 2.6 2.2 - 3.9 g/dL (calc) [facility] . [facility] ALBUMIN/GLOBULI N RATIO 1.5 1.0 - 2.1 (calc) [facility] . [facility] BILIRUBIN TOTAL 0.7 0.2 - 1.2 mg/dL [facility] ALKALINE PHOSPHATASE 132(H) 33 - 130 U/L [facility] . [facility] AST 16 10 - 35 U/L [facility]. [facility] ALT 19 6 - 40 U/L [facility] . [facility] Comment: Test Performed at: [facility] [address] [place] [address] ??[phone] SYLWIA EUGENE MD Eldon Koehler MD CHEMISTRY ORDERABLES Performing Organization Address City/[facility] Co tx Phone Number INTERFACE SYSTEM Refer to clinic/hospital department [address] [address] * LIPID PANEL (10/08/2008 9:00 AM CDT) TRIGLYCERIDE 109 <150 mg/dL [facility] [employer] Comment: Test Performed at: [employer] [place] ??[address] SYLWIA EUGENE MD CHOLESTEROL 155 125 - 200 mg/dL [facility] HDL 52 > OR = 46 mg/dL [facility] LDL CALCULATED 81 <130 mg/dL (calc) [facility] Comment: DESIRABLE RANGE <100 MG/DL FOR PATIENTS WITH CHD OR DIABETES AND <70 MG/DL FOR DIABETIC PATIENTS WITH KNOWN HEART DISEASE. CHOL/HDL RATIO 3.0 < OR = 5.0 (calc) [facility] Eldon Koehler MD CHEMISTRY ORDERABLES Performing Organization Address City/[facility] Co de Phone Number INTERFACE SYSTEM Refer to clinic/[place] [address] * (ABNORMAL) CBC WITH DIFFERENTIAL (10/08/2008 8:00 AM CDT) WBC 8.6 3.8 - 10.8 Thousand/ uL [facility] RBC 4.46 3.80 - 5.10 Million/u L [facility] . [place] HEMOGLOBIN 13.0 11.7 - 15.5 g/dL [facility] . [place] HEMATOCRIT 39.9 35.0 - 45.0 % [facility] . [place] MCV 89.5 80.0 - 100.0 fL [facility] . [place] MCH 29.1 27.0 - 33.0 pg [facility] . [place] MCHC 32.6 32.0 - 36.0 g/dL [facility] RDW 16.6(H) 11.0 - 15.0 % [facility] . [place] PLATELETS 326 140 - 400 Thousand/ uL [facility] . [place] NEUTROPHIL ABSOLUTE 5,865 1,500 - 7,800 cells/uL [facility] . [place] LYMPHOCYTE ABSOLUTE 1,952 850 - 3,900 cells/uL [facility] . [place] MONOCYTE ABSOLUTE 568 200 - 950 cells/uL [facility] . [place] EOSINOPHIL ABSOLUTE 189 15 - 500 cells/uL [facility] . [place] BASOPHILS ABSOLUTE 26 0 - 200 cells/uL [facility] NEUTROPHIL 68.2 % [facility] . [place] LYMPHOCYTES 22.7 % [facility] . [place] MONOCYTE 6.6 % [facility] . [place] EOSINOPHILS 2.2 % [facility] . [place] BASOPHILS 0.3 % [facility] . [facility] Comment: Test Performed at: [facility] [place] [address] [place], [place] ??[address] SYLWIA EUGENE MD Eldon Koehler MD HEMATOLOGY ORDERABLE S INTERFACE SYSTEM Refer to clinic/hospital department [facility] [address] [place] [address] documented in this encounter Visit Diagnoses Diagnosis Unspecified asthma(493.90) Unspecified asthma Unspecified sleep apnea Impaired fasting glucose Unspecified hypothyroidism Malaise and fatigue Other malaise and fatigue Other and unspecified hyperlipidemia documented in this encounter Care Teams Corner Block Cutter Relationship Specialty Start Date End Date Eldon Koehler MD PCP - General 5/27/08 documented as of this encounter
--- OUTSIDE RECORDS SUMMARY | 2024-05-22 17:05 | XMS_ITS | Encounter Summary ---
Author Organization [facility] Address [address] [place] [address] Care Team Providers Care Home Therapy Clinician Name Role Phone Eldon Koehler MD Primary Care Provider [phone] Reason for Visit * Reason Onset Date Comments Medication Refill 12/30/2007 Encounter Details Date Type Department Care Team (Late st Contact Info) Description 12/30/2007 Refill [facility] Internal Medicine [address] [address] Eldon Koehler MD [address] [place] [address] Social History Tobacco Use Types Packs/Day [...] * Telephone Encounter - Mitra Ward - 12/30/2007 5:22 PM CDT SCRIPTS MAILED TO PT. * Telephone Encounter - Mitra Ward - 12/30/2007 4:37 PM CDT PT WOULD LIKE 90 DAY SUPPLY SCRIPTS MAILED TO HER TO SEND TO [facility]IL ORDER [facility]. documented in this encounter Plan of Treatment Upcoming Encounters Date Type Department Care Team (Late st Contact Info) Description 07/27/2024 9:40 AM CDT Office Visit [facility] Primary Care [address] [place] [address] Eldon Koehler MD [address] [place] [address] [place] [address] documented as of this encounter Visit Diagnoses Not on filedocumented in this encounter Care Teams Home Therapy Clinician Relationship Specialty Start Date End Date Eldon Koehler MD PCP - General 10/06/07 documented as of this encounter
--- OUTSIDE RECORDS SUMMARY | 2024-05-22 17:05 | XMS_ITS | Encounter Summary ---
Author Organization [facility] Address [address] [place] [address] Care Team Providers Care Insole Beveler Name Role Phone Eldon Koehler MD Primary Care Provider [phone] Reason for Visit * Reason Comments Other restless leg. Encounter Details Date Type Department Care Team (Late st Contact Info) Description 05/17/2008 11:45 AM RESPOOLER Office Visit [facility] Internal Medicine [address] [address] Eldon Koehler MD [address] [place] [address] Restless Leg Syndrome; Insomnia Social History Tobacco Use Types Packs/Day Years [...] Sign Reading Time Taken Comments Blood Pressure 120/78 05/17/2008 11:56 AM RESPOOLER Pulse - - Temperature - - Respiratory Rate - - Oxygen Saturation - - Inhaled Oxygen Concentration - - Weight 113.4 kg (250 lb) 05/17/2008 11:56 AM RESPOOLER Height - - Body Mass Index 39.16 10/06/2007 12:13 PM CDT documented in this encounter Progress Notes * Eldon Koehler MD - 05/17/2008 1:04 PM CST Inc insomnia recent Pt qu iron issues Had etoh recent -unusual for her Declines sleep study-does not feel she would vickie rx if positive The patient appears alert, well appearing, and in no distress.- ENT exam normal, no neck nodes or sinus tenderness., Chest:clear to auscultation, no wheezes, rales or rhonchi, symmetric air entry. Heart sounds are normal. Abdomen soft, nontender, no masses or organomegaly. ASSESSMENT: Encounter Diagnoses Name Primary? Restless Leg Syndrome ??? Insomnia PLAN: Orders Placed This Encounter ??? Ferritin ??? Citalopram 20 mg tab ??? Ferrous gluconate 300 mg (35 mg iron) tab ??? Temazepam 15 mg cap ??? Neurontin 300 mg cap Step winslow--check lab,iron if appropriate, try celexa,dc prozc, restoril if needed, consider neurontin if other does not work OOLER documented in this encounter Plan of Treatment Upcoming Encounters Date Type Department Care Team (Late st Contact Info) Description 07/27/2024 9:40 AM CDT Office Visit [facility] Primary Care [address] [place] [address] Eldon Koehler MD [address] [place] [address] [address] [place] [address] documented as of this encounter Visit Diagnoses Diagnosis Restless leg syndrome Restless legs syndrome (RLS) Insomnia Insomnia, unspecified documented in this encounter Care Teams Insole Beveler Relationship Specialty Start Date End Date Eldon Koehler MD PCP - General 10/06/07 documented as of this encounter
--- OUTSIDE RECORDS SUMMARY | 2024-05-22 17:05 | XMS_ITS | Encounter Summary ---
Author Organization [facility] Address [address] [place] [address] Care Team Providers Care Room Manager Name Role Phone Eldon Koehler MD Primary Care Provider [phone] Reason for Visit * Reason Comments Cholesterol Problem Hypothyroid Encounter Details Date Type Department Care Team (Late st Contact Info) Description 04/21/2008 10:15 AM AMPHIBIOUS OPERATIONS OFFICER Office Visit [facility] Internal Medicine [address] [address] Eldon Koehler MD [address] [place] [address] Other and Unspecified Hyperlipidemia; Unspecified Hypothyroidism; Restless Leg Syndrome Social History Tobacco Use Types Packs/Day Years [...] Reading Time Taken Comments Blood Pressure 120/70 04/21/2008 10:26 AM AMPHIBIOUS OPERATIONS OFFICER Pulse - - Temperature - - Respiratory Rate - - Oxygen Saturation - - Inhaled Oxygen Concentration - - Weight 115.2 kg (254 lb) 04/21/2008 10:26 AM AMPHIBIOUS OPERATIONS OFFICER Height - - Body Mass Index 39.78 10/06/2007 12:13 PM CDT documented in this encounter Progress Notes * Eldon Koehler MD - 04/21/2008 12:51 PM CST Subjective: WINIFRED PIPER is a 57 y.o. female. rls unchanged but helps but cost issues Lost wt, lab improved Back occ pain depn stable Patient Active Problem List Diagnoses Date Noted [...] significant history is obtained from the patient: Respiratory: denies cough, dyspnea, hemoptysis, stridor, wheeze, chest pain Cardiovascular: denies chest pain or discomfort, exertional chest pressure/discomfort, fatigue, pounding heart/chest, nausea, syncope, shortness of breath Gastrointestinal: denies abdominal pain, change in bowel habits, constipation, diarrhea, dyspepsia,dsyphagia, hematochezia, reflux symptoms, vomiting Genitourinary: denies dysuria, frequency, hematuria, hesitancy, nocturia, urinary incontinence Exam/Objective: Normal Exam for Routine Visits: \Blood pressure 120/70, weight 254 lb (115.214 kg). General appearance: healthy appearing, active, alert, [...] abdomen. Lymphatics: No focal or generalized lymphadenopathy. Mild inflammation hands, pip and dip jts Assessment and Plan: ASSESSMENT: Encounter Diagnoses Code Name Primary? Qualifier ??? 272.4 Other and Unspecified Hyperlipidemia Plan: COMPREHENSIVE METABOLIC PANEL, LIPID PANEL ??? 244.9 Unspecified Hypothyroidism Plan: TSH REFLEXIVE ??? 333.94J Restless Leg Syndrome The nature of cardiac risk has been fully discussed with this patient. I have made her aware of herLDL target goal given her cardiovascular risk analysis. I have discussed the appropriate diet. The need for lifelong compliance in order to reduce risk is stressed. A regular exercise program is recommended to help achieve and maintain normal body weight, fitness and improve lipid balance. Inc thyroid dose Cont diet and ex program PLAN: Orders Placed This Encounter ??? Comprehensive metabolic panel ??? Lipid panel ??? Tsh reflexive ??? Synthroid 100 mcg tab ??? Ropinirole 0.5 mg tab ??? Azithromycin 250 mg tab Appropriate medications prescribed (see detailed AVS). Appropriate patient instructions provided (see detailed AVS). Follow-up as I have indicated. Medications and options explained to include common side effects. Understanding of medications, course, diagnosis, and expectations were expressed by patient/guardian. ' IBIOUS OPERATIONS OFFICER documented in this encounter Plan of Treatment Upcoming Encounters Date Type Department Care Team (Late st Contact Info) Description 07/27/2024 9:40 AM CDT Office Visit [facility] Primary Care [address] [place] [address] Eldon Koehler MD [address] [place] [address] [address] [place] [address] documented as of this encounter Visit Diagnoses Diagnosis Other and unspecified hyperlipidemia Unspecified hypothyroidism Restless leg syndrome Restless legs syndrome (RLS) documented in this encounter Care Teams Room Manager Relationship Specialty Start Date End Date Eldon Koehler MD PCP - General 10/06/07 documented as of this encounter
--- OUTSIDE RECORDS SUMMARY | 2024-05-22 17:05 | XMS_ITS | Encounter Summary ---
Author Organization [facility] Address [address] [place] [address] Care Team Providers Care Certified Physician Assistant Name Role Phone Eldon Koehler MD Primary Care Provider [phone] Reason for Visit * Reason Comments Cough Chest Tightness Diarrhea Encounter Details Date Type Department Care Team (Late st Contact Info) Description 05/22/2010 3:30 PM ASSOCIATE PROFESSOR Office Visit [facility] Internal Medicine [address] [address] Eldon Koehler MD [address] [place] [address] Hemoptysis (Primary Dx); Acute bronchitis Social History Tobacco [...] Sign Reading Time Taken Comments Blood Pressure 122/70 05/22/2010 3:27 PM ASSOCIATE PROFESSOR Pulse - - Temperature 37.1 ??C (98.8 ??F) 05/22/2010 3:27 PM CS T Respiratory Rate - - Oxygen Saturation - - Inhaled Oxygen Concentration - - Weight 122.5 kg (270 lb) 05/22/2010 3:27 PM ASSOCIATE PROFESSOR Height - - Body Mass Index 42.29 10/06/2007 12:13 PM CDT documented in this encounter Progress Notes * Eldon Koehler MD - 05/22/2010 5:13 PM CST Still with cough coughing blood occ use advil No fever Slight improvement Diarrhea with zpak Inc stress with Reynaldo back into drugs The patient appears alert, well appearing, and in no distress.- ENT examaf level tms, no neck nodesor sinus tenderness., Chest:clear to auscultation, no wheezes, rales or rhonchi, symmetric air entry. Heart sounds are normal. Abdomen soft, nontender, no masses or organomegaly. ASSESSMENT: Encounter Diagnoses Name Primary? Hemoptysis Yes ??? Acute bronchitis PLAN: Orders Placed This Encounter ??? Xr chest pa and lateral ??? Albuterol (proventil,ventolin) 90 mcg/actuation inhalation hfaa ??? Hydrocodone-acetaminophen (lortab) 5-500 mg oral tablet CIATE PROFESSOR documented in this encounter Plan of Treatment Upcoming Encounters Date Type Department Care Team (Late st Contact Info) Description 07/27/2024 9:40 AM CDT Office Visit [facility] Primary Care [address] [place] [address] Eldon Koehler MD [address] [place] [address] [address] [place] [address] Scheduled Orders Name Type Priority Associated Diagnoses Orde r Schedule XR CHEST PA AND LATERAL Imaging Routine Hemoptysis 1 Occurrences starting 05/22/2010 until 05/22/2011 documented as of this encounter Visit Diagnoses Diagnosis Hemoptysis- Primary Hemoptysis, unspecified Acute bronchitis documented in this encounter Care Teams Certified Physician Assistant Relationship Specialty Start Date End Date Eldon Koehler MD PCP - General 10/06/07 documented as of this encounter
--- OUTSIDE RECORDS SUMMARY | 2024-05-22 17:05 | XMS_ITS | Encounter Summary ---
Author Organization [facility] Address [address] [place] [address] Care Team Providers Care Tavern Operator Name Role Phone Eldon Koehler MD Primary Care Provider [phone] Reason for Visit * Reason Onset Date Comments Results 10/22/2007 Encounter Details Date Type Department Care Team (Late Contact Info) Description 10/22/2007 Telephone [facility] Internal Medicine [address] [address] Eldon Koehler MD [address] [place] [address] Results Social History Tobacco Use Types [...] Telephone Encounter - Eldon Koehler MD - 10/22/2007 6:36 PM CDT Sx better with celebrex--cont medother lab reviewed--no evid inflammatory arthritis documented in this encounter Plan of Treatment Upcoming Encounters Date Type Department Care Team (Late st Contact Info) Description 07/27/2024 9:40 AM CDT Office Visit [facility] Primary Care [address] [place] [address] Eldon Koehler MD [address] [place] [address] [address] [place] [address] documented as of this encounter Visit Diagnoses Not on filedocumented in this encounter Care Teams Tavern Operator Relationship Specialty Start Date End Date Eldon Koehler MD PCP - General 10/06/07 documented as of this encounter
--- OUTSIDE RECORDS SUMMARY | 2024-05-22 17:05 | XMS_ITS | Encounter Summary ---
Author Organization [facility] Address [address] [place] [address] Care Team Providers Care Massage Therapist Name Role Phone Eldon Koehler MD Primary Care Provider [phone] Reason for Visit * Reason Onset Date Comments Other 02/01/2008 Encounter Details Date Type Department Care Team (Late Contact Info) Description 02/01/2008 Telephone [facility] Internal Medicine [address] [address] Eldon Koehler MD [address] [place] [address] [address] [place] [address] Other Social History Tobacco Use [...] Visit [facility] Primary Care [address] [place] [address] Eldon Koehler MD [address] [place] [address] [address] [place] [address] documented as of this encounter Visit Diagnoses Not on filedocumented in this encounter Care Teams Massage Therapist Relationship Specialty Start Date End Date Eldon Koehler MD PCP - General 10/06/07 documented as of this encounter
--- OUTSIDE RECORDS SUMMARY | 2024-05-22 17:05 | XMS_ITS | Encounter Summary ---
Author Organization [facility] Address [address] [place] [address] Care Team Providers Care Packing Room Inspector Name Role Phone Eldon Koehler MD Primary Care Provider [phone] Encounter Details Date Type Department Care Team (Late st Contact Info) Description 01/04/2010 Abstract [facility] Internal Medicine [address] [address] Eldon Koehler MD [address] [place] [address] [address] [place] [address] Social History Tobacco Use Types [...] [facility] Primary Care [facility] [address] [place] [address] [address] [place] [address] Eldon Koehler MD [address] [place] [address] [address] [place] [address] documented as of this encounter Visit Diagnoses Not on filedocumented in this encounter Care Teams Packing Room Inspector Relationship Specialty Start Date End Date Eldon Koehler MD PCP - General 10/06/07 documented as of this encounter
--- OUTSIDE RECORDS SUMMARY | 2024-05-22 17:05 | XMS_ITS | Encounter Summary ---
Author Organization [facility] Address [address] [place] [address] Care Team Providers Care Die Inspector Name Role Phone Eldon Koehler MD Primary Care Provider [phone] Reason for Visit * Reason Comments Sore Throat since Friday, had stomach flu last Friday-Friday(vomiting and diarrhea, fever) Encounter Details Date Type Department Care Team (Late st Contact Info) Description 08/15/2008 10:45 AM CDT Office Visit [facility] Internal Medicine [address] [address] Eldon Koehler MD [address] [place] [address] Acute Pharyngitis; Unspecified Asthma Social History Tobacco Use Types [...] Reading Time Taken Comments Blood Pressure 110/80 08/15/2008 10:48 AM CDT Pulse - - Temperature 36.6 ??C (97.9 ??F) 08/15/2008 10:48 AM C DT Respiratory Rate - - Oxygen Saturation - - Inhaled Oxygen Concentration - - Weight 117.5 kg (259 lb) 08/15/2008 10:48 AM CDT Height - - Body Mass Index 40.57 10/06/2007 12:13 PM CDT documented in this encounter Progress Notes * Eldon Koehler MD - 08/15/2008 11:06 AM CDT 3d n, v diarrhea, then sore throat, then inc sore throat--no fever, no sinus, The patient denies cough, chest pain, dyspnea, wheezing [...] organomegaly. ASSESSMENT: Encounter Diagnoses Name Primary? Acute Pharyngitis ??? Unspecified Asthma PLAN: Orders Placed This Encounter ??? Cefuroxime axetil 250 mg tab \ documented in this encounter Plan of Treatment Upcoming Encounters Date Type Department Care Team (Late st Contact Info) Description 07/27/2024 9:40 AM CDT Office Visit [facility] Primary Care [address] [place] [address] Eldon Koehler MD [address] [place] [phone] documented as of this encounter Visit Diagnoses Diagnosis Acute pharyngitis Unspecified asthma(493.90) Unspecified asthma documented in this encounter Care Teams Die Inspector Relationship Specialty Start Date End Date Eldon Koehler MD PCP - General 10/06/07 documented as of this encounter
--- OUTSIDE RECORDS SUMMARY | 2024-05-22 17:05 | XMS_ITS | Encounter Summary ---
Author Organization [facility] Address [address] [place] [address] Care Team Providers Care Leather Skinner Name Role Phone Eldon Koehler MD Primary Care Provider [phone] Reason for Visit * Reason Onset Date Comments Medication Refill 04/24/2009 Encounter Details Date Type Department Care Team (Late st Contact Info) Description 04/24/2009 Refill [facility] Internal Medicine [address] [phone] Eldon Koehler MD [address] [place] [address] [address] [place] [address] Social History Tobacco Use Types [...] Visit [facility] Primary Care [address] [place] [address] Eldon Koehler MD [address] [place] [address] [address] [place] [address] documented as of this encounter Visit Diagnoses Not on filedocumented in this encounter Care Teams Leather Skinner Relationship Specialty Start Date End Date Eldon Koehler MD PCP - General 10/06/07 documented as of this encounter
--- OUTSIDE RECORDS SUMMARY | 2024-05-22 17:05 | XMS_ITS | Encounter Summary ---
Author Organization [facility] Address [address] [place] [address] Care Team Providers Care Clinical Advisor Name Role Phone Eldon Koehler MD Primary Care Provider Reason for Referral * Outpatient Services (Routine) - Closed Specialty Diagnoses / Procedures Referred By Carmen villalobos Referred To Contact Radiology Diagnoses Screening mammogram Procedures MAMMO DIGITAL SCREEN BILAT Eldon Koehler MD [address] [place] [address] Referral ID Status Reason Start Date Expiration Date Visits Re quested Visits Authorized [id number] Closed 06/23/2009 12/20/2009 1 1 RMATION COORDINATOR * Consult, Test & Treat (Routine) - Closed Specialty Diagnoses / Procedures Referred By Carmen villalobos Referred To Contact Gastroenterology Diagnoses Family hx of colon cancer Eldon Koehler MD [address] [place] [address] Wilfrid Khoury DO NO ADDRESS ON FILE Referral ID Status Reason Start Date Expiration Date V isits Requested Visits Authorized [id number] Closed Ordering Dept To Review (STL) 06/23/2009 06/23/2010 3 3 RMATION COORDINATOR Reason for Visit * Reason Comments Cholesterol Problem Hypothyroid Encounter Details Date Type Department Care Team (Late st Contact Info) Description 06/23/2009 1:45 PM INFORMATION COORDINATOR Office Visit [facility] Internal Medicine [facility] [address] [place] [address] Eldon Koehler MD [address] [address] Unspecified Asthma; Unspecified Hypothyroidism; Osteoarth NOS-Unspec; Depressive Disorder, not Elsewhere Classified; Other and Unspecified Hyperlipidemia; Family Hx of Colon Cancer; Screening Mammogram Social History Tobacco Use Types [...] Reading Time Taken Comments Blood Pressure 120/70 06/23/2009 2:22 PM INFORMATION COORDINATOR Pulse - - Temperature - - Respiratory Rate - - Oxygen Saturation - - Inhaled Oxygen Concentration - - Weight 122.5 kg (270 lb) 06/23/2009 2:22 PM INFORMATION COORDINATOR Height - - Body Mass Index 42.29 10/06/2007 12:13 PM CDT documented in this encounter Progress Notes * Eldon Koehler MD - 06/23/2009 3:45 PM CST Subjective: WINIFRED PIPER is a 58 y.o. female. Fatigue better Lab r-pt noncmpliant t with intermittent diffuse arthtitis all jts, better with celebrex comes and goes No m ache now On chol med Inc stress with recent deaths infamily daughter suicidal Patient Active Problem List Diagnoses Date Noted [...] for Routine Visits: \Blood pressure 120/70, weight 270 lb (122.471 kg). General appearance: healthy appearing, active, alert, [...] generalized lymphadenopathy. mskel--no jt deformith, no m tenderness Assessment and Plan: ASSESSMENT: Encounter Diagnoses Code Name Primary? Qualifier ??? 493.90 Unspecified Asthma ??? 244.9 Unspecified Hypothyroidism Plan: TSH ??? 715.90 Osteoarth NOS-Unspec ??? 311 Depressive Disorder, not Elsewhere Classified ??? 272.4 Other and Unspecified Hyperlipidemia Plan: COMPREHENSIVE METABOLIC PANEL, CK, LIPID PANEL ??? V16.0W Family Hx of Colon Cancer Plan: AMB REFERRAL TO GASTROENTEROLOGY ??? V76.12B Screening Mammogram Plan: MAMMO DIGITAL SCREEN BILAT The nature of cardiac risk has been fully discussed with this patient. I have made her aware of herLDL target goal given her cardiovascular risk analysis. I have discussed the appropriate diet. The need for lifelong compliance in order to reduce risk is stressed. A regular exercise program is recommended to help achieve and maintain normal body weight, fitness and improve lipid balance. Risk of celebrex reviewed, pt feels she needs to have it prn After discussion of the treatment of hyperlipidemia, a statin-drug is chosen; prescription for Lipitor (atorvastatin) once daily is written. The patient is informed that this type of drug is usually highly effective to lower LDL cholesterol and is usually very well tolerated. However, statin-type drugs can potentially injure the liver. Blood tests will be required at regular intervals for the duration of therapy. Damage to the liver, if detected early, can be reversed by stopping the drug. Be alert for persistent nausea, abdominal pain, or yellow jaundice, and report such to me directly. Statin drugs may also cause skeletal muscle injury in rare cases. Be alert for pronounced persistent diffuse muscle pain and discontinue the drug immediately should such symptoms develop. I've explained to her that drugs of the SSRI class can have side effects such as weight gain, sexual dysfunction, insomnia, headache, nausea. These medications are generally effective at alleviating symptoms of anxiety and/or depression. Let me know if significant side effects do occur. Inc dose PLAN: Orders Placed This Encounter ??? Mammo digital screen bilat ??? Comprehensive metabolic panel ??? Ck ??? Lipid panel ??? Tsh ??? Amb referral to gastroenterology ??? Citalopram 20 mg tab ??? Atorvastatin 80 mg tab Appropriate medications prescribed (see detailed AVS). Appropriate patient instructions provided (see detailed AVS). Follow-up as I have indicated. Medications and options explained to include common side effects. Understanding of medications, course, diagnosis, and expectations were expressed by patient/guardian. RMATION COORDINATOR documented in this encounter Plan of Treatment Upcoming Encounters Date Type Department Care Team (Late st Contact Info) Description 07/27/2024 9:40 AM CDT Office Visit [facility] Primary Care [address] [address] [place] [address] Eldon Koehler MD [address] [place] [address] [place] [address] [place] [address] Scheduled Referrals Name Type Priority Associated Diagnoses Order Schedule AMB REFERRAL TO GASTROENTEROLOGY Outpatient Referral Routine Family Hx of Colon Cancer Ordered: 06/23/2009 documented as of this encounter Procedures Procedure Name Priority Date/Time Associated Diagnosis Comments CK Routine 10/01/2009 10:00 PM CDT LIPID PANEL Routine 10/01/2009 10:00 PM CDT COMPREHENSIVE METABOLIC PANEL Routine 10/01/2009 10:00 PM CDT TSH Routine 10/01/2009 7:00 AM CDT documented in this encounter Results * MAMMO DIGITAL SCREEN BILAT (10/30/2009) Anatomical Region Laterality Modality Breast Bilateral Other Eldon Koehler MD MAMMO ORDERABLES * CK (10/01/2009 10:00 PM CDT) CK 55 29 - 143 U/L [facility] NANCY Comment: Test Performed at: [facility] [place] [id number] [place], [place] [address], [place] ??[address] MARY ANN JACOBO DO,MPH Eldon Koehler MD CHEMISTRY ORDERABLES INTERFACE SYSTEM Refer to clinic/hospital department [facility] [employer] [facility] [address] [place] [address] * (ABNORMAL) COMPREHENSIVE METABOLIC PANEL (10/01/2009 10:00 PM CDT) GLUCOSE 97 65 - 99 mg/dL [facility] [employer] [facility] Comment:Fasting reference in terval BUN 16 7 - 25 mg/dL [facility] CREATININE 0.80 0.60 - 1.10 mg/dL [facility] [employer] . [facility] GFR >60 > OR = 60 mL/min/1 .73m2 [facility] GFR, >60 > OR = 60 mL/min/1 .73m2 [facility] BUN/CREAT RATIO NOT APPLICABLE 6 - 22 (calc) [facility] [employer] [facility] Comment: Bun/Creatinine ratio is not reported when the BUN and creatinine values are within normal limits. SODIUM 142 135 - 146 mmol/L [facility]. [facility] POTASSIUM 4.9 3.5 - 5.3 mmol/L [facility] . [facility] CHLORIDE 107 98 - 110 mmol/L [facility] . NANCY CO2 23 21 - 33 mmol/L [facility] . [facility] CALCIUM 9.0 8.6 - 10.2 mg/dL [facility] . [facility] TOTAL PROTEIN 6.8 6.2 - 8.3 g/dL [facility] . [facility] ALBUMIN 4.0 3.6 - 5.1 g/dL [facility] [employer] . NANCY GLOBULIN 2.8 2.2 - 3.9 g/dL (calc) [facility] . [facility] ALBUMIN/GLOBULI N RATIO 1.4 1.0 - 2.1 (calc) [facility] [employer] . [facility] BILIRUBIN TOTAL 0.5 0.2 - 1.2 mg/dL [facility] . [facility] ALKALINE PHOSPHATASE 151(H) 33 - 130 U/L [facility] . [facility] AST 17 10 - 35 U/L [facility] . [facility] ALT 22 6 - 40 U/L [facility] . NANCY Comment: Test Performed at: [facility] [place] [address] [place], [place] ??[address] MARY ANN JACOBO DO,MPH Eldon Koehler MD CHEMISTRY ORDERABLES Performing Organization Address [facility] [place] Phone Number INTERFACE SYSTEM Refer to clinic/hospital department [facility] [address] [place] [address] * (ABNORMAL) LIPID PANEL (10/01/2009 10:00 PM CDT) CHOLESTEROL 203(H) 125 - 200 mg/dL [facility] [employer] [facility] Comment: Test Performed at: [facility] [place] [address] [place], [place] ??[address] MARY ANN JACOBO DO,MPH HDL 53 > OR = 46 mg/dL [facility] [employer] [facility] TRIGLYCERIDE 117 <150 mg/dL [facility] [employer] [facility] LDL CALCULATED 127 <130 mg/dL (calc) [facility] Comment: Desirable range <100 mg/dL for patients with CHD or diabetes and <70 mg/dL for diabetic patients with known heart disease. CHOL/HDL RATIO 3.8 < OR = 5.0 (calc) [facility] Eldon Koehler MD CHEMISTRY ORDERABLES Performing Organization Address [facility] Phone Number INTERFACE SYSTEM Refer to clinic/hospital department [facility] [address] [place] [address] * TSH (10/01/2009 7:00 AM CDT) TSH 2.61 0.40 - 4.50 mIU/L [facility] [employer] [facility] Comment: Test Performed at: [facility] [place] [address] [place], [place] ??[address] MARY ANN JACOBO DO,MPH Eldon Koehler MD CHEMISTRY ORDERABLES Performing Organization Address [facility] Phone Number INTERFACE SYSTEM Refer to clinic/hospital department [facility] [address] [place] [address] documented in this encounter Visit Diagnoses Diagnosis Unspecified asthma(493.90) Unspecified asthma Unspecified hypothyroidism Osteoarthrosis, unspecified whether generalized or localized, unspecified site Depressive disorder, not elsewhere classified Other and unspecified hyperlipidemia Family hx of colon cancer Family history of malignant neoplasm of gastrointestinal tract Screening mammogram Other screening mammogram documented in this encounter Care Teams Clinical Advisor Relationship Specialty Start Date End Date Eldon Koehler MD PCP - General 10/06/07 documented as of this encounter
--- OUTSIDE RECORDS SUMMARY | 2024-05-22 17:05 | XMS_ITS | Encounter Summary ---
Author Organization [facility] Address [address] [place] [address] Care Team Providers Care Front Man Name Role Phone Eldon Koehler MD Primary Care Provider Reason for Referral * Consult, Test & Treat (Routine) - Closed Specialty Diagnoses / Procedures Referred By Carmen villalobos Referred To Contact Gastroenterology Diagnoses Family history of colon cancer Eldon Koehler MD [address] [place] [address] Wilfrid Khoury DO NO ADDRESS ON FILE Referral ID Status Reason Start Date Expiration Date V isits Requested Visits Authorized [id number] Closed Ordering Dept To Review (STL) 10/26/2008 10/26/2009 3 3 Reason for Visit * Reason Comments Cholesterol Problem Encounter Details Date Type Department Care Team (Latest Contact Info) Description 10/26/2008 10:15 AM CDT Office Visit [facility] Internal Medicine [address] [address] Eldon Koehler MD [address] [place] [address] [address] [place] [address] Family History of Colon Cancer; Screening Mammogram; Unspecified Asthma; Other and Unspecified Hyperlipidemia Social History Tobacco [...] Reading Time Taken Comments Blood Pressure 112/70 10/26/2008 10:11 AM CDT Pulse - - Temperature - - Respiratory Rate - - Oxygen Saturation - - Inhaled Oxygen Concentration - - Weight 117 kg (258 lb) 10/26/2008 10:11 AM CDT Height - - Body Mass Index 40.41 10/06/2007 12:13 PM CDT documented in this encounter Progress Notes * Eldon Koehler MD - 10/26/2008 2:11 PM CDT Doing better with [facility] Lab stable Patient denies any exertional chest pain, dyspnea, palpitations, syncope, orthopnea, edema or paroxysmal nocturnal dyspnea. occ weaknessnausea--under a lot of stress with daughter The patient appears alert, well appearing, and in no distress.- ENT exam normal, no neck nodes or sinus tenderness., Chest:clear to auscultation, no wheezes, rales or rhonchi, symmetric air entry. Heart sounds are normal. Abdomen soft, nontender, no masses or organomegaly. ASSESSMENT: Encounter Diagnoses Name Primary? Family History of Colon Cancer ??? Screening Mammogram ??? Unspecified Asthma ??? Other and Unspecified Hyperlipidemia PLAN: Orders Placed This Encounter ??? Mammo digital screen bilat ??? Comprehensive metabolic panel ??? Lipid panel ??? Amb referral to gastroenterology documented in this encounter Plan of Treatment Upcoming Encounters Date Type Department Care Team (Late st Contact Info) Description 07/27/2024 9:40 AM CDT Office Visit [facility] Primary Care [address] [place] [address] Eldon Koehler MD [address] [place] [address] [address] [place] [address] Scheduled Referrals Name Type Priority Associated Diagnoses Order Schedule AMB REFERRAL TO GASTROENTEROLOGY Outpatient Referral Routine Family History of Colon Cancer Ordered: 10/26/2008 documented as of this encounter Procedures Procedure Name Priority Date/Time Associated Diagnosis Comments LIPID PANEL Routine 01/22/2009 2:00 PM CDT COMPREHENSIVE METABOLIC PANEL Routine 01/22/2009 2:00 PM CDT documented in this encounter Results * (ABNORMAL) COMPREHENSIVE METABOLIC PANEL (01/22/2009 2:00 PM CDT) GLUCOSE 96 65 - 99 mg/dL [facility] [employer] [facility] Comment:FASTING REFERENCE IN TERVAL BUN 12 7 - 25 mg/dL [facility] [employer] [facility] CREATININE 0.90 0.60 - 1.10 mg/dL [facility] [employer] [facility] GFR >60 > OR = 60 mL/min/1 .73m2 [facility] [employer] [facility] GFR, >60 > OR = 60 mL/min/1 .73m2 [facility] [employer] [facility] BUN/CREAT RATIO NOT APPLICABLE 6 - 22 (calc) [facility] [employer] [facility] Comment: BUN/CREATININE RATIO IS NOT REPORTED WHEN THE BUN AND CREATININE VALUES ARE WITHIN NORMAL LIMITS. SODIUM 141 135 - 146 mmol/L [facility] [employer] [facility] POTASSIUM 4.5 3.5 - 5.3 mmol/L [facility] [employer] [facility] CHLORIDE 106 98 - 110 mmol/L [facility] [employer] [facility] CO2 26 21 - 33 mmol/L [facility] [employer] [facility] CALCIUM 8.9 8.6 - 10.2 mg/dL [facility] [employer] [facility] TOTAL PROTEIN 6.5 6.2 - 8.3 g/dL [facility] [employer] [facility] ALBUMIN 4.0 3.6 - 5.1 g/dL [facility] [employer] [facility] GLOBULIN 2.5 2.2 - 3.9 g/dL (calc) [facility] [employer] [facility] ALBUMIN/GLOBULI N RATIO 1.6 1.0 - 2.1 (calc) [facility] [employer] [facility] BILIRUBIN TOTAL 0.5 0.2 - 1.2 mg/dL [facility] [employer] [facility] ALKALINE PHOSPHATASE 143(H) 33 - 130 U/L [facility] [employer] [facility] AST 17 10 - 35 U/L [employer] . [facility] ALT 20 6 - 40 U/L [employer] [facility] Comment: Test Performed at: [employer] [facility] [address] [place], [place] ??[address] SYLWIA EUGENE MD Eldon Koehler MD CHEMISTRY ORDERABLES Performing Organization Address [facility] Phone Number INTERFACE SYSTEM Refer to clinic/hospital department [facility] [address] [place] [address] * LIPID PANEL (01/22/2009 2:00 PM CDT) CHOLESTEROL 167 125 - 200 mg/dL [facility] Comment: Test Performed at: [employer] [facility] [address] [place], [place] ??[address] SYLWIA EUGENE MD HDL 47 > OR = 46 mg/dL [facility] TRIGLYCERIDE 121 <150 mg/dL [facility] LDL CALCULATED 96 <130 mg/dL (calc) [facility] Comment: DESIRABLE RANGE <100 MG/DL FOR PATIENTS WITH CHD OR DIABETES AND <70 MG/DL FOR DIABETIC PATIENTS WITH KNOWN HEART DISEASE. CHOL/HDL RATIO 3.6 < OR = 5.0 (calc) [facility] Eldon Koehler MD CHEMISTRY ORDERABLES Performing Organization Address [facility] Phone Number INTERFACE SYSTEM Refer to clinic/hospital department [facility] [address] [place] [address] documented in this encounter Visit Diagnoses Diagnosis Family history of colon cancer Family history of malignant neoplasm of gastrointestinal tract Screening mammogram Other screening mammogram Unspecified asthma(493.90) Unspecified asthma Other and unspecified hyperlipidemia documented in this encounter Care Teams Front Man Relationship Specialty Start Date End Date Eldon Koehler MD PCP - General 10/06/07 documented as of this encounter
--- OUTSIDE RECORDS SUMMARY | 2024-05-22 17:05 | XMS_ITS | Encounter Summary ---
Author Organization [facility] Address [address] [place] [address] Care Team Providers Care Pillar Man Name Role Phone Eldon Koehler MD Primary Care Provider [phone] Reason for Visit * Reason Onset Date Comments Results 02/22/2009 Encounter Details Date Type Department Care Team (Late st Contact Info) Description 02/22/2009 Telephone [facility] Internal Medicine [address] [address] Eldon Koehler MD [address] [place] [address] Results Social History Tobacco Use Types [...] Telephone Encounter - Eldon Koehler MD - 02/22/2009 12:[address] with pt, she is to see Dr Koenig next week documented in this encounter Plan of Treatment Upcoming Encounters Date Type Department Care Team (Late st Contact Info) Description 07/27/2024 9:40 AM CDT Office Visit [facility] Primary Care [facility] [address] [place] [address] [address] [place] [address] Eldon Koehler MD [address] [place] [address] [address] [place] [address] documented as of this encounter Visit Diagnoses Not on filedocumented in this encounter Care Teams Pillar Man Relationship Specialty Start Date End Date Eldon Koehler MD PCP - General 10/06/07 documented as of this encounter
--- OUTSIDE RECORDS SUMMARY | 2024-05-22 17:05 | XMS_ITS | Encounter Summary ---
Author Organization [facility] Address [address] [place] [address] Care Team Providers Care Cardiographer Name Role Phone Eldon Koehler MD Primary Care Provider [phone] Encounter Details Date Type Department Care Team (Late st Contact Info) Description 10/04/2009 Abstract [facility] Internal Medicine [address] [facility] [address] [place] [phone] Eldon Koehler MD [address] [place] [address] [address] [place] [address] Social History Tobacco Use Types [...] Office Visit [facility] Primary Care [facility] [address] [facility] [place] [place] [address] Eldon Koehler MD [address] [place] [address] [address] [place] [address] documented as of this encounter Visit Diagnoses Not on filedocumented in this encounter Care Teams Cardiographer Relationship Specialty Start Date End Date Eldon Koehler MD PCP - General 10/06/07 documented as of this encounter
--- OUTSIDE RECORDS SUMMARY | 2024-05-22 17:05 | XMS_ITS | Encounter Summary ---
Author Organization [facility] Address [address] [place] [address] Care Team Providers Care Cow Trimmer Name Role Phone Eldon Koehler MD Primary Care Provider [phone] Reason for Visit * Reason Onset Date Comments Medication Problem 07/26/2009 Encounter Details Date Type Department Care Team (Late Contact Info) Description 07/26/2009 Telephone [facility] Internal Medicine [address] [address] Eldon Koehler MD [address] [place] [address] Medication Problem Social History Tobacco Use Types Packs/Day Years [...] * Telephone Encounter - Mitra Ward - 07/26/2009 11:16 AM CDT Pharm req new directions & quantity for the Citalopram 20 mg. Pt says she's now taking 1 a day. documented in this encounter Plan of Treatment Upcoming Encounters Date Type Department Care Team (Late st Contact Info) Description 07/27/2024 9:40 AM CDT Office Visit [facility] Primary Care [address] [place] [address] Eldon Koehler MD [address] [place] [address] [address] [place] [address] documented as of this encounter Visit Diagnoses Not on filedocumented in this encounter Care Teams Cow Trimmer Relationship Specialty Start Date End Date Eldon Koehler MD PCP - General 10/06/07 documented as of this encounter
--- OUTSIDE RECORDS SUMMARY | 2024-05-22 17:06 | XMS_ITS | Encounter Summary ---
Author Organization [facility] Address [address] [place]: [place] [address] Care Team Providers Care Radio Station Operator Name Role Phone Eldon Koehler MD Primary Care Provider [phone] Encounter Details Date Type Department Care Team (Latest Contact Info) Description 09/09/2006 Orders Only Conversion, History Social History Tobacco Use Types Packs/Day Years Used Date Smoking Tobacco: Never Assessed Sex and Gender Information Value Date Recorded Sex Assigned at Not on file Gender Identity Not on file Sexual Orientation Not on file documented as of this encounter Progress Notes * Conversion, History - 10/17/2007 7:01 PM CDT documented in this encounter Plan of Treatment Upcoming Encounters Date Type Department Care Team (Late st Contact Info) Description 07/27/2024 9:40 AM CDT Office Visit [facility] Primary Care [address] [place] [address] Eldon Koehler MD [address] [place] [address] [address] [place] [address] documented as of this encounter Visit Diagnoses Not on filedocumented in this encounter Care Teams Radio Station Operator Relationship Specialty Start Date End Date Eldon Koehler MD PCP - General 10/06/07 documented as of this encounter
--- OUTSIDE RECORDS SUMMARY | 2024-05-22 17:06 | XMS_ITS | Encounter Summary ---
Author Organization [facility] Address [address] [place] [address] Care Team Providers Care Business Solutions Analyst Name Role Phone Unavailable Primary Care Provider Unavailabl e Encounter Details Date Type Department Care Team (Late st Contact Info) Description 12/31/2006 Orders Only [facility] Internal Medicine [address] [address] Eldon Koehler MD [address] [place] [address] [address] [place] [address] Social History Tobacco Use Types Packs/Day Years Used Date Smoking Tobacco: Never Assessed Sex and Gender Information Value Date Recorded Sex Assigned at Not on file Gender Identity Not on file Sexual Orientation Not on file documented as of this encounter Progress Notes * Eldon Koehler MD - 09/29/2007 2:18 PM CDT WHO TOOK THE CALL: Eldon Koehler M TIME:03:44 pm documented in this encounter Plan of Treatment Upcoming Encounters Date Type Department Care Team (Late st Contact Info) Description 07/27/2024 9:40 AM CDT Office Visit [facility] Primary Care [address] [place] [address] Eldon Koehler MD [address] [place] [address] [address] [place] [address] documented as of this encounter Visit Diagnoses Not on filedocumented in this encounter
--- OUTSIDE RECORDS SUMMARY | 2024-05-22 17:06 | XMS_ITS | Encounter Summary ---
Author Organization [facility] Address [address] [place] [address] Care Team Providers Care Paralegal Secretary Name Role Phone Giselle Kelley MD Primary Care Provider [phone] Encounter Details Date Type Department Care Team (Late st Contact Info) Description 12/17/2006 Orders Only [facility] Internal Medicine [address] [address] Giselle Kelley MD [address] [place] [address] Social History Tobacco Use Types Packs/Day Years Used Date Smoking Tobacco: Never Assessed Sex and Gender Information Value Date Recorded Sex Assigned at Not on file Gender Identity Not on file Sexual Orientation Not on file documented as of this encounter Progress Notes * Giselle Kelley MD - 09/29/2007 11:57 AM CDT CENTRAL TEST SCHEDULING DATE: DEC 17, 2006 Note created by: Patty Espinoza E 03:45 p Patient Name : WINIFRED PIPER Address: [address] [place] [address]. [address] D.O.B: 1950 SSN: [id number] Parent/Guardian if applicable: Work Phone: Patient Insurance: ID#: Group#: ORDER(S) #: [id number] mammo PLEASE SCHEDULE THE APPOINTMENT AT THE FOLLOWING LOCATION: [facility] [phone]. SPECIAL SCHEDULING INSTRUCTIONS: pt to schedule ORDERING PHYSICIAN: GISELLE KELLEY MD OFFICE ICT HELP DESK OFFICER & PHONE: Patty Espinoza E * Giselle Kelley MD - 09/29/2007 11:56 AM CDT WEIGHT: 253lbs BLOOD PRESSURE: 120/70 Right Arm Sitting NURSE NAME: Renee LowRoberto TOBACCO USE Patient does not currently use tobacco. CHIEF COMPLAINT legs jerk in her sleep. HISTORY: HISTORY: 244.9-HYPOTHYROIDISM The hypothyroidism is stable. 272.4-HYPERLIPIDEMIA The patient is tolerating the medications. The patient has gained weight. 311-DEPRESSION The depression remains stable. 333.99-RESTLESS LEG SYNDROME past few weeks, jerking, does snore, some fatigue 784.0-HEADACHE frontal, occ moderate, worse recently , worse with dec caffeine PAST MEDICAL HISTORY: chol, depn FAMILY HISTORY: mother colon cancer SOCIAL HISTORY: TOBACCO USE: Has no significant smoking history. ALCOHOL: Does not give any significant history of alcohol usage. PHYSICAL EXAMINATION: CONSTITUTIONAL: GENERAL APPEARANCE: Healthy appearing patient in no distress. EARS, NOSE, MOUTH AND THROAT: ORAL: Inspection of gums, lips, palate, and teeth normal. No scars, lesions, or masses. Oral mucosaunremarkable with non-inflamed posterior pharynx. NECK/THYROID: Trachea midline. No thyroid enlargement, tenderness, or mass. No supraclavicular or cervical adenopathy. RESPIRATORY: Clear to auscultation and percussion. Normal respiratory effort. CARDIOVASCULAR: CARDIAC: Regular rhythm. No murmurs, rubs, or gallops. ARTERIAL: No aortic bruits. EDEMA/VARICOSITIES OF EXTREMITIES: No edema or varicosities. GASTROINTESTINAL: ABDOMEN: Soft, non-tender, without masses. Bowel sounds active. LIVER/SPLEEN/KIDNEY: No hepatosplenomegaly, tenderness or nodularity. Kidneys not palpable. MUSCULOSKELETAL EXAM: EXTREMITIES: BILATERAL LOWER EXTREMITIES: No misalignment or tenderness. Full range of motion. Normal stability,strength and tone. ASSESSMENT/PLAN: 244.9-HYPOTHYROIDISM cont med, recheck lab LAB ORDERS: 2 mo Order number: [id number] Test Ordered: COMPREHENSIVE METABOLIC PANEL & GFR 1112 Order number: [id number] Test Ordered: LIPID PANEL 1078 Order number: [id number] Test Ordered: TSH 1720 Order number: [id number] Test Ordered: FERRITIN 1715 Order number: [id number] Test Ordered: CBC W/ DIFFERENTIAL 3150 Order number: [id number] Test Ordered: MAMMOGRAM BI-LATERAL (2 VIEWS) 272.4-HYPERLIPIDEMIA cont med, enc diet and exercise 784.0-HEADACHE try med MEDICATIONS: TOPAMAX ORAL TABLET 25 MG, 1 Two Times A Day, 60 Dispensed, status: NEW PRESCRIPTION, 12/17/2006. glaucoma risk explained 333.99-RESTLESS LEG SYNDROME discussed clemente epstein sleep study, pt wants to try above med first PREVENTIVE COUNSELING The patient was counseled regarding diet, regular sustained exercise for at least 30 minutes 3-4 times per week. Patient Education: Risks, benefits, and possible side effects of medication(s) were reviewed with the patient. RETURN VISIT : Patient instructed to return in 2 months. Electronically Signed by: Giselle Kelley MD on Sunday, December 17, 2006 * Giselle Kelley MD - 09/29/2007 11:56 AM CDT NURSE NAME: Renee Low R documented in this encounter Plan of Treatment Upcoming Encounters Date Type Department Care Team (Late st Contact Info) Description 07/27/2024 9:40 AM CDT Office Visit [facility] [address] [place] [address] Giselle Kelley MD [address] [place] [address] [address] [place] [phone] documented as of this encounter Visit Diagnoses Not on filedocumented in this encounter Additional Health Concerns Infection Onset Date Last Indicated Resolved Time R/O COVID-19 04/24/2020 04/25/2020 04/27/2020 7:01 AM CLEANER INDUSTRIAL R/O COVID-19 04/27/2021 05/02/2021 05/04/2021 1:16 AM CLEANER INDUSTRIAL documented as of this encounter Care Teams Paralegal Secretary Relationship Specialty Start Date End Date Giselle Kelley MD PCP - General 10/06/07 documented as of this encounter
--- OUTSIDE RECORDS SUMMARY | 2024-05-22 17:06 | XMS_ITS | Encounter Summary ---
Author Organization [facility] Address [address] [place] [address] Care Team Providers Care Gymnastics Instructor Name Role Phone Eldon Koehler MD Primary Care Provider [phone] Encounter Details Date Type Department Care Team (Late st Contact Info) Description 01/15/[address] [facility] Internal Medicine [address] [phone] Eldon Koehler MD [address] [place] [address] [address] [place] [address] Social History Tobacco Use Types Packs/Day Years Used Date Smoking Tobacco: Never Assessed Sex and Gender Information Value Date Recorded Sex Assigned at Not on file Gender Identity Not on file Sexual Orientation Not on file documented as of this encounter Last Filed Vital Signs Vital Sign Reading Time Taken Comments Blood Pressure 134/76 01/15/2006 10:00 AM CDT Pulse - - Temperature - - Respiratory Rate - - Oxygen Saturation - - Inhaled Oxygen Concentration - - Weight 114.3 kg (252 lb) 01/15/2006 10:00 AM CDT Height - - Body Mass Index 39.47 06/08/2003 3:30 PM INDUSTRIAL GAS SERVICER SUPERVISOR documented in this encounter Plan of Treatment Upcoming Encounters Date Type Department Care Team (Late st Contact Info) Description 07/27/2024 9:40 AM CDT Office Visit [facility] Primary Care [address] [place] [address] Eldon Koehler MD [address] [place] [address] documented as of this encounter Visit Diagnoses Not on filedocumented in this encounter Additional Health Concerns Infection Onset Date Last Indicated Resolved Time R/O COVID-19 04/24/2020 04/25/2020 04/27/2020 7:01 AM INDUSTRIAL GAS SERVICER SUPERVISOR R/O COVID-19 04/27/2021 05/02/2021 05/04/2021 1:16 AM INDUSTRIAL GAS SERVICER SUPERVISOR documented as of this encounter Care Teams Gymnastics Instructor Relationship Specialty Start Date End Date Eldon Koehler MD PCP - General 10/06/07 documented as of this encounter
--- OUTSIDE RECORDS SUMMARY | 2024-05-22 17:06 | XMS_ITS | Encounter Summary ---
Author Organization [facility] Address [address] [place]: [place] [address] Care Team Providers Care Food Concession Manager Name Role Phone Eldon Koehler MD Primary Care Provider [phone] Encounter Details Date Type Department Care Team (Latest Contact Info) Description 12/17/2006 Orders Only Conversion, History Social History Tobacco Use Types Packs/Day Years Used Date Smoking Tobacco: Never Assessed Sex and Gender Information Value Date Recorded Sex Assigned at Not on file Gender Identity Not on file Sexual Orientation Not on file documented as of this encounter Progress Notes * Conversion, History - 10/16/2007 4:30 AM CDT documented in this encounter Plan of Treatment Upcoming Encounters Date Type Department Care Team (Late st Contact Info) Description 07/27/2024 9:40 AM CDT Office Visit [facility] Primary Care [address] [place] [address] Eldon Koehler MD [address] [place] [address] [address] [place] [address] documented as of this encounter Visit Diagnoses Not on filedocumented in this encounter Care Teams Food Concession Manager Relationship Specialty Start Date End Date Eldon Koehler MD PCP - General 10/06/07 documented as of this encounter
--- OUTSIDE RECORDS SUMMARY | 2024-05-22 17:06 | XMS_ITS | Encounter Summary ---
Author Organization [facility] Address [address] [place] [address] Care Team Providers Care Clinical Applications Specialist Name Role Phone Eldon Koehler MD Primary Care Provider [phone] Encounter Details Date Type Department Care Team (Late st Contact Info) Description 03/02/2007 Outpatient Historical [facility] Internal Medicine [address] [phone] Eldon Koehler MD [address] [place] [address] [address] [place] [address] Social History Tobacco Use Types Packs/Day Years Used Date Smoking Tobacco: Never Assessed Sex and Gender Information Value Date Recorded Sex Assigned at Not on file Gender Identity Not on file Sexual Orientation Not on file documented as of this encounter Last Filed Vital Signs Vital Sign Reading Time Taken Comments Blood Pressure 130/74 03/02/2007 10:30 AM CDT Pulse - - Temperature - - Respiratory Rate - - Oxygen Saturation - - Inhaled Oxygen Concentration - - Weight 117.5 kg (259 lb) 03/02/2007 10:30 AM CDT Height - - Body Mass Index 40.57 06/08/2003 3:30 PM PAPER PATTERN INSPECTOR documented in this encounter Plan of Treatment Upcoming Encounters Date Type Department Care Team (Late st Contact Info) Description 07/27/2024 9:40 AM CDT Office Visit [facility] Primary Care [address] [place] [address] Eldon Koehler MD [address] [place] [address] documented as of this encounter Visit Diagnoses Not on filedocumented in this encounter Additional Health Concerns Infection Onset Date Last Indicated Resolved Time R/O COVID-19 04/24/2020 04/25/2020 04/27/2020 7:01 AM PAPER PATTERN INSPECTOR R/O COVID-19 04/27/2021 05/02/2021 05/04/2021 1:1 6 AM PAPER PATTERN INSPECTOR documented as of this encounter Care Teams Clinical Applications Specialist Relationship Specialty Start Date End Date Eldon Koehler MD PCP - General 10/06/07 documented as of this encounter
--- OUTSIDE RECORDS SUMMARY | 2024-05-22 17:06 | XMS_ITS | Encounter Summary ---
Author Organization [facility] Address [address] [place] [address] Care Team Providers Care Media Planner / Buyer Name Role Phone Eldon Koehler MD Primary Care Provider Encounter Details Date Type Department Care Team (Late st Contact Info) Description 10/13/2003 Outpatient Historical [facility] Internal Medicine [address] [phone] Eldon Koehler MD [address] [place] [address] [address] [place] [address] Social History Tobacco Use Types [...] Visit [facility] Primary Care [address] [place] [address] [place] [address] Eldon Koehler MD [address] [place] [address] [address] [place] [phone] documented as of this encounter Visit Diagnoses Not on filedocumented in this encounter Additional Health Concerns Infection Onset Date Last Indicated Resolved Time R/O COVID-19 04/24/202004/25/2020 04/27/2020 7:01 AM ENGROSSER R/O COVID-19 04/27/2021 05/02/2021 05/04/2021 1:16 AM ENGROSSER documented as of this encounter Care Teams Media Planner / Buyer Relationship Specialty Start Date End Date Eldon Koehler MD PCP - General 10/06/07 documented as of this encounter
--- OUTSIDE RECORDS SUMMARY | 2024-05-22 17:06 | XMS_ITS | Encounter Summary ---
Author Organization [facility] Address [address] [place] [address] Care Team Providers Care Tectonophysicist Name Role Phone Eldon Koehler MD Primary Care Provider [phone] Encounter Details Date Type Department Care Team (Late st Contact Info) Description 07/10/2005 Outpatient Historical [facility] Internal Medicine [address] [address] Eldon Koehler MD [address] [place] [address] Social History Tobacco Use Types Packs/Day Years Used Date Smoking Tobacco: Never Assessed Sex and Gender Information Value Date Recorded Sex Assigned at Not on file Gender Identity Not on file Sexual Orientation Not on file documented as of this encounter Last Filed Vital Signs Vital Sign Reading Time Taken Comments Blood Pressure 130/80 07/10/2005 1:45 PM MANAGER CCU Pulse - - Temperature 37.4 ??C (99.32 ??F) 07/10/2005 1:[address] Respiratory Rate - - Oxygen Saturation - - Inhaled Oxygen Concentration - - Weight 113.4 kg (250 lb) 07/10/2005 1:45 PM MANAGER CCU Height - - Body Mass Index 39.16 06/08/2003 3:30 PM MANAGER CCU documented in this encounter Plan of Treatment Upcoming Encounters Date Type Department Care Team (Late st Contact Info) Description 07/27/2024 9:40 AM CDT Office Visit [facility] Primary Care [address] [place] [phone] Eldno Koehler MD [address] [place] [address] [address] [place] [phone] documented as of this encounter Visit Diagnoses Not on filedocumented in this encounter Additional Health Concerns Infection Onset Date Last Indicated Resolved Time R/O COVID-19 04/24/2020 04/25/2020 04/27/2020 7:01 AM MANAGER CCU R/O COVID-19 04/27/2021 05/02/2021 05/04/2021 1:16 AM MANAGER CCU documented as of this encounter Care Teams Tectonophysicist Relationship Specialty Start Date End Date Eldon Koehler MD PCP - General 10/06/07 documented as of this encounter
--- OUTSIDE RECORDS SUMMARY | 2024-05-22 17:06 | XMS_ITS | Encounter Summary ---
Author Organization [facility] Address [address] [place] [address] Care Team Providers Care Scouts Name Role Phone Eldon Koehler MD Primary Care Provider [phone] Encounter Details Date Type Department Care Team (Late st Contact Info) Description 05/21/2005 Orders Only [facility] Internal Medicine [address] [phone] Eldon Koehler MD [address] [place] [address] [address] [place] [address] Social History Tobacco Use Types [...] Office Visit [facility] Primary Care [address] [place] [address] [place] [address] Eldon Koehler MD [address] [place] [address] [address] [place] [phone] documented as of this encounter Visit Diagnoses Not on filedocumented in this encounter Additional Health Concerns Infection Onset Date Last Indicated Resolved Time R/O COVID-19 04/24/202004/25/2020 04/27/2020 7:01 AM PURCHASING ASSOCIATE R/O COVID-19 04/27/2021 05/02/2021 05/04/2021 1:16 AM PURCHASING ASSOCIATE documented as of this encounter Care Teams Scouts Relationship Specialty Start Date End Date Eldon Koehler MD PCP - General 10/06/07 documented as of this encounter
--- OUTSIDE RECORDS SUMMARY | 2024-05-22 17:06 | XMS_ITS | Encounter Summary ---
Author Organization [facility] Address [address] [place] [address] Care Team Providers Care Precision Filer Hand Name Role Phone Eldon Koehler MD Primary Care Provider [phone] Encounter Details Date Type Department Care Team (Late st Contact Info) Description 08/03/2007 Orders Only [facility] Internal Medicine [address] [address] Eldon Koehler MD [address] [place] [address] Social History Tobacco Use Types Packs/Day Years Used Date Smoking Tobacco: Never Assessed Sex and Gender Information Value Date Recorded Sex Assigned at Not on file Gender Identity Not on file Sexual Orientation Not on file documented as of this encounter Progress Notes * Eldon Koehler MD - 10/15/2007 7:41 PM CDT WEIGHT: 268lbs BLOOD PRESSURE: 132/72 Right Arm Sitting ( LARGE CUFF) NURSE NAME: Jay Jay Ibarra N TOBACCO USE Patient does not currently use tobacco. CHIEF COMPLAINT Patient here for follow up hyperlipidemia, hypothyroidism. HISTORY: HISTORY: 244.9-HYPOTHYROIDISM No complications noted from the medication presently being used. 272.4-HYPERLIPIDEMIA The patient is tolerating the medications. 311-DEPRESSION off med inc fatigue--restarted doing better, mood improved 333.99-RESTLESS LEG SYNDROME stable with med 493.90-ASTHMA UNSPECIFIED recent inc cough kendrick wheeze worse at night 780.57-SLEEP APNEA snoring fatigue inc recently with wt gain pt did not fu with sleep study 790.21-ABNORMAL FASTING BLOOD GLUCOSE wt gain poor diet and ex lab reviewed ROS: ENDOCRINE: No heat or cold intolerance, no excessive thirst. CARDIAC: No chest pain. RESPIRATORY: HAS A COUGH. GI: No abdominal pain, nausea, vomiting, diarrhea, constipation, melena, or hematochezia. PAST MEDICAL HISTORY: chol, depn FAMILY HISTORY: mother colon cancer SOCIAL HISTORY: TOBACCO USE: Has no significant smoking history. ALCOHOL: Does not give any significant history of alcohol usage. PHYSICAL EXAMINATION: CONSTITUTIONAL: GENERAL APPEARANCE: Healthy appearing patient in no distress. EARS, NOSE, MOUTH AND THROAT: EARS: Tympanic membranes shiny without retraction. Canals unremarkable. ORAL: Inspection of gums, lips, palate, and teeth normal. No scars, lesions, or masses. Oral mucosaunremarkable with non-inflamed posterior pharynx. NECK/THYROID: Trachea midline. No thyroid enlargement, tenderness, or mass. No supraclavicular or cervical adenopathy. RESPIRATORY: Clear to auscultation and percussion. Normal respiratory effort. CARDIOVASCULAR: CARDIAC: Regular rhythm. No murmurs, rubs, or gallops. ARTERIAL: No aortic bruits. EDEMA/VARICOSITIES OF EXTREMITIES: No edema or varicosities. LYMPHATICS: No lymphadenopathy in the neck, axillae, or groin. GASTROINTESTINAL: ABDOMEN: Soft, non-tender, without masses. Bowel sounds active. LIVER/SPLEEN/KIDNEY: No hepatosplenomegaly, tenderness or nodularity. Kidneys not palpable. MUSCULOSKELETAL EXAM: EXTREMITIES: BILATERAL LOWER EXTREMITIES: No misalignment or tenderness. Full range of motion. Normal stability,strength and tone. PSYCHIATRIC: Judgment appropriate. Oriented. Normal memory. Mood and affect appropriate. ASSESSMENT/PLAN: 244.9-HYPOTHYROIDISM cont med 272.4-HYPERLIPIDEMIA restart med, pt went off--lab terrible 311-DEPRESSION cont med, discussed MEDICATIONS: FLUOXETINE HCL ORAL CAPSULE CONVENTIONAL 20 MG, 1 Every Day, 90 Dispensed, 4 Fills, status: NEW PRESCRIPTION, 08/03/2007. 333.99-RESTLESS LEG SYNDROME cont med, discussed 780.57-SLEEP APNEA pt wants to wait on testing, wtloss enc 790.21-ABNORMAL FASTING BLOOD GLUCOSE diet/ex discussed, recheck lab LAB ORDERS: 3 mo Order number: [id number] Test Ordered: COMPREHENSIVE METABOLIC PANEL & GFR 1112 Order number: [id number] Test Ordered: LIPID PANEL 1078 Order number: [id number] Test Ordered: HEMOGLOBIN A1C 1814 Order number: [id number] Test Ordered: TSH 1720 PREVENTIVE COUNSELING The patient was counseled regarding diet, regular sustained exercise for at least 30 minutes 3-4 times per week. Patient Education: The patient was allowed to ask questions to stated satisfaction. The importance of compliance was stressed. The patient was told that there needs to be a commitment to following our agreed upon course of action. It was noted that failing to be compliant can lead to untoward health outcomes. An ADA diet was given to the patient, Weight Watchers diet encouraged. The importance ofweight loss was emphasized. The benefits of exercise were reviewed at length with the patient. Risks, benefits, and possible side effects of medication(s) were reviewed with the patient. RETURN VISIT : Patient instructed to return in 3 months. Electronically Signed by: Eldon Koehler MD on Friday, August 03, 2007 documented in this encounter Plan of Treatment Upcoming Encounters Date Type Department Care Team (Late st Contact Info) Description 07/27/2024 9:40 AM CDT Office Visit [facility] Primary Care [address] Eldon Koehler MD [address] [place] [phone] documented as of this encounter Visit Diagnoses Not on filedocumented in this encounter Additional Health Concerns Infection Onset Date Last Indicated Resolved Time R/O COVID-19 04/24/2020 04/25/2020 04/27/2020 7:01 AM HEALTH AND WELLNESS COACH R/O COVID-19 04/27/2021 05/02/2021 05/04/2021 1:16 AM HEALTH AND WELLNESS COACH documented as of this encounter Care Teams Precision Filer Hand Relationship Specialty Start Date End Date Eldon Koehler MD PCP - General 10/06/07 documented as of this encounter
--- OUTSIDE RECORDS SUMMARY | 2024-05-22 17:06 | XMS_ITS | Encounter Summary ---
Author Organization [facility] Address [address] [place]: [place] [address] Care Team Providers Care Counseling Aide Name Role Phone Eldon Koehler MD Primary Care Provider [phone] Encounter Details Date Type Department Care Team (Latest Contact Info) Description 10/17/2005 Orders Only Conversion, History Social History Tobacco Use Types Packs/Day Years Used Date Smoking Tobacco: Never Assessed Sex and Gender Information Value Date Recorded Sex Assigned at Not on file Gender Identity Not on file Sexual Orientation Not on file documented as of this encounter Progress Notes * Conversion, History - 10/09/2007 3:19 AM CDT documented in this encounter Plan of Treatment Upcoming Encounters Date Type Department Care Team (Late st Contact Info) Description 07/27/2024 9:40 AM CDT Office Visit [facility] Primary Care [address] [place] [address] Eldon Koehler MD [address] [place] [address] [address] [place] [phone] documented as of this encounter Visit Diagnoses Not on filedocumented in this encounter Care Teams Counseling Aide Relationship Specialty Start Date End Date Eldon Koehler MD PCP - General 10/06/07 documented as of this encounter
--- OUTSIDE RECORDS SUMMARY | 2024-05-22 17:06 | XMS_ITS | Encounter Summary ---
Author Organization [facility] Address [address] [place] [address] Care Team Providers Care Dough Scaler And Mixer Name Role Phone Eldon Koehler MD Primary Care Provider [phone] Encounter Details Date Type Department Care Team (Late st Contact Info) Description 08/03/2007 Outpatient Historical [facility] Internal Medicine [address] [phone] Eldon Koehler MD [address] [place] [address] [address] [place] [address] Social History Tobacco Use Types Packs/Day Years Used Date Smoking Tobacco: Never Assessed Sex and Gender Information Value Date Recorded Sex Assigned at Not on file Gender Identity Not on file Sexual Orientation Not on file documented as of this encounter Last Filed Vital Signs Vital Sign Reading Time Taken Comments Blood Pressure 132/72 08/03/2007 9:15 AM CDT Pulse - - Temperature - - Respiratory Rate - - Oxygen Saturation - - Inhaled Oxygen Concentration - - Weight 121.6 kg (268 lb) 08/03/2007 9:15 AM CDT Height - - Body Mass Index 41.97 06/08/2003 3:30 PM IMPORT EXPORT CLERK documented in this encounter Plan of Treatment Upcoming Encounters Date Type Department Care Team (Late st Contact Info) Description 07/27/2024 9:40 AM CDT Office Visit [facility] Primary Care [address] [place] [address] Eldon Koehler MD [address] [place] [address] documented as of this encounter Visit Diagnoses Not on filedocumented in this encounter Additional Health Concerns Infection Onset Date Last Indicated Resolved Time R/O COVID-19 04/24/2020 04/25/2020 04/27/2020 7:01 AM IMPORT EXPORT CLERK R/O COVID-19 04/27/2021 05/02/2021 05/04/2021 1:1 6 AM IMPORT EXPORT CLERK documented as of this encounter Care Teams Dough Scaler And Mixer Relationship Specialty Start Date End Date Eldon Koehler MD PCP - General 10/06/07 documented as of this encounter
--- OUTSIDE RECORDS SUMMARY | 2024-05-22 17:06 | XMS_ITS | Encounter Summary ---
Author Organization [facility] Address [address] [place] [address] Care Team Providers Care Coat Maker Name Role Phone Eldon Koehler MD Primary Care Provider [phone] Encounter Details Date Type Department Care Team (Latest Contact Info) Description 03/24/2007 Orders Only HIS CONVERSION Conversion, History Social History Tobacco Use Types Packs/Day Years Used Date Smoking Tobacco: Never Assessed Sex and Gender Information Value Date Recorded Sex Assigned at Not on file Gender Identity Not on file Sexual Orientation Not on file documented as of this encounter Progress Notes * Conversion, History - 05/02/2008 1:04 PM IMPREGNATOR EGNATOR documented in this encounter Plan of Treatment Upcoming Encounters Date Type Department Care Team (Late st Contact Info) Description 07/27/2024 9:40 AM CDT Office Visit [facility] Primary Care [address] [place] [phone] Eldon Koehler MD [address] [facility] [place] [address] [place] [phone] documented as of this encounter Visit Diagnoses Not on filedocumented in this encounter Care Teams Coat Maker Relationship Specialty Start Date End Date Eldon Koehler MD PCP - General 10/06/07 documented as of this encounter
--- OUTSIDE RECORDS SUMMARY | 2024-05-22 17:06 | XMS_ITS | Encounter Summary ---
Author Organization [facility] Address [address] [place] [address] Care Team Providers Care Senior Operations Analyst Name Role Phone Eldon Koehler MD Primary Care Provider Encounter Details Date Type Department Care Team (Late st Contact Info) Description 10/16/2005 Orders Only [facility] Internal Medicine [address] [address] Eldon Koehler MD [address] [place] [address] Social History Tobacco Use Types Packs/Day Years Used Date Smoking Tobacco: Never Assessed Sex and Gender Information Value Date Recorded Sex Assigned at Not on file Gender Identity Not on file Sexual Orientation Not on file documented as of this encounter Progress Notes * Eldon Koehler MD - 02/19/2008 6:50 AM CDT WEIGHT: 250lbs BLOOD PRESSURE: 104/70 Right Arm Sitting NURSE NAME: Renee Low R CHIEF COMPLAINT Patient here for follow up hyperlipidemia. neck pain. HISTORY: HISTORY: 244.9-HYPOTHYROIDISM The patient has a loss of energy, has had an increase in weight. Currently thepatient is off all medication. 272.4-HYPERLIPIDEMIA The patient is tolerating the medications. The patient`s most recent labs reviewed. 311-DEPRESSION The depression remains stable. No complications noted from the medication presently being used. The patient denies excessive crying, a persistent feeling of sadness and hopelessness, and fatigue. 715.90-OSTEOARTHROSIS UNSPECIFIED neck pain no radiation, disc djd on x ray ROS: ENDOCRINE: No heat or cold intolerance, no excessive thirst. CARDIAC: No chest pain, palpitations, orthopnea, dyspnea on exertion, or paroxysmal nocturnal dyspnea. RESPIRATORY: No dyspnea, cough, hemoptysis or wheezing. : No frequency, urgency, hematuria or dysuria. GI: No abdominal pain, nausea, vomiting, diarrhea, constipation, melena, or hematochezia. PAST MEDICAL HISTORY: chol, depn FAMILY HISTORY: mother colon cancer SOCIAL HISTORY: TOBACCO USE: Has no significant smoking history. OCCUPATION: . looking for job-- benefits withdrawn ALCOHOL: Does not give any significant history of alcohol usage. PHYSICAL EXAMINATION: CONSTITUTIONAL: GENERAL APPEARANCE: Healthy appearing patient in no distress. NECK/THYROID: Trachea midline. No thyroid enlargement, tenderness, or mass. No supraclavicular or cervical adenopathy. RESPIRATORY: Clear to auscultation and percussion. Normal respiratory effort. CARDIOVASCULAR: CARDIAC: Regular rhythm. No murmurs, rubs, or gallops. ARTERIAL: Aortic pulses of normal amplitude with no bruits. EDEMA/VARICOSITIES OF EXTREMITIES: No edema or varicosities. GASTROINTESTINAL: ABDOMEN: Soft, non-tender, without masses. Bowel sounds active. LIVER/SPLEEN/KIDNEY: No hepatosplenomegaly, tenderness or nodularity. Kidneys not palpable. MUSCULOSKELETAL EXAM: central and parsp m tender neck, driver operator ok OFFICE PROCEDURES: ASSESSMENT/PLAN: 244.9-HYPOTHYROIDISM discussed, start med MEDICATIONS: LEVOTHYROXINE SODIUM ORAL TABLET 50 MCG, 1 Every Day, 30 Dispensed, 3 Fills, status: NEW PRESCRIPTION, 10/16/2005. LAB ORDERS: Order number: [id number] Test Ordered: TSH 899 6 weeks 272.4-HYPERLIPIDEMIA cont med, enc diet and ex 311-DEPRESSION refill med, continue, discussed 723.1-NECK PAIN refer pain mgt, has not been imrpoving SPECIALTY REFERRAL: PAIN MANAGEMENT Sejal--Neck Pain, eval for epidural RETURN VISIT : Patient instructed to return in 3 months. Electronically Signed by: Eldon Koehler MD on Friday, October 16, 2005 documented in this encounter Plan of Treatment Upcoming Encounters Date Type Department Care Team (Late st [facility] Info) Description 07/27/2024 9:40 AM CDT Office Visit [facility] Primary Care [address] [place] [address] Eldon Koehler MD [address] [place] [address] [address] [place] [address] documented as of this encounter Visit Diagnoses Not on filedocumented in this encounter Care Teams Senior Operations Analyst Relationship Specialty Start Date End Date Eldon Koehler MD PCP - General 10/06/07 documented as of this encounter
--- OUTSIDE RECORDS SUMMARY | 2024-05-22 17:06 | XMS_ITS | Encounter Summary ---
Author Organization [facility] Address [address] [place] [address] Care Team Providers Care City Letter Carrier Name Role Phone Eldon Koehler MD Primary Care Provider [phone] Encounter Details Date Type Department Care Team (Late st Contact Info) Description 01/05/2007 Orders Only [facility] Internal Medicine [address] [address] Eldon Koehler MD [address] [place] [address] Social History Tobacco Use Types Packs/Day Years Used Date Smoking Tobacco: Never Assessed Sex and Gender Information Value Date Recorded Sex Assigned at Not on file Gender Identity Not on file Sexual Orientation Not on file documented as of this encounter Progress Notes * Eldon Koehler MD - 09/29/2007 3:23 PM CDT TIME:11:16 am PATIENT`S HOME PHONE: PATIENT`S WORK PHONE: PATIENT`S INSURANCE: [employer] [facility] WHO TOOK THE CALL: Iliana Mike C GENERAL INFORMATION ALTERNATIVE PHONE NUMBER: [phone] WHO CALLED: Patient called. PROBLEMS: Requip is making her very sleepy only when she went on .5 can she cut these in half. Pt did very well on 2.5 SECTION 1: REQUESTED ACTION haylie 01/05/07 at 11:18 am: NEXT STEP: Patient is no better and wants to know the next step. DOCTOR`S RESPONSE: anita 01/05/07 at 11:19 am ok 2.5 MEDICATIONS: Call in to Pharmacy REQUIP ORAL TABLET 0.25 MG, 1 Every Day At Bedtime, 30 Dispensed, 1 Fills, status: NEW PRESCRIPTION, 01/05/2007. FINAL ACTION: rommel 01/05/07 at 05:49 pm Left message on patient`s recorder or with a family member 01/05/2007 at 05:49 pm. documented in this encounter Plan of Treatment Upcoming Encounters Date Type Department Care Team (Late st Contact Info) Description 07/27/2024 9:40 AM CDT Office Visit [facility] [address] Eldon Koehler MD [address] [place], [place] [phone] documented as of this encounter Visit Diagnoses Not on filedocumented in this encounter Additional Health Concerns Infection Onset Date Last Indicated Resolved Time R/O COVID-19 04/24/2020 04/25/2020 04/27/2020 7:01 AM MEDICAL CASE MANAGER R/O COVID-19 04/27/2021 05/02/2021 05/04/2021 1:16 AM MEDICAL CASE MANAGER documented as of this encounter Care Teams City Letter Carrier Relationship Specialty Start Date End Date Eldon Koehler MD PCP - General 10/06/07 documented as of this encounter
--- OUTSIDE RECORDS SUMMARY | 2024-05-22 17:06 | XMS_ITS | Encounter Summary ---
Author Organization [facility] Address [address] [place]: [place] [address] Care Team Providers Care Retail Beauty Specialist Name Role Phone Eldon Koehler MD Primary Care Provider [phone] Encounter Details Date Type Department Care Team (Latest Contact Info) Description 07/08/2005 Orders Only Conversion, History Social History Tobacco Use Types Packs/Day Years Used Date Smoking Tobacco: Never Assessed Sex and Gender Information Value Date Recorded Sex Assigned at Not on file Gender Identity Not on file Sexual Orientation Not on file documented as of this encounter Progress Notes * Conversion, History - 10/17/2007 6:01 AM CDT documented in this encounter Plan of Treatment Upcoming Encounters Date Type Department Care Team (Late st Contact Info) Description 07/27/2024 9:40 AM CDT Office Visit [facility] Primary Care [address] [place] [address] Eldon Koehler MD [address] [place] [address] [address] [place] [phone] documented as of this encounter Visit Diagnoses Not on filedocumented in this encounter Care Teams Retail Beauty Specialist Relationship Specialty Start Date End Date Eldon Koehler MD PCP - General 10/06/07 documented as of this encounter
--- OUTSIDE RECORDS SUMMARY | 2024-05-22 17:06 | XMS_ITS | Encounter Summary ---
Author Organization [facility] Address [address] [place] [address] Care Team Providers Care Customer Service Analyst Name Role Phone Eldon Koehler MD Primary Care Provider [phone] Encounter Details Date Type Department Care Team (Late st Contact Info) Description 04/19/2005 Outpatient Historical [facility] Internal Medicine [address] [address] Eldon Koehler MD [address] [place] [address] [address] [place] [address] Social History Tobacco Use Types Packs/Day Years Used Date Smoking Tobacco: Never Assessed Sex and Gender Information Value Date Recorded Sex Assigned at Not on file Gender Identity Not on file Sexual Orientation Not on file documented as of this encounter Last Filed Vital Signs Vital Sign Reading Time Taken Comments Blood Pressure 130/80 04/19/2005 1:00 PM HEAT AND FROST INSULATOR Pulse - - Temperature - - Respiratory Rate - - Oxygen Saturation - - Inhaled Oxygen Concentration - - Weight 112.5 kg (248 lb) 04/19/2005 1:00 PM HEAT AND FROST INSULATOR Height - - Body Mass Index 38.84 06/08/2003 3:30 PM HEAT AND FROST INSULATOR documented in this encounter Plan of Treatment Upcoming Encounters Date Type Department Care Team (Late st Contact Info) Description 07/27/2024 9:40 AM CDT Office Visit [facility] Primary Care [address] [place] [address] Eldon Koehler MD [address] [place] [address] documented as of this encounter Visit Diagnoses Not on filedocumented in this encounter Additional Health Concerns Infection Onset Date Last Indicated Resolved Time R/O COVID-19 04/24/2020 04/25/2020 04/27/2020 7:01 AM HEAT AND FROST INSULATOR R/O COVID-19 04/27/2021 05/02/2021 05/04/2021 1:16 AM HEAT AND FROST INSULATOR documented as of this encounter Care Teams Customer Service Analyst Relationship Specialty Start Date End Date Eldon Koehler MD PCP - General 10/06/07 documented as of this encounter
--- OUTSIDE RECORDS SUMMARY | 2024-05-22 17:06 | XMS_ITS | Encounter Summary ---
Author Organization [facility] Address [address] [place]: [place] [address] Care Team Providers Care Salon Assistant Name Role Phone Eldon Koehler MD Primary Care Provider [phone] Encounter Details Date Type Department Care Team (Latest Contact Info) Description 01/12/2006 Orders Only Conversion, History Social History Tobacco Use Types Packs/Day Years Used Date Smoking Tobacco: Never Assessed Sex and Gender Information Value Date Recorded Sex Assigned at Not on file Gender Identity Not on file Sexual Orientation Not on file documented as of this encounter Progress Notes * Conversion, History - 10/16/2007 10:34 AM CDT documented in this encounter Plan of Treatment Upcoming Encounters Date Type Department Care Team (Late st Contact Info) Description 07/27/2024 9:40 AM CDT Office Visit [facility] Primary Care [address] [place] [address] Eldon Koehler MD [address] [place] [address] [address] [place] [address] documented as of this encounter Visit Diagnoses Not on filedocumented in this encounter Care Teams Salon Assistant Relationship Specialty Start Date End Date Eldon Koehler MD PCP - General 10/06/07 documented as of this encounter
--- OUTSIDE RECORDS SUMMARY | 2024-05-22 17:06 | XMS_ITS | Encounter Summary ---
Author Organization [facility] Address [address] [place] [address] Care Team Providers Care Roller Inspector Name Role Phone Eldon Koehler MD Primary Care Provider Encounter Details Date Type Department Care Team (Late st Contact Info) Description 06/05/2007 Outpatient Historical [facility] Internal Medicine [address] [phone] Eldon Koehler MD [address] [place] [address] [address] [place] [address] Social History Tobacco Use [...] CDT Office Visit [facility] Primary Care [address] [place] [address] [place] [address] Eldon Koehler MD [address] [place] [address] [address] [place] [address] documented as of this encounter Visit Diagnoses Not on filedocumented in this encounter Additional Health Concerns Infection Onset Date Last Indicated Resolved Time R/O COVID-19 04/24/202004/25/2020 04/27/2020 7:01 AM STUDENT ADVISOR R/O COVID-19 04/27/2021 05/02/2021 05/04/2021 1:16 AM STUDENT ADVISOR documented as of this encounter Care Teams Roller Inspector Relationship Specialty Start Date End Date Eldon Koehler MD PCP - General 10/06/07 documented as of this encounter
--- OUTSIDE RECORDS SUMMARY | 2024-05-22 17:06 | XMS_ITS | Encounter Summary ---
Author Organization [facility] Address [address] [place]: [place] [address] Care Team Providers Care Fireworks Assembly Supervisor Name Role Phone Unavailable Primary Care Provider Unavailabl e Encounter Details Date Type Department Care Team (Latest Contact Info) Description 08/30/2005 Orders Only Conversion, History Social History Tobacco Use Types Packs/Day Years Used Date Smoking Tobacco: Never Assessed Sex and Gender Information Value Date Recorded Sex Assigned at Not on file Gender Identity Not on file Sexual Orientation Not on file documented as of this encounter Progress Notes * Conversion, History - 09/28/2007 11:27 PM CDT documented in this encounter Plan of Treatment Upcoming Encounters Date Type Department Care Team (Late st Contact Info) Description 07/27/2024 9:40 AM CDT Office Visit [facility] Primary Care [address] [place] [address] Eldon Koehler MD [address] [place] [address] [place] [address] [place] [address] documented as of this encounter Visit Diagnoses Not on filedocumented in this encounter
--- OUTSIDE RECORDS SUMMARY | 2024-05-22 17:06 | XMS_ITS | Encounter Summary ---
Author Organization [facility] Address [address] [place] [address] Care Team Providers Care Electrical And Instrument Engineer Name Role Phone Eldon Koehler MD Primary Care Provider [phone] Encounter Details Date Type Department Care Team (Late st Contact Info) Description 01/27/2007 Orders Only [facility] Internal Medicine [address] [phone] Eldon Koehler MD [address] [place] [address] [address] [place] [address] Social History Tobacco Use Types [...] Office Visit [facility] Primary Care [address] [place] [address] [place] [address] Eldon Koehler MD [address] [place] [address] [address] [place] [address] documented as of this encounter Visit Diagnoses Not on filedocumented in this encounter Additional Health Concerns Infection Onset Date Last Indicated Resolved Time R/O COVID-19 04/24/202004/25/2020 04/27/2020 7:01 AM SECTION REPAIRER R/O COVID-19 04/27/2021 05/02/2021 05/04/2021 1:16 AM SECTION REPAIRER documented as of this encounter Care Teams Electrical And Instrument Engineer Relationship Specialty Start Date End Date Eldon Koehler MD PCP - General 10/06/07 documented as of this encounter
--- OUTSIDE RECORDS SUMMARY | 2024-05-22 17:06 | XMS_ITS | Encounter Summary ---
Author Organization [facility] Address [address] [place] [address] Care Team Providers Care Paperboard Boxes Estimator Name Role Phone Eldon Koehler MD Primary Care Provider [phone] Encounter Details Date Type Department Care Team (Late st Contact Info) Description 06/08/2003 Outpatient Historical [facility] Internal Medicine [address] [phone] Meliton Odonnell MD [address] [place] [address] Social History Tobacco Use Types Packs/Day Years Used Date Smoking Tobacco: Never Assessed Sex and Gender Information Value Date Recorded Sex Assigned at Not on file Gender Identity Not on file Sexual Orientation Not on file documented as of this encounter Last Filed Vital Signs Vital Sign Reading Time Taken Comments Blood Pressure 130/70 06/08/2003 3:30 PM TRANS ROUTER Pulse - - Temperature - - Respiratory Rate - - Oxygen Saturation - - Inhaled Oxygen Concentration - - Weight 112 kg (247 lb) 06/08/2003 3:30 PM TRANS ROUTER Height 170.2 cm (5' 7 ) 06/08/2003 3:30 PM TRANS ROUTER Body Mass Index 38.69 06/08/2003 3:30 PM TRANS ROUTER documented in this encounter Plan of Treatment Upcoming Encounters Date Type Department Care Team (Late st Contact Info) Description 07/27/2024 9:40 AM CDT Office Visit [facility] Primary Care [address] [place] [phone] Eldon Koehler MD [address] [place] [address] [place] [phone] documented as of this encounter Visit Diagnoses Not on filedocumented in this encounter Additional Health Concerns Infection Onset Date Last Indicated Resolved Time R/O COVID-19 04/24/2020 04/25/2020 04/27/2020 7:01 AM TRANS ROUTER R/O COVID-19 04/27/2021 05/02/2021 05/04/2021 1:16 AM TRANS ROUTER documented as of this encounter Care Teams Paperboard Boxes Estimator Relationship Specialty Start Date End Date Eldon Koehler MD PCP - General 10/06/07 documented as of this encounter
--- OUTSIDE RECORDS SUMMARY | 2024-05-22 17:06 | XMS_ITS | Encounter Summary ---
Author Organization [facility] Address [address] [place]: [place] [address] Care Team Providers Care Fence Laborer Name Role Phone Eldon Koehler MD Primary Care Provider [phone] Encounter Details Date Type Department Care Team (Latest Contact Info) Description 01/15/2006 Orders Only Conversion, History Social History Tobacco Use Types Packs/Day Years Used Date Smoking Tobacco: Never Assessed Sex and Gender Information Value Date Recorded Sex Assigned at Not on file Gender Identity Not on file Sexual Orientation Not on file documented as of this encounter Progress Notes * Conversion, History - 10/15/2007 3:44 AM CDT documented in this encounter Plan of Treatment Upcoming Encounters Date Type Department Care Team (Late st Contact Info) Description 07/27/2024 9:40 AM CDT Office Visit [facility] Primary Care [address] [place] [address] Eldon Koehler MD [address] [place] [address] [address] [place] [address] documented as of this encounter Visit Diagnoses Not on filedocumented in this encounter Care Teams Fence Laborer Relationship Specialty Start Date End Date Eldon Koehler MD PCP - General 10/06/07 documented as of this encounter
--- OUTSIDE RECORDS SUMMARY | 2024-05-22 17:06 | XMS_ITS | Encounter Summary ---
Author Organization [facility] Address [address] [place]: [place] [address] Care Team Providers Care Hotel Guest Service Agent Name Role Phone Unavailable Primary Care Provider Unavailabl e Encounter Details Date Type Department Care Team (Latest Contact Info) Description 06/29/2007 Orders Only Conversion, History Social History Tobacco Use Types Packs/Day Years Used Date Smoking Tobacco: Never Assessed Sex and Gender Information Value Date Recorded Sex Assigned at Not on file Gender Identity Not on file Sexual Orientation Not on file documented as of this encounter Progress Notes * Conversion, History - 08/05/2007 7:46 PM CDT documented in this encounter Plan of Treatment Upcoming Encounters Date Type Department Care Team (Late st Contact Info) Description 07/27/2024 9:40 AM CDT Office Visit [facility] Primary Care [address] [place] [address] Eldon Koehler MD [address] [place] [address] [place] [address] [place] [address] documented as of this encounter Visit Diagnoses Not on filedocumented in this encounter
--- OUTSIDE RECORDS SUMMARY | 2024-05-22 17:06 | XMS_ITS | Encounter Summary ---
Author Organization [facility] Address [address] [place] [address] Care Team Providers Care Child Care Cook Name Role Phone Eldon Koehler MD Primary Care Provider [phone] Encounter Details Date Type Department Care Team (Latest Contact Info) Description 03/03/2007 Orders Only HIS CONVERSION Conversion, History Social History Tobacco Use Types Packs/Day Years Used Date Smoking Tobacco: Never Assessed Sex and Gender Information Value Date Recorded Sex Assigned at Not on file Gender Identity Not on file Sexual Orientation Not on file documented as of this encounter Progress Notes * Conversion, History - 05/03/2008 7:44 PM INFUSION THERAPY NURSE SION THERAPY NURSE documented in this encounter Plan of Treatment Upcoming Encounters Date Type Department Care Team (Late st Contact Info) Description 07/27/2024 9:40 AM CDT Office Visit [facility] Primary Care [address] [place] [phone] Eldon Koehler MD [address] [facility] [place] [address] [place] [phone] documented as of this encounter Visit Diagnoses Not on filedocumented in this encounter Care Teams Child Care Cook Relationship Specialty Start Date End Date Eldon Koehler MD PCP - General 10/06/07 documented as of this encounter
--- OUTSIDE RECORDS SUMMARY | 2024-05-22 17:06 | XMS_ITS | Encounter Summary ---
Author Organization [facility] Address [address] [place]: [place] [address] Care Team Providers Care Production Roustabout Name Role Phone Eldon Koehler MD Primary Care Provider [phone] Encounter Details Date Type Department Care Team (Latest Contact Info) Description 10/12/2004 Orders Only Conversion, History Social History Tobacco Use Types Packs/Day Years Used Date Smoking Tobacco: Never Assessed Sex and Gender Information Value Date Recorded Sex Assigned at Not on file Gender Identity Not on file Sexual Orientation Not on file documented as of this encounter Progress Notes * Conversion, History - 10/18/2007 12:27 PM CDT documented in this encounter Plan of Treatment Upcoming Encounters Date Type Department Care Team (Late st Contact Info) Description 07/27/2024 9:40 AM CDT Office Visit [facility] Primary Care [address] [place] [address] Eldon Koehler MD [address] [place] [address] [address] [place] [address] documented as of this encounter Visit Diagnoses Not on filedocumented in this encounter Care Teams Production Roustabout Relationship Specialty Start Date End Date Eldon Koehler MD PCP - General 10/06/07 documented as of this encounter
--- OUTSIDE RECORDS SUMMARY | 2024-05-22 17:06 | XMS_ITS | Encounter Summary ---
Author Organization [facility] Address [address] [place]: [place] [address] Care Team Providers Care Orthotist Name Role Phone Eldon Koehler MD Primary Care Provider [phone] Encounter Details Date Type Department Care Team (Latest Contact Info) Description 04/17/2005 Orders Only Conversion, History Social History Tobacco Use Types Packs/Day Years Used Date Smoking Tobacco: Never Assessed Sex and Gender Information Value Date Recorded Sex Assigned at Not on file Gender Identity Not on file Sexual Orientation Not on file documented as of this encounter Progress Notes * Conversion, History - 10/18/2007 9:13 PM CDT documented in this encounter Plan of Treatment Upcoming Encounters Date Type Department Care Team (Late st Contact Info) Description 07/27/2024 9:40 AM CDT Office Visit [facility] Primary Care [address] [place] [address] Eldon Koehler MD [address] [place] [address] [address] [place] [address] documented as of this encounter Visit Diagnoses Not on filedocumented in this encounter Care Teams Orthotist Relationship Specialty Start Date End Date Eldon Koehler MD PCP - General 10/06/07 documented as of this encounter
--- OUTSIDE RECORDS SUMMARY | 2024-05-22 17:06 | XMS_ITS | Encounter Summary ---
Author Organization [facility] Address [address] [place] [address] Care Team Providers Care Notcher Name Role Phone Eldon Koehler MD Primary Care Provider [phone] Encounter Details Date Type Department Care Team (Latest Contact Info) Description 07/02/2007 Orders Only HIS CONVERSION Conversion, History Social History Tobacco Use Types Packs/Day Years Used Date Smoking Tobacco: Never Assessed Sex and Gender Information Value Date Recorded Sex Assigned at Not on file Gender Identity Not on file Sexual Orientation Not on file documented as of this encounter Progress Notes * Conversion, History - 05/04/2008 6:42 AM BACKHOE OPERATOR HOE OPERATOR * Conversion, History - 05/04/2008 6:36 AM BACKHOE OPERATOR HOE OPERATOR documented in this encounter Plan of Treatment Upcoming Encounters Date Type Department Care Team (Late st Contact Info) Description 07/27/2024 9:40 AM CDT Office Visit [facility] Primary Care [address] [place] [address] Eldon Koehler MD [address] [place] [address] [address] [place] [address] documented as of this encounter Visit Diagnoses Not on filedocumented in this encounter Care Teams Notcher Relationship Specialty Start Date End Date Eldon Koehler MD PCP - General 10/06/07 documented as of this encounter
--- OUTSIDE RECORDS SUMMARY | 2024-05-22 17:06 | XMS_ITS | Encounter Summary ---
Author Organization [facility] Address [address] [place] [address] Care Team Providers Care Paper Folder Name Role Phone Eldon Koehler MD Primary Care Provider [phone] Encounter Details Date Type Department Care Team (Late st Contact Info) Description 06/05/2007 Outpatient Historical [facility] Internal Medicine [address] [phone] Eldon Koehler MD [address] [place] [address] [address] [place] [address] Social History Tobacco Use Types [...] Visit [facility] Primary Care [address] [place] [address] Eldon Koehler MD [address] [place] [address] [address] [place] [phone] documented as of this encounter Visit Diagnoses Not on filedocumented in this encounter Additional Health Concerns Infection Onset Date Last Indicated Resolved Time R/O COVID-19 04/24/202004/25/2020 04/27/2020 7:01 AM MANAGER CONTENT R/O COVID-19 04/27/2021 05/02/2021 05/04/2021 1:16 AM MANAGER CONTENT documented as of this encounter Care Teams Paper Folder Relationship Specialty Start Date End Date Eldon Koehler MD PCP - General 10/06/07 documented as of this encounter
--- OUTSIDE RECORDS SUMMARY | 2024-05-22 17:06 | XMS_ITS | Encounter Summary ---
Author Organization [facility] Address [address] [place] [address] Care Team Providers Care Bevel Mill Operator Name Role Phone Eldon Koehler MD Primary Care Provider [phone] Reason for Visit * Reason Comments Joint Pain Encounter Details Date Type Department Care Team (Late st Contact Info) Description 10/06/2007 12:00 PM CDT Office Visit [facility] Internal Medicine [address] [address] Eldon Koehler MD [address] [place] [address] Restless Leg Syndrome; Impaired Fasting Glucose; Unspecified Asthma; Unspecified Hypothyroidism; Other and Unspecified Hyperlipidemia; Depressive Disorder, not Elsewhere Classified; Arthritis Social History Tobacco Use Types Packs/Day Years [...] Reading Time Taken Comments Blood Pressure 120/80 10/06/2007 12:13 PM CDT Pulse - - Temperature - - Respiratory Rate - - Oxygen Saturation - - Inhaled Oxygen Concentration - - Weight 120.7 kg (266 lb) 10/06/2007 12:13 PM CDT Height 170.2 cm (5' 7 ) 10/06/2007 12:13 PM CDT Body Mass Index 41.66 10/06/2007 12:13 PM CDT documented in this encounter Progress Notes * Eldon Koehler MD - 10/06/2007 1:18 PM CDT Subjective: Winifred Rodriguez is a 57 y.o. female. Patient Active Problem List Diagnoses Date Noted ??? Restless Leg Syndrome [333.94J] 10/04/2007 ??? Impaired Fasting Glucose [790.21] 08/03/2007 ??? Unspecified Asthma [493.90] 06/05/2007 ??? Unspecified Sleep Apnea [780.57] 06/05/2007 ??? Unspecified Backache [724.5] 03/02/2007 ??? Headache [784.0] 12/17/2006 ??? Unspecified Hypothyroidism [244.9] 04/19/2005 ??? Osteoarth NOS-Unspec [715.90] 10/19/2004 ??? Depressive Disorder, not Elsewhere Classified [311] 06/08/2003 ??? Other and Unspecified Hyperlipidemia [272.4] 06/07/2003 Past Medical History Diagnosis Date ??? Unspecified Arthropathy, Site Unspecified ??? Unspecified Disorder of Lipoid Metabolism ??? Unspecified Essential Hypertension History Substance Use Topics ??? Tobacco Use: Never ??? Alcohol Use: No HPI Since last visit noted severe hand pain , swelling in jts of hands, worse at night, does have morining stiffnes, pain severe, sharp, constant, no help with otc nsaids, some fatigue, -vickie chol med., Patient denies any exertional chest pain, dyspnea, palpitations, syncope, orthopnea, edema or paroxysmal nocturnal dyspnea. _RLS worse, on 1 mg med some improvement--x 3d Review of Systems: During the review of [...] Routine Visits: \Blood pressure 120/80, height 5' 7 (1.702 m), weight 266 lb (120.657 kg). General appearance: healthy appearing, active, alert, [...] Encounter Diagnoses Code Name Primary? Qualifier ??? 333.94J Restless Leg Syndrome Plan: CBC WITH DIFFERENTIAL, COMPREHENSIVE METABOLIC PANEL, HEMOGLOBIN A1C ??? 790.21 Impaired Fasting Glucose ??? 493.90 Unspecified Asthma ??? 244.9 Unspecified Hypothyroidism Plan: TSH ??? 272.4 Other and Unspecified Hyperlipidemia Plan: LIPID PANEL ??? 311 Depressive Disorder, not Elsewhere Classified Plan: VITAMIN B12 ??? 716.90R Arthritis Plan: XR HAND 2 VW BILAT, SEDIMENTATION RATE, DEBORAH SCN W REFLX DS-DNA, LOREN SCN W REFLX AB, RHEUMATOID FACTOR PLAN: Orders Placed This Encounter Procedure ??? Xr hand 2 vw bilat ??? Cbc with differential ??? Comprehensive metabolic panel ??? Hemoglobin a1c ??? Lipid panel ??? Vitamin b12 ??? Tsh ??? Sedimentation rate ??? Deborah scn w reflx ds-dna, loren scn w reflx ab ??? Rheumatoid factor ??? Celecoxib 200 mg cap try inc requip to 0.5--to 1mg if needed Appropriate medications prescribed (see detailed AVS). Appropriate patient instructions provided (see detailed AVS). Follow-up as I have indicated. Medications and options explained to include common side effects. Understanding of medications, course, diagnosis, and expectations were expressed by patient/guardian. ' documented in this encounter Plan of Treatment Upcoming Encounters Date Type Department Care Team (Late st Contact Info) Description 07/27/2024 9:40 AM CDT Office Visit [facility] Primary Care [address] [place] [address] Eldon Koehler MD [address] [place] [address] [place] [address] documented as of this encounter Procedures Procedure Name Priority Date/Time Associated Diagnosis Comments DEBORAH SCREEN W/REFL DS-DNA Routine 10/21/2007 1:00 PM CDT LOREN ANTIBODIES (SM AND SM/PEOPLESOFT ADMINISTRATOR) Routine 10/21/2007 1:00 PM CDT CBC WITH DIFFERENTIAL Routine 10/21/2007 1:00 PM CDT SEDIMENTATION RATE Routine 10/21/2007 1: 00 PM CDT RHEUMATOID FACTOR Routine 10/21/2007 1:0 0 PM CDT TSH Routine 10/21/2007 1:00 PM CDT HEMOGLOBIN A1C Routine 10/21/2007 1:00 PM CDT VITAMIN B12 LEVEL Routine 10/21/2007 1:0 0 PM CDT LIPID PANEL Routine 10/21/2007 1:00 PM CDT COMPREHENSIVE METABOLIC PANEL Routine 10/21/2007 1:00 PM CDT documented in this encounter Results * RHEUMATOID FACTOR (10/21/2007 1:00 PM CDT) [facility] RHEUMATOID FACTOR 3 <14 IU/mL [facility] Comment: Test Performed at: [facility] [id number] [place] [address] ??[phone] MARY ANN DILLON MD Eldon Koehler MD CHEMISTRY ORDERABLES Performing Organization Address [facility] Co de Phone Number [address] [address] * LOREN ANTIBODIES (SM AND SM/PEOPLESOFT ADMINISTRATOR) (10/21/2007 1:00 PM CDT) [facility] REIS IGG AB <1.0 NEG <1.0 NEG AI [facility] LOREN ABS, SM/PEOPLESOFT ADMINISTRATOR AB <1.0 NEG <1.0 NEG AI [facility] Comment: Test Performed at: [facility] ??[phone] MARY ANN DILLON MD Eldon Koehler MD CHEMISTRY ORDERABLES Performing Organization Address [facility]/ZIP Co de Phone Number [address] [address] * DEBORAH SCREEN W/REFL DS-DNA (10/21/2007 1:00 PM CDT) [facility] DEBORAH SCREEN NEGATIVE NEGATIVE [facility] Comment: Test Performed at: [facility] [place] [address] [place] ??[address] MARY ANN DILLON MD Eldon Koehler MD CHEMISTRY ORDERABLES Performing Organization Address [facility] Co de Phone Number [facility] [phone] [place] [address] * SEDIMENTATION RATE (10/21/2007 1:00 PM CDT) ESR (SEDIMENTATION RATE) 5 < OR = 30 mm/h [facility] Comment: Test Performed at: [facility] ??[address] MARY ANN DILLON MD Eldon Koehler MD HEMATOLOGY ORDERABLE S Performing Organization Address [facility] Co de Phone Number [facility] [address] [address] * TSH (10/21/2007 1:00 PM CDT) TSH 2.40 mIU/L [facility] Comment: REFERENCE RANGE: > OR = 20 YEARS: 0.40-4.50 ? RANGES FIRST TRIMESTER ?0.20-4.70 SECOND TRIMESTER ?? 0.30-4.10 THIRD TRIMESTER ?0.40-2.70 Test Performed at: [facility] ??[address] MARY ANN DILLON MD Eldon Koehler MD CHEMISTRY ORDERABLES Performing Organization Address [facility] Co de Phone Number [facility] [address] [place] [address] * (ABNORMAL) HEMOGLOBIN A1C (10/21/2007 1:00 PM CDT) HEMOGLOBIN A1C 6.0(H) % of total Hgb [facility] Comment: NON-DIABETIC: <6.0% Test Performed at: [facility] [address] ??[phone] MARY ANN DILLON MD Eldon Koheler MD CHEMISTRY ORDERABLES Performing Organization Address City/[facility]/ZIP Co de Phone Number [facility] [address] [place] [address] * (ABNORMAL) COMPREHENSIVE METABOLIC PANEL (10/21/2007 1:00 PM CDT) GLUCOSE 100(H) 65 - 99 mg/dL [facility] Comment:FASTING REFERENCE IN TERVAL BUN 15 7 - 25 mg/dL [facility] . [facility] CREATININE 0.82 0.50 - 1.20 mg/dL [facility] GFR >60 > OR = 60 mL/min/1 .73m2 [facility] GFR, >60 > OR = 60 mL/min/1 .73m2 [facility] BUN/CREAT RATIO NOT APPLICABLE 6 - 22 (calc) [facility] Comment: BUN/CREATININE RATIO IS NOT REPORTED WHEN THE BUN AND CREATININE VALUES ARE WITHIN NORMAL LIMITS. SODIUM 141 135 - 146 mmol/L [facility] POTASSIUM 4.7 3.5 - 5.3 mmol/L [facility] CHLORIDE 106 98 - 110 mmol/L [facility] . [facility] CO2 26 21 - 33 mmol/L [facility] CALCIUM 9.0 8.6 - 10.2 mg/dL [facility] TOTAL PROTEIN 6.8 6.2 - 8.3 g/dL [facility] ALBUMIN 4.1 3.6 - 5.1 g/dL [facility] GLOBULIN 2.7 2.2 - 3.9 g/dL (calc) [facility] ALBUMIN/GLOBULI N RATIO 1.5 1.0 - 2.1 (calc) [facility] BILIRUBIN TOTAL 0.6 0.2 - 1.2 mg/dL [facility] ALKALINE PHOSPHATASE 143(H) 33 - 130 U/L [facility] AST 16 10 - 35 U/L [facility] ALT 21 6 - 40 U/L [facility] Comment: Test Performed at: [facility] [place] [address] [place], [place] ??[phone] MARY ANN DILLON MD Eldon Koehler MD CHEMISTRY ORDERABLES Performing Organization Address City/[facility]/ZIP Co de Phone Number [facility] [address] [place] [address] * LIPID PANEL (10/21/2007 1:00 PM CDT) TRIGLYCERIDE 115 <150 mg/dL [facility] Comment: Test Performed at: [facility] [place] [address] [facility] [place] ??[address] MARY ANN DILLON MD CHOLESTEROL 159 125 - 200 mg/dL [facility] HDL 45 > OR = 40 mg/dL [facility] CALCULATED LDL CHOLESTEROL 91 <130 mg/dL (calc) [facility] Comment: DESIRABLE RANGE <100 MG/DL FOR PATIENTS WITH CHD OR DIABETES AND <70 MG/DL FOR DIABETIC PATIENTS WITH KNOWN HEART DISEASE. CHOL/HDL RATIO 3.5 < OR = 5.0 (calc) [facility] Eldon Koehler MD CHEMISTRY ORDERABLES Performing Organization Address City/State/[facility] Co de Phone Number [facility] [address] [place] [address] * CBC WITH DIFFERENTIAL (10/21/2007 1:00 PM CDT) WBC 8.8 3.8 - 10.8 Thousand/u L [facility] RBC 4.54 3.80 - 5.10 Million/uL [facility] HEMOGLOBIN 13.4 11.7 - 15.5 g/dL [facility] HEMATOCRIT 40.1 35.0 - 45.0 % [facility] MCV 88.2 80.0 - 100.0 fL [facility] MCH 29.5 27.0 - 33.0 pg [facility] MCHC 33.4 32.0 - 36.0 g/dL [facility] RDW 14.8 11.0 - 15.0 % [facility] PLATELETS 311 140 - 400 Thousand/u L [facility] NEUTROPHIL ABSOLUTE 5,993 1,500 - 7,800 cells/uL [facility] . [facility] LYMPHOCYTE ABSOLUTE 1,910 850 - 3,900 cells/uL [facility] . [facility] MONOCYTE ABSOLUTE 581 200 - 950 cells/uL [facility] . [facility] EOSINOPHIL ABSOLUTE 273 15 - 500 cells/uL [facility] BASOPHILS ABSOLUTE 44 0 - 200 cells/uL [facility] NEUTROPHIL 68.1 % [facility] LYMPHOCYTES 21.7 % [facility] MONOCYTE 6.6 % [facility] EOSINOPHILS 3.1 % [facility] BASOPHILS 0.5 % [facility] Comment: Test Performed at: [facility] [address] [place] ??[address] MARY ANN DILLON MD Eldon Koehler MD HEMATOLOGY ORDERABLE S Performing Organization Address [facility]/ZIP Co de Phone Number [facility] [phone] [place] [address] * VITAMIN B12 (10/21/2007 1:00 PM CDT) VITAMIN B12 396 200 - 1100 pg/mL [facility] Comment: PLEASE NOTE: ALTHOUGH THE REFERENCE RANGE FOR VITAMIN B12 IS 200-1100 PG/ML, IT HAS BEEN REPORTED THAT BETWEEN 5 AND 10% OF PATIENTS WITH VALUES BETWEEN 200 AND 400 PG/ML MAY EXPERIENCE NEUROPSYCHIATRIC AND HEMATOLOGIC ABNORMALITIES DUE TO OCCULT B12 DEFICIENCY; LESS THAN 1% OF PATIENTS WITH VALUES ABOVE 400 PG/ML WILL HAVE SYMPTOMS. Test Performed at: [facility] ??[phone] MARY ANN DILLON MD Eldon Koehler MD CHEMISTRY ORDERABLES Performing Organization Address [facility]/ZIP Co de Phone Number [facility] [address] [address] documented in this encounter Visit Diagnoses Diagnosis Restless leg syndrome Restless legs syndrome (RLS) Impaired fasting glucose Unspecified asthma(493.90) Unspecified asthma Unspecified hypothyroidism Other and unspecified hyperlipidemia Depressive disorder, not elsewhere classified Arthritis Arthropathy, unspecified, site unspecified documented in this encounter Care Teams Bevel Mill Operator Relationship Specialty Start Date End Date Eldon Koehler MD PCP - General 10/06/07 documented as of this encounter
--- OUTSIDE RECORDS SUMMARY | 2024-05-22 17:06 | XMS_ITS | Encounter Summary ---
Author Organization [facility] Address [address] [place] [address] Care Team Providers Care Spreader Box Operator Name Role Phone Unavailable Primary Care Provider Unavailabl e Encounter Details Date Type Department Care Team (Late st Contact Info) Description 03/17/2007 Orders Only [facility] Internal Medicine [address] [address] Eldon Koehler MD [address] [place] [address] Social History Tobacco Use Types Packs/Day Years Used Date Smoking Tobacco: Never Assessed Sex and Gender Information Value Date Recorded Sex Assigned at Not on file Gender Identity Not on file Sexual Orientation Not on file documented as of this encounter Progress Notes * Eldon Koehler MD - 09/24/2007 4:59 PM CDT WHO TOOK THE CALL: Iliana Mike C TIME:09:15 am Pt waiting for test resultsAlso Pt seeing neuro on the Mar labs are all stable, cont med as current ukendr 03/17/07 04:07 pm STAFF FOLLOW UP: . spoke with pt. given above results. /fran Electronically Signed by: Renee Low on Saturday, March 17, 2007 documented in this encounter Plan of Treatment Upcoming Encounters Date Type Department Care Team (Late st Contact Info) Description 07/27/2024 9:40 AM CDT Office Visit [facility] Primary Care [address] [place] [address] Eldon Koehler MD [address] [place] [address] [address] [place] [address] documented as of this encounter Visit Diagnoses Not on filedocumented in this encounter
--- OUTSIDE RECORDS SUMMARY | 2024-05-22 17:06 | XMS_ITS | Encounter Summary ---
Author Organization [facility] Address [address] [place] [address] Care Team Providers Care Financial Analysis Advisor Name Role Phone Eldon Koehler MD Primary Care Provider Encounter Details Date Type Department Care Team (Late st Contact Info) Description 01/15/2006 Orders Only [facility] Internal Medicine [address] [address] Eldon Koehler MD [address] [place] [address] Social History Tobacco Use Types Packs/Day Years Used Date Smoking Tobacco: Never Assessed Sex and Gender Information Value Date Recorded Sex Assigned at Not on file Gender Identity Not on file Sexual Orientation Not on file documented as of this encounter Progress Notes * Eldon Koehler MD - 02/23/2008 5:25 PM CDT WEIGHT: 252lbs BLOOD PRESSURE: 134/76 Left Arm Sitting NURSE NAME: Angelina Magaña J CHIEF COMPLAINT Patient here for follow up of hypothyroidism, hyperlipidemia. HISTORY: HISTORY: 244.9-HYPOTHYROIDISM The hypothyroidism is stable. 272.4-HYPERLIPIDEMIA The patient is tolerating the medications. 715.90-OSTEOARTHROSIS UNSPECIFIED The arthritis has improved.did not get inj PHYSICAL EXAMINATION: CONSTITUTIONAL: GENERAL APPEARANCE: Healthy appearing [...] hepatosplenomegaly, tenderness or nodularity. Kidneys not palpable. ASSESSMENT/PLAN: 244.9-HYPOTHYROIDISM inc med slightly LAB ORDERS: 3 mo Order number: [id number] Test Ordered: COMPREHENSIVE METABOLIC PANEL W/ GLOMERULAR FILTRATION RATE, ESTIMATED (EGFR) [id number] Order number: [id number] Test Ordered: LIPID PANEL 7600 Order number: [id number] Test Ordered: TSH 899 272.4-HYPERLIPIDEMIA cont med 311-DEPRESSION cont med 715.90-OSTEOARTHROSIS UNSPECIFIED celebrex prn RETURN VISIT : Patient instructed to return in 3 months. Electronically Signed by: Eldon Koehler MD on Sunday, January 15, 2006 documented in this encounter Plan of Treatment Upcoming Encounters Date Type Department Care Team (Late st Contact Info) Description 07/27/2024 9:40 AM CDT Office Visit [facility] Primary Care [address] Eldon Koehler MD [address] [place] [phone] documented as of this encounter Visit Diagnoses Not on filedocumented in this encounter Additional Health Concerns Infection Onset Date Last Indicated Resolved Time R/O COVID-19 04/24/2020 04/25/2020 04/27/2020 7:01 AM PHARMACIST IN CHARGE OWNER R/O COVID-19 04/27/2021 05/02/2021 05/04/2021 1:16 AM PHARMACIST IN CHARGE OWNER documented as of this encounter Care Teams Financial Analysis Advisor Relationship Specialty Start Date End Date Eldon Koehler MD PCP - General 10/06/07 documented as of this encounter
--- OUTSIDE RECORDS SUMMARY | 2024-05-22 17:06 | XMS_ITS | Encounter Summary ---
Author Organization [facility] Address [address] [place] [address] Care Team Providers Care Special Education Resource Room Teacher Name Role Phone Eldon Koehler MD Primary Care Provider Encounter Details Date Type Department Care Team (Late st Contact Info) Description 07/10/2005 Orders Only [facility] Internal Medicine [address] [address] Eldon Koehler MD [address] [place] [address] Social History Tobacco Use Types Packs/Day Years Used Date Smoking Tobacco: Never Assessed Sex and Gender Information Value Date Recorded Sex Assigned at Not on file Gender Identity Not on file Sexual Orientation Not on file documented as of this encounter Progress Notes * Eldon Koehler MD - 02/18/2008 4:48 PM CDT WEIGHT: 250lbs BLOOD PRESSURE: 130/80 Right Arm Sitting TEMPERATURE: 37.4??c Oral NURSE NAME: Renee Low R CHIEF COMPLAINT Patient complains of chest congestion, cough, fever. HISTORY: HISTORY: 244.9-HYPOTHYROIDISM The hypothyroidism is stable. 272.4-HYPERLIPIDEMIA The patient is tolerating the medications. 466.0-BRONCHITIS ACUTE cough kendrick x 2-3 days worsening, occ wheeze PHYSICAL EXAMINATION: EARS, NOSE, MOUTH AND THROAT: EARS: Tympanic membranes shiny without retraction bilaterally. ORAL: OROPHARYNX ERYTHEMATOUS. NECK/THYROID: Trachea midline. No thyroid enlargement, tenderness, or mass. No supraclavicular or cervical adenopathy. RESPIRATORY: Clear to auscultation and percussion. Normal respiratory effort. CARDIOVASCULAR: CARDIAC: Regular rhythm. No murmurs, rubs, or gallops. EDEMA/VARICOSITIES OF EXTREMITIES: No edema or varicosities. GASTROINTESTINAL: ABDOMEN: Soft, non-tender, without masses. Bowel sounds active. LIVER/SPLEEN/KIDNEY: No hepatosplenomegaly, tenderness or nodularity. Kidneys not palpable. ASSESSMENT/PLAN: 244.9-HYPOTHYROIDISM borderline reassess LAB ORDERS: 4 mo Order number: [id number] Test Ordered: COMPREHENSIVE METABOLIC PANEL W/ GLOMERULAR FILTRATION RATE, ESTIMATED (EGFR) [id number] Order number: [id number] Test Ordered: LIPID PANEL 7600 Order number: [id number] Test Ordered: TSH 899 466.0-BRONCHITIS ACUTE rx, call if inc wheeze noted MEDICATIONS: KETEK ORAL TABLET 400 MG, 2 Every Morning, 10 Dispensed, status: NEW PRESCRIPTION, 07/10/2005. ALBUTEROL SULFATE INHALATION AEROSOL SOLUTION 108 MCG/ACT, 2 Four Times A Day, 1 Dispensed, status:NEW PRESCRIPTION, 07/10/2005. RETURN VISIT : Instructed to call if not improving.cancel 07/19 appt Electronically Signed by: Eldon Koehler MD on Sunday, July 10, 2005 documented in this encounter Plan of Treatment Upcoming Encounters Date Type Department Care Team (Late st Contact Info) Description 07/27/2024 9:40 AM CDT Office Visit [facility] Primary Care [address] [place] [address] Eldon Koehler MD [address] [place] [address] [place] [address] [place] [address] documented as of this encounter Visit Diagnoses Not on filedocumented in this encounter Care Teams Special Education Resource Room Teacher Relationship Specialty Start Date End Date Eldon Koehler MD PCP - General 10/06/07 documented as of this encounter
--- OUTSIDE RECORDS SUMMARY | 2024-05-22 17:06 | XMS_ITS | Encounter Summary ---
Author Organization [facility] Address [address] [place] [address] Care Team Providers Care Craft Center Director Name Role Phone Giselle Kelley MD Primary Care Provider Encounter Details Date Type Department Care Team (Late st Contact Info) Description 10/18/2005 Orders Only [facility] Internal Medicine [address] [address] Giselle Kelley MD [address] [place] [phone] Social History Tobacco Use Types Packs/Day Years Used Date Smoking Tobacco: Never Assessed Sex and Gender Information Value Date Recorded Sex Assigned at Not on file Gender Identity Not on file Sexual Orientation Not on file documented as of this encounter Progress Notes * Giselle Kelley MD - 02/19/2008 7:04 AM CDT [facility] GISELLE KELLEY MD [address] [place] [address] October 18, 2005 WINIFRED PIPER [address] [place] [phone] Dear Winifred: Please find enclosed your recent test results along with an explanation. MAMMOGRAM - normal limits. Sincerely yours, GISELLE KELLEY MD documented in this encounter Plan of Treatment Upcoming Encounters Date Type Department Care Team (Late st Contact Info) Description 07/27/2024 9:40 AM CDT Office Visit [facility] Primary Care [address] [place] [address] Giselle Kelley MD [address] [place] [address] [address] [place] [address] documented as of this encounter Visit Diagnoses Not on filedocumented in this encounter Care Teams Craft Center Director Relationship Specialty Start Date End Date Giselle Kelley MD PCP - General 10/06/07 documented as of this encounter
--- OUTSIDE RECORDS SUMMARY | 2024-05-22 17:06 | XMS_ITS | Encounter Summary ---
Author Organization [facility] Address [address] [place]: [place] [address] Care Team Providers Care Acid Supervisor Name Role Phone Eldon Koehler MD Primary Care Provider [phone] Encounter Details Date Type Department Care Team (Latest Contact Info) Description 10/11/2005 Orders Only Conversion, History Social History Tobacco Use Types Packs/Day Years Used Date Smoking Tobacco: Never Assessed Sex and Gender Information Value Date Recorded Sex Assigned at Not on file Gender Identity Not on file Sexual Orientation Not on file documented as of this encounter Progress Notes * Conversion, History - 10/17/2007 9:12 AM CDT documented in this encounter Plan of Treatment Upcoming Encounters Date Type Department Care Team (Late st Contact Info) Description 07/27/2024 9:40 AM CDT Office Visit [facility] Primary Care [address] [place] [address] Eldon Koehler MD [address] [place] [address] [address] [place] [address] documented as of this encounter Visit Diagnoses Not on filedocumented in this encounter Care Teams Acid Supervisor Relationship Specialty Start Date End Date Eldon Koehler MD PCP - General 10/06/07 documented as of this encounter
--- OUTSIDE RECORDS SUMMARY | 2024-05-22 17:06 | XMS_ITS | Encounter Summary ---
Author Organization [facility] Address [address] [place] [address] Care Team Providers Care Trade Union Secretary Name Role Phone Unavailable Primary Care Provider Unavailabl e Encounter Details Date Type Department Care Team (Late st Contact Info) Description 03/02/2007 Orders Only [facility] Internal Medicine [address] [address] Giselle Kelley MD [address] [place] [address] Social History Tobacco Use Types Packs/Day Years Used Date Smoking Tobacco: Never Assessed Sex and Gender Information Value Date Recorded Sex Assigned at Not on file Gender Identity Not on file Sexual Orientation Not on file documented as of this encounter Progress Notes * Giselle Kelley MD - 09/25/2007 1:32 PM CDT WHO TOOK THE CALL: Giselle Kelley M TIME:05:00 pm * Giselle Kelley MD - 09/25/2007 1:32 PM CDT CENTRAL TEST SCHEDULING DATE: MAR 02, 2007 Note created by: Martha Plata R 11:43 a Patient Name : WINIFRED PIPER Address: [address] [place] [address]. [facility] D.O.B: 1950 SSN: [id number] Parent/Guardian if applicable: Work Phone: Patient Insurance: [employer] ID#: [id number] Group#: ORDER(S) #: [id number] xray of L spine PLEASE SCHEDULE THE APPOINTMENT AT THE FOLLOWING LOCATION: patient to walk in ORDERING PHYSICIAN: GISELLE KELLEY MD OFFICE BLOCKER POLISHING & PHONE: Martha Plata R * Giselle Kelley MD - 09/25/2007 1:32 PM CDT WEIGHT: 259lbs BLOOD PRESSURE: 130/74 Right Arm Sitting NURSE NAME: GómezAngelina J CHIEF COMPLAINT Patient complains of back pain. after helping her mother move HISTORY: HISTORY: 244.9-HYPOTHYROIDISM No complications noted from the medication presently being used. 272.4-HYPERLIPIDEMIA The patient is tolerating the medications. The patient has not had any labs done recently. 311-DEPRESSION The patient denies excessive crying, a persistent feeling of sadness and hopelessness, and fatigue. 787.91-DIARRHEA chorinic pt qu celiac sprue--niece has 724.5-BACK PAIN lifting furniture, now with numbness rle, has hx of spinal fusion, metal in back from battery PAST MEDICAL HISTORY: chol, depn FAMILY HISTORY: mother colon cancer SOCIAL HISTORY: TOBACCO USE: Has no significant smoking history. DISCUSSED SMOKING: neg. ALCOHOL: Does not give any significant history [...] or nodularity. Kidneys not palpable. MUSCULOSKELETAL EXAM: ls tender right leg with dec sens calf, strength ok NEUROLOGIC: DEEP TENDON REFLEXES: Deep tendon reflexes 2+/4 and symmetrical. ASSESSMENT/PLAN: 244.9-HYPOTHYROIDISM cont med, recheck lab LAB ORDERS: Order number: [id number] Test Ordered: CBC W/ DIFFERENTIAL 3150 Order number: [id number] Test Ordered: COMPREHENSIVE METABOLIC PANEL & GFR 1112 Order number: [id number] Test Ordered: LIPID PANEL 1078 Order number: [id number] Test Ordered: TSH 1720 add celiac disease comprehensive panel--37715 333.99-RESTLESS LEG SYNDROME better with med 787.91-DIARRHEA check lab as above--will need repeat colonoscopy 724.5-BACK PAIN complicated, prev surgery, refer NS LAB ORDERS: Order number: [id number] Test Ordered: XRAY L SPINE, ROUTINE (5 VIEWS) W/OBL SPECIALTY REFERRAL: NEUROSURGERY Miguel Angel Randolph Patient Education: Risks, benefits, and possible side effects of medication(s) were reviewed with the patient. RETURN VISIT : Instructed to call if not improving. Electronically Signed by: Giselle Kelley MD on Friday, March 02, 2007 documented in this encounter Plan of Treatment Upcoming Encounters Date Type Department Care Team (Late st Contact Info) Description 07/27/2024 9:40 AM CDT Office Visit [facility] Primary Care [address] [place] [address] Giselle Kelley MD [address] [place] [address] [address] [place] [address] documented as of this encounter Visit Diagnoses Not on filedocumented in this encounter
--- OUTSIDE RECORDS SUMMARY | 2024-05-22 17:06 | XMS_ITS | Encounter Summary ---
Author Organization [facility] Address [address] [place] [address] Care Team Providers Care Industrial Analyst Name Role Phone Eldon Koehler MD Primary Care Provider Encounter Details Date Type Department Care Team (Late st Contact Info) Description 10/19/2004 Outpatient Historical [facility] Internal Medicine [address] [phone] Eldon Koehler MD [address] [place] [address] [address] [place] [address] Social History Tobacco Use Types Packs/Day Years Used Date Smoking Tobacco: Never Assessed Sex and Gender Information Value Date Recorded Sex Assigned at Not on file Gender Identity Not on file Sexual Orientation Not on file documented as of this encounter Last Filed Vital Signs Vital Sign Reading Time Taken Comments Blood Pressure 12/880 10/19/2004 1:00 PM CDT Pulse - - Temperature - - Respiratory Rate - - Oxygen Saturation - - Inhaled Oxygen Concentration - - Weight 112.9 kg (249 lb) 10/19/2004 1:00 PM CDT Height - - Body Mass Index 39 06/08/2003 3:30 PM TEXTILE CONSERVATOR documented in this encounter Plan of Treatment Upcoming Encounters Date Type Department Care Team (Late st Contact Info) Description 07/27/2024 9:40 AM CDT Office Visit [facility] Primary Care [address] [place] [address] Eldon Koehler MD [address] [place] [address] documented as of this encounter Visit Diagnoses Not on filedocumented in this encounter Additional Health Concerns Infection Onset Date Last Indicated Resolved Time R/O COVID-19 04/24/2020 04/25/2020 04/27/2020 7:01 AM TEXTILE CONSERVATOR R/O COVID-19 04/27/2021 05/02/2021 05/04/2021 1:16 AM TEXTILE CONSERVATOR documented as of this encounter Care Teams Industrial Analyst Relationship Specialty Start Date End Date Eldon Koehler MD PCP - General 10/06/07 documented as of this encounter
--- OUTSIDE RECORDS SUMMARY | 2024-05-22 17:06 | XMS_ITS | Encounter Summary ---
Author Organization [facility] Address [address] [place]: [place] [address] Care Team Providers Care Mobility Architect Manager Name Role Phone Unavailable Primary Care Provider Unavailabl e Encounter Details Date Type Department Care Team (Latest Contact Info) Description 04/10/2006 Orders Only Conversion, History Social History Tobacco Use Types Packs/Day Years Used Date Smoking Tobacco: Never Assessed Sex and Gender Information Value Date Recorded Sex Assigned at Not on file Gender Identity Not on file Sexual Orientation Not on file documented as of this encounter Progress Notes * Conversion, History - 10/02/2007 12:32 PM CDT documented in this encounter Plan of Treatment Upcoming Encounters Date Type Department Care Team (Late st Contact Info) Description 07/27/2024 9:40 AM CDT Office Visit [facility] Primary Care [address] [place] [address] Eldon Koehler MD [address] [place] [address] [place] [address] [place] [address] documented as of this encounter Visit Diagnoses Not on filedocumented in this encounter
--- OUTSIDE RECORDS SUMMARY | 2024-05-22 17:06 | XMS_ITS | Encounter Summary ---
Author Organization [facility] Address [address] [place] [address] Care Team Providers Care Trench Digging Machine Operator Name Role Phone Eldon Koehler MD Primary Care Provider [phone] Encounter Details Date Type Department Care Team (Late st Contact Info) Description 10/16/2005 Outpatient Historical [facility] Internal Medicine [address] [phone] Eldon Koehler MD [address] [place] [address] [address] [place] [address] Social History Tobacco Use Types Packs/Day Years Used Date Smoking Tobacco: Never Assessed Sex and Gender Information Value Date Recorded Sex Assigned at Not on file Gender Identity Not on file Sexual Orientation Not on file documented as of this encounter Last Filed Vital Signs Vital Sign Reading Time Taken Comments Blood Pressure 104/70 10/16/2005 10:30 AM CDT Pulse - - Temperature - - Respiratory Rate - - Oxygen Saturation - - Inhaled Oxygen Concentration - - Weight 113.4 kg (250 lb) 10/16/2005 10:30 AM CDT Height - - Body Mass Index 39.16 06/08/2003 3:30 PM TEST PREPARATION TUTOR documented in this encounter Plan of Treatment Upcoming Encounters Date Type Department Care Team (Late st Contact Info) Description 07/27/2024 9:40 AM CDT Office Visit [facility] Primary Care [address] [place] [address] Eldon Koehler MD [address] [place] [address] documented as of this encounter Visit Diagnoses Not on filedocumented in this encounter Additional Health Concerns Infection Onset Date Last Indicated Resolved Time R/O COVID-19 04/24/2020 04/25/2020 04/27/2020 7:01 AM TEST PREPARATION TUTOR R/O COVID-19 04/27/2021 05/02/2021 05/04/2021 1:16 AM TEST PREPARATION TUTOR documented as of this encounter Care Teams Trench Digging Machine Operator Relationship Specialty Start Date End Date Eldon Koehler MD PCP - General 10/06/07 documented as of this encounter
--- OUTSIDE RECORDS SUMMARY | 2024-05-22 17:06 | XMS_ITS | Encounter Summary ---
Author Organization [facility] Address [address] [place] [address] Care Team Providers Care Collateral Clerk Name Role Phone Eldon Koehler MD Primary Care Provider [phone] Encounter Details Date Type Department Care Team (Late st Contact Info) Description 08/26/2006 Outpatient Historical [facility] Internal Medicine [address] [address] Eldon Koehler MD [address] [place] [address] Social History Tobacco Use Types Packs/Day Years Used Date Smoking Tobacco: Never Assessed Sex and Gender Information Value Date Recorded Sex Assigned at Not on file Gender Identity Not on file Sexual Orientation Not on file documented as of this encounter Last Filed Vital Signs Vital Sign Reading Time Taken Comments Blood Pressure 130/70 08/26/2006 12:15 PM CDT Pulse - - Temperature 38.3 ??C (100.9 ??F) 08/26/2006 12:15 PM CDT Respiratory Rate - - Oxygen Saturation - - Inhaled Oxygen Concentration - - Weight 116.1 kg (256 lb) 08/26/2006 12:15 PM CDT Height - - Body Mass Index 40.1 06/08/2003 3:30 PM COIL WINDER documented in this encounter Plan of Treatment Upcoming Encounters Date Type Department Care Team (Late st Contact Info) Description 07/27/2024 9:40 AM CDT Office Visit [facility] Primary Care [address] [place] [address] Eldon Koehler MD [address] [place] [address] [address] [place] [address] documented as of this encounter Visit Diagnoses Not on filedocumented in this encounter Additional Health Concerns Infection Onset Date Last Indicated Resolved Time R/O COVID-19 04/24/2020 04/25/2020 04/27/2020 7:01 AM COIL WINDER R/O COVID-19 04/27/2021 05/02/2021 05/04/2021 1:16 AM COIL WINDER documented as of this encounter Care Teams Collateral Clerk Relationship Specialty Start Date End Date Eldon Koehler MD PCP - General 10/06/07 documented as of this encounter
--- OUTSIDE RECORDS SUMMARY | 2024-05-22 17:06 | XMS_ITS | Encounter Summary ---
Author Organization [facility] Address [address] [place] [address] Care Team Providers Care Commercial Announcer Name Role Phone Eldon Koehler MD Primary Care Provider [phone] Encounter Details Date Type Department Care Team (Late st Contact Info) Description 03/14/[address] [facility] Internal Medicine [address] [address] Eldon Koehler MD [address] [place] [address] Social History Tobacco Use Types Packs/Day Years Used Date Smoking Tobacco: Never Assessed Sex and Gender Information Value Date Recorded Sex Assigned at Not on file Gender Identity Not on file Sexual Orientation Not on file documented as of this encounter Last Filed Vital Signs Vital Sign Reading Time Taken Comments Blood Pressure 150/80 03/14/2004 2:30 PM HIGH SCHOOL ENGLISH TEACHER Pulse - - Temperature 37.8 ??C (100.1 ??F) 03/14/2004 2:[address] Respiratory Rate - - Oxygen Saturation - - Inhaled Oxygen Concentration - - Weight 115.2 kg (254 lb) 03/14/2004 2:30 PM HIGH SCHOOL ENGLISH TEACHER Height - - Body Mass Index 39.78 06/08/2003 3:30 PM HIGH SCHOOL ENGLISH TEACHER documented in this encounter Plan of Treatment Upcoming Encounters Date Type Department Care Team (Late st Contact Info) Description 07/27/2024 9:40 AM CDT Office Visit [facility] Primary Care [address] [place] [phone] Eldon Koehler MD [address] [place] [address] [address] [place] [phone] documented as of this encounter Visit Diagnoses Not on filedocumented in this encounter Additional Health Concerns Infection Onset Date Last Indicated Resolved Time R/O COVID-19 04/24/2020 04/25/2020 04/27/2020 7:01 AM HIGH SCHOOL ENGLISH TEACHER R/O COVID-19 04/27/2021 05/02/2021 05/04/2021 1:16 AM HIGH SCHOOL ENGLISH TEACHER documented as of this encounter Care Teams Commercial Announcer Relationship Specialty Start Date End Date Edlon Koehler MD PCP - General 10/06/07 documented as of this encounter
--- OUTSIDE RECORDS SUMMARY | 2024-05-22 17:06 | XMS_ITS | Encounter Summary ---
Author Organization [facility] Address [address] [place] [address] Care Team Providers Care Cancer Genetic Counselor Name Role Phone Eldon Koehler MD Primary Care Provider Encounter Details Date Type Department Care Team (Late st Contact Info) Description 01/28/2006 Orders Only [facility] Internal Medicine [address] [address] Eldon Koehler MD [address] [place] [address] Social History Tobacco Use Types Packs/Day Years Used Date Smoking Tobacco: Never Assessed Sex and Gender Information Value Date Recorded Sex Assigned at Not on file Gender Identity Not on file Sexual Orientation Not on file documented as of this encounter Progress Notes * Eldon Koehler MD - 02/23/2008 6:10 PM CDT TIME:10:59 am PATIENT`S HOME PHONE: PATIENT`S WORK PHONE: PATIENT`S INSURANCE: [employer] [facility] WHO TOOK THE CALL: Mitra Ward L GENERAL INFORMATION ALTERNATIVE PHONE NUMBER: [phone] WHO CALLED: Patient called. SECTION 1: REQUESTED ACTION licasl 01/28/06 at 10:59 am: MEDICATION REQUEST: Patient requests a refill.[facility] Needs script for 90 day supply mailed to her. (not on list. Said you had given samples before.) DOCTOR`S RESPONSE: anita 01/28/06 at 11:03 am MEDICATIONS: Call in to Pharmacy [facility] CAPSULE CONVENTIONAL 200 MG, 1 Every Day, 90 Dispensed, 3 Fills, status: NEW PRESCRIPTION, 01/28/2006. FINAL ACTION: licasl 01/28/06 at 11:36 am Mailed script to pt. Electronically Signed by: Mitra Ward on Saturday, January 28, 2006 documented in this encounter Plan of Treatment Upcoming Encounters Date Type Department Care Team (Late st Contact Info) Description 07/27/2024 9:40 AM CDT Office Visit [facility] Primary Care [address] [phone] Eldon Koehler MD [address] [place] [address] documented as of this encounter Visit Diagnoses Not on filedocumented in this encounter Additional Health Concerns Infection Onset Date Last Indicated Resolved Time R/O COVID-19 04/24/2020 04/25/2020 04/27/2020 7:01 AM BED RUBBER R/O COVID-19 04/27/2021 05/02/2021 05/04/2021 1:16 AM BED RUBBER documented as of this encounter Care Teams Cancer Genetic Counselor Relationship Specialty Start Date End Date Eldon Koehler MD PCP - General 10/06/07 documented as of this encounter
--- OUTSIDE RECORDS SUMMARY | 2024-05-22 17:06 | XMS_ITS | Encounter Summary ---
Author Organization [facility] Address [address] [place]: [place] [address] Care Team Providers Care Health Care Legal Assistant Name Role Phone Eldon Koehler MD Primary Care Provider [phone] Encounter Details Date Type Department Care Team (Latest Contact Info) Description 07/20/2004 Orders Only Conversion, History Social History Tobacco Use Types Packs/Day Years Used Date Smoking Tobacco: Never Assessed Sex and Gender Information Value Date Recorded Sex Assigned at Not on file Gender Identity Not on file Sexual Orientation Not on file documented as of this encounter Progress Notes * Conversion, History - 10/13/2007 2:52 PM CDT documented in this encounter Plan of Treatment Upcoming Encounters Date Type Department Care Team (Late st Contact Info) Description 07/27/2024 9:40 AM CDT Office Visit [facility] Primary Care [address] [place] [address] Eldon Koehler MD [address] [place] [address] [address] [place] [phone] documented as of this encounter Visit Diagnoses Not on filedocumented in this encounter Care Teams Health Care Legal Assistant Relationship Specialty Start Date End Date Eldon Koehler MD PCP - General 10/06/07 documented as of this encounter
--- OUTSIDE RECORDS SUMMARY | 2024-05-22 17:06 | XMS_ITS | Encounter Summary ---
Author Organization [facility] Address [address] [place]: [place] [address] Care Team Providers Care Supervisor Public Health Nursing Name Role Phone Eldon Koehler MD Primary Care Provider [phone] Encounter Details Date Type Department Care Team (Latest Contact Info) Description 07/30/2004 Orders Only Conversion, History Social History Tobacco Use Types Packs/Day Years Used Date Smoking Tobacco: Never Assessed Sex and Gender Information Value Date Recorded Sex Assigned at Not on file Gender Identity Not on file Sexual Orientation Not on file documented as of this encounter Progress Notes * Conversion, History - 10/16/2007 7:09 PM CDT documented in this encounter Plan of Treatment Upcoming Encounters Date Type Department Care Team (Late st Contact Info) Description 07/27/2024 9:40 AM CDT Office Visit [facility] Primary Care [address] [place] [address] Eldon Koehler MD [address] [place] [address] [address] [place] [phone] documented as of this encounter Visit Diagnoses Not on filedocumented in this encounter Care Teams Supervisor Public Health Nursing Relationship Specialty Start Date End Date Eldon Koehler MD PCP - General 10/06/07 documented as of this encounter
--- OUTSIDE RECORDS SUMMARY | 2024-05-22 17:06 | XMS_ITS | Encounter Summary ---
Author Organization [facility] Address [address] [place] [address] Care Team Providers Care Medical Bill Processor Name Role Phone Eldon Koehler MD Primary Care Provider [phone] Encounter Details Date Type Department Care Team (Late st Contact Info) Description 09/28/2003 Outpatient Historical [facility] Internal Medicine [address] [address] Eldon Koehler MD [address] [place] [address] [address] [place] [address] Social History Tobacco Use Types Packs/Day Years Used Date Smoking Tobacco: Never Assessed Sex and Gender Information Value Date Recorded Sex Assigned at Not on file Gender Identity Not on file Sexual Orientation Not on file documented as of this encounter Last Filed Vital Signs Vital Sign Reading Time Taken Comments Blood Pressure 107/ 09/28/2003 10:30 AM CDT Pulse - - Temperature - - Respiratory Rate - - Oxygen Saturation - - Inhaled Oxygen Concentration - - Weight 109.8 kg (242 lb) 09/28/2003 10:30 AM CDT Height - - Body Mass Index 37.9 06/08/2003 3:30 PM ED TECH documented in this encounter Plan of Treatment Upcoming Encounters Date Type Department Care Team (Late st Contact Info) Description 07/27/2024 9:40 AM CDT Office Visit [facility] Primary Care [address] [place] [address] Eldon Koehler MD [address] [place] [address] documented as of this encounter Visit Diagnoses Not on filedocumented in this encounter Additional Health Concerns Infection Onset Date Last Indicated Resolved Time R/O COVID-19 04/24/2020 04/25/2020 04/27/2020 7:01 AM ED TECH R/O COVID-19 04/27/2021 05/02/2021 05/04/2021 1:16 AM ED TECH documented as of this encounter Care Teams Medical Bill Processor Relationship Specialty Start Date End Date Eldon Koehler MD PCP - General 10/06/07 documented as of this encounter
--- OUTSIDE RECORDS SUMMARY | 2024-05-22 17:06 | XMS_ITS | Encounter Summary ---
Author Organization [facility] Address [address] [place] [address] Care Team Providers Care Stencil Cutter Name Role Phone Eldon Koehler MD Primary Care Provider [phone] Encounter Details Date Type Department Care Team (Late st Contact Info) Description 12/30/2006 Orders Only [facility] Internal Medicine [address] [address] Eldon Koehler MD [address] [place] [phone] Social History Tobacco Use Types Packs/Day Years Used Date Smoking Tobacco: Never Assessed Sex and Gender Information Value Date Recorded Sex Assigned at Not on file Gender Identity Not on file Sexual Orientation Not on file documented as of this encounter Progress Notes * Eldon Koehler MD - 09/29/2007 1:43 PM CDT TIME:10:05 am PATIENT`S HOME PHONE: PATIENT`S WORK PHONE: PATIENT`S INSURANCE: [employer] [facility] WHO TOOK THE CALL: Mitra Ward L GENERAL INFORMATION ALTERNATIVE PHONE NUMBER: [phone](call pt back) WHO CALLED: Patient called. Patient reports no known allergies. PHARMACY NUMBER: [phone] PROBLEMS: Seen in the office on 12/17/06. Started on Topamax 25 mg. od. Having side effects. Started the day after she took the med. Numbness & tingling in feet & hands. Can't sleep. Can't drive because she feels too out of it. Can't concentrate or think of words. Very thirsty. Knows you can't just stop med. Only took 1/2 of pill last night. RLS is still really bad. DIZZINESS:Patient complains of dizziness. The symptoms began approximately 2 weeks ago. NAUSEA: The symptoms began approximately 2 weeks ago. SECTION 1: REQUESTED ACTION licasl 12/30/06 at 10:12 am: MEDICATION REQUEST: Patient requests a change in current medication. DOCTOR`S RESPONSE: anita 12/30/06 at 10:25 am rizwana mancilla topamax, try alt MEDICATIONS: Call in to Pharmacy REQUIP ORAL KIT(MULTIPLE COMPONENT 0.25 & 0.5 & 1 MG, DIRECTED, 30 Duration/Days Supply,status: NEW PRESCRIPTION, 12/30/2006. FINAL ACTION: haylie 12/30/06 at 04:17 pm Called pharmacy at 12/30/06 at 04:17 pm. Electronically Signed by: Iliana Mike on Saturday, December 30, 2006 documented in this encounter Plan of Treatment Upcoming Encounters Date Type Department Care Team (Late st Contact Info) Description 07/27/2024 9:40 AM CDT Office Visit [facility] Primary Care [place] [address] Eldon Koehler MD [address] [place] [address] documented as of this encounter Visit Diagnoses Not on filedocumented in this encounter Additional Health Concerns Infection Onset Date Last Indicated Resolved Time R/O COVID-19 04/24/2020 04/25/2020 04/27/2020 7:01 AM SPLUNK CONSULTANT R/O COVID-19 04/27/2021 05/02/2021 05/04/2021 1:16 AM SPLUNK CONSULTANT documented as of this encounter Care Teams Stencil Cutter Relationship Specialty Start Date End Date Eldon Koehler MD PCP - General 10/06/07 documented as of this encounter
--- OUTSIDE RECORDS SUMMARY | 2024-05-22 17:06 | XMS_ITS | Encounter Summary ---
Author Organization [facility] Address [address] [place]: [place] [address] Care Team Providers Care Mcat Instructor Name Role Phone Unavailable Primary Care Provider Unavailabl e Encounter Details Date Type Department Care Team (Latest Contact Info) Description 10/05/2006 Orders Only Conversion, History Social History Tobacco Use Types Packs/Day Years Used Date Smoking Tobacco: Never Assessed Sex and Gender Information Value Date Recorded Sex Assigned at Not on file Gender Identity Not on file Sexual Orientation Not on file documented as of this encounter Progress Notes * Conversion, History - 09/27/2007 2:20 AM CDT documented in this encounter Plan of Treatment Upcoming Encounters Date Type Department Care Team (Late st Contact Info) Description 07/27/2024 9:40 AM CDT Office Visit [facility] Primary Care [address] [place] [address] Eldon Koehler MD [address] [place] [address] [place] [address] [place] [address] documented as of this encounter Visit Diagnoses Not on filedocumented in this encounter
--- OUTSIDE RECORDS SUMMARY | 2024-05-22 17:06 | XMS_ITS | Encounter Summary ---
Author Organization [facility] Address [address] [place] [address] Care Team Providers Care Vp Packaging Name Role Phone Eldon Koehler MD Primary Care Provider [phone] Encounter Details Date Type Department Care Team (Late st Contact Info) Description 07/20/2004 Outpatient Historical [facility] Internal Medicine [address] [address] Eldon Koehler MD [address] [place] [address] Social History Tobacco Use Types Packs/Day Years Used Date Smoking Tobacco: Never Assessed Sex and Gender Information Value Date Recorded Sex Assigned at Not on file Gender Identity Not on file Sexual Orientation Not on file documented as of this encounter Last Filed Vital Signs Vital Sign Reading Time Taken Comments Blood Pressure 130/70 07/20/2004 1:15 PM CASE MANAGERS Pulse - - Temperature 36.9 ??C (98.4 ??F) 07/20/2004 1:15 PM CS T Respiratory Rate - - Oxygen Saturation - - Inhaled Oxygen Concentration - - Weight 115.2 kg (254 lb) 07/20/2004 1:15 PM CASE MANAGERS Height - - Body Mass Index 39.78 06/08/2003 3:30 PM CASE MANAGERS documented in this encounter Plan of Treatment Upcoming Encounters Date Type Department Care Team (Late st Contact Info) Description 07/27/2024 9:40 AM CDT Office Visit [facility] Primary Care [address] [place] [phone] Eldon Koehler MD [address] [place] [address] [address] [place] [phone] documented as of this encounter Visit Diagnoses Not on filedocumented in this encounter Additional Health Concerns Infection Onset Date Last Indicated Resolved Time R/O COVID-19 04/24/2020 04/25/2020 04/27/2020 7:01 AM CASE MANAGERS R/O COVID-19 04/27/2021 05/02/2021 05/04/2021 1:16 AM CASE MANAGERS documented as of this encounter Care Teams Vp Packaging Relationship Specialty Start Date End Date Eldon Koehler MD PCP - General 10/06/07 documented as of this encounter
--- OUTSIDE RECORDS SUMMARY | 2024-05-22 17:06 | XMS_ITS | Encounter Summary ---
Author Organization [facility] Address [address] [place] [address] Care Team Providers Care Director Energy Name Role Phone Eldon Koehler MD Primary Care Provider Encounter Details Date Type Department Care Team (Late st Contact Info) Description 08/26/2005 Orders Only [facility] Internal Medicine [address] [address] Eldon Koehler MD [address] [place] [address] Social History Tobacco Use Types Packs/Day Years Used Date Smoking Tobacco: Never Assessed Sex and Gender Information Value Date Recorded Sex Assigned at Not on file Gender Identity Not on file Sexual Orientation Not on file documented as of this encounter Progress Notes * Eldon Koehler MD - 02/19/2008 1:34 AM CDT TIME:10:29 am anita 08/26/05 10:29 am ADDITIONAL TEST REQUESTS/ORDERS: . 723.1-NECK PAIN LAB ORDERS: Order number: [id number] Test Ordered: FRANKY flores 08/26/05 10:40 am STAFF FOLLOW UP: . Completed request. Electronically Signed by: Vee Frazier on Friday, August 26, 2005 documented in this encounter Plan of Treatment Upcoming Encounters Date Type Department Care Team (Late st Contact Info) Description 07/27/2024 9:40 AM CDT Office Visit [facility] Primary Care [address] [place] [address] Eldon Koehler MD [address] [place] [address] [address] [place] [address] documented as of this encounter Visit Diagnoses Not on filedocumented in this encounter Care Teams Director Energy Relationship Specialty Start Date End Date Eldon Koehler MD PCP - General 10/06/07 documented as of this encounter
--- OUTSIDE RECORDS SUMMARY | 2024-05-22 17:06 | XMS_ITS | Encounter Summary ---
Author Organization [facility] Address [address] [place]: [place] [address] Care Team Providers Care Forest Fire Control Officer Name Role Phone Eldon Koehler MD Primary Care Provider [phone] Encounter Details Date Type Department Care Team (Latest Contact Info) Description 08/26/2006 Orders Only Conversion, History Social History Tobacco Use Types Packs/Day Years Used Date Smoking Tobacco: Never Assessed Sex and Gender Information Value Date Recorded Sex Assigned at Not on file Gender Identity Not on file Sexual Orientation Not on file documented as of this encounter Progress Notes * Conversion, History - 10/15/2007 8:09 PM CDT documented in this encounter Plan of Treatment Upcoming Encounters Date Type Department Care Team (Late st Contact Info) Description 07/27/2024 9:40 AM CDT Office Visit [facility] Primary Care [address] [place] [address] Eldon Koehler MD [address] [place] [address] [address] [place] [address] documented as of this encounter Visit Diagnoses Not on filedocumented in this encounter Care Teams Forest Fire Control Officer Relationship Specialty Start Date End Date Eldon Koehler MD PCP - General 10/06/07 documented as of this encounter
--- OUTSIDE RECORDS SUMMARY | 2024-05-22 17:06 | XMS_ITS | Encounter Summary ---
Author Organization [facility] Address [address] [place] [address] Care Team Providers Care Record Maker Name Role Phone Eldon Koehler MD Primary Care Provider [phone] Encounter Details Date Type Department Care Team (Late st Contact Info) Description 06/05/2007 Orders Only [facility] Internal Medicine [address] [address] Eldon Koehler MD [address] [place] [address] Social History Tobacco Use Types Packs/Day Years Used Date Smoking Tobacco: Never Assessed Sex and Gender Information Value Date Recorded Sex Assigned at Not on file Gender Identity Not on file Sexual Orientation Not on file documented as of this encounter Progress Notes * Eldon Koehler MD - 09/23/2007 8:41 PM CDT WEIGHT: 266lbs BLOOD PRESSURE: 140/80 Right Arm Sitting TEMPERATURE: 36.39??c Oral NURSE NAME: Renee Low R TOBACCO USE Patient does not currently use tobacco. CHIEF COMPLAINT Patient complains of cough, shortness of breath. HISTORY: HISTORY: 244.9-HYPOTHYROIDISM No complications noted from the medication presently being used. 272.4-HYPERLIPIDEMIA The patient is tolerating the medications. 311-DEPRESSION off med inc fatigue 333.99-RESTLESS LEG SYNDROME stable with med 780.57-SLEEP APNEA snoring fatigue inc recently 493.90-ASTHMA UNSPECIFIED recent inc cough kendrick wheeze worse at night ROS: ENDOCRINE: No heat or cold intolerance, [...] distress. EARS, NOSE, MOUTH AND THROAT: EARS: EFFUSION PRESENT BILATERALLY, TYMPANIC MEMBRANES INFLAMED BILATERALLY. ORAL: OROPHARYNX ERYTHEMATOUS. NECK/THYROID: Trachea midline. No [...] hepatosplenomegaly, tenderness or nodularity. Kidneys not palpable. PSYCHIATRIC: Judgment appropriate. Oriented. Normal memory. Mood and affect appropriate. ASSESSMENT/PLAN: 244.9-HYPOTHYROIDISM contm ed LAB ORDERS: Order number: [id number] Test Ordered: COMPREHENSIVE METABOLIC PANEL & GFR 1112 Order number: [id number] Test Ordered: HEMOGLOBIN A1C 1814 Order number: [id number] Test Ordered: TSH 1720 Order number: [id number] Test Ordered: VITAMIN B12 LEVEL 1719 Order number: [id number] Test Ordered: SLEEP STUDY 272.4-HYPERLIPIDEMIA cont med, check lab 311-DEPRESSION discussed may need reassess for med 333.99-RESTLESS LEG SYNDROME cont med 715.90-OSTEOARTHROSIS UNSPECIFIED unchanged 493.90-ASTHMA UNSPECIFIED rx MEDICATIONS: ALBUTEROL SULFATE INHALATION AEROSOL SOLUTION 108 (90 BASE) MCG/ACT, 2 Four Times A Day, 1 Dispensed, status: CONTINUED, 06/05/2007. ZITHROMAX Z-MIRI ORAL TABLET 250 MG, DIRECTED, 1 Dispensed, status: NEW PRESCRIPTION, 06/05/2007. MEDROL (MIRI) ORAL TABLET 4 MG, DIRECTED, 1 Dispensed, status: NEW PRESCRIPTION, 06/05/2007. 780.57-SLEEP APNEA check sleep study Patient Education: Risks, benefits, and possible side effects of medication(s) were reviewed with the patient. The patient was allowed to ask questions to stated satisfaction. RETURN VISIT : Patient instructed to return in 6 weeks. Electronically Signed by: Eldon Koehler MD on Tuesday, June 05, 2007 documented in this encounter Plan of Treatment Upcoming Encounters Date Type Department Care Team (Late st Contact Info) Description 07/27/2024 9:40 AM CDT Office Visit [facility] [place] [address] [place] [address] Eldon Koehler MD [address] [place] [address] [address] [place] [phone] documented as of this encounter Visit Diagnoses Not on filedocumented in this encounter Additional Health Concerns Infection Onset Date Last Indicated Resolved Time R/O COVID-19 04/24/2020 04/25/2020 04/27/2020 7:01 AM CALTRANS EQUIPMENT OPERATOR R/O COVID-19 04/27/2021 05/02/2021 05/04/2021 1:16 AM CALTRANS EQUIPMENT OPERATOR documented as of this encounter Care Teams Record Maker Relationship Specialty Start Date End Date Eldon Koehler MD PCP - General 10/06/07 documented as of this encounter
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
--- OUTSIDE RECORDS SUMMARY | 2024-05-22 17:07 | XMS_ITS | Encounter Summary ---
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 Gender Identity Female 01/31/2021 9:15 AM CDT Sexual Orientation Straight 08/21/2020 10 :14 AM CDT documented as of this encounter Plan of Treatment Not on file documented as of this encounter Procedures Procedure Name Priority Date/Time Associated Diagnosis Comments EGFR Routine 10/30/2020 12:21 PM CDT Pre-op testing ABO/RH Routine 10/30/2020 12:21 PM CDT Pre-op testing CBC WITHOUT DIFFERENTIAL Routine 10/30/2020 12:21 PM CDT Pre-op testing ANTIBODY SCREEN Routine 10/30/2020 12:21 PM CDT Pre-op testing TYPE AND SCREEN Routine 10/30/2020 12:21 PM CDT Pre-op testing BASIC METABOLIC PANEL Routine 10/30/2020 12:21 PM CDT Pre-op testing documented in this encounter Results * eGFR (10/30/2020 12:21 PM CDT) eGFR 89 mL/min/1.7 3 m2 JESSICA ALBERT Comment: Interpretive Data Reference Interval Normal ?>/= 90 mL/min/1.73m2 Mildly decreased* ? 60 - 89 mL/min/1.73m2 Mildly to moderately decreased ?45 - 59 mL/min/1.73m2 Moderately to severely decreased ??30 - 44 mL/min/1.73m2 Severely decreased ?15 - 29 mL/min/1.73m2 Kidney Failure ?< 15 ??mL/min/1.73m2 *Relative to young adult level Estimated glomerular filtration rate is determined by the CKD-EPI equation recommended by the National Kidney Foundation (KDIGO 2012 Clinical Practice Guideline for the Evaluation and Management of Chronic Kidney Disease. Kidney Intnl Suppl May 2012;3:1). The CKD-EPI equation should not be used for patients with unstable renal function and has not been validated in children and those over 70. Current interpretive data was last reviewed 2020 Blood specimen (specimen) 10/30/2020 12:21 PM CDT 10/30/2020 12:31 PM CDT us Paty Tellez ASSISTANT DEAN LAB BLOOD ORDERABLE S Final Result [facility] [address] [facility]. Department [place] [address] * Antibody screen (10/30/2020 12:21 PM CDT) Romaine, indirect, Gel Interpretation Negative ABSC JESSICA ALBERT Blood specimen (specimen) 10/30/2020 12:21 PM CDT 10/30/2020 12:25 PM CDT Narrative JESSICA ALEXSANDER - 10/30/2020 1:11 PM CDT Is this test being ordered in advance for a procedure?->Yes Expected date of procedure:->11/02/20 Has the patient been transfused in the past 3 months?->No Has the patient been in the past 3 months?->No Paty Tellez LAB BLOOD BANK TEST ORDERABLES Final Result Performing Organization Address [facility] Phone Number [facility] [address] [address] [facility] [place] [place] [address] * ABO/Rh (10/30/2020 12:21 PM CDT) ABO/Rh O Positive JESSICA ALBERT Blood specimen (specimen) 10/30/2020 12:21 PM CDT 10/30/2020 12:25 PM CDT Narrative RADHABASILIA ALEXSANDER - 10/30/2020 1:11 PM CDT QXT reviewed 10/30/2020 12:43:10 CDT [email or web address] Is this test being ordered in advance for a procedure?->Yes Expected date of procedure:->11/02/20 Has the patient been transfused in the past 3 months?->No Has the patient been in the past 3 months?->No Paty Tellez NP LAB BLOOD BANK TEST ORDERABLES Final Result Performing Organization Address [facility] Co de Phone Number [facility]IL[facility] PR[facility]CE[facility] [address] [facility] [place] [address] * (ABNORMAL) CBC without differential (10/30/2020 12:21 PM CDT) Pathologist [facility] WBC 9.7 3.8 - 9.9 K/cumm [facility] Hgb 12.8 11.9 - 15.5 g/dL [facility] Hct 41.6 35.6 - 45.5 % [facility] Plt 303 150 - 400 K/cumm [facility] MPV 10.8 9.1 - 12.3 fL [facility] RBC 4.54 3.90 - 5.20 M/cumm [facility] MCV 91.6 81.3 - 96.4 fL [facility] MCH 28.2 27.1 - 33.3 pg [facility] MCHC 30.8(L) 32.3 - 35.7 g/dL [facility] RDW CV 14.2 11.1 - 14.9 % [facility] RDW SD 47.8 35.7 - 48.1 fL [facility] NRBC abs 0.00 0.00 - 0.01 K/cumm [facility] Blood specimen (specimen) 10/30/2020 12:21 PM CDT 10/30/2020 12:31 PM CDT us Paty Tellez ASSISTANT DEAN LAB BLOOD ORDERABLE S Final Result [facility] [address] [facility]. Department of [place], [place] [id number] * Basic metabolic panel (10/30/2020 12:21 PM CDT) Pathologist [facility] Sodium 140 135 - 145 mmol/L [facility] Potassium, pl 4.6 3.3 - 4.9 mmol/L [facility] Chloride 103 97 - 110 mmol/L [facility] CO2 27 22 - 32 mmol/L [facility] Anion gap 10 2 - 15 mmol/L [facility] BUN 14 8 - 25 mg/dL [facility] Creatinine 0.70 0.60 - 1.10 mg/dL [facility] Glucose 101 70 - 199 mg/dL [facility] Comment: Interpretive Data Fasting glucose >/= 126 mg/dl is diagnostic for diabetes. ?? Fasting is defined as no caloric intake for at least 8 hours. Fasting glucose between 100 mg/dl to 125 mg/dl is diagnostic of prediabetes. In a patient with classic symptoms of hyperglycemia or hyperglycemic crisis, a random glucose >/= 200 mg/dl is diagnostic for diabetes. In the absence of unequivocal hyperglycemia, results should be confirmed by repeat testing. The classification and Diagnosis of Diabetes Diabetes Care 2017;40 (Suppl. 1):S11. Current interpretive data was last revised 2017. Calcium 9.4 8.5 - 10.3 mg/dL [facility] Blood specimen (specimen) 10/30/2020 12:21 PM CDT 10/30/2020 12:31 PM CDT us Paty Tellez ASSISTANT DEAN LAB BLOOD ORDERABLE S Final Result Performing Organization Address City/State/[facility] Co wy Phone Number [facility] [address] [facility] Department [place] [address] documented in this encounter Visit Diagnoses Diagnosis Pre-op testing Unspecified pre-operative examination documented in this encounter Care Teams Nurse Companion Relationship Specialty Start Date End Date Eldon Koehler MD [address] [place] [phone] PCP - General Internal Medicine 08/04/20 documented as of this encounter
--- OUTSIDE RECORDS SUMMARY | 2024-05-22 17:07 | XMS_ITS | Encounter Summary ---
Author Organization [facility] Address [address] [place] [address] Phone Care Team Providers Care Production Manager Name Role Phone Eldon Koehler MD Primary Care Provider + Encounter Details Date Type Department Care Team (Late st Contact Info) Description 09/05/2020 Orders Only [facility] Orthopaedic Surgery [address] [facility] [address] [place] [address] Salomón Edmondson MD [address] [facility] [address] [place] [address] Rotator cuff tear arthropathy of right shoulder (Primary Dx) Social History Tobacco Use Types Packs/Day Years Used Date Smoking Tobacco: Never Comments Unknown Sex and Gender Information Value Date Recorded Sex Assigned at Not on file Legal Sex Female 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 Gender Identity Female 01/31/2021 9:15 AM CDT Sexual Orientation Straight 08/21/2020 10 :14 AM CDT documented as of this encounter Plan of Treatment Not on file documented as of this encounter Visit Diagnoses Diagnosis Rotator cuff tear arthropathy of right shoulder- Primary documented in this encounter Orders Case Request Count Last Ordered Date First Orde red Date CASE REQUEST OPERATING ROOM 1 09/05/2020 documented in this encounter Care Teams Production Manager Relationship Specialty Start Date End Date Eldon Koehler MD [address] [place] [phone] PCP - General Internal Medicine 08/04/20 documented as of this encounter
--- OUTSIDE RECORDS SUMMARY | 2024-05-22 17:07 | XMS_ITS | Encounter Summary ---
Author Organization [facility] Healthcare Address [address] [place] [address] Care Team Providers Care Physician Specialist Name Role Phone Eldon Koehler MD Primary Care Provider + Encounter Details Date Type Department Care Team (Late st Contact Info) Description 11/02/2020 2:28 PM CDT Anesthesia Event [facility] Operating Room [address] [place] [address] Stefanie Esteban MD [address] [place] [address] Aubree Pathak NP [address] [place] [address] Anesthesia Record Procedure Summary Procedure Name Responsible Anesthesiologist Anesthesia Start Time Anesthesia Stop Time Right reverse shoulder arthroplasty (Right: Back) Stefanie Esteban MD 11/02/20 1428 11/02/20 1708 Events Date Time Event Comment 11/02/2020 1156 In Preop 1252 1350 Time out - Regional 1350 Face Time 1350 Start Supplemental O2 1350 An Block Induction The patie nt was reevaluated immediately before moderate or deep sedation and before anesthesia induction. 1357 Block Placed 1428 In Room 1428 AN Equip Check 1428 An Start 1428 An Start Data 1430 An Induction The patient was reevaluated immediately before moderate or deep sedation use and before anesthesia induction. 1433 An Intubation 1443 Anesthesia Ready 1501 Proc Start 1501 Incision Start 1655 An Extubation 1657 an stop data 1657 Proc Fin 1701 Out of Room 1708 Handoff to RN I completed my handoff to the receiving nurse during which we: 1. Patient identified 2. Responsible provider identified 3. Pertinent medical history reviewed 4. Procedure type and surgical course discussed 5. Intraoperative anesthetic management and any significant issues discussed 6. Expectations and concerns for postop period discussed 7. Questions solicited from receiving nurse 8. Patient disposition at the time of handoff: PACU 1708 An Stop Meds Name Total midazolam 2 mg/2 mL 4 mg fentaNYL PF 100 mcg propofol 200 mg lidocaine 1 % PF 0.2 mL bupivacaine 0.5 % PF 30 mL rocuronium 50 mg succinylcholine syringe 100 mg/5 mL 100 mg phenylephrine syringe 100 mcg/mL 100 mcg neostigmine syringe 1 mg/mL 3 mg glycopyrrolate 0.4 mg ondansetron PF 4 mg dexamethasone 4 mg/ml 8 mg ceFAZolin (ANCEF) 1 gram/10 mL in steril e water (premix) 3,000 mg 3,000 mg phenylephrine (YASIR-SYNEPHRIN E) 10,000 mcg in sodium chloride 0.9% 250 mL (40 mcg/mL) infusion 2.45 mg Lactated Ringer's (LR) infusion 1,300 mL * Agents Name O2 N2O Air Sevoflurane Inspired Sevoflurane * Blood No blood administrations on file. Lines, Drains, and Airways Type Details Placement Removal Peripheral IV Placement Date: 11/02/20; Placement Time: 1228; Catheter Size: 20 G; Orientation: Anterior, Left; Location: Forearm; Site Prep: Chlorhexidine; Removal Date: 11/03/20; Removal Time: 1430; Removal Reason: Discharge 11/02/20 1228 by Lilliam Patterson RN 11/03/20 1430 by Lore Maher RN RETIRED Surgical Site 11/02/20; 1340; Right; Shoulder; 04/13/24 (Retired LDA, Removed/Completed by [facility] with LDA Utility); 1213 (Retired LDA, Removed/Completed by [facility] with LDA Utility) 11/02/20 1340 by Alejandra Cabezas RN 04/13/24 1213 by Discharge Provider, Automatic PNB catheter Placement Date: 11/02/20; Placement Time: 1359 (created via procedure documentation); Pt Tolerance: brachial plexus - interscalene; Removal Date: Injectable, Topical, None; Removal Time: Tolerated well; 11/05/20; 1430 11/02/20 1359 by Alison Barnett MD 11/05/20 1430 by Aubree Pathak NP ETT Placement Date: 11/02/20; Placement Time: 1446 (created via procedure documentation); Mask Ventilation: 0; Technique: Video laryngoscopy; Type: ETT - single; Single Lumen Tube Size: 7 mm; Cuffed: Yes; Laryngoscope: Paul; Blade Size: 3; Location: Oral; Insertion Attempts: 1; Placement Verification: Auscultation, Capnometry; Removal Date: 11/02/20; Removal Time: 1655 11/02/20 1446 by Wilfrid Uribe, JEWELRY CUTTER 11/02/20 1655 by Scarlet Currie, JEWELRY CUTTER Closed/Suction/Open Drain 11/02/20; 1637; 1; Right; Shoulder; Accordion; Other (Comment) (removed by PATENT SEARCHER) 11/02/20 1637 by Alejandra Cabezas RN 11/03/20 1400 by Lore Maher, BENEDICT documented in this encounter Social History Tobacco [...] on file 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PER[facility] / [facility] Anesthesia Start: 1428 Anesthesia Stop: 1708 Procedure: Right reverse shoulder arthroplasty (Right Back) Diagnosis: Rotator cuff tear arthropathy of right shoulder (Rotator cuff tear arthropathy of right shoulder [M75.101, M12.811]) Surgeons: Salomón Edmondson MD Responsible Provider: Stefanie Esteban MD Anesthesia Type: general, regional for postop pain per surgeon request, PNB - continuous catheter, PNB - single shot ASA Status: 3 Anesthesia Type: general, regional for postop pain per surgeon request, PNB - continuous catheter, PNB - single shot Last vitals BP 133/61 Pulse 81 Temp 36.7 ??C (98.1 ??F) (Temporal) Resp 16 SpO2 94% Anesthesia Post Evaluation Patient location during evaluation: PACU Patient participation: complete - patient participated Level of consciousness: fully awake Pain score: 0 Pain management: satisfactory to patient Airway patency: patent Evidence of recall: no Cardiovascular status: hemodynamically stable Respiratory status: spontaneous ventilation, non-labored ventilation and room air Hydration status: euvolemic Pt is: normothermic Nausea/Vomiting status: none Comments: Patient in good, stable condition as above. Appropriate for transfer to floor. No complications documented. * Anesthesia Procedure Notes - Wilfrid Uribe CRNA - 11/02/2020 2:45 PM CDTAssociated Order(s): Airway Airway Patient location: OR Urgency: elective Indications for airway management: anesthesia Difficult airway: no Staff: Placed by: JEWELRY CUTTER: Wilfrid Uribe CRNA Emergent airway documentation: Risks and benefits discussed: yes Consent obtained: yes Consent given by: patient Airway prep: Preoxygenated: yes Patient position: sniffing Mask difficulty assessment: 0 - not attempted Spontaneous ventilation during airway: absent Sedation level during airway: GA Final airway details: Final airway type: endotracheal airway Tube type: ETT ETT size: 7.0 mm Cuffed: yes Technique used for successful ETT placement: video laryngoscopy Devices/Methods used in placement: intubating stylet Insertion site: oral Blade type: Paul Video blade type: Adan Blade size: 3 Cormack-Lehane (video): grade I - full view of glottis Cuff volume: 6 mL Cuff inflated with: air ETT to gums: 22 cm Placement verified by: auscultation and CO2 detection Airway secured with: silk tape Number of attempts: 1 * Anesthesia Procedure Notes - Alison Barnett MD - 11/02/2020 1:59 PM CDTAssociated Order(s): Peripheral Block Peripheral Block Patient location during procedure: pre-op holding Reason for block: post-op pain management per surgeon request Block type: single shot Laterality: right Block type: intercostobrachial nerve block Procedure prep: Preprocedure checklist: patient identified, procedure contraindications assessed, site marked, procedure consent, surgical consent, IV checked, risks, benefits and alternatives discussed, monitors and equipment checked and timeout performed Patient position: sitting Procedure performed while patient: sedate with meaningful contact Monitoring: oximetry Supplemental O2: nasal cannula Prep solution: chlorhexidine/alcohol Peripheral nerve block: Technique: landmark(s) Needle type: short-bevel Needle gauge: 25G. Needle length: 50 mm Injection assessment: injection made incrementally with constant monitoring, negative aspiration for heme, no paresthesias noted, normal resistance to injection and see flowsheet for medication details Assessment: Block success: full evaluation pending Events: patient tolerated procedure well with no complications * Anesthesia Procedure Notes - Alison Barnett MD - 11/02/2020 1:59 PM CDTAssociated Order(s): Peripheral Block Peripheral Block Patient location during procedure: pre-op holding Reason for block: post-op pain management per surgeon request Ultrasound image in chart or stored: yes Block type: catheter continuous infusion Laterality: right Block type: brachial plexus - interscalene Procedure prep: Preprocedure checklist: patient identified, procedure contraindications assessed, site marked, procedure consent, surgical consent, IV checked, risks, benefits and alternatives discussed, monitors and equipment checked and timeout performed Patient position: sitting and head of bed elevated Procedure performed while patient: sedate with meaningful contact Monitoring: oximetry Supplemental O2: nasal cannula Prep solution: chlorhexidine/alcohol PPE: provider hat/mask, sterile gloves, sterile drape and sterile probe cover and gel Skin infiltrated with lidocaine 1%: yes Peripheral nerve block: Technique: ultrasound guided Needle type: insulated and short-bevel Needle gauge: 18 G Needle length: 80 mm Injection assessment: injection made incrementally with constant monitoring, local visualized surrounding nerve on ultrasound, negative aspiration for heme, no paresthesias noted, normal resistance to injection and see flowsheet for medication details Catheter: Catheter type: catheter over needle Catheter over needle length: 51 Catheter placement details: catheter position confirmed by ultrasound, catheter tunneled, steri-strips, dermal adhesive, occlusive dressing applied and no aspiration of heme Assessment: Block success: full evaluation pending Events: patient tolerated procedure well with no complications * Anesthesia Preprocedure Evaluation - Alison Barnett MD - 10/30/2020 11:27 AM CDT Images from the original note were not included. [facility] Planning Preoperative Evaluation Record Evaluation type/location: [facility] Planned procedure site: [facility] OR Date: 10/30/20 Anesthesia Evaluation Winifred Vallejo is a 70 y.o. female Procedure(s): Right reverse shoulder arthroplasty Pre-Op Diagnosis Codes: * Rotator cuff tear arthropathy of right shoulder [M75.101, M12.811] HISTORY HPI 70 year old female with Rotator cuff tear arthropathy of right shoulder scheduled for Right reverseshoulder arthroplasty (Right Back) Past Medical History Information obtained from: patient and chart. Neurological Pertinent negatives: seizures; neuromuscular disease; CVA/stroke; TIA; CEA; ICA stenosis; dementia/mild cognitive impairment and carotid artery stent Cardiovascular Pertinent negatives: hypertension ; CAD ; NE ; CABG ; valvular heart disease; valve replacement; atrial fibrillation; arrhythmia; pacemaker/ICD; PVD; DVT/PE; negative for CHF; drug-eluting stent(s); bare metal stent(s) and coronary angioplasty Respiratory + Asthma Dyspnea frequency: never. Rescue inhaler use: never. Hospitalizations/ER in the last year:0. History of oral steroid use. + Sleep apnea (MURIEL) Prescribed device: PAP compliant and CPAP. Pertinent negatives: COPD; pulmonary hypertension; no O2 use outside the hospital; no prior intubation for respiratory failure due to asthma and non-smoker Hepatic / Heme Pertinent negatives: liver disease; history of anemia; history of thrombocytopenia and history of Romaine positive Gastrointestinal + GERD - on daily therapy. Asymptomatic. Pertinent negatives: hiatal hernia Renal / Pertinent negatives: renal disease; dialysis and nephrolithiasis Musculoskeletal/Pain + Chronic pain - fibromyalgia. + Osteoarthritis Pertinent negatives: chronic opioid use and previous treatment for opioid use disorder Endocrine / Other + Thyroid disease - hypothyroidism + Obesity (BMI >30)- morbid obesity (BMI>40). Pertinent negatives: diabetes mellitus; cancer history; rheumatological disease; transplanted organ; infectious disease; eye disorder and pancreatitis Functional Capacity Functional capacity: <4 METs Comments: Patient's functional capacity is limited due to walk more than 1 block pain 2/2 fibromyalgia for greater than 5 years . Patient able to participate in light housework chores, eating, dressing, and bathing. Patient's functional capacity limited due to sedentary lifestyle & multiple comorbidities. Review of Systems + SOB (with modeate activy chronic and stable ) + previous transfusion (self infusion 30 years ago) + chronic pain Pertinent negatives: productive cough; wheezing; recent cold/flu; fever; chest pain; palpitations; orthopnea; pedal edema; PND; heavy menses; Sickle Cell disease/trait; transfusion reaction; melena/hematochezia; easy bruising; bleeding problems; syncope; dizziness; muscle weakness; numbness/tingling; hard of hearing; vision loss (glasses ); heartburn; nausea; dysphagia; diarrhea; dentures/partials; chipped/loose teeth; abdominal pain; diaphoresis and no unexpected weight change PAT Summary and Plans Cardiac risk classification of planned procedure: intermediate cardiac risk. Preoperative assessment status: lab tests ordered. Initial preoperative evaluation discussed with: Jesse Pettit MD Additional comments: Winifred Vallejo is a 70 y.o. female who is being evaluated prior to undergoing an intermediate cardiac risk surgery. Revised Cardiac Risk Index factors are (none) for a total RCRI of 0 out of 6. Functional capacity is <4 METs (specifically:unable to walk more than 1 block w/o SOB ). Obstructive sleep apnea (MURIEL) screening status is HIGH RISK due to known MURIEL. Blood bank needs for day of procedure: Type and Screen only Pending labs/tests include: CBC BMP T&S Patient's COVID19 status is: Unexposed. The patient currently has no concerning symptoms of COVID19. . Patient's COVID-19 vaccination status is Fully vaccinated. Documentation of vaccination status is available in the Epic Immunization tab. . Plan for pre-procedure COVID19 testing: Telephone or Clin ical assessment performed. Patient is asymptomatic and not severely immunocompromised per the criteria in the [facility] Pre-Procedure COVID-19 Testing Update for Fully Vaccinated Patients. 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 COVID Vaccination Record Card unable to be visually verified during assessment. Patient was instructed to bring their COVID Vaccination Record Card on the day of surgery for verification of their vaccination status. Discussed with patient, if COVID Vaccination Record Card is not presented on the day of surgery, surgery may be delayed or canceled. COVID-19 testing is not indicated. The patient is on aspirin therapy for primary prevention. The patient's perioperative cardiovascular risk is deemed low or is outweighed by bleeding risk. If time permits, we support stopping aspirin7 or more days prior to the procedure. The patient reports that such a plan is already in place. Please call the CPAP attending ([phone]) with any questions. Preoperative evaluation performed by Paty Tellez NP on 10/30/20 at 12:10 PM.. Follow up note #1 Labs reviewed and are without significant findings. Surgeon's office reviews laboratory results independently, including final results of surgeon ordered labs. CPAP process complete. Follow-up completed by: Mansi Lyman NP on 10/31/20 at 12:28 PM Patient Active Problem List Diagnosis ??? Arthralgia of shoulder ??? Pain in shoulder ??? Adhesive capsulitis of shoulder ??? Calcific tendinitis of shoulder ??? Rotator cuff syndrome ??? Prediabetes ??? Osteoarthritis ??? Obesity (BMI 35.0-39.9 without comorbidity) ??? Impaired fasting glucose ??? Hypothyroidism ??? Hyperlipemia ??? Hyperhidrosis ??? GERD (gastroesophageal reflux disease) ??? Fibromyalgia ??? Asthma ??? Backache ??? Restless leg syndrome ??? Recurrent major depressive disorder, in partial remission (CMS/HCC) ??? Rotator cuff tear arthropathy of right shoulder Past Medical History: Diagnosis Date ??? Asthma ??? Fibromyalgia ??? GERD (gastroesophageal reflux disease) ??? Sleep apnea Past Surgical History: Procedure Laterality Date ??? CHOLECYSTECTOMY 1997 ??? LAPAROSCOPIC GASTRIC BYPASS 2017 ??? REPLACEMENT TOTAL KNEE BILATERAL 2013, 2016 ??? SHOULDER ARTHROPLASTY Right 2017 ??? SPINAL FUSION 2001, 1991 OB History No obstetric history on file. Allergies Allergen Reactions ??? Nickel Rash ??? Clindamycin Rash Reaction: Rash, ??? Codeine Nausea only Reaction: Nausea, ??? Nsaids (Non-Steroidal Anti-Inflammatory Drug) Other (See comments) S/P SLEEVE GASTRECTOMY Med List Status: Nurse Complete Set By: Lavinia Bailey RN at 10/30/2020 10:57 AM Taking? Last Dose Start Date End Date Provider albuterol HFA (PROVENTIL HFA,VENTOLIN HFA,PROAIR HFA) 90 mcg/actuation inhaler 10/30/2018 05/08/18 -- Arley Russo MD aspirin 81 mg enteric coated tablet 10/27/2020 -- -- Arley Russo MD atorvastatin (LIPITOR) 20 mg tablet 10/30/2020 05/12/05 -- Arley Russo MD buPROPion SR (WELLBUTRIN SR) 150 mg 12 hr tablet 10/29/2020 07/01/20 -- Arley Russo MD calcium carbonate-vitamin D3 (CALTRATE 600 + D) 1500 mg (600 mg elemental) -400 units per tablet 10/30/2020 -- -- Arley Russo MD celecoxib (CeleBREX) 200 mg capsule Past Week -- -- Arley Russo MD cyclobenzaprine (FLEXERIL) 10 mg tablet 07/30/2020 05/22/20 -- Arley Russo MD DULoxetine (CYMBALTA) 60 mg capsule 10/30/2020 06/22/10 -- Arley Russo MD levothyroxine (SYNTHROID) 150 mcg tablet 10/30/2020 01/21/20 -- Arley Russo MD metoprolol XL (TOPROL-XL) 25 mg extended release tablet 10/30/2020 07/04/20 -- Arley Russo MD MULTIVITAMIN ORAL 10/30/2020 -- -- Arley Russo MD omeprazole (PriLOSEC) 20 mg capsule 10/30/2020 11/28/04 -- Arley Russo MD pregabalin (LYRICA) 50 mg capsule 10/30/2020 07/04/20 -- Arley Russo MD rOPINIRole (REQUIP) 0.5 mg tablet 10/29/2020 -- -- Arley Russo MD rOPINIRole (REQUIP) 2 mg tablet 10/29/2020 06/15/12 -- Arley Russo MD Current Outpatient Medications: ??? albuterol HFA (PROVENTIL HFA,VENTOLIN HFA,PROAIR HFA) 90 mcg/actuation inhaler ??? aspirin 81 mg enteric coated tablet ??? atorvastatin (LIPITOR) 20 mg tablet ??? buPROPion SR (WELLBUTRIN SR) 150 mg 12 hr tablet ??? calcium carbonate-vitamin D3 (CALTRATE 600 + D) 1500 mg (600 mg elemental) - 400 units per tablet ??? celecoxib (CeleBREX) 200 mg capsule ??? cyclobenzaprine (FLEXERIL) 10 mg tablet ??? DULoxetine DR (CYMBALTA) 60 mg capsule ??? levothyroxine (SYNTHROID) 150 mcg tablet ??? metoprolol XL (TOPROL-XL) 25 mg extended release tablet ??? MULTIVITAMIN ORAL ??? omeprazole (PriLOSEC) 20 mg capsule ??? pregabalin (LYRICA) 50 mg capsule ??? rOPINIRole (REQUIP) 0.5 mg tablet ??? rOPINIRole (REQUIP) 2 mg tablet Social History Tobacco Use Smoking Status Never Smoker Smokeless Tobacco Never Used Substance and Sexual Activity Alcohol Use Not on file Substance and Sexual Activity Drug Use Never Family History Problem Relation Age of Onset ??? Arthritis Mother Family history of arthritis - (Added by TW Conv) ??? Cancer Mother Family history of malignant neoplasm - (Added by TW Conv) ??? Arthritis Father Family history of arthritis - (Added by TW Conv) ??? Stroke Father Family history of cerebrovascular accident - (Added by TW Conv) ??? Alcohol abuse Father Family history of alcoholism - (Added by TW Conv) ??? Mental illness Daughter Chronic mental illness - (Added by TW Conv) ??? Mental illness Son Chronic mental illness - (Added by TW Conv) ??? PONV Brother PAT Physical Exam Airway Exam: Mallampati: I Cervical ROM: FROM TM distance: 3 Cardiovascular Exam: Rate: regular Rhythm: regular Negative for Murmur No extra heart sounds appreciated Negative for peripheral edema Pulmonary Exam: LCTA, bilat EENT Exam: trachea midline Dental Exam: Appears intact Skin Exam: Skin is warm. Capillary refill is < 3 seconds. Turgor is normal. Abdominal exam: Abdomen is soft. Bowel sounds are present. Current state: Patient's current state is cooperative and interactive. Vitals: 10/30/20 1045 10/30/20 1048 BP: 127/65 130/76 Pulse: 74 SpO2: 96% Relevant diagnostics: ECG(s): 10/30/20 Sinus rhythm HR 70 Marked left axis deviation Pattern consistent with pulmonary disease Echocardiogram(s): N/A Stress test(s): N/A Cardiac catheterization(s): N/A PFT(s): N/A Vascular studies: N/A Other: N/A PT: No results found for requested labs within last 720 hours. INR: No results found for requested labs within last 720 hours. APTT: No results found for requested labs within last 720 hours. Hgb A1C: No results found for requested labs within last 720 hours. CBC RBC: No results found for requested labs within last 720 hours. RDW: No results found for requested labs within last 720 hours. MCHC: No results found for requested labs within last 720 hours. MCH: No results found for requested labs within last 720 hours. MCV: No results found for requested labs within last 720 hours. Hct: No results found for requested labs within last 720 hours. Hgb: No results found for requested labs within last 720 hours. WBC: No results found for requested labs within last 720 hours. MPV: No results found for requested labs within last 720 hours. Platelets: No results found for requested labs within last 720 hours. RDW CV: No results found for requested labs within last 720 hours. RDW Sd: No results found for requested labs within last 720 hours. BMP Glucose: No results found for requested labs within last 720 hours. Calcium: No results found for requested labs within last 720 hours. Sodium: No results found for requested labs within last 720 hours. Potassium: No results found for requested labs within last 720 hours. CO2: No results found for requested labs within last 720 hours. Chloride: No results found for requested labs within last 720 hours. BUN: No results found for requested labs within last 720 hours. Creatinine: No results found for requested labs within last 720 hours. Janine index score: 95 AD8 Dementia Score: 3 Short Blessed Total Score: 0 DOS Physical Exam Medical history, medications, and allergies reviewed. Attestation: This PAT evaluation Airway Exam: Mallampati: III Cervical ROM: FROM Cardiovascular Exam: Rate: regular Rhythm: regular Pulmonary Exam: LCTA, bilat Anesthesia Plan ASA 3 My patient is approved for the Anesthesia Controlled Medication protocol when under care of a JEWELRY CUTTER Planned anesthesia: General, regional for postop pain per surgeon request, PNB - continuous catheter and PNB - single shot Team communication plan: oral ET tube Upper extremity: brachial plexus - interscalene and intercostobrachial nerve block Comments: video fiberoptic Informed Consent: Anesthesia plan and risks discussed with patient. Consent and Attending signature: I and/or my designee have discussed the anesthesia plan, benefits, possible alternatives, parental presence at time of induction (if indicated), and clinically relevant risks that may include dental injury, unintentional awareness, and/or other complications. The patient and/or parent/legal guardian understand, and agree to proceed. All questions answered. documented in this encounter Miscellaneous Notes * Addendum Note - Aubree Pathak NP - 11/10/2020 8:10 AM CDT Addendum created 11/10/20 0810 by Aubree Pathak NP LDA properties accepted documented in this encounter Plan of Treatment Not on file documented as of this encounter Procedures Procedure Name Priority Date/Time Associated Diagnosis Comments IN AN PROCEDURE PLACEHOLDER Routine 11/02/2020 2:45 PM CDT IN AN ELECTIVE ENDOTRACHEAL AIRWAY Routine 11/02/2020 2:45 PM CDT IN AN PROCEDURE PLACEHOLDER Routine 11/02/2020 1:59 PM CDT IN AN PROCEDURE PLACEHOLDER Routine 11/02/2020 1:59 PM CDT BW IP ANE LDA PERIPHERAL NERVE CATHETER Routine 11/02/2020 1:59 PM CDT documented in this encounter Results * IN AN ELECTIVE ENDOTRACHEAL AIRWAY, IN AN PROCEDURE PLACEHOLDER (11/02/2020 2:45 PM CDT) Narrative Wilfrid Uribe CRNA - 11/02/2020 2:45 PM CDT Wilfrid Uribe CRNA ? 11/02/2020 ??2:46 PM Airway Patient location: OR Urgency: elective Indications for airway management: anesthesia Difficult airway: no Staff: Placed by: JEWELRY CUTTER: Wilfrid Uribe CRNA Emergent airway documentation: Risks and benefits discussed: yes Consent obtained: yes Consent given by: patient Airway prep: Preoxygenated: yes Patient position: sniffing Mask difficulty assessment: 0 - not attempted Spontaneous ventilation during airway: absent Sedation level during airway: GA Final airway details: Final airway type: endotracheal airway Tube type: ETT ETT size: 7.0 mm Cuffed: yes Technique used for successful ETT placement: video laryngoscopy Devices/Methods used in placement: intubating stylet Insertion site: oral Blade type: Paul Video blade type: Adan Blade size: 3 Cormack-Lehane (video): grade I - full view of glottis Cuff volume: 6 mL Cuff inflated with: air ETT to gums: 22 cm Placement verified by: auscultation and CO2 detection Airway secured with: silk tape Number of attempts: 1 us Alison Barnett MD ANESTHESIA ORDERABLES Fi nal Result * IN AN PROCEDURE PLACEHOLDER (11/02/2020 1:59 PM CDT) Narrative Alison Barnett MD - 11/02/2020 1:59 PM CDT Alison Barnett MD ? 11/02/2020 ??2:00 PM Peripheral Block Patient location during procedure: pre-op holding Reason for block: post-op pain management per surgeon request Block type: single shot Laterality: right Block type: intercostobrachial nerve block Procedure prep: Preprocedure checklist: patient identified, procedure contraindications assessed, site marked, procedure consent, surgical consent, IV checked, risks, benefits and alternatives discussed, monitors and equipment checked and timeout performed Patient position: sitting Procedure performed while patient: sedate with meaningful contact Monitoring: oximetry Supplemental O2: nasal cannula Prep solution: chlorhexidine/alcohol Peripheral nerve block: Technique: landmark(s) Needle type: short-bevel Needle gauge: 25G. Needle length: 50 mm Injection assessment: injection made incrementally with constant monitoring, negative aspiration for heme, no paresthesias noted, normal resistance to injection and see flowsheet for medication details Assessment: Block success: full evaluation pending Events: patient tolerated procedure well with no complications us Alison Barnett MD ANESTHESIA ORDERABLES Fi nal Result * BW IP ANE LDA PERIPHERAL NERVE CATHETER, IN AN PROCEDURE PLACEHOLDER (11/02/2020 1:59 PM CDT) Narrative Alison Barnett MD - 11/02/2020 1:59 PM CDT Alison Barnett MD ? 11/02/2020 ??1:59 PM Peripheral Block Patient location during procedure: pre-op holding Reason for block: post-op pain management per surgeon request Ultrasound image in chart or stored: yes Block type: catheter continuous infusion Laterality: right Block type: brachial plexus - interscalene Procedure prep: Preprocedure checklist: patient identified, procedure contraindications assessed, site marked, procedure consent, surgical consent, IV checked, risks, benefits and alternatives discussed, monitors and equipment checked and timeout performed Patient position: sitting and head of bed elevated Procedure performed while patient: sedate with meaningful contact Monitoring: oximetry Supplemental O2: nasal cannula Prep solution: chlorhexidine/alcohol PPE: provider hat/mask, sterile gloves, sterile drape and sterile probe cover and gel Skin infiltrated with lidocaine 1%: yes Peripheral nerve block: Technique: ultrasound guided Needle type: insulated and short-bevel Needle gauge: 18 G Needle length: 80 mm Injection assessment: injection made incrementally with constant monitoring, local visualized surrounding nerve on ultrasound, negative aspiration for heme, no paresthesias noted, normal resistance to injection and see flowsheet for medication details Catheter: Catheter type: catheter over needle Catheter over needle length: 51 Catheter placement details: catheter position confirmed by ultrasound, catheter tunneled, steri-strips, dermal adhesive, occlusive dressing applied and no aspiration of heme Assessment: Block success: full evaluation pending Events: patient tolerated procedure well with no complications Alison Barnett MD ANESTHESIA ORDERABLES Fi nal Result documented in this encounter Visit Diagnoses Not on filedocumented in this encounter Administered Medications Inactive Administered Medications - up to 3 most recent administrations Medication Order MAR Action Action Date Dose Rate Site bupivacaine (MARCAINE) 0.5 % (5 mg/mL) preservative free injection perineural, As needed, Starting on Suly 11/02/20 at 1357, Anesthesia Intra-op Given 11/02/2020 1:57 PM CDT 30 mL ceFAZolin (ANCEF) 1 gram/10 mL in sterile water (premix) 3,000 mg 3,000 mg, intravenous, at 600 mL/hr, Administer over 3 Minutes, Once, On Suly 11/02/20 at 1230, For 1 dose, Pre-Op, Administer within 60 minutes of incision., Indications: Prophylaxis, SurgicalIndications:Prophylaxis, Surgical Given 11/02/2020 2:34 PM CDT 3,000 mg dexAMETHasone (DECADRON) 4 mg/mL injection intravenous, Administer over 2 Minutes, As needed, Starting on Suly 11/02/20 at 1634, Anesthesia Intra-op Given 11/02/2020 4:34 PM CDT 8 mg fentaNYL (SUBLIMAZE) preservative free injection intravenous, As needed, Starting on Suly 11/02/20 at 1350, Anesthesia Intra-op Given 11/02/2020 1:50 PM CDT 100 mcg glycopyrrolate (ROBINUL) injection intravenous, Administer over 1 Minutes, As needed, Starting on Suly 11/02/20 at 1634, Anesthesia Intra-op Given 11/02/2020 4:34 PM CDT 0.4 mg Lactated Ringer's (LR) infusion 30 mL/hr, intravenous, Continuous, Starting on Suly 11/02/20 at 1230, For 4 hours, Pre-Op, Use a 500 ml bag for End Stage Renal Disease Patients. Discontinue if fluid still running once patient arrives to floor. New Bag 11/02/2020 4:34 PM CDT Rate/Dose Verify 11/02/2020 2:28 PM CDT 30 mL/h r New Bag 11/02/2020 2:08 PM CDT 30 mL/hr 30 mL/hr lidocaine PF (XYLOCAINE) 10 mg/mL (1 %) preservative free injection infiltration, As needed, Starting on Suly 11/02/20 at 1357, Anesthesia Intra-op Given 11/02/2020 1:57 PM CDT 0.2 mL midazolam (VERSED) 1 mg/mL injection intravenous, As needed, Starting on Suly 11/02/20 at 1350, Anesthesia Intra-op Given 11/02/2020 1:50 PM CDT 4 mg neostigmine injection intravenous, Administer over 3 Minutes, As needed, Starting on Suly 11/02/20 at 1634, Anesthesia Intra-op Given 11/02/2020 4:34 PM CDT 3 mg ondansetron (ZOFRAN) injection intravenous, Administer over 2 Minutes, As needed, Starting on Suly 11/02/20 at 1634, Anesthesia Intra-op Given 11/02/2020 4:34 PM CDT 4 mg phenylephrine (YASIR-SYNEPHRINE) 1 mg/10 mL (100 mcg/mL) in sodium chloride 0.9% (premix) intravenous, As needed, Starting on Suly 11/02/20 at 1630, Anesthesia Intra-op Given 11/02/2020 4:30 PM CDT 100 mcg phenylephrine (YASIR-SYNEPHRINE) 10,000 mcg in sodium chloride 0.9% 250 mL (40 mcg/mL) infusion intravenous, Continuous PRN, Starting on Suly 11/02/20 at 1455, Anesthesia Intra-op New Bag 11/02/2020 2:55 PM CDT 0.2 mcg/kg/min 36.06 mL/hr propofoL (DIPRIVAN) 10 mg/mL IV intravenous, As needed, Starting on Suly 11/02/20 at 1430, Anesthesia Intra-op Given 11/02/2020 2:30 PM CDT 200 mg rocuronium (ZEMURON) injection intravenous, As needed, Starting on Suly 11/02/20 at 1439, Anesthesia Intra-op Given 11/02/2020 2:39 PM CDT 50 mg succinylcholine syringe intravenous, As needed, Starting on Suly 11/02/20 at 1430, Anesthesia Intra-op Given 11/02/2020 2:30 PM CDT 100 mg documented in this encounter Care Teams Physician Specialist Relationship Specialty Start Date End Date Eldon Koehler MD [address] [place] [phone] PCP - General Internal Medicine 08/04/20 documented as of this encounter
--- OUTSIDE RECORDS SUMMARY | 2024-05-22 17:07 | XMS_ITS | Encounter Summary ---
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 Hospital [facility] MD [address] [address] Social History Tobacco Use Types Packs/Day Years Used Date Smoking Tobacco: Never Comments Unknown Sex and Gender Information Value Date Recorded Sex Assigned at Not on file 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 Gender Identity Female 01/31/2021 9:15 AM CDT Sexual Orientation Straight 08/21/2020 10 :14 AM CDT documented as of this encounter Medications at Time of Discharge atorvastatin (LIPITOR) 20 mg tablet Take 20 mg by mouth every morning 05/12/[address] (CYMBALTA) 60 mg capsule Take 60 mg by mouth every morning 06/22/2010 omeprazole (PriLOSEC) 20 mg capsule Take 20 mg by mouth every morning 11/28/2004 rOPINIRole (REQUIP) 2 mg tabletIndications :Restless Legs Syndrome Take 2 mg by mouth nightly 06/15/2012 celecoxib (CeleBREX) 200 mg capsule TAKE 1 CAPSULE BY MOUTH TWO TIMES DAILY 10/29/2008 08/22/2020 documented as of this encounter Plan of Treatment Not on file documented as of this encounter Visit Diagnoses Not on filedocumented in this encounter
--- OUTSIDE RECORDS SUMMARY | 2024-05-22 17:07 | XMS_ITS | Encounter Summary ---
Author Organization [facility] Address [address] [place] [address] Phone Care Team Providers Care Code Enforcement Supervisor Name Role Phone Eldon Koehler MD Primary Care Provider + Encounter Details Date Type Department Care Team (Late st Contact Info) Description 01/05/2021 Telephone [facility] Orthopaedic Surgery [address] [facility] 12th [place] [address] [place] [address] Salomón Edmondson MD [address] [facility] [address] [place], [place] [id number] Social History Tobacco Use Types Packs/Day Years [...] on file 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 She has been resting and icing the shld but has not had any improvement. I asked her to give it the weekend and callus back Friday or Friday with an update. documented in this encounter Plan of Treatment Not on file documented as of this encounter Visit Diagnoses Not on filedocumented in this encounter Care Teams Code Enforcement Supervisor Relationship Specialty Start Date End Date Eldon Koehler MD [address] [place] [phone] PCP - General Internal Medicine 08/04/20 documented as of this encounter
--- OUTSIDE RECORDS SUMMARY | 2024-05-22 17:07 | XMS_ITS | Encounter Summary ---
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 Gender Identity Female 01/31/2021 9:15 AM CDT Sexual Orientation Straight 08/21/2020 10 :14 AM CDT documented as of this encounter Medications at Time of Discharge acetaminophen 500 mg capsuleIndicatio ns:Pain Take 2 capsules (1,000 mg total) by mouth every 6 (six) hours 90 tablet 11/03/2020 albuterol HFA (PROVENTIL HFA,VENTOLIN HFA,PROAIR HFA) 90 mcg/actuation inhalerIndicatio ns:Acute Asthma Attack Inhale 2 puffs 4 (four) times a day as needed 05/08/2018 aspirin 81 mg enteric coated tabletIndication s:Deep Vein Thrombosis Prevention Take 1 tablet (81 mg total) by mouth 2 (two) times a day for 14 days 28 tablet 11/03/2020 atorvastatin (LIPITOR) 20 mg tablet Take 20 mg by mouth every morning 05/12/2005 buPROPion SR (WELLBUTRIN SR) 150 mg 12 hr tablet Take 150 mg by mouth nightly 07/01/2020 calcium carbonate-vitami n D3 (CALTRATE 600 + D) 1500 mg (600 mg elemental) -400 units per tablet Take 1 tablet by mouth every morning cyclobenzaprine (FLEXERIL) 10 mg tablet Take 10 mg by mouth as needed for muscle spasms 05/22/2020 docusate sodium (COLACE) 100 mg capsuleIndicatio ns:constipation Take 1 capsule (100 mg total) by mouth 2 (two) times a day 30 capsule 11/03/[address] (CYMBALTA) 60 mg capsule Take 60 mg by mouth every morning 06/22/2010 levothyroxine (SYNTHROID) 150 mcg tablet Take 150 mcg by mouth lump maker before breakfast 01/21/2020 metoprolol XL (TOPROL-XL) 25 mg extended release tabletIndication s:hypertension Take 25 mg by mouth every morning 07/04/2020 MULTIVITAMIN ORAL Take 1 Dose by mouth every morning omeprazole (PriLOSEC) 20 mg capsule Take 20 mg by mouth every morning 11/28/2004 oxyCODONE (ROXICODONE) 5 mg immediate release tabletIndication s:Pain Take 1 tablet (5 mg total) by mouth every 4 (four) hours as needed for pain 40 tablet 11/03/2020 pregabalin (LYRICA) 50 mg capsuleIndicatio ns:Restless Legs Syndrome Take 50 mg by mouth 2 (two) times a day 07/04/2020 rOPINIRole (REQUIP) 0.5 mg tabletIndication s:Restless Legs Syndrome Take 0.5 mg by mouth nightly rOPINIRole (REQUIP) 2 mg tabletIndication s:Restless Legs Syndrome Take 2 mg by mouth nightly 06/15/2012 aspirin 81 mg enteric coated tabletIndication s:prevention of thrombosis Take 81 mg by mouth every morning 06/25/202 1 celecoxib (CeleBREX) 200 mg capsuleIndicatio ns:Osteoarthriti s Take 200 mg by mouth 2 (two) times a day 1 documented as of this encounter Discharge Disposition Disposition Code Departure Means Destination Discharge to home or self care documented in this encounter Plan of Treatment Not on file documented as of this encounter Procedures Procedure Name Priority Date/Time Associated Diagnosis Comments XR SHOULDER RIGHT 2 OR MORE VIEWS IP Routine 11/02/2020 5:20 PM CDT documented in this encounter Results * XR Shoulder Right 2+ View (11/02/2020 5:20 PM CDT) Anatomical Region Laterality Modality Upper Extremities, Shoulder Right Comp uted Radiography 11/03/2020 6:17 AM CDT Impressions 11/03/2020 6:17 AM CDT New reverse rzel-khp-jfgsof total right glenohumeral arthroplasty in expected position. Electronically signed by: Phil Davis M.D. Narrative 11/03/2020 6:17 AM CDT XR SHOULDER RIGHT 2 OR MORE VIEWS HISTORY: ??Shoulder arthroplasty. FINDINGS: ??2 views of the right shoulder are obtained and compared with 08/22/2020. There is interval reverse wdug-xdj-youfrg total right glenohumeral arthroplasty. Orthopedic components are in expected position. There is no periprosthetic fracture. Overlying soft tissue gas and surgical drain is present. There is unchanged prior distal right clavicular resection. Procedure Note Phil Davis MD - 11/03/2020 XR SHOULDER RIGHT 2 OR MORE VIEWS HISTORY: Shoulder arthroplasty. FINDINGS: 2 views of the right shoulder are obtained and compared with 08/22/2020. There is interval reverse ynbv-wiv-ibvwls total right glenohumeral arthroplasty. Orthopedic components are in expected position. There is no periprosthetic fracture. Overlying soft tissue gas and surgical drain is present. There is unchanged prior distal right clavicular resection. IMPRESSION: New reverse auzw-eul-ynuevp total right glenohumeral arthroplasty in expected position. Electronically signed by: Phil L. Johnston Velde, M.D. us Salomón Edmondson MD IMG XR PROCEDURES Final Re sult documented in this encounter Visit Diagnoses Not on filedocumented in this encounter Care Teams Braille Coder Relationship Specialty Start Date End Date Eldon Koehler MD [address] [place] [phone] PCP - General Internal Medicine 08/04/20 documented as of this encounter
--- OUTSIDE RECORDS SUMMARY | 2024-05-22 17:07 | XMS_ITS | Encounter Summary ---
Author Organization [facility] Healthcare Address [address] [place] [address] Care Team Providers Care Manager Manufacturing Name Role Phone Eldon Koehler MD Primary Care Provider + Reason for Referral * Diagnostic Imaging (Routine) - Closed Specialty Diagnoses / Procedures Referred By Carmen villalobos Referred To Contact Diagnoses Status post reverse arthroplasty of right shoulder Procedures XR Shoulder Right 2+ View Salomón Edmondson MD [address] [facility] [address] [place] [phone] Phone: tel: fax: [address] [phone] Referral ID Status Reason Start Date Expiration Date Visits Re quested Visits Authorized [id number] Closed 12/12/2020 01/11/2022 1 1 Reason for Visit * Diagnostic Imaging (Routine) - Closed Specialty Diagnoses / Procedures Referred By Contac t Referred To Contact Diagnoses Status post reverse arthroplasty of right shoulder Procedures XR Shoulder Right 2+ View Salomón Edmondson MD [address] [facility] [place] [address] Phone: tel: fax: [address] [phone] Referral ID Status Reason Start Date Expiration Date Visits Re quested Visits Authorized [id number] Closed 12/12/2020 01/11/2022 1 1 Encounter Details Date Type Department Care Team (Latest Contact Info) Description 12/26/2020 12:00 PM CDT - 12/26/2020 11:59 PM CDT Hospital Encounter [facility] [address] [place] [address] Salomón Edmondson MD [address] [facility] [address] [place] [address] Status post reverse arthroplasty of right shoulder Discharge Disposition: Discharge to home or self [...] on file 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 Gender Identity Female 01/31/2021 9:15 AM CDT Sexual Orientation Straight 08/21/2020 10 :14 AM CDT documented as of this encounter Medications at Time of Discharge acetaminophen 500 mg capsuleIndications:P ain Take 2 capsules (1,000 mg total) by mouth every 6 (six) hours 90 tablet 11/03/2020 albuterol HFA (PROVENTIL HFA,VENTOLIN HFA,PROAIR HFA) 90 mcg/actuation inhalerIndications:A cute Asthma Attack Inhale 2 puffs 4 (four) times a day as needed 05/08/2018 atorvastatin (LIPITOR) 20 mg tablet Take 20 mg by mouth every morning 05/12/2005 buPROPion SR (WELLBUTRIN SR) 150 mg 12 hr tablet Take 150 mg by mouth nightly 07/01/2020 calcium carbonate-vitamin D3 (CALTRATE 600 + D) 1500 mg (600 mg elemental) -400 units per tablet Take 1 tablet by mouth every morning cyclobenzaprine (FLEXERIL) 10 mg tablet Take 10 mg by mouth as needed for muscle spasms 05/22/2020 docusate sodium (COLACE) 100 mg capsuleIndications:c onstipation Take 1 capsule (100 mg total) by mouth 2 (two) times a day 30 capsule 11/03/[address] (CYMBALTA) 60 mg capsule Take 60 mg by mouth every morning 06/22/2010 levothyroxine (SYNTHROID) 150 mcg tablet Take 150 mcg by mouth upper tier before breakfast 01/21/2020 metoprolol XL (TOPROL-XL) 25 mg extended release tabletIndications:hy pertension Take 25 mg by mouth every morning 07/04/2020 MULTIVITAMIN ORAL Take 1 Dose by mouth every morning omeprazole (PriLOSEC) 20 mg capsule Take 20 mg by mouth every morning 11/28/2004 ondansetron ODT (ZOFRAN-ODT) 4 mg disintegrating tablet Take 1 tablet (4 mg total) by mouth every 8 (eight) hours as needed for nausea or vomiting 20 tablet 11/05/2020 oxyCODONE (ROXICODONE) 5 mg immediate release tabletIndications:Pa in Take 1 tablet (5 mg total) by mouth every 4 (four) hours as needed for pain 40 tablet 11/03/2020 pregabalin (LYRICA) 50 mg capsuleIndications:R estless Legs Syndrome Take 50 mg by mouth 2 (two) times a day 07/04/2020 rOPINIRole (REQUIP) 0.5 mg tabletIndications:Re stless Legs Syndrome Take 0.5 mg by mouth nightly rOPINIRole (REQUIP) 2 mg tabletIndications:Re stless Legs Syndrome Take 2 mg by mouth nightly 06/15/2012 documented as of this encounter Discharge Disposition Disposition Code Departure Means Destination Discharge to home or self care documented in this encounter Plan of Treatment Not on file documented as of this encounter Procedures Procedure Name Priority Date/Time Associated Diagnosis Comments XR SHOULDER RIGHT 2 OR MORE VIEWS Schedule Routine, Read Routine (OP Routine) 12/26/2020 12:18 PM CDT Status post reverse arthroplasty of right shoulder documented in this encounter Results * XR Shoulder Right 2+ View (12/26/2020 12:18 PM CDT) Anatomical Region Laterality Modality Upper Extremities, Shoulder Right Comp uted Radiography 12/26/2020 12:4 3 PM CDT Impressions 12/26/2020 12:43 PM CDT Reverse etkc-rgj-jfkizh right total shoulder arthroplasty in near-anatomic position. Electronically signed by: Td Dooley M.D. Narrative 12/26/2020 12:43 PM CDT EXAMINATION: Right shoulder minimum 2 views HISTORY: Right shoulder osteoarthritis FINDINGS: 4 views of the right shoulder were performed with comparison made to 11/14/2020. There is a reverse nsgh-req-lksyju right total shoulder arthroplasty in near-anatomic position. There is no periprosthetic lucency or periprosthetic fracture. Distal clavicular excision is redemonstrated. Aortic atherosclerosis is noted. Procedure Note Td Dooley MD PhD - 12/26/2020 EXAMINATION: Right shoulder minimum 2 views HISTORY: Right shoulder osteoarthritis FINDINGS: 4 views of the right shoulder were performed with comparison made to 11/14/2020. There is a reverse ipij-yoi-xcihya right total shoulder arthroplasty in near-anatomic position. There is no periprosthetic lucency or periprosthetic fracture. Distal clavicular excision is redemonstrated. Aortic atherosclerosis is noted. IMPRESSION: Reverse apnl-ggx-mqfwop right total shoulder arthroplasty in near-anatomic position. Electronically signed by: Td Dooley M.D. Salomón Edmondson MD IMG XR PROCEDURES Final Re sult documented in this encounter Visit Diagnoses Diagnosis Status post reverse arthroplasty of right shoulder documented in this encounter Care Teams Manager Manufacturing Relationship Specialty Start Date End Date Eldon Koehler MD [address] [place] [phone] PCP - General Internal Medicine 08/04/20 documented as of this encounter
--- OUTSIDE RECORDS SUMMARY | 2024-05-22 17:07 | XMS_ITS | Encounter Summary ---
Author Organization [facility] Facility Care Team Providers Care Volunteer Patient Representative Name Role Phone Unavailable Primary Care Provider Unavailabl e Encounter Details Date Type Department Care Team (Late st Contact Info) Description 10/06/2014 8:10 AM CDT - 10/06/2014 9:27 AM CDT Hospital Encounter [facility] Rad Berger, DO [address] [facility] [address] [place] [address] Degeneration of intervertebral disc; Procedure not carried out for other reasons; Sciatica; Other and unspecified hyperlipidemia; Asthma; Sleep apnea; Esophageal reflux; Myalgia and myositis; Other depressive disorder; Anxiety state; Arthropathy; Hypothyroidism; Obesity; Other chronic pain; Encounter for long-term (current) use of other medications; Arthrodesis status; Personal history of allergy to analgesic agent; History of allergy to other anti-infective agent Social History Tobacco Use Types Packs/Day Years Used Date Smoking Tobacco: Never Comments Unknown Sex and Gender Information Value Date Recorded Sex Assigned at Not on file Legal Sex Female 11:01 PM [employer] Gender Identity Female 01/31/2021 9:15 AM CDT [...] as of this encounter Visit Diagnoses Diagnosis Degeneration of intervertebral disc Degeneration of intervertebral disc, site unspecified Procedure not carried out for other reasons Sciatica Other and unspecified hyperlipidemia Asthma Unspecified asthma Sleep apnea Unspecified sleep apnea Esophageal reflux Myalgia and myositis Unspecified myalgia and myositis Other depressive disorder Anxiety state Anxiety state, unspecified Arthropathy Unspecified arthropathy, site unspecified Hypothyroidism Unspecified hypothyroidism Obesity Obesity, unspecified Other chronic pain Encounter for long-term (current) use of other medications Arthrodesis status Personal history of allergy to analgesic agent History of allergy to other anti-infective agent documented in this encounter
--- OUTSIDE RECORDS SUMMARY | 2024-05-22 17:07 | XMS_ITS | Encounter Summary ---
Author Organization 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 Gender Identity Female 01/31/2021 9:15 AM CDT Sexual Orientation Straight 08/21/2020 10 :14 AM CDT documented as of this encounter Last Filed Vital Signs Vital Sign Reading Time Taken Comments Blood Pressure 135/74 11/03/2020 11:55 AM CDT Pulse 84 11/03/2020 11:55 AM CDT Temperature 36.8 ??C (98.3 ??F) 11/03/2020 11:55 AM C DT Respiratory Rate 16 11/03/2020 11:55 AM CDT Oxygen Saturation 100% 11/03/2020 11:55 AM CDT Inhaled Oxygen Concentration - - Weight - - Height - - Body Mass Index - - documented in this encounter Discharge Diagnoses Diagnosis Primary osteoarthritis, right shoulder - PRIMARY OSTEOARTHRITIS, RIGHT SHOULDER Unspecified rotator cuff tear or rupture of right shoulder, not specified as traumatic - UNSPECIFIED ROTATOR CUFF TEAR OR RUPTURE OF RIGHT SHOULDER, NOT SPECIFIED TRAUMATIC Unspecified asthma, uncomplicated - UNSPECIFIED ASTHMA, UNCOMPLICATED Obstructive sleep apnea (adult) (pediatric) - OBSTRUCTIVE SLEEP APNEA (ADULT) (PEDIATRIC) Gastro-esophageal reflux disease without esophagitis - GASTRO-ESOPHAGEAL REFLUX DISEASE WITHOUT ESOPHAGITIS Fibromyalgia - FIBROMYALGIA Unspecified myalgia and myositis Hypothyroidism, unspecified - HYPOTHYROIDISM, UNSPECIFIED Morbid (severe) obesity due to excess calories (HCC) - MORBID (SEVERE) OBESITY DUE TO EXCESS CALORIES Other terminologist (current) drug therapy - OTHER CORRECTION (CURRENT) DRUG THERAPY Allergy status to other antibiotic agents - ALLERGY STATUS TO OTHER ANTIBIOTIC AGENTS Allergy status to narcotic agent - ALLERGY STATUS TO NARCOTIC AGENT Allergy status to analgesic agent - ALLERGY STATUS TO ANALGESIC AGENT documented in this encounter Discharge Summaries * Harriet Reilly NP - 11/03/2020 7:37 AM CDT Inpatient Orthopedic Shoulder Discharge Summary Admitting Provider: Salomón Edmondson MD Discharge Provider: Salomón Edmondson MD Primary Care Physician at Discharge: Eldon Koehler MD [phone] Admission Date: 11/02/2020 Discharge Date: 11/03/2020 Primary Discharge Diagnosis: Rotator cuff tear arthropathy of right shoulder Secondary Discharge Diagnosis: Principal Problem: Rotator cuff tear arthropathy of right shoulder Active Problems: MURIEL on CPAP Resolved Problems: No resolved hospital problems. DETAILS OF HOSPITAL STAY Date of Admission: 11/02/2020 Date of Discharge: 11/03/2020 Procedure Performed: Right Reverse Shoulder Arthroplasty Chief Complaint: right shoulder pain History of Present Illness: The patient is a 70 y.o. year old female cared for by Dr. Slaomón Edmondson. The patient was seen by the attending surgeon in clinic and was noted to have admission diagnosis as above. Patient's condition was recalcitrant to a period of nonoperative treatment. The risks, benefits, alternatives, and complications of the procedure performed were discussed with the patient at length prior to surgery. Aftera lengthy discussion, the patient elected to proceed with a surgical intervention given the significant influence on their quality of life. Informed consent was obtained prior to surgery. Patient wascleared by CPAP. Physical Exam: On the day of discharge, the patient was afebrile with stable vital signs. Surgical dressing was clean, dry, and intact. Pain was adequately maintained on oral medications. Hospital Course: The patient was admitted on 11/02/2020 and underwent the aforementioned procedure, which the patienttolerated well. Postoperatively, the patient was admitted to the orthopedic floor for postoperativepain management and post- procedure monitoring. They received DVT prophylaxis in the form of active care pumps and PO aspirin. They received antibiotic prophylaxis for at least 24 hours. The patient worked with occupational therapy on right elbow, wrist, and hand range of motion as well as mobility and activities of daily living. Their pain was well controlled on oral narcotics which were provided. The patient also had a nerve catheter placed preoperatively by the Regional team and managed by the Acute PAIN team while on the Orthopedic Service. The patient was noted to be able to tolerate the oral intake of food and medication without any nausea or vomiting prior to discharge. The patient was able to void their bladder without any assistance. The patient was able to mobilize about the unit without the use of an assistive device. The patient remained stable throughout their hospitalization. The surgical drain that was placed at the conclusion of the procedure was removed prior to discharge. The patient returned home in stable condition. Active Issues Requiring Follow-up: None Test Results Pending at Discharge: None Operative Procedures Performed: Procedure(s): Procedure(s): Right reverse shoulder arthroplasty Other Procedures: None Pertinent Test Results: None Condition on Discharge: good Discharge Medications: Winifred Vallejo Home Medication Instructions RONAN:[id number] Printed on:11/03/20 5990 Medication Information acetaminophen 500 mg capsule Take 2 capsules (1,000 mg total) by mouth every 6 (six) hours albuterol HFA (PROVENTIL HFA,VENTOLIN HFA,PROAIR HFA) 90 mcg/actuation inhaler Inhale 2 puffs 4 (four) times a day as needed aspirin 81 mg enteric coated tablet Take 1 tablet (81 mg total) by mouth 2 (two) times a day for 14 days atorvastatin (LIPITOR) 20 mg tablet Take 20 mg by mouth every morning buPROPion SR (WELLBUTRIN SR) 150 mg 12 hr tablet Take 150 mg by mouth nightly calcium carbonate-vitamin D3 (CALTRATE 600 + D) 1500 mg (600 mg elemental) -400 units per tablet Take 1 tablet by mouth every morning cyclobenzaprine (FLEXERIL) 10 mg tablet Take 10 mg by mouth as needed for muscle spasms docusate sodium (COLACE) 100 mg capsule Take 1 capsule (100 mg total) by mouth 2 (two) times a day DULoxetine DR (CYMBALTA) 60 mg capsule Take 60 mg by mouth every morning levothyroxine (SYNTHROID) 150 mcg tablet 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 metoprolol XL (TOPROL-XL) 25 mg extended release tablet Take 25 mg by mouth every morning MULTIVITAMIN ORAL Take 1 Dose by mouth every morning omeprazole (PriLOSEC) 20 mg capsule Take 20 mg by mouth every morning oxyCODONE (ROXICODONE) 5 mg immediate release tablet Take 1 tablet (5 mg total) by mouth every 4 (four) hours as needed for pain pregabalin (LYRICA) 50 mg capsule Take 50 mg by mouth 2 (two) times a day rOPINIRole (REQUIP) 0.5 mg tablet Take 0.5 mg by mouth nightly rOPINIRole (REQUIP) 2 mg tablet Take 2 mg by mouth nightly Cosigned by Salomón Edmondson MD at 11/04/2020 12:01 PM CDT documented in this encounter Discharge Instructions * Discharge Instructions* Bogdan Haas MD - 11/02/2020 1:51 PM CDT Reverse Total Shoulder Arthroplasty Postoperative Instructions Call Your Doctor If: Call your surgeon???s office at the number listed in the follow up section if: ??? You have a fever of 101??F or 38.5??C or greater ??? You have drainage from your wound ??? You have swelling and/or increase redness ??? You have increased pain or numbness ??? You have a change in bowel or bladder function ??? You have nausea/vomiting Call 911 or go to the nearest emergency room if shortness of breath or chest pain. Diet ??? Resume previous home diet. Activity ??? Right Upper Extremity/Arm- do not put weight on this arm or use it to lift or carry ??? Wear your sling with abduction pillow as instructed. ??? Keep affected extremity elevated. ??? Use your Polar Ice Care machine or place ice on affected site(s) as instructed. ??? Remove arm from sling 3-4 times a day to perform the exercises for your arm as instructed. ??? Follow the exercise instruction packet provided by Occupational Therapy. ??? Place a pillow behind the elbow when resting either reclined or flat as this generally helps with shoulder pain. ??? You need to be up walking around at least 6-8 times a day for at least 5-10 minutes at a time every day. Ask for assistance if it is needed. Care Instructions ??? Keep incision site clean and dry. ??? Do not use lotion, cream, or antibiotic ointment on your wound. ??? Do not soak wound(s) or sit in hot tub or pool until cleared by your doctor. ??? Remove white fluffy dressing Tuesday6/29 and you may shower at that time. and Do NOT remove thepaper strips called steri-strips placed over your incision. Special Instructions ??? Continue home medications as prescribed. ??? Occupational Therapy--Continue the exercises your therapist gave you. ??? Do your incentive spirometry 10 times every hour while awake for one week. ??? You should not smoke or use nicotine based e-cigarettes or other nicotine based products. Smoking decreases blood flow, slows the healing process, and increases your risk of infection. ??? After shoulder surgery, there is often a significant amount of bruising. This is related to minor internal bleeding and is normal. Since your shoulder is up high, gravity may pull this bruising down to not only your arm, but the bruising could also fall down to your forearm, hand, chest, and/orside. It may take several weeks for all the bruising to resolve. ??? If you are discharged home with a peripheral nerve catheter, please follow nerve catheter care and removal instructions provided by the PAIN Team. Call [phone] and ask for the PAIN Team for questions or concerns regarding your nerve catheter. ??? MAY resume home medication of 81mg Aspirin daily AFTER you are finished with the prescription for 81mg Aspirin twice a day for 2 weeks. Medications ??? Do not drive while taking narcotic pain medications (examples: Percocet, Oxycodone, Hydrocodone, [place]). ??? Percocet and [place] contain acetaminophen/Tylenol. Do not exceed 4 grams of acetaminophen/Tylenol in a 24 hour period. ??? You are being sent with a narcotic prescription for oxycodone. Take 1-2 tablets every 4-6 hoursas needed for moderate to severe pain. After the first couple days, you should begin to wean yourself off the narcotic medication. ??? You are being sent with a prescription for Tylenol (acetaminophen). You can take this in addition to the narcotic prescription you were given. Start with the Tylenol (acetaminophen) for your pain. If that is not enough then take the narcotic medication. Do NOT take Tylenol (acetaminophen) if you are taking [place] (hydrocodone/acetaminophen) or Percocet (oxycodone/acetaminophen) as these medications already contain Tylenol (acetaminophen) and you could overdose on Tylenol (acetaminophen). ??? Narcotic pain medications can be constipating and cause nausea, among other side effects. Please take stool softeners as instructed, and take the narcotic pain medication with food. If the stool softeners are not enough for the constipation, start taking an additional over the counter stool softener (i.e.- Colace, Dulcolax, Miralax, Milk of Magnesia). HOLD the stool softeners if you are having loose stools or diarrhea. ??? You are being sent with a prescription to try to prevent a blood clot: Take 81mg Aspirin twice a day for 2 weeks.. Follow Up ??? Dr. Salomón Edmondson will see you for your follow up appointment on 11/14 at 915 at the [facility] ([facility]), [address] [place] [address], [address] [address]. Please call to confirm your appointment.. ??? We prefer you call us directly rather than go to your local hospital or clinic. We will be happy to answer any questions or concerns you may have. During regular office hours, please call if you are being seen at the [facility] or [facility] offices or if you are being seen at the [facility] office. If it is after hours, weekends, or holidays, please call the Exchange number at , or toll free at . ??? 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 01/21/2020 metoprolol XL (TOPROL-XL) 25 mg extended release tabletIndication s:hypertension Take 25 mg by mouth every morning 07/04/2020 omeprazole (PriLOSEC) 20 mg capsule Take 20 mg by mouth every morning 11/28/2004 pregabalin (LYRICA) 50 mg capsuleIndicatio ns:Restless Legs Syndrome Take 50 mg by mouth 2 (two) times a day 07/04/2020 rOPINIRole (REQUIP) 0.5 mg tabletIndication s:Restless Legs Syndrome Take 0.5 mg by mouth nightly rOPINIRole (REQUIP) 2 mg tabletIndication s:Restless Legs Syndrome Take 2 mg by mouth nightly 06/15/2012 acetaminophen 500 mg capsuleIndicatio ns:Pain Take 2 [...] day for 14 days 28 tablet 11/03/2020 calcium carbonate-vitami n D3 (CALTRATE 600 + D) 1500 mg (600 mg elemental) -400 units per tablet Take 1 tablet by mouth every morning cyclobenzaprine (FLEXERIL) 10 mg tablet Take 10 mg by mouth as needed for muscle spasms 05/22/2020 docusate sodium (COLACE) 100 mg capsuleIndicatio ns:constipation Take 1 capsule (100 mg total) by mouth 2 (two) times a day 30 capsule 11/03/2020 MULTIVITAMIN ORAL Take 1 Dose by mouth every morning oxyCODONE (ROXICODONE) 5 mg immediate release tabletIndication s:Pain Take 1 tablet (5 mg total) by mouth every 4 (four) hours as needed for pain 40 tablet 11/03/2020 documented as of this encounter Ordered Prescriptions Prescription Sig Dispense Quantity Refills Last Filled Start Date End Date docusate sodium (COLACE) 100 mg capsuleIndications :constipation Take 1 capsule (100 mg total) by mouth 2 (two) times a day 30 capsule 11/03/2020 acetaminophen 500 mg capsuleIndications :Pain Take 2 capsules (1,000 mg total) by mouth every 6 (six) hours 90 tablet 11/03/2020 aspirin 81 mg enteric coated tabletIndications: Deep Vein Thrombosis Prevention Take 1 tablet (81 mg total) by mouth 2 (two) times a day for 14 days 28 tablet 11/03/2020 oxyCODONE (ROXICODONE) 5 mg immediate release tabletIndications: Pain Take 1 tablet (5 mg total) by mouth every 4 (four) hours as needed for pain 40 tablet 11/03/2020 documented in this encounter Discharge Disposition Disposition Code Departure Means Destination Discharge to home or self care documented in this encounter Progress Notes * Bogdan Haas MD - 11/03/2020 7:27 AM CDT Ortho Shoulder/Elbow Daily Progress Note Subjective This patient is status post R bio RSA on 11/02 Interval History: No acute events overnight. Doing well this morning. Pain controlled. Tolerating PO. No nausea or vomiting. Denies chest pain or shortness of breath. Voiding. Objective Vitals: 24hr Min/Max: Temp Min: 36.2 ??C (97.2 ??F) Max: 36.9 ??C (98.4 ??F) Pulse Min: 73 Max: 87 BP Min: 102/50 Max: 165/83 Resp Min: 10 Max: 36 SpO2 Min: 91 % Max: 100 % Most Recent : Vitals: 11/03/20 0710 BP: 130/64 Pulse: 83 Resp: 16 Temp: 36.2 ??C (97.2 ??F) SpO2: 94% I/O last 2 completed shifts: In: 2640 [P.O.:1040; I.V.:1600] Out: 1420 [Urine:1220; Drains:125; Blood:75] No intake/output data recorded. Closed/Suction/Open Drain 1 Right Shoulder Accordion (Active) Site Description Color appropriate for ethnicity 11/03/20499 Dressing Status New;Clean, dry, intact 11/03/20499 Drainage Appearance Bright red 11/02/202029 Status To [place] 11/03/20499 Securement Method Securement device 11/02/202029 Drain output (mL) 5 mL 11/03/20239 Net Output (mL) 5 mL 11/03/200 Surgical Site 11/02/20 Right Shoulder (Active) Site Assessment TRACY 11/02/202029 Brenda-wound Assessment TRACY 11/02/202029 Closure Unable to assess 11/02/202029 Drainage Amount None 11/02/202029 Drainage Description TRACY 11/02/202029 Drainage Odor No odor 11/02/202029 Dressing Status New;Clean, dry, intact 11/02/202029 Dressing ABD;Tape 11/02/20 1825 Physical Exam: Awake, alert, oriented No acute distress Breathing regular and unlabored Dressing clean and dry Pre-operative block partially resolved. Sensation intact to light touch. in the median, radial, ulnar, axillary nerves Radial pulse on affected limb palpable Distal neurovascular exam: NVI Lab/Radiology/Diagnostic Review: Laboratory review: Lab results in the last 12 hours: Recent Results (from the past 12 hour(s)) CBC with auto differential Collection Time: 11/03/20 2:51 AM Result Value Ref Range WBC 16.7 (H) 3.8 - 9.9 K/cumm Hgb 11.7 (L) 11.9 - 15.5 g/dL Hct 37.4 35.6 - 45.5 % Plt 300 150 - 400 K/cumm MPV 10.6 9.1 - 12.3 fL RBC 4.12 3.90 - 5.20 M/cumm MCV 90.8 81.3 - 96.4 fL MCH 28.4 27.1 - 33.3 pg MCHC 31.3 (L) 32.3 - 35.7 g/dL RDW CV 14.3 11.1 - 14.9 % RDW SD 47.8 35.7 - 48.1 fL NRBC abs 0.00 0.00 - 0.01 K/cumm Basic metabolic panel Collection Time: 11/03/20 2:51 AM Result Value Ref Range Sodium 136 135 - 145 mmol/L Potassium, pl 4.6 3.3 - 4.9 mmol/L Chloride 101 97 - 110 mmol/L CO2 29 22 - 32 mmol/L Anion gap 6 2 - 15 mmol/L BUN 16 8 - 25 mg/dL Creatinine 0.90 0.60 - 1.10 mg/dL Glucose 153 70 - 199 mg/dL Calcium 9.1 8.5 - 10.3 mg/dL Differential, auto Collection Time: 11/03/20 2:51 AM Result Value Ref Range Neutrophil abs 15.0 (H) 1.7 - 6.5 K/cumm Imm gran abs 0.1 0.0 - 0.1 K/cumm Lymphocyte abs 1.0 0.8 - 3.3 K/cumm Monocyte abs 0.7 0.2 - 0.8 K/cumm Eosinophil abs 0.0 0.0 - 0.5 K/cumm Basophil abs 0.0 0.0 - 0.1 K/cumm Neutrophil pct 89.5 % Imm gran pct 0.5 % Lymphocyte pct 5.7 % Monocyte pct 4.1 % Eosinophil pct 0.0 % Basophil pct 0.2 % eGFR Collection Time: 11/03/20 2:51 AM Result Value Ref Range GFR 66 mL/min/1.73 m2 Assessment/Plan - Non-weight bearing right upper extremity. Okay for elbow and wrist ROM - Out of bed and mobilize with occupational therapy - Pain: controlled on current regimen - DVT prophylaxis: Aspirin/Active Care Pumps - Additional needs: Remove drain prior to discharge. Pain team to provide nerve catheter teaching. - Discharge planning: home Bogdan Haas MD Orthopaedic Surgery Clinical Fellow Shoulder & Elbow Division [facility] [phone] * Bernadette Beauchamp [facility] - 11/02/2020 12:00 PM CDT Pre-Operative Cefazolin Dosing Cefazolin Indication Patient Weight Dose Surgical Prophylaxis, Preoperative <120 kg 2000 mg >/= 120 kg 3000 mg References: 2016 ASHP/IDSA/SIS/VOSS Guidelines for Antimicrobial Prophylaxis in Surgery [facility] Toolbook/Francescaata, last reviewed 04/21/18 Approved by ASP 05/21/18, Approved by [employer]T 06/18/18, Approved by [facility] 07/01/18 documented in this encounter H&P Notes * Salomón Edmondson MD - 11/02/2020 1:24 PM CDT I have reviewed the H&P, examined the patient, and endorse the findings as written. Plan of Care : Based on the above findings, I consider Winifred Vallejo to be an acceptable risk for : Procedure(s): Right reverse shoulder arthroplasty Source Note - Alison Barnett MD - 10/30/2020 11:27 AM CDT Images from the original note were not included. [facility] Preoperative Assessment and Planning Preoperative Evaluation Record Evaluation type/location: [facility] Planned procedure site: [facility] OR Date: 10/30/20 Anesthesia Evaluation Winifred Vallejo [...] Cardiovascular Pertinent negatives: hypertension ; CAD ; NM ; CABG ; valvular heart disease; valve [...] Plan for pre-procedure COVID19 testing: Telephone or Cli nical assessment performed. Patient is asymptomatic and not severely immunocompromised per the criteria in the [facility] Pre-Procedure COVID-19 Testing Update for Fully Vaccinated Patients. Patient states that they are fully vaccinated and provided the following vaccination information: Operations Advisor Lavante , Vaccination Date(s)07/07/20, 08/08/20. COVID Vaccination Record Card unable to be visually verified during assessment. Patient was instructed to bring their COVID Vaccination Record Card on the dayof surgery for verification of their vaccination status. [...] in place. Please call the CPAP attending ([phone]) with any questions. Preoperative evaluation performed by [...] ??? CHOLECYSTECTOMY 1997 ??? LAPAROSCOPIC GASTRIC BYPASS 2018 ??? REPLACEMENT TOTAL KNEE BILATERAL 2013, 2016 [...] mg enteric coated tablet 10/27/2020 -- -- Arely Russo MD atorvastatin (LIPITOR) 20 mg tablet [...] cyclobenzaprine (FLEXERIL) 10 mg tablet ??? DULoxetine (CYMBALTA) 60 mg capsule ??? levothyroxine (SYNTHROID) [...] Medication protocol when under care of a HANDSTITCHING MACHINE COLLAR FELLER Planned anesthesia: General, regional for postop pain [...] All questions answered. documented in this encounter Consult Notes * June Pickard OT - 11/03/2020 9:10 AM CDT [facility] Occupational Therapy Evaluation Patient Name: Winifred Vallejo Date of Service: 11/03/2020 Date of : 1950 Age: 70 y.o.female Room: [address] Admit Date: 11/02/2020 Attending Provider: Salomón Edmondson MD Primary Diagnosis: Rotator cuff tear arthropathy of right shoulder Subjective HPI: Winifred Vallejo is a 70 y.o. female POD 1 s/p right reverse total shoulder arthroplasty. Past Medical History: Diagnosis Date ??? Asthma ??? Fibromyalgia ??? GERD (gastroesophageal reflux disease) ??? Sleep apnea Past Surgical History: Procedure Laterality Date ??? CHOLECYSTECTOMY 1997 ??? LAPAROSCOPIC GASTRIC BYPASS 2017 ??? REPLACEMENT TOTAL KNEE BILATERAL 2013, 2016 ??? SHOULDER ARTHROPLASTY Right 2017 ??? SPINAL FUSION 2001, 1991 Precautions: Fall Risk and Reverse TSA Weightbearing Status: Non-weight bearing on right UE Occupational Therapy Goal: Return to prior level of funciton Patient Comment: I feel a lot more steady with the cane Prior Living Environment and Level of Function: Type of Home: 1 level home with basement Lives With: and Children and 3 grandchildren Stairs to Enter: 3 steps to enter from garage, wide enough to use walker Railings: yes Stairs Inside: 8-10 to basement; laundry on first level Railings: yes Receives Help From: and Children Bathroom Shower/Tub: Walk-in shower with threshold Bathroom Toilet: Raised height Bathroom Equipment: grab bars in shower/tub, built-in shower seat, hand held shower and grab bars around toilet Home Mobility Equipment: wheeled walker, single point cane and small-base quad cane; does not use device at baseline 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 Level of Peck: Independent with ADLs, Independent with transfers and Independent with ambulation Driving: Yes Vocational/Occupation: Retired Fall within the last 6 months: Yes: 5; always needs help getting up Subjective Vitals: Comments: Vitals stable throughout session, no signs or symptoms of adverse reactions Pain Assessment: Pre-therapy pain: 0 /10 Post-therapy pain: 0 /10 Comments:none Cognition: Overall Cognitive Status: At Baseline Arousal: Alert Orientation: Oriented x4 (person, place, time, and situation) Following Commands: Follows all commands and directions without difficulty Safety Judgement: Good awareness of safety precautions Problem Solving: Able to problem solve independently Behavior: Easy to engage Hand Dominance: right Sensation: within functional limits RUE Assessment: Not tested, due to precautions LUE Assessment: Within functional limits Activities of Daily Living Grooming: Patient completed grooming standing at sink with close supervision for safety. Upper Body Dressing: Patient completed upper body dressing sitting in bedside chair with maximal assistance for safety, increased time to complete and fasteners, patient participated in sling management. Lower Body Dressing: Patient completed lower body dressing sitting in bedside chair with distant supervision for safety,patient participated in donning/doffing right sock and donning/doffing left sock . Patient verbalized that or adult daughter can assist as needed with lower body dressing tasks. Toileting: Patient completed toileting seated on toilet in bathroom with distant supervision for safety. Feeding: Not tested; hand to mouth intact. Functional Mobility Bed Mobility: Patient sitting in bedside chair upon therapist arrival. Functional Transfers: Patient performed sit to and from stand with close supervision. Patient required assistance for safety. Toilet Transfers: Patient performed standard toilet transfer using no device with close supervision.Patient required assistance for safety. Shower Transfers: Patient performed simulated shower transfer using no device to standing with close supervision. Patient required assistance for safety. Stairs: Patient negotiates 2 stairs with left sided hand railing and close supervision. Patient required assist for safety Functional Ambulation: Patient ambulates x 150 feet with single point cane and close supervision to simulate home ambulation. Patient required assistance for safety. *Gait belt used for all OOB mobility* Treatment/Exercises: Elbow flexion/extension 1x10 Forearm pronation/supination 1x10 Wrist flexion/extension 1x10 Gross finger flexion/extension 1x10 Comments: Patient verbalized and demonstrated understanding of HEP using L UE due to limited mobility/numbness of surgical UE. Assessment Occupational Therapy Problem List: Patient has impairments including: ADLs, functional mobility andbalance. Patient would benefit from occupational therapy intervention to address these impairments and functional limitations. Brief review of medical and therapy records pertaining to current functional performance was obtained for this patient. Low complexity decision making was necessary for analysis of occupational profile, analysis of data, and consideration of treatment options. Minimal to no modification and assistance was needed for patient to complete all evaluation components. Prognosis:Good Response to today's treatment: Good Patient tolerated session well with good awareness of safety and precautions. Patient functioning at supervision level of assist for all functional mobility and ADL tasks with exception of upper bodydressing. Patient verbalized 5+ falls in past 6 months. Patient verbalized increased stability and balance with use of single point cane this date. Patient encouraged to use cane at home for all mobility tasks. Patient has 02/12 support and assist from and adult daughter. Patient would continue to benefit from occupational therapy during hospital stay only to maximize independence for all ADL/functional mobility tasks. Completed patient handoff and notified RN of patient's location and functional status upon completion of session. Education: Patient and spouse has been educated on the role of OT, safety, precautions, ADL re-training and home exercise program. Education completed via explanation, demonstration and handout . Patient and spouse verbalized understanding and demonstrated understanding. Handouts Issued: OT reverse TSA packet Barriers to discharge: None Care Plan Goals established: 11/03/20 1. The patient will perform upper body dressing with moderate assistance from spouse in order to safely return home by 11/08/2020. a. Comments: Initiated 2. The patient will perform lower body dressing with distant supervision in order to return home by11/08/2020. a. Comments: initiated and MET 3. The patient will perform toileting with distant supervision in order to safely return home by 11/08/2020. a. Comments: initiated and MET 4. The patient will perform toilet transfer with distant supervision in order to safely transfer home by 11/08/2020. a. Comments: initiated 5. The patient will perform walk-in shower transfer with distant supervision in order to safely return home by 11/08/2020. a. Comments: inititated 6. The patient will ascend/descend 2 stairs with close supervision in order to safely return home by 11/08/2020. a. Comments: initiated and MET 7. The patient will perform HEP with distant supervision per protocol in order to safely return home by 11/08/2020. a. Comments: initiated 8. The patient will recall Reverse TSA precautions with no cueing in order to safely return home by11/08/2020. a. Comments: initiated and MET Plan Treatment frequency: 5-7x/wk Treatment interventions: ADL/Instrumental Activities of Daily Living , Functional mobility trainingand Parent/caregiver training and education Recommended equipment to safely discharge: shower chair, grab bars and single point cane Comments: Patient verbalizes having proper home setup (grab bars, shower bench, cane) Referrals Recommended: None. Patient okay to discharge home: Yes Discharge Recommendation: Home with family, Home with intermittent assist, Home with 24 hour supervision June Pickard OT documented in this encounter Miscellaneous Notes * Plan of Care - Laura Martínez RRT - 11/03/2020 12:45 PM CDT Patient was ordered on NPPV for respiratory distress. Patient is tolerating well. Plan - Continue to monitor patient and titrate oxygen as tolerated * Plan of Care - Lore Maher RN - 11/03/2020 9:24 AM CDT Goals: Clinical Goals for the Shift: pain </=4, IS 10x/hr, ankle pumps, work with OT, remove drain , tolerate diet, adeqaute I&O, d/c home Summary: Problem: Health Behavior: Goal: Understanding of discharge needs will improve Outcome: Progressing Problem: Lack of Knowledge: Goal: Knowledge of disease or condition will improve Outcome: Progressing Goal: Knowledge of the prescribed therapeutic regimen will improve Outcome: Progressing Problem: Respiratory: Goal: Ability to maintain adequate ventilation will improve Outcome: Progressing Goal: Identification of resources available to assist in meeting health care needs will improve Outcome: Progressing Problem: Coping: Goal: Level of anxiety will decrease Outcome: Progressing Goal: Ability to identify and develop effective coping behavior will improve Outcome: Progressing Problem: Activity: Goal: Ability to avoid complications of mobility impairment will improve Outcome: Progressing Problem: Lack of Knowledge: Goal: Understanding of discharge needs will improve Outcome: Progressing Problem: Physical Regulation: Goal: Postoperative complications will be avoided or minimized Outcome: Progressing Problem: Safety: Goal: Will remain free from falls Outcome: Progressing Problem: Sensory: Goal: Pain level will decrease Outcome: Progressing Problem: Skin Integrity: Goal: Will remain free from infection Outcome: Progressing * Plan of Care - Carolyne Linares RN - 11/03/2020 1:22 AM CDT Problem: Health Behavior: Goal: Understanding of discharge needs will improve Outcome: Progressing Problem: Lack of Knowledge: Goal: Knowledge of disease or condition will improve Outcome: Progressing Goal: Knowledge of the prescribed therapeutic regimen will improve Outcome: Progressing Problem: Respiratory: Goal: Ability to maintain adequate ventilation will improve Outcome: Progressing Goal: Identification of resources available to assist in meeting health care needs will improve Outcome: Progressing Problem: Coping: Goal: Level of anxiety will decrease Outcome: Progressing Goal: Ability to identify and develop effective coping behavior will improve Outcome: Progressing Problem: Activity: Goal: Ability to avoid complications of mobility impairment will improve Outcome: Progressing Problem: Lack of Knowledge: Goal: Understanding of discharge needs will improve Outcome: Progressing Problem: Physical Regulation: Goal: Postoperative complications will be avoided or minimized Outcome: Progressing Problem: Safety: Goal: Will remain free from falls Outcome: Progressing Problem: Sensory: Goal: Pain level will decrease Outcome: Progressing Problem: Skin Integrity: Goal: Will remain free from infection Outcome: Progressing Goals: Clinical Goals for the Shift: pain below 4 with pain meds and cold therapy,able to us e is 10x /hr ankle pumps Summary * Plan of Care - Christa Lopez RRT - 11/03/2020 12:29 AM CDT Problem: Respiratory: Goal: Ability to maintain adequate ventilation will improve Outcome: Progressing Pt resting a chair at this time, home cpap unit at bedside . Pt will continue to maintain current tx mode. * Op Note - Salomón Edmondson MD - 11/02/2020 3:01 PM CDT Operative Procedure ATTENDING: Salomón Edmondson MD FIRST BORING MACHINE FEEDER: Bogdan Haas MD ANESTHESIA: General and Regional PREOPERATIVE DIAGNOSIS(ES): Right shoulder glenohumeral joint osteoarthritis and rotator cuff tear. POSTOPERATIVE DIAGNOSIS(ES): Same ESTIMATED BLOOD LOSS: 300 cc. SPECIMENS: None. NAME OF OPERATION: Right Reverse total shoulder arthroplasty INDICATIONS: The patient is a 70 y.o. y/o female with a diagnosis of Right shoulder glenohumeral joint osteoarthritis and rotator cuff tear. The patient has been indicated for reverse total shoulder arthroplasty. The risks and benefits of the procedure were discussed with the patient including but not limited to infection, shoulder instability/dislocation, loosening of the implant, persistent pain, neurovascular injury, fracture of the bone and the risks of anesthesia. Informed consent was obtained. DESCRIPTION OF PROCEDURE: The patient was identified in the preoperative holding area. They identified the shoulder as the operative site and the operative shoulder was marked in standard fashion. After placement of an interscalene block in preoperative holding, the patient was taken to the operating room where the patient was again identified along with the surgical site and procedure as part ofthe preoperative timeout process. General endotracheal anesthesia was induced. Intravenous antibiotics were administered. The patient was then placed into the beach chair position. Pneumatic compression devices were also placed on the legs. The cervical spine was held neutral and all pressure points were well-padded. The upper extremity was then prepped and draped in the normal sterile fashion. Full-thickness skin and subcutaneous tissue flaps were created down to the deltopectoral muscular interval. The cephalicvein was identified and protected. The deltoid was then bluntly taken laterally and pectoralis major medial inferiorly releasing the upper border of the pectoralis tendon. The cephalic vein was takenlaterally with the deltoid. The subacromial plane were swept and released. The clavipectoral fasciawas opened and the subconjoined plane was finger swept identifying the axillary nerve. The anteriorhumeral circumflex vessels were ligated and the subscapularis tendon was tagged. The subscapularis appeared healthy. The biceps sheath was opened and the rotator interval was released to the glenoid.The biceps tendon was tenotomized proximally and excised distally. A lesser tuberosity osteotomy was then performed with an oscillating saw while protecting the glenoid and the axillary nerve. A small portion of the humeral head was removed from the LTO fragment. The arm was adducted and externallyrotated, continually releasing the capsule to about the 6:00 position while protecting the axillarynerve. This allowed dislocation of the humeral head anteriorly. Any remaining anterior superior cuff or scar tissue was removed to allow dislocation and exposure of the humeral head. The majority of the posterior cuff remained intact, there was a tear in the supraspinatus tendon.. The guidepin for the BIORSA was placed into the center of the humeral head. The BIORSA reamer was used to harvest a cylindrical autologous graft. The graft thickness was 10. A standard head cut was performed freehand matching the angle of inclination of the Perform reverse shoulder arthroplasty system at approximately 30 of retroversion. Remaining anatomic neck osteophytes were removed. A wet Ray-Lenka was placed around the deltoid. Posterior glenoid retractors were positioned. The subscapularis tendon was released circumferentially. The inferior capsule was cut while protecting the axillary nerve. The inferior capsule and lateral long head of triceps was released off the inferior glenoid rim. All remaining soft tissue were sharply removed from the glenoid. Referencing the inferior glenoid rim, we marked the desired position for the baseplate. This was marked with a cautery device. Appropriate vault depth at this position and version angle was confirmed by drilling with a 2 mmdrill with a version correction of 0 degrees and an inferior inclination correction of 20- 25 degrees relative to the [place] glenoid face. A guide pin was placed at this angle. The glenoid face was reamed to a flat surface exposing some inferior trabecular bone. Reaming was performed until there [id number]% baseplate support. Remaining peripheral soft tissue was cleared and the wound was irrigated. The central tunnel for the Rev2 baseplate was drilled. We fashioned the BIORSA graft to match the glenoid mary defect which was deepest in the superior quadrant. The graft was circular shaped, roughly 80% of a complete [place]. The 29 mm Rev2 baseplate with a 25 mm post was impacted into position and fully seated. Anterior and posterior compression screws were placed. Superior and inferior peripheral locking screws were then placed in a standard bicortical fashion into the coracoid base superiorly and inferiorly towards the inferior vault and scapular body. Excellent fixation was obtained. A36 mm glenosphere was then carefully applied and fastened into place engaging the Hanks taper. Fullseating was noted. The set screw was fully tightened. The arm was dislocated anteriorly and the humerus was prepared according to [facility] instrumentation. We chose the size 2 humeral implant. A guide pin was placed through the cut surfaceout the lateral cortex. The size 2 reamer was fully seated and then the canal finding nate was placed within the IM canal. The size 2 broach was placed at 35 degrees of retroversion. The humerus was irrigated and dried. The final humeral Perform stem, size 2+, was impacted into place at 35 degrees of retroversion. Trial polyethylene inserts were trialed in sequential fashion until optimal stability was obtained using the standard intraoperative trialing parameters.Stability was optimized with a +0mm 10 degree angled polyethylene trial. The final polyethylene was fully seated. The humerus was then reduced and appropriate stability and clearance from bony impingement was verified. The lesser tuberosity was reduced to its bony bed and then secured into place by tying previously placed 4 No. 5Fiberwire sutures placed into the anterior aspect of the greater tuberosity. Secure fixation was noted. Hemostasis was obtained and the wound thoroughly irrigated. 500 mg of Vancomycin powder was sprinkled into the deep and superficial wound. A deep Hemovac drain was placed and then the wound was closed in a layered fashion with 2-0 and 3-0 Monocryl followed by placement of a sterile dressing. A sling was placed and anesthesia reversed. Patient was taken to the recovery room, having tolerated the procedure well and having sustained no intraoperative complications. CONDITION ON DISCHARGE FROM OPERATING ROOM: stable Attestation: Please note that I was present for all critical portions of the case including the deep approach, mary preparation, trial component placement and final placement of the glenoid and humeral components as well as deep closure. I was immediately available for all non-critical portions including superficial closure. Please note that the fellow, Dr. Haas, was present and necessary the entire procedure, from opening to closure, as a procurement assistant. The assistance of the engineer second assistant surgeon was required as total shoulder replacement is a difficult procedure, requiring at least two experienced surgeons. One is necessary for expert retraction as well as manipulation of specific total shoulder instrumentation, while the primary surgeon performed the procedure and no qualified senior resident was otherwise available. I have requested that regional anesthesia for pain management be performed by a qualified health care provider from the Anesthesia Department for postoperative pain management. Based upon the degree of postoperative pain that is expected from this procedure, the skills and experience of a qualifiedhealth care provide from the Anesthesia Department are required. This expertise in pain management w ill improve pain relief and aid in decreasing analgesic side effects. Salomón Edmondson MD Professor Chief, Shoulder and Elbow Service [facility] documented in this encounter Plan of Treatment Not on file documented as of this encounter Procedures Procedure Name Priority Date/Time Associated Diagnosis Comments EGFR Routine 11/03/2020 2:51 AM CDT DIFFERENTIAL AUTO Routine 11/03/2020 2:5 1 AM CDT CBC WITH AUTO DIFFERENTIAL Routine 11/03/2020 2:51 AM CDT BASIC METABOLIC PANEL Routine 11/03/2020 2:51 AM CDT XR SHOULDER RIGHT 2 OR MORE VIEWS IP Routine 11/02/2020 5:20 PM CDT ARTHROPLASTY SHOULDER - REVERSE TOTAL 11/02/2020 2:28 PM CDT Rotator cuff tear arthropathy of right shoulder B ABO / RH CONFIRMATION TESTING Routine 11/02/2020 12:25 PM CDT documented in this encounter Results * eGFR (11/03/2020 2:51 AM CDT) eGFR 66 mL/min/1.7 3 m2 [facility] Comment: Interpretive [...] was last reviewed 2020 Blood specimen (specimen) 11/03/2020 2:51 AM CDT 11/03/2020 3:13 AM CDT us Salomón Edmondson MD LAB BLOOD ORDERABLES Final Result [facility] [id number] [facility]. Department [place] [address] * (ABNORMAL) Differential, auto (11/03/2020 2:51 AM CDT) Neutrophil abs 15.0(H) 1.7 - 6.5 K/cumm C[facility] W Imm gran abs 0.1 0.0 - 0.1 K/cumm [facility] Lymphocyte abs 1.0 0.8 - 3.3 K/cumm [facility] Monocyte abs 0.7 0.2 - 0.8 K/cumm [facility] Eosinophil abs 0.0 0.0 - 0.5 K/cumm [facility] Basophil abs 0.0 0.0 - 0.1 K/cumm CERNER W Neutrophil pct 89.5 % [facility] Comment: Interpretive Data Percent cell count reference ranges are not reported, since discordance with absolute values may lead to misinterpretation of CBC data. Current Interpretive Data was last revised on 2017. Imm gran pct 0.5 % [facility] Comment: Interpretive Data Percent cell count reference ranges are not reported, since discordance with absolute values may lead to misinterpretation of CBC data. Current Interpretive Data was last revised on 2017. Lymphocyte pct 5.7 % [facility] Comment: Interpretive Data Percent cell count reference ranges are not reported, since discordance with absolute values may lead to misinterpretation of CBC data. Current Interpretive Data was last revised on 2017. Monocyte pct 4.1 % [facility] Comment: Interpretive Data Percent cell count reference ranges are not reported, since discordance with absolute values may lead to misinterpretation of CBC data. Current Interpretive Data was last revised on 2017. Eosinophil pct 0.0 % [facility] Comment: Interpretive Data Percent cell count reference ranges are not reported, since discordance with absolute values may lead to misinterpretation of CBC data. Current Interpretive Data was last revised on 2017. Basophil pct 0.2 % [facility] Comment: Interpretive Data Percent cell count reference ranges are not reported, since discordance with absolute values may lead to misinterpretation of CBC data. Current Interpretive Data was last revised on 2017. Blood specimen (specimen) 11/03/2020 2:51 AM CDT 11/03/2020 3:13 AM CDT Salomón Edmondson MD LAB BLOOD ORDERABLES Final Result [facility] [id number] [facility] Department [place] [address] * Basic metabolic panel (11/03/2020 2:51 AM CDT) Sodium 136 135 - 145 mmol/L [facility] Potassium, pl 4.6 3.3 - 4.9 mmol/L [facility] Chloride 101 97 - 110 mmol/L [facility] CO2 29 22 - 32 mmol/L [facility] Anion gap 6 2 - 15 mmol/L [facility] BUN 16 8 - 25 mg/dL [facility] Creatinine 0.90 0.60 - 1.10 mg/dL [facility] Glucose 153 70 - 199 mg/dL [facility] Comment: Interpretive Data Fasting glucose >/= [...] interpretive data was last revised 2017. Calcium 9.1 8.5 - 10.3 mg/dL [facility] Blood specimen (specimen) 11/03/2020 2:51 AM CDT 11/03/2020 3:13 AM CDT Narrative [facility] - 11/03/2020 4:26 AM CDT Daily for three days. us Salomón Edmondson MD LAB BLOOD ORDERABLES Final Result [facility] [address] [facility]. [place] [address] * (ABNORMAL) CBC with auto differential (11/03/2020 2:51 AM CDT) WBC 16.7(H) 3.8 - 9.9 K/cumm [facility] Hgb 11.7(L) 11.9 - 15.5 g/dL [facility] Hct 37.4 35.6 - 45.5 % [facility] Plt 300 150 - 400 K/cumm [facility] MPV 10.6 9.1 - 12.3 fL [facility] RBC 4.12 3.90 - 5.20 M/cumm [facility] MCV 90.8 81.3 - 96.4 fL [facility] MCH 28.4 27.1 - 33.3 pg [facility] MCHC 31.3(L) 32.3 - 35.7 g/dL [facility] RDW CV 14.3 11.1 - 14.9 % [facility] RDW SD 47.8 35.7 - 48.1 fL [facility] NRBC abs 0.00 0.00 - 0.01 K/cumm [facility] Blood specimen (specimen) 11/03/2020 2:51 AM CDT 11/03/2020 3:13 AM CDT Narrative [facility] - 11/03/2020 3:15 AM CDT Daily for three days. us Salomón Edmondson MD LAB BLOOD ORDERABLES Final Result [facility] [address] [facility]. [place] [place] [address] * XR Shoulder Right 2+ View (11/02/2020 5:20 PM CDT) Anatomical Region Laterality Modality Upper Extremities, Shoulder Right Comp uted Radiography 11/03/2020 6:17 AM CDT Impressions 11/03/2020 6:17 AM CDT New reverse [id number] total right glenohumeral arthroplasty in expected position. Electronically signed by: Phil Davis M.D. Narrative 11/03/2020 6:17 AM CDT XR SHOULDER RIGHT 2 OR MORE VIEWS HISTORY: ??Shoulder arthroplasty. FINDINGS: ??2 views of the right shoulder are obtained and compared with 08/22/2020. There is interval reverse [id number] total right glenohumeral arthroplasty. Orthopedic components are [...] compared with 08/22/2020. There is interval reverse [id number] total right glenohumeral arthroplasty. Orthopedic components are in expected position. There is no periprosthetic fracture. Overlying soft tissue gas and surgical drain is present. There is unchanged prior distal right clavicular resection. IMPRESSION: New reverse [id number] total right glenohumeral arthroplasty in expected position. Electronically signed by: Phil Davis M.D. Salomón Edmondson MD IMG XR PROCEDURES Final Re sult * ABO / Rh Confirmation Testing (11/02/2020 12:25 PM CDT) ABO/Rh Confirmation O Positive [facility] Blood specimen (specimen) 11/02/2020 12:25 PM CDT 11/02/2020 12:34 PM CDT Salomón Edmondson MD LAB BLOOD ORDERABLES Final Result Performing Organization Address City/State/[facility] Co de Phone Number JESSICA [facility] [address] [facility] Department [place] [address] documented in this encounter Visit Diagnoses Diagnosis Rotator cuff tear arthropathy of right shoulder- Primary MURIEL on CPAP documented in this encounter Admitting Diagnoses Diagnosis Rotator cuff tear arthropathy of right shoulder documented in this encounter Administered Medications Inactive Administered Medications - up to 3 most recent administrations Medication Order MAR Action Action Date Dose Rate Site acetaminophen (TYLENOL) tablet 1,000 mg 1,000 mg, oral, Every 6 hours scheduled, First dose on Suly 11/02/20 at 2100, Indications: PainIndications:Pain Given 11/03/2020 8:42 AM CDT 1,000 mg Given 11/03/2020 2:54 AM CDT 1,000 mg Given 11/02/2020 9:14 PM CDT 1,000 mg aspirin enteric coated tablet 81 mg 81 mg, oral, 2 times daily, First dose on Suly 11/02/20 at 2100, Do not crush, chew, cut, dissolve, open or otherwise manipulate tablet/capsule., Indications: Deep Vein Thrombosis PreventionIndications:Deep Vein Thrombosis Prevention Given 11/03/2020 8:42 AM CDT 81 mg Given 11/02/2020 9:14 PM CDT 81 mg bupivacaine preservative free 1,000 mg/500 mL (0.2%) infusion (premix) Continuous Rate: 6 mL/hr, Patient Bolus Dose: 4 mL, Lockout Interval: 30 Minutes, Catheter Site: Interscalene, Catheter Side: Right, perineural, Continuous, Starting on Suly 11/02/20 at 1745, Until Fri11/03/20 at 1907, 500 mL, Routine New Bag 11/02/2020 5:18 PM CDT 1,000 m g buPROPion SR (WELLBUTRIN SR) 12 hour tablet 150 mg 150 mg, oral, Nightly, First dose on Suly 11/02/20 at 2100, Do not crush, chew, cut, dissolve, open or otherwise manipulate tablet/capsule. Given 11/02/2020 9:14 PM CDT 150 mg docusate sodium (COLACE) capsule 100 mg 100 mg, oral, 2 times daily, First dose on Fri11/02/20 at 2100, Hold for diarrhea, Indications: constipationIndications:constipation Given 11/03/2020 8:41 AM CDT 100 mg Given 11/02/2020 9:13 PM CDT [address] (CYMBALTA) extended release capsule 60 mg 60 mg, oral, Every morning, First dose on Fri11/03/20 at 0900, Capsule may be opened and contents mixed with applesauce or apple juice ONLY. Do not crush, chew, cut, dissolve, open or otherwise manipulate tablet/capsule. Given 11/03/2020 8:42 AM CDT 60 mg Lactated Ringer's (LR) infusion 30 mL/hr, [...] 2:08 PM CDT 30 mL/hr 30 mL/hr Lactated Ringer's (LR) infusion 30 mL/hr, intravenous, Continuous, Starting on Fri11/02/20 at 1230, Pre-Op New Bag 11/02/2020 12:30 PM CDT 30 mL/hr 30 mL/ hr levothyroxine (SYNTHROID) tablet 150 mcg 150 mcg, oral, Daily (early AM), First dose on Fri11/03/20 at 0600, Administer on an empty stomach, preferably 30 minutes before breakfast. Take 4 hours apart from antacids, iron and calcium products. Given 11/03/2020 6:49 AM CDT 150 mcg metoprolol XL (TOPROL-XL) extended release tablet 25 mg 25 mg, oral, Every morning, First dose on Fri11/03/20 at 0900, Tablets that are scored may be split, but do not crush, chew, dissolve, open or otherwise manipulate tablet/capsule., Indications: hypertensionIndications:hypertens ion Given 11/03/2020 8:42 AM CDT 25 mg oxyCODONE (ROXICODONE) tablet 5 mg 5 mg, oral, Every 4 hours PRN, 1st line for pain, Starting on Fri11/02/20 at 1821, May repeat in 1 hour if pain is uncontrolled or increasing. Max 2 doses within 1 dosing interval., Indications: PainIndications:Pain Given 11/03/2020 11:44 AM CDT 5 mg pregabalin (LYRICA) capsule 50 mg 50 mg, oral, 2 times daily, First dose on Fri11/02/20 at 2100, Indications: Restless Legs SyndromeIndications:Restless Legs Syndrome Given 11/03/2020 8:42 AM CDT 50 mg Given 11/02/2020 9:15 PM CDT 50 mg rOPINIRole (REQUIP) tablet 0.5 mg 0.5 mg, oral, Nightly, First dose on Fri11/02/20 at 2100, Indications: Restless Legs SyndromeIndications:Restless Legs Syndrome Given 11/02/2020 9:14 PM CDT 0 .5 mg rOPINIRole (REQUIP) tablet 2 mg 2 mg, oral, Nightly, First dose on Fri11/02/20 at 2100, Indications: Restless Legs SyndromeIndications:Restless Legs Syndrome Given 11/02/2020 9:16 PM CDT 2 mg sodium chloride 0.9% flush 0.5-20 mL 0.5-20 mL, intra-catheter, Every 8 hours scheduled, First dose on Suly 11/02/20 at 2200, Flush volume based on line type and size. , Indications: FlushingIndications:Flushing Given 11/03/2020 6:49 AM CDT 10 mL Given 11/02/2020 9:16 PM CDT 10 mL sodium chloride 0.9% infusion 100 mL/hr, intravenous, Continuous, Starting on Suly 11/02/20 at 1900, May discontinue IVFs after patient with good PO intake and voiding without difficulty Rate/Dose Verify 11/03/2020 2:05 AM CDT 100 mL/hr 100 mL/hr New Bag 11/02/2020 6:56 PM CDT 100 mL/hr 100 mL/hr tranexamic acid (LYSTEDA) tablet 1,950 mg 1,950 mg, oral, Once, On Suly 11/02/20 at 1230, For 1 dose, Pre-Op, Do not crush, chew, cut, dissolve, open or otherwise manipulate tablet/capsule., Indications: Prophylaxis, SurgicalIndications:Prophylaxis, Surgical Given 11/02/2020 12:31 P M CDT 1,950 mg documented in this encounter Discontinued Medications Medication Sig Discontinue Reason Start Date End Da te celecoxib (CeleBREX) 200 mg capsuleIndications:Ost eoarthritis Take 200 mg by mouth 2 (two) times a day Stop Taking at Discharge 11/03/2020 aspirin 81 mg enteric coated tabletIndications:prev ention of thrombosis Take 81 mg by mouth every morning Stop Taking at Discharge 11/03/2020 documented as of this encounter Active and Recently Administered Medications Times are shown in CDT. Scheduled Medication Order 11/01/2020 11/02/2020 11/03/2020 acetaminophen (TYLENOL) tablet 1,000 mg 1,000 mg, oral, Every 6 hours scheduled, First dose on Suly 11/02/20 at 2100, Indications: Pain 4 (Given - Provider: Carolyne Linares RN) 0254 (Given - Provider: Carolyne Linares RN)0842 (Given - Provider: Lore Maher RN) aspirin enteric coated tablet 81 mg(Linked Group 1) 81 mg, oral, 2 times daily, First dose on Fri11/02/20 at 2100, Do not crush, chew, cut, dissolve, open or otherwise manipulate tablet/capsule., Indications: Deep Vein Thrombosis Prevention 2113 (Given - Provider: Carolyne Linares RN) 841 (Given - Provider: Lore Maher RN) buPROPion SR (WELLBUTRIN SR) 12 hour tablet 150 mg 150 mg, oral, Nightly, First dose on Fri11/02/20 at 2100, Do not crush, chew, cut, dissolve, open or otherwise manipulate tablet/capsule. 2113 (Given - Provider: Carolyne Linares RN) ceFAZolin (ANCEF) 1 gram/10 mL in sterile water (premix) 3,000 mg (COMPLETED) 3,000 mg, intravenous, at 600 mL/hr, Administer over 3 Minutes, Once, On Suly 11/02/20 at 1230, For 1 dose, Pre-Op, Administer within 60 minutes of incision., Indications: Prophylaxis, Surgical 1433 (Given - Provider: Wilfrid Uribe, HANDSTITCHING MACHINE COLLAR FELLER) docusate sodium (COLACE) capsule 100 mg 100 mg, oral, 2 times daily, First dose on Fri11/02/20 at 2100, Hold for diarrhea, Indications: constipation 2112 (Given - Provider: Carolyne Linares RN) 840 (Given - Provider: Lore Maher RN) DULoxetine DR (CYMBALTA) extended release capsule 60 mg 60 mg, oral, Every morning, First dose on Fri11/03/20 at 0900, Capsule may be opened and contents mixed with applesauce or apple juice ONLY. Do not crush, chew, cut, dissolve, open or otherwise manipulate tablet/capsule. 841 (Given - Provid er: Lore Maher RN) levothyroxine (SYNTHROID) tablet 150 mcg 150 mcg, oral, Daily (early AM), First dose on Fri11/03/20 at 0600, Administer on an empty stomach, preferably 30 minutes before breakfast. Take 4 hours apart from antacids, iron and calcium products. 648 (Given - Provid er: Carolyne Linares RN) metoprolol XL (TOPROL-XL) extended release tablet 25 mg 25 mg, oral, Every morning, First dose on Fri11/03/20 at 0900, Tablets that are scored may be split, but do not crush, chew, dissolve, open or otherwise manipulate tablet/capsule., Indications: hypertension 0842 (Given - Provid er: Lore Maher RN) pregabalin (LYRICA) capsule 50 mg 50 mg, oral, 2 times daily, First dose on Suly 11/02/20 at 2100, Indications: Restless Legs Syndrome 2114 (Given - Provider: Carolyne Linares RN) 0842 (Given - Provider: Lore Maher RN) rOPINIRole (REQUIP) tablet 0.5 mg 0.5 mg, oral, Nightly, First dose on Suly 11/02/20 at 2100, Indications: Restless Legs Syndrome 2113 (Given - Provider: Carolyne Linares RN) rOPINIRole (REQUIP) tablet 2 mg 2 mg, oral, Nightly, First dose on Suly 11/02/20 at 2100, Indications: Restless Legs Syndrome 2115 (Given - Provider: Carolyne Linares RN) sodium chloride 0.9% flush 0.5-20 mL 0.5-20 mL, intra-catheter, Every 8 hours scheduled, First dose on Fri11/02/20 at 2200, Flush volume based on line type and size. , Indications: Flushing 2115 (Given - Provider: Carolyne Linares RN) 0649 (Given - Provider: Carolyne Linares RN)1400 (Due) tranexamic acid (LYSTEDA) tablet 1,950 mg (COMPLETED) 1,950 mg, oral, Once, On Suly 11/02/20 at 1230, For 1 dose, Pre-Op, Do not crush, chew, cut, dissolve, open or otherwise manipulate tablet/capsule., Indications: Prophylaxis, Surgical 1231 (Given - Provider: Lilliam Patterson RN) Continuous Medication Order 11/01/2020 11/02/2020 11/03/2020 bupivacaine preservative free 1,000 mg/500 mL (0.2%) infusion (premix) Continuous Rate: 6 mL/hr, Patient Bolus Dose: 4 mL, Lockout Interval: 30 Minutes, Catheter Site: Interscalene, Catheter Side: Right, perineural, Continuous, Starting on Suly 11/02/20 at 1745, Until Fri11/03/20 at 1907, 500 mL, Routine 1718 (New Bag - Provider: Deena Lantigua, RN) Lactated Ringer's (LR) infusion () 30 mL/hr, intravenous, Continuous, Starting on Suly 11/02/20 at 1230, For 4 hours, Pre-Op, Use a 500 ml bag for End Stage Renal Disease Patients. Discontinue if fluid still running once patient arrives to floor. 1408 (New Bag - Provider: Nicole Connell, BENEDICT)1428 (Rate/Dose Verify - Provider: Logan Lisa MD)1633 (Paused - Provider: Scarlet Currie CRNA - Comment: Switch to gravity)1634 (New Bag - Provider: Scarlet Currie CRNA)1707 (Anesthesia Volume Adjustment - Provider: Scarlet Currie CRNA) Lactated Ringer's (LR) infusion 30 mL/hr, intravenous, Continuous, Starting on Suly 11/02/20 at 1230, Pre-Op 1230 (New Bag - Provider: Lilliam Patterson, BENEDICT) sodium chloride 0.9% infusion 100 mL/hr, intravenous, Continuous, Starting on Suly 11/02/20 at 1900, May discontinue IVFs after patient with good PO intake and voiding without difficulty 1856 (New Bag - Provider: Bridgett Hare, BENEDICT) 0205 (Rate/Dose Verify - Provider: Carolyne Linares RN) PRN Medication Order 11/01/2020 11/02/2020 11/03/2020 albuterol HFA (PROVENTIL HFA,VENTOLIN HFA,PROAIR HFA) 90 mcg/actuation inhaler 2 puff 2 puff, inhalation, Every 4 hours PRN (geothermal plant manager), wheezing, shortness of breath, Starting on Suly 11/02/20 at 1821, Indications: Acute Asthma Attack ceFAZolin (ANCEF) injection (CANCELED) Administer over 3 Minutes, As needed, Starting on Suly 11/02/20 at 1349, Intra-Op 1349 (Given - Provider: Salomón Edmondson MD) cyclobenzaprine (FLEXERIL) tablet 10 mg 10 mg, oral, Daily PRN, muscle spasms, Starting on Suly 11/02/20 at 1831 ondansetron (ZOFRAN) injection 4 mg 4 mg, intravenous, Administer over 2 Minutes, Every 6 hours PRN, nausea, vomiting, Starting on Suly 11/02/20 at 1821, Proceed to promethazine if no relief within 30 minutes., Indications: Nausea and Vomiting oxyCODONE (ROXICODONE) tablet 5 mg 5 mg, oral, Every 4 hours PRN, 1st line for pain, Starting on Suly 11/02/20 at 1821, May repeat in 1 hour if pain is uncontrolled or increasing. Max 2 doses within 1 dosing interval., Indications: Pain 1144 (Given - Provid er: Lore Maher RN) promethazine (PHENERGAN) tablet 25 mg 25 mg, oral, Every 6 hours PRN, nausea, vomiting, Starting on Suly 11/02/20 at 1821, If not relieved by ondansetron within 30 minutes., Indications: Nausea and Vomiting sodium chloride 0.9% flush 0.5-20 mL 0.5-20 mL, intra-catheter, As needed, line care, Starting on Suly 11/02/20 at 1821, Flush volume based on line type and size. Flush before and after each use. , Indications: Flushing vancomycin (VANCOCIN) solution (CANCELED) As needed, Starting on Suly 11/02/20 at 1349, Intra-Op 1349 (Given - Provider: Salomón Edmondson MD) Linked Groups Order Group 1: aspirin enteric coated tablet 81 mgJump to med 81 mg, oral, 2 times daily, First dose on Suly 11/02/20 at 2100, Do not crush, chew, cut, dissolve, open or otherwise manipulate tablet/capsule., Indications: Deep Vein Thrombosis Prevention And Reason for no Pharmacological VTE-Active Bleeding or risk of bleeding (COMPLETED) Contraindications: Active Bleeding or risk of bleeding documented in this encounter Orders Medications Ordered That Subhash ht Not Have Been Administered Count Last Ordered Date First Ordered Date acetaminophen (TYLENOL) tablet 500 mg 1 albuterol HFA (PROVENTIL HFA ,VENTOLIN HFA,PROAIR HFA) 90 mcg/actuation inhaler 2 puff 1 11/02/2020 ceFAZolin (ANCEF) 1 gram/10 mL in sterile water (premix) 2,000 mg 1 11/02/2020 ceFAZolin (ANCEF) 1 gram/10 mL in sterile water (premix) 3,000 mg 1 11/02/2020 ceFAZolin (ANCEF) injection 1 11/02/2020 cyclobenzaprine (FLEXERIL) tablet 10 mg 1 0 11/02/2020 diphenhydrAMINE (BENADRYL) i njection 12.5 mg 1 11/02/2020 famotidine (PEPCID) injection 20 mg 1 11/02 fentaNYL (SUBLIMAZE) preserv ative free injection 25 mcg 1 11/02/2020 hydrALAZINE (APRESOLINE) injection 5 mg 1 0 11/02/2020 HYDROcodone-acetaminophen (N ORCO) 5-325 mg per tablet 1 tablet 1 11/02/2020 HYDROmorphone (DILAUDID) injection 0.2 mg 1 11/02/2020 labetaloL (NORMODYNE,TRANDAT E) injection 5 mg 1 11/02/2020 Lactated Ringer's (LR) infusion 1 meperidine (DEMEROL) preserv ative free injection 12.5 mg 1 11/02/2020 naloxone (NARCAN) 0.4 mg/mL injection 0.04-0.4 mg 1 11/02/2020 ondansetron (ZOFRAN) injection 4 mg 2 11/02 prochlorperazine (COMPAZINE) injection 5 mg 1 11/02/2020 promethazine (PHENERGAN) tablet 25 mg 1 scopolamine patch 72 hour 1 patch 1 021 sodium chloride 0.9% flush 0.5-20 mL 3 10/11 vancomycin (VANCOCIN) solution 1 11/02/2020 CORE MEASURES Count Last Ordered Date First Ord ered Date REASON FOR NO VTE PROPHYLAXI S - HOSPITAL ADMISSION - MEDICATIONS 1 11/02/2020 documented in this encounter Care Teams Pipe Layer Relationship Specialty Start Date End Date Eldon Koehler MD [address] [place] [id number] PCP - General Internal Medicine 08/04/20 documented as of this encounter
--- OUTSIDE RECORDS SUMMARY | 2024-05-22 17:07 | XMS_ITS | Encounter Summary ---
Author Organization [facility] Address [address] [place] [address] Phone Care Team Providers Care Pony Edger Name Role Phone Eldon Koehler MD Primary Care Provider + Encounter Details Date Type Department Care Team (Late st Contact Info) Description 01/31/2021 Orders Only [facility] Orthopaedic Surgery [address] [place] [address] [place] [address] Salomón Edmondson MD [address] [facility] [address] [place] [address] Social History Tobacco Use Types Packs/Day Years [...] on file 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 Gender Identity Female 01/31/2021 9:15 AM CDT Sexual Orientation Straight 08/21/2020 10 :14 AM CDT documented as of this encounter Ordered Prescriptions Prescription Sig Dispense Quantity Refills Last Filled Start Date End Date amoxicillin (AMOXIL) 500 mg tablet/capsule TAKE FOUR TABLETS/CAPSULE S 1 HOUR PRIOR TO DENTAL PROCEDURE 12 tablet/capsule 01/31/2021 documented in this encounter Plan of Treatment Not on file documented as of this encounter Visit Diagnoses Not on filedocumented in this encounter Care Teams Pony Edger Relationship Specialty Start Date End Date Eldon Koehler MD [address] [place] [address] PCP - General Internal Medicine 08/04/20 documented as of this encounter
--- OUTSIDE RECORDS SUMMARY | 2024-05-22 17:07 | XMS_ITS | Encounter Summary ---
Author Organization [facility] Address [address] [place] [address] Phone Care Team Providers Care Patternmaker Metal Bench Name Role Phone Eldon Koehler MD Primary Care Provider + Reason for Referral * MRI/CAT/PET Scan (Routine) - Closed Specialty Diagnoses / Procedures Referred By Contac t Referred To Contact Radiology Diagnoses Rotator cuff tear arthropathy of right shoulder Procedures CT Shoulder Right WO Contrast Salomón Edmondson MD [address] [place] [address] Phone: tel: fax: [address] [phone] Referral ID Status Reason Start Date Expiration Date Visits Re quested Visits Authorized [id number] Closed 10/16/2020 11/15/2021 1 1 Encounter Details Date Type Department Care Team (Late st Contact Info) Description 10/16/2020 Orders Only [facility] Orthopaedic Surgery [address] [facility] [address] [place] [address] Salomón Edmondson MD [address] [place] [address] Rotator cuff tear arthropathy of right shoulder (Primary Dx) Social History Tobacco Use Types Packs/Day Years Used Date Smoking Tobacco: Never Comments Unknown Sex and Gender Information Value Date Recorded Sex Assigned at Not on file 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 ??Moderate right acromioclavicular and glenohumeral osteoarthritis with minimal glenoid retroversion. 2. Mild right supraspinatus and moderate infraspinatus muscle atrophy. Electronically signed by: Ashvin Navarrete M.D. Narrative 10/30/2020 12:56 PM CDT EXAMINATION: Right shoulder CT without contrast HISTORY: ??Right glenohumeral osteoarthritis FINDINGS: Radiographs on 08/22/[address] examination of the right shoulder is performed without contrast. Oblique coronal and oblique sagittal reconstructions were made at the scanner and sent to the workstation for review. There is moderate acromioclavicular and glenohumeral osteoarthritis. There is a subacromial spur. Prior rotator cuff repair is present. There is no fracture. There is remodeling of the undersurface of the acromion. There is mild supraspinatus and moderate infraspinatus muscle atrophy. There is minimal glenoid retroversion. Procedure Note Ashvin Navarrete MD - 10/30/2020 EXAMINATION: Right shoulder CT without contrast HISTORY: Right glenohumeral osteoarthritis FINDINGS: Radiographs on 08/22/[address] examination of the right shoulder is performed without contrast. Oblique coronal and oblique sagittal reconstructions were made at the scanner and sent to the workstation for review. There is moderate acromioclavicular and glenohumeral osteoarthritis. There is a subacromial spur. Prior rotator cuff repair is present. There is no fracture. There is remodeling of the undersurface of the acromion. There is mild supraspinatus and moderate infraspinatus muscle atrophy. There is minimal glenoid retroversion. IMPRESSION: 1. Moderate right acromioclavicular and glenohumeral osteoarthritis with minimal glenoid retroversion. 2. Mild right supraspinatus and moderate infraspinatus muscle atrophy. Electronically signed by: Ashvin Navarrete M.D. Salomón Edmondson MD IMG CT PROCEDURES Final Re sult documented in this encounter Visit Diagnoses Diagnosis Rotator cuff tear arthropathy of right shoulder- Primary Rotator cuff tear arthropathy of right shoulder documented in this encounter Care Teams Patternmaker Metal Bench Relationship Specialty Start Date End Date Eldon Koehler MD [address] [place] [address] PCP - General Internal Medicine 08/04/20 documented as of this encounter
--- OUTSIDE RECORDS SUMMARY | 2024-05-22 17:07 | XMS_ITS | Encounter Summary ---
Author Organization [facility] Address [address] [place] [address] Phone Care Team Providers Care Manager Lighting Name Role Phone Eldon Koehler MD Primary Care Provider + Reason for Visit * Reason Comments Pain Encounter Details Date Type Department Care Team (Late st Contact Info) Description 09/05/2020 7:00 AM CDT Office Visit [facility] Orthopaedic Surgery [address] [facility] 2nd Floor [address] [place] [address] Salomón Edmondson MD [address] [facility] [address] [place] [address] Rotator cuff tear arthropathy of right shoulder (Primary Dx) Social History Tobacco Use Types Packs/Day Years Used Date Smoking Tobacco: Never Comments Unknown Sex and Gender Information Value Date Recorded Sex Assigned at Not on file 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 Patient has ahistory of previous open cuff repair performed in 2017. She did well but started having increasing pain about 6 months after the surgery. There is no specific injury. She has basically been living with a painful weak shoulder for the last 2 years. She has had no recent treatment. She states she hasbeen unable to raise her arm overhead for at least 2 years. Her pain level is moderate including pain at nighttime. She has a history of fibromyalgia and takes Celebrex, Lyrica and Requip. She is right-hand dominant. She is retired. Her 3 grandchildren live with her so she is very active. About 2 weeks ago she noticed some bruising in her upper arm. Denies any numbness and tingling in the hand PAST MEDICAL HISTORY She History reviewed. No pertinent past medical history. PAST SURGICAL HISTORY She History reviewed. No pertinent surgical history. INITIAL REVIEW OF MEDICATIONS She has a current medication list which includes the following prescription(s): albuterol hfa, atorvastatin, bupropion sr, cyclobenzaprine, duloxetine dr, levothyroxine, metoprolol xl, omeprazole, polyethylene glycol-electrolytes, pregabalin, and ropinirole. DRUG ALLERGIES She is allergic to clindamycin; codeine; nickel; and nsaids (non-steroidal anti- inflammatory drug). SOCIAL HISTORY She reports that she has never smoked. She does not have any smokeless tobacco history on file. FAMILY HISTORY Her family history includes Alcohol abuse in her father; Arthritis in her father and mother; Cancerin her mother; Mental illness in her daughter and son; Stroke in her father. REVIEW OF SYSTEMS Review of Systems PHYSICAL EXAMINATION Exam shows a very pleasant overweight middle-aged woman in no acute distress. She is alert orientedand answers questions appropriately. There is no visible cuff atrophy. AC joint nontender. There issome bruising and palpable deformity in her proximal biceps. The biceps is torn and retracted distally and slightly tender. Her active elevation today is about 75-80 degrees limited by pain with assistance her elevation is 100??. External rotation with arm to side is 30?? with a very subtle lag sign. Abduction with the scapula stabilized is about 80?? limited by pain. External rotation from an abducted position was about 45??. She can reach behind her back to the lateral crest. Deltoid fires well. Distal neurovascular exam is intact. She had moderate to severe external rotation and abduction weakness. She can hold the abdominal compression test position well but had pain on resistance. Right upper extremity was neurovascular intact REVIEW OF X-RAYS/STUDIES Radiographs taken at previous visit show cuff tear arthropathy. She has complete loss of acromial humeral interval and significant glenohumeral arthritis. There may be some subtle superior glenoid erosion. IMPRESSION/DIAGNOSIS 70-year-old female with right shoulder cuff tear arthropathy, previous rotator cuff repair performed in 2017. Recent long head biceps tendon rupture. TREATMENT PLAN We discussed her diagnosis and options for management. We discussed conservative treatment versus surgical options. She was very interested in proceeding with reverse shoulder arthroplasty is a more definitive treatment for her condition. We discussed the risk and benefits of that surgery and time line for recovery. She will need to CT scan preoperatively. Salomón Edmondson MD Professor Chief, Shoulder and Elbow Service [facility] Dr Edmondson dictating via MModal. Information Systems Security Officer variances may occur. documented in this encounter Plan of Treatment Not on file documented as of this encounter Visit Diagnoses Diagnosis Rotator cuff tear arthropathy of right shoulder- Primary documented in this encounter Care Teams Manager Lighting Relationship Specialty Start Date End Date Eldon Koehler MD [address] [place] [address] PCP - General Internal Medicine 08/04/20 documented as of this encounter
--- OUTSIDE RECORDS SUMMARY | 2024-05-22 17:07 | XMS_ITS | Encounter Summary ---
Author Organization [facility] Address [address] [place] [address] Phone Care Team Providers Care Stable Manager Name Role Phone Eldon Koehler MD Primary Care Provider + Encounter Details Date Type Department Care Team (Late st Contact Info) Description 11/05/2020 Orders Only [facility] Orthopaedic Surgery [address] [facility] 2nd [address] [place] [address] Bogdan Haas MD [address] [place] [address] Social History Tobacco Use Types Packs/Day Years [...] on file 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 Prescription for zofran sent to pharmacy documented in this encounter Plan of Treatment Not on file documented as of this encounter Visit Diagnoses Not on filedocumented in this encounter Care Teams Stable Manager Relationship Specialty Start Date End Date Eldon Koehler MD [address] [place] [address] PCP - General Internal Medicine 08/04/20 documented as of this encounter
--- OUTSIDE RECORDS SUMMARY | 2024-05-22 17:07 | XMS_ITS | Encounter Summary ---
Author Organization [facility] Address [address] [place] [address] Phone Care Team Providers Care Front Desk Representative Name Role Phone Eldon Koehler MD Primary Care Provider + Reason for Referral * Diagnostic Imaging (Routine) - Closed Specialty Diagnoses / Procedures Referred By Carmen t Referred To Contact Diagnoses Status post reverse arthroplasty of right shoulder Procedures XR Shoulder Right 2+ View Salomón Edmondson MD [address] [employer] [address] [place] [address] Phone: tel: fax: [facility] [address] [place] [address] Referral ID Status Reason Start Date Expiration Date Visits Re quested Visits Authorized [id number] Closed 12/12/2020 01/11/2022 1 1 Reason for Visit * Reason Comments Post-op Encounter Details Date Type Department Care Team (Late st Contact Info) Description 12/26/2020 11:30 AM CDT Office Visit [facility] Orthopaedic Surgery [address] [facility] 2nd Floor [address] [place] [address] Salomón Edmondson MD [address] [place] [address] Status post reverse arthroplasty of right shoulder [...] on file 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 She has continued to work with physical therapy on range of motion and has noted progressive gains and has met all her goals. She has minimal pain. She denies any issues with her incision. OBJECTIVE: Patient is alert and oriented X4. Breathing is nonlabored. Right shoulder: Incision well healed without signs of infection. Active elevation to 90??, externalrotation to 40?? without lag signs, adduction to 70 degrees. Fires deltoid, sensation intact in theaxillary nerve distribution. No pain at the acromion or scapular spine. Neurovascularly intact distally. RADIOGRAPHS: Radiographs of the right shoulder reviewed. These demonstrate reverse total arthroplasty with implants in good position. The bone graft is not appear to have shifted. Her lesser tuberosity osteotomy does appear to have pulled off slightly. ASSESSMENT/PLAN: 62-year-old female now approximately 8 weeks status post a left by RCA with subscapularis repair. The patient is doing very well today's visit clinically. Her pain is minimal and she has done very well in physical therapy. We loosened her restrictions with regards to range of motion and lifting to approximately 15 lb. We will plan to see her back with repeat radiographs in approximately 6 weeks. Her LTO does appear to have pulled off slightly but she is clinically doing very well. This patient was seen and examined with Dr. Edmondson. This note will serve as the final dictation. Rad Weir MD Cosigned by Salomón Edmondson MD at 12/27/2020 6:06 PM CDT documented in this encounter Plan of Treatment Not on file documented as of this encounter Results * XR Shoulder Right 2+ View (12/26/2020 12:18 PM CDT) Anatomical Region Laterality Modality Upper Extremities, Shoulder Right Comp uted Radiography 12/26/2020 12:4 3 PM CDT Impressions 12/26/2020 12:43 PM CDT Reverse xroy-ssi-irqigi right total shoulder arthroplasty in near-anatomic position. Electronically signed by: Td Dooley M.D. Narrative 12/26/2020 12:43 PM CDT EXAMINATION: Right shoulder minimum 2 views HISTORY: Right shoulder osteoarthritis FINDINGS: 4 views of the right shoulder were performed with comparison made to 11/14/2020. There is a reverse ewac-iyi-xwzvvy right total shoulder arthroplasty in near-anatomic position. There is no periprosthetic lucency or periprosthetic fracture. Distal clavicular excision is redemonstrated. Aortic atherosclerosis is noted. Procedure Note Td Dooley MD PhD - 12/26/2020 EXAMINATION: Right shoulder minimum 2 views HISTORY: Right shoulder osteoarthritis FINDINGS: 4 views of the right shoulder were performed with comparison made to 11/14/2020. There is a reverse jjut-fhz-gervei right total shoulder arthroplasty in near-anatomic position. There is no periprosthetic lucency or periprosthetic fracture. Distal clavicular excision is redemonstrated. Aortic atherosclerosis is noted. IMPRESSION: Reverse dikp-xni-eiwmvm right total shoulder arthroplasty in near-anatomic position. Electronically signed by: Td Dooley M.D. Salomón Edmondson MD IMG XR PROCEDURES Final Re sult documented in this encounter Visit Diagnoses Diagnosis Status post reverse arthroplasty of right shoulder- Primary Status post reverse arthroplasty of right shoulder documented in this encounter Care Teams Front Desk Representative Relationship Specialty Start Date End Date Eldon Koehler MD [address] [place] [address] PCP - General Internal Medicine 08/04/20 documented as of this encounter
--- OUTSIDE RECORDS SUMMARY | 2024-05-22 17:07 | XMS_ITS | Encounter Summary ---
Author Organization [facility] Address [address] [place] [address] Care Team Providers Care Service Mechanic Name Role Phone Eldon Koehler MD Primary Care Provider + Reason for Referral * Diagnostic Imaging (Routine) - Closed Specialty Diagnoses / Procedures Referred By Maritzaac t Referred To Contact Diagnoses Status post reverse arthroplasty of right shoulder Procedures XR Shoulder Right 2 or More Views Salomón Edmondson MD [address] [employer] [facility] [address] [place] [address] Phone: tel: fax: [address] [address] Referral ID Status Reason Start Date Expiration Date Visits Re quested Visits Authorized [id number] Closed 01/08/2021 02/07/2022 1 1 Reason for Visit * Diagnostic Imaging (Routine) - Closed Specialty Diagnoses / Procedures Referred By Contac t Referred To Contact Diagnoses Status post reverse arthroplasty of right shoulder Procedures XR Shoulder Right 2 or More Views Salomón Edmondson MD [address] [employer] [facility] [place] [address] Phone: tel: fax: [address] [address] Referral ID Status Reason Start Date Expiration Date Visits Re quested Visits Authorized [id number] Closed 01/08/2021 02/07/2022 1 1 Encounter Details Date Type Department Care Team (Latest Contact Info) Description 01/09/2021 1:15 PM CDT - 01/09/2021 11:59 PM CDT Hospital Encounter [facility] [address] [place] [address] Salomón Edmondson MD [address] [facility] [address] [place] [address] Status post reverse arthroplasty of right shoulder [...] on file 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 Gender Identity Female 01/31/2021 9:15 AM CDT [...] mcg tablet Take 150 mcg by mouth test facility engineer before breakfast 01/21/2020 metoprolol XL (TOPROL-XL) 25 [...] VIEWS Schedule Routine, Read Routine (OP Routine) 01/09/2021 1:29 PM CDT Status post reverse arthroplasty of right shoulder documented in this encounter Results * XR Shoulder Right 2 or More Views (01/09/2021 1:29 PM CDT) Anatomical Region Laterality Modality Upper Extremities, Shoulder Right Comp uted Radiography 01/09/2021 1:40 PM CDT Impressions 01/09/2021 3:10 PM CDT Reverse right total shoulder arthroplasty in unchanged position, with unchanged minimally displaced lesser tuberosity osteotomy. Dictated by: Juwan Dickey M.D. The radiology attending physician has personally reviewed this study, and had reviewed and/or edited this written report and agrees with it. Electronically signed by: Td Dooley M.D. Narrative 01/09/2021 3:10 PM CDT EXAMINATION: XR SHOULDER RIGHT 2 OR MORE VIEWS HISTORY: Right shoulder pain COMPARISON: 12/26/20. FINDINGS: 4 views of the right shoulder are submitted for evaluation with comparison 12/26/2020. Redemonstrated reverse ovhq-pmm-slshjh right total shoulder arthroplasty in near anatomic position. Minimally displaced lesser tuberosity osteotomy. No periprosthetic lucency or periprosthetic fracture. Distal clavicle excision is again noted. Procedure Note Td Dooley MD PhD - 01/09/2021 EXAMINATION: XR SHOULDER RIGHT 2 OR MORE VIEWS HISTORY: Right shoulder pain COMPARISON: 12/26/20. FINDINGS: 4 views of the right shoulder are submitted for evaluation with comparison 12/26/2020. Redemonstrated reverse ujzm-kjl-jugbah right total shoulder arthroplasty in near anatomic position. Minimally displaced lesser tuberosity osteotomy. No periprosthetic lucency or periprosthetic fracture. Distal clavicle excision is again noted. IMPRESSION: Reverse right total shoulder arthroplasty in unchanged position, with unchanged minimally displaced lesser tuberosity osteotomy. Dictated by: Juwan Dickey M.D. The radiology attending physician has personally reviewed this study, and had reviewed and/or edited this written report and agrees with it. Electronically signed by: Td Dooley M.D. Salomón Edmondson MD IMG XR PROCEDURES Final Re sult documented in this encounter Visit Diagnoses Diagnosis Status post reverse arthroplasty of right shoulder documented in this encounter Care Teams Service Mechanic Relationship Specialty Start Date End Date Eldon Koehler MD [address] [place] [address] PCP - General Internal Medicine 08/04/20 documented as of this encounter
--- OUTSIDE RECORDS SUMMARY | 2024-05-22 17:07 | XMS_ITS | Referral Summary ---
Author Organization [facility] Address [address] [place] [address] Care Team Providers Care Truss Designer Name Role Phone Eldon Koehler MD Primary Care Provider + Allergies Active Allergy Reactions Criticality Noted Date Comments Clindamycin Rash Reaction: Rash, Codeine Nausea only Reaction: Nausea, Nickel Rash Medium Nsaids (Non-Steroidal Anti-Inflammatory Drug) Other (See comments) Low 02/05/2017 S/P SLEEVE GASTRECTOMY Medications rOPINIRole (REQUIP) 2 mg tabletIndications: Restless Legs Syndrome Take 2 mg by mouth nightly 3 Active pregabalin (LYRICA) 50 mg capsuleIndications :Restless Legs Syndrome Take 50 mg by mouth 2 (two) times a day 1 Active omeprazole (PriLOSEC) 20 mg capsule Take 20 mg by mouth every morning 5 Active metoprolol XL (TOPROL-XL) 25 mg extended release tabletIndications: hypertension Take 25 mg by mouth every morning 1 Active levothyroxine (SYNTHROID) 150 mcg tablet Take 150 mcg by mouth roof technician before breakfast [address] (CYMBALTA) 60 mg capsule Take 60 mg by mouth every morning 1 Active cyclobenzaprine (FLEXERIL) 10 mg tablet Take 10 mg by mouth as needed for muscle spasms 1 Active buPROPion SR (WELLBUTRIN SR) 150 mg 12 hr tablet Take 150 mg by mouth nightly 1 Active atorvastatin (LIPITOR) 20 mg tablet Take 20 mg by mouth every morning 6 Active albuterol HFA (PROVENTIL HFA,VENTOLIN HFA,PROAIR HFA) 90 mcg/actuation inhalerIndications :Acute Asthma Attack Inhale 2 puffs 4 (four) times a day as needed 8 Active MULTIVITAMIN ORAL Take 1 Dose by mouth every morning Active calcium carbonate-vitamin D3 (CALTRATE 600 + D) 1500 mg (600 mg elemental) -400 units per tablet Take 1 tablet by mouth every morning Active rOPINIRole (REQUIP) 0.5 mg tabletIndications: Restless Legs Syndrome Take 0.5 mg by mouth nightly Active oxyCODONE (ROXICODONE) 5 mg immediate release tabletIndications: Pain Take 1 tablet (5 mg total) by mouth every 4 (four) hours as needed for pain 40 tablet 1 Active aspirin 81 mg enteric coated tabletIndications: Deep Vein Thrombosis Prevention Take 1 tablet (81 mg total) by mouth 2 (two) times a day for 14 days 28 tablet 1 Active acetaminophen 500 mg capsuleIndications :Pain Take 2 capsules (1,000 mg total) by mouth every 6 (six) hours 90 tablet 1 Active docusate sodium (COLACE) 100 mg capsuleIndications :constipation Take 1 capsule (100 mg total) by mouth 2 (two) times a day 30 capsule 1 Active ondansetron ODT (ZOFRAN-ODT) 4 mg disintegrating tablet Take 1 tablet (4 mg total) by mouth every 8 (eight) hours as needed for nausea or vomiting 20 tablet 1 Active amoxicillin (AMOXIL) 500 mg tablet/capsule TAKE FOUR TABLETS/CAPSU LES 1 HOUR PRIOR TO DENTAL PROCEDURE 12 tablet/capsu le 1 Active Active Problems Problem Noted Date Diagnosed Date MURIEL on CPAP 10/30/2020 Rotator cuff tear arthropathy of right shoulder 09/05/2020 Overview (09/05/2020): Added automatically from request for surgery [id number] Prediabetes 12/24/2019 Obesity (BMI 35.0-39.9 without comorbidity) 05/2017 Adhesive capsulitis of shoulder 01/18/2016 Calcific tendinitis of shoulder 01/18/2016 Rotator cuff syndrome 01/18/2016 Pain in shoulder 01/12/2016 Arthralgia of shoulder 06/22/2014 Hyperhidrosis 05/31/2014 Overview (08/22/2020): Scalp- robinul injections per derm Fibromyalgia 04/19/2014 GERD (gastroesophageal reflux disease) 4 Restless leg syndrome 10/04/2007 Impaired fasting glucose 08/03/2007 Asthma 06/05/2007 Backache 03/02/2007 Hypothyroidism 04/19/2005 Osteoarthritis 10/19/2004 Recurrent major depressive disorder, in partial remission 06/08/2003 Hyperlipemia 06/07/2003 Social History Tobacco Use Types Packs/Day Years [...] on file 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 Gender Identity Female 01/31/2021 9:15 AM CDT Sexual Orientation Straight 08/21/2020 10 :14 AM CDT Last Filed Vital Signs Vital Sign Reading Time Taken Comments Blood Pressure 135/74 11/03/2020 11:55 AM CDT Pulse 84 11/03/2020 11:55 AM CDT Temperature 36.8 ??C (98.3 ??F) 11/03/2020 11:55 AM C DT Respiratory Rate 16 11/03/2020 11:55 AM CDT Oxygen Saturation 100% 11/03/2020 11:55 AM CDT Inhaled Oxygen Concentration - - Weight 120.2 kg (265 lb) 10/30/2020 10:40 AM CDT Height 165.1 cm (5' 5 ) 10/30/2020 10:40 AM CDT Body Mass Index 44.1 10/30/2020 10:40 AM CDT Plan of Treatment Not on file Medical Devices Implanted Type Area Sanding Machine Buffer Device Identifier Shelf Expiration Date Model / Serial / Lot [employer] Inc [id number] Aequalis 29mm Reverse Long Post Shoulder Baseplate Glenoid Sequeira - [id number] - [id number] Implanted:Qty: 1 on 11/02/2020 by Salomón Edmondson MD at [facility] [employer] [id number] 12/04/2022 [id number] / [id number] / [employer] [id number] 36mm Reverse Ii Center Shoulder Sphere Glenoid Titanium - [id number] - [id number] Implanted:Qty: 1 on 11/02/2020 by Salomón Edmondson MD at [facility] [employer] [id number] 05/03/2024 [id number] / [id number] / [employer] [id number] Aequalis Reversed 4.5mm 20mm Compression Glenoid Screw Baseplate - [id number] Implanted:Qty: 1 on 11/02/2020 by Salomón Edmondson MD at [facility] [employer] [id number] / / 0 [employer] [id number] Aequalis Reversed 4.5mm 23mm Compression Glenoid Screw Baseplate - [id number] Implanted:Qty: 1 on 11/02/2020 by Salomón Edmondson MD at [facility] [employer] [id number] / / 0 [employer] [id number] Aequalis 4.5mm 38mm Lock Multidirectional Self Tap Shoulder Screw Latex Free - [id number] Implanted:Qty: 1 on 11/02/2020 by Salomón Edmondson MD at [facility] [employer] [id number] / / 0 [employer] [id number] Screw Bsplt 41mm 4.5mm Aequalis Shoulder Ti Lock - [id number] Implanted:Qty: 1 on 11/02/2020 by Salomón Edmondson MD at [facility] [employer] [id number] / / 0 [employer] [id number] Insert Perform 10 Deg [id number] - [id number] Implanted:Qty: 1 on 11/02/2020 by Salomón Edmondson MD at [facility] [employer] [id number] / / [id number] [employer] Dwx2ps Stem Perform Sz 2 Plus Humeral - [id number] Implanted:Qty: 1 on 11/02/2020 by Salomón Edmondson MD at [facility] [employer] [id number] / / [id number] Insurance MEDICARE [facility] MEDICARE [facility] MEDICARE MEDICARE Advance Directives For more information, please contact: [phone] * Full Code (Latest Code Status on File) Date Activated Date Inactivated Comments 11/02/2020 6:21 PM 11/03/2020 7:12 PM Care Teams Truss Designer Relationship Specialty Start Date End Date Eldon Koehler MD [address] [place] [address] PCP - General Internal Medicine 08/04/20
--- OUTSIDE RECORDS SUMMARY | 2024-05-22 17:07 | XMS_ITS | Encounter Summary ---
Author Organization [facility] Facility Care Team Providers Care Health Management Consultant Name Role Phone Unavailable Primary Care Provider Unavailabl e Encounter Details Date Type Department Care Team (Late st Contact Info) Description 06/23/2014 - 06/23/2014 11:59 PM CLAY PIGEON LOADER Hospital Encounter [facility] Ty Whitehead MD [address] [facility] [address] [place] [address] Pain in joint, shoulder region; Osteoarthrosis, shoulder region Social History Tobacco Use Types Packs/Day Years Used Date Smoking Tobacco: Never Comments Unknown Sex and Gender Information Value Date Recorded Sex Assigned at Not on file 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 Gender Identity Female 01/31/2021 9:15 AM CDT [...] Priority Date/Time Associated Diagnosis Comments XR SHOULDER 2+ VW Routine 06/23/2014 8:0 5 AM CLAY PIGEON LOADER documented in this encounter Results * XR Shoulder 2+ Vw (06/23/2014 8:05 AM CLAY PIGEON LOADER) Anatomical Region Laterality Modality Shoulder N/A Radiographic Vaishali ging 06/23/2014 8:05 AM CLAY PIGEON LOADER Narrative 06/23/2014 8:10 AM CLAY PIGEON LOADER Hang MORRIOSN FINAL REPORT ACC# ??Date Time ??Exam [id number] Jun 23, 2014 08:05:00 [id number] Shoulder minimum 2 views R EXAMINATION: ?Right shoulder minimum 2 views HISTORY: ??Shoulder pain FINDINGS: ?? Four views of the right shoulder are submitted for interpretation without comparison. The alignment of the right shoulder is anatomic. The glenohumeral joint space is normal. There is severe acromioclavicular osteoarthritis. There is no fracture. IMPRESSION: ?? Severe right acromioclavicular osteoarthritis. Requested By: TY TUBBS M.D. Dictated By: ?? ARIE KRISHNAN M.D. F ??on Jun 23 2014 ??8:10A This document has been electronically signed by: Hang MORRISON on Jun 23 2014 ??8:10A [id number] Procedure Note Provider, MD Arley - 09/10/2016 Hang MORRISON FINAL REPORT ACC# Date Time Exam [id number] Jun 23, 2014 08:05:00 [id number] Shoulder minimum 2 views R EXAMINATION: Right shoulder minimum 2 views HISTORY: Shoulder pain FINDINGS: Four views of the right shoulder are submitted for interpretation without comparison. The alignment of the right shoulder is anatomic. The glenohumeral joint space is normal. There is severe acromioclavicular osteoarthritis. There is no fracture. IMPRESSION: Severe right acromioclavicular osteoarthritis. Requested By: TY TUBBS M.D. Dictated By: Hang MORRISON on Jun 23 2014 8:10A This document has been electronically signed by: Hang MORRISON on Jun 23 2014 8:10A [id number] us Historical Provider MD [place] XR PROCEDURES Final R esult documented in this encounter Visit Diagnoses Diagnosis Pain in joint, shoulder region Osteoarthrosis, shoulder region Osteoarthrosis, unspecified whether generalized or localized, shoulder region documented in this encounter
--- OUTSIDE RECORDS SUMMARY | 2024-05-22 17:07 | XMS_ITS | Encounter Summary ---
Author Organization [facility] Address [address] [place] [address] Phone Care Team Providers Care Sand Worker Name Role Phone Eldon Koehler MD Primary Care Provider + Reason for Referral * Diagnostic Imaging (Routine) - Closed Specialty Diagnoses / Procedures Referred By Carmen t Referred To Contact Diagnoses Status post reverse arthroplasty of right shoulder Procedures XR Shoulder Right 2+ View Salomón Edmondson MD [address] [place] [address] Phone: tel: fax: [facility] [address] [place] [address] Referral ID Status Reason Start Date Expiration Date Visits Re quested Visits Authorized [id number] Closed 11/07/2020 12/07/2021 1 1 Reason for Visit * Reason Comments Post-op Encounter Details Date Type Department Care Team (Late st Contact Info) Description 11/14/2020 9:15 AM CDT Office Visit [facility] [address] [facility] 2nd [address] [place] [address] Salomón Edmondson MD [address] [place] [address] Status post reverse arthroplasty of [...] on file 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 Patient is doing very well. Her pain is improving nicely. She had a pretty severe rash in the area of the adhesive set were holding her interscalene catheter in place. Thatseems to have gotten better with use of topical hydrocortisone and time. She has been walking with the cane. PHYSICAL EXAMINATION Incisions are clean, dry and intact and without drainage. Wounds healing well, there is no significant hematoma or drainage or cellulitis. Her axillary nervesensation is intact. Her deltoid fires well. Distal neurovascular exam is intact. Her hand is a bitstiff that she has known arthritis in there and she has been off of her Celebrex. She tolerated abduction to about 70 and external rotation to 10??. REVIEW OF X-RAYS/STUDIES Radiographs, which I ordered, were performed today. I have personally reviewed and interpreted these studies. Radiographs show well position bio rsa construct. Lesser tuberosity appears to be in goodalignment. It is anatomic on the AP view and appears to be displaced medially on the axillary view.I think that is just projection. IMPRESSION/DIAGNOSIS Doing well following a right shoulder bio rsa with LT 0 repair. We reviewed restrictions. Start physical therapy locally. TREATMENT PLAN See above. Wean from sling next week. All questions were answered today. FOLLOW UP Six weeks with repeat right shoulder radiographs Salomón Edmondson MD Professor Chief, Shoulder and Elbow Service [facility] Dr Edmondson dictating via MModal. Motor Assembly Supervisor variances may occur. documented in this encounter Plan of Treatment Not on file documented as of this encounter Results * XR Shoulder Right 2+ View (11/14/2020 9:23 AM CDT) Anatomical Region Laterality Modality Upper Extremities, Shoulder Right Comp uted Radiography 11/14/2020 10:4 2 AM CDT Impressions 11/14/2020 10:43 AM CDT Reverse jtfp-uak-ddrplh total right glenohumeral arthroplasty with decreased persistent soft tissue gas and interval removal of drain. Dictated by: Mariusz Molina MD The radiology attending physician has personally reviewed this study, and had reviewed and/or edited this written report and agrees with it. Electronically signed by: Doyle Cid MD, PHD Narrative 11/14/2020 10:43 AM CDT EXAMINATION: XR SHOULDER RIGHT 2 OR MORE VIEWS HISTORY: Follow-up status post reverse arthroplasty of right shoulder COMPARISON: X-ray of right shoulder dated 11/03/2011 and FINDINGS: ?? 4 images of the right shoulder are submitted for evaluation by Dr. Edmondson as compared to prior radiograph dated 11/02/2020. There is interval removal of the surgical drain and decreased but persistent soft tissue gas. Orthopedic components of the reverse nqkr-njn-wunykt total right glenohumeral arthroplasty are in expected near-anatomic position. There is no periprosthetic fracture. There is unchanged resection of the distal clavicle. Procedure Note Doyle Cid MD PhD - 11/14/2020 EXAMINATION: XR SHOULDER RIGHT 2 OR MORE VIEWS HISTORY: Follow-up status post reverse arthroplasty of right shoulder COMPARISON: X-ray of right shoulder dated 11/03/2011 and FINDINGS: 4 images of the right shoulder are submitted for evaluation by Dr. Edmondson as compared to prior radiograph dated 11/02/2020. There is interval removal of the surgical drain and decreased but persistent soft tissue gas. Orthopedic components of the reverse ctkr-qax-rbrnhw total right glenohumeral arthroplasty are in expected near-anatomic position. There is no periprosthetic fracture. There is unchanged resection of the distal clavicle. IMPRESSION: Reverse fhjz-fic-wqsykn total right glenohumeral arthroplasty with decreased persistent soft tissue gas and interval removal of drain. Dictated by: Mariusz Molina MD The radiology attending physician has personally reviewed this study, and had reviewed and/or edited this written report and agrees with it. Electronically signed by: Doyle Cid MD, PHD us Salomón Edmondson MD IMG XR PROCEDURES Final Re sult documented in this encounter Visit Diagnoses Diagnosis Status post reverse arthroplasty of right shoulder- Primary Status post reverse arthroplasty of right shoulder documented in this encounter Care Teams Sand Worker Relationship Specialty Start Date End Date Eldon Koehler MD [address] [place] [address] PCP - General Internal Medicine 08/04/20 documented as of this encounter
--- OUTSIDE RECORDS SUMMARY | 2024-05-22 17:07 | XMS_ITS | Encounter Summary ---
Author Organization [facility] Address [address] [place] [address] Phone Care Team Providers Care Spanish Medical Interpreter Name Role Phone Eldon Koehler MD Primary Care Provider + Encounter Details Date Type Department Care Team (Late st Contact Info) Description 10/31/2020 Documentation [facility] Orthopaedic Surgery [address] [facility] 12th [place] [address] [place] [phone] Ghada Livingston RN Social History Tobacco Use Types Packs/Day Years Used Date Smoking Tobacco: Never Smokeless Tobacco: Never AUDIT-C Answer Date Recorded Q1: How often do you have a drink containing alc ohol? 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 Pt was reminded not to eat or drink after Midnight. Return call requested. documented in this encounter Plan of Treatment Not on file documented as of this encounter Visit Diagnoses Not on filedocumented in this encounter Care Teams Spanish Medical Interpreter Relationship Specialty Start Date End Date Eldon Koehler MD [address] [place] [phone] PCP - General Internal Medicine 08/04/20 documented as of this encounter
--- OUTSIDE RECORDS SUMMARY | 2024-05-22 17:07 | XMS_ITS | Encounter Summary ---
Author Organization [facility] Address [address] [place] [address] Phone Care Team Providers Care Marine Engine Mechanic Name Role Phone Eldon Koehler MD Primary Care Provider + Encounter Details Date Type Department Care Team (Late st Contact Info) Description 11/20/2020 Orders Only [facility] Orthopaedic Surgery [address] [facility] 12th [place] [address] [place] [address] Salomón Edmondson MD [address] [facility] 6A[address]6B[address] [place] [address] Status post reverse arthroplasty of right shoulder [...] on file 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
--- OUTSIDE RECORDS SUMMARY | 2024-05-22 17:07 | XMS_ITS | Encounter Summary ---
Author Organization [facility] Facility Care Team Providers Care Mat Worker Name Role Phone Unavailable Primary Care Provider Unavailabl e Encounter Details Date Type Department Care Team (Late st Contact Info) Description 02/02/2016 10:20 AM CDT - 02/02/2016 11:59 PM CDT Hospital Encounter [facility] [place] [address] [place] [address] Social History Tobacco Use Types Packs/Day Years Used Date Smoking Tobacco: Never Comments Unknown Sex and Gender Information Value Date Recorded Sex Assigned at Not on file 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
--- OUTSIDE RECORDS SUMMARY | 2024-05-22 17:07 | XMS_ITS | Encounter Summary ---
Author Organization [facility] Facility Care Team Providers Care Dropper Tank Storage Name Role Phone Unavailable Primary Care Provider Unavailabl e Encounter Details Date Type Department Care Team (Late st Contact Info) Description 06/30/2014 - 06/30/2014 11:59 PM FRANCHISE SALES REPRESENTATIVE Hospital Encounter [facility] Ty Whitehead MD [address] [id number] Sprain of rotator cuff capsule Social History Tobacco Use Types Packs/Day Years Used Date Smoking Tobacco: Never Comments Unknown Sex and Gender Information Value Date Recorded Sex Assigned at Not on file Legal Sex Female 11:01 PM FRANCHISE SALES REPRESENTATIVE Gender Identity Female 01/31/2021 9:15 AM CDT [...] Name Priority Date/Time Associated Diagnosis Comments US EXTREMITY COMPLETE Routine 06/30/2014 3:12 PM FRANCHISE SALES REPRESENTATIVE documented in this encounter Results * US Extremity Complete (06/30/2014 3:12 PM FRANCHISE SALES REPRESENTATIVE) Anatomical Region Laterality Modality Extremity N/A Ultrasound 06/30/2014 3:12 PM FRANCHISE SALES REPRESENTATIVE Narrative 06/30/2014 5:01 PM FRANCHISE SALES REPRESENTATIVE SHAHLA SAINZ M.D. FINAL REPORT ACC# ??Date Time ??Exam [id number] Jun 30, 2014 15:12:00 [id number] Extrm Sono Shoulder R EXAMINATION: ?Extremity sonogram shoulder. HISTORY: ??63-year-old female with right shoulder pain. FINDINGS: ?? Right shoulder: The biceps tendon is intact and located within the groove. No tendon sheath or subdeltoid bursal effusion. The subscapularis tendon is intact. The posterior cuff was difficult to visualize due to the patient's body habitus. In the more anterior aspect there appears to be an extensive deep sided partial thickness tear with a length of 10 mm, a thickness of 4 mm, and a width of 10 mm. This begins at approximately 7 mm from the intra-articular portion of the biceps tendon. There is no fatty infiltration of the supraspinatus, infraspinatus, or teres minor muscles. IMPRESSION: ?? Deep sided partial thickness tear in the more anterior aspect of the cuff as described above. Requested By: TY TUBBS M.D. Dictated By: ?? SHAHLA SAINZ M.D. ??on Jun 30 2014 ??5:01P This document has been electronically signed by: SHAHLA SAINZ M.D. on Jun 30 2014 ??5:01P Procedure Note Provider, MD Arley - 09/10/2016 SHAHLA SAINZ M.D. FINAL REPORT ACC# Date Time Exam [id number] Jun 30, 2014 15:12:00 [id number] Extrm Sono Shoulder R EXAMINATION: Extremity sonogram shoulder. HISTORY: 63-year-old female with right shoulder pain. FINDINGS: Right shoulder: The biceps tendon is intact and located within the groove. No tendon sheath or subdeltoid bursal effusion. The subscapularis tendon is intact. The posterior cuff was difficult to visualize due to the patient's body habitus. In the more anterior aspect there appears to be an extensive deep sided partial thickness tear with a length of 10 mm, a thickness of 4 mm, and a width of 10 mm. This begins at approximately 7 mm from the intra-articular portion of the biceps tendon. There is no fatty infiltration of the supraspinatus, infraspinatus, or teres minor muscles. IMPRESSION: Deep sided partial thickness tear in the more anterior aspect of the cuff as described above. Requested By: TY TUBBS M.D. Dictated By: SHAHLA SAINZ M.D. on Jun 30 2014 5:01P This document has been electronically signed by: SHAHLA SAINZ M.D. on Jun 30 2014 5:01P us Historical Provider MD [place] US PROCEDURES Final R esult documented in this encounter Visit Diagnoses Diagnosis Sprain of rotator cuff capsule Rotator cuff (capsule) sprain and strain documented in this encounter
--- OUTSIDE RECORDS SUMMARY | 2024-05-22 17:07 | XMS_ITS | Encounter Summary ---
Author Organization [facility] Address [address] [place] [address] Phone Care Team Providers Care Operations Recruiter Name Role Phone Eldon Koehler MD Primary Care Provider + Reason for Referral * Diagnostic Imaging (Routine) - Closed Specialty Diagnoses / Procedures Referred By Carmen t Referred To Contact Diagnoses Status post reverse arthroplasty of right shoulder Procedures XR Shoulder Right 2 or More Views Salomón Edmondson MD [address] [facility] [address] [address] Phone: tel: fax: [facility] [address] [place] [address] Referral ID Status Reason Start Date Expiration Date Visits Re quested Visits Authorized [id number] Closed 01/08/2021 02/07/2022 1 1 Encounter Details Date Type Department Care Team (Late st Contact Info) Description 01/08/2021 Orders Only [facility] Orthopaedic Surgery [address] [facility] 12th [place] [address] [place] [phone] Salomón Edmondson MD [address] [facility] [address] [place] [address] Status post reverse arthroplasty of right shoulder [...] on file 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 Redemonstrated reverse etme-hbq-yzghmu right total shoulder arthroplasty in near anatomic position. Minimally displaced lesser tuberosity osteotomy. No periprosthetic lucency or periprosthetic fracture. Distal clavicle excision is again noted. Procedure Note Td Dooley MD PhD - 01/09/2021 EXAMINATION: XR SHOULDER RIGHT 2 OR MORE VIEWS HISTORY: Right shoulder pain COMPARISON: 12/26/20. FINDINGS: 4 views of the right shoulder are submitted for evaluation with comparison 12/26/2020. Redemonstrated reverse zsao-zyn-zuopoj right total shoulder arthroplasty in near anatomic [...] shoulder documented in this encounter Care Teams Operations Recruiter Relationship Specialty Start Date End Date Eldon Koehler MD [address] [place] [address] PCP - General Internal Medicine 08/04/20 documented as of this encounter
--- OUTSIDE RECORDS SUMMARY | 2024-05-22 17:07 | XMS_ITS | Encounter Summary ---
Author Organization [facility] Address [address] [place] [address] Care Team Providers Care Video Game Tester Name Role Phone Eldon Koehler MD Primary Care Provider + Reason for Visit * Diagnostic Imaging (Routine) - Closed Specialty Diagnoses / Procedures Referred By Contac t Referred To Contact Diagnoses Acute pain of right shoulder Procedures XR Shoulder Right 2+ [place] [address] [place] [address] Phone: tel: fax: Referral ID Status Reason Start Date Expiration Date Visits Re quested Visits Authorized [id number] Closed 08/22/2020 09/21/2021 1 1 Encounter Details Date Type Department Care Team (Latest Contact Info) Description 08/22/2020 10:03 AM CDT - 08/22/2020 11:59 PM CDT Hospital Encounter [facility] [address] [place] [address] [place] [address] [place] [address] [place] [address] [place] [address] Discharge Disposition: Discharge to home or self care Social History Tobacco Use Types Packs/Day Years Used Date Smoking Tobacco: Never Comments Unknown Sex and Gender Information Value Date Recorded Sex Assigned at Not on file 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 Gender Identity Female 01/31/2021 9:15 AM CDT Sexual Orientation Straight 08/21/2020 10 :14 AM CDT documented as of this encounter Medications at Time of Discharge albuterol HFA (PROVENTIL HFA,VENTOLIN HFA,PROAIR HFA) 90 mcg/actuation inhalerIndicatio ns:Acute Asthma Attack Inhale 2 puffs 4 (four) times a day as needed 05/08/2018 atorvastatin (LIPITOR) 20 mg tablet Take 20 mg by mouth every morning 05/12/2005 buPROPion SR (WELLBUTRIN SR) 150 mg 12 hr tablet Take 150 mg by mouth nightly 07/01/2020 cyclobenzaprine (FLEXERIL) 10 mg tablet Take 10 mg by mouth as needed for muscle spasms 05/22/[address] (CYMBALTA) 60 mg capsule Take 60 mg by mouth every morning 06/22/2010 levothyroxine (SYNTHROID) 150 mcg tablet Take 150 mcg by mouth comb fixer before breakfast 01/21/2020 metoprolol XL (TOPROL-XL) 25 mg extended release tabletIndication s:hypertension Take 25 mg by mouth every morning 07/04/2020 omeprazole (PriLOSEC) 20 mg capsule Take 20 mg by mouth every morning 11/28/2004 pregabalin (LYRICA) 50 mg capsuleIndicatio ns:Restless Legs Syndrome Take 50 mg by mouth 2 (two) times a day 07/04/2020 rOPINIRole (REQUIP) 2 mg tabletIndication s:Restless Legs Syndrome Take 2 mg by mouth nightly 06/15/2012 polyethylene glycol-electroly alber 420 gram solution 08/02/2020 1 documented as of this encounter Discharge Disposition Disposition Code Departure Means Destination Discharge to home or self care documented in this encounter Plan of Treatment Not on file documented as of this encounter Procedures Procedure Name Priority Date/Time Associated Diagnosis Comments XR SHOULDER RIGHT 2 OR MORE VIEWS Schedule Routine, Read Routine (OP Routine) 08/22/2020 10:11 AM CDT Acute pain of right shoulder documented in this encounter Results * XR Shoulder Right 2+ View (08/22/2020 10:11 AM CDT) Anatomical Region Laterality Modality Upper Extremities, Shoulder Right Comp uted Radiography 08/22/2020 10:2 0 AM CDT Impressions 08/22/2020 10:20 AM CDT 1. Sequela of prior right rotator cuff repair. 2. Mild glenohumeral joint osteoarthritis. Electronically signed by: Tash Green M.D. Narrative 08/22/2020 10:20 AM CDT EXAMINATION: XR SHOULDER RIGHT 2 OR MORE VIEWS HISTORY: right shoulder pain COMPARISON: 01/18/2016 FINDINGS: 4 radiographs of the right shoulder submitted for interpretation. There is superior migration of the humeral head with remodeling of the undersurface of the acromion, from prior rotator cuff tear. Suture anchors are seen in the humeral head, related to prior rotator cuff repair. There are sequela of distal clavicle excision and acromioplasty. There is mild glenohumeral joint osteoarthritis. Procedure Note Tash Green MD - 08/22/2020 EXAMINATION: XR SHOULDER RIGHT 2 OR MORE VIEWS HISTORY: right shoulder pain COMPARISON: 01/18/2016 FINDINGS: 4 radiographs of the right shoulder submitted for interpretation. There is superior migration of the humeral head with remodeling of the undersurface of the acromion, from prior rotator cuff tear. Suture anchors are seen in the humeral head, related to prior rotator cuff repair. There are sequela of distal clavicle excision and acromioplasty. There is mild glenohumeral joint osteoarthritis. IMPRESSION: 1. Sequela of prior right rotator cuff repair. 2. Mild glenohumeral joint osteoarthritis. Electronically signed by: Tash Green M.D. Micky MAGANA IMG XR PROCEDURES Final Result documented in this encounter Visit Diagnoses Not on filedocumented in this encounter Care Teams Video Game Tester Relationship Specialty Start Date End Date Eldon Koehler MD [address] [place] [address] PCP - General Internal Medicine 08/04/20 documented as of this encounter
--- OUTSIDE RECORDS SUMMARY | 2024-05-22 17:07 | XMS_ITS | Encounter Summary ---
Author Organization [facility] Facility Care Team Providers Care Striper Machine Name Role Phone Unavailable Primary Care Provider Unavailabl e Encounter Details Date Type Department Care Team (Late st Contact Info) Description 01/18/2016 11:00 AM CDT - 01/18/2016 11:59 PM CDT Hospital Encounter [facility] Salomón Schmid MD [address] [facility] [address] [place] [address] Jose Malone RN [address] [facility] [address] [place] [address] Osteoarthritis Social History Tobacco Use Types Packs/Day Years Used Date Smoking Tobacco: Never Comments Unknown Sex and Gender Information Value Date Recorded Sex Assigned at Not on file Legal Sex Female 11:01 PM REGULATORY COORDINATOR Gender Identity Female 01/31/2021 9:15 AM CDT [...] Diagnosis Comments XR SHOULDER 2+ VW Routine 01/18/2016 11: 28 AM CDT documented in this encounter Results * XR Shoulder 2+ Vw (01/18/2016 11:28 AM CDT) Anatomical Region Laterality Modality Shoulder N/A Radiographic Vaishali ging 01/18/2016 11:2 8 AM CDT Narrative 01/18/2016 11:48 AM CDT ROMINA ROBLES M.D. FINAL REPORT ACC# ??Date Time ??Exam [id number] Jan 18, 2016 11:28:00 [id number] Shoulder min 2 views Rt EXAMINATION: ?? 1. Right shoulder minimum 2 views HISTORY: Right shoulder osteoarthritis FINDINGS: Four view submitted with comparison 06/23/2014. There are no acute fractures. There is mild glenohumeral and moderate acromioclavicular joint osteoarthritis. There is calcification overlying the posterior greater trochanter may represent calcific tendinitis of the infraspinatus. IMPRESSION: ?? 1. Unchanged mild right glenohumeral and moderate acromioclavicular joint osteoarthritis. 2. Possible right infraspinatus calcific tendinitis. Requested By: JOSE MALONE Dictated By: ?? ROMINA ROBLES M.D. ??on Jan ??2015 11:48A This document has been electronically signed by: ROMINA ROBLES M.D. on Jan ??2015 11:48A [id number] Procedure Note Provider, MD Arley - 09/10/2016 ROMINA ROBLES M.D. FINAL REPORT ACC# Date Time Exam [id number] Jan 18, 2016 11:28:00 [id number] Shoulder min 2 views Rt EXAMINATION: 1. Right shoulder minimum 2 views HISTORY: Right shoulder osteoarthritis FINDINGS: Four view submitted with comparison 06/23/2014. There are no acute fractures. There is mild glenohumeral and moderate acromioclavicular joint osteoarthritis. There is calcification overlying the posterior greater trochanter may represent calcific tendinitis of the infraspinatus. IMPRESSION: 1. Unchanged mild right glenohumeral and moderate acromioclavicular joint osteoarthritis. 2. Possible right infraspinatus calcific tendinitis. Requested By: JOSE MALONE ANP Dictated By: ROMINA ROBLES M.D. on Jan 18 2016 11:48A This document has been electronically signed by: ROMINA ROBLES M.D. on Jan 18 2016 11:48A [id number] us Historical Provider MD [place]ORENCE XR PROCEDURES Final R esult documented in this encounter Visit Diagnoses Diagnosis Osteoarthritis Osteoarthrosis, unspecified whether generalized or localized, unspecified site documented in this encounter
--- OUTSIDE RECORDS SUMMARY | 2024-05-22 17:07 | XMS_ITS | Clinical Summary ---
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/2003 Hyperlipemia 06/07/2003 Surgical History Surgery Date Site/Laterality Comments SHOULDER ARTHROPLASTY 05/12/2016 - 05/11/2017 Right REPLACEMENT TOTAL KNEE BILATERAL 2013, 2015 SPINAL FUSION 2001, 1991 CHOLECYSTECTOMY 05/12/1997 - 05/11/1998 LAPAROSCOPIC GASTRIC BYPASS 05/12/2017 - 05/11/2018 Medical History Medical History Date Comments Sleep apnea Fibromyalgia GERD (gastroesophageal reflux disease) Asthma Family History Medical History Relation Name Comments PONV Brother Mental illness Daughter Chronic menta l illness - (Added by TW Conv) Alcohol abuse Father Family history of alcoholism - (Added by TW Conv) Arthritis Father Family history of arthritis - (Added by TW Conv) Stroke Father Family history of cerebrovascular accident - (Added by TW Conv) Arthritis Mother Family history of arthritis - (Added by TW Conv) Cancer Mother Family history of malignant neoplasm - (Added by TW Conv) Mental illness Son Chronic menta l illness - (Added by TW Conv) Relation Name Status Comments Brother Daughter Father Mother Son Social History Tobacco Use Types Packs/Day Years [...] on file 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 Gender Identity Female 01/31/2021 9:15 AM CDT Sexual Orientation Straight 08/21/2020 10 :14 AM CDT Obstetrics History Last Filed Vital Signs Vital Sign Reading [...] on file Medical Devices Implanted Type Area Inspector Golf Ball Device Identifier Shelf Expiration Date Model / Serial / Lot Legal Shine [id number] Aequalis 29mm Reverse Long Post Shoulder Baseplate Glenoid Sequeira - [id number] - [id number] Implanted:Qty: 1 on 11/02/2020 by Salomón Edmondson MD at [facility] [employer] [id number] 12/04/2022 [id number] / [id number] / [employer] [id number] 36mm Reverse Ii Center Shoulder Sphere Glenoid Titanium - [id number] - [id number] Implanted:Qty: 1 on 11/02/2020 by Salomón Edmondson MD at [facility] [employer] [id number] 05/03/2024 [id number] / [id number] / Legal Shine [id number] Aequalis Reversed 4.5mm 20mm Compression Glenoid Screw Baseplate - [id number] Implanted:Qty: 1 on 11/02/2020 by Salomón Edmondson MD at [facility] [employer] [id number] / / 0 Legal Shine [id number] Aequalis Reversed 4.5mm 23mm Compression Glenoid Screw Baseplate - [id number] Implanted:Qty: 1 on 11/02/2020 by Salomón Edmondson MD at [facility] [employer] [id number] / / 0 [employer] [id number] Aequalis 4.5mm 38mm Lock Multidirectional Self Tap Shoulder Screw Latex Free - [id number] Implanted:Qty: 1 on 11/02/2020 by Salomón Edmondson MD at [facility] [employer] [facility] [id number] / / 0 [employer] [id number] Screw Bsplt 41mm 4.5mm Aequalis Shoulder Ti Lock - [id number] Implanted:Qty: 1 on 11/02/2020 by Salomón Edmondson MD at [facility] [employer] [facility] [id number] / / 0 [employer] [id number] Insert Perform 10 Deg [id number] - [id number] Implanted:Qty: 1 on 11/02/2020 by Salomón Edmondson MD at [facility] [employer] [facility] [id number] / / [id number] [employer] [facility] [id number] Stem Perform Sz 2 Plus Humeral - [id number] Implanted:Qty: 1 on 11/02/2020 by Salomón Edmondson MD at [facility] [employer] [facility] [id number] / / [id number] [place] [address] [facility] MEDICARE [facility] MEDIC[facility] MEDICARE Advance Directives For more information, please contact: [phone] * Full Code (Latest Code Status on File) Date Activated Date Inactivated Comments 11/02/2020 6:21 PM 11/03/2020 7:12 PM Care Teams Commercial Real Estate Manager Relationship Specialty Start Date End Date Eldon Koehler MD [address] [place] [id number] PCP - General Internal Medicine 08/04/20
--- OUTSIDE RECORDS SUMMARY | 2024-05-22 17:07 | XMS_ITS | Encounter Summary ---
Author Organization [facility] Address [address] [place] [address] Phone Care Team Providers Care Leasing Coordinator Name Role Phone Eldon Koehler MD Primary Care Provider + Reason for Referral * Diagnostic Imaging (Routine) - Closed Specialty Diagnoses / Procedures Referred By Carmen villalobos Referred To Contact Diagnoses Acute pain of right shoulder Procedures XR Shoulder Right 2+ [place] [address] [place] [address] Phone: tel: fax: Referral ID Status Reason Start Date Expiration Date Visits Re quested Visits Authorized [id number] Closed 08/22/2020 09/21/2021 1 1 Reason for Visit * Reason Comments Pain Encounter Details Date Type Department Care Team (Late st Contact Info) Description 08/22/2020 10:00 AM CDT Office Visit [facility] [address] [place] [address] [place] [address] [place] [address] Rotator cuff arthropathy of right shoulder (Primary Dx); Acute pain of right shoulder Social History Tobacco Use Types Packs/Day Years Used Date Smoking Tobacco: Never Comments Unknown Sex and Gender Information Value Date Recorded Sex Assigned at Not on file 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 Rotator cuff arthropathy of right shoulder 2. Acute pain of right shoulder RECOMMENDATIONS: 1. Maintain gentle range of motion exercises for the right shoulder. 2. Avoid heavy lifting avoid activities above shoulder level. 3. Continue with her current medication per your physician. 4. I will assist you in getting in to see Dr. Edmondson for further evaluation and discussion regarding a reverse total shoulder. If your symptoms worsen, please reach your provider through the office at . If you need to reschedule your appointment, please call [phone]. Vandana Bolton PA-C [facility] Working in collaborative practice with Juwan Barnhart M.D. documented in this encounter Progress Notes * Micky Bolton PA - 08/22/2020 10:00 AM CDT NEW PATIENT VISIT [facility] CHIEF COMPLAINT Right dominant shoulder pain REFERRING PROVIDER Eldon Koehler MD HISTORY OF PRESENT ILLNESS Winifred Vallejo is a 70 y.o. who presents to the orthopedic clinic with a several year history of recurrent right shoulder complaints. She reviews are history of having undergone an open right shoulder rotator cuff repair in 2018 by an outside physician. She recalls doing fairly well for a year to and then re- injured her right shoulder while moving. She believes the re-injury was read just prior to the COVID outbreak in early 2019. She was seen by the orthopedist and a reverse total shoulder wasdiscussed. She decided not to go forward with that procedure at that time. She feels like her symptoms have worsened. Especially over the last 1-3 months. She describes a rather constant aching sensation in the right shoulder with sharp burning pain with attempts of using the right shoulder and upper extremity. She is able to get relief by keeping the arm close to her side. She takes Celebrex andLyrica on a regular basis. She reviews the fact she has tried multiple different treatment options for the shoulder over the last several years including physical therapy anti- inflammatory medicationand cortisone injections. None of these have provided adequate relief. She denies any cervical or radicular pain. PAST MEDICAL HISTORY She has no past medical history on file. PAST SURGICAL HISTORY She has no past surgical history on file. INITIAL REVIEW OF MEDICATIONS She has a current medication list which includes the following prescription(s): albuterol hfa, atorvastatin, bupropion sr, cyclobenzaprine, duloxetine dr, levothyroxine, omeprazole, ropinirole, metoprolol xl, polyethylene glycol- electrolytes, and pregabalin. ALLERGIES She is allergic to clindamycin; codeine; [...] father. REVIEW OF SYSTEMS Review of Systems has been reviewed. PHYSICAL EXAMINATION CONSTITUTIONAL: Well-appearing, in no apparent distress HEENT: Normocephalic. EOMI. No scleral icterus or conjunctival hemorrhage. Hearing is intact to spoken word. CARDIOVASCULAR: Skin warm and well-perfused, no peripheral edema RESPIRATORY: Breathing unlabored without accessory muscle use PSYCHIATRIC: Alert, cooperative, appropriate mood and affect SKIN: Intact. No lesions or rashes on exposed skin. MUSCULOSKELETAL: The right shoulder is without obvious swelling ecchymosis or deformity. She has mild tenderness are anteriorly and laterally in the right shoulder. She has cautious incomplete range of motion actively as she forward elevates to 80??. She abducts to 80??. She externally rotates withher arm at her side to 40??. She internally rotates to her back pocket. She has pain and weakness associated with rotator cuff testing with a positive Willian's test. She has pain and some weakness associated with belly press. She has 4-5 strength of infraspinatus testing. She has positive impingementsigns to Neer and Jerry. She has pain associated with biceps provocation signs. She has mildly positive lag sign. NEUROLOGIC: Sensation is intact to light touch in the involved extremity. VASCULAR: Brisk capillary refill intact distally in the involved extremity. REVIEW OF IMAGING/STUDIES X-rays ordered and interpreted by myself in the office today including four views right shoulder AP, true AP, axial lateral, transscapular lateral shows changes consistent with rotator cuff arthropathy with a high-riding humeral head and irregularity of the undersurface of the acromion. There is xcrr-fs-zewahqzg degenerative changes of the glenohumeral joint. There is a prior distal clavicle resection noted. Metallic suture anchors are well positioned in the humeral head. IMPRESSION/DIAGNOSIS Right shoulder rotator cuff arthropathy with failed rotator cuff repair TREATMENT/PLAN I spoke at length the patient today regarding her chronic recurrent right shoulder condition. I reviewed all possible treatment options including non operative treatment with anti-inflammatory medication physical therapy versus a cortisone injection versus surgical options including a reverse shoulder replacement. She would like to consider surgical options as she feels like she has failed all other treatment options. I will assist her in getting in to see Dr. Edmondson to discuss the possibility of a reverse total shoulder arthroplasty for the right shoulder. The patient is in agreement with above treatment plan and all questions are answered today. Vandana Bolton PA-C [facility] Working in collaboration with Juwan Barnhart MD Portions of this note were dictated using [employer] Fluency Direct speech recognition software. Please excuse any sociology faculty member errors. documented in this encounter Plan of Treatment [...] Result documented in this encounter Visit Diagnoses Diagnosis Rotator cuff arthropathy of right shoulder- Primary Acute pain of right shoulder documented in this encounter Discontinued Medications Medication Sig Discontinue Reason Start Date End Da te aspirin 81 mg chewable tablet 07/23/2020 08/22/2020 celecoxib (CeleBREX) 200 mg capsule TAKE 1 CAPSULE BY MOUTH TWO TIMES DAILY 10/29/2008 08/22/2020 documented as of this encounter Historical Medications * This list may reflect changes made after this encounter. albuterol HFA (PROVENTIL HFA,VENTOLIN HFA,PROAIR HFA) 90 [...] mcg tablet Take 150 mcg by mouth director of early childhood education before breakfast 01/21/2020 metoprolol XL (TOPROL-XL) 25 [...] by mouth nightly 06/15/2012 aspirin 81 mg chewable tablet 07/23/2020 1 celecoxib (CeleBREX) 200 mg capsule TAKE 1 CAPSULE BY MOUTH TWO TIMES DAILY 10/29/2008 1 polyethylene glycol-electroly alber 420 gram solution 08/02/2020 1 added in this encounter Care Teams Leasing Coordinator Relationship Specialty Start Date End Date Eldon Koehler MD [address] [facility] [place] [address] PCP - General Internal Medicine 08/04/20 documented as of this encounter
--- OUTSIDE RECORDS SUMMARY | 2024-05-22 17:07 | XMS_ITS | Encounter Summary ---
Author Organization [facility] Address [address] [place] [address] Care Team Providers Care Motocross Racer Name Role Phone Eldon Koehler MD Primary Care Provider + Reason for Referral * Diagnostic Imaging (Routine) - Closed Specialty Diagnoses / Procedures Referred By Maritzaac t Referred To Contact Diagnoses Status post reverse arthroplasty of right shoulder Procedures XR Shoulder Right 2+ View Salomón Edmondson MD [address] [facility] [address] [place] [address] Phone: tel: fax: [address] [address] Referral ID Status Reason Start Date Expiration Date Visits Re quested Visits Authorized [id number] Closed 11/07/2020 12/07/2021 1 1 Reason for Visit * Diagnostic Imaging (Routine) - Closed Specialty Diagnoses / Procedures Referred By Contac t Referred To Contact Diagnoses Status post reverse arthroplasty of right shoulder Procedures XR Shoulder Right 2+ View Salomón Edmondson MD [address] [facility] [place] [address] Phone: tel: fax: [address] [address] Referral ID Status Reason Start Date Expiration Date Visits Re quested Visits Authorized [id number] Closed 11/07/2020 12/07/2021 1 1 Encounter Details Date Type Department Care Team (Latest Contact Info) Description 11/14/2020 9:09 AM CDT - 11/14/2020 11:59 PM CDT Hospital Encounter [facility] [address] [place] [address] Salomón Edmondson MD [address] [facility] [address] [place] [address] Status post reverse arthroplasty of right shoulder [...] on file 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 Gender Identity Female 01/31/2021 9:15 AM CDT [...] needed 05/08/2018 aspirin 81 mg enteric coated tabletIndications:De ep Vein Thrombosis Prevention Take 1 tablet (81 [...] mcg tablet Take 150 mcg by mouth early childhood aide classroom before breakfast 01/21/2020 metoprolol XL (TOPROL-XL) 25 [...] VIEWS Schedule Routine, Read Routine (OP Routine) 11/14/2020 9:23 AM CDT Status post reverse arthroplasty of right shoulder documented in this encounter Results * XR Shoulder Right 2+ View (11/14/2020 9:23 AM CDT) Anatomical Region Laterality Modality Upper Extremities, Shoulder Right Comp uted Radiography 11/14/2020 10:4 2 AM CDT Impressions 11/14/2020 10:43 AM CDT Reverse ulqv-ien-anlfra total right glenohumeral arthroplasty with decreased persistent [...] tissue gas. Orthopedic components of the reverse bwgy-wrs-iwxpvv total right glenohumeral arthroplasty are in expected [...] tissue gas. Orthopedic components of the reverse kgxt-ewq-nnoakk total right glenohumeral arthroplasty are in expected near-anatomic position. There is no periprosthetic fracture. There is unchanged resection of the distal clavicle. IMPRESSION: Reverse rjcl-khs-vllrkq total right glenohumeral arthroplasty with decreased persistent soft tissue gas and interval removal of drain. Dictated by: Mariusz Molina MD The radiology attending physician has personally reviewed this study, and had reviewed and/or edited this written report and agrees with it. Electronically signed by: Doyle Cid MD, PHD Salomón Edmondson MD IMG XR PROCEDURES Final Re sult documented in this encounter Visit Diagnoses Diagnosis Status post reverse arthroplasty of right shoulder documented in this encounter Care Teams Motocross Racer Relationship Specialty Start Date End Date Eldon Koehler MD [address] [place] [address] PCP - General Internal Medicine 08/04/20 documented as of this encounter
--- OUTSIDE RECORDS SUMMARY | 2024-05-22 17:07 | XMS_ITS | Encounter Summary ---
Author Organization [facility] Address [address] [place] [address] Phone Care Team Providers Care Awning Frame Maker Name Role Phone Eldon Koehler MD Primary Care Provider + Reason for Visit * Reason Comments Post-op Encounter Details Date Type Department Care Team (Late st Contact Info) Description 02/06/2021 10:00 AM CDT Office Visit [facility] Orthopaedic Surgery [address] [facility] [address] [address] [place] [address] Salomón Edmondson MD [address] [facility] [address] [place] [address] Status post reverse arthroplasty of right shoulder [...] on file Legal Sex Female 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 Things are improving with her shoulder. She still has mild pain. She has been going to physical therapy. She is out of her sling. OBJECTIVE: Patient is alert and oriented X4. Breathing is nonlabored. Her active elevation today is 130??, external rotation with arm to side is 25-30 degrees. Deltoid fires well. She can reach behind her back to the PSIS level. Distal neurovascular exam is intact RADIOGRAPHS: None ASSESSMENT/PLAN: Doing well a little over 3 months following right reverse shoulder arthroplasty. She can benefit from further physical therapy. Slow progression of activity. Follow-up at her 1 year postop visit Salomón Edmondson MD Professor Chief, Shoulder and Elbow Service [facility] Dr Edmondson dictating via MModal. Manager Materials Management variances may occur. documented in this encounter Plan of Treatment Not on file documented as of this encounter Visit Diagnoses Diagnosis Status post reverse arthroplasty of right shoulder- Primary documented in this encounter Care Teams Awning Frame Maker Relationship Specialty Start Date End Date Eldon Koehler MD [address] [place] [address] PCP - General Internal Medicine 08/04/20 documented as of this encounter
--- OUTSIDE RECORDS SUMMARY | 2024-05-22 17:07 | XMS_ITS | Encounter Summary ---
Author Organization [facility] Healthcare Address [address] [place] [address] Care Team Providers Care Tobacco Educator Name Role Phone Eldon Koehler MD Primary Care Provider + Encounter Details Date Type Department Care Team (Late st Contact Info) Description 11/02/2020 2:00 PM CDT - 11/02/2020 4:50 PM CDT Surgery [facility] Operating Room [address] [place] [address] Salomón Edmondson MD [address] [facility] [address] [place] [address] Right reverse shoulder arthroplasty Surgery Details Date/Time Status Location OR Service Patient Class Case Class Case Type Trauma Case? 11/02/2020 2:00 PM Posted [facility] OPERATING ROOM OR Orthopaedics Surgery Admit Elective Panel 1 Procedure LRB Anes Op Region Wound Class Comments Right reverse shoulder arthroplasty Right Choice Back Class I - Clean Surgeon Surgeon Role Service Panel Salomón Edmondson MD Primary Orthopaedics 1 Bogdan Haas MD Fellow Orthopaedics 1 documented in this encounter Social History Tobacco Use Types Packs/Day Years Used Date Smoking Tobacco: Never Smokeless Tobacco: Never AUDIT-C Answer Date Recorded Q1: How often do you have a drink containing alc ohol? Never 11/02/2020 Average Number of Drinks Not on file Q3: How often do you have si x or more drinks on one occasion? 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 Gender Identity Female 01/31/2021 9:15 AM CDT Sexual Orientation Straight 08/21/2020 10 :14 AM CDT documented as of this encounter Last Filed Vital Signs Vital Sign Reading Time Taken Comments Blood Pressure 150/70 11/02/2020 2:25 PM CDT Pulse 80 11/02/2020 2:20 PM CDT Temperature - - Respiratory Rate 14 11/02/2020 2:20 PM CDT Oxygen Saturation 98% 11/02/2020 2:20 PM CDT Inhaled Oxygen Concentration - - Weight - - Height - - Body Mass Index - - documented in this encounter Discharge Summaries * Harriet Reilly NP - 11/03/2020 7:37 AM CDT Inpatient Orthopedic Shoulder Discharge Summary Admitting Provider: Salomón Edmondson MD Discharge Provider: Salomón Edmondson MD Primary Care Physician at Discharge: Eldon Koehler MD [phone] Admission Date: 11/02/2020 Discharge Date: 11/03/2020 Primary [...] year old female cared for by Dr. Salomón Edmondson. The patient was seen by the [...] Discharge Medications: Winifred Vallejo Home Medication Instructions RONAN:[id number] Printed on:11/03/20 0738 Medication Information acetaminophen 500 mg capsule Take [...] mcg tablet Take 150 mcg by mouth extruding press adjuster before breakfast metoprolol XL (TOPROL-XL) 25 mg [...] your doctor. ??? Remove white fluffy dressing and you may shower at that time. [...] instructions provided by the PAIN Team. Call [phone] and ask for the PAIN Team for questions or concerns regarding your nerve catheter. ??? MAY resume home medication of 81mg Aspirin daily AFTER you are finished with the prescription for 81mg Aspirin twice a day for 2 weeks. Medications ??? Do not drive while taking narcotic pain medications (examples: Percocet, Oxycodone, Hydrocodone, Warwick). ??? Percocet and Warwick contain acetaminophen/Tylenol. Do not exceed 4 grams [...] take Tylenol (acetaminophen) if you are taking Warwick (hydrocodone/acetaminophen) or Percocet (oxycodone/acetaminophen) as these medications [...] appointment on 11/14 at 915 at the [facility] ([facility]), [address] [place] [address], 2nd Floor [address], [place] [address]. Please call to confirm your appointment.. ??? We prefer you call us directly rather than go to your local hospital or clinic. We will be happy to answer any questions or concerns you may have. During regular office hours, please call if you are being seen at the [facility] or [facility] offices or if you are being seen at the [facility] office. If [...] mcg tablet Take 150 mcg by mouth extruding press adjuster before breakfast 01/21/2020 metoprolol XL (TOPROL-XL) 25 [...] (Active) Site Description Color appropriate for ethnicity 11/03/20 0500 Dressing Status New;Clean, dry, intact 11/03/20 0500 Drainage Appearance Bright red 11/02/202029 Status To [place] 11/03/20499 Securement Method Securement device 11/02/202029 Drain output (mL) 5 mL 11/03/20 0240 Net Output (mL) 5 mL 11/03/20 0240 Surgical Site 11/02/20 Right Shoulder (Active) Site [...] Surgery Clinical Fellow Shoulder & Elbow Division [facility] Orthopedics [phone] * Bernadette Beauchamp, [facility] - 11/02/2020 12:00 PM CDT Pre-Operative Cefazolin Dosing Cefazolin Indication Patient Weight Dose Surgical Prophylaxis, Preoperative <120 kg 2000 mg >/= 120 kg 3000 mg References: 2016 ASHP/IDSA/SIS/VOSS Guidelines for Antimicrobial Prophylaxis in Surgery BJ Toolbook/Tavon, last reviewed 04/21/18 Approved by ASP 05/21/18, Approved by P&T 06/18/18, Approved by [facility] 07/01/18 documented in this encounter H&P [...] and Planning Preoperative Evaluation Record Evaluation type/location: CPAP [facility] Planned procedure site: [facility] OR Date: 10/30/20 Anesthesia Evaluation Winifred Vallejo [...] Cardiovascular Pertinent negatives: hypertension ; CAD ; MD ; CABG ; valvular heart disease; valve [...] severely immunocompromised per the criteria in the [facility] Pre-Procedure COVID-19 Testing Update for Fully Vaccinated Patients. Patient states that they are fully vaccinated and provided the following vaccination information: Plastic Parts Fabricator Trimmer pfizer , Vaccination Date(s)07/07/20, 08/08/20. COVID Vaccination Record [...] in place. Please call the CPAP attending ([phone]) with any questions. Preoperative evaluation performed by [...] Surgical History: Procedure Laterality Date ??? CHOLECYSTECTOMY 1998 ??? LAPAROSCOPIC GASTRIC BYPASS 2018 ??? REPLACEMENT TOTAL KNEE BILATERAL 2014, 2016 ??? SHOULDER ARTHROPLASTY Right 2017 ??? SPINAL FUSION 2001, 1992 OB History No obstetric history on file. [...] 07/30/2020 05/22/20 -- Arley Russo MD DULoxetine DR (CYMBALTA) 60 mg capsule 10/30/2020 06/22/10 -- [...] Medication protocol when under care of a BRICK CHIMNEY BUILDER Planned anesthesia: General, regional for postop pain [...] Pickard OT - 11/03/2020 9:[address] [facility] Occupational Therapy Evaluation Patient Name: Winifred Vallejo Date of Service: 11/03/2020 Date of : 1950 Age: 70 y.o.female [id number] Admit Date: 11/02/2020 Attending Provider: Salomón Edmondson [...] use device at baseline Home ADL Equipment: Machine Biller Level of [place]: Independent with ADLs, Independent with transfers and [...] home for all mobility tasks. Patient has 24/7 support and assist from and adult daughter. [...] Operative Procedure ATTENDING: Salomón Edmondson MD FIRST CLASS A LINEMAN: Bogdan Haas MD ANESTHESIA: General and Regional [...] of 20- 25 degrees relative to the [place] glenoid face. A guide pin was placed at this angle. The glenoid face was reamed to a flat surface exposing some inferior trabecular bone. Reaming was performed until there hol335-74% baseplate support. Remaining peripheral soft tissue was cleared and the wound was irrigated. The central tunnel for the Rev2 baseplate was drilled. We fashioned the BIORSA graft to match the glenoid mary defect which was deepest in the superior quadrant. The graft was circular shaped, roughly 80% of a complete nondalton. The 29 mm Rev2 baseplate with a [...] and the humerus was prepared according to [facility] instrumentation. We chose the size 2 [...] procedure, from opening to closure, as a first aid officer. The assistance of the first aid officer surgeon was required as total shoulder replacement [...] MD Professor Chief, Shoulder and Elbow Service [facility] documented in this encounter Plan of [...] Edmondson MD LAB BLOOD ORDERABLES Final Result [facility] [address] [facility]. Department [place] [address] * (ABNORMAL) Differential, auto (11/03/2020 2:51 AM CDT) Neutrophil abs 15.0(H) 1.7 - 6.5 K/cumm [facility] Imm gran abs 0.1 0.0 - 0.1 K/cumm [facility] Lymphocyte abs 1.0 0.8 - 3.3 K/cumm [facility] Monocyte abs 0.7 0.2 - 0.8 K/cumm [facility] Eosinophil abs 0.0 0.0 - 0.5 K/cumm [facility] Basophil abs 0.0 0.0 - 0.1 K/cumm [facility] Neutrophil pct 89.5 % [facility] Comment: Interpretive Data Percent cell count reference ranges are not reported, since discordance with absolute values may lead to misinterpretation of CBC data. Current Interpretive Data was last revised on 2017. Imm gran pct 0.5 % [facility] Comment: Interpretive Data Percent cell count reference ranges are not reported, since discordance with absolute values may lead to misinterpretation of CBC data. Current Interpretive Data was last revised on 2017. Lymphocyte pct 5.7 % [facility] Comment: Interpretive Data Percent cell count reference ranges are not reported, since discordance with absolute values may lead to misinterpretation of CBC data. Current Interpretive Data was last revised on 2017. Monocyte pct 4.1 % [facility] Comment: Interpretive Data Percent cell count reference ranges are not reported, since discordance with absolute values may lead to misinterpretation of CBC data. Current Interpretive Data was last revised on 2017. Eosinophil pct 0.0 % [facility] Comment: Interpretive Data Percent cell count reference ranges are not reported, since discordance with absolute values may lead to misinterpretation of CBC data. Current Interpretive Data was last revised on 2017. Basophil pct 0.2 % [facility] Comment: Interpretive Data Percent cell count reference ranges are not reported, since discordance with absolute values may lead to misinterpretation of CBC data. Current Interpretive Data was last revised on 2017. Blood specimen (specimen) 11/03/2020 2:51 AM CDT 11/03/2020 3:13 AM CDT Salomón Edmondson MD LAB BLOOD ORDERABLES Final Result [facility] [address] [facility]. Department [place] [address] * Basic metabolic panel (11/03/2020 2:51 AM CDT) Sodium 136 135 - 145 mmol/L [facility] Potassium, pl 4.6 3.3 - 4.9 mmol/L [facility] Chloride 101 97 - 110 mmol/L [facility] CO2 29 22 - 32 mmol/L [facility] Anion gap 6 2 - 15 mmol/L [facility] BUN 16 8 - 25 mg/dL [facility] Creatinine 0.90 0.60 - 1.10 mg/dL [facility] Glucose 153 70 - 199 mg/dL [facility] Comment: Interpretive Data Fasting glucose >/= 126 [...] 2017. Calcium 9.1 8.5 - 10.3 mg/dL [facility] Blood specimen (specimen) 11/03/2020 2:51 AM CDT 11/03/2020 3:13 AM CDT Narrative [facility] - 11/03/2020 4:26 AM CDT Daily for three days. us Salomón Edmondson MD LAB BLOOD ORDERABLES Final Result [facility] [address] [facility]. Department [place] [address] * (ABNORMAL) CBC with auto differential (11/03/2020 2:51 AM CDT) WBC 16.7(H) 3.8 - 9.9 K/cumm [facility] Hgb 11.7(L) 11.9 - 15.5 g/dL [facility] Hct 37.4 35.6 - 45.5 % [facility] Plt 300 150 - 400 K/cumm [facility] MPV 10.6 9.1 - 12.3 fL [facility] RBC 4.12 3.90 - 5.20 M/cumm [facility] MCV 90.8 81.3 - 96.4 fL [facility] MCH 28.4 27.1 - 33.3 pg [facility] MCHC 31.3(L) 32.3 - 35.7 g/dL [facility] RDW CV 14.3 11.1 - 14.9 % [facility] RDW SD 47.8 35.7 - 48.1 fL [facility] NRBC abs 0.00 0.00 - 0.01 K/cumm [facility] Blood specimen (specimen) 11/03/2020 2:51 AM CDT 11/03/2020 3:13 AM CDT Narrative [facility] - 11/03/2020 3:15 AM CDT Daily for three days. Salomón Edmondson MD LAB BLOOD ORDERABLES Final Result [facility] [address] [facility]. [place] [address] * XR Shoulder Right 2+ View (11/02/2020 5:20 PM CDT) Anatomical Region Laterality Modality Upper Extremities, Shoulder Right Comp uted Radiography 11/03/2020 6:17 AM CDT Impressions 11/03/2020 6:17 AM CDT New reverse qczk-fdp-foqtyj total right glenohumeral arthroplasty in expected position. Electronically signed by: Phil Davis M.D. Narrative 11/03/2020 6:17 AM CDT XR SHOULDER RIGHT 2 OR MORE VIEWS HISTORY: ??Shoulder arthroplasty. FINDINGS: ??2 views of the right shoulder are obtained and compared with 08/22/2020. There is interval reverse ghoz-qaz-xfngio total right glenohumeral arthroplasty. Orthopedic components are [...] compared with 08/22/2020. There is interval reverse lgcs-mkk-jxtkls total right glenohumeral arthroplasty. Orthopedic components are in expected position. There is no periprosthetic fracture. Overlying soft tissue gas and surgical drain is present. There is unchanged prior distal right clavicular resection. IMPRESSION: New reverse ojdb-rnw-ayhexl total right glenohumeral arthroplasty in expected position. Electronically signed by: Phil Davis M.D. Salomón Edmondson MD IMG XR PROCEDURES Final Re sult * ABO / Rh Confirmation Testing (11/02/2020 12:25 PM CDT) ABO/Rh Confirmation O Positive [facility] Blood specimen (specimen) 11/02/2020 12:25 PM CDT 11/02/2020 12:34 PM CDT Salomón Edmondson MD LAB BLOOD ORDERABLES Final Result [facility] [address] [facility] Department [place] [address] documented in this encounter Visit Diagnoses Diagnosis Rotator cuff tear arthropathy of right shoulder- Primary MURIEL on CPAP Rotator cuff tear arthropathy of right shoulder documented in this encounter Admitting Diagnoses Diagnosis [...] Given 11/02/2020 9:14 PM CDT 150 mg ceFAZolin (ANCEF) injection Administer over 3 Minutes, As needed, Starting on Fri11/02/20 at 1349, Intra-Op Given 11/02/2020 1:49 PM CDT 1,000 mg docusate sodium (COLACE) capsule 100 mg [...] intravenous, Continuous, Starting on Fri11/02/20 at 1230, For 4 hours, Pre-Op, Use [...] 11/02/2020 12:31 P M CDT 1,950 mg vancomycin (VANCOCIN) solution As needed, Starting on Suly 11/02/20 at 1349, Intra-Op Given 11/02/2020 1:49 PM CDT 500 mg documented in this encounter Discontinued Medications [...] on Suly 11/02/20 at 2100, Indications: Pain 2113 (Given - Provider: Caorlyne Linares RN) 0254 (Given - Provider: Carolyne [...] Prophylaxis, Surgical 1433 (Given - Provider: Wilfrid Uribe CRNA) docusate sodium (COLACE) capsule 100 mg 100 mg, oral, 2 times daily, First dose on Suly 11/02/20 at 2100, Hold for diarrhea, Indications: constipation [...] 1718 (New Bag - Provider: Deena Lantigua, BENEDICT) Lactated Ringer's (LR) infusion () 30 mL/hr, intravenous, Continuous, Starting on Suly 11/02/20 at 1230, For 4 hours, Pre-Op, Use a 500 ml bag for End Stage Renal Disease Patients. Discontinue if fluid still running once patient arrives to floor. 1408 (New Bag - Provider: Nicole Connell, RN)1428 (Rate/Dose Verify - Provider: Logan Lisa MD)1633 [...] BENEDICT) 0205 (Rate/Dose Verify - Provider: Carolyne Linares, BENEDICT) PRN Medication Order 11/01/2020 11/02/2020 11/03/2020 albuterol HFA (PROVENTIL HFA,VENTOLIN HFA,PROAIR HFA) 90 mcg/actuation inhaler 2 puff 2 puff, inhalation, Every 4 hours PRN (correspondence dictator), wheezing, shortness of breath, Starting on Suly [...] in this encounter Orders Medications Ordered That Subhahs ht Not Have Been Administered Count Last Ordered Date First Ordered Date acetaminophen (TYLENOL) tablet 500 mg 1 albuterol HFA (PROVENTIL HFA ,VENTOLIN HFA,PROAIR HFA) 90 mcg/actuation inhaler 2 puff 1 11/02/2020 ceFAZolin (ANCEF) 1 gram/10 mL in sterile water (premix) 2,000 mg 1 11/02/2020 ceFAZolin (ANCEF) 1 gram/10 mL in sterile water (premix) 3,000 mg 1 11/02/2020 cyclobenzaprine (FLEXERIL) tablet 10 mg [...] chloride 0.9% flush 0.5-20 mL 3 10/11 CORE MEASURES Count Last Ordered Date First Ord ered Date REASON FOR NO VTE PROPHYLAXI S - HOSPITAL ADMISSION - MEDICATIONS 1 11/02/2020 documented in this encounter Care Teams Tobacco Educator Relationship Specialty Start Date End Date Eldon Koehler MD [address] [place] [address] PCP - General Internal Medicine 08/04/20 documented as of this encounter
--- OUTSIDE RECORDS SUMMARY | 2024-05-22 17:07 | XMS_ITS | Encounter Summary ---
Author Organization [facility] Address [address] [place] [address] Care Team Providers Care Lap Checker Name Role Phone Eldon Koehler MD Primary Care Provider + Reason for Referral * MRI/CAT/PET Scan (Routine) - Closed Specialty Diagnoses / Procedures Referred By Contac t Referred To Contact Radiology Diagnoses Rotator cuff tear arthropathy of right shoulder Procedures CT Shoulder Right WO Contrast Salomón Edmondson MD [address] [employer] [facility] [address] [place] [address] Phone: tel: fax: [place] [address] [place] [phone] Referral ID Status Reason Start Date Expiration Date Visits Re quested Visits Authorized [id number] Closed 10/16/2020 11/15/2021 1 1 Reason for Visit * MRI/CAT/PET Scan (Routine) - Closed Specialty Diagnoses / Procedures Referred By Contac t Referred To Contact Radiology Diagnoses Rotator cuff tear arthropathy of right shoulder Procedures CT Shoulder Right WO Contrast Salomón Edmondson MD [address] [employer] [facility] [place] [place] [address] Phone: tel: fax: [place] [phone] [place] [phone] Referral ID Status Reason Start Date Expiration Date Visits Re quested Visits Authorized [id number] Closed 10/16/2020 11/15/2021 1 1 Encounter Details Date Type Department Care Team (Latest Contact Info) Description 10/30/2020 12:29 PM CDT - 10/30/2020 11:59 PM CDT Hospital Encounter [facility] [id number] [address] [place] [id number] Salomón Edmondson MD [address] [facility] [place] [place] [address] Rotator cuff tear arthropathy of right shoulder Discharge Disposition: Discharge to [...] on file 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 Gender Identity Female 01/31/2021 9:15 AM CDT [...] mcg tablet Take 150 mcg by mouth all round logger before breakfast 01/21/2020 metoprolol XL (TOPROL-XL) 25 [...] Take 81 mg by mouth every morning 1 celecoxib (CeleBREX) 200 mg capsuleIndicatio ns:Osteoarthriti s Take 200 mg by mouth 2 (two) times a day 1 documented as of this encounter Discharge Disposition Disposition Code Departure Means Destination Discharge to home or self care documented in this encounter Plan of Treatment Not on file documented as of this encounter Procedures Procedure Name Priority Date/Time Associated Diagnosis Comments CT SHOULDER RIGHT WO CONTRAST Schedule Routine, Read Routine (OP Routine) 10/30/2020 12:38 PM CDT Rotator cuff tear arthropathy of right shoulder documented in this encounter Results * CT Shoulder Right [...] shoulder documented in this encounter Care Teams Lap Checker Relationship Specialty Start Date End Date Eldon Koehler MD [address] [place] [phone] PCP - General Internal Medicine 08/04/20 documented as of this encounter
--- OUTSIDE RECORDS SUMMARY | 2024-05-22 17:09 | XMS_ITS | Clinical Summary ---
Author Organization [facility] Address [address] [place] [address] Phone Care Team Providers Care Cushion Worker Name Role Phone Eldon Koehler MD Primary Care Provider [phone] Medications atorvastatin (LIPITOR) 20 MG Tablet 12/30/2023 Active DULoxetine (CYMBALTA) [address] Particles 12/30/2023 Active levothyroxine (SYNTHROID) 150 MCG Tablet 12/30/2023 Active metoprolol Succinate (TOPROL-XL) 25 MG TABLET SR 24 HR 12/30/2023 Active celecoxib (CeleBREX) 200 MG Capsule 12/30/2023 Active buPROPion SR (WELLBUTRIN SR) 150 MG TABLET SR 12 HR 12/30/2023 Active ezetimibe (ZETIA) 10 MG Tablet 12/12/2023 Active rOPINIRole (REQUIP) 3 MG Tablet Take 3 mg by mouth nightly. Active modafinil (PROVIGIL) 100 MG Tablet Take 100 mg by mouth daily. Active PREGABALIN PO Take by mouth. Active LORazepam (ATIVAN) 0.5 MG Tablet Take 0.5 mg by mouth every 6 hours as needed. Active Social History Tobacco Use Types Packs/Day Years Used Date Smoking Tobacco: Never Assessed Comments Unknown Sex and Gender Information Value Date Recorded Sex Assigned at Not on file Legal Sex Female 11:30 PM CDT Gender Identity Not on file Sexual Orientation Not on file Plan of Treatment Upcoming Encounters Date Type Department Care Team (Late st Contact Info) Description 06/08/2024 10:30 AM PANEL GLUER [facility] [address] [place] [address] Royer Jacobs MD [address] [place] [address] Health Maintenance Due Date Last Done Comments DEXA Bone Density 1950 Hepatitis C Virus (HCV) Screening 1950 Colonoscopy 1997 Colorectal Cancer Screening 1997 Cologuard 2002 Immunochemical Fecal Occult Blood 2002 Mammogram 2002 SARS-COV-2 Immunization ( season) 2024 10/10/2021, 04/06/2021, 07/29/2020, Additional history exists Respiratory Syncytial Virus (RSV) Immunization (Adult) (1 - 1-dose 75+ series) 07/26/2027 DTaP/Tdap/Td Immunization Discontinued 03/19/2017 TdaP Immunization Completed 03/19/2017 Zoster Immunization Completed 05/08/2018, 8 Pneumococcal Immunization (50+ years) Completed 08/08/2021, 04/13/2018 Pneumococcal Immunization Combined Discontinued 08/08/2021, 04/13/2018 Influenza Immunization Completed 4, 01/01/2022, 02/15/2020, Additional history exists Hepatitis B Immunization Aged Out No longer eligible based on patient's age to complete this topic Meningococcal Immunization (ACWY) Aged Out No longer eligible based on patient's age to complete this topic Rotavirus Immunization Aged Out No lo nger eligible based on patient's age to complete this topic Insurance MEDICARE Care Teams Cushion Worker Relationship Specialty Start Date End Date Eldon Koehler MD [address] [place] [phone] PCP - General 01/29/24
== END 2024-05-15 13:11 | disposition home or self-care (01) ==
LOC: ANHED 11:37
PROVIDERS: Emergency Provider Student in an Organized Health Care Education/Training Program; PCP Internal Medicine
DX: S01.01XA Laceration without foreign body of scalp, initial encounter (principal); E03.9 Hypothyroidism, unspecified; K21.9 Gastro-esophageal reflux disease without esophagitis; G47.33 Obstructive sleep apnea (adult) (pediatric); G25.81 Restless legs syndrome; M17.0 Bilateral primary osteoarthritis of knee; M19.019 Primary osteoarthritis, unspecified shoulder; M81.0 Age-related osteoporosis without current pathological fracture; Z98.1 Arthrodesis status; Z96.653 Presence of artificial knee joint, bilateral; Z90.49 Acquired absence of other specified parts of digestive tract; Z79.899 Other long term (current) drug therapy; Z79.85 Long-term (current) use of injectable non-insulin antidiabetic drugs; W01.0XXA Fall on same level from slipping, tripping and stumbling without subsequent striking against object, initial encounter
CPT/HCPCS: 12001; 70450; 99284

== ENCOUNTER 2024-05-30 13:46 | Emergency (ER) | payer MEDICARE, SELFPAY ==
[2024-05-30 13:58] VITALS: BP 149/79; PULSE 99; RESP 16; TEMP 36.6; O2SAT 100
--- NOTE | 2024-05-30 14:07 | ED.SKABFB ---
HPI - Skin/Abscess/Foreign Bdy General Chief complaint: Skin/Abscess/Foreign Body Stated complaint: Stitches Removal Time Seen by Provider: 05/30/24 14:00 Source: patient Mode of arrival: ambulatory Limitations: no limitations History of Present Illness HPI narrative: Wniifred is a 73-year-old female patient presenting to the clinic today for staple removal from the occipital lobe of her scalp. She reports she fell and received a scalp laceration two weeks ago. Went to the ER and had sophie placed. Denies any concerns Related Data Home Medications ?Medication ?Instructions ?Recorded ?Confirmed ?Last Taken ?Type atorvastatin 20 mg tablet 20 mg PO DAILY 05/27/19 02/11/24 Unknown History duloxetine 60 mg capsule,delayed 60 mg PO DAILY 05/27/19 02/11/24 Unknown History release levothyroxine 150 mcg tablet 150 mcg PO DAILY 05/27/19 02/11/24 Unknown History omeprazole 20 mg capsule,delayed 20 mg PO DAILY 05/27/19 02/11/24 Unknown History release pregabalin 50 mg capsule (Lyrica) 50 mg PO DAILY 05/27/19 02/11/24 Unknown History ascorbate calcium (vitamin C) 500 500 mg PO BID 10/08/19 02/11/24 Unknown History mg tablet mecobalamin (vitamin B12) 1,000 1,500 mcg PO DAILY 10/08/19 02/11/24 Unknown History mcg chewable tablet celecoxib 200 mg capsule 200 mg PO DAILY 11/05/19 02/11/24 Unknown History cholecalciferol (vitamin D3) 25 20 mcg PO DAILY 11/05/19 02/11/24 Unknown History mcg (1,000 unit) tablet multivitamin (Daily Multi-Vitamin 2 tablet PO DAILY 11/05/19 02/11/24 Unknown History tablet) ezetimibe 10 mg-rosuvastatin 10 mg 1 tablet PO DAILY 05/08/21 02/11/24 Unknown History tablet bupropion HCl 150 mg tablet,12 hr 150 mg PO BID 02/11/24 02/11/24 Unknown History sustained-release metoprolol succinate 25 mg 25 mg PO DAILY 02/11/24 02/11/24 Unknown History tablet,extended release 24 hr tirzepatide 2.5 mg/0.5 mL 2.5 mg subcut WEEKLY 10/02/24 10/02/24 Unknown History subcutaneous pen injector (Mounjaro) Allergies Allergy/AdvReac Type Severity Reaction Status Date / Time clindamycin Allergy Unknown n/a Verified 05/30/24 13:49 codeine Allergy Unknown n/a Verified 05/30/24 13:49 nickel Allergy Unknown Verified 05/30/24 13:49 Review of Systems Review of Systems: Pertinent positives per HPI. Patient denies any fever, chills, rash, headache, visual changes, dizziness, cough, runny nose, sore throat, shortness of breath, chest pain, palpitations, nausea, vomiting, diarrhea, constipation, abdominal pain, or any urinary issues. [facility] Past Medical History Medical History Rotator cuff tendinitis Arthritis Osteoporosis Depression Hypothyroidism Rotator cuff tear Acute pain of both knees Acute pain of right shoulder Adhesive capsulitis of right shoulder Allergic rhinitis, unspecified Body mass index (bmi) 36.0-36.9, adult (06/18/17) Body mass index (BMI) 45.0-49.9, adult (03/18/16) Complete tear of right rotator cuff DJD of AC (acromioclavicular) joint Fibromyalgia muscle pain Gastroesophageal reflux disease MURIEL (obstructive sleep apnea) Other chronic pain Pain in left knee Pes anserine bursitis Primary osteoarthritis of left knee Primary osteoarthritis of right knee Restless leg syndrome Surgical History Surgical History History of spinal fusion History of cholecystectomy Presence of left artificial knee joint Presence of right artificial knee joint Family History Family History Mother Carcinoma of colon, Onset Age: 86 Father , COPD,Congestive heart failure COPD (chronic obstructive pulmonary disease) Congestive heart failure (CHF) Arthritis Other Cerebrovascular accident Family history of alcoholism Social History Social History Smoking status: Never smoker Second hand tobacco smoke exposure: Yes Alcohol intake: current Comments At the time of my signature, I reviewed and agree with the nursing past medical, surgical, social, and family history. There is no relevant family history pertinent to the patient complaint. Exam Narrative: General: Well-developed, well nourished, in no apparent distress Head: Normocephalic, atraumatic. Cardio: Regular rate and rhythm, s1 and s2 normal, no murmur appreciated. Resp: Clear to auscultation bilaterally, no rhonchi, rales, wheezing or rubs. Integumentary: [place], warm, and dry, intact without lesion, no rashes. Nine sophie were removed from from the occipital lobe of the scalp-wound well healed, no redness, swelling, or tenderness Course Course Emergency Course: Portions of this record may have been created with voice recognition software. Level of Care: Express Care Visit Vital Signs Vital signs: Vital Signs Temperature 36.6 C 05/30/24 13:58 Pulse Rate 99 05/30/24 13:58 Respiratory Rate 16 05/30/24 13:58 Blood Pressure 149/79 H 05/30/24 13:58 Pulse Oximetry 100 05/30/24 13:58 Oxygen Delivery Room Air 05/30/24 13:58 Temperature 36.6 C 05/30/24 13:58 Pulse Rate 99 05/30/24 13:58 Respiratory Rate 16 05/30/24 13:58 Blood Pressure 149/79 H 05/30/24 13:58 Pulse Oximetry 100 05/30/24 13:58 Oxygen Delivery Room Air 05/30/24 13:58 Vital signs reviewed MDM - Skin/Abscess/Foreign Bdy MDM Narrative Medical decision making narrative: At the time of visit patient is resting comfortably on the exam table. Patient appears to be nontoxic. Plan: 9 tape was removed from the occipital lobe of the scalp using a staple remover. No sign of infection. Patient denies any concerns. Supportive measures were discussed with the patient and they voiced understanding discharge instructions and agrees to treatment plan. Return precautions reviewed Differential Diagnosis Differential diagnosis: Likely other (Encounter for staple removal) Discharge Plan Discharge Clinical Impression: Removal of sophie Patient Disposition: Home, Self-Care Condition: Stable Instructions: Antibiotic Form, Normal Exam (ED) Additional Instructions: 9 removed from the occipital lobe of your scalp May go home and wash hair today few like but do not aggressively scrubbed the area Follow-up with your primary care doctor as needed Patient Language: French Prescriptions: No Action atorvastatin 20 mg tablet 20 mg PO DAILY levothyroxine 150 mcg tablet 150 mcg PO DAILY omeprazole 20 mg capsule,delayed release(DR/EC) 20 mg PO DAILY duloxetine 60 mg capsule,delayed release(DR/EC) 60 mg PO DAILY pregabalin [Lyrica] 50 mg capsule 50 mg PO DAILY celecoxib 200 mg capsule 200 mg PO DAILY Patient Comments: Not taking as of provided medication list 11/04/19 Rx Instructions: Not taking as of provided medication list 11/04/19 bupropion HCl 150 mg tablet sustained-release 12 hr 150 mg PO BID metoprolol succinate 25 mg tablet extended release 24 hr 25 mg PO DAILY Mounjaro 2.5 mg/0.5 mL Pen Injector 2.5 mg SUBCUT WEEKLY Rx Instructions: for 4 weeks clotrimazole 1 % cream 1 applic topical BID 14 Days Qty: 30 0RF mecobalamin (vitamin B12) 1,000 mcg tablet,chewable 1,500 mcg PO DAILY ascorbate calcium (vitamin C) 500 mg tablet 500 mg PO BID multivitamin [Daily Multi-Vitamin] Tablet 2 tablet PO DAILY cholecalciferol (vitamin D3) 25 mcg (1,000 unit) tablet 20 mcg PO DAILY ezetimibe-rosuvastatin 10-10 mg tablet 1 tablet PO DAILY ropinirole 2 mg tablet 2 mg PO QHS 90 Days Qty: 90 3RF Rx Instructions: Take 1 tablet by mouth with the 0.5mg tab 1-2 hours before bed. ropinirole 0.5 mg tablet See Rx Instructions .ROUTE .COMPLEX Qty: 90 3RF Dose Instruction: TAKE 1 TABLET BY MOUTH DAILY 1 TO 2 HOURS BEFORE BEDTIME WITH THE 2MG TABLET FOR A TOTAL DAILY DOSE OF 2.5MG Rx Instructions: TAKE 1 TABLET BY MOUTH DAILY 1 TO 2 HOURS BEFORE BEDTIME WITH THE 2MG TABLET FOR A TOTAL DAILY DOSE OF 2.5MG Follow-up/Referrals: Rodo,Eldon Canchola MD [Primary Care Provider] - Time of Disposition: 14:05 Quality NIHSS Nursing Documentation ED NIHSS nursing documentation: reviewed/agree
== END 2024-05-30 14:10 | disposition home or self-care (01) ==
PROVIDERS: Emergency Provider Nurse Practitioner Family; PCP Internal Medicine
DX: S01.01XD Laceration without foreign body of scalp, subsequent encounter (principal); W19.XXXD Unspecified fall, subsequent encounter; M19.90 Unspecified osteoarthritis, unspecified site; M81.0 Age-related osteoporosis without current pathological fracture; E03.9 Hypothyroidism, unspecified; M79.7 Fibromyalgia; K21.9 Gastro-esophageal reflux disease without esophagitis; M17.0 Bilateral primary osteoarthritis of knee; G25.81 Restless legs syndrome; Z96.653 Presence of artificial knee joint, bilateral
CPT/HCPCS: 99211; G0463

== ENCOUNTER 2024-06-18 08:37 | Outpatient (CLI) | payer MEDICARE, SELFPAY ==
--- NOTE | ~2024-06-18 | MM_ITS ---
EXAMINATION: MM screening denzel BI w norbert HISTORY: Screening mammogram TECHNIQUE: Craniocaudal and mediolateral oblique 3-D tomosynthesis images were obtained and synthetic 2-D images were generated. CAD analysis was submitted and interpreted. COMPARISON: 11/18/2022, 11/04/2019 BREAST PARENCHYMAL COMPOSITION:Not Dense. There are scattered areas of fibroglandular density. FINDINGS: No suspicious mass, calcification, or architectural distortion are identified in either garry ast to suggest malignancy. There has been no suspicious interval change. IMPRESSION: No mammographic evidence of malignancy. Recommend routine screening mammography in one year. BI-RADS Category 1: Negative Reviewed, dictated and finalized at location . 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
--- OUTSIDE RECORDS SUMMARY | 2024-06-18 08:50 | XMS_ITS | Encounter Summary ---
Author Organization [facility] Address [address] [place] [address] Care Team Providers Care Desk Attendant Name Role Phone Eldon Koehler MD Primary Care Provider [phone] Encounter Details Date Type Department Care Team (Late st Contact Info) Description 04/19/[address] [facility] Internal Medicine [address] [phone] Eldon Koehler MD [address] [place] [address] [address] [place] [address] Social History Tobacco Use Types Packs/Day Years Used Date Smoking Tobacco: Never Assessed Comments Unknown Sex and Gender Information Value Date Recorded Sex Assigned at Not on file Legal Sex Female 3:04 AM DIRECTOR OF CLINICAL EDUCATION Gender Identity Not on file Sexual Orientation Not on file documented as of this encounter Last Filed Vital Signs Vital Sign Reading Time Taken Comments Blood Pressure 130/80 04/19/2005 1:00 PM DIRECTOR OF CLINICAL EDUCATION Pulse - - Temperature - - Respiratory Rate - - Oxygen Saturation - - Inhaled Oxygen Concentration - - Weight 112.5 kg (248 lb) 04/19/2005 1:00 PM DIRECTOR OF CLINICAL EDUCATION Height - - Body Mass Index 38.84 06/08/2003 3:30 PM DIRECTOR OF CLINICAL EDUCATION documented in this encounter Plan of Treatment Upcoming Encounters Date Type Department Care Team (Late st Contact Info) Description 07/27/2024 9:40 AM CDT Office Visit [facility] Primary Care [address] [place] [phone] Eldon Koehler MD [address] [place] [address] [address] [place] [phone] documented as of this encounter Visit Diagnoses Not on filedocumented in this encounter Additional Health Concerns Infection Onset Date Last Indicated Resolved Time R/O COVID-19 04/24/2020 04/25/2020 04/27/2020 7:0 1 AM DIRECTOR OF CLINICAL EDUCATION R/O COVID-19 04/27/2021 05/02/2021 05/04/2021 1:16 AM DIRECTOR OF CLINICAL EDUCATION documented as of this encounter Care Teams Desk Attendant Relationship Specialty Start Date End Date Eldon Koehler MD PCP - General 10/06/07 documented as of this encounter
--- OUTSIDE RECORDS SUMMARY | 2024-06-18 08:50 | XMS_ITS | Encounter Summary ---
Author Organization [facility] Address [address] [place] [address] Care Team Providers Care Home Energy Inspector Name Role Phone Eldon Koehler MD Primary Care Provider [phone] Encounter Details Date Type Department Care Team (Late st Contact Info) Description 09/28/2003 Outpatient Historical [facility] Internal Medicine [address] [phone] Eldon Koehler MD [address] [place] [address] [address] [place] [address] Social History Tobacco Use Types Packs/Day Years Used Date Smoking Tobacco: Never Assessed Comments Unknown Sex and Gender Information Value Date Recorded Sex Assigned at Not on file Legal Sex Female 3:04 AM BALLAST REGULATOR OPERATOR Gender Identity Not on file Sexual Orientation [...] Body Mass Index 37.9 06/08/2003 3:30 PM BALLAST REGULATOR OPERATOR documented in this encounter Plan of Treatment Upcoming Encounters Date Type Department Care Team (Late st Contact Info) Description 07/27/2024 9:40 AM CDT Office Visit [facility] Primary Care [address] [place] [phone] Eldon Koehler MD [address] [place] [address] [address] [place] [phone] documented as of this encounter Visit Diagnoses Not on filedocumented in this encounter Additional Health Concerns Infection Onset Date Last Indicated Resolved Time R/O COVID-19 04/24/2020 04/25/2020 04/27/2020 7:01 AM BALLAST REGULATOR OPERATOR R/O COVID-19 04/27/2021 05/02/2021 05/04/2021 1:16 AM BALLAST REGULATOR OPERATOR documented as of this encounter Care Teams Home Energy Inspector Relationship Specialty Start Date End Date Eldon Koehler MD PCP - General 10/06/07 documented as of this encounter
--- OUTSIDE RECORDS SUMMARY | 2024-06-18 08:50 | XMS_ITS | Encounter Summary ---
Author Organization [facility] Address [address] [place] [address] Care Team Providers Care Multifocal Lens Inspector Name Role Phone Eldon Koehler MD Primary Care Provider [phone] Encounter Details Date Type Department Care Team (Late st Contact Info) Description 01/15/2006 Orders Only [facility] Internal Medicine [address] [address] Eldon Koehler MD [address] [place] [address] Social History Tobacco Use Types Packs/Day Years Used Date Smoking Tobacco: Never Assessed Comments Unknown Sex and Gender Information Value Date Recorded Sex Assigned at Not on file Legal Sex Female 3:04 AM MICA SPREADER Gender Identity Not on file Sexual Orientation [...] slightly LAB ORDERS: 3 mo Order number: [id number] Test Ordered: COMPREHENSIVE METABOLIC PANEL W/ GLOMERULAR FILTRATION RATE, ESTIMATED (EGFR) 88804 Order number: [id number] Test Ordered: LIPID PANEL 7600 Order number: [id number] Test Ordered: TSH 899 272.4-HYPERLIPIDEMIA cont med [...] Office Visit [facility] Primary Care [place] [phone] Eldon Koehler MD [address] [place] [address] documented as of this encounter Visit Diagnoses Not on filedocumented in this encounter Additional Health Concerns Infection Onset Date Last Indicated Resolved Time R/O COVID-19 04/24/2020 04/25/2020 04/27/2020 7:01 AM MICA SPREADER R/O COVID-19 04/27/2021 05/02/2021 05/04/2021 1:16 AM MICA SPREADER documented as of this encounter Care Teams Multifocal Lens Inspector Relationship Specialty Start Date End Date Eldon Koehler MD PCP - General 10/06/07 documented as of this encounter
--- OUTSIDE RECORDS SUMMARY | 2024-06-18 08:50 | XMS_ITS | Encounter Summary ---
Author Organization [facility] Address [address] [place] [address] Care Team Providers Care Electro Mechanical Technician Name Role Phone Eldon Koehler MD Primary Care Provider [phone] Encounter Details Date Type Department Care Team (Late st Contact Info) Description 07/20/2004 Outpatient [facility] Internal Medicine [address] [phone] Eldon Koehler MD [address] [place] [phone] Social History Tobacco Use Types Packs/Day Years Used Date Smoking Tobacco: Never Assessed Comments Unknown Sex and Gender Information Value Date Recorded Sex Assigned at Not on file Legal Sex Female 3:04 AM COAL GRADER Gender Identity Not on file Sexual Orientation Not on file documented as of this encounter Last Filed Vital Signs Vital Sign Reading Time Taken Comments Blood Pressure 130/70 07/20/2004 1:15 PM COAL GRADER Pulse - - Temperature 36.9 C (98.4 F) 07/20/2004 1:15 PM COAL GRADER Respiratory Rate - - Oxygen Saturation - - Inhaled Oxygen Concentration - - Weight 115.2 kg (254 lb) 07/20/2004 1:15 PM COAL GRADER Height - - Body Mass Index 39.78 06/08/2003 3:30 PM COAL GRADER documented in this encounter Plan of Treatment Upcoming Encounters Date Type Department Care Team (Late st Contact Info) Description 07/27/2024 9:40 AM CDT Office Visit [facility] Primary Care [facility] [address] [place] [address] [address] [place] [phone] Eldon Koehler MD [address] [place] [address] [address] [place] [phone] documented as of this encounter Visit Diagnoses Not on filedocumented in this encounter Additional Health Concerns Infection Onset Date Last Indicated Resolved Time R/O COVID-19 04/24/2020 04/25/2020 04/27/2020 7:01 AM COAL GRADER R/O COVID-19 04/27/2021 05/02/2021 05/04/2021 1:16 AM COAL GRADER documented as of this encounter Care Teams Electro Mechanical Technician Relationship Specialty Start Date End Date Eldon Koehler MD PCP - General 10/06/07 documented as of this encounter
--- OUTSIDE RECORDS SUMMARY | 2024-06-18 08:50 | XMS_ITS | Encounter Summary ---
Author Organization [facility] Address [address] [place] [address] Care Team Providers Care Otr Company Driver Name Role Phone Eldon Koehler MD Primary Care Provider [phone] Encounter Details Date Type Department Care Team (Late st Contact Info) Description 06/08/2003 Outpatient Historical [facility] Internal Medicine [address] [phone] Meliton Odonnell MD [address] [place] [address] Social History Tobacco Use Types Packs/Day Years Used Date Smoking Tobacco: Never Assessed Comments Unknown Sex and Gender Information Value Date Recorded Sex Assigned at Not on file Legal Sex Female 3:04 AM PATTERNMAKER GRADER Gender Identity Not on file Sexual Orientation Not on file documented as of this encounter Last Filed Vital Signs Vital Sign Reading Time Taken Comments Blood Pressure 130/70 06/08/2003 3:30 PM PATTERNMAKER GRADER Pulse - - Temperature - - Respiratory Rate - - Oxygen Saturation - - Inhaled Oxygen Concentration - - Weight 112 kg (247 lb) 06/08/2003 3:30 PM PATTERNMAKER GRADER Height 170.2 cm (5' 7 ) 06/08/2003 3:30 PM PATTERNMAKER GRADER Body Mass Index 38.69 06/08/2003 3:30 PM PATTERNMAKER GRADER documented in this encounter Plan of Treatment Upcoming Encounters Date Type Department Care Team (Late st Contact Info) Description 07/27/2024 9:40 AM CDT Office Visit [facility] Primary Care [facility] [address] [place] [address] [place] [address] [place] [address] Eldon Koehler MD [address] [place] [address] [address] [place] [address] documented as of this encounter Visit Diagnoses Not on filedocumented in this encounter Additional Health Concerns Infection Onset Date Last Indicated Resolved Time R/O COVID-19 04/24/2020 04/25/2020 04/27/2020 7:01 AM PATTERNMAKER GRADER R/O COVID-19 04/27/2021 05/02/2021 05/04/2021 1:16 AM PATTERNMAKER GRADER documented as of this encounter Care Teams Otr Company Driver Relationship Specialty Start Date End Date Eldon Koehler MD PCP - General 10/06/07 documented as of this encounter
--- OUTSIDE RECORDS SUMMARY | 2024-06-18 08:50 | XMS_ITS | Encounter Summary ---
Author Organization [facility] Address [address] [place] [address] Care Team Providers Care Blind Escort Name Role Phone Eldon Koehler MD Primary Care Provider [phone] Encounter Details Date Type Department Care Team (Late st Contact Info) Description 10/16/2005 Outpatient Historical [facility] Internal Medicine [address] [phone] Eldon Koehler MD [address] [place] [address] [address] [place] [address] Social History Tobacco Use Types Packs/Day Years Used Date Smoking Tobacco: Never Assessed Comments Unknown Sex and Gender Information Value Date Recorded Sex Assigned at Not on file Legal Sex Female 3:04 AM SPORTS PHYSICAL THERAPIST Gender Identity Not on file Sexual Orientation [...] Body Mass Index 39.16 06/08/2003 3:30 PM SPORTS PHYSICAL THERAPIST documented in this encounter Plan of Treatment Upcoming Encounters Date Type Department Care Team (Late st Contact Info) Description 07/27/2024 9:40 AM CDT Office Visit [facility] Primary Care [address] [place] [phone] Eldon Koehler MD [address] [place] [address] [address] [place] [phone] documented as of this encounter Visit Diagnoses Not on filedocumented in this encounter Additional Health Concerns Infection Onset Date Last Indicated Resolved Time R/O COVID-19 04/24/2020 04/25/2020 04/27/2020 7:0 1 AM SPORTS PHYSICAL THERAPIST R/O COVID-19 04/27/2021 05/02/2021 05/04/2021 1:16 AM SPORTS PHYSICAL THERAPIST documented as of this encounter Care Teams Blind Escort Relationship Specialty Start Date End Date Eldon Koehler MD PCP - General 10/06/07 documented as of this encounter
--- OUTSIDE RECORDS SUMMARY | 2024-06-18 08:50 | XMS_ITS | Encounter Summary ---
Author Organization [facility] Address [address] [place] [address] Care Team Providers Care Resistor Inspector Name Role Phone Eldon Koehler MD Primary Care Provider [phone] Encounter Details Date Type Department Care Team (Late st Contact Info) Description 07/30/2004 Outpatient [facility] Internal Medicine [address] [phone] Eldon Koehler MD [address] [place] [address] Social History Tobacco Use Types Packs/Day Years Used Date Smoking Tobacco: Never Assessed Comments Unknown Sex and Gender Information Value Date Recorded Sex Assigned at Not on file Legal Sex Female 3:04 AM OPERATOR COMMAND SUPPORT SYSTEMS Gender Identity Not on file Sexual Orientation Not on file documented as of this encounter Last Filed Vital Signs Vital Sign Reading Time Taken Comments Blood Pressure 130/80 07/30/2004 3:00 PM OPERATOR COMMAND SUPPORT SYSTEMS Pulse - - Temperature 36.9 C (98.4 F) 07/30/2004 3:00 PM OPERATOR COMMAND SUPPORT SYSTEMS Respiratory Rate - - Oxygen Saturation - - Inhaled Oxygen Concentration - - Weight 113.4 kg (250 lb) 07/30/2004 3:00 PM OPERATOR COMMAND SUPPORT SYSTEMS Height - - Body Mass Index 39.16 06/08/2003 3:30 PM OPERATOR COMMAND SUPPORT SYSTEMS documented in this encounter Plan of Treatment Upcoming Encounters Date Type Department Care Team (Late st Contact Info) Description 07/27/2024 9:40 AM CDT Office Visit [facility] Primary Care [facility] [address] [place] [address] [address] [place] [phone] Eldon Koehler MD [address] [place] [address] [address] [place] [phone] documented as of this encounter Visit Diagnoses Not on filedocumented in this encounter Additional Health Concerns Infection Onset Date Last Indicated Resolved Time R/O COVID-19 04/24/2020 04/25/2020 04/27/2020 7:01 AM OPERATOR COMMAND SUPPORT SYSTEMS R/O COVID-19 04/27/2021 05/02/2021 05/04/2021 1:16 AM OPERATOR COMMAND SUPPORT SYSTEMS documented as of this encounter Care Teams Resistor Inspector Relationship Specialty Start Date End Date Eldon Koehler MD PCP - General 10/06/07 documented as of this encounter
--- OUTSIDE RECORDS SUMMARY | 2024-06-18 08:50 | XMS_ITS | Encounter Summary ---
Author Organization [facility] Address [address] [place] [address] Care Team Providers Care Equipment Man Name Role Phone Eldon Koehler MD Primary Care Provider Encounter Details Date Type Department Care Team (Late st Contact Info) Description 05/21/2005 Orders Only [facility] Internal Medicine [address] [phone] Eldon Koehler MD [address] [place] [address] [address] [place] [address] Social History Tobacco Use Types Packs/Day Years Used Date Smoking Tobacco: Never Assessed Comments Unknown Sex and Gender Information Value Date Recorded Sex Assigned at Not on file Legal Sex Female 3:04 AM CRITICAL CARE RN Gender Identity Not on file Sexual Orientation Not on file documented as of this encounter Plan of Treatment Upcoming Encounters Date Type Department Care Team (Late st Contact Info) Description 07/27/2024 9:40 AM CDT Office Visit [facility] Primary Care [address] [place] [address] Eldon Koehler MD [address] [place] [address] [address] [place] [address] documented as of this encounter Visit Diagnoses Not on filedocumented in this encounter Additional Health Concerns Infection Onset Date Last Indicated Resolved Time R/O COVID-19 04/24/2020 04/25/2020 04/27/2020 7:01 AM CRITICAL CARE RN R/O COVID-19 04/27/2021 05/02/2021 05/04/2021 1:16 AM CRITICAL CARE RN documented as of this encounter Care Teams Equipment Man Relationship Specialty Start Date End Date Eldon Koehler MD PCP - General 10/06/07 documented as of this encounter
--- OUTSIDE RECORDS SUMMARY | 2024-06-18 08:50 | XMS_ITS | Encounter Summary ---
Author Organization [facility] Address [address] [place] [address] Care Team Providers Care Licensed Occupational Therapist Name Role Phone Eldon Koehler MD Primary Care Provider [phone] Encounter Details Date Type Department Care Team (Late st Contact Info) Description 01/15/2006 Outpatient Historical [facility] Internal Medicine [address] [phone] Eldon Koehler MD [address] [place] [address] [address] [place] [address] Social History Tobacco Use Types Packs/Day Years Used Date Smoking Tobacco: Never Assessed Comments Unknown Sex and Gender Information Value Date Recorded Sex Assigned at Not on file Legal Sex Female 3:[address] MAGISTRATE Gender Identity Not on file Sexual Orientation [...] Body Mass Index 39.47 06/08/2003 3:[address] MAGISTRATE documented in this encounter Plan of Treatment Upcoming Encounters Date Type Department Care Team (Late st Contact Info) Description 07/27/2024 9:40 AM CDT Office Visit [facility] Primary Care [address] [place] [phone] Eldon Koehler MD [address] [place] [address] [address] [place] [phone] documented as of this encounter Visit Diagnoses Not on filedocumented in this encounter Additional Health Concerns Infection Onset Date Last Indicated Resolved Time R/O COVID-19 04/24/2020 04/25/2020 04/27/2020 7:[address] MAGISTRATE R/O COVID-19 04/27/2021 05/02/2021 05/04/2021 1:[address] MAGISTRATE documented as of this encounter Care Teams Licensed Occupational Therapist Relationship Specialty Start Date End Date Eldon Koehler MD PCP - General 10/06/07 documented as of this encounter
--- OUTSIDE RECORDS SUMMARY | 2024-06-18 08:50 | XMS_ITS | Encounter Summary ---
Author Organization [facility] Address [address] [place] [address] Care Team Providers Care Train Control Electronic Technician Name Role Phone Eldon Koehler MD Primary Care Provider Encounter Details Date Type Department Care Team (Late st Contact Info) Description 10/13/2003 Outpatient Historical [facility] Internal Medicine [address] [address] Eldon Koehler MD [address] [place] [address] [address] [place] [address] Social History Tobacco Use Types Packs/Day Years Used Date Smoking Tobacco: Never Assessed Comments Unknown Sex and Gender Information Value Date Recorded Sex Assigned at Not on file Legal Sex Female 3:04 AM INFORMIX DEVELOPER Gender Identity Not on file Sexual Orientation Not on file documented as of this encounter Plan of Treatment Upcoming Encounters Date Type Department Care Team (Late st Contact Info) Description 07/27/2024 9:40 AM CDT Office Visit [facility] Primary Care [address] [place] [address] Eldon Koehler MD [address] [place] [address] [address] [place] [address] documented as of this encounter Visit Diagnoses Not on filedocumented in this encounter Additional Health Concerns Infection Onset Date Last Indicated Resolved Time R/O COVID-19 04/24/2020 04/25/2020 04/27/2020 7:01 AM INFORMIX DEVELOPER R/O COVID-19 04/27/2021 05/02/2021 05/04/2021 1:16 AM INFORMIX DEVELOPER documented as of this encounter Care Teams Train Control Electronic Technician Relationship Specialty Start Date End Date Eldon Koehler MD PCP - General 10/06/07 documented as of this encounter
--- OUTSIDE RECORDS SUMMARY | 2024-06-18 08:50 | XMS_ITS | Clinical Summary ---
Author Organization [facility] Address [address] [place] [address] Phone Care Team Providers Care Revising Clerk Name Role Phone Eldon Koehler MD Primary Care Provider [phone] Medications atorvastatin (LIPITOR) 20 MG Tablet 12/30/2023 [...] Orientation Not on file Plan of Treatment Health Maintenance Due Date Last Done Comments [...] complete this topic Insurance MEDICARE Care Teams Revising Clerk Relationship Specialty Start Date End Date Eldon Koehler MD [address] [place] [address] PCP - General 01/29/24
--- OUTSIDE RECORDS SUMMARY | 2024-06-18 08:50 | XMS_ITS | Encounter Summary ---
Author Organization [facility] Address [address] [place] [address] Care Team Providers Care Social Insurance Adviser Name Role Phone Eldon Koehler MD Primary Care Provider [phone] Encounter Details Date Type Department Care Team (Late st Contact Info) Description 01/28/2006 Orders Only [facility] Internal Medicine [address] [address] Eldon Koehler MD [address] [place] [address] Social History Tobacco Use Types Packs/Day Years Used Date Smoking Tobacco: Never Assessed Comments Unknown Sex and Gender Information Value Date Recorded Sex Assigned at Not on file Legal Sex Female 3:04 AM LUMBER MOVER Gender Identity Not on file Sexual Orientation Not on file documented as of this encounter Progress Notes * Eldon Koehler MD - 02/23/2008 6:10 PM CDT TIME:10:59 am PATIENT`S HOME PHONE: PATIENT`S WORK PHONE: PATIENT`S INSURANCE: [employer] [facility] WHO TOOK THE CALL: Mitra Ward L GENERAL INFORMATION ALTERNATIVE PHONE NUMBER: [phone] WHO CALLED: Patient called. SECTION 1: REQUESTED ACTION werner 01/28/06 at 10:59 am: MEDICATION REQUEST: Patient [...] [facility] [place] [address] Eldon Koehler MD [address] [place] [phone] documented as of this encounter Visit Diagnoses Not on filedocumented in this encounter Additional Health Concerns Infection Onset Date Last Indicated Resolved Time R/O COVID-19 04/24/2020 04/25/2020 04/27/2020 7:01 AM LUMBER MOVER R/O COVID-19 04/27/2021 05/02/2021 05/04/2021 1:16 AM LUMBER MOVER documented as of this encounter Care Teams Social Insurance Adviser Relationship Specialty Start Date End Date Eldon Koehler MD PCP - General 10/06/07 documented as of this encounter
--- OUTSIDE RECORDS SUMMARY | 2024-06-18 08:50 | XMS_ITS | Encounter Summary ---
Author Organization [facility] Address [address] [place] [address] Care Team Providers Care Assistant Merchandiser Name Role Phone Eldon Koehler MD Primary Care Provider Encounter Details Date Type Department Care Team (Late st Contact Info) Description 07/10/2005 Outpatient [facility] Internal Medicine [address] [address] Eldon Koehler MD [address] [place] [address] Social History Tobacco Use Types Packs/Day Years Used Date Smoking Tobacco: Never Assessed Comments Unknown Sex and Gender Information Value Date Recorded Sex Assigned at Not on file Legal Sex Female 3:04 AM UTILITY BAG ASSEMBLER Gender Identity Not on file Sexual Orientation Not on file documented as of this encounter Last Filed Vital Signs Vital Sign Reading Time Taken Comments Blood Pressure 130/80 07/10/2005 1:45 PM UTILITY BAG ASSEMBLER Pulse - - Temperature 37.4 C (99.32 F) 07/10/2005 1:45 PM UTILITY BAG ASSEMBLER Respiratory Rate - - Oxygen Saturation - - Inhaled Oxygen Concentration - - Weight 113.4 kg (250 lb) 07/10/2005 1:45 PM UTILITY BAG ASSEMBLER Height - - Body Mass Index 39.16 06/08/2003 3:30 PM UTILITY BAG ASSEMBLER documented in this encounter Plan of Treatment Upcoming Encounters Date Type Department Care Team (Late st Contact Info) Description 07/27/2024 9:40 AM CDT Office Visit [facility] Primary Care [facility] [address] [place] [address] [address] [place] [phone] Eldon Koehler MD [address] [place] [address] [address] [place] [phone] documented as of this encounter Visit Diagnoses Not on filedocumented in this encounter Additional Health Concerns Infection Onset Date Last Indicated Resolved Time R/O COVID-19 04/24/2020 04/25/2020 04/27/2020 7:01 AM UTILITY BAG ASSEMBLER R/O COVID-19 04/27/2021 05/02/2021 05/04/2021 1:16 AM UTILITY BAG ASSEMBLER documented as of this encounter Care Teams Assistant Merchandiser Relationship Specialty Start Date End Date Eldon Koehler MD PCP - General 10/06/07 documented as of this encounter
--- OUTSIDE RECORDS SUMMARY | 2024-06-18 08:50 | XMS_ITS | Encounter Summary ---
Author Organization [facility] Address [address] [place] [address] Care Team Providers Care Asphalt Tamping Machine Operator Name Role Phone Eldon Koehler MD Primary Care Provider [phone] Encounter Details Date Type Department Care Team (Late st Contact Info) Description 10/19/2004 Outpatient Historical [facility] Internal Medicine [address] [phone] Eldon Koehler MD [address] [place] [address] [address] [place] [address] Social History Tobacco Use Types Packs/Day Years Used Date Smoking Tobacco: Never Assessed Comments Unknown Sex and Gender Information Value Date Recorded Sex Assigned at Not on file Legal Sex Female 3:04 AM THEATER COMPANY PRODUCER Gender Identity Not on file Sexual Orientation [...] Body Mass Index 39 06/08/2003 3:30 PM THEATER COMPANY PRODUCER documented in this encounter Plan of Treatment Upcoming Encounters Date Type Department Care Team (Late st Contact Info) Description 07/27/2024 9:40 AM CDT Office Visit [facility] Primary Care [address] [place] [phone] Eldon Koehler MD [address] [place] [address] [address] [place] [phone] documented as of this encounter Visit Diagnoses Not on filedocumented in this encounter Additional Health Concerns Infection Onset Date Last Indicated Resolved Time R/O COVID-19 04/24/2020 04/25/2020 04/27/2020 7:01 AM THEATER COMPANY PRODUCER R/O COVID-19 04/27/2021 05/02/2021 05/04/2021 1:16 AM THEATER COMPANY PRODUCER documented as of this encounter Care Teams Asphalt Tamping Machine Operator Relationship Specialty Start Date End Date Eldon Koehler MD PCP - General 10/06/07 documented as of this encounter
--- OUTSIDE RECORDS SUMMARY | 2024-06-18 08:50 | XMS_ITS | Encounter Summary ---
Author Organization [facility] Address [address] [place] [address] Care Team Providers Care Grader Marker Name Role Phone Eldon Koehler MD Primary Care Provider Encounter Details Date Type Department Care Team (Late st Contact Info) Description 03/14/2004 Outpatient [facility] Internal Medicine [address] [address] Eldon Koehler MD [address] [place] [address] Social History Tobacco Use Types Packs/Day Years Used Date Smoking Tobacco: Never Assessed Comments Unknown Sex and Gender Information Value Date Recorded Sex Assigned at Not on file Legal Sex Female 3:04 AM SPOUTER Gender Identity Not on file Sexual Orientation Not on file documented as of this encounter Last Filed Vital Signs Vital Sign Reading Time Taken Comments Blood Pressure 150/80 03/14/2004 2:30 PM SPOUTER Pulse - - Temperature 37.8 C (100.1 F) 03/14/2004 2:30 PM SPOUTER Respiratory Rate - - Oxygen Saturation - - Inhaled Oxygen Concentration - - Weight 115.2 kg (254 lb) 03/14/2004 2:30 PM SPOUTER Height - - Body Mass Index 39.78 06/08/2003 3:30 PM SPOUTER documented in this encounter Plan of Treatment Upcoming Encounters Date Type Department Care Team (Late st Contact Info) Description 07/27/2024 9:40 AM CDT Office Visit [facility] Primary Care [facility] [address] [place] [address] [address] [place] [phone] Eldon Koehler MD [address] [place] [address] [address] [place] [phone] documented as of this encounter Visit Diagnoses Not on filedocumented in this encounter Additional Health Concerns Infection Onset Date Last Indicated Resolved Time R/O COVID-19 04/24/2020 04/25/2020 04/27/2020 7:01 AM SPOUTER R/O COVID-19 04/27/2021 05/02/2021 05/04/2021 1:16 AM SPOUTER documented as of this encounter Care Teams Grader Marker Relationship Specialty Start Date End Date Eldon Koehler MD PCP - General 10/06/07 documented as of this encounter
--- OUTSIDE RECORDS SUMMARY | 2024-06-18 08:51 | XMS_ITS | Encounter Summary ---
Author Organization [facility] Address [address] [place] [address] Care Team Providers Care Moisture Meter Reader Name Role Phone Eldon Koehler MD Primary Care Provider Encounter Details Date Type Department Care Team (Late st Contact Info) Description 06/05/2007 Outpatient Historical [facility] Internal Medicine [address] [address] Eldon Koehler MD [address] [place] [address] [address] [place] [address] Social History Tobacco Use Types Packs/Day Years Used Date Smoking Tobacco: Never Assessed Comments Unknown Sex and Gender Information Value Date Recorded Sex Assigned at Not on file Legal Sex Female 3:04 AM CONCRETE POURER Gender Identity Not on file Sexual Orientation Not on file documented as of this encounter Plan of Treatment Upcoming Encounters Date Type Department Care Team (Late st Contact Info) Description 07/27/2024 9:40 AM CDT Office Visit [facility] Primary Care [address] [place] [address] Eldon Koehler MD [address] [place] [address] [address] [place] [phone] documented as of this encounter Visit Diagnoses Not on filedocumented in this encounter Additional Health Concerns Infection Onset Date Last Indicated Resolved Time R/O COVID-19 04/24/2020 04/25/2020 04/27/2020 7:01 AM CONCRETE POURER R/O COVID-19 04/27/2021 05/02/2021 05/04/2021 1:16 AM CONCRETE POURER documented as of this encounter Care Teams Moisture Meter Reader Relationship Specialty Start Date End Date Eldon Koehler MD PCP - General 10/06/07 documented as of this encounter
--- OUTSIDE RECORDS SUMMARY | 2024-06-18 08:51 | XMS_ITS | Encounter Summary ---
Author Organization [facility] Address [address] [place] [address] Care Team Providers Care Acrobatic Rigger Name Role Phone Eldon Koehler MD Primary Care Provider [phone] Encounter Details Date Type Department Care Team (Late st Contact Info) Description 08/03/[address] [facility] Internal Medicine [address] [phone] Eldon Koehler MD [address] [place] [address] [address] [place] [address] Social History Tobacco Use Types Packs/Day Years Used Date Smoking Tobacco: Never Assessed Comments Unknown Sex and Gender Information Value Date Recorded Sex Assigned at Not on file Legal Sex Female 3:04 AM AIRCRAFT SERVICER Gender Identity Not on file Sexual Orientation [...] Body Mass Index 41.97 06/08/2003 3:30 PM AIRCRAFT SERVICER documented in this encounter Plan of Treatment Upcoming Encounters Date Type Department Care Team (Late st Contact Info) Description 07/27/2024 9:40 AM CDT Office Visit [facility] Primary Care [address] [place] [phone] Eldon Koehler MD [address] [place] [address] [address] [place] [phone] documented as of this encounter Visit Diagnoses Not on filedocumented in this encounter Additional Health Concerns Infection Onset Date Last Indicated Resolved Time R/O COVID-19 04/24/2020 04/25/2020 04/27/2020 7:01 AM AIRCRAFT SERVICER R/O COVID-19 04/27/2021 05/02/2021 05/04/2021 1:16 AM AIRCRAFT SERVICER documented as of this encounter Care Teams Acrobatic Rigger Relationship Specialty Start Date End Date Eldon Koehler MD PCP - General 10/06/07 documented as of this encounter
--- OUTSIDE RECORDS SUMMARY | 2024-06-18 08:51 | XMS_ITS | Encounter Summary ---
Author Organization [facility] Address [address] [place] [address] Care Team Providers Care Biopharmaceutical Rep Name Role Phone Eldon Koehler MD Primary Care Provider [phone] Encounter Details Date Type Department Care Team (Late st Contact Info) Description 03/02/2007 Outpatient Historical [facility] Internal Medicine [address] [phone] Eldon Koehler MD [address] [place] [address] [address] [place] [address] Social History Tobacco Use Types Packs/Day Years Used Date Smoking Tobacco: Never Assessed Comments Unknown Sex and Gender Information Value Date Recorded Sex Assigned at Not on file Legal Sex Female 3:04 AM VENEER PULLER Gender Identity Not on file Sexual Orientation [...] Body Mass Index 40.57 06/08/2003 3:30 PM VENEER PULLER documented in this encounter Plan of Treatment Upcoming Encounters Date Type Department Care Team (Late st Contact Info) Description 07/27/2024 9:40 AM CDT Office Visit [facility] Primary Care [address] [place] [phone] Eldon Koehler MD [address] [place] [address] [address] [place] [phone] documented as of this encounter Visit Diagnoses Not on filedocumented in this encounter Additional Health Concerns Infection Onset Date Last Indicated Resolved Time R/O COVID-19 04/24/2020 04/25/2020 04/27/2020 7:01 AM VENEER PULLER R/O COVID-19 04/27/2021 05/02/2021 05/04/2021 1:16 AM VENEER PULLER documented as of this encounter Care Teams Biopharmaceutical Rep Relationship Specialty Start Date End Date Eldon Koehler MD PCP - General 10/06/07 documented as of this encounter
--- OUTSIDE RECORDS SUMMARY | 2024-06-18 08:51 | XMS_ITS | Encounter Summary ---
Author Organization [facility] Address [address] [place] [address] Care Team Providers Care Boarding Kennel Or Cattery Operator Name Role Phone Eldon Koehler MD Primary Care Provider Encounter Details Date Type Department Care Team (Late st Contact Info) Description 01/27/2007 Orders Only [facility] Internal Medicine [address] [address] Eldon Koehler MD [address] [place] [address] [address] [place] [address] Social History Tobacco Use Types Packs/Day Years Used Date Smoking Tobacco: Never Assessed Comments Unknown Sex and Gender Information Value Date Recorded Sex Assigned at Not on file Legal Sex Female 3:04 AM CAN INSPECTOR Gender Identity Not on file Sexual Orientation Not on file documented as of this encounter Plan of Treatment Upcoming Encounters Date Type Department Care Team (Late st Contact Info) Description 07/27/2024 9:40 AM CDT Office Visit [facility] Primary Care [address] [place] [address] Eldon Koehler MD [address] [place] [address] [address] [place] [phone] documented as of this encounter Visit Diagnoses Not on filedocumented in this encounter Additional Health Concerns Infection Onset Date Last Indicated Resolved Time R/O COVID-19 04/24/2020 04/25/2020 04/27/2020 7:01 AM CAN INSPECTOR R/O COVID-19 04/27/2021 05/02/2021 05/04/2021 1:16 AM CAN INSPECTOR documented as of this encounter Care Teams Boarding Kennel Or Cattery Operator Relationship Specialty Start Date End Date Eldon Koehler MD PCP - General 10/06/07 documented as of this encounter
--- OUTSIDE RECORDS SUMMARY | 2024-06-18 08:51 | XMS_ITS | Encounter Summary ---
Author Organization [facility] Address [address] [place] [address] Care Team Providers Care Chief Deputy Coroner Name Role Phone Eldon Koehler MD Primary Care Provider [phone] Encounter Details Date Type Department Care Team (Late st Contact Info) Description 08/26/2006 Outpatient [facility] Internal Medicine [address] [address] Eldon Koehler MD [address] [place] [address] Social History Tobacco Use Types Packs/Day Years Used Date Smoking Tobacco: Never Assessed Comments Unknown Sex and Gender Information Value Date Recorded Sex Assigned at Not on file Legal Sex Female 3:04 AM VISUAL MERCHANDISING COORDINATOR Gender Identity Not on file Sexual Orientation Not on file documented as of this encounter Last Filed Vital Signs Vital Sign Reading Time Taken Comments Blood Pressure 130/70 08/26/2006 12:15 PM CDT Pulse - - Temperature 38.3 C (100.9 F) 08/26/2006 12:15 PM CDT Respiratory Rate - - Oxygen Saturation - - Inhaled Oxygen Concentration - - Weight 116.1 kg (256 lb) 08/26/2006 12:15 PM CDT Height - - Body Mass Index 40.1 06/08/2003 3:30 PM VISUAL MERCHANDISING COORDINATOR documented in this encounter Plan of Treatment Upcoming Encounters Date Type Department Care Team (Late st Contact Info) Description 07/27/2024 9:40 AM CDT Office Visit [facility] Primary Care [address] [place] [phone] Eldon Koehler MD [address] [place] [address] [address] [place] [phone] documented as of this encounter Visit Diagnoses Not on filedocumented in this encounter Additional Health Concerns Infection Onset Date Last Indicated Resolved Time R/O COVID-19 04/24/2020 04/25/2020 04/27/2020 7:01 AM VISUAL MERCHANDISING COORDINATOR R/O COVID-19 04/27/2021 05/02/2021 05/04/2021 1:16 AM VISUAL MERCHANDISING COORDINATOR documented as of this encounter Care Teams Chief Deputy Coroner Relationship Specialty Start Date End Date Eldon Koehler MD PCP - General 10/06/07 documented as of this encounter
--- OUTSIDE RECORDS SUMMARY | 2024-06-18 08:51 | XMS_ITS | Encounter Summary ---
Author Organization [facility] Address [address] [place] [address] Care Team Providers Care Abstract Searcher Name Role Phone Eldon Koehler MD Primary Care Provider Encounter Details Date Type Department Care Team (Late st Contact Info) Description 08/26/2006 Orders Only [facility] Internal Medicine [address] [address] Eldon Koehler MD [address] [place] [address] Social History Tobacco Use Types Packs/Day Years Used Date Smoking Tobacco: Never Assessed Comments Unknown Sex and Gender Information Value Date Recorded Sex Assigned at Not on file Legal Sex Female 3:04 AM AIRCRAFT CHARTER DISPATCHER Gender Identity Not on file Sexual Orientation Not on file documented as of this encounter Progress Notes * Eldon Koehler MD - 10/01/2007 4:35 PM CDT WEIGHT: 256lbs BLOOD PRESSURE: 130/70 Right Arm Sitting TEMPERATURE: 38.28??c Oral NURSE NAME: Renee Low R CHIEF COMPLAINT Patient complains of congestion, cough, fever, sore throat. HISTORY: sore throat congestion, cough fever 2-3 days worsening PHYSICAL EXAMINATION: EARS, NOSE, MOUTH AND THROAT: EARS: EFFUSION PRESENT BILATERALLY, TYMPANIC MEMBRANES INFLAMED BILATERALLY. ORAL: OROPHARYNX ERYTHEMATOUS, BOTH TONSILS HAVE EXUDATE. NECK/THYROID: Symmetrical with no elevation of the jugular venous pulsation. Trachea midline. RESPIRATORY: Clear to auscultation and percussion. Normal respiratory effort. CARDIOVASCULAR: CARDIAC: Regular rhythm. No murmurs, rubs, or gallops. EDEMA/VARICOSITIES OF EXTREMITIES: No edema or varicosities. LYMPHATICS: MULTIPLE ENLARGED LYMPH NODES NOTED IN THE ANTERIOR CERVICAL CHAINS BILATERALLY. GASTROINTESTINAL: ABDOMEN: Soft, non-tender, without masses. Bowel sounds active. ASSESSMENT/PLAN: 244.9-HYPOTHYROIDISM recheck lab, pt not compliant with fu 272.4-HYPERLIPIDEMIA rechecklab, cont med 462-PHARYNGITIS rx MEDICATIONS: CEFUROXIME AXETIL ORAL TABLET 250 MG, 1 Two Times A Day, 20 Dispensed, 10 Duration/Days Supply, status: NEW PRESCRIPTION, 08/26/2006. Patient Education: The importance of compliance was stressed. The patient was told that there needsto be a commitment to following our agreed upon course of action. It was noted that failing to be compliant can lead to untoward health outcomes. RETURN VISIT : Instructed to call if not improving. Electronically Signed by: Eldon Koehler MD on Saturday, August 26, 2006 documented in this encounter Plan of Treatment Upcoming Encounters Date Type Department Care Team (Late st Contact Info) Description 07/27/2024 9:40 AM CDT Office Visit [facility] Primary Care [place] [address] Eldon Koehler MD [address] [place] [address] documented as of this encounter Visit Diagnoses Not on filedocumented in this encounter Additional Health Concerns Infection Onset Date Last Indicated Resolved Time R/O COVID-19 04/24/2020 04/25/2020 04/27/2020 7:01 AM AIRCRAFT CHARTER DISPATCHER R/O COVID-19 04/27/2021 05/02/2021 05/04/2021 1:16 AM AIRCRAFT CHARTER DISPATCHER documented as of this encounter Care Teams Abstract Searcher Relationship Specialty Start Date End Date Eldon Koehler MD PCP - General 10/06/07 documented as of this encounter
--- OUTSIDE RECORDS SUMMARY | 2024-06-18 08:51 | XMS_ITS | Encounter Summary ---
Author Organization [facility] Address [address] [place] [address] Care Team Providers Care Handwriting Expert Name Role Phone Eldon Koehler MD Primary Care Provider [phone] Encounter Details Date Type Department Care Team (Late st Contact Info) Description 12/30/2006 Orders Only [facility] Internal Medicine [address] [address] Eldon Koehler MD [address] [place] [address] Social History Tobacco Use Types Packs/Day Years Used Date Smoking Tobacco: Never Assessed Comments Unknown Sex and Gender Information Value Date Recorded Sex Assigned at Not on file Legal Sex Female 3:04 AM SPRAY APPLICATOR Gender Identity Not on file Sexual Orientation Not on file documented as of this encounter Progress Notes * Eldon Koehler MD - 09/29/2007 1:43 PM CDT TIME:10:05 am PATIENT`S HOME PHONE: PATIENT`S WORK PHONE: PATIENT`S INSURANCE: [employer] [facility] WHO TOOK THE CALL: Mtira Ward L GENERAL INFORMATION ALTERNATIVE PHONE NUMBER: [phone](call pt back) WHO CALLED: Patient called. Patient reports no known allergies. PHARMACY NUMBER: [phone] PROBLEMS: Seen in the office on 12/17/06. [...] 9:40 AM CDT Office Visit [facility] Care [address] [phone] Eldon Koehler MD [address] [place] [phone] documented as of this encounter Visit Diagnoses Not on filedocumented in this encounter Additional Health Concerns Infection Onset Date Last Indicated Resolved Time R/O COVID-19 04/24/2020 04/25/2020 04/27/2020 7:01 AM SPRAY APPLICATOR R/O COVID-19 04/27/2021 05/02/2021 05/04/2021 1:16 AM SPRAY APPLICATOR documented as of this encounter Care Teams Handwriting Expert Relationship Specialty Start Date End Date Eldon Koehler MD PCP - General 10/06/07 documented as of this encounter
--- OUTSIDE RECORDS SUMMARY | 2024-06-18 08:51 | XMS_ITS | Encounter Summary ---
Author Organization Address [address] [place] [address] Care Team Providers Care Door Framer Name Role Phone Eldon Koehler MD Primary Care Provider Encounter Details Date Type Department Care Team (Late st Contact Info) Description 06/05/2007 Outpatient Historical [facility] Internal Medicine [address] [address] Eldon Koehler MD [address] [place] [address] [address] [place] [address] Social History Tobacco Use Types Packs/Day Years Used Date Smoking Tobacco: Never Assessed Comments Unknown Sex and Gender Information Value Date Recorded Sex Assigned at Not on file Legal Sex Female 3:04 AM RUG SAMPLE BEVELER Gender Identity Not on file Sexual Orientation Not on file documented as of this encounter Plan of Treatment Upcoming Encounters Date Type Department Care Team (Late st Contact Info) Description 07/27/2024 9:40 AM CDT Office Visit [facility] Primary Care [address] [place] [address] Eldon Koehler MD [address] [place] [address] [address] [place] [phone] documented as of this encounter Visit Diagnoses Not on filedocumented in this encounter Additional Health Concerns Infection Onset Date Last Indicated Resolved Time R/O COVID-19 04/24/2020 04/25/2020 04/27/2020 7:01 AM RUG SAMPLE BEVELER R/O COVID-19 04/27/2021 05/02/2021 05/04/2021 1:16 AM RUG SAMPLE BEVELER documented as of this encounter Care Teams Door Framer Relationship Specialty Start Date End Date Eldon Koehler MD PCP - General 10/06/07 documented as of this encounter
--- OUTSIDE RECORDS SUMMARY | 2024-06-18 08:51 | XMS_ITS | Referral Summary ---
Author Organization [facility] Address [address] [place] [address] Care Team Providers Care Motel Operator Name Role Phone Eldon Koehler MD [...] mcg tablet Take 150 mcg by mouth rib builder before breakfast [address] (CYMBALTA) [...] (09/05/2020): Added automatically from request for surgery [id number] Prediabetes 12/24/2019 Obesity (BMI 35.0-39.9 without comorbidity) [...] on file Legal Sex Female 11:01 PM CUT PRESS OPERATOR Gender Identity Female 01/31/2021 9:15 AM CDT Sexual Orientation Straight 08/21/2020 10 :14 AM CDT Last Filed Vital Signs Vital Sign Reading Time Taken Comments Blood Pressure 135/74 11/03/2020 11:55 AM CDT Pulse 84 11/03/2020 11:55 AM CDT Temperature 36.8 C (98.3 F) 11/03/2020 11:55 AM CDT Respiratory Rate 16 11/03/2020 11:55 AM CDT Oxygen Saturation 100% 11/03/2020 11:55 AM CDT Inhaled Oxygen Concentration - - Weight 120.2 kg (265 lb) 10/30/2020 10:40 AM CDT Height 165.1 cm (5' 5 ) 10/30/2020 10:40 AM CDT Body Mass Index 44.1 10/30/2020 10:40 AM CDT Plan of Treatment Not on file Medical Devices Implanted Type Area Air Brush Operator Device Identifier Shelf Expiration Date Model / Serial / Lot Novatris [id number] Aequalis 29mm Reverse Long Post Shoulder Baseplate Glenoid Sequeria - [id number] - [id number] Implanted:Qty: 1 on 11/02/2020 by Salomón Edmondson MD at [facility] [employer] [facility] [id number] 12/04/2022 [id number] / [id number] / [employer] [id number] 36mm Reverse Ii Center Shoulder Sphere Glenoid Titanium - [id number] - [id number] Implanted:Qty: 1 on 11/02/2020 by Salomón Edmondson MD at [facility] [employer] [id number] 05/03/2024 [id number] / [id number] / [employer] [id number] Aequalis Reversed 4.5mm 20mm Compression Glenoid Screw Baseplate - [id number] Implanted:Qty: 1 on 11/02/2020 by Salomón Edmondson MD at [facility] [employer] [facility] [id number] / / 0 [employer] [id number] Aequalis Reversed 4.5mm 23mm Compression Glenoid Screw Baseplate - [id number] Implanted:Qty: 1 on 11/02/2020 by Salomón Edmondson MD at [facility] [employer] [id number] / / 0 Tornier Inc [id number] Aequalis 4.5mm 38mm Lock Multidirectional Self Tap Shoulder Screw Latex Free - [id number] Implanted:Qty: 1 on 11/02/2020 by Salomón Edmondson MD at [facility] [employer] [id number] / / 0 [employer] [id number] Screw Bsplt 41mm 4.5mm Aequalis Shoulder Ti Lock - [id number] Implanted:Qty: 1 on 11/02/2020 by Salomón Edmondson MD at [facility] [employer] [facility] [id number] / / 0 [employer] [id number] Insert Perform 10 Deg [id number] - [id number] Implanted:Qty: 1 on 11/02/2020 by Salomón Edmondson MD at [facility] [employer] [id number] / / [id number] [employer] Dwx2ps Stem Perform Sz 2 Plus Humeral - [id number] Implanted:Qty: 1 on 11/02/2020 by Salomón Edmondson MD at [facility] [employer] [id number] / / [id number] Insurance MEDICARE [facility] MEDICARE [facility] MEDICARE MEDICARE Advance Directives For more information, please contact: [phone] * Full Code (Latest Code Status on File) Date Activated Date Inactivated Comments 11/02/2020 6:21 PM 11/03/2020 7:12 PM Care Teams Motel Operator Relationship Specialty Start Date End Date Eldon Koehler MD [address] [place] [address] ANJALI MCCANN [phone] PCP - General Internal Medicine 08/04/20
--- OUTSIDE RECORDS SUMMARY | 2024-06-18 08:51 | XMS_ITS | Encounter Summary ---
Author Organization [facility] Address [address] [place] [address] Care Team Providers Care School Age Program Associate Name Role Phone Eldon Koehler MD Primary Care Provider [phone] Encounter Details Date Type Department Care Team (Late st Contact Info) Description 08/03/2007 Orders Only [facility] Internal Medicine [address] [address] Eldon Koehler MD [address] [place] [address] Social History Tobacco Use Types Packs/Day Years Used Date Smoking Tobacco: Never Assessed Comments Unknown Sex and Gender Information Value Date Recorded Sex Assigned at Not on file Legal Sex Female 3:04 AM SUPERVISOR MACHINE WORKERS Gender Identity Not on file Sexual Orientation [...] lab LAB ORDERS: 3 mo Order number: [id number] Test Ordered: COMPREHENSIVE METABOLIC PANEL & GFR 1112 Order number: [id number] Test Ordered: LIPID PANEL 1078 Order number: [id number] Test Ordered: HEMOGLOBIN A1C 1814 Order number: [id number] Test Ordered: TSH 1720 PREVENTIVE COUNSELING The [...] Office Visit [facility] Primary Care [place] [address] Eldon Koehler MD [address] [place] [address] documented as of this encounter Visit Diagnoses Not on filedocumented in this encounter Additional Health Concerns Infection Onset Date Last Indicated Resolved Time R/O COVID-19 04/24/2020 04/25/2020 04/27/2020 7:01 AM SUPERVISOR MACHINE WORKERS R/O COVID-19 04/27/2021 05/02/2021 05/04/2021 1:16 AM SUPERVISOR MACHINE WORKERS documented as of this encounter Care Teams School Age Program Associate Relationship Specialty Start Date End Date Eldon Koehler MD PCP - General 10/06/07 documented as of this encounter
--- OUTSIDE RECORDS SUMMARY | 2024-06-18 08:51 | XMS_ITS | Clinical Summary ---
Author Organization [facility] Address [address] [place] [address] Care Team Providers Care Commercial Counsel Name Role Phone Eldon Koehler MD Primary [...] mcg tablet Take 150 mcg by mouth organizational development director before breakfast [address] (CYMBALTA) [...] (09/05/2020): Added automatically from request for surgery [id number] Prediabetes 12/24/2019 Obesity (BMI 35.0-39.9 without comorbidity) [...] on file Legal Sex Female 11:01 PM APPLICATIONS PROGRAMMER Gender Identity Female 01/31/2021 9:15 AM CDT [...] on file Medical Devices Implanted Type Area District Wire Chief Device Identifier Shelf Expiration Date Model / Serial / Lot Maizhuo [id number] Aequalis 29mm Reverse Long Post Shoulder Baseplate Glenoid Sequeira - [id number] - [id number] Implanted:Qty: 1 on 11/02/2020 by Salomón Edmondson MD at [facility] [employer] [id number] 12/04/2022 [id number] / [id number] / [employer] [id number] 36mm Reverse Ii Center Shoulder Sphere Glenoid Titanium - [id number] - [id number] Implanted:Qty: 1 on 11/02/2020 by Salomón Edmondson MD at [facility] [employer] [id number] 05/03/2024 [id number] / [id number] / Ma[employer]huo [id number] Aequalis Reversed 4.5mm 20mm Compression Glenoid Screw Baseplate - [id number] Implanted:Qty: 1 on 11/02/2020 by Salomón Edmondson MD at [facility] [employer] [id number] / / 0 Maizhuo [id number] Aequalis Reversed 4.5mm 23mm Compression Glenoid Screw Baseplate - [id number] Implanted:Qty: 1 on 11/02/2020 by Salomón Edmondson MD at [facility] [employer] [id number] / / 0 [employer] [id number] Aequalis 4.5mm 38mm Lock Multidirectional Self Tap Shoulder Screw Latex Free - [id number] Implanted:Qty: 1 on 11/02/2020 by Salomón Edmondson MD at [facility] [employer] [facility] [id number] / / 0 Tornier Inc [id number] Screw Bsplt 41mm 4.5mm Aequalis Shoulder Ti Lock - [id number] Implanted:Qty: 1 on 11/02/2020 by Salomón Edmondson MD at [facility] [employer] [facility] [id number] / / 0 [employer] [facility] [id number] Insert Perform 10 Deg Pif7434 - [id number] Implanted:Qty: 1 on 11/02/2020 by Salomón Edmondson MD at [facility] [employer] [facility] [id number] / / [id number] [employer] [facility] Dwx2ps Stem Perform Sz 2 Plus Humeral - [id number] Implanted:Qty: 1 on 11/02/2020 by Salomón Edmondson MD at [facility] [employer] [facility] [id number] / / [id number] Insurance MEDICARE [facility]ICARE [facility] MEDICARE MEDICARE Advance Directives For more information, please contact: [phone] * Full Code (Latest Code Status on File) Date Activated Date Inactivated Comments 11/02/2020 6:21 PM 11/03/2020 7:12 PM Care Teams Commercial Counsel Relationship Specialty Start Date End Date Eldon Koehler MD [address] [facility] [place] [address] PCP - General Internal Medicine 08/04/20
--- OUTSIDE RECORDS SUMMARY | 2024-06-18 08:51 | XMS_ITS | Encounter Summary ---
Author Organization [facility] Address [address] [place] [address] Care Team Providers Care Recreation Therapy Teacher Name Role Phone Eldon Koehler MD Primary Care Provider [phone] Encounter Details Date Type Department Care Team (Late st Contact Info) Description 01/05/2007 Orders Only [facility] Internal Medicine [address] [address] Eldon Koehler MD [address] [place] [address] Social History Tobacco Use Types Packs/Day Years Used Date Smoking Tobacco: Never Assessed Comments Unknown Sex and Gender Information Value Date Recorded Sex Assigned at Not on file Legal Sex Female 3:04 AM CDC ASSOCIATE Gender Identity Not on file Sexual Orientation Not on file documented as of this encounter Progress Notes * Eldon Koehler MD - 09/29/2007 3:23 PM CDT TIME:11:16 am PATIENT`S HOME PHONE: PATIENT`S WORK PHONE: PATIENT`S INSURANCE: [employer] [facility] WHO TOOK THE CALL: Iliana Mike C GENERAL INFORMATION ALTERNATIVE PHONE NUMBER: [phone] WHO CALLED: Patient called. PROBLEMS: Requip is [...] Description 07/27/2024 9:40 AM CDT Office Visit [facility] [place] [address] Eldon Koehler MD [address] [place] [address] documented as of this encounter Visit Diagnoses Not on filedocumented in this encounter Additional Health Concerns Infection Onset Date Last Indicated Resolved Time R/O COVID-19 04/24/2020 04/25/2020 04/27/2020 7:01 AM CDC ASSOCIATE R/O COVID-19 04/27/2021 05/02/2021 05/04/2021 1:16 AM CDC ASSOCIATE documented as of this encounter Care Teams Recreation Therapy Teacher Relationship Specialty Start Date End Date Eldon Koehler MD PCP - General 10/06/07 documented as of this encounter
--- OUTSIDE RECORDS SUMMARY | 2024-06-18 08:51 | XMS_ITS | Encounter Summary ---
Author Organization [facility] Address [address] [place] [address] Care Team Providers Care Mercury Cracking Tester Name Role Phone Giselle Kelley MD Primary Care Provider [phone] Encounter Details Date Type Department Care Team (Late st Contact Info) Description 12/17/2006 Orders Only [facility] Internal Medicine [address] [address] Giselle Kelley MD [address] [place] [address] Social History Tobacco Use Types Packs/Day Years Used Date Smoking Tobacco: Never Assessed Comments Unknown Sex and Gender Information Value Date Recorded Sex Assigned at Not on file Legal Sex Female 3:04 AM ENGINEERING CLERK Gender Identity Not on file Sexual Orientation Not on file documented as of this encounter Progress Notes * Giselle Kelley MD - 09/29/2007 11:57 AM CDT CENTRAL TEST SCHEDULING DATE: DEC 17, 2006 Note created by: Patty Espinoza E 03:45 p Patient Name : WINIFRED PIPER [address]: [address] [place] [address]. [address] D.O.B: 1950 SSN: [id number] Parent/Guardian if applicable: Work Phone: Patient Insurance: ID#: Group#: ORDER(S) #: [id number] mammo PLEASE SCHEDULE THE APPOINTMENT AT THE FOLLOWING LOCATION: [facility] [phone]. SPECIAL SCHEDULING INSTRUCTIONS: pt to schedule ORDERING PHYSICIAN: GISELLE KELLEY MD OFFICE STEEL TURNER & PHONE: Patty Espinoza E * Giselle [...] lab LAB ORDERS: 2 mo Order number: [id number] Test Ordered: COMPREHENSIVE METABOLIC PANEL & GFR 1112 Order number: [id number] Test Ordered: LIPID PANEL 1078 Order number: [id number] Test Ordered: TSH 1720 Order number: [id number] Test Ordered: FERRITIN 1715 Order number: [id number] Test Ordered: CBC W/ DIFFERENTIAL 3150 Order number: [id number] Test Ordered: MAMMOGRAM BI-LATERAL (2 VIEWS) 272.4-HYPERLIPIDEMIA [...] [facility] [address] [place] [address] Giselle Kelley MD [address] [place] [address] [address] [place] [address] documented as of this encounter Visit Diagnoses Not on filedocumented in this encounter Additional Health Concerns Infection Onset Date Last Indicated Resolved Time R/O COVID-19 04/24/2020 04/25/2020 04/27/2020 7:01 AM ENGINEERING CLERK R/O COVID-19 04/27/2021 05/02/2021 05/04/2021 1:16 AM ENGINEERING CLERK documented as of this encounter Care Teams Mercury Cracking Tester Relationship Specialty Start Date End Date Giselle Kelley MD PCP - General 10/06/07 documented as of this encounter
--- OUTSIDE RECORDS SUMMARY | 2024-06-18 08:51 | XMS_ITS | Encounter Summary ---
Author Organization [facility] Address [address] [place] [address] Care Team Providers Care Pattern Setter Name Role Phone Eldon Koehler MD Primary Care Provider [phone] Encounter Details Date Type Department Care Team (Late st Contact Info) Description 12/17/2006 Outpatient Historical [facility] Internal Medicine [address] [phone] Eldon Koehler MD [address] [place] [address] [address] [place] [address] Social History Tobacco Use Types Packs/Day Years Used Date Smoking Tobacco: Never Assessed Comments Unknown Sex and Gender Information Value Date Recorded Sex Assigned at Not on file Legal Sex Female 3:04 AM TRAINING TECHNICIAN Gender Identity Not on file Sexual Orientation Not on file documented as of this encounter Last Filed Vital Signs Vital Sign Reading Time Taken Comments Blood Pressure 120/70 12/17/2006 3:00 PM CDT Pulse - - Temperature - - Respiratory Rate - - Oxygen Saturation - - Inhaled Oxygen Concentration - - Weight 114.8 kg (253 lb) 12/17/2006 3:00 PM CDT Height - - Body Mass Index 39.63 06/08/2003 3:30 PM TRAINING TECHNICIAN documented in this encounter Plan of Treatment Upcoming Encounters Date Type Department Care Team (Late st Contact Info) Description 07/27/2024 9:40 AM CDT Office Visit [facility] Primary Care [address] [place] [phone] Eldon Koehler MD [address] [place] [address] [address] [place] [phone] documented as of this encounter Visit Diagnoses Not on filedocumented in this encounter Additional Health Concerns Infection Onset Date Last Indicated Resolved Time R/O COVID-19 04/24/2020 04/25/2020 04/27/2020 7:01 AM TRAINING TECHNICIAN R/O COVID-19 04/27/2021 05/02/2021 05/04/2021 1:16 AM TRAINING TECHNICIAN documented as of this encounter Care Teams Pattern Setter Relationship Specialty Start Date End Date Eldon Koehler MD PCP - General 10/06/07 documented as of this encounter
--- OUTSIDE RECORDS SUMMARY | 2024-06-18 08:51 | XMS_ITS | Encounter Summary ---
Author Organization [facility] Address [address] [place] [address] Care Team Providers Care Secretary Administrative Assistant Name Role Phone Eldon Koehler MD Primary Care Provider [phone] Encounter Details Date Type Department Care Team (Late st Contact Info) Description 06/05/2007 Orders Only [facility] Internal Medicine [address] [address] Eldon Koehler MD [address] [place] [address] Social History Tobacco Use Types Packs/Day Years Used Date Smoking Tobacco: Never Assessed Comments Unknown Sex and Gender Information Value Date Recorded Sex Assigned at Not on file Legal Sex Female 3:04 AM UNIT REACTOR OPERATOR Gender Identity Not on file Sexual [...] 244.9-HYPOTHYROIDISM contm ed LAB ORDERS: Order number: [id number] Test Ordered: COMPREHENSIVE METABOLIC PANEL & GFR 1112 Order number: [id number] Test Ordered: HEMOGLOBIN A1C 1814 Order number: [id number] Test Ordered: TSH 1720 Order number: [id number] Test Ordered: VITAMIN B12 LEVEL 1719 Order number: [id number] Test Ordered: SLEEP STUDY 272.4-HYPERLIPIDEMIA cont med, [...] Office Visit [facility] [place] [address] Eldon Koehler MD [address] [place], [place] [phone] documented as of this encounter Visit Diagnoses Not on filedocumented in this encounter Additional Health Concerns Infection Onset Date Last Indicated Resolved Time R/O COVID-19 04/24/2020 04/25/2020 04/27/2020 7:01 AM UNIT REACTOR OPERATOR R/O COVID-19 04/27/2021 05/02/2021 05/04/2021 1:16 AM UNIT REACTOR OPERATOR documented as of this encounter Care Teams Secretary Administrative Assistant Relationship Specialty Start Date End Date Eldon Koehler MD PCP - General 10/06/07 documented as of this encounter
--- OUTSIDE RECORDS SUMMARY | 2024-06-18 08:51 | XMS_ITS | Clinical Summary ---
Author Organization [facility] Address [address] [place] [address] Care Team Providers Care Gift Basket Packer Name Role Phone Eldon Koehler MD Primary Care Provider [phone] Allergies Active Allergy Reactions Criticality Noted Date Comments Clindamycin Rash,Itching Medium 09/03/2010 Codeine Nausea and Vomiting Low 08/29/2008 Nickel Hives High Nsaids (Non-Steroidal Anti-Inflammatory Drug) Other (See Comments) Low 02/05/2017 S/P SLEEVE GASTRECTOMY Medications OTHER mvi gummies for women over 50 Calcium with D3 gummies B12 gummies 1500mcg Active rOPINIRole (REQUIP) 0.5 mg tablet Take 1 Tablet (0.5 mg) by mouth late in the day. 90 Tablet 3 03/29/20 21 Active Additional Information Patient not taking.Reported on 01/21/2024 albuterol sulfate HFA 90 mcg/actuation aerosol inhaler Take 2 Puffs by inhalation 4 times daily as needed for Shortness of Breath. 8.5 Gram 2 08/03/19 23 Active rOPINIRole (REQUIP) 2 mg Tablet Take 1 Tablet (2 mg) by mouth daily at bedtime. 90 Tablet 3 12/25/19 23 Active Additional Information Patient not taking.Reported on 01/21/2024 busPIRone (BUSPAR) 10 mg tabletIndications: Recurrent major depressive disorder, in partial remission Take 1 Tablet (10 mg) by mouth 3 times daily. 180 Tablet 3 12/25/19 23 Active HYDROcodone-acetam inophen (NORCO) 5-325 mg tabletIndications: Lumbar radiculopathy Take 1 Tablet by mouth every 4 hours as needed for Pain, Moderate. Max Daily Amount: 6 Tablets 42 Tablet 01/15/20 23 Active LORazepam (ATIVAN) 0.5 mg tabletIndications: Claustrophobia Take 1 Tablet (0.5 mg) by mouth see administration instructions. 1 tab before mri take another if still anxious 1 Tablet 02/14/20 Active benzonatate (TESSALON) 200 mg capsule Take 1 Capsule (200 mg) by mouth 3 times daily as needed for Cough. 30 Capsule 2 06/20/19 24 Active Additional Information Patient not taking.Reported on 07/15/2023 methylPREDNISolone (MEDROL DOSPACK) 4 mg Tablets, Dose Pack As directed 21 Tablet 07/04/19 Active Additional Information Patient not taking.Reported on 07/15/2023 pregabalin (LYRICA) 50 mg CapsuleIndications :Fibromyalgia take 1 capsule by mouth every 12 hours 180 Capsule 3 07/14/19 24 Active modafiniL (PROVIGIL) 100 mg TabletIndications: Other sleep apnea Take 1 Tablet (100 mg) by mouth daily. 30 Tablet 3 07/15/19 24 Active rOPINIRole (REQUIP) 3 mg Tablet Take 1 Tablet (3 mg) by mouth daily at bedtime. 100 Tablet 3 09/04/19 24 Active ezetimibe (ZETIA) 10 mg tabletIndications: Other hyperlipidemia take 1 tablet by mouth daily 90 Tablet 3 12/05/19 24 Active atorvastatin (LIPITOR) 20 mg tabletIndications: Other hyperlipidemia TAKE 1 TABLET BY MOUTH LATE IN THE DAY 90 Tablet 3 12/23/19 24 Active omeprazole (PriLOSEC) 20 mg Capsule, Delayed Release(E.C.)Indic ations:Gastroesoph ageal reflux disease without esophagitis take 1 capsule by mouth daily 90 Capsule 3 12/23/19 24 Active DULoxetine (CYMBALTA) 60 mg Capsule, Delayed Release(E.C.)Indic ations:Recurrent major depressive disorder, in partial remission take 1 capsule by mouth daily 90 Capsule 3 12/23/19 24 Active metoprolol succinate (TOPROL XL) 25 mg Extended Release 24 hour tablet take 1 tablet by mouth daily 90 Tablet 3 12/23/19 24 Active levothyroxine 150 mcg tabletIndications: Other specified hypothyroidism take 1 tablet by mouth daily 90 Tablet 3 12/23/19 24 Active buPROPion HCL (WELLBUTRIN SR) 150 mg Sustained Release 12 hour tabletIndications: Recurrent major depressive disorder, in partial remission take 1 tablet by mouth daily 90 Tablet 3 12/23/19 24 Active celecoxib (CeleBREX) 200 mg capsuleIndications :Fibromyalgia TAKE 1 CAPSULE BY MOUTH TWICE DAILY 180 Capsule 3 12/23/19 24 Active clotrimazole (LOTRIMIN) 1 % Cream Apply to affected area 2 times daily. 85 Gram 3 02/16/20 24 Active tirzepatide (Mounjaro) 2.5 mg/0.5 mL Pen Injector Lot: [id number] ex: 01/30/2025 qty: 1 0.5 mL 02/17/20 24 Active tirzepatide (Mounjaro) 2.5 mg/0.5 mL Pen Injector Inject 2.5 mg by subcutaneous injection every 7 days. 6 mL 2 02/20/20 24 Active methylPREDNISolone (MEDROL DOSPACK) 4 mg Tablets, Dose Pack As directed 21 Tablet 03/01/20 24 Active clotrimazole-betam ethasone (LOTRISONE) 1-0.05 % Cream Apply to affected area 2 times daily. 45 Gram 2 03/01/20 24 Active ketoconazole (NIZORAL) 2 % Shampoo Use daily 120 mL 1 03/01/20 24 Active Active Problems Patient Care Coordination No [...] Encounters Date Type Department Care Team Description 06/15/2024 External Device Data [facility] ABSTRACTION Provider, Abstract 06/15/[address] [place] [address] Provider, Abstract 06/01/[address] [place] [address] Eldon Koehler MD 05/27/2024 Orders Only [facility] [address] [place] [address] [address] [place] [address] Provider, Abstract from Last 3 Months Immunizations Immunization Administration Dates Next Due (ADACEL/BOOSTRIX)(10 YR UP) TDAP VACCINE, 0.5ML, IM 03/13/2010 (PFIZER)(12 YR UP) COVID-19 VACCINE - EMERGENCY USE AUTHORIZATION, MRNA, [id number]) 30 MCG/0.3 ML IM SUSP 04/06/2021,07/29/2020,07/07/2020 (PNEUMOVAX [...] How often do you attend chur or roman catholic services? More than 4 times per year [...] of Transportation (Non-Medical) Not on file 08/08/2021 Comments No Sex and Gender Information Value Date Recorded Sex Assigned at Not on file Legal Sex Female 3:04 AM PRACTICAL NURSING TEACHER Gender Identity Not on file Sexual Orientation Not on file Occupation Industry Job Start Date Job End Date RETIRED Not on file Not on file Not on file Last Filed Vital Signs Vital Sign Reading Time Taken Comments Blood Pressure 126/78 03/01/2024 3:29 PM CDT Pulse 94 03/01/2024 3:29 PM CDT Temperature 36.6 C (97.8 F) 01/14/2023 2:32 PM CDT Respiratory Rate 17 01/14/2023 2:32 PM CDT [...] 9:40 AM CDT Office Visit [facility] Care [place] [address] [place] [address] Eldon Koehler MD [address] [place] [address] [address] [place] [phone] Health Maintenance Due Date Last Done Comments [...] 07/03/2023, 07/09/2022, Additional history exists COVID-19 Vaccine (2023-2 5 season) 2024 02/15/2024, 04/06/2021, 07/29/2020, Additional history exists DIABETES: A1C (Auto Order) 07/03/202407/03, 07/03/2023, 07/09/2022, Additional history exists LDL CHOLESTEROL ANNUAL 07/03/2024 , 07/02/2022, 08/01/2021, Additional history exists DIABETES ANNUAL RETINAL EXAM 12/04/2024, 11/20/2023, 11/10/2023 (Previously completed) DIABETES ANNUAL FOOT EXAM 01/20/20252023, 01/01/2022, 12/05/2020 Traditional Medicare (O) A nnual Wellness Visit 01/21/2025 01/21/2024, 08/08/2021, [...] Diagnosis Comments CT HEAD WO CONTRAST Routine 05/15/2024 4 :27 PM PRACTICAL NURSING TEACHER LIPID PANEL Routine 07/03/2023 9:11 AM PRACTICAL NURSING TEACHER Other hyperlipidemia HEMOGLOBIN A1C Routine 07/03/2023 9:11 AM PRACTICAL NURSING TEACHER Type 2 diabetes mellitus without complication, unspecified whether 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 insulin use ([facility]) MAMMO SCREEN BILAT W OR WO CAD Routine 11/18/2022 Visit for screening mammogram MICROALBUMIN/CREATI NINE RATIO, RANDOM UR Routine 07/02/2022 8:21 AM PRACTICAL NURSING TEACHER COLONOSCOPY REPORT 08/08/2020 12 :38 PM CDT XR DEXA BONE DENSITY 2 SITES Routine 11/04/2019 from Last 3 Months or Most Recently Relevant to Health Maintenance Results * CT HEAD WO CONTRAST (05/15/2024 4:27 PM PRACTICAL NURSING TEACHER) Anatomical Region Laterality Modality Head Other us Abstract Provider CT ORDERABLES Edited Result - Final * (ABNORMAL) HEMOGLOBIN A1C (07/03/2023 9:11 AM PRACTICAL NURSING TEACHER) HEMOGLOBIN A1C 5.7(H) <5.7 % of total Hgb [facility] Comment: For someone without known diabetes, [...] children. ESTIMATED AVERAGE GLUCOSE (MG/DL) 117 mg/dL [facility] ESTIMATED AVERAGE GLUCOSE (MMOL/L) 6.5 mmol/L [facility] Comment: This test was performed on the [employer] Faculty Member c8000 platform. Please be advised that [facility] will move hemoglobin A1c testing to the Eyad platform soon. In general, direct comparison of the results from different platforms is not recommended. FASTING:YES FASTING: YES Test Performed at: [facility] [place] [address] [address] [place] [address] LeidyShelly Moore Vo Blood 07/03/2023 9:11 AM PRACTICAL NURSING TEACHER 07/03/2023 9:12 AM PRACTICAL NURSING TEACHER us Eldon Koehler MD CHEMISTRY ORDERABLES Final Re sult [facility] [phone] [place] [address] [address] [place] [address] * (ABNORMAL) LIPID PANEL (07/03/2023 9:11 AM PRACTICAL NURSING TEACHER) CHOLESTEROL 212(H) <200 mg/dL [facility] HDL 48(L) > OR = 50 mg/dL [facility] TRIGLYCERIDE 160(H) <150 mg/dL [facility] LDL CALCULATED 134(H) mg/dL (calc) [facility] Comment: Reference range: <100 Desirable range <100 mg/dL for primary prevention; <70 mg/dL for patients with CHD or diabetic patients with > or = 2 CHD risk factors. LDL-C is now calculated using the Christopher-Марина calculation, which is a validated novel method providing better accuracy than the Friedewald equation in the estimation of LDL-C. Christopher SS et al. ERLIN. 2013;310(19): 4445-5468 (http://education.[employer]/faq/DEG565) CHOL/HDL RATIO 4.4 <5.0 (calc) [facility] TOTAL NON-HDL CHOL(LDL+VLDL) 164(H) <130 mg/dL (calc) [facility] Comment: For patients with diabetes plus 1 major ASCVD risk factor, treating to a non-HDL-C goal of <100 mg/dL (LDL-C of <70 mg/dL) is considered a therapeutic option. Test Performed at: [employer] [place] [address] Marty Duckworth MD Blood 07/03/2023 9:11 AM PRACTICAL NURSING TEACHER 07/03/2023 9:12 AM PRACTICAL NURSING TEACHER Eldon Koelher MD CHEMISTRY ORDERABLES Final Re sult [facility] [phone] [employer] [facility] [place] [address] * MAMMO SCREEN BILAT W OR WO CAD (11/18/2022) Anatomical Region Laterality Modality Breast Bilateral Other Eldon Koehler MD MAMMO ORDERABLES Final Result * MICROALBUMIN/CREATININE RATIO, RANDOM UR (07/02/2022 8:21 AM PRACTICAL NURSING TEACHER) Creatinine, Urine 207 20 - 275 mg/dL [facility] MICROALBUMIN, URINE 1.3 See Note: mg/dL [facility] Comment: Reference Range: Reference Range Not established MICROALBUMIN/CREAT RATIO, UR 6 <30 mcg/mg creat [facility] Comment: The ADA defines abnormalities in albumin excretion as follows: Albuminuria Category Result (mcg/mg creatinine) Normal to Mildly increased <30 Moderately increased 30-299 Severely increased > OR = 300 The ADA recommends that at least two of three specimens collected within a 3-6 month period be abnormal before considering a patient to be within a diagnostic category. FASTING:YES FASTING: YES Test Performed at: [place] [address] Marty Duckworth MD 07/02/2022 8:21 AM PRACTICAL NURSING TEACHER 07/02/2022 8:21 AM PRACTICAL NURSING TEACHER Eldon Koehler MD URINE ORDERABLES Final Result [facility] [phone] [facility] [place] [address] [place] [address] * COLONOSCOPY REPORT (08/08/2020 12:38 PM CDT) Narrative Procedure Note Osei Sutton MD - 08/08/2020 12:38 PM CDT [facility] Endoscopy Patient Name: Winifred Rodriguez Procedure Date: [...] electronically. Number of Addenda: [address]; [place] [address] us Osei Sutton MD GI PROCEDURE ORDERABLES Final R esult * XR DEXA BONE DENSITY 2 SITES (11/04/2019) Anatomical Region Laterality Modality Other us Abstract Provider DIAGNOSTIC IMAGING ORDERABLES Final Result from Last 3 Months or Most Recently Relevant to Health Maintenance Insurance MEDICARE PART A AND B [facility] [id number] RX OPT[employer] RX Member Subscriber Plan / Payer (Ef fective 2015-Present) Name:Winifred Rodriguez Relation to Subscriber:Self Name:Winifred Rodriguez Payer ID:Not on file Group ID:[id number] Type:RX Medicare Part D Address: [place] Advance Directives For more information, please contact: [phone] * Full Code (Latest Code Status on [...] 10:22 AM 03/15/2015 4:14 PM Care Teams Gift Basket Packer Relationship Specialty Start Date End Date Eldon Koehler MD PCP - General 10/06/07
== END 2024-06-18 08:38 | disposition home or self-care (01) ==
LOC: ANHIMG 08:42
PROVIDERS: PCP Internal Medicine; Visit Provider Internal Medicine
DX: Z12.31 Encounter for screening mammogram for malignant neoplasm of breast (principal)
CPT/HCPCS: 77063; 77067

== ENCOUNTER 2024-08-06 10:08 | Outpatient (CLI) | payer MEDICARE, SELFPAY ==
--- NOTE | ~2024-08-06 | DEXA_ITS ---
Bone Density Report Name: TAMIKA PIPER Age: 74 Sex: Female Ethnicity: White Date of : 1950 Indication: screening for osteoporosis; height loss; asthma or emphysema; Referring Provider: ALLIE, GISELLE [place] Study: Bone densitometry was performed. Exam Date: August 06, 2024 Accession number: [id number] Bone Density: Region BMD T-score Z-score Classification AP Spine(L1, L2) 1.218 2.2 4.3 Normal Femoral Neck (Left) 0.649 -1.8 0.1 Osteopenia Total Hip (Left) 0.854 -0.7 0.9 Normal Femoral Neck (Right) 0.720 -1.2 0.8 Osteopenia Total Hip (Right) 0.862 -0.7 1.0 Normal Total Hip Mean 0.858 -0.7 1.0 Normal World Health Organization criteria for BMD impression classify patients as: Normal (T-score at or above -1.0), Osteopenia (T-score between -1.0 and -2.5), or Osteoporosis (T-score at or below -2.5). 10-year Fracture Risk: FRAX not reported because: Premenopausal woman Previous Exams: Region Exam Age BMD T-score BMD Change BMD Change Date g/cm2 vs Baseline vs Previous AP Spine (L1-L2) 08/06/2024 74 1.218 2.2 0.062 (5.4%)# 0.062 (5.4%)# 11/04/2019 69 1.156 1.6 Total Hip(Left) 08/06/2024 74 0.854 -0.7 -0.085 (-9.0%) -0.085 (-9.0%) 11/04/2019 69 0.939 0.0 Total Hip(Right) 08/06/2024 74 0.862 -0.7 -0.003 (-0.3%) -0.003 (-0.3%) 11/04/2019 69 0.865 -0.6 *Denotes significance at 95% confidence level, LSC for AP Spine = 0.022 g/cm2, LSC for Total Hip = 0.027 g/cm2 # Denotes dissimilar scan types or analysis methods Clinical Information Provided by Patient: Has used the following medications: Calcium Has the following medical conditions: Asthma or Emphysema Patient maximum height was 67 Menopause Age: 52 No regular weight bearing exercise Drinks caffeinated beverages Onset of menses at age 14 Premenopausal Number of children 0 Impression: The patient's bone mass is within expected range for age, gender and ethnicity. No significant bone loss was observed. Discussion: BONE DENSITY IS WITHIN EXPECTED LIMITS FOR AGE, SEX AND RACE. Bone density is within expected limits for age, sex and race at all sites measured. The patient should follow a healthful lifestyle (good nutrition with adequate calcium and vitamin D, and appropriate weight-bearing exercise). Follow-Up: Consider repeating this study in 2 to 3 years to reassess this patient's status, or sooner if there is some new clinical indication. Reported by: JACINTA on 08/06/2024 11:07:00 AM. Reviewed, dictated and finalized at location [place] [facility]
--- OUTSIDE RECORDS SUMMARY | 2024-08-06 11:15 | XMS_ITS | Referral Summary ---
Author Organization [facility] Address [address] [place] [address] Care Team Providers Care Ems Manager Name Role Phone Eldon Koehler MD [...] mcg tablet Take 150 mcg by mouth fibreglass lay up worker before breakfast [address] (CYMBALTA) [...] (09/05/2020): Added automatically from request for surgery [id number] Prediabetes 12/24/2019 Obesity (BMI 35.0-39.9 without comorbidity) [...] on file Legal Sex Female 11:01 PM DRAW PRESS OPERATOR Gender Identity Female 01/31/2021 9:15 [...] on file Medical Devices Implanted Type Area Melting Operator Device Identifier Shelf Expiration Date Model / Serial / Lot Medityplus [id number] Aequalis 29mm Reverse Long Post Shoulder Baseplate Glenoid Sequeira - [id number] - [id number] Implanted:Qty: 1 on 11/02/2020 by Salomón Edmondson MD at [facility] Astonish Results [facility] [id number] 12/04/2022 [id number] / [id number] / [employer]ston[employer] [id number] 36mm Reverse Ii Center Shoulder Sphere Glenoid Titanium - [id number] - [id number] Implanted:Qty: 1 on 11/02/2020 by Salomón Edmondson MD at [facility] [employer] [id number] 05/03/2024 [id number] / [id number] / Nalace CorporationniRealSpeaker Inc Inc [id number] Aequalis Reversed 4.5mm 20mm Compression Glenoid Screw Baseplate - [id number] Implanted:Qty: 1 on 11/02/2020 by Salomón Edmondson MD at [facility] [employer] [facility] [id number] / / 0 Nalace CorporationniRealSpeaker Inc Inc [id number] Aequalis Reversed 4.5mm 23mm Compression Glenoid Screw Baseplate - [id number] Implanted:Qty: 1 on 11/02/2020 by Salomón Edmondson MD at [facility] Pre Play Sports [id number] / / 0 Tornier Inc [id number] Aequalis 4.5mm 38mm Lock Multidirectional Self Tap Shoulder Screw Latex Free - [id number] Implanted:Qty: 1 on 11/02/2020 by Salomón Edmondson MD at [facility] [employer] [id number] / / 0 Nalace CorporationniRealSpeaker Inc Inc [id number] Screw Bsplt 41mm 4.5mm Aequalis Shoulder Ti Lock - [id number] Implanted:Qty: 1 on 11/02/2020 by Salomón Edmondson MD at [facility] L2 [facility] [id number] / / 0 [employer] [id number] Insert Perform 10 Deg [id number] - [id number] Implanted:Qty: 1 on 11/02/2020 by Slaomón Edmondson MD at [facility] [employer] [id number] / / [id number] [employer] Dwx2ps Stem Perform Sz 2 Plus Humeral - [id number] Implanted:Qty: 1 on 11/02/2020 by Salomón Edmondson MD at [facility] [employer] [id number] / / [id number] Insurance MEDICARE [facility] MEDICARE [facility] MEDICARE MEDICARE Advance Directives For more information, please contact: [phone] * Full Code (Latest Code Status on File) Date Activated Date Inactivated Comments 11/02/2020 6:21 PM 11/03/2020 7:12 PM Care Teams Ems Manager Relationship Specialty Start Date End Date Eldon Koehler MD PCP - General Internal Medicine 08/04/20
--- OUTSIDE RECORDS SUMMARY | 2024-08-06 11:15 | XMS_ITS | Encounter Summary ---
Author Organization [facility] Address [address] [place] [address] Care Team Providers Care Food Counselor Name Role Phone Eldon Koehler MD Primary Care Provider [phone] Encounter Details Date Type Department Care Team (Late st Contact Info) Description 12/30/2006 Orders Only [facility] Internal Medicine [address] [address] Eldon Koehler MD [address] [place] [address] Social History Tobacco Use Types Packs/Day Years Used Date Smoking Tobacco: Never Assessed Comments Unknown Sex and Gender Information Value Date Recorded Sex Assigned at Not on file Legal Sex Female 3:04 AM PORT SURVEYOR Gender Identity Not on file Sexual Orientation Not on file documented as of this encounter Progress Notes * Eldon Koehler MD - 09/29/2007 1:43 PM CDT TIME:10:05 am PATIENT`S HOME PHONE: PATIENT`S WORK PHONE: PATIENT`S INSURANCE: [employer] [facility] WHO TOOK THE CALL: Mitra Ward L GENERAL INFORMATION ALTERNATIVE PHONE NUMBER: [phone](call pt back) WHO CALLED: Patient called. Patient reports no known allergies. PHARMACY NUMBER: [phone] PROBLEMS: Seen in the office on 12/17/06. [...] Care Team (Late st Contact Info) Description 02/04/2025 10:40 AM CDT Office Visit [facility] Care [address] [phone] Eldon Koehler MD [address] [place] [phone] documented as of this encounter Visit Diagnoses Not on filedocumented in this encounter Additional Health Concerns Infection Onset Date Last Indicated Resolved Time R/O COVID-19 04/24/2020 04/25/2020 04/27/2020 7:01 AM PORT SURVEYOR R/O COVID-19 04/27/2021 05/02/2021 05/04/2021 1:16 AM PORT SURVEYOR documented as of this encounter Care Teams Food Counselor Relationship Specialty Start Date End Date Eldon Koehler MD PCP - General 10/06/07 documented as of this encounter
--- OUTSIDE RECORDS SUMMARY | 2024-08-06 11:15 | XMS_ITS | Encounter Summary ---
Author Organization [facility] Address [address] [place] [address] Care Team Providers Care Manager Managed Care Name Role Phone Eldon Koehler MD Primary Care Provider [phone] Encounter Details Date Type Department Care Team (Late st Contact Info) Description 06/05/2007 Orders Only [facility] Internal Medicine [address] [address] Eldon Koehler MD [address] [place] [address] Social History Tobacco Use Types Packs/Day Years Used Date Smoking Tobacco: Never Assessed Comments Unknown Sex and Gender Information Value Date Recorded Sex Assigned at Not on file Legal Sex Female 3:04 AM DRILL DOCTOR Gender Identity Not on file Sexual Orientation [...] 244.9-HYPOTHYROIDISM contm ed LAB ORDERS: Order number: [id number] Test Ordered: COMPREHENSIVE METABOLIC PANEL & GFR 1112 Order number: [id number] Test Ordered: HEMOGLOBIN A1C 1814 Order number: [id number] Test Ordered: TSH 1720 Order number: [id number] Test Ordered: VITAMIN B12 LEVEL 1719 Order number: [id number] Test Ordered: SLEEP STUDY 272.4-HYPERLIPIDEMIA cont med, [...] Description 02/04/2025 10:40 AM CDT Office Visit [facility] [place] [address] Eldon Koehler MD [address] [place], [place] [id number] documented as of this encounter Visit Diagnoses Not on filedocumented in this encounter Additional Health Concerns Infection Onset Date Last Indicated Resolved Time R/O COVID-19 04/24/2020 04/25/2020 04/27/2020 7:01 AM DRILL DOCTOR R/O COVID-19 04/27/2021 05/02/2021 05/04/2021 1:16 AM DRILL DOCTOR documented as of this encounter Care Teams Manager Managed Care Relationship Specialty Start Date End Date Eldon Koehler MD PCP - General 10/06/07 documented as of this encounter
--- OUTSIDE RECORDS SUMMARY | 2024-08-06 11:15 | XMS_ITS | Encounter Summary ---
Author Organization [facility] Address 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 Full range of motion. Normal stability, strength and tone. PSYCHIATRIC: Judgment appropriate. Oriented. Normal [...] lab LAB ORDERS: 3 mo Order number: [id number] Test Ordered: COMPREHENSIVE METABOLIC PANEL & GFR 1112 Order number: [id number] Test Ordered: LIPID PANEL 1078 Order number: [id number] Test Ordered: HEMOGLOBIN A1C 1814 Order number: [id number] Test Ordered: TSH 1720 PREVENTIVE COUNSELING The [...] Description 02/04/2025 10:40 AM CDT Office Visit [facility] Primary Care [place] [address] Eldon Koehler MD [address] [place] [address] documented as of this encounter Visit Diagnoses Not on filedocumented in this encounter Additional Health Concerns Infection Onset Date Last Indicated Resolved Time R/O COVID-19 04/24/2020 04/25/2020 04/27/2020 7:01 AM RAILWAY TRACK WORKER R/O COVID-19 04/27/2021 05/02/2021 05/04/2021 1:16 AM RAILWAY TRACK WORKER documented as of this encounter Care Teams Aerial Hurricane Hunter Relationship Specialty Start Date End Date Eldon Koehler MD PCP - General 10/06/07 documented as of this encounter
--- OUTSIDE RECORDS SUMMARY | 2024-08-06 11:15 | XMS_ITS | Encounter Summary ---
Author Organization [facility] Address [address] [place] [address] Care Team Providers Care Vault Manager Name Role Phone Eldon Koehler MD Primary Care Provider [phone] Encounter Details Date Type Department Care Team (Late st Contact Info) Description 10/13/2003 Outpatient Historical [facility] Internal Medicine [address] [address] Eldon Koehler MD [address] [place] [address] [address] [place] [address] Social History Tobacco Use Types Packs/Day Years Used Date Smoking Tobacco: Never Assessed Comments Unknown Sex and Gender Information Value Date Recorded Sex Assigned at Not on file Legal Sex Female 3:04 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 Gender Identity Not on file Sexual Orientation Not on file documented as of this encounter Plan of Treatment Upcoming Encounters Date Type Department Care Team (Late st Contact Info) Description 02/04/2025 10:40 AM CDT Office Visit [facility] Primary Care [address] [place] [address] Eldon Koehler MD [address] [place] [address] [address] [place] [address] documented as of this encounter Visit Diagnoses Not on filedocumented in this encounter Additional Health Concerns Infection Onset Date Last Indicated Resolved Time R/O COVID-19 04/24/2020 04/25/2020 04/27/2020 7:01 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 R/O COVID-19 04/27/2021 05/02/2021 05/04/2021 1:16 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 documented as of this encounter Care Teams Vault Manager Relationship Specialty Start Date End Date Eldon Koehler MD PCP - General 10/06/07 documented as of this encounter
--- OUTSIDE RECORDS SUMMARY | 2024-08-06 11:15 | XMS_ITS | Encounter Summary ---
Author Organization [facility] Address [address] [place] [address] Care Team Providers Care Business Intelligence Administrator Name Role Phone Eldon Koehler MD Primary Care Provider [phone] Encounter Details Date Type Department Care Team (Late st Contact Info) Description 08/26/2006 Orders Only [facility] Internal Medicine [address] [address] Eldon Koehler MD [address] [place] [address] Social History Tobacco Use Types Packs/Day Years Used Date Smoking Tobacco: Never Assessed Comments Unknown Sex and Gender Information Value Date Recorded Sex Assigned at Not on file Legal Sex Female 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 Gender Identity Not on file Sexual Orientation [...] Description 02/04/2025 10:40 AM CDT Office Visit [facility] Primary Care [place] [address] Eldon Koehler MD [address] [place] [address] documented as of this encounter Visit Diagnoses Not on filedocumented in this encounter Additional Health Concerns Infection Onset Date Last Indicated Resolved Time R/O COVID-19 04/24/2020 04/25/2020 04/27/2020 7:01 AM 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 PRINTER R/O COVID-19 04/27/2021 05/02/2021 05/04/2021 1:16 AM 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 PRINTER documented as of this encounter Care Teams Business Intelligence Administrator Relationship Specialty Start Date End Date Eldon Koehler MD PCP - General 10/06/07 documented as of this encounter
--- OUTSIDE RECORDS SUMMARY | 2024-08-06 11:15 | XMS_ITS | Encounter Summary ---
Author Organization [facility] Address [address] [place] [address] Care Team Providers Care Cardiology Physician Name Role Phone Eldon Koehler MD Primary Care Provider [phone] Encounter Details Date Type Department Care Team (Late st Contact Info) Description 10/19/2004 Outpatient Historical [facility] Internal Medicine [address] [phone] Eldon Koehler MD [address] [place] [address] [address] [place] [address] Social History Tobacco Use Types Packs/Day Years Used Date Smoking Tobacco: Never Assessed Comments Unknown Sex and Gender Information Value Date Recorded Sex Assigned at Not on file Legal Sex Female 3:04 AM SALES FLOOR MANAGER Gender Identity Not on file Sexual Orientation [...] Body Mass Index 39 06/08/2003 3:30 PM SALES FLOOR MANAGER documented in this encounter Plan of Treatment Upcoming Encounters Date Type Department Care Team (Late st Contact Info) Description 02/04/2025 10:40 AM CDT Office Visit [facility] Primary Care [address] [place] [address] Eldon Koehler MD [address] [place] [address] [address] [place] [phone] documented as of this encounter Visit Diagnoses Not on filedocumented in this encounter Additional Health Concerns Infection Onset Date Last Indicated Resolved Time R/O COVID-19 04/24/2020 04/25/2020 04/27/2020 7:01 AM SALES FLOOR MANAGER R/O COVID-19 04/27/2021 05/02/2021 05/04/2021 1:16 AM SALES FLOOR MANAGER documented as of this encounter Care Teams Cardiology Physician Relationship Specialty Start Date End Date Eldon Koehler MD PCP - General 10/06/07 documented as of this encounter
--- OUTSIDE RECORDS SUMMARY | 2024-08-06 11:15 | XMS_ITS | Encounter Summary ---
Author Organization [facility] Address [address] [place] [address] Care Team Providers Care Nut Picker Name Role Phone Eldon Koehler MD Primary Care Provider [phone] Encounter Details Date Type Department Care Team (Late st Contact Info) Description 01/15/2006 Outpatient Historical [facility] Internal Medicine [address] [phone] Eldon Koehler MD [address] [place] [address] [address] [place] [address] Social History Tobacco Use Types Packs/Day Years Used Date Smoking Tobacco: Never Assessed Comments Unknown Sex and Gender Information Value Date Recorded Sex Assigned at Not on file Legal Sex Female 3:04 AM WARD SECRETARY Gender Identity Not on file Sexual Orientation [...] Body Mass Index 39.47 06/08/2003 3:30 PM WARD SECRETARY documented in this encounter Plan of Treatment Upcoming Encounters Date Type Department Care Team (Late st Contact Info) Description 02/04/2025 10:40 AM CDT Office Visit [facility] Primary Care [address] [place] [phone] Eldon Koehler MD [address] [place] [address] [address] [place] [phone] documented as of this encounter Visit Diagnoses Not on filedocumented in this encounter Additional Health Concerns Infection Onset Date Last Indicated Resolved Time R/O COVID-19 04/24/2020 04/25/2020 04/27/2020 7:01 AM WARD SECRETARY R/O COVID-19 04/27/2021 05/02/2021 05/04/2021 1:16 AM WARD SECRETARY documented as of this encounter Care Teams Nut Picker Relationship Specialty Start Date End Date Eldon Koehler MD PCP - General 10/06/07 documented as of this encounter
--- OUTSIDE RECORDS SUMMARY | 2024-08-06 11:15 | XMS_ITS | Encounter Summary ---
Author Organization [facility] Address [address] [place] [address] Care Team Providers Care Pearl Peller Name Role Phone Eldon Koehler MD Primary Care Provider [phone] Encounter Details Date Type Department Care Team (Late st Contact Info) Description 03/14/2004 Outpatient Historical [facility] Internal Medicine [address] [address] Eldon Koehler MD [address] [place] [address] Social History Tobacco Use Types Packs/Day Years Used Date Smoking Tobacco: Never Assessed Comments Unknown Sex and Gender Information Value Date Recorded Sex Assigned at Not on file Legal Sex Female 3:04 AM CLINICAL TRANSPLANT COORDINATOR Gender Identity Not on file Sexual Orientation Not on file documented as of this encounter Last Filed Vital Signs Vital Sign Reading Time Taken Comments Blood Pressure 150/80 03/14/2004 2:30 PM CLINICAL TRANSPLANT COORDINATOR Pulse - - Temperature 37.8 C (100.1 F) 03/14/2004 2:30 PM CLINICAL TRANSPLANT COORDINATOR Respiratory Rate - - Oxygen Saturation - - Inhaled Oxygen Concentration - - Weight 115.2 kg (254 lb) 03/14/2004 2:30 PM CLINICAL TRANSPLANT COORDINATOR Height - - Body Mass Index 39.78 06/08/2003 3:30 PM CLINICAL TRANSPLANT COORDINATOR documented in this encounter Plan of Treatment Upcoming Encounters Date Type Department Care Team (Late st Contact Info) Description 02/04/2025 10:40 AM CDT Office Visit [facility] Primary Care [facility] [address] [place] [address] [address] [place] [phone] Eldon Koehler MD [address] [place] [address] [address] [place] [phone] documented as of this encounter Visit Diagnoses Not on filedocumented in this encounter Additional Health Concerns Infection Onset Date Last Indicated Resolved Time R/O COVID-19 04/24/2020 04/25/2020 04/27/2020 7:01 AM CLINICAL TRANSPLANT COORDINATOR R/O COVID-19 04/27/2021 05/02/2021 05/04/2021 1:16 AM CLINICAL TRANSPLANT COORDINATOR documented as of this encounter Care Teams Pearl Peller Relationship Specialty Start Date End Date Eldon Koehler MD PCP - General 10/06/07 documented as of this encounter
--- OUTSIDE RECORDS SUMMARY | 2024-08-06 11:15 | XMS_ITS | Encounter Summary ---
Author Organization [facility] Address [address] [place] [address] Care Team Providers Care Commercial Floor Covering Installer Name Role Phone Eldon Koehler MD Primary Care Provider [phone] Encounter Details Date Type Department Care Team (Late st Contact Info) Description 07/30/2004 Outpatient Historical [facility] Internal Medicine [address] [address] Eldon Koehler MD [address] [place] [address] Social History Tobacco Use Types Packs/Day Years Used Date Smoking Tobacco: Never Assessed Comments Unknown Sex and Gender Information Value Date Recorded Sex Assigned at Not on file Legal Sex Female 3:04 AM BOY'S ADVISER Gender Identity Not on file Sexual Orientation Not on file documented as of this encounter Last Filed Vital Signs Vital Sign Reading Time Taken Comments Blood Pressure 130/80 07/30/2004 3:00 PM BOY'S ADVISER Pulse - - Temperature 36.9 C (98.4 F) 07/30/2004 3:00 PM BOY'S ADVISER Respiratory Rate - - Oxygen Saturation - - Inhaled Oxygen Concentration - - Weight 113.4 kg (250 lb) 07/30/2004 3:00 PM BOY'S ADVISER Height - - Body Mass Index 39.16 06/08/2003 3:30 PM BOY'S ADVISER documented in this encounter Plan of Treatment Upcoming Encounters Date Type Department Care Team (Late st Contact Info) Description 02/04/2025 10:40 AM CDT Office Visit [facility] Primary Care [facility] [address] [place] [address] [address] [place] [phone] Eldon Koehler MD [address] [place] [address] [address] [place] [phone] documented as of this encounter Visit Diagnoses Not on filedocumented in this encounter Additional Health Concerns Infection Onset Date Last Indicated Resolved Time R/O COVID-19 04/24/2020 04/25/2020 04/27/2020 7:01 AM BOY'S ADVISER R/O COVID-19 04/27/2021 05/02/2021 05/04/2021 1:16 AM BOY'S ADVISER documented as of this encounter Care Teams Commercial Floor Covering Installer Relationship Specialty Start Date End Date Eldon Koehler MD PCP - General 10/06/07 documented as of this encounter
--- OUTSIDE RECORDS SUMMARY | 2024-08-06 11:15 | XMS_ITS | Encounter Summary ---
Author Organization [facility] Address [address] [place] [address] Care Team Providers Care Sizing Machine Tender Name Role Phone Eldon Koehler MD Primary Care Provider [phone] Encounter Details Date Type Department Care Team (Late Contact Info) Description 04/19/2005 Outpatient Historical [facility] Internal Medicine [address] [phone] Eldon Koehler MD [address] [place] [address] [address] [place] [address] Social History Tobacco Use Types Packs/Day Years Used Date Smoking Tobacco: Never Assessed Comments Unknown Sex and Gender Information Value Date Recorded Sex Assigned at Not on file Legal Sex Female 3:04 AM OYSTER WORKER Gender Identity Not on file Sexual Orientation Not on file documented as of this encounter Last Filed Vital Signs Vital Sign Reading Time Taken Comments Blood Pressure 130/80 04/19/2005 1:00 PM OYSTER WORKER Pulse - - Temperature - - Respiratory Rate - - Oxygen Saturation - - Inhaled Oxygen Concentration - - Weight 112.5 kg (248 lb) 04/19/2005 1:00 PM OYSTER WORKER Height - - Body Mass Index 38.84 06/08/2003 3:30 PM OYSTER WORKER documented in this encounter Plan of Treatment Upcoming Encounters Date Type Department Care Team (Late st Contact Info) Description 02/04/2025 10:40 AM CDT Office Visit [facility] Primary Care [address] [place] [phone] Eldon Koehler MD [address] [place] [address] [address] [place] [phone] documented as of this encounter Visit Diagnoses Not on filedocumented in this encounter Additional Health Concerns Infection Onset Date Last Indicated Resolved Time R/O COVID-19 04/24/2020 04/25/2020 04/27/2020 7:01 AM OYSTER WORKER R/O COVID-19 04/27/2021 05/02/2021 05/04/2021 1:16 AM OYSTER WORKER documented as of this encounter Care Teams Sizing Machine Tender Relationship Specialty Start Date End Date Eldon Koehler MD PCP - General 10/06/07 documented as of this encounter
--- OUTSIDE RECORDS SUMMARY | 2024-08-06 11:15 | XMS_ITS | Encounter Summary ---
Author Organization [facility] Address [address] [place] [address] Care Team Providers Care Bessemer Converter Operator Name Role Phone Eldon Koehler MD Primary Care Provider [phone] Encounter Details Date Type Department Care Team (Late st Contact Info) Description 12/17/2006 Outpatient Historical [facility] Internal Medicine [address] [phone] Eldon Koehler MD [address] [place] [address] [address] [place] [address] Social History Tobacco Use Types Packs/Day Years Used Date Smoking Tobacco: Never Assessed Comments Unknown Sex and Gender Information Value Date Recorded Sex Assigned at Not on file Legal Sex Female 3:04 AM SPEED BELT SANDER Gender Identity Not on file Sexual Orientation [...] Body Mass Index 39.63 06/08/2003 3:30 PM SPEED BELT SANDER documented in this encounter Plan of Treatment Upcoming Encounters Date Type Department Care Team (Late st Contact Info) Description 02/04/2025 10:40 AM CDT Office Visit [facility] Primary Care [address] [place] [phone] Eldon Koehler MD [address] [place] [address] [address] [place] [phone] documented as of this encounter Visit Diagnoses Not on filedocumented in this encounter Additional Health Concerns Infection Onset Date Last Indicated Resolved Time R/O COVID-19 04/24/2020 04/25/2020 04/27/2020 7:01 AM SPEED BELT SANDER R/O COVID-19 04/27/2021 05/02/2021 05/04/2021 1:16 AM SPEED BELT SANDER documented as of this encounter Care Teams Bessemer Converter Operator Relationship Specialty Start Date End Date Eldon Koehler MD PCP - General 10/06/07 documented as of this encounter
--- OUTSIDE RECORDS SUMMARY | 2024-08-06 11:15 | XMS_ITS | Encounter Summary ---
Author Organization [facility] Address [address] [place] [address] Care Team Providers Care Comfort Station Supervisor Name Role Phone Eldon Koehler MD Primary Care Provider [phone] Encounter Details Date Type Department Care Team (Late st Contact Info) Description 07/10/2005 Outpatient [facility] Internal Medicine [address] [address] Eldon Koehler MD [address] [place] [address] Social History Tobacco Use Types Packs/Day Years Used Date Smoking Tobacco: Never Assessed Comments Unknown Sex and Gender Information Value Date Recorded Sex Assigned at Not on file Legal Sex Female 3:04 AM AREA ATTENDANT Gender Identity Not on file Sexual Orientation Not on file documented as of this encounter Last Filed Vital Signs Vital Sign Reading Time Taken Comments Blood Pressure 130/80 07/10/2005 1:45 PM AREA ATTENDANT Pulse - - Temperature 37.4 C (99.32 F) 07/10/2005 1:45 PM AREA ATTENDANT Respiratory Rate - - Oxygen Saturation - - Inhaled Oxygen Concentration - - Weight 113.4 kg (250 lb) 07/10/2005 1:45 PM AREA ATTENDANT Height - - Body Mass Index 39.16 06/08/2003 3:30 PM AREA ATTENDANT documented in this encounter Plan of Treatment Upcoming Encounters Date Type Department Care Team (Late st Contact Info) Description 02/04/2025 10:40 AM CDT Office Visit [facility] Primary Care [facility] [address] [place] [address] [address] [place] [phone] Eldon Koehler MD [address] [place] [address] [address] [place] [phone] documented as of this encounter Visit Diagnoses Not on filedocumented in this encounter Additional Health Concerns Infection Onset Date Last Indicated Resolved Time R/O COVID-19 04/24/2020 04/25/2020 04/27/2020 7:01 AM AREA ATTENDANT R/O COVID-19 04/27/2021 05/02/2021 05/04/2021 1:16 AM AREA ATTENDANT documented as of this encounter Care Teams Comfort Station Supervisor Relationship Specialty Start Date End Date Eldon Koehler MD PCP - General 10/06/07 documented as of this encounter
--- OUTSIDE RECORDS SUMMARY | 2024-08-06 11:15 | XMS_ITS | Encounter Summary ---
Author Organization [facility] Address [address] [place] [address] Care Team Providers Care Television Repairman Name Role Phone Eldon Koehler MD Primary Care Provider [phone] Encounter Details Date Type Department Care Team (Late st Contact Info) Description 03/02/2007 Outpatient Historical [facility] Internal Medicine [address] [phone] Eldon Koehler MD [address] [place] [address] [address] [place] [address] Social History Tobacco Use Types Packs/Day Years Used Date Smoking Tobacco: Never Assessed Comments Unknown Sex and Gender Information Value Date Recorded Sex Assigned at Not on file Legal Sex Female 3:04 AM BALLAST INSPECTOR Gender Identity Not on file Sexual [...] Body Mass Index 40.57 06/08/2003 3:30 PM BALLAST INSPECTOR documented in this encounter Plan of Treatment Upcoming Encounters Date Type Department Care Team (Late st Contact Info) Description 02/04/2025 10:40 AM CDT Office Visit [facility] Primary Care [address] [place] [phone] Eldon Koehler MD [address] [place] [address] [address] [place] [phone] documented as of this encounter Visit Diagnoses Not on filedocumented in this encounter Additional Health Concerns Infection Onset Date Last Indicated Resolved Time R/O COVID-19 04/24/2020 04/25/2020 04/27/2020 7:01 AM BALLAST INSPECTOR R/O COVID-19 04/27/2021 05/02/2021 05/04/2021 1:16 AM BALLAST INSPECTOR documented as of this encounter Care Teams Television Repairman Relationship Specialty Start Date End Date Eldon Koehler MD PCP - General 10/06/07 documented as of this encounter
--- OUTSIDE RECORDS SUMMARY | 2024-08-06 11:15 | XMS_ITS | Encounter Summary ---
Author Organization [facility] Address [address] [place] [address] Care Team Providers Care Rock Breaker Name Role Phone Eldon Koehler MD Primary Care Provider [phone] Encounter Details Date Type Department Care Team (Late st Contact Info) Description 09/28/2003 Outpatient Historical [facility] Internal Medicine [address] [phone] Eldon Koehler MD [address] [place] [address] [address] [place] [address] Social History Tobacco Use Types Packs/Day Years Used Date Smoking Tobacco: Never Assessed Comments Unknown Sex and Gender Information Value Date Recorded Sex Assigned at Not on file Legal Sex Female 3:04 AM MUSIC BOX MECHANIC Gender Identity Not on file Sexual Orientation [...] Body Mass Index 37.9 06/08/2003 3:30 PM MUSIC BOX MECHANIC documented in this encounter Plan of Treatment Upcoming Encounters Date Type Department Care Team (Late st Contact Info) Description 02/04/2025 10:40 AM CDT Office Visit [facility] Primary Care [address] [place] [phone] Eldon Koehler MD [address] [place] [address] [address] [place] [phone] documented as of this encounter Visit Diagnoses Not on filedocumented in this encounter Additional Health Concerns Infection Onset Date Last Indicated Resolved Time R/O COVID-19 04/24/2020 04/25/2020 04/27/2020 7:01 AM MUSIC BOX MECHANIC R/O COVID-19 04/27/2021 05/02/2021 05/04/2021 1:16 AM MUSIC BOX MECHANIC documented as of this encounter Care Teams Rock Breaker Relationship Specialty Start Date End Date Eldon Koehler MD PCP - General 10/06/07 documented as of this encounter
--- OUTSIDE RECORDS SUMMARY | 2024-08-06 11:15 | XMS_ITS | Clinical Summary ---
Author Organization [facility] Address [address] [place] [address] Care Team Providers Care Sugar Sampler Name Role Phone Eldon Koehler MD [...] mcg tablet Take 150 mcg by mouth wire rope fabrication supervisor before breakfast [address] (CYMBALTA) [...] (09/05/2020): Added automatically from request for surgery [id number] Prediabetes 12/24/2019 Obesity (BMI 35.0-39.9 without comorbidity) [...] on file Legal Sex Female 11:01 PM SIGNAL CONSTRUCTOR Gender Identity Female 01/31/2021 9:15 AM CDT [...] on file Medical Devices Implanted Type Area Coal Wheeler Device Identifier Shelf Expiration Date Model / Serial / Lot Buggl [id number] Aequalis 29mm Reverse Long Post Shoulder Baseplate Glenoid Sequeira - [id number] - [id number] Implanted:Qty: 1 on 11/02/2020 by Salomón Edmondson MD at [facility] [employer] [id number] 12/04/2022 [id number] / [id number] / [employer] [id number] 36mm Reverse Ii Center Shoulder Sphere Glenoid Titanium - [id number] - [id number] Implanted:Qty: 1 on 11/02/2020 by Salomón Edmondson MD at [facility] [employer] [id number] 05/03/2024 [id number] / [id number] / Buggl [id number] Aequalis Reversed 4.5mm 20mm Compression Glenoid Screw Baseplate - [id number] Implanted:Qty: 1 on 11/02/2020 by Salomón Edmondson MD at [facility] [employer] [id number] / / 0 Buggl [id number] Aequalis Reversed 4.5mm 23mm Compression Glenoid Screw Baseplate - [id number] Implanted:Qty: 1 on 11/02/2020 by Salomón Edmondson MD at [facility] [employer] [id number] / / 0 [employer] [id number] Aequalis 4.5mm 38mm Lock Multidirectional Self Tap Shoulder Screw Latex Free - [id number] Implanted:Qty: 1 on 11/02/2020 by Salomón Edmondson MD at [facility] [employer] [facility] [id number] / / 0 [employer] [id number] Screw Bsplt 41mm 4.5mm Aequalis Shoulder Ti Lock - [id number] Implanted:Qty: 1 on 11/02/2020 by Salomón Edmondson MD at [facility] [employer] [facility] [id number] / / 0 Protek-dor [facility] [id number] Insert Perform 10 Deg [id number] - [id number] Implanted:Qty: 1 on 11/02/2020 by Salomón Edmondson MD at [facility] [employer] [facility] [id number] / / [id number] Protek-dor [facility] [id number] Stem Perform Sz 2 Plus Humeral - [id number] Implanted:Qty: 1 on 11/02/2020 by Salomón Edmondson MD at [facility] [employer] [facility] [id number] / / [id number] Insurance [facility]ARE [facility] MEDICARE [facility] MEDICARE MEDICARE Advance Directives For more information, please contact: [phone] * Full Code (Latest Code Status on File) Date Activated Date Inactivated Comments 11/02/2020 6:21 PM 11/03/2020 7:12 PM Care Teams Sugar Sampler Relationship Specialty Start Date End Date Eldon Koehler MD PCP - General Internal Medicine 08/04/20
--- OUTSIDE RECORDS SUMMARY | 2024-08-06 11:15 | XMS_ITS | Clinical Summary ---
Author Organization [facility] Address [address] [place] [address] Care Team Providers Care Decal Transferrer Name Role Phone Eldon Koehler MD Primary Care Provider [phone] Allergies Active Allergy Reactions Criticality Noted Date [...] late in the day. 90 Tablet 3 021 Active Additional Information Patient not taking.Reported on 07/27/2024 albuterol sulfate HFA 90 mcg/actuation aerosol inhaler Take 2 Puffs by inhalation 4 times daily as needed for Shortness of Breath. 8.5 Gram 2 023 Active rOPINIRole (REQUIP) 2 mg Tablet Take 1 Tablet (2 mg) by mouth daily at bedtime. 90 Tablet 3 023 Active Additional Information Patient not taking.Reported on 07/27/2024 busPIRone (BUSPAR) 10 mg tabletIndications :Recurrent major depressive disorder, in partial remission Take 1 Tablet (10 mg) by mouth 3 times daily. 180 Tablet 3 023 Active HYDROcodone-aceta minophen (NORCO) 5-325 mg tabletIndications :Lumbar radiculopathy Take 1 Tablet by mouth every 4 hours as needed for Pain, Moderate. Max Daily Amount: 6 Tablets 42 Tablet 023 Active LORazepam (ATIVAN) 0.5 mg tabletIndications :Claustrophobia Take 1 Tablet (0.5 mg) by mouth see administration instructions. 1 tab before mri take another if still anxious 1 Tablet 023 Active benzonatate (TESSALON) 200 mg capsule Take 1 Capsule (200 mg) by mouth 3 times daily as needed for Cough. 30 Capsule 2 024 Active Additional Information Patient not taking.Reported on 07/27/2024 methylPREDNISolon e (MEDROL DOSPACK) 4 mg Tablets, Dose Pack As directed 21 Tablet 024 Active Additional Information Patient not taking.Reported on 07/27/2024 pregabalin (LYRICA) 50 mg CapsuleIndication s:Fibromyalgia take 1 capsule by mouth every 12 hours 180 Capsule 3 024 Active modafiniL (PROVIGIL) 100 mg TabletIndications :Other sleep apnea Take 1 Tablet (100 mg) by mouth daily. 30 Tablet 3 024 Active rOPINIRole (REQUIP) 3 mg Tablet Take 1 Tablet (3 mg) by mouth daily at bedtime. 100 Tablet 3 024 Active ezetimibe (ZETIA) 10 mg tabletIndications :Other hyperlipidemia take 1 tablet by mouth daily 90 Tablet 3 024 Active atorvastatin (LIPITOR) 20 mg tabletIndications :Other hyperlipidemia TAKE 1 TABLET BY MOUTH LATE IN THE DAY 90 Tablet 3 024 Active omeprazole (PriLOSEC) 20 mg Capsule, Delayed Release(E.C.)Callie cations:Gastroeso phageal reflux disease without esophagitis take 1 capsule by mouth daily 90 Capsule 3 024 Active DULoxetine (CYMBALTA) 60 mg Capsule, Delayed Release(E.C.)Callie cations:Recurrent major depressive disorder, in partial remission take 1 capsule by mouth daily 90 Capsule 3 024 Active metoprolol succinate (TOPROL XL) 25 mg Extended Release 24 hour tablet take 1 tablet by mouth daily 90 Tablet 3 024 Active levothyroxine 150 mcg tabletIndications :Other specified hypothyroidism take 1 tablet by mouth daily 90 Tablet 3 024 Active buPROPion HCL (WELLBUTRIN SR) 150 mg Sustained Release 12 hour tabletIndications :Recurrent major depressive disorder, in partial remission take 1 tablet by mouth daily 90 Tablet 3 024 Active celecoxib (CeleBREX) 200 mg capsuleIndication s:Fibromyalgia TAKE 1 CAPSULE BY MOUTH TWICE DAILY 180 Capsule 3 024 Active clotrimazole (LOTRIMIN) 1 % Cream Apply to affected area 2 times daily. 85 Gram 3 024 Active methylPREDNISolon e (MEDROL DOSPACK) 4 mg Tablets, Dose Pack As directed 21 Tablet 024 Active clotrimazole-beta methasone (LOTRISONE) 1-0.05 % Cream Apply to affected area 2 times daily. 45 Gram 2 024 Active ketoconazole (NIZORAL) 2 % Shampoo Use daily 120 mL 1 024 Active benzonatate (TESSALON) 200 mg capsule Take 1 Capsule (200 mg) by mouth 3 times daily. 30 Capsule 1 025 Active tirzepatide (Mounjaro) 5 mg/0.5 mL Pen Injector Inject 0.5 mL (5 mg) by subcutaneous injection every 7 days. 6 mL 3 025 Active tirzepatide (Mounjaro) 2.5 mg/0.5 mL Pen Injector Inject 2.5 mg by subcutaneous injection every 7 days. 6 mL 2 024 2024 Discontinued Active Problems Patient Care Coordination No te [...] Encounters Date Type Department Care Team Description 08/06/[address] [place] [address] Eldon Koehler MD Provider Call 07/27/2024 9:40 AM CDT Office Visit [address] [place] [address] Eldon Koehler MD Recurrent major depressive disorder, in partial remission (Primary Dx); Type 2 diabetes mellitus without complication, without long-term current use of insulin ([facility]); Other hyperlipidemia; Vitamin B12 deficiency (non anemic); Other specified hypothyroidism; Osteopenia of multiple sites; Other asthma; Vitamin D deficiency 06/29/2024 External Device Data [facility] ABSTRACTION Provider, Abstract 06/22/[address] [place] [address] Eldon Koehler MD Clinical Consult Before Scheduling; Patient Communication 06/18/2024 Orders Only [address] [place] [address] Provider, Abstract 06/15/2024 External Device Data [place] ABSTRACTION Provider, Abstract 06/15/[address] [place] [address] Provider, Abstract 06/01/2024 Abstract [place] [address] [place] [address] Eldon Koehler MD 05/27/2024 Orders Only [address] [place] [address] Provider, Abstract from Last 3 Months Immunizations Immunization Administration Dates Next Due (ADACEL/BOOSTRIX)(10 YR UP) TDAP VACCINE, 0.5ML, IM 03/13/2010 (PFIZER)(12 YR UP) COVID-19 VACCINE - EMERGENCY USE AUTHORIZATION, MRNA, [id number](PF) 30 MCG/0.3 ML IM SUSP 04/06/2021,07/29/2020,07/07/2020 (PNEUMOVAX [...] any clubs o r organizations such as sabianism groups, unions, fraternal or athletic groups, or [...] on file Legal Sex Female 3:04 AM LETTERSET PRESS SET UP OPERATOR Gender Identity Not on file Sexual Orientation Not on file Occupation Industry Job Start Date Job End Date RETIRED Not on file Not on file Not on file Last Filed Vital Signs Vital Sign Reading Time Taken Comments Blood Pressure 134/78 07/27/2024 9:25 AM CDT Pulse 89 07/27/2024 9:25 AM CDT Temperature 36.6 C (97.8 F) 01/14/2023 2:32 PM CDT Respiratory Rate 17 01/14/2023 2:32 PM CDT Oxygen Saturation 98% 07/27/2024 9:25 AM CDT Inhaled Oxygen Concentration - - Weight 92.6 kg (204 lb 3.2 oz) 07/27/2024 9:25 A M CDT Height 170.2 cm (5' 7 ) 07/27/2024 9:25 AM CDT Body Mass Index 31.98 07/27/2024 9:25 AM CDT Plan of Treatment Upcoming Encounters Date Type Department Care Team (Late st Contact Info) Description 02/04/2025 10:40 AM CDT Office Visit [facility] Care [place] [address] [place] [address] Eldon Koehler MD [address] [place] [address] [address] [place] [address] Health Maintenance Due Date Last Done Comments FIT-DNA Q 3 years 1997 FIT/FOBT Q 1 year 1997 Flex Sig/CT Colonography Q 5 years 1997 RSV VACCINE (60+ or ) (1 - Risk 60-74 years 1-dose series) 2012 DTAP/TDAP/TD VACCINES (2 - T d or Tdap) 03/13/2020 03/13/2010, 10/30/1999 DIABETES MICROALBUMIN ANNUAL SCREEN 07/02/2023 07/02/2022 DIABETES HBA1C Q 6 MONTHS 01/01/20242023, 07/03/2023, 07/09/2022, Additional history exists COVID-19 Vaccine (2023-06 5 season) 2024 02/15/2024, 04/06/2021, 07/29/2020, Additional history exists DIABETES: A1C (Auto Order) 07/03/202407/03, 07/03/2023, 07/09/2022, Additional history exists LDL CHOLESTEROL ANNUAL 07/03/2024 , 07/02/2022, 08/01/2021, Additional history exists DIABETES ANNUAL RETINAL EXAM 12/04/2024, 11/20/2023, 11/10/2023 (Previously completed) DIABETES ANNUAL FOOT EXAM 01/20/20252023, 01/01/2022, 12/05/2020 Traditional Medicare (O) A nnual Wellness Visit 01/21/2025 01/21/2024, 08/08/2021, 08/01/2020, Additional history exists BREAST CANCER SCREENING 06/18/2025 06/18/19, 11/18/2022, 11/18/2022, Additional history exists COLORECTAL SCREENING 08/08/2025 08/08/2020, 08/08/2020, 03/15/2015, Additional history exists Colorectal Cancer Screening 08/08/2025 ZOSTER VACCINE Completed 05/08/2018, 10/24/2017 OSTEOPOROSIS SCREENING Completed 11/04/2019, 2019 PNEUMOCOCCAL VACCINE 50+ YEARS Completed 0 08/08/2021, 04/13/2018, 03/19/2017, Additional history exists INFLUENZA VACCINE Completed 01/21/2024, , 01/01/2022, Additional history exists Procedures Procedure Name Priority Date/Time Associated Diagnosis Comments MAMMO SCREEN BILAT W OR WO CAD Routine 06/18/2024 4:17 PM LETTERSET PRESS SET UP OPERATOR CT HEAD WO CONTRAST Routine 05/15/2024 4 :27 PM LETTERSET PRESS SET UP OPERATOR LIPID PANEL Routine 07/03/2023 9:11 AM LETTERSET PRESS SET UP OPERATOR Other hyperlipidemia HEMOGLOBIN A1C Routine 07/03/2023 9:11 AM LETTERSET PRESS SET UP OPERATOR Type 2 diabetes mellitus without complication, unspecified whether long term care administrator insulin use ([facility]) MICROALBUMIN/CREATI NINE RATIO, RANDOM UR Routine 07/02/2022 8:21 AM LETTERSET PRESS SET UP OPERATOR COLONOSCOPY REPORT 08/08/2020 12 :38 PM CDT XR DEXA BONE DENSITY 2 SITES Routine 11/04/2019 from Last 3 Months or Most Recently Relevant to Health Maintenance Results * MAMMO SCREEN BILAT W OR WO CAD (06/18/2024 4:17 PM LETTERSET PRESS SET UP OPERATOR) Anatomical Region Laterality Modality Breast Bilateral Mammography us Abstract Provider MAMMO ORDERABLES Edited Result - Final * CT HEAD WO CONTRAST (05/15/2024 4:27 PM LETTERSET PRESS SET UP OPERATOR) Anatomical Region Laterality Modality Head Computed Tomogra phy us Abstract Provider CT ORDERABLES Edited Result - Final * (ABNORMAL) HEMOGLOBIN A1C (07/03/2023 9:11 AM LETTERSET PRESS SET UP OPERATOR) HEMOGLOBIN A1C 5.7(H) <5.7 % of total Hgb [facility] Comment: For someone without known diabetes, [...] GLUCOSE (MMOL/L) 6.5 mmol/L Lana [facility] Comment: This test was performed on the [employer] c8000 platform. Please be advised that [facility] will move hemoglobin A1c testing to the Eyad platform soon. In general, direct comparison of the results from different platforms is not recommended. FASTING:YES FASTING: YES Test Performed at: [facility] [address] [place] [address] Marty Duckworth Blood 07/03/2023 9:11 AM LETTERSET PRESS SET UP OPERATOR 07/03/2023 9:12 AM LETTERSET PRESS SET UP OPERATOR us Eldon Koehler MD CHEMISTRY ORDERABLES Final Re sult [facility] [phone] [facility] [address] [place] [address] * (ABNORMAL) LIPID PANEL (07/03/2023 9:11 AM LETTERSET PRESS SET UP OPERATOR) CHOLESTEROL 212(H) <200 mg/dL [facility] [...] LDL-C. Christopher SS et al. ERLIN. 2013;310(19): 6696-5569 (http://education.[employer]/faq/FKD292) CHOL/HDL RATIO 4.4 <5.0 (calc) [facility] TOTAL NON-HDL CHOL(LDL+VLDL) 164(H) <130 mg/dL (calc) [facility] Comment: For patients with diabetes plus 1 major ASCVD risk factor, treating to a non-HDL-C goal of <100 mg/dL (LDL-C of <70 mg/dL) is considered a therapeutic option. Test Performed at: [facility] [address] [address] Marty Duckworth MD Blood 07/03/2023 9:11 AM LETTERSET PRESS SET UP OPERATOR 07/03/2023 9:12 AM LETTERSET PRESS SET UP OPERATOR us Eldon Koehler MD CHEMISTRY ORDERABLES Final Re sult [facility] [phone] [facility] [address] [place] [address] * MICROALBUMIN/CREATININE RATIO, RANDOM UR (07/02/2022 8:21 AM LETTERSET PRESS SET UP OPERATOR) Creatinine, Urine 207 20 - 275 mg/dL [facility] MICROALBUMIN, URINE 1.3 See Note: mg/dL [facility] Comment: Reference Range: Reference Range Not established MICROALBUMIN/CREAT RATIO, UR 6 <30 mcg/mg creat [facility] Comment: The ADA defines abnormalities in [...] category. FASTING:YES FASTING: YES Test Performed at: [employer] [employer] [address] Marty Duckworth MD 07/02/2022 8:21 AM LETTERSET PRESS SET UP OPERATOR 07/02/2022 8:21 AM LETTERSET PRESS SET UP OPERATOR us Eldon Koehler MD URINE ORDERABLES Final Result Performing Organization Address [facility]/ZIP Co de Phone Number [facility] [phone] [employer] [address] [employer] [address] * COLONOSCOPY REPORT (08/08/2020 12:38 PM CDT) Narrative Procedure Note Osei Sutton MD - 08/08/2020 12:38 PM CDT [facility] Endoscopy Patient Name: Winifred Rodriguez Procedure Date: [...] of Addenda: [address]; [place] [address] us Osei Sutton MD GI PROCEDURE ORDERABLES Final R esult * XR DEXA BONE DENSITY 2 SITES (11/04/2019) Anatomical Region Laterality Modality Other us Abstract Provider DIAGNOSTIC IMAGING ORDERABLES Final Result from Last 3 Months or Most Recently Relevant to Health Maintenance Insurance MEDICARE PART A AND B [facility] [id number] RX [employer] RX Member Subscriber Plan / Payer (Ef fective 2015-Present) Name:Winifred Rodriguez Fredy Relation to Subscriber:Self Name:Winifred Rodriguez Payer ID:Not on file Group ID:[id number] Type:RX Medicare Part D Address: [place] Advance Directives For more information, please contact: [phone] * Full Code (Latest Code Status on [...] 10:22 AM 03/15/2015 4:14 PM Care Teams Decal Transferrer Relationship Specialty Start Date End Date Eldon Koehler MD PCP - General 10/06/07
--- OUTSIDE RECORDS SUMMARY | 2024-08-06 11:15 | XMS_ITS | Encounter Summary ---
Author Organization [facility] Address [address] [place] [address] Care Team Providers Care Tool Operator Name Role Phone Eldon Koehler MD Primary Care Provider [phone] Encounter Details Date Type Department Care Team (Late st Contact Info) Description 01/05/2007 Orders Only [facility] Internal Medicine [address] [address] Eldon Koehler MD [address] [place] [address] Social History Tobacco Use Types Packs/Day Years Used Date Smoking Tobacco: Never Assessed Comments Unknown Sex and Gender Information Value Date Recorded Sex Assigned at Not on file Legal Sex Female 3:04 AM COORDINATE MEASURING MACHINE PROGRAMMER Gender Identity Not on file Sexual Orientation Not on file documented as of this encounter Progress Notes * Eldon Koehler MD - 09/29/2007 3:23 PM CDT TIME:11:16 am PATIENT`S HOME PHONE: PATIENT`S WORK PHONE: PATIENT`S INSURANCE: Auth0 [facility] WHO TOOK THE CALL: Iliana Mike C GENERAL INFORMATION ALTERNATIVE PHONE NUMBER: [phone] WHO CALLED: Patient called. PROBLEMS: Requip is [...] Office Visit [facility] [place] [address] Eldon Koehler MD [address] [place] [address] documented as of this encounter Visit Diagnoses Not on filedocumented in this encounter Additional Health Concerns Infection Onset Date Last Indicated Resolved Time R/O COVID-19 04/24/2020 04/25/2020 04/27/2020 7:01 AM COORDINATE MEASURING MACHINE PROGRAMMER R/O COVID-19 04/27/2021 05/02/2021 05/04/2021 1:16 AM COORDINATE MEASURING MACHINE PROGRAMMER documented as of this encounter Care Teams Tool Operator Relationship Specialty Start Date End Date Eldon Koehler MD PCP - General 10/06/07 documented as of this encounter
--- OUTSIDE RECORDS SUMMARY | 2024-08-06 11:15 | XMS_ITS | Encounter Summary ---
Author Organization [facility] Address [address] [place] [address] Care Team Providers Care Service Cleaner Name Role Phone Eldon Koehler MD Primary Care Provider [phone] Encounter Details Date Type Department Care Team (Late st Contact Info) Description 07/20/2004 Outpatient Historical [facility] Internal Medicine [address] [address] Eldon Koehler MD [address] [place] [address] Social History Tobacco Use Types Packs/Day Years Used Date Smoking Tobacco: Never Assessed Comments Unknown Sex and Gender Information Value Date Recorded Sex Assigned at Not on file Legal Sex Female 3:04 AM BILLING SUPERVISOR Gender Identity Not on file Sexual Orientation Not on file documented as of this encounter Last Filed Vital Signs Vital Sign Reading Time Taken Comments Blood Pressure 130/70 07/20/2004 1:15 PM BILLING SUPERVISOR Pulse - - Temperature 36.9 C (98.4 F) 07/20/2004 1:15 PM BILLING SUPERVISOR Respiratory Rate - - Oxygen Saturation - - Inhaled Oxygen Concentration - - Weight 115.2 kg (254 lb) 07/20/2004 1:15 PM BILLING SUPERVISOR Height - - Body Mass Index 39.78 06/08/2003 3:30 PM BILLING SUPERVISOR documented in this encounter Plan of Treatment Upcoming Encounters Date Type Department Care Team (Late st Contact Info) Description 02/04/2025 10:40 AM CDT Office Visit [facility] Primary Care [facility] [address] [place] [address] [address] [place] [address] Eldon Koehler MD [address] [place] [address] [address] [place] [address] documented as of this encounter Visit Diagnoses Not on filedocumented in this encounter Additional Health Concerns Infection Onset Date Last Indicated Resolved Time R/O COVID-19 04/24/2020 04/25/2020 04/27/2020 7:01 AM BILLING SUPERVISOR R/O COVID-19 04/27/2021 05/02/2021 05/04/2021 1:16 AM BILLING SUPERVISOR documented as of this encounter Care Teams Service Cleaner Relationship Specialty Start Date End Date Eldon Koehler MD PCP - General 10/06/07 documented as of this encounter
--- OUTSIDE RECORDS SUMMARY | 2024-08-06 11:15 | XMS_ITS | Encounter Summary ---
Author Organization [facility] Address [address] [place] [address] Care Team Providers Care Cooking Show Host Name Role Phone Giselle Kelley MD Primary Care Provider Encounter Details Date Type Department Care Team (Late st Contact Info) Description 12/17/2006 Orders Only [facility] Internal Medicine [address] [address] Giselle Kelley MD [address] [place] [address] Social History Tobacco Use Types Packs/Day Years Used Date Smoking Tobacco: Never Assessed Comments Unknown Sex and Gender Information Value Date Recorded Sex Assigned at Not on file Legal Sex Female 3:04 AM ELECTRIC NEEDLE SPECIALIST Gender Identity Not on file Sexual Orientation Not on file documented as of this encounter Progress Notes * Giselle Kelley MD - 09/29/2007 11:57 AM CDT CENTRAL TEST SCHEDULING DATE: DEC 17, 2006 Note created by: Patty Espinoza E 03:45 p Patient Name : WINIFRED PIPER Address: [address] [place] [address]. [address] D.O.B: 1950 SSN: [id number] Parent/Guardian if applicable: Work Phone: Patient Insurance: ID#: Group#: ORDER(S) #: [id number] mammo PLEASE SCHEDULE THE APPOINTMENT AT THE FOLLOWING LOCATION: [facility] [phone]. SPECIAL SCHEDULING INSTRUCTIONS: pt to schedule ORDERING PHYSICIAN: GISELLE KELLEY MD OFFICE LABOR RELATIONS DIRECTOR & PHONE: Patty Espinoza E * Giselle [...] lab LAB ORDERS: 2 mo Order number: [id number] Test Ordered: COMPREHENSIVE METABOLIC PANEL & GFR 1112 Order number: [id number] Test Ordered: LIPID PANEL 1078 Order number: [id number] Test Ordered: TSH 1720 Order number: [id number] Test Ordered: FERRITIN 1715 Order number: [id number] Test Ordered: CBC W/ DIFFERENTIAL 3150 Order number: [id number] Test Ordered: MAMMOGRAM BI-LATERAL (2 VIEWS) 272.4-HYPERLIPIDEMIA [...] Description 02/04/2025 10:40 AM CDT Office Visit [facility] Primary Care [address] [place] [address] Giselle Kelley MD [address] [place] [address] [address] [place] [address] documented as of this encounter Visit Diagnoses Not on filedocumented in this encounter Additional Health Concerns Infection Onset Date Last Indicated Resolved Time R/O COVID-19 04/24/2020 04/25/2020 04/27/2020 7:01 AM ELECTRIC NEEDLE SPECIALIST R/O COVID-19 04/27/2021 05/02/2021 05/04/2021 1:16 AM ELECTRIC NEEDLE SPECIALIST documented as of this encounter Care Teams Cooking Show Host Relationship Specialty Start Date End Date Giselle Kelley MD PCP - General 10/06/07 documented as of this encounter
--- OUTSIDE RECORDS SUMMARY | 2024-08-06 11:15 | XMS_ITS | Clinical Summary ---
Author Organization [facility] Address [address] [place] [address] Phone Care Team Providers Care Senior Hadoop Developer Name Role Phone Eldon Koehler MD Primary Care Provider [phone] Medications atorvastatin (LIPITOR) 20 MG Tablet 12/30/2023 [...] 1950 Hepatitis C Virus (HCV) Screening 1950 Mammogram 1950 Colonoscopy 1997 Colorectal Cancer Screening 1997 Cologuard 2002 Immunochemical Fecal Occult Blood 2002 SARS-COV-2 Immunization ( season) 2024 10/10/2021, 04/06/2021, 07/29/2020, Additional history exists Respiratory Syncytial Virus (RSV) Immunization (Adult) (1 - 1-dose 75+ series) 07/26/2027 DTaP/Tdap/Td Immunization Discontinued 03/19/2017 TdaP Immunization Completed 03/19/2017 Zoster Immunization Completed 05/08/2018, 8 Pneumococcal Immunization (50+ years) Completed 08/08/2021, 04/13/2018 Pneumococcal Immunization Combined Discontinued 08/08/2021, 04/13/2018 Influenza Immunization Completed , 01/01/2022, 02/15/2020, Additional history exists Hepatitis B Immunization Aged Out No longer eligible based on patient's age to complete this topic Meningococcal Immunization (ACWY) Aged Out No longer eligible based on patient's age to complete this topic Rotavirus Immunization Aged Out No lo nger eligible based on patient's age to complete this topic Insurance MEDICARE Care Teams Senior Hadoop Developer Relationship Specialty Start Date End Date Eldon Koehler MD [address] [place] [address] PCP - General 01/29/24
--- OUTSIDE RECORDS SUMMARY | 2024-08-06 11:15 | XMS_ITS | Encounter Summary ---
Author Organization [facility] Address [address] [place] [address] Care Team Providers Care Forms Analysis Manager Name Role Phone Eldon Koehler MD Primary Care Provider Encounter Details Date Type Department Care Team (Late st Contact Info) Description 05/21/[address] [facility] Internal Medicine [address] [address] Eldon Koehler MD [address] [place] [address] [address] [place] [address] Social History Tobacco Use Types Packs/Day Years Used Date Smoking Tobacco: Never Assessed Comments Unknown Sex and Gender Information Value Date Recorded Sex Assigned at Not on file Legal Sex Female 3:04 AM HOGSHEAD DUMPER Gender Identity Not on file Sexual Orientation Not on file documented as of this encounter Plan of Treatment Upcoming Encounters Date Type Department Care Team (Late st Contact Info) Description 02/04/2025 10:40 AM CDT Office Visit [facility] Primary Care [address] [place] [address] Eldon Koehler MD [address] [place] [address] [address] [place] [address] documented as of this encounter Visit Diagnoses Not on filedocumented in this encounter Additional Health Concerns Infection Onset Date Last Indicated Resolved Time R/O COVID-19 04/24/2020 04/25/2020 04/27/2020 7:01 AM HOGSHEAD DUMPER R/O COVID-19 04/27/2021 05/02/2021 05/04/2021 1:16 AM HOGSHEAD DUMPER documented as of this encounter Care Teams Forms Analysis Manager Relationship Specialty Start Date End Date Eldon Koehler MD PCP - General 10/06/07 documented as of this encounter
--- OUTSIDE RECORDS SUMMARY | 2024-08-06 11:15 | XMS_ITS | Encounter Summary ---
Author Organization [facility] Address [address] [place] [address] Care Team Providers Care Medical Orderly Name Role Phone Eldon Koehler MD Primary Care Provider [phone] Encounter Details Date Type Department Care Team (Late st Contact Info) Description 06/05/2007 Outpatient Historical [facility] Internal Medicine [address] [address] Eldon Koehler MD [address] [place] [address] [address] [place] [address] Social History Tobacco Use Types Packs/Day Years Used Date Smoking Tobacco: Never Assessed Comments Unknown Sex and Gender Information Value Date Recorded Sex Assigned at Not on file Legal Sex Female 3:04 AM DISHWASHER BUSSER Gender Identity Not on file Sexual Orientation Not on file documented as of this encounter Plan of Treatment Upcoming Encounters Date Type Department Care Team (Late st Contact Info) Description 02/04/2025 10:40 AM CDT Office Visit [facility] Primary Care [address] [place] [address] Eldon Koehler MD [address] [place] [address] [address] [place] [phone] documented as of this encounter Visit Diagnoses Not on filedocumented in this encounter Additional Health Concerns Infection Onset Date Last Indicated Resolved Time R/O COVID-19 04/24/2020 04/25/2020 04/27/2020 7:01 AM DISHWASHER BUSSER R/O COVID-19 04/27/2021 05/02/2021 05/04/2021 1:16 AM DISHWASHER BUSSER documented as of this encounter Care Teams Medical Orderly Relationship Specialty Start Date End Date Eldon Koehler MD PCP - General 10/06/07 documented as of this encounter
--- OUTSIDE RECORDS SUMMARY | 2024-08-06 11:15 | XMS_ITS | Encounter Summary ---
Author Organization [facility] Address [address] [place] [address] Care Team Providers Care Traffic Administrator Name Role Phone Eldon Koehler MD Primary Care Provider [phone] Encounter Details Date Type Department Care Team (Late st Contact Info) Description 01/28/2006 Orders Only [facility] Internal Medicine [address] [address] Eldon Koehler MD [address] [place] [address] Social History Tobacco Use Types Packs/Day Years Used Date Smoking Tobacco: Never Assessed Comments Unknown Sex and Gender Information Value Date Recorded Sex Assigned at Not on file Legal Sex Female 3:04 AM SUB ACUTE CARE NURSE Gender Identity Not on file Sexual Orientation Not on file documented as of this encounter Progress Notes * Eldon Koehler MD - 02/23/2008 6:10 PM CDT TIME:10:59 am PATIENT`S HOME PHONE: PATIENT`S WORK PHONE: PATIENT`S INSURANCE: [employer] [facility] WHO TOOK THE CALL: Mitra Ward L GENERAL INFORMATION ALTERNATIVE PHONE NUMBER: [phone] WHO CALLED: Patient called. SECTION 1: REQUESTED [...] Description 02/04/2025 10:40 AM CDT Office Visit [facility] [place] [address] Eldon Koehler MD [address] [place] [address] documented as of this encounter Visit Diagnoses Not on filedocumented in this encounter Additional Health Concerns Infection Onset Date Last Indicated Resolved Time R/O COVID-19 04/24/2020 04/25/2020 04/27/2020 7:01 AM SUB ACUTE CARE NURSE R/O COVID-19 04/27/2021 05/02/2021 05/04/2021 1:16 AM SUB ACUTE CARE NURSE documented as of this encounter Care Teams Traffic Administrator Relationship Specialty Start Date End Date Eldon Koehler MD PCP - General 10/06/07 documented as of this encounter
--- OUTSIDE RECORDS SUMMARY | 2024-08-06 11:15 | XMS_ITS | Encounter Summary ---
Author Organization [facility] Address [address] [place] [address] Care Team Providers Care Hygiene Teacher Name Role Phone Eldon Koehler MD Primary Care Provider [phone] Encounter Details Date Type Department Care Team (Late st Contact Info) Description 06/08/2003 Outpatient Historical [facility] Internal Medicine [address] [phone] Meliton Odonnell MD [address] [place] [address] Social History Tobacco Use Types Packs/Day Years Used Date Smoking Tobacco: Never Assessed Comments Unknown Sex and Gender Information Value Date Recorded Sex Assigned at Not on file Legal Sex Female 3:04 AM SOLUTIONS ENGINEER Gender Identity Not on file Sexual Orientation Not on file documented as of this encounter Last Filed Vital Signs Vital Sign Reading Time Taken Comments Blood Pressure 130/70 06/08/2003 3:30 PM SOLUTIONS ENGINEER Pulse - - Temperature - - Respiratory Rate - - Oxygen Saturation - - Inhaled Oxygen Concentration - - Weight 112 kg (247 lb) 06/08/2003 3:30 PM SOLUTIONS ENGINEER Height 170.2 cm (5' 7 ) 06/08/2003 3:30 PM SOLUTIONS ENGINEER Body Mass Index 38.69 06/08/2003 3:30 PM SOLUTIONS ENGINEER documented in this encounter Plan of Treatment Upcoming Encounters Date Type Department Care Team (Late st Contact Info) Description 02/04/2025 10:40 AM CDT Office Visit [facility] [address] [place] [address] [address] [place] [address] Eldon Koehler MD [address] [place] [address] [address] [place] [address] documented as of this encounter Visit Diagnoses Not on filedocumented in this encounter Additional Health Concerns Infection Onset Date Last Indicated Resolved Time R/O COVID-19 04/24/2020 04/25/2020 04/27/2020 7:01 AM SOLUTIONS ENGINEER R/O COVID-19 04/27/2021 05/02/2021 05/04/2021 1:16 AM SOLUTIONS ENGINEER documented as of this encounter Care Teams Hygiene Teacher Relationship Specialty Start Date End Date Eldon Koehler MD PCP - General 10/06/07 documented as of this encounter
--- OUTSIDE RECORDS SUMMARY | 2024-08-06 11:15 | XMS_ITS | Encounter Summary ---
Author Organization [facility] Address [address] [place] [address] Care Team Providers Care Wellness Health Coach Name Role Phone Eldon Koehler MD Primary Care Provider [phone] Encounter Details Date Type Department Care Team (Late st Contact Info) Description 01/15/2006 Orders Only [facility] Internal Medicine [address] [address] Eldon Koehler MD [address] [place] [address] Social History Tobacco Use Types Packs/Day Years Used Date Smoking Tobacco: Never Assessed Comments Unknown Sex and Gender Information Value Date Recorded Sex Assigned at Not on file Legal Sex Female 3:04 AM MASTER PLUMBER Gender Identity Not on file Sexual Orientation [...] slightly LAB ORDERS: 3 mo Order number: [id number] Test Ordered: COMPREHENSIVE METABOLIC PANEL W/ GLOMERULAR FILTRATION RATE, ESTIMATED (EGFR) 64913 Order number: [id number] Test Ordered: LIPID PANEL 7600 Order number: [id number] Test Ordered: TSH 899 272.4-HYPERLIPIDEMIA cont med 311-DEPRESSION cont med 715.90-OSTEOARTHROSIS UNSPECIFIED celebrex prn RETURN VISIT : Patient instructed to return in 3 months. Electronically Signed by: Eldon Koehler MD on Sunday, January 15, 2006 documented in this encounter Plan of Treatment Upcoming Encounters Date Type Department Care Team (Late st Contact Info) Description 02/04/2025 10:40 AM CDT Office Visit [facility] Primary Care [place] [address] Eldon Koehler MD [address] [place] [address] documented as of this encounter Visit Diagnoses Not on filedocumented in this encounter Additional Health Concerns Infection Onset Date Last Indicated Resolved Time R/O COVID-19 04/24/2020 04/25/2020 04/27/2020 7:01 AM MASTER PLUMBER R/O COVID-19 04/27/2021 05/02/2021 05/04/2021 1:16 AM MASTER PLUMBER documented as of this encounter Care Teams Wellness Health Coach Relationship Specialty Start Date End Date Eldon Koehler MD PCP - General 10/06/07 documented as of this encounter
--- OUTSIDE RECORDS SUMMARY | 2024-08-06 11:15 | XMS_ITS | Encounter Summary ---
Author Organization [facility] Address [address] [place] [address] Care Team Providers Care Policy Officer Name Role Phone Eldon Koehler MD Primary Care Provider [phone] Encounter Details Date Type Department Care Team (Late st Contact Info) Description 10/16/2005 Outpatient Historical [facility] Internal Medicine [address] [phone] Eldon Koehler MD [address] [place] [address] [address] [place] [address] Social History Tobacco Use Types Packs/Day Years Used Date Smoking Tobacco: Never Assessed Comments Unknown Sex and Gender Information Value Date Recorded Sex Assigned at Not on file Legal Sex Female 3:04 AM TECHNICAL ACCOUNT MANAGER Gender Identity Not on file Sexual [...] Body Mass Index 39.16 06/08/2003 3:30 PM TECHNICAL ACCOUNT MANAGER documented in this encounter Plan of Treatment Upcoming Encounters Date Type Department Care Team (Late st Contact Info) Description 02/04/2025 10:40 AM CDT Office Visit [facility] Primary Care [address] [place] [phone] Eldon Koehler MD [address] [place] [address] [address] [place] [phone] documented as of this encounter Visit Diagnoses Not on filedocumented in this encounter Additional Health Concerns Infection Onset Date Last Indicated Resolved Time R/O COVID-19 04/24/2020 04/25/2020 04/27/2020 7:01 AM TECHNICAL ACCOUNT MANAGER R/O COVID-19 04/27/2021 05/02/2021 05/04/2021 1:16 AM TECHNICAL ACCOUNT MANAGER documented as of this encounter Care Teams Policy Officer Relationship Specialty Start Date End Date Eldon Koehler MD PCP - General 10/06/07 documented as of this encounter
--- OUTSIDE RECORDS SUMMARY | 2024-08-06 11:15 | XMS_ITS | Encounter Summary ---
Author Organization [facility] Address [address] [place] [address] Care Team Providers Care Tank Processor Name Role Phone Eldon Koehler MD Primary Care Provider [phone] Encounter Details Date Type Department Care Team (Late st Contact Info) Description 06/05/2007 Outpatient Historical [facility] Internal Medicine [address] [address] Eldon Koehler MD [address] [place] [address] [address] [place] [address] Social History Tobacco Use Types Packs/Day Years Used Date Smoking Tobacco: Never Assessed Comments Unknown Sex and Gender Information Value Date Recorded Sex Assigned at Not on file Legal Sex Female 3:04 AM RN FIRST ASSISTANT Gender Identity Not on file Sexual Orientation Not on file documented as of this encounter Plan of Treatment Upcoming Encounters Date Type Department Care Team (Late st Contact Info) Description 02/04/2025 10:40 AM CDT Office Visit [facility] Primary Care [address] [place] [address] Eldon Koehler MD [address] [place] [address] [address] [place] [phone] documented as of this encounter Visit Diagnoses Not on filedocumented in this encounter Additional Health Concerns Infection Onset Date Last Indicated Resolved Time R/O COVID-19 04/24/2020 04/25/2020 04/27/2020 7:01 AM RN FIRST ASSISTANT R/O COVID-19 04/27/2021 05/02/2021 05/04/2021 1:16 AM RN FIRST ASSISTANT documented as of this encounter Care Teams Tank Processor Relationship Specialty Start Date End Date Eldon Koehler MD PCP - General 10/06/07 documented as of this encounter
--- OUTSIDE RECORDS SUMMARY | 2024-08-06 11:15 | XMS_ITS | Encounter Summary ---
Author Organization [facility] Address [address] [place] [address] Care Team Providers Care Simulation Engineer Name Role Phone Eldon Koehler MD Primary Care Provider [phone] Encounter Details Date Type Department Care Team (Late st Contact Info) Description 08/26/2006 Outpatient Historical [facility] Internal Medicine [address] [address] Eldon Koehler MD [address] [place] [address] Social History Tobacco Use Types Packs/Day Years Used Date Smoking Tobacco: Never Assessed Comments Unknown Sex and Gender Information Value Date Recorded Sex Assigned at Not on file Legal Sex Female 3:04 AM TIMBER MILL WORKER Gender Identity Not on file Sexual [...] Body Mass Index 40.1 06/08/2003 3:30 PM TIMBER MILL WORKER documented in this encounter Plan of Treatment Upcoming Encounters Date Type Department Care Team (Late st Contact Info) Description 02/04/2025 10:40 AM CDT Office Visit [facility] Primary Care [address] [place] [phone] Eldon Koehler MD [address] [place] [address] [address] [place] [phone] documented as of this encounter Visit Diagnoses Not on filedocumented in this encounter Additional Health Concerns Infection Onset Date Last Indicated Resolved Time R/O COVID-19 04/24/2020 04/25/2020 04/27/2020 7:01 AM TIMBER MILL WORKER R/O COVID-19 04/27/2021 05/02/2021 05/04/2021 1:16 AM TIMBER MILL WORKER documented as of this encounter Care Teams Simulation Engineer Relationship Specialty Start Date End Date Eldon Koehler MD PCP - General 10/06/07 documented as of this encounter
--- OUTSIDE RECORDS SUMMARY | 2024-08-06 11:15 | XMS_ITS | Encounter Summary ---
Author Organization [facility] Address [address] [place] [address] Care Team Providers Care Lithographic Camera Operator Name Role Phone Eldon Koehler MD Primary Care Provider Encounter Details Date Type Department Care Team (Late st Contact Info) Description 08/03/2007 Outpatient Historical [facility] Internal Medicine [address] [phone] Eldon Koehler MD [address] [place] [address] [address] [place] [address] Social History Tobacco Use Types Packs/Day Years Used Date Smoking Tobacco: Never Assessed Comments Unknown Sex and Gender Information Value Date Recorded Sex Assigned at Not on file Legal Sex Female 3:04 AM TITLE SPECIALIST Gender Identity Not on file Sexual [...] Body Mass Index 41.97 06/08/2003 3:30 PM TITLE SPECIALIST documented in this encounter Plan of Treatment Upcoming Encounters Date Type Department Care Team (Late st Contact Info) Description 02/04/2025 10:40 AM CDT Office Visit [facility] Primary Care [address] [place] [phone] Eldon Koehler MD [address] [place] [address] [address] [place] [address] documented as of this encounter Visit Diagnoses Not on filedocumented in this encounter Additional Health Concerns Infection Onset Date Last Indicated Resolved Time R/O COVID-19 04/24/2020 04/25/2020 04/27/2020 7:01 AM TITLE SPECIALIST R/O COVID-19 04/27/2021 05/02/2021 05/04/2021 1:16 AM TITLE SPECIALIST documented as of this encounter Care Teams Lithographic Camera Operator Relationship Specialty Start Date End Date Eldon Koehler MD PCP - General 10/06/07 documented as of this encounter
--- OUTSIDE RECORDS SUMMARY | 2024-08-06 11:15 | XMS_ITS | Encounter Summary ---
Author Organization [facility] Address [address] [place] [address] Care Team Providers Care Terrazzo Mechanic Helper Name Role Phone Eldon Koehler MD Primary Care Provider Encounter Details Date Type Department Care Team (Late st Contact Info) Description 01/27/2007 Orders Only [facility] Internal Medicine [address] [address] Eldon Koehler MD [address] [place] [address] [address] [place] [address] Social History Tobacco Use Types Packs/Day Years Used Date Smoking Tobacco: Never Assessed Comments Unknown Sex and Gender Information Value Date Recorded Sex Assigned at Not on file Legal Sex Female 3:04 AM PHARMACY SCHEDULER Gender Identity Not on file Sexual Orientation Not on file documented as of this encounter Plan of Treatment Upcoming Encounters Date Type Department Care Team (Late st Contact Info) Description 02/04/2025 10:40 AM CDT Office Visit [facility] Primary Care [address] [place] [address] Eldon Koehler MD [address] [place] [address] [address] [place] [address] documented as of this encounter Visit Diagnoses Not on filedocumented in this encounter Additional Health Concerns Infection Onset Date Last Indicated Resolved Time R/O COVID-19 04/24/2020 04/25/2020 04/27/2020 7:01 AM PHARMACY SCHEDULER R/O COVID-19 04/27/2021 05/02/2021 05/04/2021 1:16 AM PHARMACY SCHEDULER documented as of this encounter Care Teams Terrazzo Mechanic Helper Relationship Specialty Start Date End Date Eldon Koehler MD PCP - General 10/06/07 documented as of this encounter
--- OUTSIDE RECORDS SUMMARY | 2024-08-06 11:15 | XMS_ITS | Encounter Summary ---
Author Organization [facility] Address [address] [place] [address] Care Team Providers Care Felt Coverer Name Role Phone Eldon Koehler MD Primary Care Provider [phone] Reason for Visit * Reason Comments Provider Call Encounter Details Date Type Department Care Team (Late st Contact Info) Description 08/06/2024 Telephone [facility] Primary Care [address] [place] [address] Eldon Koehler MD [address] [place] [address] [address] [place] [address] Provider Call Social History Tobacco Use Types Packs/Day Years [...] on file Legal Sex Female 3:04 AM VOCATIONAL AIDE Gender Identity Not on file Sexual Orientation Not on file Occupation Industry Job Start Date Job End Date RETIRED Not on file Not on file Not on file documented as of this encounter Miscellaneous Notes * Telephone Encounter - Suri Hunt RN - 08/06/2024 10:46 AM CDT Order for bone density test, faxed to the requested phone # * Telephone Encounter - Sonido Mejía - 08/06/2024 10:18 AM CDT Copied from [facility] #[id number]. Topic: [id number] Call >> Aug 06, 2024 10:10 AM Sonido Mejia wrote: Caller is requesting to speak with Clinical Care Team. Caller Name: Brenda ([facility]) Callback Number: [phone] Clinician Type: Other healthcare professional not listed above Call Notes: Needing bone density order from Dr. Koehler. States has patient next to her. Fax #: [phone] Is this addressing an immediate patient care need? Yes Transferred to Backline/ANIMAL SHELTER SUPERVISOR Line and Bridgett answered call. documented in this encounter Plan of Treatment Upcoming Encounters Date Type Department Care Team (Late st Contact Info) Description 02/04/2025 10:40 AM CDT Office Visit [facility] Primary Care [place] [address] [place] [address] Eldon Koehler MD [address] [place] [address] [address] [place] [address] documented as of this encounter Visit Diagnoses Not on filedocumented in this encounter Care Teams Felt Coverer Relationship Specialty Start Date End Date Eldon Koehler MD PCP - General 10/06/07 documented as of this encounter
== END 2024-08-06 10:09 | disposition home or self-care (01) ==
PROVIDERS: PCP Internal Medicine; Visit Provider Internal Medicine
DX: M85.88 Other specified disorders of bone density and structure, other site (principal); M85.852 Other specified disorders of bone density and structure, left thigh; M85.851 Other specified disorders of bone density and structure, right thigh
CPT/HCPCS: 77080

== ENCOUNTER 2024-09-29 15:01 | Emergency (ER) | payer MEDICARE, SELFPAY ==
--- NOTE | ~2024-09-29 | XR_ITS ---
XR tibia fibula LT 2V Ordering provider: Rebecca Sierra MD History: . TRAUMA, SWELLING AND BRUSING TO MEDIAL LOWER LEG . Comparison: None. FINDINGS: BONES: No acute fracture or dislocation. JOINT SPACES: Total knee arthroplasty. SOFT TISSUES: Normal. IMPRESSION: No acute osseous abnormality left leg. Total knee arthroplasty. Reviewed, dictated and finalized at location A.
--- OUTSIDE RECORDS SUMMARY | 2024-09-29 15:06 | XMS_ITS | Encounter Summary ---
Author Organization [facility] Address [address] [place] [address] Care Team Providers Care Char Filter Tank Tender Head Name Role Phone Eldon Koehler MD Primary Care Provider [phone] Encounter Details Date Type Department Care Team (Late Contact Info) Description 04/19/2005 Outpatient Historical [facility] Internal Medicine [address] [phone] Eldon Koehler MD [address] [place] [address] [address] [place] [address] Social History Tobacco Use Types Packs/Day Years Used Date Smoking Tobacco: Never Assessed Comments Unknown Sex and Gender Information Value Date Recorded Sex Assigned at Not on file Legal Sex Female 3:04 AM FIRE CONTROL OFFICER Gender Identity Not on file Sexual Orientation Not on file documented as of this encounter Last Filed Vital Signs Vital Sign Reading Time Taken Comments Blood Pressure 130/80 04/19/2005 1:00 PM FIRE CONTROL OFFICER Pulse - - Temperature - - Respiratory Rate - - Oxygen Saturation - - Inhaled Oxygen Concentration - - Weight 112.5 kg (248 lb) 04/19/2005 1:00 PM FIRE CONTROL OFFICER Height - - Body Mass Index 38.84 06/08/2003 3:30 PM FIRE CONTROL OFFICER documented in this encounter Plan of Treatment Upcoming Encounters Date Type Department Care Team (Late st Contact Info) Description 02/04/2025 10:40 AM CDT Office Visit [facility] Primary Care [address] [place] [phone] Eldon Koehler MD [address] [place] [address] [address] [place] [phone] documented as of this encounter Visit Diagnoses Not on filedocumented in this encounter Additional Health Concerns Infection Onset Date Last Indicated Resolved Time R/O COVID-19 04/24/2020 04/25/2020 04/27/2020 7:01 AM FIRE CONTROL OFFICER R/O COVID-19 04/27/2021 05/02/2021 05/04/2021 1:16 AM FIRE CONTROL OFFICER documented as of this encounter Care Teams Char Filter Tank Tender Head Relationship Specialty Start Date End Date Eldon Koehler MD PCP - General 10/06/07 documented as of this encounter
--- OUTSIDE RECORDS SUMMARY | 2024-09-29 15:06 | XMS_ITS | Encounter Summary ---
Author Organization [facility] Address [address] [place] [address] Care Team Providers Care E Merchant Name Role Phone Eldon Koehler MD Primary Care Provider [phone] Encounter Details Date Type Department Care Team (Late st Contact Info) Description 12/30/2006 Orders Only [facility] Internal Medicine [address] [address] Eldon Koehler MD [address] [place] [address] Social History Tobacco Use Types Packs/Day Years Used Date Smoking Tobacco: Never Assessed Comments Unknown Sex and Gender Information Value Date Recorded Sex Assigned at Not on file Legal Sex Female 3:04 AM WEDDING PLANNER Gender Identity Not on file Sexual Orientation Not on file documented as of this encounter Progress Notes * Eldon Koehler MD - 09/29/2007 1:43 PM CDT TIME:10:05 am PATIENT`S HOME PHONE: PATIENT`S WORK PHONE: PATIENT`S INSURANCE: [employer] [facility] WHO TOOK THE CALL: Mitra Ward L GENERAL INFORMATION ALTERNATIVE PHONE NUMBER: [phone](call pt back) WHO CALLED: Patient called. Patient reports no known allergies. PHARMACY NUMBER: [phone] PROBLEMS: Seen in the office on 12/17/06. [...] Description 02/04/2025 10:40 AM CDT Office Visit [facility] Care [address] [phone] Eldon Koehler MD [address] [place] [phone] documented as of this encounter Visit Diagnoses Not on filedocumented in this encounter Additional Health Concerns Infection Onset Date Last Indicated Resolved Time R/O COVID-19 04/24/2020 04/25/2020 04/27/2020 7:01 AM WEDDING PLANNER R/O COVID-19 04/27/2021 05/02/2021 05/04/2021 1:16 AM WEDDING PLANNER documented as of this encounter Care Teams E Merchant Relationship Specialty Start Date End Date Eldon Koehler MD PCP - General 10/06/07 documented as of this encounter
--- OUTSIDE RECORDS SUMMARY | 2024-09-29 15:06 | XMS_ITS | Encounter Summary ---
Author Organization [facility] Address [address] [place] [address] Care Team Providers Care Edge Beader Name Role Phone Eldon Koehler MD Primary Care Provider [phone] Encounter Details Date Type Department Care Team (Late st Contact Info) Description 06/05/2007 Outpatient Historical [facility] Internal Medicine [address] [address] Eldon Koehler MD [address] [place] [address] [address] [place] [address] Social History Tobacco Use Types Packs/Day Years Used Date Smoking Tobacco: Never Assessed Comments Unknown Sex and Gender Information Value Date Recorded Sex Assigned at Not on file Legal Sex Female 3:04 AM DIRECTOR REPORT Gender Identity Not on file Sexual Orientation Not on file documented as of this encounter Plan of Treatment Upcoming Encounters Date Type Department Care Team (Late st Contact Info) Description 02/04/2025 10:40 AM CDT Office Visit [facility] Primary Care [address] [place] [address] Eldon Koehler MD [address] [place] [address] [address] [place] [phone] documented as of this encounter Visit Diagnoses Not on filedocumented in this encounter Additional Health Concerns Infection Onset Date Last Indicated Resolved Time R/O COVID-19 04/24/2020 04/25/2020 04/27/2020 7:01 AM DIRECTOR REPORT R/O COVID-19 04/27/2021 05/02/2021 05/04/2021 1:16 AM DIRECTOR REPORT documented as of this encounter Care Teams Edge Beader Relationship Specialty Start Date End Date Eldon Koehler MD PCP - General 10/06/07 documented as of this encounter
--- OUTSIDE RECORDS SUMMARY | 2024-09-29 15:06 | XMS_ITS | Encounter Summary ---
Author Organization [facility] Address [address] [place] [address] Care Team Providers Care Hand Drawer In Helper Name Role Phone Eldon Koehler MD Primary Care Provider [phone] Encounter Details Date Type Department Care Team (Late st Contact Info) Description 01/28/2006 Orders Only [facility] Internal Medicine [address] [address] Eldon Koehler MD [address] [place] [address] Social History Tobacco Use Types Packs/Day Years Used Date Smoking Tobacco: Never Assessed Comments Unknown Sex and Gender Information Value Date Recorded Sex Assigned at Not on file Legal Sex Female 3:04 AM HEAD OF DIGITAL Gender Identity Not on file Sexual Orientation Not on file documented as of this encounter Progress Notes * Eldon Koehler MD - 02/23/2008 6:10 PM CDT TIME:10:59 am PATIENT`S HOME PHONE: PATIENT`S WORK PHONE: PATIENT`S INSURANCE: [employer] [facility] WHO TOOK THE CALL: Mitra Ward L GENERAL INFORMATION ALTERNATIVE PHONE NUMBER: [phone] WHO CALLED: Patient called. SECTION 1: REQUESTED [...] [facility] [place] [address] Eldon Koehler MD [address] [place] [address] documented as of this encounter Visit Diagnoses Not on filedocumented in this encounter Additional Health Concerns Infection Onset Date Last Indicated Resolved Time R/O COVID-19 04/24/2020 04/25/2020 04/27/2020 7:01 AM HEAD OF DIGITAL R/O COVID-19 04/27/2021 05/02/2021 05/04/2021 1:16 AM HEAD OF DIGITAL documented as of this encounter Care Teams Hand Drawer In Helper Relationship Specialty Start Date End Date Eldon Koehler MD PCP - General 10/06/07 documented as of this encounter
--- OUTSIDE RECORDS SUMMARY | 2024-09-29 15:06 | XMS_ITS | Encounter Summary ---
Author Organization [facility] Address [address] [place] [address] Care Team Providers Care Welding Teacher Name Role Phone Eldon Koehler MD Primary Care Provider [phone] Encounter Details Date Type Department Care Team (Late st Contact Info) Description 01/27/2007 Orders Only [facility] Internal Medicine [address] [address] Eldon Koehler MD [address] [place] [address] [address] [place] [address] Social History Tobacco Use Types Packs/Day Years Used Date Smoking Tobacco: Never Assessed Comments Unknown Sex and Gender Information Value Date Recorded Sex Assigned at Not on file Legal Sex Female 3:04 AM ASIAN ART CURATOR Gender Identity Not on file Sexual Orientation Not on file documented as of this encounter Plan of Treatment Upcoming Encounters Date Type Department Care Team (Late st Contact Info) Description 02/04/2025 10:40 AM CDT Office Visit [facility] Primary Care [address] [place] [address] Eldon Koehler MD [address] [place] [address] [address] [place] [address] documented as of this encounter Visit Diagnoses Not on filedocumented in this encounter Additional Health Concerns Infection Onset Date Last Indicated Resolved Time R/O COVID-19 04/24/2020 04/25/2020 04/27/2020 7:01 AM ASIAN ART CURATOR R/O COVID-19 04/27/2021 05/02/2021 05/04/2021 1:16 AM ASIAN ART CURATOR documented as of this encounter Care Teams Welding Teacher Relationship Specialty Start Date End Date Eldon Koehler MD PCP - General 10/06/07 documented as of this encounter
--- OUTSIDE RECORDS SUMMARY | 2024-09-29 15:06 | XMS_ITS | Encounter Summary ---
Author Organization [facility] Address [address] [place] [address] Care Team Providers Care Auto Overhauler Name Role Phone Eldon Koehler MD Primary Care Provider [phone] Encounter Details Date Type Department Care Team (Late st Contact Info) Description 01/15/2006 Orders Only [facility] Internal Medicine [address] [address] Eldon Koehler MD [address] [place] [address] Social History Tobacco Use Types Packs/Day Years Used Date Smoking Tobacco: Never Assessed Comments Unknown Sex and Gender Information Value Date Recorded Sex Assigned at Not on file Legal Sex Female 3:04 AM SAUSAGE STUFFER Gender Identity Not on file Sexual Orientation [...] slightly LAB ORDERS: 3 mo Order number: [id number] Test Ordered: COMPREHENSIVE METABOLIC PANEL W/ GLOMERULAR FILTRATION RATE, ESTIMATED (EGFR) 08503 Order number: [id number] Test Ordered: LIPID PANEL 7600 Order number: [id number] Test Ordered: TSH 899 272.4-HYPERLIPIDEMIA cont med [...] Office Visit [facility] Primary Care [place] [address] Eldon Koehler MD [address] [place] [address] documented as of this encounter Visit Diagnoses Not on filedocumented in this encounter Additional Health Concerns Infection Onset Date Last Indicated Resolved Time R/O COVID-19 04/24/2020 04/25/2020 04/27/2020 7:01 AM SAUSAGE STUFFER R/O COVID-19 04/27/2021 05/02/2021 05/04/2021 1:16 AM SAUSAGE STUFFER documented as of this encounter Care Teams Auto Overhauler Relationship Specialty Start Date End Date Eldon Koehler MD PCP - General 10/06/07 documented as of this encounter
--- OUTSIDE RECORDS SUMMARY | 2024-09-29 15:06 | XMS_ITS | Encounter Summary ---
Author Organization [facility] Address [address] [place] [address] Care Team Providers Care Manufacturing Engineering Manager Name Role Phone Eldon Koehler MD Primary Care Provider [phone] Encounter Details Date Type Department Care Team (Late st Contact Info) Description 07/30/2004 Outpatient Historical [facility] Internal Medicine [address] [address] Eldon Koehler MD [address] [place] [address] Social History Tobacco Use Types Packs/Day Years Used Date Smoking Tobacco: Never Assessed Comments Unknown Sex and Gender Information Value Date Recorded Sex Assigned at Not on file Legal Sex Female 3:04 AM MIDDLEWARE ENGINEER Gender Identity Not on file Sexual Orientation Not on file documented as of this encounter Last Filed Vital Signs Vital Sign Reading Time Taken Comments Blood Pressure 130/80 07/30/2004 3:00 PM MIDDLEWARE ENGINEER Pulse - - Temperature 36.9 C (98.4 F) 07/30/2004 3:00 PM MIDDLEWARE ENGINEER Respiratory Rate - - Oxygen Saturation - - Inhaled Oxygen Concentration - - Weight 113.4 kg (250 lb) 07/30/2004 3:00 PM MIDDLEWARE ENGINEER Height - - Body Mass Index 39.16 06/08/2003 3:30 PM MIDDLEWARE ENGINEER documented in this encounter Plan of Treatment Upcoming Encounters Date Type Department Care Team (Late st Contact Info) Description 02/04/2025 10:40 AM CDT Office Visit [facility] Primary Care [facility] [address] [place] [address] [address] [place] [phone] Eldon Koehler MD [address] [place] [address] [address] [place] [phone] documented as of this encounter Visit Diagnoses Not on filedocumented in this encounter Additional Health Concerns Infection Onset Date Last Indicated Resolved Time R/O COVID-19 04/24/2020 04/25/2020 04/27/2020 7:01 AM MIDDLEWARE ENGINEER R/O COVID-19 04/27/2021 05/02/2021 05/04/2021 1:16 AM MIDDLEWARE ENGINEER documented as of this encounter Care Teams Manufacturing Engineering Manager Relationship Specialty Start Date End Date Eldon Koehler MD PCP - General 10/06/07 documented as of this encounter
--- OUTSIDE RECORDS SUMMARY | 2024-09-29 15:06 | XMS_ITS | Encounter Summary ---
Author Organization [facility] Address [address] [place] [address] Care Team Providers Care Piercer Name Role Phone Eldon Koehler MD Primary Care Provider [phone] Encounter Details Date Type Department Care Team (Late st Contact Info) Description 01/05/2007 Orders Only [facility] Internal Medicine [address] [address] Eldon Koehler MD [address] [place] [address] Social History Tobacco Use Types Packs/Day Years Used Date Smoking Tobacco: Never Assessed Comments Unknown Sex and Gender Information Value Date Recorded Sex Assigned at Not on file Legal Sex Female 3:04 AM SUPERVISOR PIPELINE MAINTENANCE Gender Identity Not on file Sexual Orientation Not on file documented as of this encounter Progress Notes * Eldon Koehler MD - 09/29/2007 3:23 PM CDT TIME:11:16 am PATIENT`S HOME PHONE: PATIENT`S WORK PHONE: PATIENT`S INSURANCE: [employer] [facility] WHO TOOK THE CALL: Iliana Mike C GENERAL INFORMATION ALTERNATIVE PHONE NUMBER: [phone] WHO CALLED: Patient called. PROBLEMS: Requip is [...] 02/04/2025 10:40 AM CDT Office Visit [facility] [place] [address] Eldon Koehler MD [address] [place] [address] documented as of this encounter Visit Diagnoses Not on filedocumented in this encounter Additional Health Concerns Infection Onset Date Last Indicated Resolved Time R/O COVID-19 04/24/2020 04/25/2020 04/27/2020 7:01 AM SUPERVISOR PIPELINE MAINTENANCE R/O COVID-19 04/27/2021 05/02/2021 05/04/2021 1:16 AM SUPERVISOR PIPELINE MAINTENANCE documented as of this encounter Care Teams Piercer Relationship Specialty Start Date End Date Eldon Koehler MD PCP - General 10/06/07 documented as of this encounter
--- OUTSIDE RECORDS SUMMARY | 2024-09-29 15:06 | XMS_ITS | Encounter Summary ---
Author Organization [facility] Address [address] [place] [address] Care Team Providers Care Ash Conveyor Operator Name Role Phone Eldon Koehler MD Primary Care Provider Encounter Details Date Type Department Care Team (Late st Contact Info) Description 10/13/[address] [facility] Internal Medicine [address] [address] Eldon Koehler MD [address] [place] [address] [address] [place] [address] Social History Tobacco Use Types Packs/Day Years Used Date Smoking Tobacco: Never Assessed Comments Unknown Sex and Gender Information Value Date Recorded Sex Assigned at Not on file Legal Sex Female 3:04 AM DIECAST MACHINE OPERATOR Gender Identity Not on file Sexual Orientation Not on file documented as of this encounter Plan of Treatment Upcoming Encounters Date Type Department Care Team (Late st Contact Info) Description 02/04/2025 10:40 AM CDT Office Visit [facility] Primary Care [address] [place] [address] Eldon Koehler MD [address] [place] [address] [address] [place] [address] documented as of this encounter Visit Diagnoses Not on filedocumented in this encounter Additional Health Concerns Infection Onset Date Last Indicated Resolved Time R/O COVID-19 04/24/2020 04/25/2020 04/27/2020 7:01 AM DIECAST MACHINE OPERATOR R/O COVID-19 04/27/2021 05/02/2021 05/04/2021 1:16 AM DIECAST MACHINE OPERATOR documented as of this encounter Care Teams Ash Conveyor Operator Relationship Specialty Start Date End Date Eldon Koehler MD PCP - General 10/06/07 documented as of this encounter
--- OUTSIDE RECORDS SUMMARY | 2024-09-29 15:06 | XMS_ITS | Encounter Summary ---
Author Organization [facility] Address [address] [place] [address] Care Team Providers Care Strip Stamp Straightener Name Role Phone Eldon Koehler MD Primary Care Provider [phone] Encounter Details Date Type Department Care Team (Late st Contact Info) Description 12/17/2006 Outpatient Historical [facility] Internal Medicine [address] [phone] Eldon Koehler MD [address] [place] [address] [address] [place] [address] Social History Tobacco Use Types Packs/Day Years Used Date Smoking Tobacco: Never Assessed Comments Unknown Sex and Gender Information Value Date Recorded Sex Assigned at Not on file Legal Sex Female 3:04 AM PROPERTY FIELD INSPECTOR Gender Identity Not on file Sexual [...] Body Mass Index 39.63 06/08/2003 3:30 PM PROPERTY FIELD INSPECTOR documented in this encounter Plan of Treatment Upcoming Encounters Date Type Department Care Team (Late st Contact Info) Description 02/04/2025 10:40 AM CDT Office Visit [facility] Primary Care [address] [place] [phone] Eldon Koehler MD [address] [place] [address] [address] [place] [phone] documented as of this encounter Visit Diagnoses Not on filedocumented in this encounter Additional Health Concerns Infection Onset Date Last Indicated Resolved Time R/O COVID-19 04/24/2020 04/25/2020 04/27/2020 7:01 AM PROPERTY FIELD INSPECTOR R/O COVID-19 04/27/2021 05/02/2021 05/04/2021 1:16 AM PROPERTY FIELD INSPECTOR documented as of this encounter Care Teams Strip Stamp Straightener Relationship Specialty Start Date End Date Eldon Koehler MD PCP - General 10/06/07 documented as of this encounter
--- OUTSIDE RECORDS SUMMARY | 2024-09-29 15:06 | XMS_ITS | Encounter Summary ---
Author Organization [facility] Address [address] [place] [address] Care Team Providers Care Conference Planner Name Role Phone Eldon Koehler MD Primary Care Provider [phone] Encounter Details Date Type Department Care Team (Late st Contact Info) Description 01/15/2006 Outpatient Historical [facility] Internal Medicine [address] [phone] Eldon Koehler MD [address] [place] [address] [address] [place] [address] Social History Tobacco Use Types Packs/Day Years Used Date Smoking Tobacco: Never Assessed Comments Unknown Sex and Gender Information Value Date Recorded Sex Assigned at Not on file Legal Sex Female 3:04 AM TEST CASE DEVELOPER Gender Identity Not on file Sexual [...] Body Mass Index 39.47 06/08/2003 3:30 PM TEST CASE DEVELOPER documented in this encounter Plan of Treatment Upcoming Encounters Date Type Department Care Team (Late st Contact Info) Description 02/04/2025 10:40 AM CDT Office Visit [facility] Primary Care [address] [place] [phone] Eldon Koehler MD [address] [place] [address] [address] [place] [address] documented as of this encounter Visit Diagnoses Not on filedocumented in this encounter Additional Health Concerns Infection Onset Date Last Indicated Resolved Time R/O COVID-19 04/24/2020 04/25/2020 04/27/2020 7:01 AM TEST CASE DEVELOPER R/O COVID-19 04/27/2021 05/02/2021 05/04/2021 1:16 AM TEST CASE DEVELOPER documented as of this encounter Care Teams Conference Planner Relationship Specialty Start Date End Date Eldon Koehler MD PCP - General 10/06/07 documented as of this encounter
--- OUTSIDE RECORDS SUMMARY | 2024-09-29 15:06 | XMS_ITS | Encounter Summary ---
Author Organization [facility] Address [address] [place] [address] Care Team Providers Care Micro Lab Analyst Name Role Phone Eldon Koehler MD Primary Care Provider Encounter Details Date Type Department Care Team (Late st Contact Info) Description 06/05/2007 Outpatient Historical [facility] Internal Medicine [address] [address] Eldon Koehler MD [address] [place] [address] [address] [place] [address] Social History Tobacco Use Types Packs/Day Years Used Date Smoking Tobacco: Never Assessed Comments Unknown Sex and Gender Information Value Date Recorded Sex Assigned at Not on file Legal Sex Female 3:04 AM PUBLICATION SPECIALIST Gender Identity Not on file Sexual Orientation Not on file documented as of this encounter Plan of Treatment Upcoming Encounters Date Type Department Care Team (Late st Contact Info) Description 02/04/2025 10:40 AM CDT Office Visit [facility] Primary Care [address] [place] [address] Eldon Koehler MD [address] [place] [address] [address] [place] [phone] documented as of this encounter Visit Diagnoses Not on filedocumented in this encounter Additional Health Concerns Infection Onset Date Last Indicated Resolved Time R/O COVID-19 04/24/2020 04/25/2020 04/27/2020 7:01 AM PUBLICATION SPECIALIST R/O COVID-19 04/27/2021 05/02/2021 05/04/2021 1:16 AM PUBLICATION SPECIALIST documented as of this encounter Care Teams Micro Lab Analyst Relationship Specialty Start Date End Date Eldon Koehler MD PCP - General 10/06/07 documented as of this encounter
--- OUTSIDE RECORDS SUMMARY | 2024-09-29 15:06 | XMS_ITS | Encounter Summary ---
Author Organization [facility] Address [address] [place] [address] Care Team Providers Care Development Mechanic Name Role Phone Eldon Koehler MD Primary Care Provider [phone] Encounter Details Date Type Department Care Team (Late st Contact Info) Description 06/08/2003 Outpatient Historical [facility] Internal Medicine [address] [phone] Meliton Odonnell MD [address] [place] [address] Social History Tobacco Use Types Packs/Day Years Used Date Smoking Tobacco: Never Assessed Comments Unknown Sex and Gender Information Value Date Recorded Sex Assigned at Not on file Legal Sex Female 3:04 AM ADMINISTRATIVE PROFESSIONAL Gender Identity Not on file Sexual Orientation Not on file documented as of this encounter Last Filed Vital Signs Vital Sign Reading Time Taken Comments Blood Pressure 130/70 06/08/2003 3:30 PM ADMINISTRATIVE PROFESSIONAL Pulse - - Temperature - - Respiratory Rate - - Oxygen Saturation - - Inhaled Oxygen Concentration - - Weight 112 kg (247 lb) 06/08/2003 3:30 PM ADMINISTRATIVE PROFESSIONAL Height 170.2 cm (5' 7 ) 06/08/2003 3:30 PM ADMINISTRATIVE PROFESSIONAL Body Mass Index 38.69 06/08/2003 3:30 PM ADMINISTRATIVE PROFESSIONAL documented in this encounter Plan of Treatment Upcoming Encounters Date Type Department Care Team (Late st Contact Info) Description 02/04/2025 10:40 AM CDT Office Visit [facility] Primary Care [facility] [address] [place] [address] [address] [place] [address] Eldon Koehler MD [address] [place] [address] [address] [place] [address] documented as of this encounter Visit Diagnoses Not on filedocumented in this encounter Additional Health Concerns Infection Onset Date Last Indicated Resolved Time R/O COVID-19 04/24/2020 04/25/2020 04/27/2020 7:01 AM ADMINISTRATIVE PROFESSIONAL R/O COVID-19 04/27/2021 05/02/2021 05/04/2021 1:16 AM ADMINISTRATIVE PROFESSIONAL documented as of this encounter Care Teams Development Mechanic Relationship Specialty Start Date End Date Eldon Koehler MD PCP - General 10/06/07 documented as of this encounter
--- OUTSIDE RECORDS SUMMARY | 2024-09-29 15:06 | XMS_ITS | Encounter Summary ---
Author Organization [facility] Address [address] [place] [address] Care Team Providers Care Repair Order Clerk Name Role Phone Eldon Koehler MD Primary Care Provider [phone] Encounter Details Date Type Department Care Team (Late st Contact Info) Description 03/02/2007 Outpatient Historical [facility] Internal Medicine [address] [phone] Eldon Koehler MD [address] [place] [address] [address] [place] [address] Social History Tobacco Use Types Packs/Day Years Used Date Smoking Tobacco: Never Assessed Comments Unknown Sex and Gender Information Value Date Recorded Sex Assigned at Not on file Legal Sex Female 3:[address] Gender Identity Not on file Sexual Orientation [...] Body Mass Index 40.57 06/08/2003 3:[address] JUSTICE documented in this encounter Plan of Treatment Upcoming Encounters Date Type Department Care Team (Late st Contact Info) Description 02/04/2025 10:40 AM CDT Office Visit [facility] Primary Care [address] [place] [phone] Eldon Koehler MD [address] [place] [address] [address] [place] [phone] documented as of this encounter Visit Diagnoses Not on filedocumented in this encounter Additional Health Concerns Infection Onset Date Last Indicated Resolved Time R/O COVID-19 04/24/2020 04/25/2020 04/27/2020 7:[address] R/O COVID-19 04/27/2021 05/02/2021 05/04/2021 1:[address] JUST[address] documented as of this encounter Care Teams Repair Order Clerk Relationship Specialty Start Date End Date Eldon Koehler MD PCP - General 10/06/07 documented as of this encounter
--- OUTSIDE RECORDS SUMMARY | 2024-09-29 15:06 | XMS_ITS | Referral Summary ---
Author Organization [facility] Address [address] [place] [address] Care Team Providers Care Sox Analyst Name Role Phone Eldon Koehler MD [...] mcg tablet Take 150 mcg by mouth yard warehouse worker before breakfast [address] [...] (09/05/2020): Added automatically from request for surgery [id number] Prediabetes 12/24/2019 Obesity (BMI 35.0-39.9 without comorbidity) [...] on file Legal Sex Female 11:01 PM LABOR STANDARDS DIRECTOR Gender Identity Female 01/31/2021 9:15 AM CDT [...] on file Medical Devices Implanted Type Area Dispatch Machine Runner Device Identifier Shelf Expiration Date Model / Serial / Lot ASCENDANT [id number] Aequalis 29mm Reverse Long Post Shoulder Baseplate Glenoid Sequeira - [id number] - [id number] Implanted:Qty: 1 on 11/02/2020 by Salomón Edmondson MD at [facility] [employer] [facility] [id number] 12/04/2022 [id number] / [id number] / [employer] [id number] 36mm Reverse Ii Center Shoulder Sphere Glenoid Titanium - [id number] - [id number] Implanted:Qty: 1 on 11/02/2020 by Salomón Edmondson MD at [facility] [employer] [id number] 05/03/2024 [id number] / [id number] / [employer] [id number] Aequalis Reversed 4.5mm 20mm Compression Glenoid Screw Baseplate - [id number] Implanted:Qty: 1 on 11/02/2020 by Salomón Edmondson MD at [facility] [employer] [facility] [id number] / / 0 [employer] [id number] Aequalis Reversed 4.5mm 23mm Compression Glenoid Screw Baseplate - [id number] Implanted:Qty: 1 on 11/02/2020 by Salomón Edmondson MD at [facility] [employer] [id number] / / 0 [employer] [id number] Aequalis 4.5mm 38mm Lock Multidirectional Self Tap Shoulder Screw Latex Free - [id number] Implanted:Qty: 1 on 11/02/2020 by Salomón Edmondson MD at [facility] [employer] [id number] / / 0 [employer]is [employer] [id number] Screw Bsplt 41mm 4.5mm Aequalis Shoulder Ti Lock - [id number] Implanted:Qty: 1 on 11/02/2020 by Salomón Edmondson MD at [facility] [employer] [facility] [id number] / / 0 [employer] [id number] Insert Perform 10 Deg [id number] - [id number] Implanted:Qty: 1 on 11/02/2020 by Salomón Edmondson MD at [facility] [employer] [id number] / / [id number] [employer] [id number] Stem Perform Sz 2 Plus Humeral - [id number] Implanted:Qty: 1 on 11/02/2020 by Salomón Edmondson MD at [facility] [employer] [id number] / / [id number] Insurance MEDICARE [facility] Member Subscriber Plan / Payer (Ef fective 2020-Present) Name:Winifred Vallejo Relation to Subscriber:Self Name:Winifred Vallejo Payer ID:[id number] Group ID:Not on file Type:[employer] Address: [facility] [address] [place] [address] MEDICARE [facility] MEDICARE MEDICARE Advance Directives For more information, please contact: [phone] * Full Code (Latest Code Status on File) Date Activated Date Inactivated Comments 11/02/2020 6:21 PM 11/03/2020 7:12 PM Care Teams Sox Analyst Relationship Specialty Start Date End Date Eldon Koehler MD PCP - General Internal Medicine 08/04/20
--- OUTSIDE RECORDS SUMMARY | 2024-09-29 15:06 | XMS_ITS | Clinical Summary ---
Author Organization [facility] Address [address] [place] [address] Phone Care Team Providers Care Ink Jet Operator Name Role Phone Eldon Koehler MD Primary Care Provider [phone] Medications atorvastatin (LIPITOR) 20 MG Tablet 12/30/2023 [...] complete this topic Insurance MEDICARE Care Teams Ink Jet Operator Relationship Specialty Start Date End Date Eldon Koehler MD [address] [place] [phone] PCP - General 01/29/24
--- OUTSIDE RECORDS SUMMARY | 2024-09-29 15:06 | XMS_ITS | Encounter Summary ---
Author Organization [facility] Address [address] [place] [address] Care Team Providers Care Hvac Lead Name Role Phone Eldon Koehler MD Primary Care Provider [phone] Encounter Details Date Type Department Care Team (Late st Contact Info) Description 08/03/2007 Outpatient Historical [facility] Internal Medicine [address] [phone] Eldon Koehler MD [address] [place] [address] [address] [place] [address] Social History Tobacco Use Types Packs/Day Years Used Date Smoking Tobacco: Never Assessed Comments Unknown Sex and Gender Information Value Date Recorded Sex Assigned at Not on file Legal Sex Female 3:04 AM [place] CITY AUDITOR Gender Identity Not on file Sexual Orientation [...] Body Mass Index 41.97 06/08/2003 3:30 PM [place] AUDITOR documented in this encounter Plan of Treatment Upcoming Encounters Date Type Department Care Team (Late st Contact Info) Description 02/04/2025 10:40 AM CDT Office Visit [facility] Primary Care [address] [place] [phone] Eldon Koehler MD [address] [place] [address] [address] [place] [phone] documented as of this encounter Visit Diagnoses Not on filedocumented in this encounter Additional Health Concerns Infection Onset Date Last Indicated Resolved Time R/O COVID-19 04/24/2020 04/25/2020 04/27/2020 7:01 AM [place] AUDITOR R/O COVID-19 04/27/2021 05/02/2021 05/04/2021 1:16 AM [place] AUDITOR documented as of this encounter Care Teams Hvac Lead Relationship Specialty Start Date End Date Eldon Koehler MD PCP - General 10/06/07 documented as of this encounter
--- OUTSIDE RECORDS SUMMARY | 2024-09-29 15:06 | XMS_ITS | Encounter Summary ---
Author Organization [facility] Address [address] [place] [address] Care Team Providers Care Real Estate Management Specialist Name Role Phone Eldon Koehler MD Primary Care Provider [phone] Encounter Details Date Type Department Care Team (Late st Contact Info) Description 08/26/2006 Orders Only [facility] Internal Medicine [address] [address] Eldon Koehler MD [address] [place] [address] Social History Tobacco Use Types Packs/Day Years Used Date Smoking Tobacco: Never Assessed Comments Unknown Sex and Gender Information Value Date Recorded Sex Assigned at Not on file Legal Sex Female 3:04 AM PIECE MAKER Gender Identity Not on file Sexual Orientation [...] Description 02/04/2025 10:40 AM CDT Office Visit [facility] Primary Care [place] [address] Eldon Koehler MD [address] [place] [address] documented as of this encounter Visit Diagnoses Not on filedocumented in this encounter Additional Health Concerns Infection Onset Date Last Indicated Resolved Time R/O COVID-19 04/24/2020 04/25/2020 04/27/2020 7:01 AM PIECE MAKER R/O COVID-19 04/27/2021 05/02/2021 05/04/2021 1:16 AM PIECE MAKER documented as of this encounter Care Teams Real Estate Management Specialist Relationship Specialty Start Date End Date Eldon Koehler MD PCP - General 10/06/07 documented as of this encounter
--- OUTSIDE RECORDS SUMMARY | 2024-09-29 15:06 | XMS_ITS | Encounter Summary ---
Author Organization [facility] Address [address] [place] [address] Care Team Providers Care Rifle Case Repairer Name Role Phone Eldon Koehler MD Primary Care Provider [phone] Encounter Details Date Type Department Care Team (Late st Contact Info) Description 10/19/2004 Outpatient Historical [facility] Internal Medicine [address] [phone] Eldon Koehler MD [address] [place] [address] [address] [place] [address] Social History Tobacco Use Types Packs/Day Years Used Date Smoking Tobacco: Never Assessed Comments Unknown Sex and Gender Information Value Date Recorded Sex Assigned at Not on file Legal Sex Female 3:04 AM MEDICAL DIRECTOR OF HOSPICE Gender Identity Not on file Sexual Orientation [...] Body Mass Index 39 06/08/2003 3:30 PM MEDICAL DIRECTOR OF HOSPICE documented in this encounter Plan of Treatment Upcoming Encounters Date Type Department Care Team (Late st Contact Info) Description 02/04/2025 10:40 AM CDT Office Visit [facility] Primary Care [address] [place] [phone] Eldon Koehler MD [address] [place] [address] [address] [place] [address] documented as of this encounter Visit Diagnoses Not on filedocumented in this encounter Additional Health Concerns Infection Onset Date Last Indicated Resolved Time R/O COVID-19 04/24/2020 04/25/2020 04/27/2020 7:01 AM MEDICAL DIRECTOR OF HOSPICE R/O COVID-19 04/27/2021 05/02/2021 05/04/2021 1:16 AM MEDICAL DIRECTOR OF HOSPICE documented as of this encounter Care Teams Rifle Case Repairer Relationship Specialty Start Date End Date Eldon Koehler MD PCP - General 10/06/07 documented as of this encounter
--- OUTSIDE RECORDS SUMMARY | 2024-09-29 15:06 | XMS_ITS | Encounter Summary ---
Author Organization [facility] Address [address] [place] [address] Care Team Providers Care Mold Closer Helper Name Role Phone Eldon Koehler MD Primary Care Provider [phone] Encounter Details Date Type Department Care Team (Late st Contact Info) Description 07/20/2004 Outpatient Historical [facility] Internal Medicine [address] [address] Eldon Koehler MD [address] [place] [address] Social History Tobacco Use Types Packs/Day Years Used Date Smoking Tobacco: Never Assessed Comments Unknown Sex and Gender Information Value Date Recorded Sex Assigned at Not on file Legal Sex Female 3:04 AM CHARM FILTER OPERATOR HELPER Gender Identity Not on file Sexual Orientation Not on file documented as of this encounter Last Filed Vital Signs Vital Sign Reading Time Taken Comments Blood Pressure 130/70 07/20/2004 1:15 PM CHARM FILTER OPERATOR HELPER Pulse - - Temperature 36.9 C (98.4 F) 07/20/2004 1:15 PM CHARM FILTER OPERATOR HELPER Respiratory Rate - - Oxygen Saturation - - Inhaled Oxygen Concentration - - Weight 115.2 kg (254 lb) 07/20/2004 1:15 PM CHARM FILTER OPERATOR HELPER Height - - Body Mass Index 39.78 06/08/2003 3:30 PM CHARM FILTER OPERATOR HELPER documented in this encounter Plan of Treatment Upcoming Encounters Date Type Department Care Team (Late st Contact Info) Description 02/04/2025 10:40 AM CDT Office Visit [facility] Primary Care [facility] [address] [place] [address] [address] [place] [phone] Eldon Koehler MD [address] [place] [address] [address] [place] [phone] documented as of this encounter Visit Diagnoses Not on filedocumented in this encounter Additional Health Concerns Infection Onset Date Last Indicated Resolved Time R/O COVID-19 04/24/2020 04/25/2020 04/27/2020 7:01 AM CHARM FILTER OPERATOR HELPER R/O COVID-19 04/27/2021 05/02/2021 05/04/2021 1:16 AM CHARM FILTER OPERATOR HELPER documented as of this encounter Care Teams Mold Closer Helper Relationship Specialty Start Date End Date Eldon Koehler MD PCP - General 10/06/07 documented as of this encounter
--- OUTSIDE RECORDS SUMMARY | 2024-09-29 15:06 | XMS_ITS | Encounter Summary ---
Author Organization [facility] Address [address] [place] [address] Care Team Providers Care Nicking Machine Operator Name Role Phone Eldon Koehler MD Primary Care Provider [phone] Encounter Details Date Type Department Care Team (Late st Contact Info) Description 03/14/2004 Outpatient Historical [facility] Internal Medicine [address] [address] Eldon Koehler MD [address] [place] [address] Social History Tobacco Use Types Packs/Day Years Used Date Smoking Tobacco: Never Assessed Comments Unknown Sex and Gender Information Value Date Recorded Sex Assigned at Not on file Legal Sex Female 3:04 AM FREIGHT DELIVERY DRIVER Gender Identity Not on file Sexual Orientation Not on file documented as of this encounter Last Filed Vital Signs Vital Sign Reading Time Taken Comments Blood Pressure 150/80 03/14/2004 2:30 PM FREIGHT DELIVERY DRIVER Pulse - - Temperature 37.8 C (100.1 F) 03/14/2004 2:30 PM FREIGHT DELIVERY DRIVER Respiratory Rate - - Oxygen Saturation - - Inhaled Oxygen Concentration - - Weight 115.2 kg (254 lb) 03/14/2004 2:30 PM FREIGHT DELIVERY DRIVER Height - - Body Mass Index 39.78 06/08/2003 3:30 PM FREIGHT DELIVERY DRIVER documented in this encounter Plan of Treatment Upcoming Encounters Date Type Department Care Team (Late st Contact Info) Description 02/04/2025 10:40 AM CDT Office Visit [facility] Primary Care [facility] [address] [place] [address] [address] [place] [phone] Eldon Koehler MD [address] [place] [address] [address] [place] [phone] documented as of this encounter Visit Diagnoses Not on filedocumented in this encounter Additional Health Concerns Infection Onset Date Last Indicated Resolved Time R/O COVID-19 04/24/2020 04/25/2020 04/27/2020 7:01 AM FREIGHT DELIVERY DRIVER R/O COVID-19 04/27/2021 05/02/2021 05/04/2021 1:16 AM FREIGHT DELIVERY DRIVER documented as of this encounter Care Teams Nicking Machine Operator Relationship Specialty Start Date End Date Eldon Koehler MD PCP - General 10/06/07 documented as of this encounter
--- OUTSIDE RECORDS SUMMARY | 2024-09-29 15:06 | XMS_ITS | Encounter Summary ---
Author Organization [facility] Address [address] [place] [address] Care Team Providers Care Physiotherapy Practice Manager Name Role Phone Eldon Koehler MD Primary Care Provider [phone] Encounter Details Date Type Department Care Team (Late st Contact Info) Description 06/05/2007 Orders Only [facility] Internal Medicine [address] [address] Eldon Koehler MD [address] [place] [address] Social History Tobacco Use Types Packs/Day Years Used Date Smoking Tobacco: Never Assessed Comments Unknown Sex and Gender Information Value Date Recorded Sex Assigned at Not on file Legal Sex Female 3:04 AM ONCOLOGY TECHNICIAN Gender Identity Not on file Sexual [...] 244.9-HYPOTHYROIDISM contm ed LAB ORDERS: Order number: [id number] Test Ordered: COMPREHENSIVE METABOLIC PANEL & GFR 1112 Order number: [id number] Test Ordered: HEMOGLOBIN A1C 1814 Order number: [id number] Test Ordered: TSH 1720 Order number: [id number] Test Ordered: VITAMIN B12 LEVEL 1719 Order number: [id number] Test Ordered: SLEEP STUDY 272.4-HYPERLIPIDEMIA cont med, [...] Description 02/04/2025 10:40 AM CDT Office Visit [facility] [place] [address] Eldon Koehler MD [address] [place], [place] [phone] documented as of this encounter Visit Diagnoses Not on filedocumented in this encounter Additional Health Concerns Infection Onset Date Last Indicated Resolved Time R/O COVID-19 04/24/2020 04/25/2020 04/27/2020 7:01 AM ONCOLOGY TECHNICIAN R/O COVID-19 04/27/2021 05/02/2021 05/04/2021 1:16 AM ONCOLOGY TECHNICIAN documented as of this encounter Care Teams Physiotherapy Practice Manager Relationship Specialty Start Date End Date Eldon Koehler MD PCP - General 10/06/07 documented as of this encounter
--- OUTSIDE RECORDS SUMMARY | 2024-09-29 15:06 | XMS_ITS | Encounter Summary ---
Author Organization [facility] Address [address] [place] [address] Care Team Providers Care Manager Gaming Name Role Phone Eldon Koehler MD Primary Care Provider [phone] Encounter Details Date Type Department Care Team (Late st Contact Info) Description 09/28/2003 Outpatient Historical [facility] Internal Medicine [address] [phone] Eldon Koehler MD [address] [place] [address] [address] [place] [address] Social History Tobacco Use Types Packs/Day Years Used Date Smoking Tobacco: Never Assessed Comments Unknown Sex and Gender Information Value Date Recorded Sex Assigned at Not on file Legal Sex Female 3:04 AM PERSONAL DEVELOPMENT COACH Gender Identity Not on file Sexual Orientation [...] Body Mass Index 37.9 06/08/2003 3:30 PM PERSONAL DEVELOPMENT COACH documented in this encounter Plan of Treatment Upcoming Encounters Date Type Department Care Team (Late st Contact Info) Description 02/04/2025 10:40 AM CDT Office Visit [facility] Primary Care [address] [place] [phone] Eldon Koehler MD [address] [place] [address] [address] [place] [phone] documented as of this encounter Visit Diagnoses Not on filedocumented in this encounter Additional Health Concerns Infection Onset Date Last Indicated Resolved Time R/O COVID-19 04/24/2020 04/25/2020 04/27/2020 7:01 AM PERSONAL DEVELOPMENT COACH R/O COVID-19 04/27/2021 05/02/2021 05/04/2021 1:16 AM PERSONAL DEVELOPMENT COACH documented as of this encounter Care Teams Manager Gaming Relationship Specialty Start Date End Date Eldon Koehler MD PCP - General 10/06/07 documented as of this encounter
--- OUTSIDE RECORDS SUMMARY | 2024-09-29 15:06 | XMS_ITS | Encounter Summary ---
Author Organization [facility] Address [address] [place] [address] Care Team Providers Care International Controller Name Role Phone Eldon Koehler MD Primary Care Provider [phone] Encounter Details Date Type Department Care Team (Late st Contact Info) Description 08/26/2006 Outpatient Historical [facility] Internal Medicine [address] [address] Eldon Koehler MD [address] [place] [address] Social History Tobacco Use Types Packs/Day Years Used Date Smoking Tobacco: Never Assessed Comments Unknown Sex and Gender Information Value Date Recorded Sex Assigned at Not on file Legal Sex Female 3:04 AM ADMINISTRATIVE DIRECTOR Gender Identity Not on file Sexual Orientation [...] Body Mass Index 40.1 06/08/2003 3:30 PM ADMINISTRATIVE DIRECTOR documented in this encounter Plan of Treatment Upcoming Encounters Date Type Department Care Team (Late st Contact Info) Description 02/04/2025 10:40 AM CDT Office Visit [facility] Primary Care [address] [place] [phone] Eldon Koehler MD [address] [place] [address] [address] [place] [phone] documented as of this encounter Visit Diagnoses Not on filedocumented in this encounter Additional Health Concerns Infection Onset Date Last Indicated Resolved Time R/O COVID-19 04/24/2020 04/25/2020 04/27/2020 7:01 AM ADMINISTRATIVE DIRECTOR R/O COVID-19 04/27/2021 05/02/2021 05/04/2021 1:16 AM ADMINISTRATIVE DIRECTOR documented as of this encounter Care Teams International Controller Relationship Specialty Start Date End Date Eldon Koehler MD PCP - General 10/06/07 documented as of this encounter
--- OUTSIDE RECORDS SUMMARY | 2024-09-29 15:06 | XMS_ITS | Encounter Summary ---
Author Organization [facility] Address [address] [place] [address] Care Team Providers Care Cushion Mat Maker Name Role Phone Eldon Koehler MD Primary Care Provider Encounter Details Date Type Department Care Team (Late st Contact Info) Description 05/21/2005 Orders Only [facility] Internal Medicine [address] [address] Eldon Koehler MD [address] [place] [address] [address] [place] [address] Social History Tobacco Use Types Packs/Day Years Used Date Smoking Tobacco: Never Assessed Comments Unknown Sex and Gender Information Value Date Recorded Sex Assigned at Not on file Legal Sex Female 3:04 AM MANAGER HARDWARE Gender Identity Not on file Sexual Orientation Not on file documented as of this encounter Plan of Treatment Upcoming Encounters Date Type Department Care Team (Late st Contact Info) Description 02/04/2025 10:40 AM CDT Office Visit [facility] Primary Care [address] [place] [address] Eldon Koehler MD [address] [place] [address] [address] [place] [address] documented as of this encounter Visit Diagnoses Not on filedocumented in this encounter Additional Health Concerns Infection Onset Date Last Indicated Resolved Time R/O COVID-19 04/24/2020 04/25/2020 04/27/2020 7:01 AM MANAGER HARDWARE R/O COVID-19 04/27/2021 05/02/2021 05/04/2021 1:16 AM MANAGER HARDWARE documented as of this encounter Care Teams Cushion Mat Maker Relationship Specialty Start Date End Date Eldon Koehler MD PCP - General 10/06/07 documented as of this encounter
--- OUTSIDE RECORDS SUMMARY | 2024-09-29 15:06 | XMS_ITS | Encounter Summary ---
Author Organization [facility] Address [address] [place] [address] Care Team Providers Care Panel Flow Machine Operator Name Role Phone Eldon Koehler MD Primary Care Provider [phone] Encounter Details Date Type Department Care Team (Late st Contact Info) Description 08/03/2007 Orders Only [facility] Internal Medicine [address] [address] Eldon Koehler MD [address] [place] [address] Social History Tobacco Use Types Packs/Day Years Used Date Smoking Tobacco: Never Assessed Comments Unknown Sex and Gender Information Value Date Recorded Sex Assigned at Not on file Legal Sex Female 3:04 AM GASOLINE ATTENDANT Gender Identity Not on file Sexual [...] lab LAB ORDERS: 3 mo Order number: [id number] Test Ordered: COMPREHENSIVE METABOLIC PANEL & GFR 1112 Order number: [id number] Test Ordered: LIPID PANEL 1078 Order number: [id number] Test Ordered: HEMOGLOBIN A1C 1814 Order number: [id number] Test Ordered: TSH 1720 PREVENTIVE COUNSELING The [...] Visit [facility] Primary Care [place] [address] Eldon Koehler MD [address] [place] [address] documented as of this encounter Visit Diagnoses Not on filedocumented in this encounter Additional Health Concerns Infection Onset Date Last Indicated Resolved Time R/O COVID-19 04/24/2020 04/25/2020 04/27/2020 7:01 AM GASOLINE ATTENDANT R/O COVID-19 04/27/2021 05/02/2021 05/04/2021 1:16 AM GASOLINE ATTENDANT documented as of this encounter Care Teams Panel Flow Machine Operator Relationship Specialty Start Date End Date Eldon Koehler MD PCP - General 10/06/07 documented as of this encounter
--- OUTSIDE RECORDS SUMMARY | 2024-09-29 15:06 | XMS_ITS | Encounter Summary ---
Author Organization [facility] Address [address] [place] [address] Care Team Providers Care Game Room Attendant Name Role Phone Eldon Koehler MD Primary Care Provider [phone] Encounter Details Date Type Department Care Team (Late st Contact Info) Description 07/10/2005 Outpatient [facility] Internal Medicine [address] [address] Eldon Koehler MD [address] [place] [address] Social History Tobacco Use Types Packs/Day Years Used Date Smoking Tobacco: Never Assessed Comments Unknown Sex and Gender Information Value Date Recorded Sex Assigned at Not on file Legal Sex Female 3:04 AM INTERIOR PLANT CARETAKER Gender Identity Not on file Sexual Orientation Not on file documented as of this encounter Last Filed Vital Signs Vital Sign Reading Time Taken Comments Blood Pressure 130/80 07/10/2005 1:45 PM INTERIOR PLANT CARETAKER Pulse - - Temperature 37.4 C (99.32 F) 07/10/2005 1:45 PM INTERIOR PLANT CARETAKER Respiratory Rate - - Oxygen Saturation - - Inhaled Oxygen Concentration - - Weight 113.4 kg (250 lb) 07/10/2005 1:45 PM INTERIOR PLANT CARETAKER Height - - Body Mass Index 39.16 06/08/2003 3:30 PM INTERIOR PLANT CARETAKER documented in this encounter Plan of Treatment Upcoming Encounters Date Type Department Care Team (Late st Contact Info) Description 02/04/2025 10:40 AM CDT Office Visit [facility] Primary Care [facility] [address] [place] [address] [address] [place] [phone] Eldon Koehler MD [address] [place] [address] [address] [place] [phone] documented as of this encounter Visit Diagnoses Not on filedocumented in this encounter Additional Health Concerns Infection Onset Date Last Indicated Resolved Time R/O COVID-19 04/24/2020 04/25/2020 04/27/2020 7:01 AM INTERIOR PLANT CARETAKER R/O COVID-19 04/27/2021 05/02/2021 05/04/2021 1:16 AM INTERIOR PLANT CARETAKER documented as of this encounter Care Teams Game Room Attendant Relationship Specialty Start Date End Date Eldon Koehler MD PCP - General 10/06/07 documented as of this encounter
--- OUTSIDE RECORDS SUMMARY | 2024-09-29 15:06 | XMS_ITS | Encounter Summary ---
Author Organization [facility] Address [address] [place] [address] Care Team Providers Care Resistor Coater Name Role Phone Eldon Koehler MD Primary Care Provider [phone] Encounter Details Date Type Department Care Team (Late st Contact Info) Description 10/16/2005 Outpatient Historical [facility] Internal Medicine [address] [phone] Eldon Koehler MD [address] [place] [address] [address] [place] [address] Social History Tobacco Use Types Packs/Day Years Used Date Smoking Tobacco: Never Assessed Comments Unknown Sex and Gender Information Value Date Recorded Sex Assigned at Not on file Legal Sex Female 3:04 AM NATIONAL SALES TRAINER Gender Identity Not on file Sexual Orientation [...] Body Mass Index 39.16 06/08/2003 3:30 PM NATIONAL SALES TRAINER documented in this encounter Plan of Treatment Upcoming Encounters Date Type Department Care Team (Late st Contact Info) Description 02/04/2025 10:40 AM CDT Office Visit [facility] Primary Care [address] [place] [phone] Eldon Koehler MD [address] [place] [address] [address] [place] [phone] documented as of this encounter Visit Diagnoses Not on filedocumented in this encounter Additional Health Concerns Infection Onset Date Last Indicated Resolved Time R/O COVID-19 04/24/2020 04/25/2020 04/27/2020 7:01 AM NATIONAL SALES TRAINER R/O COVID-19 04/27/2021 05/02/2021 05/04/2021 1:16 AM NATIONAL SALES TRAINER documented as of this encounter Care Teams Resistor Coater Relationship Specialty Start Date End Date Eldon Koehler MD PCP - General 10/06/07 documented as of this encounter
--- OUTSIDE RECORDS SUMMARY | 2024-09-29 15:06 | XMS_ITS | Encounter Summary ---
Author Organization [facility] Address [address] [place] [address] Care Team Providers Care Embroidery Designer Name Role Phone Giselle Kelley MD Primary Care Provider [phone] Encounter Details Date Type Department Care Team (Late st Contact Info) Description 12/17/2006 Orders Only [facility] Internal Medicine [address] [address] Giselle Kelley MD [address] [place] [address] Social History Tobacco Use Types Packs/Day Years Used Date Smoking Tobacco: Never Assessed Comments Unknown Sex and Gender Information Value Date Recorded Sex Assigned at Not on file Legal Sex Female 3:04 AM TENNIS PLAYER Gender Identity Not on file Sexual Orientation Not on file documented as of this encounter Progress Notes * Giselle Kelley MD - 09/29/2007 11:57 AM CDT CENTRAL TEST SCHEDULING DATE: DEC 17, 2006 Note created by: Patty Espinoza E 03:45 p Patient Name : WINIFRED PIPER [address]: [address] [place] [address]. [address] D.O.B: 1950 SSN: [id number] Parent/Guardian if applicable: Work Phone: Patient Insurance: ID#: Group#: ORDER(S) #: [id number] mammo PLEASE SCHEDULE THE APPOINTMENT AT THE FOLLOWING LOCATION: [facility] [phone]. SPECIAL SCHEDULING INSTRUCTIONS: pt to schedule ORDERING PHYSICIAN: GISELLE KELLEY MD OFFICE TAPE KELLER OPERATOR & PHONE: Patty Espinoza E * Giselle [...] lab LAB ORDERS: 2 mo Order number: [id number] Test Ordered: COMPREHENSIVE METABOLIC PANEL & GFR 1112 Order number: [id number] Test Ordered: LIPID PANEL 1078 Order number: [id number] Test Ordered: TSH 1720 Order number: [id number] Test Ordered: FERRITIN 1715 Order number: [id number] Test Ordered: CBC W/ DIFFERENTIAL 3150 Order number: [id number] Test Ordered: MAMMOGRAM BI-LATERAL (2 VIEWS) 272.4-HYPERLIPIDEMIA [...] Description 02/04/2025 10:40 AM CDT Office Visit [facility] Primary Care [address] [place] [address] Giselle Kelley MD [address] [place] [address] [address] [place] [address] documented as of this encounter Visit Diagnoses Not on filedocumented in this encounter Additional Health Concerns Infection Onset Date Last Indicated Resolved Time R/O COVID-19 04/24/2020 04/25/2020 04/27/2020 7:01 AM TENNIS PLAYER R/O COVID-19 04/27/2021 05/02/2021 05/04/2021 1:16 AM TENNIS PLAYER documented as of this encounter Care Teams Embroidery Designer Relationship Specialty Start Date End Date Giselle Kelley MD PCP - General 10/06/07 documented as of this encounter
--- OUTSIDE RECORDS SUMMARY | 2024-09-29 15:06 | XMS_ITS | Clinical Summary ---
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 Gender Identity Female 01/31/2021 9:15 AM [...] on file Medical Devices Implanted Type Area Dredge Pipeman Device Identifier Shelf Expiration Date Model / Serial / Lot Jumo [id number] Aequalis 29mm Reverse Long Post Shoulder Baseplate Glenoid Sequeira - [id number] - [id number] Implanted:Qty: 1 on 11/02/2020 by Salomón Edmondson MD at [facility] [employer] [id number] 12/04/2022 [id number] / [id number] / Vibrow [id number] 36mm Reverse Ii Center Shoulder Sphere Glenoid Titanium - [id number] - [id number] Implanted:Qty: 1 on 11/02/2020 by Salomón Edmondson MD at [facility] [employer] [id number] 05/03/2024 [id number] / [id number] / Jumo [id number] Aequalis Reversed 4.5mm 20mm Compression Glenoid Screw Baseplate - [id number] Implanted:Qty: 1 on 11/02/2020 by Salomón Edmondson MD at [facility] [employer] [id number] / / 0 Jumo [id number] Aequalis Reversed 4.5mm 23mm Compression Glenoid Screw Baseplate - [id number] Implanted:Qty: 1 on 11/02/2020 by Salomón Edmondson MD at [facility] [employer] [id number] / / 0 [employer] [id number] Aequalis 4.5mm 38mm Lock Multidirectional Self Tap Shoulder Screw Latex Free - [id number] Implanted:Qty: 1 on 11/02/2020 by Salomón Edmondson MD at [facility] [employer] [facility] [id number] / / 0 [employer] [id number] Screw Bsplt 41mm 4.5mm Aequalis Shoulder Ti Lock - [id number] Implanted:Qty: 1 on 11/02/2020 by Salomón Edmondson MD at [facility] [employer] [facility] [id number] / / 0 T1 Visions [facility] [id number] Insert Perform 10 Deg [id number] - [id number] Implanted:Qty: 1 on 11/02/2020 by Salomón Edmondson MD at [facility] [employer] [facility] [id number] / / [id number] T1 Visions [facility] [id number] Stem Perform Sz 2 Plus Humeral - [id number] Implanted:Qty: 1 on 11/02/2020 by Salomón Edmondson MD at [facility] [employer] [facility] [id number] / / [id number] Insurance MEDICARE [facility] MEDICARE [facility] MEDICARE MEDICARE Advance Directives For more information, please contact: [phone] * Full Code (Latest Code Status on File) Date Activated Date Inactivated Comments 11/02/2020 6:21 PM 11/03/2020 7:12 PM Care Teams Railway Switchman Relationship Specialty Start Date End Date Eldno Koehler MD PCP - General Internal Medicine 08/04/20
--- OUTSIDE RECORDS SUMMARY | 2024-09-29 15:06 | XMS_ITS | Clinical Summary ---
Author Organization [facility] Address [address] [place] [address] Care Team Providers Care Carpenter Supervisor Name Role Phone Eldon Koehler MD Primary Care Provider [phone] Allergies Active Allergy Reactions Criticality Noted Date [...] taking.Reported on 07/27/2024 busPIRone (BUSPAR) 10 mg tabletIndications: Recurrent major [...] Additional Information Patient not taking.Reported on 07/27/2024 methylPREDNISolone (MEDROL DOSPACK) 4 mg Tablets, Dose Pack As directed 21 Tablet 07/04/19 Active Additional Information Patient not taking.Reported on 07/27/2024 pregabalin (LYRICA) 50 mg CapsuleIndications :Fibromyalgia take [...] daily. 85 Gram 3 02/16/20 24 Active methylPREDNISolone (MEDROL DOSPACK) 4 mg Tablets, Dose Pack As directed 21 Tablet 03/01/20 24 Active clotrimazole-betam ethasone (LOTRISONE) 1-0.05 % Cream Apply to affected area 2 times daily. 45 Gram 2 03/01/20 24 Active ketoconazole (NIZORAL) 2 % Shampoo Use daily 120 mL 1 03/01/20 24 Active benzonatate (TESSALON) 200 mg capsule Take 1 Capsule (200 mg) by mouth 3 times daily. 30 Capsule 1 06/22/19 25 Active tirzepatide (Mounjaro) 5 mg/0.5 mL Pen Injector Inject 0.5 mL (5 mg) by subcutaneous injection every 7 days. 6 mL 3 07/28/19 25 Active Active Problems Patient Care Coordination No te Formatting of this note migh t be different from the original. [facility]- dermatology [id number] 01/21/24 Problem Noted Date Diagnosed [...] Encounters Date Type Department Care Team Description 08/26/2024 Abstract [place] [address] [place] [phone] Eldon Koehler MD 08/26/2024 Orders Only [place] [address] [place] [phone] Provider, Abstract 08/06/2024 Telephone [place] [address] [place] [address] Eldon Koehler MD Provider Call 07/27/2024 9:40 AM CDT Office Visit [place] [address] [place] [address] Eldon Koehler MD Recurrent major depressive disorder, in partial remission (Primary Dx); Type 2 diabetes mellitus without complication, without long-term current use of insulin ([facility]); Other hyperlipidemia; Vitamin B12 deficiency (non anemic); Other specified hypothyroidism; Osteopenia of multiple sites; Other asthma; Vitamin D deficiency from Last 3 Months Immunizations Immunization Administration Dates Next Due (ADACEL/BOOSTRIX)(10 YR UP) TDAP VACCINE, 0.5ML, IM 03/13/2010 (PFIZER)(12 YR UP) COVID-19 VACCINE - EMERGENCY USE AUTHORIZATION, MRNA, [id number](PF) 30 MCG/0.3 ML IM SUSP 04/06/2021,07/29/2020,07/07/2020 (PNEUMOVAX [...] How often do you attend chur or yazidism services? 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 Gender Identity Not on file [...] Office Visit [facility] Primary Care [address] [place] [address] Eldon Koehler MD [address] [place] [address] [address] [place] [address] Health Maintenance Due Date Last [...] 07/03/2023, 07/09/2022, Additional history exists COVID-19 Vaccine (5 - 2023-2 5 season) 2024 02/15/2024, 04/06/2021, 07/29/2020, Additional history exists DIABETES: A1C (Auto Order) 07/03/202407/03, 07/03/2023, 07/09/2022, Additional history exists LDL CHOLESTEROL ANNUAL 07/03/2024 , 07/02/2022, 08/01/2021, Additional history exists OSTEOPOROSIS SCREENING 11/03/2024 11/04/2019, 2019 DIABETES ANNUAL FOOT EXAM 01/20/20252023, 01/01/2022, 12/05/2020 Traditional Medicare (ACO) A nnual Wellness Visit 01/21/2025 01/21/2024, 08/08/2021, 08/01/2020, Additional history exists BREAST CANCER SCREENING 06/18/2025 06/18/19, 11/18/2022, 11/18/2022, Additional history exists DIABETES ANNUAL RETINAL EXAM 08/02/2025, 12/05/2023, 11/20/2023, Additional history exists COLORECTAL SCREENING 08/08/2025 08/08/2020, 08/08/2020, 03/15/2015, Additional history exists Colorectal Cancer Screening 08/08/2025 ZOSTER VACCINE Completed 05/08/2018, 10/24/2017 PNEUMOCOCCAL VACCINE 50+ YEARS Completed 0 08/08/2021, 04/13/2018, 03/19/2017, Additional history exists INFLUENZA VACCINE Completed 01/21/2024, , 01/01/2022, Additional history exists Procedures Procedure Name Priority Date/Time Associated Diagnosis Comments NM BONE DENSITY Routine 08/06/2024 4:09 PM CDT HM DIABETES EYE EXAM Routine 08/02/2024 4:11 PM CDT MAMMO SCREEN BILAT W OR WO CAD Routine 06/18/2024 4:17 PM BRAKE OPERATOR HELPER LIPID PANEL Routine 07/03/2023 9:11 AM BRAKE OPERATOR HELPER Other hyperlipidemia HEMOGLOBIN A1C Routine 07/03/2023 9:11 AM BRAKE OPERATOR HELPER Type 2 diabetes mellitus without complication, unspecified whether buttermaker helper insulin use ([facility]) MICROALBUMIN/CREATI NINE RATIO, RANDOM UR Routine 07/02/2022 8:21 AM BRAKE OPERATOR HELPER COLONOSCOPY REPORT 08/08/2020 12 :38 PM CDT XR DEXA BONE DENSITY 2 SITES Routine 11/04/2019 from Last 3 Months or Most Recently Relevant to Health Maintenance Results * NM BONE DENSITY (08/06/2024 4:09 PM CDT) Anatomical Region Laterality Modality Nuclear Medicine us Abstract Provider NM ORDERABLES Edited Result - Final * HM DIABETES EYE EXAM (08/02/2024 4:11 PM CDT) us Abstract Provider HEALTH MAINTENANCE Edited Resu lt - Final [facility] CLIA# [id number] [address] [facility] [address] [place] [address] * MAMMO SCREEN BILAT W OR WO CAD (06/18/2024 4:17 PM BRAKE OPERATOR HELPER) Anatomical Region Laterality Modality Breast Bilateral Mammography Abstract Provider MAMMO ORDERABLES Edited Result - Final * (ABNORMAL) HEMOGLOBIN A1C (07/03/2023 9:11 AM BRAKE OPERATOR HELPER) HEMOGLOBIN A1C 5.7(H) <5.7 % of total Hgb [facility] Comment: For someone without known diabetes, [...] children. ESTIMATED AVERAGE GLUCOSE (MG/DL) 117 mg/dL [facility] ESTIMATED AVERAGE GLUCOSE (MMOL/L) 6.5 mmol/L [facility] Comment: This test was performed on the [employer] c8000 platform. Please be advised that [facility] will move hemoglobin A1c testing to the Eyad platform soon. In general, direct comparison of the results from different platforms is not recommended. FASTING:YES FASTING: YES Test Performed at: [facility] [address] [place] [address] Marty Thi Vo Blood 07/03/2023 9:11 AM BRAKE OPERATOR HELPER 07/03/2023 9:12 AM BRAKE OPERATOR HELPER Eldon Koehler MD CHEMISTRY ORDERABLES Final Re sult [facility] [phone] [place] [address] [place] [address] * (ABNORMAL) LIPID PANEL (07/03/2023 9:11 AM BRAKE OPERATOR HELPER) CHOLESTEROL 212(H) <200 mg/dL [facility] [...] LDL-C. Christopher KAISER et al. ERLIN. 2013;310(19): 3751-9355 (http://education.Bellybaloo/faq/JQS400) CHOL/HDL RATIO 4.4 <5.0 (calc) [facility] TOTAL NON-HDL CHOL(LDL+VLDL) 164(H) <130 mg/dL (calc) [facility] Comment: For patients with diabetes plus 1 major ASCVD risk factor, treating to a non-HDL-C goal of <100 mg/dL (LDL-C of <70 mg/dL) is considered a therapeutic option. Test Performed at: [facility] [address] [place] [address] Marty Duckworth MD Blood 07/03/2023 9:11 AM BRAKE OPERATOR HELPER 07/03/2023 9:12 AM BRAKE OPERATOR HELPER us Eldon Koehler MD CHEMISTRY ORDERABLES Final Re sult [facility] [phone] [facility] [address] [place] [address] * MICROALBUMIN/CREATININE RATIO, RANDOM UR (07/02/2022 8:21 AM BRAKE OPERATOR HELPER) Creatinine, Urine 207 20 - 275 mg/dL [...] category. FASTING:YES FASTING: YES Test Performed at: [facility] [address] [place] [address] Marty Duckworth MD 07/02/2022 8:21 AM BRAKE OPERATOR HELPER 07/02/2022 8:21 AM BRAKE OPERATOR HELPER us Eldon Koehler MD URINE ORDERABLES Final Result [facility] [phone] [facility] [address] [place] [address] * COLONOSCOPY REPORT (08/08/2020 12:38 PM CDT) Narrative Procedure Note Osei Sutton MD - 08/08/2020 12:38 PM CDT [facility] Endoscopy Patient Name: Winifred Rodriguez Procedure Date: [...] of Addenda: [address]; [place] [address] Osei Sutton MD GI PROCEDURE ORDERABLES Final R esult * XR DEXA BONE DENSITY 2 SITES (11/04/2019) Anatomical Region Laterality Modality Other Abstract Provider DIAGNOSTIC IMAGING ORDERABLES Final Result from Last 3 Months or Most Recently Relevant to Health Maintenance Insurance MEDICARE PART A AND B [facility] [id number] [place] [id number] RX [employer] RX Member Subscriber Plan / Payer (Ef fective 2015-Present) Name:Winifred Rodriguez Fredy Relation to Subscriber:Self Name:Winifred Rodriguez Payer ID:Not on file Group ID:[id number] Type:RX Medicare Part D Address: [place] Advance Directives For more information, please contact: [phone] * Full Code (Latest Code Status on [...] 10:22 AM 03/15/2015 4:14 PM Care Teams Carpenter Supervisor Relationship Specialty Start Date End Date Eldon Koehler MD PCP - General 10/06/07
[2024-09-29 15:34] VITALS: BP 141/83; PULSE 87; RESP 17; TEMP 36.5; O2SAT 100
--- NOTE | 2024-09-29 16:44 | ED_ITS ---
HPI - Extremity Injury (Lower) General Chief Complaint: Extremity Injury, Lower Stated Complaint: L LEG INJURY Time Seen by Provider: 09/29/24 16:43 Source: patient Mode of arrival: ambulatory Limitations: no limitations History of Present Illness HPI Narrative: 74 YEARS OLD WHITE FEMALE CAME TO THE ED COMPLAINING OF THE DOOR CLOSED ON HER LEFT LOWER LEG PRIOR TO ARRIVAL. SHE DENIES OTHER INJURIES. Related Data Home Medications ?Medication ?Instructions ?Recorded ?Confirmed ?Last Taken ?Type atorvastatin 20 mg tablet 20 mg PO DAILY 05/27/19 02/11/24 Unknown History duloxetine 60 mg capsule,delayed 60 mg PO DAILY 05/27/19 02/11/24 Unknown History release levothyroxine 150 mcg tablet 150 mcg PO DAILY 05/27/19 02/11/24 Unknown History omeprazole 20 mg capsule,delayed 20 mg PO DAILY 05/27/19 02/11/24 Unknown History release pregabalin 50 mg capsule (Lyrica) 50 mg PO DAILY 05/27/19 02/11/24 Unknown History ascorbate calcium (vitamin C) 500 500 mg PO BID 10/08/19 02/11/24 Unknown History mg tablet mecobalamin (vitamin B12) 1,000 1,500 mcg PO DAILY 10/08/19 02/11/24 Unknown History mcg chewable tablet celecoxib 200 mg capsule 200 mg PO DAILY 11/05/19 02/11/24 Unknown History cholecalciferol (vitamin D3) 25 20 mcg PO DAILY 11/05/19 02/11/24 Unknown History mcg (1,000 unit) tablet multivitamin (Daily Multi-Vitamin 2 tablet PO DAILY 11/05/19 02/11/24 Unknown History tablet) ezetimibe 10 mg-rosuvastatin 10 mg 1 tablet PO DAILY 05/08/21 02/11/24 Unknown History tablet bupropion HCl 150 mg tablet,12 hr 150 mg PO BID 02/11/24 02/11/24 Unknown History sustained-release metoprolol succinate 25 mg 25 mg PO DAILY 02/11/24 02/11/24 Unknown History tablet,extended release 24 hr tirzepatide 2.5 mg/0.5 mL 2.5 mg subcut WEEKLY 02/11/24 02/11/24 Unknown History subcutaneous pen injector (Shanika) Allergies Allergy/AdvReac Type Severity Reaction Status Date / Time clindamycin Allergy Unknown n/a Verified 05/21/25 15:02 codeine Allergy Unknown n/a Verified 09/29/24 15:02 nickel Allergy Unknown Verified 09/29/24 15:02 Review of Systems Review of Systems: All systems reviewed & are unremarkable except as noted in HPI and below PMFSH Past Medical History Medical History Rotator cuff tendinitis Arthritis Osteoporosis Depression Hypothyroidism Rotator cuff tear Acute pain of both knees Acute pain of right shoulder Adhesive capsulitis of right shoulder Allergic rhinitis, unspecified Body mass index (bmi) 36.0-36.9, adult (06/18/17) Body mass index (BMI) 45.0-49.9, adult (03/18/16) Complete tear of right rotator cuff DJD of AC (acromioclavicular) joint Fibromyalgia muscle pain Gastroesophageal reflux disease MURIEL (obstructive sleep apnea) Other chronic pain Pain in left knee Pes anserine bursitis Primary osteoarthritis of left knee Primary osteoarthritis of right knee Restless leg syndrome Surgical History Surgical History History of spinal fusion History of cholecystectomy Presence of left artificial knee joint Presence of right artificial knee joint Family History Family History Mother Carcinoma of colon, Onset Age: 86 Father , COPD,Congestive heart failure COPD (chronic obstructive pulmonary disease) Congestive heart failure (CHF) Arthritis Other Cerebrovascular accident Family history of alcoholism Social History Social History Smoking status: Never smoker Second hand tobacco smoke exposure: Yes Alcohol intake: current Exam Narrative: GENERAL APPEARANCE: WELL-DEVELOPED, WELL-NOURISHED SKIN: NORMAL COLOR HEAD: NORMOCEPHALIC, NONTRAUMATIC NECK: SUPPLE, NONTENDER CHEST AND RESPIRATORY: AIRWAY PATENT, NO RESPIRATORY DISTRESS, NO ACCESSORY MUSCLE USE HEART: REGULAR RATE/RHYTHM VASCULAR: NORMAL PERIPHERAL PULSES, NORMAL CAPILLARY REFILL. MUSCULOSKELETAL: LEFT LOWER LEG SHOWED SLIGHT BRUISES MID LEG MEDIALLY OTHERWISE NO LACERATION, NO SWELLING NO HARDENING OF THE LEG, NEUROLOGIC: ALERT AND ORIENTED ?3, Course Vital Signs Vital signs: Vital Signs Temperature 36.5 C 09/29/24 15:34 Pulse Rate 87 09/29/24 15:34 Respiratory Rate 17 09/29/24 15:34 Blood Pressure 141/83 H 09/29/24 15:34 Pulse Oximetry 100 09/29/24 15:34 Oxygen Delivery Room Air 09/29/24 15:34 Temperature 36.5 C 09/29/24 15:34 Pulse Rate 87 09/29/24 15:34 Respiratory Rate 17 09/29/24 15:34 Blood Pressure 141/83 H 09/29/24 15:34 Pulse Oximetry 100 09/29/24 15:34 Oxygen Delivery Room Air 09/29/24 15:34 MDM - Extremity Injury (Lower) MDM Narrative Medical decision making narrative: Impressions Tibia/Fibula X-Ray 09/29/24 17:08 IMPRESSION: No acute osseous abnormality left leg. Total knee arthroplasty. Differential Diagnosis Differential diagnosis: Likely other (FRACTURE VERSUS CONTUSION) Imaging Data Radiologist's impression: Impressions Tibia/Fibula X-Ray 09/29/24 17:08 IMPRESSION: No acute osseous abnormality left leg. Total knee arthroplasty. Critical Care Time Critical Care Time Critical Care Time: No Discharge Plan Discharge Clinical Impression: Contusion of left leg Patient Disposition: Home Condition: Stable Instructions: Contusion in Adults (ED) Additional Instructions: RETURN IF SYMPTOMS ARE WORSENING , CALL YOUR FAMILY PHYSICIAN FOR APPOINTMENT, TAKE TYLENOL, IBUPROFEN NEEDED FOR ACHES AND PAIN, CONTINUE HOME MEDICATIONS. ICE PACK 20 MINUTES/HOUR FOR THE NEXT 24 HOURS, KEEP LEG ELEVATED Patient Language: Maltese Prescriptions: No Action atorvastatin 20 mg tablet 20 mg PO DAILY levothyroxine 150 mcg tablet 150 mcg PO DAILY omeprazole 20 mg capsule,delayed release(DR/EC) 20 mg PO DAILY duloxetine 60 mg capsule,delayed release(DR/EC) 60 mg PO DAILY pregabalin [Lyrica] 50 mg capsule 50 mg PO DAILY celecoxib 200 mg capsule 200 mg PO DAILY Patient Comments: Not taking as of provided medication list 11/04/19 Rx Instructions: Not taking as of provided medication list 11/04/19 bupropion HCl 150 mg tablet sustained-release 12 hr 150 mg PO BID metoprolol succinate 25 mg tablet extended release 24 hr 25 mg PO DAILY Mounjaro 2.5 mg/0.5 mL Pen Injector 2.5 mg SUBCUT WEEKLY Rx Instructions: for 4 weeks clotrimazole 1 % cream 1 applic topical BID 14 Days Qty: 30 0RF mecobalamin (vitamin B12) 1,000 mcg tablet,chewable 1,500 mcg PO DAILY ascorbate calcium (vitamin C) 500 mg tablet 500 mg PO BID multivitamin [Daily Multi-Vitamin] Tablet 2 tablet PO DAILY cholecalciferol (vitamin D3) 25 mcg (1,000 unit) tablet 20 mcg PO DAILY ezetimibe-rosuvastatin 10-10 mg tablet 1 tablet PO DAILY ropinirole 2 mg tablet 2 mg PO QHS 90 Days Qty: 90 3RF Rx Instructions: Take 1 tablet by mouth with the 0.5mg tab 1-2 hours before bed. ropinirole 0.5 mg tablet See Rx Instructions .ROUTE .COMPLEX Qty: 90 3RF Dose Instruction: TAKE 1 TABLET BY MOUTH DAILY 1 TO 2 HOURS BEFORE BEDTIME WITH THE 2MG TABLET FOR A TOTAL DAILY DOSE OF 2.5MG Rx Instructions: TAKE 1 TABLET BY MOUTH DAILY 1 TO 2 HOURS BEFORE BEDTIME WITH THE 2MG TABLET FOR A TOTAL DAILY DOSE OF 2.5MG Follow-up/Referrals: Rodo,Eldon Canchola MD [Primary Care Provider] -
--- OUTSIDE RECORDS SUMMARY | 2024-09-29 17:15 | XMS_ITS | Encounter Summary ---
Author Organization [facility] Address [address] [place] [address] Care Team Providers Care Rn Lpn Lvn Name Role Phone Eldon Koehler MD Primary Care Provider [phone] Encounter Details Date Type Department Care Team (Late st Contact Info) Description 10/16/[address] [facility] Internal Medicine [address] [phone] Eldon Koehler MD [address] [place] [address] [address] [place] [address] Social History Tobacco Use Types Packs/Day Years Used Date Smoking Tobacco: Never Assessed Comments Unknown Sex and Gender Information Value Date Recorded Sex Assigned at Not on file Legal Sex Female 3:04 AM MOLASSES COLORING OPERATOR Gender Identity Not on file Sexual [...] Body Mass Index 39.16 06/08/2003 3:30 PM MOLASSES COLORING OPERATOR documented in this encounter Plan of Treatment Upcoming Encounters Date Type Department Care Team (Late st Contact Info) Description 02/04/2025 10:40 AM CDT Office Visit [facility] Primary Care [address] [place] [phone] Eldon Koehler MD [address] [place] [address] [address] [place] [phone] documented as of this encounter Visit Diagnoses Not on filedocumented in this encounter Additional Health Concerns Infection Onset Date Last Indicated Resolved Time R/O COVID-19 04/24/2020 04/25/2020 04/27/2020 7:01 AM MOLASSES COLORING OPERATOR R/O COVID-19 04/27/2021 05/02/2021 05/04/2021 1:16 AM MOLASSES COLORING OPERATOR documented as of this encounter Care Teams Rn Lpn Lvn Relationship Specialty Start Date End Date Eldon Koehler MD PCP - General 10/06/07 documented as of this encounter
--- OUTSIDE RECORDS SUMMARY | 2024-09-29 17:15 | XMS_ITS | Encounter Summary ---
Author Organization [facility] Address [address] [place] [address] Care Team Providers Care Meter Tester Name Role Phone Eldon Koehler MD Primary Care Provider [phone] Encounter Details Date Type Department Care Team (Late st Contact Info) Description 01/15/2006 Orders Only [facility] Internal Medicine [address] [address] Eldon Koehler MD [address] [place] [address] Social History Tobacco Use Types Packs/Day Years Used Date Smoking Tobacco: Never Assessed Comments Unknown Sex and Gender Information Value Date Recorded Sex Assigned at Not on file Legal Sex Female 3:04 AM TRAINING DEVELOPER Gender Identity Not on file Sexual [...] slightly LAB ORDERS: 3 mo Order number: [id number] Test Ordered: COMPREHENSIVE METABOLIC PANEL W/ GLOMERULAR FILTRATION RATE, ESTIMATED (EGFR) 07257 Order number: [id number] Test Ordered: LIPID PANEL 7600 Order number: [id number] Test Ordered: TSH 899 272.4-HYPERLIPIDEMIA cont med 311-DEPRESSION cont med 715.90-OSTEOARTHROSIS UNSPECIFIED celebrex prn RETURN VISIT : Patient instructed to return in 3 months. Electronically Signed by: Eldon Koehler MD on Sunday, January 15, 2006 documented in this encounter Plan of Treatment Upcoming Encounters Date Type Department Care Team (Late st Contact Info) Description 02/04/2025 10:40 AM CDT Office Visit [facility] Primary Care [place] [id number] Eldon Koehler MD [address] [place] [address] documented as of this encounter Visit Diagnoses Not on filedocumented in this encounter Additional Health Concerns Infection Onset Date Last Indicated Resolved Time R/O COVID-19 04/24/2020 04/25/2020 04/27/2020 7:01 AM TRAINING DEVELOPER R/O COVID-19 04/27/2021 05/02/2021 05/04/2021 1:16 AM TRAINING DEVELOPER documented as of this encounter Care Teams Meter Tester Relationship Specialty Start Date End Date lEdon Koehler MD PCP - General 10/06/07 documented as of this encounter
--- OUTSIDE RECORDS SUMMARY | 2024-09-29 17:15 | XMS_ITS | Encounter Summary ---
Author Organization [facility] Address [address] [place] [address] Care Team Providers Care Animal Geneticist Name Role Phone Eldon Koehler MD Primary Care Provider [phone] Encounter Details Date Type Department Care Team (Late Contact Info) Description 04/19/2005 Outpatient Historical [facility] Internal Medicine [address] [phone] Eldon Koehler MD [address] [place] [address] [address] [place] [address] Social History Tobacco Use Types Packs/Day Years Used Date Smoking Tobacco: Never Assessed Comments Unknown Sex and Gender Information Value Date Recorded Sex Assigned at Not on file Legal Sex Female 3:04 AM COURIER DRIVER Gender Identity Not on file Sexual Orientation Not on file documented as of this encounter Last Filed Vital Signs Vital Sign Reading Time Taken Comments Blood Pressure 130/80 04/19/2005 1:00 PM COURIER DRIVER Pulse - - Temperature - - Respiratory Rate - - Oxygen Saturation - - Inhaled Oxygen Concentration - - Weight 112.5 kg (248 lb) 04/19/2005 1:00 PM COURIER DRIVER Height - - Body Mass Index 38.84 06/08/2003 3:30 PM COURIER DRIVER documented in this encounter Plan of Treatment Upcoming Encounters Date Type Department Care Team (Late st Contact Info) Description 02/04/2025 10:40 AM CDT Office Visit [facility] Primary Care [address] [place] [phone] Eldon Koehler MD [address] [place] [address] [address] [place] [phone] documented as of this encounter Visit Diagnoses Not on filedocumented in this encounter Additional Health Concerns Infection Onset Date Last Indicated Resolved Time R/O COVID-19 04/24/2020 04/25/2020 04/27/2020 7:01 AM COURIER DRIVER R/O COVID-19 04/27/2021 05/02/2021 05/04/2021 1:16 AM COURIER DRIVER documented as of this encounter Care Teams Animal Geneticist Relationship Specialty Start Date End Date Eldon Koehler MD PCP - General 10/06/07 documented as of this encounter
--- OUTSIDE RECORDS SUMMARY | 2024-09-29 17:15 | XMS_ITS | Clinical Summary ---
Author Organization [facility] Address [address] [place] [address] Phone Care Team Providers Care Machinist Automotive Name Role Phone Eldon Koehler MD Primary Care Provider [phone] Medications atorvastatin (LIPITOR) 20 MG Tablet 12/30/2023 [...] complete this topic Insurance MEDICARE Care Teams Machinist Automotive Relationship Specialty Start Date End Date Eldon Koehler MD [address] [place] [address] PCP - General 01/29/24
--- OUTSIDE RECORDS SUMMARY | 2024-09-29 17:15 | XMS_ITS | Encounter Summary ---
Author Organization [facility] Address [address] [place] [address] Care Team Providers Care Skimmer Name Role Phone Eldon Koehler MD Primary Care Provider [phone] Encounter Details Date Type Department Care Team (Late st Contact Info) Description 12/30/2006 Orders Only [facility] Internal Medicine [address] [address] Eldon Koehler MD [address] [place] [address] Social History Tobacco Use Types Packs/Day Years Used Date Smoking Tobacco: Never Assessed Comments Unknown Sex and Gender Information Value Date Recorded Sex Assigned at Not on file Legal Sex Female 3:04 AM MOBILE SERVICE RV TECHNICIAN Gender Identity Not on file Sexual Orientation Not on file documented as of this encounter Progress Notes * Eldon Koehler MD - 09/29/2007 1:43 PM CDT TIME:10:05 am PATIENT`S HOME PHONE: PATIENT`S WORK PHONE: PATIENT`S INSURANCE: [employer] [facility] WHO TOOK THE CALL: Mitra Ward L GENERAL INFORMATION ALTERNATIVE PHONE NUMBER: [phone](call pt back) WHO CALLED: Patient called. Patient reports no known allergies. PHARMACY NUMBER: [phone] PROBLEMS: Seen in the office on 12/17/06. [...] Description 02/04/2025 10:40 AM CDT Office Visit [facility] Care [address] [phone] Eldon Koehler MD [address] [place] [phone] documented as of this encounter Visit Diagnoses Not on filedocumented in this encounter Additional Health Concerns Infection Onset Date Last Indicated Resolved Time R/O COVID-19 04/24/2020 04/25/2020 04/27/2020 7:01 AM MOBILE SERVICE RV TECHNICIAN R/O COVID-19 04/27/2021 05/02/2021 05/04/2021 1:16 AM MOBILE SERVICE RV TECHNICIAN documented as of this encounter Care Teams Skimmer Relationship Specialty Start Date End Date Eldon Koehler MD PCP - General 10/06/07 documented as of this encounter
--- OUTSIDE RECORDS SUMMARY | 2024-09-29 17:15 | XMS_ITS | Encounter Summary ---
Author Organization [facility] Address [address] [place] [address] Care Team Providers Care Allopathic Doctor Name Role Phone Eldon Koehler MD Primary Care Provider [phone] Encounter Details Date Type Department Care Team (Late st Contact Info) Description 10/19/2004 Outpatient Historical [facility] Internal Medicine [address] [phone] Eldon Koehler MD [address] [place] [address] [address] [place] [address] Social History Tobacco Use Types Packs/Day Years Used Date Smoking Tobacco: Never Assessed Comments Unknown Sex and Gender Information Value Date Recorded Sex Assigned at Not on file Legal Sex Female 3:04 AM INSURANCE UNDERWRITING ASSISTANT Gender Identity Not on file Sexual [...] Body Mass Index 39 06/08/2003 3:30 PM INSURANCE UNDERWRITING ASSISTANT documented in this encounter Plan of Treatment Upcoming Encounters Date Type Department Care Team (Late st Contact Info) Description 02/04/2025 10:40 AM CDT Office Visit [facility] Primary Care [address] [place] [phone] Eldon Koehler MD [address] [place] [address] [address] [place] [phone] documented as of this encounter Visit Diagnoses Not on filedocumented in this encounter Additional Health Concerns Infection Onset Date Last Indicated Resolved Time R/O COVID-19 04/24/2020 04/25/2020 04/27/2020 7:01 AM INSURANCE UNDERWRITING ASSISTANT R/O COVID-19 04/27/2021 05/02/2021 05/04/2021 1:16 AM INSURANCE UNDERWRITING ASSISTANT documented as of this encounter Care Teams Allopathic Doctor Relationship Specialty Start Date End Date Eldon Koehler MD PCP - General 10/06/07 documented as of this encounter
--- OUTSIDE RECORDS SUMMARY | 2024-09-29 17:15 | XMS_ITS | Encounter Summary ---
Author Organization [facility] Address [address] [place] [address] Care Team Providers Care Insurance Healthcare Representative Name Role Phone Giselle Kelley MD Primary Care Provider [phone] Encounter Details Date Type Department Care Team (Late st Contact Info) Description 12/17/2006 Orders Only [facility] Internal Medicine [address] [address] Giselle Kelley MD [address] [place] [address] Social History Tobacco Use Types Packs/Day Years Used Date Smoking Tobacco: Never Assessed Comments Unknown Sex and Gender Information Value Date Recorded Sex Assigned at Not on file Legal Sex Female 3:04 AM PIPELINE EXECUTIVE Gender Identity Not on file Sexual Orientation Not on file documented as of this encounter Progress Notes * Giselle Kelley MD - 09/29/2007 11:57 AM CDT CENTRAL TEST SCHEDULING DATE: DEC 17, 2006 Note created by: Patty Espinoza E 03:45 p Patient Name : WINIFRED PIPER [address]: [address] [place] [address]. [address] D.O.B: 1950 SSN: [id number] Parent/Guardian if applicable: Work Phone: Patient Insurance: ID#: Group#: ORDER(S) #: [id number] mammo PLEASE SCHEDULE THE APPOINTMENT AT THE FOLLOWING LOCATION: [facility] [phone]. SPECIAL SCHEDULING INSTRUCTIONS: pt to schedule ORDERING PHYSICIAN: GISELLE KELLEY MD OFFICE DOCTOR OF OPTOMETRY & PHONE: Patty Espinoza E * Giselle [...] lab LAB ORDERS: 2 mo Order number: [id number] Test Ordered: COMPREHENSIVE METABOLIC PANEL & GFR 1112 Order number: [id number] Test Ordered: LIPID PANEL 1078 Order number: [id number] Test Ordered: TSH 1720 Order number: [id number] Test Ordered: FERRITIN 1715 Order number: [id number] Test Ordered: CBC W/ DIFFERENTIAL 3150 Order number: [id number] Test Ordered: MAMMOGRAM BI-LATERAL (2 VIEWS) 272.4-HYPERLIPIDEMIA [...] Visit [facility] Primary Care [address] [place] [address] Giselle Kelley MD [address] [place] [address] [address] [place] [address] documented as of this encounter Visit Diagnoses Not on filedocumented in this encounter Additional Health Concerns Infection Onset Date Last Indicated Resolved Time R/O COVID-19 04/24/2020 04/25/2020 04/27/2020 7:01 AM PIPELINE EXECUTIVE R/O COVID-19 04/27/2021 05/02/2021 05/04/2021 1:16 AM PIPELINE EXECUTIVE documented as of this encounter Care Teams Insurance Healthcare Representative Relationship Specialty Start Date End Date Giselle Kelley MD PCP - General 10/06/07 documented as of this encounter
--- OUTSIDE RECORDS SUMMARY | 2024-09-29 17:15 | XMS_ITS | Encounter Summary ---
Author Organization [facility] Address [address] [place] [address] Care Team Providers Care Public Events Facilities Rental Manager Name Role Phone Eldon Koehler MD Primary Care Provider [phone] Encounter Details Date Type Department Care Team (Late st Contact Info) Description 06/05/2007 Orders Only [facility] Internal Medicine [address] [address] Eldon Koehler MD [address] [place] [address] Social History Tobacco Use Types Packs/Day Years Used Date Smoking Tobacco: Never Assessed Comments Unknown Sex and Gender Information Value Date Recorded Sex Assigned at Not on file Legal Sex Female 3:04 AM WEIGHER AND CHARGER Gender Identity Not on file Sexual Orientation [...] 244.9-HYPOTHYROIDISM contm ed LAB ORDERS: Order number: [id number] Test Ordered: COMPREHENSIVE METABOLIC PANEL & GFR 1112 Order number: [id number] Test Ordered: HEMOGLOBIN A1C 1814 Order number: [id number] Test Ordered: TSH 1720 Order number: [id number] Test Ordered: VITAMIN B12 LEVEL 1719 Order number: [id number] Test Ordered: SLEEP STUDY 272.4-HYPERLIPIDEMIA cont med, [...] 02/04/2025 10:40 AM CDT Office Visit [facility] [place] [address] Eldon Koehler MD [address] [place], [place] [phone] documented as of this encounter Visit Diagnoses Not on filedocumented in this encounter Additional Health Concerns Infection Onset Date Last Indicated Resolved Time R/O COVID-19 04/24/2020 04/25/2020 04/27/2020 7:01 AM WEIGHER AND CHARGER R/O COVID-19 04/27/2021 05/02/2021 05/04/2021 1:16 AM WEIGHER AND CHARGER documented as of this encounter Care Teams Public Events Facilities Rental Manager Relationship Specialty Start Date End Date Eldon Koehler MD PCP - General 10/06/07 documented as of this encounter
--- OUTSIDE RECORDS SUMMARY | 2024-09-29 17:15 | XMS_ITS | Encounter Summary ---
Author Organization [facility] Address [address] [place] [address] Care Team Providers Care Spring Machine Operator Name Role Phone Eldon Koehler MD Primary Care Provider [phone] Encounter Details Date Type Department Care Team (Late st Contact Info) Description 06/08/2003 Outpatient Historical [facility] Internal Medicine [address] [phone] Meliton Odonnell MD [address] [place] [address] Social History Tobacco Use Types Packs/Day Years Used Date Smoking Tobacco: Never Assessed Comments Unknown Sex and Gender Information Value Date Recorded Sex Assigned at Not on file Legal Sex Female 3:04 AM MINE SAFETY MANAGER Gender Identity Not on file Sexual Orientation Not on file documented as of this encounter Last Filed Vital Signs Vital Sign Reading Time Taken Comments Blood Pressure 130/70 06/08/2003 3:30 PM MINE SAFETY MANAGER Pulse - - Temperature - - Respiratory Rate - - Oxygen Saturation - - Inhaled Oxygen Concentration - - Weight 112 kg (247 lb) 06/08/2003 3:30 PM MINE SAFETY MANAGER Height 170.2 cm (5' 7 ) 06/08/2003 3:30 PM MINE SAFETY MANAGER Body Mass Index 38.69 06/08/2003 3:30 PM MINE SAFETY MANAGER documented in this encounter Plan of Treatment Upcoming Encounters Date Type Department Care Team (Late st Contact Info) Description 02/04/2025 10:40 AM CDT Office Visit [facility] Primary Care [facility] [address] [place] [address] [address] [place] [address] Eldon Koehler MD [address] [place] [address] [address] [place] [address] documented as of this encounter Visit Diagnoses Not on filedocumented in this encounter Additional Health Concerns Infection Onset Date Last Indicated Resolved Time R/O COVID-19 04/24/2020 04/25/2020 04/27/2020 7:01 AM MINE SAFETY MANAGER R/O COVID-19 04/27/2021 05/02/2021 05/04/2021 1:16 AM MINE SAFETY MANAGER documented as of this encounter Care Teams Spring Machine Operator Relationship Specialty Start Date End Date Eldon Koehler MD PCP - General 10/06/07 documented as of this encounter
--- OUTSIDE RECORDS SUMMARY | 2024-09-29 17:15 | XMS_ITS | Encounter Summary ---
Author Organization [facility] Address [address] [place] [address] Care Team Providers Care Print Graphic Designer Name Role Phone Eldon Koehler MD Primary Care Provider [phone] Encounter Details Date Type Department Care Team (Late st Contact Info) Description 05/21/2005 Orders Only [facility] Internal Medicine [address] [address] Eldon Koehler MD [address] [place] [address] [address] [place] [address] Social History Tobacco Use Types Packs/Day Years Used Date Smoking Tobacco: Never Assessed Comments Unknown Sex and Gender Information Value Date Recorded Sex Assigned at Not on file Legal Sex Female 3:04 AM PUBLIC RELATIONS DIRECTOR Gender Identity Not on file Sexual Orientation Not on file documented as of this encounter Plan of Treatment Upcoming Encounters Date Type Department Care Team (Late st Contact Info) Description 02/04/2025 10:40 AM CDT Office Visit [facility] Primary Care [address] [place] [address] Eldon Koehler MD [address] [place] [address] [address] [place] [address] documented as of this encounter Visit Diagnoses Not on filedocumented in this encounter Additional Health Concerns Infection Onset Date Last Indicated Resolved Time R/O COVID-19 04/24/2020 04/25/2020 04/27/2020 7:01 AM PUBLIC RELATIONS DIRECTOR R/O COVID-19 04/27/2021 05/02/2021 05/04/2021 1:16 AM PUBLIC RELATIONS DIRECTOR documented as of this encounter Care Teams Print Graphic Designer Relationship Specialty Start Date End Date Eldon Koehler MD PCP - General 10/06/07 documented as of this encounter
--- OUTSIDE RECORDS SUMMARY | 2024-09-29 17:15 | XMS_ITS | Encounter Summary ---
Author Organization [facility] Address [address] [place] [address] Care Team Providers Care Auto Service Writer Name Role Phone Eldon Koehler MD Primary Care Provider [phone] Encounter Details Date Type Department Care Team (Late st Contact Info) Description 07/20/2004 Outpatient Historical [facility] Internal Medicine [address] [address] Eldon Koehler MD [address] [place] [address] Social History Tobacco Use Types Packs/Day Years Used Date Smoking Tobacco: Never Assessed Comments Unknown Sex and Gender Information Value Date Recorded Sex Assigned at Not on file Legal Sex Female 3:04 AM SPOOLER OPERATOR Gender Identity Not on file Sexual Orientation Not on file documented as of this encounter Last Filed Vital Signs Vital Sign Reading Time Taken Comments Blood Pressure 130/70 07/20/2004 1:15 PM SPOOLER OPERATOR Pulse - - Temperature 36.9 C (98.4 F) 07/20/2004 1:15 PM SPOOLER OPERATOR Respiratory Rate - - Oxygen Saturation - - Inhaled Oxygen Concentration - - Weight 115.2 kg (254 lb) 07/20/2004 1:15 PM SPOOLER OPERATOR Height - - Body Mass Index 39.78 06/08/2003 3:30 PM SPOOLER OPERATOR documented in this encounter Plan of Treatment Upcoming Encounters Date Type Department Care Team (Late st Contact Info) Description 02/04/2025 10:40 AM CDT Office Visit [facility] Primary Care [facility] [address] [place] [address] [address] [place] [address] Eldon Koehler MD [address] [place] [address] [address] [place] [address] documented as of this encounter Visit Diagnoses Not on filedocumented in this encounter Additional Health Concerns Infection Onset Date Last Indicated Resolved Time R/O COVID-19 04/24/2020 04/25/2020 04/27/2020 7:01 AM SPOOLER OPERATOR R/O COVID-19 04/27/2021 05/02/2021 05/04/2021 1:16 AM SPOOLER OPERATOR documented as of this encounter Care Teams Auto Service Writer Relationship Specialty Start Date End Date Eldon Koehler MD PCP - General 10/06/07 documented as of this encounter
--- OUTSIDE RECORDS SUMMARY | 2024-09-29 17:15 | XMS_ITS | Encounter Summary ---
Author Organization [facility] Address [address] [place] [address] Care Team Providers Care Triage Rn Name Role Phone Eldon Koehler MD Primary Care Provider [phone] Encounter Details Date Type Department Care Team (Late st Contact Info) Description 03/02/2007 Outpatient Historical [facility] Internal Medicine [address] [phone] Eldon Koehler MD [address] [place] [address] [address] [place] [address] Social History Tobacco Use Types Packs/Day Years Used Date Smoking Tobacco: Never Assessed Comments Unknown Sex and Gender Information Value Date Recorded Sex Assigned at Not on file Legal Sex Female 3:04 AM SLOTTER OPERATOR Gender Identity Not on file Sexual [...] Body Mass Index 40.57 06/08/2003 3:30 PM SLOTTER OPERATOR documented in this encounter Plan of Treatment Upcoming Encounters Date Type Department Care Team (Late st Contact Info) Description 02/04/2025 10:40 AM CDT Office Visit [facility] Primary Care [address] [place] [phone] Eldon Koehler MD [address] [place] [address] [address] [place] [address] documented as of this encounter Visit Diagnoses Not on filedocumented in this encounter Additional Health Concerns Infection Onset Date Last Indicated Resolved Time R/O COVID-19 04/24/2020 04/25/2020 04/27/2020 7:01 AM SLOTTER OPERATOR R/O COVID-19 04/27/2021 05/02/2021 05/04/2021 1:16 AM SLOTTER OPERATOR documented as of this encounter Care Teams Triage Rn Relationship Specialty Start Date End Date Eldon Koehler MD PCP - General 10/06/07 documented as of this encounter
--- OUTSIDE RECORDS SUMMARY | 2024-09-29 17:15 | XMS_ITS | Encounter Summary ---
Author Organization [facility] Address [address] [place] [address] Care Team Providers Care It Help Desk Analyst Name Role Phone Eldon Koehler MD Primary Care Provider [phone] Encounter Details Date Type Department Care Team (Late st Contact Info) Description 06/05/2007 Outpatient Historical [facility] Internal Medicine [address] [address] Eldon Koehler MD [address] [place] [address] [address] [place] [address] Social History Tobacco Use Types Packs/Day Years Used Date Smoking Tobacco: Never Assessed Comments Unknown Sex and Gender Information Value Date Recorded Sex Assigned at Not on file Legal Sex Female 3:04 AM DIRECT CASTING OPERATOR Gender Identity Not on file Sexual Orientation Not on file documented as of this encounter Plan of Treatment Upcoming Encounters Date Type Department Care Team (Late st Contact Info) Description 02/04/2025 10:40 AM CDT Office Visit [facility] Primary Care [address] [place] [address] Eldon Koehler MD [address] [place] [address] [address] [place] [phone] documented as of this encounter Visit Diagnoses Not on filedocumented in this encounter Additional Health Concerns Infection Onset Date Last Indicated Resolved Time R/O COVID-19 04/24/2020 04/25/2020 04/27/2020 7:01 AM DIRECT CASTING OPERATOR R/O COVID-19 04/27/2021 05/02/2021 05/04/2021 1:16 AM DIRECT CASTING OPERATOR documented as of this encounter Care Teams It Help Desk Analyst Relationship Specialty Start Date End Date Eldon Koehler MD PCP - General 10/06/07 documented as of this encounter
--- OUTSIDE RECORDS SUMMARY | 2024-09-29 17:15 | XMS_ITS | Encounter Summary ---
Author Organization [facility] Address [address] [place] [address] Care Team Providers Care Rn Manager Name Role Phone Eldon Koehler MD Primary Care Provider [phone] Encounter Details Date Type Department Care Team (Late st Contact Info) Description 12/17/2006 Outpatient Historical [facility] Internal Medicine [address] [phone] Eldon Koehler MD [address] [place] [address] [address] [place] [address] Social History Tobacco Use Types Packs/Day Years Used Date Smoking Tobacco: Never Assessed Comments Unknown Sex and Gender Information Value Date Recorded Sex Assigned at Not on file Legal Sex Female 3:04 AM DIRECTOR ECONOMIC Gender Identity Not on file Sexual Orientation [...] Body Mass Index 39.63 06/08/2003 3:30 PM DIRECTOR ECONOMIC documented in this encounter Plan of Treatment Upcoming Encounters Date Type Department Care Team (Late st Contact Info) Description 02/04/2025 10:40 AM CDT Office Visit [facility] Primary Care [address] [place] [phone] Eldon Koehler MD [address] [place] [address] [address] [place] [address] documented as of this encounter Visit Diagnoses Not on filedocumented in this encounter Additional Health Concerns Infection Onset Date Last Indicated Resolved Time R/O COVID-19 04/24/2020 04/25/2020 04/27/2020 7:01 AM DIRECTOR ECONOMIC R/O COVID-19 04/27/2021 05/02/2021 05/04/2021 1:16 AM DIRECTOR ECONOMIC documented as of this encounter Care Teams Rn Manager Relationship Specialty Start Date End Date Eldon Koehler MD PCP - General 10/06/07 documented as of this encounter
--- OUTSIDE RECORDS SUMMARY | 2024-09-29 17:15 | XMS_ITS | Encounter Summary ---
Author Organization [facility] Address [address] [place] [address] Care Team Providers Care Oliver Filter Operator Name Role Phone Eldon Koehler MD Primary Care Provider Encounter Details Date Type Department Care Team (Late st Contact Info) Description 10/13/2003 Outpatient Historical [facility] Internal Medicine [address] [address] Eldon Koehler MD [address] [place] [address] [address] [place] [address] Social History Tobacco Use Types Packs/Day Years Used Date Smoking Tobacco: Never Assessed Comments Unknown Sex and Gender Information Value Date Recorded Sex Assigned at Not on file Legal Sex Female 3:04 AM NURSING HOME SOCIAL WORKER Gender Identity Not on file Sexual Orientation Not on file documented as of this encounter Plan of Treatment Upcoming Encounters Date Type Department Care Team (Late st Contact Info) Description 02/04/2025 10:40 AM CDT Office Visit [facility] Primary Care [address] [place] [address] Eldon Koehler MD [address] [place] [address] [address] [place] [address] documented as of this encounter Visit Diagnoses Not on filedocumented in this encounter Additional Health Concerns Infection Onset Date Last Indicated Resolved Time R/O COVID-19 04/24/2020 04/25/2020 04/27/2020 7:01 AM NURSING HOME SOCIAL WORKER R/O COVID-19 04/27/2021 05/02/2021 05/04/2021 1:16 AM NURSING HOME SOCIAL WORKER documented as of this encounter Care Teams Oliver Filter Operator Relationship Specialty Start Date End Date Eldon Koehler MD PCP - General 10/06/07 documented as of this encounter
--- OUTSIDE RECORDS SUMMARY | 2024-09-29 17:15 | XMS_ITS | Encounter Summary ---
Author Organization [facility] Address [address] [place] [address] Care Team Providers Care Wellness Nurse Rn Name Role Phone Eldon Koehler MD Primary Care Provider [phone] Encounter Details Date Type Department Care Team (Late st Contact Info) Description 06/05/2007 Outpatient Historical [facility] Internal Medicine [address] [address] Eldon Koehler MD [address] [place] [address] [address] [place] [address] Social History Tobacco Use Types Packs/Day Years Used Date Smoking Tobacco: Never Assessed Comments Unknown Sex and Gender Information Value Date Recorded Sex Assigned at Not on file Legal Sex Female 3:04 AM PHARMACEUTICAL COMPOUNDING SUPERVISOR Gender Identity Not on file Sexual Orientation Not on file documented as of this encounter Plan of Treatment Upcoming Encounters Date Type Department Care Team (Late st Contact Info) Description 02/04/2025 10:40 AM CDT Office Visit [facility] Primary Care [address] [place] [address] Eldon Koehler MD [address] [place] [address] [address] [place] [phone] documented as of this encounter Visit Diagnoses Not on filedocumented in this encounter Additional Health Concerns Infection Onset Date Last Indicated Resolved Time R/O COVID-19 04/24/2020 04/25/2020 04/27/2020 7:01 AM PHARMACEUTICAL COMPOUNDING SUPERVISOR R/O COVID-19 04/27/2021 05/02/2021 05/04/2021 1:16 AM PHARMACEUTICAL COMPOUNDING SUPERVISOR documented as of this encounter Care Teams Wellness Nurse Rn Relationship Specialty Start Date End Date Eldon Koehler MD PCP - General 10/06/07 documented as of this encounter
--- OUTSIDE RECORDS SUMMARY | 2024-09-29 17:15 | XMS_ITS | Encounter Summary ---
Author Organization [facility] Address [address] [place] [address] Care Team Providers Care Front Office Secretary Name Role Phone Eldon Koehler MD Primary Care Provider [phone] Encounter Details Date Type Department Care Team (Late st Contact Info) Description 07/30/2004 Outpatient Historical [facility] Internal Medicine [address] [address] Eldon Koehler MD [address] [place] [address] Social History Tobacco Use Types Packs/Day Years Used Date Smoking Tobacco: Never Assessed Comments Unknown Sex and Gender Information Value Date Recorded Sex Assigned at Not on file Legal Sex Female 3:04 AM MOBILE HOME LOT UTILITY WORKER Gender Identity Not on file Sexual Orientation Not on file documented as of this encounter Last Filed Vital Signs Vital Sign Reading Time Taken Comments Blood Pressure 130/80 07/30/2004 3:00 PM MOBILE HOME LOT UTILITY WORKER Pulse - - Temperature 36.9 C (98.4 F) 07/30/2004 3:00 PM MOBILE HOME LOT UTILITY WORKER Respiratory Rate - - Oxygen Saturation - - Inhaled Oxygen Concentration - - Weight 113.4 kg (250 lb) 07/30/2004 3:00 PM MOBILE HOME LOT UTILITY WORKER Height - - Body Mass Index 39.16 06/08/2003 3:30 PM MOBILE HOME LOT UTILITY WORKER documented in this encounter Plan of Treatment Upcoming Encounters Date Type Department Care Team (Late st Contact Info) Description 02/04/2025 10:40 AM CDT Office Visit [facility] Primary Care [facility] [address] [place] [address] [address] [place] [address] Eldon Koehler MD [address] [place] [address] [address] [place] [address] documented as of this encounter Visit Diagnoses Not on filedocumented in this encounter Additional Health Concerns Infection Onset Date Last Indicated Resolved Time R/O COVID-19 04/24/2020 04/25/2020 04/27/2020 7:01 AM MOBILE HOME LOT UTILITY WORKER R/O COVID-19 04/27/2021 05/02/2021 05/04/2021 1:16 AM MOBILE HOME LOT UTILITY WORKER documented as of this encounter Care Teams Front Office Secretary Relationship Specialty Start Date End Date Eldon Koehler MD PCP - General 10/06/07 documented as of this encounter
--- OUTSIDE RECORDS SUMMARY | 2024-09-29 17:15 | XMS_ITS | Encounter Summary ---
Author Organization [facility] Address [address] [place] [address] Care Team Providers Care Fitter / Welder Name Role Phone Eldon Koehler MD Primary Care Provider [phone] Encounter Details Date Type Department Care Team (Late st Contact Info) Description 01/28/2006 Orders Only [facility] Internal Medicine [address] [address] Eldon Koehler MD [address] [place] [address] Social History Tobacco Use Types Packs/Day Years Used Date Smoking Tobacco: Never Assessed Comments Unknown Sex and Gender Information Value Date Recorded Sex Assigned at Not on file Legal Sex Female 3:04 AM EXPORT DOCUMENTS CLERK Gender Identity Not on file Sexual Orientation Not on file documented as of this encounter Progress Notes * Eldon Koehler MD - 02/23/2008 6:10 PM CDT TIME:10:59 am PATIENT`S HOME PHONE: PATIENT`S WORK PHONE: PATIENT`S INSURANCE: Click Contact [facility] WHO TOOK THE CALL: Mitra Ward L GENERAL INFORMATION ALTERNATIVE PHONE NUMBER: [phone] WHO CALLED: Patient called. SECTION 1: REQUESTED [...] Office Visit [facility] [place] [address] Eldon Koehler MD [address] [place] [address] documented as of this encounter Visit Diagnoses Not on filedocumented in this encounter Additional Health Concerns Infection Onset Date Last Indicated Resolved Time R/O COVID-19 04/24/2020 04/25/2020 04/27/2020 7:01 AM EXPORT DOCUMENTS CLERK R/O COVID-19 04/27/2021 05/02/2021 05/04/2021 1:16 AM EXPORT DOCUMENTS CLERK documented as of this encounter Care Teams Fitter / Welder Relationship Specialty Start Date End Date Eldon Koehler MD PCP - General 10/06/07 documented as of this encounter
--- OUTSIDE RECORDS SUMMARY | 2024-09-29 17:15 | XMS_ITS | Encounter Summary ---
Author Organization [facility] Address [address] [place] [address] Care Team Providers Care Rn Internship Name Role Phone Eldon Koehler MD Primary Care Provider [phone] Encounter Details Date Type Department Care Team (Late st Contact Info) Description 01/15/2006 Outpatient Historical [facility] Internal Medicine [address] [phone] Eldon Koehler MD [address] [place] [address] [address] [place] [address] Social History Tobacco Use Types Packs/Day Years Used Date Smoking Tobacco: Never Assessed Comments Unknown Sex and Gender Information Value Date Recorded Sex Assigned at Not on file Legal Sex Female 3:04 AM BILLET ASSEMBLER Gender Identity Not on file Sexual [...] Body Mass Index 39.47 06/08/2003 3:30 PM BILLET ASSEMBLER documented in this encounter Plan of Treatment Upcoming Encounters Date Type Department Care Team (Late st Contact Info) Description 02/04/2025 10:40 AM CDT Office Visit [facility] Primary Care [address] [place] [phone] Eldon Koehler MD [address] [place] [address] [address] [place] [address] documented as of this encounter Visit Diagnoses Not on filedocumented in this encounter Additional Health Concerns Infection Onset Date Last Indicated Resolved Time R/O COVID-19 04/24/2020 04/25/2020 04/27/2020 7:01 AM BILLET ASSEMBLER R/O COVID-19 04/27/2021 05/02/2021 05/04/2021 1:16 AM BILLET ASSEMBLER documented as of this encounter Care Teams Rn Internship Relationship Specialty Start Date End Date Eldon Koehler MD PCP - General 10/06/07 documented as of this encounter
--- OUTSIDE RECORDS SUMMARY | 2024-09-29 17:15 | XMS_ITS | Encounter Summary ---
Author Organization [facility] Address [address] [place] [address] Care Team Providers Care Bolt Labeler Name Role Phone Eldon Koehler MD Primary Care Provider [phone] Encounter Details Date Type Department Care Team (Late st Contact Info) Description 07/10/2005 Outpatient [facility] Internal Medicine [address] [address] Eldon Koehler MD [address] [place] [address] Social History Tobacco Use Types Packs/Day Years Used Date Smoking Tobacco: Never Assessed Comments Unknown Sex and Gender Information Value Date Recorded Sex Assigned at Not on file Legal Sex Female 3:04 AM INTRANET SPECIALIST Gender Identity Not on file Sexual Orientation Not on file documented as of this encounter Last Filed Vital Signs Vital Sign Reading Time Taken Comments Blood Pressure 130/80 07/10/2005 1:45 PM INTRANET SPECIALIST Pulse - - Temperature 37.4 C (99.32 F) 07/10/2005 1:45 PM INTRANET SPECIALIST Respiratory Rate - - Oxygen Saturation - - Inhaled Oxygen Concentration - - Weight 113.4 kg (250 lb) 07/10/2005 1:45 PM INTRANET SPECIALIST Height - - Body Mass Index 39.16 06/08/2003 3:30 PM INTRANET SPECIALIST documented in this encounter Plan of Treatment Upcoming Encounters Date Type Department Care Team (Late st Contact Info) Description 02/04/2025 10:40 AM CDT Office Visit [facility] Primary Care [facility] [address] [place] [address] [address] [place] [address] Eldon Koehler MD [address] [place] [address] [address] [place] [address] documented as of this encounter Visit Diagnoses Not on filedocumented in this encounter Additional Health Concerns Infection Onset Date Last Indicated Resolved Time R/O COVID-19 04/24/2020 04/25/2020 04/27/2020 7:01 AM INTRANET SPECIALIST R/O COVID-19 04/27/2021 05/02/2021 05/04/2021 1:16 AM INTRANET SPECIALIST documented as of this encounter Care Teams Bolt Labeler Relationship Specialty Start Date End Date Eldon Koehler MD PCP - General 10/06/07 documented as of this encounter
--- OUTSIDE RECORDS SUMMARY | 2024-09-29 17:15 | XMS_ITS | Encounter Summary ---
Author Organization [facility] Address [address] [place] [address] Care Team Providers Care Cvicu Rn Name Role Phone Eldon Koehler MD Primary Care Provider [phone] Encounter Details Date Type Department Care Team (Late st Contact Info) Description 08/26/2006 Orders Only [facility] Internal Medicine [address] [address] Eldon Koehler MD [address] [place] [address] Social History Tobacco Use Types Packs/Day Years Used Date Smoking Tobacco: Never Assessed Comments Unknown Sex and Gender Information Value Date Recorded Sex Assigned at Not on file Legal Sex Female 3:04 AM PUBLIC ADDRESS SYSTEM INSTALLER Gender Identity Not on file Sexual Orientation [...] [facility] Primary Care [place] [address] Eldon Koehler MD [address] [place] [address] documented as of this encounter Visit Diagnoses Not on filedocumented in this encounter Additional Health Concerns Infection Onset Date Last Indicated Resolved Time R/O COVID-19 04/24/2020 04/25/2020 04/27/2020 7:01 AM PUBLIC ADDRESS SYSTEM INSTALLER R/O COVID-19 04/27/2021 05/02/2021 05/04/2021 1:16 AM PUBLIC ADDRESS SYSTEM INSTALLER documented as of this encounter Care Teams Cvicu Rn Relationship Specialty Start Date End Date Eldon Koehler MD PCP - General 10/06/07 documented as of this encounter
--- OUTSIDE RECORDS SUMMARY | 2024-09-29 17:15 | XMS_ITS | Encounter Summary ---
Author Organization [facility] Address [address] [place] [address] Care Team Providers Care Car Knocker Name Role Phone Eldon Koehler MD Primary Care Provider [phone] Encounter Details Date Type Department Care Team (Late st Contact Info) Description 08/26/2006 Outpatient Historical [facility] Internal Medicine [address] [address] Eldon Koehler MD [address] [place] [address] Social History Tobacco Use Types Packs/Day Years Used Date Smoking Tobacco: Never Assessed Comments Unknown Sex and Gender Information Value Date Recorded Sex Assigned at Not on file Legal Sex Female 3:04 AM MERCHANDISING EXECUTION MANAGER Gender Identity Not on file Sexual [...] Body Mass Index 40.1 06/08/2003 3:30 PM MERCHANDISING EXECUTION MANAGER documented in this encounter Plan of Treatment Upcoming Encounters Date Type Department Care Team (Late st Contact Info) Description 02/04/2025 10:40 AM CDT Office Visit [facility] Primary Care [address] [place] [phone] Eldon Koehler MD [address] [place] [address] [address] [place] [phone] documented as of this encounter Visit Diagnoses Not on filedocumented in this encounter Additional Health Concerns Infection Onset Date Last Indicated Resolved Time R/O COVID-19 04/24/2020 04/25/2020 04/27/2020 7:01 AM MERCHANDISING EXECUTION MANAGER R/O COVID-19 04/27/2021 05/02/2021 05/04/2021 1:16 AM MERCHANDISING EXECUTION MANAGER documented as of this encounter Care Teams Car Knocker Relationship Specialty Start Date End Date Eldon Koehler MD PCP - General 10/06/07 documented as of this encounter
--- OUTSIDE RECORDS SUMMARY | 2024-09-29 17:15 | XMS_ITS | Encounter Summary ---
Author Organization [facility] Address [address] [place] [address] Care Team Providers Care Lead Fabricator Name Role Phone Eldon Koehler MD Primary Care Provider [phone] Encounter Details Date Type Department Care Team (Late st Contact Info) Description 03/14/2004 Outpatient Historical [facility] Internal Medicine [address] [address] Eldon Koehler MD [address] [place] [address] Social History Tobacco Use Types Packs/Day Years Used Date Smoking Tobacco: Never Assessed Comments Unknown Sex and Gender Information Value Date Recorded Sex Assigned at Not on file Legal Sex Female 3:04 AM WELFARE INVESTIGATOR Gender Identity Not on file Sexual Orientation Not on file documented as of this encounter Last Filed Vital Signs Vital Sign Reading Time Taken Comments Blood Pressure 150/80 03/14/2004 2:30 PM WELFARE INVESTIGATOR Pulse - - Temperature 37.8 C (100.1 F) 03/14/2004 2:30 PM WELFARE INVESTIGATOR Respiratory Rate - - Oxygen Saturation - - Inhaled Oxygen Concentration - - Weight 115.2 kg (254 lb) 03/14/2004 2:30 PM WELFARE INVESTIGATOR Height - - Body Mass Index 39.78 06/08/2003 3:30 PM WELFARE INVESTIGATOR documented in this encounter Plan of Treatment Upcoming Encounters Date Type Department Care Team (Late st Contact Info) Description 02/04/2025 10:40 AM CDT Office Visit [facility] Primary Care [facility] [address] [place] [address] [address] [place] [phone] Eldon Koehler MD [address] [place] [address] [address] [place] [phone] documented as of this encounter Visit Diagnoses Not on filedocumented in this encounter Additional Health Concerns Infection Onset Date Last Indicated Resolved Time R/O COVID-19 04/24/2020 04/25/2020 04/27/2020 7:01 AM WELFARE INVESTIGATOR R/O COVID-19 04/27/2021 05/02/2021 05/04/2021 1:16 AM WELFARE INVESTIGATOR documented as of this encounter Care Teams Lead Fabricator Relationship Specialty Start Date End Date Eldon Koehler MD PCP - General 10/06/07 documented as of this encounter
--- OUTSIDE RECORDS SUMMARY | 2024-09-29 17:15 | XMS_ITS | Encounter Summary ---
Author Organization [facility] Address [address] [place] [address] Care Team Providers Care Nsh Teacher Name Role Phone Eldon Koehler MD Primary Care Provider [phone] Encounter Details Date Type Department Care Team (Late st Contact Info) Description 09/28/2003 Outpatient Historical [facility] Internal Medicine [address] [phone] Eldon Koehler MD [address] [place] [address] [address] [place] [address] Social History Tobacco Use Types Packs/Day Years Used Date Smoking Tobacco: Never Assessed Comments Unknown Sex and Gender Information Value Date Recorded Sex Assigned at Not on file Legal Sex Female 3:04 AM LOADER MACHINE Gender Identity Not on file Sexual Orientation [...] Body Mass Index 37.9 06/08/2003 3:30 PM LOADER MACHINE documented in this encounter Plan of Treatment Upcoming Encounters Date Type Department Care Team (Late st Contact Info) Description 02/04/2025 10:40 AM CDT Office Visit [facility] Primary Care [address] [place] [address] Eldon Koehler MD [address] [place] [address] [address] [place] [phone] documented as of this encounter Visit Diagnoses Not on filedocumented in this encounter Additional Health Concerns Infection Onset Date Last Indicated Resolved Time R/O COVID-19 04/24/2020 04/25/2020 04/27/2020 7:01 AM LOADER MACHINE R/O COVID-19 04/27/2021 05/02/2021 05/04/2021 1:16 AM LOADER MACHINE documented as of this encounter Care Teams Nsh Teacher Relationship Specialty Start Date End Date Eldon Koehler MD PCP - General 10/06/07 documented as of this encounter
--- OUTSIDE RECORDS SUMMARY | 2024-09-29 17:16 | XMS_ITS | Clinical Summary ---
Author Organization [facility] Address [address] [place] [address] Care Team Providers Care Shovel Handle Assembler Name Role Phone Eldon Koehler MD [...] mcg tablet Take 150 mcg by mouth extractor plant operator before breakfast [address] (CYMBALTA) [...] (09/05/2020): Added automatically from request for surgery [id number] Prediabetes 12/24/2019 Obesity (BMI 35.0-39.9 without comorbidity) [...] on file Legal Sex Female 11:01 PM RESEARCH/PROGRAM DIRECTOR Gender Identity Female 01/31/2021 9:15 AM [...] on file Medical Devices Implanted Type Area Senior Lead Project Manager Device Identifier Shelf Expiration Date Model / Serial / Lot Cardiovascular Systems [id number] Aequalis 29mm Reverse Long Post Shoulder Baseplate Glenoid Sequeira - [id number] - [id number] Implanted:Qty: 1 on 11/02/2020 by Salomón Edmondson MD at [facility] [employer] [id number] 12/04/2022 [id number] / [id number] / Streame[employer] [id number] 36mm Reverse Ii Center Shoulder Sphere Glenoid Titanium - [id number] - [id number] Implanted:Qty: 1 on 11/02/2020 by Salomón Edmondson MD at [facility] [employer] [id number] 05/03/2024 [id number] / [id number] / Cardiovascular Systems [id number] Aequalis Reversed 4.5mm 20mm Compression Glenoid Screw Baseplate - [id number] Implanted:Qty: 1 on 11/02/2020 by Salomón Edmondson MD at [facility] [employer] [id number] / / 0 Cardiovascular Systems [id number] Aequalis Reversed 4.5mm 23mm Compression Glenoid Screw Baseplate - [id number] Implanted:Qty: 1 on 11/02/2020 by Salomón Edmondson MD at [facility] [employer] [id number] / / 0 EEme, [employer] [id number] Aequalis 4.5mm 38mm Lock Multidirectional Self Tap Shoulder Screw Latex Free - [id number] Implanted:Qty: 1 on 11/02/2020 by Salomón Edmondson MD at [facility] [employer] [facility] [id number] / / 0 Tornier Inc [id number] Screw Bsplt 41mm 4.5mm Aequalis Shoulder Ti Lock - [id number] Implanted:Qty: 1 on 11/02/2020 by Salomón Edmondson MD at [facility] [employer] [facility] [id number] / / 0 CellControl [facility] [id number] Insert Perform 10 Deg [id number] - [id number] Implanted:Qty: 1 on 11/02/2020 by Salomón Edmondson MD at [facility] [employer] [facility] [id number] / / [id number] CellControl [facility] Dwx2ps Stem Perform Sz 2 Plus Humeral - [id number] Implanted:Qty: 1 on 11/02/2020 by Salomón Edmondson MD at [facility] [employer] [facility] [id number] / / [id number] Insurance MEDICARE [facility] MEDICARE [facility] MEDICARE MEDICARE Advance Directives For more information, please contact: [phone] * Full Code (Latest Code Status on File) Date Activated Date Inactivated Comments 11/02/2020 6:21 PM 11/03/2020 7:12 PM Care Teams Shovel Handle Assembler Relationship Specialty Start Date End Date Eldon Koehler MD PCP - General Internal Medicine 08/04/20
--- OUTSIDE RECORDS SUMMARY | 2024-09-29 17:16 | XMS_ITS | Clinical Summary ---
Author Organization [facility] Address [address] [place] [address] Care Team Providers Care Gravity Meter Operator Name Role Phone Eldon Koehler MD Primary Care Provider [phone] Allergies Active Allergy Reactions Criticality Noted Date [...] migh t be different from the original. [facility]- dermatology [id number] 01/21/24 Problem Noted [...] Type Department Care Team Description 08/26/2024 Abstract [place] [address] [place] [phone] Eldon Koehler MD 08/26/2024 Orders Only [place] [address] [facility] [address] [place] [phone] Provider, Abstract 08/06/2024 Telephone [place] [address] [facility] [address] [place] [address] Eldon Koehler MD Provider Call 07/27/2024 9:40 AM CDT Office Visit [place] [address] [place] [address] Eldon Koehler MD Recurrent major depressive disorder, in partial remission (Primary Dx); Type 2 diabetes mellitus without complication, without long-term current use of insulin ([facility]); Other hyperlipidemia; Vitamin B12 deficiency (non anemic); Other specified hypothyroidism; Osteopenia of multiple sites; Other asthma; Vitamin D deficiency from Last 3 Months Immunizations Immunization Administration Dates Next Due (ADACEL/BOOSTRIX)(10 YR UP) TDAP VACCINE, 0.5ML, IM 03/13/2010 (PFIZER)(12 YR UP) COVID-19 VACCINE - EMERGENCY USE AUTHORIZATION, MRNA, [id number]) 30 MCG/0.3 ML IM SUSP 04/06/2021,07/29/2020,07/07/2020 (PNEUMOVAX [...] How often do you attend chur or anabaptist services? More than 4 times [...] on file Legal Sex Female 3:04 AM MATERIALS ANALYST Gender Identity Not on file Sexual Orientation [...] Visit [facility] Primary Care [address] [place] [address] Eldon Koehler MD [address] [place] [address] [address] [place] [address] Health Maintenance Due Date Last [...] OR WO CAD Routine 06/18/2024 4:17 PM MATERIALS ANALYST LIPID PANEL Routine 07/03/2023 9:11 AM MATERIALS ANALYST Other hyperlipidemia HEMOGLOBIN A1C Routine 07/03/2023 9:11 AM MATERIALS ANALYST Type 2 diabetes mellitus without complication, unspecified whether rat exterminator insulin use ([facility]) MICROALBUMIN/CREATI NINE RATIO, RANDOM UR Routine 07/02/2022 8:21 AM MATERIALS ANALYST COLONOSCOPY REPORT 08/08/2020 12 :38 PM CDT [...] HEALTH MAINTENANCE Edited Resu lt - Final [facility] CLIA# [id number] [address] [facility] [address] [place] [address] * MAMMO SCREEN BILAT W OR WO CAD (06/18/2024 4:17 PM MATERIALS ANALYST) Anatomical Region Laterality Modality Breast Bilateral Mammography Abstract Provider MAMMO ORDERABLES Edited Result - Final * (ABNORMAL) HEMOGLOBIN A1C (07/03/2023 9:11 AM MATERIALS ANALYST) HEMOGLOBIN A1C 5.7(H) <5.7 % of total Hgb [facility] Comment: For someone without known diabetes, [...] children. ESTIMATED AVERAGE GLUCOSE (MG/DL) 117 mg/dL [facility] ESTIMATED AVERAGE GLUCOSE (MMOL/L) 6.5 mmol/L [facility] Comment: This test was performed on the Brown G[employer] Winder c8000 platform. Please be advised that [facility] will move hemoglobin A1c testing to the Eyad platform soon. In general, direct comparison of the results from different platforms is not recommended. FASTING:YES FASTING: YES Test Performed at: [facility] [address] [place] [address] Marty Thi Vo Blood 07/03/2023 9:11 AM MATERIALS ANALYST 07/03/2023 9:12 AM MATERIALS ANALYST Eldon Koehler MD CHEMISTRY ORDERABLES Final Re sult [facility] [phone] [facility] [address] [place] [phone] * (ABNORMAL) LIPID PANEL (07/03/2023 9:11 AM MATERIALS ANALYST) CHOLESTEROL 212(H) <200 mg/dL [facility] [...] LDL-C. Christopher KAISER et al. ERLIN. 2013;310(19): 8790-0837 (http://education.Epocrates/faq/AMF663) CHOL/HDL RATIO 4.4 <5.0 (calc) [facility] TOTAL NON-HDL CHOL(LDL+VLDL) 164(H) <130 mg/dL (calc) [facility] Comment: For patients with diabetes plus 1 major ASCVD risk factor, treating to a non-HDL-C goal of <100 mg/dL (LDL-C of <70 mg/dL) is considered a therapeutic option. Test Performed at: [facility] [address] [place] [address] Marty Duckworth MD Blood 07/03/2023 9:11 AM MATERIALS ANALYST 07/03/2023 9:12 AM MATERIALS ANALYST us Eldon Koehler MD CHEMISTRY ORDERABLES Final Re sult [facility] [phone] [facility] [address] [place] [address] * MICROALBUMIN/CREATININE RATIO, RANDOM UR (07/02/2022 8:21 AM MATERIALS ANALYST) Creatinine, Urine 207 20 - 275 mg/dL [...] category. FASTING:YES FASTING: YES Test Performed at: [facility] [address] [place] [address] Marty Duckworth MD 07/02/2022 8:21 AM MATERIALS ANALYST 07/02/2022 8:21 AM MATERIALS ANALYST us Eldon Koehler MD URINE ORDERABLES Final Result [facility] [phone] [facility] [address] [place] [phone] * COLONOSCOPY REPORT (08/08/2020 12:38 PM CDT) Narrative Procedure Note Osei Sutton MD - 08/08/2020 12:38 PM CDT [facility] Endoscopy Patient Name: Winifred Rodriguez Procedure [...] of Addenda: [address]; [place] [address] Osei Sutton MD GI PROCEDURE ORDERABLES Final R esult * XR DEXA BONE DENSITY 2 SITES (11/04/2019) Anatomical Region Laterality Modality Other Abstract Provider DIAGNOSTIC IMAGING ORDERABLES Final Result from Last 3 Months or Most Recently Relevant to Health Maintenance Insurance MEDICARE PART A AND B [facility] [id number] [address] [id number] RX [employer] RX Member Subscriber Plan / Payer (Ef fective 2015-Present) Name:Winifred Rodriguez Fredy Relation to Subscriber:Self Name:Winifred Rodriguez Payer ID:Not on file Group ID:[id number] Type:RX Medicare Part D Address: [place] Advance Directives For more information, please contact: [phone] * Full Code (Latest Code Status on [...] 10:22 AM 03/15/2015 4:14 PM Care Teams Gravity Meter Operator Relationship Specialty Start Date End Date Eldon Koehler MD PCP - General 10/06/07
--- OUTSIDE RECORDS SUMMARY | 2024-09-29 17:16 | XMS_ITS | Referral Summary ---
Author Organization [facility] Address [address] [place] [address] Care Team Providers Care Psych Sales Specialist Name Role Phone Eldon Koehler MD [...] mcg tablet Take 150 mcg by mouth speech therapist early intervention before breakfast [address] (CYMBALTA) [...] (09/05/2020): Added automatically from request for surgery [id number] Prediabetes 12/24/2019 Obesity (BMI 35.0-39.9 without comorbidity) [...] on file Legal Sex Female 11:01 PM QUANTITATIVE RESEARCHER Gender Identity Female 01/31/2021 9:15 AM CDT [...] on file Medical Devices Implanted Type Area Reverberatory Furnace Supervisor Device Identifier Shelf Expiration Date Model / Serial / Lot Texert [id number] Aequalis 29mm Reverse Long Post Shoulder Baseplate Glenoid Sequeira - [id number] - [id number] Implanted:Qty: 1 on 11/02/2020 by Salomón Edmondson MD at [facility] [employer] [facility] [id number] 12/04/2022 [id number] / [id number] / Q Chip Inc [id number] 36mm Reverse Ii Center Shoulder Sphere Glenoid Titanium - [id number] - [id number] Implanted:Qty: 1 on 11/02/2020 by Salomón Edmondson MD at [facility] [employer] [id number] 05/03/2024 [id number] / [id number] / Silicone Arts LaboratoriesnideviantART Inc [id number] Aequalis Reversed 4.5mm 20mm Compression Glenoid Screw Baseplate - [id number] Implanted:Qty: 1 on 11/02/2020 by Salomón Edmondson MD at [facility] [employer] [facility] [id number] / / 0 Silicone Arts LaboratoriesnideviantART Inc [id number] Aequalis Reversed 4.5mm 23mm Compression Glenoid Screw Baseplate - [id number] Implanted:Qty: 1 on 11/02/2020 by Salomón Edmondson MD at [facility] [employer] [id number] / / 0 Tornier Inc [id number] Aequalis 4.5mm 38mm Lock Multidirectional Self Tap Shoulder Screw Latex Free - [id number] Implanted:Qty: 1 on 11/02/2020 by Salomón Edmondson MD at [facility] [employer] [id number] / / 0 Silicone Arts LaboratoriesnideviantART Inc [id number] Screw Bsplt 41mm 4.5mm Aequalis Shoulder Ti Lock - [id number] Implanted:Qty: 1 on 11/02/2020 by Salomón Edmondson MD at [facility] [email or web address] [facility] [id number] / / 0 [employer]x [employer] [id number] Insert Perform 10 Deg [id number] - [id number] Implanted:Qty: 1 on 11/02/2020 by Salomón Edmondson MD at [facility] [employer] [id number] / / [id number] [employer] Dwx2ps Stem Perform Sz 2 Plus Humeral - [id number] Implanted:Qty: 1 on 11/02/2020 by Salomón Edmondson MD at [facility] [employer] [id number] / / [id number] Insurance MEDICARE [facility] MEDICARE [facility] MEDICARE MEDICARE Advance Directives For more information, please contact: [phone] * Full Code (Latest Code Status on File) Date Activated Date Inactivated Comments 11/02/2020 6:21 PM 11/03/2020 7:12 PM Care Teams Psych Sales Specialist Relationship Specialty Start Date End Date Eldon Koehler MD PCP - General Internal Medicine 08/04/20
--- OUTSIDE RECORDS SUMMARY | 2024-09-29 17:16 | XMS_ITS | Encounter Summary ---
Author Organization [facility] Address 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 Gender Identity Not on file Sexual [...] lab LAB ORDERS: 3 mo Order number: [id number] Test Ordered: COMPREHENSIVE METABOLIC PANEL & GFR 1112 Order number: [id number] Test Ordered: LIPID PANEL 1078 Order number: [id number] Test Ordered: HEMOGLOBIN A1C 1814 Order number: [id number] Test Ordered: TSH 1720 PREVENTIVE COUNSELING The [...] Office Visit [facility] Primary Care [place] [address] Eldon Koehler MD [address] [place] [address] documented as of this encounter Visit Diagnoses Not on filedocumented in this encounter Additional Health Concerns Infection Onset Date Last Indicated Resolved Time R/O COVID-19 04/24/2020 04/25/2020 04/27/2020 7:01 AM CAR WASH SUPERVISOR R/O COVID-19 04/27/2021 05/02/2021 05/04/2021 1:16 AM CAR WASH SUPERVISOR documented as of this encounter Care Teams Adjustment Clerk Relationship Specialty Start Date End Date Eldon Koehler MD PCP - General 10/06/07 documented as of this encounter
--- OUTSIDE RECORDS SUMMARY | 2024-09-29 17:16 | XMS_ITS | Encounter Summary ---
Author Organization [facility] Address [address] [place] [address] Care Team Providers Care Vp Ad Products And Planning Name Role Phone Eldon Koehler MD Primary Care Provider Encounter Details Date Type Department Care Team (Late st Contact Info) Description 08/03/[address] 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 Primary Care [address] [place] [phone] Eldon Koehler MD [address] [place] [address] [address] [place] [address] documented as of this encounter Visit Diagnoses Not on filedocumented in this encounter Additional Health Concerns Infection Onset Date Last Indicated Resolved Time R/O COVID-19 04/24/2020 04/25/2020 04/27/2020 7:01 AM PRACTICE PERFORMANCE MANAGER R/O COVID-19 04/27/2021 05/02/2021 05/04/2021 1:16 AM PRACTICE PERFORMANCE MANAGER documented as of this encounter Care Teams Vp Ad Products And Planning Relationship Specialty Start Date End Date Eldon Koehler MD PCP - General 10/06/07 documented as of this encounter
--- OUTSIDE RECORDS SUMMARY | 2024-09-29 17:16 | XMS_ITS | Encounter Summary ---
Author Organization [facility] Address [address] [place] [address] Care Team Providers Care Sequencing Machine Operator Name Role Phone Eldon Koehler MD Primary Care Provider [phone] Encounter Details Date Type Department Care Team (Late st Contact Info) Description 01/27/2007 Orders Only [facility] Internal Medicine [address] [address] Eldon Koehler MD [address] [place] [address] [address] [place] [address] Social History Tobacco Use Types Packs/Day Years Used Date Smoking Tobacco: Never Assessed Comments Unknown Sex and Gender Information Value Date Recorded Sex Assigned at Not on file 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 Gender Identity Not on file Sexual Orientation Not on file documented as of this encounter Plan of Treatment Upcoming Encounters Date Type Department Care Team (Late st Contact Info) Description 02/04/2025 10:40 AM CDT Office Visit [facility] Primary Care [address] [place] [address] Eldon Koehler MD [address] [place] [address] [address] [place] [address] documented as of this encounter Visit Diagnoses Not on filedocumented in this encounter Additional Health Concerns Infection Onset Date Last Indicated Resolved Time R/O COVID-19 04/24/2020 04/25/2020 04/27/2020 7:01 AM SALES MERCHANDISE ASSOCIATE R/O COVID-19 04/27/2021 05/02/2021 05/04/2021 1:16 AM SALES MERCHANDISE ASSOCIATE documented as of this encounter Care Teams Sequencing Machine Operator Relationship Specialty Start Date End Date Eldon Koehler MD PCP - General 10/06/07 documented as of this encounter
--- OUTSIDE RECORDS SUMMARY | 2024-09-29 17:16 | XMS_ITS | Encounter Summary ---
Author Organization [facility] Address 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 PROBLEMS: Requip is [...] Visit [facility] [place] [address] Eldon Koehler MD [address] [place] [address] documented as of this encounter Visit Diagnoses Not on filedocumented in this encounter Additional Health Concerns Infection Onset Date Last Indicated Resolved Time R/O COVID-19 04/24/2020 04/25/2020 04/27/2020 7:01 AM CHILDREN'S ENTERTAINER R/O COVID-19 04/27/2021 05/02/2021 05/04/2021 1:16 AM CHILDREN'S ENTERTAINER documented as of this encounter Care Teams Campus Coordinator Relationship Specialty Start Date End Date Eldon Koehler MD PCP - General 10/06/07 documented as of this encounter
[2024-09-29 18:58] VITALS: BP 138/78; PULSE 85; RESP 18; O2SAT 99
== END 2024-09-29 19:01 | disposition home or self-care (01) ==
PROVIDERS: Emergency Provider Emergency Medicine; PCP Internal Medicine
DX: S80.12XA Contusion of left lower leg, initial encounter (principal); E03.9 Hypothyroidism, unspecified; G47.33 Obstructive sleep apnea (adult) (pediatric); G25.81 Restless legs syndrome; M17.0 Bilateral primary osteoarthritis of knee; M19.019 Primary osteoarthritis, unspecified shoulder; M81.0 Age-related osteoporosis without current pathological fracture; F32.A Depression, unspecified; Z98.1 Arthrodesis status; Z96.653 Presence of artificial knee joint, bilateral; Z90.49 Acquired absence of other specified parts of digestive tract; Z77.22 Contact with and (suspected) exposure to environmental tobacco smoke (acute) (chronic); W23.0XXA Caught, crushed, jammed, or pinched between moving objects, initial encounter
CPT/HCPCS: 73590; 99283

== ENCOUNTER 2025-02-03 10:46 | Emergency (ER) | payer MEDICARE, SELFPAY ==
--- NOTE | ~2025-02-03 | XR_ITS ---
Examination: XR knee RT min 4V Clinical History: RT knee Pain,swelling,bruising post fall yesterday. Comparison: None Technique: 4 views right knee Findings/impression: 1. Prosthesis intact without periprosthetic fracture or dislocation. 2. No joint effusion. Reviewed, dictated and finalized at location R.
--- NOTE | ~2025-02-03 | XR_ITS ---
Examination: XR shoulder RT min 2V, XR elbow RT min 3V Clinical History: pain post fall HX of replacement RT shoulder anteriorly Comparison: None Technique: 4 views right shoulder 4 views right elbow Findings/impression: Right shoulder: 1. Arthroplasty intact without dislocation or periprosthetic fracture. 2. No erosion of distal clavicle with AC joint widening. Right elbow: 1. No fracture or dislocation. Reviewed, dictated and finalized at location R.
--- NOTE | 2025-02-03 10:52 | ED.GENADULT ---
HPI - General Adult General Chief complaint: Unspecified Stated complaint: fall /multiple injuries Source: patient, RN notes reviewed and old records reviewed Mode of arrival: ambulatory Limitations: no limitations History of Present Illness HPI narrative: 74-year-old female presents to the [facility] with a trip and fall yesterday, Friday, approximately 130 while she was walking her dog patient reports right shoulder, right elbow and right knee pain. Has a small abrasion to the left eyebrow but denies loss of consciousness, blurry vision or change in vision. Denies any nausea or vomiting. Denies any chest pain or shortness of breath. Has taken [id number] Tylenol Onset (ago): day(s) (1) Related Data Home Medications ?Medication ?Instructions ?Recorded ?Confirmed ?Last Taken ?Type atorvastatin 20 mg tablet 20 mg PO DAILY 05/27/19 02/03/25 Unknown History duloxetine 60 mg capsule,delayed 60 mg PO DAILY 05/27/19 02/03/25 Unknown History release levothyroxine 150 mcg tablet 150 mcg PO DAILY 05/27/19 02/03/25 Unknown History omeprazole 20 mg capsule,delayed 20 mg PO DAILY 05/27/19 02/03/25 Unknown History release pregabalin 50 mg capsule (Lyrica) 50 mg PO DAILY 05/27/19 02/03/25 Unknown History ascorbate calcium (vitamin C) 500 500 mg PO BID 10/08/19 02/03/25 Unknown History mg tablet mecobalamin (vitamin B12) 1,000 1,500 mcg PO DAILY 10/08/19 02/03/25 Unknown History mcg chewable tablet celecoxib 200 mg capsule 200 mg PO DAILY 11/05/19 02/03/25 Unknown History cholecalciferol (vitamin D3) 25 20 mcg PO DAILY 11/05/19 02/03/25 Unknown History mcg (1,000 unit) tablet multivitamin (Daily Multi-Vitamin 2 tablet PO DAILY 11/05/19 02/03/25 Unknown History tablet) bupropion HCl 150 mg tablet,12 hr 150 mg PO BID 02/11/24 02/03/25 Unknown History sustained-release metoprolol succinate 25 mg 25 mg PO DAILY 02/11/24 02/03/25 Unknown History tablet,extended release 24 hr Allergies Allergy/AdvReac Type Severity Reaction Status Date / Time clindamycin Allergy Unknown n/a Verified 02/03/25 10:51 codeine Allergy Unknown n/a Verified 02/03/25 10:51 nickel Allergy Unknown Verified 02/03/25 10:51 Review of Systems Review of Systems: All systems reviewed & are unremarkable except as noted in HPI and below Constitutional: Constitutional: Reports no additional constitutional complaints ENT: Reports system reviewed and no additional complaints, except as documented Cardiovascular: Cardiovascular: Reports no additional cardiovascular complaints, Denies chest pain and Denies dyspnea Respiratory: Respiratory: Reports no additional respiratory complaints, Denies chest congestion, Denies cough and Denies dyspnea Musculoskeletal: Musculoskeletal: Reports as per HPI Integumentary/Breasts: Skin/Breast: Reports system reviewed and no additional complaints, except as docu PMFSH Past Medical History Medical History Rotator cuff tendinitis Arthritis Osteoporosis Depression Hypothyroidism Rotator cuff tear Acute pain of both knees Acute pain of right shoulder Adhesive capsulitis of right shoulder Allergic rhinitis, unspecified Body mass index (bmi) 36.0-36.9, adult (06/18/17) Body mass index (BMI) 45.0-49.9, adult (03/18/16) Complete tear of right rotator cuff DJD of AC (acromioclavicular) joint Fibromyalgia muscle pain Gastroesophageal reflux disease MURIEL (obstructive sleep apnea) Other chronic pain Pain in left knee Pes anserine bursitis Primary osteoarthritis of left knee Primary osteoarthritis of right knee Restless leg syndrome Surgical History Surgical History History of spinal fusion History of cholecystectomy Presence of left artificial knee joint Presence of right artificial knee joint Family History Family History Mother Carcinoma of colon, Onset Age: 86 Father , COPD,Congestive heart failure COPD (chronic obstructive pulmonary disease) Congestive heart failure (CHF) Arthritis Other Cerebrovascular accident Family history of alcoholism Social History Social History Smoking status: Never smoker Second hand tobacco smoke exposure: Yes Alcohol intake: current Comments At the time of my signature, I reviewed and agree with the nursing past medical, surgical, social, and family history. There is no relevant family history pertinent to the patient complaint. Exam Const: General: cooperative, healthy appearing, comfortable, no acute distress, well developed, alert and well nourished Nutritional Appearance: well nourished Orientation/consciousness: patient oriented x3 Limitations: no limitations HENMT: Head: normal to inspection Ears: hearing grossly normal bilaterally and external ears normal Eyes: General: appearance normal, both eyes and all related structures Alignment and Position: alignment normal Neck: Neck: normal visual inspection, full ROM, no lymphadenopathy and no meningeal signs Chest: Chest palpation & inspection: normal inspection of the chest Resp: Effort & Inspection: normal respiratory effort and able to speak in complete sentences Auscultation: clear to auscultation bilaterally, no crackles, no rales, no rhonchi and no wheezes Cardio: Rate: regular rate Skin: General skin exam: normal color and no rashes or lesions noted Neuro: General: patient oriented x3, gait normal, moves all extremities and no meningeal signs Cognition (Neuro): normal cognition Speech: normal speech Gait exam (Neuro): Normal gait present Extrem: General: normal to inspection, full ROM, capillary refill normal and normal gait Right upper extremity: shoulder/upper arm tenderness and normal ROM; no swelling and elbow/forearm tenderness, swelling, normal ROM and ecchymosis Right lower extremity: knee Details: tenderness, swelling, normal ROM and ecchymosis Psych: Appearance: grossly normal and well kempt Mental Status: mental status grossly normal Speech and movement: Normal speech and movement present and Clear speech present Affect: normal affect Attitude: cooperative Course Course Level of Care: Express Care Visit Vital Signs Vital signs: Vital Signs Temperature 97.9 F 02/03/25 11:01 Pulse Rate 101 H 02/03/25 11:01 Respiratory Rate 16 02/03/25 11:01 Blood Pressure 114/62 02/03/25 11:01 Pulse Oximetry 100 02/03/25 11:01 Oxygen Delivery Room Air 02/03/25 11:01 Temperature 97.9 F 02/03/25 11:01 Pulse Rate 101 H 02/03/25 11:01 Respiratory Rate 16 02/03/25 11:01 Blood Pressure 114/62 02/03/25 11:01 Pulse Oximetry 100 02/03/25 11:01 Oxygen Delivery Room Air 02/03/25 11:01 Reviewed Medical Decision Making MDM Narrative Medical decision making narrative: Patient sitting in exam room. Patient is nontoxic, vitals stable. Patient presents with a trip and fall yesterday. X-rays for right shoulder, right elbow, right knee are negative. Discussed [id number] treatment plan. Patient verbalized understanding. Discharge instructions reviewed with patient, as well as provided in writing per nursing staff. The instructions also include specific and strict return/GO TO THE ER as well as f/u information. All questions have been answered, and the patient deny any further questions with discharge and discharge plan. Some parts of this dictation were generated by voice recognition software and may contain typographical and/or grammatical inaccuracies. Differential Diagnosis Differential Diagnosis: Contusion, fracture Medical Records Medical records reviewed: Yes I reviewed the external patient's medical records. Vital Signs Vital Signs: Vital Signs Temperature 97.9 F 02/03/25 11:01 Pulse Rate 101 H 02/03/25 11:01 Respiratory Rate 16 02/03/25 11:01 Blood Pressure 114/62 02/03/25 11:01 Pulse Oximetry 100 02/03/25 11:01 Oxygen Delivery Room Air 02/03/25 11:01 Temperature 97.9 F 02/03/25 11:01 Pulse Rate 101 H 02/03/25 11:01 Respiratory Rate 16 02/03/25 11:01 Blood Pressure 114/62 02/03/25 11:01 Pulse Oximetry 100 02/03/25 11:01 Oxygen Delivery Room Air 02/03/25 11:01 Reviewed Lab Data Lab results reviewed: Yes I reviewed the patient's lab results. Labs: Reviewed Imaging Data Radiologist's impression: Examination: XR shoulder RT min 2V, XR elbow RT min 3V Clinical History: pain post fall HX of replacement RT shoulder anteriorly Comparison: None Technique: 4 views right shoulder 4 views right elbow Findings/impression: Right shoulder: 1. Arthroplasty intact without dislocation or periprosthetic fracture. 2. No erosion of distal clavicle with AC joint widening. Right elbow: 1. No fracture or dislocation. Examination: XR knee RT min 4V Clinical History: RT knee Pain,swelling,bruising post fall yesterday. Comparison: None Technique: 4 views right knee Findings/impression: 1. Prosthesis intact without periprosthetic fracture or dislocation. 2. No joint effusion. Critical Care Time Critical Care Time Critical Care Time: No Discharge Plan Discharge Clinical Impression: Contusion of knee, right, Contusion of elbow, right, Right shoulder strain, Fall Patient Disposition: Home Condition: Stable Instructions: Antibiotic Form, Contusion in Adults (ED), Shoulder Pain (ED) Additional Instructions: Your Xrays did not show a fracture. Wear good supportive shoes at all times. Ice should be applied to help reduce swelling. It can be used for 20 to 30 minutes, every 2-3 hours while awake. Do not apply ice directly to your skin. You can alternate ibuprofen 600mg and Tylenol 650mg every 4 hours as needed for pain Please schedule a follow-up visit with your personal physician for further evaluation and treatment within 2 weeks especially if symptoms persist. For new or worsening symptoms go directly to the emergency room Patient Language: [place] Prescriptions: No Action atorvastatin 20 mg tablet 20 mg PO DAILY levothyroxine 150 mcg tablet 150 mcg PO DAILY omeprazole 20 mg capsule,delayed release(DR/EC) 20 mg PO DAILY duloxetine 60 mg capsule,delayed release(DR/EC) 60 mg PO DAILY pregabalin [Lyrica] 50 mg capsule 50 mg PO DAILY celecoxib 200 mg capsule 200 mg PO DAILY Patient Comments: Not taking as of provided medication list 11/04/19 Rx Instructions: Not taking as of provided medication list 11/04/19 bupropion HCl 150 mg tablet sustained-release 12 hr 150 mg PO BID metoprolol succinate 25 mg tablet extended release 24 hr 25 mg PO DAILY mecobalamin (vitamin B12) 1,000 mcg tablet,chewable 1,500 mcg PO DAILY ascorbate calcium (vitamin C) 500 mg tablet 500 mg PO BID multivitamin [Daily Multi-Vitamin] Tablet 2 tablet PO DAILY cholecalciferol (vitamin D3) 25 mcg (1,000 unit) tablet 20 mcg PO DAILY ropinirole 2 mg tablet 2 mg PO QHS 90 Days Qty: 90 3RF Rx Instructions: Take 1 tablet by mouth with the 0.5mg tab 1-2 hours before bed. Follow-up/Referrals: Rodo,Eldon Canchola MD [Primary Care Provider] - 2 Weeks Time of Disposition: 11:56
[2025-02-03 11:01] VITALS: BP 114/62; PULSE 101; RESP 16; TEMP 36.6; O2SAT 100
== END 2025-02-03 11:57 | disposition home or self-care (01) ==
PROVIDERS: Emergency Provider Nurse Practitioner; PCP Internal Medicine
DX: S46.911A Strain of unspecified muscle, fascia and tendon at shoulder and upper arm level, right arm, initial encounter (principal); S80.01XA Contusion of right knee, initial encounter; S50.01XA Contusion of right elbow, initial encounter; W19.XXXA Unspecified fall, initial encounter; Y93.K1 Activity, walking an animal; E03.9 Hypothyroidism, unspecified; M81.0 Age-related osteoporosis without current pathological fracture; M79.7 Fibromyalgia; K21.9 Gastro-esophageal reflux disease without esophagitis; G25.81 Restless legs syndrome; M17.0 Bilateral primary osteoarthritis of knee; F32.A Depression, unspecified; Z96.653 Presence of artificial knee joint, bilateral
CPT/HCPCS: 73030; 73080; 73564; 99214; G0463